=== PATIENT | female | born 1975 | race Caucasian/White ===

== ENCOUNTER → 2017-07-02 10:14 | Outpatient (CLI) | payer MEDICAID, SELFPAY ==
[2017-07-02 12:25] LABS: AST(SGOT) 26 U/L (15-37); Alanine Aminotransfer ALT/SGPT 49 U/L (13-56); Albumin, Serum 3.8 g/dL (3.2-5.0); Alkaline Phosphatase 92 U/L (45-117); Anion Gap 11 (5-15); BUN 15 mg/dL (7-18); BUN/Creat Ratio 20.7 RATIO (10-20); Bilirubin, Direct 0.08 mg/dL (0.00-0.30); Calcium,Total 9.1 mg/dL (8.5-10.1); Chloride 103 mmol/L (98-107); Cholesterol 125 mg/dL (200); Creatinine, Serum 0.72 mg/dL (0.55-1.02); EST Glomerular Filtration Rate 95 mL/min (>60); Est Glom Filt Rate - Afr Amer 115 mL/min (>60); Globulin 4.6 g/dL (2.2-4.2); Glucose 97 mg/dL (74-106); High Density Lipoprotein 24 mg/dL; Potassium 4.1 mmol/L (3.5-5.1); Protein, Total 8.4 g/dL (6.4-8.2); Sodium Level 137 mmol/L (136-145); Triglycerides 73 mg/dL; Very Low Density Lipoprotein 15 mg/dL (5-40)
[2017-07-02 14:20] LABS: Microalbumin,Random Urine 5.8 mg/L (NO RANGE EST.)
== END ==
PROVIDERS: Family Provider Family Medicine; PCP Family Medicine; Visit Provider Family Medicine
DX: E11.9 Type 2 diabetes mellitus without complications (principal)
CPT/HCPCS: 36415; 80048; 80061; 80076; 82043; 82570

== ENCOUNTER → 2017-10-24 08:55 | Outpatient (CLI) | payer MEDICAID, SELFPAY ==
--- NOTE | 2017-10-24 09:03 | RAD_ITS ---
STUDY: X-RAY - ABDOMEN/PELVIS REASON FOR EXAM: Female, 41 years old. Left upper quadrant pain. TECHNIQUE: AP supine and upright views of the abdomen and pelvis. COMPARISON: 01/31/2014 FINDINGS: There are surgical clips in the right upper quadrant, consistent with prior cholecystectomy. There are surgical clips in the pelvis, consistent with tubal ligation. There is no bowel obstruction. There is air and stool to the level of the rectum. There is no free air. The visualized osseous structures are within normal limits. RAD/Abd Inc Decub and/or Erect IMPRESSION: No bowel obstruction. Electronically Signed: Andrea Cosby, at 23:51 EDT Tel , Service support ,
[2017-10-24 09:59] LABS: Absolute Lymphocyte Count 4.52 X10^3/ul (0.83-4.51); Absolute Neutrophil Count 5.8 X10^3/uL (2.0-7.7); Basophil# 0.08 X10^3/uL; Basophil% 0.7 % (0-1); Eosinophil# 0.09 X10^3/uL; Eosinophils% 0.8 % (0-5); Hematocrit 41.2 % (37-47); Hemoglobin 13.7 g/dl (12.0-15.0); Lymphocyte # 4.52 X10^3/ul (4.0); Lymphocyte % 40.1 % (19-41); Mean Corp Hgb Conc 33.3 g/gl (32-36); Mean Corpuscular Hgb 26.7 pg (27.0-32.0); Mean Corpuscular Volume 80.2 fL (81-99); Mean Platelet Vol. 10.9 fl (6.2-12.0); Monocyte# 0.73 X10^3/uL; Monocyte% 6.5 % (0-10); Neutrophil # 5.78 X10^3/uL (2.7-7.7); Neutrophil % 51.2 % (47-70); Platelet Count 329 K/mm3 (150-450); RBC Distribution Width CV 14.3 % (11.6-14.6); RBC Distribution Width SD 40.9 fl (35.1-43.9); Red Blood Count 5.14 M/mm3 (4.2-5.4); White Blood Count 11.3 K/mm3 (4.4-11.0)
[2017-10-24 10:00] LABS: POSITIVE COUNT NO; POSITIVE DIFFERENTIAL NO; POSITIVE MORPHOLOGY NO
[2017-10-24 10:23] LABS: Anion Gap 11 (5-15); BUN 11 mg/dL (7-18); BUN/Creat Ratio 15.5 RATIO (10-20); Calcium,Total 8.8 mg/dL (8.5-10.1); Chloride 105 mmol/L (98-107); Creatinine, Serum 0.71 mg/dL (0.55-1.02); EST Glomerular Filtration Rate 97 mL/min (>60); Est Glom Filt Rate - Afr Amer 117 mL/min (>60); Glucose 98 mg/dL (74-106); Potassium 4.2 mmol/L (3.5-5.1); Sodium Level 139 mmol/L (136-145)
== END ==
PROVIDERS: Family Provider Family Medicine; PCP Family Medicine; Visit Provider Family Medicine
DX: R10.9 Unspecified abdominal pain (principal)
CPT/HCPCS: 36415; 74019; 80048; 85025

== ENCOUNTER → 2017-11-21 10:08 | Outpatient (CLI) | payer MEDICAID, SELFPAY ==
--- NOTE | 2017-11-21 10:11 | US_ITS ---
STUDY: THYROID ULTRASOUND REASON FOR EXAM: Female, 41 years old. Follow-up thyroid nodule, status post left thyroidectomy TECHNIQUE: Ultrasound evaluation of the thyroid was performed with real-time and static baxter-scale imaging. COMPARISON: Previous study of 10/01/2016 FINDINGS: RIGHT LOBE: The right lobe of the thyroid gland measures 4.9 x 2.3 x 2.1 cm. There is a homogeneous echotexture. There is a mixed echogenic overall hypoechoic nodule of the upper pole measuring 1.0 x 1.0 x 0.7 cm. There is moderate internal vascularity of this nodule. LEFT LOBE: The left thyroid lobe is not visualized in accordance with history of left thyroidectomy. ISTHMUS: The isthmus measures 4 mm . The regional lymph nodes are normal. US/Thyroid IMPRESSION: Status post left thyroidectomy. Mixed echogenic overall hypoechoic nodule of the upper pole of the right thyroid lobe measuring 1.0 x 1.0 x 0.7 cm, appearing similar to the previous study. Follow-up ultrasound in one year is recommended. Electronically Signed: Patel Iyer MD at 20:43 EDT , Service support ,
== END ==
PROVIDERS: Family Provider Family Medicine; PCP Family Medicine; Visit Provider Family Medicine
DX: E04.1 Nontoxic single thyroid nodule (principal)
CPT/HCPCS: 76536

== ENCOUNTER → 2017-12-31 10:28 | Outpatient (CLI) | payer MEDICAID, SELFPAY ==
[2017-12-31 12:05] LABS: Anion Gap 10 (5-15); BUN 10 mg/dL (7-18); BUN/Creat Ratio 14.4 RATIO (10-20); Chloride 104 mmol/L (98-107); Cholesterol 117 mg/dL (200); Creatinine, Serum 0.69 mg/dL (0.55-1.02); EST Glomerular Filtration Rate 100 mL/min (>60); Est Glom Filt Rate - Afr Amer 121 mL/min (>60); Glucose 139 mg/dL (74-106); High Density Lipoprotein 23 mg/dL; Sodium Level 136 mmol/L (136-145); Thyroid Stim Hormone (TSH) 1.83 uIU/mL (0.358-3.74); Triglycerides 95 mg/dL; Very Low Density Lipoprotein 19 mg/dL (5-40)
== END ==
PROVIDERS: Family Provider Family Medicine; PCP Family Medicine; Visit Provider Family Medicine
DX: E11.9 Type 2 diabetes mellitus without complications (principal); E04.1 Nontoxic single thyroid nodule
CPT/HCPCS: 36415; 80048; 80061; 84443

== ENCOUNTER → 2018-02-16 10:55 | Outpatient (CLI) | payer MEDICAID, SELFPAY | PROVIDERS: Family Provider Family Medicine; PCP Family Medicine; Visit Provider Nurse Practitioner Family | DX: R30.0 Dysuria (principal) | CPT/HCPCS: 87086; 87088; 87186 ==

== ENCOUNTER → 2018-07-13 13:06 | Outpatient (CLI) | payer MEDICAID, SELFPAY ==
--- NOTE | 2018-07-10 16:00 | LES_PTH ---
PATIENT: ANGLEA BUI LOC: [facility] U#:[id number] AGE/SX: 49/F ROOM: RE07/13/[address]: Dr. Luciano Nails MD : 1975 BED: DIS: SPEC #: [id number] RECD: 07/10/18 17:28 STATUS: RAY ALY #: [id number] JABIER: 07/10/18 16:[address]: Luciano Nails DEPT: SURGICAL PATHOLOGY RECD BY: Jose Daniel Martinez Tissues: Skin of head, NOS Procedures: Surgery Specimen Level IV HEADER OPERATION: Excision PRE-OP DIAGNOSIS: Suspicious skin lesion TISSUE SUBMITTED: Head lesion MICROSCOPIC DIAGNOSIS Skin lesion of head, biopsy: Consistent with benign fibroepithelial polyp. AM:gerber 07/14/18 MICROSCOPIC DESCRIPTION Slides are reviewed. GROSS DESCRIPTION Received in fixative is one container labeled with the patient's name and designated head lesion. The specimen consists of a piece of quesada-white skin measuring 0.3 x 0.2 x 0.1 cm. The entire specimen is submitted in one cassette. / SJ:rg 07/13/18 TC:5 CPT: 93933
== END ==
PROVIDERS: Family Provider Family Medicine; PCP Family Medicine; Referring Provider Family Medicine; Visit Provider Family Medicine
DX: L98.8 Other specified disorders of the skin and subcutaneous tissue (principal)
CPT/HCPCS: 88305

== ENCOUNTER → 2019-03-08 11:50 | Outpatient (CLI) | payer MEDICAID, SELFPAY ==
[2019-03-08 13:19] LABS: Potassium 3.2 mmol/L (3.5-5.1)
== END ==
PROVIDERS: Family Provider Family Medicine; PCP Family Medicine; Referring Provider Registered Nurse Nephrology; Visit Provider Registered Nurse Nephrology
DX: K90.9 Intestinal malabsorption, unspecified (principal)
CPT/HCPCS: 36415; 84132

== ENCOUNTER → 2019-04-19 09:37 | Outpatient (CLI) | payer MEDICAID, SELFPAY ==
[2019-04-19 12:12] LABS: Hemoglobin 13.5 g/dL (12.0-15.0); Mean Corp Hgb Conc 31.4 g/dL (32-36); Mean Corpuscular Hgb 27.2 pg (27.0-32.0); Mean Corpuscular Volume 86.5 fL (81-99); Mean Platelet Vol. 11.2 fl (6.2-12.0); Platelet Count 274 K/mm3 (150-450); RBC Distribution Width CV 14.9 % (11.6-14.6); Red Blood Count 4.97 M/mm3 (4.2-5.4)
[2019-04-19 12:26] LABS: Vitamin B12 1810 pg/mL (211-911)
[2019-04-19 13:10] LABS: ALB/GLOB Ratio 0.9 RATIO (0.9-2.4); AST(SGOT) 28 U/L (15-37); Alanine Aminotransfer ALT/SGPT 49 U/L (13-56); Albumin, Serum 3.6 g/dL (3.2-5.0); Alkaline Phosphatase 90 U/L (45-117); Anion Gap 6 (5-15); BUN 9 mg/dL (7-18); BUN/Creat Ratio 15.1 RATIO (10-20); Calcium,Total 8.8 mg/dL (8.5-10.1); Chloride 108 mmol/L (98-107); EST Glomerular Filtration Rate 118 mL/min (>60); Est Glom Filt Rate - Afr Amer 143 mL/min (>60); Ferritin 28 ng/mL (8-252); Globulin 3.8 g/dL (2.2-4.2); Glucose 89 mg/dL (74-106); Iron 45 ug/dL (50-170); Magnesium 2.1 mg/dL (1.6-2.6); Potassium 3.8 mmol/L (3.5-5.1); Protein, Total 7.4 g/dL (6.4-8.2); Sodium Level 140 mmol/L (136-145)
== END ==
PROVIDERS: Family Provider Family Medicine; PCP Family Medicine; Visit Provider Registered Nurse Nephrology
DX: G47.33 Obstructive sleep apnea (adult) (pediatric) (principal); Z99.89 Dependence on other enabling machines and devices; E61.2 Magnesium deficiency; E66.01 Morbid (severe) obesity due to excess calories; Z68.42 Body mass index [BMI] 45.0-49.9, adult; K90.9 Intestinal malabsorption, unspecified; E61.7 Deficiency of multiple nutrient elements
CPT/HCPCS: 36415; 80053; 82607; 82728; 82746; 83540; 83735; 84630; 85027

== ENCOUNTER → 2019-07-05 14:42 | Outpatient (CLI) | payer MEDICAID, SELFPAY ==
[2019-07-05 16:08] LABS: Hemoglobin 13.8 g/dL (12.0-15.0); Mean Corp Hgb Conc 33.7 g/dL (32-36); Mean Corpuscular Hgb 29.8 pg (27.0-32.0); Mean Corpuscular Volume 88.6 fL (81-99); Mean Platelet Vol. 11.2 fl (6.2-12.0); Platelet Count 289 K/mm3 (150-450); RBC Distribution Width CV 13.6 % (11.6-14.6); RBC Distribution Width SD 43.8 fl (35.1-43.9); Red Blood Count 4.63 M/mm3 (4.2-5.4); White Blood Count 10.2 K/mm3 (4.4-11.0)
[2019-07-05 16:27] LABS: Vitamin B12 1082 pg/mL (211-911); Vitamin D,25 Hydroxy 62.9 ng/mL
[2019-07-05 17:09] LABS: BUN 12 mg/dL (7-18); Creatinine, Serum 0.64 mg/dL (0.55-1.02); Glucose 80 mg/dL (74-106)
[2019-07-05 17:10] LABS: AST(SGOT) 20 U/L (15-37); Alanine Aminotransfer ALT/SGPT 27 U/L (13-56); Albumin, Serum 3.8 g/dL (3.2-5.0); Alkaline Phosphatase 87 U/L (45-117); Anion Gap 9 (5-15); BUN/Creat Ratio 18.7 RATIO (10-20); Calcium,Total 9.1 mg/dL (8.5-10.1); Chloride 109 mmol/L (98-107); Cholesterol 120 mg/dL (200); EST Glomerular Filtration Rate 108 mL/min (>60); Est Glom Filt Rate - Afr Amer 131 mL/min (>60); Ferritin 36 ng/mL (8-252); Globulin 3.9 g/dL (2.2-4.2); High Density Lipoprotein 38 mg/dL; Iron 47 ug/dL (50-170); Potassium 3.5 mmol/L (3.5-5.1); Protein, Total 7.7 g/dL (6.4-8.2); Sodium Level 142 mmol/L (136-145); Triglycerides 73 mg/dL; Very Low Density Lipoprotein 15 mg/dL (5-40)
[2019-07-08 11:30] LABS: Zinc, Plasma or Serum 81 ug/dL (56-134)
== END ==
PROVIDERS: PCP Family Medicine; Referring Provider Registered Nurse Nephrology; Visit Provider Registered Nurse Nephrology
DX: K90.9 Intestinal malabsorption, unspecified (principal); G47.33 Obstructive sleep apnea (adult) (pediatric); R53.83 Other fatigue; E61.7 Deficiency of multiple nutrient elements; K21.9 Gastro-esophageal reflux disease without esophagitis; E66.01 Morbid (severe) obesity due to excess calories; Z68.41 Body mass index [BMI] 40.0-44.9, adult
CPT/HCPCS: 36415; 80053; 80061; 82306; 82607; 82728; 82746; 83540; 83735; 84630; 85027

== ENCOUNTER → 2019-09-27 14:42 | Outpatient (CLI) | payer OTHER, SELFPAY ==
[2019-09-27 15:11] LABS: Hematocrit 41.8 % (37-47); Hemoglobin 13.7 g/dL (12.0-15.0); Mean Corp Hgb Conc 32.8 g/dL (32-36); Mean Corpuscular Hgb 30.2 pg (27.0-32.0); Mean Corpuscular Volume 92.1 fL (81-99); Mean Platelet Vol. 10.4 fl (6.2-12.0); Platelet Count 317 K/mm3 (150-450); RBC Distribution Width CV 12.6 % (11.6-14.6); RBC Distribution Width SD 42.5 fl (35.1-43.9); Red Blood Count 4.54 M/mm3 (4.2-5.4); White Blood Count 10.9 K/mm3 (4.4-11.0)
[2019-09-27 15:39] LABS: Ferritin 37 ng/mL (8-252); Iron 45 ug/dL (50-170)
== END ==
PROVIDERS: PCP Family Medicine; Referring Provider Registered Nurse Nephrology; Visit Provider Registered Nurse Nephrology
DX: E61.1 Iron deficiency (principal); K90.9 Intestinal malabsorption, unspecified
CPT/HCPCS: 36415; 82728; 83540; 85027

== ENCOUNTER → 2019-12-07 14:05 | Outpatient (CLI) | payer OTHER, MEDICAID, SELFPAY ==
--- NOTE | 2019-12-07 14:08 | BI_ITS ---
MAMMOGRAPHY - BILATERAL SCREENING 3-D TOMOSYNTHESIS REASON FOR EXAM: Female, 44 years old. Routine screening PERTINENT HISTORY: FM HX PAT GMA 40-50''S, LOST 115#(GASTRIC BYPASS SX , PT SAYS SHE HAS FELT A LUMP RT LATERAL BREAST THAT DR THOUGHT WAS FCB. TECHNIQUE: 2-D mammograms and 3-D Tomosynthesis of the breast (s) were performed. CAD was performed. COMPARISON: 2015 FINDINGS: The breast composition is composed of scattered fibroglandular density. Scattered benign calcifications are seen. No dense spiculated masses or suspicious microcalcifications are identified. No architectural distortion is identified. There is no skin thickening or retraction. There has been no significant change since the prior study. BI/SCREEN MAMM (CAD) W/EMRE BILAT IMPRESSION: No mammographic signs of malignancy. Routine yearly mammograms recommended. ASSESSMENT CATEGORY: BIRADS Category 2: Benign. A letter regarding these results will be sent to the patient by the facility within 30 days. FOLLOW UP RECOMMENDATION: Yearly follow up mammogram recommended. (A) Approximately 10% of breast cancers are not detected by mammography. A normal mammogram should not delay biopsy of a clinically suspicious abnormality. Electronically Signed: Yony Brooks MD at 17:16 EDT , Service support ,
== END ==
PROVIDERS: PCP Family Medicine; Referring Provider Family Medicine; Visit Provider Family Medicine
DX: Z12.31 Encounter for screening mammogram for malignant neoplasm of breast (principal)
CPT/HCPCS: 77063; 77067

== ENCOUNTER → 2019-12-30 06:37 | Outpatient (CLI) | payer OTHER, SELFPAY ==
[2019-12-30 08:13] LABS: Iron 89 ug/dL (50-170)
== END ==
PROVIDERS: PCP Family Medicine; Referring Provider Registered Nurse Nephrology; Visit Provider Registered Nurse Nephrology
DX: E61.1 Iron deficiency (principal); K90.9 Intestinal malabsorption, unspecified
CPT/HCPCS: 36415; 83540

== ENCOUNTER → 2020-03-03 07:58 | Outpatient (CLI) | payer OTHER, MEDICAID, SELFPAY ==
[2020-03-03 09:08] LABS: Hematocrit 45.7 % (37-47); Hemoglobin 15.2 g/dL (12.0-15.0); Mean Corp Hgb Conc 33.3 g/dL (32-36); Mean Corpuscular Hgb 30.8 pg (27.0-32.0); Mean Corpuscular Volume 92.7 fL (81-99); Mean Platelet Vol. 10.8 fl (6.2-12.0); Platelet Count 275 K/mm3 (150-450); RBC Distribution Width CV 12.3 % (11.6-14.6); RBC Distribution Width SD 41.9 fl (35.1-43.9); Red Blood Count 4.93 M/mm3 (4.2-5.4); White Blood Count 7.1 K/mm3 (4.4-11.0)
[2020-03-03 10:11] LABS: Vitamin B12 824 pg/mL (211-911); Vitamin D,25 Hydroxy 63.6 ng/mL
[2020-03-03 10:36] LABS: AST(SGOT) 11 U/L (15-37); Alanine Aminotransfer ALT/SGPT 21 U/L (13-56); Albumin, Serum 3.5 g/dL (3.2-5.0); Alkaline Phosphatase 73 U/L (45-117); Anion Gap 3 (5-15); BUN 11 mg/dL (7-18); Calcium,Total 8.6 mg/dL (8.5-10.1); Chloride 108 mmol/L (98-107); Cholesterol 132 mg/dL (200); Creatinine, Serum 0.52 mg/dL (0.55-1.02); EST Glomerular Filtration Rate 136 mL/min (>60); Est Glom Filt Rate - Afr Amer 165 mL/min (>60); Ferritin 86 ng/mL (8-252); Globulin 3.6 g/dL (2.2-4.2); Glucose 91 mg/dL (74-106); High Density Lipoprotein 48 mg/dL; Iron 101 ug/dL (50-170); Magnesium 2.2 mg/dL (1.6-2.6); Potassium 3.9 mmol/L (3.5-5.1); Protein, Total 7.1 g/dL (6.4-8.2); Sodium Level 139 mmol/L (136-145); Triglycerides 67 mg/dL; Very Low Density Lipoprotein 13 mg/dL (5-40)
[2020-03-09 05:49] LABS: Zinc, Plasma or Serum 69 ug/dL (56-134)
== END ==
PROVIDERS: PCP Family Medicine; Referring Provider Registered Nurse Nephrology; Visit Provider Registered Nurse Nephrology
DX: E61.1 Iron deficiency (principal); K90.9 Intestinal malabsorption, unspecified; E87.6 Hypokalemia; E61.2 Magnesium deficiency; E61.7 Deficiency of multiple nutrient elements; E66.01 Morbid (severe) obesity due to excess calories; Z68.42 Body mass index [BMI] 45.0-49.9, adult
CPT/HCPCS: 36415; 80053; 80061; 82306; 82607; 82728; 82746; 83540; 83735; 84630; 85027

== ENCOUNTER → 2020-04-10 22:17 | Outpatient (CLI) | payer OTHER, MEDICAID, SELFPAY | PROVIDERS: PCP Family Medicine; Referring Provider Internal Medicine Pulmonary Disease; Visit Provider Internal Medicine Pulmonary Disease | DX: G47.33 Obstructive sleep apnea (adult) (pediatric) (principal) | CPT/HCPCS: 95810 ==

== ENCOUNTER → 2020-12-08 07:04 | Outpatient (CLI) | payer OTHER, MEDICAID, SELFPAY ==
[2020-12-08 07:36] LABS: Hematocrit 45.4 % (37-47); Hemoglobin 14.9 g/dL (12.0-15.0); Mean Corp Hgb Conc 32.8 g/dL (32-36); Mean Corpuscular Hgb 30.2 pg (27.0-32.0); Mean Corpuscular Volume 92.1 fL (81-99); Mean Platelet Vol. 10.1 fl (6.2-12.0); Platelet Count 306 K/mm3 (150-450); RBC Distribution Width CV 12.1 % (11.6-14.6); RBC Distribution Width SD 41.2 fl (35.1-43.9); Red Blood Count 4.93 M/mm3 (4.2-5.4); White Blood Count 6.7 K/mm3 (4.4-11.0)
[2020-12-08 08:36] LABS: ALB/GLOB Ratio 1.1 RATIO (0.9-2.4); AST(SGOT) 19 U/L (15-37); Alanine Aminotransfer ALT/SGPT 30 U/L (13-56); Albumin, Serum 3.9 g/dL (3.2-5.0); Alkaline Phosphatase 72 U/L (45-117); Anion Gap 6 (5-15); BUN 9 mg/dL (7-18); BUN/Creat Ratio 19.2 RATIO (10-20); Calcium,Total 8.9 mg/dL (8.5-10.1); Chloride 106 mmol/L (98-107); Cholesterol 155 mg/dL (200); Creatinine, Serum 0.47 mg/dL (0.55-1.02); EST Glomerular Filtration Rate 154 mL/min (>60); Est Glom Filt Rate - Afr Amer 187 mL/min (>60); Ferritin 156 ng/mL (8-252); Globulin 3.7 g/dL (2.2-4.2); Glucose 94 mg/dL (74-106); High Density Lipoprotein 57 mg/dL; Iron 84 ug/dL (50-170); Potassium 3.9 mmol/L (3.5-5.1); Protein, Total 7.6 g/dL (6.4-8.2); Sodium Level 139 mmol/L (136-145); Triglycerides 82 mg/dL; Very Low Density Lipoprotein 16 mg/dL (5-40)
[2020-12-08 10:00] LABS: Vitamin B12 1516 pg/mL (211-911); Vitamin D,25 Hydroxy 77.1 ng/mL
[2020-12-13 20:26] LABS: Vitamin B1, Thiamine 165.6 nmol/L (66.5-200.0); Zinc, Plasma or Serum 104 ug/dL (44-115)
== END ==
PROVIDERS: PCP Family Medicine
DX: K90.89 Other intestinal malabsorption (principal); E61.7 Deficiency of multiple nutrient elements
CPT/HCPCS: 80053; 80061; 82306; 82607; 82728; 82746; 83540; 83735; 84425; 84630; 85027

== ENCOUNTER → 2020-12-18 15:33 | Outpatient (CLI) | payer OTHER, MEDICAID, SELFPAY ==
--- NOTE | 2020-12-18 15:36 | RAD_ITS ---
INDICATION: left hip pain EXAMINATION/TECHNIQUE: X-RAY - LEFT XR Hip Unilateral with Pelvis when performed; 2-3 Views 3 VIEWS COMPARISON: None. FINDINGS: SOFT TISSUES: No soft tissue swelling or gas. No radiopaque foreign body. BONES/JOINTS: No acute fracture or subluxation.. Normal alignment. Preservation of the joint space.. No sclerotic or destructive changes observed. RAD/Hip Min 2 Views (Portable) IMPRESSION: Negative. Electronically Signed: Mark Teixeira MD at 8:46 EDT Tel , Service support ,
== END ==
PROVIDERS: PCP Internal Medicine; Referring Provider Nurse Practitioner Family; Visit Provider Nurse Practitioner Family
DX: Z00.00 Encounter for general adult medical examination without abnormal findings (principal); M25.552 Pain in left hip; G89.29 Other chronic pain
CPT/HCPCS: 73502

== ENCOUNTER → 2020-12-19 14:14 | Outpatient (CLI) | payer OTHER, MEDICAID, SELFPAY ==
--- NOTE | 2020-12-19 14:16 | US_ITS ---
INDICATION: THYROID NODULE EXAMINATION: Ultrasound US Thyroid (eg thyroid, parathyroid, parotid) TECHNIQUE: Botello scale and color doppler imaging was performed of the thyroid gland. COMPARISON: 11/21/2017. FINDINGS: RIGHT THYROID LOBE: The right lobe demonstrates homogenous echogenicity with the unremarkable vascularity, unremarkable size, shape and configuration. Two nodules are visualized within the right lobe.. A mixed cystic/solid lesion with thick internal septations and soft tissue along the periphery is visualized in the mid pole measuring 1.9 x 1.6 x 1.1 cm. This nodule is more wider than taller and demonstrates no evidence of calcifications. A complex solid/cystic lesion is visualized in the mid to lower pole demonstrating very thick internal septations and selective tissue components and measures 0.8 x 0.7 x 0.4 cm. Internodular vascularity visualized on Doppler imaging. The right lobe of the thyroid gland is enlarged in size measuring 5.3 x 2.7 x 2.6 cm. LEFT THYROID LOBE: The left lobe of the thyroid gland is surgically absent. ISTHMUS: 0.3 cm.. No thyroid nodules are present. US/Thyroid IMPRESSION: The right lobe of the thyroid gland demonstrates increase in size in comparison to the prior study. 2 cystic/solid lesions visualized in the right lobe of the thyroid gland that were not seen on the prior study. Electronically Signed: Mark Teixeira MD at 16:26 EDT Tel , Service support ,
== END ==
PROVIDERS: PCP Internal Medicine; Referring Provider Nurse Practitioner Family; Visit Provider Nurse Practitioner Family
DX: E04.1 Nontoxic single thyroid nodule (principal)
CPT/HCPCS: 76536

== ENCOUNTER → 2021-01-08 09:12 | Outpatient (CLI) | payer OTHER, MEDICAID, SELFPAY ==
--- NOTE | 2021-01-08 | FLU_PTH ---
PATIENT: ANGELA BUI LOC: [facility] #:[id number] AGE/SX: 49/F ROOM: RE01/08/[address]: Dr. Jose Suresh MD : 1975 BED: DIS: SPEC #: [id number] RECD: 01/08/21 12:58 STATUS: RAY EVERETTErik #: [id number] JABIER: 01/08/21 00:[address]: Jose Suresh DEPT: CYTOLOGY RECD BY: Harish Salvador ENTERED: 01/08/21 12:58 SP TYPE: Fluid OTHR DR: Dr. Hermelinda Castillo MD Tissues: A - Thyroid gland, NOS B - Thyroid gland, NOS Procedures: Special Stain Group II Surgery Specimen Level IV Cytospin Fluid HEADER OPERATION: Fine needle aspiration, right thyroid nodule PRE-OP DIAGNOSIS: Right thyroid nodule TISSUE SUBMITTED: A ? Right thyroid nodule fluid, B ? Right thyroid nodule slides x6 DIAGNOSIS CYTOLOGY A. Fine needle aspiration, right thyroid nodule fluid (cytospin and cell block): Adequate for evaluation. Negative, consistent with benign follicular nodule with cystic change. B. Fine needle aspiration, right thyroid nodule (smears): Adequate for evaluation. Negative, consistent with benign follicular nodule with cystic change. AM:gerber 01/09/2021 CYTOLOGY STUDY Slides are reviewed. CYTOLOGY GROSS A - Received is 30 ml of red cloudy fluid labeled with the patient's name and and designated per the requisition as right thyroid. Submitted for cytology preparation including cell block. B - Received are six smears labeled with the patient's name and designated per the requisition as right thyroid. Submitted for staining. / gerber 01/08/2021 TC:5 CPT: 46288, 74987, 52122 ADDENDUM ADDENDUM ADDENDUM ADDENDUM ADDENDUM ADDENDUM ADDENDUM ADDENDUM ADDENDUM ADDENDUM ADDENDUM 04/18/2022 09:15 ADDENDUM 04/18/2022 09:15 ADDENDUM 04/18/2022 09:15 ADDENDUM 04/18/2022 09:15 ADDENDUM 04/18/2022 09:15 This addendum is added to incorporate an outside pathology consultation report. The case was examined at [facility] (#[id number]) and the following diagnosis was rendered. Right thyroid nodule fluid, fine needle aspiration: Benign. Consistent with colloid nodule with cystic changes. Please see complete above mentioned consultation report in EMR
[2021-01-08 12:34] LABS: Thyroid Stim Hormone (TSH) 0.88 uIU/mL (0.358-3.74)
== END ==
PROVIDERS: PCP Internal Medicine; Referring Provider Surgery; Visit Provider Surgery
DX: E04.1 Nontoxic single thyroid nodule (principal); Z90.09 Acquired absence of other part of head and neck
CPT/HCPCS: 36415; 84443; 88108; 88305; 88313

== ENCOUNTER → 2021-02-12 15:55 | Outpatient (CLI) | payer OTHER, MEDICAID, SELFPAY ==
--- NOTE | 2021-02-12 15:58 | BI_ITS ---
MAMMOGRAPHY - BILATERAL SCREENING REASON FOR EXAM: Female, 45 years old. Routine annual screening examination. PERTINENT HISTORY: Grandmother with breast cancer. TECHNIQUE: Digital bilateral breast emre (3D mammographic acquisition) in the CC and MLO projections. 2-D mediolateral oblique (MLO) and craniocaudad (CC) views of both breasts were obtained. CAD: Full Field Digital Mammography with Computer Added Detection was performed. COMPARISON: Comparison is made with prior study dated 12/07/2019 and 03/24/2015. FINDINGS: Breast Composition: The breasts are heterogeneously dense, which may obscure small masses. There are no dominant masses or suspicious calcifications. Stable small benign-appearing bilateral axillary lymph nodes. No other significant abnormalities are identified. There has been no significant change since the prior study. BI/SCRN MAMM (CAD)W/EMRE BILAT IMPRESSION: Stable bilateral screening mammogram. Yearly follow-up mammogram recommended. (A) ASSESSMENT CATEGORY: BIRADS Category 2: Benign. A letter regarding these results will be sent to the patient by the facility within 30 days. Approximately 10% of breast cancers are not detected by mammography. A normal mammogram should not delay biopsy of a clinically suspicious abnormality. [id number] Electronically Signed: Jerome Alicea MD at 8:08 EDT , Service support ,
== END ==
PROVIDERS: PCP Internal Medicine; Referring Provider Internal Medicine; Visit Provider Internal Medicine
DX: Z12.31 Encounter for screening mammogram for malignant neoplasm of breast (principal); Z80.3 Family history of malignant neoplasm of breast
CPT/HCPCS: 77063; 77067

== ENCOUNTER 2021-04-03 10:18 | Emergency (ER) | payer OTHER, MEDICAID, SELFPAY ==
[2021-04-03 10:18] VITALS: BP 150/92; PULSE 76; RESP 16; TEMP 36.7; O2SAT 99; BMI 34.3
--- NOTE | 2021-04-03 10:53 | EKG12_ITS ---
Test Reason : NUMBNESS/TINGLING Blood Pressure : / mmHG Vent. Rate : 059 BPM Atrial Rate : 059 BPM P-R Int : 176 ms QRS Dur : 090 ms QT Int : 414 ms P-R-T Axes : 044 015 014 degrees QTc Int : 409 ms Sinus bradycardia Otherwise normal ECG No previous ECGs available Confirmed by ALEK ROSENBERG, KVNG ([id number]), makeup editor JASON GUIDRY ([id number]) on 04/17/2021 1:41:03 PM Referred By: MORIS Confirmed By:KVNG GASTON MD
[2021-04-03 10:59] LABS: Absolute Lymphocyte Count 3.47 X10^3/uL (0.83-4.51); Absolute Neutrophil Count 4.8 X10^3/uL (2.0-7.7); Basophil# 0.12 X10^3/uL; Basophil% 1.3 % (0-1); Eosinophil# 0.12 X10^3/uL; Eosinophils% 1.3 % (0-5); Hematocrit 44.5 % (37-47); Hemoglobin 14.9 g/dL (12.0-15.0); Lymphocyte # 3.47 X10^3/ul (0.83-4.51); Mean Corp Hgb Conc 33.5 g/dL (32-36); Mean Corpuscular Hgb 30.5 pg (27.0-32.0); Mean Platelet Vol. 10.4 fl (6.2-12.0); Monocyte# 0.59 X10^3/uL; Monocyte% 6.5 % (0-10); NRBC Flagged by Analyzer 0 % (0-5); Neutrophil % 52.6 % (47-70); Platelet Count 333 K/mm3 (150-450); RBC Distribution Width CV 12.1 % (11.6-14.6); RBC Distribution Width SD 40.2 fl (35.1-43.9); Red Blood Count 4.89 M/mm3 (4.2-5.4); White Blood Count 9.1 K/mm3 (4.4-11.0)
--- NOTE | 2021-04-03 11:00 | RAD_ITS ---
STUDY: X-RAY CHEST REASON FOR EXAM: Female, 45 years old. Cough TECHNIQUE: Single AP portable view of the chest. COMPARISON: None. FINDINGS: EKG electrodes are seen. The lungs are clear and expanded. There is no demonstrated pleural abnormality. Normal size heart. Normal mediastinum and jay. Normal visualized pulmonary arteries. Normal visualized aortic arch and descending thoracic aorta. There are degenerative changes of the visualized thoracic spine. Normal visualized ribs, clavicles, and shoulders. There is no demonstrated abnormality of the visualized soft tissue structures of the upper abdomen. RAD/Chest 1 View (Portable) IMPRESSION: Normal x-ray examination of the chest. Electronically Signed: Jerome Alicea MD at 11:21 EST , Service support ,
[2021-04-03 11:15] LABS: AST(SGOT) 24 U/L (15-37); Alanine Aminotransfer ALT/SGPT 38 U/L (13-56); Albumin, Serum 3.8 g/dL (3.2-5.0); Alkaline Phosphatase 91 U/L (45-117); Anion Gap 5 (5-15); BUN 9 mg/dL (7-18); BUN/Creat Ratio 15.6 RATIO (10-20); Calcium,Total 9.2 mg/dL (8.5-10.1); Chloride 108 mmol/L (98-107); Creatinine, Serum 0.58 mg/dL (0.55-1.02); EST Glomerular Filtration Rate 121 mL/min (>60); Est Glom Filt Rate - Afr Amer 147 mL/min (>60); Globulin 3.7 g/dL (2.2-4.2); Glucose 105 mg/dL (74-106); Potassium 3.7 mmol/L (3.5-5.1); Protein, Total 7.5 g/dL (6.4-8.2); Sodium Level 139 mmol/L (136-145); Troponin-I HS < 3 pg/mL (3.0-54.0)
[2021-04-03 11:49] LABS: Mucous, Urine 0 SEEN /hpf (<or=2+); White Blood Cells 0 SEEN /hpf (0-5)
[2021-04-03 11:55] LABS: Color, Urine Yellow (Yellow); Glucose, Dipstick Normal (Normal); Ketone-Dipstick Negative (Negative); Leukocyte Esterase-Dipstick Negative /ul (Negative); Nitrite-Dipstick Negative (Negative); Occult Blood-Urine 25 /ul (Negative); Protein-Dipstick Negative (Negative); Specific Gravity, Urine 1.005 (1.002-1.030); Urine Bilirubin Dipstick Negative (Negative); Urine Clarity Sl. Cloudy (Clear); Urine Urobilinogen Normal (Normal)
--- NOTE | 2021-04-03 11:59 | EX.ED.DYSGE1 ---
HPI History of Present Illness Chief Complaint: Numb/Ting Informant: patient Onset/Context/Timing Onset: Days (3) Context: Gradual Onset Timing: Intermittent and Lasts (Minutes) Quality: Tingling Location: Lips, left arm, right arm, back Worsened by: Nothing Relieved by: Nothing Narrative Narrative: Patient presents with paresthesias that have been intermittent over the last 3 days. Patient states they come on and last for several minutes. Patient states they resolve spontaneously. Patient states she feels some tingling over her lips into her left arm. Patient states that occasionally goes into her right arm. Patient states it also goes into her back. Patient states nothing makes it better nothing makes it worse. Patient denies any chest pain. Patient denies any shortness of breath. Patient denies any nausea or vomiting. [facility] Medical History Breast cancer screening Chronic constipation Chronic left hip pain DM 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 Elevated blood pressure reading in office without diagnosis of hypertension Essential hypertension GERD (gastroesophageal reflux disease) Headache Hemangioma IBS (irritable bowel syndrome) Localized swelling on left hand Preventative health care Right thyroid nodule Home Medications calcium carbonate 600 mg calcium (1,500 mg) tablet 600 mg PO DAILY 09/25/20 [History Last Taken Unknown] cholecalciferol (vitamin D3) 10 mcg (400 unit) capsule 10 mcg PO DAILY 09/25/20 [History Last Taken Unknown] cyanocobalamin (vitamin B-12) 50 mcg tablet 50 mcg PO DAILY 09/25/20 [History Last Taken Unknown] loratadine 10 mg capsule 10 mg PO DAILY 09/25/20 [History Last Taken Unknown] magnesium 200 mg tablet 200 mg PO DAILY 09/25/20 [History Last Taken Unknown] multivitamin 1 tab PO DAILY 09/25/20 [History Last Taken Unknown] ascorbic acid (vitamin C) 1,000 mg tablet 1 g PO DAILY tab 12/15/20 [History Last Taken Unknown] ferrous sulfate 325 mg (65 mg iron) tablet 325 mg PO TID 12/15/20 [History Last Taken Unknown] potassium 99 mg PO DAILY 12/15/20 [History Last Taken Unknown] cyclobenzaprine 10 mg tablet 10 mg PO TID PRN #60 tab 02/05/21 [Rx Last Taken Unknown] linaclotide 290 mcg capsule 290 mcg PO DAILY #90 cap 02/05/21 [Rx Last Taken Unknown] Allergy/AdvReac Type Severity Reaction Status Date / Time NSAIDS (Non-Steroidal Allergy unknown Verified 04/03/21 10:20 Anti-Inflamma Penicillins Allergy Rash Verified 04/03/21 10:20 sulfamethoxazole Allergy rash Verified 04/03/21 10:20 [From Bactrim] trimethoprim [From Bactrim] Allergy rash Verified 04/03/21 10:20 Family History Aunt Cancer uterine cancer Brother Asthma Sister Autoimmune disorder Other Breast cancer Diabetes Heart disease Hypertension Myocardial infarction Parkinson disease Surgical History Gastric bypass status for obesity H/O section History of hysterectomy Hx of cholecystectomy S/P thyroid surgery Social History Smoking Status: Never smoker ROS ROS ED Constitutional Constitutional ED: Denies chills or fever(s) Eyes Eyes: Denies blurry vision or change in vision ENT ENT ED: Denies rhinorrhea or sore throat Cardiovascular Cardiovascular: Denies chest pain or palpitations Respiratory/Chest Respiratory/Chest: Denies cough or dyspnea Gastrointestinal Gastrointestinal: Denies nausea or vomiting Genitourinary Genitourinary ED: Denies dysuria or hematuria Musculoskeletal Musculoskeletal: Reports back pain; Denies neck pain Integumentary Denies abscess or rash Neurologic Neurologic: Reports paresthesias; Denies headache(s) or weakness Allergic/Immunologic Allergic/Immunologic ED: Denies mouth swelling or urticaria EXAM Physical Exam Const Vital Signs: 04/03/21 10:18 04/03/21 10:49 Temperature 98.1 F Temperature Source Temporal Pulse Rate 76 Respiratory Rate 16 Respiratory Pattern Normal Blood Pressure 150/92 H Blood Pressure Mean 111 Pulse Ox 99 Oxygen Delivery Method Room Air Positive well nourished and well developed General Appearance ED: well developed HEENT Reports moist mucous membranes Neck supple and no JVD Resp normal respiratory effort and clear to auscultation bilaterally Cardio regular rate, regular rhythm and no murmurs GI normal to inspection, nondistended, normoactive bowel sounds and non-tender Palpation: soft Extremity normal to inspection General Extremety ED: Negative for edema or tenderness General Extremity: Negative for edema Neuro oriented x3, CN's II-XII intact bilaterally and no sensory deficits noted Sensorium / Orientation: alert Motor Exam: strength 5/5 throughout Psych mental status grossly normal Skin no rashes or lesions noted MDM MDM MDM Narrative Medical decision making narrative: EKG was obtained. On my interpretation, it showed a normal sinus rhythm with a rate of 59. MS interval, QRS interval, and QTc intervals were all normal. [place] was normal. There are no acute ST or T wave changes. Portable 1 view chest x-ray was obtained. On my interpretation, lung larios are clear. There is normal cardiac silhouette. Bony thorax is normal. There is no acute process noted. Radiologist also interpreted the x-ray and agrees. CBC and comprehensive metabolic profile was obtained and was within normal limits. High-sensitivity troponin was normal. Urinalysis does not show any evidence of urinary tract infection. Patient was advised of her findings. Patient was instructed to continue to monitor her blood pressure at home. Patient was instructed to keep a log of her blood pressures and follow-up with her primary care physician in 5 to 7 days. Patient understood and was agreeable with the plan. All questions were answered. Lab Data Attestation: I reviewed the patient's lab results. Labs: Laboratory Results - last 24 hr 04/03/21 04/03/21 04/03/21 10:35 10:35 11:44 WBC 9.1 RBC 4.89 Hgb 14.9 Hct 44.5 MCV 91.0 MCH 30.5 MCHC 33.5 RDW Std Deviation 40.2 RDW Coeff of Cristin 12.1 Plt Count 333 MPV 10.4 Immature Gran % (Auto) 0.300 Neut % (Auto) 52.6 Lymph % (Auto) 38.0 [place] % (Auto) 6.5 Eos % (Auto) 1.3 Baso % (Auto) 1.3 H Absolute Neuts (auto) 4.8 Absolute Lymphs (auto) 3.47 Nucleated RBC % 0 Sodium 139 Potassium 3.7 Chloride 108 H Carbon Dioxide 26.0 Anion Gap 5 BUN 9 Creatinine 0.58 Estim Creat Clear Calc 108.00 Est GFR (MDRD) Af Amer 147 Est GFR (MDRD) Non-Af 121 BUN/Creatinine Ratio 15.6 Glucose 105 Calcium 9.2 Total Bilirubin 0.30 AST 24 ALT 38 Alkaline Phosphatase 91 Troponin I High Sens < 3 L Total Protein 7.5 Albumin 3.8 Globulin 3.7 Albumin/Globulin Ratio 1.0 Urine Color Yellow Urine Clarity Sl. Cloudy Urine pH 7.0 Ur Specific [place] 1.005 Urine Protein Negative Urine Glucose (UA) Normal Urine Ketones Negative Urine Occult Blood 25 H Urine Nitrite Negative Urine Bilirubin Negative Urine Urobilinogen Normal Ur Leukocyte Esterase Negative Urine RBC 0-5 SEEN Urine WBC 0 SEEN Ur Squamous Epith Cells 0-5 SEEN Urine Bacteria RARE Urine Mucus 0 SEEN Radiography Chest X-Ray - ED: 1 View, Read by ED Physician, Read by Radiologist and Normal Diagnostic Testing: Clinical Impression(s) from Imaging Studies Chest X-Ray 04/03/21 11:00 IMPRESSION: Normal x-ray examination of the chest. Electronically Signed: Jerome Alicea MD at 11:21 EST , Service support , EKG Initial EKG: Attestation: I personally reviewed and interpreted this EKG as follows: Interpretation: No Acute Injury Pattern and Sinus Bradycardia (59) Discharge Plan Triage Chief Complaint: Numb/Ting Other Complaint: Hypertension ED Provider: Tito Larson Dx/Rx/DC Orders Clinical Impression: Paresthesias Instructions: ED Paraesthesias Prescriptions: No Action Vitamin B-12 50 mcg tablet 50 mcg PO DAILY RF: 0 calcium carbonate [Calcium 600] 600 mg calcium (1,500 mg) tablet 600 mg PO DAILY RF: 0 cholecalciferol (vitamin D3) 10 mcg (400 unit) capsule 10 mcg PO DAILY RF: 0 multivitamin Tablet 1 tab PO DAILY RF: 0 magnesium 200 mg tablet 200 mg PO DAILY RF: 0 loratadine 10 mg capsule 10 mg PO DAILY RF: 0 ascorbic acid (vitamin C) 1,000 mg tablet 1 g PO DAILY RF: 0 ferrous sulfate 325 mg (65 mg iron) tablet 325 mg PO TID RF: 0 potassium 99 mg PO DAILY RF: 0 cyclobenzaprine 10 mg tablet 10 mg PO TID PRN (Reason: muscle spasm) Qty: 60 RF: 1 Linzess 290 mcg capsule 290 mcg PO DAILY Qty: 90 RF: 2 Primary Care Provider: Hermelinda Castillo Referrals: Hermelinda Castillo MD [Primary Care Provider] - 3-5 Days Disposition Disposition: Home, Self Care
[2021-04-03 12:01] LABS: Bacteria RARE /hpf (None Seen); Red Blood Cells-Urine 0-5 SEEN /hpf (0-5); Squamous Epithelial Cells - UA 0-5 SEEN /hpf (5-10)
[2021-04-03 12:33] VITALS: BP 140/92; PULSE 71; RESP 18; O2SAT 98
== END 2021-04-03 12:34 | disposition home or self-care (01) ==
PROVIDERS: Emergency Provider Emergency Medicine; PCP Internal Medicine
DX: R20.2 Paresthesia of skin (principal); E11.9 Type 2 diabetes mellitus without complications; I10 Essential (primary) hypertension; E04.1 Nontoxic single thyroid nodule; K58.1 Irritable bowel syndrome with constipation; M25.552 Pain in left hip; G89.29 Other chronic pain; K21.9 Gastro-esophageal reflux disease without esophagitis; Z79.899 Other long term (current) drug therapy
CPT/HCPCS: 71045; 80053; 81001; 84484; 85025; 93005; 99283; A4216

== ENCOUNTER 2021-05-04 14:02 | Outpatient (CLI) | payer OTHER, MEDICAID, SELFPAY | END 2021-05-04 23:59 | disposition short-term general hospital (02) | LOC: LABSPEC 14:04 | PROVIDERS: PCP Internal Medicine; Referring Provider Internal Medicine; Visit Provider Internal Medicine | DX: Z20.822 Contact with and (suspected) exposure to COVID-19 (principal); J06.9 Acute upper respiratory infection, unspecified | CPT/HCPCS: 87635; U0003; U0005 ==

== ENCOUNTER 2021-05-07 12:04 | Outpatient (RCR) | payer OTHER, MEDICAID, SELFPAY | END 2021-05-21 23:59 | LOC: EMPH 12:04 | PROVIDERS: PCP Internal Medicine; Visit Provider Family Medicine Geriatric Medicine | DX: Z03.818 Encounter for observation for suspected exposure to other biological agents ruled out (principal) | CPT/HCPCS: 87426 ==

== ENCOUNTER 2021-05-14 15:30 | Outpatient (CLI) | payer OTHER, MEDICAID, SELFPAY ==
--- NOTE | 2021-05-14 | FLU_PTH ---
PATIENT: NAGELA BUI LOC: [facility] U#:[id number] AGE/SX: 45/F ROOM: RE05/14/[address]: Dr. Jose Suresh MD : 1975 BED: DIS: 05/14/2021 SPEC #: [id number] RECD: 05/14/21 16:35 STATUS: RAY LU #: [id number] JABIER: 05/14/21 00:[address]: Jose Suresh DEPT: CYTOLOGY RECD BY: Chioma Gunderson ENTERED: 05/15/21 12:04 SP TYPE: Fluid OTHR DR: Dr. Hermelinda Castillo MD Tissues: Thyroid gland, NOS Procedures: Special Stain Group II Surgery Specimen Level IV Cytospin Fluid HEADER OPERATION: PRE-OP DIAGNOSIS: Right thyroid cyst/nodule x2 TISSUE SUBMITTED: Right thyroid nodule syringe x2 DIAGNOSIS CYTOLOGY Right thyroid nodule fluid, FNA (cytospin and cell block): Suggestive of benign follicular nodule with extensive cystic changes. See comment. SJ:gerber 05/16/2021 COMMENT The specimen predominantly consists of macrophages and a few clusters of benign follicular cells. The specimen is limited in evaluation due to lack of adequate number of follicular cells. Correlation with clinical, radiologic findings and appropriate follow up are necessary. Please make reference to previous specimens ([id number]) fine needle aspiration, right thyroid nodule with diagnosis of ?adequate for evaluation, negative, consistent with benign follicular nodule with cystic changes? 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 Case has been reviewed in consultation with Dr. Chávez who concurs with the above diagnosis. IDC:AM CYTOLOGY STUDY Slides are reviewed. CYTOLOGY GROSS Received is 3 ml of brown cloudy fluid labeled with the patient's name and and designated per the requisition as right thyroid. Submitted for cytology preparation including cell block. / gerber 05/15/2021 TC:5 CPT: 49853, 86351 ADDENDUM ADDENDUM ADDENDUM ADDENDUM ADDENDUM ADDENDUM ADDENDUM ADDENDUM ADDENDUM ADDENDUM ADDENDUM 04/18/2022 09:11 ADDENDUM 04/18/2022 09:11 ADDENDUM 04/18/2022 09:11 ADDENDUM 04/18/2022 09:11 ADDENDUM 04/18/2022 09:11 This addendum is added to incorporate an outside pathology consultation report. The case was examined at [facility] (#[id number]) and the following diagnosis was rendered. Right thyroid fluid, fine needle aspiration: Nondiagnostic aspirate sample. Cyst contents with rare groups of follicular cells Please see complete above mentioned consultation report in EMR
== END 2021-05-14 23:59 | disposition short-term general hospital (02) ==
LOC: LABSPEC 05-15 11:31
PROVIDERS: PCP Internal Medicine; Visit Provider Surgery
DX: E04.1 Nontoxic single thyroid nodule (principal)
CPT/HCPCS: 88108; 88305; 88313

== ENCOUNTER 2021-06-20 14:46 | Outpatient (CLI) | payer OTHER, MEDICAID, SELFPAY ==
--- NOTE | 2021-06-20 15:03 | CT_ITS ---
EXAM: CT CHEST WITH INTRAVENOUS CONTRAST CLINICAL INDICATION: VOCAL CORD PARALYSIS TECHNIQUE: Helically acquired images were obtained of the chest with intravenous contrast. This CT exam was performed using one or more of the following dose reduction techniques: automated exposure control, adjustment of the mA and/or kV according to patient size, and/or use of iterative reconstruction technique. This report was created using [employer] report generation technology. CONTRAST: IV 100mL Isovue-300 COMPARISON: None. FINDINGS: SUPRAHYOID NECK: There is asymmetric distention of the left piriform recess causing deviation of the left false cord medially. LUNGS AND PLEURAL SPACES: Unremarkable. No mass. No consolidation or edema. No pleural effusion or thickening. No pneumothorax. HEART: Unremarkable. Heart size is normal. No pericardial effusion. No significant coronary artery calcifications. MEDIASTINUM: Unremarkable. No mediastinal or hilar adenopathy. Esophagus is unremarkable. No hiatal hernia. THYROID: The thyroid is heterogenous. It contains nodules. This should be further evaluated with ultrasound. This can be performed as an outpatient. Absent left thyroid lobe.. BONES/JOINTS: Unremarkable. No suspicious lytic or blastic abnormality. VASCULATURE: Unremarkable. Thoracic aorta is non-dilated. No thoracic aortic dissection. No obvious central pulmonary embolism although this study was not performed with the pulmonary embolism protocol. GALLBLADDER AND BILE DUCTS: The gallbladder is surgically absent. STOMACH AND BOWEL: There are multiple surgical clips around the stomach. There are also anastomotic sutures around the stomach and altered gastrointestinal anatomy. This is consistent for prior gastric surgery (this may include sleeve, Albaro, or gastric bypass and other types of gastric surgery). CT/Chest WITH Contrast IMPRESSION: 1. The thyroid is heterogenous. It contains nodules. This should be further evaluated with ultrasound. This can be performed as an outpatient. 2. There is asymmetric distention of the left piriform recess causing deviation of the left false cord medially. Electronically Signed: Aníbal Barnes MD at 20:24 EST ,
--- NOTE | 2021-06-20 15:03 | CT_ITS ---
EXAM: CT NECK WITH INTRAVENOUS CONTRAST CLINICAL INDICATION: VOCAL CORD PARALYSIS Right thyroid lung nodule, vocal cord dysfunction, left thyroid lobectomy. TECHNIQUE: Helically acquired images were obtained of the neck with intravenous contrast. This CT exam was performed using one or more of the following dose reduction techniques: automated exposure control, adjustment of the mA and/or kV according to patient size, and/or use of iterative reconstruction technique. This report was created using [employer] report generation technology. CONTRAST: IV 100mL Isovue-300 COMPARISON: None. FINDINGS: NASOPHARYNX: Unremarkable. SUPRAHYOID NECK: There is asymmetric distention of the left piriform recess causing deviation of the left false cord medially. INFRAHYOID NECK: See above. SUBMANDIBULAR/PAROTID GLANDS: Unremarkable. Glands are normal in size. THYROID: The thyroid is heterogenous. It contains nodules. This should be further evaluated with ultrasound. This can be performed as an outpatient. BONES/JOINTS: No acute fracture. SOFT TISSUES: Unremarkable. VASCULATURE: No acute findings. LYMPH NODES: Unremarkable. No lymphadenopathy. LUNG APICES: Unremarkable as visualized. CT/Soft Tissue Neck WITH Contrast IMPRESSION: 1. The thyroid is heterogenous. It contains nodules. This should be further evaluated with ultrasound. This can be performed as an outpatient. 2. There is asymmetric distention of the left piriform recess causing deviation of the left false cord medially. Electronically Signed: Aníbal Barnes MD at 20:19 EST Reading Location ID and State: [facility] / [place] , Service support ,
== END 2021-06-20 23:59 | disposition home or self-care (01) ==
LOC: CT 14:47
PROVIDERS: PCP Internal Medicine; Visit Provider Otolaryngology
DX: J38.01 Paralysis of vocal cords and larynx, unilateral (principal); E04.1 Nontoxic single thyroid nodule
CPT/HCPCS: 70491; 71260

== ENCOUNTER → 2021-10-01 | Outpatient (CLI) | payer OTHER, MEDICAID, SELFPAY ==
--- NOTE | 2021-10-01 15:02 | US_ITS ---
STUDY: THYROID ULTRASOUND REASON FOR EXAM: Female, 45 years old. Thyroid nodules TECHNIQUE: Ultrasound evaluation of the thyroid was performed with real-time and static baxter-scale imaging. COMPARISON: Comparison is made with prior study 12/19/2020. FINDINGS: RIGHT LOBE: The right lobe of the thyroid gland measures 5.2 cm x 2.6 cm x 2.4 cm. There is a homogeneous echotexture. Once again, 4 nodules are seen. There is a 2.2 cm x 1.8 cm x 1.4 cm cystic nodule with septations in the upper pole. There is a 9 mm x 9 mm x 4 mm solid and cystic nodule in the midpole. Adjacent to this, a similar appearing nodule measuring 4 mm x 4 mm x 3 mm is present. There is also evidence of a 9 mm x 6 mm x 7 mm solid/cystic nodule in the lower pole. LEFT LOBE: The patient is status post resection of the left lobe of the thyroid. ISTHMUS: The isthmus measures 2 mm. The regional lymph nodes are normal. US/Thyroid IMPRESSION: Enlargement of the right lobe of the thyroid. Stable appearance of the nodules in the right lobe of the thyroid. The largest nodule is cystic with septations in the upper pole measuring 2.2 cm x 1.8 cm x 1.4 cm. Electronically Signed: Jerome Alicea MD at 8:23 EDT ,
== END | disposition home or self-care (01) ==
LOC: US 15:00
PROVIDERS: PCP Internal Medicine; Referring Provider Surgery; Visit Provider Surgery
DX: E04.1 Nontoxic single thyroid nodule (principal); Z98.890 Other specified postprocedural states
CPT/HCPCS: 76536

== ENCOUNTER → 2021-11-21 | Outpatient (CLI) | payer OTHER, MEDICAID, SELFPAY ==
[2021-11-21 08:03] LABS: Iron 75 ug/dL (50-170); Iron Binding Capacity,Total 312 ug/dL (250-450)
[2021-11-21 08:07] LABS: Vitamin B12 1316 pg/mL (211-911)
== END | disposition home or self-care (01) ==
PROVIDERS: PCP Internal Medicine; Referring Provider Nurse Practitioner Family; Visit Provider Nurse Practitioner Family
DX: Z98.84 Bariatric surgery status (principal)
CPT/HCPCS: 82306; 82607; 83540; 83550

== ENCOUNTER → 2021-12-26 | Outpatient (CLI) | payer OTHER, MEDICAID, SELFPAY ==
[2021-12-26 08:42] LABS: Anion Gap 6 (5-15); BUN 8 mg/dL (7-18); BUN/Creat Ratio 17.8 RATIO (10-20); Calcium,Total 9.3 mg/dL (8.5-10.1); Chloride 105 mmol/L (98-107); Creatinine, Serum 0.45 mg/dL (0.55-1.02); EST Glomerular Filtration Rate 161 mL/min (>60); Est Glom Filt Rate - Afr Amer 195 mL/min (>60); Glucose 100 mg/dL (74-106); Sodium Level 138 mmol/L (136-145)
--- NOTE | 2021-12-26 09:23 | EKG12_ITS ---
Test Reason : PREOP Blood Pressure : / mmHG Vent. Rate : 065 BPM Atrial Rate : 065 BPM P-R Int : 166 ms QRS Dur : 088 ms QT Int : 406 ms P-R-T Axes : 040 008 039 degrees QTc Int : 422 ms Normal sinus rhythm Normal ECG Confirmed by ALEK ROSENBERG, KVNG ([id number]), school photograph editor JASON GUIDRY ([id number]) on 12/27/2021 7:46:56 AM Referred By: Krista Robledo Confirmed By:KVNG GASTON MD
== END | disposition home or self-care (01) ==
PROVIDERS: PCP Internal Medicine; Referring Provider Orthopaedic Surgery Hand Surgery; Visit Provider Orthopaedic Surgery Hand Surgery
DX: M67.432 Ganglion, left wrist (principal); I10 Essential (primary) hypertension
CPT/HCPCS: 36415; 80048; 93005

== ENCOUNTER → 2022-02-13 | Outpatient (CLI) | payer OTHER, MEDICAID, SELFPAY ==
[2022-02-13 10:41] LABS: Thyroid Stim Hormone (TSH) 0.62 uIU/mL (0.358-3.74)
== END | disposition home or self-care (01) ==
PROVIDERS: PCP Internal Medicine
DX: E04.1 Nontoxic single thyroid nodule (principal)
CPT/HCPCS: 36415; 84443

== ENCOUNTER 2022-03-22 09:21 | Day surgery (SDC) | payer OTHER, MEDICAID, SELFPAY ==
[2022-03-22] VITALS (7 sets, daily range): BP systolic 116–136; BP diastolic 78–84; PULSE 67–78; RESP 16–17; TEMP 36.8–38.1; O2SAT 94–100; BMI 35.2
--- NOTE | 2022-03-22 | IMM_PTH ---
PATIENT: ANGELA BUI LOC: EN U#:[id number] AGE/SX: 46/F ROOM: RE03/22/[address]: Dr. Jose Suresh MD : 1975 BED: DIS: 03/22/2022 SPEC #: [id number] RECD: 03/25/22 13:25 STATUS: RAY ALY #: [id number] JABIER: 03/22/22 00:[address]: Jose Suresh DEPT: IMMUNOHISTOCHEMISTRY RECD BY: Susanna Lino ENTERED: 03/25/22 13:26 SP TYPE: IMMUNO OTHR DR: Dr. Hermelinda Castillo MD Tissues: A - Stomach, NOS Procedures: H Pylori (initial) PHYSICIAN & INSTITUTION [place] [address] SPECIMEN INFORMATION: Tissue Source: A ? Remnant ulcer Clinical Info: Dysphagia, gastric bypass history, thyroid nodule Specimen Number: [id number] CPT code: 47385 METHODOLOGY: Deparaffinized sections of prefer/formalin-fixed tissue or PAP/DQ stained slides are incubated with monoclonal/polyclonal antibodies/oligonucleotide probes. Localization is made via biotin free immunoperoxidase method. Appropriate controls are performed and reacted as expected. Results on target cell population are indicated in the following table: RESULTS: ANTIBODY / CLONE RESULT Block A H Pylori (polyclonal) negative These tests were developed and their performance characteristics determined by [facility]. They may not have been cleared or approved by the U.S. Food and Drug Administration. The FDA has determined that such clearance or approval is not necessary. The above immunohistochemical/dualISH markers are ordered and reviewed by the Pathologist. INTERPRETATION: A. Remnant ulcer, biopsy: Negative for Helicobacter pylori organisms. SJ:gerber 03/27/2022
[2022-03-22] MEDS: Lactated Ringers 1,000 ML 15 ML IV (09:40)
--- NOTE | 2022-03-22 10:30 | EGD_PTH ---
PATIENT: ANGELA BUI LOC: EN U#:[id number] AGE/SX: 46/F ROOM: RE03/22/[address]: Dr. Jose Suresh MD : 1975 BED: DIS: 03/22/2022 SPEC #: [id number] RECD: 03/22/22 11:03 STATUS: RAY ALY #: [id number] JABIER: 03/22/22 10:[address]: Jose Suresh DEPT: SURGICAL PATHOLOGY RECD BY: Chioma Gunderson ENTERED: 03/22/22 12:49 SP TYPE: EGD BIOPSY MIRA DR: Dr. Hermelinda Castillo MD Tissues: A - Gastric mucous membrane B - Esophagus, NOS Procedures: Surgery Specimen Level IV HEADER OPERATION: EGD ([facility] [place]) PRE-OP DIAGNOSIS: Dysphagia, gastric bypass history, thyroid nodule TISSUE SUBMITTED: A ? Biopsy remnant ulcer, B ? Z line biopsy MICROSCOPIC DIAGNOSIS A. Remnant ulcer, biopsy: Mild gastritis. See microscopic description and comment. B. Z-line biopsy: A fragment of gastroesophageal mucosa with chronic inflammation. Intestinal metaplasia (goblet cell metaplasia) not identified. See comment. SJ:gerber 03/25/2022 COMMENT A. The results of immunohistochemistry for Helicobacter pylori will be reported separately ([id number]). B. Alcian blue/PAS stain with matched control is used in the evaluation of the specimen. MICROSCOPIC DESCRIPTION Slides are reviewed. A. The specimen shows fragments of gastric mucosa with chronic inflammatory cell infiltrates in the lamina propria consisting of lymphocytes and plasma cells, consistent with mild chronic gastritis. GROSS DESCRIPTION A - Received in fixative is one container labeled with the patient's name and designated remnant ulcer. The specimen consists of two irregular fragments of light quesada soft tissue that in aggregate measure 1 x 0.3 x 0.1 cm. The specimen is totally submitted in one cassette. B - Received in fixative is one container labeled with the patient's name and designated Z line biopsy. The specimen consists of multiple irregular fragments of light quesada soft tissue that in aggregate measure 0.5 x 0.5 x <0.1 cm. The specimen is totally submitted in one cassette. / AM:gerber 03/22/2022 TC:3 CPT: 65637 x2, 65861
--- NOTE | 2022-03-22 10:31 | HP.PCM_ITS ---
History and Physical Date of Admission: 03/22/22 [facility] [address] [place] [address] OFFICE VISIT Date of Service:? 02/27/22 MR#: [id number] Acct: [id number] Name:ANGELA PICKENS Rep #: [id number] : 1975 ? ? Provider: Dr. Jose Suresh MD Age/Sex:? 46/F ? ? Location: [facility] Status: Signed Intake Vital Signs ? 02/28/2208:15 Height 5 ft 4 in Weight: 210 lb BMI 36.0 BP 118/80 Blood Pressure Location Rt brachial Position Sitting Respiration 16 Pulse 77 Pulse Source Monitor Temp 98 F Temp Source Temporal Pulse Oximetry (%) 100 Oxygen Delivery Method room air Intake Visit Reasons:?Esophagogastroduodenoscopy Chief Complaint: EGD, dysphasia Plaster Die Maker Required: No Is patient in pain?: No Allergies NSAIDS (Non-Steroidal Anti-Inflamma Allergy (Verified 02/27/22 08:15) unknownPenicillins Allergy (Verified 02/27/22 08:15) Rashsulfamethoxazole [From Bactrim] Allergy (Verified 02/27/22 08:15) rashtrimethoprim [From Bactrim] Allergy (Verified 02/27/22 08:15) rash Medications calcium carbonate 600 mg calcium (1,500 mg) tablet (Calcium) 600 mg PO DAILY 09/25/20 [History Confirmed 02/27/22] cholecalciferol (vitamin D3) 10 mcg (400 unit) capsule 10 mcg PO DAILY 09/25/20 [History Confirmed 02/27/22] cyanocobalamin (vitamin B-12) 50 mcg tablet (Vitamin B-12) 50 mcg PO DAILY 09/25/20 [History Confirmed 02/27/22] loratadine 10 mg capsule 10 mg PO DAILY 09/25/20 [History Confirmed 02/27/22] magnesium 200 mg tablet 200 mg PO DAILY 09/25/20 [History Confirmed 02/27/22] multivitamin 1 tab PO DAILY 09/25/20 [History Confirmed 02/27/22] ascorbic acid (vitamin C) 1,000 mg tablet 1 g PO DAILY 12/15/20 [History Confirmed 02/27/22] ferrous sulfate 325 mg (65 mg iron) tablet 325 mg PO TID 12/15/20 [History Confirmed 02/27/22] potassium 99 mg PO DAILY 12/15/20 [History Confirmed 02/27/22] zinc 50 mg tablet 50 mg PO DAILY 05/14/21 [History Confirmed 02/27/22] linaclotide 290 mcg capsule (Linzess) 290 mcg PO DAILY #90 caps 06/04/21 [Rx Confirmed 02/27/22] sumatriptan succinate 50 mg tablet (Imitrex) See Rx Instructions PO .COMPLEX #14 tabs 07/24/21 [Rx Confirmed 02/27/22] triamcinolone acetonide 0.1 % topical cream 1 applic topical BID PRN rash, itching #80 grams 08/23/21 [Rx Confirmed 02/27/22] amlodipine 5 mg tablet 5 mg PO DAILY #90 tabs 11/20/21 [Rx Confirmed 02/27/22] cyclobenzaprine 10 mg tablet See Rx Instructions .Route .COMPLEX #60 tabs 01/08/22 [Rx Confirmed 02/27/22] hydroxyzine HCl 25 mg tablet 25 mg PO TID PRN itching #30 tabs 02/07/22 [Rx Confirmed 02/27/22] prednisone 10 mg tablet See Rx Instructions PO QDAY #30 tabs 02/07/22 [Rx Confirmed 02/27/22] fluconazole 150 mg tablet (Diflucan) 150 mg PO Q3D 2 doses #2 tabs 02/14/22 [Rx Confirmed 02/27/22] PFSH Medical History? Breast cancer screening Chronic constipation Chronic left hip pain DM 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 Elevated blood pressure reading in office without diagnosis of hypertension Essential hypertension GERD (gastroesophageal reflux disease) Headache Hemangioma Hypertension IBS (irritable bowel syndrome) Localized swelling on left hand Preventative health care Right thyroid nodule Suspected COVID-19 virus infection URI (upper respiratory infection) Vocal cord dysfunction Surgical History? Gastric bypass status for obesity H/O section History of hysterectomy Hx of cholecystectomy S/P thyroid surgery Family History? Aunt Cancer ?? ? uterine cancerBrother AsthmaSister Autoimmune disorderOther Breast cancer Diabetes Heart disease Hypertension Myocardial infarction Parkinson disease Social History? Smoking Status:? Never smoker HPI HPI HPI: ANGELA BUI, is a 46 F who presents to the office today for follow-up of a right-sided thyroid nodule.? She reports that she has been preliminarily evaluated with a virtual visit through the [facility] for this issue and they have requested that she undergo a diagnostic EGD given her complaints of swallowing difficulties.? She states that they have told her she qualifies for ablation, but wished to have the EGD performed as they cannot account for her swallowing difficulties based on the location of her nodule.? Mrs. Bui states that her swallowing difficulties had been present even before her gastric bypass in 2019, but then resolved after her hiatal hernia was closed at the time of surgery.? In fact she notes that even to this day she will only experience heartburn or reflux symptoms but very infrequently?estimating maybe 1 time per month. Regarding her difficulty swallowing Mrs. Quevedo reports this to be sporadic and more problematic with solids.? She cites granola bars as an example food with which she recently had trouble.? She states she usually resolves this issue by coughing up what ever she tried to ingest and she has never tried drinking excess water as she is concerned this will make it worse.? She feels the food gets stuck in her neck and denies any pressure around her epigastrium.? She also states this is led to some food fear and she finds her self unable to eat solids when she is home by herself as she does not want to have a choking episode when no one else is around.? She reports that her last EGD was performed just prior to her bypass procedure in 2019 as part of routine work-up for that procedure.? She denies any significant findings outside of the hiatal hernia. Below is recapitulated from prior surgical consultations for ease of review: Pt presents to the office today for follow-up of a right thyroid nodule, that I aspirated on 05/14/2021 and afterwards demonstrated an increase in the volume of the cystic components.? She was last seen by me on 05/28/2021, but in the interim has visited with Dr. Shaggy Waterman of ENT for endoscopy.? His assistance in this case is much appreciated and findings are noted of a paralysis of the left vocal cord.? She presents today with her and they state they have been briefed on the risks of completion thyroidectomy in the presence of a vocal cord paralysis and are interested to discuss options further.? Mrs. Bui states that symptomatically she remains the same with fluctuating voice quality. Patient's initial surgical consultation was 01/08/2021 for right thyroid nodule.? FNA was obtained at that time due to concerns over interval growth since prior imaging.? This resulted in consistent with a benign colloid nodule and observation was elected.? Since that visit patient complains of more fatigue and changes to her voice.? Concerning the fatigue, she states that she is not sleeping good.? She states that she wakes up in the middle the night despite wearing her CPAP mask.? She denies waking up gasping for air but just states that she awakens without feeling refreshed.? She estimates she sleeps 7 hours nightly.? She attempts to make all the proper changes with respect to sleep hygiene including a cool room no caffeine within 5 hours of sleep, hot warm bath and use of humidifiers. Concerning her voice, patient states is been going on for approximately 1 month.? Initially she believed it is a Covid infection?as both of her kids have been diagnosed with Covid.? However, she is tested multiple times and has been serially negative.? She does not endorse any reports of voice fatigue with longer periods of talking.? She states she does not do any singing so she is uncertain whether her pitch has been affected.? She does complain of swallowing difficulties to certain consistencies.? She states that gummy stuff just simply does not go down and she reports occasional difficulty to beef or chicken. Outside of the above, she is concerned because she feels a lump more.? She has her feeling this, but states that there are limitations to her self exam given the absence of her left thyroid lobe. Patient's most recent ultrasound exam shows a right-sided mixed thyroid nodule with dimensions: 1.9 cm x 1.6 cm x 1.1 cm. ? ROS General General: Yes weight change and fatigue; No appetite, colon cancer, breast cancer or weakness HEENT HEENT: Yes difficulty swallowing; No eye injury, eye surgery, swollen glands or hoarseness Endo Endocrine: Yes thyroid disease; No diabetes mellitus, thyroid cancer, Hair loss, heat intolerance or cold intolerance Skin Skin: No rash or changing moles Musc Musculoskeletal: No back problems, arthritis, rheumatoid arthritis, gout or joint pain Cardio Cardiovascular: Yes murmur and high blood pressure; No pacemaker, heart disease, atrial fibrillation, heart attack, heart stent, palpitations, shortness of breat with exertion or chest pain Psych Psychiatric: No depression, anxiety or hearing voices Resp Respiratory: No shortness of breath, Yes sleep apnea, No cough, No COPD, No asthma, No emphysema and No wheezing Gastro Gastrointestinal: No abdominal pain, No nausea or vomiting, No diarrhea, Yes constipation, No blood in stool, No acid reflux, No hemorrhoids, No ulcers, No gallbladder problem and No black,tarry stools [place]eewee Hematologic: No blood thinners, No blood disorders, No bleeding, No anemia and No blood clots Neuro Neurologic: No system reviewed and no additional complaints, except as documented, No as per HPI, No abnormal gait, No abnormal hearing, No abnormal movements, No abnormal speech, No behavioral changes, No burning sensations, No confusion, No convulsions, No disequilibrium, No dizziness, No localized weakness, No frequent falls, No headache(s), No lack of coordination, No loss of vision, No memory loss, No numbness, No other visual disturbances, No radicular pain, No restless legs, No sensory deficit, No syncope, No tingling, No tremor(s), No weakness and No other Exam Const General: cooperative, comfortable and no acute distress Orientation: alert, awake and oriented x3 GI Other: Well-healed port site incisions.? Nondistended.? Soft and nontender to palpation. Assessment and Plan Assessment and Plan (1) Vocal cord paralysis, unilateral complete: ?Status:?Acute ?Comment: Patient with history of left thyroid lobectomy and now unilateral, 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 Waterman of ENT on 06/15/2021.? Because of this issue, I do not believe surgical intervention for patient's benign?appearing right thyroid cyst is the safest approach for dealing with this issue. (2) Cystic thyroid nodule: ?Status:?Acute ?Comment: Patient with cystic thyroid nodule of the remaining right thyroid lobe that recurred in the short 3 weeks since her aspiration under ultrasound guidance.? We initially planned for completion thyroidectomy based on the patient's symptoms of dysphagia and vocal changes attributed to this growth.? However, a finding of complete left vocal cord paralysis changed of this discussion.? She is currently under evaluation for possible danilo ablation with Dr. Hi of the [facility].? However she has been asked to complete a diagnostic EGD given her complaints of dysphagia since her nodule seems to be somewhat disparate from her recurrent laryngeal nerve and esophagus. (3) Gastric bypass status for obesity: ?Status:?Acute ?Comment: Patient with gastric bypass anatomy with prior issues of dysphagia preoperatively that have now recurred.? Patient has otherwise had an uneventful postoperative course following her 2019 bypass procedure (4) Dysphagia: ?Status:?Acute ?Comment: Patient is a 46-year-old female with a rather complex past medical/past surgical history presenting with recurrent dysphagia.? As above she has a known history of left thyroid lobectomy complicated by left vocal cord paralysis and now a refractory right thyroid cyst which is under evaluation for possible danilo ablation.? She describes her dysphagia as intermittent and to solids only.? It does seem to be progressive in frequency and intensity.? This has also led to some food fear in part of the patient.? Given her symptoms and the request from the thyroid referral, I find it reasonable to perform a diagnostic EGD to better assess her post bypass anatomy and see if there is a clear anatomical cause from a GI perspective for this dysphagia or if it is potentially related to her right thyroid lobe process. ?Plan: Diagnostic EGD under local MAC.? Patient is advised that she will require a designated operator and truck driver the day of the procedure given the sedation used for the procedure. I have examined the patient and the H&P has been reviewed. There are no clinical changes since date of exam. Plan to proceed for diagnostic EGD under local MAC as discussed above given patient's complaints of recent dysphagia. It is noted patient does have a history of Shayy-en-Y gastric bypass.
--- NOTE | 2022-03-22 11:09 | OP.EGD_ITS ---
Patient Name: Catherine Jaramillo Procedure Date: 03/22/2022 10:23 AM Date of : 1975 Age: 46 Procedure: Upper GI endoscopy Indications: Dysphagia, Status post Shayy-en-Y Providers: Jose Suresh MD Referring MD: Jose Suresh MD Medicines: Monitored Anesthesia Care Patient Profile: Refer to note in patient chart for documentation of history and physical. Complications: No immediate complications. Estimated blood loss: Minimal. Procedure: Pre-Anesthesia Assessment: - The heart rate, respiratory rate, oxygen saturations, blood pressure, adequacy of pulmonary ventilation, and response to care were monitored throughout the procedure. After obtaining informed consent, the endoscope was passed under direct vision. Throughout the procedure, the patient's blood pressure, pulse, and oxygen saturations were monitored continuously. The gastroscope was introduced through the mouth, and advanced to the jejunum. The upper GI endoscopy was accomplished without difficulty. The patient tolerated the procedure well. Scope In: 10:37:25 AM Scope Out: 10:52:48 AM Total Procedure Duration Time 0 hours 15 minutes 23 seconds Findings: The examined jejunum was normal. No biopsies or other specimens were collected for this exam. Evidence of a Shayy-en-Y gastrojejunostomy was found. The gastrojejunal anastomosis was characterized by healthy appearing mucosa. This was traversed. The hwyab-hh-kzlytaa limb was characterized by healthy appearing mucosa. No biopsies or other specimens were collected for this exam. One non-bleeding cratered gastric ulcer with no stigmata of bleeding was found in the cardia. The lesion was 15 mm in largest dimension. Biopsies were taken with a cold forceps for histology. Estimated blood loss was minimal. The Z-line was irregular and was found 33 cm from the incisors. Biopsies were taken with a cold forceps for histology. Estimated blood loss was minimal. The distal esophagus was moderately tortuous. No biopsies or other specimens were collected for this exam. The exam was otherwise without abnormality. Impression: - Normal examined jejunum. No specimens collected. - Shayy-en-Y gastrojejunostomy with gastrojejunal anastomosis characterized by healthy appearing mucosa. No specimens collected. - Non-bleeding gastric ulcer with no stigmata of bleeding. Biopsied. - Z-line irregular, 33 cm from the incisors. Biopsied. - Tortuous esophagus. - The examination was otherwise normal. Recommendation: - Discharge patient to home (via wheelchair). - Resume previous diet today. - Use sucralfate suspension 1 gram PO BID today. - Continue present medications. Procedure Code(s): --- Professional --- 14837, Esophagogastroduodenoscopy, flexible, transoral; with biopsy, single or multiple Diagnosis Code(s): --- Professional --- Z98.0, Intestinal bypass and anastomosis status K25.9, Gastric ulcer, unspecified as acute or chronic, without hemorrhage or perforation K22.8, Other specified diseases of esophagus Q39.9, Congenital malformation of esophagus, unspecified R13.10, Dysphagia, unspecified CPT copyright 2017 [employer]. All rights reserved. The codes documented in this report are preliminary and upon senior materials planner review may be revised to meet current compliance requirements. Jose Suresh MD 03/22/2022 11:09:21 AM This report has been signed electronically. Number of Addenda: 0 Note Initiated On: 03/22/2022 10:23 AM
--- NOTE | 2022-03-22 11:10 | OP.CCLET_ITS ---
03/22/2022 Hermelinda Castillo MD [address] [place] [address] [place] [address] Re : Upper GI endoscopy procedure for Catherine Jaramillo Dear Dr. Castillo This procedure was performed on Tuesday, March 22, 2022. My impressions and recommendations are as follows: Impressions : - Normal examined jejunum. No specimens collected. - Shayy-en-Y gastrojejunostomy with gastrojejunal anastomosis characterized by healthy appearing mucosa. No specimens collected. - Non-bleeding gastric ulcer with no stigmata of bleeding. Biopsied. - Z-line irregular, 33 cm from the incisors. Biopsied. - Tortuous esophagus. - The examination was otherwise normal. Recommendations : - Discharge patient to home (via wheelchair). - Resume previous diet today. - Use sucralfate suspension 1 gram PO BID today. - Continue present medications. My findings are described in the full procedure note, which is enclosed. If I can be of further assistance, please feel free to contact me at Doctor phone number(s): , Work: . Sincerely, Jose Suresh MD 03/22/2022 11:09:21 AM This report has been signed electronically.
== END 2022-03-22 12:21 | disposition home or self-care (01) ==
LOC: EN 09:22 → AC 09:23
PROVIDERS: PCP Internal Medicine; Referring Provider Surgery; Visit Provider Surgery
PROC: 0DJ08ZZ Inspection of Upper Intestinal Tract, Via Natural or Artificial Opening Endoscopic (ICD-10-PCS; CPT 43235; principal; 2022-03-22 10:25)
DX: J38.01 Paralysis of vocal cords and larynx, unilateral (principal); K21.00 Gastro-esophageal reflux disease with esophagitis, without bleeding; K25.9 Gastric ulcer, unspecified as acute or chronic, without hemorrhage or perforation; K29.70 Gastritis, unspecified, without bleeding; Q39.9 Congenital malformation of esophagus, unspecified; E04.1 Nontoxic single thyroid nodule; I10 Essential (primary) hypertension; E66.9 Obesity, unspecified; Z68.36 Body mass index [BMI] 36.0-36.9, adult; Z98.0 Intestinal bypass and anastomosis status
CPT/HCPCS: 43239; 88305; 88342; J7120; J2405

== ENCOUNTER → 2022-06-12 | Outpatient (CLI) | payer OTHER, MEDICAID, SELFPAY ==
--- NOTE | 2022-06-12 14:44 | BI_ITS ---
MAMMOGRAPHY - BILATERAL SCREENING REASON FOR EXAM: Female, 46 years old. Routine annual screening examination. PERTINENT HISTORY: Grandmother with breast cancer. TECHNIQUE: Digital bilateral breast emre (3D mammographic acquisition) in the CC and MLO projections. 2-D mediolateral oblique (MLO) and craniocaudad (CC) views of both breasts were obtained. CAD: Full Field Digital Mammography with Computer Added Detection was performed. COMPARISON: Comparison is made with prior study dated 02/12/2021 and 12/07/2019. FINDINGS: Breast Composition: The breasts are heterogeneously dense, which may obscure small masses. There are no dominant masses or suspicious calcifications. Stable small benign appearing bilateral axillary lymph nodes. No other significant abnormalities are identified. There has been no significant change since the prior study. BI/SCRN MAMM (CAD)W/EMRE BILAT IMPRESSION: Stable bilateral screening mammogram. Yearly follow-up mammogram recommended. (A) ASSESSMENT CATEGORY: BIRADS Category 2: Benign. A letter regarding these results will be sent to the patient by the facility within 30 days. Approximately 10% of breast cancers are not detected by mammography. A normal mammogram should not delay biopsy of a clinically suspicious abnormality. [id number] Electronically Signed: Jerome Alicea MD at 15:33 EST ,
--- NOTE | 2022-06-12 14:44 | US_ITS ---
STUDY: SUPERFICIAL ULTRASOUND - ACHILLES TENDON. REASON FOR EXAM: Female, 46 years old. Soft tissue mass left achilles TECHNIQUE: A superficial ultrasound was performed with real-time and static baxter-scale imaging. COMPARISON: None. FINDINGS: There is thickening of the Achilles tendon suggestive of possible tendinitis. US/Ext Non Vasc Limited/Soft Tiss IMPRESSION: Thickening of the Achilles tendon suggests tendinitis. Electronically Signed: Jerome Alicea MD at 8:59 EST ,
== END | disposition home or self-care (01) ==
LOC: US 14:42
PROVIDERS: PCP Internal Medicine; Visit Provider Nurse Practitioner Family
DX: Z12.31 Encounter for screening mammogram for malignant neoplasm of breast (principal); R22.42 Localized swelling, mass and lump, left lower limb
CPT/HCPCS: 76882; 77063; 77067

== ENCOUNTER → 2022-08-29 | Outpatient (CLI) | payer OTHER, MEDICAID, SELFPAY ==
--- NOTE | 2022-08-29 15:28 | MRI_ITS ---
EXAM: MR LEFT LOWER EXTREMITY WITHOUT INTRAVENOUS CONTRAST, ANKLE CLINICAL INDICATION: EVALUATE FOR PARTIAL TEAR TECHNIQUE: Multiplanar and multisequence MR images of the left ankle without intravenous contrast. COMPARISON: No relevant prior studies available. FINDINGS: LIGAMENTS: ANTERIOR TALOFIBULAR: Unremarkable. Intact. POSTERIOR TALOFIBULAR: Unremarkable. Intact. ANTERIOR TIBIOFIBULAR: Unremarkable. Intact. POSTERIOR TIBIOFIBULAR: Unremarkable. Intact. CALCANEOFIBULAR: Unremarkable. Intact. DELTOID: Unremarkable. Intact. SPRING: Unremarkable. Intact. LISFRANC: Unremarkable. Intact. TENDONS: ACHILLES: At approximately 5.4 cm above its insertion of Achilles tendon. No definite tendon tearing. Edema involving the pre-Achilles fat anterior to the thickened tendon may represent Achilles paratenonitis. FLEXOR: Unremarkable. Intact. EXTENSOR: Unremarkable. Intact. PERONEAL: Unremarkable. Intact. TIBIALIS ANTERIOR: Unremarkable. Intact. TIBIALIS POSTERIOR: Unremarkable. Intact. MUSCLES: Muscles are normal. Neurovascular structures are unremarkable. FLUID: Unremarkable. No joint effusion. SINUS TARSI: Unremarkable. Normal sinus Tarsi appearance. TARSAL TUNNEL: Unremarkable. PLANTAR FASCIA: Unremarkable. Intact. CARTILAGE: Unremarkable. No osteochondral lesion. Articular cartilage intact. BONES/JOINTS: Small amount of the anterior tibiotalar joint fluid. Talar dome intact. No concerning bone marrow signal. Normal ligaments. OTHER SOFT TISSUES: Unremarkable. MRI/Lower Ext Joint Only (Routine) IMPRESSION: Moderate Achilles tendinosis without tendon tearing. Edema involving the pre-Achilles fat anterior to the thickened tendon may represent Achilles paratenonitis. No other significant internal derangement. Electronically Signed: Bob Paul MD at 21:22 EDT ,
== END | disposition home or self-care (01) ==
LOC: MRI 15:21
PROVIDERS: PCP Internal Medicine; Referring Provider Student in an Organized Health Care Education/Training Program; Visit Provider Student in an Organized Health Care Education/Training Program
DX: M76.62 Achilles tendinitis, left leg (principal)
CPT/HCPCS: 73721

== ENCOUNTER 2022-10-18 14:30 | Outpatient (RCR) | payer OTHER, MEDICAID, SELFPAY ==
--- NOTE | 2022-08-23 16:52 | HP.PTEVAL ---
Patient's Visit Information ANGELA BUI is a 46 year old F referred to Physical Therapy by Dr. Jose Mccracken DPM with a diagnosis of . Date of Evaluation: 08/23/22 Physical Therapist: Jarret Ramirez, PT, Cert MDT, OCS - Visit Plan Frequency: 2x /Week Duration: 6 Weeks Plan: PT INTERVETIONS MANUAL THERAPY STM/HAWK TOOL ACHILLES/CALF ,STRETCHING CALF ,ECCENTRICS G-S AND INTOPHORESIS WITH DEXAMETHONE - Subjective This 46 y/o female presents to physical therapy with Achilles tendonitis/tendinosis. Patient has had Achilles tendon pain for ~ 1 year .Patient seen DR Mccracken recommended ,tried 5 day Steriod. Patient has orthotics. Patient has lump Achilles distal. Described as burning to calf throbs/ache. Patient aggravating factors walking/standing affects job and housework tasks. DR wants MRI which scheduled for MRI. Denies paresthesia/tingling. Patient sleeping okay but can affects sleeping. Patient pain affects QOL and function. 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 GAIT: reciprocal pattern mild antalgic gait right side. FLEXABLITY: G-S FLEXABILITY mod tight. NEURO: intact. PALAPTION: tender medial Achilles tendon. OBSERVATION: distal Achilles bump. AROM: ankle dorsiflexion 0 degrees ,plantar flexion 65 Degrees ,inversion 40 degrees ,eversion 10 degrees. MMT: ankle anterior tibialis ,posterior tibialis ,peroneus .G-S 4/5 - Balance/Special Test Scores Lower Extremity Functional Score: 48 - Goals Goal 1:: Patient to be I with HEP for ankle Goal Time Frame: 4-6 Weeks Goal 2:: Patient to demonstrate 50% improvement with decrease pain and improved function Goal Time Frame: 4-6 Weeks Goal 3:: Patient to normalized gait pattern Goal Time Frame: 4-6 Weeks Goal 4:: Patient to improve LFES score by 5 points to improve QOL and function Goal Time Frame: 4-6 Weeks Goal 5:: Patient to minimize tenderness Achilles tendon lump Goal Time Frame: 4-6 Weeks - Rehabilitation Potential Rehabilitation Potential: Good - Anticipated Interventions Patient/Client Instruction: Educate patient on: Condition, Plan of Care For the Purpose of:: To decrease pain, To increase ROM, To improve nutrient delivery to tissue, To increase oxygenation perfusion, To improve muscle performance and motor function, To increase tolerance to activity/condition/position, To improve ability of physical actions for home/community/work/leisure, To improve health of tissue, To decrease soft tissue restriction, To increase flexibility/ROM Therapeutic Exercise to Include: Strength training, Postural training, Passive ROM, Active ROM Comment: ECCENTRICS G-S RIGHT For the Purpose of:: To decrease pain, To increase ROM, To improve muscle performance and motor function, To improve ability to perform ADL's, To increase tolerance to activity/condition/position, To improve ability of physical actions for home/community/work/leisure, To improve health of tissue, To decrease soft tissue restriction, To increase flexibility/ROM, To prevent re-injury TENS: Yes IF ES: Yes Cryotherapy (ice pack, ice massage): Yes Thermo therapy (hot pack): Yes Ultrasound (thermal/non thermal): Yes For the Purpose of:: To decrease pain, To improve nutrient delivery to tissue, To increase oxygenation perfusion, To improve health of tissue, To decrease soft tissue restriction Thank you for the opportunity to evaluate your patient. For Medicare and Medicare HMO plans, please review the plan of care and approve it. It will need to be FAXED BACK to us at [phone] for Medicare purposes. For Medicare only, by signing this I certify the plan of care. Please let me know if there are questions or concerns regarding this plan of care. Physician Signature: Date:
--- NOTE | 2022-08-26 16:33 | HP.PTEVAL ---
Patient's Visit Information ANGELA BUI is a 46 year old F referred to Physical Therapy by Dr. Jose Mccracken DPM with a diagnosis of Left Achilles tendonitis/tendenosis. Date of Evaluation: 08/23/22 Physical Therapist: Jarret Ramirez, PT, Cert MDT, OCS - Visit Plan Frequency: 2x /Week Duration: 6 Weeks Plan: PT INTERVETIONS MANUAL THERAPY STM/HAWK TOOL ACHILLES/CALF ,STRETCHING CALF ,ECCENTRICS G-S AND INTOPHORESIS WITH DEXAMETHONE - Subjective This 46 y/o female presents to physical therapy with Achilles tendonitis/tendinosis. Patient has had Achilles tendon pain for ~ 1 year .Patient seen DR Mccracken recommended ,tried 5 day Steriod. Patient has orthotics. Patient has lump Achilles distal. Described as burning to calf throbs/ache. Patient aggravating factors walking/standing affects job and housework tasks. DR wants MRI which scheduled for MRI. Denies paresthesia/tingling. Patient sleeping okay but can affects sleeping. Patient pain affects QOL and function. 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 GAIT: reciprocal pattern mild antalgic gait right side. FLEXABLITY: G-S FLEXABILITY mod tight. NEURO: intact. PALAPTION: tender medial Achilles tendon. OBSERVATION: distal Achilles bump. AROM: ankle dorsiflexion 0 degrees ,plantar flexion 65 Degrees ,inversion 40 degrees ,eversion 10 degrees. MMT: ankle anterior tibialis ,posterior tibialis ,peroneus .G-S 4/5 - Balance/Special Test Scores Lower Extremity Functional Score: 48 - Goals Goal 1:: Patient to be I with HEP for ankle Goal Time Frame: 4-6 Weeks Goal 2:: Patient to demonstrate 50% improvement with decrease pain and improved function Goal Time Frame: 4-6 Weeks Goal 3:: Patient to normalized gait pattern Goal Time Frame: 4-6 Weeks Goal 4:: Patient to improve LFES score by 5 points to improve QOL and function Goal Time Frame: 4-6 Weeks Goal 5:: Patient to minimize tenderness Achilles tendon lump Goal Time Frame: 4-6 Weeks - Rehabilitation Potential Physical Therapy Diagnosis: This patient has left Achilles pain with tendinosis with lump with pain ,decrease ROM ankle ,antalgic and tenderness thus benefit from skilled PT. Rehabilitation Potential: Good - Anticipated Interventions Patient/Client Instruction: Educate patient on: Condition, Plan of Care For the Purpose of:: To decrease pain, To increase ROM, To improve nutrient delivery to tissue, To increase oxygenation perfusion, To improve muscle performance and motor function, To increase tolerance to activity/condition/position, To improve ability of physical actions for home/community/work/leisure, To improve health of tissue, To decrease soft tissue restriction, To increase flexibility/ROM Therapeutic Exercise to Include: Strength training, Postural training, Passive ROM, Active ROM Comment: ECCENTRICS G-S RIGHT For the Purpose of:: To decrease pain, To increase ROM, To improve muscle performance and motor function, To improve ability to perform ADL's, To increase tolerance to activity/condition/position, To improve ability of physical actions for home/community/work/leisure, To improve health of tissue, To decrease soft tissue restriction, To increase flexibility/ROM, To prevent re-injury TENS: Yes IF ES: Yes Cryotherapy (ice pack, ice massage): Yes Thermo therapy (hot pack): Yes Ultrasound (thermal/non thermal): Yes For the Purpose of:: To decrease pain, To improve nutrient delivery to tissue, To increase oxygenation perfusion, To improve health of tissue, To decrease soft tissue restriction Thank you for the opportunity to evaluate your patient. For Medicare and Medicare HMO plans, please review the plan of care and approve it. It will need to be FAXED BACK to us at [phone] for Medicare purposes. For Medicare only, by signing this I certify the plan of care. Please let me know if there are questions or concerns regarding this plan of care. Physician Signature: Date:
--- NOTE | 2022-12-24 10:38 | HP.PTDCNRP_ITS ---
Patient Information Patient Information: ANGELA BUI was seen in my office for initial evaluation on 08/23/22. The following Plan of Care was established for this patient: POC Established Initial Frequency: 2x /Week Initial Duration: 6 Weeks Anticipated Interventions Patient/Client Instruction: Educate patient on: Condition and Plan of Care For the Purpose of:: To decrease pain, To increase ROM, To improve nutrient delivery to tissue, To increase oxygenation perfusion, To improve muscle performance and motor function, To increase tolerance to activity/condition/position, To improve ability of physical actions for home/community/work/leisure, To improve health of tissue, To decrease soft tissue restriction and To increase flexibility/ROM Therapeutic Exercise to Include: Strength training, Postural training, Passive ROM and Active ROM For the Purpose of:: To decrease pain, To increase ROM, To improve muscle perfor melissa and motor function, To improve ability to perform ADL's, To increase tolerance to activity/condition/position, To improve ability of physical actions for home/community/work/leisure, To improve health of tissue, To decrease soft tissue restriction, To increase flexibility/ROM and To prevent re-injury TENS: Yes IF ES: Yes Cryotherapy (ice pack, ice massage): Yes Thermo therapy (hot pack): Yes Ultrasound (thermal/non thermal): Yes For the Purpose of:: To decrease pain, To improve nutrient delivery to tissue, To increase oxygenation perfusion, To improve health of tissue and To decrease soft tissue restriction Last Seen Last Seen: This patient was last seen in our office . Pertinent comments regarding their Physical therapy will appear below: Patient seen for Achilles tendonitis ,MRI showed mod scar tissue tendonopathy doing well with PT thus d/c At this point I will be discontinuing this patient from physical therapy. I would be happy to see this patient again in the future if found appropriate by the physician. Thank you! Jarret Ramirez, PT, Cert MDT, OCS Balance/Gait/Functional tests Balance/Special Test Scores Lower Extremity Functional Score: 66
== END 2022-10-18 19:00 | disposition home or self-care (01) ==
LOC: PT 14:30
PROVIDERS: PCP Internal Medicine; Visit Provider Student in an Organized Health Care Education/Training Program
DX: M76.62 Achilles tendinitis, left leg (principal)
CPT/HCPCS: 97033; 97035; 97116; 97140; 97162; 97530

== ENCOUNTER 2022-10-29 05:22 | Inpatient (IN) | payer OTHER, MEDICAID, SELFPAY ==
[2022-10-29] VITALS (10 sets, daily range): BP systolic 105–136; BP diastolic 76–94; PULSE 68–117; RESP 16–23; TEMP 36.1–36.9; O2SAT 91–100; BMI 35.5; BMI 35.0
--- NOTE | 2022-10-29 05:34 | EKG12_ITS ---
Test Reason : GI BLEED Blood Pressure : / mmHG Vent. Rate : 103 BPM Atrial Rate : 103 BPM P-R Int : 138 ms QRS Dur : 084 ms QT Int : 318 ms P-R-T Axes : 068 031 029 degrees QTc Int : 416 ms Sinus tachycardia Otherwise normal ECG Confirmed by ALEK ROSENBERG, KVNG ([id number]), subeditor JASON GUIDRY ([id number]) on 10/30/2022 10:21:17 AM Referred By: AIRAM Confirmed By:KVNG GASTON MD
[2022-10-29] MEDS: 0.9% Normal Saline 1,000 ML 1000 ML IV (05:42)
[2022-10-29 05:45] LABS: Absolute Lymphocyte Count 4.75 X10^3/uL (0.83-4.51); Absolute Neutrophil Count 8.4 X10^3/uL (2.0-7.7); Basophil# 0.16 X10^3/uL; Basophil% 1.1 % (0-1); Eosinophil# 0.24 X10^3/uL; Eosinophils% 1.7 % (0-5); Hematocrit 34.5 % (37-47); Hemoglobin 11.4 g/dL (12.0-15.0); Lymphocyte # 4.75 X10^3/ul (0.83-4.51); Lymphocyte % 33.1 % (19-41); Mean Corpuscular Hgb 30.4 pg (27.0-32.0); Mean Platelet Vol. 10.3 fl (6.2-12.0); Monocyte# 0.78 X10^3/uL; Monocyte% 5.4 % (0-10); NRBC Flagged by Analyzer 0 % (0-5); Neutrophil # 8.36 X10^3/uL (2.7-7.7); Neutrophil % 58.1 % (47-70); Platelet Count 371 K/mm3 (150-450); RBC Distribution Width CV 12.4 % (11.6-14.6); RBC Distribution Width SD 42.3 fl (35.1-43.9); Red Blood Count 3.75 M/mm3 (4.2-5.4); White Blood Count 14.4 K/mm3 (4.4-11.0)
--- NOTE | 2022-10-29 05:50 | CT_ITS ---
STUDY: CT ABDOMEN AND PELVIS WITH CONTRAST REASON FOR EXAM: Female, 46 years old. Vomiting bright red blood. Abdominal pain. Bloody stools. Prior gastric bypass surgery. RADIATION DOSAGE (If Supplied By Facility): CTDIvol = ( 15.33 ) mGy, DLP = ( 1269.6 ) mGycm TECHNIQUE: Transaxial images were obtained from the dome of the diaphragm to the symphysis pubis without oral contrast. Oral and amp; IV Gastrografin and amp; 100mL Isovue-300 was administered. Sagittal and coronal images were reconstructed. Individualized dose optimization techniques were used for this CT. COMPARISON: None. FINDINGS: The visualized lung bases are unremarkable. The visualized portions of the heart are within normal limits. There is decreased attenuation of the liver consistent with steatosis. There are surgical clips in the gallbladder fossa consistent with a prior cholecystectomy. Normal spleen. Normal pancreas. Normal bilateral adrenal glands. Normal right kidney. Normal left kidney. There is evidence of gastric bypass surgery. There is evidence of circumferential wall thickening of the distal stomach and first portion of the duodenum. Clinical correlation is recommended. Normal small intestine. Normal colon. The appendix is visualized and appears normal. Normal abdominal aorta. Normal inferior vena cava. Normal retroperitoneum. Normal urinary bladder. Small follicles are seen in both ovaries. Patient status post hysterectomy. Normal abdominal wall. Normal osseous structures. CT/Abdomen/Pelvis WITH Contrast IMPRESSION: Fatty infiltration of the liver. Diffuse circumferential wall thickening of the distal stomach and first portion of the duodenum. Inflammatory process should be ruled out. Patient status post gastric bypass surgery. Small bilateral ovarian follicles. Electronically Signed: Jerome Alicea MD at 8:51 EDT ,
--- NOTE | 2022-10-29 05:58 | ED.VIS.GI ---
HPI <Dr. Henok Bassett MD - Last Filed: 10/29/22 06:53> HPI - GI History of Present Illness Chief Complaint: GI Bleed Informant: patient and family Narrative Narrative: Patient presents with blood in vomitus and stool. Patient states that she was feeling nauseated and woke up about an hour or so before coming in. She ended up going to the bathroom. She vomited some blood and then called for her . She must of passed out. She states she was very scared when she saw the blood. She evidently fell and hit her lip and chipped her upper tooth and made a small cut on the inside of her lower lip. She is not having headache or neck pain. She then did have a bloody bowel movement. It was evidently more bright red and dark red. It was not black. She vomited red blood also. No black material. On review of systems I do find out that she has been having some epigastric aching for about 3 or 4 days but did not have the other symptoms. Patient also has a history of a bleeding ulcer. It sounds like she had this somewhere 2 or 3 months ago but she is not exactly sure. They did do an endoscopy. She was on medicine for a period of time. It sounds like she was on Carafate but is on nothing at this time. She is not on a proton pump inhibitor. She also had a Shayy-en-Y gastric bypass by Dr. Romero in [place] in 2019. [facility] <Dr. Henok Bassett MD - Last Filed: 10/29/22 06:53> [facility] Medical History Breast cancer screening Chronic constipation Chronic left hip pain DM 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 Elevated blood pressure reading in office without diagnosis of hypertension Essential hypertension GERD (gastroesophageal reflux disease) Headache Hemangioma History of hiatal hernia History of IBS Hypertension IBS (irritable bowel syndrome) Localized swelling on left hand Low iron Mass of skin of left lower leg Migraine headache Non-smoker Preventative health care Right thyroid nodule Suspected COVID-19 virus infection Thyroid disease URI (upper respiratory infection) Vocal cord dysfunction Wears glasses Home Medications calcium carbonate 600 mg calcium (1,500 mg) tablet (Calcium) 600 mg PO DAILY 09/25/20 [History Last Taken Unknown] cholecalciferol (vitamin D3) 10 mcg (400 unit) capsule 10 mcg PO DAILY 09/25/20 [History Last Taken Unknown] cyanocobalamin (vitamin B-12) 50 mcg tablet (Vitamin B-12) 50 mcg PO DAILY 09/25/20 [History Last Taken Unknown] loratadine 10 mg capsule 10 mg PO DAILY 09/25/20 [History Last Taken Unknown] magnesium 200 mg tablet 200 mg PO DAILY 09/25/20 [History Last Taken Unknown] multivitamin 1 tab PO DAILY 09/25/20 [History Last Taken Unknown] ascorbic acid (vitamin C) 1,000 mg tablet 1 g PO DAILY 12/15/20 [History Last Taken Unknown] ferrous sulfate 325 mg (65 mg iron) tablet 325 mg PO TID 12/15/20 [History Last Taken Unknown] potassium 99 mg PO DAILY 12/15/20 [History Last Taken Unknown] sumatriptan succinate 50 mg tablet (Imitrex) See Rx Instructions PO .COMPLEX #14 tabs 07/24/21 [Rx Last Taken Unknown] sucralfate 100 mg/mL oral suspension (Carafate) 10 ml PO BID #200 mL 06/05/22 [Rx Last Taken Unknown] cyclobenzaprine 10 mg tablet See Rx Instructions .Route .COMPLEX #60 tabs 08/26/22 [Rx Last Taken Unknown] linaclotide 290 mcg capsule (Linzess) 290 mcg PO DAILY PRN PRN Diarrhea #90 caps 09/05/22 [Rx Last Taken Unknown] amlodipine 5 mg tablet See Rx Instructions .Route .COMPLEX #90 tabs 10/25/22 [Rx Last Taken Unknown] Allergy/AdvReac Type Severity Reaction Status Date / Time NSAIDS (Non-Steroidal Allergy unknown Verified 10/29/22 05:28 Anti-Inflamma Penicillins Allergy Rash Verified 10/29/22 05:28 sulfamethoxazole Allergy rash Verified 10/29/22 05:28 [From Bactrim] trimethoprim [From Bactrim] Allergy rash Verified 10/29/22 05:28 Family History Aunt Cancer uterine cancer Brother Asthma Sister Autoimmune disorder Other Breast cancer Diabetes Heart disease Hypertension Myocardial infarction Parkinson disease Surgical History Gastric bypass status for obesity H/O section History of hysterectomy History of surgical removal of ganglion cyst Hx of cholecystectomy S/P thyroid surgery Social History Smoking Status: Never smoker ROS <Dr. Henok Bassett MD - Last Filed: 10/29/22 06:53> ROS ED ROS Narrative A complete review of systems was performed and is negative except as documented in the history of present illness. Some specific details below. Constitutional: No recent fevers or chills. ENT: No difficulty swallowing. No swelling. No pain. No real GERD symptoms recently. CV: No chest pain or palpitations. Respiratory: No dyspnea. No hemoptysis. No difficulty taking breaths. GI: Please see history of present illness. Note epigastric soreness for a few days but she was still eating and drinking. : No frequency dysuria or hematuria. Musculoskeletal: No recent trauma. No pains. Skin: No rash. Nondiaphoretic. Neuro: No weakness or numbness. Endocrine: No polyuria or polydipsia. EXAM <Dr. Henok Bassett MD - Last Filed: 10/29/22 06:53> Physical Exam Narrative Exam Narrative: CONSTITUTIONAL: Patient is nontoxic in appearance. The patient looks comfortable. She does not look pale or diaphoretic. HEENT: Patient does have a slight chip off the tip of the left medial incisor. It does seem to be stable. She has a small U-shaped tear of the skin superficial laceration to the lower lip likely from hitting in this tooth. No active bleeding. No mandibular tenderness. No other facial tenderness. EYES: No conjunctival injection. No proptosis. No pallor is noted. No icterus. NECK: No tenderness or pain with motion. CARDIOVASCULAR: Mildly tachycardic rate. Regular rhythm. No notable murmur. No JVD. RESPIRATORY: No respiratory distress. Breathing is unlabored. No wheezes. No rhonchi. No rales. No pain with a deep breath. GASTROINTESTINAL: Not distended. Bowel sounds are normal and not increased or decreased. Very mild epigastric tenderness. But no guarding. No rebound. No palpable mass. No bruit. GENITOURINARY: No tenderness over the bladder. No CVA tenderness. MUSCULOSKELETAL: Atraumatic. No peripheral edema. No cord. No tenderness along the deep venous system. No asymmetry. NEUROLOGICAL: Patient is alert and appropriate. No focal deficit noted. SKIN: No noted rashes. No diaphoresis. No notable pallor. PSYCHIATRIC: Patient is a bit tearful regarding the events which is understandable. Const Vital Signs: 10/29/22 05:23 07 07:12 Temperature 97.1 F L Temperature Source Temporal Pulse Rate 117 H 96 Respiratory Rate 23 H 16 Blood Pressure 116/92 H 111/76 Blood Pressure Mean 100 87 Pulse Ox 100 99 Oxygen Delivery Method Room Air Room Air <Dr. Shabbir Metzger DO - Last Filed: 10/29/22 12:03> Physical Exam Const Vital Signs: 10/29/22 05:23 10/29/22 07:12 Temperature 97.1 F L Temperature Source Temporal Pulse Rate 117 H 96 Respiratory Rate 23 H 16 Blood Pressure 116/92 H 111/76 Blood Pressure Mean 100 87 Pulse Ox 100 99 Oxygen Delivery Method Room Air Room Air MDM <Dr. Henok Bassett MD - Last Filed: 10/29/22 06:53> [facility] Narrative Medical decision making narrative: Patient CBC shows a mild elevation of white count that could even be a stress response. Her hemoglobin is low at 11.4. Although this is not markedly abnormal it does seem to be below her baseline by several grams. Her platelets are normal. The patient's electrolytes show normal creatinine but a high BUN. This might be from absorption of nitrogen this blood products in the gut. She has had discomfort in the epigastrium for a few days and did have blood in the stool. She also showed a high glucose at 235. She had been diabetic but this had improved after gastric bypass. She is given IV fluids here. Liver function test are not showing any marked abnormalities. Patient's lipase is normal. 06:20 patient's heart rate is now down to about 94. Patient's CT of the abdomen is pending at this time. Patient will be turned over to the morning physician. Certainly, if her CT shows an acute abnormality or perforation near her surgical site she will likely need transfer. If the CT shows no acute process we can see how she is doing and see if she is stable for discharge or needs to come in the hospital. Lab Data Attestation: I reviewed the patient's lab results. Labs: Laboratory Results - last 24 hr 07/11/23 07/11/23 05:35 09:35 WBC 14.4 H RBC 3.75 L Hgb 11.4 L Hct 34.5 L MCV 92.0 MCH 30.4 MCHC 33.0 RDW Std Deviation 42.3 RDW Coeff of Cristin 12.4 Plt Count 371 MPV 10.3 Immature Gran % (Auto) 0.600 Neut % (Auto) 58.1 Lymph % (Auto) 33.1 [place] % (Auto) 5.4 Eos % (Auto) 1.7 Baso % (Auto) 1.1 H Absolute Neuts (auto) 8.4 H Absolute Lymphs (auto) 4.75 H Nucleated RBC % 0 PT 14.0 INR 1.1 APTT 24.7 Sodium 137 Potassium 4.2 Chloride 107 Carbon Dioxide 24.0 Anion Gap 6 BUN 27 H Creatinine 0.64 Estim Creat Clear Calc 96.86 Est GFR (MDRD) Af Amer 129 Est GFR (MDRD) Non-Af 107 BUN/Creatinine Ratio 42.3 H Glucose 235 H Lactic Acid 2.1 H* 1.0 Calcium 8.1 L Total Bilirubin 0.40 AST 14 L ALT 18 Alkaline Phosphatase 56 Total Protein 6.0 L Albumin 3.1 L Globulin 2.9 Albumin/Globulin Ratio 1.1 Lipase 35 Radiography Diagnostic Testing: Clinical Impression(s) from Imaging Studies Abdomen/Pelvis CT 10/29/22 05:50 IMPRESSION: Fatty infiltration of the liver. Diffuse circumferential wall thickening of the distal stomach and first portion of the duodenum. Inflammatory process should be ruled out. Patient status post gastric bypass surgery. Small bilateral ovarian follicles. Electronically Signed: Jerome Alicea MD at 8:51 EDT , EKG Initial EKG: Comments: My independent interpretation the patient's EKG done for GI blood loss tachycardia and syncope shows sinus rhythm with tachycardic rate at 103. No ventricular ectopy. No acute ST elevation or depression. OR interval, QRS duration and QTc are normal. <Dr. Shabbir Metzger, - Last Filed: 10/29/22 12:03> [facility] Lab Data Labs: Laboratory Results - last 24 hr 10/29/22 10/29/22 05:35 09:35 WBC 14.4 H RBC 3.75 L Hgb 11.4 L Hct 34.5 L MCV 92.0 MCH 30.4 MCHC 33.0 RDW Std Deviation 42.3 RDW Coeff of Cristin 12.4 Plt Count 371 MPV 10.3 Immature Gran % (Auto) 0.600 Neut % (Auto) 58.1 Lymph % (Auto) 33.1 [place] % (Auto) 5.4 Eos % (Auto) 1.7 Baso % (Auto) 1.1 H Absolute Neuts (auto) 8.4 H Absolute Lymphs (auto) 4.75 H Nucleated RBC % 0 PT 14.0 INR 1.1 APTT 24.7 Sodium 137 Potassium 4.2 Chloride 107 Carbon Dioxide 24.0 Anion Gap 6 BUN 27 H Creatinine 0.64 Estim Creat Clear Calc 96.86 Est GFR (MDRD) Af Amer 129 Est GFR (MDRD) Non-Af 107 BUN/Creatinine Ratio 42.3 H Glucose 235 H Lactic Acid 2.1 H* 1.0 Calcium 8.1 L Total Bilirubin 0.40 AST 14 L ALT 18 Alkaline Phosphatase 56 Total Protein 6.0 L Albumin 3.1 L Globulin 2.9 Albumin/Globulin Ratio 1.1 Lipase 35 Radiography Diagnostic Testing: Clinical Impression(s) from Imaging Studies Abdomen/Pelvis CT 10/29/22 05:50 IMPRESSION: Fatty infiltration of the liver. Diffuse circumferential wall thickening of the distal stomach and first portion of the duodenum. Inflammatory process should be ruled out. Patient status post gastric bypass surgery. Small bilateral ovarian follicles. Electronically Signed: Jerome Alicea MD at 8:51 EDT , Treatment and Re-Evaluation :: Patient was signed out to me by Dr. Bassett at 7:30 AM. No acute events under my care. Patient's initial tachycardia and tachypnea resolved. Initial lactate elevated 2.1 resolved with [address] scan showed no evidence of acute perforation obstruction or other surgical pathology did show inflammation in the lower stomach and duodenum. Of note patient's hemoglobin decreased by approximately 3 g/dL was concerning for ongoing bleeding in the setting of active hematochezia. Patient noted to still be symptomatic and had 1 bloody bowel movement here in the emergency department despite stable vitals, no significant anemia I offered the patient admission for observation and urgent GI consultation. Spoke with hospitalist Dr. Boyle who agreed to admit the patient for observation. Discharge Plan Triage Chief Complaint: GI Bleed ED Provider: Henok Bassett Dx/Rx/DC Orders Clinical Impression: History of gastric bypass, Laceration of lower lip, Anemia, Elevated blood sugar, Syncope, Bright red blood per rectum, Hematemesis, Chipped tooth Primary Care Provider: Hermelinda Castillo
[2022-10-29 06:01] LABS: International Normalized Ratio 1.1
[2022-10-29 06:02] LABS: Partial Thromboplast Time 24.7 Seconds (24.1-36.2)
[2022-10-29 06:07] LABS: ALB/GLOB Ratio 1.1 RATIO (0.9-2.4); AST(SGOT) 14 U/L (15-37); Alanine Aminotransfer ALT/SGPT 18 U/L (13-56); Albumin, Serum 3.1 g/dL (3.2-5.0); Alkaline Phosphatase 56 U/L (45-117); Anion Gap 6 (5-15); BUN 27 mg/dL (7-18); BUN/Creat Ratio 42.3 RATIO (10-20); Calcium,Total 8.1 mg/dL (8.5-10.1); Chloride 107 mmol/L (98-107); Creatinine, Serum 0.64 mg/dL (0.55-1.02); EST Glomerular Filtration Rate 107 mL/min (>60); Est Glom Filt Rate - Afr Amer 129 mL/min (>60); Estimated Creatinine Clearance 96.86 ml/min; Globulin 2.9 g/dL (2.2-4.2); Glucose 235 mg/dL (74-106); Lipase 35 U/L (13-75); Potassium 4.2 mmol/L (3.5-5.1); Sodium Level 137 mmol/L (136-145)
[2022-10-29] MEDS: Ondansetron 4 MG/2 ML Vial IV (06:07)
[2022-10-29 06:25] LABS: Lactic Acid 2.1 mmol/L (0.4-1.9)
--- NOTE | 2022-10-29 07:32 | ED.RN ---
Repeat lactic drawn and sent.
--- NOTE | 2022-10-29 08:22 | ED.RN ---
Ambulatory to bathroom with 1 assist. Patient had small BM with blood tinge in bowl and on paper. Patient crying, emotional support offered. Returned to bed and warm blankets given. Awaiting results.
--- NOTE | 2022-10-29 08:30 | ED.RN ---
Patient up to bathroom with assistance. Became lightheaded and required a wheelchair back to bed.
[2022-10-29 09:43] LABS: Reflex Lactate? Y
--- NOTE | 2022-10-29 11:01 | NURSING ---
PCU OBS TERELETSKY GI BLEED
[2022-10-29 13:09] LABS: Hematocrit 30.9 % (37-47); Hemoglobin 10.9 g/dL (12.0-15.0)
[2022-10-29] MEDS: 0.9% Normal Saline 1,000 ML 100 ML IV ×2 (14:16→22:45)
--- NOTE | 2022-10-29 16:28 | HP.PCM.HOS_ITS ---
HPI - General General Date of Admission: 10/29/22 Date of Service: 10/29/22 Chief Complaint: Hematemesis, bright red rectal bleeding HPI Narrative ANGELA BUI, is a 46 F who presents to the emergency room at [facility] with a chief complaint of hematemesis early this morning and bright red rectal bleeding. Patient also complains of generalized mid abdominal bloating. Patient had a gastric ulcer diagnosed in March of last year. She has a past history of gastric bypass that was done in 2019. Patient states she felt lightheaded at home and passed out briefly striking her lip. Work-up in the emergency room showed her hemoglobin to be 11.4, patient states that she had 2 episodes of rectal bleeding in the emergency room with clots in the commode. Chemistry panel showed an elevated glucose of 235, creatinine was normal, lactic acid was elevated at 2.1. Patient will be placed in observation status on PCU, serial H&H's will be performed, patient will be seen in consultation by gastroenterology and probably undergo an EGD today. She will be placed on a Protonix drip and her medications will be held at this time. [facility] Medical History Breast cancer screening Chronic constipation Chronic left hip pain DM 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 Elevated blood pressure reading in office without diagnosis of hypertension Essential hypertension GERD (gastroesophageal reflux disease) Headache Hemangioma History of hiatal hernia History of IBS Hypertension IBS (irritable bowel syndrome) Localized swelling on left hand Low iron Mass of skin of left lower leg Migraine headache Non-smoker Preventative health care Right thyroid nodule Suspected COVID-19 virus infection Thyroid disease URI (upper respiratory infection) Vocal cord dysfunction Wears glasses Home Medications calcium carbonate 600 mg calcium (1,500 mg) tablet (Calcium) 600 mg PO DAILY 09/25/20 [History Last Taken Unknown] cholecalciferol (vitamin D3) 10 mcg (400 unit) capsule 10 mcg PO DAILY 09/25/20 [History Last Taken Unknown] cyanocobalamin (vitamin B-12) 50 mcg tablet (Vitamin B-12) 50 mcg PO DAILY 09/25/20 [History Last Taken Unknown] loratadine 10 mg capsule 10 mg PO DAILY 09/25/20 [History Last Taken Unknown] magnesium 200 mg tablet 200 mg PO DAILY 09/25/20 [History Last Taken Unknown] multivitamin 1 tab PO DAILY 09/25/20 [History Last Taken Unknown] ascorbic acid (vitamin C) 1,000 mg tablet 1 g PO DAILY 12/15/20 [History Last Taken Unknown] ferrous sulfate 325 mg (65 mg iron) tablet 325 mg PO TID 12/15/20 [History Last Taken Unknown] potassium 99 mg PO DAILY 12/15/20 [History Last Taken Unknown] sumatriptan succinate 50 mg tablet (Imitrex) See Rx Instructions PO .COMPLEX #14 tabs 07/24/21 [Rx Last Taken Unknown] sucralfate 100 mg/mL oral suspension (Carafate) 10 ml PO BID #200 mL 06/05/22 [Rx Last Taken Unknown] cyclobenzaprine 10 mg tablet See Rx Instructions .Route .COMPLEX #60 tabs 08/26/22 [Rx Last Taken Unknown] linaclotide 290 mcg capsule (Linzess) 290 mcg PO DAILY PRN PRN Diarrhea #90 caps 09/05/22 [Rx Last Taken Unknown] amlodipine 5 mg tablet See Rx Instructions .Route .COMPLEX #90 tabs 10/25/22 [Rx Last Taken Unknown] Allergy/AdvReac Type Severity Reaction Status Date / Time NSAIDS (Non-Steroidal Allergy unknown Verified 10/29/22 05:28 Anti-Inflamma Penicillins Allergy Rash Verified 10/29/22 05:28 sulfamethoxazole Allergy rash Verified 10/29/22 05:28 [From Bactrim] trimethoprim [From Bactrim] Allergy rash Verified 10/29/22 05:28 Family History Aunt Cancer uterine cancer Brother Asthma Sister Autoimmune disorder Other Breast cancer Diabetes Heart disease Hypertension Myocardial infarction Parkinson disease Surgical History Gastric bypass status for obesity H/O section History of hysterectomy History of surgical removal of ganglion cyst Hx of cholecystectomy S/P thyroid surgery Social History Smoking Status: Never smoker ROS Constitutional Constitutional: Denies anorexia, change in weight, fever(s), night sweats or weakness Eyes Eyes: Denies blurry vision, change in vision, discharge from eye(s) or eye pain Cardiovascular Cardiovascular: Reports lightheadedness; Denies chest pain, claudication, edema or palpitations Respiratory/Chest Respiratory/Chest: Denies cough, dyspnea, excessive phlegm production, hemoptysis, productive cough, shortness of breath at rest or shortness of breath with exertion Gastrointestinal Gastrointestinal: Reports abdominal pain, hematemesis, hematochezia, nausea and vomiting; Denies constipation, diarrhea or melena Genitourinary Genitourinary: Denies difficulty urinating, dysuria, hematuria, urinary frequency, urinary hesitancy, urinary incontinence or urinary urgency Musculoskeletal Musculoskeletal: Denies back pain, joint pain, joint stiffness, joint swelling, myalgias or neck pain Neurologic Neurologic: Denies abnormal gait, abnormal speech, confusion, disequilibrium, dizziness, focal weakness, headache(s), loss of vision, numbness, other visual disturbances, paresthesias, syncope or tingling Psychiatric Psychiatric: Denies anxiety, cognitive impairment, depression, irritability, mood swings or suicidal ideation Endocrine Endocrinology: Denies change in body appearance, cold intolerance, excessive sweating, heat intolerance, polydipsia or polyuria Hematologic/Lymphatic Hematologic/Lymphatic: Denies none, anemia, easy bleeding, easy bruising or lymphadenopathy Allergic/Immunologic Allergic/Immunologic: Denies rhinitis, urticaria, eczemia or asthma Vital Signs Vital Signs Vital Signs: 10/29/22 05:23 10/29/22 07:12 10/29/22 12:13 Temperature 97.1 F L 97 F L Temperature Source Temporal Oral Pulse Rate 117 H 96 68 Respiratory Rate 23 H 16 16 Respiratory Effort Respiratory Depth Respiratory Pattern Blood Pressure 116/92 H 111/76 136/78 H Blood Pressure Mean 100 87 97 Blood Pressure Source Blood Pressure Position Blood Pressure Location Pulse Ox 100 99 Oxygen Delivery Method Room Air Room Air 10/29/22 13:00 10/29/22 14:55 Temperature 98.2 F Temperature Source Oral Pulse Rate 111 H Respiratory Rate 16 Respiratory Effort Normal Non-Labored Respiratory Depth Normal Respiratory Pattern Normal Blood Pressure 105/84 H Blood Pressure Mean 91 Blood Pressure Source Monitor Blood Pressure Position Semi-Fowlers Blood Pressure Location Left Arm Pulse Ox 100 Oxygen Delivery Method Room Air Room Air Weight Weight: 92.6 kg Body Mass Index (BMI) 35.0 Physical Exam Const alert, oriented x3, no apparent distress, average body habitus and healthy appearing General Appearance: cooperative, well kempt and well developed Orientation / Consciousness: awake, oriented to person, oriented to place and oriented to time HEENT normocephalic and moist oral mucous membranes HEENT Narrative: Patient has an abrasion to her lower lip noted Eyes PERRL, EOMs intact bilaterally and conjunctivae normal Neck supple, no JVD, thyroid normal and no carotid bruits General: trachea midline Resp normal respiratory effort, no retractions, no use of accessory muscles and clear to auscultation bilaterally Auscultation: Negative for rales, rhonchi or wheezes Cardio regular rate, regular rhythm, S1 normal heart sound, S2 normal heart sound, no murmurs, no rub and no gallops GI normal to inspection, nondistended, normoactive bowel sounds, soft to palpation, non-tender and non-distended Extremity no clubbing, cyanosis or edema Skin no rashes or lesions noted General Skin Exam: no breakdown Neuro oriented x3, CN's II-XII intact bilaterally, moves all extremities, no focal motor deficits and no sensory deficits noted Sensorium / Orientation: awake and alert Speech: speech normal Psych affect normal Results Lab / Micro Data 10/29/22 12:57 10/29/22 05:35 Labs: Laboratory Results - last 24 hr 10/29/22 05:35: WBC 14.4 H, RBC 3.75 L, Hgb 11.4 L, Hct 34.5 L, MCV 92.0, MCH 30.4, MCHC 33.0, RDW Std Deviation 42.3, RDW Coeff of Cristin 12.4, Plt Count 371, MPV 10.3, Immature Gran % (Auto) 0.600, Neut % (Auto) 58.1, Lymph % (Auto) 33.1, [place] % (Auto) 5.4, Eos % (Auto) 1.7, Baso % (Auto) 1.1 H, Absolute Neuts (auto) 8.4 H, Absolute Lymphs (auto) 4.75 H, Nucleated RBC % 0, PT 14.0, INR 1.1, APTT 24.7, Sodium 137, Potassium 4.2, Chloride 107, Carbon Dioxide 24.0, Anion Gap 6, BUN 27 H, Creatinine 0.64, Estim Creat Clear Calc 96.86, Est GFR (MDRD) Af Amer 129, Est GFR (MDRD) Non-Af 107, BUN/Creatinine Ratio 42.3 H, Glucose 235 H, Lactic Acid 2.1 H*, Calcium 8.1 L, Total Bilirubin 0.40, AST 14 L, ALT 18, Alkaline Phosphatase 56, Total Protein 6.0 L, Albumin 3.1 L, Globulin 2.9, Albumin/Globulin Ratio 1.1, Lipase 35 10/29/22 09:35: Lactic Acid 1.0 10/29/22 12:57: Hgb 10.9 L, Hct 30.9 L Radiology Impression Abdomen/Pelvis CT 10/29/22 05:50 IMPRESSION: Fatty infiltration of the liver. Diffuse circumferential wall thickening of the distal stomach and first portion of the duodenum. Inflammatory process should be ruled out. Patient status post gastric bypass surgery. Small bilateral ovarian follicles. Electronically Signed: Jerome Alicea MD at 8:51 EDT , Assessment & Plan Assessment/Plan (1) Bright red blood per rectum: PLAN: Plan 1. Hematochezia and hematemesis-etiology unclear, patient will be seen by gastr oenterology, she was placed in observation status on PCU, serial H&H's will be obtained and she will be monitored. Patient was placed on a PPI drip #2 essential hypertension-patient's amlodipine will be held at this time due to her n.p.o. status, blood pressure will be monitored #3 hyperglycemia-patient's blood sugar will be monitored, I will repeat the patient's blood sugar on PCU Total clinical time spent by myself addressing patient's medical issues, reviewing all of her data, and collaborating with patient's care team: 55 minutes Charges/Coding Visit Charges Inpatient E&M: 05774 Init Hosp L2
--- NOTE | 2022-10-29 17:45 | EX.PCM.CON.G ---
HPI Consult Data Date of Consult: 10/29/22 HPI Narrative Reason for Consultation: GI bleed HPI Narrative: ANGELA BUI, is a 46 F who presents from home after having a syncopal event. She states that she was feeling nauseated and woke up about an hour or so before coming in. She ended up going to the bathroom. She vomited some blood and then called for her . She must of passed out. She states she was very scared when she saw the blood. She evidently fell and hit her lip and chipped her upper tooth and made a small cut on the inside of her lower lip. She is not having headache or neck pain. She then did have a bloody bowel movement. It was evidently more bright red and dark red. It was not black. She vomited red blood also. No black material. On review of systems I do find out that she has been having some epigastric aching for about 3 or 4 days but did not have the other symptoms. Patient also has a history of a bleeding ulcer. This was seen on upper endoscopy by Dr. Suresh. It was at the site of gastrojejunal anastomosis. She was on medicine for a period of time. It sounds like she was on Carafate but is on nothing at this time. She is not on a proton pump inhibitor. She also had a Shayy-en-Y gastric bypass by Dr. Romero in [place] in 2019 [facility] Medical History Breast cancer screening Chronic constipation Chronic left hip pain DM 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 Elevated blood pressure reading in office without diagnosis of hypertension Essential hypertension GERD (gastroesophageal reflux disease) Headache Hemangioma History of hiatal hernia History of IBS Hypertension IBS (irritable bowel syndrome) Localized swelling on left hand Low iron Mass of skin of left lower leg Migraine headache Non-smoker Preventative health care Right thyroid nodule Suspected COVID-19 virus infection Thyroid disease URI (upper respiratory infection) Vocal cord dysfunction Wears glasses Home Medications calcium carbonate 600 mg calcium (1,500 mg) tablet (Calcium) 600 mg PO DAILY 09/25/20 [History Last Taken Unknown] cholecalciferol (vitamin D3) 10 mcg (400 unit) capsule 10 mcg PO DAILY 09/25/20 [History Last Taken Unknown] cyanocobalamin (vitamin B-12) 50 mcg tablet (Vitamin B-12) 50 mcg PO DAILY 09/25/20 [History Last Taken Unknown] loratadine 10 mg capsule 10 mg PO DAILY 09/25/20 [History Last Taken Unknown] magnesium 200 mg tablet 200 mg PO DAILY 09/25/20 [History Last Taken Unknown] multivitamin 1 tab PO DAILY 09/25/20 [History Last Taken Unknown] ascorbic acid (vitamin C) 1,000 mg tablet 1 g PO DAILY 12/15/20 [History Last Taken Unknown] ferrous sulfate 325 mg (65 mg iron) tablet 325 mg PO TID 12/15/20 [History Last Taken Unknown] potassium 99 mg PO DAILY 12/15/20 [History Last Taken Unknown] sumatriptan succinate 50 mg tablet (Imitrex) See Rx Instructions PO .COMPLEX #14 tabs 07/24/21 [Rx Last Taken Unknown] sucralfate 100 mg/mL oral suspension (Carafate) 10 ml PO BID #200 mL 06/05/22 [Rx Last Taken Unknown] cyclobenzaprine 10 mg tablet See Rx Instructions .Route .COMPLEX #60 tabs 08/26/22 [Rx Last Taken Unknown] linaclotide 290 mcg capsule (Linzess) 290 mcg PO DAILY PRN PRN Diarrhea #90 caps 09/05/22 [Rx Last Taken Unknown] amlodipine 5 mg tablet See Rx Instructions .Route .COMPLEX #90 tabs 10/25/22 [Rx Last Taken Unknown] Allergy/AdvReac Type Severity Reaction Status Date / Time NSAIDS (Non-Steroidal Allergy unknown Verified 10/29/22 05:28 Anti-Inflamma Penicillins Allergy Rash Verified 10/29/22 05:28 sulfamethoxazole Allergy rash Verified 10/29/22 05:28 [From Bactrim] trimethoprim [From Bactrim] Allergy rash Verified 10/29/22 05:28 Family History Aunt Cancer uterine cancer Brother Asthma Sister Autoimmune disorder Other Breast cancer Diabetes Heart disease Hypertension Myocardial infarction Parkinson disease Surgical History Gastric bypass status for obesity H/O section History of hysterectomy History of surgical removal of ganglion cyst Hx of cholecystectomy S/P thyroid surgery Social History Smoking Status: Never smoker ROS Constitutional Constitutional: Denies anorexia, change in weight, fever(s), night sweats or weakness Eyes Eyes: Denies blurry vision, change in vision, discharge from eye(s) or eye pain Cardiovascular Cardiovascular: Reports lightheadedness; Denies chest pain, claudication, edema or palpitations Respiratory/Chest Respiratory/Chest: Denies cough, dyspnea, excessive phlegm production, hemoptysis, productive cough, shortness of breath at rest or shortness of breath with exertion Gastrointestinal Gastrointestinal: Reports abdominal pain, hematemesis, hematochezia, nausea and vomiting; Denies constipation, diarrhea or melena Genitourinary Genitourinary: Denies difficulty urinating, dysuria, hematuria, urinary frequency, urinary hesitancy, urinary incontinence or urinary urgency Musculoskeletal Musculoskeletal: Denies back pain, joint pain, joint stiffness, joint swelling, myalgias or neck pain Neurologic Neurologic: Denies abnormal gait, abnormal speech, confusion, disequilibrium, dizziness, focal weakness, headache(s), loss of vision, numbness, other visual disturbances, paresthesias, syncope or tingling Psychiatric Psychiatric: Denies anxiety, cognitive impairment, depression, irritability, mood swings or suicidal ideation Endocrine Endocrinology: Denies change in body appearance, cold intolerance, excessive sweating, heat intolerance, polydipsia or polyuria Hematologic/Lymphatic Hematologic/Lymphatic: Denies none, anemia, easy bleeding, easy bruising or lymphadenopathy Allergic/Immunologic Allergic/Immunologic: Denies rhinitis, urticaria, eczemia or asthma Physical Exam Const alert, oriented x3, no apparent distress, average body habitus and healthy appearing General Appearance: cooperative, well kempt and well developed Orientation / Consciousness: awake, oriented to person, oriented to place and oriented to time HEENT normocephalic and moist oral mucous membranes HEENT Narrative: Patient has an abrasion to her lower lip noted Eyes PERRL, EOMs intact bilaterally and conjunctivae normal Neck supple, no JVD, thyroid normal and no carotid bruits General: trachea midline Resp normal respiratory effort, no retractions, no use of accessory muscles and clear to auscultation bilaterally Auscultation: Negative for rales, rhonchi or wheezes Cardio regular rate, regular rhythm, S1 normal heart sound, S2 normal heart sound, no murmurs, no rub and no gallops GI normal to inspection, nondistended, normoactive bowel sounds, soft to palpation, non-tender and non-distended Extremity no clubbing, cyanosis or edema Skin no rashes or lesions noted General Skin Exam: no breakdown Neuro oriented x3, CN's II-XII intact bilaterally, moves all extremities, no focal motor deficits and no sensory deficits noted Sensorium / Orientation: awake and alert Speech: speech normal Psych affect normal Lab / Micro Data 10/29/22 12:57 10/29/22 05:35 Labs: Laboratory Results - last 24 hr 10/29/22 05:35: WBC 14.4 H, RBC 3.75 L, Hgb 11.4 L, Hct 34.5 L, MCV 92.0, MCH 30.4, MCHC 33.0, RDW Std Deviation 42.3, RDW Coeff of Cristin 12.4, Plt Count 371, MPV 10.3, Immature Gran % (Auto) 0.600, Neut % (Auto) 58.1, Lymph % (Auto) 33.1, [place] % (Auto) 5.4, Eos % (Auto) 1.7, Baso % (Auto) 1.1 H, Absolute Neuts (auto) 8.4 H, Absolute Lymphs (auto) 4.75 H, Nucleated RBC % 0, PT 14.0, INR 1.1, APTT 24.7, Sodium 137, Potassium 4.2, Chloride 107, Carbon Dioxide 24.0, Anion Gap 6, BUN 27 H, Creatinine 0.64, Estim Creat Clear Calc 96.86, Est GFR (MDRD) Af Amer 129, Est GFR (MDRD) Non-Af 107, BUN/Creatinine Ratio 42.3 H, Glucose 235 H, Lactic Acid 2.1 H*, Calcium 8.1 L, Total Bilirubin 0.40, AST 14 L, ALT 18, Alkaline Phosphatase 56, Total Protein 6.0 L, Albumin 3.1 L, Globulin 2.9, Albumin/Globulin Ratio 1.1, Lipase 35 10/29/22 09:35: Lactic Acid 1.0 10/29/22 12:57: Hgb 10.9 L, Hct 30.9 L Radiology Impression Abdomen/Pelvis CT 10/29/22 05:50 IMPRESSION: Fatty infiltration of the liver. Diffuse circumferential wall thickening of the distal stomach and first portion of the duodenum. Inflammatory process should be ruled out. Patient status post gastric bypass surgery. Small bilateral ovarian follicles. Electronically Signed: Jerome Alicea MD at 8:51 EDT , Assessment & Plan Assessment/Plan (1) Bright red blood per rectum: PLAN: Plan 46-year-old with history of gastric bypass and history of anastomotic ulcer bleed comes in with abdominal pain, syncope status post fall with mild hematemesis and melanotic stools with hematochezia. Differential diagnosis does include anastomotic ulcer. Differential diagnosis also includes ischemic colitis and gastric duodenal anastomosis. She should undergo an upper endoscopy if that is normal she should undergo colonoscopy. She was explained alternatives, risk, benefits including outstanding bleeding, infection, sepsis, perforation, need for emergent and . She have an ASA of 3. Charges/Coding Visit Charges Inpatient E&M: 76856 Init Hosp L3
--- NOTE | 2022-10-29 18:24 | OP.EGD_ITS ---
Patient Name: Catherine Jaramillo Procedure Date: 10/29/2022 5:38 PM Date of : 1975 Age: 46 Procedure: Upper GI endoscopy Indications: Hematochezia, Melena Providers: Ramez Villatoro DO Medicines: Monitored Anesthesia Care Patient Profile: This is a 46 year old female. Refer to note in patient chart for documentation of history and physical. Patient has symptoms of acute epigastric abdominal pain, acute nausea and acute vomiting. Complications: No immediate complications. Procedure: Pre-Anesthesia Assessment: - Prior to the procedure, a History and Physical was performed, and patient medications and allergies were reviewed. The patient is competent. The risks and benefits of the procedure and the sedation options and risks were discussed with the patient. All questions were answered and informed consent was obtained. Patient identification and proposed procedure were verified in the pre-procedure area. Mental Status Examination: alert and oriented. Prophylactic Antibiotics: The patient does not require prophylactic antibiotics. Prior Anticoagulants: The patient has taken no previous anticoagulant or antiplatelet agents. After reviewing the risks and benefits, the patient was deemed in satisfactory condition to undergo the procedure. The anesthesia plan was to use minimal sedation / analgesia (anxiolysis). Immediately prior to administration of medications, the patient was re-assessed for adequacy to receive sedatives. The heart rate, respiratory rate, oxygen saturations, blood pressure, adequacy of pulmonary ventilation, and response to care were monitored throughout the procedure. The physical status of the patient was re-assessed after the procedure. After obtaining informed consent, the endoscope was passed under direct vision. Throughout the procedure, the patient's blood pressure, pulse, and oxygen saturations were monitored continuously. The was introduced through the mouth, and advanced to the second part of duodenum. The upper GI endoscopy was accomplished without difficulty. The patient tolerated the procedure well. Scope In: Scope Out: 6:13:14 PM Findings: The examined esophagus was normal. Evidence of a Shayy-en-Y gastrojejunostomy was found. The gastrojejunal anastomosis was characterized by ulceration. This area was treated with heater probe. This was traversed. The biufi-zv-kogjspi limb was characterized by healthy appearing mucosa. The jejunojejunal anastomosis was characterized by ulceration. This area was injected with epinephrine and cauterized with heater probe. The vcuwkabl-tp-wipnghi limb was examined. Area was successfully injected with 10 mL of a 1:10,000 solution of epinephrine for hemostasis. Estimated blood loss was minimal. Two 3 mm angiodysplastic lesions with bleeding were found in the jejunum. Coagulation for hemostasis using heater probe was successful. Estimated blood loss was minimal. Red blood was found in the gastric body. Impression: - Normal esophagus. - Shayy-en-Y gastrojejunostomy with gastrojejunal anastomosis characterized by ulceration. Injected. 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 Treated with a heater probe. - Red blood in the gastric body. - No specimens collected. Recommendation: - Return patient to hospital [facility] for ongoing care. - NPO. - Continue present medications. Procedure Code(s): --- Professional --- 75579, Esophagogastroduodenoscopy, flexible, transoral; with control of bleeding, any method CPT copyright 2017 [employer]. All rights reserved. The codes documented in this report are preliminary and upon real estate transaction manager review may be revised to meet current compliance requirements. Ramez Villatoro DO 10/29/2022 6:24:02 PM This report has been signed electronically. Number of Addenda: 0 Note Initiated On: 10/29/2022 5:38 PM
--- NOTE | 2022-10-29 18:25 | OP.CCLET_ITS ---
10/29/2022 Hermelinda Castillo MD [address] [place] [address] [place] [address] Re : Upper GI endoscopy procedure for Catherine Jaramillo Dear Dr. Castillo This procedure was performed on Saturday, October 29, 2022. My impressions and recommendations are as follows: Impressions : - Normal esophagus. - Shayy-en-Y gastrojejunostomy with gastrojejunal anastomosis characterized by ulceration. Injected. 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 Treated with a heater probe. - Red blood in the gastric body. - No specimens collected. Recommendations : - Return patient to hospital [facility] for ongoing care. - NPO. - Continue present medications. My findings are described in the full procedure note, which is enclosed. If I can be of further assistance, please feel free to contact me at . Sincerely, Ramez Villatoro, 10/29/2022 6:24:02 PM This report has been signed electronically.
[2022-10-29 19:43] LABS: Absolute Lymphocyte Count 3.13 X10^3/uL (0.83-4.51); Absolute Neutrophil Count 10.4 X10^3/uL (2.0-7.7); Basophil% 0.7 % (0-1); Eosinophil# 0.06 X10^3/uL; Eosinophils% 0.4 % (0-5); Hematocrit 28.9 % (37-47); Hemoglobin 9.4 g/dL (12.0-15.0); Lymphocyte # 3.13 X10^3/ul (0.83-4.51); Lymphocyte % 21.5 % (19-41); Mean Corp Hgb Conc 32.5 g/dL (32-36); Mean Corpuscular Hgb 30.2 pg (27.0-32.0); Mean Corpuscular Volume 92.9 fL (81-99); Mean Platelet Vol. 10.2 fl (6.2-12.0); Monocyte# 0.79 X10^3/uL; Monocyte% 5.4 % (0-10); NRBC Flagged by Analyzer 0 % (0-5); Neutrophil # 10.37 X10^3/uL (2.7-7.7); Neutrophil % 71.4 % (47-70); Platelet Count 274 K/mm3 (150-450); RBC Distribution Width CV 12.9 % (11.6-14.6); RBC Distribution Width SD 43.6 fl (35.1-43.9); Red Blood Count 3.11 M/mm3 (4.2-5.4); White Blood Count 14.5 K/mm3 (4.4-11.0)
[2022-10-29] MEDS: 0.9% Saline Lock 10 ML Syringe IV (22:51)
[2022-10-29 23:45] LABS: Hematocrit 25.5 % (37-47); Hemoglobin 8.9 g/dL (12.0-15.0)
[2022-10-30] MEDS: Ondansetron 4 MG/2 ML Vial IV (00:39)
[2022-10-30] MEDS: 0.9% Saline Lock 10 ML Syringe IV (00:42)
[2022-10-30 03:31] VITALS: BP 129/85; PULSE 84; RESP 18; TEMP 36.6; O2SAT 99
[2022-10-30 03:40] VITALS: BP 129/85; PULSE 84; RESP 18; TEMP 36.6; O2SAT 99
[2022-10-30] MEDS: Acetaminophen 325 MG Tablet 650 MG PO ×2 (07:02→12:26)
[2022-10-30 07:32] LABS: Anion Gap 4 (5-15); BUN 15 mg/dL (7-18); Calcium,Total 7.6 mg/dL (8.5-10.1); Chloride 113 mmol/L (98-107); Creatinine, Serum 0.46 mg/dL (0.55-1.02); EST Glomerular Filtration Rate 158 mL/min (>60); Est Glom Filt Rate - Afr Amer 191 mL/min (>60); Estimated Creatinine Clearance 134.77 ml/min; Glucose 105 mg/dL (74-106); Potassium 3.9 mmol/L (3.5-5.1); Sodium Level 141 mmol/L (136-145)
[2022-10-30 07:55] VITALS: BP 114/69; PULSE 79; RESP 16; TEMP 36.6; O2SAT 100
[2022-10-30] MEDS: 0.9% Normal Saline 1,000 ML 100 ML IV ×2 (07:58→17:09)
--- NOTE | 2022-10-30 08:23 | PCM.PN.HOSP ---
Reason for Visit Reason for Visit: Diagnoses Hemorrhage of anus and rectum (10/29/22) Subjective Subjective Patient is a 46-year-old lady who presented with hematochezia and hematemesis Objective Data Objective Data Vital Signs: Vital Signs Temp Pulse Resp BP Pulse Ox O2 Del Method 97.9 F 79 16 114/69 100 Room Air 10/30/22 07:55 10/30/22 07:55 10/30/22 07:55 10/30/22 07:55 10/30/22 07:55 10/30/22 07:55 Oxygen Delivery Method Room Air Weight: 92.6 kg Body Mass Index (BMI) 35.0 Intake & Output: Intake and Output for Last 24 Hours 10/28/22 10/29/22 10/30/22 23:59 23:59 23:59 Intake Total / 1006.67 / 1006.67 Balance 1006.67 / 1006.67 Lab / Micro Data 10/29/22 23:13 10/30/22 06:20 Labs: Laboratory Results - last 24 hr 10/29/22 09:35: Lactic Acid 1.0 10/29/22 12:57: Hgb 10.9 L, Hct 30.9 L 10/29/22 19:20: WBC 14.5 H, RBC 3.11 L, Hgb 9.4 L, Hct 28.9 L, MCV 92.9, MCH 30.2, MCHC 32.5, RDW Std Deviation 43.6, RDW Coeff of Cristin 12.9, Plt Count 274, MPV 10.2, Immature Gran % (Auto) 0.600, Neut % (Auto) 71.4 H, Lymph % (Auto) 21.5, [place] % (Auto) 5.4, Eos % (Auto) 0.4, Baso % (Auto) 0.7, Absolute Neuts (auto) 10.4 H, Absolute Lymphs (auto) 3.13, Nucleated RBC % 0 10/29/22 23:13: Hgb 8.9 L, Hct 25.5 L 10/30/22 06:20: Sodium 141, Potassium 3.9, Chloride 113 H, Carbon Dioxide 24.0, Anion Gap 4 L, BUN 15, Creatinine 0.46 L, Estim Creat Clear Calc 134.77, Est GFR (MDRD) Af Amer 191, Est GFR (MDRD) Non-Af 158, BUN/Creatinine Ratio 33.0 H, Glucose 105, Calcium 7.6 L Radiography Diagnostic Testing: Radiology Impression Abdomen/Pelvis CT 10/29/22 05:50 IMPRESSION: Fatty infiltration of the liver. Diffuse circumferential wall thickening of the distal stomach and first portion of the duodenum. Inflammatory process should be ruled out. Patient status post gastric bypass surgery. Small bilateral ovarian follicles. Electronically Signed: Jerome Alicea MD at 8:51 EDT , Physical Exam Narrative GENERAL: cooperative HEENT: Atraumatic; normocephalic EYES; Anicteric, Normal Conjunctiva NECK; supple, normal thyroid, RESPIRATORY: Diminished to auscultation CARDIOVASCULAR: Regular S1 S2, GI: soft, normoactive bowel sounds, : No Renal angle tenderness; EXTREMITIES: No edema, no clubbing, MUSCULOSKELETAL: no muscle wasting NEURO: Awake; no lateralizing signs. SKIN: No Rash PSYCH; Flat affect Assessment & Plan Assessment/Plan (1) Bright red blood per rectum: PLAN: Plan Patient is a 46-year-old lady who presented with hematochezia and hematemesis 1. Acute GI bleed ? Patient underwent upper GI endoscopy by Dr. Villatoro on 10/29/2022 findings included - Normal esophagus. - Shayy-en-Y gastrojejunostomy with gastrojejunal anastomosis characterized by ulceration. Injected. 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 Treated with a heater probe. - Red blood in the gastric body. Patient on PPI 2. Class I obesity with BMI of 35 With previous Shayy-en-Y gastrojejunostomy 3. Essential hypertension ? On amlodipine held on admission plan is to resume prior to discharge 4. Hyperglycemia ? Resolved ordered hemoglobin A1c to rule out diabetes 5. Chronic migraine ? Currently stable 6. DVT prophylaxis ? Low risk moreover contraindicated given patient GI bleed Time spent in the patient's overall evaluation,decision-making process, review of diagnostic data, adjustment of management, discussion with other providers, nursing nursing and ancillary staff involved in patient's care documentation, 35 Minutes Charges/Coding Visit Charges Inpatient E&M: 28682 Subs Hosp L2
[2022-10-30] MEDS: miSOPROStol 200 MCG Tablet PO ×4 (08:40→21:12)
[2022-10-30 10:52] LABS: Absolute Lymphocyte Count 2.22 X10^3/uL (0.83-4.51); Absolute Neutrophil Count 7.6 X10^3/uL (2.0-7.7); Basophil% 0.9 % (0-1); Eosinophil# 0.07 X10^3/uL; Eosinophils% 0.7 % (0-5); Hematocrit 24.3 % (37-47); Lymphocyte # 2.22 X10^3/ul (0.83-4.51); Mean Corp Hgb Conc 32.9 g/dL (32-36); Mean Corpuscular Hgb 30.4 pg (27.0-32.0); Mean Corpuscular Volume 92.4 fL (81-99); Mean Platelet Vol. 10.7 fl (6.2-12.0); Monocyte# 0.56 X10^3/uL; Monocyte% 5.3 % (0-10); NRBC Flagged by Analyzer 0 % (0-5); Neutrophil # 7.58 X10^3/uL (2.7-7.7); Neutrophil % 71.7 % (47-70); Platelet Count 244 K/mm3 (150-450); RBC Distribution Width CV 12.8 % (11.6-14.6); RBC Distribution Width SD 42.2 fl (35.1-43.9); Red Blood Count 2.63 M/mm3 (4.2-5.4); White Blood Count 10.6 K/mm3 (4.4-11.0)
[2022-10-30 11:04] LABS: Magnesium 1.8 mg/dL (1.6-2.6); Phosphorus 3.5 mg/dL (2.5-4.9)
[2022-10-30 14:00] VITALS: BP 127/72; PULSE 73; RESP 16; TEMP 36.1; O2SAT 100
--- NOTE | 2022-10-30 17:11 | EX.PCM.PN.GI ---
Subjective Subjective Patient underwent an upper endoscopy yesterday for acute GI bleed after a syncopal episode at home. She had a couple more loose bowel movements overnight GI bleeding today. She is hungry and would like her diet advanced. Objective Data Objective Data Vital Signs: Vital Signs Temp Pulse Resp BP Pulse Ox O2 Del Method 97 F L 73 16 127/72 H 100 Room Air 10/30/22 14:00 10/30/22 14:00 10/30/22 14:00 10/30/22 14:00 10/30/22 14:00 10/30/22 14:00 Oxygen Delivery Method Room Air Weight: 204 lb 2.369 oz Body Mass Index (BMI) 35.0 Intake & Output: Intake and Output for Last 24 Hours 10/28/22 10/29/22 10/30/22 23:59 23:59 23:59 Intake Total 1966.50 / 1966.50 1902.17 / 1902.17 Balance 1966.50 / 1966.50 1902.17 / 1902.17 Lab / Micro Data 10/30/22 06:20 10/30/22 06:20 Labs: Laboratory Results - last 24 hr 10/29/22 19:20: WBC 14.5 H, RBC 3.11 L, Hgb 9.4 L, Hct 28.9 L, MCV 92.9, MCH 30.2, MCHC 32.5, RDW Std Deviation 43.6, RDW Coeff of Cristin 12.9, Plt Count 274, MPV 10.2, Immature Gran % (Auto) 0.600, Neut % (Auto) 71.4 H, Lymph % (Auto) 21.5, [place] % (Auto) 5.4, Eos % (Auto) 0.4, Baso % (Auto) 0.7, Absolute Neuts (auto) 10.4 H, Absolute Lymphs (auto) 3.13, Nucleated RBC % 0 10/29/22 23:13: Hgb 8.9 L, Hct 25.5 L 10/30/22 06:20: WBC 10.6, RBC 2.63 L, Hgb 8.0 L, Hct 24.3 L, MCV 92.4, MCH 30.4, MCHC 32.9, RDW Std Deviation 42.2, RDW Coeff of Cristin 12.8, Plt Count 244, MPV 10.7, Immature Gran % (Auto) 0.400, Neut % (Auto) 71.7 H, Lymph % (Auto) 21.0, [place] % (Auto) 5.3, Eos % (Auto) 0.7, Baso % (Auto) 0.9, Absolute Neuts (auto) 7.6, Absolute Lymphs (auto) 2.22, Nucleated RBC % 0, Sodium 141, Potassium 3.9, Chloride 113 H, Carbon Dioxide 24.0, Anion Gap 4 L, BUN 15, Creatinine 0.46 L, Estim Creat Clear Calc 134.77, Est GFR (MDRD) Af Amer 191, Est GFR (MDRD) Non-Af 158, BUN/Creatinine Ratio 33.0 H, Glucose 105, Calcium 7.6 L, Phosphorus 3.5, Magnesium 1.8 Physical Exam Narrative GENERAL: cooperative HEENT: Atraumatic; normocephalic EYES; Anicteric, Normal Conjunctiva NECK; supple, normal thyroid, RESPIRATORY: Diminished to auscultation CARDIOVASCULAR: Regular S1 S2, GI: soft, normoactive bowel sounds, : No Renal angle tenderness; EXTREMITIES: No edema, no clubbing, MUSCULOSKELETAL: no muscle wasting NEURO: Awake; no lateralizing signs. SKIN: No Rash PSYCH; Flat affect Assessment & Plan Assessment/Plan (1) Anemia: QUALIFIERS: Anemia type: unspecified type Qualified Code(s): D64.9 - Anemia, unspecified (2) Hematemesis: QUALIFIERS: Nausea presence: with nausea Qualified Code(s): K92.0 - Hematemesis (3) Bright red blood per rectum: PLAN: 46-year-old with history of gastric bypass and discovered to have an anastomotic ulcer approximately 6 months ago. She presented with acute episode hematemesis, hematochezia and syncope at home status post fall. She underwent emergent endoscopy yesterday was discovered to have large anastomotic ulcer that was treated with clipping, epinephrine and cauterization. She was also discovered to have an angiodysplastic lesion near the jejunal jejunal anastomosis that was also treated endoscopically. Her hemoglobin has been slowly trending down. She is on Carafate and would like her diet advanced. I will also start her on Misoprostol therapy. Hopefully her hemoglobin is stabilized and she does not need a repeat upper endoscopy. Charges/Coding Visit Charges Inpatient E&M: 27239 Subs Hosp L3
[2022-10-30 20:00] VITALS: BP 110/62; PULSE 73; RESP 16; TEMP 36.7; O2SAT 100
[2022-10-31] VITALS (11 sets, daily range): BP systolic 105–132; BP diastolic 68–90; PULSE 68–92; RESP 15–16; TEMP 36.3–36.8; O2SAT 96–100
[2022-10-31] MEDS: Acetaminophen 325 MG Tablet 650 MG PO ×2 (02:07→08:15)
[2022-10-31] MEDS: 0.9% Normal Saline 1,000 ML 100 ML IV ×2 (02:46→13:41)
[2022-10-31 06:55] LABS: Hematocrit 22.9 % (37-47); Hemoglobin 7.6 g/dL (12.0-15.0)
--- NOTE | 2022-10-31 08:10 | PCM.PN.HOSP ---
Reason for Visit Reason for Visit: Diagnoses Anemia, unspecified (10/29/22) Hemorrhage of anus and rectum (10/29/22) Hematemesis (10/29/22) Subjective Subjective Since seen hemoglobin did drop to 7.6. Plan is for patient to undergo repeat EGD. Patient also complains of significant headache and nausea given Phenergan for symptomatic relief Objective Data Objective Data Vital Signs: Vital Signs Temp Pulse Resp BP Pulse Ox O2 Del Method 98.0 F 92 16 132/75 H 100 Room Air 10/31/22 06:00 10/31/22 07:00 10/31/22 06:00 10/31/22 06:00 10/31/22 06:00 10/31/22 06:29 Oxygen Delivery Method Room Air Weight: 92.6 kg Body Mass Index (BMI) 35.0 Intake & Output: Intake and Output for Last 24 Hours 10/29/22 10/30/22 10/31/22 23:59 23:59 23:59 Intake Total 50 / 50 2097. / 2097. 1100 / 1100 Balance 50 / 50 / 2097. 1100 / 1100 Lab / Micro Data 10/31/22 06:42 10/30/22 06:20 Labs: Laboratory Results - last 24 hr 10/30/22 06:20: WBC 10.6, RBC 2.63 L, Hgb 8.0 L, Hct 24.3 L, MCV 92.4, MCH 30.4, MCHC 32.9, RDW Std Deviation 42.2, RDW Coeff of Cristin 12.8, Plt Count 244, MPV 10.7, Immature Gran % (Auto) 0.400, Neut % (Auto) 71.7 H, Lymph % (Auto) 21.0, [place] % (Auto) 5.3, Eos % (Auto) 0.7, Baso % (Auto) 0.9, Absolute Neuts (auto) 7.6, Absolute Lymphs (auto) 2.22, Nucleated RBC % 0, Phosphorus 3.5, Magnesium 1.8 10/31/22 06:42: Hgb 7.6 L, Hct 22.9 L Physical Exam Narrative GENERAL: cooperative HEENT: Atraumatic; normocephalic EYES; Anicteric, Normal Conjunctiva NECK; supple, normal thyroid, RESPIRATORY: Diminished to auscultation CARDIOVASCULAR: Regular S1 S2, GI: soft, normoactive bowel sounds, : No Renal angle tenderness; EXTREMITIES: No edema, no clubbing, MUSCULOSKELETAL: no muscle wasting NEURO: Awake; no lateralizing signs. SKIN: No Rash PSYCH; Flat affect HEENT normocephalic and moist oral mucous membranes Eyes PERRL, EOMs intact bilaterally and conjunctivae normal Neck supple, no JVD, thyroid normal and no carotid bruits General: trachea midline Resp normal respiratory effort, no retractions, no use of accessory muscles and clear to auscultation bilaterally Auscultation: Negative for rales, rhonchi or wheezes Cardio regular rate, regular rhythm, S1 normal heart sound, S2 normal heart sound, no murmurs, no rub and no gallops GI normal to inspection, nondistended, normoactive bowel sounds, soft to palpation, non-tender and non-distended Extremity no clubbing, cyanosis or edema Skin no rashes or lesions noted General Skin Exam: no breakdown Neuro oriented x3, CN's II-XII intact bilaterally, moves all extremities, no focal motor deficits and no sensory deficits noted Sensorium / Orientation: awake and alert Speech: speech normal Psych affect normal Assessment & Plan Assessment/Plan (1) Bright red blood per rectum: PLAN: Plan Patient is a 46-year-old lady who presented with hematochezia and hematemesis 1. Acute GI bleed ? Patient underwent upper GI endoscopy by Dr. Villatoro on 10/29/2022 findings included - Normal esophagus. - Shayy-en-Y gastrojejunostomy with gastrojejunal anastomosis characterized by ulceration. Injected. 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 Treated with a heater probe. - Red blood in the gastric body. Patient on PPI ? 10/31/2022; hemoglobin did drop to 7.6 plan is for patient to undergo repeat EGD 2. Anemia ? Secondary to acute blood loss anemia from patient angiodysplastic lesion in the jejunum as well as ulceration from her Shayy-en-Y gastrojejunostomy site. Patient has been typed and screened yet to be transfused. Plan is to transfuse if hemoglobin falls below 7 or patient is deemed to be symptomatic 3. Acute migrainous headache ? Patient treated with Phenergan for symptomatic relief 4. Class I obesity with BMI of 35 With previous Shayy-en-Y gastrojejunostomy 5. Essential hypertension ? On amlodipine held on admission plan is to resume prior to discharge 6 Resolved ordered hemoglobin A1c to rule out diabetes 7. DVT prophylaxis ? Low risk moreover contraindicated given patient GI bleed Time spent in the patient's overall evaluation,decision-making process, review of diagnostic data, adjustment of management, discussion with other providers, nursing nursing and ancillary staff involved in patient's care documentation, 50 Minutes Charges/Coding Visit Charges Inpatient E&M: 71123 [facility] Hosp L3
[2022-10-31] MEDS: proMETHazine 25 MG/ML Syringe IM (11:14)
--- NOTE | 2022-10-31 14:08 | CASEMGMT ---
Per admission questions patient does not have a Healthcare Power of Investment Executive or Healthcare Living Will. Patient declined information. Chantal Arteaga [employer]
[2022-10-31 14:59] LABS: Hemoglobin A1c 5.2 % (3.8-5.6)
--- NOTE | 2022-10-31 15:00 | CASEMGMT ---
RN CM Face to Face with patient for initial transition planning/care coordination assessment. RN CM introduced self and role at [facility]. Patient lying in bed, alert and oriented, family at bedside. Patient willing to participate in assessment and is able to answer all questions appropriately. Care providers, pharmacy, and demographics verified. Patient wishes to discharge home, denies need for home health at this time. Patient states she has no further needs or concerns at this time. CM to follow for discharge planning needs that may arise. PCP: Jonathan Specialists: surgeon Mata Suresh Pharmacy: [facility] retail Insurance: [id number] [facility] Prescription Benefit: yes Living Will/HPOA: none LNOK: Living Arrangements: Patient lives with and children in a 2 story home with bed and bath on first floor, 3 steps and railing to enter the home. Patient states she is independent at home. Transportation: self, DME/HHC: Patient has shower chair, BSC, cpap, pulse ox at home. No previous HHC or SNF. Disposition Plan: Patient to discharge home with family support and follow-up plans in place. Sophie YAN, RN, CM
--- NOTE | 2022-10-31 16:50 | OP.EGD_ITS ---
Patient Name: Catherine Jaramillo Procedure Date: 10/31/2022 4:27 PM Date of : 1975 Age: 46 Procedure: Upper GI endoscopy Indications: Melena Providers: Ramez Villatoro DO Medicines: Monitored Anesthesia Care Patient Profile: This is a 46 year old female. Refer to note in patient chart for documentation of history and physical. Patient has symptoms of acute epigastric abdominal pain. Complications: No immediate complications. Procedure: Pre-Anesthesia Assessment: - Prior to the procedure, a History and Physical was performed, and patient medications and allergies were reviewed. The patient is competent. The risks and benefits of the procedure and the sedation options and risks were discussed with the patient. All questions were answered and informed consent was obtained. Patient identification and proposed procedure were verified in the pre-procedure area. Mental Status Examination: alert and oriented. Airway Examination: normal oropharyngeal airway and neck mobility. Respiratory Examination: clear to auscultation. CV Examination: normal. Prophylactic Antibiotics: The patient does not require prophylactic antibiotics. Prior Anticoagulants: The patient has taken no previous anticoagulant or antiplatelet agents. ASA Grade Assessment: II - A patient with mild systemic disease. After reviewing the risks and benefits, the patient was deemed in satisfactory condition to undergo the procedure. The anesthesia plan was to use monitored anesthesia care (MAC). Immediately prior to administration of medications, the patient was re-assessed for adequacy to receive sedatives. The heart rate, respiratory rate, oxygen saturations, blood pressure, adequacy of pulmonary ventilation, and response to care were monitored throughout the procedure. The physical status of the patient was re-assessed after the procedure. After obtaining informed consent, the endoscope was passed under direct vision. Throughout the procedure, the patient's blood pressure, pulse, and oxygen saturations were monitored continuously. The gastroscope was introduced through the mouth, and advanced to the second part of duodenum. The upper GI endoscopy was accomplished without difficulty. The patient tolerated the procedure well. Scope In: 4:28:55 PM Scope Out: 4:46:49 PM Total Procedure Duration Time 0 hours 17 minutes 54 seconds Findings: The examined esophagus was normal. Evidence of a Shayy-en-Y gastrojejunostomy was found. The gastrojejunal anastomosis was characterized by a hemorrhagic appearance and ulceration. This was traversed. The ehfxe-lg-aoxcjvn limb was characterized by friable mucosa, a hemorrhagic appearance and ulceration. The jejunojejunal anastomosis was characterized by healthy appearing mucosa. The arohrygd-xr-rfaclyu limb was not examined as it could not be found. Coagulation for hemostasis using argon plasma at 0.3 liters/minute and 20 ochoa was successful. Hemo spray was used in order to temporarily stop bleeding The examined jejunum was normal. Impression: - Normal esophagus. - Shayy-en-Y gastrojejunostomy with gastrojejunal anastomosis characterized by a hemorrhagic appearance and ulceration. Treated with argon plasma coagulation (APC). - Normal examined jejunum. - No specimens collected. Recommendation: - Discharge patient to home. - Resume previous diet. - Continue present medications. Procedure Code(s): --- Professional --- 43717, Esophagogastroduodenoscopy, flexible, transoral; with control of bleeding, any method CPT copyright 2017 [employer]. All rights reserved. The codes documented in this report are preliminary and upon radar scientist review may be revised to meet current compliance requirements. Ramez Villatoro DO 10/31/2022 4:49:55 PM This report has been signed electronically. Number of Addenda: 0 Note Initiated On: 10/31/2022 4:27 PM
--- NOTE | 2022-10-31 16:51 | OP.CCLET_ITS ---
10/31/2022 Hermelinda Castillo MD [address] [place] [address] [place] [address] Re : Upper GI endoscopy procedure for Catherine Jaramillo Dear Dr. Castillo This procedure was performed on October. My impressions and recommendations are as follows: Impressions : - Normal esophagus. - Shayy-en-Y gastrojejunostomy with gastrojejunal anastomosis characterized by a hemorrhagic appearance and ulceration. Treated with argon plasma coagulation (APC). - Normal examined jejunum. - No specimens collected. Recommendations : - Discharge patient to home. - Resume previous diet. - Continue present medications. My findings are described in the full procedure note, which is enclosed. If I can be of further assistance, please feel free to contact me at . Sincerely, Ramez Villatoro, 10/31/2022 4:49:55 PM This report has been signed electronically.
[2022-10-31] MEDS: Sucralfate 1 GM Tablet PO (20:04)
[2022-10-31] MEDS: miSOPROStol 200 MCG Tablet PO (20:04)
[2022-11-01] MEDS: miSOPROStol 200 MCG Tablet PO ×3 (00:20→12:21)
[2022-11-01 01:00] VITALS: BP 120/78; PULSE 75; RESP 16; TEMP 36.6; O2SAT 99
[2022-11-01] MEDS: 0.9% Normal Saline 1,000 ML 100 ML IV ×2 (02:39→09:54)
[2022-11-01 02:43] VITALS: BP 105/84
[2022-11-01 06:00] VITALS: BP 128/82; PULSE 82; RESP 17; TEMP 36.7; O2SAT 98
[2022-11-01 06:28] LABS: Absolute Lymphocyte Count 2.12 X10^3/uL (0.83-4.51); Absolute Neutrophil Count 5.3 X10^3/uL (2.0-7.7); Basophil# 0.08 X10^3/uL; Eosinophil# 0.13 X10^3/uL; Eosinophils% 1.6 % (0-5); Hematocrit 23.5 % (37-47); Hemoglobin 7.8 g/dL (12.0-15.0); Lymphocyte # 2.12 X10^3/ul (0.83-4.51); Mean Corp Hgb Conc 33.2 g/dL (32-36); Mean Corpuscular Hgb 30.7 pg (27.0-32.0); Mean Corpuscular Volume 92.5 fL (81-99); Monocyte# 0.49 X10^3/uL; NRBC Flagged by Analyzer 0 % (0-5); Neutrophil # 5.26 X10^3/uL (2.7-7.7); Neutrophil % 64.7 % (47-70); Platelet Count 255 K/mm3 (150-450); RBC Distribution Width CV 12.7 % (11.6-14.6); RBC Distribution Width SD 42.1 fl (35.1-43.9); Red Blood Count 2.54 M/mm3 (4.2-5.4); White Blood Count 8.1 K/mm3 (4.4-11.0)
[2022-11-01 07:11] LABS: Anion Gap 8 (5-15); BUN 7 mg/dL (7-18); BUN/Creat Ratio 13.3 RATIO (10-20); Calcium,Total 7.9 mg/dL (8.5-10.1); Chloride 110 mmol/L (98-107); Creatinine, Serum 0.53 mg/dL (0.55-1.02); EST Glomerular Filtration Rate 134 mL/min (>60); Est Glom Filt Rate - Afr Amer 162 mL/min (>60); Estimated Creatinine Clearance 116.97 ml/min; Glucose 83 mg/dL (74-106); Magnesium 1.8 mg/dL (1.6-2.6); Phosphorus 3.5 mg/dL (2.5-4.9); Sodium Level 142 mmol/L (136-145)
[2022-11-01] MEDS: Sucralfate 1 GM Tablet PO ×2 (07:46→11:07)
--- NOTE | 2022-11-01 08:03 | PN.HOSP_ITS ---
Reason for Visit Reason for Visit: Diagnoses Anemia, unspecified (10/29/22) Hemorrhage of anus and rectum (10/29/22) Hematemesis (10/29/22) Subjective Subjective Patient underwent repeat EGD on 10/31/2022 given her continued drop in her hemoglobin levels. Findings included normal esophagus. Shayy-en-Y gastrojejunostomy with gastrojejunal anastomosis characterized by a hemorrhagic appearance and ulceration. Treated with argon plasma coagulation (APC). Normal examined jejunum. Objective Data Objective Data Vital Signs: Vital Signs Temp Pulse Resp BP Pulse Ox O2 Del Method 98.0 F 82 17 128/82 H 98 Room Air 11/01/22 06:00 11/01/22 06:00 11/01/22 06:00 11/01/22 06:00 11/01/22 06:00 11/01/22 07:57 Oxygen Delivery Method Room Air Weight: 92.6 kg Body Mass Index (BMI) 35.0 Intake & Output: Intake and Output for Last 24 Hours 10/30/22 10/31/22 11/01/22 23:59 23:59 23:59 Intake Total 2098.00 / 2098.00 2200 / 2200 1100 / 1100 Balance 2098.00 / 2098.00 2200 / 2200 1100 / 1100 Lab / Micro Data 11/01/22 05:21 11/01/22 05:21 Labs: Laboratory Results - last 24 hr 10/31/22 06:42: Hemoglobin A1c 5.2 11/01/22 05:21: WBC 8.1, RBC 2.54 L, Hgb 7.8 L, Hct 23.5 L, MCV 92.5, MCH 30.7, MCHC 33.2, RDW Std Deviation 42.1, RDW Coeff of Cristin 12.7, Plt Count 255, MPV 11.0, Immature Gran % (Auto) 0.700, Neut % (Auto) 64.7, Lymph % (Auto) 26.0, [place] % (Auto) 6.0, Eos % (Auto) 1.6, Baso % (Auto) 1.0, Absolute Neuts (auto) 5.3, Absolute Lymphs (auto) 2.12, Nucleated RBC % 0, Sodium 142, Potassium 3.0 L , Chloride 110 H, Carbon Dioxide 24.0, Anion Gap 8, BUN 7, Creatinine 0.53 L, Estim Creat Clear Calc 116.97, Est GFR (MDRD) Af Amer 162, Est GFR (MDRD) Non-Af 134, BUN/Creatinine Ratio 13.3, Glucose 83, Calcium 7.9 L, Phosphorus 3.5, Magnesium 1.8 Physical Exam Narrative GENERAL: cooperative HEENT: Atraumatic; normocephalic EYES; Anicteric, Normal Conjunctiva NECK; supple, normal thyroid, RESPIRATORY: Diminished to auscultation CARDIOVASCULAR: Regular S1 S2, GI: soft, normoactive bowel sounds, : No Renal angle tenderness; EXTREMITIES: No edema, no clubbing, MUSCULOSKELETAL: no muscle wasting NEURO: Awake; no lateralizing signs. SKIN: No Rash PSYCH; Flat affect Assessment & Plan Assessment/Plan (1) Bright red blood per rectum: PLAN: Plan Patient is a 46-year-old lady who presented with hematochezia and hematemesis 1. Acute GI bleed ? Patient underwent upper GI endoscopy by Dr. Villatoro on 10/29/2022 findings included - Normal esophagus. - Shayy-en-Y gastrojejunostomy with gastrojejunal anastomosis characterized by ulceration. Injected. 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 Treated with a heater probe. - Red blood in the gastric body. Patient on PPI ? 10/31/2022; hemoglobin did drop to 7.6 plan is for patient to undergo repeat EGD ?11/01/2021;Patient underwent repeat EGD on 10/31/2022 given her continued drop in her hemoglobin levels. Findings included normal esophagus. Shayy-en-Y gastrojejunostomy with gastrojejunal anastomosis characterized by a hemorrhagic appearance and ulceration. Treated with argon plasma coagulation (APC). Normal examined jejunum. 2. Anemia ? Secondary to acute blood loss anemia from patient angiodysplastic lesion in the jejunum as well as ulceration from her Shayy-en-Y gastrojejunostomy site. Patient has been typed and screened yet to be transfused. Plan is to transfuse if hemoglobin falls below 7 or patient is deemed to be symptomatic 3. Acute migrainous headache ? Patient treated with Phenergan for symptomatic relief 4. Class I obesity with BMI of 35 With previous Shayy-en-Y gastrojejunostomy 5. Essential hypertension ? On amlodipine held on admission plan is to resume prior to discharge 6. Hyperglycemia ? Ordered hemoglobin A1c to rule out diabetes. Hemoglobin A1c was 5.8 not consistent with diabetes mellitus type 2 7. DVT prophylaxis ? Low risk moreover contraindicated given patient GI bleed 8. Hypokalemia -Corrected per protocol Time spent in the patient's overall evaluation,decision-making process, review of diagnostic data, adjustment of management, discussion with other providers, nursing nursing and ancillary staff involved in patient's care documentation, 35 Minutes Charges/Coding Visit Charges Inpatient E&M: 61848 Subs Hosp L2
[2022-11-01] MEDS: Potassium Chloride 10mEq/100mL 10 MEQ/100 ML IV.SOLN. 100 MEQ IV BOLUS ×4 (08:46→12:20)
--- NOTE | 2022-11-01 09:59 | DS.PCM_ITS ---
Providers Date of Admission: 10/29/22 Date of Discharge: 11/01/22 Primary Care Physician: Dr. Hermelinda Castillo MD Consultations 10/29/22 12:42 Consult: Gastroenterology Routine Consulting Provider: [facility] Reason for Consult: GI bleed EMERGENT Consult: No MD Notified: Yes Date Notified: 10/29/22 Time Notified: 12:03 Method of Notification: Verbal Reason For Visit: GI BLEED Diagnosis Discharge Diagnosis (1) Bright red blood per rectum: Status: Acute Code(s): K62.5 - Hemorrhage of anus and rectum Plan Patient is a 46-year-old lady who presented with hematochezia and hematemesis 1. Acute GI bleed ? Patient underwent upper GI endoscopy by Dr. Villatoro on 10/29/2022 findings included - Normal esophagus. - Shayy-en-Y gastrojejunostomy with gastrojejunal anastomosis characterized by ulceration. Injected. - Two bleeding angiodysp lastic lesions in the jejunum. Treated with a heater probe. - Red blood in the gastric body. Patient on PPI ? 10/31/2022; hemoglobin did drop to 7.6 plan is for patient to undergo repeat EGD ?11/01/2021;Patient underwent repeat EGD on 10/31/2022 given her continued drop in her hemoglobin levels. Findings included normal esophagus. Shayy-en-Y gastrojejunostomy with gastrojejunal anastomosis characterized by a hemorrhagic appearance and ulceration. Treated with argon plasma coagulation (APC). Normal examined jejunum. 2. Anemia ? Secondary to acute blood loss anemia from patient angiodysplastic lesion in the jejunum as well as ulceration from her Shayy-en-Y gastrojejunostomy site. Patient has been typed and screened yet to be transfused. Plan is to transfuse if hemoglobin falls below 7 or patient is deemed to be symptomatic 3. Acute migrainous headache ? Patient treated with Phenergan for symptomatic relief 4. Class I obesity with BMI of 35 With previous Shayy-en-Y gastrojejunostomy 5. Essential hypertension ? On amlodipine held on admission plan is to resume prior to discharge 6. Hyperglycemia ? Ordered hemoglobin A1c to rule out diabetes. Hemoglobin A1c was 5.8 not consistent with diabetes mellitus type 2 7. DVT prophylaxis ? Low risk moreover contraindicated given patient GI bleed 8. Hypokalemia -Corrected per protocol Time spent in the patient's overall evaluation,decision-making process, review of diagnostic data, adjustment of management, discussion with other providers, nursing nursing and ancillary staff involved in patient's care documentation, 35 Minutes Medications at Discharge Home Medications calcium carbonate 600 mg calcium (1,500 mg) tablet (Calcium) 600 mg PO DAILY 09/25/20 cholecalciferol (vitamin D3) 10 mcg (400 unit) capsule 10 mcg PO DAILY 09/25/20 cyanocobalamin (vitamin B-12) 50 mcg tablet (Vitamin B-12) 50 mcg PO DAILY 09/25/20 loratadine 10 mg capsule 10 mg PO DAILY 09/25/20 magnesium 200 mg tablet 200 mg PO DAILY 09/25/20 multivitamin 1 tab PO DAILY 09/25/20 ascorbic acid (vitamin C) 1,000 mg tablet 1 g PO DAILY 12/15/20 ferrous sulfate 325 mg (65 mg iron) tablet 325 mg PO TID 12/15/20 potassium 99 mg PO DAILY 12/15/20 sumatriptan succinate 50 mg tablet (Imitrex) See Rx Instructions PO .COMPLEX #14 tabs 07/24/21 cyclobenzaprine 10 mg tablet See Rx Instructions .Route .COMPLEX #60 tabs 08/26/22 linaclotide 290 mcg capsule (Linzess) 290 mcg PO DAILY PRN PRN Diarrhea #90 caps 09/05/22 amlodipine 5 mg tablet See Rx Instructions .Route .COMPLEX #90 tabs 10/25/22 pantoprazole 40 mg tablet,delayed release (Protonix) 40 mg PO BID 60 days #120 tabs 11/01/22 sucralfate 1 gram tablet 1 g PO TIDAC 30 days #90 tabs 11/01/22 Physical Exam Narrative GENERAL: cooperative HEENT: Atraumatic; normocephalic EYES; Anicteric, Normal Conjunctiva NECK; supple, normal thyroid, RESPIRATORY: Diminished to auscultation CARDIOVASCULAR: Regular S1 S2, GI: soft, normoactive bowel sounds, : No Renal angle tenderness; EXTREMITIES: No edema, no clubbing, MUSCULOSKELETAL: no muscle wasting NEURO: Awake; no lateralizing signs. SKIN: No Rash PSYCH; Flat affect Weight / BMI Weight Weight: 92.6 kg Body Mass Index (BMI) 35.0 ABG / Lab / Microbiology Data 11/01/22 05:21 11/01/22 05:21 Laboratory: Laboratory Results - last 24 hr 10/31/22 06:42: Hemoglobin A1c 5.2 11/01/22 05:21: WBC 8.1, RBC 2.54 L, Hgb 7.8 L, Hct 23.5 L, MCV 92.5, MCH 30.7, MCHC 33.2, RDW Std Deviation 42.1, RDW Coeff of Cristin 12.7, Plt Count 255, MPV 11.0, Immature Gran % (Auto) 0.700, Neut % (Auto) 64.7, Lymph % (Auto) 26.0, [place] % (Auto) 6.0, Eos % (Auto) 1.6, Baso % (Auto) 1.0, Absolute Neuts (auto) 5.3, Absolute Lymphs (auto) 2.12, Nucleated RBC % 0, Sodium 142, Potassium 3.0 L , Chloride 110 H, Carbon Dioxide 24.0, Anion Gap 8, BUN 7, Creatinine 0.53 L, Estim Creat Clear Calc 116.97, Est GFR (MDRD) Af Amer 162, Est GFR (MDRD) Non-Af 134, BUN/Creatinine Ratio 13.3, Glucose 83, Calcium 7.9 L, Phosphorus 3.5, Magnesium 1.8 D/C Instructions Discharge Diet: No restrictions Discharge Activity: Return to Normal Activity Call your doctor if you observe: Fever of 101 or Higher, Shortness of breath, F ainting spells and Chest pain Meaningful Use Info Meaningful Use Diagnoses (Choose all that apply): None applicable Discharge Plan Admission Admit Date/Time: 10/29/22 11:56 Attending Provider: Ganesh Bell Primary Care Provider: Hermelinda Castillo Consulting Providers: Giancarlo Boyle Discharge Orders/Prescriptions Prescriptions: New sucralfate 1 gram Tablet 1 g PO TIDAC 30 Days Qty: 90 0RF pantoprazole [Protonix] 40 mg tablet,delayed release (DR/EC) 40 mg PO BID 60 Days Qty: 120 0RF Continued Vitamin B-12 50 mcg tablet 50 mcg PO DAILY calcium carbonate [Calcium 600] 600 mg calcium (1,500 mg) tablet 600 mg PO DAILY cholecalciferol (vitamin D3) 10 mcg (400 unit) capsule 10 mcg PO DAILY multivitamin Tablet 1 tab PO DAILY magnesium 200 mg tablet 200 mg PO DAILY loratadine 10 mg capsule 10 mg PO DAILY ascorbic acid (vitamin C) 1,000 mg tablet 1 g PO DAILY ferrous sulfate 325 mg (65 mg iron) tablet 325 mg PO TID potassium 99 mg PO DAILY sumatriptan succinate [Imitrex] 50 mg tablet See Rx Instructions PO .COMPLEX Qty: 14 2RF Rx Instructions: take 1 tab at onset of headache; if no relief may repeat 1 tab after at least 2 hrs; max = 4 tabs/24 hr PO cyclobenzaprine 10 mg tablet See Rx Instructions .ROUTE .COMPLEX Qty: 60 2RF Dose Instruction: TAKE 1 TABLET BY MOUTH 3 TIMES A DAY NEEDED FOR MUSCLE SPASMS Rx Instructions: TAKE 1 TABLET BY MOUTH 3 TIMES A DAY NEEDED FOR MUSCLE SPASMS Linzess 290 mcg capsule 290 mcg PO DAILY PRN PRN (Reason: Diarrhea) Qty: 90 1RF amlodipine 5 mg tablet See Rx Instructions .ROUTE .COMPLEX Qty: 90 0RF Dose Instruction: TAKE 1 TABLET BY MOUTH ONCE DAILY Rx Instructions: TAKE 1 TABLET BY MOUTH ONCE DAILY Discontinued sucralfate [Carafate] 100 mg/mL suspension 10 ml PO BID Qty: 200 1RF Referrals / Follow Up: Hermelinda Castillo MD [Primary Care Provider] - Within 2 Weeks Ramez Villatoro DO [Med Staff - Active Staff] - Within 2 Weeks Disposition Disposition (needs filled in before D/C Order can be placed): Home, Self Care Charges/Coding Visit Charges Inpatient E&M: 91223 Disch Hosp >30min
[2022-11-01] MEDS: 0.9% Saline Lock 10 ML Syringe IV (11:05)
--- NOTE | 2022-11-01 11:16 | PHA.DC_ITS ---
Pharmacy [facility] Service has performed discharge medication reconciliation and counseling for this patient. The patient was counseled on the following discharge medications and changes in medications for homegoing were reviewed. 1. PROTONIX 2. CARAFATE - BID TO TID DOSING The Reason for Use, instructions for use, and potential side effects were reviewed for all new medications. The patient's questions regarding all of their medications were answered. The patient was able to verbally demonstrate an understanding of their discharge medications. The patient's discharge medication list was reviewed for discrepancies and discrepancies were resolved. patient counselled by Neftali Clarke, YancyD Candidate Medications at Discharge Home Medications calcium carbonate 600 mg calcium (1,500 mg) tablet (Calcium) 600 mg PO DAILY 09/25/20 cholecalciferol (vitamin D3) 10 mcg (400 unit) capsule 10 mcg PO DAILY 09/25/20 cyanocobalamin (vitamin B-12) 50 mcg tablet (Vitamin B-12) 50 mcg PO DAILY 09/25/20 loratadine 10 mg capsule 10 mg PO DAILY 09/25/20 magnesium 200 mg tablet 200 mg PO DAILY 09/25/20 multivitamin 1 tab PO DAILY 09/25/20 ascorbic acid (vitamin C) 1,000 mg tablet 1 g PO DAILY 12/15/20 ferrous sulfate 325 mg (65 mg iron) tablet 325 mg PO TID 12/15/20 potassium 99 mg PO DAILY 12/15/20 sumatriptan succinate 50 mg tablet (Imitrex) See Rx Instructions PO .COMPLEX #14 tabs 07/24/21 cyclobenzaprine 10 mg tablet See Rx Instructions .Route .COMPLEX #60 tabs 08/26/22 linaclotide 290 mcg capsule (Linzess) 290 mcg PO DAILY PRN PRN Diarrhea #90 caps 09/05/22 amlodipine 5 mg tablet See Rx Instructions .Route .COMPLEX #90 tabs 10/25/22 pantoprazole 40 mg tablet,delayed release (Protonix) 40 mg PO BID 60 days #120 tabs 11/01/22 sucralfate 1 gram tablet 1 g PO TIDAC 30 days #90 tabs 11/01/22
[2022-11-01 11:42] VITALS: BP 127/83; PULSE 74; RESP 16; TEMP 36.3; O2SAT 97
--- NOTE | 2022-11-01 15:25 | PN.GI_ITS ---
Subjective Subjective Patient underwent repeat endoscopy yesterday for recurrent GI bleeding. She was discovered to have bleeding at the site of anastomosis where her 2 previous clips were placed to stop bleeding from gastric ulcer. Objective Data Objective Data Vital Signs: Vital Signs Temp Pulse Resp BP Pulse Ox O2 Del Method 97.4 F L 74 16 127/83 H 97 Room Air 11/01/22 11:42 11/01/22 11:42 11/01/22 11:42 11/01/22 11:42 11/01/22 11:42 11/01/22 11:42 Oxygen Delivery Method Room Air Weight: 204 lb 2.369 oz Body Mass Index (BMI) 35.0 Intake & Output: Intake and Output for Last 24 Hours 10/30/22 10/31/22 11/01/22 23:59 23:59 23:59 Intake Total 2098.00 / 2098.00 2200 / 2200 3282.67 / 3282.67 Balance 2098.00 / 2098.00 2200 / 2200 3282.67 / 3282.67 Lab / Micro Data 11/01/22 05:21 11/01/22 05:21 Labs: Laboratory Results - last 24 hr 11/01/22 05:21: WBC 8.1, RBC 2.54 L, Hgb 7.8 L, Hct 23.5 L, MCV 92.5, MCH 30.7, MCHC 33.2, RDW Std Deviation 42.1, RDW Coeff of Cristin 12.7, Plt Count 255, MPV 11. 0, Immature Gran % (Auto) 0.700, Neut % (Auto) 64.7, Lymph % (Auto) 26.0, [place] % (Auto) 6.0, Eos % (Auto) 1.6, Baso % (Auto) 1.0, Absolute Neuts (auto) 5.3, Absolute Lymphs (auto) 2.12, Nucleated RBC % 0, Sodium 142, Potassium 3.0 L, Chloride 110 H, Carbon Dioxide 24.0, Anion Gap 8, BUN 7, Creatinine 0.53 L, Estim Creat Clear Calc 116.97, Est GFR (MDRD) Af Amer 162, Est GFR (MDRD) Non-Af 134, BUN/Creatinine Ratio 13.3, Glucose 83, Calcium 7.9 L, Phosphorus 3.5, Magnesium 1.8 Physical Exam Narrative GENERAL: cooperative HEENT: Atraumatic; normocephalic EYES; Anicteric, Normal Conjunctiva NECK; supple, normal thyroid, RESPIRATORY: Diminished to auscultation CARDIOVASCULAR: Regular S1 S2, GI: soft, normoactive bowel sounds, : No Renal angle tenderness; EXTREMITIES: No edema, no clubbing, MUSCULOSKELETAL: no muscle wasting NEURO: Awake; no lateralizing signs. SKIN: No Rash PSYCH; Flat affect Assessment & Plan Assessment/Plan (1) Bright red blood per rectum: PLAN: Plan Patient is a 46-year-old lady who presented with hematochezia and hematemesis Acute GI bleed ? Patient underwent upper GI endoscopy by Dr. Villatoro on 10/29/2022 findings included - Normal esophagus. - Shayy-en-Y gastrojejunostomy with gastrojejunal anastomosis characterized by ulceration. Injected. 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 Treated with a heater probe. - Red blood in the gastric body. Patient on PPI ? 10/31/2022; hemoglobin did drop to 7.6 plan is for patient to undergo repeat EGD ?11/01/2021;Patient underwent repeat EGD on 10/31/2022 given her continued drop in her hemoglobin levels. Findings included normal esophagus. Shayy-en-Y gastrojejunostomy with gastrojejunal anastomosis characterized by a hemorrhagic appearance and ulceration. Treated with argon plasma coagulation (APC). Normal examined jejunum. Anemia ? Secondary to acute blood loss anemia from patient angiodysplastic lesion in the jejunum as well as ulceration from her Shayy-en-Y gastrojejunostomy site. Patient has been typed and screened yet to be transfused. Plan is to transfuse if hemoglobin falls below 7 or patient is deemed to be symptomatic Charges/Coding Visit Charges Inpatient E&M: 83193 [facility] Hosp L3
== END 2022-11-01 13:45 | disposition home or self-care (01) | DRG 378 ==
LOC: ED 05:38 → PCU 12:32
PROVIDERS: Internal Medicine Gastroenterology; Admitting Provider Internal Medicine; Emergency Provider Emergency Medicine; PCP Internal Medicine; Visit Provider Internal Medicine
PROC: 0DJ08ZZ Inspection of Upper Intestinal Tract, Via Natural or Artificial Opening Endoscopic (ICD-10-PCS; CPT 43235; principal; 2022-10-29 16:25)
DX: K28.4 Chronic or unspecified gastrojejunal ulcer with hemorrhage (principal); D62 Acute posthemorrhagic anemia; E66.9 Obesity, unspecified; E87.6 Hypokalemia; S01.511A Laceration without foreign body of lip, initial encounter; I10 Essential (primary) hypertension; W01.10XA Fall on same level from slipping, tripping and stumbling with subsequent striking against unspecified object, initial encounter; G43.909 Migraine, unspecified, not intractable, without status migrainosus; K31.811 Angiodysplasia of stomach and duodenum with bleeding; R55 Syncope and collapse; R73.9 Hyperglycemia, unspecified; Z68.35 Body mass index [BMI] 35.0-35.9, adult; Z79.899 Other long term (current) drug therapy; Z87.11 Personal history of peptic ulcer disease; Z98.84 Bariatric surgery status
CPT/HCPCS: 36415; 74177; 80048; 80053; 83036; 83605; 83690; 83735; 84100; 85014; 85018; 85025; 85610; 85730; 93005; 99284; J7030; J7050; Q9967; A4216; J2405; J2916; J3490

== ENCOUNTER → 2022-11-12 | Outpatient (CLI) | payer OTHER, MEDICAID, SELFPAY ==
[2022-11-12 13:57] LABS: Hemoglobin 10.6 g/dL (12.0-15.0)
== END | disposition home or self-care (01) ==
LOC: PAVLAB 13:32
PROVIDERS: PCP Internal Medicine; Visit Provider Internal Medicine Gastroenterology
DX: K92.0 Hematemesis (principal)
CPT/HCPCS: 36415; 85018

== ENCOUNTER → 2022-11-18 | Outpatient (CLI) | payer OTHER, MEDICAID, SELFPAY ==
[2022-11-18 12:27] LABS: Absolute Lymphocyte Count 1.63 X10^3/uL (0.83-4.51); Absolute Neutrophil Count 4.9 X10^3/uL (2.0-7.7); Basophil# 0.08 X10^3/uL; Basophil% 1.1 % (0-1); Eosinophil# 0.08 X10^3/uL; Eosinophils% 1.1 % (0-5); Hematocrit 36.4 % (37-47); Hemoglobin 11.3 g/dL (12.0-15.0); Lymphocyte # 1.63 X10^3/ul (0.83-4.51); Lymphocyte % 22.8 % (19-41); Mean Corpuscular Hgb 30.9 pg (27.0-32.0); Mean Corpuscular Volume 99.5 fL (81-99); Mean Platelet Vol. 10.2 fl (6.2-12.0); Monocyte# 0.48 X10^3/uL; Monocyte% 6.7 % (0-10); NRBC Flagged by Analyzer 0 % (0-5); Neutrophil # 4.85 X10^3/uL (2.7-7.7); Neutrophil % 67.9 % (47-70); Platelet Count 328 K/mm3 (150-450); RBC Distribution Width CV 14.3 % (11.6-14.6); RBC Distribution Width SD 51.3 fl (35.1-43.9); Red Blood Count 3.66 M/mm3 (4.2-5.4); White Blood Count 7.2 K/mm3 (4.4-11.0)
[2022-11-18 13:12] LABS: Anion Gap 4 (5-15); BUN 7 mg/dL (7-18); BUN/Creat Ratio 11.9 RATIO (10-20); Calcium,Total 8.5 mg/dL (8.5-10.1); Chloride 109 mmol/L (98-107); Creatinine, Serum 0.59 mg/dL (0.55-1.02); EST Glomerular Filtration Rate 118 mL/min (>60); Est Glom Filt Rate - Afr Amer 142 mL/min (>60); Ferritin 143 ng/mL (8-252); Glucose 85 mg/dL (74-106); Iron 40 ug/dL (50-170); Iron Binding Capacity,Total 282 ug/dL (250-450); Potassium 4.3 mmol/L (3.5-5.1); Sodium Level 140 mmol/L (136-145)
== END | disposition home or self-care (01) ==
LOC: BIMLAB 09:10
PROVIDERS: PCP Internal Medicine; Referring Provider Internal Medicine; Visit Provider Internal Medicine
DX: D64.9 Anemia, unspecified (principal); I10 Essential (primary) hypertension
CPT/HCPCS: 36415; 80048; 82728; 83540; 83550; 85025

== ENCOUNTER → 2022-12-25 | Outpatient (CLI) | payer OTHER, MEDICAID, SELFPAY ==
--- NOTE | 2022-12-25 16:57 | RAD_ITS ---
EXAM: XR THORACIC SPINE, 3 VIEWS CLINICAL INDICATION: PAIN TECHNIQUE: Frontal, lateral and swimmer''s views of the thoracic spine. COMPARISON: No relevant prior studies available. FINDINGS: VERTEBRAE: Exaggeration of the normal thoracic kyphosis. Preserved vertebral body height. No fracture. No spondylolisthesis. No significant facet arthropathy. DISC SPACES: Unremarkable. Disc spaces are maintained. RAD/Thoracic Spine 3 Views IMPRESSION: Exaggeration of the normal thoracic kyphosis. No acute thoracic spine abnormality. Electronically Signed: Jose Pascual MD at 0:23 EDT ,
== END | disposition home or self-care (01) ==
PROVIDERS: PCP Internal Medicine
DX: M54.6 Pain in thoracic spine (principal)
CPT/HCPCS: 72072

== ENCOUNTER → 2023-02-27 | Outpatient (CLI) | payer OTHER, MEDICAID, SELFPAY ==
[2023-02-27 12:03] LABS: Absolute Lymphocyte Count 2.86 X10^3/uL (0.83-4.51); Absolute Neutrophil Count 5.6 X10^3/uL (2.0-7.7); Basophil# 0.15 X10^3/uL; Basophil% 1.6 % (0-1); Eosinophil# 0.11 X10^3/uL; Eosinophils% 1.2 % (0-5); Hematocrit 42.6 % (37-47); Lymphocyte # 2.86 X10^3/ul (0.83-4.51); Lymphocyte % 30.8 % (19-41); Mean Corp Hgb Conc 32.9 g/dL (32-36); Mean Corpuscular Volume 88.2 fL (81-99); Mean Platelet Vol. 10.5 fl (6.2-12.0); Monocyte# 0.59 X10^3/uL; Monocyte% 6.3 % (0-10); NRBC Flagged by Analyzer 0 % (0-5); Neutrophil # 5.56 X10^3/uL (2.7-7.7); Neutrophil % 59.8 % (47-70); Platelet Count 351 K/mm3 (150-450); RBC Distribution Width CV 13.5 % (11.6-14.6); RBC Distribution Width SD 43.4 fl (35.1-43.9); RET-HE 32.7 pg (30-35); Red Blood Count 4.83 M/mm3 (4.2-5.4); Reticulocyte Count 1.87 % (0.5-1.5); White Blood Count 9.3 K/mm3 (4.4-11.0)
[2023-02-27 12:41] LABS: Ferritin 144 ng/mL (8-252); Iron 53 ug/dL (50-170); Iron Binding Capacity,Total 297 ug/dL (250-450); LDH 194 U/L (84-246)
[2023-02-28 15:08] LABS: Alpha-1-Globulins 0.2 g/dL (0.0-0.4); Alpha-2-Globulins 0.6 g/dL (0.4-1.0); Endomysial Antibody IgA Negative (Negative); Gamma Globulin 1.1 g/dL (0.4-1.8); Haptoglobin 69 mg/dL (42-296); Immunoglobulin A 213 mg/dL (87-352); Immunoglobulin G 1055 mg/dL (586-1602); Immunoglobulin M 109 mg/dL (26-217); PROEL- TOTAL PROTEIN 6.9 g/dL (6.0-8.5); t-Transglutaminase IgA <2 U/mL (0-3)
== END | disposition home or self-care (01) ==
LOC: LAB 11:12
PROVIDERS: PCP Internal Medicine; Referring Provider Internal Medicine Gastroenterology; Visit Provider Internal Medicine Gastroenterology
DX: D64.9 Anemia, unspecified (principal)
CPT/HCPCS: 36415; 82728; 82784; 83010; 83516; 83540; 83550; 83615; 84165; 85025; 85045; 86255; 86334

== ENCOUNTER → 2023-03-07 | Outpatient (CLI) | payer OTHER, MEDICAID, SELFPAY ==
[2023-03-07 12:16] LABS: Bacteria 0 SEEN /hpf (None Seen); Mucous, Urine 0 SEEN /hpf (<or=2+); Red Blood Cells-Urine 0 SEEN /hpf (0-5); White Blood Cells 0 SEEN /hpf (0-5)
--- NOTE | 2023-03-07 13:32 | US_ITS ---
STUDY: THYROID ULTRASOUND REASON FOR EXAM: Female, 47 years old. recheck nodules TECHNIQUE: Ultrasound evaluation of the thyroid was performed with real-time and static baxter-scale imaging. COMPARISON: 10/01/2021 FINDINGS: RIGHT LOBE: The right lobe of the thyroid gland measures 5.2 x 2.7 x 2.4 cm. There is a homogeneous echotexture. Nodule 1: No change in a 19 x 10 x 18 mm mixed cystic and solid isoechoic wider than tall ill-defined margin nodule with no echogenic foci (TR 2) in the anterior right lobe. Nodule 2: Enlarging (19 x 10 x 15 mm from 9 x 7 x 6 mm) mixed cystic and solid isoechoic wider than tall ill-defined margin nodule with no echogenic foci (TR 2) in the medial right lobe LEFT LOBE: Status post left lobectomy. ISTHMUS: The isthmus measures 4 mm thick. . The regional lymph nodes are normal. US/Thyroid IMPRESSION: Enlarging mostly cystic nodule in the right lobe. Electronically Signed: Mitesh Quintana MD at 19:52 EST ,
[2023-03-07 13:41] LABS: Color, Urine Straw (Yellow); Glucose, Dipstick Normal (Normal); Ketone-Dipstick Negative (Negative); Leukocyte Esterase-Dipstick Negative /ul (Negative); Nitrite-Dipstick Negative (Negative); Occult Blood-Urine 10 /ul (Negative); Protein-Dipstick Negative (Negative); Specific Gravity, Urine 1.005 (1.002-1.030); Urine Bilirubin Dipstick Negative (Negative); Urine Clarity Clear (Clear); Urine Urobilinogen Normal (Normal)
[2023-03-07 13:45] LABS: Absolute Lymphocyte Count 2.78 X10^3/uL (0.83-4.51); Absolute Neutrophil Count 4.4 X10^3/uL (2.0-7.7); Basophil# 0.12 X10^3/uL; Basophil% 1.5 % (0-1); Eosinophil# 0.17 X10^3/uL; Eosinophils% 2.1 % (0-5); Hematocrit 44.5 % (37-47); Hemoglobin 14.6 g/dL (12.0-15.0); Lymphocyte # 2.78 X10^3/ul (0.83-4.51); Lymphocyte % 34.6 % (19-41); Mean Corp Hgb Conc 32.8 g/dL (32-36); Mean Corpuscular Hgb 29.7 pg (27.0-32.0); Mean Corpuscular Volume 90.4 fL (81-99); Mean Platelet Vol. 10.6 fl (6.2-12.0); Monocyte# 0.53 X10^3/uL; Monocyte% 6.6 % (0-10); NRBC Flagged by Analyzer 0 % (0-5); Neutrophil # 4.42 X10^3/uL (2.7-7.7); Platelet Count 314 K/mm3 (150-450); RBC Distribution Width CV 13.6 % (11.6-14.6); RBC Distribution Width SD 44.9 fl (35.1-43.9); Red Blood Count 4.92 M/mm3 (4.2-5.4)
[2023-03-07 13:47] LABS: Squamous Epithelial Cells - UA 0-5 SEEN /hpf (5-10)
[2023-03-07 14:18] LABS: Anion Gap 6 (5-15); BUN 8 mg/dL (7-18); BUN/Creat Ratio 15.2 RATIO (10-20); Chloride 101 mmol/L (98-107); Creatinine, Serum 0.53 mg/dL (0.55-1.02); EST Glomerular Filtration Rate 133 mL/min (>60); Est Glom Filt Rate - Afr Amer 161 mL/min (>60); Glucose 102 mg/dL (74-106); Magnesium 2.1 mg/dL (1.6-2.6); Potassium 3.6 mmol/L (3.5-5.1); Sodium Level 136 mmol/L (136-145); Thyroid Stim Hormone (TSH) 0.86 uIU/mL (0.358-3.74)
== END | disposition home or self-care (01) ==
PROVIDERS: PCP Nurse Practitioner Family; Referring Provider Surgery; Visit Provider Surgery
DX: R10.9 Unspecified abdominal pain (principal); E04.1 Nontoxic single thyroid nodule
CPT/HCPCS: 36415; 76536; 80048; 81001; 83735; 84443; 85025; 87086; 87088

== ENCOUNTER → 2023-03-17 | Outpatient (CLI) | payer OTHER, MEDICAID, SELFPAY ==
--- NOTE | 2023-03-17 08:10 | RAD_ITS ---
EXAM: XR ABDOMEN, 2 VIEWS CLINICAL INDICATION: HEMATURIA TECHNIQUE: Frontal view of the abdomen/pelvis with upright view of the abdomen. COMPARISON: No relevant prior studies available. FINDINGS: INTRAPERITONEAL SPACE: No free air. GASTROINTESTINAL TRACT: Mild stool burden within the large bowel. ORGANS: Cholecystectomy clips are in place. Question small stones within the upper pole of the left kidney. No organomegaly. BONES/JOINTS: No acute abnormality. SOFT TISSUES: No acute pathology. RAD/Abd Inc Decub and/or Erect IMPRESSION: Question left renal stones. Electronically Signed: Alhaji Claudio MD at 8:49 EST ,
== END | disposition home or self-care (01) ==
LOC: RAD 08:07
PROVIDERS: PCP Nurse Practitioner Family; Referring Provider Nurse Practitioner Family; Visit Provider Nurse Practitioner Family
DX: R10.9 Unspecified abdominal pain (principal); R31.9 Hematuria, unspecified
CPT/HCPCS: 74019

== ENCOUNTER → 2023-03-20 | Outpatient (CLI) | payer OTHER, MEDICAID, SELFPAY ==
--- NOTE | 2023-03-20 15:00 | FLU_PTH ---
PATIENT: ANGELA BUI LOC: [facility] U#:[id number] AGE/SX: 47/F ROOM: RE03/20/[address]: Dr. Jose Suresh MD : 1975 BED: DIS: 03/20/2023 SPEC #: [id number] RECD: 03/20/23 16:04 STATUS: RAY ALY #: [id number] JABIER: 03/20/23 15:[address]: Jose Suresh DEPT: CYTOLOGY RECD BY: Chioma Gunderson ENTERED: 03/21/23 09:18 SP TYPE[facility] Tissues: A - Thyroid gland, NOS B - Thyroid gland, NOS C - Thyroid gland, NOS D - Thyroid gland, NOS Procedures: Special Stain Group II Surgery Specimen Level IV Cytospin Fluid Cytology Other HEADER OPERATION: Fine needle aspiration right thyroid nodule x2 PRE-OP DIAGNOSIS: Right thyroid nodule x2 TISSUE SUBMITTED: A - Right superior thyroid nodule fluid, B - Right superior thyroid nodule x2 slides, C - Right medial thyroid nodule fluid, D - Right medial thyroid nodule x2 slides DIAGNOSIS CYTOLOGY A. Right superior thyroid nodule fluid, fine needle aspiration (cytospin and cell block): Nondiagnostic, [place] Category I. Cyst fluid contents only. See comment. B. Right superior thyroid nodule, fine needle aspiration (smears): Nondiagnostic, [place] Category I. Cyst fluid contents only. See comment. C. Right medial thyroid nodule fluid, fine needle aspiration (cytospin and cell block): Consistent with benign follicular/colloid nodule with cystic changes, [place] Category II. Adequate for evaluation. See comment. D. Right medial thyroid nodule, fine needle aspiration (smears): Consistent with benign follicular/colloid nodule with cystic changes, [place] Category II. Adequate for evaluation. See comment. SJ:gerber 03/24/2023 COMMENT A & B. The specimen predominantly consists of macrophages and a few benign follicular cells. The specimen is nondiagnostic due to lack of adequate number of follicular cells. D. The specimen consists of numerous macrophages, follicular cells, Hurthle cells and colloid. The [place] System for thyroid diagnostic categorization was used in the evaluation of this case. Correlation with clinical, radiologic findings and appropriate follow up are necessary. Please make reference to previous specimens ([id number]) FNA, right thyroid nodule with diagnosis of consistent with benign follicular nodule with cystic changes and ([id number]) right thyroid nodule fluid, FNA with diagnosis of suggestive of benign follicular nodule with extensive cystic changes. CYTOLOGY STUDY Slides are reviewed. CYTOLOGY GROSS A - Received is 1.5 ml of reddish-brown cloudy fluid labeled with the patient's name and and designated per the requisition as right superior thyroid nodule. Submitted for cytology preparation including cell block. B - Received are two smears labeled with the patient's name and designated per the requisition as right superior thyroid nodule. Submitted for staining. C - Received is 1.5 ml of reddish brown cloudy fluid labeled with the patient's name and and designated per the requisition as right medial thyroid nodule. Submitted for cytology preparation including cell block. D - Received are two smears labeled with the patient's name and designated per the requisition as right medial thyroid nodule. Submitted for staining. / gerber 03/21/2023 TC:5 CPT: 75843 x4, 48216 x2
== END | disposition home or self-care (01) ==
LOC: LABSPEC 16:16
PROVIDERS: Referring Provider Surgery; Visit Provider Surgery
DX: E04.1 Nontoxic single thyroid nodule (principal)
CPT/HCPCS: 88108; 88161; 88305; 88313

== ENCOUNTER → 2023-04-03 | Outpatient (CLI) | payer OTHER, MEDICAID, SELFPAY ==
--- NOTE | 2023-04-03 10:50 | RAD_ITS ---
EXAM: XR BONE SURVEY, COMPLETE CLINICAL INDICATION: MGUS TECHNIQUE: Multiple views of the bones of the axial and appendicular skeleton. COMPARISON: No relevant prior studies available. FINDINGS: BONES/JOINTS: No acute abnormality. No suspicious bone lesion. SOFT TISSUES: Normal. RAD/Bone Survey Comp(Axial&Append) IMPRESSION: Normal skeletal survey. Electronically Signed: Alhaji Claudio MD at 16:24 EST ,
== END | disposition home or self-care (01) ==
LOC: RAD 10:44
PROVIDERS: PCP Nurse Practitioner Family; Referring Provider Internal Medicine Medical Oncology; Visit Provider Internal Medicine Medical Oncology
DX: D47.2 Monoclonal gammopathy (principal)
CPT/HCPCS: 77075

== ENCOUNTER 2023-04-22 09:18 | Emergency (ER) | payer OTHER, MEDICAID, SELFPAY ==
[2023-04-22] VITALS (10 sets, daily range): BP systolic 112–147; BP diastolic 72–92; PULSE 69–89; RESP 16–24; TEMP 36.7; O2SAT 96–99; BMI 34.3
--- NOTE | 2023-04-22 09:41 | RAD_ITS ---
STUDY: X-RAY CHEST REASON FOR EXAM: Female, 47 years old. Chest pain. TECHNIQUE: Single frontal view of the chest. COMPARISON: April 03, 2021 FINDINGS: The lungs are clear and expanded. There is no demonstrated pleural abnormality. Normal size heart. Normal mediastinum and jay. Normal visualized pulmonary arteries. Normal visualized aortic arch and descending thoracic aorta. Normal visualized thoracic spine. Normal visualized ribs, clavicles, and shoulders. There is no demonstrated abnormality of the visualized soft tissue structures of the upper abdomen. RAD/Chest 1 View (Portable) IMPRESSION: No interval change and no acute or active cardiopulmonary disease. Electronically Signed: Daniel Wheat MD at 10:27 EST ,
--- NOTE | 2023-04-22 09:43 | ED.VIS.CHEST ---
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 Not had this before. No known history of heart problems but she does have a history of acid reflux and was diagnosed with MGUS. She takes a PPI. This was diagnosed by EGD. She denies any pleuritic nature of this discomfort nor leg pain or swelling recently, no history of DVT or PE, no recent long travel, hospitalization, or surgery. [facility] Medical History Blood disorder Breast cancer screening Chronic constipation Chronic left hip pain Colon cancer screening DM 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 Elevated blood pressure reading in office without diagnosis of hypertension Essential hypertension GERD (gastroesophageal reflux disease) GI bleed Hemangioma History of hiatal hernia History of IBS Hypertension Localized swelling on left hand Low iron Mass of skin of left lower leg MGUS (monoclonal gammopathy of unknown significance) Migraine headache Non-smoker Preventative health care Right thyroid nodule Suspected COVID-19 virus infection Syncope Thyroid disease URI (upper respiratory infection) Vocal cord dysfunction Wears glasses Home Medications calcium carbonate 600 mg calcium (1,500 mg) tablet (Calcium) 600 mg PO DAILY 09/25/20 [History Last Taken Unknown] cholecalciferol (vitamin D3) 10 mcg (400 unit) capsule 10 mcg PO DAILY 09/25/20 [History Last Taken Unknown] cyanocobalamin (vitamin B-12) 50 mcg tablet (Vitamin B-12) 50 mcg PO DAILY 09/25/20 [History Last Taken Unknown] loratadine 10 mg capsule 10 mg PO DAILY 09/25/20 [History Last Taken Unknown] magnesium 200 mg tablet 200 mg PO DAILY 09/25/20 [History Last Taken Unknown] potassium 99 mg PO DAILY 12/15/20 [History Last Taken Unknown] sumatriptan succinate 50 mg tablet (Imitrex) See Rx Instructions PO .COMPLEX #14 tabs 07/24/21 [Rx Last Taken Unknown] linaclotide 290 mcg capsule (Linzess) 290 mcg PO DAILY PRN PRN Diarrhea #90 caps 09/05/22 [Rx Last Taken Unknown] pantoprazole 40 mg tablet,delayed release (Protonix) 40 mg PO BID 60 days #120 tabs 11/29/22 [Rx Last Taken Unknown] cyclobenzaprine 10 mg tablet See Rx Instructions .Route .COMPLEX #60 tabs 01/29/23 [Rx Last Taken Unknown] ferrous sulfate 325 mg (65 mg iron) tablet 325 mg PO DAILY 04/01/23 [History Last Taken Unknown] sucralfate 1 gram tablet 1 g PO TIDAC 30 days #90 tabs 04/03/23 [Rx Last Taken Unknown] amlodipine 5 mg tablet 5 mg PO QHS 04/18/23 [History Last Taken Unknown] buspirone 5 mg tablet 5 mg PO BID 04/18/23 [History Last Taken Unknown] fexofenadine 180 mg tablet (Aller-Fex) 180 mg PO DAILY 04/18/23 [History Last Taken Unknown] hydroxyzine HCl 25 mg tablet 25 mg PO PRN PRN itching 04/18/23 [History Last Taken Unknown] Allergy/AdvReac Type Severity Reaction Status Date / Time NSAIDS (Non-Steroidal Allergy unknown Verified 04/18/23 10:02 Anti-Inflamma Penicillins Allergy Rash Verified 04/18/23 10:02 sulfamethoxazole Allergy rash Verified 04/18/23 10:02 [From Bactrim] trimethoprim [From Bactrim] Allergy rash Verified 04/18/23 10:02 Family History Aunt Cancer uterine cancer Brother Asthma Sister Autoimmune disorder Other Breast cancer Diabetes Heart disease Hypertension Myocardial infarction Parkinson disease Surgical History Gastric bypass status for obesity H/O section History of esophagogastroduodenoscopy (EGD) History of hysterectomy History of surgical removal of ganglion cyst Hx of cholecystectomy S/P thyroid surgery Social History Smoking Status: Never smoker ROS ROS ED Constitutional Constitutional ED: Denies chills or fever(s) Eyes Eyes: Denies change in vision or diplopia ENT ENT ED: Denies rhinorrhea or sore throat Cardiovascular Cardiovascular: Reports chest pain, lightheadedness and radiating jaw, neck or arm pain; Denies leg edema or palpitations Respiratory/Chest Respiratory/Chest: Reports dyspnea; Denies cough or dyspnea on exertion Gastrointestinal Gastrointestinal: Denies abdominal pain, diarrhea, nausea or vomiting Genitourinary Genitourinary ED: Denies dysuria or hematuria Musculoskeletal Musculoskeletal: Denies back pain or neck pain Integumentary Denies abscess or rash Neurologic Neurologic: Denies headache(s), paresthesias or weakness Psychiatric Psychiatric: Reports anxiety; Denies suicidal thoughts EXAM Physical Exam Const Vital Signs: 04/22/23 09:19 04/22/23 09:58 04/22/23 11:37 Temperature 98.1 F Temperature Source Temporal Pulse Rate 89 74 Respiratory Rate 16 24 H Blood Pressure 147/92 H 122/79 H Blood Pressure Mean 110 93 Pulse Ox 97 99 96 Oxygen Delivery Method Room Air Room Air 04/22/23 11:49 Temperature Temperature Source Pulse Rate 76 Respiratory Rate Blood Pressure 119/85 H Blood Pressure Mean Pulse Ox Oxygen Delivery Method Positive well nourished and well developed General Appearance ED: well developed and NAD HEENT Reports moist mucous membranes normocephalic and atraumatic Eyes PERRL and EOMs intact bilaterally Neck full ROM and supple Resp normal respiratory effort and clear to auscultation bilaterally Cardio regular rate, regular rhythm and no murmurs GI non-tender and non-distended Auscultation: normoactive bowel sounds Palpation: soft Back/Spine no CVA tenderness General Back: other FROM Extremity normal to inspection General Extremety ED: Negative for edema, pulses abnormal or tenderness General Extremity: Negative for edema or pulses abnormal Neuro oriented x3, CN's II-XII intact bilaterally and no sensory deficits noted Sensorium / Orientation: awake and alert Motor Exam: strength 5/5 throughout Psych Mood & Affect: tearful Skin no rashes or lesions noted and no wounds Heart Score History: Moderately Suspicious ECG: Normal Age: </= 45 years Risk Factors: 1 or 2 Risk Factors Troponin: </= Normal Limit Score: 2 MDM MDM MDM Narrative Medical decision making narrative: Patient has normal EKG and initial set of enzymes are normal in single digits, we repeated these 2 hours later and has gone from 4-5, which is basically negative workup for ACS. In the meantime she was given a GI cocktail which helped a little with the discomfort but she still had left upper extremity discomfort, she then was amenable to trying nitroglycerin and considering esophageal spasm which is more likely to help this quicker than calcium channel blockers, she did have further improvement but noticed discomfort is still mildly persistent. Given 2 sets of negative enzymes a low heart score normal EKG, and a 1 view chest x-ray that on my interpretation is normal-appearing, I do not think she needs further emergent workup here. Her PERC score is 0, ruling out pulmonary embolus in context of this discomfort which is really inconsistent with PE generally anyway. My suspicion is that this is esophageal in nature, mimicking ACS. At this time she is stable for discharge home. She was at work when she came here to be offered a work note, but if she wants to go back to work that would be okay with me as well. Advised to follow-up with her doctor. Lab Data Attestation: I reviewed the patient's lab results. Labs: Laboratory Results - last 24 hr 04/22/23 04/22/23 10:00 12:30 WBC 9.9 RBC 4.81 Hgb 14.3 Hct 42.9 MCV 89.2 MCH 29.7 MCHC 33.3 RDW Std Deviation 43.2 RDW Coeff of Cristin 13.1 Plt Count 316 MPV 10.2 Immature Gran % (Auto) 0.500 Neut % (Auto) 76.8 H Lymph % (Auto) 16.7 L [place] % (Auto) 4.7 Eos % (Auto) 0.4 Baso % (Auto) 0.9 Absolute Neuts (auto) 7.6 Absolute Lymphs (auto) 1.65 Nucleated RBC % 0 Sodium 142 Potassium 3.9 Chloride 108 H Carbon Dioxide 27.0 Anion Gap 7 BUN 7 Creatinine 0.57 Estim Creat Clear Calc 107.63 Est GFR (MDRD) Af Amer 147 Est GFR (MDRD) Non-Af 121 BUN/Creatinine Ratio 12.2 Glucose 106 Calcium 9.0 Troponin I High Sens 4 5 Radiography Diagnostic Testing: Clinical Impression(s) from Imaging Studies Chest X-Ray 04/22/23 09:41 IMPRESSION: No interval change and no acute or active cardiopulmonary disease. Electronically Signed: Daniel Wheat MD at 10:27 EST , Rhythm Strip Rhythm Strip: Sinus Rhythm Rate: 75 Ectopy: None EKG Initial EKG: Attestation: I personally reviewed and interpreted this EKG as follows: Interpretation: Sinus Rhythm and No Acute Injury Pattern Comments: Normal EKG Prior EKG tracings: available for review Prior: Unchanged Discharge Plan Triage Chief Complaint: Chest Pain ED Provider: Cesar Lloyd Dx/Rx/DC Orders Clinical Impression: Non-cardiac chest pain Instructions: ED Chest Pain, Noncardiac Prescriptions: No Action Vitamin B-12 50 mcg tablet 50 mcg PO DAILY calcium carbonate [Calcium 600] 600 mg calcium (1,500 mg) tablet 600 mg PO DAILY cholecalciferol (vitamin D3) 10 mcg (400 unit) capsule 10 mcg PO DAILY magnesium 200 mg tablet 200 mg PO DAILY loratadine 10 mg capsule 10 mg PO DAILY potassium 99 mg PO DAILY ferrous sulfate 325 mg (65 mg iron) tablet 325 mg PO DAILY buspirone 5 mg tablet 5 mg PO BID Patient Comments: TAKE 1 TABLET BY MOUTHTTWICE DAILY fexofenadine [Aller-Fex] 180 mg tablet 180 mg PO DAILY hydroxyzine HCl 25 mg tablet 25 mg PO PRN PRN (Reason: itching) Patient Comments: TAKE 1 TABLET BY MOUTH 3CTIMES A DAY NEEDED FOR ITCHING amlodipine 5 mg tablet 5 mg PO QHS Rx Instructions: TAKE 1 TABLET BY MOUTH ONCE DAILY sumatriptan succinate [Imitrex] 50 mg tablet See Rx Instructions PO .COMPLEX Qty: 14 2RF Rx Instructions: take 1 tab at onset of headache; if no relief may repeat 1 tab after at least 2 hrs; max = 4 tabs/24 hr PO Linzess 290 mcg capsule 290 mcg PO DAILY PRN PRN (Reason: Diarrhea) Qty: 90 1RF pantoprazole [Protonix] 40 mg tablet,delayed release (DR/EC) 40 mg PO BID 60 Days Qty: 120 8RF cyclobenzaprine 10 mg tablet See Rx Instructions .ROUTE .COMPLEX Qty: 60 2RF Dose Instruction: TAKE 1 TABLET BY MOUTH 3 TIMES A DAY NEEDED FOR MUSCLE SPASMS Rx Instructions: TAKE 1 TABLET BY MOUTH 3 TIMES A DAY NEEDED FOR MUSCLE SPASMS sucralfate 1 gram tablet 1 g PO TIDAC 30 Days Qty: 90 0RF Primary Care Provider: Giancarlo Posadas NP Referrals: Giancarlo Posadas NP, [facility] [Primary Care Provider] - As soon as possible Disposition Disposition: Home, Self Care
[2023-04-22] MEDS: Dicyclomine 10 MG Capsule 20 MG PO (09:56)
[2023-04-22] MEDS: Mag Hydrox/Al Hydrox/Simeth 30 ML UDC PO (09:56)
[2023-04-22 10:02] LABS: Absolute Lymphocyte Count 1.65 X10^3/uL (0.83-4.51); Absolute Neutrophil Count 7.6 X10^3/uL (2.0-7.7); Basophil# 0.09 X10^3/uL; Basophil% 0.9 % (0-1); Eosinophil# 0.04 X10^3/uL; Eosinophils% 0.4 % (0-5); Hematocrit 42.9 % (37-47); Hemoglobin 14.3 g/dL (12.0-15.0); Lymphocyte # 1.65 X10^3/ul (0.83-4.51); Lymphocyte % 16.7 % (19-41); Mean Corp Hgb Conc 33.3 g/dL (32-36); Mean Corpuscular Hgb 29.7 pg (27.0-32.0); Mean Corpuscular Volume 89.2 fL (81-99); Mean Platelet Vol. 10.2 fl (6.2-12.0); Monocyte# 0.46 X10^3/uL; Monocyte% 4.7 % (0-10); NRBC Flagged by Analyzer 0 % (0-5); Neutrophil # 7.58 X10^3/uL (2.7-7.7); Neutrophil % 76.8 % (47-70); Platelet Count 316 K/mm3 (150-450); RBC Distribution Width CV 13.1 % (11.6-14.6); RBC Distribution Width SD 43.2 fl (35.1-43.9); Red Blood Count 4.81 M/mm3 (4.2-5.4); White Blood Count 9.9 K/mm3 (4.4-11.0)
[2023-04-22 10:21] LABS: Anion Gap 7 (5-15); BUN 7 mg/dL (7-18); BUN/Creat Ratio 12.2 RATIO (10-20); Chloride 108 mmol/L (98-107); Creatinine, Serum 0.57 mg/dL (0.55-1.02); EST Glomerular Filtration Rate 121 mL/min (>60); Est Glom Filt Rate - Afr Amer 147 mL/min (>60); Estimated Creatinine Clearance 107.63 ml/min; Glucose 106 mg/dL (74-106); Potassium 3.9 mmol/L (3.5-5.1); Sodium Level 142 mmol/L (136-145); Troponin-I HS (w/2H Reflex) 4 pg/mL (3.0-54.0)
[2023-04-22] MEDS: Nitroglycerin SL (ED/IMG/CATH) 0.4 MG TABLET 0.400000000000000022 MG SL (11:49)
[2023-04-22 12:00] LABS: Reflex Troponin-HS? (from REC) Y
[2023-04-22] MEDS: Acetaminophen 500 MG Tablet 1000 MG PO (12:46)
[2023-04-22 13:00] LABS: Troponin-I HS 5 pg/mL (3.0-54.0)
== END 2023-04-22 13:26 | disposition home or self-care (01) ==
PROVIDERS: Emergency Provider Emergency Medicine; PCP Nurse Practitioner Family; Visit Provider Emergency Medicine
DX: R07.89 Other chest pain (principal); E11.9 Type 2 diabetes mellitus without complications; I10 Essential (primary) hypertension; D47.2 Monoclonal gammopathy; K21.9 Gastro-esophageal reflux disease without esophagitis; Z79.899 Other long term (current) drug therapy
CPT/HCPCS: 71045; 80048; 84484; 85025; 93005; 99284; A4216

== ENCOUNTER 2023-04-24 06:18 | Day surgery (SDC) | payer OTHER, MEDICAID, SELFPAY ==
--- OUTSIDE RECORDS SUMMARY | 2023-04-24 06:23 | XMS RPT_ITS | CCD ---
Author Name Unknown Address [address] [place] [address] Organization [facility] Care Team Providers Care Rubber And Pounder Name Role Phone Chevy ROSENBERG, Jarret Vigil Unavailable Aziza Simons Unavailable Unavailable Tizzano, Timothy Bennett Attending Unavailable Oleary, Luciano Ortiz Primary Care Unavailable Tizzano, Timothy Bennett Attending Unavailable Oleary, Luciano Ortiz Primary Care Unavailable Tizzano, Timothy Bennett Admitting Unavailable Tizzano, Timothy Bennett Attending Unavailable Oleary, Luciano Ortiz Primary Care Unavailable Tizzano, Timothy Bennett Admitting Unavailable Tizzano, Timothy Bennett Attending Unavailable Oleary, Luciano Ortiz Primary Care Unavailable Tizzano, Timothy Bennett Attending Unavailable Oleary, Luciano Ortiz Primary Care Unavailable Yifan Fregoso Attending Unavailable Jesu, Luciano Ortiz Primary Care Unavailable Yifan Fregoso Admitting Unavailable Yifan Fregoso Attending Unavailable Jesu, Luciano Ortiz Primary Care Unavailable Jarret Reece MD Unavailable Luciano Oleary Primary Care Provider [phone] LUCIANO OLEARY Admitting Unavailable LUCIANO OLEARY Attending Unavailable LUCIANO OLEARY Primary Care Unavailable LUCIANO OLEARY MD Consulting Unavailable PROVIDER, UNKNOWN Consulting Unavailable JOHN ROMERO Admitting Unavailable JOHN ROMERO Attending Unavailable JOHN ROMERO Primary Care Unavailable LUCIANO OLEARY MD Consulting Unavailable PROVIDER, UNKNOWN Consulting Unavailable Luciano Oleary Primary Care Provider Luciano Oleary MD Primary Care Provider Luciano Oleary MD Primary Care Provider [phone] Jesu ROSENBERG, Luciano Carvajal Primary Care Provider [phone] Jesu ROSENBERG, Luciano Carvajal Primary Care Provider EVANGELINA SAEED Attending Unavailable LUCIANO OLEARY Primary Care Unavailable COREY SPAIN Referring Unavailable COREY SPAIN Attending Unavailable LUCIANO OLEARY Referring Unavailable LUCIANO OLEARY Primary Care Unavailable Allergies Allergy Classification Reported Allergen(s) Allergy Type Date of Onset Reaction(s) Facility (5 sources) penicillin drug allergy 08-30-19 15 rash [facility] Work Phone: (11 sources) Penicillins; Translations: [penicillins] Propensity to adverse reactions to drug (disorder) 02-19-20 18 Rash [facility] Repository (10 sources) Sulfamethoxazole / Trimethoprim Drug Allergy 09-29-19 19 Itching, Rash [place], [place] (9 sources) Penicillin G; Translations: [PENICILLIN G] Drug Allergy 03-11-[address] [facility] Work Phone: (3 sources) Non-steroidal anti-inflammatory agent; Translations: [NSAIDS (NON-STEROIDAL ANTI-INFLAMMATORY DRUG)] Drug Allergy 02-08-20 22 Unknown [facility] (3 sources) Sulfamethoxazole; Translations: [SULFAMETHOXAZOLE] Drug Allergy 01-09-20 21 Rash, Unknown [facility] Medications Current Medications Medication Drug Class(es) Dates Sig (Normalized) Sig (Original) acetaminophen / oxyCODONE (17 sources) Opioid Agonist Start: 12-29-2018 oxyCODONE-acetamin ophen (PERCOCET) 5-325 MG per tablet 1 tablet Completed/Discontinued Medications Medication Drug Class(es) Dates Sig (Normalized) Sig (Original) acetaminophen 500 mg oral tablet (1 source) Start: 12-28-2018 End: 12-28-2018 acetaminophen (TYLENOL) tablet 1,000 mg 24 hr buPROPion hydrochloride 150 mg extended release oral tablet (8 sources) Aminoketone take 1 tablet by mouth twice daily buPROPion XL (WELLBUTRIN XL) 150 mg 24 hr tablet Take 150 mg by mouth twice daily. 0 Active Problems Active Problems Problem Classification Problem Date Documented Da te Episodic/Chronic Coma; stupor; and brain damage (10 sources) Daytime somnolence; Translations: [Daytime sleepiness] 02-18-2018 Episodic Esophageal disorders (12 sources) Gastroesophageal reflux disease; Translations: [GERD (gastroesophageal reflux disease)] 05-05-2018 Chronic Malaise and fatigue (10 sources) Fatigue; Translations: [Fatigue] 02-18-2018 Episodic Menstrual disorders (10 sources) Irregular periods; Translations: [Irregular menstrual cycle] 02-18-2018 Chronic Nonmalignant breast conditions (5 sources) Fibrocystic disease of breast; Translations: [Diffuse cystic mastopathy of unspecified breast] Onset: 5 03-27-2015 Chronic Other gastrointestinal disorders (2 sources) Intestinal malabsorption; Translations: [Intestinal malabsorption] Onset: 0 04-27-2019 Chronic Other gastrointestinal disorders (1 source) Dysphagia; Translations: [Dysphagia, unspecified] Episodic Other liver diseases (11 sources) Steatosis of liver; Translations: [Hepatic steatosis] Onset: 9 12-03-2018 Chronic Other lower respiratory disease (10 sources) Dyspnea on exertion; Translations: [Shortness of breath on exertion] 02-18-2018 Episodic Other nervous system disorders (1 source) Postoperative pain ; Translations: [Post-op pain] Episodic Other nutritional; endocrine; and metabolic disorders (11 sources) Morbid obesity; Translations: [Morbid obesity] 02-18-2018 Chronic Other nutritional; endocrine; and metabolic disorders (8 sources) Body mass index 40+ - severely obese; Translations: [Morbid obesity with BMI of 50.0-59.9, adult] Onset: 9 12-03-2018 Chronic Residual codes; unclassified (13 sources) Obstructive sleep apnea syndrome; Translations: [PETER on CPAP] 02-18-2018 Chronic Thyroid disorders (12 sources) Non-toxic uninodular goiter; Translations: [Nontoxic single thyroid nodule] Onset: 5 04-11-2015 Chronic Unclassified (4 sources) Aftercare ; Translations: [Encounter for other specified surgical aftercare] Onset: 7 08-27-2016 Unclassified (1 source) Patient encounter status; Translations: [Screening for diabetes mellitus] Past or Other Problems Problem Classification Problem Date Documented Da te Episodic/Chronic Abdominal hernia (11 sources) Hiatal hernia; Translations: [Hiatal hernia] Onset: 05-05-2018 05-05-2018 Episodic Complications of surgical procedures or medical care (5 sources) Non-healing surgical wound; Translations: [Non-healing surgical wound] Onset: 12-12-2014 12-12-2014 Episodic Diabetes mellitus without complication (12 sources) Diabetes mellitus; Translations: [Type 2 diabetes mellitus] Resolved: 01-28-2019 02-18-2018 Chronic Diabetes mellitus without complication (1 source) Prediabetes; Translations: [Prediabetes] Episodic Essential hypertension (13 sources) Hypertensive disorder; Translations: [High blood pressure] Resolved: 01-28-2019 02-18-2018 Chronic Neoplasms of unspecified nature or uncertain behavior (5 sources) Neoplasm of unspecified behavior of bone, soft tissue, and skin; Translations: [Neoplasm of unspecified behavior of bone, soft tissue, and skin] Onset: 08-29-2014 08-30-2014 Episodic Nutritional deficiencies (2 sources) Deficiency of multiple nutrient elements; Translations: [Deficiency of multiple nutrient elements] Onset: 04-27-2019 04-27-2019 Episodic Other aftercare (9 sources) Other specified aftercare following surgery; Translations: [Encounter for other specified aftercare following surgery] Onset: 11-15-2014 Resolved: 08-27-2016 11-19-2014 Episodic Other and unspecified benign neoplasm (5 sources) Lipoma (clinical); Translations: [Lipoma of other skin and subcutaneous tissue] Onset: 11-15-2014 11-27-2014 Episodic Other connective tissue disease (19 sources) Ganglion of joint; Translations: [Ganglion of wrist] Onset: 08-29-2014 08-30-2014 Episodic Other connective tissue disease (1 source) Ganglion of wrist; Translations: [Ganglion, right wrist] Onset: 07-03-2016 07-03-2016 Episodic Other nervous system disorders (5 sources) Disturbance of skin sensation; Translations: [Disturbance of skin sensation] Onset: 08-29-2014 08-30-2014 Episodic Other non-traumatic joint disorders (5 sources) Pain in wrist; Translations: [Pain in unspecified wrist] Onset: 07-03-2016 07-03-2016 Episodic Other skin disorders (9 sources) Localized swelling, mass and lump, unspecified; Translations: [Inflamed seborrheic keratosis] Onset: 08-29-2014 08-30-2014 Episodic Other skin disorders (1 source) Inflamed seborrheic keratosis; Translations: [Inflamed seborrheic keratosis] Onset: 11-15-2014 11-27-2014 Episodic Results Test Name Value Interpretation Reference Range Facil ity Vital Signs Date Time Vital Sign Value Performing Clinician Mando haylie 03-13-2022 11:10-0500 Body height 162.6 cm Evangelina Saeed MD Work Phone: [facility] 03-13-2022 11:10-0500 Body weight 94.35 kg Evangelina Saeed MD Work Phone: [facility] 03-13-2022 11:10-0500 Diastolic blood pressure 85 mm[Hg] Evangelina Saeed MD Work Phone: [facility] 03-13-2022 11:10-0500 Heart rate 71 /min Evangelina Saeed MD Work Phone: [facility] 03-13-2022 11:10-0500 Systolic blood pressure 142 mm[Hg] Evangelina Saeed MD Work Phone: [facility] 12-30-2018 11:16-0400 Body Temperature 100 [degF] John [employer] [facility] [place] 12-30-2018 11:16-0400 BP Diastolic 104 mm[Hg] [employer] [facility] , [place] 12-30-2018 11:16-0400 BP Systolic 149 mm[Hg] [employer] [facility] [place] 12-30-2018 11:16-0400 Pulse (Heart Rate) 73 /min [facility] 12-30-2018 11:16-0400 Pulse Oximetry 96 % John [facility] [place] 12-30-2018 11:16-0400 Respiratory Rate 16 /min [facility] [employer] [facility], [place] 12-28-2018 05:35-0400 BMI (Body Mass Index) 49.26 kg/m2 John Romero [employer] [facility], [place] 12-28-2018 05:35-0400 Body weight 130.18 kg [facility] [place] 12-28-2018 05:35-0400 Height 162.6 cm John [employer] [facility] , [place] 12-22-2018 07:40-0400 BMI (Body Mass Index) 49.26 kg/m2 John Fox [facility] 12-22-2018 07:40-0400 Body Temperature 98.2 [degF] John Fox [facility], [place] 12-22-2018 07:40-0400 Body weight 130.18 kg John Fox [facility] , [place] 12-22-2018 07:40-0400 BP Diastolic 70 mm[Hg] John Fox [facility] , [place] 12-22-2018 07:40-0400 BP Systolic 115 mm[Hg] John Romero [facility] , [place] 12-22-2018 07:40-0400 Height 162.6 cm [facility] , [place] 12-22-2018 07:40-0400 Pulse (Heart Rate) 70 /min John Romero [facility], [place] 12-22-2018 07:40-0400 Pulse Oximetry 97 % John Romero [facility] , [place] 12-22-2018 07:40-0400 Respiratory Rate 16 /min John Romero [facility], [place] 08-30-2016 09:47-0400 BMI (Body Mass Index) 50.63 kg/m2 Jarret Reece MD [facility] Work Phone: 08-30-2016 09:47-0400 Body Temperature 98.6 [degF] Jarret Reece MD [facility] Work Phone: 08-30-2016 09:47-0400 BP Diastolic 82 mm[Hg] Jarret Reece MD [facility] Work Phone: 08-30-2016 09:47-0400 BP Systolic 126 mm[Hg] Jarret Reece MD [facility] Work Phone: 08-30-2016 09:47-0400 BSA (Body Surface Area) 2.34 m2 Jarret Reece MD [facility] Work Phone: 08-30-2016 09:47-0400 Height 163.83 cm Jarret Reece MD [facility] Work Phone: 08-30-2016 09:47-0400 Pulse (Heart Rate) 62 /min Jarret Reece MD [facility] Work Phone: 08-30-2016 09:47-0400 Pulse Oximetry 97 % Jarret Reece MD [facility] Work Phone: 08-30-2016 09:47-0400 Respiratory Rate 16 /min Jarret Reece MD [facility] Work Phone: 08-30-2016 09:47-0400 Weight 135.9 kg Jarret Reece MD [facility] Work Phone: 08-21-2016 13:12-0400 BMI (Body Mass Index) 50.12 kg/m2 Jarret Reece MD [facility] Work Phone: 08-21-2016 13:12-0400 Body Temperature 98.3 [degF] Jarret Reece MD [facility] Work Phone: 08-21-2016 13:12-0400 BP Diastolic 84 mm[Hg] Jarret Reece MD [facility] Work Phone: 08-21-2016 13:12-0400 BP Systolic 123 mm[Hg] Jarret Reece MD [facility] Work Phone: 08-21-2016 13:12-0400 BSA (Body Surface Area) 2.33 m2 Jarret Reece MD [facility] Work Phone: 08-21-2016 13:12-0400 Height 163.83 cm Jarret Reece MD [facility] Work Phone: 08-21-2016 13:12-0400 Pulse (Heart Rate) 60 /min Jarret Reece MD [facility] Work Phone: 08-21-2016 13:12-0400 Pulse Oximetry 97 % Jarret Reece MD [facility] Work Phone: 08-21-2016 13:12-0400 Respiratory Rate 16 /min Jarret Reece MD [facility] Work Phone: 08-21-2016 13:12-0400 Weight 134.54 kg Jarret Reece MD [facility] Work Phone: 07-03-2016 11:18-0400 BMI (Body Mass Index) 49.98 kg/m2 [facility] Work Phone: 07-03-2016 11:18-0400 Body Temperature 98.6 [degF] [facility] Work Phone: 07-03-2016 11:18-0400 BP Diastolic 85 mm[Hg] Azizamegan Simons [facility] Work Phone: 07-03-2016 11:18-0400 BP Systolic 121 mm[Hg] Azizamegan Simons [facility] Work Phone: 07-03-2016 11:18-0400 BSA (Body Surface Area) 2.33 m2 [facility] Work Phone: 07-03-2016 11:18-0400 Height 163.83 cm Aziza Simons [facility] Work Phone: 07-03-2016 11:18-0400 Pulse (Heart Rate) 64 /min Aziza [facility] Work Phone: 07-03-2016 11:18-0400 Pulse Oximetry 98 % [facility] Work Phone: 07-03-2016 11:18-0400 Respiratory Rate 16 /min Aziza Simons [facility] Work Phone: 07-03-2016 11:18-0400 Weight 134.17 kg Aziza Simons [facility] Work Phone: Encounters Encounter Date Encounter Type Care Provider Facility Start: 03-13-2022 End: 03-14-2022 Orders Only Evangelina Saeed MD Work Phone: [facility] Procedures Date Procedure Procedure Detail Performing Clinician Start: 03-13-2022 Us soft tissue head & neck real time imge docm Rama Rubin MD Work Phone: Start: 12-30-2018 Gluc bld gluc mntr d ev cleared fda spec home use John Romero Work Phone: Start: 12-30-2018 Gluc bld gluc mntr d ev cleared fda spec home use John Romero Work Phone: Start: 12-30-2018 Blood count complete auto&auto difrntl wbc John Romero Work Phone: Start: 12-30-2018 BASIC METABOLIC PANE L W/ REFLEX TO MG FOR LOW K Alen Rodriguez Work Phone: Start: 12-30-2018 Gluc bld gluc mntr d ev cleared fda spec home use John Romero Work Phone: Start: 12-29-2018 Gluc bld gluc mntr d ev cleared fda spec home use John Romero Work Phone: Start: 12-29-2018 Gluc bld gluc mntr d ev cleared fda spec home use John Romero Work Phone: Start: 12-29-2018 Gluc bld gluc mntr d ev cleared fda spec home use John Romero Work Phone: Start: 12-29-2018 Radex gi tract upper w/wo delayed images w/o kub Alen Rodriguez Work Phone: Start: 12-29-2018 Gluc bld gluc mntr d ev cleared fda spec home use John Romero Work Phone: Start: 12-29-2018 Assay of magnesium Girish Rodriguez Work Phone: Start: 12-29-2018 BASIC METABOLIC PANE L W/ REFLEX TO MG FOR LOW K Alen Rodriguez Work Phone: Start: 12-29-2018 Blood count complete auto&auto difrntl wbc Alen Rodriguez Work Phone: Start: 12-28-2018 Gluc bld gluc mntr d ev cleared fda spec home use John Romero Work Phone: Start: 12-28-2018 Gluc bld gluc mntr d ev cleared fda spec home use John Romero Work Phone: Start: 12-28-2018 OPERATIVE REPORT 3m Sca nning Start: 12-28-2018 BASIC METABOLIC PANE L W/ REFLEX TO MG FOR LOW K Alen Rodriguez Work Phone: Start: 12-28-2018 Blood count hemoglobin Alen Rodriguez Work Phone: Start: 12-28-2018 Gluc bld gluc mntr d ev cleared fda spec home use John [facility]ighborhood[facility] Work Phone: Start: 12-28-2018 Level iv surg pathol ogy gross&microscopic exam John Dubon [employer] Work Phone: Start: 12-28-2018 Gluc bld gluc mntr d ev cleared fda spec home use John Dubon [facility] Work Phone: Start: 12-22-2018 Basic metabolic pane l calcium total Leyda R Bridle Work Phone: Start: 12-03-2018 Albumin serum plasma /whole blood Leyda R Bridle Work Phone: Start: 12-03-2018 Basic metabolic pane l calcium total Leyda R Bridle Work Phone: Start: 12-03-2018 Blood count complete automated Leyda R Bridle Work Phone: Start: 12-03-2018 Hemoglobin glycosyla katia a1c Leyda R Bridle Work Phone: Start: 12-03-2018 Radiologic exam ches t 2 views Leyda R Bridle Work Phone: Start: 08-30-2016 End: 08-30-2016 Dietary management education, guidance, and counseling Jarret Reece MD Start: 08-21-2016 End: 08-28-2016 Follow up Appt 1 week Jarret Reece MD Start: 07-03-2016 End: 08-15-2016 Follow Up Appt Other Jarret Reece MD Start: 07-03-2016 End: 08-28-2016 Mri upper extremity w/dye Jarret Reece MD Start: 07-03-2016 End: 08-28-2016 X-ray exam of wrist Jarret Reece MD Start: 12-23-2014 End: 07-04-2016 Follow Up Appt Tala Reece MD Start: 12-12-2014 End: 07-04-2016 Bacterica wound culture Jarret Reece MD Start: 12-12-2014 End: 07-04-2016 Follow up Appt 1 week Jarret Reece MD Start: 12-12-2014 End: 07-04-2016 Mri upper extremity w/dye Jarret Reece MD Start: 2014 End: 07-04-2016 Follow Up Appt Tala Reece MD Start: 2014 End: 07-04-2016 Primary Care Physician Jarret Reece MD Start: 08-29-2014 End: 11-15-2014 Follow Up Appt Tala Reece MD Start: 08-29-2014 End: 08-30-2014 Wrist Splint Jarret Reece MD Plan of Treatment Date Care Activity Detail Author Start: 12-20-2021 Influenza vaccination INFLUENZA (#1) [facility] Start: 05-23-2021 COVID-19 VACCINE (3 - Booster for Pfizer series) COVID-19 VACCINE (3 - Booster for Pfizer series) [facility] Start: 04-21-2021 DEPRESSION ASSESSMENT DEPRESSION ASSESSMENT [facility] Start: 06-30-2020 End: 06-30-2020 Office Visit 06/30/2020 Office Visit Weight Management Xiao Danielle MD [address] [facility] [address] [place], [place] [id number] [facility] Start: 12-31-2019 Creatinine monitoring Creatinine monitoring [facility] , [place] Start: 12-31-2019 Potassium monitoring Potassium monitoring [facility], [place] Start: 12-30-2019 Creatinine monitoring Creatinine monitoring [place], [place] Start: 12-30-2019 Potassium monitoring Potassium monitoring [place], [place] Start: 12-23-2019 Creatinine monitoring Creatinine monitoring [place] Start: 12-23-2019 Potassium monitoring Potassium [place] Start: 12-21-2019 Influenza vaccination Flu vaccine (#1) [place] Start: 12-04-2019 A1C test (Diabetic or Prediabetic) A1C test (Diabetic or Prediabetic) [place] Start: 12-04-2019 Creatinine monitoring Creatinine monitoring [place], [place] Start: 12-04-2019 HbA1c (Bld) [Mass fraction] A1C test (Diabetic or Prediabetic) [place] Start: 12-04-2019 Potassium monitoring Potassium [place] Start: 06-29-2019 End: 06-29-2019 Patient encounter procedure 06/29/2019 Office Visit Bariatrics Leyda Almeida PHARMACY MESSENGER - VEHICLE FARE COLLECTOR [address] [place] [address] [facility] Start: 05-04-2019 Lipid panel Lipid screen [place], [place] Start: 05-04-2019 Lipid screen Lipid [place] Start: 01-07-2019 End: 01-07-2019 Office Visit 01/07/2019 Office Visit Bariatrics John Romero MD [address] [place] [address] [phone] [facility] Start: 01-04-2019 End: 01-04-2019 Office Visit 01/04/2019 Office Visit Bariatrics Leyda Almeida APRN - VEHICLE FARE COLLECTOR [address] [place] [address] [facility] Start: 12-28-2018 End: 12-28-2018 Appointment 12/28/2018 Appointment General Surgery John Romero MD [address] [place], [place] [id number] [facility] General Surgery Start: 12-22-2018 End: 12-22-2018 Appointment 12/22/2018 Appointment Pre-Admission Testing John Romero MD [address] [place] [address] [phone] [facility] Pre-Admit Testing Start: 12-20-2018 Influenza vaccination Flu vaccine (#1) [place] Start: 12-07-2018 End: 12-07-2018 Office Visit 12/07/2018 Office Visit Weight Management Xiao Danielle MD [address] [place] [address] [phone] [facility] Start: 12-04-2018 End: 12-04-2018 Office Visit 12/04/2018 Office Visit [facility] Start: 2017 Mammography MAMMOGRAM [facility] Start: 08-30-2016 End: 08-30-2016 Appointment Appointment [facility] Work Phone: Start: 08-30-2016 End: 08-31-2016 Follow Up Appt Other Follow Up Appt Other [facility] Work Phone: Start: 08-21-2016 End: 08-21-2016 Appointment Appointment [facility] Work Phone: Start: 08-21-2016 End: 08-28-2016 Follow up Appt 1 week Follow up Appt 1 week [facility] Work Phone: Start: 07-03-2016 End: 08-15-2016 Follow Up Appt Other Follow Up Appt Other [facility] Work Phone: Start: 07-03-2016 End: 07-04-2016 Mri upper extremity w/dye MRI Upper Extremity with Contrast [facility] Work Phone: Start: 07-03-2016 End: 07-04-2016 X-ray exam of wrist X-Ray, Wrist [facility] Work Phone: Start: 12-23-2014 End: 07-04-2016 Follow Up Appt Other Follow Up Appt Other [facility] Work Phone: Start: 12-12-2014 End: 07-04-2016 Bacterica wound culture *CUW - Culture, Wound (Aerobic) [facility] Work Phone: Start: 12-12-2014 End: 07-04-2016 Follow up Appt 1 week Follow up Appt 1 week [facility] Work Phone: Start: 12-12-2014 End: 07-04-2016 Mri upper extremity w/dye MRI Upper Extremity with Contrast [facility] Work Phone: Start: 2014 End: 07-04-2016 Follow Up Appt Other Follow Up Appt Other [facility] Work Phone: Start: 2014 End: 07-04-2016 Primary Care Physician Primary Care Physician [facility] Work Phone: Start: 08-29-2014 End: 11-15-2014 Follow Up Appt Other Follow Up Appt Other [facility] Work Phone: Start: 08-12-2013 HPV TESTING HPV TESTING [facility] Start: 08-12-2013 PAP TESTING PAP TESTING [facility] Start: 1996 DTaP/Tdap/Td vaccine (1 - Tdap) DTaP/Tdap/Td vaccine (1 - Tdap) [place], [place] Start: 1996 Hepatitis B Vaccine (1 of 3 - Risk 3-dose series) Hepatitis B Vaccine (1 of 3 - Risk 3-dose series) [place] Start: 1996 Urine microalbumin profile DTAP,TDAP,TD (1 - Tdap) [facility] Start: 11-24-1995 Diabetic microalbuminuria test Diabetic microalbuminuria test [place] Start: 11-24-1995 HEPATITIS C SCREENING HEPATITIS C SCREENING [facility] Start: 11-24-1995 HIV SCREENING HIV SCREENING [facility] Start: 1992 HIV screen HIV screen [place], [place] Start: 1992 HIV screening HIV screen [place] Start: 1989 Adult depression screening assessment DEPRESSION SCREENING [facility] Start: 1988 DTaP/Tdap/Td vaccine (1 - Tdap) DTaP/Tdap/Td vaccine (1 - Tdap) [facility] Work Phone: Start: 11-24-1987 [object Object] Diabetic foot exam [place] Start: 11-24-1987 Diabetic foot examination Diabetic foot exam [place] Start: 11-24-1987 Diabetic retinal exam Diabetic retinal exam [place], [place] Start: 11-24-1983 Pneumococcal 0-64 years Vaccine (1 of 1 - PPSV23) Pneumococcal 0-64 years Vaccine (1 of 1 - PPSV23) [place] Start: 05-26-1978 COVID-19 VACCINE (#1) COVID-19 VACCINE (#1) [facility] Start: 1977 HEPATITIS B (1 of 3 - 3-dose series) HEPATITIS B (1 of 3 - 3-dose series) [facility] Basic Metabolic Pane l w/ Reflex to MG Basic Metabolic Panel w/ Reflex to MG Lab Routine Daily until discontinued starting 12/29/2018, 2 completed [place] Immunizations Immunization Date Immunization Notes Care Provider Doreen wilson NEGATED: Highlighted row has not occurred!12-29-2018 influenza, injectable, quadrivalent, preservative free John Romero [place], [place] Payers Date Payer Category Payer Unknown [id number] 2018 Unknown [id number] [facility] xxxxxxxxxxx 2018-Present [phone] CLAIMS DEPARTMENT [address] [place] [address] xxxxxxxxxxx [id number] 2017 Unknown 2014 Medicaid [id number] 2014 Unknown [id number] 1975 Unknown [id number] 1975 Unknown [id number] 1975 Unknown [id number] 1975 Unknown [id number] 1975 Unknown [id number] 1975 Unknown [id number] Social History Date Type Detail Facility Start: 12-03-2018 End: 03-13-2022 Tobacco smoking status NHIS Never smoker [facility] Start: 12-03-2018 End: 12-22-2018 Alcohol intake No Spectral Image Start: 1975 [facility] Start: 01-28-2019 End: 03-13-2022 Tobacco use and exposure Never used [facility] [employer] Start: 01-28-2019 End: 03-13-2022 Alcohol intake Current non-drinker of alcohol (finding) [facility] Work Phone: Start: 1975 Sex Assigned At Female C [facility] Start: 03-03-2022 End: 03-13-2022 Exposure to SARS-CoV-2 (event) Not sure [facility] Progress note 03-13-2022 Note Date & Type Note Facility 03-13-2022 Note HNO ID: [id number] Author: Evangelina Saeed MD Service: ? Author Type: Physician Type: Progress Notes Filed: 03/13/2022 12:25 PM Note Text: Endocrinology Metabolism [place] [facility] Evangelina Saeed M.D. Section of Endocrine Surgery and Advanced Laparoscopic Surgery [address] [place] [address], [address] [address] ENDOCRINE SURGERY NEW CONSULTATION NAME: [facility]il [facility] NO: [id number] : 1975 Surgeon: Dr. Evangelina Saeed REFERRING PROVIDER: Corey Harding [address] [address] The patient was referred by the above provider and my findings and recommendations will be communicated by way of the shared medical record. HPI: The patient was evaluated today for a consultation regarding Multinodular goiter. Per endocrinology notes: s/p left lobectomy 1999 (benign), left vocal cord paralysis, right thyroid nodules, Obesity s/p Gastric bypass in 2019, Hx of GERD and Migraines, visit for evaluation of right thyroid nodules. Hx of left lobectomy in 1999 - benign Has been monitored for the right sided nodules since then Right sided nodule measuring 6 mm in 01/2014, 1.9 x 1.6 x 1 cm in 11/2020 and 2.2 x 1.8 x 1.4 cm in 11/2021 FNA of right upper and mid nodules in 12/2020 benign FNA of 2.2 cm right nodule in 04/2021 benign (drained then as well) Seems to grow in cystic component Was told she has left vocal cord paralysis recently History of head and neck radiation: No Family history of thyroid cancer: No History of previous thyroid biopsy or any cervical operation: Yes A - SLIDE(S) - RIGHT THYROID NODULE FLUID, FINE NEEDLE ASPIRATION, 10 OUTSIDE SLIDES, ([id number]), [place], [place], (01-08-21): Benign. Consistent with colloid nodule with cystic changes. B - SLIDE(S) - RIGHT THYROID NODULE FLUID, FINE NEEDLE ASPIRATION, 9 OUTSIDE SLIDES, ([id number]), [place], [place], (05-14-2021): Non-diagnostic aspirate sample. Cyst Contents with rare groups of follicular cells (see comment). PMH: PAST MEDICAL HISTORY Diagnosis Date Adjustment disorder with depressed mood Migraine Nontoxic uninodular goiter LEFT PSH: PAST SURGICAL HISTORY Procedure Laterality Date DELIVERY ONLY 06-04-2001 , low cervical LAPAROSCOPY SURG CHOLECYSTECTOMY 2006 Cholecystectomy, lap LIG/TRNSXJ FLP TUBE ABDL/VAG APPR UNI/BI SEPTEMBER 2001 TOTAL THYROID LOBECTOMY UNI W/WO ISTHMUSECTOMY 06/11/07 LEFT Medications: Current Outpatient Medications on File Prior to Visit Medication Sig sumatriptan succinate(IMITREX 50 MG TAB) Use as directed as needed. buPROPion XL (WELLBUTRIN XL) 150 mg 24 hr tablet Take 150 mg by mouth twice daily. topiramate (TOPAMAX) 100 mg tablet Take 100 mg by mouth once daily. omeprazole (PRILOSEC) 40 mg capsule Take 40 mg by mouth once daily. cyclobenzaprine (FLEXERIL) 10 mg tablet Take 10 mg by mouth three times daily as needed. POLYETHYLENE GLYCOL 3350 (MIRALAX ORAL) Take by mouth once daily. INDERAL LA 120 MG 24 HR CAP Take one(1) tablet daily. No current facility-administered medications on file prior to visit. All: ALLERGIES Allergen Reactions Nsaids (Non-Steroid* Unknown Sulfamethoxazole Rash, Unknown Penicillin G Rash SH: Social History Tobacco Use Smoking status: Never Smokeless tobacco: Never Substance Use Topics Alcohol use: No Drug use: No FH: Pertinent history above; otherwise, non-contributory REVIEW OF SYSTEMS: GENERAL: Well-appearing, no malaise or fevers Dyspnea:No. Dysphagia:Yes. Pressure symptoms:No. PHYSICAL EXAM: On physical exam, Angela Bui is well appearing, alert, and oriented and appears euthyroid. On inspection, the skin over the anterior neck is smooth, no mass is visualized. Palpation revealed no thyroid enlargement. No lymphadenopathy was palpated on either side of the neck. ULTRASOUND EXAMINATION: Ultrasound examination was performed in the office today. This demonstrated 2 cystic nodules involving the right thyroid lobe. The largest nodule measured 1.96 cm. There was surgical absence of the left thyroid lobe. No worrisome lymphadenopathy was appreciated in either bilateral central neck or lateral jugular chain compartments. A fine needle aspiration biopsy not performed. LABS: No results found for: TSH No results found for: CA ASSESSMENT: In summary, Angela Bui has Multinodular goiter with small cystic nodules. PLAN: My recommendation is to monitor the patient. She agrees. Her concern was for her dysphagia and has an appointment with her bariatrics team. I appreciate being involved in the care of your patient, and please feel free to contact me should you have additional questions. I spent a total of 30 minutes on the date of the service which included preparing to see the patient, [id number] patient care, completing cl (more content not included)... [facility] History of Present illness Narrative 03-13-2022 Evangelina Saeed MD - 03/13/2022 12:09 PM EST Note Date & Type Note Facility 03-13-2022 History of Presen t illness Narrative Endocrinology Metabolism [place] [facility] Evangelina Saeed M.D. Section of Endocrine Surgery and Advanced Laparoscopic Surgery [address] [place] [address], [facility] [address] [id number] ENDOCRINE SURGERY NEW CONSULTATION NAME: Angela Bui [facility] NO: [id number] : 1975 Surgeon: Dr. Evangelina Saeed REFERRING PROVIDER: Corey Harding [address] [address] The patient was referred by the above provider and my findings and recommendations will be communicated by way of the shared medical record. HPI: The patient was evaluated today for a consultation regarding Multinodular goiter. Per endocrinology notes: s/p left lobectomy 1999 (benign), left vocal cord paralysis, right thyroid nodules, Obesity s/p Gastric bypass in 2018, Hx of GERD and Migraines, visit for evaluation of right thyroid nodules. Hx of left lobectomy in 1999 - benign Has been monitored for the right sided nodules since then Right sided nodule measuring 6 mm in 01/2014, 1.9 x 1.6 x 1 cm in 11/2020 and 2.2 x 1.8 x 1.4 cm in 11/2021 FNA of right upper and mid nodules in 12/2020 benign FNA of 2.2 cm right nodule in 04/2021 benign (drained then as well) Seems to grow in cystic component Was told she has left vocal cord paralysis recently History of head and neck radiation: No Family history of thyroid cancer: No History of previous thyroid biopsy or any cervical operation: Yes A - SLIDE(S) - RIGHT THYROID NODULE FLUID, FINE NEEDLE ASPIRATION, 10 OUTSIDE SLIDES, ([id number]), [place], [place], (01-08-21): Benign. Consistent with colloid nodule with cystic changes. B - SLIDE(S) - RIGHT THYROID NODULE FLUID, FINE NEEDLE ASPIRATION, 9 OUTSIDE SLIDES, ([id number]), [place], [place], (05-14-2021): Non-diagnostic aspirate sample. Cyst Contents with rare groups of follicular cells (see comment). PMH: PAST MEDICAL HISTORY Diagnosis Date Adjustment disorder with depressed mood Migraine Nontoxic uninodular goiter LEFT PSH: PAST SURGICAL HISTORY Procedure Laterality Date DELIVERY ONLY 06-04-2001 , low cervical LAPAROSCOPY SURG CHOLECYSTECTOMY 2006 Cholecystectomy, lap LIG/TRNSXJ FLP TUBE ABDL/VAG APPR UNI/BI SEPTEMBER 2001 TOTAL THYROID LOBECTOMY UNI W/WO ISTHMUSECTOMY 06/11/07 LEFT Medications: Current Outpatient Medications on File Prior to Visit Medication Sig sumatriptan succinate(IMITREX 50 MG TAB) Use as directed as needed. buPROPion XL (WELLBUTRIN XL) 150 mg 24 hr tablet Take 150 mg by mouth twice daily. topiramate (TOPAMAX) 100 mg tablet Take 100 mg by mouth once daily. omeprazole (PRILOSEC) 40 mg capsule Take 40 mg by mouth once daily. cyclobenzaprine (FLEXERIL) 10 mg tablet Take 10 mg by mouth three times daily as needed. POLYETHYLENE GLYCOL 3350 (MIRALAX ORAL) Take by mouth once daily. INDERAL LA 120 MG 24 HR CAP Take one(1) tablet daily. No current facility-administered medications on file prior to visit. All: ALLERGIES Allergen Reactions Nsaids (Non-Steroid* Unknown Sulfamethoxazole Rash, Unknown Penicillin G Rash SH: Social History Tobacco Use Smoking status: Never Smokeless tobacco: Never Substance Use Topics Alcohol use: No Drug use: No FH: Pertinent history above; otherwise, non-contributory REVIEW OF SYSTEMS: GENERAL: Well-appearing, no malaise or fevers Dyspnea:No. Dysphagia:Yes. Pressure symptoms:No. PHYSICAL EXAM: On physical exam, Angela Bui is well appearing, alert, and oriented and appears euthyroid. On inspection, the skin over the anterior neck is smooth, no mass is visualized. Palpation revealed no thyroid enlargement. No lymphadenopathy was palpated on either side of the neck. ULTRASOUND EXAMINATION: Ultrasound examination was performed in the office today. This demonstrated 2 cystic nodules involving the right thyroid lobe. The largest nodule measured 1.96 cm. There was surgical absence of the left thyroid lobe. No worrisome lymphadenopathy was appreciated in either bilateral central neck or lateral jugular chain compartments. A fine needle aspiration biopsy not performed. LABS: No results found for: TSH No results found for: CA ASSESSMENT: In summary, Angela Bui has Multinodular goiter with small cystic nodules. PLAN: My recommendation is to monitor the patient. She agrees. Her concern was for her dysphagia and has an appointment with her bariatrics team. I appreciate being involved in the care of your patient, and please feel free to contact me should you have additional questions. I spent a total of 30 minutes on the date of the service which included preparing to see the patient, [id number] patient care, completing clinical documentation, obtaining and/or reviewing separately obtained history, performing a medically appropriate examination, counseling and educating the patient/family/caregiver, communicating with other HCPs (not separately reported), independently interpreting results (not separately reported), communicating results to the patient/family/caregiver, and care coordination (not separately reported). Sincerely, Evangelina Saeed MD 03/13/2022 CC: Corey Harding [id number] [facility] [id number] documented in this encounter [facility] Instructions 03-13-2022 Patient Instructions Note Date & Type Note Facility 03-13-2022 Instructions Erica Calderon Ma - 03/13/2022 11:10 AM EST Thank you for choosing the [facility] Department of Endocrinology, Diabetes and Metabolism. Did you know that you need to call 48 hours in advance of your scheduled visit, if you are unable to make your appointment? The Endocrinology and Metabolism [place] thanks you for your commitment, because patients not showing to their appointment results in a lost opportunity for patients to receive [facility] health care at the [facility]. To Cancel an appointment, please choose one of the following: - Call the Appointment Call Center at [phone] - From [employer], Go to Appointments - Cancel Appts If cancelling, consider your need to reschedule to prevent further delays in your care. To Schedule an appointment, please choose one of the following: - Call the Appointment Call Center at [phone] - From [employer], Go to Appointments - Request an Appt documented in this encounter [facility] Note 03-08-2022 Telephone Encounter - Corey Harding MD - 03/08/2022 5:23 PM ESTTelephone Encounter - Nany Garay - 03/06/2022 9:07 AM EST Note Date & Type Note Facility 03-08-2022 Miscellaneous Notes Formattin g of this note might be different from the original. 01/2022: TSH: 0.62 Corey Harding MD Uploaded labs from [facility] received on 02/21/2022 scanned into chart for review TSH results Nany Garay [employer] [facility] documented in this encounter [facility] Note 03-05-2022 Telephone Encounter - Kaylee Jiang - 03/05/2022 1:59 PM EST Note Date & Type Note Facility 03-05-2022 Miscellaneous Notes Formattin g of this note is different from the original. 03/05/2022-INTAKE COMPLETED- US COMPLETED LOCALLY-TSH COMPLETED LOCALLY-REQUESTED SLIDES FROM FNA'S AND SURGERY AND IMAGES FROM [facility]. ENDOCRINE SURGERY PATIENT WORKSHEET Initial Call Date: March 05, 2022 Reason for Consult/ Referral: Thyroid Nodule PATIENT DEMOGRAPHICS Name: Angela Bui [facility]#: [id number] : 1975 AGE: [age] year old Contact Numbers: Home: (home) Work: There is no work phone number on file. PATIENT PHYSICIAN INFORMATION Referring Doctor: Address: Phone: Department Mgr: Address: Phone: PCP: Luciano Oleary MD [address] [place] [id number] PAST TREATMENT Office notes: SEE EPIC Medications: NONE THAT APPLY Pre-Visit Testing STUDY/TEST DATE ORDERED/REQUESTED DATE RECEIVED/COMPLETED ENTIRE PANEL TSH COMPLETED LOCALLY-SCANNED INTO [facility] FREE T4 FREE T3 Imaging Reports: SEE [facility] CD of Images: SEE EPIC FNA: yes: 01/09,05/12 FNA Slides: Slides requested from outside facility (Date received: ) Has the patient ever had thyroid or parathyroid surgery before: Yes: Thyroid (Date: ? 2007) Operative Reports: SEE [facility] Pathology Reports: SEE EPIC documented in this encounter [facility] Progress note 02-08-2022 Note Date & Type Note Facility 02-08-2022 Note HNO ID: [id number] Author: Corey Harding MD Service: ? Author Type: Physician Type: Progress Notes Filed: 02/08/2022 2:11 PM Note Text: Endocrinology Initial Thyroid Assessment Angela Bui, virtual visit is here for a consultation upon the request of PCP regarding: thyroid nodule Patient consented to the Visit Name and confirmed My final recommendations will be communicated back by way of shared medical record or by US mail. PCP is Luciano Oleary MD, MD Luciano Oleary MD [address] [place] [address] History of Present Illness Angela Bui is a 46 year old female with PMH of Thyroid nodules s/p left lobectomy 1999 (benign), left vocal cord paralysis, right thyroid nodules, Obesity s/p Gastric bypass in 2018, Hx of GERD and Migraines, visit for evaluation of right thyroid nodules. Hx of left lobectomy in 1999 - benign Has been monitored for the right sided nodules since then Right sided nodule measuring 6 mm in 01/2014, 1.9 x 1.6 x 1 cm in 11/2020 and 2.2 x 1.8 x 1.4 cm in 11/2021 FNA of right upper and mid nodules in 12/2020 benign FNA of 2.2 cm right nodule in 04/2021 benign (drained then as well) Seems to grow in cystic component Was told she has left vocal cord paralysis recently She is not on LT4 Notes her voice is changing - comes and goes Has been like this for several years now Started after her 1st surgery Notes difficulty swallowing since 1 month ago to certain foods Feels it gets stuck Feels SOB and gasping for air No reflux since her bypass surgery in 2019 Lost around 115 lbs Had an EGD prior to her bypass surgery Patient is taking levothyroxine? No History of CT scan or vascular procedure with intravenous contrast within the last 4 months? no History of ionizing radiation to the head, neck or chest? no Intake of iodine/kelp/seaweed: no Herrin: no Steroids: no Warfarin: no Amiodarone: no Past History, Medications, Allergies PAST MEDICAL HISTORY Diagnosis Date Adjustment disorder with depressed mood Migraine Nontoxic uninodular goiter LEFT PAST SURGICAL HISTORY Procedure Laterality Date DELIVERY ONLY 06-04-2001 , low cervical LAPAROSCOPIC CHOLEYCYSTECTOMY 2005 Cholecystectomy, lap LIGATE FALLOPIAN TUBE SEPTEMBER 2001 THYROID LOBECTOMY,UNILAT 06/11/07 LEFT Current Outpatient Medications Medication Sig Dispense Refill buPROPion XL (WELLBUTRIN XL) 150 mg 24 hr tablet Take 150 mg by mouth twice daily. topiramate (TOPAMAX) 100 mg tablet Take 100 mg by mouth once daily. Omeprazole (PRILOSEC) 40 mg capsule Take 40 mg by mouth once daily. cyclobenzaprine (FLEXERIL) 10 mg tablet Take 10 mg by mouth three times daily as needed. POLYETHYLENE GLYCOL 3350 (MIRALAX ORAL) Take by mouth once daily. sumatriptan succinate(IMITREX 50 MG TAB) Use as directed as needed. 0 INDERAL LA 120 MG 24 HR CAP Take one(1) tablet daily. 0 No current facility-administered medications for this visit. ALLERGIES Allergen Reactions Penicillin G Rash FAMILY HISTORY Problem Relation Age of Onset Hypertension Mother Stroke Father Diabetes Father Breast Cancer Maternal Grandmother Hypertension Maternal Grandfather Diabetes Paternal Grandfather Diabetes Sister Social History Tobacco Use Smoking status: Never Smokeless tobacco: Never Substance Use Topics Alcohol use: No Drug use: No Review of Systems Answers submitted by the patient for this visit: Endocrine Review of Systems (Submitted on 02/07/2022) Fatigue: No Night Sweats: No Recent Unintentional Weight Change: No Skin Color Changes: No Post-Nasal Drip: No Thyroid Pain (lower neck): Yes Trouble Swallowing: Yes Vision Disturbance: No Chest Pain: No Leg Swelling: No Blood Clots?: No Leg Pain while walking?: No Difficulty Breathing?: No Heartburn: No Nausea: No Vomiting?: No Diarrhea: No Constipation: No Abdominal Pain: No Bone Pain?: No Muscle Aches: No Muscle Weakness: No Joint Pain or Stiffness: No Headaches: Yes Dizziness: No Numbness?: No Urgency to Urinate?: Yes Increased Urination?: Yes Slow or Small Urine Stream?: No Are your menstrual cycles regular?: No Are your menstrual cycles irregular?: No Have your menstrual cycles stopped?: Yes Flushing?: No Hot Flashes?: No Increased Thirst: No Change in Body Hair?: No Cold Intolerance: No Heat Intolerance?: No Physical examination GENERAL: Well nourished, well hydrated, in no distress and oriented x 3 COMMUNICATION: Hearing: normal; VOICE: normal EYES: no thyroid eye signs, Fundi normal, cornea normal and EOMI NECK: no visible nodules or goiter LUNGS: no audible wheezing or respiratory distress NEURO: normal strength and no tremor SKIN: No rash or visible wound. ENDOCRINE: No cushingoid or acromegalic features Previous Laboratory Results 05/2004: TSH: 0.58 Cytology 01/20 (more content not included)... [facility] History of Present illness Narrative 02-08-2022 Corey Harding MD - 02/08/2022 1:09 PM EDT Note Date & Type Note Facility 02-08-2022 History of Presen t illness Narrative Images from the original note were not included. Endocrinology Initial Thyroid Assessment Angela Bui, virtual visit is here for a consultation upon the request of PCP regarding: thyroid nodule Patient consented to the Visit Name and confirmed My final recommendations will be communicated back by way of shared medical record or by US mail. PCP is Luciano Oleary MD, MD Luciano Oleary MD [address] [place] [address] History of Present Illness Angela Bui is a 46 year old female with PMH of Thyroid nodules s/p left lobectomy 1999 (benign), left vocal cord paralysis, right thyroid nodules, Obesity s/p Gastric bypass in 2019, Hx of GERD and Migraines, visit for evaluation of right thyroid nodules. Hx of left lobectomy in 1999 - benign Has been monitored for the right sided nodules since then Right sided nodule measuring 6 mm in 01/2014, 1.9 x 1.6 x 1 cm in 11/2020 and 2.2 x 1.8 x 1.4 cm in 11/2021 FNA of right upper and mid nodules in 12/2020 benign FNA of 2.2 cm right nodule in 04/2021 benign (drained then as well) Seems to grow in cystic component Was told she has left vocal cord paralysis recently She is not on LT4 Notes her voice is changing - comes and goes Has been like this for several years now Started after her 1st surgery Notes difficulty swallowing since 1 month ago to certain foods Feels it gets stuck Feels SOB and gasping for air No reflux since her bypass surgery in 2019 Lost around 115 lbs Had an EGD prior to her bypass surgery Patient is taking levothyroxine? No History of CT scan or vascular procedure with intravenous contrast within the last 4 months? no History of ionizing radiation to the head, neck or chest? no Intake of iodine/kelp/seaweed: no Herrin: no Steroids: no Warfarin: no Amiodarone: no Past History, Medications, Allergies PAST MEDICAL HISTORY Diagnosis Date Adjustment disorder with depressed mood Migraine Nontoxic uninodular goiter LEFT PAST SURGICAL HISTORY Procedure Laterality Date DELIVERY ONLY 06-04-2001 , low cervical LAPAROSCOPIC CHOLEYCYSTECTOMY 2005 Cholecystectomy, lap LIGATE FALLOPIAN TUBE SEPTEMBER 2001 THYROID LOBECTOMY,UNILAT 06/11/07 LEFT Current Outpatient Medications Medication Sig Dispense Refill buPROPion XL (WELLBUTRIN XL) 150 mg 24 hr tablet Take 150 mg by mouth twice daily. topiramate (TOPAMAX) 100 mg tablet Take 100 mg by mouth once daily. Omeprazole (PRILOSEC) 40 mg capsule Take 40 mg by mouth once daily. cyclobenzaprine (FLEXERIL) 10 mg tablet Take 10 mg by mouth three times daily as needed. POLYETHYLENE GLYCOL 3350 (MIRALAX ORAL) Take by mouth once daily. sumatriptan succinate(IMITREX 50 MG TAB) Use as directed as needed. 0 INDERAL LA 120 MG 24 HR CAP Take one(1) tablet daily. 0 No current facility-administered medications for this visit. ALLERGIES Allergen Reactions Penicillin G Rash FAMILY HISTORY Problem Relation Age of Onset Hypertension Mother Stroke Father Diabetes Father Breast Cancer Maternal Grandmother Hypertension Maternal Grandfather Diabetes Paternal Grandfather Diabetes Sister Social History Tobacco Use Smoking status: Never Smokeless tobacco: Never Substance Use Topics Alcohol use: No Drug use: No Review of Systems Answers submitted by the patient for this visit: Endocrine Review of Systems (Submitted on 02/07/2022) Fatigue: No Night Sweats: No Recent Unintentional Weight Change: No Skin Color Changes: No Post-Nasal Drip: No Thyroid Pain (lower neck): Yes Trouble Swallowing: Yes Vision Disturbance: No Chest Pain: No Leg Swelling: No Blood Clots?: No Leg Pain while walking?: No Difficulty Breathing?: No Heartburn: No Nausea: No Vomiting?: No Diarrhea: No Constipation: No Abdominal Pain: No Bone Pain?: No Muscle Aches: No Muscle Weakness: No Joint Pain or Stiffness: No Headaches: Yes Dizziness: No Numbness?: No Urgency to Urinate?: Yes Increased Urination?: Yes Slow or Small Urine Stream?: No Are your menstrual cycles regular?: No Are your menstrual cycles irregular?: No Have your menstrual cycles stopped?: Yes Flushing?: No Hot Flashes?: No Increased Thirst: No Change in Body Hair?: No Cold Intolerance: No Heat Intolerance?: No Physical examination GENERAL: Well nourished, well hydrated, in no distress and oriented x 3 COMMUNICATION: Hearing: normal; VOICE: normal EYES: no thyroid eye signs, Fundi normal, cornea normal and EOMI NECK: no visible nodules or goiter LUNGS: no audible wheezing or respiratory distress NEURO: normal strength and no tremor SKIN: No rash or visible wound. ENDOCRINE: No cushingoid or acromegalic features Previous Laboratory Results 05/2004: TSH: 0.58 Cytology 01/2014: 04/2021: 12/2020: Imaging Thyroid US 11/2020: Thyroid US 11/2021: Impression/Recommendations Angela Bui is a 46 year old female with PMH of Thyroid nodules s/p left lobectomy 1999 (benign), left vocal cord paralysis, right thyroid nodules, Obesity s/p Gastric bypass in 2019, Hx of GERD and Migraines, visit for evaluation of right thyroid nodules. Right Thyroid Nodules with dominant 2.2 cm complex nodule and Hx of left lobectomy (1999 - benign) and left vocal cord paralysis: -- Hx of left lobectomy in 1999 - benign -- Has been monitored for the right sided nodules since then -- Right sided nodule measuring 6 mm in 01/2014, 1.9 x 1.6 x 1 cm in 11/2020 and 2.2 x 1.8 x 1.4 cm in 11/2021 -- FNA of right upper and mid nodules in 12/2020 benign -- FNA of 2.2 cm right nodule in 04/2021 benign (drained then as well) -- Seems to grow in cystic component -- Was told she has left vocal cord paralysis recently -- She is not on LT4 -- Notes her voice is changing - comes and goes -- Has been like this for several years now -- Started after her lobectomy in 1999 -- Notes difficulty swallowing since 1 month ago to certain foods -- No reflux since her bypass surgery in 2018 -- Had an EGD prior to her bypass surgery -- Discussed treatment options including completion thyroidectomy and RFA -- Discussed RFA and risk of hypothyroidism after the procedure -- She is interested to proceed with surgery -- Advised her dysphagia is likely unrelated to her thyroid nodules -- Referred to GI for further evaluation -- Also advised can refer to voice PT to help with the hoarseness Plan: -- Referral to GI -- Will check TSH -- She will bring a CD with images of her latest thyroid US -- Referral to Dr. Saeed for RFA of right 2.2 cm thyroid nodule -- Will check TSH 4 weeks after RFA as well The patient will follow up in 6 months. I spent a total of 60 minutes on the date of the service which included preparing to see the patient, completing clinical documentation, obtaining and/or reviewing separately obtained history, performing a medically appropriate examination, counseling and educating the patient/family/caregiver, ordering medications, tests, or procedures, and communicating with other HCPs (not separately reported). Corey Harding MD documented in this encounter [facility] Evaluation note Note Date & Type Note Facility documented in this encounter [facility] Evaluation note Note Date & Type Note Facility documented in this encounter [facility] Evaluation note Note Date & Type Note Facility documented in this encounter [facility] Summary Purpose Family History No Family History Records FoundNo Family History Records FoundNo Family History Records FoundNo Family History Records FoundNo Family History Records FoundNo Family History Records FoundNo Family History Records Found Advance Directives No Advanced Directives Records FoundDocuments on File Type Date Recorded Patient Hand Glove Cleaner Expl anation Advance Directives and Living Will Power of Mail Handler Equipment Operator Latest Code Status on File Code Status Date Activated Date Inactivated Comments Full Code 05/05/2018 7:59 AM 05/05/2018 11:26 AM Latest Code Status on File Code Status Date Activated Date Inactivated Comments Full Code 12/29/2018 8:12 AM Full Code 12/28/2018 12:12 PM 12/29/2018 8:12 AM Full Code 12/28/2018 5:28 AM 12/28/2018 12:01 PM Full Code 05/05/2018 7:59 AM 05/05/2018 11:26 AM Latest Code Status on File Code Status Date Activated Date Inactivated Comments Full Code 12/29/2018 8:12 AM 12/30/2018 4:37 PM Documents on File Type Date Recorded Patient Hand Glove Cleaner Expl anation ACP-Advance Directive ACP-Power of Mail Handler Equipment Operator Discharge Instructions * Instructions* Sofy Berman RD, LD - 12/28/2018 [facility] - Surgery [facility] Physicians Surgery Patient Name: Angela Bui Date: @TODAY@ DISCHARGE INSTRUCTIONS Thank you very much for allowing me to participate in your care, it is truly a privilege. Below please see discharge orders that will help you during your recovery. Please do not hesitate to call theoffice during the day at [phone] for any questions. After hours, the same number will allow you to reach the on-call surgeon. Please remove the Steri-Strips 5 days after surgery. You may be instructed by nursing staff to either leave them on until you see Dr. Romero or they will fall off on their own. Neither is true. Please remove the Steri-Strips as instructed 5 days after your date of surgery. This includes any clear bandages and gauze placed in the navel, if applicable. If you have been provided with an abdominal binder, this is for your comfort. Please take this off in order to shower and use it as needed for your comfort. There is no designated time frame with which you should wear the binder. Again, it is only for your comfort and symptom relief. Please shower the day after surgery. Soap and water is adequate. Keep the incisions clean and dry. No lotions or ointments until you are seen in the office. Surgery can hurt! Please make every effort to take the pain medicine as instructed to help reduce your discomfort. I usually recommend that you take pain medicine when you wake up in the morning and before you go to sleep. Schedule the rest of the day in order to not interfere with medication dosages as prescribed. If you feel that the medicine is not working, please call the office. Should you have nausea after surgery (the most common complaint after surgery) you will be providedwith a prescription for Phenergan. Please utilize this should you have any postoperative nausea or vomiting. If you feel that the medicine is not working, please call the office. For any emergencies, please dial 911. Thank you again for allowing me to participate in your care, and get well soon! [facility] INJECTION MOLDER DISCHARGE INSTRUCTIONS The following information was reviewed with the patient, the patient was given a hard copy of theseinstructions by the Bariatric risk compliance analyst, and the instructions were signed by the patient. Post-Operative Patient Instructions Laparoscopic Shayy-en-Y Gastric Bypass Procedure 1. You may shower at any point, just blot the incisions dry when you are done. Use only soap and water on the wounds, do not use ointments, lotions, powders or antibiotic ointment. Use elastic binderas you desire. 2. Leave the steri-strips in place (white paper tape over the incisions). They may come off on their own, do not replace if they come off. The stitches are buried under the skin and will dissolve on their own. Cover the left lower laparoscopic incision with dry gauze until it is no longer draining.Change the dressing daily. 3. If incisions begin to look infected (swelling, redness, drainage, pain) please notify manager facility. 4. Take your temperature twice a day for the first post-operative week. Call if temperature is >101 F. 5. If you are discharged home with a drain, it will be removed at your first office visit. Daily dressing changes and twice daily emptying of the grenade is required at home. Milking or stripping the tubing should be done 2-3 times daily. You will be given the supplies needed to perform these tasks. 6. If you have a drain, it is also important to observe the color of the drainage in the grenade. The color will globe changer time. Normal color changes include Red ? [place] ? [place]/Yellow ? [place] and will always be clear in appearance. Abnormal color changes include a caramel color ([place] and cloudy), a brown or black appearance or a color change matching the colorof what you just drank. (mix up your flavors) An abnormal color change requires an immediate phone call to the Bariatric Care Center. 7. Resume your home medications as directed by your surgeon and your nurse piano case maker. Make an appointment with your prescribing physician if you are taking medication for your blood pressure or diabetes. You will need close follow-up regarding your medical conditions, as you will soon be off many of these medications. 8. No aspirin or aspirin containing medications should be taken at all. 9. Do not take multiple medications at one time. Take 2-3 at a time, wait 20-30 minutes before taking additional medications. 10. Do not take any time release, control release, or extended release medications. This includes any enteric coated medications. Your anatomy has been altered and you no longer have the ability to absorb these medications efficiently. If you have been prescribed any of these types of medications you should contact the prescribing physician for direction. It will not harm you to take these medications in the interim, however, absorption is questionable. 11. Follow our food guidelines closely. Remember, clear liquids for the first two days after surgery. No sugar, caffeine or carbonation. Your fluid requirement is 64 oz. per day. You may advance to full liquids on post-op day three. This is in addition to the clear liquid diet. 12. Do not take your calcium, B12, or multivitamin with iron until after your one week appointment. 13. No alcoholic beverages at all during the first 18 months post-op. 14. No lifting, pushing, or pulling over 15 lbs. for one month. You may go up and down stairs. No driving for 1 week after surgery. Do not drive if you are taking prescription pain medication. 15. Walking as part of your daily activities is required immediately. Walking extensively for exercise is not permitted until you are cleared by your surgeon (usually 4-6 weeks after surgery). 16. You will be able to begin exercising in 4- 6 weeks, but must be cleared by your surgeon at yourone month appointment. 17. Use your incentive spirometer from the hospital for the first post-operative week as instructed, 10 times every other hour while awake. 18. Prior to returning to work, you will be seen, evaluated and cleared by your surgeon. 19.Remember, you will have pain!!! Take your pain medicine so that you are comfortable enough to cough, deep breath and walk. It is not unusual for lower left abdominal pain to return 10-14 days after surgery. Ice to the area can reduce the discomfort. 20. Fatigue is quite common in the first post- operative week. Rest appropriately in response to this fatigue. Remember that mobility after surgery is very important. You must not remain in a sittingor recumbent position for long periods of time. 21. If you have obstructive sleep apnea and have been prescribed a CPAP machine, you must continue to use this device after surgery. 22. Please call the [facility] at [phone] if you have any questions or concerns during business hours: Mon.-Fri. 8:00 a.m. - 4:30 p.m. The answering service may be called during non-business hours at [phone] 23. If you have a medical emergency, call 911 or go to the closest hospital emergency room. 24. Call your surgeon for problems, or if you have any of the following: * Temperature>101 F. (Take your temperature twice a day in the morning and evening until your first office visit) * Redness, pain, swelling or drainage from any of the incisions * Inability to pass urine or have bowel movements * ANY shortness of breath, chest pain, leg swelling or leg pain (in one or both of your legs) * Rapid heart rate * Nausea and/or vomiting with inability to keep liquids down * Bleeding from your rectum * Frequently feeling dizzy or light headed, inability to walk * Abnormal drain color appearance if you have a drain 25. Your one week and one month follow- up office visits with your surgeon at the [facility] are located in the discharge folder. [facility] DIETITIAN DISCHARGE INSTRUCTIONS The following information was reviewed with the patient, and the patient was given a hard copy of these instructions by the Bariatric Registered Dietitian. Overview of Post-Op Diet Protocol for Patients Following Gastric Bypass or Sleeve Gastrectomy Your dietitian will meet with you in the hospital before you are discharged to review the diet in more details and to answer any questions you may have, Day of Surgery (after you wake up from surgery) Nothing to eat or drink Post-op Day 1 If you are having an UGI xray, you will begin your clear liquids after you are notified that the results are back and you are cleared to begin If you are NOT having an UGI xray, you will begin your clear liquids as soon as your nurse notifiesyou that it is OK to start. Post-Op Day 2 Continue your bariatric clear liquid diet Post-op Day 3 Begin full liquid diet and continue until after your 1 week post-op visit You will continue to follow the full liquid diet until after you meet with your dietitian during your 1 week post-op office visit. The next diet phases will be reviewed and discussed with your duringthat visit, If you have questions about your diet(s), please contact the Bariatric Dietitians at [phone]. [address], LD [facility] DISCHARGE INSTRUCTIONS The following information was reviewed with the patient, and the patient was given a hard copy of these instructions by the Bariatric Registered Dietitian. Bariatric Dietitian Discharge instructions Please follow these instructions until your 1 week office visit General Guidelines: 1. Divide food into three (3) small meals and three (3) small snacks. 2. Eat the food Very slowly, using smaller size utensils. If you feel full, STOP eating. 3. Drink liquids 30 minutes before or 30 minutes after meals and snacks. 4.Do not use a straw. 5. Start tracking your protein intake - 65-75 grams daily should be your total. Foods Allowed In addition to all foods permitted on the clear liequid diet, you may have: 1.Diluted fruit juices that are pulp-free. 2. Low-fat, strained cream soups. 3. Sugar-free strained creamed soups 4. Sugar-free pudding with protein powder 5. Sugar substitutes 6. Thin cooked cereals 7. Low-sugar yogurt without fruit 8. Skim milk or 1% milk 9. Lactaid, soy or almond milk 10. Low-fat or nonfat cottage cheese )mashed with a fork and then chewed thoroughly before swallowing) 11. Protein powder 12. High protein, low-sugar beverages and shakes (see list in Patient Education Manual) Reviewed by Sofy DIAZ documented in this encounter* Instructions* Tiffanie Ballard RN - 12/22/2018 FOLLOW ' DIET AND MEDICATION INSTRUCTIONS GIVEN TO YOU IN BARIATRIC CLASS. SHOWER USING HIBICLENS OR DIRECTED BY YOUR SURGEON THE MORNING OF SURGERY. Please bring your CPAP/BiPAP device, mask, and equipment with you on the day of surgery. Do not bring water for your machine, it will be provided. IF YOU HAVE SPECIFIC QUESTIONS, PLEASE CALL THE BARIATRIC CENTER. * Attachments The following attachments cannot be sent through Care Everywhere. * Gastric Bypass: Laparoscopic Shayy-en-Y: Pre-op (Faroese) documented in this encounter History of Present Illness * Katarina Cheek RN - 12/29/2018 2:42 PM EDT Bariatric risk compliance analyst Note POD #1 - PM Patient s/p LRYGB Patient doing well - sitting up in bed, no complaints Tolerating liquids: Yes Nausea/vomiting: No Dysphagia: No Adequate Urine Output: Yes EDY drain: No If yes - drainage color: na Bowel movement: No If yes - description: na Patient on room air: Yes Ambulating:Yes Using incentive spirometer: Yes Pain Control: On-Q Pain Delivery System: Absent Current treatment: Percocet Pain is well controlled with current treatment. Interventions: Yes, small amount of bleeding from umbilical incision, cleaned and covered with gauze. Continue to monitor * Katarina Cheek RN - 12/29/2018 9:15 AM EDT Bariatric risk compliance analyst Note - POD #1 - AM Patient s/p LRYGB UGI done Extravasation: No Delayed gastric emptying: No Begin Bariatric Clear Liquid Diet: Yes Diet protocol reviewed with patient: Yes height is 5' 4 (1.626 m) and weight is 287 lb (130.2 kg). Her temperature is 96.9 F (36.1 C). Her blood pressure is 114/66 and her pulse is 70. Her respiration is 14 and oxygen saturation is 95%. Total output last 24 hours: In: 1978 Out: 1000 [Urine:1000] EDY drain: No If yes - drainage color: na Abdomen soft, nontender Bowel sounds:normal Laparoscopy incisions: clean, dry and intact Steri-strips intact: Yes LLQ Incision Sutures: na LLQ incision packed: Yes Instructed patient to ambulate and use incentive spirometer. Monitor tolerance to liquids Pain Control: On-Q Pain Delivery System: Absent Pain is well controlled with current treatment. Current treatment: IV MS and oral pain medication of Percocet initiated Interventions: Yes, packing changed to LLQ lap incision * Luciano De Souza RCP - 12/29/2018 8:54 AM EDT Patient Evaluation Form The patient is currently receiving PROVENTIL Q4 WA Points 0 1 2 3 4 Points Totals Pulmonary Status (-/+) History Smoking history < 20 pack years Smoking history > 20 pack years Pulmonary Disorder (acute or chronic) Severe or Chronic with Exacerbation 0 Surgical Status No Surgery Trach PEG General Surgery Lower Abdominal Thoracic or Upper Abdominal Thoracic with Pulmonary Disorder 2 Chest X-ray Clear None Ordered Chronic Changes CXR results Pending Infiltrates, atelectasis, pleural effusion, or edema Infiltrates in more than one lobe Infiltrate + Atelectasis, &/or pleural effusion 0 Respiratory Pattern Regular, RR = 12-20 Increased, RR = 21-25 DELEON, irregular, or RR = 26-30 Decreased FEV1 or RR = 31-35 Severe SOB, used of of accessory muscles, or RR = > 35 0 Mental Status Alert, oriented, cooperative Confused, but follows commands Lethargic or un-able to follow commands Obtunded Comatose 0 Breath Sounds Clear to auscultation Decreased unilaterally or in bases only Decreased bilaterally Crackles or intermittent wheezes Wheezes 1 Cough Strong, spontaneous, & nonproductive Strong, spontaneous, & productive Weak, nonproductive Weak, productive or with wheezes No spontaneous cough or may require suctioning 0 Level of Activity Ambulatory Ambulatory with Assist Non-ambulatroy Paraplegic Quadriplegic 1 Triage 1 > 20 pts Triage 2 16-20 pts Triage 3 11- 15 pts Triage 4 6 - 10 pts Triage 5 0 - 5 pts TOTAL POINTS = 4 Triage Score = 5 Changing Therapy to PROVENTIL PRN * Annie Gauthier - 12/29/2018 7:43 AM EDT Preliminary negative * Bhargav Castro MD - 12/29/2018 7:31 AM EDT [facility] - Surgery [facility] Patient Name: Angela Bui Date: 12/29/2018 [facility]-General Surgery/Bariatric Progress Note Subjective: The patient is doing well, postoperative day #1 from LRYGB. No vomiting, or adverse events overnight. Had some nausea controlled by medications Scheduled Meds: Current Facility-Administered Medications: metoprolol (LOPRESSOR) injection 2.5 mg, 2.5 mg, Intravenous, Q6H, Alen Rodriguez MD, 2.5 mg at 12/29/18 0607 metoprolol (LOPRESSOR) injection 2.5 mg, 2.5 mg, Intravenous, Q6H PRN, Alen Rodriguez MD hydrALAZINE (APRESOLINE) injection 10 mg, 10 mg, Intravenous, Q4H PRN, Alen Rodriguez MD sodium chloride flush 0.9 % injection 10 mL, 10 mL, Intravenous, 2 times per day, Alen Rodriguez MD, 10 mL at 12/28/181958 sodium chloride flush 0.9 % injection 10 mL, 10 mL, Intravenous, PRN, Alen Rodriguez MD morphine sulfate (PF) injection 2 mg, 2 mg, Intravenous, Q2H PRN OR morphine sulfate (PF) injection 4 mg, 4 mg, Intravenous, Q2H PRN, Alen Rodriguez MD, 4 mg at 12/29/18 0405 ondansetron (ZOFRAN) injection 4 mg, 4 mg, Intravenous, Q6H PRN, Alen Rodriguez MD, 4 mg at 12/29/18 0405 famotidine (PEPCID) injection 20 mg, 20 mg, Intravenous, BID, Alen Rodriguez MD, 20 mg at 12/28/181956 albuterol (PROVENTIL) nebulizer solution 2.5 mg, 2.5 mg, Nebulization, Q4H WA, Alen Rodriguez MD, 2.5 mg at 12/28/18 222 ketorolac (TORADOL) injection 30 mg, 30 mg, Intravenous, Q6H, Alen Rodriguez MD, 30 mg at 12/29/18 06 heparin (porcine) injection 5,000 Units, 5,000 Units, Subcutaneous, 3 times per day, Alen Rodriguez MD, 5,000 Units at 12/29/18 0603 potassium chloride 20 mEq in sodium chloride 0.45 % 1,000 mL infusion, , Intravenous, Continuous, John Romero MD, Last Rate: 100 mL/hr at 12/29/18 0138 insulin lispro (HUMALOG) injection vial 0-12 Units, 0-12 Units, Subcutaneous, TID WC, Alen Rodriguez MD, 2 Units at 12/28/18 1608 insulin lispro (HUMALOG) injection vial 0-6 Units, 0-6 Units, Subcutaneous, Nightly, Alen Rodriguez MD glucose (GLUTOSE) 40 % oral gel 15 g, 15 g, Oral, PRN, Alen Rodriguez MD dextrose 50 % IV solution, 12.5 g, Intravenous, PRN, Alen Rodriguez MD glucagon (rDNA) injection 1 mg, 1 mg, Intramuscular, PRN, Alen Rodriguez MD dextrose 5 % solution, 100 mL/hr, Intravenous, PRN, Alen Rodriguez MD promethazine (PHENERGAN) injection 12.5 mg, 12.5 mg, Intravenous, Q8H PRN, Alen Rodriguez MD, 12.5 mg at 12/29/18 0011 influenza quadrivalent split vaccine (FLUZONE;FLUARIX;FLULAVAL;AFLURIA) injection 0.5 mL, 0.5 mL, Intramuscular, Once, John Romero MD Continuous Infusions: IV infusion builder 100 mL/hr at 12/29/18 0138 dextrose PRN Meds:metoprolol, hydrALAZINE, sodium chloride flush, morphine OR morphine, ondansetron, glucose, dextrose, glucagon (rDNA), dextrose, promethazine Allergies Allergen Reactions Bactrim [Sulfamethoxazole-Trimethoprim] Itching and Rash Pcn [Penicillins] Rash Objective: Patient Vitals for the past 24 hrs: BP Temp Temp src Pulse Resp SpO2 12/29/18 0259 66 12/29/18 0246 119/73 95 F (35 C) Temporal 76 18 96 % 12/28/18 2300 86 12/28/18 2241 127/78 96.8 F (36 C) Temporal 79 18 95 % 12/28/18 1920 138/79 97.8 F (36.6 C) Temporal 82 18 93 % 12/28/18 1901 76 12/28/18 1550 127/81 97.3 F (36.3 C) Temporal 75 14 92 % 12/28/18 1532 16 96 % 12/28/18 1248 124/65 95.8 F (35.4 C) Temporal 67 16 96 % 12/28/18 1130 114/67 98 F (36.7 C) Temporal 75 16 96 % 12/28/18 1115 116/65 67 15 92 % 12/28/18 1106 92 % 12/28/18 1059 119/66 71 17 93 % 12/28/18 1045 128/71 66 17 96 % 12/28/18 1021 121/74 98.1 F (36.7 C) Temporal 77 17 96 % CBC with Differential: Lab Results Component Value Date WBC 15.8 12/29/2018 RBC 4.02 12/29/2018 HGB 11.1 12/29/2018 HCT 32.7 12/29/2018 PLT 254 12/29/2018 MCV 81.3 12/29/2018 MCH 27.6 12/29/2018 MCHC 34.0 12/29/2018 RDW 15.4 12/29/2018 LYMPHOPCT 9.9 12/29/2018 MONOPCT 6.3 12/29/2018 BASOPCT 0.4 12/29/2018 MONOSABS 1.0 12/29/2018 LYMPHSABS 1.6 12/29/2018 EOSABS 0.0 12/29/2018 BASOSABS 0.1 12/29/2018 CMP: Lab Results Component Value Date NA 137 12/29/2018 K 4.4 12/29/2018 CL 104 12/29/2018 CO2 24 12/29/2018 BUN 13 12/29/2018 CREATININE 0.70 12/29/2018 GLUCOSE 127 12/29/2018 PROT 7.4 05/04/2018 LABALBU 4.3 12/03/2018 CALCIUM 8.4 12/29/2018 BILITOT 0.3 05/04/2018 ALKPHOS 76 05/04/2018 AST 31 05/04/2018 ALT 56 05/04/2018 Abdomen: The abdomen was soft and appropriately tender postoperative. Nondistended. Incisions c/d/I. Packing in place LLQ EDY drain is serosanguinous. Assessment/Plan: 1. Postoperative day #1, LRYGB 2. GI/DVT prophylaxis, continue SQ 3. UGI this AM 4. Increase activity 5. Trial gastric bypass clear liquid diet if no signs of extravasation or leak on UGI 6. Pulmonary toilet 7. Initiate home medications, and oral pain control medications 8. Change packing AM and PM Associated attestation - John Romero MD - 12/29/2018 2:13 PM EDT [facility] - Surgery Bariatric Care Center Patient Name: Angela Bui Date: 12/29/18 [facility]-General Surgery/Bariatric Progress Note Subjective: The patient is doing well, postoperative day #1 from LRYGB. No nausea, vomiting, or adverse events overnight. Scheduled Meds: famotidine 20 mg Oral BID sodium chloride flush 10 mL Intravenous 2 times per day ketorolac 30 mg Intravenous Q6H heparin (porcine) 5,000 Units Subcutaneous 3 times per day insulin lispro 0-12 Units Subcutaneous TID WC insulin lispro 0-6 Units Subcutaneous Nightly influenza virus vaccine 0.5 mL Intramuscular Once Continuous Infusions: IV infusion builder 75 mL/hr at 12/29/18 0851 dextrose PRN Meds:oxyCODONE-acetaminophen OR oxyCODONE-acetaminophen, albuterol, hydrALAZINE, sodium chloride flush, morphine OR morphine, ondansetron, glucose, dextrose, glucagon (rDNA), dextrose, promethazine Allergies Allergen Reactions Bactrim [Sulfamethoxazole-Trimethoprim] Itching and Rash Pcn [Penicillins] Rash Objective: Patient Vitals for the past 24 hrs: BP Temp Temp src Pulse Resp SpO2 12/29/18 1057 125/82 98.6 F (37 C) Temporal 76 18 94 % 12/29/18 0852 95 % 12/29/18 0830 114/66 96.9 F (36.1 C) 70 14 93 % 12/29/18 0259 66 12/29/18 0246 119/73 95 F (35 C) Temporal 76 18 96 % 12/28/18 2300 86 12/28/18 2241 127/78 96.8 F (36 C) Temporal 79 18 95 % 12/28/18 1920 138/79 97.8 F (36.6 C) Temporal 82 18 93 % 12/28/18 1901 76 12/28/18 1550 127/81 97.3 F (36.3 C) Temporal 75 14 92 % 12/28/18 1532 16 96 % Average, Min, and Max for last 24 hours Vitals: TEMPERATURE: Temp Av.1 F (36.2 C) Min: 95 F (35 C) Max: 98.6 F (37 C) RESPIRATIONS RANGE: Resp Av.6 Min: 14 Max: 18 PULSE RANGE: Pulse Av.2 Min: 66 Max: 86 BLOOD PRESSURE RANGE: Systolic (24hrs), Av , Min:114 , Max:138 ; Diastolic (24hrs), Av, Min:66, Max:82 PULSE OXIMETRY RANGE: SpO2 Av.3 % Min: 92 % Max: 96 % I/O last 3 completed shifts: In: 3080 [I.V.:3080] Out: 1030 [Urine:1000; Blood:30] CBC: Recent Labs 12/28/18 1033 12/29/18 0414 WBC -- 15.8* HGB 12.4 11.1* HCT 37.0 32.7* PLT -- 254 BMP: Recent Labs 12/28/18 1034 12/29/18 0414 NA 135 137 K 4.6 4.4 CL 100 104 CO2 22 24 BUN 9 13 CREATININE 0.56 0.70 GLUCOSE 208* 127* Abdomen: Bowel sounds were normal. The abdomen was soft and appropriately tender postoperative. Nondistended. Wounds are clean dry and intact. Assessment/Plan: Postoperative day #1, LRYGB GI/DVT prophylaxis, continue SQ heparin UGI normal, no signs of extravasation or leak Increase activity Trial gastric bypass clear liquid diet Pulmonary toilet Initiate home medications, and oral pain control medications Care was discussed with the resident on service as well as the bariatric nurse piano case maker. * Kandi Koroma RN - 12/29/2018 6:57 AM EDT Patient left via wheelchair for Radiology for UGI with transport. Sat 97% on RA. No acute distress noted. * Yuliet Villa RN - 12/28/2018 11:28 AM EDT SBAR faxed and report called to VENKATESH Gleason H6. Questions answered. Patient sleeping, appears comfortable, needs woken for pain assessment, states 6/10, falls back to sleep when not stimulated by RN. Not further medicating at this time d/t needs woken for pain assessment. Called sds and gave room number to real estate legal secretary. To send family to room to meet patient. Patient in for transport. documented in this encounter Assessments Diagnosis Morbid obesity with BMI of 45.0-49.9, adult (HCC)- Primary Post-op pain Other acute postoperative pain Diabetes (HCC) GERD (gastroesophageal reflux disease) Esophageal reflux Hepatic steatosis Other chronic nonalcoholic liver disease Hiatal hernia Diaphragmatic hernia without mention of obstruction or gangrene PETER on CPAP Obstructive sleep apnea (adult) (pediatric) High blood pressure Unspecified essential hypertension Morbid obesity (HCC) Morbid obesity Diagnosis Hypertension, unspecified type PETER on CPAP Obstructive sleep apnea (adult) (pediatric) Type 2 diabetes mellitus with complication, unspecified whether senior care insulin use (HCC) Gastroesophageal reflux disease, esophagitis presence not specified Diagnosis PETER on CPAP Obstructive sleep apnea (adult) (pediatric) Hypertension, unspecified type Screening for diabetes mellitus Prediabetes Other abnormal glucose Hospital Course Note Physician Discharge Summary Patient ID: Angela Bui [id number] 43 y.o. 1975 Admit date: 12/28/2018 Discharge date: 12/30/18 Admitting Physician: John Romero MD Discharge Physician: John Romero MD Admission Diagnoses: Morbid obesity (HCC) [E66.01] Morbid obesity (HCC) [E66.01] Discharge Diagnoses: Morbid obesity (HCC) [E66.01] Morbid obesity (HCC) [E66.01] Admission Condition: fair Discharged Condition: good Indication for Admission: Morbid obesity (HCC) [E66.01] Morbid obesity (HCC) [E66.01] Hospital Course: Pt taken to OR for LRYGB and tolerated procedure without any complications. Immediately post-op, pt was extubated and transferred to PACU in stable condition. After PACU criteria met and within 24 hrs of procedure, patient was transferred to floor. Throughout ranjana-operative course, there was monitoring of vital signs, urine output and clinical status of patient. Diet was subsequently advanced and by the day of discharge patient was ambulating, voiding and tolerating (more content not included)... Note OPERATIVE NOTE DATE OF : 12/28/2018 SURGEON: John Romero CHEMICAL CELL CHANGER: Alen Sapp MD PREOPERATIVE DIAGNOSIS: ? PETER ? DM ? HTN ? GERD ? Hiatal Hernia ? Hepatic Steatosis ? Morbid Obesity POSTOPERATIVE DIAGNOSIS: ? PETER ? DM ? HTN ? GERD ? Hiatal Hernia ? Hepatic Steatosis ? Morbid Obesity OPERATION: ? Laparoscopic Shayy-en-Y gastric bypass ? Laparoscopic Hiatal Hernia repair ? Laparoscopic Liver Biopsy ? Upper Gastrointestinal Endoscopy ANESTHESIA: General anesthesia ESTIMATED BLOOD LOSS: Minimal. COMPLICATIONS: None SPECIMENS: Liver Biopsy PREOPERATIVE MEDICATIONS: Ancef, Heparin HISTORY: The patient is a 43 y.o. year old female with history of morbid obesity and a BMI of Body mass index is 49.26 kg/m?.. CONSENT: The patient was seen and evaluated in the office setting where the procedure was explained to the patient and any questions were answered. An informed consent discussion was held between Dr. Romero and the patient. Viable alternatives to the proposed procedur (more content not included)... Procedure Findings Note OPERATIVE NOTE DATE OF : 12/28/2018 SURGEON: John Romero CHEMICAL CELL CHANGER: Alen Sapp MD PREOPERATIVE DIAGNOSIS: ? PETER ? DM ? HTN ? GERD ? Hiatal Hernia ? Hepatic Steatosis ? Morbid Obesity POSTOPERATIVE DIAGNOSIS: ? PETER ? DM ? HTN ? GERD ? Hiatal Hernia ? Hepatic Steatosis ? Morbid Obesity OPERATION: ? Laparoscopic Shayy-en-Y gastric bypass ? Laparoscopic Hiatal Hernia repair ? Laparoscopic Liver Biopsy ? Upper Gastrointestinal Endoscopy ANESTHESIA: General anesthesia ESTIMATED BLOOD LOSS: Minimal. COMPLICATIONS: None SPECIMENS: Liver Biopsy PREOPERATIVE MEDICATIONS: Ancef, Heparin HISTORY: The patient is a 43 y.o. year old female with history of morbid obesity and a BMI of Body mass index is 49.26 kg/m?.. CONSENT: The patient was seen and evaluated in the office setting where the procedure was explained to the patient and any questions were answered. An informed consent discussion was held between Dr. Romero and the patient. Viable alternatives to the proposed procedur (more content not included)... Reason for Referral Specialty Diagnoses / Procedures Referred By Contac t Referred To Contact Diagnoses Uninodular goiter (nontoxic) Procedures CONSULT TO ENDOCRINE SURGERY OFFICE/OUTPATIENT [facility] 60-[place] [address] [place] [address] Referral ID Status Reason Start Date Expiration Date Visits Requested Visits Authorized [id number] Authorized PCP Requested Referral 2 02/08/2023 1 1 Specialty Diagnoses / Procedures Referred By Contac t Referred To Contact Gastroenterology Diagnoses Dysphagia, unspecified type Procedures CONSULT TO GASTROENTEROLOGY OFFICE/OUTPATIENT [facility] 60-[place] [address] [place] [address] Referral ID Status Reason Start Date Expiration Date Visits Requested Visits Authorized [id number] Authorized PCP Requested Referral 2 02/08/2023 1 1 Additional Source Comments INFORMATION SOURCE (unrecogn ized section and content) DATE CREATED AUTHOR AUTHOR'S ORGANIZ ATION 07/27/2018 [facility] DATE CREATED AUTHOR AUTHOR'S ORGANIZ ATION 01/08/2019 [facility] [employer] [facility] [employer] DATE CREATED AUTHOR AUTHOR'S ORGANIZ ATION 01/25/2019 [facility] DATE CREATED AUTHOR AUTHOR'S ORGANIZ ATION 01/25/2019 [facility] DATE CREATED AUTHOR AUTHOR'S ORGANIZ ATION 12/17/2019 [facility] DATE CREATED AUTHOR AUTHOR'S ORGANIZ ATION 03/17/[address] [facility] Source Comments (unrecognize d section and content) In the event this informatio n is protected by the Federal Confidentiality of Alcohol and Drug Abuse Patient Records regulations: The Federal rules restrict any use of the information to criminally investigate or prosecute any alcohol or drug abuse patient.[facility] the event this information is protected by the Federal Confidentiality of Alcohol and Drug Abuse Patient Records regulations: The Federal rules restrict any use of the information to criminally investigate or prosecute any alcohol or drug abuse patient.[facility] the event this information is protected by the Federal Confidentiality of Alcohol and Drug Abuse Patient Records regulations: The Federal rules restrict any use of the information to criminally investigate or prosecute any alcohol or drug abuse patient.[facility] the event this information is protected by the Federal Confidentiality of Alcohol and Drug Abuse Patient Records regulations: The Federal rules restrict any use of the information to criminally investigate or prosecute any alcohol or drug abuse patient.[facility] the event this information is protected by the Federal Confidentiality of Alcohol and Drug Abuse Patient Records regulations: The Federal rules restrict any use of the information to criminally investigate or prosecute any alcohol or drug abuse patient.[facility] the event this information is protected by the Federal Confidentiality of Alcohol and Drug Abuse Patient Records regulations: The Federal rules restrict any use of the information to criminally investigate or prosecute any alcohol or drug abuse patient.[facility] the event this information is protected by the Federal Confidentiality of Alcohol and Drug Abuse Patient Records regulations: The Federal rules restrict any use of the information to criminally investigate or prosecute any alcohol or drug abuse patient.[facility] the event this information is protected by the Federal Confidentiality of Alcohol and Drug Abuse Patient Records regulations: The Federal rules restrict any use of the information to criminally investigate or prosecute any alcohol or drug abuse patient.[facility] Reason for Visit (unrecogniz ed section and content) Reason Comments Thyroid Nodule Reason Comments Consult FACE SHEET Reason Comments Outside Labs Results Reason Comments Thyroid Problem Specialty Diagnoses / Procedures Referred By Contac t Referred To Contact Diagnoses Uninodular goiter (nontoxic) Procedures CONSULT TO ENDOCRINE SURGERY OFFICE/OUTPATIENT [facility] 60-[place] [address] [place] [address] Referral ID Status Reason Start Date Expiration Date V isits Requested Visits Authorized [id number] Closed PCP Requested Referral 02/08/2022 02/08/2023 1 1 Care Teams (unrecognized sec tion and content) [employer] Relationship Specialty Start Date End Date Luciano Oleary MD PCP - General Family Medicine 03/03/14 [employer] Relationship Specialty Start Date End Date Luciano Oleary MD PCP - General Family Medicine 03/03/14 [employer] Relationship Specialty Start Date End Date Luciano Oleary MD PCP - General Family Medicine 03/03/14 [employer] And [employer]ounder Relationship Specialty Start Date End Date Luciano Oleary MD PCP - General Family Medicine 03/03/14 [employer]ber And Pounder Relationship Specialty Start Date End Date Luciano Oleary MD PCP - General Family Medicine 03/03/14 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 This clinical summary was aggregated from multiple sources. Caution should be exercised in using it in the provision of clinical care. This summary normalizes information from multiple sources, and as a consequence, information in this document may materially change the coding, format and clinical context of patient data. In addition, data may be omitted in some cases. CLINICAL DECISIONS SHOULD BE BASED ON THE PRIMARY CLINICAL RECORDS. [employer] [facility]. provides no warranty or guarantee of the accuracy or completeness of information in this document.
[2023-04-24 06:35] VITALS: BP 118/80; PULSE 66; RESP 18; TEMP 36.1; O2SAT 100; BMI 33.6
[2023-04-24] MEDS: Lactated Ringers 1,000 ML 15 ML IV (06:40)
--- NOTE | 2023-04-24 07:30 | HP.PCM_ITS ---
History and Physical Date of Admission: 04/24/23 47 F who presents to the office today for follow up. WSA established for dysphagia.?EGD 03.22.22?Shayy-en-Y gastrojejunostomy; non-bleeding gastric ulcer, mild gastritis; irregular Zline 33cm; tortuous esophagus. Metaplasia, H.Pylori neg.?Start sucralfate.? *[facility] hospitalization 10.29.22-11.01.22 with syncope/fall and BRBPR with anemia, acute migraine, and chronic conditions of obesity s/p shayy-en0y gastrojejunostomy, HTN, hyperglycemia (A1c 5.8), hypokalemia.?CT abd/pel 10.29.22 with contrast?hepatic steatosis; s/p cholecystectomy and gastric bypass; distal gastric/duodenal wall thickening?EGD 10.29.22?Shayy-en-Y gastrojejunostomy with ulceration, heater probe; two 3mm bleeding AVM, heater probe. No specimens.? OV 04.11.23- Pt stable since hosp visit in October. The last few weeks has had an increase in mid abdominal pain. Will sometimes feel nauseous when eating. Sometimes eating makes the abdominal pain worse. BM are normal. ? ROS Const Constitutional: Positive for fatigue and weight change ENT ENT: No difficulty swallowing Gastro GI: Positive for abdominal pain, bloating, constipation, excessive flatus and nausea/dyspepsia; No belching, change in bowel habits, change in stool character, coffee ground emesis, cramping, diarrhea, heartburn, difficulty swallowing, feeling full early, incontinent of stools, Vomiting blood/hematemesis, Blood in stool, loose stools, Black,tarry stools, pain with swallowing, vomiting or other Musc Musculoskeletal: Positive for back pain, numbness and tingling; No joint pain Skin Skin: No yellowing of the eye or itchy eyes Neuro Neurology: Positive for numbness and tingling Psych Psychiatric: Positive for anxiety and No depression Endo Endocrine: Positive for fatigue and weight change Aller/Imm Allergy/Immunologic: No itchy eyes Peewee/Lymp Hematologic/Lymphatic: No easy bleeding or easy bruising Exam Const General: cooperative, comfortable and no acute distress Orientation: alert, awake and oriented x3 HENMT Head: normal to inspection, normocephalic and atraumatic Ears: hearing grossly normal bilaterally Neck Neck: normal visual inspection, full ROM, no lymphadenopathy and supple Neck mass: No Thyroid: thyroid normal Resp Effort & Inspection: normal respiratory effort and able to speak in complete sentences Auscultation: Bilateral: Clear to Auscultation Cardio Rate: regular rate Rhythm: regular rhythm Heart Sounds: S1 normal and S2 normal GI Palpation: soft (Nontender, no palpable organomegaly) Neuro General: patient alert, patient awake, patient oriented x3, moves all extremities and CN's II-XI intact bilaterally Extrem General: no clubbing, cyanosis or edema Psych Appearance: grossly normal Mental Status: mental status grossly normal Mood: congruent mood Affect: normal affect Quality Reporting Tobacco Screening ([facility] 138) Smoking Status: Never smoker Assessment and Plan Assessment and Plan (1) Colon cancer screening: Status: Acute Plan: She will undergo screening colonoscopy. She was explained alternatives, risk, benefits including not withstanding bleeding, infection, sepsis, perforation, need for emergent surgery and . She will have an ASA of 3. 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 Patient underwent upper GI endoscopy by myself on 10/29/2022 findings included - Normal esophagus. - Shayy-en-Y gastrojejunostomy with gastrojejunal anastomosis characterized by ulceration. Injected. 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 Treated with a heater probe. - Red blood in the gastric body. Patient on PPI ?11/01/2021;Patient underwent repeat EGD on 10/31/2022 given her continued drop in her hemoglobin levels. Findings included normal esophagus. Shayy-en-Y gastrojejunostomy with gastrojejunal anastomosis characterized by a hemorrhagic appearance and ulceration. Treated with argon plasma coagulation (APC). Normal examined jejunum. -Her recent hgb is 14.3. We will repeat her egd to make sure the ulcer is all the way healed I have examined the patient and the H&P has been reviewed. There are no clinical changes since date of exam.
--- NOTE | 2023-04-24 07:30 | COLBX_PTH ---
PATHOLOGY RESULTS PATIENT: ANGELA BUI LOC: EN U#:[id number] AGE/SX: 47/F ROOM: RE04/24/[address]: Dr. Ramez Villatoro DO : 1975 BED: DIS: 04/24/2023 SPEC #: [id number] RECD: 04/24/23 11:21 STATUS: RAY ALY #: [id number] JABIER: 04/24/23 07:[address]: Ramez Villatoro DEPT: SURGICAL PATHOLOGY RECD BY: Cassie Ortega ENTERED: 04/24/23 11:22 SP TYPE: COLON BX OTHR DR: Giancarlo Posadas, DIRECTOR SALES TRAINING-C Tissues: Jejunum, NOS Gastric mucous membrane Esophageal mucous membrane Procedures: Special Stain Group II Surgery Specimen Level IV Alcian Blue/PAS (control) HEADER OPERATION: Colonoscopy, EGD with biopsy PRE-OP DIAGNOSIS: Screening, GI bleed TISSUE SUBMITTED: A - Jejunum biopsy, B - Gastric jejunal anastomosis biopsy, C - Distal esophagus biopsy MICROSCOPIC DIAGNOSIS A. Jejunum, biopsy: Fragments of small intestinal mucosa, no pathologic diagnosis. B. Gastric jejunal anastomosis, biopsy: Fragments of small intestinal and gastric mucosa with mild chronic inflammation. See comment. C. Distal esophagus, biopsy: Fragments of gastroesophageal mucosa with chronic inflammation. Intestinal metaplasia (goblet cell metaplasia) is not identified. See comment. SJ:rg 04/25/2023 COMMENT B. Immunohistochemistry for H. pylori can be performed, if clinically indicated, please notify the laboratory if it is needed. C. Alcian blue/PAS stain with matched control is used in the evaluation of the specimen. MICROSCOPIC DESCRIPTION Slides are reviewed. GROSS DESCRIPTION A - Received in fixative is one container labeled with the patient's name and designated jejunum biopsy. The specimen consists of multiple irregular fragments of light quesada soft tissue that in aggregate measure 1.5 x 0.3 x 0.1 cm. The specimen is totally submitted in one cassette. B - Received in fixative is one container labeled with the patient's name and designated gastric jejunal anastomosis biopsy. The specimen consists of multiple irregular fragments of light quesada soft tissue that in aggregate measure 0.5 x 0.5 x 0.1 cm. The specimen is totally submitted in one cassette. C - Received in fixative is one container labeled with the patient's name and designated distal esophagus biopsy. The specimen consists of two irregular fragments of light quesada soft tissue that in aggregate measure 0.6 x 0.3 x 0.1 cm. The specimen is totally submitted in one cassette. / SJ:gerber 04/24/2023 TC:3 CPT: 34556 x3, [id number]
[2023-04-24 08:21] VITALS: BP 110/72; BP 118/80; PULSE 64; RESP 16; TEMP 36.1; O2SAT 100
[2023-04-24 08:25] VITALS: BP 112/74; BP 118/80; PULSE 66; RESP 16; O2SAT 100
--- NOTE | 2023-04-24 08:26 | OP.CCLET_ITS ---
04/24/2023 Giancarlo Posadas NP [address] [place] [address] [place] [address] Re : Upper GI endoscopy procedure for Catherine Jaramillo Dear Mr. Posadas This procedure was performed on April. My impressions and recommendations are as follows: Impressions : - Z-line variable, 39 cm from the incisors. Biopsied. - Shayy-en-Y gastrojejunostomy with gastrojejunal anastomosis characterized by erythema. Biopsied. - Normal examined jejunum. Biopsied. Recommendations : - Discharge patient to home. - Resume previous diet. - Continue present medications. - Await pathology results. My findings are described in the full procedure note, which is enclosed. If I can be of further assistance, please feel free to contact me at . Sincerely, Ramez Villatoro, 04/24/2023 8:25:53 AM This report has been signed electronically.
--- NOTE | 2023-04-24 08:26 | OP.EGD_ITS ---
Patient Name: Catherine Jaramillo Procedure Date: 04/24/2023 7:31 AM Date of : 1975 Age: 47 Procedure: Upper GI endoscopy Indications: Epigastric abdominal pain Providers: Ramez Villatoro DO Medicines: Monitored Anesthesia Care Patient Profile: This is a 47 year old female. Refer to note in patient chart for documentation of history and physical. Patient has symptoms of chronic global abdominal pain and chronic chest pain. Complications: No immediate complications. Procedure: Pre-Anesthesia Assessment: - Prior to the procedure, a History and Physical was performed, and patient medications and allergies were reviewed. The patient is competent. The risks and benefits of the procedure and the sedation options and risks were discussed with the patient. All questions were answered and informed consent was obtained. Patient identification and proposed procedure were verified by the physician in the pre-procedure area. Mental Status Examination: alert and oriented. Airway Examination: normal oropharyngeal airway and neck mobility. Respiratory Examination: clear to auscultation. CV Examination: normal. Prophylactic Antibiotics: The patient does not require prophylactic antibiotics. Prior Anticoagulants: The patient has taken no anticoagulant or antiplatelet agents. ASA Grade Assessment: II - A patient with mild systemic disease. After reviewing the risks and benefits, the patient was deemed in satisfactory condition to undergo the procedure. The anesthesia plan was to use monitored anesthesia care (MAC). Immediately prior to administration of medications, the patient was re-assessed for adequacy to receive sedatives. The heart rate, respiratory rate, oxygen saturations, blood pressure, adequacy of pulmonary ventilation, and response to care were monitored throughout the procedure. The physical status of the patient was re-assessed after the procedure. After obtaining informed consent, the endoscope was passed under direct vision. Throughout the procedure, the patient's blood pressure, pulse, and oxygen saturations were monitored continuously. The Colonoscope was introduced through the mouth, and advanced to the second part of duodenum. The upper GI endoscopy was accomplished without difficulty. The patient tolerated the procedure well. Scope In: 7:42:36 AM Scope Out: 7:52:47 AM Total Procedure Duration Time 0 hours 10 minutes 11 seconds Findings: The Z-line was variable and was found 39 cm from the incisors. Biopsies were taken with a cold forceps for histology. Verification of patient identification for the specimen was done. Estimated blood loss was minimal. Evidence of a Shayy-en-Y gastrojejunostomy was found. The gastrojejunal anastomosis was characterized by erythema. This was traversed. The ocouj-au-wmpjwzz limb was characterized by healthy appearing mucosa. The attrtpgh-io-wmfctsi limb was not examined as it could not be found. The excluded stomach was not examined as it could not be found. Biopsies were taken with a cold forceps for histology. Verification of patient identification for the specimen was done. Estimated blood loss was minimal. The examined jejunum was normal. This was biopsied with a cold forceps for histology. Verification of patient identification for the specimen was done. Estimated blood loss was minimal. Impression: - Z-line variable, 39 cm from the incisors. Biopsied. - Shayy-en-Y gastrojejunostomy with gastrojejunal anastomosis characterized by erythema. Biopsied. - Normal examined jejunum. Biopsied. Recommendation: - Discharge patient to home. - Resume previous diet. - Continue present medications. - Await pathology results. Procedure Code(s): --- Professional --- 63608, Esophagogastroduodenoscopy, flexible, transoral; with biopsy, single or multiple CPT copyright 2021 [employer]. All rights reserved. The codes documented in this report are preliminary and upon pastry finisher review may be revised to meet current compliance requirements. Ramez Villatoro DO 04/24/2023 8:25:53 AM This report has been signed electronically. Number of Addenda: 0 Note Initiated On: 04/24/2023 7:31 AM
--- NOTE | 2023-04-24 08:28 | OP.COLON_ITS ---
Patient Name: Catherine Jaramillo Procedure Date: 04/24/2023 7:53 AM Date of : 1975 Age: 47 Procedure: Colonoscopy Indications: Screening for colorectal malignant neoplasm Providers: Ramez Villatoro DO Medicines: Monitored Anesthesia Care Patient Profile: This is a 47 year old female. Refer to note in patient chart for documentation of history and physical. Patient has symptoms of chronic global abdominal pain and chronic chest pain. Last Colonoscopy: none. The patient's first colonoscopy is today. Complications: No immediate complications. Procedure: Pre-Anesthesia Assessment: - Prior to the procedure, a History and Physical was performed, and patient medications and allergies were reviewed. The patient is competent. The risks and benefits of the procedure and the sedation options and risks were discussed with the patient. All questions were answered and informed consent was obtained. Patient identification and proposed procedure were verified by the physician in the pre-procedure area. Mental Status Examination: alert and oriented. Airway Examination: normal oropharyngeal airway and neck mobility. Respiratory Examination: clear to auscultation. CV Examination: normal. Prophylactic Antibiotics: The patient does not require prophylactic antibiotics. Prior Anticoagulants: The patient has taken no anticoagulant or antiplatelet agents. ASA Grade Assessment: II - A patient with mild systemic disease. After reviewing the risks and benefits, the patient was deemed in satisfactory condition to undergo the procedure. The anesthesia plan was to use monitored anesthesia care (MAC). Immediately prior to administration of medications, the patient was re-assessed for adequacy to receive sedatives. The heart rate, respiratory rate, oxygen saturations, blood pressure, adequacy of pulmonary ventilation, and response to care were monitored throughout the procedure. The physical status of the patient was re-assessed after the procedure. After I obtained informed consent, the scope was passed under direct vision. Throughout the procedure, the patient's blood pressure, pulse, and oxygen saturations were monitored continuously. The Colonoscope was introduced through the anus and advanced to the cecum, identified by appendiceal orifice and ileocecal valve. The colonoscopy was performed without difficulty. The patient tolerated the procedure well. The quality of the bowel preparation was fair. Scope In: 7:54:08 AM Scope Withdrawal Time 0 hours 16 minutes 46 seconds Scope Out: 8:17:23 AM Total Procedure Duration Time 0 hours 23 minutes 15 seconds Findings: The perianal and digital rectal examinations were normal. A few small-mouthed diverticula were found in the recto-sigmoid colon and sigmoid colon. Stool was found in the recto-sigmoid colon, in the sigmoid colon and in the ascending colon. The entire examined colon appeared normal on direct and retroflexion views. The exam was otherwise without abnormality on direct and retroflexion views. Impression: - Preparation of the colon was fair. - Diverticulosis in the recto-sigmoid colon and in the sigmoid colon. - Stool in the recto-sigmoid colon, in the sigmoid colon and in the ascending colon. - The entire examined colon is normal on direct and retroflexion views. - The examination was otherwise normal on direct and retroflexion views. - No specimens collected. Recommendation: - Discharge patient to home. - Resume previous diet. - Continue present medications. - Repeat colonoscopy in 10 years for screening purposes. Procedure Code(s): --- Professional --- G0121, Colorectal cancer screening; colonoscopy on individual not meeting criteria for high risk CPT copyright 2021 [employer]. All rights reserved. The codes documented in this report are preliminary and upon precision grinder external review may be revised to meet current compliance requirements. Ramez Villatoro DO 04/24/2023 8:28:34 AM This report has been signed electronically. Number of Addenda: 0 Note Initiated On: 04/24/2023 7:53 AM
--- NOTE | 2023-04-24 08:29 | OP.CCLET_ITS ---
04/24/2023 Giancarlo Posadas NP [address] [place] [address] [place] [address] Re : Colonoscopy procedure for Catherine Jaramillo Dear Mr. Posadas This procedure was performed on April. My impressions and recommendations are as follows: Impressions : - Preparation of the colon was fair. - Diverticulosis in the recto-sigmoid colon and in the sigmoid colon. - Stool in the recto-sigmoid colon, in the sigmoid colon and in the ascending colon. - The entire examined colon is normal on direct and retroflexion views. - The examination was otherwise normal on direct and retroflexion views. - No specimens collected. Recommendations : - Discharge patient to home. - Resume previous diet. - Continue present medications. - Repeat colonoscopy in 10 years for screening purposes. My findings are described in the full procedure note, which is enclosed. If I can be of further assistance, please feel free to contact me at . Sincerely, Ramez Villatoro, 04/24/2023 8:28:34 AM This report has been signed electronically.
[2023-04-24 08:30] VITALS: BP 111/70; BP 118/80; PULSE 55; RESP 16; O2SAT 100
[2023-04-24 08:32] VITALS: BP 113/73; BP 118/80; PULSE 60; RESP 16; O2SAT 100
[2023-04-24 08:48] VITALS: BP 118/80
== END 2023-04-24 08:58 | disposition home or self-care (01) ==
LOC: EN 06:18 → AC 06:20
PROVIDERS: PCP Nurse Practitioner Family; Referring Provider Nurse Practitioner Family; Visit Provider Internal Medicine Gastroenterology
PROC: 0DJD8ZZ Inspection of Lower Intestinal Tract, Via Natural or Artificial Opening Endoscopic (ICD-10-PCS; CPT 45378; principal; 2023-04-24 07:25)
DX: Z12.11 Encounter for screening for malignant neoplasm of colon (principal); E11.9 Type 2 diabetes mellitus without complications; K57.30 Diverticulosis of large intestine without perforation or abscess without bleeding; K92.2 Gastrointestinal hemorrhage, unspecified; Z98.0 Intestinal bypass and anastomosis status; Z79.899 Other long term (current) drug therapy; Z90.49 Acquired absence of other specified parts of digestive tract; I10 Essential (primary) hypertension; K21.00 Gastro-esophageal reflux disease with esophagitis, without bleeding; Z87.19 Personal history of other diseases of the digestive system
CPT/HCPCS: 43239; 45378; 88305; 88313; J7120; J2405

== ENCOUNTER → 2023-06-09 | Outpatient (CLI) | payer OTHER, MEDICAID, SELFPAY ==
--- NOTE | 2023-06-09 16:44 | CT_ITS ---
STUDY: CT ABDOMEN AND PELVIS WITH CONTRAST REASON FOR EXAM: Female, 47 years old. Abd pain, nausea, constipation RADIATION DOSAGE (If Supplied By Facility): CTDIvol = ( 14.88 ) mGy, DLP = ( 1178.47 ) mGycm TECHNIQUE: 100ML ISOVUE 370 was administered. Transaxial images were obtained from the dome of the diaphragm to the symphysis pubis. Multiplanar coronal and sagittal images were reformatted. Individualized Dose Optimization Techniques Were Used For This CT. COMPARISON: Prior study dated: 10/29/2022. FINDINGS: The visualized lung bases are unremarkable. The visualized portions of the heart are within normal limits. Mild hepatic steatosis. There are surgical clips in the gallbladder fossa consistent with a prior cholecystectomy. Normal spleen. Normal pancreas. Normal bilateral adrenal glands. Tiny calcifications adjacent to the right renal pelvis appears to be outside the renal pelvis. No evidence of ureteral stones. Normal left kidney. Previous gastric bypass surgery. Normal in caliber small bowel loops. Fecal retention. No evidence of acute diverticulitis The appendix is visualized and appears normal. Mild tortuosity of the abdominal aorta without evidence of aneurysm. No retroperitoneal adenopathy. Normal urinary bladder. There is absence of the uterus consistent with a prior hysterectomy. Normal abdominal wall. No demonstrated acute osseous changes. CT/Abdomen/Pelvis WITH Contrast IMPRESSION: 1. No focal acute inflammatory process. 2. Fecal retention. 3. Tiny calcifications adjacent to the right renal pelvis probably parenchymal. No evidence of hydronephrosis. 4. Status post gastric bypass surgery. Electronically Signed: Mohinder Yoon MD at 8:51 EST ,
[2023-06-09 17:12] LABS: CREATININE FINGERSTICK < 1.0 mg/dL (0.55-1.02); EGFR FINGERSTICK > 60.0000 mL/min (>60)
--- OUTSIDE RECORDS SUMMARY | 2023-06-09 19:03 | XMS RPT_ITS | CCD ---
Author Name Unknown Address [address] [place] [address] Organization [facility] Care Team Providers Care Talend Developer Name Role Phone Chevy ROSENBERG, Jarret Vigil [...] MD Unavailable Luciano Oleary Primary Care Provider LUCIANO OLEARY Admitting Unavailable LUCIANO OLEARY Attending Unavailable LUCIANO OLEARY Primary Care Unavailable LUCIANO OLEARY MD Consulting Unavailable PROVIDER, UNKNOWN Consulting Unavailable JOHN ROMERO Admitting Unavailable JOHN ROMERO Attending Unavailable JOHN ROMERO Primary Care Unavailable LUCIANO OLEARY MD Consulting Unavailable PROVIDER, UNKNOWN Consulting Unavailable Luciano Oleary Primary Care Provider [phone] Luciano Oleary MD Primary Care Provider Luciano Oleary MD Primary Care Provider [phone] Jesu ROSENBERG, Luciano Carvajal Primary Care Provider [phone] Jesu ROSENBERG, Luciano Carvajal Primary Care Provider EVANGELINA SAEED Attending Unavailable LUCIANO OLEARY Primary Care Unavailable COREY SPAIN Referring Unavailable COREY SPAIN Attending Unavailable LUCIANO OLEARY Referring Unavailable LUCIANO OLEARY Primary Care Unavailable Allergies Allergy Classification Reported Allergen(s) Allergy Type Date of Onset Reaction(s) Facility (5 sources) penicillin drug allergy 08-30-19 15 rash [facility] Work Phone: (11 sources) Penicillins; Translations: [penicillins] Propensity to adverse reactions to drug (disorder) 02-19-20 18 Rash [facility] Repository (10 sources) Sulfamethoxazole / Trimethoprim Drug Allergy 09-29-19 19 Itching, Rash [place], [place] (9 sources) Penicillin G; Translations: [PENICILLIN G] Drug Allergy 03-11-20 05 [facility] Work Phone: (3 sources) Non-steroidal anti-inflammatory agent; Translations: [NSAIDS (NON-STEROIDAL ANTI-INFLAMMATORY DRUG)] Drug Allergy 02-08-20 22 Unknown [facility] (3 sources) Sulfamethoxazole; Translations: [SULFAMETHOXAZOLE] Drug Allergy 01-09-20 21 Rash, Unknown [facility] Medications Current Medications Medication Drug Class(es) Dates [...] 162.6 cm Evangelina Saeed MD Work Phone: [facility] 03-13-2022 11:10-0500 Body weight 94.35 kg Evangelina Saeed MD Work Phone: [facility] 03-13-2022 11:10-0500 Diastolic blood pressure 85 mm[Hg] Evangelina Saeed MD Work Phone: [facility] 03-13-2022 11:10-0500 Heart rate 71 /min Evangelina Saeed MD Work Phone: [facility] 03-13-2022 11:10-0500 Systolic blood pressure 142 mm[Hg] Evangelina Saeed MD Work Phone: [facility] 12-30-2018 11:16-0400 Body Temperature 100 [degF] John LandinDo[employer]ji[employer] [facility] 12-30-2018 11:16-0400 BP Diastolic 104 mm[Hg] [employer] [facility] , [place] 12-30-2018 11:16-0400 BP Systolic 149 mm[Hg] [employer] [facility] [place] 12-30-2018 11:16-0400 Pulse (Heart Rate) 73 /min John [employer] [facility] 12-30-2018 11:16-0400 Pulse Oximetry 96 % John LandinMingxieku [facility] [place] 12-30-2018 11:16-0400 Respiratory Rate 16 /min John LandinKwestr [facility] 12-28-2018 05:35-0400 BMI (Body Mass Index) 49.26 kg/m2 John Romero [employer] [facility] 12-28-2018 05:35-0400 Body weight 130.18 kg John [employer] [facility] [place] 12-28-2018 05:35-0400 Height 162.6 cm John Landin[employer] [facility] [place] 12-22-2018 07:40-0400 BMI (Body Mass Index) 49.26 kg/m2 John Fox [facility] 12-22-2018 07:40-0400 Body Temperature 98.2 [degF] John Fox [facility] 12-22-2018 07:40-0400 Body weight 130.18 kg John Fox [facility] , [place] 12-22-2018 07:40-0400 BP Diastolic 70 mm[Hg] John Fox [facility] [place] 12-22-2018 07:40-0400 BP Systolic 115 mm[Hg] John Romero [facility] [place] 12-22-2018 07:40-0400 Height 162.6 cm [facility] [place] 12-22-2018 07:40-0400 Pulse (Heart Rate) 70 /min John Romero [facility] 12-22-2018 07:40-0400 Pulse Oximetry 97 % John Romero [facility] [place] 12-22-2018 07:40-0400 Respiratory Rate 16 /min John Romero [facility], [place] 08-30-2016 09:47-0400 BMI (Body Mass Index) 50.63 kg/m2 Jarret Reece MD [facility] Work Phone: 08-30-2016 09:47-0400 Body Temperature 98.6 [degF] Jarret Reece MD [facility] Work Phone: 08-30-2016 09:47-0400 BP Diastolic 82 mm[Hg] Jarret Reece MD [facility] Work Phone: 08-30-2016 09:47-0400 BP Systolic 126 mm[Hg] Jarret Reece MD [facility] Work Phone: 08-30-2016 09:47-0400 BSA (Body Surface Area) 2.34 m2 Jarret Reece MD [facility] Work Phone: 08-30-2016 09:47-0400 Height 163.83 cm Jarret Reece MD [facility] Work Phone: 08-30-2016 09:47-0400 Pulse (Heart Rate) 62 /min Jarret Reece MD [facility] Work Phone: 08-30-2016 09:47-0400 Pulse Oximetry 97 % Jarret Reece MD [facility] Work Phone: 08-30-2016 09:47-0400 Respiratory Rate 16 /min Jarret Reece MD [facility] Work Phone: 08-30-2016 09:47-0400 Weight 135.9 kg Jarret Reece MD [facility] Work Phone: 08-21-2016 13:12-0400 BMI (Body Mass Index) 50.12 kg/m2 Jarret Reece MD [facility] Work Phone: 08-21-2016 13:12-0400 Body Temperature 98.3 [degF] Jarret Reece MD [facility] Work Phone: 08-21-2016 13:12-0400 BP Diastolic 84 mm[Hg] Jarret Reece MD [facility] Work Phone: 08-21-2016 13:12-0400 BP Systolic 123 mm[Hg] Jarret Reece MD [facility] Work Phone: 08-21-2016 13:12-0400 BSA (Body Surface Area) 2.33 m2 Jarret Reece MD [facility] Work Phone: 08-21-2016 13:12-0400 Height 163.83 cm Jarret Reece MD [facility] Work Phone: 08-21-2016 13:12-0400 Pulse (Heart Rate) 60 /min Jarret Reece MD [facility] Work Phone: 08-21-2016 13:12-0400 Pulse Oximetry 97 % Jarret Reece MD [facility] Work Phone: 08-21-2016 13:12-0400 Respiratory Rate 16 /min Jarret Reece MD [facility] Work Phone: 08-21-2016 13:12-0400 Weight 134.54 kg Jarret Reece MD [facility] Work Phone: 07-03-2016 11:18-0400 BMI (Body Mass Index) 49.98 kg/m2 [facility] Work Phone: 07-03-2016 11:18-0400 Body Temperature 98.6 [degF] [facility] Work Phone: 07-03-2016 11:18-0400 BP Diastolic 85 mm[Hg] Azizamegan Simons [facility] Work Phone: 07-03-2016 11:18-0400 BP Systolic 121 mm[Hg] Azizamegan Simons [facility] Work Phone: 07-03-2016 11:18-0400 BSA [...] 11:18-0400 Respiratory Rate 16 /min Aziza Simons [facility] Work Phone: 07-03-2016 11:18-0400 Weight 134.17 kg Aziza Simons [facility] Work Phone: Encounters Encounter Date [...] ev cleared fda spec home use John [employer] Work Phone: Start: 12-28-2018 Level iv surg pathol ogy gross&microscopic exam John Dubon [employer] Work Phone: Start: 12-28-2018 Gluc bld gluc mntr d ev cleared fda spec home use John Dubon [employer] Work Phone: Start: 12-22-2018 Basic metabolic pane [...] Author Start: 12-20-2021 Influenza vaccination INFLUENZA (#1) [facility] Start: 05-23-2021 COVID-19 VACCINE (3 - Booster for Pfizer series) COVID-19 VACCINE (3 - Booster for Pfizer series) [facility] Start: 04-21-2021 DEPRESSION ASSESSMENT DEPRESSION ASSESSMENT [facility] Start: 06-30-2020 End: 06-30-2020 Office Visit 06/30/2020 Office Visit Weight Management Xiao Danielle MD [address] [facility] [address] [place], [place] [phone] [facility] Start: 12-31-2019 Creatinine monitoring Creatinine monitoring [facility] , [place] Start: 12-31-2019 Potassium monitoring Potassium monitoring [facility], [place] Start: 12-30-2019 Creatinine monitoring Creatinine monitoring [place], [place] Start: 12-30-2019 Potassium monitoring Potassium monitoring [place], [place] Start: 12-23-2019 Creatinine monitoring Creatinine monitoring [place] Start: 12-23-2019 Potassium monitoring Potassium monitoring [place] Start: 12-21-2019 Influenza vaccination Flu vaccine (#1) [place], [place] Start: 12-04-2019 A1C test (Diabetic or Prediabetic) A1C test (Diabetic or Prediabetic) [place] Start: 12-04-2019 Creatinine monitoring Creatinine monitoring [place] Start: 12-04-2019 HbA1c (Bld) [Mass fraction] A1C test (Diabetic or Prediabetic) [place] Start: 12-04-2019 Potassium monitoring Potassium monitoring [place] Start: 06-29-2019 End: 06-29-2019 Patient encounter procedure 06/29/2019 Office Visit Bariatrics Leyda Almeida STATION AGENT - VENDING ENTERPRISES SUPERVISOR [address] [place] [address] [facility] Start: 05-04-2019 Lipid panel Lipid screen [place], [place] Start: 05-04-2019 Lipid screen Lipid [place] Start: 01-07-2019 End: 01-07-2019 Office Visit 01/07/2019 Office Visit Bariatrics John Romero MD [address] [place] [address] [phone] [facility] Start: 01-04-2019 End: 01-04-2019 Office Visit 01/04/2019 Office Visit Bariatrics Leyda Almeida APRN - VENDING ENTERPRISES SUPERVISOR [address] [place] [address] [facility] Start: 12-28-2018 End: 12-28-2018 Appointment 12/28/2018 Appointment General Surgery John Romero MD [address] [place], [place] [phone] [facility] General Surgery Start: 12-22-2018 End: 12-22-2018 Appointment 12/22/2018 Appointment Pre-Admission Testing John Romero MD [address] [place] [address] [phone] [facility] Pre-Admit Testing Start: 12-20-2018 Influenza vaccination Flu vaccine (#1) [place], [place] Start: 12-07-2018 End: 12-07-2018 Office Visit 12/07/2018 Office Visit Weight Management Xiao Danielle MD [address] [place] [address] [phone] [facility] Start: 12-04-2018 End: 12-04-2018 Office Visit 12/04/2018 Office Visit [facility] Start: 2017 Mammography MAMMOGRAM [facility] Start: 08-30-2016 End: 08-30-2016 Appointment Appointment [facility] Work Phone: Start: 08-30-2016 End: 08-31-2016 Follow Up Appt Other Follow Up Appt Other [facility] Work Phone: Start: 08-21-2016 End: [...] extremity w/dye MRI Upper Extremity with Contrast [facility] Work Phone: Start: 07-03-2016 End: 07-04-2016 X-ray exam of wrist X-Ray, Wrist [facility] Work Phone: Start: 12-23-2014 End: 07-04-2016 Follow Up Appt Other Follow Up Appt Other [facility] Work Phone: Start: 12-12-2014 End: 07-04-2016 Bacterica wound culture *CUW - Culture, Wound (Aerobic) [facility] Work Phone: Start: 12-12-2014 End: 07-04-2016 Follow up Appt 1 week Follow up Appt 1 week [facility] Work Phone: Start: 12-12-2014 End: 07-04-2016 Mri upper extremity w/dye MRI Upper Extremity with Contrast [facility] Work Phone: Start: 2014 End: 07-04-2016 Follow Up Appt Other Follow Up Appt Other [facility] Work Phone: Start: 2014 End: 07-04-2016 Primary Care Physician Primary Care Physician [facility] Work Phone: Start: 08-29-2014 End: 11-15-2014 Follow Up Appt Other Follow Up Appt Other [facility] Work Phone: Start: 08-12-2013 HPV TESTING HPV TESTING [facility] Start: 08-12-2013 PAP TESTING PAP TESTING [facility] Start: 1996 DTaP/Tdap/Td vaccine (1 - Tdap) DTaP/Tdap/Td vaccine (1 - Tdap) [place], [place] Start: 1996 Hepatitis B Vaccine (1 of 3 - Risk 3-dose series) Hepatitis B Vaccine (1 of 3 - Risk 3-dose series) [place] Start: 1996 Urine microalbumin profile DTAP,TDAP,TD (1 - Tdap) [facility] Start: 11-24-1995 Diabetic microalbuminuria test Diabetic microalbuminuria test [place] Start: 11-24-1995 HEPATITIS C SCREENING HEPATITIS C SCREENING [facility] Start: 11-24-1995 HIV SCREENING HIV SCREENING [facility] Start: 1992 HIV screen HIV screen [place], [place] Start: 1992 HIV screening HIV screen [place] Start: 1989 Adult depression screening assessment DEPRESSION SCREENING [facility] Start: 1988 DTaP/Tdap/Td vaccine (1 - Tdap) DTaP/Tdap/Td vaccine (1 - Tdap) [facility] Work Phone: Start: 11-24-1987 [object Object] Diabetic foot exam [place], [place] Start: 11-24-1987 Diabetic foot examination Diabetic foot exam [place] Start: 11-24-1987 Diabetic retinal exam Diabetic retinal exam [place] Start: 11-24-1983 Pneumococcal 0-64 years Vaccine (1 of 1 - PPSV23) Pneumococcal 0-64 years Vaccine (1 of 1 - PPSV23) [place] Start: 05-26-1978 COVID-19 VACCINE (#1) COVID-19 VACCINE (#1) [facility] Start: 1977 HEPATITIS B (1 of 3 - 3-dose series) HEPATITIS B (1 of 3 - 3-dose series) [facility] Basic Metabolic Pane l w/ Reflex to MG Basic Metabolic Panel w/ Reflex to MG Lab Routine Daily until discontinued starting 12/29/2018, 2 completed [place], [place] Immunizations Immunization Date Immunization Notes Care Provider Doreen wilson NEGATED: Highlighted row has not occurred!12-29-2018 influenza, injectable, quadrivalent, preservative free John Romero [place], [place] Payers Date Payer Category Payer Unknown [id number] 2018 Unknown [facility] x[facility]xx 2018-Present [phone] CLAIMS DEPARTMENT [address] [place] [address] xxxxxxxxxxx [id number] 2017 Unknown 2014 Medicaid [id number] 2014 Unknown [id number] 1977 Unknown [id number] 1977 Unknown [id number] 1977 Unknown [id number] 1977 Unknown [id number] 1977 Unknown [id number] 1977 Unknown [id number] Social History Date Type Detail Facility Start: 12-03-2018 End: 03-13-2022 Tobacco smoking status NHIS Never smoker [facility] Start: 12-03-2018 End: 12-22-2018 Alcohol intake No [employer] Start: 1975 Sex Assigned At [facility] Start: 01-28-2019 End: 03-13-2022 Tobacco use and exposure [facility] Start: 01-28-2019 End: 03-13-2022 Alcohol intake Current non-drinker of alcohol (finding) [facility] Work Phone: Start: 1975 Sex Assigned At Female C [facility] Start: 03-03-2022 End: 03-13-2022 Exposure to SARS-CoV-2 (event) Not sure [facility] Progress note 03-13-2022 Note Date & Type Note Facility 03-13-2022 Note HNO ID: [id number] Author: Evangelina Saeed MD Service: ? Author Type: Physician Type: Progress Notes Filed: 03/13/2022 12:25 PM Note Text: Endocrinology Metabolism [facility] Evangelina Saeed M.D. Section of Endocrine Surgery and Advanced Laparoscopic Surgery [address] [place] [address], [address] [address] ENDOCRINE SURGERY NEW CONSULTATION NAME: [facility]il [facility] NO: [id number] : 1975 Surgeon: Dr. Evangelina Saeed REFERRING PROVIDER: Corey Harding [address] [address] The patient was referred by the above [...] FLUID, FINE NEEDLE ASPIRATION, 10 OUTSIDE SLIDES, ([id number]), [place], [place], (01-08-21): Benign. Consistent with colloid nodule with cystic changes. B - SLIDE(S) - RIGHT THYROID NODULE FLUID, FINE NEEDLE ASPIRATION, 9 OUTSIDE SLIDES, ([id number]), [place], [place], (05-14-2021): Non-diagnostic aspirate sample. Cyst Contents [...] which included preparing to see the patient, [id number] patient care, completing cl (more content not included)... [facility] History of Present illness Narrative 03-13-2022 Evangelina Saeed MD - 03/13/2022 12:09 PM EST Note Date & Type Note Facility 03-13-2022 History of Presen t illness Narrative Endocrinology Metabolism [facility] Evangelina Saeed M.D. Section of Endocrine Surgery and Advanced Laparoscopic Surgery [address] [place] [address], [facility] [address] [phone] ENDOCRINE SURGERY NEW CONSULTATION NAME: Angela Bui [facility] NO: [id number] : 1975 Surgeon: Dr. Evangelina Saeed REFERRING PROVIDER: Corey Harding [address] [address] [address] The patient was referred by the above [...] FLUID, FINE NEEDLE ASPIRATION, 10 OUTSIDE SLIDES, ([id number]), [place], [place], (01-08-21): Benign. Consistent with colloid nodule with cystic changes. B - SLIDE(S) - RIGHT THYROID NODULE FLUID, FINE NEEDLE ASPIRATION, 9 OUTSIDE SLIDES, ([id number]), [place], [place], (05-14-2021): Non-diagnostic aspirate sample. Cyst Contents [...] which included preparing to see the patient, [id number] patient care, completing clinical documentation, obtaining and/or reviewing separately obtained history, performing a medically appropriate examination, counseling and educating the patient/family/caregiver, communicating with other HCPs (not separately reported), independently interpreting results (not separately reported), communicating results to the patient/family/caregiver, and care coordination (not separately reported). Sincerely, Evangelina Saeed MD 03/13/2022 CC: Corey Harding [id number] [facility] [address] documented in this encounter [facility] Instructions 03-13-2022 Patient Instructions Note Date & Type Note Facility 03-13-2022 Instructions Erica Calderon Ma - 03/13/2022 11:10 AM EST Thank you for choosing the [facility] Department of Endocrinology, Diabetes and Metabolism. Did you know that you need to call 48 hours in advance of your scheduled visit, if you are unable to make your appointment? The Endocrinology and Metabolism Romeo thanks you for your commitment, because patients not showing to their appointment results in a lost opportunity for patients to receive [facility] health care at the [facility]. To Cancel an appointment, please choose one of the following: - Call the Appointment Call Center at [phone] - From [facility] [place], Go to Appointments - Cancel Appts If cancelling, consider your need to reschedule to prevent further delays in your care. To Schedule an appointment, please choose one of the following: - Call the Appointment Call Center at [phone] - From [facility], Go to Appointments - Request an Appt documented in this encounter [facility] Note 03-08-2022 Telephone Encounter - Corey Harding MD - 03/08/2022 5:23 PM ESTTelephone Encounter - Nany Garay - 03/06/2022 9:07 AM EST Note Date & Type Note Facility 03-08-2022 Miscellaneous Notes Formattin g of this note might be different from the original. 01/2022: TSH: 0.62 Corey Harding MD Uploaded labs from [facility] received on 02/21/2022 scanned into chart for review TSH results Nany Garay Tooling Manager II [facility] documented in this encounter [facility] Note 03-05-2022 Telephone Encounter - Kaylee Jiang - 03/05/2022 1:59 PM EST Note Date & Type Note Facility 03-05-2022 Miscellaneous Notes Formattin g of this note is different from the original. 03/05/2022-INTAKE COMPLETED- US COMPLETED LOCALLY-TSH COMPLETED LOCALLY-REQUESTED SLIDES FROM [facility] AND SURGERY AND IMAGES FROM [place]. ENDOCRINE SURGERY PATIENT WORKSHEET Initial Call Date: March 05, 2022 Reason for Consult/ Referral: Thyroid Nodule PATIENT DEMOGRAPHICS Name: Angela Bui [facility]CF#: [id number] : 1975 AGE: [age] year old Contact Numbers: Home: (home) Work: There is no work phone number on file. PATIENT PHYSICIAN INFORMATION Referring Doctor: Address: Phone: Adjunct English Instructor: Address: Phone: PCP: Luciano Oleary MD [address] [place] [id number] PAST TREATMENT Office notes: SEE EPIC Medications: NONE THAT APPLY Pre-Visit Testing STUDY/TEST DATE ORDERED/REQUESTED DATE RECEIVED/COMPLETED ENTIRE PANEL TSH COMPLETED LOCALLY-SCANNED INTO [facility] FREE T4 FREE T3 Imaging Reports: SEE [facility] CD of Images: SEE EPIC FNA: yes: 01/09,05/12 FNA Slides: Slides requested from outside facility (Date received: ) Has the patient ever had thyroid or parathyroid surgery before: Yes: Thyroid (Date: ? 2007) Operative Reports: SEE [facility] Pathology Reports: SEE EPIC documented in this encounter [facility] Progress note 02-08-2022 Note Date & Type Note Facility 02-08-2022 Note HNO ID: [id number] Author: Corey Harding MD Service: ? Author [...] Luciano Oleary MD, MD Luciano Oleary MD [address] [place] [address] History of Present Illness Angela Bui is [...] or chest? no Intake of iodine/kelp/seaweed: no [place]: no Steroids: no Warfarin: no Amiodarone: no [...] 0.58 Cytology 01/20 (more content not included)... [facility] History of Present illness Narrative 02-08-2022 [...] Luciano Oleary MD, MD Luciano Oleary MD [address] [place] [address] History of Present Illness Angela Bui is [...] or chest? no Intake of iodine/kelp/seaweed: no [place]: no Steroids: no Warfarin: no Amiodarone: no [...] Corey Harding MD documented in this encounter [facility] Evaluation note Note Date & Type Note Facility documented in this encounter [facility] Evaluation note Note Date & Type Note Facility documented in this encounter [facility] Evaluation note Note Date & Type Note Facility documented in this encounter [facility] Summary Purpose Family History No Family History Records FoundNo Family History Records FoundNo Family History Records FoundNo Family History Records FoundNo Family History Records FoundNo Family History Records FoundNo Family History Records Found Advance Directives No Advanced Directives Records FoundDocuments on File Type Date Recorded 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 Below please see discharge orders that will help you during your recovery. Please do not hesitate to call theoffice during the day at [phone] for any questions. After hours, the same [...] and get well soon! [facility] DINING ROOM TABLES SET UP ATTENDANT DISCHARGE INSTRUCTIONS The following information was reviewed with the patient, the patient was given a hard copy of theseinstructions by the Bariatric accounting instructor, and the instructions were signed by the [...] (swelling, redness, drainage, pain) please notify manager content. 4. Take your temperature twice a day [...] drainage in the grenade. The color will drying rack changer time. Normal color changes include Red ? [place] ? [place]/Yellow ? Bernard and will always be clear [...] directed by your surgeon and your nurse nurse outreach case manager. Make an appointment with your prescribing physician [...] device after surgery. 22. Please call the [facility] at [phone] if you have any questions or concerns during business hours: Mon.-Fri. 8:00 a.m. - 4:30 p.m. The answering service may be called during non-business hours at [phone]. If you have a medical emergency, [...] office visits with your surgeon at the [facility] are located in the discharge folder. [facility] DIETITIAN DISCHARGE INSTRUCTIONS The following information was [...] diet(s), please contact the Bariatric Dietitians at [phone]. [address], LD BARIATRIC CARE CENTER [...] Everywhere. * Gastric Bypass: Laparoscopic Shayy-en-Y: Pre-op (Vietnamese) documented in this encounter History of Present Illness * Katarina Cheek RN - 12/29/2018 2:42 PM EDT Bariatric accounting instructor Note POD #1 - PM Patient s/p [...] RN - 12/29/2018 9:15 AM EDT Bariatric accounting instructor Note - POD #1 - AM Patient [...] Castro MD - 12/29/2018 7:31 AM EDT [facility] - [facility] Patient Name: Angela Bui Date: 12/29/2018 [facility]-General Surgery/Bariatric Progress Note Subjective: The patient is [...] Romero MD - 12/29/2018 2:13 PM EDT [facility] - [facility] Patient Name: [...] service as well as the bariatric nurse nurse outreach case manager. * Kandi Koroma RN - 12/29/2018 6:57 [...] Called sds and gave room number to assistant corporate secretary. To send family to room to [...] diabetes mellitus with complication, unspecified whether senior living insulin use (HCC) Gastroesophageal reflux disease, esophagitis presence not specified Diagnosis PETER on CPAP Obstructive sleep apnea (adult) (pediatric) Hypertension, unspecified type Screening for diabetes mellitus Prediabetes Other abnormal glucose Hospital Course Note Physician Discharge Summary Patient ID: Angela Bui [id number] y.o. 1975 Admit date: 12/28/2018 Discharge [...] DATE OF : 12/28/2018 SURGEON: John Romero WEBFED OFFSET PRESS OPERATOR: Alen Sapp MD PREOPERATIVE DIAGNOSIS: ? PETER [...] DATE OF : 12/28/2018 SURGEON: John Romero WEBFED OFFSET PRESS OPERATOR: Alen Sapp MD PREOPERATIVE DIAGNOSIS: ? PETER [...] (nontoxic) Procedures CONSULT TO ENDOCRINE SURGERY OFFICE/OUTPATIENT [facility] 60-[place] [address] [place] [address] Referral ID Status Reason Start Date Expiration Date Visits Requested Visits Authorized [id number] Authorized PCP Requested Referral 2 02/08/2023 1 1 Specialty Diagnoses / Procedures Referred By Contac t Referred To Contact Gastroenterology Diagnoses Dysphagia, unspecified type Procedures CONSULT TO GASTROENTEROLOGY OFFICE/OUTPATIENT [facility] 60-[place] [address] [place] [address] Referral ID Status Reason Start Date Expiration Date Visits Requested Visits Authorized [id number] Authorized PCP Requested Referral 2 02/08/2023 1 1 Additional Source Comments INFORMATION SOURCE (unrecogn ized section and content) DATE CREATED AUTHOR AUTHOR'S ORGANIZ ATION 07/27/2018 [facility] DATE CREATED AUTHOR AUTHOR'S ORGANIZ ATION 01/08/2019 [facility] DATE CREATED AUTHOR AUTHOR'S ORGANIZ ATION 01/25/2019 [facility] DATE CREATED AUTHOR AUTHOR'S ORGANIZ ATION 01/25/2019 [facility] DATE CREATED AUTHOR AUTHOR'S ORGANIZ ATION 12/17/2019 [facility] DATE CREATED AUTHOR AUTHOR'S ORGANIZ ATION 03/17/2022 [facility] Source Comments (unrecognize d section and content) In the event this informatio n is protected by the Federal Confidentiality of Alcohol and Drug Abuse Patient Records regulations: The Federal rules restrict any use of the information to criminally investigate or prosecute any alcohol or drug abuse patient.[facility] the event this information is protected by the Federal Confidentiality of Alcohol and Drug Abuse Patient Records regulations: The Federal rules restrict any use of the information to criminally investigate or prosecute any alcohol or drug abuse patient.[facility] the event this information is protected by the Federal Confidentiality of Alcohol and Drug Abuse Patient Records regulations: The Federal rules restrict any use of the information to criminally investigate or prosecute any alcohol or drug abuse patient.[facility] the event this information is protected by the Federal Confidentiality of Alcohol and Drug Abuse Patient Records regulations: The Federal rules restrict any use of the information to criminally investigate or prosecute any alcohol or drug abuse patient.[facility] the event this information is protected by the Federal Confidentiality of Alcohol and Drug Abuse Patient Records regulations: The Federal rules restrict any use of the information to criminally investigate or prosecute any alcohol or drug abuse patient.[facility] the event this information is protected by the Federal Confidentiality of Alcohol and Drug Abuse Patient Records regulations: The Federal rules restrict any use of the information to criminally investigate or prosecute any alcohol or drug abuse patient.[facility] the event this information is protected by the Federal Confidentiality of Alcohol and Drug Abuse Patient Records regulations: The Federal rules restrict any use of the information to criminally investigate or prosecute any alcohol or drug abuse patient.[facility] the event this information is protected by the Federal Confidentiality of Alcohol and Drug Abuse Patient Records regulations: The Federal rules restrict any use of the information to criminally investigate or prosecute any alcohol or drug abuse patient.[facility] Reason for Visit (unrecogniz ed section and content) Reason Comments Thyroid Nodule Reason Comments Consult FACE SHEET Reason Comments Outside Labs Results Reason Comments Thyroid Problem Specialty Diagnoses / Procedures Referred By Contac t Referred To Contact Diagnoses Uninodular goiter (nontoxic) Procedures CONSULT TO ENDOCRINE SURGERY OFFICE/OUTPATIENT [facility] 60-[place] [address] [place] [address] Referral ID Status Reason Start Date Expiration Date V isits Requested Visits Authorized [id number] Closed PCP Requested Referral 02/08/2022 02/08/2023 1 1 Care Teams (unrecognized sec tion and content) Talend Developer Relationship Specialty Start Date End Date Luciano Oleary MD PCP - General Family Medicine 03/03/14 Talend Developer Relationship Specialty Start Date End Date Luciano Oleary MD PCP - General Family Medicine 03/03/14 Talend Developer Relationship Specialty Start Date End Date Luciano Oleary MD PCP - General Family Medicine 03/03/14 Talend Developer Relationship Specialty Start Date End Date Luciano Oleary MD PCP - General Family Medicine 03/03/14 Talend Developer Relationship Specialty Start Date End Date Luciano Oleary MD PCP - General Family Medicine 03/03/14 Talend Developer Relationship Specialty Start Date End Date Luciano [...] BE BASED ON THE PRIMARY CLINICAL RECORDS. [employer] [facility] provides no warranty or guarantee of the accuracy or completeness of information in this document.
== END | disposition home or self-care (01) ==
LOC: CT 16:42
PROVIDERS: PCP Nurse Practitioner Family; Referring Provider Internal Medicine Gastroenterology; Visit Provider Internal Medicine Gastroenterology
DX: R10.9 Unspecified abdominal pain (principal); R11.0 Nausea; K59.09 Other constipation
CPT/HCPCS: 74177; Q9967

== ENCOUNTER → 2023-07-07 | Outpatient (CLI) | payer OTHER, SELFPAY ==
[2023-07-07 15:17] LABS: Prothrombin Time (Protime)PT. 13.3 SECONDS (11.7-14.9)
[2023-07-07 15:21] LABS: Erythrocyte Sedimentation Rate 7 mm/hr (0-30)
[2023-07-07 15:29] LABS: Hemoglobin A1c 5.2 % (3.8-5.6)
[2023-07-07 15:30] LABS: ALB/GLOB Ratio 1.1 RATIO (0.9-2.4); AST(SGOT) 20 U/L (15-37); Alanine Aminotransfer ALT/SGPT 25 U/L (13-56); Albumin, Serum 3.8 g/dL (3.2-5.0); Alkaline Phosphatase 70 U/L (45-117); Anion Gap 6 (5-15); BUN 10 mg/dL (7-18); BUN/Creat Ratio 14.2 RATIO (10-20); CRP < 2.90 mg/L (0.0-3.0); Calcium,Total 8.5 mg/dL (8.5-10.1); Chloride 109 mmol/L (98-107); Cholesterol 149 mg/dL (200); EST Glomerular Filtration Rate 95 mL/min (>60); Est Glom Filt Rate - Afr Amer 116 mL/min (>60); Ferritin 145 ng/mL (8-252); Globulin 3.5 g/dL (2.2-4.2); Glucose 106 mg/dL (74-106); High Density Lipoprotein 57 mg/dL; Iron Binding Capacity,Total 297 ug/dL (250-450); LDH 227 U/L (84-246); Potassium 3.8 mmol/L (3.5-5.1); Protein, Total 7.3 g/dL (6.4-8.2); Sodium Level 139 mmol/L (136-145); Triglycerides 88 mg/dL; Very Low Density Lipoprotein 18 mg/dL (5-40)
[2023-07-07 17:12] LABS: HIV - WCH Non-Reactive (Nonreactive)
[2023-07-09 15:08] LABS: Anti-Centromere B Ab <0.2 AI (0.0-0.9); Anti-Chromatin <0.2 AI (0.0-0.9); Anti-Jo <0.2 AI (0.0-0.9); Anti-Mitochondrial AB <20.0 Units (0.0-20.0); Anti-Scleroderma-70 AB <0.2 AI (0.0-0.9); Anti-dsDNA Ab <1 IU/mL (0-9); RNP Ab <0.2 AI (0.0-0.9); SJOGREN'S Anti-SS-A test < 0.2 AI (0.0-0.9); SJOGREN'S Anti-SS-B test < 0.2 AI (0.0-0.9); Smith Ab <0.2 AI (0.0-0.9)
[2023-07-09 16:10] LABS: Alpha-1-Globulins 0.2 g/dL (0.0-0.4); Alpha-2-Globulins 0.6 g/dL (0.4-1.0); Free Kappa Light Chains 17.5 mg/L (3.3-19.4); Free Lambda Light Chains 18.9 mg/L (5.7-26.3); Gamma Globulin 1.1 g/dL (0.4-1.8); Immunoglobulin A 202 mg/dL (87-352); Immunoglobulin G 1080 mg/dL (586-1602); Immunoglobulin M 106 mg/dL (26-217)
[2023-07-11 15:08] LABS: AFP, Tumor Marker 7.7 ng/mL (0.0-6.4); Angiotensin Convert Enzyme 49 U/L (14-82); Anti-Smooth Muscle ABS 15 Units (0-19); Ceruloplasmin 24.9 mg/dL (19.0-39.0); Copper, Serum or Plasma 114 ug/dL (80-158); Cytoplasmic Ab (C-ANCA) <1:20 titer (Neg:<1:20); HEPATITIS B SURFACE AG Negative (Negative); Haptoglobin 27 mg/dL (42-296); Hep C Antibodies Non Reactive (Non Reactive); Hepatitis A IgM Antibody Negative (Negative); Hepatitis B Core AB IgM Negative (Negative); Perinuclear Ab (P-ANCA) <1:20 titer (Neg:<1:20); Transferrin 226 mg/dL (192-364)
== END | disposition home or self-care (01) ==
LOC: LAB 14:07
PROVIDERS: Internal Medicine Medical Oncology; Referring Provider Internal Medicine Gastroenterology; Visit Provider Internal Medicine Gastroenterology
DX: K59.09 Other constipation (principal); K76.0 Fatty (change of) liver, not elsewhere classified; D47.2 Monoclonal gammopathy
CPT/HCPCS: 80053; 80061; 80074; 82105; 82140; 82164; 82390; 82525; 82728; 82784; 83010; 83036; 83516; 83550; 83615; 83883; 84165; 84466; 85610; 85652; 86140; 86225; 86235; 86256; 86334; 86703

== ENCOUNTER → 2023-07-18 | Outpatient (CLI) | payer OTHER, SELFPAY ==
--- NOTE | 2023-07-18 09:07 | US_ITS ---
STUDY: ABDOMINAL ULTRASOUND - RIGHT UPPER QUADRANT; ELASTOGRAPHY REASON FOR VISIT: Female, 47 years old. Fatty infiltration of the liver. TECHNIQUE: Ultrasound evaluation of the right upper quadrant was performed with real-time and static baxter-scale imaging. Point quantification shear wave elastography was performed (appEatIT). TECHNICAL QUALITY: Adequate. COMPARISON: Comparison is made with prior CT scan of abdomen dated June 09, 2023. FINDINGS: Liver: The liver measures 17.4 cm. There is increased echogenicity consistent with fatty infiltration. The bile ducts are within normal limits. There is hepatic color flow. The direction of portal flow is hepatopetal. There is no demonstrated mass lesion. Median liver stiffness measured 10.7 kPa. Gallbladder: The patient is status post cholecystectomy. Common Bile Duct (C.B.D.): The common bile duct measures 5.6 mm. Pancreas: There is normal echogenicity of the visualized pancreas. There is no demonstrated pancreatic mass or cyst. Right Kidney: Normal size of the right kidney. The right kidney measures 11 cm x 5.5 cm x 5.8 cm. Normal renal cortex. The right cortex measures 1.8 cm. There is no demonstrated renal mass or cyst. There is no right hydronephrosis. US/ABD Limited w/ Elastography IMPRESSION: 1. Liver stiffness measures 10.7 kPa compatible with F2-F3 (Mild to moderate liver fibrosis) Metavir score. Electronically Signed: Jerome Alicea MD at 10:32 EDT ,
== END | disposition home or self-care (01) ==
LOC: US 09:06
PROVIDERS: PCP Nurse Practitioner Family; Referring Provider Internal Medicine Gastroenterology; Visit Provider Internal Medicine Gastroenterology
DX: K59.09 Other constipation (principal); K76.0 Fatty (change of) liver, not elsewhere classified
CPT/HCPCS: 76705; 76981

== ENCOUNTER → 2023-08-05 | Outpatient (CLI) | payer OTHER, SELFPAY ==
--- NOTE | 2023-08-05 18:08 | STRESSREP ---
Stress Test Report Exercise stress test. 47-year-old lady with a history of chest pain Stress protocol: Resting EKG demonstrates normal sinus rhythm with a rate of 61 bpm resting blood pressure is 124/82 mmHg. The patient exercised according to the regular Alex protocol for a total duration of 10 minutes attaining a maximum heart rate of 160 bpm which was 91% of maximum predicted heart rate; the maximum workload was 13.3 metabolic equivalents. At rest there were no ST or T wave changes noted to suggest ischemia and at peak exercise upsloping ST changes only were noted which did not meet the criteria for ischemia. No clinical angina was noted the test was terminated due to the target heart rate being achieved/fatigue. The peak blood pressure was 174/94 mmHg. Rate-pressure product was 24,000. Conclusion: Exercise stress test with no EKG criteria for ischemia at a high workload. Excellent functional capacity. No clinical angina noted.
== END | disposition home or self-care (01) ==
LOC: CVS 10:37
PROVIDERS: PCP Nurse Practitioner Family; Referring Provider Nurse Practitioner Family; Visit Provider Nurse Practitioner Family
DX: R07.9 Chest pain, unspecified (principal)
CPT/HCPCS: 93017

== ENCOUNTER → 2023-10-30 | Outpatient (CLI) | payer OTHER, SELFPAY ==
[2023-10-30 12:26] LABS: Erythrocyte Sedimentation Rate 6 mm/hr (0-30)
[2023-10-30 12:28] LABS: Absolute Lymphocyte Count 2.37 X10^3/uL (0.83-4.51); Absolute Neutrophil Count 5.3 X10^3/uL (2.0-7.7); Basophil# 0.11 X10^3/uL; Basophil% 1.3 % (0-1); Eosinophil# 0.09 X10^3/uL; Eosinophils% 1.1 % (0-5); Hematocrit 42.8 % (37-47); Hemoglobin 14.4 g/dL (12.0-15.0); Lymphocyte # 2.37 X10^3/ul (0.83-4.51); Lymphocyte % 28.1 % (19-41); Mean Corp Hgb Conc 33.6 g/dL (32-36); Mean Corpuscular Hgb 30.3 pg (27.0-32.0); Mean Corpuscular Volume 89.9 fL (81-99); Mean Platelet Vol. 10.2 fl (6.2-12.0); Monocyte# 0.56 X10^3/uL; Monocyte% 6.6 % (0-10); NRBC Flagged by Analyzer 0 % (0-5); Neutrophil # 5.27 X10^3/uL (2.7-7.7); Neutrophil % 62.5 % (47-70); Platelet Count 303 K/mm3 (150-450); RBC Distribution Width CV 12.9 % (11.6-14.6); Red Blood Count 4.76 M/mm3 (4.2-5.4); White Blood Count 8.4 K/mm3 (4.4-11.0)
[2023-10-30 12:58] LABS: Vitamin B12 > 2000 pg/mL (211-911); Vitamin D,25 Hydroxy 62.6 ng/mL
[2023-10-30 13:35] LABS: ALB/GLOB Ratio 0.9 RATIO (0.9-2.4); AST(SGOT) 21 U/L (15-37); Alanine Aminotransfer ALT/SGPT 22 U/L (13-56); Albumin, Serum 3.6 g/dL (3.2-5.0); Alkaline Phosphatase 70 U/L (45-117); Anion Gap 8 (5-15); BUN 7 mg/dL (7-18); BUN/Creat Ratio 12.1 RATIO (10-20); CRP < 2.90 mg/L (0.0-3.0); Calcium,Total 8.9 mg/dL (8.5-10.1); Chloride 105 mmol/L (98-107); Cholesterol 164 mg/dL (200); Creatinine, Serum 0.58 mg/dL (0.55-1.02); EST Glomerular Filtration Rate 120 mL/min (>60); Est Glom Filt Rate - Afr Amer 145 mL/min (>60); Globulin 3.8 g/dL (2.2-4.2); Glucose 87 mg/dL (74-106); High Density Lipoprotein 58 mg/dL; Potassium 3.9 mmol/L (3.5-5.1); Protein, Total 7.4 g/dL (6.4-8.2); Rheumatoid Factor < 10.0 IU/mL (<15); Sodium Level 138 mmol/L (136-145); Thyroid Stim Hormone (TSH) 1.64 uIU/mL (0.358-3.74); Triglycerides 83 mg/dL; Very Low Density Lipoprotein 17 mg/dL (5-40)
[2023-10-31 15:09] LABS: CCP IgG Antibodies 4 units (0-19); Lyme Scn Total Ab w/Rflx Negative (Negative)
[2023-10-31 21:07] LABS: Anti-Centromere B Ab <0.2 AI (0.0-0.9); Anti-Chromatin <0.2 AI (0.0-0.9); Anti-Jo <0.2 AI (0.0-0.9); Anti-Scleroderma-70 AB <0.2 AI (0.0-0.9); Anti-dsDNA Ab <1 IU/mL (0-9); Anti-ribosomal P Antibodies <0.2 AI (0.0-0.9); RNP Ab <0.2 AI (0.0-0.9); SJOGREN'S Anti-SS-A test < 0.2 AI (0.0-0.9); SJOGREN'S Anti-SS-B test < 0.2 AI (0.0-0.9); Smith Ab <0.2 AI (0.0-0.9); Smith/RNP Ab <0.2 AI (0.0-0.9)
== END | disposition home or self-care (01) ==
LOC: VSLAB 09:10
PROVIDERS: PCP Nurse Practitioner Family; Visit Provider Nurse Practitioner Family
DX: M25.50 Pain in unspecified joint (principal); I10 Essential (primary) hypertension; E56.9 Vitamin deficiency, unspecified
CPT/HCPCS: 36415; 80053; 80061; 82306; 82607; 84443; 85025; 85652; 86038; 86140; 86200; 86225; 86235; 86431; 86618

== ENCOUNTER → 2024-02-23 | Outpatient (CLI) | payer OTHER, SELFPAY ==
--- NOTE | 2024-02-23 15:19 | RAD_ITS ---
STUDY: X-RAY - LUMBAR SPINE REASON FOR EXAM: Female, 48 years old. low back pain -- flex/ext only TECHNIQUE: 2 view(s) of the lumbar spine were obtained. COMPARISON: 03/17/2023 FINDINGS: Normal lumbar lordosis. There is a normal alignment of the vertebrae. No subluxation on the flexion-extension views to suggest instability. Normal vertebral bodies and endplates. Normal disc space heights. The soft tissue structures are unremarkable. RAD/L/S Spine Bending Flex/Ext IMPRESSION: No instability on the lateral flexion and extension views. Electronically Signed: Mitesh Quintana MD at 9:08 EST ,
== END | disposition home or self-care (01) ==
PROVIDERS: PCP Nurse Practitioner Family; Referring Provider Student in an Organized Health Care Education/Training Program; Visit Provider Student in an Organized Health Care Education/Training Program
DX: M54.50 Low back pain, unspecified (principal)
CPT/HCPCS: 72120

== ENCOUNTER 2024-03-15 15:30 | Outpatient (RCR) | payer OTHER, SELFPAY ==
--- NOTE | 2024-03-01 12:56 | HP.PTEVAL_ITS ---
Patient's Visit Information Visit Information Visit Information: ANGELA BUI is a 48 year old F referred to Physical Therapy by CRISTY Sun with a diagnosis of Lumbar radiculopathy. Date of Evaluation: 02/25/24 Physical Therapist: Carter Benton DPT Visit Plan Frequency: 2x /Week Duration: 4 Weeks Plan: 1) slight progressive extension as long as she has reduced symptoms 2) Quad cat/cow, lumbar ROM 3) neutral spine core stability 4) may use US as needed for pain control. Subjective Subjective: Pt. is here today for her initial evaluation with diagnosis of lumbar radiculopathy. Pt. reports having pain in her lumbar spine that extends into her R thigh at times. Pt. has had pain for a a few years with intermittent pain. Pt. reports pain is currently in her lumbar spine and radiates laterally R worse than L. Pt. does have some pain that extends into her R thigh at times, but not constantly. Pt. denies n/T currently. Pt. reports no myotomal weakness noted. Pt. has not tried much exercises or ROM of her back as of now. 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 Pt. reports no R leg pain currently. She has increased stiffness in AMs, but her pain tends to increase throughout the day. Pt. is hopeful to reduce symptoms in order to complete all recreational and work activities without limitations. Pain Lumbar spine: Pain Intensity (Out of 10): 7 Pain Intensity Range: 3 and 9 Objective Objective: POSTURE: Pt. has slight flexed posture, increased thoracic kyphosis. Normal iliac crest heights noted. PALPATION: Pt. has tenderness with spring testing throughout lower lumbar spine. No marked radicular symptoms noted. NEURO: pt. has normal sensation and normal DTR of BLEs. Pt. is able to rise on heels and toes without issues. ROM: LUMBAR SPINE: flexion min loss increase NW, ext min/mod loss increase NW, SB min loss bilat increase NW, rotation min loss bilat increase NW, HS length mild tightness loss, hip flexor mild tightness. MMT: Pt. has 5/5 strength throughout BLEs. Poor+ core strength/stability. GAIT: Pt. has slight flexed posture. Normal NURIS, but methodical with minimal arm swing suggestive of guarding. Special Tests L/S Slump test left side: Negative L/S Slump test right side: Negative L/S Left Straight Leg Raise: Negative L/S Right Straight Leg Raise: Negative Lumbar Standing: Flexion - Mechanical Response: No effect Lumbar Standing: Flexion - Symptoms During Testing: Increases Lumbar Standing: Flexion - Symptoms After Testing: No worse Lumbar Standing: Extension - Mechanical Response: No effect Lumbar Standing: Extension - Symptoms During Testing: Increases Lumbar Standing: Extension - Symptoms After Testing: No worse Lumbar Standing: Right Side Glides - Mechanical Response: No effect Lumbar Standing: Right Side Acworth - Symptoms During Testing: No effect Lumbar Standing: Right Side [place] - Symptoms After Testing: No effect Lumbar Standing: Left Side [place] - Mechanical Response: No effect Lumbar Standing: Left Side [place] - Symptoms During Testing: No effect Lumbar Standing: Left Side [place] - Symptoms After Testing: No effect Lumbar Lying: Flexion - Mechanical Response: No effect Lumbar Lying: Flexion - Symptoms During Testing: Decreases Lumbar Lying: Flexion - Symptoms After Testing: No better Lumbar Lying: Extension - Mechanical Response: No effect Lumbar Lying: Extension - Symptoms During Testing: Increases Lumbar Lying: Extension - Symptoms After Testing: No worse Balance/Special Test Scores Oswestry Low Back Score: 20 Goals Goal 1:: LTG: Pt. to be I with HEP. Goal Time Frame: 4-6 Weeks Goal 2:: LTG: Pt. to have increased lumbar ROM to full without increase in symptoms. Goal Time Frame: 4-6 Weeks Goal 3:: STG: Pt. to have symptoms reduced to 0-2/10 pain in lumbar spine and R LE. Goal Time Frame: 2-4 Weeks Goal 4:: LTG: Pt. to have increased core strength to fair+ throughout. Goal Time Frame: 4-6 Weeks Rehabilitation Potential Physical Therapy Diagnosis: Pt. has signs and symptoms consistent with lumbar radiculopathy. Pt. did not have any radicular symptoms currently, but does report increased symptoms by the end of her work days. Pt. has occasional R LE symptoms to anterior thigh. She has marked hypomobility, weakness, increased pain and difficulty with ADLs. Rehabilitation Potential: Good Anticipated Interventions Patient/Client Instruction: Educate patient on: Condition, Plan of Care, Risk Factors and Benefits of Fitness Program For the Purpose of:: To foster healthy habits, To improve decision making, To facilitate caregiver knowledge and To prevent re-injury Therapeutic Exercise to Include: Strength training, Power training, Coordination, Body mechanics, Postural training, Passive ROM and Active ROM For the Purpose of:: To decrease pain, To increase ROM, To improve nutrient del alonso to tissue, To increase oxygenation perfusion, To improve muscle performance and motor function, To improve ability to perform ADL's, To increase tolerance to activity/condition/position, To improve health of tissue, To decrease soft tissue restriction and To increase flexibility/ROM Manual Therapy Techniques to Include: Mobilization and Soft tissue mobilization For the Purpose of:: To decrease pain, To decrease swelling/inflammation, To increase ROM, To improve nutrient delivery to tissue, To increase oxygenation perfusion and To improve muscle performance and motor function Cryotherapy (ice pack, ice massage): Yes Ultrasound (thermal/non thermal): Yes For the Purpose of:: To decrease pain, To increase ROM and To improve nutrient delivery to tissue Text: Thank you for the opportunity to evaluate your patient. For Medicare and Medicare HMO plans, please review the plan of care and approve it. It will need to be FAXED BACK to us at [phone] for Medicare purposes. For Medicare only, by signing this I certify the plan of care. Please let me know if there are questions or concerns regarding this plan of care. Physician Signature: Date:____
--- NOTE | 2024-03-16 08:13 | HP.PTREVAL ---
Re-Evaluation Intro: CRISTY Sun, It has been my pleasure to treat ANGELA BUI over the last 5 visits for Lumbar radiculopathy. Please see the progress note below for an update on the physical therapy plan of care! Subjective Subjective: Pt. reports overall still having a lot of pain. Pt. is to have an MRI on 03/22. Pt. reports being 25% better. Objective Objective/Function: ROM: PT. has full ROM of her Lumbar spine, but does have some increased pain with rotation and SB bilaterally. Not much pain with flexion or extension this date. MMT: pt. has some marked weakness in her RLE compared to LLE. Pt. 5-/5 on R side 5/5 on L side. Pt. continues to have high levels of pain with lifting, prolonged walking. She has recently changed positions which has helped with her back due to reduced lifting. I would recommend that she hold off on PT until having MRI to determine cause of symptoms. Pt. consents. Plan Plan Plan: Pt. on hold until after MRI. Balance/Gait/Functional tests Balance/Special Test Scores Oswestry Low Back Score: 14 Goals Goals Goal 1:: LTG: Pt. to be I with HEP. Goal Time Frame: 4-6 Weeks Goal Progress: Progressing Goal 2:: LTG: Pt. to have increased lumbar ROM to full without increase in symptoms. Goal Time Frame: 4-6 Weeks Goal Progress: Progressing Goal 3:: STG: Pt. to have symptoms reduced to 0-2/10 pain in lumbar spine and R LE. Goal Time Frame: 2-4 Weeks Goal Progress: Not Progressing Goal 4:: LTG: Pt. to have increased core strength to fair+ throughout. Goal Time Frame: 4-6 Weeks Goal Progress: Progressing Anticipated Interventions Anticipated Interventions Patient/Client Instruction: Educate patient on: Condition, Plan of Care, Risk Factors and Benefits of Fitness Program For the Purpose of:: To foster healthy habits, To improve decision making, To facilitate caregiver knowledge and To prevent re-injury Therapeutic Exercise to Include: Strength training, Power training, Coordination, Body mechanics, Postural training, Passive ROM and Active ROM For the Purpose of:: To decrease pain, To increase ROM, To improve nutrient delivery to tissue, To increase oxygenation perfusion, To improve muscle performance and motor function, To improve ability to perform ADL's, To increase tolerance to activity/condition/position, To improve health of tissue, To decrease soft tissue restriction and To increase flexibility/ROM Manual Therapy Techniques to Include: Mobilization and Soft tissue mobilization For the Purpose of:: To decrease pain, To decrease swelling/inflammation, To increase ROM, To improve nutrient delivery to tissue, To increase oxygenation perfusion and To improve muscle performance and motor function Cryotherapy (ice pack, ice massage): Yes Ultrasound (thermal/non thermal): Yes For the Purpose of:: To decrease pain, To increase ROM and To improve nutrient delivery to tissue Re-Evaluation Ending Re-evaluation ending: Please do not hesitate to contact me at [phone] by phone or if you have questions or concerns regarding this new plan of care! Sincerely, KARI CoburnT
== END 2024-03-15 19:00 | disposition home or self-care (01) ==
LOC: PT 15:30
PROVIDERS: PCP Nurse Practitioner Family; Referring Provider Student in an Organized Health Care Education/Training Program; Visit Provider Student in an Organized Health Care Education/Training Program
DX: M54.16 Radiculopathy, lumbar region (principal)
CPT/HCPCS: 97035; 97110; 97161; 97530

== ENCOUNTER → 2024-03-22 | Outpatient (CLI) | payer OTHER, SELFPAY | END | disposition home or self-care (01) | LOC: MRI 14:24 | PROVIDERS: PCP Nurse Practitioner Family; Referring Provider Student in an Organized Health Care Education/Training Program; Visit Provider Student in an Organized Health Care Education/Training Program | DX: M54.16 Radiculopathy, lumbar region (principal) | CPT/HCPCS: 72148 ==

== ENCOUNTER → 2024-03-25 | Outpatient (CLI) | payer OTHER, SELFPAY ==
--- NOTE | 2024-03-25 10:45 | BI_ITS ---
MAMMOGRAPHY - BILATERAL SCREENING REASON FOR EXAM: Female, 48 years old. Routine annual screening examination. PERTINENT HISTORY: Grandmother with breast cancer. TECHNIQUE: Digital bilateral breast emre (3D mammographic acquisition) in the CC and MLO projections. 2-D mediolateral oblique (MLO) and craniocaudad (CC) views of both breasts were obtained. CAD: Full Field Digital Mammography with Computer Added Detection was performed. COMPARISON: Comparison is made with prior study dated June 12, 2022 and February 12, 2021. FINDINGS: Breast Composition: The breasts are heterogeneously dense, which may obscure small masses. There are no dominant masses or suspicious calcifications. Stable small benign-appearing bilateral axillary lymph nodes. No other significant abnormalities are identified. There has been no significant change since the prior study. BI/SCRN MAMM (CAD)W/EMRE BILAT IMPRESSION: Stable bilateral screening mammogram. Yearly follow-up mammogram recommended. (A) ASSESSMENT CATEGORY: BIRADS Category 2: Benign. A letter regarding these results will be sent to the patient by the facility within 30 days. Approximately 10% of breast cancers are not detected by mammography. A normal mammogram should not delay biopsy of a clinically suspicious abnormality. [id number] Electronically Signed: Jerome Alicea MD at 12:21 EST ,
== END | disposition home or self-care (01) ==
LOC: OPBI 10:43
PROVIDERS: PCP Nurse Practitioner Family; Referring Provider Nurse Practitioner Family; Visit Provider Nurse Practitioner Family
DX: Z12.31 Encounter for screening mammogram for malignant neoplasm of breast (principal)
CPT/HCPCS: 77063; 77067

== ENCOUNTER 2024-05-19 06:15 | Day surgery (SDC) | payer OTHER, SELFPAY ==
--- NOTE | 2024-05-18 15:55 | PAT.ANESEVAL ---
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 When Was Last Pacemaker Check QUESTION #4 FULL TEXT: You/Your Family Experience fever (hyperthermia) with Anesthesia Last Oral Intake Last Oral intake: Last Oral Intake NPO since Meds taken in AM with sips of water? Meds patient instructed to take am of surgery PONV PONV - international trade specialist: PONV - international trade specialist Female Yes 05/18/24 11:20 HX of Motion Sickness No 05/18/24 11:20 HX of N/V After Surgery No 05/18/24 11:20 Non-Smoker Yes 05/18/24 11:20 Duration of Surgery greater No 05/18/24 11:20 than 60 minutes Number of Risk Factors 2 05/18/24 11:20 PONV Score Moderate Risk 05/18/24 11:20 Height & Weight Height & Weight: Anesthesia: Height & Weight Height 5 ft 4 in 12/30/23 15:51 Respiratory Assessment Respiratory Assessment - international trade specialist: Respiratory Tract Infection Hx - international trade specialist Hx Respiratory Tract Infection No 05/18/24 11:20 STOP Sleep Apnea STOP Sleep Apnea - international trade specialist: STOP Sleep Apnea - international trade specialist Hx Hypertension Yes: CONTROLLED WITH MED 05/18/24 11:20 Hx Sleep Apnea Yes 05/18/24 11:20 CPAP Yes 05/18/24 11:20 BIPAP No 05/18/24 11:20 Do you snore loudly (louder than talking or can be heard Do you often feel tired/ fatigued/ sleepy during daytime? Has anyone observed you stop breathing during sleep? STOP Results Positive 05/18/24 11:20 QUESTION #5 FULL TEXT : Do you snore loudly (louder than talking or can be heard through closed doors)? 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 - international trade specialist: Tobacco Use History - international trade specialist Tobacco Use Smoking Status Never smoker 05/18/24 11:20 Hx Tobacco Use No 05/18/24 11:20 Years Smoking Packs Smoked per Day Smoking Cessation Date was within the last 15 years Hx Smoking Cessation Date Hx Smoking Cessation Counseling Hematologic Medial History Hematologic Hx - international trade specialist: Hematologic Medical Hx - director supply Hx of Blood Transfusion No 05/18/24 11:20 Hx of Transfusion in last 3 No 05/18/24 11:20 Months Date of Last Transfusion (if within last 3 months) Ever experience any problems No 05/18/24 11:20 with transfusion(s)? Specify any problems Hx of Preganancy in last 3 No 05/18/24 11:20 Months Nurse Filling Out Transfusion DSCHRIBER 05/18/24 11:20 & Questions: Date: 05/18/24 05/18/24 11:20 Time: 11:22 05/18/24 11:20 Patient unable to answer at this time (ie. confused, unrespo /Reproduction History /Reproductive History - international trade specialist: /Reproductive Hx- international trade specialist Hx Now Gestational Age (in weeks): EDC: Hx Hx Para Hx Section SAB No 05/18/24 11:20 PFS Medical History (Updated 04/09/24 @ 15:[address] Joaquin Boyce MD) Blood disorder Syncope MGUS (monoclonal gammopathy of unknown significance) Colon cancer screening GI bleed Mass of skin of left lower leg Wears glasses Thyroid disease Low iron Migraine headache History of hiatal hernia History of IBS Non-smoker Vocal cord dysfunction Hypertension URI (upper respiratory infection) Suspected COVID-19 virus infection Breast cancer screening Localized swelling on left hand Chronic constipation Elevated blood pressure reading in office without diagnosis of hypertension Hemangioma Preventative health care Chronic left hip pain Right thyroid nodule GERD (gastroesophageal reflux disease) Essential hypertension DM 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 Home Medications ?Medication ?Instructions ?Recorded ?Last Taken ?Type calcium carbonate (Calcium 600) 600 mg PO DAILY 09/25/20 Unknown History cholecalciferol (vitamin D3) 10 10 mcg PO DAILY 09/25/20 Unknown History mcg (400 unit) capsule cyanocobalamin (vitamin B-12) 50 50 mcg PO DAILY 09/25/20 Unknown History mcg tablet (Vitamin B-12) magnesium 200 mg tablet 200 mg PO DAILY 09/25/20 Unknown History potassium 99 mg PO DAILY 12/15/20 Unknown History sumatriptan succinate 50 mg tablet See Rx Instructions PO .COMPLEX 07/24/21 Unknown Rx (Imitrex) #14 tabs linaclotide 290 mcg capsule 290 mcg PO DAILY PRN PRN Diarrhea 09/05/22 Unknown Rx (Linzess) #90 caps cyclobenzaprine 10 mg tablet See Rx Instructions .Route 01/29/23 Unknown Rx .COMPLEX #60 tabs ferrous sulfate 325 mg (65 mg 325 mg PO DAILY 04/01/23 05/15/24 History iron) tablet amlodipine 5 mg tablet 5 mg PO QHS 04/18/23 Unknown History fexofenadine 180 mg tablet 180 mg PO DAILY 04/18/23 Unknown History (Aller-Fex) hydroxyzine HCl 25 mg tablet 25 mg PO PRN PRN itching 04/18/23 Unknown History buspirone 5 mg tablet 7.5 mg PO TID 09/12/23 Unknown History ursodiol 250 mg tablet 250 mg PO BID #60 tabs 09/12/23 Unknown Rx semaglutide 1 mg/dose (4 mg/3 mL) 1 mg subcut QWEEK 12/30/23 05/06/24 History subcutaneous pen injector pantoprazole 40 mg tablet,delayed 40 mg PO BID #120 TABLETS 03/17/24 Unknown Rx release sucralfate 1 gram tablet 1 g PO TIDAC 30 days #90 tabs 03/17/24 Unknown Rx Allergy/AdvReac Type Severity Reaction Status Date / Time NSAIDS (Non-Steroidal Allergy unknown Verified 05/18/24 11:18 Anti-Inflamma Penicillins Allergy Rash Verified 05/18/24 11:18 sulfamethoxazole (From Allergy rash Verified 05/18/24 11:18 Bactrim) trimethoprim (From Bactrim) Allergy rash Verified 05/18/24 11:18 Family History Aunt Cancer uterine cancer Brother Asthma Sister Autoimmune disorder Other Breast cancer Diabetes Heart disease Hypertension Myocardial infarction Parkinson disease Surgical History (Updated 05/18/24 @ 11:25 by Gina Murry) Hx of colonoscopy History of esophagogastroduodenoscopy (EGD) History of surgical removal of ganglion cyst History of hysterectomy Gastric bypass status for obesity H/O section S/P thyroid surgery Hx of cholecystectomy Social History Smoking Status: Never smoker Audit: Pertinent Findings Pertinent Findings EKG Perinent findings: April 22, 2023. Normal sinus rhythm. Stress test pertinent findings: August 05, 2023. No EKG criteria for ischemia at a high workload. METS are 13.3. Recommendation Anesthesia Recommendation Anesthesia recommendation: OPTIMIZED for anesthesia
[2024-05-19] VITALS (8 sets, daily range): BP systolic 113–128; BP diastolic 69–77; PULSE 70–81; RESP 14–16; TEMP 36.4–36.7; O2SAT 96–100; BMI 34.4
--- NOTE | 2024-05-19 06:45 | PRE.ANES_ITS ---
ASA Classification* ASA Classification ASA Classification: 2 Assessment & Plan Anesthesia* Anesthesia Assessment Anesthesia Assessment: Discussed sedation and/or anesthesia options, risks, benefits, and alternatives with patient/parents/legal guardian/POA. Questions invited. The patient/parents/legal guardian/POA seems to understand and agrees to proceed with anesthesia plan. Reviewed the physical assessment, medical history, allergy history and patient home medications list prior to surgery/procedure/anesthetic and documented any changes. Performed airway and anesthesia risk assessments. Anesthesia Type Anesthesia Type: MAC History Source History Obtained from:: Patient and Chart Anesthesia Focused Assessment* Temperature: 97.5 F Pulse Rate: 71 Blood Pressure: 128/77 Respiratory Rate: 16 Pulse Ox: 100 Airway Assessment Mouth opens: >3 cm Mallampati Score: II Teeth Condition: Intact Neck Range of motion (ROM): Full ROM Focused Labs Anesthesia Preop lab: CBC WBC 8.1 K/mm3 (4.4-11.0) 12/23/23 07:40 RBC 4.75 M/mm3 (4.2-5.4) 12/23/23 07:40 Hgb 14.5 g/dL (12.0-15.0) 12/23/23 07:40 Hct 42.9 % (37-47) 12/23/23 07:40 Plt Count 303 K/mm3 (150-450) 12/23/23 07:40 CHEMISTRY Potassium 3.7 mmol/L (3.5-5.1) 12/23/23 07:40 Sodium 139 mmol/L (136-145) 12/23/23 07:40 Magnesium 2.1 mg/dL (1.6-2.6) 03/07/23 12:15 Phosphorus 3.6 mg/dL (2.5-4.9) 12/13/22 06:06 BUN 8 mg/dL (7-18) 12/23/23 07:40 Creatinine 0.58 mg/dL (0.55-1.02) 12/23/23 07:40 Glucose 101 mg/dL (74-106) 12/23/23 07:40 TSH 1.64 uIU/mL (0.358-3.74) 10/30/23 09:11 COAG PT 13.3 SECONDS (11.7-14.9) 07/07/23 14:19 Pre-Assessment Diagnosis/Proposed Procedure Planned Operative Procedure(s): EGD Anesthesia History Anesthesia History - financial foundations representative: Anesthesia History - financial foundations representative Hx Hospitalization No 05/18/24 11:20 Any Problems With Anesthesia Yes: NAUSEA/NO PROBLEM WITH 05/18/24 11:20 PRIOR EGD/CSCOPE Cholinesterase deficiency No 05/18/24 11:20 You/Your Family Experience No 05/18/24 11:20 fever (hyperthermia) with Relationship Recent Exposure to Contagious No 05/19/24 06:38 Disease Does patient have nerve No 05/18/24 11:20 stimulator Patient instructed to have device shut off --Does patient have Pacemaker No 05/19/24 06:38 or ICD? When Was Last Pacemaker Check QUESTION #4 FULL TEXT: You/Your Family Experience fever (hyperthermia) with Anesthesia Last Oral Intake Last Oral intake: Last Oral Intake NPO since 23:30 05/19/24 06:38 Meds taken in AM with sips of water? Meds patient instructed to PROTONIX 05/19/24 06:38 take am of surgery PONV PONV - financial foundations representative: PONV - financial foundations representative Female Yes 05/18/24 11:20 HX of Motion Sickness No 05/18/24 11:20 HX of N/V After Surgery No 05/18/24 11:20 Non-Smoker Yes 05/18/24 11:20 Duration of Surgery greater No 05/18/24 11:20 than 60 minutes Number of Risk Factors 2 05/18/24 11:20 PONV Score Moderate Risk 05/18/24 11:20 Height & Weight Height & Weight: Anesthesia: Height & Weight Height 5 ft 4 in 05/19/24 06:38 Weight: 91 kg 05/19/24 06:38 Body Mass Index (BMI) 34.4 05/19/24 06:38 Respiratory Assessment Respiratory Assessment - financial foundations representative: Respiratory Tract Infection Hx - financial foundations representative Hx Respiratory Tract Infection No 05/18/24 11:20 STOP Sleep Apnea STOP Sleep Apnea - financial foundations representative: STOP Sleep Apnea - financial foundations representative Hx Hypertension Yes: CONTROLLED WITH MED 05/18/24 11:20 Hx Sleep Apnea Yes 05/18/24 11:20 CPAP Yes 05/18/24 11:20 BIPAP No 05/18/24 11:20 Do you snore loudly (louder than talking or can be heard Do you often feel tired/ fatigued/ sleepy during daytime? Has anyone observed you stop breathing during sleep? STOP Results Positive 05/18/24 11:20 QUESTION #5 FULL TEXT : Do you snore loudly (louder than talking or can be heard through closed doors)? 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 Specify any problems Hx of Preganancy in last 3 No 05/18/24 11:20 Months Nurse Filling Out Transfusion DSCHRIBER 05/18/24 11:20 & Questions: Date: 05/18/24 05/18/24 11:20 Time: 11:22 05/18/24 11:20 Patient unable to answer at this time (ie. confused, unrespo /Reproduction History /Reproductive History - financial foundations representative: /Reproductive Hx- financial foundations representative Hx Now Gestational Age (in weeks): EDC: Hx Hx Para Hx Section SAB No 05/18/24 11:20 PFSH Medical History Blood disorder Syncope MGUS (monoclonal gammopathy of unknown significance) Colon cancer screening GI bleed Mass of skin of left lower leg Wears glasses Thyroid disease Low iron Migraine headache History of hiatal hernia History of IBS Non-smoker Vocal cord dysfunction Hypertension URI (upper respiratory infection) Suspected COVID-19 virus infection Breast cancer screening Localized swelling on left hand Chronic constipation Elevated blood pressure reading in office without diagnosis of hypertension Hemangioma Preventative health care Chronic left hip pain Right thyroid nodule GERD (gastroesophageal reflux disease) Essential hypertension DM 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 Home Medications ?Medication ?Instructions ?Recorded ?Last Taken ?Type calcium carbonate (Calcium 600) 600 mg PO DAILY 09/25/20 05/18/24 History cholecalciferol (vitamin D3) 10 10 mcg PO DAILY 09/25/20 05/18/24 History mcg (400 unit) capsule cyanocobalamin (vitamin B-12) 50 50 mcg PO DAILY 09/25/20 05/18/24 History mcg tablet (Vitamin B-12) magnesium 200 mg tablet 200 mg PO DAILY 09/25/20 05/18/24 History potassium 99 mg PO DAILY 12/15/20 05/18/24 History sumatriptan succinate 50 mg tablet See Rx Instructions PO .COMPLEX 07/24/21 05/18/24 Rx (Imitrex) #14 tabs linaclotide 290 mcg capsule 290 mcg PO DAILY PRN PRN Diarrhea 09/05/22 05/18/24 Rx (Linzess) #90 caps cyclobenzaprine 10 mg tablet See Rx Instructions .Route 01/29/23 Unknown Rx .COMPLEX #60 tabs ferrous sulfate 325 mg (65 mg 325 mg PO DAILY 04/01/23 05/15/24 History iron) tablet amlodipine 5 mg tablet 5 mg PO QHS 04/18/23 05/18/24 History fexofenadine 180 mg tablet 180 mg PO DAILY 04/18/23 05/18/24 History (Aller-Fex) hydroxyzine HCl 25 mg tablet 25 mg PO PRN PRN itching 04/18/23 Unknown History buspirone 5 mg tablet 7.5 mg PO TID 09/12/23 05/18/24 History ursodiol 250 mg tablet 250 mg PO BID #60 tabs 09/12/23 05/18/24 Rx semaglutide 1 mg/dose (4 mg/3 mL) 1 mg subcut QWEEK 12/30/23 05/06/24 History subcutaneous pen injector pantoprazole 40 mg tablet,delayed 40 mg PO BID #120 TABLETS 03/17/24 05/19/24 Rx release sucralfate 1 gram tablet 1 g PO TIDAC 30 days #90 tabs 03/17/24 05/18/24 Rx Allergy/AdvReac Type Severity Reaction Status Date / Time NSAIDS (Non-Steroidal Allergy unknown Verified 05/19/24 06:32 Anti-Inflamma Penicillins Allergy Rash Verified 05/19/24 06:32 sulfamethoxazole (From Allergy rash Verified 05/19/24 06:32 Bactrim) trimethoprim (From Bactrim) Allergy rash Verified 05/19/24 06:32 Family History Aunt Cancer uterine cancer Brother Asthma Sister Autoimmune disorder Other Breast cancer Diabetes Heart disease Hypertension Myocardial infarction Parkinson disease Surgical History (Updated 05/18/24 @ 11:25 by Gina Murry) Hx of colonoscopy History of esophagogastroduodenoscopy (EGD) History of surgical removal of ganglion cyst History of hysterectomy Gastric bypass status for obesity H/O section S/P thyroid surgery Hx of cholecystectomy Social History Smoking Status: Never smoker Review of Systems (Anesthesia) ROS Narrative System reviewed and no additional complaints, except as documented.
--- NOTE | 2024-05-19 07:30 | EGD_PTH ---
PATIENT: ANGELA BUI LOC: EN U#:[id number] AGE/SX: 48/F ROOM: RE05/19/[address]: Dr. Ramez Villatoro DO : 1975 BED: DIS: 05/19/2024 SPEC #: [id number] RECD: 05/19/24 11:25 STATUS: RAY ALY #: [id number] JABIER: 05/19/24 07:[address]: Ramez Villatoro DEPT: SURGICAL PATHOLOGY RECD BY: Chioma Gunderson ENTERED: 05/19/24 12:20 SP TYPE: EGD BIOPSY MIRA DR: Giancarlo Posadas, REVENUE MANAGER-C Tissues: COLON BIOPSY Procedures: Surgery Specimen Level IV HEADER OPERATION: EGD biopsy PRE-OP DIAGNOSIS: GI bleed TISSUE SUBMITTED: Anastomosis biopsy MICROSCOPIC DIAGNOSIS Anastomosis, biopsy: Fragments of gastric and small intestinal mucosa with mild chronic inflammation, congestion and hemorrhage. See comment. 05/20/2024 COMMENT Immunohistochemistry for H.pylori can be performed if clinically indicated. Please notify the laboratory if it is needed. MICROSCOPIC DESCRIPTION Slides are reviewed. GROSS DESCRIPTION Received in fixative is one container labeled with the patient's name and designated Anastomosis biopsy. The specimen consists of multiple irregular fragments of light quesada soft tissue that in aggregate measure 1.6 x 0.4 x 0.3 cm. The specimen is totally submitted in one cassette. 05/19/2024 TC:3 CPT:52581
--- NOTE | 2024-05-19 07:44 | PCM.HP.STD ---
HPI - General General Date of Admission: 05/19/24 Date of Service: 05/19/24 HPI Narrative ANGELA BUI, is a 48 F who presents for endoscopic evaluation trouble swallowing, constipation, diarrhea, abdominal pain, and nausea. BM 2-3 days a week. Continues semaglutide, ursodiol, pantoprazole, sucralfate, and Linzess daily. WSA established for dysphagia.?EGD 03.22.22?Shayy-en-Y gastrojejunostomy; non-bleeding gastric ulcer, mild gastritis; irregular Zline 33cm; tortuous esophagus. Metaplasia, H.Pylori neg.?Start sucralfate.? *[facility] hospitalization 10.29.22-11.01.22 with syncope/fall and BRBPR with anemia, acute migraine, and chronic conditions of obesity s/p shayy-en0y gastrojejunostomy, HTN, hyperglycemia (A1c 5.8), hypokalemia.?CT abd/pel 10.29.22 with contrast?hepatic steatosis; s/p cholecystectomy and gastric bypass; distal gastric/duodenal wall thickening?EGD 10.29.22?Shayy-en-Y gastrojejunostomy with ulceration, heater probe; two 3mm bleeding AVM, heater probe. No specimens.? OV 04.11.23- Pt stable since hosp visit in October. The last few weeks has had an increase in mid abdominal pain. Will sometimes feel nauseous when eating. Sometimes eating makes the abdominal pain worse. BM are normal. EGD and Colonoscopy 04.24.23 EGD - Z-line variable, 39 cm from the incisors. Biopsied. Shayy-en-Y gastrojejunostomy with gastrojejunal anastomosis characterized by erythema. Biopsied. Normal examined jejunum. Biopsied. Colon - Preparation of the colon was fair. Diverticulosis in the recto-sigmoid colon and in the sigmoid colon. Stool in the recto-sigmoid colon, in the sigmoid colon and in the ascending colon. The entire examined colon is normal on direct and retroflexion views. The examination was otherwise normal on direct and retroflexion views. No specimens collected. OV 24 Pt reports that she is having a bm once a day, but does not feel like she is having a complete bm. Pt reports that she bloats after she every time eats, no matter what she eats. Pt continues with buspirone, linzess, pantoprazole, and sucralfate. OV 11. Pt reports alternating bm with constipation and diarrhea. SHe continues with Linzess and miralax. SHe feels stable and like it has improved overall. She has been having stabbing epigastric pain that feel similar to when she had an ulcer. SHe takes PPI BID and sucralfate. sucralfate 1 g PO TIDAC 30 days 90 tabs 11RF pantoprazole 40 mg PO BID 120 TABLETS 3RF PFSH Medical History Blood disorder Syncope MGUS (monoclonal gammopathy of unknown significance) Colon cancer screening GI bleed Mass of skin of left lower leg Wears glasses Thyroid disease Low iron Migraine headache History of hiatal hernia History of IBS Non-smoker Vocal cord dysfunction Hypertension URI (upper respiratory infection) Suspected COVID-19 virus infection Breast cancer screening Localized swelling on left hand Chronic constipation Elevated blood pressure reading in office without diagnosis of hypertension Hemangioma Preventative health care Chronic left hip pain Right thyroid nodule GERD (gastroesophageal reflux disease) Essential hypertension DM 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 Home Medications ?Medication ?Instructions ?Recorded ?Last Taken ?Type calcium carbonate (Calcium 600) 600 mg PO DAILY 09/25/20 05/18/24 History cholecalciferol (vitamin D3) 10 10 mcg PO DAILY 09/25/20 05/18/24 History mcg (400 unit) capsule cyanocobalamin (vitamin B-12) 50 50 mcg PO DAILY 09/25/20 05/18/24 History mcg tablet (Vitamin B-12) magnesium 200 mg tablet 200 mg PO DAILY 09/25/20 05/18/24 History potassium 99 mg PO DAILY 12/15/20 05/18/24 History sumatriptan succinate 50 mg tablet See Rx Instructions PO .COMPLEX 07/24/21 05/18/24 Rx (Imitrex) #14 tabs linaclotide 290 mcg capsule 290 mcg PO DAILY PRN PRN Diarrhea 09/05/22 05/18/24 Rx (Linzess) #90 caps cyclobenzaprine 10 mg tablet See Rx Instructions .Route 01/29/23 Unknown Rx .COMPLEX #60 tabs ferrous sulfate 325 mg (65 mg 325 mg PO DAILY 04/01/23 05/15/24 History iron) tablet amlodipine 5 mg tablet 5 mg PO QHS 04/18/23 05/18/24 History fexofenadine 180 mg tablet 180 mg PO DAILY 04/18/23 05/18/24 History (Aller-Fex) hydroxyzine HCl 25 mg tablet 25 mg PO PRN PRN itching 04/18/23 Unknown History buspirone 5 mg tablet 7.5 mg PO TID 09/12/23 05/18/24 History ursodiol 250 mg tablet 250 mg PO BID #60 tabs 09/12/23 05/18/24 Rx semaglutide 1 mg/dose (4 mg/3 mL) 1 mg subcut QWEEK 12/30/23 05/06/24 History subcutaneous pen injector pantoprazole 40 mg tablet,delayed 40 mg PO BID #120 TABLETS 03/17/24 05/19/24 Rx release sucralfate 1 gram tablet 1 g PO TIDAC 30 days #90 tabs 03/17/24 05/18/24 Rx Allergy/AdvReac Type Severity Reaction Status Date / Time NSAIDS (Non-Steroidal Allergy unknown Verified 05/19/24 06:32 Anti-Inflamma Penicillins Allergy Rash Verified 05/19/24 06:32 sulfamethoxazole (From Allergy rash Verified 05/19/24 06:32 Bactrim) trimethoprim (From Bactrim) Allergy rash Verified 05/19/24 06:32 Family History Aunt Cancer uterine cancer Brother Asthma Sister Autoimmune disorder Other Breast cancer Diabetes Heart disease Hypertension Myocardial infarction Parkinson disease Surgical History Hx of colonoscopy History of esophagogastroduodenoscopy (EGD) History of surgical removal of ganglion cyst History of hysterectomy Gastric bypass status for obesity H/O section S/P thyroid surgery Hx of cholecystectomy Social History Smoking Status: Never smoker ROS Constitutional Constitutional: Denies fatigue, fever(s), poor appetite, weight gain or weight loss Gastrointestinal Gastrointestinal: Denies belching, bloating, change in bowel habits, change in stool character, chewing difficulty, coffee ground emesis, constipation, cramping, diarrhea, dyspepsia, dysphagia, early satiety, excessive flatus, fecal incontinence, heartburn, hematemesis, hematochezia, hemorrhoids, loose stools, melena, nausea, odynophagia, rectal bleeding, tenesmus, vomiting or weight changes Vital Signs Vital Signs Vital Signs: 05/19/24 06:38 05/19/24 06:38 05/19/24 06:48 Temperature 97.5 F L 97.5 F L Temperature Source Temporal Pulse Rate 71 71 Respiratory Rate 16 16 Respiratory Pattern Normal Blood Pressure 128/77 H 128/77 H Blood Pressure Mean 94 Blood Pressure Source Monitor Blood Pressure Position Semi-Fowlers Blood Pressure Location Right Arm Pulse Ox 100 100 Oxygen Delivery Method Room Air Weight Weight: 200 lb 9.93 oz Body Mass Index (BMI) 34.4 Physical Exam Const alert, oriented x3, no apparent distress and healthy appearing General Appearance: cooperative GI normal to inspection, nondistended, normoactive bowel sounds, soft to palpation, non-tender and non-distended Percussion: normal to percussion Rectal Exam: deferred Assessment & Plan Assessment/Plan (1) Anemia: QUALIFIERS: Anemia type: unspecified type Qualified Code(s): D64.9 - Anemia, unspecified (2) History of gastric bypass: (3) Dysphagia: (4) GI bleed: QUALIFIERS: GI bleed type/associated pathology: gastrojejunal ulcer Qualified Code(s): K28.4 - Chronic or unspecified gastrojejunal ulcer with hemorrhage PLAN: Assessment and Plan Assessment and Plan (1) Chronic constipation: Status: Chronic Plan: This is a 48 yo female pt here today for follow up. SHe continues to have issues with his bowels but it is improved overall. SHe will continue with Linzess 290 mcg and miralax. Her main concern today is epigastric pain that feels similar to when she had a bleeding ulcer. SHe has no signs of bleeding. SHe will undergo repeat EGD to check back in. She will continue PPI and sucralfate in the mean time. -EGD -Continue Linzess and Miralax -Continue PPI and sucralfate -f/u in 6 months (2) GI bleed: Status: Acute Qualifiers: GI bleed type/associated pathology: gastrojejunal ulcer Qualified Code(s): K28.4 - Chronic or unspecified gastrojejunal ulcer with hemorrhage Comment: 10/2022 Medications: Refilled sucralfate 1 g PO TIDAC 30 days 90 tabs 11RF pantoprazole 40 mg PO BID 120 TABLETS 3RF
--- NOTE | 2024-05-19 08:13 | PCM.POST.ANE ---
Anesthesia: Postop Eval I Current Vital Signs Temperature: 98.1 F Pulse Rate: 81 Blood Pressure: 113/77 Respiratory Rate: 14 Pulse Ox: 98 Oxygen Delivery Method: Room Air Assessment Airway patent: Yes Spontaneous unlabored respirations: Yes Mental status: Awake and Calm nausea: No Vomiting: No Anesthesia Complication: No Fluid Hydration Crystalloid volume administer (ml): 30 Total IV fluid infused: 30 Progress Note Anesthesia document: Postop Eval 1 completed: Yes
--- NOTE | 2024-05-19 08:15 | OP.CCLET_ITS ---
05/19/2024 Giancarlo Posadas [facility], Resident Advisor-c Re : Upper GI endoscopy procedure for Catherine Jaramillo Dear Katharina This procedure was performed on Sunday, May 19, 2024. My impressions and recommendations are as follows: Impressions : - No gross lesions in the entire esophagus. - Medium-sized hiatal hernia. - Shayy-en-Y gastrojejunostomy with gastrojejunal anastomosis characterized by erythema, friable mucosa and inflammation. - No specimens collected. Recommendations : - Discharge patient to home. - Resume previous diet. - Continue present medications. - Await pathology results. My findings are described in the full procedure note, which is enclosed. If I can be of further assistance, please feel free to contact me at . Sincerely, Ramez Villatoro, 05/19/2024 8:14:19 AM This report has been signed electronically.
--- NOTE | 2024-05-19 08:15 | OP.EGD_ITS ---
Patient Name: Catherine Jaramillo Procedure Date: 05/19/2024 7:52 AM Date of : 1975 Age: 48 Procedure: Upper GI endoscopy Indications: Epigastric abdominal pain, Functional Dyspepsia, Dyspepsia, Indigestion Providers: Ramez Villatoro DO Referring MD: Giancarlo Posadas [facility], Manager Clinical Informatics-c Medicines: Monitored Anesthesia Care Patient Profile: This is a 48 year old female. Refer to note in patient chart for documentation of history and physical. Patient has symptoms of acute epigastric abdominal pain. Complications: No immediate complications. Procedure: Pre-Anesthesia Assessment: - Prior to the procedure, a History and Physical was performed, and patient medications and allergies were reviewed. The patient is competent. The risks and benefits of the procedure and the sedation options and risks were discussed with the patient. All questions were answered and informed consent was obtained. Patient identification and proposed procedure were verified by the physician in the pre-procedure area. Mental Status Examination: alert and oriented. Airway Examination: normal oropharyngeal airway and neck mobility. Respiratory Examination: clear to auscultation. CV Examination: normal. ASA Grade Assessment: II - A patient with mild systemic disease. After reviewing the risks and benefits, the patient was deemed in satisfactory condition to undergo the procedure. The anesthesia plan was to use monitored anesthesia care (MAC). Immediately prior to administration of medications, the patient was re-assessed for adequacy to receive sedatives. The heart rate, respiratory rate, oxygen saturations, blood pressure, adequacy of pulmonary ventilation, and response to care were monitored throughout the procedure. The physical status of the patient was re-assessed after the procedure. After obtaining informed consent, the endoscope was passed under direct vision. Throughout the procedure, the patient's blood pressure, pulse, and oxygen saturations were monitored continuously. The Endoscope was introduced through the mouth, and advanced to the jejunum. The upper GI endoscopy was accomplished without difficulty. The patient tolerated the procedure well. Scope In: 8:01:24 AM Scope Out: 8:05:15 AM Total Procedure Duration Time 0 hours 3 minutes 51 seconds Findings: No gross lesions were noted in the entire esophagus. A medium-sized hiatal hernia was present. Evidence of a Shayy-en-Y gastrojejunostomy was found. The gastrojejunal anastomosis was characterized by erythema, friable mucosa and inflammation. This was traversed. The [id number] limb was characterized by healthy appearing mucosa. The jejunojejunal anastomosis was characterized by healthy appearing mucosa. The vuahuqeu-ye-dwlzgij limb was not examined as it could not be found. The excluded stomach was not examined as it could not be found. Biopsies were taken with a cold forceps for histology. Verification of patient identification for the specimen was done. Estimated blood loss was minimal. Impression: - No gross lesions in the entire esophagus. - Medium-sized hiatal hernia. - Shayy-en-Y gastrojejunostomy with gastrojejunal anastomosis characterized by erythema, friable mucosa and inflammation. - No specimens collected. Recommendation: - Discharge patient to home. - Resume previous diet. - Continue present medications. - Await pathology results. Procedure Code(s): --- Professional --- 38039, Esophagogastroduodenoscopy, flexible, transoral; with biopsy, single or multiple CPT copyright 2021 [employer]. All rights reserved. The codes documented in this report are preliminary and upon clothes presser review may be revised to meet current compliance requirements. Ramez Villatoro DO 05/19/2024 8:14:19 AM This report has been signed electronically. Number of Addenda: 0 Note Initiated On: 05/19/2024 7:52 AM
--- NOTE | 2024-05-19 08:37 | PCM.POSTANE2 ---
Anesthesia Postop Eval I Sum Postop Eval Completion status Anesthesia document: Postop Eval 1 completed: Yes Anesthesia Postop Eval I Summary Anesthesia Postop Eval I Summary: Anesthesia Postop Eval I: Assessment Summary Airway patent Yes 05/19/24 08:13 [email or web address] Spontaneous unlabored Yes 05/19/24 08:13 [email or web address] respirations Mental status Awake,Calm 05/19/24 08:13 [email or web address] nausea No 05/19/24 08:13 [email or web address] Vomiting No 05/19/24 08:13 [email or web address] Anesthesia Postop Eval I: Fluid Summary Crystalloid volume administer 30 05/19/24 08:13 [email or web address] (ml) Colloids volume administered ( ml) Blood Product volume administered (ml) Total IV fluid infused 30 05/19/24 08:13 [email or web address] Anesthesia Postop Eval I: Summary Notes Anesthesia Complication No 05/19/24 08:13 [email or web address] Anesthesia Complication Comment: Post-operative progress note Anesthesia: Postop Eval II Evaluation Mental status: Awake Pain Level: 0 nausea: No Vomiting: No Complications Anesthesia Complication: No
== END 2024-05-19 08:58 | disposition home or self-care (01) ==
LOC: EN 06:17 → AC 06:17
PROVIDERS: PCP Nurse Practitioner Family; Referring Provider Nurse Practitioner Family; Visit Provider Internal Medicine Gastroenterology
PROC: 0DJ08ZZ Inspection of Upper Intestinal Tract, Via Natural or Artificial Opening Endoscopic (ICD-10-PCS; CPT 43235; principal; 2024-05-19 07:25)
DX: K91.89 Other postprocedural complications and disorders of digestive system (principal); E11.9 Type 2 diabetes mellitus without complications; D64.9 Anemia, unspecified; K44.9 Diaphragmatic hernia without obstruction or gangrene; K21.9 Gastro-esophageal reflux disease without esophagitis; I10 Essential (primary) hypertension; Z79.899 Other long term (current) drug therapy; Z98.84 Bariatric surgery status; K28.4 Chronic or unspecified gastrojejunal ulcer with hemorrhage; Z98.0 Intestinal bypass and anastomosis status
CPT/HCPCS: 43239; 88305; A4216; J2405

== ENCOUNTER → 2024-06-09 | Outpatient (CLI) | payer OTHER, SELFPAY | END | disposition home or self-care (01) | LOC: VSLAB 14:32 | PROVIDERS: PCP Nurse Practitioner Family; Visit Provider Nurse Practitioner Family | DX: M25.50 Pain in unspecified joint (principal) | CPT/HCPCS: 36415; 82533 ==

== ENCOUNTER 2024-07-26 08:41 | Day surgery (SDC) | payer OTHER, SELFPAY ==
--- NOTE | 2024-07-22 10:09 | PAT.ANESEVAL ---
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 When Was Last Pacemaker Check QUESTION #4 FULL TEXT: You/Your Family Experience fever (hyperthermia) with Anesthesia Last Oral Intake Last Oral intake: Last Oral Intake NPO since Meds taken in AM with sips of water? 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 general manager Female Yes 07/22/24 09:40 HX of Motion Sickness No 07/22/24 09:40 HX of N/V After Surgery Yes 07/22/24 09:40 Non-Smoker Yes 07/22/24 09:40 Duration of Surgery greater No 07/22/24 09:40 than 60 minutes Number of Risk Factors 3 07/22/24 09:40 PONV Score Moderate Risk 07/22/24 09:40 Height & Weight Height & Weight: Anesthesia: Height & Weight Height 5 ft 4 in 07/06/24 14:24 Respiratory Assessment Respiratory Assessment - dealership general manager: Respiratory Tract Infection Hx - dealership general manager Hx Respiratory Tract Infection No 07/22/24 09:40 STOP Sleep Apnea STOP Sleep Apnea - dealership general manager: STOP Sleep Apnea - dealership general manager Hx Hypertension Yes: CONTROLLED WITH MED 07/22/24 09:40 Hx Sleep Apnea Yes 07/22/24 09:40 CPAP Yes 07/22/24 09:40 BIPAP No 07/22/24 09:40 Do you snore loudly (louder than talking or can be heard Do you often feel tired/ fatigued/ sleepy during daytime? Has anyone observed you stop breathing during sleep? STOP Results Positive 07/22/24 09:40 QUESTION #5 FULL TEXT : Do you snore loudly (louder than talking or can be heard through closed doors)? 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 Specify any problems Hx of Preganancy in last 3 No 07/22/24 09:40 Months Nurse Filling Out Transfusion DSCHRIBER 07/22/24 09:40 & Questions: Date: 07/22/24 07/22/24 09:40 Time: 09:43 07/22/24 09:40 Patient unable to answer at this time (ie. confused, unrespo /Reproduction History /Reproductive History - dealership general manager: /Reproductive Hx- dealership general manager Hx Now No 07/22/24 09:40 Gestational Age (in weeks): EDC: Hx Hx Para Hx Section SAB No 07/22/24 09:40 PFSH Medical History (Updated 07/22/24 @ 09:46 by Gina Murry) Back pain Blood disorder Syncope MGUS (monoclonal gammopathy of unknown significance) Colon cancer screening GI bleed Mass of skin of left lower leg Wears glasses Thyroid disease Low iron Migraine headache History of hiatal hernia History of IBS Non-smoker Vocal cord dysfunction Hypertension URI (upper respiratory infection) Suspected COVID-19 virus infection Breast cancer screening Localized swelling on left hand Chronic constipation Elevated blood pressure reading in office without diagnosis of hypertension Hemangioma Preventative health care Chronic left hip pain Right thyroid nodule GERD (gastroesophageal reflux disease) Essential hypertension DM 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 Home Medications ?Medication ?Instructions ?Recorded ?Last Taken ?Type calcium carbonate (Calcium 600) 600 mg PO DAILY 09/25/20 05/18/24 History cholecalciferol (vitamin D3) 10 10 mcg PO DAILY 09/25/20 05/18/24 History mcg (400 unit) capsule cyanocobalamin (vitamin B-12) 50 50 mcg PO DAILY 09/25/20 05/18/24 History mcg tablet (Vitamin B-12) magnesium 200 mg tablet 200 mg PO DAILY 09/25/20 05/18/24 History potassium 99 mg PO DAILY 12/15/20 05/18/24 History sumatriptan succinate 50 mg tablet See Rx Instructions PO .COMPLEX 07/24/21 05/18/24 Rx (Imitrex) #14 tabs linaclotide 290 mcg capsule 290 mcg PO DAILY PRN PRN Diarrhea 09/05/22 05/18/24 Rx (Linzess) #90 caps cyclobenzaprine 10 mg tablet See Rx Instructions .Route 01/29/23 Unknown Rx .COMPLEX #60 tabs ferrous sulfate 325 mg (65 mg 325 mg PO DAILY 04/01/23 05/15/24 History iron) tablet fexofenadine 180 mg tablet 180 mg PO DAILY 04/18/23 05/18/24 History (Aller-Fex) hydroxyzine HCl 25 mg tablet 25 mg PO PRN PRN itching 04/18/23 Unknown History buspirone 5 mg tablet 7.5 mg PO TID 09/12/23 05/18/24 History ursodiol 250 mg tablet 250 mg PO BID #60 tabs 09/12/23 05/18/24 Rx semaglutide 1 mg/dose (4 mg/3 mL) 1 mg subcut MOFR 12/30/23 07/19/24 History subcutaneous pen injector pantoprazole 40 mg tablet,delayed 40 mg PO BID #120 TABLETS 03/17/24 05/19/24 Rx release sucralfate 1 gram tablet 1 g PO TIDAC 30 days #90 tabs 03/17/24 05/18/24 Rx amlodipine 5 mg tablet 10 mg PO QHS 07/06/24 Unknown History duloxetine 20 mg capsule,delayed 40 mg PO BID Fibromyalgia 07/06/24 Unknown History release (Cymbalta) Allergy/AdvReac Type Severity Reaction Status Date / Time NSAIDS (Non-Steroidal Allergy unknown Verified 07/22/24 09:37 Anti-Inflamma Penicillins Allergy Rash Verified 07/22/24 09:37 sulfamethoxazole (From Allergy rash Verified 07/22/24 09:37 Bactrim) trimethoprim (From Bactrim) Allergy rash Verified 07/22/24 09:37 Family History Aunt Cancer uterine cancer Brother Asthma Sister Autoimmune disorder Other Breast cancer Diabetes Heart disease Hypertension Myocardial infarction Parkinson disease Surgical History Hx of colonoscopy History of esophagogastroduodenoscopy (EGD) History of surgical removal of ganglion cyst History of hysterectomy Gastric bypass status for obesity H/O section S/P thyroid surgery Hx of cholecystectomy Social History Smoking Status: Never smoker Audit: Pertinent Findings Pertinent Findings EKG Perinent findings: April 22, 2023. Normal sinus rhythm. Stress test pertinent findings: August 05, 2023. Patient exercised to 13.3 METS. No EKG criteria for ischemia noted. Recommendation Anesthesia Recommendation Anesthesia recommendation: OPTIMIZED for anesthesia
--- NOTE | 2024-07-26 08:51 | PCM.PRE.AN2 ---
ASA Classification* ASA Classification ASA Classification: 2 Assessment & Plan Anesthesia* Anesthesia Assessment Anesthesia Assessment: Discussed sedation and/or anesthesia options, risks, benefits, and alternatives with patient/parents/legal guardian/POA. Questions invited. The patient/parents/legal guardian/POA seems to understand and agrees to proceed with anesthesia plan. Reviewed the physical assessment, medical history, allergy history and patient home medications list prior to surgery/procedure/anesthetic and documented any changes. Performed airway and anesthesia risk assessments. Anesthesia Type Anesthesia Type: MAC Anesthesia Focused Assessment* Airway Assessment Mouth opens: >3 cm Mallampati Score: II Focused Labs Anesthesia Preop lab: CBC WBC 9.0 K/mm3 (4.4-11.0) 06/22/24 13:20 06/22/24 RBC 4.82 M/mm3 (4.2-5.4) 06/22/24 13:20 06/22/24 Hgb 14.5 g/dL (12.0-15.0) 06/22/24 13:20 06/22/24 Hct 43.0 % (37-47) 06/22/24 13:20 06/22/24 Plt Count 337 K/mm3 (150-450) 06/22/24 13:20 06/22/24 CHEMISTRY Potassium 4.0 mmol/L (3.3-5.1) 06/22/24 13:20 06/22/24 Sodium 139 mmol/L (133-145) 06/22/24 13:20 06/22/24 Magnesium 2.1 mg/dL (1.6-2.6) 03/07/23 12:15 03/07/23 Phosphorus 3.6 mg/dL (2.5-4.9) 12/13/22 06:06 12/13/22 BUN 5 mg/dL (4-19) 06/22/24 13:20 06/22/24 Creatinine 0.59 mg/dL (0.70-1.20) L 06/22/24 13:20 06/22/24 Glucose 85 mg/dL (70-99) 06/22/24 13:20 06/22/24 TSH 1.64 uIU/mL (0.358-3.74) 10/30/23 09:11 10/30/23 COAG PT 13.3 SECONDS (11.7-14.9) 07/07/23 14:19 07/07/23 Pre-Assessment Diagnosis/Proposed Procedure Planned Operative Procedure(s): CAUDAL EPIDURAL STEROID INJECTION UNDER FLUOROSCOPY Anesthesia History 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 When Was Last Pacemaker Check QUESTION #4 FULL TEXT: You/Your Family Experience fever (hyperthermia) with Anesthesia Last Oral Intake Last Oral intake: Last Oral Intake NPO since Meds taken in AM with sips of water? Meds patient instructed to take am of surgery PONV PONV - wind farm electrical systems designer: PONV - wind farm electrical systems designer Female Yes 07/22/24 09:40 HX of Motion Sickness No 07/22/24 09:40 HX of N/V After Surgery Yes 07/22/24 09:40 Non-Smoker Yes 07/22/24 09:40 Duration of Surgery greater No 07/22/24 09:40 than 60 minutes Number of Risk Factors 3 07/22/24 09:40 PONV Score Moderate Risk 07/22/24 09:40 Height & Weight Height & Weight: Anesthesia: Height & Weight Height 5 ft 4 in 07/06/24 14:24 Respiratory Assessment Respiratory Assessment - wind farm electrical systems designer: Respiratory Tract Infection Hx - wind farm electrical systems designer Hx Respiratory Tract Infection No 07/22/24 09:40 STOP Sleep Apnea STOP Sleep Apnea - wind farm electrical systems designer: STOP Sleep Apnea - wind farm electrical systems designer Hx Hypertension Yes: CONTROLLED WITH MED 07/22/24 09:40 Hx Sleep Apnea Yes 07/22/24 09:40 CPAP Yes 07/22/24 09:40 BIPAP No 07/22/24 09:40 Do you snore loudly (louder than talking or can be heard Do you often feel tired/ fatigued/ sleepy during daytime? Has anyone observed you stop breathing during sleep? STOP Results Positive 07/22/24 09:40 QUESTION #5 FULL TEXT : Do you snore loudly (louder than talking or can be heard through closed doors)? 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 Specify any problems Hx of Preganancy in last 3 No 07/22/24 09:40 Months Nurse Filling Out Transfusion DSCHRIBER 07/22/24 09:40 & Questions: Date: 07/22/24 07/22/24 09:40 Time: 09:43 07/22/24 09:40 Patient unable to answer at this time (ie. confused, unrespo /Reproduction History /Reproductive History - wind farm electrical systems designer: /Reproductive Hx- wind farm electrical systems designer Hx Now No 07/22/24 09:40 Gestational Age (in weeks): EDC: Hx Hx Para Hx Section SAB No 07/22/24 09:40 PFSH Medical History Back pain Blood disorder Syncope MGUS (monoclonal gammopathy of unknown significance) Colon cancer screening GI bleed Mass of skin of left lower leg Wears glasses Thyroid disease Low iron Migraine headache History of hiatal hernia History of IBS Non-smoker Vocal cord dysfunction Hypertension URI (upper respiratory infection) Suspected COVID-19 virus infection Breast cancer screening Localized swelling on left hand Chronic constipation Elevated blood pressure reading in office without diagnosis of hypertension Hemangioma Preventative health care Chronic left hip pain Right thyroid nodule GERD (gastroesophageal reflux disease) Essential hypertension DM 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 Home Medications ?Medication ?Instructions ?Recorded ?Last Taken ?Type calcium carbonate (Calcium 600) 600 mg PO DAILY 09/25/20 05/18/24 History cholecalciferol (vitamin D3) 10 10 mcg PO DAILY 09/25/20 05/18/24 History mcg (400 unit) capsule cyanocobalamin (vitamin B-12) 50 50 mcg PO DAILY 09/25/20 05/18/24 History mcg tablet (Vitamin B-12) magnesium 200 mg tablet 200 mg PO DAILY 09/25/20 05/18/24 History potassium 99 mg PO DAILY 12/15/20 05/18/24 History sumatriptan succinate 50 mg tablet See Rx Instructions PO .COMPLEX 07/24/21 05/18/24 Rx (Imitrex) #14 tabs linaclotide 290 mcg capsule 290 mcg PO DAILY PRN PRN Diarrhea 09/05/22 05/18/24 Rx (Linzess) #90 caps cyclobenzaprine 10 mg tablet See Rx Instructions .Route 01/29/23 Unknown Rx .COMPLEX #60 tabs ferrous sulfate 325 mg (65 mg 325 mg PO DAILY 04/01/23 05/15/24 History iron) tablet fexofenadine 180 mg tablet 180 mg PO DAILY 04/18/23 05/18/24 History (Aller-Fex) hydroxyzine HCl 25 mg tablet 25 mg PO PRN PRN itching 04/18/23 Unknown History buspirone 5 mg tablet 7.5 mg PO TID 09/12/23 05/18/24 History ursodiol 250 mg tablet 250 mg PO BID #60 tabs 09/12/23 05/18/24 Rx semaglutide 1 mg/dose (4 mg/3 mL) 1 mg subcut MOFR 12/30/23 07/19/24 History subcutaneous pen injector pantoprazole 40 mg tablet,delayed 40 mg PO BID #120 TABLETS 03/17/24 05/19/24 Rx release sucralfate 1 gram tablet 1 g PO TIDAC 30 days #90 tabs 03/17/24 05/18/24 Rx amlodipine 5 mg tablet 10 mg PO QHS 07/06/24 Unknown History duloxetine 20 mg capsule,delayed 40 mg PO BID Fibromyalgia 07/06/24 Unknown History release (Cymbalta) Allergy/AdvReac Type Severity Reaction Status Date / Time NSAIDS (Non-Steroidal Allergy unknown Verified 07/22/24 09:37 Anti-Inflamma Penicillins Allergy Rash Verified 07/22/24 09:37 sulfamethoxazole (From Allergy rash Verified 07/22/24 09:37 Bactrim) trimethoprim (From Bactrim) Allergy rash Verified 07/22/24 09:37 Family History Aunt Cancer uterine cancer Brother Asthma Sister Autoimmune disorder Other Breast cancer Diabetes Heart disease Hypertension Myocardial infarction Parkinson disease Surgical History Hx of colonoscopy History of esophagogastroduodenoscopy (EGD) History of surgical removal of ganglion cyst History of hysterectomy Gastric bypass status for obesity H/O section S/P thyroid surgery Hx of cholecystectomy Social History Smoking Status: Never smoker Review of Systems (Anesthesia) ROS Narrative System reviewed and no additional complaints, except as documented.
[2024-07-26 09:11] VITALS: BP 107/80; PULSE 70; RESP 16; TEMP 36.6; O2SAT 99; BMI 33.7
--- NOTE | 2024-07-26 09:20 | RAD_ITS ---
PROCEDURE: FLUOR GUIDANCE FOR SPINE INJ 07/26/2024 REASON FOR EXAM: BLOCK,CAUDAL TECHNIQUE: 2 fluoroscopic images were submitted. Fluoroscopy time was 6.7 seconds. Peak skin radiation dose was 2.6 mGy. COMPARISON: None FINDINGS: See impression RAD/Fluor Guidance for Spine Inj IMPRESSION: Fluoroscopic guidance provided during sacral injection. See operative report for further details. Reading Location: [facility]
[2024-07-26 09:55] LABS: Bedside Glucose 84 mg/dL (74-106)
[2024-07-26] MEDS: 0.9% Normal Saline (Pres. free 10 ML Vial (10:00)
[2024-07-26] MEDS: Lidocaine 1% (5 ml sdv) 5 ML Vial (10:00)
[2024-07-26] MEDS: Bupivacaine 0.25% 30 ML Vial (10:00)
[2024-07-26] MEDS: MethylPREDNISolone Acetate 80 MG/ML Vial (10:00)
--- NOTE | 2024-07-26 10:02 | OP.PCM_ITS ---
Operative Report (Standard) Operative Information Date of Procedure: 07/26/24 Pre-Operative Diagnosis: Lumbosacral radiculopathy, lumbosacral spinal stenosis, lumbosacral degenerative disc disease Post-Operative Diagnosis: Lumbosacral radiculopathy, lumbosacral spinal stenosis, lumbosacral degenerative disc disease Surgery/Procedure Performed: Diagnostic/therapeutic caudal epidural steroid injection under fluoroscopic guidance supervisor porcelain department: No Type of Anesthesia: Local MAC RN Documented Start/Stop Times: Operation Date: 07/26/24 10:20 Case Time Into Pre-Op 07/26/24 08:58 Anesthesia Start 07/26/24 09:55 Into Room 07/26/24 09:55 Procedure Start 07/26/24 10:00 Procedure Start Time: 10:03 Procedure Stop Time: 10:04 Select all DRAINS/GRAFTS/IMPLANTS that apply: None Estimated Blood Loss: 0 Specimen collected: No Description of surgery: ANESTHESIA: MAC. BLOOD LOSS: Minimal. COMPLICATIONS: None. DESCRIPTION OF PROCEDURE: History and physical of today was reviewed. Risks and benefits of the procedure were explained. The patient understood and agreed to proceed. Informed consent was obtained. IV inserted per routine protocol. The patient was taken to the operating room and placed in the prone position with a pillow positioned underneath the abdomen. The lower back and tailbone area was prepped and draped in a sterile fashion using iodine x3. Under fl uoroscopy guidance on a lateral view, the caudal space was identified. The skin and subcutaneous tissue was anesthetized with approximately 3 mL of 1% lidocaine using a 25-gauge regular needle. Under direct visualization with fluoroscopy, using a 22-gauge 3-1/2-inch spinal needle, the needle was advanced via the skin through the sacral hiatus. The tip of the needle was passed through the sacroc occygeal ligament and advanced to approximately S4 area. After negative aspiration of blood or CSF, a total of 3 mL of contrast was injected to confirm correct placement of the needle as well as cephalad spread. The spread was followed to approximately L5 area. After confirmation on AP as well as lateral view and repeated negative aspiration, a total of 15 mL of preservative-free 0.125% Marcaine with 80 mg of Depo-Medrol was injected easily. The needle was then removed intact. The patient experienced no sign or symptoms of intrathecal or intravascular injection. The patient experienced no paresthesia. The procedure was completed without any apparent difficulty or any complications. The patient appeared to tolerate it well. ASSESSMENT AND PLAN: This is a 48 year-old female with lumbosacral radiculopathy, lumbosacral degenerative disc disease, lumbosacral spinal stenosis status post diagnostic/therapeutic caudal epidural steroid injection under fluoroscopic guidance, patient will continue her current medications, patient will follow-up in approximately 2 weeks for reevaluation. Surgical Findings: 0 Complications Complications: No Admit VTE Documentation VTE Present on Admission: No
[2024-07-26 10:05] VITALS: BP 107/80; BP 110/74; PULSE 64; RESP 16; TEMP 36.9; O2SAT 98
[2024-07-26 10:10] VITALS: BP 106/70; BP 107/80; BP 110/74; PULSE 65; PULSE 66; RESP 16; RESP 18; TEMP 36.9; O2SAT 97
--- NOTE | 2024-07-26 10:10 | PCM.POST.ANE ---
Anesthesia: Postop Eval I Current Vital Signs Temperature: 98.4 F Pulse Rate: 66 Blood Pressure: 110/74 Respiratory Rate: 18 Pulse Ox: 97 Assessment Airway patent: Yes Spontaneous unlabored respirations: Yes nausea: No Vomiting: No Anesthesia Complication: No Fluid Hydration Crystalloid volume administer (ml): 10 Total IV fluid infused: 10 Progress Note Anesthesia document: Postop Eval 1 completed: Yes
[2024-07-26 10:15] VITALS: BP 107/80; BP 110/72; PULSE 61; RESP 16; TEMP 36.8; O2SAT 95
[2024-07-26 10:33] VITALS: BP 107/80
--- NOTE | 2024-07-26 10:34 | POSTOPAN2_ITS ---
Anesthesia Postop Eval I Sum Postop Eval Completion status Anesthesia document: Postop Eval 1 completed: Yes Anesthesia Postop Eval I Summary Anesthesia Postop Eval I Summary: Anesthesia Postop Eval I: Assessment Summary Airway patent Yes 07/26/24 10:10 FLYING INSTRUCTOR.[email or web address] Spontaneous unlabored Yes 07/26/24 10:10 FLYING INSTRUCTOR.CSIR respirations Mental status nausea No 07/26/24 10:10 FLYING INSTRUCTOR.CSIR Vomiting No 07/26/24 10:10 FLYING INSTRUCTOR.CSIR Anesthesia Postop Eval I: Fluid Summary Crystalloid volume administer 10 07/26/24 10:10 FLYING INSTRUCTOR.CSIR (ml) Colloids volume administered ( ml) Blood Product volume administered (ml) Total IV fluid infused 10 07/26/24 10:10 FLYING INSTRUCTOR.CSIR Anesthesia Postop Eval I: Summary Notes Anesthesia Complication No 07/26/24 10:10 FLYING INSTRUCTOR.CSIR Anesthesia Complication Comment: Post-operative progress note Anesthesia: Postop Eval II Evaluation Mental status: Awake Pain Level: 0 nausea: No Vomiting: No
--- NOTE | 2024-07-26 10:34 | PCM.POSTANE2 ---
Anesthesia Postop Eval I Sum Postop Eval Completion status Anesthesia document: Postop Eval 1 completed: Yes Anesthesia Postop Eval I Summary Anesthesia Postop Eval I Summary: Anesthesia Postop Eval I: Assessment Summary Airway patent Yes 07/26/24 10:10 COMPUTER PROGRAMMER [email or web address] Spontaneous unlabored Yes 07/26/24 10:10 COMPUTER PROGRAMMER [email or web address].CSIR respirations Mental status nausea No 07/26/24 10:10 COMPUTER PROGRAMMER CHIEF.CSIR Vomiting No 07/26/24 10:10 COMPUTER PROGRAMMER CHIEF.CSIR Anesthesia Postop Eval I: Fluid Summary Crystalloid volume administer 10 07/26/24 10:10 COMPUTER PROGRAMMER CHIEF.CSIR (ml) Colloids volume administered ( ml) Blood Product volume administered (ml) Total IV fluid infused 10 07/26/24 10:10 COMPUTER PROGRAMMER CHIEF.CSIR Anesthesia Postop Eval I: Summary Notes Anesthesia Complication No 07/26/24 10:10 COMPUTER PROGRAMMER CHIEF.CSIR Anesthesia Complication Comment: Post-operative progress note Anesthesia: Postop Eval II Evaluation Mental status: Awake Pain Level: 0 nausea: No Vomiting: No
== END 2024-07-26 10:46 | disposition home or self-care (01) ==
LOC: SDC 08:43 → AC 08:45
PROVIDERS: PCP Nurse Practitioner Family; Referring Provider Anesthesiology Pain Medicine; Visit Provider Anesthesiology Pain Medicine
PROC: 3E0S3BZ Introduction of Anesthetic Agent into Epidural Space, Percutaneous Approach (ICD-10-PCS; CPT 62282; principal; 2024-07-26 10:15)
DX: M51.17 Intervertebral disc disorders with radiculopathy, lumbosacral region (principal); E11.9 Type 2 diabetes mellitus without complications; M51.372 Other intervertebral disc degeneration, lumbosacral region with discogenic back pain and lower extremity pain; M48.07 Spinal stenosis, lumbosacral region; I10 Essential (primary) hypertension; Z79.85 Long-term (current) use of injectable non-insulin antidiabetic drugs; Z79.891 Long term (current) use of opiate analgesic; Z79.899 Other long term (current) drug therapy; Z98.84 Bariatric surgery status
CPT/HCPCS: 62323; 64483; 77003; 82962; A4216; J2405

== ENCOUNTER → 2024-08-12 | Outpatient (CLI) | payer OTHER, SELFPAY ==
--- NOTE | 2024-08-12 13:32 | RAD_ITS ---
PROCEDURE: Pelvis and bilateral hip radiographs, five views 08/12/2024 REASON FOR EXAM: HIP PAIN VERSUS RADICULAR SYMPTOMS TECHNIQUE: Five views of the pelvis and bilateral hips were obtained. COMPARISON: None available FINDINGS: Five views of the pelvis and bilateral hips were obtained. Bones are mildly osteopenic. Mild degenerative changes lower lumbar spine. SI joints intact. No displaced pelvic fracture. No acute fracture or dislocation of either hip. Mild degenerative changes in the hip joints. RAD/Hips B/L min 2 views w/ Pelvis IMPRESSION: No acute bony abnormality of the pelvis/bilateral hips. Mild degenerative changes in the hip joints. Reading Location: [facility]
--- NOTE | 2024-08-12 13:32 | RAD_ITS ---
PROCEDURE: Thoracic spine radiographs, three views 08/12/2024 REASON FOR EXAM: THORACIC SPINE PAIN TECHNIQUE: Three views of the thoracic spine were obtained. COMPARISON: None available FINDINGS: Three views of the thoracic spine were obtained. Bones are osteopenic. Surgical clips project over the right upper abdomen. Lungs are grossly clear. No acute fracture or focal subluxation of the thoracic spine. Moderate multilevel degenerative disc disease in the thoracic spine. There is mild exaggeration of the normal thoracic kyphosis. RAD/Thoracic Spine 3 Views IMPRESSION: Osteopenia. No acute bony abnormality of the thoracic spine. Moderate multilevel degenerative disc and facet disease in the thoracic spine. If there is persistent pain or clinical concern, MRI evaluation may be considered. Reading Location: [facility]
== END | disposition home or self-care (01) ==
LOC: MTRAD 13:30
PROVIDERS: PCP Nurse Practitioner Family; Referring Provider Clinical Nurse Specialist Adult Health; Visit Provider Clinical Nurse Specialist Adult Health
DX: M54.6 Pain in thoracic spine (principal)
CPT/HCPCS: 72072; 73521

== ENCOUNTER → 2024-08-26 | Outpatient (CLI) | payer OTHER, SELFPAY ==
--- NOTE | 2024-08-26 10:09 | US_ITS ---
PROCEDURE: THYROID 08/26/2024 REASON FOR EXAM: FOLLOW UP Thyroid nodules. Prior resection of the left thyroid. TECHNIQUE: High-frequency thyroid ultrasound, including grayscale and color-flow images. REFERENCE LINKS: TI-RADS Chart: [email or web address] TI-RADS Calculator Tool with Reference Images: [email or web address] COMPARISON: Prior study dated March 07, 2023. FINDINGS: Right thyroid lobe size: 4.9 cm x 2.2 cm x 1.8 cm Left thyroid lobe has been resected. Isthmus: 0.39 cm Background parenchymal echotexture is homogeneous. Nodules: . Lobe: Right, Location: Upper pole, Size: 1 cm x 0.9 cm x 0.6 cm, Stability: Stable Composition: Mixed cystic and solid (+1) Echogenicity: Hypoechoic (+2) Margin: Smooth (+0) Shape: Wider than tall (+0) Echogenic Foci: None (+0) TI-RADS: 3 . Lobe: Right, Location: Medial adjacent to the isthmus, Size: 1.1 cm x 1.1 cm x 1.4 cm, Stability: Stable Composition: Mixed cystic and solid (+1) Echogenicity: Hypoechoic (+2) Margin: Smooth (+0) Shape: Wider than tall (+0) Echogenic Foci: None (+0) TI-RADS: 2 US/Thyroid IMPRESSION: Stable examination. RECOMMENDATION: Based on most suspicious nodule. Nodule size = largest diameter Only evaluate nodule if =>5 mm. Growth > 20% in 2 dimensions = worsening. Follow up to 4 nodules. Recommend biopsy for no more than 2 nodules. Reading Location: [facility]
== END | disposition home or self-care (01) ==
LOC: US 10:08
PROVIDERS: PCP Nurse Practitioner Family; Referring Provider Surgery; Visit Provider Surgery
DX: E04.1 Nontoxic single thyroid nodule (principal)
CPT/HCPCS: 76536

== ENCOUNTER → 2024-09-15 | Outpatient (CLI) | payer OTHER, SELFPAY ==
[2024-09-15 07:49] LABS: ALB/GLOB Ratio 1.5 RATIO (0.9-2.4); AST(SGOT) 18 U/L (<=31); Alanine Aminotransfer ALT/SGPT 13 U/L (<=34); Albumin, Serum 4.2 g/dL (3.5-5.0); Alkaline Phosphatase 79 U/L (35-104); Anion Gap 12 (5-15); BUN 7 mg/dL (4-19); BUN/Creat Ratio 12.7 RATIO (10-20); Carbon Dioxide 23.4 mmol/L (21.0-32.0); Chloride 105 mmol/L (98-108); Creatinine, Serum 0.51 mg/dL (0.70-1.20); EST Glomerular Filtration Rate 116 (>60); Follicle Stimulating Hormone 6.4 mIU/mL; Globulin 2.8 g/dL (2.2-4.2); Glucose 85 mg/dL (70-99); Luteinizing Hormone 11.3 mIU/mL; Potassium 3.9 mmol/L (3.3-5.1); Protein, Total 6.9 g/dL (5.9-8.4); Sodium Level 140 mmol/L (133-145); Total Bilirubin 0.28 mg/dL (0.00-1.30)
[2024-09-16 04:07] LABS: PROGESTERONE 0.2 ng/mL (.)
[2024-09-18 15:08] LABS: PROLACTIN 11.4 ng/mL (4.8-33.4); Testosterone, % Free 1.86 % (0.50-2.80); Testosterone, Free 0.13 ng/dL (0.10-0.85); Testosterone, Total 7 ng/dL (4-50); Thyroid Peroxidase AB 9 IU/mL (0-34)
[2024-09-21 02:07] LABS: Estrogen, Total, Serum 181 pg/mL (.)
== END | disposition home or self-care (01) ==
LOC: LAB 06:09
PROVIDERS: PCP Nurse Practitioner Family; Referring Provider Nurse Practitioner Family; Visit Provider Nurse Practitioner Family
DX: F41.8 Other specified anxiety disorders (principal); Z90.711 Acquired absence of uterus with remaining cervical stump
CPT/HCPCS: 36415; 80053; 82670; 82672; 83001; 83002; 84144; 84146; 84402; 84403; 84439; 84443; 86376

== ENCOUNTER → 2024-09-27 | Outpatient (CLI) | payer OTHER, SELFPAY ==
--- NOTE | 2024-09-27 07:21 | US_ITS ---
PROCEDURE: ABD LIMITED W/ ELASTOGRAPHY REASON FOR EXAM: FATTY LIVER COMPARISON: Prior study dated July 18, 2023. TECHNIQUE: Right upper quadrant abdominal ultrasound. [facility] ElastQ Imaging shear wave elastography for non-invasive assessment of liver tissue stiffness. [facility] EPIQ Elite. FINDINGS: LIVER: Size: Unremarkable Length: 16.8 cm Echotexture: Diffusely echogenic suggesting fatty infiltration Contour: Normal Lesions: None identified Elastography: EQI Med: 8.3 kPa EQI Med Nimesh: 1.64 m/s IQR/Med: 26.5 %* GALLBLADDER: Surgically absent. COMMON BILE DUCT: Dilated measuring up to 9 mm. . PANCREAS: Visualized portions are unremarkable. The distal body and tail are obscured by bowel gas. Visualized portions of the right kidney are unremarkable. 1.3 cm x 1.6 cm 1.2 cm cyst. No right upper quadrant ascites. US/ABD Limited w/ Elastography IMPRESSION: [id number] degree of hepatic fibrosis. Fatty infiltration of the liver. Status post cholecystectomy. Reference Values: SRU <1.37 m/s (5.7kPa): No to mild fibrosis 1.37 m/s - 2.2 m/s: Moderate to severe fibrosis >2.2 m/s (15kPa): Significant fibrosis / cirrhosis METAVIR Score F2 or higher: 1.34 m/s (5.7kPa) F3 or higher: 1.55 m/s (7.3kPa) F4: 1.80 m/s (10kPa) * If the IQR/Med is >30%, the variance in the measurements is a large and the a ccuracy of the measurement may be in question. Reading Location: [place] [id number]
--- OUTSIDE RECORDS SUMMARY | 2024-09-27 07:23 | XMS RPT_ITS | CCD ---
Author Organization [facility] Care Team Providers Care Coater Helper Name Role Phone Jarret Reece MD Unavailable Aziza Simons Unavailable Unavailable Tizzano, Timothy Bennett Attending Unavailable Nails, Luciano Ortiz Primary Care Unavailable Tizzano, Timothy Bennett Attending Unavailable Nails, Luciano Ortiz Primary Care Unavailable Tizzano, Timothy Bennett Admitting Unavailable Tizzano, Timothy Bennett Attending Unavailable Nails, Luciano Ortiz Primary Care Unavailable Tizzano, Timothy Bennett Admitting Unavailable Tizzano, Timothy Bennett Attending Unavailable Nails, Luciano Ortiz Primary Care Unavailable Tizzano, Timothy Bennett Attending Unavailable NailsLuciano johnston Primary Care Unavailable Yifan Fregoso Attending Unavailable Jesu, Luciano Ortiz Primary Care Unavailable Yifan Fregoso Admitting Unavailable Yifan Fregoso Attending Unavailable Jesu, Luciano Ortiz Primary Care Unavailable Jarret Reece MD Unavailable Luciano Nails Primary Care Provider LUCIANO NAILS Admitting Unavailable LUCIANO NAILS Attending Unavailable LUCIANO NAILS Primary Care Unavailable LUCIANO NAILS MD Consulting Unavailable PROVIDER, UNKNOWN Consulting Unavailable JOHN ROMERO Admitting Unavailable JOHN ROMERO Attending Unavailable JOHN ROMERO Primary Care Unavailable LUCIANO NAILS MD Consulting Unavailable PROVIDER, UNKNOWN Consulting Unavailable Luciano Nails Primary Care Provider [phone] Luciano Nails MD Primary Care Provider Dr. Hermelinda Castillo Primary Care Provider Dr. Hermelinda Castillo Referring Provider Katharina FLAT SURFACER, APRILC Giancarlo Attending Provider [phone] Dr. Stephane Saez [facility]ending [facility] Unavailab enrrique Nails MD, Luciano Carvajal Primary Care Provider [phone] Dr. Hermelinda Castillo Primary Care Provider [phone] Dr. Hermelinda Castillo Referring Provider [phone] Posadas FLAT SURFACER, FLAT SURFACER-C Giancarlo Attending Provider Dr. Jose Suresh Attending Provider Jesu ROSENBERG, Luciano Carvajal Primary Care Provider [phone] Dr. Maximiliano Murphy Attending Provider Dr. Krista Robledo Referring Provider Jesu ROSENBERG, Luciano Carvajal Primary Care Provider [phone] EVANGELINA SAEED Attending Unavailable LUCIANO NAILS Primary Care Unavailable COREY SPAIN Referring Unavailable COREY SPAIN Attending Unavailable LUCIANO NAILS Referring Unavailable LUCIANO NAILS Primary Care Unavailable Dr. Hermelinda Castillo Primary Care Provider Dr. Hermelinda Castillo Referring Provider [phone] Dr. Jose Suresh Attending Provider Dr. Maximiliano Murphy Attending Provider Dr. Krista Robledo Referring Provider Katharina FLAT SURFACER, FLAT SURFACER-C Giancarlo Attending Provider [phone] Dr. Jose Suresh Referring Provider Dr. Jose Suresh Other Provider Dr. Hermelinda Castillo Primary Care Provider [phone] Dr. Jose Suresh Attending Provider Dr. Hermelinda Castillo Referring Provider Posadas FLAT SURFACER, FLAT SURFACER-C Giancarlo Attending Provider [phone] Dr. Hermelinda Castillo Primary Care Provider [phone] Dr. Hermelinda Castillo Referring Provider [phone] Posadas FLAT SURFACER, FLAT SURFACER-C Giancarlo Attending Provider [phone] Dr. Hermelinda Castillo Primary Care Provider [phone] Dr. Henok Bassett Emergency Provider Tamar, Dr. Mondragon Admit Provider Dr. Giancarlo Boyle Attending Provider Tamar, Dr. Mondragon Other Provider Dr. Ramez Villatoro Attending Provider [phone] Dr. Ganesh Bell Attending Provider Unavailable Arabella, Dr. Andersen Other Provider Unavailable Jonathan, Dr. Shen Attending Provider [phone] Jonathan, Dr. Shen Referring Provider [phone] Dr. Ganesh Bell Referring Provider Unavailable Jonathan, Dr. Shen Primary Care Provider [phone] Jonathan, Dr. Shen Attending Provider [phone] Jonathan, Dr. Shen Referring Provider [phone] Jonathan, Dr. Shen Primary Care Provider [phone] Dr. Hermelinda Castillo Attending Provider [phone] Dr. Hermelinda Castillo Referring Provider [phone] Dr. Jose Suresh Attending Provider [facility] Primary Care Pro vider Dr. Hermelinda Castillo Referring Provider [phone] Dr. Stephane Melgar Attending Provider Posadas FLAT SURFACER, FLAT SURFACER-C Giancarlo Primary Care Provider Katharina FLAT SURFACER, FLAT SURFACER-C Giancarlo Referring Provider [phone] [facility] Referring Provid er Dr. Ramez Villatoro Attending Provider [phone] Dr. Ramez Villatoro Other Provider [phone] Dr. Hermelinda Castillo Referring Provider Dr. Jose Suresh Attending Provider [facility] Primary Care Pro vider Dr. Stephane Melgar Attending Provider Posadas FLAT SURFACER, FLAT SURFACER-C Giancarlo Primary Care Provider Posadas FLAT SURFACER, FLAT SURFACER-C Giancarlo Referring Provider [facility] Referring Provid er Dr. Ramez Villatoro Attending Provider Dr. Ramez Villatoro Other Provider [facility] Primary Care Pro vider Posadas FLAT SURFACER, FLAT SURFACER-C Giancarlo Primary Care Provider Unavai pina Posadas FLAT SURFACER, FLAT SURFACER-C Giancarlo Referring Provider [facility] le Dr. Ramez Villatoro Attending Provider Dr. Stephane Melgar Attending Provider Posadas VSC, FLAT SURFACER-C Giancarlo Primary Care Provider Posadas VSC, FLAT SURFACER-C Giancarlo Referring Provider Posadas VSC, FLAT SURFACER-C Giancarlo Other Provider Dr. Maximiliano Murphy Attending Provider Posadas FLAT SURFACER-C, Giancarlo Primary Care Provider Posadas FLAT SURFACER-C, Giancarlo Referring Provider Austen ROSENBERG, Dr. Nuñez Attending Provider Dr. Ramez Villatoro DO Attending Provider Dr. Ramez Villatoro DO Other Provider Posadas FLAT SURFACER-C, Giancarlo Attending Provider Dr. Stephane Melgar MD Attending Provider Richy ROSENBERG, Dr. Langford Attending Provider Richy ROSENBERG, Dr. Langford Referring Provider Posadas FLAT SURFACER-C, Giancarlo Primary Care Provider Posadas FLAT SURFACER-C, Giancarlo Referring Provider MARLENA Messer. Catherine Attending Provider MARLENA Messer. Catherine Referring Provider Dr. Jose Suresh MD Attending Provider Dr. Jose Suresh MD Referring Provider Posadas FLAT SURFACER-C, Giancarlo Primary Care Provider Posadas FLAT SURFACER-C, Giancarlo Referring Provider Conchita Richardson Attending Provider Tannhof FLAT SURFACER-C, Adriana Attending Provider Tannhof FLAT SURFACER-C, Adriana Referring Provider Posadas VSC, Giancarlo Attending Unavailable Posadas VSC, Giancarlo Primary Care Unavailable Posadas VSC, Giancarlo Referring Unavailable Ramez Villatoro Attending Unavailable Posadas VSC, Giancarlo Primary Care Unavailable Posadas VSC, Giancarlo Primary Care Unavailable Primitivo Lockhart Referring Unavailable Primitivo Lockhart Attending Unavailable Lion, Karina Attending Unavailable Lion, Karina Referring Unavailable Posadas VSC, Giancarlo Primary Care Unavailable Posadas VSC, Giancarlo Referring Unavailable Posadas VSC, Giancarlo Primary Care Unavailable Posadas VSC, Giancarlo Attending Unavailable Posadas VSC, Giancarlo Primary Care Unavailable Posadas VSC, Giancarlo Attending Unavailable Posadas VSC, Giancarlo Primary Care Unavailable Lion, Karina Referring Unavailable Lion, Karina Attending Unavailable Lion, Karina Attending Unavailable Posadas VSC, Giancarlo Primary Care Unavailable Lion, Karina Referring Unavailable BortzJose Referring Unavailable BortzJose Attending Unavailable Posadas VSC, Giancarlo Primary Care Unavailable Posadas VSC, Giancarlo Primary Care Unavailable Posadas VSC, Giancarlo Referring Unavailable PrahStephane Attending Unavailable Posadas VSC, Giancarlo Primary Care Unavailable Conchita Burleson Attending Unavailable Posadas VSC, Giancarlo Referring Unavailable Posadas VSC, Giancarlo Primary Care Unavailable Conchita Burleson Referring Unavailable Conchita Burleson Attending Unavailable Posadas FLAT SURFACER, Giancarlo Primary Care Unavailable PraStephane ricks Referring Unavailable Stephane Melgar Attending Unavailable Posadas VSC, Giancarlo Primary Care Unavailable BentonfAdriana Referring Unavailable BentonfAdriana Attending Unavailable Posadas VSC, Giancarlo Referring Unavailable Posadas VSC, Giancarlo Primary Care Unavailable Stephane Melgar Attending Unavailable Posadas VSC, Giancarlo Referring Unavailable Posadas VSC, Giancarlo Primary Care Unavailable Karina Seymour Attending Unavailable Posadas VSC, Giancarlo Referring Unavailable Conchita Burleson Attending Unavailable Posadas VSC, Giancarlo Primary Care Unavailable Posadas VSC, Giancarlo Referring Unavailable Joaquin Boyce Attending Unavailable Posadas VSC, Giancarlo Primary Care Unavailable Friend, Ramez Attending Unavailable Friend, Ramez Consulting Unavailable Posadas VSC, Giancarlo Primary Care Unavailable Posadas VSC, Giancarlo Referring Unavailable Ayde, Catherine Referring Unavailable Ayde, Catherine Attending Unavailable Posadas VSC, Giancarlo Primary Care Unavailable Allergies Allergy Classification Reported Allergen(s) Allergy Type Date of Onset Reaction(s) Facility (5 sources) penicillin drug allergy 08-30-[address] [facility] Work Phone: (20 sources) Penicillins; Translations: [penicillins] Propensity to adverse reactions to drug (disorder) 02-19-20 18 [facility] Repository (10 sources) Sulfamethoxazole / Trimethoprim Drug Allergy 09-29-19 19 Itching, Rash [place], [place] (20 sources) Sulfamethoxazole; Translations: [SULFAMETHOXAZOLE] Drug Allergy 01-09-20 21 Rash, [facility] (20 sources) Trimethoprim Drug Allergy 08-11-19 22 [facility] (20 sources) NSAIDS (Non-Steroidal Anti-Inflamma; Translations: [NSAIDS (Non-Steroidal Anti-Inflamma] Allergy to substance 08-11-19 22 unknown [facility] (9 sources) Penicillin G; Translations: [PENICILLIN G] Drug Allergy 03-11-20 05 [facility] Work Phone: (3 sources) Non-steroidal anti-inflammatory agent; Translations: [NSAIDS (NON-STEROIDAL ANTI-INFLAMMATORY DRUG)] Drug Allergy 02-08-20 22 Unknown [facility] (1 source) Sulfamethoxazole Drug Allergy 07-27-19 25 [facility] Repository (1 source) Trimethoprim Drug Allergy 07-27-19 25 [facility] Repository Medications Current Medications Medication Drug Class(es) Dates Sig (Normalized) Sig (Original) acetaminophen / oxyCODONE (20 sources) Opioid Agonist Start: 12-29-2018 oxyCODONE-acetamin ophen (PERCOCET) 5-325 MG per tablet 1 tablet Start: 12-28-2018 End: 01-08-2019 take 1 tablet by mouth every four to six hours as needed for pain oxyCODONE-acetaminophen (PERCOCET) 5-325 MG per tablet Indications: Post-op pain Take 1 tablet by mouth every 4-6 hours as needed for Pain for up to 11 days. 42 tablet 0 12/28/2018 01/08/2019 Active Start: 08-21-2016 take 1-2 tablets by mouth four times daily as needed for pain PERCOCET 5-325 MG TABS one to two tablet s by mouth four times daily as needed for pain OXYCODONE-ACETAMINOPHEN [id number] Jarret Reece MD Start: 08-15-2016 End: 09-25-2020 Oxycodone-Acetaminophen 1 TA BLET tablet Discontinued 1 - 2 {tbl} PO 4 TIMES DAILY NEEDED as needed for Pain August 15, 2016 8:27am September 25, 2020 3:44pm Start: 08-15-2016 End: 09-25-2020 take 1 tablet by mouth four times daily as needed Oxycodone-Acetaminophen Discontinued 1 - 2 TABLET PO 4 TIMES DAILY NEEDED August 15, 2016 8:27am September 25, 2020 3:44pm Start: 11-15-2014 End: 12-12-2014 take 1-2 tablets by mouth four times daily as needed for pain PERCOCET 5-325 MG TABS one to two tablet s by mouth four times daily as needed for pain OXYCODONE-ACETAMINOPHEN [id number] Helen Sales LPN Start: 11-15-2014 take 1-2 tablets by mouth four times daily as needed for pain PERCOCET 5-325 MG TABS one to two tablet s by mouth four times daily as needed for pain OXYCODONE-ACETAMINOPHEN [id number] Jarret Reece MD Start: 11-15-2014 End: 12-12-2014 take 1-2 tablets by mouth four times daily as needed for pain PERCOCET 5-325 MG TABS one to two tablet s by mouth four times daily as needed for pain OXYCODONE-ACETAMINOPHEN [id number] Helen Sales [employer]SEM[employer] WORK[employer] albuterol 0.83 mg/ml inhalant solution (2 sources) beta2-Adrenergic Agonist Start: 12-29-2018 albut vance (PROVENTIL) nebulizer solution 2.5 mg Start: 12-28-2018 End: 12-29-2018 2.5 mg, Nebulization, EVERY 4 HOURS WHILE AWAKE, First dose on Fri12/28/18 at 1600, Post-op alogliptin 12.5 mg / metFORMIN hydrochloride 1000 mg oral tablet (8 sources) Biguanide take 1 tablet by mouth twice daily alogliptin-metformin 12.5-1000 MG TABS Indications: DM Take 1 tablet by mouth 2 times daily 0 Active amLODIPine 5 mg oral tablet (20 sources) Dihydropyridine Calcium Channel Alec Start: 2024 take 2 tablets by mouth at bedtime Amlodipine 5 mg tablet Active 10 mg PO AT BEDTIME July 06, 2024 2:22pm Start: 06-28-2021 End: 07-06-2024 take 1 tablet by mouth once daily Amlodipine 5 mg tablet Discontinued 0 .ROUTE .COMPLEX 90 April 07, 2023 3:29pm April 18, 2023 11:07am TAKE 1 TABLET BY MOUTH ONCE DAILY busPIRone hydrochloride 5 mg oral tablet (15 sources) Start: 09-12-2023 take 7.5 mg by mouth three times daily Buspirone 5 mg tablet Active 7.5 mg PO THREE TIMES A DAY September 12, 2023 2:33pm Start: 04-18-2023 End: 09-12-2023 take 1 tablet by mouth twice daily Buspirone 5 mg tablet Discontinued 5 mg PO TWICE A DAY April 18, 2023 1:00am September 12, 2023 2:34pm calcium carbonate 1500 mg oral tablet (20 sources) Start: 09-25-2020 take 1 tablet by mouth once daily Calcium Carbonate (Calcium 600) 600 mg calcium (1,500 mg) tablet Active 600 mg PO DAILY September 25, 2020 12:00am Start: 01-06-2019 take 1 tablet by angel th three times daily calcium carbonate (TUMS) 500 MG chewable tablet Indications: supplement Take 1 tablet by mouth 3 times daily Indications: supplement 0 01/06/2019 Active Calcium Citrate / Vitamin D (1 source) Start: 03-07-2020 take 500 mg by mouth three times daily Calcium Citrate-Vitamin D (CALCIUM CITRATE +D PO) Take 500 mg by mouth 3 times daily 0 03/07/2020 Active cholecalciferol 0.01 mg oral capsule (20 sources) Vitamin D Start: 09-25-2020 take 1 capsule by mouth once daily Cholecalciferol (Vitamin D3) 10 mcg (400 unit) capsule Active 10 ug PO DAILY September 25, 2020 12:00am CPAP Machine MISC (10 sources) CPAP Machine MIS C Indications: Settings: 8-10cm H2O PETER by Does not apply route 0 Active DULoxetine 20 mg delayed release oral capsule (6 sources) Serotonin and Norepinephrine Reuptake Inhibitor Start: 09-09-2024 Duloxetine (Cymbalta) 20 mg capsule,delayed release(DR/EC) Active 30 mg PO TWICE A DAY September 09, 2024 2:08pm Start: 07-06-2024 End: 09-09-2024 take 2 capsules by mouth twice daily Duloxetine (Cymbalta) 20 mg capsule,delayed release(DR/EC) Discontinued 40 mg PO TWICE A DAY July 06, 2024 12:00am September 09, 2024 2:10pm 0.6 ml enoxaparin sodium 100 mg/ml prefilled syringe (8 sources) Low Molecular Weight Heparin Start: 12-31-2018 End: 01-30-2019 enoxaparin (LOVENOX) 60 MG/0.6ML injection Inject 0.6 mLs into the skin 2 times daily 60 Syringe 0 12/31/2018 01/30/2019 Active famotidine 20 mg oral tablet (3 sources) Histamine-2 Receptor Antagonist Start: 12-29-2018 famotidine (PEPCID) tablet 20 mg Start: 12-28-2018 End: 12-29-2018 20 mg, Intravenous, 2 TIMES DAILY, First dose on 12/28/18 at 1230 Dilute with 5-10 mL 0.9% sodium chloride. Administer over 2 minutes. Post-op Start: 12-28-2018 End: 12-28-2018 famotidine (PEPCID) tablet 2 0 mg ferrous sulfate 325 mg oral tablet (20 sources) Start: 04-01-2023 take 1 tablet by mouth once daily Ferrous Sulfate 325 mg (65 mg iron) tablet Active 325 mg PO DAILY April 01, 2023 4:46pm Start: 12-15-2020 End: 04-01-2023 take 1 tablet by mouth three times daily Ferrous Sulfate 325 mg (65 mg iron) tablet Discontinued 325 mg PO THREE TIMES A DAY December 15, 2020 12:00am April 01, 2023 4:48pm Start: 09-25-2020 End: 12-15-2020 take 110 mg by mouth once daily Ferrous Sulfate 220 mg (44 mg iron)/5 mL elixir Discontinued 110 mg PO DAILY September 25, 2020 12:00am December 15, 2020 1:35pm Start: 01-28-2019 take 1 tablet by angel th once daily ferrous sulfate 325 (65 Fe) MG tablet Indications: supplement Take 1 tablet by mouth daily Indications: supplement 30 tablet 5 01/28/2019 Active fexofenadine hydrochloride 180 mg oral tablet (10 sources) Histamine-1 Receptor Antagonist Start: 04-18-2023 take 1 tablet by mouth once daily Fexofenadine (Aller-Fex) 180 mg tablet Active 180 mg PO DAILY April 18, 2023 1:00am fluconazole 150 mg oral tablet (11 sources) Azole Antifungal Start: 02-14-2022 Fluconazole (Diflucan) 150 mg tablet Active 150 MG PO Q3D 2 February 14, 2022 12:00am may repeat second dose 72 hrs after first dose if symptoms persist, hold hydroxyzine while on this Start: 2014 End: 12-12-2014 take 1 tablet by mouth twice daily DIFLUCAN 100 MG TABS One tablet by mouth twice daily FLUCONAZOLE [id number] Helen Sales LPN glucagon (rdna) 1 mg injection (1 source) Antihypoglycemic Agent Start: 12-28-2018 glucago n (rDNA) injection 1 mg 150 ml glucose 50 mg/ml injection (3 sources) Start: 12-28-2018 glucose (GLUTO SE) 40 % oral gel 15 g Start: 12-28-2018 dextrose 50 % IV solution Start: 12-28-2018 dextrose 5 % s olution 1 ml heparin sodium, porcine 5000 unt/ml prefilled syringe (2 sources) Unfractionated Heparin, Anti-coagulant Start: 12-28-2018 inject 1 dose by subcutaneous injection three times daily 5,000 Units, Subcutaneous, EVERY 8 HOURS SCHEDULED (3 times per day), First dose on Fri12/28/18 at 2000 Start: 12-28-2018 End: 12-28-2018 heparin (porcine) injection 5,000 Units 1 ml hydrALAZINE hydrochloride 20 mg/ml injection (1 source) Arteriolar Vasodilator Start: 12-28-2018 10 mg, Intravenous, EVERY 4 HOURS PRN, High Blood Pressure, SBP >160, hold if SBP < 90 or HR > 100, Starting Fri12/28/18 at 1211 Hold for HR <60 hydrOXYzine hydrochloride 25 mg oral tablet (11 sources) Antihistamine Start: 04-18-2023 Hydroxyzine Hc l 25 mg tablet Active 25 mg PO NEEDED as needed for itching April 18, 2023 1:00am Start: 02-07-2022 take 25 mg by mouth three times daily Hydroxyzine Hcl Active 25 MG PO THREE TIMES A DAY February 07, 2022 12:00am insulin lispro 100 unt/ml injectable solution (3 sources) Insulin Analog Start: 12-28-2018 insulin lispro (HUMALOG) injection vial 0-6 Units Start: 12-28-2018 End: 12-28-2018 insulin lispro (HUMALOG) inj ection vial 2 Units 1 ml ketorolac tromethamine 30 mg/ml cartridge (1 source) Nonsteroidal Anti-inflammatory Drug, Cyclooxygenase Inhibitor Start: 12-28-2018 End: 01-02-2019 30 mg, Intravenous, EVERY 6 HOURS, First dose on Fri12/28/18 at 1230, For 5 days Do not administer for more than 5 days. lisinopril 10 mg oral tablet (7 sources) Angiotensin Converting Enzyme Inhibitor take 1 tablet by mouth once daily lisinopril (PRINIVIL;ZESTRIL ) 10 MG tablet Indications: Blood Pressure Take 10 mg by mouth daily 0 Active Magnesium (20 sources) Start: 09-25-2020 take 1 tablet by mouth once daily Magnesium 200 mg tablet Active 200 mg PO DAILY September 25, 2020 12:00am Start: 09-25-2020 take 200 mg by mouth once asia y Magnesium Active 200 MG PO DAILY September 24, 2020 11:00pm Start: 09-25-2020 take 200 mg by mouth once asia y Magnesium Active 200 MG PO DAILY September 25, 2020 12:00am take 2 tablets by [facility] once daily magnesium (MAGNESIUM-OXIDE) 250 MG TABS tablet Indications: supplement Take 500 mg by mouth nightly Indications: supplement 0 Active morphine sulfate (PF) injection 2 mg (1 source) Start: 12-28-2018 morphine sulfate (PF) injection 2 mg ondansetron 4 mg disintegrating oral tablet (3 sources) Serotonin-3 Receptor Antagonist Start: 12-28-2018 take 1 tablet by mouth every eight hours as needed for nausea ondansetron (ZOFRAN ODT) 4 MG disintegrating tablet Take 1 tablet by mouth every 8 hours as needed for Nausea or Vomiting 30 tablet 1 12/28/2018 Active Start: 12-28-2018 4 mg, Intraven ous, EVERY 6 HOURS PRN, Nausea, Starting 12/28/18 at 1211, Post-op Pediatric Multivitamins-Iron (CHILDRENS MULTIVITAMIN/IRON PO) (4 sources) Start: 01-06-2019 take 2 tablets by mouth once daily Pediatric Multivitamins-Iron (CHILDRENS MULTIVITAMIN/IRON PO) Indications: supplement Take 2 tablets by mouth daily Indications: supplement 0 01/06/2019 Active potassium 99 mg extended release oral tablet (20 sources) Start: 12-15-2020 take 99 mg by mouth once daily potassium Active 99 mg PO DAILY December 15, 2020 12:00am take 1 tablet by mouth once asia y Potassium 99 MG TABS Indications: supplement Take 1 tablet by mouth daily Indications: supplement 0 Active potassium chloride 20 mEq in sodium chloride 0.45 % 1,000 mL infusion (1 source) Start: 12-28-2018 potassium chlo ride 20 mEq in sodium chloride 0.45 % 1,000 mL infusion potassium,chelated 99 mg oral tablet (1 source) take 1 tablet by mouth once daily Potassium 99 MG TABS Indications: supplement Take 1 tablet by mouth daily Indications: supplement 0 Active predniSONE 10 mg oral tablet (20 sources) Start: 02-07-2022 Prednisone Act vince 0 PO daily February 07, 2022 12:00am 4 tabs for 3 days, then 3 tabs for 3 days, then 2 tabs for 3 days, then 1 tab for 3 days PO QDAY; administer with food or milk Start: 08-27-2021 End: 11-20-2021 take 4 tablets by mouth once daily at mealtime Prednisone 10 mg tablet Discontinued 10 mg PO DAILY August 27, 2021 12:00am November 20, 2021 9:15am Take 4 tablets for 3 days; Take 3 tablets for 3 days; Take 2 tablets for 3 days; Take 1 tablet for 3 days Take with food or milk Start: 09-25-2020 End: 10-07-2020 Prednisone 10 mg tablet Discontinued 10 mg PO daily 30 September 25, 2020 12:00am October 06, 2020 12:00am October 07, 2020 12:01am Take 4 tabs once daily days 1-3 3 tabs once daily days 4-6 2 tabs once daily days 7-9 and 1 tab once daily days 10-12. 1 ml promethazine hydrochloride 25 mg/ml injection (1 source) Phenothiazine Start: 12-28-2018 promethazine ( PHENERGAN) injection 12.5 mg Semaglutide (5 sources) Start: 12-30-2023 Semaglutide 1 mg/dose (4 mg/3 mL) pen injector Active 1 mg SC MOFR December 30, 2023 12:00am 3 ml sodium chloride 9 mg/ml injection (2 sources) Start: 12-28-2018 10 mL, Intrave nous, EVERY 12 HOURS SCHEDULED (2 times per day), First dose on Fri12/28/18 at 2100, Post-op Start: 12-28-2018 take 10 mL intravenous route o nce 10 mL, Intravenous, PRN, Line Care, Starting Fri12/28/18 at 1211 After every IV line use Post-op triamcinolone acetonide 1 mg/ml topical cream (3 sources) Corticosteroid Start: 08-23-2021 Triamcinolone Acetonide Active 1 APPLIC TOPICAL TWICE A DAY 80 August 23, 2021 12:00am ursodiol 250 mg oral tablet (5 sources) Bile Acid Start: 09-12-2023 take 1 tablet by mouth twice daily Ursodiol 250 mg tablet Active 250 mg PO TWICE A DAY 60 September 12, 2023 12:00am vitamin b12 0.05 mg oral tablet (20 sources) Vitamin B12 Start: 09-25-2020 take 1 tablet by mouth once daily Cyanocobalamin (Vitamin B-12) (Vitamin B-12) 50 mcg tablet Active 50 ug PO DAILY September 25, 2020 12:00am Start: 01-28-2019 Cyanocobalamin (VITAMIN B-12) 500 MCG SUBL Indications: supplement Place 500 mcg under the tongue daily Indications: supplement 30 tablet 11 01/28/2019 Active Start: 01-06-2019 Cyanocobalamin (VITAMIN B-12) 500 MCG SUBL Indications: supplement Place 500 mcg under the tongue daily Indications: supplement 0 01/06/2019 Active take 1 tablet by angel th once daily vitamin B-12 (CYANOCOBALAMIN) 1000 MCG tablet Indications: Supplement Take 1,000 mcg by mouth daily Indications: Supplement 0 Active VITAMIN D, CHOLECALCIFEROL, PO (4 sources) Start: 01-06-2019 VITAMIN D, CHOLECALCIFEROL, PO Indications: supplement Take 4,000 Int'l Units by mouth daily Indications: supplement 0 01/06/2019 Active vitamin e 450 mg oral capsule (1 source) Start: 09-09-2024 take 1 capsule by mouth once daily Vitamin E (Dl, Acetate) 450 mg (1,000 unit) capsule Active 450 mg PO daily September 09, 2024 12:00am Zinc (3 sources) Start: 05-14-2021 take 50 mg by mouth once daily Zinc Active 50 MG PO DAILY May 14, 2021 1:00am Completed/Discontinued Medications Medication Drug Class(es) Dates Sig (Normalized) Sig (Original) acetaminophen 500 mg oral tablet (1 source) Start: 12-28-2018 End: 12-28-2018 acetaminophen (TYLENOL) tablet 1,000 mg ascorbic acid 1000 mg oral tablet (20 sources) Vitamin C Start: 12-15-2020 End: 11-18-2022 take 1 g by mouth once daily Ascorbic Acid (Vitamin C) 1,000 mg tablet Discontinued 1 g PO DAILY December 15, 2020 12:00am November 18, 2022 8:30am Start: 12-15-2020 End: 11-18-2022 take 1 g by mouth once daily Ascorbic Acid (Vitamin C) Discontinued 1 GM PO DAILY December 15, 2020 12:00am November 18, 2022 8:30am 24 hr buPROPion hydrochloride 150 mg extended release oral tablet (8 sources) Aminoketone take 1 tablet by mouth twice daily buPROPion XL (WELLBUTRIN XL) 150 mg 24 hr tablet Take 150 mg by mouth twice daily. 0 Active Comment on above: Take 150 mg by mouth twice daily. calcium chloride 0.0014 meq/ml / potassium chloride 0.004 meq/ml / sodium chloride 0.103 meq/ml / sodium lactate 0.028 meq/ml injectable solution (1 source) Start: 12-29-19 End: 12-29-19 lactated ringers infusion celecoxib 200 mg oral capsule (20 sources) Nonsteroidal Anti-inflammatory Drug Start: 08-21-19 End: 11-21-19 take 1 capsule by mouth once daily Celecoxib (Celebrex) 200 mg capsule Discontinued 200 mg PO DAILY August 20, 2021 12:00am November 20, 2021 9:15am clindamycin 300 mg oral capsule (20 sources) Lincosamide Antibacterial Start: 08-16-19 End: 09-26-19 take 1 capsule by mouth three times daily Clindamycin Hcl (Cleocin) 300 MG capsule Discontinued 300 mg PO THREE TIMES A DAY August 15, 2016 12:00am September 25, 2020 3:44pm Start: 11-15-2014 End: 12-12-2014 take 1 tablet by mouth three times daily CLEOCIN 300 MG CAPS One tablet by mouth three times daily CLINDAMYCIN HCL [id number] Helen Sales LPN cyclobenzaprine hydrochloride 10 mg oral tablet (20 sources) Muscle Relaxant Start: 12-15-2020 End: 01-29-2023 take 1 tablet by mouth three times daily as needed for muscle spasms Cyclobenzaprine 10 mg tablet Discontinued 0 .ROUTE .COMPLEX 60 August 26, 2022 12:57pm January 29, 2023 12:51pm TAKE 1 TABLET BY MOUTH 3 TIMES A DAY NEEDED FOR MUSCLE SPASMS Start: 09-14-2014 End: 09-25-2020 Cyclobenzaprine 10 MG tablet Discontinued 10 mg PO NEEDED as needed for HEADACHES September 14, 2014 12:00am September 25, 2020 3:44pm Comment on above: Take 10 mg by mouth three times daily as needed. doxycycline monohydrate 100 mg oral tablet (20 sources) Tetracycline-clas s Drug Start: 05-16-2022 End: 06-05-2022 take 1 tablet by mouth twice daily Doxycycline Monohydrate 100 mg tablet Discontinued 100 mg PO TWICE A DAY May 16, 2022 1:00am June 05, 2022 3:56pm Start: 06-28-2021 End: 08-10-2021 take 1 capsule by mouth twice daily Doxycycline Hyclate 100 mg capsule Discontinued 100 mg PO TWICE A DAY June 28, 2021 1:00am August 10, 2021 9:01am Take 1 capsule twice a day for 1 week. Hold Iron, Calcium, Magnesium and zinc supplementation while taking medication. gabapentin 300 mg oral capsule (1 source) Anti-epileptic Agent Start: 12-28-2018 End: 12-28-2018 gabapentin (NEURONTIN) capsule 300 mg hydrocortisone 10 mg/ml / neomycin 3.5 mg/ml / polymyxin b [id number] unt/ml otic suspension (20 sources) Aminoglycoside Antibacterial, Polymyxin-class Antibacterial, Corticosteroid Start: 08-10-2021 End: 08-20-2021 Egclwvrp-Gioxtawqh-A c 3.5-10,000-1 mg/mL-unit/mL-% drops,suspension Discontinued 4 NMA OTIC Q8H 10 August 10, 2021 12:00am August 19, 2021 12:00am August 20, 2021 12:03am Start: 08-10-2021 End: 08-20-2021 Mypwfrlx-Phhtncysu-Eb Discon tinued 4 DRP OTIC Q8H 10 August 10, 2021 12:00am August 20, 2021 12:03am 1 ml HYDROmorphone hydrochloride 1 mg/ml cartridge (2 sources) Opioid Agonist Start: 12-28-2018 End: 12-28-2018 HYDROmorphone (DILAUDID) injection 0.5 mg linaclotide 0.29 mg oral capsule (20 sources) Guanylate Cyclase-C Agonist Start: 01-26-2021 End: 09-05-2022 take 1 capsule by mouth once daily Linaclotide (Linzess) 290 mcg capsule Discontinued 290 ug PO DAILY June 04, 2021 2:09pm March 20, 2022 11:43am take 1 capsule by mouth once wilmer ly linaclotide (LINZESS) 290 MCG CAPS capsule Indications: IBS Take 290 mcg by mouth nightly 0 Active loratadine 10 mg oral capsule (20 sources) Start: 09-25-2020 End: 09-12-2023 take 1 capsule by mouth once daily Loratadine 10 mg capsule Discontinued 10 mg PO DAILY September 25, 2020 12:00am September 12, 2023 2:35pm Start: 09-14-2014 End: 09-25-2020 take 1 tablet by mouth once daily Loratadine (Allergy Relief (Loratadine)) 10 MG tablet Discontinued 10 mg PO DAILY September 14, 2014 12:00am September 25, 2020 3:44pm megestrol acetate 40 mg oral tablet (4 sources) Progestin End: 12-22-2018 take 1 tablet by mouth twice daily megestrol (MEGACE) 40 MG tablet Indications: 4 pills total- Complex Hyperplasia Take 40 mg by mouth 2 times daily 0 12/22/2018 Discontinued (LIST CLEANUP) 5 ml metoprolol tartrate 1 mg/ml injection (1 source) beta-Adrenergic Alec Start: 12-28-2018 End: 12-29-2018 2.5 mg, Intravenous, EVERY 6 HOURS, First dose on Fri12/28/18 at 1230 hold if SBP < 90 or HR < 60 metroNIDAZOLE 500 mg oral tablet (20 sources) Nitroimidazole Antimicrobial Start: 06-28-2021 End: 08-10-2021 take 1 tablet by mouth three times daily Metronidazole 500 mg tablet Discontinued 500 mg PO THREE TIMES A DAY June 28, 2021 4:40pm August 10, 2021 9:01am Multivitamin preparation (19 sources) Start: 09-25-2020 End: 04-01-2023 take 1 tablet by mouth once daily Multivitamin Discontinued 1 TABLET PO DAILY September 25, 2020 12:00am April 01, 2023 4:48pm Start: 09-25-2020 End: 04-01-2023 take 1 tablet by mouth once daily Multivitamin Discontinued 1 TABLET PO DAILY September 24, 2020 11:00pm April 01, 2023 3:48pm Start: 09-25-2020 take 1 tablet by angel th once daily Multivitamin Active 1 TABLET PO DAILY September 24, 2020 11:00pm Start: 09-25-2020 take 1 tablet by angel th once daily Multivitamin Active 1 TABLET PO DAILY September 25, 2020 12:00am Multivitamin tablet (5 sources) Start: 09-25-2020 End: 04-01-2023 Multivitamin tablet Discontinued 1 {tbl} PO DAILY September 25, 2020 12:00am April 01, 2023 4:48pm omeprazole 40 mg delayed release oral capsule (20 sources) Proton Pump Inhibitor Start: 09-14-2014 End: 09-25-2020 take 1 capsule by mouth at bedtime Omeprazole 40 MG capsule,delayed release(DR/EC) Discontinued 40 mg PO AT BEDTIME September 14, 2014 12:00am September 25, 2020 3:44pm take 1 tablet by mouth once asia y PRILOSEC 40 MG ORAL CPDR One tablet by mouth daily OMEPRAZOLE [id number] Aziza Simons Comment on above: Take 40 mg by mouth once daily. pantoprazole 40 mg delayed release oral tablet (20 sources) Proton Pump Inhibitor Start: 3 End: 4 take 1 tablet by mouth twice daily Pantoprazole 40 mg tablet,delayed release (DR/EC) Discontinued 40 mg PO TWICE A DAY 120 January 01, 2024 7:07am March 17, 2024 3:21pm polyethylene glycol 3350 56505 mg powder for oral solution (20 sources) Osmotic Laxative Start: 5 End: 1 take 17 g by mouth once daily Polyethylene Glycol 3350 17 GM packet Discontinued 17 g PO DAILY September 14, 2014 12:00am September 25, 2020 3:44pm Polyethylene Glycols (18 sources) POLYETHYLENE GLY COL 3350 (MIRALAX ORAL) Take by mouth once daily. 0 Active take 17 g by mouth once daily Po lyethylene Glycol 3350 (MIRALAX PO) Indications: Bowel Movements Take 17 g by mouth daily 0 Active Comment on above: Take by mouth once d aily. potassium chloride 20 meq powder for oral solution (20 sources) Start: 1 End: 1 take 20 mEq by mouth once daily Potassium Chloride 20 mEq packet Discontinued 20 meq PO DAILY September 25, 2020 12:00am December 15, 2020 1:34pm 24 hr propranolol hydrochloride 60 mg extended release oral capsule (20 sources) beta-Adrenergic Alec Start: 5 End: 1 take 1 capsule by mouth every twenty-four hours at bedtime Propranolol (Inderal La) 60 MG capsule,extended release 24 hr Discontinued 60 mg PO AT BEDTIME September 14, 2014 12:00am September 25, 2020 3:44pm Start: 07-22-2006 INDERAL LA 120 MG 24 HR CAP Take one(1) tablet daily. 0 07/22/2006 Active take 1 capsule by mo uth once daily propranolol (INDERAL LA) 60 MG extended release capsule Indications: Headaches Take 60 mg by mouth daily 0 Active take 1 tablet by angel th once daily INDERAL LA 60 MG [id number] One tablet by mouth daily PROPRANOLOL HCL [id number] Blair Villareal take 1 tablet by angel th once daily INDERAL LA 60 MG [id number] One tablet by mouth daily PROPRANOLOL HCL [id number] Aziza Simons Comment on above: Take one(1) tablet d ailaj. sucralfate 1000 mg oral tablet (20 sources) Aluminum Complex Start: End: take 1 tablet by mouth three times daily before mealtime Sucralfate 1 gram tablet Discontinued 1 g PO THREE TIMES DAILY BEFORE MEALS 90 May 01, 2023 2:42pm March 17, 2024 3:21pm Start: 11-01-2022 End: 04-02-2023 take 1 tablet by mouth three times daily before mealtime Sucralfate 1 gram tablet Discontinued 1 g PO THREE TIMES DAILY BEFORE MEALS 90 March 03, 2023 3:43pm April 01, 2023 1:00am April 02, 2023 1:04am Start: 03-22-2022 End: 11-01-2022 take 1 mL by mouth twice daily Sucralfate (Carafate) 1 00 mg/mL suspension Discontinued 10 mL PO TWICE A DAY June 05, 2022 4:24pm November 01, 2022 10:01am SUMAtriptan 50 mg oral tablet (20 sources) Serotonin-1b and Serotonin-1d Receptor Agonist Start: 09-21-2009 End: 07-24-2021 Sumatriptan Succinate 50 MG tablet Discontinued 50 mg PO .X1 PRN September 14, 2014 12:00am September 25, 2020 3:44pm take 1 tablet by mouth once as n eeded SUMAtriptan (IMITREX) 50 MG tablet Take 50 mg by mouth once as needed for Migraine 0 Active Comment on above: Use as directed as n eeded. topiramate 100 mg oral tablet (20 sources) Anti-epileptic Agent Start: 08-09-2016 End: 09-25-2020 take 1 tablet by mouth at bedtime Topiramate 100 MG tablet Discontinued 100 mg PO AT BEDTIME August 09, 2016 12:00am September 25, 2020 3:45pm Comment on above: Take 100 mg by mouth once daily. Problems Active Problems Problem Classification Problem Date Documented Da te Episodic/Chronic Allergic reactions (3 sources) Dermatitis, unspecified; Translations: [Contact dermatitis and other eczema, unspecified cause] Episodic Anxiety disorders (1 source) Other specified anxiety disorders; Translations: [Other specified anxiety disorders] Onset: 5 Chronic Coma; stupor; and brain damage (10 sources) Daytime somnolence; Translations: [Daytime sleepiness] 02-18-2018 Episodic Deficiency and other anemia (20 sources) Anemia; Translations: [Anemia, unspecified] 10-29-2022 Episodic Diabetes mellitus without complication (20 sources) Prediabetes; Translations: [Hyperglycemia] 10-29-2022 Episodic Disorders of teeth and jaw (3 sources) Disorder of teeth and supporting structures, unspecified; Translations: [Unspecified disorder of the teeth and supporting structures] Episodic Esophageal disorders (18 sources) Gastroesophageal reflux disease; Translations: [Gastro-esophageal reflux disease without esophagitis] 05-05-2018 Chronic Comment on above: CONTROLLED WITH MED Essential hypertension (20 sources) Hypertensive disorder; Translations: [Essential (primary) hypertension] Resolved: 9 02-18-2018 Chronic Gastrointestinal hemorrhage (1 source) Chronic or unspecified gastrojejunal ulcer with hemorrhage; Translations: [Chronic or unspecified gastrojejunal ulcer with hemorrhage] Onset: 5 Chronic Gastrointestinal hemorrhage (20 sources) Gastrointestinal hemorrhage; Translations: [Hemorrhage of anus and rectum] 10-29-2022 Episodic Comment on above: 10/2022 Immunizations and screening for infectious disease (20 sources) Suspected disease caused by 2019-nCoV; Translations: [Suspected COVID-19 virus infection] 05-04-2021 Episodic Malaise and fatigue (10 sources) Fatigue; Translations: [Fatigue] 02-18-2018 Episodic Menstrual disorders (10 sources) Irregular periods; Translations: [Irregular menstrual cycle] 02-18-2018 Chronic Neoplasms of unspecified nature or uncertain behavior (20 sources) Monoclonal gammopathy of uncertain significance; Translations: [Monoclonal gammopathy] Onset: 5 04-01-2023 Chronic Comment on above: M-spike 0.4 IgG Miller da light chain on 12/23/2023.Skeletal survey is normal on 04/03/2023.Comes for follow up.M-spike 0.3 on 06/22/2024. Nonmalignant breast conditions (5 sources) Fibrocystic disease of breast; Translations: [Diffuse cystic mastopathy of unspecified breast] Onset: 5 03-27-2015 Chronic Nonspecific chest pain (10 sources) Non-cardiac chest pain; Translations: [Other chest pain] 04-22-2023 Episodic Open wounds of head; neck; and trunk (20 sources) Laceration of lower lip ; Translations: [Laceration without foreign body of lip, initial encounter] 10-29-2022 Episodic Other and unspecified benign neoplasm (20 sources) Lipoma of back; Translations: [Benign lipomatous neoplasm of skin and subcutaneous tissue of trunk] 05-28-2021 Episodic Comment on above: Patient brings up th at she has lumps in her bilateral lower back and right anterior thigh question about any possible cervical lymphadenopathy. This is briefly examined on the patient's left flank and exam is consistent with a small (approximately 1.5 cm) lipoma. She is informed that these could be addressed with simple excision at a later date should they become bothersome to her. Other and unspecified benign neoplasm (20 sources) Hemangioma; Translations: [Hemangioma unspecified site] 01-26-2021 Episodic Other circulatory disease (20 sources) Elevated blood-pressure reading without diagnosis of hypertension; Translations: [Elevated blood-pressure reading, without diagnosis of hypertension] 01-26-2021 Episodic Other connective tissue disease (20 sources) Ganglion of wrist; Translations: [Ganglion, unspecified wrist] Onset: 7 07-03-2016 Episodic Other connective tissue disease (20 sources) Tenosynovitis of left radial styloid; Translations: [Radial styloid tenosynovitis [de Quervain]] 08-20-2021 Episodic Other connective tissue disease (1 source) Ganglion, unspecified site; Translations: [Ganglion, unspecified] Episodic Other connective tissue disease (1 source) Radial styloid tenosynovitis [de Quervain]; Translations: [Radial styloid tenosynovitis] Episodic Other connective tissue disease (9 sources) Ganglion, unspecified wrist; Translations: [Ganglion of joint] Episodic Other ear and sense organ disorders (1 source) Unspecified otitis externa, right ear; Translations: [Infective otitis externa, unspecified] Chronic Other gastrointestinal disorders (2 sources) Intestinal malabsorption; Translations: [Intestinal malabsorption] Onset: 0 04-27-2019 Chronic Other gastrointestinal disorders (20 sources) Chronic constipation; Translations: [Other constipation] 01-26-2021 Episodic Other gastrointestinal disorders (20 sources) History of bypass of stomach; Translations: [Bariatric surgery status] 02-27-2022 Episodic Comment on above: Patient with gastric bypass anatomy with prior issues of dysphagia preoperatively that have now recurred. Patient has otherwise had an uneventful postoperative course following her 2019 bypass procedure Other gastrointestinal disorders (20 sources) Dysphagia; Translations: [Dysphagia, unspecified] Episodic Comment on above: Patient is a 47-year -old with recurrent complaints of dysphagia and thyroid ultrasound shows new growth of nodules. See above for complete details Other gastrointestinal disorders (2 sources) Constipation; Translations: [Constipation, unspecified] 09-09-2024 Episodic Other inflammatory condition of skin (2 sources) Pruritus, unspecified; Translations: [Unspecified pruritic disorder] Episodic Other liver diseases (20 sources) Steatosis of liver; Translations: [Fatty (change of) liver, not elsewhere classified] Onset: 9 12-03-2018 Chronic Other liver diseases (2 sources) Fatty (change of) liver, not elsewhere classified; Translations: [Fatty (change of) liver, not elsewhere classified] Onset: 5 Chronic Other lower respiratory disease (10 sources) Dyspnea on exertion; Translations: [Shortness of breath on exertion] 02-18-2018 Episodic Other nervous system disorders (1 source) Postoperative pain ; Translations: [Post-op pain] Episodic Other nervous system disorders (20 sources) Paresthesia; Translations: [Paresthesia of skin] 04-11-2021 Episodic Other non-traumatic joint disorders (20 sources) Hip pain; Translations: [Pain in left hip] 12-15-2020 Episodic Other nutritional; endocrine; and metabolic disorders (11 sources) Morbid obesity; Translations: [Morbid obesity] 02-18-2018 Chronic Other nutritional; endocrine; and metabolic disorders (8 sources) Body mass index 40+ - severely obese; Translations: [Morbid obesity with BMI of 50.0-59.9, adult] Onset: 9 12-03-2018 Chronic Other skin disorders (20 sources) Localized swelling of left hand; Translations: [Localized swelling, mass and lump, left upper limb] 01-26-2021 Episodic Other skin disorders (20 sources) Mass of skin of left lower leg; Translations: [Localized swelling, mass and lump, left lower limb] 06-05-2022 Episodic Other skin disorders (2 sources) Localized swelling, mass and lump, left lower limb; Translations: [Localized superficial swelling, mass, or lump] 06-05-2022 Episodic Other upper respiratory disease (20 sources) Vocal cord paralysis; Translations: [Paralysis of vocal cords and larynx, unilateral] 02-27-2022 Chronic Comment on above: Patient with history of left thyroid lobectomy and now unilateral, 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 Waterman of ENT on 06/15/2021. Because of this issue, I do not believe surgical intervention for patient's benign appearing right thyroid cyst is the safest approach for dealing with this issue. Other upper respiratory disease (9 sources) Paralysis of vocal cords and larynx, unilateral; Translations: [Unilateral paralysis of vocal cords or larynx, complete] Chronic Other upper respiratory disease (20 sources) Vocal cord dysfunction; Translations: [Other diseases of vocal cords] 05-28-2021 Episodic Other upper respiratory infections (20 sources) Upper respiratory infection; Translations: [Acute upper respiratory infection, unspecified] 05-04-2021 Episodic Residual codes; unclassified (13 sources) Obstructive sleep apnea syndrome; Translations: [PETER on CPAP] 02-18-2018 Chronic Residual codes; unclassified (20 sources) Sleep apnea; Translations: [Sleep apnea, unspecified] 12-15-2020 Chronic Residual codes; unclassified (20 sources) History of thyroid lobectomy; Translations: [Acquired absence of other part of head and neck] 01-08-2021 Episodic Comment on above: Patient has a histor y of a left thyroid lobectomy. Unfortunately we were unable to find the final pathology from this procedure searching both [facility] and [facility] records. She appears to have had an uneventful postoperative recovery. However, her reports of fatigue, constipation, dry skin, and hair loss are suggestive of possible thyroid dysfunction. Last TSH I am able to find this from December 31, 2017 which was in the range of normal. I have informed Ms. bui that an abnormally elevated TSH can contribute to nodule growth and therefore we need to obtain an updated lab to see if she is indeed hypothyroid. Residual codes; unclassified (3 sources) Other specified postprocedural states; Translations: [Other postprocedural status] Episodic Skull and face fractures (20 sources) Fracture of tooth ; Translations: [Fracture of tooth (traumatic), initial encounter for closed fracture] 10-29-2022 Episodic Spondylosis; intervertebral disc disorders; other back problems (6 sources) Degeneration of lumbosacral intervertebral disc; Translations: [Degeneration of intervertebral disc at L5-S1 level] 02-19-2024 Chronic Spondylosis; intervertebral disc disorders; other back problems (20 sources) Low back pain; Translations: [Low back pain] Onset: 4 04-01-2023 Episodic Syncope (20 sources) Syncope; Translations: [Syncope and collapse] 10-29-2022 Episodic Thyroid disorders (20 sources) Thyroid nodule; Translations: [Nontoxic single thyroid nodule] Onset: 5 04-11-2015 Chronic Comment on above: Patient with a right thyroid nodule that has again experienced recent growth. Since December it grew 0.2 to 0.3 cm in the transverse and anterior posterior dimensions. Also according to today's ultrasound, this nodule was predominantly cystic with a number of septations. It is my suspicion, the patient is experiencing some more mass-effect from this cystic growth. I offered her interim aspiration to see if this would alleviate some of her symptoms. I have been careful to caution her that this may only be a temporary relief of symptoms. She is willing to see what the result may be and therefore we undertook thyroid aspiration under ultrasound guidance during today's visit. See appended note for complete documentation. The procedure did seem to proceed successfully as the patient experienced an overall reduction in size both transversely and longitudinally by 0.3 cm, respectively. If this does result in improvement but this improvement is self limited, I have cautioned patient on need for a completion thyroidectomy. Patient with persist ent cystic nodule of the remaining thyroid lobe and now a newly enlarged cystic nodule in the medial aspect of the lobe. Although these nodules are admittedly not large in size, it is interesting that patient has described an increase in her symptoms with demonstrable growth in her thyroid nodules by ultrasound. Once again, I have tried to dissuade her from surgical management of her condition despite her history of recurrence and shared with her the risk of injury to the remaining right lower recurrent laryngeal nerve behooves us to look for an alternative such as RFA or injection of a sclerosant. Unfortunately I have interventional technologist with either, but have offered to try a new referral. In the meantime I offered aspiration of the cysts and she expressed agreement with this recommendation for symptom relief. Procedure was undertaken in uncomplicated fashion and the colloid material was submitted to pathology for cytologic evaluation. Wound care instructions were provided. Unclassified (4 sources) Aftercare ; Translations: [Encounter for other specified surgical aftercare] Onset: 08-27-2016 Unclassified (1 source) Patient encounter status; Translations: [Screening for diabetes mellitus] Unclassified (1 source) M51.379 - Other intervertebral disc degeneration, lumbosacral region without mention of lumbar back pain or lower extremity pain Unclassified (1 source) Low back pain, unspecified; Translations: [Low back pain, unspecified] Onset: 4 Past or Other Problems Problem Classification Problem Date Documented Da te Episodic/Chronic Abdominal hernia (11 sources) Hiatal hernia; Translations: [Hiatal hernia] Onset: 05-05-2018 05-05-2018 Episodic Abdominal pain (1 source) Epigastric pain; Translations: [Epigastric pain] Onset: 06-01-2024 Episodic Complications of surgical procedures or medical care (5 sources) Non-healing surgical wound; Translations: [Non-healing surgical wound] Onset: 12-12-2014 12-12-2014 Episodic Deficiency and other anemia (11 sources) Anemia, unspecified; Translations: [Anemia, unspecified] Onset: 06-01-2024 10-29-2022 Episodic Diabetes mellitus without complication (12 sources) Diabetes mellitus; Translations: [Type 2 diabetes mellitus] Resolved: 01-28-2019 02-18-2018 Chronic Neoplasms of unspecified [...] of wrist] Onset: 08-29-2014 08-30-2014 Episodic Other gastrointestinal disorders (16 sources) Bariatric surgery status; Translations: [Bariatric surgery status] Onset: 06-01-2024 Episodic Other gastrointestinal disorders (7 sources) Dysphagia, unspecified; Translations: [Dysphagia, unspecified] Onset: 06-01-2024 Episodic Other nervous system disorders (5 sources) Disturbance of skin sensation; Translations: [Disturbance of skin sensation] Onset: 08-29-2014 08-30-2014 Episodic Other non-traumatic joint disorders (5 sources) Pain in wrist; Translations: [Pain in unspecified wrist] Onset: 07-03-2016 07-03-2016 Episodic Other non-traumatic joint disorders (1 source) Pain in unspecified joint; Translations: [Pain in unspecified joint] Onset: 06-21-2024 Episodic Other screening for suspected conditions (not mental disorders or infectious disease) (20 sources) Patient encounter status; Translations: [Encounter for other screening for malignant neoplasm of breast] Onset: 04-23-2024 01-26-2021 Episodic Other skin disorders (9 sources) Localized swelling, mass and lump, unspecified; Translations: [Inflamed seborrheic keratosis] Onset: 08-29-2014 08-30-2014 Episodic Other skin disorders (1 source) Inflamed seborrheic keratosis; Translations: [Inflamed seborrheic keratosis] Onset: 11-15-2014 11-27-2014 Episodic Results Test Name Value Interpretation Reference Range Facility Estrogen, Total, Serumon ESTROGENS,TOTAL 181 pg/mL Normal . [facility] Comment on above: Order Comment: N Result Comment: Prep ubertal < 40 Female Cycle: 1-10 Days 16 - 328 11-20 Days 34 - 501 21-30 Days 48 - 350 Post-Menopausal 40 - 244 Performed By: #### L 3400.0200 #### [facility] [address] [place], [address] PROLACTIN 4465on 09-18-2024 PROLACTIN 11.4 ng/mL Normal 4.8-33.4 [facility] Comment on above: Performed By: #### L 3300.1750, L500.4050, L801.2600, L501.9520, L506.0400, L3100.5400, L3100.5310, L3100.5055, L3300.6900 ####[facility] [address] [place], [address] Testosterone, Total / Freeon 09-18-2024 TESTOSTER,FREE 0.13 ng/dL Normal 0.10-0.85 [facility] Comment on above: Order Comment: N Performed By: #### L 3300.1750, L500.4050, L801.2600, L501.9520, L506.0400, L3100.5400, L3100.5310, L3100.5055, L3300.6900 ####[facility] [address] [place], [address] TESTOSTER,TOTAL 7 ng/dL Normal 4-50 [facility] Comment on above: Order Comment: N Performed By: #### L 3300.1750, L500.4050, L801.2600, L501.9520, L506.0400, L3100.5400, L3100.5310, L3100.5055, L3300.6900 ####[facility] [address] [place], [address] TESTOSTERONE,%F 1.86 Normal 0.50-2.80 [facility] Comment on above: Order Comment: N Performed By: #### L 3300.1750, L500.4050, L801.2600, L501.9520, L506.0400, L3100.5400, L3100.5310, L3100.5055, L3300.6900 ####[facility] [address] [place], [place], [phone] Thyroid Peroxidase ABon 05-3 THYR PEROX AB 9 IU/mL Normal 0-34 [facility] Comment on above: Result Comment: Perf ormed at: [address] [id number] Header Operator: Dipesh Nagy PhD, Phone: [phone] Performed at: [address] [id number] Header Operator: Dhaval Vazquez MD, Phone: [phone] Performed By: #### L 3300.1750, L500.4050, L801.2600, L501.9520, L506.0400, L3100.5400, L3100.5310, L3100.5055, L3300.6900 ####[facility] [address] [place], [address] PROGESTERONE 4317on 09-17-19 25 PROGESTERONE 0.2 ng/mL Normal . [facility] Comment on above: Order Comment: N Result Comment: Foll icular phase 0.1 - 0.9 Luteal phase 1.8 - 23.9 Ovulation phase 0.1 - 12.0 First trimester 11.0 - 44.3 Second trimester 25.4 - 83.3 Third trimester 58.7 - 214.0 Postmenopausal 0.0 - 0.1 Performed at: [facility] [address] [place] [id number] Header Operator: Dipesh Nagy PhD, Phone: [phone] Performed By: #### L 3300.1750, L500.4050, L801.2600, L501.9520, L506.0400, L3100.5400, L3100.5310, L3100.5055, L3300.6900 ####[facility] [address] [place], [place], [phone] Anion gap in Serum or Plasma Ordered By: Adriana Irene on 09-15-2024 Anion gap [Moles/Vol] 12 mmol/L 5-15 [facility] BUN/creatinine ratioOrdered By: Adriana Irene on 09-15-2024 Urea nitrogen/Creatinine [Mass ratio] 12.7 mg/mg 10-20 [facility] Bilirubin, totalOrdered By: Adriana Irene on 09-15-2024 Bilirubin [Mass/Vol] 0.28 mg/dL 0.00-1.30 [facility] Carbon dioxide, total [Moles /volume] in Central venous bloodOrdered By: Adriana Irene on 09-15-2024 CO2 [Moles/Vol] 23.4 mmol/L 21.0-32.0 [facility] Chloride assayOrdered By: Nori Irene on 09-15-2024 Chloride [Moles/Vol] 105 mmol/L 98-108 [facility] Comprehensive Metabolic Prof ilon 09-15-2024 Albumin [Mass/Vol] 4.2 g/dL Normal 3.5-5.0 [facility] Comment on above: Performed By: #### L 3300.1750, L500.4050, L801.2600, L501.9520, L506.0400, L3100.5400, L3100.5310, L3100.5055, L3300.6900 #### [facility] [address] [place], [address] Albumin/Globulin [Mass ratio] 1.5 {ratio} Normal 0.9-2.4 [facility] Comment on above: Performed By: #### L 3300.1750, L500.4050, L801.2600, L501.9520, L506.0400, L3100.5400, L3100.5310, L3100.5055, L3300.6900 #### [facility] [address] [place], [address] ALK PHOS 79 U/L Normal 35-104 [facility] Comment on above: Performed By: #### L 3300.1750, L500.4050, L801.2600, L501.9520, L506.0400, L3100.5400, L3100.5310, L3100.5055, L3300.6900 #### [facility] [address] [place], [place], [phone] ([phone] ALT [Catalytic activity/Vol] 13 U/L Normal <=34 [facility] Comment on above: Performed By: #### L 3300.1750, L500.4050, L801.2600, L501.9520, L506.0400, L3100.5400, L3100.5310, L3100.5055, L3300.6900 #### [facility] [address] [place], [place], [phone] ([phone]) AST [Catalytic activity/Vol] 18 U/L Normal <=31 [facility] Comment on above: Performed By: #### L 3300.1750, L500.4050, L801.2600, L501.9520, L506.0400, L3100.5400, L3100.5310, L3100.5055, L3300.6900 #### [facility] [address] [place], [place], [phone] (438) Bilirubin [Mass/Vol] 0.28 mg/dL Normal 0.00-1.30 [facility] Comment on above: Performed By: #### L 3300.1750, L500.4050, L801.2600, L501.9520, L506.0400, L3100.5400, L3100.5310, L3100.5055, L3300.6900 #### [facility] [address] [place], [place], [phone] (349) BUN/CRE 12.7 RATIO Normal 10-20 [facility] Comment on above: Performed By: #### L 3300.1750, L500.4050, L801.2600, L501.9520, L506.0400, L3100.5400, L3100.5310, L3100.5055, L3300.6900 #### [facility] [address] [place], [address] Calcium [Mass/Vol] 9.0 mg/dL Normal 7.6-11.0 [facility] Comment on above: Performed By: #### L 3300.1750, L500.4050, L801.2600, L501.9520, L506.0400, L3100.5400, L3100.5310, L3100.5055, L3300.6900 #### [facility] [address] [place], [place], [phone] Chloride [Moles/Vol] 105 mmol/L Normal 98-108 [facility] Comment on above: Performed By: #### L 3300.1750, L500.4050, L801.2600, L501.9520, L506.0400, L3100.5400, L3100.5310, L3100.5055, L3300.6900 #### [facility] [address] [place], [address] CO2 [Moles/Vol] 23.4 mmol/L Normal 21.0-32.0 [facility] Comment on above: Performed By: #### L 3300.1750, L500.4050, L801.2600, L501.9520, L506.0400, L3100.5400, L3100.5310, L3100.5055, L3300.6900 #### [facility] [address] [place], [address] Creatinine [Mass/Vol] 0.51 mg/dL Low 0.70-1.20 [facility] Comment on above: Performed By: #### L 3300.1750, L500.4050, L801.2600, L501.9520, L506.0400, L3100.5400, L3100.5310, L3100.5055, L3300.6900 #### [facility] [address] [place], [address] GAP 12 Normal 5-15 [facility] Comment on above: Performed By: #### L 3300.1750, L500.4050, L801.2600, L501.9520, L506.0400, L3100.5400, L3100.5310, L3100.5055, L3300.6900 #### [facility] [address] [place], [address] GFR/1.73 sq M.predicted among non-blacks MDRD (S/P/Bld) [Vol rate/Area] 116 mL/min/{1.73_m2} Normal >60 [facility] Comment on above: Result Comment: mL/m in/1.73m2 CKD-EPI Creatinine Equation (2020) Performed By: #### L 3300.1750, L500.4050, L801.2600, L501.9520, L506.0400, L3100.5400, L3100.5310, L3100.5055, L3300.6900 #### [facility] [address] [place], [address] Globulin (S) [Mass/Vol] 2.8 g/dL Normal 2.2-4.2 [facility] Comment on above: Performed By: #### L 3300.1750, L500.4050, L801.2600, L501.9520, L506.0400, L3100.5400, L3100.5310, L3100.5055, L3300.6900 #### [facility] [address] [place], [address] Glucose [Mass/Vol] 85 mg/dL Normal 70-99 [facility] Comment on above: Performed By: #### L 3300.1750, L500.4050, L801.2600, L501.9520, L506.0400, L3100.5400, L3100.5310, L3100.5055, L3300.6900 #### [facility] [address] [place], [place], [phone] Potassium [Moles/Vol] 3.9 mmol/L Normal 3.3-5.1 [facility] Comment on above: Performed By: #### L 3300.1750, L500.4050, L801.2600, L501.9520, L506.0400, L3100.5400, L3100.5310, L3100.5055, L3300.6900 #### [facility] [address] [place], [place], [phone] (411) Sodium [Moles/Vol] 140 mmol/L Normal 133-145 [facility] Comment on above: Performed By: #### L 3300.1750, L500.4050, L801.2600, L501.9520, L506.0400, L3100.5400, L3100.5310, L3100.5055, L3300.6900 #### [facility] [address] [place], [place], [phone] (918) T PROT 6.9 g/dL Normal 5.9-8.4 [facility] Comment on above: Performed By: #### L 3300.1750, L500.4050, L801.2600, L501.9520, L506.0400, L3100.5400, L3100.5310, L3100.5055, L3300.6900 #### [facility] [address] [place], [place], [phone] (310) Urea nitrogen [Mass/Vol] 7 mg/dL Normal 4-19 [facility] Comment on above: Performed By: #### L 3300.1750, L500.4050, L801.2600, L501.9520, L506.0400, L3100.5400, L3100.5310, L3100.5055, L3300.6900 #### [facility] [address] [place], [place], [phone] Estradiolon 09-15-2024 ESTRADIOL 107.0 pg/mL Normal [facility] Comment on above: Result Comment: FEMA LES ADULT FEMALE: Premenopausal: 15-350 pg/mL(E2 levels vary widely through the menstrual cycle) Postmenopausal: <10 pg/mL GUME STAGES MEAN AGE REFERENCE RANGES Stage I(>14 days and prepubertal) 7.1 years Undetectable-20 pg/mLL Stage II 10.5 years Undetectable-24 pg/mL Stage III 11.6 years Undetectable-60 pg/mL Stage IV 12.3 years 15-85 pg/mL Stage V 14.5 years 15-350 pg/mL Puberty onset (transition from Gume stage I to Gume stage II) occurs for girls at a median age of 10.5 (/- 2) years. There is evidence that it may occur up to 1 year earlier in obese girls and in girls. Progression through Gume stages is variable. Gume stage V (adult) should be reached by age 18. Performed By: #### L 3300.1750, L500.4050, L801.2600, L501.9520, L506.0400, L3100.5400, L3100.5310, L3100.5055, L3300.6900 #### [facility] [address] [place], [place], [address] FSH and LHon 09-15-2024 FSH 6.4 mIU/mL Normal [facility] Comment on above: Result Comment: FEMA LE: Follicular: 1.4 - 18.1 mIU/mL Midcycle: 3.4 - 33.4 mIU/mL Luteal: 1.5 - 9.1 mIU/mL Post Menopause: 23.0 - 116.3 mIU/mL MALE: 1.4 - 18.1 mIU/mL Performed By: #### L 3300.1750, L500.4050, L801.2600, L501.9520, L506.0400, L3100.5400, L3100.5310, L3100.5055, L3300.6900 #### [facility] [address] [place], [place], [phone] LH 11.3 mIU/mL Normal [facility] Comment on above: Result Comment: FEMA LE: Follicular: 1.9-12.5 mIU/mL Midcycle: 8.7-76.3 mIU/mL Luteal: 0.5-16.9 mIU/mL Post Menopause: 15.9-54.0 mIU/mL MALE: 20-70 Years: 1.5-9.3 mIU/mL >70 Years: 3.1-34.6 mIU/mL Performed By: #### L 3300.1750, L500.4050, L801.2600, L501.9520, L506.0400, L3100.5400, L3100.5310, L3100.5055, L3300.6900 #### [facility] [address] [place], [place], [phone] Free testosterone percentage Ordered By: Adriana Irene on 09-15-2024 Testosterone Free/Testosterone.total [Mass fraction] 1.86 % 0.50-2.80 [facility] Glomerular filtration rate ( GFR) estimation/1.73 sq m using serum, plasma, or whole bOrdered By: Adriana Irene on 09-15-2024 GFR/1.73 sq M.predicted among non-blacks MDRD (S/P/Bld) [Vol rate/Area] 116 mL/min/{1.73_m2} >60 [facility] Comment on above: mL/min/1.73m2 CKD-EP I Creatinine Equation (2020) Laboratory - Chemistry and C hemistry - challengeOrdered By: Adriana Irene on 09-15-2024 AST [Catalytic activity/Vol] 18 U/L <32 [facility] Potassium measurement (mass/ volume)Ordered By: Adriana Irene on 09-15-2024 Potassium (Unsp spec) [Mass/Vol] 3.9 mmol/L 3.3-5.1 [facility] Serum creatinine measurement (mass/volume)Ordered By: Adriana Irene on 09-15-2024 Creatinine [Mass/Vol] 0.51 mg/dL Low 0.70-1.20 [facility] Serum globulin measurementOr dered By: Adriana Irene on 09-15-2024 Globulin (S) [Mass/Vol] 2.8 g/dL 2.2-4.2 [facility] Serum glucose measurement (m ass/volume)Ordered By: Adriana Irene on 09-15-2024 Glucose [Mass/Vol] 85 mg/dL 70-99 [facility] Serum or plasma alanine grajeda otransferase (ALT) measurementOrdered By: Adriana Irene on 09-15-2024 ALT [Catalytic activity/Vol] 13 U/L <35 [facility] Serum or plasma albumin erick urement (mass/volume)Ordered By: Adriana Irene on 09-15-2024 Albumin [Mass/Vol] 4.2 g/dL 3.5-5.0 [facility] Serum or plasma albumin/glob ulin mass ratioOrdered By: Adriana Irene on 09-15-2024 Albumin/Globulin [Mass ratio] 1.5 {ratio} 0.9-2.4 [facility] Serum or plasma alkaline lissette sphatase measurementOrdered By: Adriana Irene on 09-15-2024 ALP [Catalytic activity/Vol] 79 U/L 35-104 [facility] Serum or plasma calcium erick urement (mass/volume)Ordered By: Adriana Irene on 09-15-2024 Calcium [Mass/Vol] 9.0 mg/dL 7.6-11.0 [facility] Serum or plasma estradiol me asurement after follitropin dose (mass/volume)Ordered By: Adriana Irene on 09-15-2024 E2 post dose follitropin [Mass/Vol] 107.0 pg/mL [facility] Comment on above: FEMALES ADULT FEMALE : Premenopausal: 15-350 pg/mL(E2 levels vary widely through the menstrual cycle) Postmenopausal: <10 pg/mL GUME STAGES MEAN AGE REFERENCE RANGES Stage I(>14 days and prepubertal) 7.1 years Undetectable-20 pg/mLL Stage II 10.5 years Undetectable-24 pg/mL Stage III 11.6 years Undetectable-60 pg/mL Stage IV 12.3 years 15-85 pg/mL Stage V 14.5 years 15-350 pg/mL Puberty onset (transition from Gume stage I to Gume stage II) occurs for girls at a median age of 10.5 (/- 2) years. There is evidence that it may occur up to 1 year earlier in obese girls and in girls.Progression through Gume stages is variable. Gume stage V (adult) should be reached by age 18. Serum or plasma free testost erone measurement (mass/volume)Ordered By: Adriana Irene on 09-15-2024 Testosterone Free [Mass/Vol] 0.13 ng/dL 0.10-0.85 [facility] Serum or plasma prolactin me asurement (mass/volume)Ordered By: Adriana Irene on 09-15-2024 Prolactin [Mass/Vol] 11.4 ng/mL 4.8-33.4 [facility] Serum or plasma thyroperoxid ase antibody assay (units/volume)Ordered By: Adriana Irene on 09-15-2024 TPO Ab Qn 9 [IU]/mL 0-34 [facility] Comment on above: Performed at: [address] [id number] Director: Dipesh Nagy PhD, Phone: [phone] at: [facility] [id number] Director: Dhaval Vazquez MD, Phone: [phone] Serum or plasma urea nitroge n measurement (mass/volume)Ordered By: Adriana Irene on 09-15-2024 Urea nitrogen [Mass/Vol] 7 mg/dL 4-19 [facility] Sodium levelOrdered By: Conor Irene on 09-15-2024 Sodium [Moles/Vol] 140 mmol/L 133-145 [facility] T4 Free Directon 09-15-2024 T4 FREE DIRECT 1.10 ng/dL Normal 0.76-1.46 [facility] Comment on above: Order Comment: N Performed By: #### L 3300.1750, L500.4050, L801.2600, L501.9520, L506.0400, L3100.5400, L3100.5310, L3100.5055, L3300.6900 #### [facility] [address] [place], [place], [id number] T4 freeOrdered By: Ardiana Michael morin on 09-15-2024 Free T4 [Mass/Vol] 1.10 ng/dL 0.76-1.46 [facility] TSH DL <= 0.005 mIU/L QnOrde red By: Adriana Maria Victoria on 09-15-2024 TSH Qn 2.070 uIU/mL 0.300-4.200 [facility] Testosterone, totalOrdered B y: Adrianaute Montgomerydaniella on 09-15-2024 Testosterone [Mass/Vol] 7 ng/dL 4-[address] [facility] Thyroid Stim Hormone (TSH)on 09-15-2024 TSH 2.070 uIU/mL Normal 0.300-4.200 [facility] Comment on above: Performed By: #### L 3300.1750, L500.4050, L801.2600, L501.9520, L506.0400, L3100.5400, L3100.5310, L3100.5055, L3300.6900 #### [facility] [address] [place], [place], [address] Total proteinOrdered By: Nahun ute Valentinadaniella on 09-15-2024 Protein [Mass/Vol] 6.9 g/dL 5.9-8.4 [facility] Gastroenterology Visit Repor ton 09-09-2024 Gastroenterology Visit Report [facility] [address] [place] [address] OFFICE VISIT Date of Service: 09/09/24 MR#: [id number] Acct: [id number] Name: CATHERINE BUI Rep #: [id number] : 1975 Provider: CRISTY Julio Age/Sex: 48/F Location: [facility] Status: Signed Intake Vital Signs 12/30/23 15:51 07/26/24 09:11 Height 5 ft 4 in 5 ft 4 in Intake Visit Reasons: 6 M FU Chief Complaint: fatty liver Allergies NSAIDS (Non-Steroidal Anti-Inflamma Allergy (Verified 07/26/24 09:05) unknown Penicillins Allergy (Verified 07/26/24 09:05) Rash sulfamethoxazole (From Bactrim) Allergy (Verified 07/26/24 09:05) rash trimethoprim (From Bactrim) Allergy (Verified 07/26/24 09:05) rash Medications ???Medication ???Instructions ???Recorded ???Confirmed ???Type calcium carbonate (Calcium 600) 600 mg PO DAILY 09/25/20 07/22/24 History cholecalciferol (vitamin D3) 10 10 mcg PO DAILY 09/25/20 07/22/24 History mcg (400 unit) capsule cyanocobalamin (vitamin B-12) 50 50 mcg PO DAILY 09/25/20 07/22/24 History mcg tablet (Vitamin B-12) magnesium 200 mg tablet 200 mg PO DAILY 09/25/20 07/22/24 History potassium 99 mg PO DAILY 12/15/20 07/22/24 H istory sumatriptan succinate 50 mg tablet See Rx Instructions PO .COMPLEX 07/24/21 07/22/24 Rx (Imitrex) #14 tabs linaclotide 290 mcg capsule 290 mcg PO DAILY PRN PRN Diarrhea 09/05/22 09/09/24 Rx (Linzess) #90 caps cyclobenzaprine 10 mg tablet See Rx Instructions .Route 3 07/22/24 Rx .COMPLEX #60 tabs ferrous sulfate 325 mg (65 mg 325 mg PO DAILY 04/01/23 09/09/24 History iron) tablet fexofenadine 180 mg tablet 180 mg PO DAILY 04/18/23 07/22/24 History (Aller-Fex) hydroxyzine HCl 25 mg tablet 25 mg PO PRN PRN itching 04/18/23 07/22/24 History buspirone 5 mg tablet 7.5 mg PO TID 09/12/23 07/26/24 Hi story ursodiol 250 mg tablet 250 mg PO BID #60 tabs 09/12/23 Rx semaglutide 1 mg/dose (4 mg/3 mL) 1 mg subcut MOFR 12/30/23 5 History subcutaneous pen injector pantoprazole 40 mg tablet,delayed 40 mg PO BID #120 TABLETS 4 09/09/24 Rx release sucralfate 1 gram tablet 1 g PO TIDAC 30 days #90 tabs 02/2009/09/24 Rx amlodipine 5 mg tablet 10 mg PO QHS 07/06/24 07/22/24 His tory duloxetine 20 mg capsule,delayed 30 mg PO BID Fibromyalgia 09/09/24 09/09/24 History release (Cymbalta) vitamin E (dl, acetate) 450 mg 450 mg PO QDAY 09/09/24 09/09/24 H istory (1,000 unit) capsule Nurse's Note: OV 09/09/24 Pt here for f/u and reports diarrhea, constipation, abdominal pain, gas, bloating, and heartburn. Pt continues Linzess, sucralfate, ursodiol and vitamin E daily. PFSH Medical History Back pain Blood disorder Syncope MGUS (monoclonal gammopathy of unknown significance) Colon cancer screening GI bleed Mass of skin of left lower leg Wears glasses Thyroid disease Low iron Migraine headache History of hiatal hernia History of IBS Non-smoker Vocal cord dysfunction Hypertension URI (upper respiratory infection) Suspected COVID-19 virus infection Breast cancer screening Localized swelling on left hand Chronic constipation Elevated blood pressure reading in office without diagnosis of hypertension Hemangioma Preventative health care Chronic left hip pain Right thyroid nodule GERD (gastroesophageal reflux disease) Essential hypertension DM 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 Surgical History Hx of colonoscopy History of esophagogastroduodenosco py (EGD) History of surgical removal of ganglion cyst History of hysterectomy Gastric bypass status for obesity H/O section S/P thyroid surgery Hx of cholecystectomy Family History Aunt Cancer uterine cancer Brother Asthma Sister Autoimmune disorder Other Breast cancer Diabetes Heart disease Hypertension Myocardial infarction Parkinson disease Social History Smoking Status: Never smoker HPI HPI Chief Complaint: fatty liver Details: CATHERINE BUI, is a 48 F who presents to the office today for f/u. BGI established in 2022 with abd pain and nausea. Pt is s/p milvia-en-Y gastrojejunostomy. EGD 03.22.22 Milvia-en-Y gastrojejunostomy; non-bleeding gastric ulcer, mild gastritis; irregular Zline 33cm; tortuous esophagus. Metaplasia, H.Pylori neg. CT abd/pel 10.29.22 with contrast hepatic steatosis; s/p cholecystectomy and gastric bypass; distal gastric/duodenal wall thickening EGD 10.29.22 Milvia-en-Y gastrojejunostomy with ulceration, heater probe; two 3mm bleeding AVM, heater probe. No specimens. (more content not included)... Normal [facility] Thyroidon 08-26-2024 Thyroid [facility] Imaging Services [address] [place], [place] [address] Thyroid MR#: [id number] Acct: [id number] Name: CATHERINE BUI ANN Rep #: [id number] : 1975 F 48 From: Jerome martínez MD PCP: APRIL ArmandoC Status: REG CLI Study: Thyroid Date of Exam: 08/26/24 Exam# [id number] Ordering Dr: Jose Suresh MD PROCEDURE: THYROID 08/26/2024 REASON FOR EXAM: FOLLOW UP Thyroid nodules. Prior resection of the left thyroid. TECHNIQUE: High-frequency thyroid ultrasound, including grayscale and color-flow images. REFERENCE LINKS: TI-RADS Chart: [email or web address] Tool with Reference Images: [email or web address] or/ COMPARISON: Prior study dated March 07, 2023. FINDINGS: Right thyroid lobe size: 4.9 cm x 2.2 cm x 1.8 cm Left thyroid lobe has been resected. Isthmus: 0.39 cm Background parenchymal echotexture is homogeneous. Nodules: . Lobe: Right, Location: Upper pole, Size: 1 cm x 0.9 cm x 0.6 cm, Stability: Stable Composition: Mixed cystic and solid (+1) Echogenicity: Hypoechoic (+2) Margin: Smooth (+0) Shape: Wider than tall (+0) Echogenic Foci: None (+0) TI-RADS: 3 . Lobe: Right, Location: Medial adjacent to the isthmus, Size: 1.1 cm x 1.1 cm x 1.4 cm, Stability: Stable Composition: Mixed cystic and solid (+1) Echogenicity: Hypoechoic (+2) Margin: Smooth (+0) Shape: Wider than tall (+0) Echogenic Foci: None (+0) TI-RADS: 2 US/Thyroid IMPRESSION: Stable examination. RECOMMENDATION: Based on most suspicious nodule. Nodule size = largest diameter Only evaluate nodule if =>5 mm. Growth > 20% in 2 dimensions = worsening. Follow up to 4 nodules. Recommend biopsy for no more than 2 nodules. Reading Location: [facility] CC: FLAT SURFACER-C Giancarlo Posadas; Dr. Jose Suresh MD Pad Cutter: Signed Normal [facility] Hips B/L min 2 views w/ Pelv trupti 08-12-2024 Hips B/L min 2 views w/ Pelvis [facility] Imaging Services [address] [place], [place] [address] Hips B/L min 2 views w/ Pelvis MR#: [id number] Acct: [id number] Name: CATHERINE BUI ANN Rep #: [id number] : 1975 F 48 From: Deejay Flores i DO PCP: ALEXANDREA Armando Status: REG CLI Study: Hips B/L min 2 views w/ Pelvis Date of Exam: 0 08/12/24 Exam# [id number] Ordering Dr: Catherine Messer PROCEDURE: Pelvis and bilateral hip radiographs, five views 08/12/2024 REASON FOR EXAM: HIP PAIN VERSUS RADICULAR SYMPTOMS TECHNIQUE: Five views of the pelvis and bilateral hips were obtained. COMPARISON: None available FINDINGS: Five views of the pelvis and bilateral hips were obtained. Bones are mildly osteopenic. Mild degenerative changes lower lumbar spine. SI joints intact. No displaced pelvic fracture. No acute fracture or dislocation of either hip. Mild degenerative changes in the hip joints. RAD/Hips B/L min 2 views w/ Pelvis IMPRESSION: No acute bony abnormality of the pelvis/bilateral hips. Mild degenerative changes in the hip joints. Reading Location: [facility] CC: ALEXANDREA Messer Pad Cutter: Signed Normal [facility] Thoracic Spine 3 Viewson Thoracic Spine 3 Views [facility] Imaging Services [address] [place] [address] Thoracic Spine 3 Views MR#: [id number] Acct: [id number] Name: RAMYACATHERINEAMRIK Rep #: [id number] : 1975 F 48 From: Deejay Flores i, DO PCP: ALEXANDREA Armando Status: REG CLI Study: Thoracic Spine 3 Views Date of Exam: 08/12/24 Exam# [id number] Ordering Dr: Catherine Messer PROCEDURE: Thoracic spine radiographs, three views 08/12/2024 REASON FOR EXAM: THORACIC SPINE PAIN TECHNIQUE: Three views of the thoracic spine were obtained. COMPARISON: None available FINDINGS: Three views of the thoracic spine were obtained. Bones are osteopenic. Surgical clips project over the right upper abdomen. Lungs are grossly clear. No acute fracture or focal subluxation of the thoracic spine. Moderate multilevel degenerative disc disease in the thoracic spine. There is mild exaggeration of the normal thoracic kyphosis. RAD/Thoracic Spine 3 Views IMPRESSION: Osteopenia. No acute bony abnormality of the thoracic spine. Moderate multilevel degenerative disc and facet disease in the thoracic spine. If there is persistent pain or clinical concern, MRI evaluation may be considered. Reading Location: [facility] CC: ALEXANDREA Messer Pad Cutter: Signed Normal [facility] Bedside Glucoseon 07-26-2024 FINGERSTICK GLU 84 mg/dL Normal 74-106 [facility] Comment on above: Result Comment: GYPSY DE LA GARZA OF PATIENT CARE PER NURSING PROTOCOL Performed By: #### L 501.080 ####[facility] [id number] [place], [address] Fluor Guidance for Spine Inj on 07-26-2024 Fluor Guidance for Spine Inj [facility] Imaging Services [address] [place] [address] Fluor Guidance for Spine Inj MR#: [id number] Acct: [id number] Name: CATHERINE BUI ANN Rep #: [id number] : 1975 F 48 From: Wei Renee PCP: ALEXANDREA Armando Status: REG [facility] Study: Fluor Guidance for Spine Inj Date of Exam: 11/12 Exam# [id number] Ordering Dr: Primitivo Lockhart MD PROCEDURE: FLUOR GUIDANCE FOR SPINE INJ 07/26/2024 REASON FOR EXAM: BLOCK,CAUDAL TECHNIQUE: 2 fluoroscopic images were submitted. Fluoroscopy time was 6.7 seconds. Peak skin radiation dose was 2.6 mGy. COMPARISON: None FINDINGS: See impression RAD/Fluor Guidance for Spine Inj IMPRESSION: Fluoroscopic guidance provided during sacral injection. See operative report for further details. Reading Location: [facility] CC: FLAT SURFACER-C Giancarlo Posadas; Dr. Primitivo Lockhart MD Pad Cutter: Signed Normal [facility] deOrdered By: Primitivo Lockhart on 07-26-2024 Bedside Glucose (Misc Panel) 84 mg/dL 74-106 [facility] Comment on above: MANAGEMENT OF PATIEN T CARE PER NURSING PROTOCOL Glucose [Mass/Vol] 84 mg/dL 74-106 [facility] Comment on above: MANAGEMENT OF PATIEN T CARE PER NURSING PROTOCOL MR/POSTOP.ANEon 07-26-2024 MR/POSTOP.[facility] Medical Records Department [address] [place] [address] Anesthesia Postop Eval I 07/26/24 1010 MR#: [id number] Acct: [id number] Name: CATHERINE BUI ANN Rep #: [id number] : 1975 48 From: Ruth Varghese PCP: APRIL ArmandoC Status:REG SDC Y Race: C Location: [place] [address] Anesthesia: Postop Eval I Current Vital Signs Temperature: 98.4 F Pulse Rate: 66 Blood Pressure: 110/74 Respiratory Rate: 18 Pulse Ox: 97 Assessment Airway patent: Yes Spontaneous unlabored respirations: Yes nausea: No Vomiting: No Anesthesia Complication: No Fluid Hydration Crystalloid volume administer (ml): 10 Total IV fluid infused: 10 Progress Note Anesthesia document: Postop Eval 1 completed: Yes 07/26/24 1011 Date Ruth Saeedignalejandrina Signature: Date CC: Signed Normal [facility] MR/[id number] 07-26-2024 [facility] Medical Records Department [address] [place] [address] Anesthesia Postop Eval II 07/26/24 1034 MR#: [id number] Acct: [id number] Name: CATHERINE BUI ANN Rep #: [id number] : 1975 48 From: Rony Dixon MD PCP: PARIL ArmandoC Status:REG SDC Y Race: C Location: [place] [address] Anesthesia Postop Eval I Sum Postop Eval Completion status Anesthesia document: Postop Eval 1 completed: Yes Anesthesia Postop Eval I Summary Anesthesia Postop Eval I Summary: Anesthesia Postop Eval I: Assessment Summary Airway patent Yes 07/26/24 10:10 JUNIOR [email or web address].CSIR Spontaneous unlabored Yes 07/26/24 10:10 JUNIOR PROGRAMMER.CSIR respirations Mental status nausea No 07/26/24 10:10 JUNIOR PROGRAMMER.CSIR Vomiting No 07/26/24 10:10 JUNIOR PROGRAMMER.CSIR Anesthesia Postop Eval I: Fluid Summary Crystalloid volume administer 10 07/26/24 10:10 JUNIOR PROGRAMMER.CSIR (ml) Colloids volume administered ( ml) Blood Product volume administered (ml) Total IV fluid infused 10 07/26/24 10:10 JUNIOR PROGRAMMER.CSIR Anesthesia Postop Eval I: Summary Notes Anesthesia Complication No 07/26/24 10:10 JUNIOR PROGRAMMER.CSIR Anesthesia Complication Comment: Post-operative progress note Anesthesia: Postop Eval II Evaluation Mental status: Awake Pain Level: 0 nausea: No Vomiting: No 07/26/24 1034 Date Rony Jimenez Signature: Date CC: Signed Normal [facility] Operative Reporton 5 Operative Report [facility] Medical Records Department [address] [place] [address] Operative Report 07/26/24 1002 MR#: [id number] Acct: [id number] Name: CATHERINE BUI ANN Rep #: [id number] : 1975 48 From: Primitivo Lockhart MD PCP: ALEXANDREA Armando Status:[facility] Location: [place] [address] Operative Report (Standard) Operative Information Date of Procedure: 07/26/24 Pre-Operative Diagnosis: Lumbosacral radiculopathy, lumbosacral spinal stenosis, lumbosacral degenerative disc disease Post-Operative Diagnosis: Lumbosacral radiculopathy, lumbosacral spinal stenosis, lumbosacral degenerative disc disease Surgery/Procedure Performed: Diagnostic/therapeutic caudal epidural steroid injection under fluoroscopic guidance road patcher: No Type of Anesthesia: Local MAC RN Documented Start/Stop Times: Operation Date: 07/26/24 10:20 Case Time Into Pre-Op 07/26/24 08:58 Anesthesia Start 07/26/24 09:55 Into Room 07/26/24 09:55 Procedure Start 07/26/24 10:00 Procedure Start Time: 10:03 Procedure Stop Time: 10:04 Select all DRAINS/GRAFTS/IMPLANTS that apply: None Estimated Blood Loss: 0 Specimen collected: No Description of surgery: ANESTHESIA: MAC. BLOOD LOSS: Minimal. COMPLICATIONS: None. DESCRIPTION OF PROCEDURE: History and physical of today was reviewed. Risks and benefits of the procedure were explained. The patient understood and agreed to proceed. Informed consent was obtained. IV inserted per routine protocol. The patient was taken to the operating room and placed in the prone position with a pillow positioned underneath the abdomen. The lower back and tailbone area was prepped and draped in a sterile fashion using iodine x3. Under fluoroscopy guidance on a lateral view, the caudal space was identified. The skin and subcutaneous tissue was anesthetized with approximately 3 mL of 1% lidocaine using a 25-gauge regular needle. Under direct visualization with fluoroscopy, using a 22-gauge 3-1/2-inch spinal needle, the needle was advanced via the skin through the sacral hiatus. The tip of the needle was passed through the sacrococcygeal ligament and advanced to approximately S4 area. After negative aspiration of blood or CSF, a total of 3 mL of contrast was injected to confirm correct placement of the needle as well as cephalad spread. The spread was followed to approximately L5 area. After confirmation on AP as well as lateral view and repeated negative aspiration, a total of 15 mL of preservative-free 0.125% Marcaine with 80 mg of Depo-Medrol was injected easily. The needle was then removed intact. The patient experienced no sign or symptoms of intrathecal or intravascular injection. The patient experienced no paresthesia. The procedure was completed without any apparent difficulty or any complications. The patient appeared to tolerate it well. ASSESSMENT AND PLAN: This is a 48 year-old female with lumbosacral radiculopathy, lumbosacral degenerative disc disease, lumbosacral spinal stenosis status post diagnostic/therapeutic caudal epidural steroid injection under fluoroscopic guidance, patient will continue her current medications, patient will follow-up in approximately 2 weeks for reevaluation. Surgical Findings: 0 Complications Complications: No Admit VTE Documentation VTE Present on Admission: No 07/26/24 1004 Cosigner Signature (if applicable): CC: ALEXANDREA Posadas; Dr. 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 When Was Last Pacemaker Check QUESTION #4 FULL TEXT: You/Your Family Experience fever (hyperthermia) with Anesthesia Last Oral Intake Last Oral intake: Last Oral Intake NPO since Meds taken in AM with sips of water? 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 Female Yes 07/22/24 09:40 HX of Motion Sickness No 07/22/24 09:40 HX of N/V After Surgery Yes 07/22/24 09:40 Non-Smoker Yes 07/22/24 09:40 Duration of Surgery greater No 07/22/24 09:40 than 60 minutes Number of Risk Factors 3 07/22/24 09:40 PONV Score Moderate Risk 07/22/24 09:40 Height Weight Height Weight: Anesthesia: Height Weight Height 5 ft 4 in 07/06/24 14:24 Respiratory Assessment Respiratory Assessment - diesel locomotive engineer: Respiratory Tract Infection Hx - diesel locomotive engineer Hx Respiratory Tract Infection No 07/22/24 09:40 STOP Sleep Apnea STOP Sleep Apnea - diesel locomotive engineer: STOP Sleep Apnea - diesel locomotive engineer Hx Hypertension Yes: CONTROLLED WITH MED 07/22/24 09:40 Hx Sleep Apnea Yes 07/22/24 09:40 CPAP Yes 07/22/24 09:40 BIPAP No 07/22/24 09:40 Do you snore loudly (louder than talking or can be heard Do you often feel tired/ fatigued/ sleepy during daytime? Has anyone observed you stop breathing during sleep? STOP Results Positive 07/22/24 09:40 QUESTION #5 FULL TEXT : Do you snore loudly (louder than talking or can be heard through closed doors)? 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 Specify any problems Hx of Preganancy in last 3 No 07/22/24 09:40 Months Nurse Filling Out Transfusion DSCHRIBER 07/22/24 09:40 Questions: Date: 07/22/24 07/22/24 09:40 Time: 09:43 07/22/24 09:40 Patient unable to answer at this time (ie. confused, unrespo /Reproduction History /Reproductive History - diesel locomotive engineer: /Reproductive Hx- diesel locomotive engineer Hx Now No 07/22/24 09:40 Gestational Age (in weeks): EDC: Hx Hx Para Hx Section SAB No 07/22/24 09:40 PFS Medical History (Updated 07/22/24 @ 09:46 by Gina Murry) Back pain Blood disorder Syncope MGUS (monoclonal gammopathy of unknown significance) Colon cancer screening GI bleed Mass of skin of left lower leg Wears glasses Thyroid disease Low iron Migraine headache History of hiatal hernia History of IBS Non-smoker Vocal cord dysfunction Hypertension URI (upper respiratory infection) Suspected COVID-19 virus infection Breast cancer screening Localized swelling on left hand Chronic constipation Elevated blood pressure reading in office without diagnosis of hypertension Hemangioma Preventative health care Chronic left hip pain Right thyroid nodule GERD (gastroesophageal reflux disease) Essential hypertension DM 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 Home Medications ???Medication ???Instructions ???Recorded ???Last Taken ???Type calcium carbonate (Calcium 6 (more content not included)... Normal [facility] Oncology Visit Reporton 06-19 Oncology Visit Report [facility] [place] [address] OFFICE VISIT Date of Service: 07/06/24 1421 MR#: [id number] Acct: [id number] Name: CATHERINE BUI Rep #: [id number] : 1975 From: Stephane Melgar MD Age/Sex: 48/F Location: [facility] Status: Signed HPI Subjective Date of Service 07/06/24 Chief Complaint F/u for MGUS. History of Present Illness 48y.o.woman was found to have abnormal serum protein and referred for further evaluation. Skeletal survey on 04/03/2023 was negative. Was found to have IgG Lambda M-protein 0.4g/dl. She is on observation. Had blood work and comes for follow up. She feels well. [facility] Medical History Blood disorder Syncope MGUS (monoclonal gammopathy of unknown significance) Colon cancer screening GI bleed Mass of skin of left lower leg Wears glasses Thyroid disease Low iron Migraine headache History of hiatal hernia History of IBS Non-smoker Vocal cord dysfunction Hypertension URI (upper respiratory infection) Suspected COVID-19 virus infection Breast cancer screening Localized swelling on left hand Chronic constipation Elevated blood pressure reading in office without diagnosis of hypertension Hemangioma Preventative health care Chronic left hip pain Right thyroid nodule GERD (gastroesophageal reflux disease) Essential hypertension DM 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 Surgical History Hx of colonoscopy History of esophagogastroduodenosco py (EGD) History of surgical removal of ganglion cyst History of hysterectomy Gastric bypass status for obesity H/O section S/P thyroid surgery Hx of cholecystectomy Family History Aunt Cancer uterine cancer Brother Asthma Sister Autoimmune disorder Other Breast cancer Diabetes Heart disease Hypertension Myocardial infarction Parkinson disease Social History Smoking Status: Never smoker Intake Vital Signs 05/19/24 06:38 07/06/24 14:23 07/06/24 14:24 Height 5 ft 4 in 5 ft 4 in 5 ft 4 in Weight: 90.718 kg BMI 34.3 BP 122/80 H Blood Pressure Location Lt brachial Position Sitting Respiration 18 Pulse 81 Pulse Source Monitor Temp 98.3 F Temperature Source Temporal Artery Pulse Oximetry (%) 96 Oxygen Delivery Method room air Intake Is patient in pain?: No Allergies NSAIDS (Non-Steroidal Anti-Inflamma Allergy (Verified 07/06/24 14:21) unknown Penicillins Allergy (Verified 07/06/24 14:21) Rash sulfamethoxazole (From Bactrim) Allergy (Verified 07/06/24 14:21) rash trimethoprim (From Bactrim) Allergy (Verified 07/06/24 14:21) rash Medications ???Medication ???Instructions ???Recorded ???Confirmed ???Type calcium carbonate (Calcium 600) 600 mg PO DAILY 09/25/20 07/06/24 History cholecalciferol (vitamin D3) 10 10 mcg PO DAILY 09/25/20 07/06/24 History mcg (400 unit) capsule cyanocobalamin (vitamin B-12) 50 50 mcg PO DAILY 09/25/20 07/06/24 History mcg tablet (Vitamin B-12) magnesium 200 mg tablet 200 mg PO DAILY 09/25/20 07/06/24 History potassium 99 mg PO DAILY 12/15/20 07/06/24 H istory sumatriptan succinate 50 mg tablet See Rx Instructions PO .COMPLEX 07/24/21 07/06/24 Rx (Imitrex) #14 tabs linaclotide 290 mcg capsule 290 mcg PO DAILY PRN PRN Diarrhea 09/05/22 07/06/24 Rx (Linzess) #90 caps cyclobenzaprine 10 mg tablet See Rx Instructions .Route 3 07/06/24 Rx .COMPLEX #60 tabs ferrous sulfate 325 mg (65 mg 325 mg PO DAILY 04/01/23 07/06/24 History iron) tablet fexofenadine 180 mg tablet 180 mg PO DAILY 04/18/23 07/06/24 History (Aller-Fex) hydroxyzine HCl 25 mg tablet 25 mg PO PRN PRN itching 04/18/23 07/06/24 History buspirone 5 mg tablet 7.5 mg PO TID 09/12/23 07/06/24 Hi story ursodiol 250 mg tablet 250 mg PO BID #60 tabs 09/12/23 Rx semaglutide 1 mg/dose (4 mg/3 mL) 1 mg subcut QWEEK 12/30/23 History subcutaneous pen injector pantoprazole 40 mg tablet,delayed 40 mg PO BID #120 TABLETS 4 07/06/24 Rx release sucralfate 1 gram tablet 1 g PO TIDAC 30 days #90 tabs 02/2007/06/24 Rx amlodipine 5 mg tablet 10 mg PO QHS 07/06/24 07/06/24 His tory duloxetine 20 mg capsule,delayed 40 mg PO BID Fibromyalgia 07/06/24 07/06/24 History release (Cymbalta) Central Venous Access Central Venous Access: No Laboratory Tests 02/27/23 03/07/23 06/24/23 11:15 12:15 07:32 WBC 8.0 7.7 Hgb 14.6 14.0 Hct 44.5 42.1 Plt Count 314 324 Absolute Neuts (auto) 4.4 4.4 Absolute Lymphs (auto) 2.56 Sodium (more content not included)... Normal [facility] ZIGGY + Protein Elect, Serumon 06-25-2024 Albumin [Mass/Vol] 3.5 g/dL Normal 2.9-4.4 [facility] Comment on above: Order Comment: N Performed By: #### L 2680.6132, L100.0100, L504.2610, L101.9900, L3130.0010, L500.4050 ####[facility] [id number] [place], [place], [id number] Albumin/Globulin [Mass ratio] 1.1 {ratio} Normal 0.7-1.7 [facility] Comment on above: Order Comment: N Performed By: #### L 3100.3425, L100.0100, L504.2610, L101.9900, L3130.0010, L500.4050 ####[facility] [address] [place], [address] CRQZJ-8-TWDA 0.3 g/dL Normal 0.0-0.4 [facility] Comment on above: Order Comment: N Performed By: #### L 3100.3425, L100.0100, L504.2610, L101.9900, L3130.0010, L500.4050 ####[facility] [address] [place], [address] NAVKF-6-SKEP 0.8 g/dL Normal 0.4-1.0 [facility] Comment on above: Order Comment: N Performed By: #### L 3100.3425, L100.0100, L504.2610, L101.9900, L3130.0010, L500.4050 ####[facility] [address] [place], [address] BETA GLOBULIN 1.0 g/dL Normal 0.7-1.3 [facility] Comment on above: Order Comment: N Performed By: #### L 3100.3425, L100.0100, L504.2610, L101.9900, L3130.0010, L500.4050 ####[facility] [address] [place], [address] GAMMA GLOBULIN 1.1 g/dL Normal 0.4-1.8 [facility] Comment on above: Order Comment: N Performed By: #### L 3100.3425, L100.0100, L504.2610, L101.9900, L3130.0010, L500.4050 ####[facility] [address] [place], [address] Globulin (S) [Mass/Vol] 3.3 g/dL Normal 2.2-3.9 [facility] Comment on above: Order Comment: N Performed By: #### L 3100.3425, L100.0100, L504.2610, L101.9900, L3130.0010, L500.4050 ####[facility] [address] [place], [address] ZIGGY RESULT,S Comment Abnormal . [facility] Comment on above: Order Comment: N Result Comment: Immu nofixation shows IgG monoclonal protein with lambda light chain specificity. Performed By: #### L 3100.3425, L100.0100, L504.2610, L101.9900, L3130.0010, L500.4050 ####[facility] [address] [place], [address] IMMUNOGLOB A QN 215 mg/dL Normal 87-352 [facility] Comment on above: Order Comment: N Performed By: #### L 3100.3425, L100.0100, L504.2610, L101.9900, L3130.0010, L500.4050 ####[facility] [address] [place], [address] IMMUNOGLOB G QN 1090 mg/dL Normal 586-1602 [facility] Comment on above: Order Comment: N Performed By: #### L 3100.3425, L100.0100, L504.2610, L101.9900, L3130.0010, L500.4050 ####[facility] [address] [place], [address] IMMUNOGLOB M QN 118 mg/dL Normal 26-217 [facility] Comment on above: Order Comment: N Performed By: #### L 3100.3425, L100.0100, L504.2610, L101.9900, L3130.0010, L500.4050 ####[facility] [address] [place], [address] M-Gurwinder 0.3 g/dL Abnormal Not Observed [facility] [facility] Comment on above: Order Comment: N Performed By: #### L 3100.3425, L100.0100, L504.2610, L101.9900, L3130.0010, L500.4050 ####[facility] [address] [place], [address] NOTE: Comment Normal . [facility] Comment on above: Order Comment: N Result Comment: Prot ein electrophoresis scan will follow via computer, mail, or fender mechanic delivery. Performed By: #### L 3100.3425, L100.0100, L504.2610, L101.9900, L3130.0010, L500.4050 ####[facility] [address] [place], [address] Protein [Mass/Vol] 6.8 g/dL Normal 6.0-8.5 [facility] Comment on above: Order Comment: N Performed By: #### L 3100.3425, L100.0100, L504.2610, L101.9900, L3130.0010, L500.4050 ####[facility] [address] [place], [address] [place] Lambda Light Chainson 06-25-2024 FR KAPPA LT CHN 15.5 mg/L Normal 3.3-19.4 [facility] Comment on above: Performed By: #### L 3100.3425, L100.0100, L504.2610, L101.9900, L3130.0010, L500.4050 ####[facility] [address] [place], [address] FR LAMBDA LT CH 18.3 mg/L Normal 5.7-26.3 [facility] Comment on above: Performed By: #### L 3100.3425, L100.0100, L504.2610, L101.9900, L3130.0010, L500.4050 ####[facility] [address] [place], [address] KAPPA/LAMBDA % 0.85 Normal 0.26-1.65 [facility] Comment on above: Result Comment: Perf ormed at: - [facility] [address] [id number] Header Operator: Dipesh Nagy PhD, Phone: [phone] Performed By: #### L 3100.3425, L100.0100, L504.2610, L101.9900, L3130.0010, L500.4050 ####[facility] [address] [place], [address] CBC W/Diff, Automatedon 03-0 -2024 Absolute Lymph 3.63 X10 3/uL Normal 0.83-4.51 [facility] Comment on above: Performed By: #### L 3100.3425, L100.0100, L504.2610, L101.9900, L3130.0010, L500.4050 ####[facility] [address] [place], [address] Absolute Neut 4.5 X10 3/uL Normal 2.0-7.7 [facility] Comment on above: Performed By: #### L 3100.3425, L100.0100, L504.2610, L101.9900, L3130.0010, L500.4050 ####[facility] [address] [place], [address] Basophils/100 WBC (Bld) 1.3 % High 0-[address] [facility] Comment on above: Performed By: #### L 3100.3425, L100.0100, L504.2610, L101.9900, L3130.0010, L500.4050 ####[facility] [address] [place], [address] Eosinophils/100 WBC (Bld) 1.3 % Normal 0-5 [facility] Comment on above: Performed By: #### L 3100.3425, L100.0100, L504.2610, L101.9900, L3130.0010, L500.4050 ####[facility] [address] [place], [address] Erythrocyte distribution width (RBC) [Ratio] 12.2 % Normal 11.6-14.6 [facility] Comment on above: Performed By: #### L 3100.3425, L100.0100, L504.2610, L101.9900, L3130.0010, L500.4050 ####[facility] [address] [place], [address] Hematocrit (Bld) [Volume fraction] 43.0 % Normal 37-47 [facility] Comment on above: Performed By: #### L 3100.3425, L100.0100, L504.2610, L101.9900, L3130.0010, L500.4050 ####[facility] [address] [place], [address] Hemoglobin (Bld) [Mass/Vol] 14.5 g/dL Normal 12.0-15.0 [facility] Comment on above: Performed By: #### L 3100.3425, L100.0100, L504.2610, L101.9900, L3130.0010, L500.4050 ####[facility] [address] [place], [address] IG% 1.400 High 0.0-0.9 [facility] Comment on above: Result Comment: IG% - Immature Granulocytes (promyelocytes, myelocytes and metamyelocytes) > 1% indicates that a LEFT SHIFT is Present. Performed By: #### L 3100.3425, L100.0100, L504.2610, L101.9900, L3130.0010, L500.4050 ####[facility] [address] [place], [address] Lymphocytes/100 WBC (Bld) 40.3 % Normal 19-41 [facility] Comment on above: Performed By: #### L 3100.3425, L100.0100, L504.2610, L101.9900, L3130.0010, L500.4050 ####[facility] [address] [place], [address] MCH (RBC) [Entitic mass] 30.1 pg Normal 27.0-32.0 [facility] Comment on above: Performed By: #### L 3100.3425, L100.0100, L504.2610, L101.9900, L3130.0010, L500.4050 ####[facility] [address] [place], [address] MCHC (RBC) [Mass/Vol] 33.7 g/dL Normal 32-36 [facility] Comment on above: Performed By: #### L 3100.3425, L100.0100, L504.2610, L101.9900, L3130.0010, L500.4050 ####[facility] [address] [place], [address] MCV (RBC) [Entitic vol] 89.2 fL Normal 81-[address] [facility] Comment on above: Performed By: #### L 3100.3425, L100.0100, L504.2610, L101.9900, L3130.0010, L500.4050 ####[facility] [address] [place], [address] Monocytes/100 WBC (Bld) 6.0 % Normal 0-[address] [facility] Comment on above: Performed By: #### L 3100.3425, L100.0100, L504.2610, L101.9900, L3130.0010, L500.4050 ####[facility] [address] [place], [address] Neutrophils/100 WBC (Bld) 49.7 % Normal 47-70 [facility] Comment on above: Performed By: #### L 3100.3425, L100.0100, L504.2610, L101.9900, L3130.0010, L500.4050 ####[facility] [address] [place], [address] Nucleated RBC (Bld) [#/Vol] 0 10*3/uL Normal 0-5 [facility] Comment on above: Performed By: #### L 3100.3425, L100.0100, L504.2610, L101.9900, L3130.0010, L500.4050 ####[facility] [address] [place], [address] Platelet mean volume (Bld) [Entitic vol] 10.3 fL Normal 6.2-12.0 [facility] Comment on above: Performed By: #### L 3100.3425, L100.0100, L504.2610, L101.9900, L3130.0010, L500.4050 ####[facility] [address] [place], [address] Platelets (Bld) [#/Vol] 337 10*3/uL Normal 150-450 [facility] Comment on above: Performed By: #### L 3100.3425, L100.0100, L504.2610, L101.9900, L3130.0010, L500.4050 ####[facility] [address] [place], [address] RBC (Bld) [#/Vol] 4.82 10*6/uL Normal 4.2-5.4 [facility] Comment on above: Performed By: #### L 3100.3425, L100.0100, L504.2610, L101.9900, L3130.0010, L500.4050 ####[facility] [address] [place], [address] RDW SD 40.2 fl Normal 35.1-43.9 [facility] Comment on above: Performed By: #### L 3100.3425, L100.0100, L504.2610, L101.9900, L3130.0010, L500.4050 ####[facility] [address] [place], [address] WBC (Bld) [#/Vol] 9.0 10*3/uL Normal 4.4-11.0 [facility] Comment on above: Performed By: #### L 3100.3425, L100.0100, L504.2610, L101.9900, L3130.0010, L500.4050 ####[facility] [address] [place], [address] Comprehensive Metabolic Prof [facility] 06-22-2024 Albumin [Mass/Vol] 4.3 g/dL Normal 3.5-5.0 [facility] Comment on above: Performed By: #### L 3100.3425, L100.0100, L504.2610, L101.9900, L3130.0010, L500.4050 ####[facility] [address] [place], [address] Albumin/Globulin [Mass ratio] 1.4 {ratio} Normal 0.9-2.4 [facility] Comment on above: Performed By: #### L 3100.3425, L100.0100, L504.2610, L101.9900, L3130.0010, L500.4050 ####[facility] [address] [place], [address] ALK PHOS 76 U/L Normal 35-104 [facility] Comment on above: Performed By: #### L 3100.3425, L100.0100, L504.2610, L101.9900, L3130.0010, L500.4050 ####[facility] [address] [place], [address] ALT [Catalytic activity/Vol] 14 U/L Normal <=34 [facility] Comment on above: Performed By: #### L 3100.3425, L100.0100, L504.2610, L101.9900, L3130.0010, L500.4050 ####[facility] [address] [place], [address] AST [Catalytic activity/Vol] 19 U/L Normal <=31 [facility] Comment on above: Performed By: #### L 3100.3425, L100.0100, L504.2610, L101.9900, L3130.0010, L500.4050 ####[facility] [address] [place], [address] Bilirubin [Mass/Vol] 0.37 mg/dL Normal 0.00-1.30 [facility] Comment on above: Performed By: #### L 3100.3425, L100.0100, L504.2610, L101.9900, L3130.0010, L500.4050 ####[facility] [address] [place], [address] BUN/CRE 9.1 RATIO Low 10-20 [facility] Comment on above: Performed By: #### L 3100.3425, L100.0100, L504.2610, L101.9900, L3130.0010, L500.4050 ####[facility] [address] [place], [address] Calcium [Mass/Vol] 9.4 mg/dL Normal 7.6-11.0 [facility] Comment on above: Performed By: #### L 3100.3425, L100.0100, L504.2610, L101.9900, L3130.0010, L500.4050 ####[facility] [address] [place], [address] Chloride [Moles/Vol] 103 mmol/L Normal 98-108 [facility] Comment on above: Performed By: #### L 3100.3425, L100.0100, L504.2610, L101.9900, L3130.0010, L500.4050 ####[facility] [address] [place], [address] CO2 [Moles/Vol] 24.0 mmol/L Normal 21.0-32.0 [facility] Comment on above: Performed By: #### L 3100.3425, L100.0100, L504.2610, L101.9900, L3130.0010, L500.4050 ####[facility] [address] [place], [address] Creatinine [Mass/Vol] 0.59 mg/dL Low 0.70-1.20 [facility] Comment on above: Performed By: #### L 3100.3425, L100.0100, L504.2610, L101.9900, L3130.0010, L500.4050 ####[facility] [address] [place], [address] ECRCL 133.74 ml/min Normal 50-250 [facility] Comment on above: Performed By: #### L 3100.3425, L100.0100, L504.2610, L101.9900, L3130.0010, L500.4050 ####[facility] [address] [place], [address] GAP 12 Normal 5-15 [facility] Comment on above: Performed By: #### L 3100.3425, L100.0100, L504.2610, L101.9900, L3130.0010, L500.4050 ####[facility] [address] [place], [address] GFR/1.73 sq M.predicted among non-blacks MDRD (S/P/Bld) [Vol rate/Area] 112 mL/min/{1.73_m2} Normal >60 [facility] Comment on above: Result Comment: mL/m in/1.73m2 CKD-EPI Creatinine Equation (2020) Performed By: #### L 3100.3425, L100.0100, L504.2610, L101.9900, L3130.0010, L500.4050 ####[facility] [address] [place], [address] Globulin (S) [Mass/Vol] 3.0 g/dL Normal 2.2-4.2 [facility] Comment on above: Performed By: #### L 3100.3425, L100.0100, L504.2610, L101.9900, L3130.0010, L500.4050 ####[facility] [address] [place], [address] Glucose [Mass/Vol] 85 mg/dL Normal 70-99 [facility] Comment on above: Performed By: #### L 3100.3425, L100.0100, L504.2610, L101.9900, L3130.0010, L500.4050 ####[facility] [address] [place], [address] Potassium [Moles/Vol] 4.0 mmol/L Normal 3.3-5.1 [facility] Comment on above: Performed By: #### L 3100.3425, L100.0100, L504.2610, L101.9900, L3130.0010, L500.4050 ####[facility] [address] [place], [address] Sodium [Moles/Vol] 139 mmol/L Normal 133-145 [facility] Comment on above: Performed By: #### L 3100.3425, L100.0100, L504.2610, L101.9900, L3130.0010, L500.4050 ####[facility] [address] [place], [address] T PROT 7.2 g/dL Normal 5.9-8.4 [facility] Comment on above: Performed By: #### L 3100.3425, L100.0100, L504.2610, L101.9900, L3130.0010, L500.4050 ####[facility] [address] [place], [address] Urea nitrogen [Mass/Vol] 5 mg/dL Normal 4-19 [facility] Comment on above: Performed By: #### L 3100.3425, L100.0100, L504.2610, L101.9900, L3130.0010, L500.4050 ####[facility] [address] [place], [address] Erythrocyte Sed Rateon 06-22 SED RATE 11 mm/hr Normal 0-30 [facility] Comment on above: Performed By: #### L 3100.3425, L100.0100, L504.2610, L101.9900, L3130.0010, L500.4050 ####[facility] [address] [place], [address] LDHon 06-22-2024 LDH 158 U/L Normal 84-246 [facility] Comment on above: Order Comment: 1 Performed By: #### L 3100.3425, L100.0100, L504.2610, L101.9900, L3130.0010, L500.4050 ####[facility] [address] [place], [address] CORTISOL SERUMon 06-09-2024 CORTISOL 5.80 ug/dL Normal 3.44-22.45 [facility] Comment on above: Result Comment: Adul t (AM) 5.27 - 22.45 ug/dL Adult (PM) 3.44 - 16.76 ug/dL Performed By: #### L 509.6000 ####[facility] [address] [place], [address] Cortisol [Mass/Vol]Ordered B y: Giancarlo Posadas on 06-09-2024 Cortisol 5.80 ug/dL 3.44-22.45 [facility] Comment on above: Adult (AM) 5.27 - 22 .45 ug/dL Adult (PM) 3.44 - 16.76 ug/dL Serum or plasma cortisol chris surement (mass/volume)Ordered By: Giancarlo Posadas on 06-09-2024 Cortisol [Mass/Vol] 5.80 ug/dL 3.44-22.45 [facility] Comment on above: Adult (AM) 5.27 - 22 .45 ug/dL Adult (PM) 3.44 - 16.76 ug/dL EGD Reporton 05-19-2024 EGD Report [facility] Medical Records Department [address] [place] [address] EGD Report MR#: [id number] Acct: [id number] Name: CATHERINE BUI Rep #: [id number] : 1975 48 From: Ramez Villatoro DO PCP: ALEXANDREA Armando Status:REG [facility] Patient Name: Catherine Bui Procedure Date: 05/19/2024 7:52 AM Date of : 1975 Age: 48 Procedure: Upper GI endoscopy Indications: Epigastric abdominal pain, Functional Dyspepsia, Dyspepsia, Indigestion Providers: Ramez Villatoro DO Referring MD: Giancarlo Posadas [facility] Calcine Furnace Tender-c Medicines: Monitored Anesthesia Care Patient Profile: This is a 48 year old female. Refer to note in patient chart for documentation of history and physical. Patient has symptoms of acute epigastric abdominal pain. Complications: No immediate complications. Procedure: Pre-Anesthesia Assessment: - Prior to the procedure, a History and Physical was performed, and patient medications and allergies were reviewed. The patient is competent. The risks and benefits of the procedure and the sedation options and risks were discussed with the patient. All questions were answered and informed consent was obtained. Patient identification and proposed procedure were verified by the physician in the pre-procedure area. Mental Status Examination: alert and oriented. Airway Examination: normal oropharyngeal airway and neck mobility. Respiratory Examination: clear to auscultation. CV Examination: normal. ASA Grade Assessment: II - A patient with mild systemic disease. After reviewing the risks and benefits, the patient was deemed in satisfactory condition to undergo the procedure. The anesthesia plan was to use monitored anesthesia care (MAC). Immediately prior to administration of medications, the patient was re-assessed for adequacy to receive sedatives. The heart rate, respiratory rate, oxygen saturations, blood pressure, adequacy of pulmonary ventilation, and response to care were monitored throughout the procedure. The physical status of the patient was re-assessed after the procedure. After obtaining informed consent, the endoscope was passed under direct vision. Throughout the procedure, the patient's blood pressure, pulse, and oxygen saturations were monitored continuously. The Endoscope was introduced through the mouth, and advanced to the jejunum. The upper GI endoscopy was accomplished without difficulty. The patient tolerated the procedure well. Scope In: 8:01:24 AM Scope Out: 8:05:15 AM Total Procedure Duration Time 0 hours 3 minutes 51 seconds Findings: No gross lesions were noted in the entire esophagus. A medium-sized hiatal hernia was present. 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 The gastrojejunal anastomosis was characterized by erythema, friable mucosa and inflammation. This was traversed. The jmjie-zd-rxcirdg limb was characterized by healthy appearing mucosa. The jejunojejunal anastomosis was characterized by healthy appearing mucosa. The kqfscwcg-ob-ssddudy limb was not examined as it could not be found. The excluded stomach was not examined as it could not be found. Biopsies were taken with a cold forceps for histology. Verification of patient identification for the specimen was done. Estimated blood loss was minimal. Impression: - No gross lesions in the entire esophagus. - Medium-sized hiatal hernia. - Milvia-en-Y gastrojejunostomy with gastrojejunal anastomosis characterized by erythema, friable mucosa and inflammation. - No specimens collected. Recommendation: - Discharge patient to home. - Resume previous diet. - Continue present medications. - Await pathology results. Procedure Code(s): --- Professional --- 17027, Esophagogastroduodenosco py, flexible, transoral; with biopsy, single or multiple CPT copyright 2021 [employer]. All rights reserved. The codes documented in this report are preliminary and upon guest relations associate review may be revised to meet current compliance requirements. Ramez Villatoro DO 05/19/2024 8:14:19 AM This report has been signed electronically. Number of Addenda: 0 Note Initiated On: 05/19/2024 7:52 AM 05/19/24813 Date Ramez Villatoro DO Cosigner Signature: Date (if indicated) CC: FLAT SURFACER-Suly Posadas; Ramez Villatoro DO Date Dictated: 05/19/24 075 Date Transcribed: Pad Cutter: SONY Signed [facility] MR/POSTOP.Antwan 05-19-2024 MR/POSTOP.[facility] Medical Records Department [address] [place] [address] Anesthesia Postop Eval I 05/19/24812 MR#: [id number] Acct: [id number] Name: CATHERINE BUI Rep #: [id number] : 1975 48 From: Daniel Flores PCP: ALEXANDREA Armando Status:REG SDC Y Race: C Location: [place] [address] Anesthesia: Postop Eval I Current Vital Signs Temperature: 98.1 F Pulse Rate: 81 Blood Pressure: 113/77 Respiratory Rate: 14 Pulse Ox: 98 Oxygen Delivery Method: Room Air Assessment Airway patent: Yes Spontaneous unlabored respirations: Yes Mental status: Awake and Calm nausea: No Vomiting: No Anesthesia Complication: No Fluid Hydration Crystalloid volume administer (ml): 30 Total IV fluid infused: 30 Progress Note Anesthesia document: Postop Eval 1 completed: Yes 05/19/24812 Date Daniel Jimenez Signature: Date CC: Signed Normal [facility] MR/LRKREIKK2qd 05-19-2024 MR/POSTOPAN2 [facility] Medical Records Department [address] [place] [address] Anesthesia Postop Eval II 05/19/24836 MR#: [id number] Acct: [id number] Name: CATHERINE BUI ANN Rep #: [id number] : 1975 48 From: Sergei Prakash MD PCP: ALEXANDREA Armando Status:REG [facility] Y Race: C Location: [place] [address]- Anesthesia Postop Eval I Sum Postop Eval Completion status Anesthesia document: Postop Eval 1 completed: Yes Anesthesia Postop Eval I Summary Anesthesia Postop Eval I Summary: Anesthesia Postop Eval I: Assessment Summary Airway patent Yes 05/19/24 08:13 [email or web address] Spontaneous unlabored Yes 05/19/24 08:13 [email or web address] respirations Mental status Awake,Calm 05/19/24 08:13 [email or web address] nausea No 05/19/24 08:13 [email or web address] Vomiting No 05/19/24 08:13 [email or web address] Anesthesia Postop Eval I: Fluid Summary Crystalloid volume administer 30 05/19/24 08:13 [email or web address] (ml) Colloids volume administered ( ml) Blood Product volume administered (ml) Total IV fluid infused 30 05/19/24 08:13 [email or web address] Anesthesia Postop Eval I: Summary Notes Anesthesia Complication No 05/19/24 08:13 [email or web address] Anesthesia Complication Comment: Post-operative progress note Anesthesia: Postop Eval II Evaluation Mental status: Awake Pain Level: 0 nausea: No Vomiting: No Complications Anesthesia Complication: No 05/19/24836 Date Sergei Jimenez Signature: Date CC: Signed Normal [facility] Surgery Specimen Level Kathy 05-19-2024 Surgery Specimen Level IV Patient Age/Sex Location Account Attending Physician CATHERINE BUI 48/F EN [id number] Ramez Villatoro DO Specimen: [id number] Received: 05/19/24 Status: RAY Gordon Num: [id number] Spec Type: EGD BIOPSY Leena Dr: Ramez Villatoro, DO HEADER OPERATION: EGD biopsy PRE-OP DIAGNOSIS: GI bleed TISSUE SUBMITTED: Anastomosis biopsy MICROSCOPIC DIAGNOSIS Anastomosis, biopsy: Fragments of gastric and small intestinal mucosa with mild chronic inflammation, congestion and hemorrhage. See comment. mr 05/20/2024 COMMENT Immunohistochemistry for H.pylori can be performed if clinically indicated. Please notify the laboratory if it is needed. MICROSCOPIC DESCRIPTION Slides are reviewed. GROSS DESCRIPTION Received in fixative is one container labeled with the patient's name and designated Anastomosis biopsy. The specimen consists of multiple irregular fragments of light qeusada soft tissue that in aggregate measure 1.6 x 0.4 x 0.3 cm. The specimen is totally submitted in one cassette. mr 05/19/2024 TC:3 CPT:87786 Patient Age/Sex Location Account Attending Physician CATHERINE BUI/F EN [id number] Ramez Villatoro DO Signed (signature on file) Dr. Maurice You MD 05/20/24 1155 Normal [facility] Comment on above: Performed By: #### P SUIV ####[facility] [address] [place], [place], [address] /ORLINon 05-18-2024 /ORLIN [facility] Medical Records Department [address] [place] [address] PAT - Anesthesia 05/18/24 1555 MR#: [id number] Acct: [id number] Name: CATHERINE BUI ANN Rep #: [id number] : 1975 48 From: Sunil Chau MD PCP: ALEXANDREA Armando Status:PRE [facility] [place] Race: C Location: EN Pre-Assessment Diagnosis/Proposed Procedure Planned Operative Procedure(s): EGD Anesthesia History 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 When Was Last Pacemaker Check QUESTION #4 FULL TEXT: You/Your Family Experience fever (hyperthermia) with Anesthesia Last Oral Intake Last Oral intake: Last Oral Intake NPO since Meds taken in AM with sips of water? 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 Female Yes 05/18/24 11:20 HX of Motion Sickness No 05/18/24 11:20 HX of N/V After Surgery No 05/18/24 11:20 Non-Smoker Yes 05/18/24 11:20 Duration of Surgery greater No 05/18/24 11:20 than 60 minutes Number of Risk Factors 2 05/18/24 11:20 PONV Score Moderate Risk 05/18/24 11:20 Height Weight Height Weight: Anesthesia: Height Weight Height 5 ft 4 in 12/30/23 15:51 Respiratory Assessment Respiratory Assessment - diesel locomotive engineer: Respiratory Tract Infection Hx - diesel locomotive engineer Hx Respiratory Tract Infection No 05/18/24 11:20 STOP Sleep Apnea STOP Sleep Apnea - diesel locomotive engineer: STOP Sleep Apnea - diesel locomotive engineer Hx Hypertension Yes: CONTROLLED WITH MED 05/18/24 11:20 Hx Sleep Apnea Yes 05/18/24 11:20 CPAP Yes 05/18/24 11:20 BIPAP No 05/18/24 11:20 Do you snore loudly (louder than talking or can be heard Do you often feel tired/ fatigued/ sleepy during daytime? Has anyone observed you stop breathing during sleep? STOP Results Positive 05/18/24 11:20 QUESTION #5 FULL TEXT : Do you snore loudly (louder than talking or can be heard through closed doors)? 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: Tobacco Use History - diesel locomotive engineer Tobacco Use Smoking Status Never smoker 05/18/24 11:20 Hx Tobacco Use No 05/18/24 11:20 Years Smoking Packs Smoked per Day Smoking Cessation Date was within the last 15 years Hx Smoking Cessation Date Hx Smoking Cessation Counseling Hematologic Medial History Hematologic Hx - diesel locomotive engineer: Hematologic Medical Hx - signing agent Hx of Blood Transfusion No 05/18/24 11:20 Hx of Transfusion in last 3 No 05/18/24 11:20 Months Date of Last Transfusion (if within last 3 months) Ever experience any problems No 05/18/24 11:20 with transfusion(s)? Specify any problems Hx of Preganancy in last 3 No 05/18/24 11:20 Months Nurse Filling Out Transfusion DSCHRIBER 05/18/24 11:20 Questions: Date: 05/18/24 05/18/24 11:20 Time: 11:22 05/18/24 11:20 Patient unable to answer at this time (ie. confused, unrespo /Reproduction History /Reproductive History - diesel locomotive engineer: /Reproductive Hx- diesel locomotive engineer Hx Now Gestational Age (in weeks): EDC: Hx Hx Para Hx Section SAB No 05/18/24 11:20 [facility] Medical History (Updated 04/09/24 @ 15:[address] Joaquin Boyce MD) Blood disorder Syncope MGUS (monoclonal gammopathy of unknown significance) Colon cancer screening GI bleed Mass of skin of left lower leg Wears glasses Thyroid disease Low iron Migraine headache History of hiatal hernia History of IBS Non-smoker Vocal cord dysfunction Hypertension URI (upper respiratory infection) Suspected COVID-19 virus infection Breast cancer screening Localized swelling on left hand Chronic constipation Elevated blood pressure reading in office without diagnosis of hypertension Hemangioma Preventative health care Chronic left hip pain Right thyroid nodule GERD (gastroesophageal reflux disease) Essential hypertension DM 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 Home Medications ???Medication ???Instructions ???Recorded ???Last Taken ???Type calcium carbonate (Calcium 600) 600 mg PO DAILY 09/25/20 Unknown History cholecalciferol (vitamin (more content not included)... Normal [facility] Orthopedic Visit Reporton Orthopedic Visit Report [facility] [address] [place] [address] OFFICE VISIT Date of Service: 04/09/24 MR#: [id number] Acct: [id number] Name: CATHERINE BUI ANN Rep #: [id number] : 1975 Provider: Dr. Joaquin Boyce MD Age/Sex: 48/F Location: BMS.NURIS Status: Signed Intake Vital Signs 12/30/23 15:51 Height 5 ft 4 in Intake Visit Reasons: LUMBAR SPINE Chief Complaint: MRI Review Accompanied by: Self Is patient in pain?: Yes Pain scale (1-10): 6 Allergies NSAIDS (Non-Steroidal Anti-Inflamma Allergy (Verified 04/09/24 14:01) unknown Penicillins Allergy (Verified 04/09/24 14:01) Rash sulfamethoxazole (From Bactrim) Allergy (Verified 04/09/24 14:01) rash trimethoprim (From Bactrim) Allergy (Verified 04/09/24 14:01) rash Medications ???Medication ???Instructions ???Recorded ???Confirmed ???Type calcium carbonate (Calcium 600) 600 mg PO DAILY 09/25/20 04/09/24 History cholecalciferol (vitamin D3) 10 10 mcg PO DAILY 09/25/20 04/09/24 History mcg (400 unit) capsule cyanocobalamin (vitamin B-12) 50 50 mcg PO DAILY 09/25/20 04/09/24 History mcg tablet (Vitamin B-12) magnesium 200 mg tablet 200 mg PO DAILY 09/25/20 04/09/24 History potassium 99 mg PO DAILY 12/15/20 04/09/24 History sumatriptan succinate 50 mg tablet See Rx Instructions PO .COMPLEX 07/24/21 04/09/24 Rx (Imitrex) #14 tabs linaclotide 290 mcg capsule 290 mcg PO DAILY PRN PRN Diarrhea 09/05/22 04/09/24 Rx (Linzess) #90 caps cyclobenzaprine 10 mg tablet See Rx Instructions .Route 01/29/23 04/09/24 Rx .COMPLEX #60 tabs ferrous sulfate 325 mg (65 mg 325 mg PO DAILY 04/01/23 04/09/24 History iron) tablet amlodipine 5 mg tablet 5 mg PO QHS 04/18/23 04/09/24 History fexofenadine 180 mg tablet 180 mg PO DAILY 04/18/23 04/09/24 History (Aller-Fex) hydroxyzine HCl 25 mg tablet 25 mg PO PRN PRN itching 04/18/23 04/09/24 History buspirone 5 mg tablet 7.5 mg PO TID 09/12/23 04/09/24 History ursodiol 250 mg tablet 250 mg PO BID #60 tabs 09/12/23 04/09/24 Rx semaglutide 1 mg/dose (4 mg/3 mL) 1 mg subcut QWEEK 12/30/23 04/09/24 History subcutaneous pen injector pantoprazole 40 mg tablet,delayed 40 mg PO BID #120 TABLETS 03/17/24 04/09/24 Rx release sucralfate 1 gram tablet 1 g PO TIDAC 30 days #90 tabs 03/17/24 04/09/24 Rx PFSH Medical History Blood disorder Syncope MGUS (monoclonal gammopathy of unknown significance) Colon cancer screening GI bleed Mass of skin of left lower leg Wears glasses Thyroid disease Low iron Migraine headache History of hiatal hernia History of IBS Non-smoker Vocal cord dysfunction Hypertension URI (upper respiratory infection) Suspected COVID-19 virus infection Breast cancer screening Localized swelling on left hand Chronic constipation Elevated blood pressure reading in office without diagnosis of hypertension Hemangioma Preventative health care Chronic left hip pain Right thyroid nodule GERD (gastroesophageal reflux disease) Essential hypertension DM 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 Joaquin Boyce MD 04/09/24 1308. Part of today???s visit was documented by Yareli Ortiz ATC, acting as scribe. CATHERINE BUI is a 48 year old F here today for MRI review of the lumbar spine. She rates her pain a 5- 6/10 today. Patient has finished physical therapy. They decided she will wait until the MRI results to decide if she should continue. She states she wasn't progressing much at therapy. Patient states she takes Tylenol for the pain. She states she has tried rounds of steroids and she has tried tramodol for the pain. 02/19/24: CATHERINE BUI is a 48 year old F here today for Thoracic and Lumbar Pain. Patient states it has been a while for her back. Patient states that her mid(right side) to lower back(both sides) bothers her and she has pain that shoots down her right anterior thigh with it sometimes down to her moctezuma and foot. Patient can't sleep on her right side. Patient has never had injection (more content not included)... Normal [facility] SCRN MAMM (CAD)W/EMRE BILATo n 03-25-2024 SCRN MAMM (CAD)W/EMRE BILAT [facility] Imaging Services [address] [place], [place] [address] SCRN MAMM (CAD)W/EMRE BILAT MR#: [id number] Acct: [id number] Name: CATHERINE BUI ANN Rep #: [id number] : 1975 F 48 From: Jerome martínez MD PCP: ALEXANDREA Armando Status: [facility] Study: SCRN MAMM (CAD)W/EMRE BILAT Date of Exam: 09/11 Exam# [id number] Ordering Dr: Giancarlo Posadas [facility] [id number] MAMMOGRAPHY - BILATERAL SCREENING REASON FOR EXAM: Female, 48 years old. Routine annual screening examination. PERTINENT HISTORY: Grandmother with breast cancer. TECHNIQUE: Digital bilateral breast emre (3D mammographic acquisition) in the CC and MLO projections. 2-D mediolateral oblique (MLO) and craniocaudad (CC) views of both breasts were obtained. CAD: Full Field Digital Mammography with Computer Added Detection was performed. COMPARISON: Comparison is made with prior study dated June 12, 2022 and February 12, 2021. FINDINGS: Breast Composition: The breasts are heterogeneously dense, which may obscure small masses. There are no dominant masses or suspicious calcifications. Stable small benign-appearing bilateral axillary lymph nodes. No other significant abnormalities are identified. There has been no significant change since the prior study. BI/SCRN MAMM (CAD)W/EMRE BILAT IMPRESSION: Stable bilateral screening mammogram. Yearly follow-up mammogram recommended. (A) ASSESSMENT CATEGORY: BIRADS Category 2: Benign. A letter regarding these results will be sent to the patient by the facility within 30 days. Approximately 10% of breast cancers are not detected by mammography. A normal mammogram should not delay biopsy of a clinically suspicious abnormality. [id number] Electronically Signed: Jerome Alicea MD at 12:21 EST , CC: ALEXANDREA Posadas Pad Cutter: Signed Normal [facility] Spine Lumbar (Routine)on Spine Lumbar (Routine) [facility] Imaging Services [address] [place] [id number] Spine Lumbar (Routine) MR#: [id number] Acct: [id number] Name: CATHERINE BUI ANN Rep #: [id number] : 1975 F 48 From: Mitesh Quintana MD PCP: ALEXANDREA Armando Status: [facility] Study: Spine Lumbar (Routine) Date of Exam: 03/22/24 Exam# [id number] Ordering Dr: Karina Seymour [id number] STUDY: MRI LUMBAR SPINE WITHOUT CONTRAST REASON FOR EXAM: Female, 48 years old. Pain, RT LEG PAIN TECHNIQUE: Standardized fat and water weighted pulse sequences were obtained in the sagittal and axial planes. COMPARISON: X-ray 02/23/2024 FINDINGS: T12-L1: Normal endplates. Normal disc height, hydration and morphology. Normal bilateral facet joints. Normal central canal and bilateral lateral recesses. Normal bilateral intervertebral neural foramina. Normal lumbar lordosis. There is no substantial scoliosis. Normal conus medullaris that terminates at the L1. L1-2: Normal endplates. Normal disc height, hydration and morphology. Normal bilateral facet joints. Normal central canal and bilateral lateral recesses. Normal bilateral intervertebral neural foramina. L2-3: Normal endplates. Normal disc height, hydration and morphology. Normal bilateral facet joints. Normal central canal and bilateral lateral recesses. Normal bilateral intervertebral neural foramina. L3-4: Disc desiccation but no disc protrusion, spinal stenosis, or neural foraminal stenosis. L4-5: Normal endplates. Normal disc height, hydration and morphology. Normal bilateral facet joints. Normal central canal and bilateral lateral recesses. Normal bilateral intervertebral neural foramina. L5-S1: Disc desiccation but no disc protrusion, spinal stenosis, or neural foraminal stenosis. Normal visualized sacral ala. Normal visualized paraspinous soft tissue structures. MRI/Spine Lumbar (Routine) IMPRESSION: Some disc desiccation but no spinal stenosis or neural foraminal stenosis. Electronically Signed: Mitesh Quintana MD at 13:36 EST , CC: ALEXANDREA Posadas; CRISTY Sun Pad Cutter: Signed Normal [facility] Gastroenterology Visit Repor ton 03-17-2024 Gastroenterology Visit Report [facility] [address] [place] [address] OFFICE VISIT Date of Service: 03/17/24 MR#: [id number] Acct: [id number] Name: CATHERINE BUI Rep #: [id number] : 1975 Provider: CRISTY Julio Age/Sex: 48/F Location: [facility] Status: Signed Intake Vital Signs 07/01/23 15:38 12/30/23 15:51 Height 5 ft 4 in 5 ft 4 in Intake Visit Reasons: 6 M FU Chief Complaint: f/u Allergies NSAIDS (Non-Steroidal Anti-Inflamma Allergy (Verified 02/19/24 15:19) unknown Penicillins Allergy (Verified 02/19/24 15:19) Rash sulfamethoxazole (From Bactrim) Allergy (Verified 02/19/24 15:19) rash trimethoprim (From Bactrim) Allergy (Verified 02/19/24 15:19) rash Nurse's Note: OV 03.17.24 Pt here for f/u and reports trouble trouble swallowing, constipation, diarrhea, abdominal pain, and nausea. BM 2-3 days a week. Continues semaglutide, ursodiol, pantoprazole, sucralfate, and Linzess daily. [facility] Medical History (Updated 03/17/24 @ 14:30 by CRISTY Julio) Blood disorder Syncope MGUS (monoclonal gammopathy of unknown significance) Colon cancer screening GI bleed Mass of skin of left lower leg Wears glasses Thyroid disease Low iron Migraine headache History of hiatal hernia History of IBS Non-smoker Vocal cord dysfunction Hypertension URI (upper respiratory infection) Suspected COVID-19 virus infection Breast cancer screening Localized swelling on left hand Chronic constipation Elevated blood pressure reading in office without diagnosis of hypertension Hemangioma Preventative health care Chronic left hip pain Right thyroid nodule GERD (gastroesophageal reflux disease) Essential hypertension DM 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 Surgical History History of esophagogastroduodenosco py (EGD) History of surgical removal of ganglion cyst History of hysterectomy Gastric bypass status for obesity H/O section S/P thyroid surgery Hx of cholecystectomy Family History Aunt Cancer uterine cancer Brother Asthma Sister Autoimmune disorder Other Breast cancer Diabetes Heart disease Hypertension Myocardial infarction Parkinson disease Social History Smoking Status: Never smoker HPI HPI Chief Complaint: f/u Details: CATHERINE BUI, is a 48 F who presents to the office today for f/u WSA established for dysphagia.?EGD 03.22.22???Milvia-en-Y gastrojejunostomy; non-bleeding gastric ulcer, mild gastritis; irregular Zline 33cm; tortuous esophagus. 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 *[facility] hospitalization 10.29.22-11.01.22 with syncope/fall and BRBPR with anemia, acute migraine, and chronic conditions of obesity s/p milvia-en0y gastrojejunostomy, HTN, hyperglycemia (A1c 5.8), hypokalemia.?CT abd/pel 10.29.22 with contrast???hepatic steatosis; s/p cholecystectomy and gastric bypass; distal gastric/duodenal wall thickening?EGD 10.29.22???Milvia-en-Y gastrojejunostomy with ulceration, heater probe; two 3mm bleeding AVM, heater probe. No specimens.??? OV 04.11.23- Pt stable since hosp visit in October. The last few weeks has had an increase in mid abdominal pain. Will sometimes feel nauseous when eating. Sometimes eating makes the abdominal pain worse. BM are normal. EGD and Colonoscopy 04.24.23 EGD - Z-line variable, 39 cm from the incisors. Biopsied. Milvia-en-Y gastrojejunostomy with gastrojejunal anastomosis characterized by erythema. Biopsied. Normal examined jejunum. Biopsied. Colon - Preparation of the colon was fair. Diverticulosis in the recto-sigmoid colon and in the sigmoid colon. Stool in the recto-sigmoid colon, in the sigmoid colon and in the ascending colon. The entire examined colon is normal on direct and retroflexion views. The examination was otherwise normal on direct and retroflexion views. No specimens collected. OV 09.12.23 Pt reports that she is having a bm once a day, but does not feel like she is having a complete bm. Pt reports that she bloats after she every time eats, no matter what she eats. Pt continues with buspirone, linzess, pantoprazole, and sucralfate. OV 11.27.24 Pt reports alternating bm with constipation and diarrhea. SHe continues with Linzess and miralax. SHe feels stable and like it has improved overall. She has been having stabbing epigastric pain that feel similar to when she had an ulcer. SHe takes PPI BID and sucralfate. ROS Const Constitutional: Positive for fatigue and headache(s); No fever(s) or weight change ENT ENT: Positive for headache(s) and difficulty swallow (more content not included)... Normal [facility] Re-Evaluation - PT (1)on Re-Evaluation - PT (1) [facility] Physical Therapy [facility] [address] [place] [address] / REEVALUATION / MEDICARE RECERTIFICATION PHYSICAL THERAPY MR#: [id number] Acct: [id number] Name: CATHERINE BUI Rep #: [id number] : 1975 48 From: Carter Benton DPT Referring Dr.: CRISTY Sun Status:REG RCR Insurance: [employer]/[facility] SELF PAY INSURANCE Re-Evaluation Intro: CRISTY Sun, It has been my pleasure to treat CATHERINE BUI over the last 5 visits for Lumbar radiculopathy. Please see the progress note below for an update on the physical therapy plan of care! Subjective Subjective: Pt. reports overall still having a lot of pain. Pt. is to have an MRI on 03/22. Pt. reports being 25% better. Objective Objective/Function: ROM: PT. has full ROM of her Lumbar spine, but does have some increased pain with rotation and SB bilaterally. Not much pain with flexion or extension this date. MMT: pt. has some marked weakness in her RLE compared to LLE. Pt. 5-/5 on R side 5/5 on L side. Pt. continues to have high levels of pain with lifting, prolonged walking. She has recently changed positions which has helped with her back due to reduced lifting. I would recommend that she hold off on PT until having MRI to determine cause of symptoms. Pt. consents. Plan Plan Plan: Pt. on hold until after MRI. Balance/Gait/Functional tests Balance/Special Test Scores Oswestry Low Back Score: 14 Goals Goals Goal 1:: LTG: Pt. to be I with HEP. Goal Time Frame: 4-6 Weeks Goal Progress: Progressing Goal 2:: LTG: Pt. to have increased lumbar ROM to full without increase in symptoms. Goal Time Frame: 4-6 Weeks Goal Progress: Progressing Goal 3:: STG: Pt. to have symptoms reduced to 0-2/10 pain in lumbar spine and R LE. Goal Time Frame: 2-4 Weeks Goal Progress: Not Progressing Goal 4:: LTG: Pt. to have increased core strength to fair+ throughout. Goal Time Frame: 4-6 Weeks Goal Progress: Progressing Anticipated Interventions Anticipated Interventions Patient/Client Instruction: Educate patient on: Condition, Plan of Care, Risk Factors and Benefits of Fitness Program For the Purpose of:: To foster healthy habits, To improve decision making, To facilitate caregiver knowledge and To prevent re-injury Therapeutic Exercise to Include: Strength training, Power training, Coordination, Body mechanics, Postural training, Passive ROM and Active ROM For the Purpose of:: To decrease pain, To increase ROM, To improve nutrient delivery to tissue, To increase oxygenation perfusion, To improve muscle performance and motor function, To improve ability to perform ADL's, To increase tolerance to activity/condition/posit ion, To improve health of tissue, To decrease soft tissue restriction and To increase flexibility/ROM Manual Therapy Techniques to Include: Mobilization and Soft tissue mobilization For the Purpose of:: To decrease pain, To decrease swelling/inflammation, To increase ROM, To improve nutrient delivery to tissue, To increase oxygenation perfusion and To improve muscle performance and motor function Cryotherapy (ice pack, ice massage): Yes Ultrasound (thermal/non thermal): Yes For the Purpose of:: To decrease pain, To increase ROM and To improve nutrient delivery to tissue Re-Evaluation Ending Re-evaluation ending: Please do not hesitate to contact me at [phone] by phone or if you have questions or concerns regarding this new plan of care! Sincerely, Carter Benton DPT 03/16/24 0894 CC: ALEXANDREA Posadas; CRISTY Sun CLS Signed For Medicare only, by signing this I certify the plan of care. ____ Physicians Signature Date Normal [facility] Inital Evaluation (1) - PTon 03-01-2024 Inital Evaluation (1) - PT [facility] Physical Therapy [facility] [address] [place] [address] / REHABILITATION SERVICES INITIAL EVALUATION MR#: [id number] Acct: [id number] Name: CATHERINE BUI Rep #: [id number] : 1975 48 From: Carter PIERCET Referring Dr.: CRISTY Sun Status: REG RCR Insurance: [employer] SELF PAY INSURANCE Patient's Visit Information Visit Information Visit Information: CATHERINE BUI is a 48 year old F referred to Physical Therapy by CRISTY Sun with a diagnosis of Lumbar radiculopathy. Date of Evaluation: 02/25/24 Physical Therapist: Carter Benton DPT Visit Plan Frequency: 2x /Week Duration: 4 Weeks Plan: 1) slight progressive extension as long as she has reduced symptoms 2) Quad cat/cow, lumbar ROM 3) neutral spine core stability 4) may use US as needed for pain control. Subjective Subjective: Pt. is here today for her initial evaluation with diagnosis of lumbar radiculopathy. Pt. reports having pain in her lumbar spine that extends into her R thigh at times. Pt. has had pain for a a few years with intermittent pain. Pt. reports pain is currently in her lumbar spine and radiates laterally R worse than L. Pt. does have some pain that extends into her R thigh at times, but not constantly. Pt. denies n/T currently. Pt. reports no myotomal weakness noted. Pt. has not tried much exercises or ROM of her back as of now. Pt. has to stand a lot at work, [facility] surgery. Pt. reports no R leg pain currently. She has increased stiffness in AMs, but her pain tends to increase throughout the day. Pt. is hopeful to reduce symptoms in order to complete all recreational and work activities without limitations. Pain Lumbar spine: Pain Intensity (Out of 10): 7 Pain Intensity Range: 3 and 9 Objective Objective: POSTURE: Pt. has slight flexed posture, increased thoracic kyphosis. Normal iliac crest heights noted. PALPATION: Pt. has tenderness with spring testing throughout lower lumbar spine. No marked radicular symptoms noted. NEURO: pt. has normal sensation and normal DTR of BLEs. Pt. is able to rise on heels and toes without issues. ROM: LUMBAR SPINE: flexion min loss increase NW, ext min/mod loss increase NW, SB min loss bilat increase NW, rotation min loss bilat increase NW, HS length mild tightness loss, hip flexor mild tightness. MMT: Pt. has 5/5 strength throughout BLEs. Poor+ core strength/stability. GAIT: Pt. has slight flexed posture. Normal NURIS, but methodical with minimal arm swing suggestive of guarding. Special Tests L/S Slump test left side: Negative L/S Slump test right side: Negative L/S Left Straight Leg Raise: Negative L/S Right Straight Leg Raise: Negative Lumbar Standing: Flexion - Mechanical Response: No effect Lumbar Standing: Flexion - Symptoms During Testing: Increases Lumbar Standing: Flexion - Symptoms After Testing: No worse Lumbar Standing: Extension - Mechanical Response: No effect Lumbar Standing: Extension - Symptoms During Testing: Increases Lumbar Standing: Extension - Symptoms After Testing: No worse Lumbar Standing: Right Side Glides - Mechanical Response: No effect Lumbar Standing: Right Side Ehrhardt - Symptoms During Testing: No effect Lumbar Standing: Right Side Ehrhardt - Symptoms After Testing: No effect Lumbar Standing: Left Side Ehrhardt - Mechanical Response: No effect Lumbar Standing: Left Side Ehrhardt - Symptoms During Testing: No effect Lumbar Standing: Left Side Ehrhardt - Symptoms After Testing: No effect Lumbar Lying: Flexion - Mechanical Response: No effect Lumbar Lying: Flexion - Symptoms During Testing: Decreases Lumbar Lying: Flexion - Symptoms After Testing: No better Lumbar Lying: Extension - Mechanical Response: No effect Lumbar Lying: Extension - Symptoms During Testing: Increases Lumbar Lying: Extension - Symptoms After Testing: No worse Balance/Special Test Scores Oswestry Low Back Score: 20 Goals Goal 1:: LTG: Pt. to be I with HEP. Goal Time Frame: 4-6 Weeks Goal 2:: LTG: Pt. to have increased lumbar ROM to full without increase in symptoms. Goal Time Frame: 4-6 Weeks Goal 3:: STG: Pt. to have symptoms reduced to 0-2/10 pain in lumbar spine and R LE. Goal Time Frame: 2-4 Weeks Goal 4:: LTG: Pt. to have increased core strength to fair+ throughout. Goal Time Frame: 4-6 Weeks Rehabilitation Potential Physical Therapy Diagnosis: Pt. has signs and symptoms consistent with lumbar radiculopathy. Pt. did not have any radicular symptoms currently, but does report increased symptoms by the end of her work days. Pt. has occasional R LE symptoms to anterior thigh. She has marked hypomobility, weakness, increased pain and difficulty with ADLs. Rehabilitation Potential: Good Anticipated Interventions Patient/Client Instruction: Educate patient on: Condition, Plan of Care, Risk Factors and Benef (more content not included)... Normal [facility] L/S Spine Bending Flex/[place] 02-23-2024 L/S Spine Bending Flex/Ext [facility] Imaging Services [address] [place], [place] [address] L/S Spine Bending Flex/Ext MR#: [id number] Acct: [id number] Name: CATHERINE BUI Rep #: [id number] : 1975 F 48 From: Mitesh Quintana MD PCP: ALEXANDREA Armando Status: REG CLI Study: L/S Spine Bending Flex/Ext Date of Exam: 02/22 Exam# [id number] Ordering Dr: Karina Seymour [id number] STUDY: X-RAY - LUMBAR SPINE REASON FOR EXAM: Female, 48 years old. low back pain -- flex/ext only TECHNIQUE: 2 view(s) of the lumbar spine were obtained. COMPARISON: 03/17/2023 FINDINGS: Normal lumbar lordosis. There is a normal alignment of the vertebrae. No subluxation on the flexion-extension views to suggest instability. Normal vertebral bodies and endplates. Normal disc space heights. The soft tissue structures are unremarkable. RAD/L/S Spine Bending Flex/Ext IMPRESSION: No instability on the lateral flexion and extension views. Electronically Signed: Mitesh Quintana MD at 9:08 EST , CC: ALEXANDREA Posadas; CRISTY Sun Pad Cutter: Signed Normal [facility] Orthopedic Visit Reporton Orthopedic Visit Report [facility] [address] [place] [address] OFFICE VISIT Date of Service: 02/19/24 MR#: [id number] Acct: [id number] Name: CATHERINE BUI ANN Rep #: [id number] : 1975 Provider: CRISTY Sun Age/Sex: 48/F Location: [facility].NURIS Status: Signed Intake Vital Signs 12/30/23 15:51 Height 5 ft 4 in Intake Visit Reasons: LUMBAR SPINE Accompanied by: Self Is patient in pain?: Yes Pain scale (1-10): 7 Allergies NSAIDS (Non-Steroidal Anti-Inflamma Allergy (Verified 02/19/24 15:19) unknown Penicillins Allergy (Verified 02/19/24 15:19) Rash sulfamethoxazole (From Bactrim) Allergy (Verified 02/19/24 15:19) rash trimethoprim (From Bactrim) Allergy (Verified 02/19/24 15:19) rash PFSH Medical History Blood disorder Syncope MGUS (monoclonal gammopathy of unknown significance) Colon cancer screening GI bleed Mass of skin of left lower leg Wears glasses Thyroid disease Low iron Migraine headache History of hiatal hernia History of IBS Non-smoker Vocal cord dysfunction Hypertension URI (upper respiratory infection) Suspected COVID-19 virus infection Breast cancer screening Localized swelling on left hand Chronic constipation Elevated blood pressure reading in office without diagnosis of hypertension Hemangioma Preventative health care Chronic left hip pain Right thyroid nodule GERD (gastroesophageal reflux disease) Essential hypertension DM 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 Surgical History History of esophagogastroduodenosco py (EGD) History of surgical removal of ganglion cyst History of hysterectomy Gastric bypass status for obesity H/O section S/P thyroid surgery Hx of cholecystectomy Family History Aunt Cancer uterine cancer Brother Asthma Sister Autoimmune disorder Other Breast cancer Diabetes Heart disease Hypertension Myocardial infarction Parkinson disease Social History Smoking Status: Never smoker HPI LUMBAR SPINE Details: This documentation accurately reflects the service provided and the decisions made by , CRISTY 02/19/24 8797. Part of today???s visit was documented by Jessica BENITEZ , acting as scribe. CATHERINE BUI is a 48 year old F here today for Thoracic and Lumbar Pain. Patient states it has been a while for her back. Patient states that her mid(right side) to lower back(both sides) bothers her and she has pain that shoots down her right anterior thigh with it sometimes down to her moctezuma and foot. Patient can't sleep on her right side. Patient has never had injection in her back. Patient hasn't done PT for her back. Patient can not take NSAIDS and she is using a foam roller daily with icy hot or Biofreeze. Patient does see a Chiropractor in [place]. Patient states she can feels bumps down by her spine. Patient states no injury to her back. She sees the chiropractor about once a month for the last 5-6 years. She has seen a massage therapist every 2 weeks for the last year. Ortho Exam General General: Yes no acute distress Neurologic: Yes alert and Yes oriented x3 Spine SPINE TESTING CERVICAL THORACIC LUMBAR Musculoskeletal Strength 0=absent - 5=normal Details: Neurological exam of the lower extremities shows 5x5 power. Normal sensations across all dermatomes. No hyperreflexia. No midline or paraspinal tenderness. Passive straight leg raise is negative. Figure 4 positive on right side. Gaenslen's negative. Coding Level of Care Code Off vis,new,level 4 Diagnoses Lumbar radiculopathy M54.16 Degenerative disc disease at L5-S1 level M51.379 Assessment and Plan Assessment and Plan (1) Lumbar radiculopathy: Status: Acute (2) Degenerative disc disease at L5-S1 level: Status: Acute Orders: Orders L/S Spine Bending Flex/Ext Today M54.50 - Low back pain, unspecified Spine Lumbar (Routine) Today M54.16 - Radiculopathy, lumbar region Referrals Physical Therapy Referral M54.16 - Radiculopathy, lumbar region Plan Reviewed prior lumbar xrays in the AP and LAT view. Xrays shows a loss of disc height at L5-S1. Ordered flexion/extension xrays for the patient to get. Will review the xrays once available. Explained imaging findings in detail. This has been an ongoing issue for the last several years with her flares of pain becoming more frequent and more intense. She has seen the chiropractor at least once a month for the last 5-6 years and feels that it is only mildly beneficial. She sees a massage therapist twice a month for the last year and feels that she gets only temporary relief. Di (more content not included)... Normal [facility] Oncology Visit Reporton 12-20 Oncology Visit Report [facility] [address] [place] [address]. [place] [address] OFFICE VISIT Date of Service: 12/30/23 1545 MR#: [id number] Acct: [id number] Name: CATHERINE BUI ANN Rep #: [id number] : 1975 From: Stephane Melgar MD Age/Sex: 48/F Location: [facility] [place] Status: Signed HPI Subjective Date of Service 12/30/23 Chief Complaint F/u for abnormal serum protein. History of Present Illness 48y.o.woman was found to have abnormal serum protein and referred for further evaluation. Skeletal survey on 04/03/2023 was negative. Was found to have IgG Lambda M-protein 0.4g/dl. She is on observation. Had blood work and comes for follow up. She feels well. [facility] Medical History Blood disorder Syncope MGUS (monoclonal gammopathy of unknown significance) Colon cancer screening GI bleed Mass of skin of left lower leg Wears glasses Thyroid disease Low iron Migraine headache History of hiatal hernia History of IBS Non-smoker Vocal cord dysfunction Hypertension URI (upper respiratory infection) Suspected COVID-19 virus infection Breast cancer screening Localized swelling on left hand Chronic constipation Elevated blood pressure reading in office without diagnosis of hypertension Hemangioma Preventative health care Chronic left hip pain Right thyroid nodule GERD (gastroesophageal reflux disease) Essential hypertension DM 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 Surgical History History of esophagogastroduodenosco py (EGD) History of surgical removal of ganglion cyst History of hysterectomy Gastric bypass status for obesity H/O section S/P thyroid surgery Hx of cholecystectomy Family History Aunt Cancer uterine cancer Brother Asthma Sister Autoimmune disorder Other Breast cancer Diabetes Heart disease Hypertension Myocardial infarction Parkinson disease Social History Smoking Status: Never smoker Intake Vital Signs 07/01/23 15:38 12/30/23 15:49 12/30/23 15:51 Height 5 ft 4 in 5 ft 4 in 5 ft 4 in Weight: 95.708 kg BMI 36.2 BP 113/74 Blood Pressure Location Lt brachial Position Sitting Respiration 18 Pulse 63 Pulse Source Monitor Temp 98.1 F Temperature Source Temporal Artery Pulse Oximetry (%) 98 Oxygen Delivery Method room air Intake Is patient in pain?: Yes (back) Pain scale (1-10): 8 Allergies NSAIDS (Non-Steroidal Anti-Inflamma Allergy (Verified 12/30/23 15:47) unknown Penicillins Allergy (Verified 12/30/23 15:47) Rash sulfamethoxazole (From Bactrim) Allergy (Verified 12/30/23 15:47) rash trimethoprim (From Bactrim) Allergy (Verified 12/30/23 15:47) rash Medications ???Medication ???Instructions ???Recorded ???Confirmed ???Type calcium carbonate (Calcium 600) 600 mg PO DAILY 09/25/20 12/30/23 History cholecalciferol (vitamin D3) 10 10 mcg PO DAILY 09/25/20 12/30/23 History mcg (400 unit) capsule cyanocobalamin (vitamin B-12) 50 50 mcg PO DAILY 09/25/20 12/30/23 History mcg tablet (Vitamin B-12) magnesium 200 mg tablet 200 mg PO DAILY 09/25/20 12/30/23 History potassium 99 mg PO DAILY 12/15/20 12/30/23 History sumatriptan succinate 50 mg tablet See Rx Instructions PO .COMPLEX 07/24/21 12/30/23 Rx (Imitrex) #14 tabs linaclotide 290 mcg capsule 290 mcg PO DAILY PRN PRN Diarrhea 09/05/22 12/30/23 Rx (Linzess) #90 caps pantoprazole 40 mg tablet,delayed 40 mg PO BID 60 days #120 tabs 11/29/22 12/30/23 Rx release (Protonix) cyclobenzaprine 10 mg tablet See Rx Instructions .Route 01/29/23 12/30/23 Rx .COMPLEX #60 tabs ferrous sulfate 325 mg (65 mg 325 mg PO DAILY 04/01/23 12/30/23 History iron) tablet amlodipine 5 mg tablet 5 mg PO QHS 04/18/23 12/30/23 History fexofenadine 180 mg tablet 180 mg PO DAILY 04/18/23 12/30/23 History (Aller-Fex) hydroxyzine HCl 25 mg tablet 25 mg PO PRN PRN itching 04/18/23 12/30/23 History sucralfate 1 gram tablet 1 g PO TIDAC 30 days #90 tabs 05/01/23 12/30/23 Rx buspirone 5 mg tablet 7.5 mg PO TID 09/12/23 12/30/23 History ursodiol 250 mg tablet 250 mg PO BID #60 tabs 09/12/23 12/30/23 Rx semaglutide 1 mg/dose (4 mg/3 mL) 1 mg subcut QWEEK 12/30/23 12/30/23 History subcutaneous pen injector Central Venous Access Central Venous Access: No Laboratory Results 12/23/23 06/24/23 03/07/23 07:40 07:32 12:15 WBC 8.1 7.7 8.0 Hgb 14.5 14.0 14.6 Hct 42.9 42.1 44.5 Plt Count 303 324 314 Absolute Neuts (auto) 4.4 4.4 Absolute Lymphs (auto) 2.56 Sodium 139 136 Potassium 4.0 3.6 Chloride 108 H 101 Carbon Dioxide 28.0 29.0 BUN 11 8 (more content not included)... Normal [facility] ZIGGY + Protein Elect, Serumon 12-25-2023 Albumin [Mass/Vol] 4.0 g/dL Normal 2.9-4.4 [facility] Comment on above: Order Comment: N Performed By: #### L 100.0100, L3100.3425, L500.4050, L504.2610, L3130.0010 ####[facility] [address] [place], [address] Albumin/Globulin [Mass ratio] 1.3 {ratio} Normal 0.7-1.7 [facility] Comment on above: Order Comment: N Performed By: #### L 100.0100, L3100.3425, L500.4050, L504.2610, L3130.0010 ####[facility] [address] [place], [address] IOXYW-1-HMWO 0.2 g/dL Normal 0.0-0.4 [facility] Comment on above: Order Comment: N Performed By: #### L 100.0100, L3100.3425, L500.4050, L504.2610, L3130.0010 ####[facility] [address] [place], [address] VFJRQ-3-ZIDC 0.7 g/dL Normal 0.4-1.0 [facility] Comment on above: Order Comment: N Performed By: #### L 100.0100, L3100.3425, L500.4050, L504.2610, L3130.0010 ####[facility] [address] [place], [address] BETA GLOBULIN 1.1 g/dL Normal 0.7-1.3 [facility] Comment on above: Order Comment: N Performed By: #### L 100.0100, L3100.3425, L500.4050, L504.2610, L3130.0010 ####[facility] [address] [place], [address] GAMMA GLOBULIN 1.1 g/dL Normal 0.4-1.8 [facility] Comment on above: Order Comment: N Performed By: #### L 100.0100, L3100.3425, L500.4050, L504.2610, L3130.0010 ####[facility] [address] [place], [address] Globulin (S) [Mass/Vol] 3.2 g/dL Normal 2.2-3.9 [facility] Comment on above: Order Comment: N Performed By: #### L 100.0100, L3100.3425, L500.4050, L504.2610, L3130.0010 ####[facility] [address] [place], [address] ZIGGY RESULT,S Comment Abnormal . [facility] Comment on above: Order Comment: N Result Comment: Immu nofixation shows IgG monoclonal protein with lambda light chain specificity. Performed By: #### L 100.0100, L3100.3425, L500.4050, L504.2610, L3130.0010 ####[facility] [address] [place], [address] IMMUNOGLOB A QN 211 mg/dL Normal 87-352 [facility] Comment on above: Order Comment: N Performed By: #### L 100.0100, L3100.3425, L500.4050, L504.2610, L3130.0010 ####[facility] [address] [place], [address] IMMUNOGLOB G QN 1110 mg/dL Normal 586-1602 [facility] Comment on above: Order Comment: N Performed By: #### L 100.0100, L3100.3425, L500.4050, L504.2610, L3130.0010 ####[facility] [address] [place], [address] IMMUNOGLOB M QN 111 mg/dL Normal 26-217 [facility] Comment on above: Order Comment: N Performed By: #### L 100.0100, L3100.3425, L500.4050, L504.2610, L3130.0010 ####[facility] [address] [place], [address] M-Gurwinder 0.4 g/dL Abnormal Not Observed [facility] Comment on above: Order Comment: N Performed By: #### L 100.0100, L3100.3425, L500.4050, L504.2610, L3130.0010 ####[facility] [address] [place], [address] NOTE: Comment Normal . [facility] Comment on above: Order Comment: N Result Comment: Prot ein electrophoresis scan will follow via computer, mail, or fender mechanic delivery. Performed By: #### L 100.0100, L3100.3425, L500.4050, L504.2610, L3130.0010 ####[facility] [address] [place], [address] Protein [Mass/Vol] 7.2 g/dL Normal 6.0-8.5 [facility] Comment on above: Order Comment: N Performed By: #### L 100.0100, L3100.3425, L500.4050, L504.2610, L3130.0010 ####[facility] [address] [place], [address] [place] Lambda Light Chainson 12-25-2023 FR KAPPA LT CHN 17.0 mg/L Normal 3.3-19.4 [facility] Comment on above: Order Comment: N Performed By: #### L 100.0100, L3100.3425, L500.4050, L504.2610, L3130.0010 ####[facility] [address] [place], [place], [id number] FR LAMBDA LT CH 19.5 mg/L Normal 5.7-26.3 [facility] Comment on above: Order Comment: N Performed By: #### L 100.0100, L3100.3425, L500.4050, L504.2610, L3130.0010 ####[facility] [address] [place], [place], [id number] KAPPA/LAMBDA % 0.87 Normal 0.26-1.65 [facility] Comment on above: Order Comment: N Result Comment: Perf ormed at: - [facility] [address] [id number] Header Operator: Dipesh Nagy PhD, Phone: [phone] Performed By: #### L 100.0100, L3100.3425, L500.4050, L504.2610, L3130.0010 ####[facility] [address] [place], [place], [id number] CBC W/Diff, Automatedon 09-0 -2023 Absolute Lymph 2.33 X10 3/uL Normal 0.83-4.51 [facility] Comment on above: Performed By: #### L 100.0100, L3100.3425, L500.4050, L504.2610, L3130.0010 ####[facility] [address] [place], [place], [phone] Absolute Neut 5.1 X10 3/uL Normal 2.0-7.7 [facility] Comment on above: Performed By: #### L 100.0100, L3100.3425, L500.4050, L504.2610, L3130.0010 ####[facility] [address] [place], [address] Basophils/100 WBC (Bld) 1.6 % High 0-[address] [facility] Comment on above: Performed By: #### L 100.0100, L3100.3425, L500.4050, L504.2610, L3130.0010 ####[facility] [address] [place], [address] Eosinophils/100 WBC (Bld) 0.7 % Normal 0-5 [facility] Comment on above: Performed By: #### L 100.0100, L3100.3425, L500.4050, L504.2610, L3130.0010 ####[facility] [address] [place], [address] Erythrocyte distribution width (RBC) [Ratio] 12.7 % Normal 11.6-14.6 [facility] Comment on above: Performed By: #### L 100.0100, L3100.3425, L500.4050, L504.2610, L3130.0010 ####[facility] [address] [place], [address] Hematocrit (Bld) [Volume fraction] 42.9 % Normal 37-47 [facility] Comment on above: Performed By: #### L 100.0100, L3100.3425, L500.4050, L504.2610, L3130.0010 ####[facility] [address] [place], [address] Hemoglobin (Bld) [Mass/Vol] 14.5 g/dL Normal 12.0-15.0 [facility] Comment on above: Performed By: #### L 100.0100, L3100.3425, L500.4050, L504.2610, L3130.0010 ####[facility] [address] [place], [address] IG% 0.200 Normal 0.0-0.9 [facility] Comment on above: Result Comment: IG% - Immature Granulocytes (promyelocytes, myelocytes and metamyelocytes) > 1% indicates that a LEFT SHIFT is Present. Performed By: #### L 100.0100, L3100.3425, L500.4050, L504.2610, L3130.0010 ####[facility] [address] [place], [address] Lymphocytes/100 WBC (Bld) 28.7 % Normal 19-41 [facility] Comment on above: Performed By: #### L 100.0100, L3100.3425, L500.4050, L504.2610, L3130.0010 ####[facility] [address] [place], [address] MCH (RBC) [Entitic mass] 30.5 pg Normal 27.0-32.0 [facility] Comment on above: Performed By: #### L 100.0100, L3100.3425, L500.4050, L504.2610, L3130.0010 ####[facility] [address] [place], [address] MCHC (RBC) [Mass/Vol] 33.8 g/dL Normal 32-36 [facility] Comment on above: Performed By: #### L 100.0100, L3100.3425, L500.4050, L504.2610, L3130.0010 ####[facility] [address] [place], [address] MCV (RBC) [Entitic vol] 90.3 fL Normal 81-[address] [facility] Comment on above: Performed By: #### L 100.0100, L3100.3425, L500.4050, L504.2610, L3130.0010 ####[facility] [address] [place], [address] Monocytes/100 WBC (Bld) 6.4 % Normal 0-[address] [facility] Comment on above: Performed By: #### L 100.0100, L3100.3425, L500.4050, L504.2610, L3130.0010 ####[facility] [address] [place], [address] Neutrophils/100 WBC (Bld) 62.4 % Normal 47-70 [facility] Comment on above: Performed By: #### L 100.0100, L3100.3425, L500.4050, L504.2610, L3130.0010 ####[facility] [address] [place], [address] Nucleated RBC (Bld) [#/Vol] 0 10*3/uL Normal 0-5 [facility] Comment on above: Performed By: #### L 100.0100, L3100.3425, L500.4050, L504.2610, L3130.0010 ####[facility] [address] [place], [address] Platelet mean volume (Bld) [Entitic vol] 10.1 fL Normal 6.2-12.0 [facility] Comment on above: Performed By: #### L 100.0100, L3100.3425, L500.4050, L504.2610, L3130.0010 ####[facility] [address] [place], [address] Platelets (Bld) [#/Vol] 303 10*3/uL Normal 150-450 [facility] Comment on above: Performed By: #### L 100.0100, L3100.3425, L500.4050, L504.2610, L3130.0010 ####[facility] [address] [place], [address] RBC (Bld) [#/Vol] 4.75 10*6/uL Normal 4.2-5.4 [facility] Comment on above: Performed By: #### L 100.0100, L3100.3425, L500.4050, L504.2610, L3130.0010 ####[facility] [address] [place], [address] RDW SD 41.8 fl Normal 35.1-43.9 [facility] Comment on above: Performed By: #### L 100.0100, L3100.3425, L500.4050, L504.2610, L3130.0010 ####[facility] [address] [place], [address] WBC (Bld) [#/Vol] 8.1 10*3/uL Normal 4.4-11.0 [facility] Comment on above: Performed By: #### L 100.0100, L3100.3425, L500.4050, L504.2610, L3130.0010 ####[facility] [address] [place], [address] Comprehensive Metabolic Prof ilon 12-23-2023 Albumin [Mass/Vol] 3.7 g/dL Normal 3.2-5.0 [facility] Comment on above: Order Comment: 1 Performed By: #### L 100.0100, L3100.3425, L500.4050, L504.2610, L3130.0010 ####[facility] [address] [place], [address] Albumin/Globulin [Mass ratio] 0.9 {ratio} Normal 0.9-2.4 [facility] Comment on above: Order Comment: 1 Performed By: #### L 100.0100, L3100.3425, L500.4050, L504.2610, L3130.0010 ####[facility] [address] [place], [address] ALK P 76 U/L Normal 45-117 [facility] Comment on above: Order Comment: 1 Performed By: #### L 100.0100, L3100.3425, L500.4050, L504.2610, L3130.0010 ####[facility] [address] [place], [address] ALT [Catalytic activity/Vol] 17 U/L Normal 13-56 [facility] Comment on above: Order Comment: 1 Performed By: #### L 100.0100, L3100.3425, L500.4050, L504.2610, L3130.0010 ####[facility] [address] [place], [address] AST [Catalytic activity/Vol] 15 U/L Normal 15-37 [facility] Comment on above: Order Comment: 1 Performed By: #### L 100.0100, L3100.3425, L500.4050, L504.2610, L3130.0010 ####[facility] [address] [place], [address] Bilirubin [Mass/Vol] 0.30 mg/dL Normal 0.20-1.00 [facility] Comment on above: Order Comment: 1 Result Comment: For patients on eltrombopag therapy, use of Dimension [place] TBIL is not recommended. Performed By: #### L 100.0100, L3100.3425, L500.4050, L504.2610, L3130.0010 ####[facility] [address] [place], [address] BUN/CRE 13.7 RATIO Normal 10-20 [facility] Comment on above: Order Comment: 1 Performed By: #### L 100.0100, L3100.3425, L500.4050, L504.2610, L3130.0010 ####[facility] [address] [place], [address] CA,Total 9.4 mg/dL Normal 8.5-10.1 [facility] Comment on above: Order Comment: 1 Performed By: #### L 100.0100, L3100.3425, L500.4050, L504.2610, L3130.0010 ####[facility] [address] [place], [address] Chloride [Moles/Vol] 105 mmol/L Normal 98-107 [facility] Comment on above: Order Comment: 1 Performed By: #### L 100.0100, L3100.3425, L500.4050, L504.2610, L3130.0010 ####[facility] [address] [place], [address] CO2 [Moles/Vol] 27.0 mmol/L Normal 21.0-32.0 [facility] Comment on above: Order Comment: 1 Performed By: #### L 100.0100, L3100.3425, L500.4050, L504.2610, L3130.0010 ####[facility] [address] [place], [address] Creatinine [Mass/Vol] 0.58 mg/dL Normal 0.55-1.02 [facility] Comment on above: Order Comment: 1 Result Comment: The validity of the calculated GFR GFRAA in patients over 70 years has not been determined. Clinical correlation is essential. Performed By: #### L 100.0100, L3100.3425, L500.4050, L504.2610, L3130.0010 ####[facility] [address] [place], [address] ECRCL 133.27 ml/min Normal [facility] Comment on above: Order Comment: 1 Performed By: #### L 100.0100, L3100.3425, L500.4050, L504.2610, L3130.0010 ####[facility] [address] [place], [address] EST GFR - AA 143 mL/min Normal >60 [facility] Comment on above: Order Comment: 1 Result Comment: Afri can Montenegrin GFR Calc Performed By: #### L 100.0100, L3100.3425, L500.4050, L504.2610, L3130.0010 ####[facility] [address] [place], [address] GAP 7 Normal 5-15 [facility] Comment on above: Order Comment: 1 Performed By: #### L 100.0100, L3100.3425, L500.4050, L504.2610, L3130.0010 ####[facility] [address] [place], [address] GFR/1.73 sq M.predicted among non-blacks MDRD (S/P/Bld) [Vol rate/Area] 118 mL/min/{1.73_m2} Normal >60 [facility] Comment on above: Order Comment: 1 Result Comment: Non- GFR Calc Performed By: #### L 100.0100, L3100.3425, L500.4050, L504.2610, L3130.0010 ####[facility] [address] [place], [address] Globulin (S) [Mass/Vol] 3.9 g/dL Normal 2.2-4.2 [facility] Comment on above: Order Comment: 1 Performed By: #### L 100.0100, L3100.3425, L500.4050, L504.2610, L3130.0010 ####[facility] [address] [place], [address] Glucose [Mass/Vol] 101 mg/dL Normal 74-106 [facility] Comment on above: Order Comment: 1 Result Comment: Fast ing Glucose result from 100 to 125 mg/dL suggests IMPAIRED HOMEOSTASIS per A.D.A. criteria. Performed By: #### L 100.0100, L3100.3425, L500.4050, L504.2610, L3130.0010 ####[facility] [address] [place], [address] Potassium [Moles/Vol] 3.7 mmol/L Normal 3.5-5.1 [facility] Comment on above: Order Comment: 1 Performed By: #### L 100.0100, L3100.3425, L500.4050, L504.2610, L3130.0010 ####[facility] [address] [place], [address] Sodium [Moles/Vol] 139 mmol/L Normal 136-145 [facility] Comment on above: Order Comment: 1 Performed By: #### L 100.0100, L3100.3425, L500.4050, L504.2610, L3130.0010 ####[facility] [address] [place], [address] T PROT 7.6 g/dL Normal 6.4-8.2 [facility] Comment on above: Order Comment: 1 Performed By: #### L 100.0100, L3100.3425, L500.4050, L504.2610, L3130.0010 ####[facility] [address] [place], [address] Urea nitrogen [Mass/Vol] 8 mg/dL Normal 7-18 [facility] Comment on above: Order Comment: 1 Performed By: #### L 100.0100, L3100.3425, L500.4050, L504.2610, L3130.0010 ####[facility] [address] [place], [address] LDHon 12-23-2023 LDH 167 U/L Normal 84-246 [facility] Comment on above: Order Comment: 1 Performed By: #### L 100.0100, L3100.3425, L500.4050, L504.2610, L3130.0010 ####[facility] [address] [place], [address] SANDRO w/Comprehensiveon 07-12- 2024 SANDRO TABLE Comment Normal . [facility] Comment on above: Result Comment: Auto antibody Disease Association Condition Frequency Antinuclear Antibody, SLE, mixed connective Direct (SANDRO-D) tissue diseases dsDNA SLE 40 - 60% Chromatin Drug induced SLE 90% SLE 48 - 97% SSA (Ro) SLE 25 - 35% Sjogren's Syndrome 40 - 70% Lupus 100% SSB (La) SLE 10% Sjogren's Syndrome 30% Sm (anti-Jimenez) SLE 15 - 30% PROPERTY CLAIMS ADJUSTER Mixed Connective Tissue Disease 95% (U1 nRNP, SLE 30 - 50% anti-ribonucleoprotein) Polymyositis and/or Dermatomyositis 20% Scl-70 (antiDNA Scleroderma (diffuse) 20 - 35% topoisomerase) Crest 13% Salima-1 Polymyositis and/or Dermatomyositis 20 - 40% Centromere B Scleroderma - Crest variant 80% Ribosomal P SLE 10 - 20% Performed at: [address] [id number] Header Operator: Dipesh Nagy PhD, Phone: [phone] Performed By: #### L 3400.0200 #### [facility] [address] [place], [address] ANTI-CENT B AB <0.2 Normal 0.0-0.9 [facility] Comment on above: Performed By: #### L 3400.0200 #### [facility] [address] [place], [address] ANTI-DNA (DS)AB <1 Normal 0-9 [facility] Comment on above: Result Comment: Nega tive <5 Equivocal 5 - 9 Positive >9 Performed By: #### L 3400.0200 #### [facility] [address] [place], [address] ANTI-SALIMA-1 <0.2 Normal 0.0-0.9 [facility] Comment on above: Performed By: #### L 3400.0200 #### [facility] [address] [place], [address] ANTI-SS-A < 0.2 Normal 0.0-0.9 [facility] Comment on above: Performed By: #### L 3400.0200 #### [facility] [address] [place], [address] Anti-SS-B < 0.2 Normal 0.0-0.9 [facility] Comment on above: Performed By: #### L 3400.0200 #### [facility] [address] [place], [address] ANTICHROMATIN <0.2 Normal 0.0-0.9 [facility] Comment on above: Performed By: #### L 3400.0200 #### [facility] [address] [place], [address] Antiribosomal P <0.2 Normal 0.0-0.9 [facility] Comment on above: Performed By: #### L 3400.0200 #### [facility] [address] [place], [address] ANTISCLERODERM <0.2 Normal 0.0-0.9 [facility] Comment on above: Performed By: #### L 3400.0200 #### [facility] [address] [place], [address] PROPERTY CLAIMS ADJUSTER Ab <0.2 Normal 0.0-0.9 [facility] Comment on above: Performed By: #### L 3400.0200 #### [facility] [address] [place], [place], [address] JIMENEZ Ab <0.2 Normal 0.0-0.9 [facility] Comment on above: Performed By: #### L 3400.0200 #### [facility] [address] [facility] [phone] JIMENEZ/PROPERTY CLAIMS ADJUSTER Ab <0.2 Normal 0.0-0.9 [facility] Comment on above: Performed By: #### L 3400.0200 #### [facility] [address] [facility] [place], [place], [id number] CCP IgG Antibodieson 024 CCP IgG Ab. 4 units Normal 0-19 [facility] Comment on above: Result Comment: Nega tive <20 Weak positive 20 - 39 Moderate positive 40 - 59 Strong positive >59 Performed at: [facility] [address] [id number] Header Operator: Dipesh Nagy PhD, Phone: [phone] Performed By: #### L 500.4100, L500.4050, L3100.5430, L503.0105, L506.1000, L4600.0100, L100.0100, L7000.5300, L505.7010, L501.9520, L501.6710, L101.9900 ####[facility] [address] [facility] [address] [place] [phone] Lyme Screen W/Reflex WBon LYME SCREEN Ab Negative Normal Negative [facility] Comment on above: Result Comment: Lyme antibodies not detected. Reflex testing is not indicated. No laboratory evidence of infection with B. burgdorferi (Lyme disease). Negative results may occur in patients recently infected (less than or equal to 14 days) with B. burgdorferi. If recent infection is suspected, repeat testing on a new sample collected in 7 to 14 days is recommended. Performed By: #### L 3400.0200 #### [facility] [address] [place], [address] CBC W/Diff, Automatedon 07- Absolute Lymph 2.37 X10 3/uL Normal 0.83-4.51 [facility] Comment on above: Performed By: #### L 500.4100, L500.4050, L3100.5430, L503.0105, L506.1000, L4600.0100, L100.0100, L7000.5300, L505.7010, L501.9520, L501.6710, L101.9900 ####[facility] [address] [place], [address] Absolute Neut 5.3 X10 3/uL Normal 2.0-7.7 [facility] Comment on above: Performed By: #### L 500.4100, L500.4050, L3100.5430, L503.0105, L506.1000, L4600.0100, L100.0100, L7000.5300, L505.7010, L501.9520, L501.6710, L101.9900 ####[facility] [address] [place], [address] Basophils/100 WBC (Bld) 1.3 % High 0-[address] [facility] Comment on above: Performed By: #### L 500.4100, L500.4050, L3100.5430, L503.0105, L506.1000, L4600.0100, L100.0100, L7000.5300, L505.7010, L501.9520, L501.6710, L101.9900 ####[facility] [address] [place], [address] Eosinophils/100 WBC (Bld) 1.1 % Normal 0-5 [facility] Comment on above: Performed By: #### L 500.4100, L500.4050, L3100.5430, L503.0105, L506.1000, L4600.0100, L100.0100, L7000.5300, L505.7010, L501.9520, L501.6710, L101.9900 ####[facility] [address] [place], [place], [phone] Erythrocyte distribution width (RBC) [Ratio] 12.9 % Normal 11.6-14.6 [facility] Comment on above: Performed By: #### L 500.4100, L500.4050, L3100.5430, L503.0105, L506.1000, L4600.0100, L100.0100, L7000.5300, L505.7010, L501.9520, L501.6710, L101.9900 ####[facility] [address] [place], [address] Hematocrit (Bld) [Volume fraction] 42.8 % Normal 37-47 [facility] Comment on above: Performed By: #### L 500.4100, L500.4050, L3100.5430, L503.0105, L506.1000, L4600.0100, L100.0100, L7000.5300, L505.7010, L501.9520, L501.6710, L101.9900 ####[facility] [address] [place], [place], [id number] Hemoglobin (Bld) [Mass/Vol] 14.4 g/dL Normal 12.0-15.0 [facility] Comment on above: Performed By: #### L 500.4100, L500.4050, L3100.5430, L503.0105, L506.1000, L4600.0100, L100.0100, L7000.5300, L505.7010, L501.9520, L501.6710, L101.9900 ####[facility] [address] [place], [phone]) IG% 0.400 Normal 0.0-0.9 [facility] Comment on above: Result Comment: IG% - Immature Granulocytes (promyelocytes, myelocytes and metamyelocytes) > 1% indicates that a LEFT SHIFT is Present. Performed By: #### L 500.4100, L500.4050, L3100.5430, L503.0105, L506.1000, L4600.0100, L100.0100, L7000.5300, L505.7010, L501.9520, L501.6710, L101.9900 ####[facility] [address] [place], [address] Lymphocytes/100 WBC (Bld) 28.1 % Normal 19-41 [facility] Comment on above: Performed By: #### L 500.4100, L500.4050, L3100.5430, L503.0105, L506.1000, L4600.0100, L100.0100, L7000.5300, L505.7010, L501.9520, L501.6710, L101.9900 ####[facility] [address] [place], [address] MCH (RBC) [Entitic mass] 30.3 pg Normal 27.0-32.0 [facility] Comment on above: Performed By: #### L 500.4100, L500.4050, L3100.5430, L503.0105, L506.1000, L4600.0100, L100.0100, L7000.5300, L505.7010, L501.9520, L501.6710, L101.9900 ####[facility] [address] [place], [address] MCHC (RBC) [Mass/Vol] 33.6 g/dL Normal 32-36 [facility] Comment on above: Performed By: #### L 500.4100, L500.4050, L3100.5430, L503.0105, L506.1000, L4600.0100, L100.0100, L7000.5300, L505.7010, L501.9520, L501.6710, L101.9900 ####[facility] [address] [place], [address] MCV (RBC) [Entitic vol] 89.9 fL Normal 81-[address] [facility] Comment on above: Performed By: #### L 500.4100, L500.4050, L3100.5430, L503.0105, L506.1000, L4600.0100, L100.0100, L7000.5300, L505.7010, L501.9520, L501.6710, L101.9900 ####[facility] [address] [place], [address] Monocytes/100 WBC (Bld) 6.6 % Normal 0-[address] [facility] Comment on above: Performed By: #### L 500.4100, L500.4050, L3100.5430, L503.0105, L506.1000, L4600.0100, L100.0100, L7000.5300, L505.7010, L501.9520, L501.6710, L101.9900 ####[facility] [address] [place], [address] Neutrophils/100 WBC (Bld) 62.5 % Normal 47-70 [facility] Comment on above: Performed By: #### L 500.4100, L500.4050, L3100.5430, L503.0105, L506.1000, L4600.0100, L100.0100, L7000.5300, L505.7010, L501.9520, L501.6710, L101.9900 ####[facility] [address] [place], [address] Nucleated RBC (Bld) [#/Vol] 0 10*3/uL Normal 0-5 [facility] Comment on above: Performed By: #### L 500.4100, L500.4050, L3100.5430, L503.0105, L506.1000, L4600.0100, L100.0100, L7000.5300, L505.7010, L501.9520, L501.6710, L101.9900 ####[facility] [address] [place], [address] Platelet mean volume (Bld) [Entitic vol] 10.2 fL Normal 6.2-12.0 [facility] Comment on above: Performed By: #### L 500.4100, L500.4050, L3100.5430, L503.0105, L506.1000, L4600.0100, L100.0100, L7000.5300, L505.7010, L501.9520, L501.6710, L101.9900 ####[facility] [address] [place], [address] Platelets (Bld) [#/Vol] 303 10*3/uL Normal 150-450 [facility] Comment on above: Performed By: #### L 500.4100, L500.4050, L3100.5430, L503.0105, L506.1000, L4600.0100, L100.0100, L7000.5300, L505.7010, L501.9520, L501.6710, L101.9900 ####[facility] [address] [place], [address] RBC (Bld) [#/Vol] 4.76 10*6/uL Normal 4.2-5.4 [facility] Comment on above: Performed By: #### L 500.4100, L500.4050, L3100.5430, L503.0105, L506.1000, L4600.0100, L100.0100, L7000.5300, L505.7010, L501.9520, L501.6710, L101.9900 ####[facility] [address] [place], [place], [id number] RDW SD 42.0 fl Normal 35.1-43.9 [facility] Comment on above: Performed By: #### L 500.4100, L500.4050, L3100.5430, L503.0105, L506.1000, L4600.0100, L100.0100, L7000.5300, L505.7010, L501.9520, L501.6710, L101.9900 ####[facility] [address] [place], [address] WBC (Bld) [#/Vol] 8.4 10*3/uL Normal 4.4-11.0 [facility] Comment on above: Performed By: #### L 500.4100, L500.4050, L3100.5430, L503.0105, L506.1000, L4600.0100, L100.0100, L7000.5300, L505.7010, L501.9520, L501.6710, L101.9900 ####[facility] [address] [place], [place], [id number] CRPon 10-30-2023 C-REACTIVE PROT < 2.90 Normal 0.0-3.0 [facility] Comment on above: Result Comment: C-Re active Protein (CRP) provides useful information for the diagnosis, therapy and monitoring of inflammatory processes and associated diseases. For the evaluation of Relative Risk for Cardiovascular Disease, a High Sensitivity CRP (HSCRP) should be ordered. Performed By: #### L 500.4100, L500.4050, L3100.5430, L503.0105, L506.1000, L4600.0100, L100.0100, L7000.5300, L505.7010, L501.9520, L501.6710, L101.9900 ####[facility] [address] [place], [address] Comprehensive Metabolic Prof ilon 10-30-2023 Albumin [Mass/Vol] 3.6 g/dL Normal 3.2-5.0 [facility] Comment on above: Performed By: #### L 500.4100, L500.4050, L3100.5430, L503.0105, L506.1000, L4600.0100, L100.0100, L7000.5300, L505.7010, L501.9520, L501.6710, L101.9900 ####[facility] [address] [place], [address] Albumin/Globulin [Mass ratio] 0.9 {ratio} Normal 0.9-2.4 [facility] Comment on above: Performed By: #### L 500.4100, L500.4050, L3100.5430, L503.0105, L506.1000, L4600.0100, L100.0100, L7000.5300, L505.7010, L501.9520, L501.6710, L101.9900 ####[facility] [address] [place], [place], [id number] ALK P 70 U/L Normal 45-117 [facility] Comment on above: Performed By: #### L 500.4100, L500.4050, L3100.5430, L503.0105, L506.1000, L4600.0100, L100.0100, L7000.5300, L505.7010, L501.9520, L501.6710, L101.9900 ####[facility] [address] [place], [place], [id number] ALT [Catalytic activity/Vol] 22 U/L Normal 13-56 [facility] Comment on above: Performed By: #### L 500.4100, L500.4050, L3100.5430, L503.0105, L506.1000, L4600.0100, L100.0100, L7000.5300, L505.7010, L501.9520, L501.6710, L101.9900 ####[facility] [address] [place], [address] AST [Catalytic activity/Vol] 21 U/L Normal 15-37 [facility] Comment on above: Performed By: #### L 500.4100, L500.4050, L3100.5430, L503.0105, L506.1000, L4600.0100, L100.0100, L7000.5300, L505.7010, L501.9520, L501.6710, L101.9900 ####[facility] [address] [place], [address] Bilirubin [Mass/Vol] 0.30 mg/dL Normal 0.20-1.00 [facility] Comment on above: Result Comment: For patients on eltrombopag therapy, use of Dimension [place] TBIL is not recommended. Performed By: #### L 500.4100, L500.4050, L3100.5430, L503.0105, L506.1000, L4600.0100, L100.0100, L7000.5300, L505.7010, L501.9520, L501.6710, L101.9900 ####[facility] [address] [place], [address] BUN/CRE 12.1 RATIO Normal 10-20 [facility] Comment on above: Performed By: #### L 500.4100, L500.4050, L3100.5430, L503.0105, L506.1000, L4600.0100, L100.0100, L7000.5300, L505.7010, L501.9520, L501.6710, L101.9900 ####[facility] [address] [place], [address] CA,Total 8.9 mg/dL Normal 8.5-10.1 [facility] Comment on above: Performed By: #### L 500.4100, L500.4050, L3100.5430, L503.0105, L506.1000, L4600.0100, L100.0100, L7000.5300, L505.7010, L501.9520, L501.6710, L101.9900 ####[facility] [address] [place], [address] Chloride [Moles/Vol] 105 mmol/L Normal 98-107 [facility] Comment on above: Performed By: #### L 500.4100, L500.4050, L3100.5430, L503.0105, L506.1000, L4600.0100, L100.0100, L7000.5300, L505.7010, L501.9520, L501.6710, L101.9900 ####[facility] [place] [address] [facility] [place], [address] CO2 [Moles/Vol] 25.0 mmol/L Normal 21.0-32.0 [facility] [place] Comment on above: Performed By: #### L 500.4100, L500.4050, L3100.5430, L503.0105, L506.1000, L4600.0100, L100.0100, L7000.5300, L505.7010, L501.9520, L501.6710, L101.9900 ####[facility] [place] [address] [place], [place], [phone] Creatinine [Mass/Vol] 0.58 mg/dL Normal 0.55-1.02 [facility] Comment on above: Result Comment: The validity of the calculated GFR GFRAA in patients over 70 years has not been determined. Clinical correlation is essential. Performed By: #### L 500.4100, L500.4050, L3100.5430, L503.0105, L506.1000, L4600.0100, L100.0100, L7000.5300, L505.7010, L501.9520, L501.6710, L101.9900 ####[facility] [place] [address] [place], [address] EST GFR - AA 145 mL/min Normal >60 [facility] [place] Comment on above: Result Comment: Afri can Montenegrin GFR Calc Performed By: #### L 500.4100, L500.4050, L3100.5430, L503.0105, L506.1000, L4600.0100, L100.0100, L7000.5300, L505.7010, L501.9520, L501.6710, L101.9900 ####[facility] [place] [address] [place], [address] GAP 8 Normal 5-15 [facility] [place] Comment on above: Performed By: #### L 500.4100, L500.4050, L3100.5430, L503.0105, L506.1000, L4600.0100, L100.0100, L7000.5300, L505.7010, L501.9520, L501.6710, L101.9900 ####[facility] [place] [address] [place], [place], [phone] GFR/1.73 sq M.predicted among non-blacks MDRD (S/P/Bld) [Vol rate/Area] 120 mL/min/{1.73_m2} Normal >60 [facility] [place] Comment on above: Result Comment: Non- GFR Calc Performed By: #### L 500.4100, L500.4050, L3100.5430, L503.0105, L506.1000, L4600.0100, L100.0100, L7000.5300, L505.7010, L501.9520, L501.6710, L101.9900 ####[facility] [place] [address] [place], [address] Globulin (S) [Mass/Vol] 3.8 g/dL Normal 2.2-4.[address] [facility] Comment on above: Performed By: #### L 500.4100, L500.4050, L3100.5430, L503.0105, L506.1000, L4600.0100, L100.0100, L7000.5300, L505.7010, L501.9520, L501.6710, L101.9900 ####[facility] [place] [address] [place], [address] Glucose [Mass/Vol] 87 mg/dL Normal 74-106 [facility] Comment on above: Performed By: #### L 500.4100, L500.4050, L3100.5430, L503.0105, L506.1000, L4600.0100, L100.0100, L7000.5300, L505.7010, L501.9520, L501.6710, L101.9900 ####[facility] [place] [address] [place], [place], [phone] Potassium [Moles/Vol] 3.9 mmol/L Normal 3.5-5.1 [facility] Comment on above: Performed By: #### L 500.4100, L500.4050, L3100.5430, L503.0105, L506.1000, L4600.0100, L100.0100, L7000.5300, L505.7010, L501.9520, L501.6710, L101.9900 ####[facility] [place] [address] [place], [address] Sodium [Moles/Vol] 138 mmol/L Normal 136-145 [facility] Comment on above: Performed By: #### L 500.4100, L500.4050, L3100.5430, L503.0105, L506.1000, L4600.0100, L100.0100, L7000.5300, L505.7010, L501.9520, L501.6710, L101.9900 ####[facility] [place] [address] [place], [address] T PROT 7.4 g/dL Normal 6.4-8.2 [facility] [place] Comment on above: Performed By: #### L 500.4100, L500.4050, L3100.5430, L503.0105, L506.1000, L4600.0100, L100.0100, L7000.5300, L505.7010, L501.9520, L501.6710, L101.9900 ####[facility] [place] [address] [place], [address] Urea nitrogen [Mass/Vol] 7 mg/dL Normal 7-18 [facility] [place] Comment on above: Performed By: #### L 500.4100, L500.4050, L3100.5430, L503.0105, L506.1000, L4600.0100, L100.0100, L7000.5300, L505.7010, L501.9520, L501.6710, L101.9900 ####[facility] [place] [address] [place], [address] Erythrocyte Sed Rateon 10-29 SED RATE 6 mm/hr Normal 0-30 [facility] [place] Comment on above: Performed By: #### L 500.4100, L500.4050, L3100.5430, L503.0105, L506.1000, L4600.0100, L100.0100, L7000.5300, L505.7010, L501.9520, L501.6710, L101.9900 ####[facility] [place] [address] [place], [address] Lipid Profileon 10-30-2023 Cholesterol [Mass/Vol] 164 mg/dL Normal 200 [facility] [place] [facility] Comment on above: Result Comment: <200 mg/dL Desirable 200-240 mg/dL Borderline >240 mg/dL High Risk Performed By: #### L 500.4100, L500.4050, L3100.5430, L503.0105, L506.1000, L4600.0100, L100.0100, L7000.5300, L505.7010, L501.9520, L501.6710, L101.9900 ####[facility] [place] [address] [place], [address] Cholesterol in HDL [Mass/Vol] 58 mg/dL Normal [facility] [place] Comment on above: Result Comment: The drugs N-Acetylcysteine and Metamizole may falsely depress this assay. Reference Range HDL <40 mg/dL Low HDL Cholesterol HDL >or= 60 mg/dL High HDL Cholesterol Performed By: #### L 500.4100, L500.4050, L3100.5430, L503.0105, L506.1000, L4600.0100, L100.0100, L7000.5300, L505.7010, L501.9520, L501.6710, L101.9900 ####[facility] [place] [address] [facility] [address] [place], [place], [phone]) Cholesterol in LDL [Mass/Vol] 89 mg/dL Normal 0-130 [facility] [place] Comment on above: Performed By: #### L 500.4100, L500.4050, L3100.5430, L503.0105, L506.1000, L4600.0100, L100.0100, L7000.5300, L505.7010, L501.9520, L501.6710, L101.9900 ####[facility] [place] [address] [place], [address] Cholesterol in VLDL [Mass/Vol] 17 mg/dL Normal 5-40 [facility] [place] Comment on above: Performed By: #### L 500.4100, L500.4050, L3100.5430, L503.0105, L506.1000, L4600.0100, L100.0100, L7000.5300, L505.7010, L501.9520, L501.6710, L101.9900 ####[facility] [place] [address] [place], [address] Triglyceride [Mass/Vol] 83 mg/dL Normal [facility] Comment on above: Result Comment: The drugs N-Acetylcysteine and Metamizole may falsely depress this assay. Serum Triglycerides Reference Interval Normal <150 mg/dL Borderline high 150 - 199 mg/dL High 200 - 499 mg/dL Very High > or = 500 mg/dL Performed By: #### L 500.4100, L500.4050, L3100.5430, L503.0105, L506.1000, L4600.0100, L100.0100, L7000.5300, L505.7010, L501.9520, L501.6710, L101.9900 ####[facility] [place] [address] [place], [address] Rheumatoid Factoron 10-30-19 24 RHEUMATOID FAC < 10.0 Normal <15 [facility] [place] Comment on above: Performed By: #### L 500.4100, L500.4050, L3100.5430, L503.0105, L506.1000, L4600.0100, L100.0100, L7000.5300, L505.7010, L501.9520, L501.6710, L101.9900 ####[facility] [place] [address] [place], [place], [phone] Thyroid Stim Hormone (TSH)on 10-30-2023 TSH 1.64 uIU/mL Normal 0.358-3.74 [facility] [place] Comment on above: Performed By: #### L 500.4100, L500.4050, L3100.5430, L503.0105, L506.1000, L4600.0100, L100.0100, L7000.5300, L505.7010, L501.9520, L501.6710, L101.9900 ####[facility] [place] [address] [place], [address] Vitamin B12on 10-30-2023 Cobalamin (Vitamin B12) [Mass/Vol] pg/mL High 211-911 [facility] [place] Comment on above: Performed By: #### L 500.4100, L500.4050, L3100.5430, L503.0105, L506.1000, L4600.0100, L100.0100, L7000.5300, L505.7010, L501.9520, L501.6710, L101.9900 ####[facility] [place] [address] [place], [place], [phone] Vitamin D,25 Hydroxyon 10-29 Vitamin D 25-OH 62.6 ng/mL Normal [facility] [place] Comment on above: Result Comment: Lynda min D 25(OH) Status Range Deficiency <20 ng/mL (50nmol/L) Insufficiency 20 - 30 ng/mL (50 - 75 nmol/L) Sufficiency 30 - 100 ng/mL (75 - 250 nmol/L) Toxicity >100 ng/mL (>250 nmol/L) Performed By: #### L 500.4100, L500.4050, L3100.5430, L503.0105, L506.1000, L4600.0100, L100.0100, L7000.5300, L505.7010, L501.9520, L501.6710, L101.9900 ####[facility] [place] [address] [place], [place], [phone] Albumin Elph [Mass/Vol]Order ed By: Stephane Melgar on 07-07-2023 Albumin [Mass/Vol] 4.0 g/dL 2.9-4.4 [facility] Atypical P-ANCA titerOrdered By: Ramez Villatoro on 07-07-2023 Neutrophil cytoplasmic Ab.perinuclear.atypical IF (S) [Titer] <1:20 titer Neg:<1:20 [facility] [place] Comment on above: The atypical pANCA p attern has been observed in asignificant percentage of patients with ulcerative colitis,primary sclerosing cholangitis and autoimmune hepatitis. Basophil percentageOrdered B y: Ramez Villatoro on 07-07-2023 Ammonia (P) [Moles/Vol] 25.0 umol/L [facility] [place] Bilirubin [Mass/Vol] 0.30 mg/dL 0.20-1.00 [facility] Comment on above: For patients on eltr ombopag therapy, use of Dimension [place] TBIL is not recommended. Chloride [Moles/Vol] 109 mmol/L 98-107 [facility] Cholesterol [Mass/Vol] 149 mg/dL <200 [facility] Comment on above: <200 mg/dL Desirable 200-240 mg/dL Borderline >240 mg/dL High Risk Glucose [Mass/Vol] 106 mg/dL 74-106 [facility] Comment on above: Fasting Glucose resu lt from 100 to 125 mg/dL suggests IMPAIRED HOMEOSTASIS per A.D.A. criteria. LDH [Catalytic activity/Vol] 227 U/L 84-246 [facility] [place] Potassium [Moles/Vol] 3.8 mmol/L 3.5-5.1 [facility] Protein [Mass/Vol] 7.3 g/dL 6.4-8.2 [facility] Sodium [Moles/Vol] 139 mmol/L 136-145 [facility] Triglyceride [Mass/Vol] 88 mg/dL <[address] [facility] Comment on above: The drugs N-Acetylcy steine and Metamizole may falsely depress this assay.Serum Triglycerides Reference Interval Normal <150 mg/dL Borderline high 150 - 199 mg/dL High 200 - 499 mg/dL Very High > or = 500 mg/dL Erythrocyte sedimentation ra teOrdered By: Ramez Villatoro on 07-07-2023 ESR (Bld) [Velocity] 7 mm/h 0-30 [facility] HIV 1 and HIV-2 antibody ass ay with HIV-1 p24 antigen detectionOrdered By: Ramez Villatoro on 07-07-2023 HIV 1+2 Ab+HIV1 p24 Ag IA Ql Non-Reactive Nonreactive [facility] [place] Interpretation of serum or p lasma protein pattern by immunofixation (narrative resultOrdered By: Stephane Melgar on 07-07-2023 Protein Fractions Immunofixation Vinny [Interp] Comment: g/dL Not Observed [facility] [place] Comment on above: Due to the small hina ntity of monoclonal protein, unable toquantitate the M-spike. Laboratory - Chemistry and C hemistry - challengeOrdered By: Ramez Villatoro on 07-07-2023 Albumin/Globulin [Mass ratio] 1.1 {ratio} 0.9-2.4 [facility] [place] ALP [Catalytic activity/Vol] 70 U/L 45-117 [facility] [place] ALT [Catalytic activity/Vol] 25 U/L 13-56 [facility] [place] Cholesterol in HDL [Mass/Vol] 57 mg/dL >40 [facility] [place] Comment on above: The drugs N-Acetylcy steine and Metamizole may falsely depress this assay. Reference Range HDL <40 mg/dL Low HDL Cholesterol HDL >or= 60 mg/dL High HDL Cholesterol Cholesterol in LDL [Mass/Vol] 74 mg/dL 0-130 [facility] [place] CO2 [Moles/Vol] 24.0 mmol/L 21.0-32.0 [facility] [place] Ferritin [Mass/Vol] 145 ng/mL 8-252 [facility] Globulin (S) [Mass/Vol] 3.5 g/dL 2.2-4.2 [facility] Transferrin [Mass/Vol] 226 mg/dL 192-364 [facility] Comment on above: Performed at: [facility] [employer] [address] [id number] Director: Dipesh Nagy PhD, Phone: [phone] at: - [facility] [id number] Director: Dhaval Vazquez MD, Phone: [phone] Urea nitrogen/Creatinine [Mass ratio] 14.2 mg/mg 10-20 [facility] [place] Laboratory - CoagulationOrde red By: Ramez Villatoro on 07-07-2023 INR Coag (Bld) [Relative time] 1.0 {INR} [facility] [place] PT Coag (PPP) [Time] 13.3 s 11.7-14.9 [facility] No Panel InformationOrdered By: Ramez Villatoro on 07-07-2023 C-Reactive Protein Extended Range < 2.90 mg/L 0.0-3.0 [facility] [place] Comment on above: C-Reactive Protein ( CRP) provides useful information for thediagnosis, therapy and monitoring of inflammatory processesand associated diseases. For the evaluation of Relative Riskfor Cardiovascular Disease, a High Sensitivity CRP (HSCRP)should be ordered. Centromere B Antibody <0.2 AI 0.0-0.9 [facility] Ceruloplasmin 24.9 mg/dL 19.0-39.0 [facility] [place] Estimated GFR (MDRD) Amer 116 mL/min >60 [facility] [place] Comment on above: GFR Calc Estimated GFR (MDRD) Non-Af Amer 95 mL/min >60 [facility] [place] Comment on above: Non- GFR Calc Haptoglobin 27 mg/dL 42-296 [facility] [place] Hepatitis A IgM Antibody Negative Negative [facility] [place] Hepatitis B Core IgM Antibody Negative Negative [facility] [place] Hepatitis C Antibody (EIA) Non-Reactive Non Reactive [facility] [place] Hepatitis C Antibody Comment Comment . [facility] [place] Comment on above: Not infected with HC V unless early or acute infection issuspected (which may be delayed in an immunocompromisedindividual), or other evidence exists to indicate HCVinfection. SALIMA-1 Antibody <0.2 AI 0.0-0.9 [facility] PROPERTY CLAIMS ADJUSTER Antibody <0.2 AI 0.0-0.9 [facility] SM Antibody <0.2 AI 0.0-0.9 [facility] [place] SS-A/Ro IgG Antibody < 0.2 AI 0.0-0.9 [facility] SS-B/La IgG Antibody < 0.2 AI 0.0-0.9 [facility] Total Iron Binding Capacity 297 ug/dL 250-450 [facility] [place] Tumor Marker Alpha Fetoprotein 7.7 ng/mL 0.0-6.4 [facility] [place] Comment on above: [facility] El ectrochemiluminescence Immunoassay(ECLIA)Values obtained with different assay methods or kits cannotbe used interchangeably. Results cannot be interpreted asabsolute evidence of the presence or absence of malignantdisease.This test is not interpretable in females. VLDL Cholesterol 18 mg/dL 5-40 [facility] [place] No Panel InformationOrdered By: Stephane Melgar on 07-07-2023 Addendum Document Comment . [facility] [place] Comment on above: Protein electrophore sis scan will follow via computer,mail, or fender mechanic delivery. Free Lambda Light Chains, Quant 18.9 mg/L 5.7-26.3 [facility] [place] Immunoglobulin M 106 mg/dL 26-217 [facility] [place] Serum DNA double strand anti body assay (units/volume)Ordered By: Ramez Villatoro on 07-07-2023 DNA double strand Ab Qn (S) [IU]/mL 0-9 [facility] [place] Comment on above: Negative <5 Equivoca l 5 - 9 Positive >9 Serum Scl-70 antibody assay (units/volume)Ordered By: Ramez Villatoro on 07-07-2023 SCL-70 extractable nuclear Ab Qn (S) <0.2 AI 0.0-0.9 [facility] [place] Serum wgfpm-5-stbtlskg measu rement by electrophoresisOrdered By: Stephane Melgar on 07-07-2023 Alpha 1 globulin Elph [Mass/Vol] 0.2 g/dL 0.0-0.4 [facility] [place] Alpha 1 globulin Elph [Mass/Vol] 0.6 g/dL 0.4-1.0 [facility] [place] Serum classic neutrophil cyt oplasmic antibody assay (units/volume)Ordered By: Ramez Villatoro on 07-07-2023 Neutrophil cytoplasmic Ab.classic Qn (S) <1:20 titer Neg:<1:20 [facility] [place] Serum immunoglobulin kappa l ight chains/immunoglobulin lambda light chains mass ratioOrdered By: Stephane Melgar on 07-07-2023 Immunoglobulin light chains.kappa/Immunoglobu beka light chains.lambda (S) [Mass ratio] 0.93 0.26-1.65 [facility] [place] Comment on above: Performed at: [email or web address] [place] [id number] Director: Dipesh Nagy PhD, Phone: [phone] Serum mitochondria antibody detectionOrdered By: Ramez Villatoro on 07-07-2023 Mitochondria Ab Ql (S) <20.0 Units 0.0-20.[address] [facility] Comment on above: Negative 0.0 - 20.0 Equivocal 20.1 - 24.9 Positive >24.9Mitochondrial (M2) Antibodies are found in 90-96% ofpatients with primary biliary cirrhosis.Performed at: [facility] [address] [id number] Director: Dipesh Nagy PhD, Phone: [phone] Serum or plasma IgA measurem ent (mass/volume)Ordered By: Stephane Melgar on 07-07-2023 IgA [Mass/Vol] 202 mg/dL 87-352 [facility] Serum or plasma IgG measurem ent (mass/volume)Ordered By: Stephane Melgar on 07-07-2023 IgG [Mass/Vol] 1080 mg/dL 586-1602 [facility] [place] Serum or plasma actin IgG an tibody assay (units/volume)Ordered By: Ramez Villatoro on 07-07-2023 Actin IgG Qn 15 Units 0-19 [facility] [place] Comment on above: Negative 0 - 19 Weak positive 20 - 30 Moderate to strong positive >30 Actin Antibodies are found in 52-85% of patients with autoimmune hepatitis or chronic active hepatitis and in 22% of patients with primary biliary cirrhosis. Serum or plasma angiotensin converting enzyme measurement (enzymatic activity/volume)Ordered By: Ramez Villatoro on 07-07-2023 Angiotensin converting enzyme [Catalytic activity/Vol] 49 U/L 14-82 [facility] [place] Serum or plasma beta globuli n measurement by electrophoresis (mass/volume)Ordered By: Stephane Melgar on 07-07-2023 Beta globulin Elph [Mass/Vol] 1.1 g/dL 0.7-1.3 [facility] [place] Serum or plasma calcium erick urement (mass/volume)Ordered By: Ramez Villatoro on 07-07-2023 Calcium [Mass/Vol] 8.5 mg/dL 8.5-10.1 [facility] Serum or plasma creatinine m easurement (mass/volume)Ordered By: Ramez Villatoro on 07-07-2023 Creatinine [Mass/Vol] 0.70 mg/dL 0.55-1.02 [facility] Comment on above: The validity of the calculated GFR & GFRAA in patients over 70 years has not been determined. Clinical correlation is essential. Serum or plasma gamma globul in measurement by electrophoresis (mass/volume)Ordered By: Stephane Melgar on 07-07-2023 Gamma globulin Elph [Mass/Vol] 1.1 g/dL 0.4-1.8 [facility] [place] Serum or plasma hepatitis B virus surface antigen detection by immunoassayOrdered By: Ramez Villatoro on 07-07-2023 HBV surface Ag IA Ql Negative Negative [facility] Serum or plasma immunoelectr ophoresis interpretation (nominal result)Ordered By: Stephane Melgar on 07-07-2023 Interpretation IEP [Interp] Comment . [facility] [place] Comment on above: Immunofixation shows IgG monoclonal protein with lambdalight chain specificity. Serum or plasma immunoglobul in kappa light chains measurement (mass/volume)Ordered By: Stephane Melgar on 07-07-2023 Immunoglobulin light chains.kappa [Mass/Vol] 17.5 mg/L 3.3-19.4 [facility] [place] Serum or plasma urea nitroge n measurement (mass/volume)Ordered By: Ramez Villatoro on 07-07-2023 Urea nitrogen [Mass/Vol] 10 mg/dL - [facility] Serum perinuclear neutrophil cytoplasmic antibody titer by immunofluorescenceOrdered By: Ramez Villatoro on 07-07-2023 Neutrophil cytoplasmic Ab.perinuclear IF (S) [Titer] <1:20 titer Neg:<1:20 [facility] [place] Comment on above: The presence of posi tive fluorescence exhibiting P-ANCA orC-ANCA patterns alone is not specific for the diagnosis ofWegener's Granulomatosis (WG) or microscopic polyangiitis.Decisions about treatment should not be based solely onANCA IFA results. The [employer] Consensusrecommends follow up testing of positive sera with both ND-3 and MPO-ANCA enzyme immunoassays. As many as 5% serumsamples are positive only by EIA. Ref. AM J Clin Cdwgum8835;111:507-513. Thin prep Papanicolaou smear with manual screeningOrdered By: Ramez Villatoro on 07-07-2023 Thin prep Papanicolaou smear with manual screening 3.8 g/dL 3.2-5.0 [facility] Thin prep Papanicolaou smear with manual screening 20 U/L 15-37 [facility] [place] Thin prep Papanicolaou smear with manual screening 6 5-15 [facility] Thin prep Papanicolaou smear with manual screening 114 ug/dL 80-158 [facility] [place] Comment on above: Detection Limit = 5 Thin prep Papanicolaou smear with manual screeningOrdered By: Stephane Melgar on 07-07-2023 Thin prep Papanicolaou smear with manual screening 1.4 0.7-1.7 [facility] [place] Total protein bloodOrdered B y: Stephane Melgar on 07-07-2023 Protein [Mass/Vol] 7.0 g/dL 6.0-8.5 [facility] Whole blood hemoglobin A1c/t otal hemoglobin ratio (mass fraction)Ordered By: Ramez Villatoro on 07-07-2023 HbA1c (Bld) [Mass fraction] 5.2 % 3.8-5.6 [facility] [place] Comment on above: Normal < 5.7 % Predi abetic 5.7 - 6.4 % Diabetic >or= 6.5 % Please note range changes. Absolute lymphocyte countOrd ered By: Stephane Melgar on 06-24-2023 Lymphocytes Auto (Unsp spec) [#/Vol] 2.56 10*3/uL 0.83-4.51 [facility] [place] Albumin Elph [Mass/Vol]Order ed By: Stephane Paulsonrambo on 06-24-2023 Albumin [Mass/Vol] 4.1 g/dL 2.9-4.4 [facility] Automated lymphocyte count a s percentage of total leukocytesOrdered By: Stephane Paulsonrambo on 06-24-2023 Lymphocytes/100 WBC Auto (Unsp spec) 33.3 % 19-41 [facility] [place] Basophil percentageOrdered B y: Stephane Melgar on 06-24-2023 Basophils/100 WBC (Bld) 1.6 % 0-[address] [facility] Bilirubin [Mass/Vol] 0.40 mg/dL 0.20-1.00 [facility] Comment on above: For patients on eltr ombopag therapy, use of Dimension [place] TBIL is not recommended. Chloride [Moles/Vol] 108 mmol/L 98-107 [facility] Eosinophils/100 WBC (Bld) 1.2 % 0-5 [facility] [place] Glucose [Mass/Vol] 102 mg/dL 74-106 [facility] Comment on above: Fasting Glucose resu lt from 100 to 125 mg/dL suggests IMPAIRED HOMEOSTASIS per A.D.A. criteria. Hemoglobin (Bld) [Mass/Vol] 14.0 g/dL 12.0-15.0 [facility] [place] LDH [Catalytic activity/Vol] 176 U/L 84-246 [facility] Monocytes/100 WBC (Bld) 6.1 % 0-10 [facility] Neutrophils (Bld) [#/Vol] 4.4 10*3/uL 2.0-7.7 [facility] Neutrophils/100 WBC (Bld) 57.4 % 47-70 [facility] Potassium [Moles/Vol] 4.0 mmol/L 3.5-5.1 [facility] Protein [Mass/Vol] 7.5 g/dL 6.4-8.2 [facility] Sodium [Moles/Vol] 139 mmol/L 136-145 [facility] WBC (Bld) [#/Vol] 7.7 10*3/uL 4.4-11.0 [facility] Determination of erythrocyte mean corpuscular volume (MCV)Ordered By: Stephane Melgar on 06-24-2023 MCV (RBC) [Entitic vol] 90.0 fL 81-[address] [facility] Erythrocyte distribution wid th ratioOrdered By: Stephane Melgar on 06-24-2023 Erythrocyte distribution width (RBC) [Ratio] 13.2 % 11.6-14.6 [facility] Erythrocyte distribution wid th standard deviationOrdered By: Stephane Melgar on 06-24-2023 Erythrocyte distribution width (RBC) [Entitic vol] 42.9 fL 35.1-43.9 [facility] Hematocrit Auto (Bld) [Volum e fraction]Ordered By: Stephane Melgar on 06-24-2023 Hematocrit (Bld) [Volume fraction] 42.1 % 37-47 [facility] Immature granulocytes/100 WB C Auto (Bld)Ordered By: Stephane Melgar on 06-24-2023 Immature granulocytes/100 WBC (Bld) 0.400 % 0.0-0.9 [facility] Comment on above: IG% - Immature Granu locytes (promyelocytes, myelocytes and metamyelocytes) > 1% indicates that a LEFT SHIFT is Present. Interpretation of serum or p lasma protein pattern by immunofixation (narrative resultOrdered By: Stephane Melgar on 06-24-2023 Protein Fractions Immunofixation Vinny [Interp] 0.4 g/dL Not Observed [facility] Laboratory - Chemistry and C hemistry - challengeOrdered By: Stephane Melgar on 06-24-2023 Albumin/Globulin [Mass ratio] 1.1 {ratio} 0.9-2.4 [facility] ALP [Catalytic activity/Vol] 66 U/L 45-117 [facility] ALT [Catalytic activity/Vol] 31 U/L 13-56 [facility] CO2 [Moles/Vol] 28.0 mmol/L 21.0-32.0 [facility] Urea nitrogen/Creatinine [Mass ratio] 18.3 mg/mg 10-20 [facility] Laboratory - Hematology and Cell countsOrdered By: Stephane Melgar on 06-24-2023 MCH (RBC) [Entitic mass] 29.9 pg 27.0-32.0 [facility] MCHC (RBC) [Mass/Vol] 33.3 g/dL 32-36 [facility] Nucleated RBC/100 WBC (Bld) [Ratio] 0 % 0-5 [facility] Platelet mean volume (Bld) [Entitic vol] 9.9 fL 6.2-12.0 [facility] Platelets (Bld) [#/Vol] 324 10*3/uL 150-450 [facility] No Panel InformationOrdered By: Stephane Melgar on 06-24-2023 Addendum Document Comment . [facility] Comment on above: Protein electrophore sis scan will follow via computer,mail, or fender mechanic delivery. Estimated GFR (MDRD) Amer 138 mL/min >60 [facility] Comment on above: GFR Calc Estimated GFR (MDRD) Non-Af Amer 114 mL/min >60 [facility] Comment on above: Non- GFR Calc Free Lambda Light Chains, Quant 20.4 mg/L 5.7-26.3 [facility] Immunoglobulin M 117 mg/dL 26-217 [facility] RBC Auto (Bld) [#/Vol]Ordere d By: Stephane Melgar on 06-24-2023 RBC (Bld) [#/Vol] 4.68 10*6/uL 4.2-5.4 [facility] Serum [id number] measu rement by electrophoresisOrdered By: Stephane Melagr on 06-24-2023 Alpha 1 globulin Elph [Mass/Vol] 0.2 g/dL 0.0-0.4 [facility] Alpha 1 globulin Elph [Mass/Vol] 0.6 g/dL 0.4-1.0 [facility] Serum globulin measurement ( mass/volume)Ordered By: Stephane Melgar on 06-24-2023 Globulin (S) [Mass/Vol] 2.9 g/dL 2.2-3.[address] [facility] Serum immunoglobulin kappa l ight chains/immunoglobulin lambda light chains mass ratioOrdered By: Stephane Melgar on 06-24-2023 Immunoglobulin light chains.kappa/Immunoglobu beka light chains.lambda (S) [Mass ratio] 0.92 0.26-1.65 [facility] Comment on above: Performed at: [address] [id number] Director: Dipesh Nagy PhD, Phone: [phone] Serum or plasma IgA measurem ent (mass/volume)Ordered By: Stephane Melgar on 06-24-2023 IgA [Mass/Vol] 199 mg/dL 87-352 [facility] Serum or plasma IgG measurem ent (mass/volume)Ordered By: Stephane Melgar on 06-24-2023 IgG [Mass/Vol] 1065 mg/dL 586-1602 [facility] Serum or plasma beta globuli n measurement by electrophoresis (mass/volume)Ordered By: Stephane Melgar on 06-24-2023 Beta globulin Elph [Mass/Vol] 1.0 g/dL 0.7-1.3 [facility] Serum or plasma calcium erick urement (mass/volume)Ordered By: Stephane Melgar on 06-24-2023 Calcium [Mass/Vol] 9.1 mg/dL 8.5-10.1 [facility] Serum or plasma creatinine m easurement (mass/volume)Ordered By: Stephane Melgar on 06-24-2023 Creatinine [Mass/Vol] 0.60 mg/dL 0.55-1.02 [facility] Comment on above: The validity of the calculated GFR & GFRAA in patients over 70 years has not been determined. Clinical correlation is essential. Serum or plasma gamma globul in measurement by electrophoresis (mass/volume)Ordered By: Stephane Melgar on 06-24-2023 Gamma globulin Elph [Mass/Vol] 1.1 g/dL 0.4-1.8 [facility] Serum or plasma immunoelectr ophoresis interpretation (nominal result)Ordered By: Stephane Melgar on 06-24-2023 Interpretation IEP [Interp] Comment . [facility] Comment on above: Immunofixation shows IgG monoclonal protein with lambdalight chain specificity. Serum or plasma immunoglobul in kappa light chains measurement (mass/volume)Ordered By: Stephane Melgar on 06-24-2023 Immunoglobulin light chains.kappa [Mass/Vol] 18.8 mg/L 3.3-19.4 [facility] Serum or plasma urea nitroge n measurement (mass/volume)Ordered By: Stephane Melgar on 06-24-2023 Urea nitrogen [Mass/Vol] 11 mg/dL 7-18 [facility] Thin prep Papanicolaou smear with manual screeningOrdered By: Stephane Melgar on 06-24-2023 Thin prep Papanicolaou smear with manual screening 3.9 g/dL 3.2-5.0 [facility] Thin prep Papanicolaou smear with manual screening 18 U/L 15-37 [facility] Thin prep Papanicolaou smear with manual screening 3 5-15 [facility] Thin prep Papanicolaou smear with manual screening 1.5 0.7-1.7 [facility] Total protein bloodOrdered B y: Stephane Melgar on 06-24-2023 Protein [Mass/Vol] 7.0 g/dL 6.0-8.5 [facility] Basophil percentageOrdered B y: Ramez Friend on 06-09-2023 Basophil percentage < 1.0 mg/dL 0.55-1.02 [facility] No Panel InformationOrdered By: Ramez Friend on 06-09-2023 Bedside Estimated GFR (eGFR) > 60.0000 mL/min >60 [facility] Absolute lymphocyte countOrd ered By: Cesar Lloyd on 04-22-2023 Lymphocytes Auto (Unsp spec) [#/Vol] 1.65 10*3/uL 0.83-4.51 [facility] Basophil percentageOrdered B y: Cesar Lloyd on 04-22-2023 Basophils/100 WBC (Bld) 0.9 % 0-[address] [facility] Chloride [Moles/Vol] 108 mmol/L 98-107 [facility] Eosinophils/100 WBC (Bld) 0.4 % 0-5 [facility] Glucose [Mass/Vol] 106 mg/dL 74-106 [facility] Comment on above: Fasting Glucose resu lt from 100 to 125 mg/dL suggests IMPAIRED HOMEOSTASIS per A.D.A. criteria. Neutrophils (Bld) [#/Vol] 7.6 10*3/uL 2.0-7.7 [facility] Neutrophils/100 WBC (Bld) 76.8 % 47-70 [facility] Potassium [Moles/Vol] 3.9 mmol/L 3.5-5.1 [facility] Sodium [Moles/Vol] 142 mmol/L 136-145 [facility] WBC (Bld) [#/Vol] 9.9 10*3/uL 4.4-11.0 [facility] Blood erythrocytes count (nu mber/volume)Ordered By: Cesar Lloyd on 04-22-2023 RBC (Bld) [#/Vol] 4.81 10*6/uL 4.2-5.4 [facility] Blood hemoglobin measurement (mass/volume)Ordered By: Cesar Lloyd on 04-22-2023 Hemoglobin (Bld) [Mass/Vol] 14.3 g/dL 12.0-15.0 [facility] Blood lymphocytes/100 leukoc ytesOrdered By: Cesar Lloyd on 04-22-2023 Lymphocytes/100 WBC (Bld) 16.7 % 19-41 [facility] Blood monocytes/100 leukocyt esOrdered By: Cesar Lloyd on 04-22-2023 Monocytes/100 WBC (Bld) 4.7 % 0-[address] [facility] Blood platelet mean volumeOr dered By: Cesar Lloyd on 04-22-2023 Platelet mean volume (Bld) [Entitic vol] 10.2 fL 6.2-12.0 [facility] Determination of erythrocyte mean corpuscular volume (MCV)Ordered By: Cesar Lloyd on 04-22-2023 MCV (RBC) [Entitic vol] 89.2 fL 81-[address] [facility] Hematocrit Auto (Bld) [Volum e fraction]Ordered By: Cesar Lloyd on 04-22-2023 Hematocrit (Bld) [Volume fraction] 42.9 % 37-47 [facility] Laboratory - Chemistry and C hemistry - challengeOrdered By: Cesar Lloyd on 04-22-2023 CO2 [Moles/Vol] 27.0 mmol/L 21.0-32.0 [facility] Urea nitrogen/Creatinine [Mass ratio] 12.2 mg/mg 10-20 [facility] Laboratory - Hematology and Cell countsOrdered By: Cesar Lloyd on 04-22-2023 Erythrocyte distribution width (RBC) [Entitic vol] 43.2 fL 35.1-43.9 [facility] Erythrocyte distribution width (RBC) [Ratio] 13.1 % 11.6-14.6 [facility] Immature granulocytes/100 WBC (Bld) 0.500 % 0.0-0.9 [facility] Comment on above: IG% - Immature Granu locytes (promyelocytes, myelocytes and metamyelocytes) > 1% indicates that a LEFT SHIFT is Present. MCH (RBC) [Entitic mass] 29.7 pg 27.0-32.0 [facility] Nucleated RBC/100 WBC (Bld) [Ratio] 0 % 0-5 [facility] MCHC Auto (RBC) [Mass/Vol]Or dered By: Cesar Lloyd on 04-22-2023 MCHC (RBC) [Mass/Vol] 33.3 g/dL 32-36 [facility] No Panel InformationOrdered By: Cesar Lloyd on 04-22-2023 Troponin I High Sensitivity 5 pg/mL 3.0-54.0 [facility] Comment on above: Please Note: New Geri t Units and Gender Specific Reference Ranges. For more information see Policy Stat Procedure [place] High Sensitivity Troponin (TNIH) and attachments. Estimated Creatinine Clearance Calc 107.63 ml/min [facility] Estimated GFR (MDRD) Amer 147 mL/min >60 [facility] Comment on above: GFR Calc Estimated GFR (MDRD) Non-Af Amer 121 mL/min >60 [facility] Comment on above: Non- GFR Calc Platelets bldOrdered By: Lalito Lloyd on 04-22-2023 Platelets (Bld) [#/Vol] 316 10*3/uL 150-450 [facility] Serum or plasma calcium erick urement (mass/volume)Ordered By: Cesar Lloyd on 04-22-2023 Calcium [Mass/Vol] 9.0 mg/dL 8.5-10.1 [facility] Serum or plasma creatinine m easurement (mass/volume)Ordered By: Cesar Lloyd on 04-22-2023 Creatinine [Mass/Vol] 0.57 mg/dL 0.55-1.02 [facility] Comment on above: The validity of the calculated GFR & GFRAA in patients over 70 years has not been determined. Clinical correlation is essential. Serum or plasma urea nitroge n measurement (mass/volume)Ordered By: Cesar Lloyd on 04-22-2023 Urea nitrogen [Mass/Vol] 7 mg/dL 7-18 [facility] Thin prep Papanicolaou smear with manual screeningOrdered By: eCsar Lloyd on 04-22-2023 Thin prep Papanicolaou smear with manual screening 7 5-15 [facility] Absolute lymphocyte countOrd ered By: Giancarlo Katharina on 03-07-2023 Lymphocytes Auto (Unsp spec) [#/Vol] 2.78 10*3/uL 0.83-4.51 [facility] Basophil percentageOrdered B y: Giancarlo Katharina on 03-07-2023 Basophil percentage 0 SEEN /hpf 0-5 [facility] Basophils/100 WBC (Bld) 1.5 % 0-1 [facility] Chloride [Moles/Vol] 101 mmol/L 98-107 [facility] Eosinophils/100 WBC (Bld) 2.1 % 0-5 [facility] Glucose [Mass/Vol] 102 mg/dL 74-106 [facility] Comment on above: Fasting Glucose resu lt from 100 to 125 mg/dL suggests IMPAIRED HOMEOSTASIS per A.D.A. criteria. Neutrophils (Bld) [#/Vol] 4.4 10*3/uL 2.0-7.7 [facility] Neutrophils/100 WBC (Bld) 55.0 % 47-70 [facility] Potassium [Moles/Vol] 3.6 mmol/L 3.5-5.1 [facility] Sodium [Moles/Vol] 136 mmol/L 136-145 [facility] WBC (Bld) [#/Vol] 8.0 10*3/uL 4.4-11.0 [facility] Bilirubin Test strip Ql (U)O rdered By: Giancarlo Posadas on 03-07-2023 Bilirubin Ql (U) Negative Negative [facility] Blood erythrocytes count (nu mber/volume)Ordered By: Giancarlo Posadas on 03-07-2023 RBC (Bld) [#/Vol] 4.92 10*6/uL 4.2-5.4 [facility] Blood hemoglobin measurement (mass/volume)Ordered By: Giancarlo Posadas on 03-07-2023 Hemoglobin (Bld) [Mass/Vol] 14.6 g/dL 12.0-15.0 [facility] Blood lymphocytes/100 leukoc ytesOrdered By: iGancarlo Posadas on 03-07-2023 Lymphocytes/100 WBC (Bld) 34.6 % 19-41 [facility] Blood monocytes/100 leukocyt esOrdered By: Giancarlo Posadas on 03-07-2023 Monocytes/100 WBC (Bld) 6.6 % 0-[address] [facility] Blood platelet mean volumeOr dered By: Giancarlo Posadas on 03-07-2023 Platelet mean volume (Bld) [Entitic vol] 10.6 fL 6.2-12.0 [facility] Culture, urineOrdered By: Miah Posadas on 03-07-2023 Bacteria identified Cx Nom (U) Mixed Gram Pos & Gram Neg Org [facility] Determination of erythrocyte mean corpuscular volume (MCV)Ordered By: Giancarlo Posadas on 03-07-2023 MCV (RBC) [Entitic vol] 90.4 fL 81-[address] [facility] Hematocrit Auto (Bld) [Volum e fraction]Ordered By: Giancarlo Posadas on 03-07-2023 Hematocrit (Bld) [Volume fraction] 44.5 % 37-47 [facility] Ketones Test strip Ql (U)Ord ered By: Giancarlo Posadas on 03-07-2023 Ketones Ql (U) Negative Negative [facility] Laboratory - Chemistry and C hemistry - challengeOrdered By: Giancarlo Posadas on 03-07-2023 CO2 [Moles/Vol] 29.0 mmol/L 21.0-32.0 [facility] Magnesium [Mass/Vol] 2.1 mg/dL 1.6-2.6 [facility] Urea nitrogen/Creatinine [Mass ratio] 15.2 mg/mg 10-20 [facility] Laboratory - Hematology and Cell countsOrdered By: Giancarlo Posadas on 03-07-2023 Erythrocyte distribution width (RBC) [Entitic vol] 44.9 fL 35.1-43.9 [facility] Erythrocyte distribution width (RBC) [Ratio] 13.6 % 11.6-14.6 [facility] Immature granulocytes/100 WBC (Bld) 0.200 % 0.0-0.9 [facility] Comment on above: IG% - Immature Granu locytes (promyelocytes, myelocytes and metamyelocytes) > 1% indicates that a LEFT SHIFT is Present. MCH (RBC) [Entitic mass] 29.7 pg 27.0-32.0 [facility] Nucleated RBC/100 WBC (Bld) [Ratio] 0 % 0-5 [facility] MCHC Auto (RBC) [Mass/Vol]Or dered By: Giancarlo Posadas on 03-07-2023 MCHC (RBC) [Mass/Vol] 32.8 g/dL 32-36 [facility] Mucus LM Ql (Urine sed)Order ed By: Giancarlo Posadas on 03-07-2023 Mucus Ql (Urine sed) 0 SEEN /hpf [facility] Nitrite Test strip Ql (U)Ord ered By: Giancarlo Posadsa on 03-07-2023 Nitrite Ql (U) Negative Negative [facility] No Panel InformationOrdered By: Giancarlo Posadas on 03-07-2023 Estimated GFR (MDRD) Amer 161 mL/min >60 [facility] Comment on above: GFR Calc Estimated GFR (MDRD) Non-Af Amer 133 mL/min >60 [facility] Comment on above: Non- GFR Calc Thyroid Stimulating Hormone (TSH) 0.86 uIU/mL 0.358-3.74 [facility] Platelets bldOrdered By: Alycia Posadas on 03-07-2023 Platelets (Bld) [#/Vol] 314 10*3/uL 150-450 [facility] Protein Test strip Ql (U)Ord ered By: Giancarlo Posadas on 03-07-2023 Protein Ql (U) Negative Negative [facility] Serum or plasma calcium erick urement (mass/volume)Ordered By: Giancarlo Posadas on 03-07-2023 Calcium [Mass/Vol] 9.0 mg/dL 8.5-10.1 [facility] Serum or plasma creatinine m easurement (mass/volume)Ordered By: Giancarlo Posadas on 03-07-2023 Creatinine [Mass/Vol] 0.53 mg/dL 0.55-1.02 [facility] Comment on above: The validity of the calculated GFR & GFRAA in patients over 70 years has not been determined. Clinical correlation is essential. Serum or plasma urea nitroge n measurement (mass/volume)Ordered By: Giancarlo Posadas on 03-07-2023 Urea nitrogen [Mass/Vol] 8 mg/dL 7-18 [facility] Squamous epithelial cells de tection in urine sediment by light microscopyOrdered By: Giancarlo Posadas on 03-07-2023 Epithelial cells.squamous LM Ql (Urine sed) 0-5 SEEN /hpf 5-10 [facility] Thin prep Papanicolaou smear with manual screeningOrdered By: Giancarlo Posadas on 03-07-2023 Thin prep Papanicolaou smear with manual screening 6 5-15 [facility] Urine blood detectionOrdered By: Giancarlo Posadas on 03-07-2023 RBC Ql (U) 10 /ul Negative [facility] RBC Ql (U) 0 SEEN /hpf 0-5 [facility] Urine clarityOrdered By: Alycia Posadas on 03-07-2023 Clarity (U) Clear Clear [facility] Urine color determinationOrd ered By: Giancarlo Posadas on 03-07-2023 Color (U) Straw Yellow [facility] Urine glucose detectionOrder ed By: Giancarlo Posadas on 03-07-2023 Glucose Ql (U) Normal mg/dl Normal [facility] Urine leukocyte esterase det ection by dipstickOrdered By: Giancarlo Posadas on 03-07-2023 Leukocyte esterase Test strip Ql (U) Negative Negative [facility] Urine pHOrdered By: Giancarlo tinoco on 03-07-2023 pH (U) 7.0 [pH] 5.0 - 8.0 [facility] Urine sediment bacteria coun t by microscopy (number/high power field)Ordered By: Giancarlo Posadas on 03-07-2023 Bacteria LM.HPF (Urine sed) [#/Area] 0 /[HPF] None Seen [facility] Urine specific gravity measu rementOrdered By: Giancarlo Posadas on 03-07-2023 Specific gravity (U) [Rel density] 1.005 1.002-1.030 [facility] Urobilinogen Auto test strip Ql (U)Ordered By: Giancarlo Posadas on 03-07-2023 Urobilinogen Ql (U) Normal mg/dl Normal [facility] Absolute lymphocyte countOrd ered By: Ramez Villatoro on 02-27-2023 Lymphocytes Auto (Unsp spec) [#/Vol] 2.86 10*3/uL 0.83-4.51 [facility] Albumin Elph [Mass/Vol]Order ed By: Ramez Villatoor on 02-27-2023 Albumin [Mass/Vol] 4.0 g/dL 2.9-4.4 [facility] Basophil percentageOrdered B y: Ramez Villatoro on 02-27-2023 Basophils/100 WBC (Bld) 1.6 % 0-[address] [facility] Eosinophils/100 WBC (Bld) 1.2 % 0-5 [facility] LDH [Catalytic activity/Vol] 194 U/L 84-246 [facility] Neutrophils (Bld) [#/Vol] 5.6 10*3/uL 2.0-7.7 [facility] Neutrophils/100 WBC (Bld) 59.8 % 47-70 [facility] WBC (Bld) [#/Vol] 9.3 10*3/uL 4.4-11.0 [facility] Blood erythrocytes count (nu mber/volume)Ordered By: Ramez Villatoro on 02-27-2023 RBC (Bld) [#/Vol] 4.83 10*6/uL 4.2-5.4 [facility] Blood hemoglobin measurement (mass/volume)Ordered By: Ramez Villatoro on 02-27-2023 Hemoglobin (Bld) [Mass/Vol] 14.0 g/dL 12.0-15.0 [facility] Blood lymphocytes/100 leukoc ytesOrdered By: Ramez Villatoro on 02-27-2023 Lymphocytes/100 WBC (Bld) 30.8 % 19-41 [facility] Blood monocytes/100 leukocyt esOrdered By: Ramez Villatoro on 02-27-2023 Monocytes/100 WBC (Bld) 6.3 % 0-[address] [facility] Blood platelet mean volumeOr dered By: Ramez Villatoro on 02-27-2023 Platelet mean volume (Bld) [Entitic vol] 10.5 fL 6.2-12.0 [facility] Determination of erythrocyte mean corpuscular volume (MCV)Ordered By: Ramez Villatoro on 02-27-2023 MCV (RBC) [Entitic vol] 88.2 fL 81-[address] [facility] Hematocrit Auto (Bld) [Volum e fraction]Ordered By: Ramez Villatoro on 02-27-2023 Hematocrit (Bld) [Volume fraction] 42.6 % 37-47 [facility] Hemoglobin in reticulocytes (mass per reticulocyte)Ordered By: Ramezapoorva Villatoro on 02-27-2023 Hemoglobin (Reticulocytes) [Entitic mass] 32.7 pg 30-35 [facility] Interpretation of serum or p lasma protein pattern by immunofixation (narrative resultOrdered By: Ramez Villatoro on 02-27-2023 Protein Fractions Immunofixation Vinny [Interp] 0.3 g/dL Not Observed [facility] Iron measurement (mass/mass) Ordered By: Ramez Villatoro on 02-27-2023 Iron (Unsp spec) [Mass/Mass] 53 ug/dL 50-170 [facility] Laboratory - Hematology and Cell countsOrdered By: Ramez Villatoro on 02-27-2023 Erythrocyte distribution width (RBC) [Entitic vol] 43.4 fL 35.1-43.9 [facility] Erythrocyte distribution width (RBC) [Ratio] 13.5 % 11.6-14.6 [facility] Immature granulocytes/100 WBC (Bld) 0.300 % 0.0-0.9 [facility] Comment on above: IG% - Immature Granu locytes (promyelocytes, myelocytes and metamyelocytes) > 1% indicates that a LEFT SHIFT is Present. MCH (RBC) [Entitic mass] 29.0 pg 27.0-32.0 [facility] Nucleated RBC/100 WBC (Bld) [Ratio] 0 % 0-5 [facility] MCHC Auto (RBC) [Mass/Vol]Or dered By: Ramez Villatoro on 02-27-2023 MCHC (RBC) [Mass/Vol] 32.9 g/dL 32-36 [facility] No Panel InformationOrdered By: Ramez Villatoro on 02-27-2023 Addendum Document Comment . [facility] Comment on above: Protein electrophore sis scan will follow via computer,mail, or fender mechanic delivery. Endomysial IgA Antibody Negative Negative [facility] Haptoglobin 69 mg/dL 42-296 [facility] Comment on above: Performed at: [email or web address] [address] [id number] Director: Dipesh Nagy PhD, Phone: [phone] Immature Reticulocyte Fraction 7.00 % 3.00-15.90 [facility] Reticulocyte Count 1.87 % 0.5-1.5 [facility] Total Iron Binding Capacity 297 ug/dL 250-450 [facility] Platelets bldOrdered By: Jeff Villatoro on 02-27-2023 Platelets (Bld) [#/Vol] 351 10*3/uL 150-450 [facility] Serum [id number] measu rement by electrophoresisOrdered By: Ramez Villatoro on 02-27-2023 Alpha 1 globulin Elph [Mass/Vol] 0.2 g/dL 0.0-0.4 [facility] Alpha 1 globulin Elph [Mass/Vol] 0.6 g/dL 0.4-1.0 [facility] Serum globulin measurement ( mass/volume)Ordered By: Ramez Villatoro on 02-27-2023 Globulin (S) [Mass/Vol] 2.9 g/dL 2.2-3.9 [facility] Serum or plasma IgA measurem ent (mass/volume)Ordered By: Ramez Villatoro on 02-27-2023 IgA [Mass/Vol] 213 mg/dL 87-352 [facility] Serum or plasma IgG measurem ent (mass/volume)Ordered By: Ramez Villatoro on 02-27-2023 IgG [Mass/Vol] 1055 mg/dL [phone] [facility] Serum or plasma IgM measurem ent (mass/volume)Ordered By: Ramez Villatoro on 02-27-2023 IgM [Mass/Vol] 109 mg/dL 26-217 [facility] Serum or plasma beta globuli n measurement by electrophoresis (mass/volume)Ordered By: Ramez Villatoro on 02-27-2023 Beta globulin Elph [Mass/Vol] 0.9 g/dL 0.7-1.3 [facility] Serum or plasma ferritin chris surement (mass/volume)Ordered By: Ramez Villatoro on 02-27-2023 Ferritin [Mass/Vol] 144 ng/mL 8-252 [facility] Serum or plasma gamma globul in measurement by electrophoresis (mass/volume)Ordered By: Ramez Villatoro on 02-27-2023 Gamma globulin Elph [Mass/Vol] 1.1 g/dL 0.4-1.8 [facility] Serum or plasma immunoelectr ophoresis interpretation (nominal result)Ordered By: Ramez Villatoro on 02-27-2023 Interpretation IEP [Interp] Comment . [facility] Comment on above: Immunofixation shows IgG monoclonal protein with lambdalight chain specificity. Serum tissue transglutaminas e IgA antibody assay (units/volume)Ordered By: Ramez Villatoro on 02-27-2023 tTG IgA Qn (S) <2 U/mL 0-3 [facility] Comment on above: Negative 0 - 3 Weak Positive 4 - 10 Positive >10 Tissue Transglutaminase (tTG) has been identified as the endomysial antigen. Studies have demonstr- ated that endomysial IgA antibodies have over 99% specificity for gluten sensitive enteropathy. Thin prep Papanicolaou smear with manual screeningOrdered By: Ramez Villatoro on 02-27-2023 Thin prep Papanicolaou smear with manual screening 1.4 0.7-1.7 [facility] Total protein bloodOrdered B y: Ramez Villatoro on 02-27-2023 Protein [Mass/Vol] 6.9 g/dL 6.0-8.5 [facility] Absolute lymphocyte countOrd ered By: HEALTH ASSESSMENT on 12-13-2022 Lymphocytes Auto (Unsp spec) [#/Vol] 2.48 10*3/uL 0.83-4.51 [facility] Absolute reticulocyte countO rdered By: HEALTH ASSESSMENT on 12-13-2022 Reticulocytes (Bld) [#/Vol] 0.00 10*3/uL 0-5 [facility] Basophil percentageOrdered B y: HEALTH ASSESSMENT on 12-13-2022 Basophil percentage 3.6 mg/dL 2.5-4.9 [facility] Bilirubin [Mass/Vol] 0.30 mg/dL 0.20-1.00 [facility] Comment on above: For patients on eltr ombopag therapy, use of Dimension [place] TBIL is not recommended. Chloride [Moles/Vol] 107 mmol/L 98-107 [facility] Cholesterol [Mass/Vol] 143 mg/dL <200 [facility] Comment on above: <200 mg/dL Desirable 200-240 mg/dL Borderline >240 mg/dL High Risk Glucose [Mass/Vol] 95 mg/dL 74-106 [facility] LDH [Catalytic activity/Vol] 158 U/L 84-246 [facility] Neutrophils (Bld) [#/Vol] 3.2 10*3/uL 2.0-7.7 [facility] Potassium [Moles/Vol] 3.8 mmol/L 3.5-5.1 [facility] Protein [Mass/Vol] 7.0 g/dL 6.4-8.2 [facility] Sodium [Moles/Vol] 141 mmol/L 136-145 [facility] Triglyceride [Mass/Vol] 69 mg/dL <[address] [facility] Comment on above: The drugs N-Acetylcy steine and Metamizole may falsely depress this assay.Serum Triglycerides Reference Interval Normal <150 mg/dL Borderline high 150 - 199 mg/dL High 200 - 499 mg/dL Very High > or = 500 mg/dL WBC (Bld) [#/Vol] 6.4 10*3/uL 4.4-11.0 [facility] Bilirubin Test strip Ql (U)O rdered By: HEALTH ASSESSMENT on 12-13-2022 Bilirubin Ql (U) Negative Negative [facility] Blood erythrocytes count (nu mber/volume)Ordered By: HEALTH ASSESSMENT on 12-13-2022 RBC (Bld) [#/Vol] 4.39 10*6/uL 4.2-5.4 [facility] Blood hemoglobin measurement (mass/volume)Ordered By: HEALTH ASSESSMENT on 12-13-2022 Hemoglobin (Bld) [Mass/Vol] 13.3 g/dL 12.0-15.0 [facility] Blood platelet mean volumeOr dered By: HEALTH ASSESSMENT on 12-13-2022 Platelet mean volume (Bld) [Entitic vol] 10.0 fL 6.2-12.0 [facility] Determination of erythrocyte mean corpuscular volume (MCV)Ordered By: HEALTH ASSESSMENT on 12-13-2022 MCV (RBC) [Entitic vol] 93.4 fL 81-[address] [facility] Direct bilirubinOrdered By: HEALTH ASSESSMENT on 12-13-2022 Bilirubin.direct [Mass/Vol] 0.09 mg/dL 0.00-0.30 [facility] Hematocrit Auto (Bld) [Volum e fraction]Ordered By: HEALTH ASSESSMENT on 12-13-2022 Hematocrit (Bld) [Volume fraction] 41.0 % 37-47 [facility] Ketones Test strip Ql (U)Ord ered By: HEALTH ASSESSMENT on 12-13-2022 Ketones Ql (U) Negative Negative [facility] Laboratory - Chemistry and C hemistry - challengeOrdered By: HEALTH ASSESSMENT on 12-13-2022 ALP [Catalytic activity/Vol] 60 U/L 45-117 [facility] ALT [Catalytic activity/Vol] 20 U/L 13-56 [facility] Cholesterol.total/Choles terol in HDL [Mass ratio] 2.50 {ratio} [facility] CO2 [Moles/Vol] 28.0 mmol/L 21.0-32.0 [facility] Globulin (S) [Mass/Vol] 3.2 g/dL 2.2-4.[address] [facility] Urea nitrogen/Creatinine [Mass ratio] 11.1 mg/mg 10-20 [facility] Laboratory - Hematology and Cell countsOrdered By: HEALTH ASSESSMENT on 12-13-2022 Erythrocyte distribution width (RBC) [Entitic vol] 41.9 fL 35.1-43.9 [facility] Erythrocyte distribution width (RBC) [Ratio] 12.1 % 11.6-14.6 [facility] MCH (RBC) [Entitic mass] 30.3 pg 27.0-32.0 [facility] Nucleated RBC/100 WBC (Bld) [Ratio] 0 % 0-5 [facility] MCHC Auto (RBC) [Mass/Vol]Or dered By: HEALTH ASSESSMENT on 12-13-2022 MCHC (RBC) [Mass/Vol] 32.4 g/dL 32-36 [facility] Nitrite Test strip Ql (U)Ord ered By: HEALTH ASSESSMENT on 12-13-2022 Nitrite Ql (U) Negative Negative [facility] No Panel InformationOrdered By: HEALTH ASSESSMENT on 12-13-2022 Estimated GFR (MDRD) Amer 157 mL/min >60 [facility] Comment on above: GFR Calc Estimated GFR (MDRD) Non-Af Amer 130 mL/min >60 [facility] Comment on above: Non- GFR Calc Platelets bldOrdered By: Yaritza [facility] ASSESSMENT on 12-13-2022 Platelets (Bld) [#/Vol] 300 10*3/uL 150-450 [facility] Protein Test strip Ql (U)Ord ered By: HEALTH ASSESSMENT on 12-13-2022 Protein Ql (U) Negative Negative [facility] Segmented neutrophils/100 WB C Auto (Bld)Ordered By: HEALTH ASSESSMENT on 12-13-2022 Segmented neutrophils/100 WBC (Bld) 51.0 % 47-70 [facility] Serum or plasma albumin erick urement (mass/volume)Ordered By: HEALTH ASSESSMENT on 12-13-2022 Albumin [Mass/Vol] 3.8 g/dL 3.2-5.0 [facility] Serum or plasma albumin/glob ulin mass ratioOrdered By: HEALTH ASSESSMENT on 12-13-2022 Albumin/Globulin [Mass ratio] 1.2 {ratio} 0.9-2.4 [facility] Serum or plasma calcium erick urement (mass/volume)Ordered By: HEALTH ASSESSMENT on 12-13-2022 Calcium [Mass/Vol] 8.8 mg/dL 8.5-10.1 [facility] Serum or plasma cholesterol in HDL measurement (mass/volume)Ordered By: HEALTH ASSESSMENT on 12-13-2022 Cholesterol in HDL [Mass/Vol] 57 mg/dL >40 [facility] Comment on above: The drugs N-Acetylcy steine and Metamizole may falsely depress this assay. Reference Range HDL <40 mg/dL Low HDL Cholesterol HDL >or= 60 mg/dL High HDL Cholesterol Serum or plasma cholesterol in VLDL measurement (mass/volume)Ordered By: HEALTH ASSESSMENT on 12-13-2022 Cholesterol in VLDL [Mass/Vol] 14 mg/dL 5-40 [facility] Serum or plasma creatinine m easurement (mass/volume)Ordered By: HEALTH ASSESSMENT on 12-13-2022 Creatinine [Mass/Vol] 0.54 mg/dL 0.55-1.02 [facility] Comment on above: The validity of the calculated GFR & GFRAA in patients over 70 years has not been determined. Clinical correlation is essential. Serum or plasma low density lipoprotein (LDL) cholesterol measurement (mass/volume)Ordered By: HEALTH ASSESSMENT on 12-13-2022 Cholesterol in LDL [Mass/Vol] 72 mg/dL 0-130 [facility] Serum or plasma urea nitroge n measurement (mass/volume)Ordered By: HEALTH ASSESSMENT on 12-13-2022 Urea nitrogen [Mass/Vol] 6 mg/dL 7-18 [facility] Serum or plasma uric acid me asurement (mass/volume)Ordered By: HEALTH ASSESSMENT on 12-13-2022 Urate [Mass/Vol] 3.7 mg/dL 2.6-6.0 [facility] Comment on above: The drugs N-Acetylcy steine and Metamizole may falsely depress this assay. Thin prep Papanicolaou smear with manual screeningOrdered By: HEALTH ASSESSMENT on 12-13-2022 Thin prep Papanicolaou smear with manual screening 13 U/L 15-37 [facility] Thin prep Papanicolaou smear with manual screening 6 5-15 [facility] Urine blood detectionOrdered By: HEALTH ASSESSMENT on 12-13-2022 RBC Ql (U) 25 /ul Negative [facility] Urine clarityOrdered By: A [facility] ASSESSMENT on 12-13-2022 Clarity (U) Clear Clear [facility] Urine color determinationOrd ered By: HEALTH ASSESSMENT on 12-13-2022 Color (U) Yellow Yellow [facility] Urine glucose detectionOrder ed By: HEALTH ASSESSMENT on 12-13-2022 Glucose Ql (U) Normal mg/dl Normal [facility] Urine leukocyte esterase det ection by dipstickOrdered By: HEALTH ASSESSMENT on 12-13-2022 Leukocyte esterase Test strip Ql (U) Negative Negative [facility] Urine pHOrdered By: HEALTH A SSESSMENT on 12-13-2022 pH (U) 6.5 [pH] 5.0 - 8.0 [facility] Urine specific gravity measu rementOrdered By: HEALTH ASSESSMENT on 12-13-2022 Specific gravity (U) [Rel density] 1.010 1.002-1.030 [facility] Urobilinogen Auto test strip Ql (U)Ordered By: HEALTH ASSESSMENT on 12-13-2022 Urobilinogen Ql (U) Normal mg/dl Normal [facility] Absolute lymphocyte countOrd ered By: Hermelinda Castillo on 11-18-2022 Lymphocytes Auto (Unsp spec) [#/Vol] 1.63 10*3/uL 0.83-4.51 [facility] Basophil percentageOrdered B y: Hermelinda Castillo on 11-18-2022 Basophils/100 WBC (Bld) 1.1 % 0-1 [facility] Chloride [Moles/Vol] 109 mmol/L 98-107 [facility] Eosinophils/100 WBC (Bld) 1.1 % 0-5 [facility] Glucose [Mass/Vol] 85 mg/dL 74-106 [facility] Neutrophils (Bld) [#/Vol] 4.9 10*3/uL 2.0-7.7 [facility] Neutrophils/100 WBC (Bld) 67.9 % 47-70 [facility] Potassium [Moles/Vol] 4.3 mmol/L 3.5-5.1 [facility] Sodium [Moles/Vol] 140 mmol/L 136-145 [facility] WBC (Bld) [#/Vol] 7.2 10*3/uL 4.4-11.0 [facility] Blood erythrocytes count (nu mber/volume)Ordered By: Hermelinda Castillo on 11-18-2022 RBC (Bld) [#/Vol] 3.66 10*6/uL 4.2-5.4 [facility] Blood hemoglobin measurement (mass/volume)Ordered By: Hermelinda Castillo on 11-18-2022 Hemoglobin (Bld) [Mass/Vol] 11.3 g/dL 12.0-15.0 [facility] Blood lymphocytes/100 leukoc ytesOrdered By: Hermelinda Castillo on 11-18-2022 Lymphocytes/100 WBC (Bld) 22.8 % 19-41 [facility] Blood monocytes/100 leukocyt esOrdered By: Hermelinda Castillo on 11-18-2022 Monocytes/100 WBC (Bld) 6.7 % 0-[address] [facility] Blood platelet mean volumeOr dered By: Hermelinda Castillo on 11-18-2022 Platelet mean volume (Bld) [Entitic vol] 10.2 fL 6.2-12.0 [facility] Determination of erythrocyte mean corpuscular volume (MCV)Ordered By: Hermelinda Castillo on 11-18-2022 MCV (RBC) [Entitic vol] 99.5 fL 81-[address] [facility] Hematocrit Auto (Bld) [Volum e fraction]Ordered By: Hermelinda Castillo on 11-18-2022 Hematocrit (Bld) [Volume fraction] 36.4 % 37-47 [facility] Iron measurement (mass/mass) Ordered By: Hermelinda Castillo on 11-18-2022 Iron (Unsp spec) [Mass/Mass] 40 ug/dL 50-170 [facility] Laboratory - Chemistry and C hemistry - challengeOrdered By: Hermelinda Castillo on 11-18-2022 CO2 [Moles/Vol] 27.0 mmol/L 21.0-32.0 [facility] Urea nitrogen/Creatinine [Mass ratio] 11.9 mg/mg 10-20 [facility] Laboratory - Hematology and Cell countsOrdered By: Hermelinda Castillo on 11-18-2022 Erythrocyte distribution width (RBC) [Entitic vol] 51.3 fL 35.1-43.9 [facility] Erythrocyte distribution width (RBC) [Ratio] 14.3 % 11.6-14.6 [facility] Immature granulocytes/100 WBC (Bld) 0.400 % 0.0-0.9 [facility] Comment on above: IG% - Immature Granu locytes (promyelocytes, myelocytes and metamyelocytes) > 1% indicates that a LEFT SHIFT is Present. MCH (RBC) [Entitic mass] 30.9 pg 27.0-32.0 [facility] Nucleated RBC/100 WBC (Bld) [Ratio] 0 % 0-5 [facility] MCHC Auto (RBC) [Mass/Vol]Or dered By: Hermelinda Castillo on 11-18-2022 MCHC (RBC) [Mass/Vol] 31.0 g/dL 32-36 [facility] No Panel InformationOrdered By: Hermelinda Castillo on 11-18-2022 Estimated GFR (MDRD) Amer 142 mL/min >60 [facility] Comment on above: GFR Calc Estimated GFR (MDRD) Non-Af Amer 118 mL/min >60 [facility] Comment on above: Non- GFR Calc Total Iron Binding Capacity 282 ug/dL 250-450 [facility] Platelets bldOrdered By: Jacobo Castillo on 11-18-2022 Platelets (Bld) [#/Vol] 328 10*3/uL 150-450 [facility] Serum or plasma calcium erick urement (mass/volume)Ordered By: Hermelinda Castillo on 11-18-2022 Calcium [Mass/Vol] 8.5 mg/dL 8.5-10.1 [facility] Serum or plasma creatinine m easurement (mass/volume)Ordered By: Hermelinda Castillo on 11-18-2022 Creatinine [Mass/Vol] 0.59 mg/dL 0.55-1.02 [facility] Comment on above: The validity of the calculated GFR & GFRAA in patients over 70 years has not been determined. Clinical correlation is essential. Serum or plasma ferritin chris surement (mass/volume)Ordered By: Hermelinda Castillo on 11-18-2022 Ferritin [Mass/Vol] 143 ng/mL 8-252 [facility] Serum or plasma urea nitroge n measurement (mass/volume)Ordered By: Hermelinda Castillo on 11-18-2022 Urea nitrogen [Mass/Vol] 7 mg/dL 7-18 [facility] Thin prep Papanicolaou smear with manual screeningOrdered By: Hermelinda Castillo on 11-18-2022 Thin prep Papanicolaou smear with manual screening 4 5-15 [facility] Blood hemoglobin measurement (mass/volume)Ordered By: Ramez Villatoro on 11-12-2022 Hemoglobin (Bld) [Mass/Vol] 10.6 g/dL 12.0-15.0 [facility] Absolute lymphocyte countOrd ered By: Ganesh Bell on 11-01-2022 Lymphocytes Auto (Unsp spec) [#/Vol] 2.12 10*3/uL 0.83-4.51 [facility] Basophil percentageOrdered B y: Ganesh Bell on 11-01-2022 Basophil percentage 3.5 mg/dL 2.5-4.9 [facility] Basophils/100 WBC (Bld) 1.0 % 0-[address] [facility] Chloride [Moles/Vol] 110 mmol/L 98-107 [facility] Eosinophils/100 WBC (Bld) 1.6 % 0-5 [facility] Glucose [Mass/Vol] 83 mg/dL 74-106 [facility] Neutrophils (Bld) [#/Vol] 5.3 10*3/uL 2.0-7.7 [facility] Neutrophils/100 WBC (Bld) 64.7 % 47-70 [facility] Potassium [Moles/Vol] 3.0 mmol/L 3.5-5.1 [facility] Sodium [Moles/Vol] 142 mmol/L 136-145 [facility] WBC (Bld) [#/Vol] 8.1 10*3/uL 4.4-11.0 [facility] Blood erythrocytes count (nu mber/volume)Ordered By: Ganesh Bell on 11-01-2022 RBC (Bld) [#/Vol] 2.54 10*6/uL 4.2-5.4 [facility] Blood hemoglobin measurement (mass/volume)Ordered By: Ganesh Bell on 11-01-2022 Hemoglobin (Bld) [Mass/Vol] 7.8 g/dL 12.0-15.0 [facility] Blood lymphocytes/100 leukoc ytesOrdered By: Ganesh Bell on 11-01-2022 Lymphocytes/100 WBC (Bld) 26.0 % 19-41 [facility] Blood monocytes/100 leukocyt esOrdered By: Ganesh Bell on 11-01-2022 Monocytes/100 WBC (Bld) 6.0 % 0-[address] [facility] Blood platelet mean volumeOr dered By: Ganesh Bell on 11-01-2022 Platelet mean volume (Bld) [Entitic vol] 11.0 fL 6.2-12.0 [facility] Determination of erythrocyte mean corpuscular volume (MCV)Ordered By: Ganesh Bell on 11-01-2022 MCV (RBC) [Entitic vol] 92.5 fL 81-[address] [facility] Hematocrit Auto (Bld) [Volum e fraction]Ordered By: Ganesh Bell on 11-01-2022 Hematocrit (Bld) [Volume fraction] 23.5 % 37-47 [facility] Laboratory - Chemistry and C hemistry - challengeOrdered By: Ganesh Bell on 11-01-2022 CO2 [Moles/Vol] 24.0 mmol/L 21.0-32.0 [facility] Magnesium [Mass/Vol] 1.8 mg/dL 1.6-2.6 [facility] Urea nitrogen/Creatinine [Mass ratio] 13.3 mg/mg 10-20 [facility] Laboratory - Hematology and Cell countsOrdered By: Ganesh Bell on 11-01-2022 Erythrocyte distribution width (RBC) [Entitic vol] 42.1 fL 35.1-43.9 [facility] Erythrocyte distribution width (RBC) [Ratio] 12.7 % 11.6-14.6 [facility] Immature granulocytes/100 WBC (Bld) 0.700 % 0.0-0.9 [facility] Comment on above: IG% - Immature Granu locytes (promyelocytes, myelocytes and metamyelocytes) > 1% indicates that a LEFT SHIFT is Present. MCH (RBC) [Entitic mass] 30.7 pg 27.0-32.0 [facility] Nucleated RBC/100 WBC (Bld) [Ratio] 0 % 0-5 [facility] MCHC Auto (RBC) [Mass/Vol]Or dered By: Ganesh Bell on 11-01-2022 MCHC (RBC) [Mass/Vol] 33.2 g/dL 32-36 [facility] No Panel InformationOrdered By: Ganesh Bell on 11-01-2022 Estimated Creatinine Clearance Calc 116.97 ml/min [facility] Estimated GFR (MDRD) Amer 162 mL/min >60 [facility] Comment on above: GFR Calc Estimated GFR (MDRD) Non-Af Amer 134 mL/min >60 [facility] Comment on above: Non- GFR Calc Platelets bldOrdered By: Jasen Bell on 11-01-2022 Platelets (Bld) [#/Vol] 255 10*3/uL 150-450 [facility] Serum or plasma calcium erick urement (mass/volume)Ordered By: Ganesh Bell on 11-01-2022 Calcium [Mass/Vol] 7.9 mg/dL 8.5-10.1 [facility] Serum or plasma creatinine m easurement (mass/volume)Ordered By: Ganesh Bell on 11-01-2022 Creatinine [Mass/Vol] 0.53 mg/dL 0.55-1.02 [facility] Comment on above: The validity of the calculated GFR & GFRAA in patients over 70 years has not been determined. Clinical correlation is essential. Serum or plasma urea nitroge n measurement (mass/volume)Ordered By: Ganesh Bell on 11-01-2022 Urea nitrogen [Mass/Vol] 7 mg/dL 7-18 [facility] Thin prep Papanicolaou smear with manual screeningOrdered By: Ganesh Bell on 11-01-2022 Thin prep Papanicolaou smear with manual screening 8 5-15 [facility] Whole blood hemoglobin A1c/t otal hemoglobin ratio (mass fraction)Ordered By: Ganesh Bell on 10-31-2022 HbA1c (Bld) [Mass fraction] 5.2 % 3.8-5.6 [facility] Comment on above: Normal < 5.7 % Predi abetic 5.7 - 6.4 % Diabetic >or= 6.5 % Please note range changes. Absolute lymphocyte countOrd ered By: Henok Bassett on 10-29-2022 Lymphocytes Auto (Unsp spec) [#/Vol] 4.75 10*3/uL 0.83-4.51 [facility] Basophil percentageOrdered B y: Henok Bassett on 10-29-2022 Lactate [Moles/Vol] 1.0 mmol/L 0.4-2.0 [facility] Basophils/100 WBC (Bld) 1.1 % 0-1 [facility] Bilirubin [Mass/Vol] 0.40 mg/dL 0.20-1.00 [facility] Comment on above: For patients on eltr ombopag therapy, use of Dimension [place] TBIL is not recommended. Chloride [Moles/Vol] 107 mmol/L 98-107 [facility] Eosinophils/100 WBC (Bld) 1.7 % 0-5 [facility] [facility] Glucose [Mass/Vol] 235 mg/dL 74-106 [facility] Comment on above: Glucose result great er than or equal to 200 mg/dLsuggests DIABETES MELLITUS per A.D.A. criteria. Neutrophils (Bld) [#/Vol] 8.4 10*3/uL 2.0-7.7 [facility] Neutrophils/100 WBC (Bld) 58.1 % 47-70 [facility] Potassium [Moles/Vol] 4.2 mmol/L 3.5-5.1 [facility] Protein [Mass/Vol] 6.0 g/dL 6.4-8.2 [facility] Sodium [Moles/Vol] 137 mmol/L 136-145 [facility] WBC (Bld) [#/Vol] 14.4 10*3/uL 4.4-11.0 [facility] Blood erythrocytes count (nu mber/volume)Ordered By: Henok Bassett on 10-29-2022 RBC (Bld) [#/Vol] 3.75 10*6/uL 4.2-5.4 [facility] Blood hemoglobin measurement (mass/volume)Ordered By: Henok Bassett on 10-29-2022 Hemoglobin (Bld) [Mass/Vol] 11.4 g/dL 12.0-15.0 [facility] Blood lymphocytes/100 leukoc ytesOrdered By: Henok Bassett on 10-29-2022 Lymphocytes/100 WBC (Bld) 33.1 % 19-41 [facility] Blood monocytes/100 leukocyt esOrdered By: Henok Bassett on 07-11-2023 Monocytes/100 WBC (Bld) 5.4 % 0-[address] [facility] Blood platelet mean volumeOr dered By: Henok Bassett on 10-29-2022 Platelet mean volume (Bld) [Entitic vol] 10.3 fL 6.2-12.0 [facility] Determination of erythrocyte mean corpuscular volume (MCV)Ordered By: Henok Bassett on 10-29-2022 MCV (RBC) [Entitic vol] 92.0 fL 81-[address] [facility] Hematocrit Auto (Bld) [Volum e fraction]Ordered By: Henok Bassett on 10-29-2022 Hematocrit (Bld) [Volume fraction] 34.5 % 37-47 [facility] INR in Blood by Coagulation assayOrdered By: Henok Bassett on 10-29-2022 INR Coag (Bld) [Relative time] 1.1 {INR} [facility] Laboratory - Chemistry and C hemistry - challengeOrdered By: Henok Bassett on 10-29-2022 ALP [Catalytic activity/Vol] 56 U/L 45-117 [facility] ALT [Catalytic activity/Vol] 18 U/L 13-56 [facility] CO2 [Moles/Vol] 24.0 mmol/L 21.0-32.0 [facility] Globulin (S) [Mass/Vol] 2.9 g/dL 2.2-4.[address] [facility] Lipase [Catalytic activity/Vol] 35 U/L 13-75 [facility] Comment on above: Please note:LIPASE r evised reference range effective 22. New Lipase methodology. Expected to produce lower values than the previous assay method. NEW Reference Range: 13 - 75 U/L Urea nitrogen/Creatinine [Mass ratio] 42.3 mg/mg 10-20 [facility] Laboratory - CoagulationOrde red By: Henok Bassett on 10-29-2022 aPTT Coag (Bld) [Time] 24.7 s 24.1-36.2 [facility] PT Coag (PPP) [Time] 14.0 s 11.7-14.9 [facility] Laboratory - Hematology and Cell countsOrdered By: Henok Bassett on 10-29-2022 Erythrocyte distribution width (RBC) [Entitic vol] 42.3 fL 35.1-43.9 [facility] Erythrocyte distribution width (RBC) [Ratio] 12.4 % 11.6-14.6 [facility] Immature granulocytes/100 WBC (Bld) 0.600 % 0.0-0.9 [facility] Comment on above: IG% - Immature Granu locytes (promyelocytes, myelocytes and metamyelocytes) > 1% indicates that a LEFT SHIFT is Present. MCH (RBC) [Entitic mass] 30.4 pg 27.0-32.0 [facility] Nucleated RBC/100 WBC (Bld) [Ratio] 0 % 0-5 [facility] MCHC Auto (RBC) [Mass/Vol]Or dered By: Henok Bassett on 10-29-2022 MCHC (RBC) [Mass/Vol] 33.0 g/dL 32-36 [facility] No Panel InformationOrdered By: Henok Bassett on 10-29-2022 Estimated Creatinine Clearance Calc 96.86 ml/min [facility] Estimated GFR (MDRD) Amer 129 mL/min >60 [facility] Comment on above: GFR Calc Estimated GFR (MDRD) Non-Af Amer 107 mL/min >60 [facility] Comment on above: Non- GFR Calc Platelets bldOrdered By: Jagjit Bassett on 10-29-2022 Platelets (Bld) [#/Vol] 371 10*3/uL 150-450 [facility] Serum or plasma albumin erick urement (mass/volume)Ordered By: Henok Bassett on 10-29-2022 Albumin [Mass/Vol] 3.1 g/dL 3.2-5.0 [facility] Serum or plasma albumin/glob ulin mass ratioOrdered By: Henok Bassett on 10-29-2022 Albumin/Globulin [Mass ratio] 1.1 {ratio} 0.9-2.4 [facility] Serum or plasma calcium erick urement (mass/volume)Ordered By: Henok Bassett on 10-29-2022 Calcium [Mass/Vol] 8.1 mg/dL 8.5-10.1 [facility] Serum or plasma creatinine m easurement (mass/volume)Ordered By: Henok Bassett on 10-29-2022 Creatinine [Mass/Vol] 0.64 mg/dL 0.55-1.02 [facility] Comment on above: The validity of the calculated GFR & GFRAA in patients over 70 years has not been determined. Clinical correlation is essential. Serum or plasma urea nitroge n measurement (mass/volume)Ordered By: Henok Bassett on 10-29-2022 Urea nitrogen [Mass/Vol] 27 mg/dL 7-18 [facility] Thin prep Papanicolaou smear with manual screeningOrdered By: Henok Bassett on 10-29-2022 Thin prep Papanicolaou smear with manual screening 14 U/L 15-37 [facility] Thin prep Papanicolaou smear with manual screening 6 5-15 [facility] No Panel Informationon 05-16 Influenza Types A,B Rapid (Clinic) Negative [facility] POC SARS CoV-2 Antigen Negative [facility] CNOVon 03-13-2022 CNOV Office Visit (ENSUMN ) -------- CATHERINE BUI ([id number]) 1975 F Date Time Provider Department 03/13/22 11:30 AM EVANGELINA SAEED During your visit today, we recorded the following information about you: Pulse Blood pressure Weight Height 71/minute 142/85 94.3 kg 1.626 m Erica Calderon Ma 03/13/2022 11:10 AM Signed Thank you for choosing the [facility] Department of Endocrinology, Diabetes and Metabolism. Did you know that you need to call 48 hours in advance of your scheduled visit, if you are unable to make your appointment? [facility] [place] thanks you for your commitment, because patients not showing to their appointment results in a lost opportunity for patients to receive [facility] health care at the [facility]. To Cancel an appointment, please choose one of the following: - Call the Appointment Call Center at [phone] - From [employer], Go to Appointments - Cancel Appts If cancelling, consider your need to reschedule to prevent further delays in your care. To Schedule an appointment, please choose one of the following: - Call the Appointment Call Center at [phone] - From [facility], Go to Appointments - Request an Appt Evangelina Saeed MD 03/13/2022 12:25 PM Signed [facility] [place] [facility] Evangelina Saeed M.D. Section of Endocrine Surgery and Advanced Laparoscopic Surgery [address] [place] [address], Desk [place] [id number] ENDOCRINE SURGERY NEW CONSULTATION NAME: Catherine Bui [facility] NO: [id number] : 1975 Surgeon: Dr. Evangelina Saeed REFERRING PROVIDER: Corey Rainey [id number] [place] [address] The patient was referred by the above [...] FLUID, FINE NEEDLE ASPIRATION, 10 OUTSIDE SLIDES, ([id number]), [place], [place], (01-08-21): Benign. Consistent with colloid nodule with cystic changes. B - SLIDE(S) - RIGHT THYROID NODULE FLUID, FINE NEEDLE ASPIRATION, 9 OUTSIDE SLIDES, ([id number]), [place], [place], (05-14-2021): Non-diagnostic aspirate sample. Cyst Contents [...] Pressure symptoms:No. PHYSICAL EXAM: On physical exam, Catherine Vigil Stair is well appearing, alert, and oriented and appears euthyroid. (more content not included)... Normal [facility] US THYROID/PARATHYROID (POC) ENDO USE ONLYon 03-13-2022 [facility] OUTSIDE CYTOLOGY SLIDE REVIE Won 03-07-2022 CASE REPORT Normal [facility] Comment on above: Order Comment: Speci men Type: SLIDE Ordering Facility: [facility] Address: ATTN: [facility], [place] [address] Result Comment: [facility] Cytology Report Case: [id number] Authorizing Provider: Evangelina Saeed MD Collected: 03/07/2022 04:06 PM Ordering Location: [facility] Received: 03/07/2022 04:00 PM Pathologist: Lenny Lopez MD Specimens: A) - SLIDE(S), RIGHT THYROID NODULE FLUID, FINE NEEDLE ASPIRATION, 10 OUTSIDE SLIDES, ([id number]), [place], [place], (01-08-21) B) - SLIDE(S), RIGHT THYROID NODULE FLUID, FINE NEEDLE ASPIRATION, 9 OUTSIDE SLIDES, ([id number]), [place], [place], (05-14-2021) Performed By: #### L [id number] #### [facility] CLIA [id number] [address] [place] [address] STATES [place] CLINICAL HISTORY Thyroid nodule. Normal [facility] Comment on above: Order Comment: Lucio louis Type: SLIDE Ordering Facility: [facility] Address: ATTN: [place] [address] Performed By: #### L [id number] #### [facility] CLIA [id number] [address] [place] [address] [place] DIAGNOSIS COMMENT B. The specimen show predominantly cyst contents with rare groups of bland appearing follicular cells. The number of follicular cell groups is insufficient for further evaluation. Clinical correlation with imaging studies is suggested. Normal [facility] Comment on above: Order Comment: Lucio louis Type: SLIDE Ordering Facility: [facility] Address: ATTN: [place] [address] Performed By: #### L [id number] #### [facility] CLIA [id number] [address] [place] [address] [place] FINAL DIAGNOSIS Normal [facility] Comment on above: Order Comment: Lucio louis Type: SLIDE Ordering Facility: [facility] Address: ATTN: [place] [address] Result Comment: A - SLIDE(S) - RIGHT THYROID NODULE FLUID, FINE NEEDLE ASPIRATION, 10 OUTSIDE SLIDES, ([id number]), [place], [place], (09-20-21): Benign. Consistent with colloid nodule with cystic changes. B - SLIDE(S) - RIGHT THYROID NODULE FLUID, FINE NEEDLE ASPIRATION, 9 OUTSIDE SLIDES, ([id number]), [facility] [place], [place], (05-14-2021): Non-diagnostic aspirate sample. Cyst Contents with rare groups of follicular cells (see comment). Performed By: #### L [id number] #### [facility] CLIA [id number] [address] [place] [address] OF [place] FINAL PERFORMING LAB Normal [facility] Comment on above: Order Comment: Speci men Type: SLIDE Ordering Facility: [facility] Address: ATTN: LABORATORY, [place] [address] Result Comment: Tech nical component, machine installer screening performed at [facility], [address] [place] [address] CLIA# [id number] Diagnostic interpretation performed at [facility], [address] [place], [place] [id number] CLIA# [id number] Sales Manager: Nakul Felipe M.D. Performed By: #### L [id number] #### [facility] CLIA [id number] [address] [place] [address] [place] 03-06-2022 CNPN Telephone (ENDOMN) -------- CATHERINE BUI ([id number]) 1975 F Date Time Provider Department 03/06/22 COREY SPAIN During your visit today, we recorded the following information about you: Nany Garay 03/06/2022 9:08 AM Signed Uploaded labs from [facility] received on 02/21/2022 scanned into chart for review TSH results Nany Garay Shovel Loader Operator II [facility] Corey Rainey MD 03/08/2022 5:24 PM Signed 01/2022: TSH: 0.62 Corey Rainey MD Allergies As of Date: 03/06/2022 Noted Allergy Reaction PENICILLIN G 03/11/2005 2 - Rash Date Reviewed: 02/08/2022 Reviewed by: Corey Rainey MD - Fully Assessed Reason for Visit: Outside Labs Results [437] Prescriptions as of 03/08/2022 - buPROPion XL (WELLBUTRIN XL) 150 mg 24 hr tablet Take 150 mg by mouth twice daily. - topiramate (TOPAMAX) 100 mg tablet Take 100 mg by mouth once daily. - Omeprazole (PRILOSEC) 40 mg capsule Take 40 mg by mouth once daily. - cyclobenzaprine (FLEXERIL) 10 mg tablet Take 10 mg by mouth three times daily as needed. - POLYETHYLENE GLYCOL 3350 (MIRALAX ORAL) Take by mouth once daily. - sumatriptan succinate(IMITREX 50 MG TAB) Use as directed as needed. - INDERAL LA 120 MG 24 HR CAP Take one(1) tablet daily. Problem List As Of Date 03/06/2022 Noted Resolved Uninodular goiter (nontoxic) [E04.1] 04/11/2015 Encounter Status:Closed by COREY SPAIN on 03/08/22 [facility] 03-05-2022 MELISSAN Telephone (IAIN) -------- CATHERINE BUI ([id number]) 1975 F Date Time Provider Department 03/05/22 EVANGELINA SAEED During your visit today, we recorded the following information about you: Yelena Jiang 03/05/2022 4:10 PM Addendum 03/05/2022-INTAKE COMPLETED- US COMPLETED LOCALLY-TSH COMPLETED LOCALLY-REQUESTED SLIDES FROM [facility] AND SURGERY AND IMAGES FROM [facility]. ENDOCRINE SURGERY PATIENT WORKSHEET Initial Call Date: March 05, 2022 Reason for Consult/ Referral: Thyroid Nodule PATIENT DEMOGRAPHICS Name: Catherine Bui CCF#: [id number] : 1975 AGE: [age] year old Contact Numbers: Home: (home) Work: There is no work phone number on file. PATIENT PHYSICIAN INFORMATION Referring Doctor: Address: Phone: Saw Grinder: Address: Phone: PCP: Luciano Nails MD [address] [facility] [address] [place] [address] PAST TREATMENT Office notes: SEE [facility] Medications: NONE THAT APPLY Pre-Visit Testing STUDY/TEST DATE ORDERED/REQUESTED DATE RECEIVED/COMPLETED ENTIRE PANEL TSH COMPLETED LOCALLY-SCANNED INTO [facility] FREE T4 FREE T3 Imaging Reports: SEE [facility] CD of Images: SEE [facility] FNA: yes: 01/09,05/12 FNA Slides: Slides requested from outside facility (Date received: ) Has the patient ever had thyroid or parathyroid surgery before: Yes: Thyroid (Date: ? 2007) Operative Reports: SEE [facility] Pathology Reports: SEE [facility] Allergies As of Date: 03/05/2022 Noted Allergy Reaction PENICILLIN G 03/11/2005 2 - Rash Date Reviewed: 02/08/2022 Reviewed by: Corey Rainey MD - Fully Assessed Reason for Visit: Consult [173] Cmt: FACE SHEET Prescriptions as of 03/05/2022 - buPROPion XL (WELLBUTRIN XL) 150 mg 24 hr tablet Take 150 mg by mouth twice daily. - topiramate (TOPAMAX) 100 mg tablet Take 100 mg by mouth once daily. - Omeprazole (PRILOSEC) 40 mg capsule Take 40 mg by mouth once daily. - cyclobenzaprine (FLEXERIL) 10 mg tablet Take 10 mg by mouth three times daily as needed. - POLYETHYLENE GLYCOL 3350 (MIRALAX ORAL) Take by mouth once daily. - sumatriptan succinate(IMITREX 50 MG TAB) Use as directed as needed. - INDERAL LA 120 MG 24 HR CAP Take one(1) tablet daily. Problem List As Of Date 03/05/2022 Noted Resolved Uninodular goiter (nontoxic) [E04.1] 04/11/2015 Encounter Status:Closed by YELENA JIANG on 03/05/22 Normal [facility] No Panel Informationon 02-13 Thyroid Stimulating Hormone (TSH) 0.62 uIU/mL 0.358-3.74 [facility] Work Phone: [facility]Stacia 12-27-2021 CNPN Telephone (ENDOMN) -------- CATHERINE BUI ([id number]) 1975 F Date Time Provider Department 12/27/21 COREY SPAIN ENDOMAGDA During your visit today, we recorded the following information about you: Allergies As of Date: 12/27/2021 Noted Allergy Reaction PENICILLIN G 03/11/2005 2 - Rash Date Reviewed: 10/31/2016 Reviewed by: Stephane Egan LPN - Fully Assessed Reason for Visit: Appointment [186] Cmt: Called patient and [place] [facility] [place] call [phone] to schedule consultation with Dr. Kristofer rainey per Dr. Saeed also let patient know can schedule appointment herself on mychart Prescriptions as of 12/27/2021 - buPROPion XL (WELLBUTRIN XL) 150 mg 24 hr tablet Take 150 mg by mouth twice daily. - topiramate (TOPAMAX) 100 mg tablet Take 100 mg by mouth once daily. - Omeprazole (PRILOSEC) 40 mg capsule Take 40 mg by mouth once daily. - cyclobenzaprine (FLEXERIL) 10 mg tablet Take 10 mg by mouth three times daily as needed. - POLYETHYLENE GLYCOL 3350 (MIRALAX ORAL) Take by mouth once daily. - sumatriptan succinate(IMITREX 50 MG TAB) Use as directed as needed. - INDERAL LA 120 MG 24 HR CAP Take one(1) tablet daily. Problem List As Of Date 12/27/2021 Noted Resolved Uninodular goiter (nontoxic) [E04.1] 04/11/2015 Encounter Status:Closed by KURT VILLAGOMEZ on 12/27/21 Normal [facility] Basophil percentageon 2021 Chloride [Moles/Vol] 105 mmol/L 98-107 [facility] Work Phone: Glucose [Mass/Vol] 100 mg/dL 74-106 [facility] Work Phone: Comment on above: Fasting Glucose resu lt from 100 to 125 mg/dL suggests IMPAIRED HOMEOSTASIS per A.D.A. criteria. Potassium [Moles/Vol] 4.0 mmol/L 3.5-5.1 [facility] Work Phone: Sodium [Moles/Vol] 138 mmol/L 136-145 [facility] Work Phone: Laboratory - Chemistry and C hemistry - challengeon 12-26-2021 CO2 [Moles/Vol] 27.0 mmol/L 21.0-32.0 [facility] Work Phone: Urea nitrogen/Creatinine [Mass ratio] 17.8 mg/mg 10-20 [facility] Work Phone: No Panel Informationon 12-26 Estimated GFR (MDRD) Amer 195 mL/min >60 [facility] Work Phone: Comment on above: GFR Calc Estimated GFR (MDRD) Non-Af Amer 161 mL/min >60 [facility] Work Phone: Comment on above: Non- GFR Calc Serum or plasma calcium erick urement (mass/volume)on 12-26-2021 Calcium [Mass/Vol] 9.3 mg/dL 8.5-10.1 [facility] Work Phone: Serum or plasma creatinine m easurement (mass/volume)on 12-26-2021 Creatinine [Mass/Vol] 0.45 mg/dL 0.55-1.02 [facility] Work Phone: Comment on above: The validity of the calculated GFR & GFRAA in patients over 70 years has not been determined. Clinical correlation is essential. Serum or plasma urea nitroge n measurement (mass/volume)on 12-26-2021 Urea nitrogen [Mass/Vol] 8 mg/dL 7-18 [facility] Work Phone: Thin prep Papanicolaou smear with manual screeningon 12-26-2021 Thin prep Papanicolaou smear with manual screening 6 5-15 [facility] Work Phone: [phone] Absolute lymphocyte counton 11-21-2021 Lymphocytes Auto (Unsp spec) [#/Vol] 2.18 10*3/uL 0.83-4.51 [facility] Work Phone: Absolute reticulocyte counto n 11-21-2021 Reticulocytes (Bld) [#/Vol] 0.00 10*3/uL 0-5 [facility] Work Phone: Basophil percentageon 2021 Basophil percentage 3.5 mg/dL 2.5-4.9 [facility] Work Phone: Bilirubin [Mass/Vol] 0.40 mg/dL 0.20-1.00 [facility] Work Phone: Comment on above: For patients on eltr ombopag therapy, use of Dimension [place] TBIL is not recommended. Chloride [Moles/Vol] 106 mmol/L 98-107 [facility] Work Phone: Cholesterol [Mass/Vol] 155 mg/dL <200 [facility] Work Phone: Comment on above: <200 mg/dL Desirable 200-240 mg/dL Borderline >240 mg/dL High Risk Glucose [Mass/Vol] 89 mg/dL 74-106 [facility] Work Phone: Neutrophils (Bld) [#/Vol] 4.7 10*3/uL 2.0-7.7 [facility] Work Phone: Potassium [Moles/Vol] 3.8 mmol/L 3.5-5.1 [facility] Work Phone: Protein [Mass/Vol] 7.7 g/dL 6.4-8.2 [facility] Work Phone: Sodium [Moles/Vol] 140 mmol/L 136-145 [facility] Work Phone: Triglyceride [Mass/Vol] 77 mg/dL <[address] [facility] Work Phone: Comment on above: The drugs N-Acetylcy steine and Metamizole may falsely depress this assay.Serum Triglycerides Reference Interval Normal <150 mg/dL Borderline high 150 - 199 mg/dL High 200 - 499 mg/dL Very High > or = 500 mg/dL WBC (Bld) [#/Vol] 7.5 10*3/uL 4.4-11.0 [facility] Work Phone: Bilirubin Test strip Ql (U)o n 11-21-2021 Bilirubin Ql (U) Negative Negative [facility] Work Phone: Blood erythrocytes count (nu mber/volume)on 11-21-2021 RBC (Bld) [#/Vol] 4.82 10*6/uL 4.2-5.4 [facility] Work Phone: Blood hemoglobin measurement (mass/volume)on 11-21-2021 Hemoglobin (Bld) [Mass/Vol] 14.8 g/dL 12.0-15.0 [facility] Work Phone: Blood platelet mean volumeon 11-21-2021 Platelet mean volume (Bld) [Entitic vol] 10.4 fL 6.2-12.0 [facility] Work Phone: Determination of erythrocyte mean corpuscular volume (MCV)on 11-21-2021 MCV (RBC) [Entitic vol] 92.3 fL 81-[address] [facility] Work Phone: Direct bilirubinon Bilirubin.direct [Mass/Vol] 0.13 mg/dL 0.00-0.30 [facility] Work Phone: Hematocrit Auto (Bld) [Volum e fraction]on 11-21-2021 Hematocrit (Bld) [Volume fraction] 44.5 % 37-47 [facility] Work Phone: [phone] Iron measurement (mass/mass) on 11-21-2021 Iron (Unsp spec) [Mass/Mass] 75 ug/dL 50-170 [facility] Work Phone: [phone] Ketones Test strip Ql (U)on 11-21-2021 Ketones Ql (U) Negative Negative [facility] Work Phone: [phone] Laboratory - Chemistry and C hemistry - challengeon 11-21-2021 ALP [Catalytic activity/Vol] 75 U/L 45-117 [facility] Work Phone: ALT [Catalytic activity/Vol] 32 U/L 13-56 [facility] Work Phone: Cholesterol.total/Choles terol in HDL [Mass ratio] 2.70 {ratio} [facility] Work Phone: [phone] CO2 [Moles/Vol] 30.0 mmol/L 21.0-32.0 [facility] Work Phone: [phone] Cobalamin (Vitamin B12) [Mass/Vol] 1316 pg/mL 211-911 [facility] Work Phone: Globulin (S) [Mass/Vol] 3.8 g/dL 2.2-4.[address] [facility] Work Phone: Urea nitrogen/Creatinine [Mass ratio] 17.4 mg/mg 10-20 [facility] Work Phone: [phone] Laboratory - Hematology and Cell countson 11-21-2021 Erythrocyte distribution width (RBC) [Entitic vol] 41.7 fL 35.1-43.9 [facility] Work Phone: Erythrocyte distribution width (RBC) [Ratio] 12.3 % 11.6-14.6 [facility] Work Phone: MCH (RBC) [Entitic mass] 30.7 pg 27.0-32.0 [facility] Work Phone: [phone] Nucleated RBC/100 WBC (Bld) [Ratio] 0 % 0-5 [facility] Work Phone: MCHC Auto (RBC) [Mass/Vol]on 11-21-2021 MCHC (RBC) [Mass/Vol] 33.3 g/dL 32-36 [facility] Work Phone: Nitrite Test strip Ql (U)on 11-21-2021 Nitrite Ql (U) Negative Negative [facility] Work Phone: No Panel Informationon 11-21 Estimated GFR (MDRD) Amer 166 mL/min >60 [facility] Work Phone: Comment on above: GFR Calc Estimated GFR (MDRD) Non-Af Amer 137 mL/min >60 [facility] Work Phone: Comment on above: Non- GFR Calc Total Iron Binding Capacity 312 ug/dL 250-450 [facility] Work Phone: Vitamin D 25-Hydroxy 67.0 ng/mL [facility] Work Phone: Comment on above: Vitamin D 25(OH) Sta tus Range Deficiency <20 ng/mL (50nmol/L) Insufficiency 20 - 30 ng/mL (50 - 75 nmol/L) Sufficiency 30 - 100 ng/mL (75 - 250 nmol/L) Toxicity >100 ng/mL (>250 nmol/L) Platelets bldon 11-21-2021 Platelets (Bld) [#/Vol] 328 10*3/uL 150-450 [facility] Work Phone: Protein Test strip Ql (U)on 11-21-2021 Protein Ql (U) Negative Negative [facility] Work Phone: Segmented neutrophils/100 WB C Auto (Bld)on 11-21-2021 Segmented neutrophils/100 WBC (Bld) 61.8 % 47-70 [facility] Work Phone: Serum or plasma albumin erick urement (mass/volume)on 11-21-2021 Albumin [Mass/Vol] 3.9 g/dL 3.2-5.0 [facility] Work Phone: Serum or plasma albumin/glob ulin mass ratioon 11-21-2021 Albumin/Globulin [Mass ratio] 1.0 {ratio} 0.9-2.4 [facility] Work Phone: Serum or plasma calcium erick urement (mass/volume)on 11-21-2021 Calcium [Mass/Vol] 8.7 mg/dL 8.5-10.1 [facility] Work Phone: Serum or plasma cholesterol in HDL measurement (mass/volume)on 11-21-2021 Cholesterol in HDL [Mass/Vol] 57 mg/dL >40 [facility] Work Phone: Comment on above: The drugs N-Acetylcy steine and Metamizole may falsely depress this assay. Reference Range HDL <40 mg/dL Low HDL Cholesterol HDL >or= 60 mg/dL High HDL Cholesterol Serum or plasma cholesterol in VLDL measurement (mass/volume)on 11-21-2021 Cholesterol in VLDL [Mass/Vol] 15 mg/dL 5-40 [facility] Work Phone: Serum or plasma creatinine m easurement (mass/volume)on 11-21-2021 Creatinine [Mass/Vol] 0.52 mg/dL 0.55-1.02 [facility] Work Phone: Comment on above: The validity of the calculated GFR & GFRAA in patients over 70 years has not been determined. Clinical correlation is essential. Serum or plasma iron saturat ion measurement (mass fraction)on 11-21-2021 Iron saturation [Mass fraction] 24.0 % 15.0-55.0 [facility] Work Phone: Serum or plasma low density lipoprotein (LDL) cholesterol measurement (mass/volume)on 11-21-2021 Cholesterol in LDL [Mass/Vol] 83 mg/dL 0-130 [facility] Work Phone: Serum or plasma urea nitroge n measurement (mass/volume)on 11-21-2021 Urea nitrogen [Mass/Vol] 9 mg/dL 7-18 [facility] Work Phone: Serum or plasma uric acid me asurement (mass/volume)on 11-21-2021 Urate [Mass/Vol] 3.8 mg/dL 2.6-6.0 [facility] Work Phone: Comment on above: The drugs N-Acetylcy steine and Metamizole may falsely depress this assay. Thin prep Papanicolaou smear with manual screeningon 11-21-2021 Thin prep Papanicolaou smear with manual screening 21 U/L 15-37 [facility] Work Phone: Thin prep Papanicolaou smear with manual screening 4 5-15 [facility] Work Phone: Thin prep Papanicolaou smear with manual screening 168 U/L 84-246 [facility] Work Phone: Urine blood detectionon 08- RBC Ql (U) 25 /ul Negative [facility] Work Phone: Urine clarityon 11-21-2021 Clarity (U) Sl. Cloudy Clear [facility] Work Phone: Urine color determinationon 11-21-2021 Color (U) Yellow Yellow [facility] Work Phone: Urine glucose detectionon Glucose Ql (U) Normal mg/dl Normal [facility] Work Phone: Urine leukocyte esterase det ection by dipstickon 11-21-2021 Leukocyte esterase Test strip Ql (U) Negative Negative [facility] Work Phone: Urine pHon 11-21-2021 pH (U) 7.0 [pH] 5.0 - 8.0 [facility] Work Phone: Urine specific gravity measu rementon 11-21-2021 Specific gravity (U) [Rel density] 1.005 1.002-1.030 [facility] Work Phone: Urobilinogen Auto test strip Ql (U)on 11-21-2021 Urobilinogen Ql (U) Normal mg/dl Normal [facility] Work Phone: ZINC [CCL]on 01-25-2019 Zinc 66 ug/dL Normal 55-150 [facility] Comment on above: Result Comment: This test was developed and its performance characteristics determined by [facility]'s [facility] ( [facility]). It has not been cleared or approved by the FDA. [facility] is regulated under CLIA as qualified to perform high complexity testing. This test is used for clinical purposes. It should not be regarded as investigational or for research. [place] [id number] [place] [id number] Marcia Mora M.D. [id number] Performed By: #### 2 74958 #### [address] [address] [place] 01-25-2019 Zinc 66 ug/dL Normal 55-150 [facility] Comment on above: Performed By: #### Z INC #### [facility] [address] [place] [address] Folate, Serumon 01-23-2019 Folate [Mass/Vol] 19.9 ng/mL Normal >4.7 [facility] Comment on above: Performed By: #### S ERFOL #### [facility] Routine Lab [address] [place] [address] Result Comment: [facility] [address] [place], [place] [id number] Marcia Mora M.D. [id number] Performed By: #### 2 70184 #### [address] [address] CBC + DIFFon 01-22-2019 Basophils (Bld) [#/Vol] 0.10 x10EE3/UL Normal 0.00 - 0 .10 [facility] Comment on above: Performed By: #### 2 14590 #### [address] [address] Basophils/100 WBC (Bld) 0.7 % Normal 0.0 - 2.0 [facility] Comment on above: Performed By: #### 2 13664 #### [facility],[address] [place] [address] CBC + DIFF Normal [facility] Comment on above: Result Comment: CBC- COMPLETE BLOOD COUNT Performed By: #### 2 10045 #### [place] [address] Eosinophils (Bld) [#/Vol] 0.30 x10EE3/UL Normal 0.00 - 0.50 [facility] Comment on above: Performed By: #### 2 69480 #### [place] [address] Eosinophils/100 WBC (Bld) 3.6 % Normal 0.0 - 7.0 [facility] Comment on above: Performed By: #### 2 87016 #### [place] [address] Erythrocyte distribution width (RBC) [Ratio] 15.2 % Normal 12.0 - 15.6 [facility] Comment on above: Performed By: #### 2 31662 #### [place] [address] Hematocrit (Bld) [Volume fraction] 34.3 % Normal 34.0 - 46.0 [facility] Comment on above: Performed By: #### 2 44818 #### [place] [address] Hemoglobin (Bld) [Mass/Vol] 11.5 g/dL Low 12.0 - 16.0 [facility] Comment on above: Performed By: #### 2 32039 #### [place] [address] Lymphocytes (Bld) [#/Vol] 2.60 x10EE3/UL Normal 0.80 - 2.80 [facility] Comment on above: Performed By: #### 2 07969 #### [address],[place] [address] Lymphocytes/100 WBC (Bld) 30.5 % Normal 20.0 - 45.0 [facility] Comment on above: Performed By: #### 2 43071 #### [facility],[address] [place] [address] MANUAL DIFF N/A Normal [facility] Comment on above: Performed By: #### 2 31736 #### [facility],[address] [place] [address] 27[address] MCH (RBC) [Entitic mass] 27 pg Normal 27 - 33 [facility] Comment on above: Performed By: #### 2 69123 #### [facility],[address] [place], [place] [id number] MCHC (RBC) [Mass/Vol] 34 X10 3 Normal 32 - 36 [facility] Comment on above: Performed By: #### 2 43022 #### [facility],[address] [place] [address] MCV (RBC) [Entitic vol] 80 fL Normal 80 - 99 [facility] Comment on above: Performed By: #### 2 94572 #### [facility],[address] [place] [address]116 Monocytes (Bld) [#/Vol] 0.60 x10EE3/UL Normal 0.20 - 1 .00 [facility] Comment on above: Performed By: #### 2 26122 #### [facility],[address] [place] [address] 82568 MONOS % 7.2 % Normal 0.0 - 10.0 [facility] Comment on above: Performed By: #### 2 54870 #### [facility],[address] [place] [address]1323 Morphology Vinny (Bld) [Interp] N/A Normal [facility] Comment on above: Performed By: #### 2 17086 #### [facility],[address] [place] [address] Neutrophils (Bld) [#/Vol] 4.90 x10EE3/UL Normal 1.50 - 7.10 [facility] Comment on above: Performed By: #### 2 82975 #### [facility],[address] [place] [address] Neutrophils/100 WBC (Bld) 58.0 % Normal 46.0 - 76.0 [facility] Comment on above: Performed By: #### 2 05579 #### [facility],[address] [place] [address]4769 Platelet mean volume (Bld) [Entitic vol] 9.1 fL Normal 6.6 - 10.5 [facility] Comment on above: Result Comment: AUTO MATED DIFFERENTIAL Performed By: #### 2 08458 #### [address] [address] Platelets (Bld) [#/Vol] 311 x10EE3/UL Normal 150 - 450 [facility] Comment on above: Performed By: #### 2 83924 #### [facility],[address] [place] [address]40[address] RBC (Bld) [#/Vol] 4.32 x 10EE6/UL Normal 4.10 - 5.30 [facility] Comment on above: Performed By: #### 2 19884 #### [address] [address] WBC (Bld) [#/Vol] 8.4 x 10EE3/UL Normal 4.5 - 10.8 [facility] Comment on above: Performed By: #### 2 79197 #### [address] [address] CMP with eGFRon 01-22-2019 Age - Reported 43 years Normal [facility] Comment on above: Performed By: #### 2 17227 #### [address] [address] Albumin [Mass/Vol] 4.1 g/dL Normal 3.4 - 4.8 [facility] Comment on above: Performed By: #### 2 32002 #### [facility],[address] [place] [address] Albumin/Globulin [Mass ratio] 1.3 {ratio} Normal 0.9 - 1.6 [facility] Comment on above: Performed By: #### 2 13721 #### [facility],[address] [place] [address]706 ALK PHOS 56 U/L Normal 38 - 126 [facility] Comment on above: Performed By: #### 2 44640 #### [facility],[address] [place] [address] ALT/SGPT 35 U/L Normal 8 - 35 [facility] Comment on above: Performed By: #### 2 70131 #### [facility],[address] [place] [address] Anion gap [Moles/Vol] 13 mmol/L Normal 10 - 20 [facility] Comment on above: Performed By: #### 2 64692 #### [facility],[address] [place] [address] 34549 AST/SGOT 36 U/L Normal 13 - 39 [facility] Comment on above: Performed By: #### 2 07570 #### [facility],[address] [place] [address] B/C RATIO 20 ratio Normal 0 - 30 [facility] Comment on above: Performed By: #### 2 96638 #### [facility],[address] [place] [address] Bilirubin [Mass/Vol] 0.3 mg/dL Normal 0.0 - 1.5 [facility] Comment on above: Performed By: #### 2 73990 #### [facility],[address] [place] [address] Calcium [Mass/Vol] 9.5 mg/dL Normal 8.6 - 10.2 [facility] Comment on above: Performed By: #### 2 92155 #### [facility],[address] [place] [address] Chloride [Moles/Vol] 103 mmol/L Normal 98 - 107 [facility] Comment on above: Performed By: #### 2 48152 #### [facility],[address] [place] [address]29 CO2 [Moles/Vol] 25.9 mmol/L Normal 21.0 - 31.0 [facility] Comment on above: Performed By: #### 2 91259 #### [facility],[address] [place] [address] Creatinine [Mass/Vol] 0.5 mg/dL Low 0.6 - 1.2 [facility] Comment on above: Performed By: #### 2 37774 #### [facility],[address] [place] [address] GFR/1.73 sq M predicted among non-blacks MDRD (S/P/Bld) [Vol rate/Area] mL/min/{1.73_m2} Normal 60 - 999 [facility] Comment on above: Result Comment: ACCO RDING TO THE NATIONAL KIDNEY DISEASE EDUCATION PROGRAM(NKDE), A NORMAL eGFR IS A VALUE GREATER THAN OR EQUAL TO 60 ML/MIN/1.73 SQ METERS. CHRONIC KIDNEY DISEASE: <60mL/MIN/1.73 SQ METERS KIDNEY FAILURE: <15mL/MIN/1.73 SQ METERS THIS TEST SHOULD ONLY BE USED FOR PATIENTS 18 YEARS OF AGE AND OLDER. Performed By: #### 2 05555 #### [facility],[address] [place] [address] GFR/1.73 sq M predicted among non-blacks MDRD (S/P/Bld) [Vol rate/Area] Normal [facility] Comment on above: Result Comment: COMP REHENSIVE METABOLIC PANEL Performed By: #### 2 24091 #### [facility],[address] [place] [address] Globulin (S) [Mass/Vol] 3.2 g/dL Normal 1.5 - 3.8 [facility] Comment on above: Performed By: #### 2 05303 #### [facility],[address] [place] [address] Glucose [Mass/Vol] 101 mg/dL Normal 74 - 106 [facility] Comment on above: Performed By: #### 2 22973 #### [facility],[address] [place] [address] Potassium [Moles/Vol] 3.0 mmol/L Low 3.5 - 5.1 [facility] Comment on above: Performed By: #### 2 27077 #### [facility],[address] [place] [address] 14899 Protein [Mass/Vol] 7.3 g/dL Normal 6.4 - 8.3 [facility] Comment on above: Performed By: #### 2 07135 #### [facility],[address] [place] [address]226 Sodium [Moles/Vol] 139 mmol/L Normal 136 - 145 [facility] Comment on above: Performed By: #### 2 56921 #### [facility],[address] [place] [address] Urea nitrogen [Mass/Vol] 10 mg/dL Normal 6 - 20 [facility] Comment on above: Performed By: #### 2 62968 #### [facility],[address] [place] [address] 113[address] FERRITINon 01-22-2019 Ferritin [Mass/Vol] 26 ng/mL Normal 10 - 291 [facility] Comment on above: Performed By: #### 2 44248 #### [facility],[address] [place] [address] 266[address] IRONon 01-22-2019 Iron [Mass/Vol] 40 ug/dL Low 50 - 170 [facility] Comment on above: Performed By: #### 2 51238 #### [facility],[address] [place] [address] 266[address] MAGNESIUMon 01-22-2019 Magnesium [Mass/Vol] 2.0 mg/dL Normal 1.6 - 2.6 [facility] Comment on above: Performed By: #### 2 50667 #### [facility],[address] [place] [address] 55931 VITAMIN B-12on 01-22-2019 Cobalamin (Vitamin B12) [Mass/Vol] 1018 pg/mL High 180 - 914 [facility] Comment on above: Performed By: #### 2 65080 #### [facility],[address] [place] [address] 588[address] Basic Metabolic Panelon 12-20 Anion gap [Moles/Vol] 9 Normal [facility] Comment on above: Performed By: #### B GLU #### [facility] [address] [place], [place] Calcium [Mass/Vol] 8.2 mg/dL Low 8.4-10.4 [facility] Comment on above: Performed By: #### B GLU #### [facility] [address] [place], [place] CO2 [Moles/Vol] 25 mmol/L Normal 22-30 [facility] Comment on above: Performed By: #### B GLU #### [facility] [address] [place], [place] Glucose [Mass/Vol] 89 mg/dL Normal 70-100 [facility] Comment on above: Performed By: #### B GLU #### [facility] [address] [place], [place] Urea nitrogen [Mass/Vol] 14 mg/dL Normal 7-20 [facility] Comment on above: Performed By: #### B GLU #### [place] [address] [address] [place], [place] Creatinine [Mass/Vol] 0.74 mg/dL Normal 0.52-1.25 [facility] Comment on above: Performed By: #### B GLU #### [place] [address] [address] [place], [place] GFR/1.73 sq M predicted among blacks MDRD (S/P/Bld) [Vol rate/Area] mL/min/{1.73_m2} Normal >60 [facility] Comment on above: Performed By: #### B GLU #### [place] [address] [address] [place], [place] GFR/1.73 sq M predicted among non-blacks MDRD (S/P/Bld) [Vol rate/Area] mL/min/{1.73_m2} Normal >60 [facility] Comment on above: Result Comment: Sour ce- MDRD equation with creatinine calibration to IDMS(NKDEP) eGFR not recommended for drug dose adjustment Performed By: #### B GLU #### [place] [address] [address] [place], [place] Chloride [Moles/Vol] 102 mmol/L Normal 98-107 [facility] Comment on above: Performed By: #### B GLU #### [place] [address] [address] [place], [place] Potassium [Moles/Vol] 3.7 mmol/L Normal 3.5-5.1 [facility] Comment on above: Performed By: #### B GLU #### [place] [address] [address] [place], [place] Sodium [Moles/Vol] 137 mmol/L Normal 135-145 [facility] Comment on above: Performed By: #### B GLU #### [place] [address] [address] [place], [place] Basic Metabolic Panel w/ Ref felicitas to MGon 12-30-2018 Anion gap [Moles/Vol] 9 mmol/L [facility], [place] Calcium [Mass/Vol] 8.2 mg/dL Low 8.4 - 10. 4 mg/dL [facility], [place] Chloride [Moles/Vol] 102 mmol/L 98 - 10 7 mmol/L [facility], [place] CO2 [Moles/Vol] 25 mmol/L 22 - 30 mmol/L [place], [place] Creatinine [Mass/Vol] 0.74 mg/dL 0.52 - 1.25 mg/dL [place] EGFR IF NonAfrican [place]in >60.0 >60 mL/min [place] Comment on above: Source- MDRD equatio n with creatinine calibration to IDMS(NKDEP) eGFR not recommended for drug dose adjustment GFR/1.73 sq M predicted among blacks MDRD (S/P/Bld) [Vol rate/Area] mL/min/{1.73_m2} >60 mL/min [place] Glucose [Mass/Vol] 89 mg/dL 70 - 100 mg/dL [place] Interpretation and review of laboratory results Abnormal [place] Potassium [Moles/Vol] 3.7 mmol/L 3.5 - 5.1 mmol/L [place] Sodium [Moles/Vol] 137 mmol/L 135 - 145 mmol/L [place] Urea nitrogen [Mass/Vol] 14 mg/dL 7 - 20 mg/d L [place] Test Performed by [facility], [address] [place] [id number] [place] [address] CBC Auto Differentialon 12-20 Absolute Baso # 0.1 10*3/uL 0 - 0.2 10*3/uL [place] Absolute Neut # 6.8 10*3/uL 1.8 - 7 10*3/uL [place] Basophils/100 WBC (Bld) 0.9 % 0 - 2 % [place] Eosinophils (Bld) [#/Vol] 0.2 10*3/uL 0 - 0.5 10*3/uL [place] Eosinophils/100 WBC (Bld) 2.2 % 1 - 6 % [place] Erythrocyte distribution width (RBC) [Ratio] 15.5 % High 11.5 - 14.5 % [place] Granulocytes/100 WBC (Bld) 67.8 % 40 - 80 % [place] Hematocrit (Bld) [Volume fraction] 31.3 % Low 35 - 47 % [place] Hemoglobin (Bld) [Mass/Vol] 10.6 g/dL Low 11.7 - 16 g/dL [place] Interpretation and review of laboratory results Abnormal [place] Lymphocytes (Bld) [#/Vol] 2.2 10*3/uL 1 - 4.3 10*3/uL [place] Lymphocytes/100 WBC (Bld) 21.6 % 20 - 40 % [place] MCH (RBC) [Entitic mass] 27.6 pg 26 - 34 pg [place] MCHC (RBC) [Mass/Vol] 33.8 % 32 - 36 % [place], [place] MCV (RBC) [Entitic vol] 81.8 fL 79 - 98 fL [place], [place] Monocytes (Bld) [#/Vol] 0.8 10*3/uL 0 - 0.8 10*3/uL [place] Monocytes/100 WBC (Bld) 7.5 % 2 - 10 % [place] Platelet mean volume (Bld) [Entitic vol] 8.7 fL 7.4 - 10.4 fL [place] Platelets (Bld) [#/Vol] 230 10*3/uL 140 - 440 10*3/uL [place] RBC (Bld) [#/Vol] 3.83 10*6/uL 3.8 - 5.2 10*6/uL [place] WBC (Bld) [#/Vol] 10.0 10*3/uL 3.6 - 10.7 10*3/uL [place] Test Performed by [facility], [address] [place] [address] [place], [place] Glucose,Bedsideon 12-30-2018 Glucose [Mass/Vol] 104 mg/dL High 70-100 [facility] Comment on above: Result Comment: Test performed by glucose meter. Results may be 10%-15% lower than serum/plasma values. (CLIA ID [id number]) Performed By: #### B GLU ####[facility] [place], [place] Glucose [Mass/Vol] 91 mg/dL Normal 70-100 [facility] Comment on above: Result Comment: Test performed by glucose meter. Results may be 10%-15% lower than serum/plasma values. (CLIA ID [id number]) Performed By: #### B GLU ####[place] [id number] [place], [place] Glucose [Mass/Vol] 95 mg/dL Normal 70-100 [facility] Comment on above: Result Comment: Test performed by glucose meter. Results may be 10%-15% lower than serum/plasma values. (CLIA ID [id number]) Performed By: #### B GLU #### [place] [address] [address] [place], [place] Hemogram w/ Autodiffon 12-30 Abs Baso Cnt 0.1 10*3/uL Normal 0.0-0.2 [facility] Comment on above: Performed By: #### B GLU #### [place] [address] [address] [place], [place] Abs Neutrophile Cnt 6.8 10*3/uL Normal 1.8-7.0 [facility] Comment on above: Performed By: #### B GLU #### [place] [address] [address] [place], [place] Basophils/100 WBC (Bld) 0.9 % Normal 0.0-2.0 [facility] Comment on above: Performed By: #### B GLU #### [place] [address] [address] [place], [place] Eosinophils (Bld) [#/Vol] 0.2 10*3/uL Normal 0.0-0.5 [facility] Comment on above: Performed By: #### B GLU #### [place] [address] [address] [place], [place] Eosinophils/100 WBC (Bld) 2.2 % Normal 1.0-6.0 [facility] Comment on above: Performed By: #### B GLU #### [place] [address] [address] [place], [place] Erythrocyte distribution width (RBC) [Ratio] 15.5 % High 11.5-14.5 [facility] Comment on above: Performed By: #### B GLU #### [place] [address] [address] [place], [place] Granulocytes/100 WBC (Bld) 67.8 % Normal 40.0-80.0 [facility] Comment on above: Performed By: #### B GLU #### [place] [address] [address] [place], [place] Hematocrit (Bld) [Volume fraction] 31.3 % Low 35.0-47.0 [facility] Comment on above: Performed By: #### B GLU #### [place] [address] [address] [place], [place] Hemoglobin (Bld) [Mass/Vol] 10.6 g/dL Low 11.7-16.0 [facility] Comment on above: Performed By: #### B GLU #### [place] [address] [address] [place], [place] Lymphocytes (Bld) [#/Vol] 2.2 10*3/uL Normal 1.0-4.3 [facility] Comment on above: Performed By: #### B GLU #### [place] [address] [address] [place], [place] Lymphocytes/100 WBC (Bld) 21.6 % Normal 20.0-40.0 [facility] Comment on above: Performed By: #### B GLU #### [place] [address] [address] [place], [place] MCH (RBC) [Entitic mass] 27.6 pg Normal 26.0-34.0 [facility] Comment on above: Performed By: #### B GLU #### [place] [address] [address] [place], [place] MCHC (RBC) [Mass/Vol] 33.8 % Normal 32.0-36.0 [facility] Comment on above: Performed By: #### B GLU #### [place] [address] [address] [place], [place] MCV (RBC) [Entitic vol] 81.8 fL Normal 79.0-98.0 [facility] Comment on above: Performed By: #### B GLU #### [place] [address] [address] [place], [place] Monocytes (Bld) [#/Vol] 0.8 10*3/uL Normal 0.0-0.8 [facility] Comment on above: Performed By: #### B GLU #### [place] [address] [address] [place], [place] Monocytes/100 WBC (Bld) 7.5 % Normal 2.0-10.0 [facility] Comment on above: Performed By: #### B GLU #### [place] [address] [address] [place], [place] Platelet mean volume (Bld) [Entitic vol] 8.7 fL Normal 7.4-10.4 [facility] Comment on above: Performed By: #### B GLU #### [place] [address] [address] [place], [place] Platelets (Bld) [#/Vol] 230 10*3/uL Normal 140-440 [facility] Comment on above: Performed By: #### B GLU #### [place] [address] [address] [place], [place] RBC (Bld) [#/Vol] 3.83 10*6/uL Normal 3.80-5.20 [facility] Comment on above: Performed By: #### B GLU #### [place] [address] [address] [place], [place] WBC (Bld) [#/Vol] 10.0 10*3/uL Normal 3.6-10.7 [facility] Comment on above: Performed By: #### B GLU #### [place] [address] [address] [place], [place] POCT Glucoseon 12-30-2018 Glucose [Mass/Vol] 104 mg/dL High 70 - 100 mg/dL [facility] [place], [place] Comment on above: Test performed by gl ucose meter. Results may be 10%-15% lower than serum/plasma values. (CLIA ID [id number]) Interpretation and review of laboratory results Abnormal [place], [place] Test Performed by [facility], [address] [place] [address] [place], [place] Glucose [Mass/Vol] 91 mg/dL 70 - 100 mg/dL [place] Comment on above: Test performed by gl ucose meter. Results may be 10%-15% lower than serum/plasma values. (CLIA ID [id number]) Test Performed by [facility], [address] [place], [place] [id number] [place] [address] Glucose [Mass/Vol] 95 mg/dL 70 - 100 mg/dL [place], [place] Comment on above: Test performed by gl ucose meter. Results may be 10%-15% lower than serum/plasma values. (CLIA ID [id number]) Test Performed by [facility], [facility] [place], [place] [address] [place] [address] Basic Metabolic Panelon 12-20 Anion gap [Moles/Vol] 8 Normal [facility] Comment on above: Performed By: #### B GLU #### [place] [address] [place] [address] Calcium [Mass/Vol] 8.4 mg/dL Normal 8.4-10.4 [facility] Comment on above: Performed By: #### B GLU #### [place] [address] [place] [address] CO2 [Moles/Vol] 24 mmol/L Normal 22-30 [facility] Comment on above: Performed By: #### B GLU #### [place] [address] [place] [address] Glucose [Mass/Vol] 127 mg/dL High 70-100 [facility] Comment on above: Performed By: #### B GLU #### [place] [address] [place] [address] Urea nitrogen [Mass/Vol] 13 mg/dL Normal 7-20 [facility] Comment on above: Performed By: #### B GLU #### [place] [address] [place] [address] Creatinine [Mass/Vol] 0.70 mg/dL Normal 0.52-1.25 [facility] Comment on above: Performed By: #### B GLU #### [place] [address] [address] [place], [place] GFR/1.73 sq M predicted among blacks MDRD (S/P/Bld) [Vol rate/Area] mL/min/{1.73_m2} Normal >60 [facility] Comment on above: Performed By: #### B GLU #### [place] [address] [address] [place], [place] GFR/1.73 sq M predicted among non-blacks MDRD (S/P/Bld) [Vol rate/Area] mL/min/{1.73_m2} Normal >60 [facility] Comment on above: Result Comment: Sour ce- MDRD equation with creatinine calibration to IDMS(NKDEP) eGFR not recommended for drug dose adjustment Performed By: #### B GLU #### [place] [address] [address] [place], [place] Potassium [Moles/Vol] 4.4 mmol/L Normal 3.5-5.1 [facility] Comment on above: Performed By: #### B GLU #### [address] Sodium [Moles/Vol] 137 mmol/L Normal 135-145 [facility] Comment on above: Performed By: #### B GLU #### [place] [address] [address] [place], [place] Chloride [Moles/Vol] 104 mmol/L Normal 98-107 [facility] Comment on above: Performed By: #### B GLU #### [address] Basic Metabolic Panel w/ Ref felicitas to MGon 12-29-2018 Anion gap [Moles/Vol] 8 mmol/L [facility], [place] Calcium [Mass/Vol] 8.4 mg/dL 8.4 - 10. 4 mg/dL [facility], [place] Chloride [Moles/Vol] 104 mmol/L 98 - 10 7 mmol/L [place], [place] CO2 [Moles/Vol] 24 mmol/L 22 - 30 mmol/L [place] Creatinine [Mass/Vol] 0.7 mg/dL 0.52 - 1.25 mg/dL [place] EGFR IF NonAfrican [place]enegrin >60.0 >60 mL/min [place], [place] Comment on above: Source- MDRD equatio n with creatinine calibration to IDMS(NKDEP) eGFR not recommended for drug dose adjustment GFR/1.73 sq M predicted among blacks MDRD (S/P/Bld) [Vol rate/Area] mL/min/{1.73_m2} >60 mL/min [place], [place] Glucose [Mass/Vol] 127 mg/dL High 70 - 100 mg/dL [place] Interpretation and review of laboratory results Abnormal [place] Potassium [Moles/Vol] 4.4 mmol/L 3.5 - 5.1 mmol/L [place] Sodium [Moles/Vol] 137 mmol/L 135 - 145 mmol/L [place] Urea nitrogen [Mass/Vol] 13 mg/dL 7 - 20 mg/d L [place], [place] CBC auto differentialon 12-20 Absolute Baso # 0.1 10*3/uL 0 - 0.2 10*3/uL [place] Absolute Neut # 13.1 10*3/uL High 1.8 - 7 10*3/uL [place] Basophils/100 WBC (Bld) 0.4 % 0 - 2 % [place] Eosinophils (Bld) [#/Vol] 0.0 10*3/uL 0 - 0.5 10*3/uL [place] Eosinophils/100 WBC (Bld) 0.1 % Low 1 - 6 % [place] Erythrocyte distribution width (RBC) [Ratio] 15.4 % High 11.5 - 14.5 % [place] Granulocytes/100 WBC (Bld) 83.3 % High 40 - 80 % [place] Hematocrit (Bld) [Volume fraction] 32.7 % Low 35 - 47 % [place] Hemoglobin (Bld) [Mass/Vol] 11.1 g/dL Low 11.7 - 16 g/dL [place] Interpretation and review of laboratory results Abnormal [place] Lymphocytes (Bld) [#/Vol] 1.6 10*3/uL 1 - 4.3 10*3/uL [place] Lymphocytes/100 WBC (Bld) 9.9 % Low 20 - 40 % [place] MCH (RBC) [Entitic mass] 27.6 pg 26 - 34 pg [place] MCHC (RBC) [Mass/Vol] 34.0 % 32 - 36 % [place] MCV (RBC) [Entitic vol] 81.3 fL 79 - 98 fL [place], [place] Monocytes (Bld) [#/Vol] 1.0 10*3/uL High 0 - 0.8 10*3/uL [place], [place] Monocytes/100 WBC (Bld) 6.3 % 2 - 10 % [place] Platelet mean volume (Bld) [Entitic vol] 8.7 fL 7.4 - 10.4 fL [place] Platelets (Bld) [#/Vol] 254 10*3/uL 140 - 440 10*3/uL [place] RBC (Bld) [#/Vol] 4.02 10*6/uL 3.8 - 5.2 10*6/uL [place] WBC (Bld) [#/Vol] 15.8 10*3/uL High 3.6 - 10.7 10*3/uL [place] Test Performed by [facility], [address] [place] [address] [place], [place] UGIon 12-29-2018 Solis, Hamleta Incoming Radiology Results From [facility] - 12/29/2018 10:16 AM EDT Patient Name: CATHERINE BUI ---Fluoroscopy--- Exam Date/Time 12/29/2018 07:52:14 EDT Exam RF UGI w/o KUB & w/ or w/o Delay Flm Ordering Physician Jennifer RODRIGUEZ, ALEN KITCHEN Accession Number [id number] [facility]4 Codes 53777 () Reason For Exam s/p LRYGB Report Clinical indication: S/P gastric bypass, postop, day one. Gastrografin was administered orally to the patient in upright position. 21 2 minutes of fluoroscopic time was used for the examination. 27 fluoroscopic spot images were obtained. The esophagus is normal in course and caliber without evidence of perforation or extravasation. The gastrojejunostomy is patent without evidence of extravasation or obstruction. The contrast empties readily from the gastric remnant into the jejunum. The jejunal jejunostomy is identified and shows free flow of contrast beyond the metallic clips that identified the anastomosis. There is no evidence of obstruction. Impression: Postop changes consistent with gastric bypass surgery. No evidence of extravasation or obstruction. Report Dictated on --- Final --- Dictated: 12/29/2018 10:14 am Dictating Physician: MD HUTCHINS RISA Signed Date and Time: 12/29/2018 10:15 am Signed by: MD HUTCHINS RISA Transcribed Date and Time: 12/29/2018 10:14 [place] Patient Name: CATHERINE BUI ---Fluoroscopy--- Exam Date/Time 12/29/2018 07:52:14 EDT Exam RF UGI w/o KUB & w/ or w/o Delay [facility] Ordering Physician Jennifer RODRIGUEZ, ALEN KITCHEN Accession Number [id number] [facility]4 Codes 65557 () Reason For Exam s/p LRYGB Report Clinical indication: S/P gastric bypass, postop, day one. Gastrografin was administered orally to the patient in upright position. 21 2 minutes of fluoroscopic time was used for the examination. 27 fluoroscopic spot images were obtained. The esophagus is normal in course and caliber without evidence of perforation or extravasation. The gastrojejunostomy is patent without evidence of extravasation or obstruction. The contrast empties readily from the gastric remnant into the jejunum. The jejunal jejunostomy is identified and shows free flow of contrast beyond the metallic clips that identified the anastomosis. There is no evidence of obstruction. Impression: Postop changes consistent with gastric bypass surgery. No evidence of extravasation or obstruction. Report Dictated on --- Final --- Dictated: 12/29/2018 10:14 am Dictating Physician: MD HUTCHINS RISA Signed Date and Time: 12/29/2018 10:15 am Signed by: MD HUTCHINS RISA Transcribed Date and Time: 12/29/2018 10:14 [facility] [place], [place] Glucose,Bedsideon 12-29-2018 Glucose [Mass/Vol] 99 mg/dL Normal 70-100 [facility] Comment on above: Result Comment: Test performed by glucose meter. Results may be 10%-15% lower than serum/plasma values. (CLIA ID [id number]) Performed By: #### B GLU #### [facility] [address] [place] [address] Glucose [Mass/Vol] 100 mg/dL Normal 70-100 [facility] Comment on above: Result Comment: Test performed by glucose meter. Results may be 10%-15% lower than serum/plasma values. (CLIA ID [id number]) Performed By: #### B GLU #### [facility] [address] [place] [address] Glucose [Mass/Vol] 118 mg/dL High 70-100 [facility] Comment on above: Result Comment: Test performed by glucose meter. Results may be 10%-15% lower than serum/plasma values. (CLIA ID [id number]) Performed By: #### B GLU #### [facility] [address] [place] [address] Glucose [Mass/Vol] 115 mg/dL High 70-100 [facility] Comment on above: Result Comment: Test performed by glucose meter. Results may be 10%-15% lower than serum/plasma values. (CLIA ID [id number]) Performed By: #### B GLU #### [facility] [address] [place] [address] Hemogram w/ Autodiffon 12-29 Abs Baso Cnt 0.1 10*3/uL Normal 0.0-0.2 [facility] Comment on above: Performed By: #### H EMDF, MG3, BMP3M #### [place] [address] [address] [place], [place] Abs Neutrophile Cnt 13.1 10*3/uL High 1.8-7.0 [facility] Comment on above: Performed By: #### H EMDF, MG3, BMP3M #### [place] [address] [place], [place] Basophils/100 WBC (Bld) 0.4 % Normal 0.0-2.0 [facility] Comment on above: Performed By: #### H EMDF, MG3, BMP3M #### [place] [address] [address] [place], [place] Eosinophils (Bld) [#/Vol] 0.0 10*3/uL Normal 0.0-0.5 [facility] Comment on above: Performed By: #### H EMDF, MG3, BMP3M #### [address] Eosinophils/100 WBC (Bld) 0.1 % Low 1.0-6.0 [facility] Comment on above: Performed By: #### H EMDF, MG3, BMP3M #### [address] Erythrocyte distribution width (RBC) [Ratio] 15.4 % High 11.5-14.5 [facility] Comment on above: Performed By: #### H EMDF, MG3, BMP3M #### [place] [address] [address] [place] Granulocytes/100 WBC (Bld) 83.3 % High 40.0-80.0 [facility] Comment on above: Performed By: #### H EMDF, MG3, BMP3M #### [address] Hematocrit (Bld) [Volume fraction] 32.7 % Low 35.0-47.0 [facility] Comment on above: Performed By: #### H EMDF, MG3, BMP3M #### [place] [address] [address] [place] Hemoglobin (Bld) [Mass/Vol] 11.1 g/dL Low 11.7-16.0 [facility] Comment on above: Performed By: #### H EMDF, MG3, BMP3M #### [place] [address] [place], [place] Lymphocytes (Bld) [#/Vol] 1.6 10*3/uL Normal 1.0-4.3 [facility] Comment on above: Performed By: #### H EMDF, MG3, BMP3M #### [address] Lymphocytes/100 WBC (Bld) 9.9 % Low 20.0-40.0 [facility] Comment on above: Performed By: #### H EMDF, MG3, BMP3M #### [address] MCH (RBC) [Entitic mass] 27.6 pg Normal 26.0-34.0 [facility] Comment on above: Performed By: #### H EMDF, MG3, BMP3M #### [address] MCHC (RBC) [Mass/Vol] 34.0 % Normal 32.0-36.0 [facility] Comment on above: Performed By: #### H EMDF, MG3, BMP3M #### [address] MCV (RBC) [Entitic vol] 81.3 fL Normal 79.0-98.0 [facility] Comment on above: Performed By: #### H EMDF, MG3, BMP3M #### [address] Monocytes (Bld) [#/Vol] 1.0 10*3/uL High 0.0-0.8 [facility] Comment on above: Performed By: #### H EMDF, MG3, BMP3M #### [place] [address] [place], [place] Monocytes/100 WBC (Bld) 6.3 % Normal 2.0-10.0 [facility] Comment on above: Performed By: #### H EMDF, MG3, BMP3M #### [address] Platelet mean volume (Bld) [Entitic vol] 8.7 fL Normal 7.4-10.4 [facility] Comment on above: Performed By: #### H EMDF, MG3, BMP3M #### [address] Platelets (Bld) [#/Vol] 254 10*3/uL Normal 140-440 [facility] Comment on above: Performed By: #### H EMDF, MG3, BMP3M #### [address] RBC (Bld) [#/Vol] 4.02 10*6/uL Normal 3.80-5.20 [facility] Comment on above: Performed By: #### H EMDF, MG3, BMP3M #### [address] WBC (Bld) [#/Vol] 15.8 10*3/uL High 3.6-10.7 [facility] Comment on above: Performed By: #### H EMDF, MG3, BMP3M #### [address] Magnesiumon 12-29-2018 Magnesium [Mass/Vol] 2.2 mg/dL Normal 1.6-2.3 [facility] Comment on above: Performed By: #### H EMDF, MG3, BMP3M #### [address] Magnesium [Mass/Vol] 2.2 mg/dL 1.6 - 2 .3 mg/dL [facility], [place] Otheron 12-29-2018 Test Performed by [facility], [facility] [place] [address] [facility], [place] POCT Glucoseon 12-29-2018 Glucose [Mass/Vol] 99 mg/dL 70 - 100 mg/dL [place] Comment on above: Test performed by gl ucose meter. Results may be 10%-15% lower than serum/plasma values. (CLIA ID [id number]) Test Performed by [facility], [facility] [place] [address] [place], [place] Glucose [Mass/Vol] 100 mg/dL 70 - 100 mg/dL [place] Comment on above: Test performed by gl ucose meter. Results may be 10%-15% lower than serum/plasma values. (CLIA ID [id number]) Test Performed by [facility], [facility] [address] [place], [place] [address] [place] [address] Glucose [Mass/Vol] 118 mg/dL High 70 - 100 mg/dL [place] Comment on above: Test performed by gl ucose meter. Results may be 10%-15% lower than serum/plasma values. (CLIA ID [id number]) Interpretation and review of laboratory results Abnormal [facility], [place] Test Performed by [facility], [facility] [place] [address] [place] Glucose [Mass/Vol] 115 mg/dL High 70 - 100 mg/dL [place] Comment on above: Test performed by gl ucose meter. Results may be 10%-15% lower than serum/plasma values. (CLIA ID [id number]) Interpretation and review of laboratory results Abnormal [place] Test Performed by [facility], [address] [place] [address] [place] RF UGI w/o KUB w/ or w/o Del ay Flmon 12-29-2018 RF UGI w/o KUB w/ or w/o Delay Flm Patient Name: CATHERINE BUI Fluoroscopy Exam Date/Time 12/29/2018 07:52:14 EDT Exam RF UGI w/o KUB and w/ or w/o Delay Flm Ordering Physician Jennifer RODRIGUEZ JUSTUS VARGHESE Accession Number [id number] [facility] Codes 84257 () Reason For Exam s/p LRYGB Report Clinical indication: S/P gastric bypass, postop, day one. Gastrografin was administered orally to the patient in upright position. 21 2 minutes of fluoroscopic time was used for the examination. 27 fluoroscopic spot images were obtained. The esophagus is normal in course and caliber without evidence of perforation or extravasation. The gastrojejunostomy is patent without evidence of extravasation or obstruction. The contrast empties readily from the gastric remnant into the jejunum. The jejunal jejunostomy is identified and shows free flow of contrast beyond the metallic clips that identified the anastomosis. There is no evidence of obstruction. Impression: Postop changes consistent with gastric bypass surgery. No evidence of extravasation or obstruction. Report Dictated on Final Dictated: 12/29/2018 10:14 am Dictating Physician: MD HUTCHINS RISA Signed Date and Time: 12/29/2018 10:15 am Signed by: MD HUTCHINS RISA Transcribed Date and Time: 12/29/2018 10:14 Normal [facility] Surgical Pathologyon 019 Sodium [Moles/Vol] SEE BELOW [place] [id number] [facility] DEPART[facility] PATHOLOGY AND LABORATORY MEDICINE [address] [place] [address] FINAL SURGICAL PATHOLOGY REPORT NAME: AIRAMALBERTOCATHERINE Yaritza : 1975 43 Y F BILLING NO.: [id number] LOCATION: [id number] PROCEDURE 12/28/2018 DATE: SURGEON: JOHN ROMERO M.D. RECEIVED 12/28/2018 DATE: ATTENDING: JOHN ROMERO M.D. 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 COMMENT: Iron stain is negative for increased storage iron. Trichrome stain shows focal mild perigranular fibrosis suggestive of resolving steatohepatitis. AHD/AHD Signature> MARY OLVERA M.D. CLINICAL INFORMATION: Morbid obesity SPECIMEN: LIVER NEEDLE OR WEDGE BIOPSY, MEDICAL GROSS DESCRIPTION: Liver biopsy Received in formalin are three red-brown, shaggy tissue segments measuring 0.7 to 1 cm. Submitted in toto. (3 ns, 1) JCK/KMS1 Disclaimer: The following statement applies to all immunohistochemistry, in situ hybridization, molecular studies, and immunofluorescence testing. The use of one or more reagents in the above tests is regulated as an analyte specific reagent (ASR). These tests were developed and their performance characteristics determined by the clinical laboratories of [facility]. They have not been cleared by the [place] Food and Drug Administration (FDA). The FDA has determined that such clearance or approval is not necessary. All the above immunostains were performed on paraffin embedded tissue. Appropriate positive and negative controls (where applicable) were run in parallel with the patient's specimen; these controls showed expected staining pattern, with acceptable intensity of staining. Immunohistochemical assays have not been validated on decalcified tissues. Results should be interpreted with caution given the raised possibility of false negativity on decalcified specimens. Professional Performing Location: [facility] [address] [place] [address]. DEPARTMENT OF PATHOLOGY AND LABORATORY MEDICINE THICKET, [place] [facility], [place] Basic Metabolic Panelon 09-0 Anion gap [Moles/Vol] 14 Normal [facility] Comment on above: Performed By: #### H GHCT, BMP3M #### [place] [address] [address] [place], [place] Calcium [Mass/Vol] 8.8 mg/dL Normal 8.4-10.4 [facility] Comment on above: Performed By: #### H GHCT, BMP3M #### [place] [address] [place], [place] CO2 [Moles/Vol] 22 mmol/L Normal 22-30 [facility] Comment on above: Performed By: #### H GHCT, BMP3M #### [place] [address] [place], [place] Glucose [Mass/Vol] 208 mg/dL High 70-100 [facility] Comment on above: Performed By: #### H GHCT, BMP3M #### [place] [address] [place], [place] Urea nitrogen [Mass/Vol] 9 mg/dL Normal 7-20 [facility] Comment on above: Performed By: #### H GHCT, BMP3M #### [place] [address] [place], [place] Creatinine [Mass/Vol] 0.56 mg/dL Normal 0.52-1.25 [facility] Comment on above: Performed By: #### H GHCT, BMP3M #### [place] [address] [place], [place] GFR/1.73 sq M predicted among blacks MDRD (S/P/Bld) [Vol rate/Area] mL/min/{1.73_m2} Normal >60 [facility] Comment on above: Performed By: #### H GHCT, BMP3M #### [place] [address] [place], [place] GFR/1.73 sq M predicted among non-blacks MDRD (S/P/Bld) [Vol rate/Area] mL/min/{1.73_m2} Normal >60 [facility] Comment on above: Result Comment: Sour ce- MDRD equation with creatinine calibration to IDMS(NKDEP) eGFR not recommended for drug dose adjustment Performed By: #### H GHCT, BMP3M #### [facility] [address] [place], [place] Chloride [Moles/Vol] 100 mmol/L Normal 98-107 [facility] Comment on above: Performed By: #### H GHCT, BMP3M #### [address] Potassium [Moles/Vol] 4.6 mmol/L Normal 3.5-5.1 [facility] Comment on above: Performed By: #### H GHCT, BMP3M #### [address] Sodium [Moles/Vol] 135 mmol/L Normal 135-145 [facility] Comment on above: Performed By: #### H GHCT, BMP3M #### [address] Basic Metabolic Panel w/ Ref felicitas to MGon 12-28-2018 Anion gap [Moles/Vol] 14 mmol/L [place], [place] Calcium [Mass/Vol] 8.8 mg/dL 8.4 - 10. 4 mg/dL [place] Chloride [Moles/Vol] 100 mmol/L 98 - 10 7 mmol/L [place] CO2 [Moles/Vol] 22 mmol/L 22 - 30 mmol/L [place] Creatinine [Mass/Vol] 0.56 mg/dL 0.52 - 1.25 mg/dL [place] EGFR IF NonAfrican [place] >60.0 >60 mL/min [place] Comment on above: Source- MDRD equatio n with creatinine calibration to IDMS(NKDEP) eGFR not recommended for drug dose adjustment GFR/1.73 sq M predicted among blacks MDRD (S/P/Bld) [Vol rate/Area] mL/min/{1.73_m2} >60 mL/min [place] Glucose [Mass/Vol] 208 mg/dL High 70 - 100 mg/dL [place] Interpretation and review of laboratory results Abnormal [place] Potassium [Moles/Vol] 4.6 mmol/L 3.5 - 5.1 mmol/L [place] Sodium [Moles/Vol] 135 mmol/L 135 - 145 mmol/L [place] Urea nitrogen [Mass/Vol] 9 mg/dL 7 - 20 mg/d L [place] Test Performed by [facility], [facility] [place] [address] [place], [place] Glucose,Bedsideon 12-28-2018 Glucose [Mass/Vol] 153 mg/dL High 70-100 [facility] Comment on above: Result Comment: Test performed by glucose meter. Results may be 10%-15% lower than serum/plasma values. (CLIA ID [id number]) Performed By: #### B GLU #### [place] [address] [place] [address] Glucose [Mass/Vol] 166 mg/dL High 70-100 [facility] Comment on above: Result Comment: Test performed by glucose meter. Results may be 10%-15% lower than serum/plasma values. (CLIA ID [id number]) Performed By: #### B GLU #### [facility] [address] [place] [address] Glucose [Mass/Vol] 204 mg/dL High 70-100 [facility] Comment on above: Result Comment: Test performed by glucose meter. Results may be 10%-15% lower than serum/plasma values. (CLIA ID [id number]) Performed By: #### B GLU #### [facility] [address] [place] [address] Glucose [Mass/Vol] 106 mg/dL High 70-100 [facility] Comment on above: Result Comment: Test performed by glucose meter. Results may be 10%-15% lower than serum/plasma values. (CLIA ID [id number]) Performed By: #### B GLU #### [place] [address] [place], [place] Hemoglobin AND Hematocriton 12-28-2018 Hematocrit (Bld) [Volume fraction] 37.0 % Normal 35.0-47.0 [facility] Comment on above: Performed By: #### H GHCT, BMP3M #### [facility] [facility] [address] [place], [place] Hemoglobin (Bld) [Mass/Vol] 12.4 g/dL Normal 11.7-16.0 [facility] Comment on above: Performed By: #### H GHCT, BMP3M #### [place] [address] [place], [place] Hemoglobin and Hematocrit, B loodon 12-28-2018 Hematocrit (Bld) [Volume fraction] 37.0 % 35 - 47 % [place], [place] Hemoglobin (Bld) [Mass/Vol] 12.4 g/dL 11.7 - 16 g/dL [facility], [place] Test Performed by [facility], [address] [place] [address] [place], [place] POCT Glucoseon 12-28-2018 Glucose [Mass/Vol] 153 mg/dL High 70 - 100 mg/dL [place], [place] Comment on above: Test performed by gl ucose meter. Results may be 10%-15% lower than serum/plasma values. (CLIA ID [id number]) Interpretation and review of laboratory results Abnormal [place], [place] Test Performed by [facility], [facility] [place] [address] [place], [place] Glucose [Mass/Vol] 166 mg/dL High 70 - 100 mg/dL [place] Comment on above: Test performed by gl ucose meter. Results may be 10%-15% lower than serum/plasma values. (CLIA ID [id number]) Interpretation and review of laboratory results Abnormal [facility] [place], [place] Test Performed by [facility], [facility] [place] [place], [place] [address] [place] [address], [place] Glucose [Mass/Vol] 204 mg/dL High 70 - 100 mg/dL [place], [place] Comment on above: Test performed by gl ucose meter. Results may be 10%-15% lower than serum/plasma values. (CLIA ID [id number]) Interpretation and review of laboratory results Abnormal [facility], [place] Test Performed by [facility], [address] [place] [address] [place], [place] Glucose [Mass/Vol] 106 mg/dL High 70 - 100 mg/dL [place] Comment on above: Test performed by ucose meter. Results may be 10%-15% lower than serum/plasma values. (CLIA ID [id number]) Interpretation and review of laboratory results Abnormal [facility], [place] Test Performed by [facility], [address] [place] [address] [place], [place] Surgical Pathologyon 019 Surgical Pathology [id number] [facility] PATHOLOGY AND LABORATORY MEDICINE [address] [place] [address] FINAL SURGICAL PATHOLOGY REPORT NAME: CATHERINE BUI : 1975 43 [address] NO[facility] [id number] LOCATION: [id number] PROCEDURE 12/28/2018 DATE: SURGEON: JOHN ROMERO M.D. RECEIVED 12/28/2018 DATE: ATTENDING: JOHN ROMERO M.D. 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 COMMENT: Iron stain is negative for increased storage iron. Trichrome stain shows focal mild perigranular fibrosis suggestive of resolving steatohepatitis. AHD/AHD Signature> MARY OLVERA M.D. CLINICAL INFORMATION: Morbid obesity SPECIMEN: LIVER NEEDLE OR WEDGE BIOPSY, MEDICAL GROSS DESCRIPTION: Liver biopsy Received in formalin are three red-brown, shaggy tissue segments measuring 0.7 to 1 cm. Submitted in toto. (3 ns, 1) JCK/KMS1 Disclaimer: The following statement applies to all immunohistochemistry, in situ hybridization, molecular studies, and immunofluorescence testing. The use of one or more reagents in the above tests is regulated as an analyte specific reagent (ASR). These tests were developed and their performance characteristics determined by the clinical laboratories of [facility]. They have not been cleared by the US Food and Drug Administration (FDA). The FDA has determined that such clearance or approval is not necessary. All the above immunostains were performed on paraffin embedded tissue. Appropriate positive and negative controls (where applicable) were run in parallel with the patient's specimen; these controls showed expected staining pattern, with acceptable intensity of staining. Immunohistochemical assays have not been validated on decalcified tissues. Results should be interpreted with caution given the raised possibility of false negativity on decalcified specimens. Professional Performing Location: [address] [address]. DEPARTMENT OF PATHOLOGY AND LABORATORY MEDICINE [place], [place] [address] Normal [facility] Basic Metabolic Panelon 09-0 Anion gap [Moles/Vol] 14 Normal [facility] Comment on above: Performed By: #### B MP3 #### [facility] [address] [place] [address] Calcium [Mass/Vol] 9.6 mg/dL Normal 8.4-10.4 [facility] Comment on above: Performed By: #### B MP3 #### [facility] [address] [place] [address] CO2 [Moles/Vol] 26 mmol/L Normal 22-30 [facility] Comment on above: Performed By: #### B MP3 #### [facility] [address] [place] [address] Glucose [Mass/Vol] 102 mg/dL High 70-100 [facility] Comment on above: Performed By: #### B MP3 #### [facility] [address] [place] [address] Urea nitrogen [Mass/Vol] 13 mg/dL Normal 7-20 [facility] Comment on above: Performed By: #### B MP3 #### [facility] [address] [place] [address] Creatinine [Mass/Vol] 0.52 mg/dL Normal 0.52-1.25 [facility] Comment on above: Performed By: #### B MP3 #### [facility] [address] [place] [address] GFR/1.73 sq M predicted among blacks MDRD (S/P/Bld) [Vol rate/Area] mL/min/{1.73_m2} Normal >60 [facility] Comment on above: Performed By: #### B MP3 #### [facility] [address] [place] [place] [address] GFR/1.73 sq M predicted among non-blacks MDRD (S/P/Bld) [Vol rate/Area] mL/min/{1.73_m2} Normal >60 [facility] Comment on above: Result Comment: Sour ce- MDRD equation with creatinine calibration to IDMS(NKDEP) eGFR not recommended for drug dose adjustment Performed By: #### B MP3 #### [facility] [address] [place] [address] Chloride [Moles/Vol] 98 mmol/L Normal 98-107 [facility] Comment on above: Performed By: #### B MP3 #### [facility] [address] [place] [address] Potassium [Moles/Vol] 5.2 mmol/L High 3.5-5.1 [facility] Comment on above: Performed By: #### B MP3 #### [facility] [address] [place] [address] Sodium [Moles/Vol] 137 mmol/L Normal 135-145 [facility] Comment on above: Performed By: #### B MP3 #### [facility] [address] [place], [place] Anion gap [Moles/Vol] 14 mmol/L [place], [place] Calcium [Mass/Vol] 9.6 mg/dL 8.4 - 10. 4 mg/dL [place] Chloride [Moles/Vol] 98 mmol/L 98 - 10 7 mmol/L [place] CO2 [Moles/Vol] 26 mmol/L 22 - 30 mmol/L [place] Creatinine [Mass/Vol] 0.52 mg/dL 0.52 - 1.25 mg/dL [place] EGFR IF NonAfrican [place]enegrin >60.0 >60 mL/min [place] Comment on above: Source- MDRD equatio n with creatinine calibration to IDMS(NKDEP) eGFR not recommended for drug dose adjustment GFR/1.73 sq M predicted among blacks MDRD (S/P/Bld) [Vol rate/Area] mL/min/{1.73_m2} >60 mL/min [place] Glucose [Mass/Vol] 102 mg/dL High 70 - 100 mg/dL [place] Interpretation and review of laboratory results Abnormal [place] Potassium [Moles/Vol] 5.2 mmol/L High 3.5 - 5.1 mmol/L [place] Sodium [Moles/Vol] 137 mmol/L 135 - 145 mmol/L [place] Urea nitrogen [Mass/Vol] 13 mg/dL 7 - 20 mg/d L [place] Test Performed by [facility], [address] [place] [address] [place] Albuminon 12-03-2018 Albumin [Mass/Vol] 4.3 g/dL 3.5 - 5 g/dL [place], [place] Basic Metabolic Panelon 11-19 Anion gap [Moles/Vol] 14 mmol/L [place], [place] Calcium [Mass/Vol] 9.6 mg/dL 8.4 - 10. 4 mg/dL [place] Chloride [Moles/Vol] 98 mmol/L 98 - 10 7 mmol/L [place] CO2 [Moles/Vol] 27 mmol/L 22 - 30 mmol/L [place] Creatinine [Mass/Vol] 0.48 mg/dL Low 0.52 - 1.25 mg/dL [place] EGFR IF NonAfrican [place] >60.0 >60 mL/min [place] Comment on above: Source- MDRD equatio n with creatinine calibration to IDMS(NKDEP) eGFR not recommended for drug dose adjustment GFR/1.73 sq M predicted among blacks MDRD (S/P/Bld) [Vol rate/Area] mL/min/{1.73_m2} >60 mL/min [place] Glucose [Mass/Vol] 74 mg/dL 70 - 100 mg/dL [place] Interpretation and review of laboratory results Abnormal [place] Potassium [Moles/Vol] 4.5 mmol/L 3.5 - 5.1 mmol/L [place] Sodium [Moles/Vol] 139 mmol/L 135 - 145 mmol/L [place] Urea nitrogen [Mass/Vol] 12 mg/dL 7 - 20 mg/d L [place] CBCon 12-03-2018 Erythrocyte distribution width (RBC) [Ratio] 14.5 % 11.5 - 14.5 % [place] Hematocrit (Bld) [Volume fraction] 38.7 % 35 - 47 % [place] Hemoglobin (Bld) [Mass/Vol] 12.7 g/dL 11.7 - 16 g/dL [place] MCH (RBC) [Entitic mass] 27.0 pg 26 - 34 pg [place] MCHC (RBC) [Mass/Vol] 32.8 % 32 - 36 % [place] MCV (RBC) [Entitic vol] 82.3 fL 79 - 98 fL [place] Platelet mean volume (Bld) [Entitic vol] 9.9 fL 7.4 - 10.4 fL [place] Platelets (Bld) [#/Vol] 325 10*3/uL 140 - 440 10*3/uL [place] RBC (Bld) [#/Vol] 4.70 10*6/uL 3.8 - 5.2 10*6/uL [place] WBC (Bld) [#/Vol] 13.4 10*3/uL High 3.6 - 10.7 10*3/uL [place] Hemoglobin A1Con 12-03-2018 eAG 131 mg/dL [place] HbA1c (Bld) [Mass fraction] 6.2 % High 4 - 5.7 % [place] Comment on above: --HgbA1C levels may not be accurate in patients who have renal disease, received recent blood transfusions, are anemic, or who have dyshemoglobinemia. Otheron 12-03-2018 Test Performed by [facility], [address] [place] [id number] [place] [address] Interpretation and review of laboratory results Abnormal [place] Test Performed by [facility], [address] [place] [address] [place] XR CHEST STANDARD (2 VW)on 0 12-03-2018 [facility] Incoming Radiology Results From [facility] - 12/03/2018 1:37 PM EDT Patient Name: CATHERINE BUI ---Diagnostic Radiology--- Exam Date/Time 12/03/2018 12:40:36 EDT Exam CR Chest PA/LAT Ordering Physician MARLENA ALMEIDA LEISA R. Accession Number [id number] CPT4 Codes 01785 () Reason For Exam PRE OP Report CHEST, PA & LATERAL: INDICATION: Preop COMPARISON: No previous studies are available for comparison. PA and lateral views of the chest were obtained. The heart is normal in size. The mediastinal silhouette is normal. The lungs are clear. There are no effusions or infiltrates. There is biapical pleural thickening. Arthritic changes of the spine and shoulders are present. IMPRESSION: Negative chest. Report Dictated on Workstation: [id number] --- Final --- Dictated: 12/03/2018 1:34 pm Dictating Physician: DO MELENDEZ ALFRED Signed Date and Time: 12/03/2018 1:36 pm Signed by: DO MELENDEZ ALFRED Transcribed Date and Time: 12/03/2018 1:34 [place] Patient Name: CATHERINE BUI ---Diagnostic Radiology--- Exam Date/Time 12/03/2018 12:40:36 EDT Exam CR Chest PA/LAT Ordering Physician MARLENA ALMEIDA LEISA R. Accession Number [id number] CPT4 Codes 34451 () Reason For Exam PRE OP Report CHEST, PA & LATERAL: INDICATION: Preop COMPARISON: No previous studies are available for comparison. PA and lateral views of the chest were obtained. The heart is normal in size. The mediastinal silhouette is normal. The lungs are clear. There are no effusions or infiltrates. There is biapical pleural thickening. Arthritic changes of the spine and shoulders are present. IMPRESSION: Negative chest. Report Dictated on Workstation: [id number] --- Final --- Dictated: 12/03/2018 1:34 pm Dictating Physician: DO MELENDEZ ALFRED Signed Date and Time: 12/03/2018 1:36 pm Signed by: DO MELENDEZ ALFRED Transcribed Date and Time: 12/03/2018 1:34 [place], [place] BMP with eGFRon 07-31-2018 Age - Reported 42 years Normal [facility] Comment on above: Performed By: #### 2 [id number] #### [facility],[address] [place] [address] Anion gap [Moles/Vol] 14 mmol/L Normal 10 - 20 [facility] Comment on above: Performed By: #### 2 09829 #### [facility],[address] [place] [address] Calcium [Mass/Vol] 9.9 mg/dL Normal 8.6 - 10.2 [facility] Comment on above: Performed By: #### 2 73613 #### [facility],[address] [place] [address] Chloride [Moles/Vol] 102 mmol/L Normal 98 - 107 [facility] Comment on above: Performed By: #### 2 76042 #### [facility],[address] [place] [address] CO2 [Moles/Vol] 23.2 mmol/L Normal 21.0 - 31.0 [facility] Comment on above: Performed By: #### 2 93529 #### [facility],[address] [place] [address] Creatinine [Mass/Vol] 0.6 mg/dL Normal 0.6 - 1.2 [facility] Comment on above: Performed By: #### 2 10480 #### [facility],[address] [place] [address] GFR/1.73 sq M predicted among non-blacks MDRD (S/P/Bld) [Vol rate/Area] mL/min/{1.73_m2} Normal 60 - 999 [facility] Comment on above: Performed By: #### 2 57563 #### [facility],[address] [place] [address]36[address] Result Comment: ACCO RDING TO THE NATIONAL KIDNEY DISEASE EDUCATION PROGRAM(NKDE), A NORMAL eGFR IS A VALUE GREATER THAN OR EQUAL TO 60 ML/MIN/1.73 SQ METERS. CHRONIC KIDNEY DISEASE: <60mL/MIN/1.73 SQ METERS KIDNEY FAILURE: <15mL/MIN/1.73 SQ METERS THIS TEST SHOULD ONLY BE USED FOR PATIENTS 18 YEARS OF AGE AND OLDER. GFR/1.73 sq M predicted among non-blacks MDRD (S/P/Bld) [Vol rate/Area] Normal [facility] Comment on above: Result Comment: JAVI C METABOLIC PANEL Performed By: #### 2 38058 #### [facility],[address] [place] [address] Glucose [Mass/Vol] 118 mg/dL High 74 - 106 [facility] Comment on above: Performed By: #### 2 49724 #### [facility],[address] [place] [address] Potassium [Moles/Vol] 4.1 mmol/L Normal 3.5 - 5.1 [facility] Comment on above: Performed By: #### 2 00732 #### [address] [address] Sodium [Moles/Vol] 135 mmol/L Low 136 - 145 [facility] Comment on above: Performed By: #### 2 88106 #### [facility],[address] [place] [address] Urea nitrogen [Mass/Vol] 13 mg/dL Normal 6 - 20 [facility] Comment on above: Performed By: #### 2 71484 #### [facility],[address] [place] [address] LIPID PROFILEon 07-31-2018 Cholesterol [Mass/Vol] 124 mg/dL Normal 0 - 200 [facility] Comment on above: Performed By: #### 2 34017 #### [address] [address] Cholesterol in HDL [Mass/Vol] 21 mg/dL Low 40 - 60 [facility] Comment on above: Performed By: #### 2 67548 #### [facility],[address] [place] [address] Cholesterol in LDL [Mass/Vol] 81 mg/dL Normal 0 - 129 [facility] Comment on above: Performed By: #### 2 76000 #### [facility],[address] [place] [address] Cholesterol.total/Choles terol in HDL [Mass ratio] 5.9 {ratio} High 0.0 - 5.0 [facility] Comment on above: Performed By: #### 2 17044 #### [facility],[address] [place] [address] 28001 Lipid 1996 panel Normal [facility] Comment on above: Result Comment: LIPI D PROFILE Performed By: #### 2 02639 #### [facility],[address] [place] [address] Triglyceride [Mass/Vol] 108 mg/dL Normal 0 - 150 [facility] Comment on above: Performed By: #### 2 86606 #### [facility],[address] [place] [address] TSHon 07-31-2018 TSH Qn 2.42 uIU/ml Normal 0.34 - 5.60 [facility] Comment on above: Performed By: #### 2 87020 #### [facility],[address] [place] [address] US Pelvis Non-OB Completeon 07-24-2018 US Pelvis Non-OB Complete Exam Date/Time: 07/23/2018 15:35 EDT Reason for Exam: PELVIC PAIN;Pelvic pain Report STUDY: US Pelvis Non-OB Complete; US Transvaginal Non-OB; 07/23/2018 3:35 pm INDICATION: Pelvic pain. COMPARISON: None. ACCESSION NUMBER(S): [id number]; [id number] ORDERING CLINICIAN: Yifan Fregoso TECHNIQUE: Multiple multiplanar static baxter scale, color and spectral waveform sonographic images of the pelvis were obtained. Transabdominal and endovaginal ultrasound was performed. FINDINGS: UTERUS: The uterus is grossly unremarkable in appearance. The uterus measures at 8.4 cm in length and 4.1 x 5.5 cm in AP and transverse diameters. ENDOMETRIUM: The endometrium measures a thickness of 4 mm, which is normal. RIGHT ADNEXA: The right ovary measures at 2.0 x 2.4 x 2.9 cm. Normal-appearing color Doppler flow is seen in the right ovary. No right adnexal mass is identified. LEFT ADNEXA: The left ovary was not well visualized CUL DE SAC: No free fluid is identified. IMPRESSION: 1. Nonvisualization of the left ovary. Exam Date/Time: 07/23/2018 15:35 EDT Report 2. Otherwise unremarkable ultrasound appearance of the pelvis, without evidence of focal masses. FINAL REPORT Dictated: 07/24/2018 10:53 am Kumar Thorpe MD Signed (Electronic Signature): 07/24/2018 10:53 am Signed by: Kumar Thorpe MD Technologist: GABE [facility] US Transvaginal Non-OBon US Transvaginal Non-OB Exam Date/Time: 07/23/2018 15:35 EDT Reason for Exam: PELVIC PAIN;Pelvic pain Report STUDY: US Pelvis Non-OB Complete; US Transvaginal Non-OB; 07/23/2018 3:35 pm INDICATION: Pelvic pain. COMPARISON: None. ACCESSION NUMBER(S): [id number]; [id number] ORDERING CLINICIAN: Yifan Fregoso TECHNIQUE: Multiple multiplanar static baxter scale, color and spectral waveform sonographic images of the pelvis were obtained. Transabdominal and endovaginal ultrasound was performed. FINDINGS: UTERUS: The uterus is grossly unremarkable in appearance. The uterus measures at 8.4 cm in length and 4.1 x 5.5 cm in AP and transverse diameters. ENDOMETRIUM: The endometrium measures a thickness of 4 mm, which is normal. RIGHT ADNEXA: The right ovary measures at 2.0 x 2.4 x 2.9 cm. Normal-appearing color Doppler flow is seen in the right ovary. No right adnexal mass is identified. LEFT ADNEXA: The left ovary was not well visualized CUL DE SAC: No free fluid is identified. IMPRESSION: 1. Nonvisualization of the left ovary. Exam Date/Time: 07/23/2018 15:35 EDT Report 2. Otherwise unremarkable ultrasound appearance of the pelvis, without evidence of focal masses. FINAL REPORT Dictated: 07/24/2018 10:53 am Kumar Thorpe MD Signed (Electronic Signature): 07/24/2018 10:53 am Signed by: Kumar Thorpe MD Technologist: GABE [facility]ldon [facility] Magnesiumon 06-15-2018 Magnesium [Mass/Vol] 1.6 mg/dL Normal 1.6-2.3 [facility] Comment on above: Performed By: #### H EMOG, IRON3, LIPD2, CMP3, MG3, TSH5, FERR3, B12, FOLT3 #### [facility] [address] [place] [address] #### VD25H #### [facility] [address] [place] [address] Vitamin B1,Whole Bloodon Vitamin B1,Whole Blood 133 nmol/L Normal 70-180 [facility] Comment on above: Result Comment: INTE RPRETIVE INFORMATION: Vitamin B1, Whole Blood This assay measures the concentration of thiamine diphosphate (TDP), the primary active form of vitamin B1. Approximately 90 percent of vitamin B1 present in whole blood is TDP. Thiamine and thiamine monophosphate, which comprise the remaining 10 percent, are not measured. Test developed and characteristics determined by [facility]. See Compliance Statement B: [employer]/ Performed by [facility], [address] [place] [id number] [email or web address], Blane Connelly MD - Lab. Director Performed By: #### H EMOG, IRON3, LIPD2, CMP3, MG3, TSH5, FERR3, B12, FOLT3 #### [facility] [address] [place] [address] #### VD25H #### [facility] [address] [place] [address] Zinc, Serumon 05-07-2018 Zinc, Serum 77 ug/dL Normal 60-120 [facility] Comment on above: Result Comment: INTE RPRETIVE INFORMATION: Zinc, Serum or Plasma Circulating zinc concentrations are dependent on albumin status and are depressed with malnutrition. Zinc may also be lowered with infection, inflammation, stress, oral contraceptives, and . Zinc may be elevated with zinc supplementation or fasting. Elevated zinc concentrations may interfere with copper absorption. Test developed and characteristics determined by [facility]. See Compliance Statement B: [employer]/ Performed by [facility], [facility] [place] [address] [email or web address], Blane Connelly MD - Lab. Director Performed By: #### H EMOG, IRON3, LIPD2, CMP3, MG3, TSH5, FERR3, B12, FOLT3 #### [facility] [address] [place] [address] #### VD25H #### [facility] [address] [place] [address] Comp Metabolic Panelon 05-04 ALT [Catalytic activity/Vol] 56 U/L Normal 13-69 [facility] Comment on above: Performed By: #### H EMOG, IRON3, LIPD2, CMP3, MG3, TSH5, FERR3, B12, FOLT3 #### [facility] [address] [place] [address] #### VD25H #### [facility] [address] [place] [address] Calcium [Mass/Vol] 10.6 mg/dL High 8.4-10.4 [facility] Comment on above: Performed By: #### H EMOG, IRON3, LIPD2, CMP3, MG3, TSH5, FERR3, B12, FOLT3 #### [facility] [address] [place] [address] #### VD25H #### [facility] [address] [place] [address] Glucose [Mass/Vol] 121 mg/dL High 70-100 [facility] Comment on above: Performed By: #### H EMOG, IRON3, LIPD2, CMP3, MG3, TSH5, FERR3, B12, FOLT3 #### [facility] [address] [place] [address] #### VD25H #### [facility] [address] [place] [address] ALP [Catalytic activity/Vol] 76 U/L Normal 38-126 [facility] Comment on above: Performed By: #### H EMOG, IRON3, LIPD2, CMP3, MG3, TSH5, FERR3, B12, FOLT3 #### [facility] [address] [place] [address] #### VD25H #### [facility] [address] [place] [address] Anion gap [Moles/Vol] 12 Normal [facility] Comment on above: Performed By: #### H EMOG, IRON3, LIPD2, CMP3, MG3, TSH5, FERR3, B12, FOLT3 #### [facility] [address] [place] [address] #### VD25H #### [place] [address] [place] [address] AST [Catalytic activity/Vol] 31 U/L Normal 15-46 [facility] Comment on above: Performed By: #### H EMOG, IRON3, LIPD2, CMP3, MG3, TSH5, FERR3, B12, FOLT3 #### [facility] [address] [place] [address] #### VD25H #### [facility] [address] [place] [address] Bilirubin [Mass/Vol] 0.3 mg/dL Normal 0.2-1.3 [facility] Comment on above: Performed By: #### H EMOG, IRON3, LIPD2, CMP3, MG3, TSH5, FERR3, B12, FOLT3 #### [facility] [address] [place] [address] #### VD25H #### [facility] [address] [place] [address] CO2 [Moles/Vol] 26 mmol/L Normal 22-30 [facility] Comment on above: Performed By: #### H EMOG, IRON3, LIPD2, CMP3, MG3, TSH5, FERR3, B12, FOLT3 #### [facility] [address] [place] [address] #### VD25H #### [place] [address] [place] [address] Creatinine [Mass/Vol] 0.65 mg/dL Normal 0.52-1.25 [facility] Comment on above: Performed By: #### H EMOG, IRON3, LIPD2, CMP3, MG3, TSH5, FERR3, B12, FOLT3 #### [facility] [address] [place] [address] #### [id number] #### [place] [address] [place] [address] GFR/1.73 sq M predicted among blacks MDRD (S/P/Bld) [Vol rate/Area] mL/min/{1.73_m2} Normal >60 [facility] Comment on above: Performed By: #### H EMOG, IRON3, LIPD2, CMP3, MG3, TSH5, FERR3, B12, FOLT3 #### [address] [place] [address] #### [id number] #### [address] [place] [facility] [place] [place] [address] GFR/1.73 sq M predicted among non-blacks MDRD (S/P/Bld) [Vol rate/Area] mL/min/{1.73_m2} Normal >60 [facility] Comment on above: Result Comment: Sour ce- MDRD equation with creatinine calibration to IDMS(NKDEP) eGFR not recommended for drug dose adjustment Performed By: #### H EMOG, IRON3, LIPD2, CMP3, MG3, TSH5, FERR3, B12, FOLT3 #### [address] [place] [address] #### [id number] #### [address] [place] [address] Protein [Mass/Vol] 7.4 g/dL Normal 6.3-8.2 [facility] Comment on above: Performed By: #### H EMOG, IRON3, LIPD2, CMP3, MG3, TSH5, FERR3, B12, FOLT3 #### [address] [address] #### [id number] #### [facility] [address] [place] [address] Urea nitrogen [Mass/Vol] 15 mg/dL Normal 7-20 [facility] Comment on above: Performed By: #### H EMOG, IRON3, LIPD2, CMP3, MG3, TSH5, FERR3, B12, FOLT3 #### [facility] [address] [place] [address] #### [id number] #### [facility] [address] [place] [address] Potassium [Moles/Vol] 4.4 mmol/L Normal 3.5-5.1 [facility] Comment on above: Performed By: #### H EMOG, IRON3, LIPD2, CMP3, MG3, TSH5, FERR3, B12, FOLT3 #### [facility] [address] [place] [address] #### [id number] #### [facility] [address] [place] [address] Sodium [Moles/Vol] 137 mmol/L Normal 135-145 [facility] Comment on above: Performed By: #### H EMOG, IRON3, LIPD2, CMP3, MG3, TSH5, FERR3, B12, FOLT3 #### [facility] [address] [place] [address] #### [id number] #### [facility] [address] [place] [address] Albumin [Mass/Vol] 4.2 g/dL Normal 3.5-5.0 [facility] Comment on above: Performed By: #### H EMOG, IRON3, LIPD2, CMP3, MG3, TSH5, FERR3, B12, FOLT3 #### [facility] [address] [place] [address] #### [id number] #### [facility] [address] [place] [address] Chloride [Moles/Vol] 99 mmol/L Normal 98-107 [facility] Comment on above: Performed By: #### H EMOG, IRON3, LIPD2, CMP3, MG3, TSH5, FERR3, B12, FOLT3 #### [facility] [address] [place] [address] #### [id number] #### [facility] [address] [place] [address] Ferritinon 05-04-2018 Ferritin [Mass/Vol] 10 ng/mL Normal 8-252 [facility] Comment on above: Performed By: #### H EMOG, IRON3, LIPD2, CMP3, MG3, TSH5, FERR3, B12, FOLT3 #### [facility] [address] [place] [address] #### [id number] #### [facility] [address] [place] [address] Folateon 05-04-2018 Folate 13.6 ng/mL Normal 2.8-20.0 [facility] Comment on above: Performed By: #### H EMOG, IRON3, LIPD2, CMP3, MG3, TSH5, FERR3, B12, FOLT3 #### [facility] [address] [facility] [place] [address] #### VD25H #### [facility] [address] [place] [address] Hemogramon 05-04-2018 Erythrocyte distribution width (RBC) [Ratio] 14.9 % High 11.5-14.5 [facility] Comment on above: Performed By: #### H EMOG, IRON3, LIPD2, CMP3, MG3, TSH5, FERR3, B12, FOLT3 #### [facility] [address] [place] [address] #### [id number] #### [facility] [address] [place] [address] Hematocrit (Bld) [Volume fraction] 42.5 % Normal 35.0-47.0 [facility] Comment on above: Performed By: #### H EMOG, IRON3, LIPD2, CMP3, MG3, TSH5, FERR3, B12, FOLT3 #### [facility] [address] [place] [address] #### VD25H #### [facility] [address] [place] [address] Hemoglobin (Bld) [Mass/Vol] 13.7 g/dL Normal 11.7-16.0 [facility] Comment on above: Performed By: #### H EMOG, IRON3, LIPD2, CMP3, MG3, TSH5, FERR3, B12, FOLT3 #### [facility] [address] [place] [address] #### VD25H #### [place] [address] [place] [address] MCH (RBC) [Entitic mass] 25.7 pg Low 26.0-34.0 [facility] Comment on above: Performed By: #### H EMOG, IRON3, LIPD2, CMP3, MG3, TSH5, FERR3, B12, FOLT3 #### [facility] [place] [address] #### VD25H #### [place] [address] [place] [address] MCHC (RBC) [Mass/Vol] 32.2 % Normal 32.0-36.0 [facility] Comment on above: Performed By: #### H EMOG, IRON3, LIPD2, CMP3, MG3, TSH5, FERR3, B12, FOLT3 #### [facility] [address] [place] [address] #### VD25H #### [place] [address] [place] [address] MCV (RBC) [Entitic vol] 79.8 fL Normal 79.0-98.0 [facility] Comment on above: Performed By: #### H EMOG, IRON3, LIPD2, CMP3, MG3, TSH5, FERR3, B12, FOLT3 #### [facility] [address] [place] [address] #### VD25H #### [place] [address] [place] [address] Platelet mean volume (Bld) [Entitic vol] 9.0 fL Normal 7.4-10.4 [facility] Comment on above: Performed By: #### H EMOG, IRON3, LIPD2, CMP3, MG3, TSH5, FERR3, B12, FOLT3 #### [facility] [address] [place] [address] #### VD25H #### [facility] [address] [place] [address] Platelets (Bld) [#/Vol] 322 10*3/uL Normal 140-440 [facility] Comment on above: Performed By: #### H EMOG, IRON3, LIPD2, CMP3, MG3, TSH5, FERR3, B12, FOLT3 #### [facility] [address] [place] [address] #### VD25H #### [facility] [address] [place] [address] RBC (Bld) [#/Vol] 5.32 10*6/uL High 3.80-5.20 [facility] Comment on above: Performed By: #### H EMOG, IRON3, LIPD2, CMP3, MG3, TSH5, FERR3, B12, FOLT3 #### [facility] [address] [place] [address] #### VD25H #### [facility] [address] [place] [address] WBC (Bld) [#/Vol] 11.5 10*3/uL High 3.6-10.7 [facility] Comment on above: Performed By: #### H EMOG, IRON3, LIPD2, CMP3, MG3, TSH5, FERR3, B12, FOLT3 #### [facility] [address] [place] [address] #### VD25H #### [facility] [address] [place] [address] Iron, Totalon 05-04-2018 Iron, Total 80 ug/dL Normal 37-170 [facility] Comment on above: Performed By: #### H EMOG, IRON3, LIPD2, CMP3, MG3, TSH5, FERR3, B12, FOLT3 #### [facility] [address] [place] [address] #### VD25H #### [facility] [address] [place] [address] Lipid Panelon 05-04-2018 Cholesterol in HDL [Mass/Vol] 23 mg/dL Low 40-60 [facility] Comment on above: Performed By: #### H EMOG, IRON3, LIPD2, CMP3, MG3, TSH5, FERR3, B12, FOLT3 #### [facility] [address] [place] [address] #### VD25H #### [facility] [address] [place] [address] Cholesterol.total/Choles terol in HDL [Mass ratio] 5 Normal [facility] Comment on above: Result Comment: Ref Range: < 3 Low Risk for CHD 3-6 Mod Risk for CHD > 6 High Risk for CHD Performed By: #### H EMOG, IRON3, LIPD2, CMP3, MG3, TSH5, FERR3, B12, FOLT3 #### [facility] [address] [place] [address] #### VD25H #### [facility] [address] [place] [address] Protein [Mass/Vol] 82 mg/dL Normal <100 [facility] Comment on above: Performed By: #### H EMOG, IRON3, LIPD2, CMP3, MG3, TSH5, FERR3, B12, FOLT3 #### [facility] [address] [place] [address] #### VD25H #### [facility] [address] [place] [address] Triglyceride [Mass/Vol] 91 mg/dL Normal <150 [facility] Comment on above: Performed By: #### H EMOG, IRON3, LIPD2, CMP3, MG3, TSH5, FERR3, B12, FOLT3 #### [facility] [address] [place] [address] #### VD25H #### [facility] [address] [place] [address] Cholesterol [Mass/Vol] 123 mg/dL Normal < 200 [facility] Comment on above: Performed By: #### H EMOG, IRON3, LIPD2, CMP3, MG3, TSH5, FERR3, B12, FOLT3 #### [facility] [address] [place] [address] #### VD25H #### [facility] [address] [place] [address] Magnesiumon 05-04-2018 Magnesium [Mass/Vol] 1.4 mg/dL Low 1.6-2.3 [facility] Comment on above: Performed By: #### H EMOG, IRON3, LIPD2, CMP3, MG3, TSH5, FERR3, B12, FOLT3 #### [facility] [address] [place] [address] #### VD25H #### [facility] [address] [place] [address] Thyroid Stim. Hormoneon 04-21 Thyroid Stim. Hormone 2.585 u[IU]/mL Normal 0.465-4.68 0 [facility] Comment on above: Performed By: #### H EMOG, IRON3, LIPD2, CMP3, MG3, TSH5, FERR3, B12, FOLT3 #### [facility] [address] [place] [address] #### VD25H #### [facility] [address] [place] [address] Vit D 25-OH, Totalon 019 Vit D 25-OH, Total 37 ng/mL Normal 30-100 [facility] Comment on above: Result Comment: Ther apy is based on measurement of Total 25-OHD with the following classification levels: Less than 20 ng/mL: Indicative of Vit D deficiency 20-30 ng/mL: Suggests Vit D insufficiency Optimal: Greater than or equal to 30 ng/mL Test performed by [employer] Immunoassay, measuring Total Vitamin D, not individual fractions. Performed By: #### H EMOG, IRON3, LIPD2, CMP3, MG3, TSH5, FERR3, B12, FOLT3 #### [facility] [address] [place] [address] #### VD25H #### [facility] [address] [place] [address] Vitamin B12on 05-04-2018 Cobalamin (Vitamin B12) [Mass/Vol] 303 pg/mL Normal 239-931 [facility] Comment on above: Performed By: #### H EMOG, IRON3, LIPD2, CMP3, MG3, TSH5, FERR3, B12, FOLT3 #### [facility] [address] [place] [address] #### VD25H #### [facility] [address] [place] [address] FSHon 01-30-2018 FSH 7.2 mIU/mL Normal [facility] Comment on above: Result Comment: Male : 1.5 - 12.4 Female: Follicular phase 3.5 - 12.5 Ovulation phase 4.7 - 21.5 Luteal phase 1.7 - 7.7 Postmenopausal 25.8 - 134.8 Performed At: [facility] [id number] Yakov Landon PhD Ph:[phone] Performed By: #### [id number] #### [place] [address] Office Visit: postop surgery 08/15/1608-30-2016 Dietary management education, guidance, and counseling (procedure) yes Invalid Interpretation Code [facility] Work Phone: Documentation of current medications (procedure) Done Invalid Interpretation Code [facility] Work Phone: Fall risk assessment No Invalid Interpretation Code [facility] Work Phone: [phone] Protein mass conc Done [facility] Work Phone: Tobacco smoking status NHIS Never Invalid Interpretation Code [facility] Work Phone: [phone] Tobacco smoking status NHIS Never smoker [facility] Work Phone: [phone] Tobacco use [facility] Never smoker Invalid Interpretation Code [facility] Work Phone: Office Visit: postop surgery 08/15/1608-21-2016 Dietary management education, guidance, and counseling (procedure) yes Invalid Interpretation Code [facility] Work Phone: [phone] Documentation of current medications (procedure) Done Invalid Interpretation Code [facility] Work Phone: [phone] Fall risk assessment No Invalid Interpretation Code [facility] Work Phone: [phone] Tobacco smoking status NHIS Never Invalid Interpretation Code [facility] Work Phone: [phone] Tobacco use [facility] Never smoker Invalid Interpretation Code [facility] Work Phone: [phone] Office Visit: evaluation apollo glion cysts bilateral wristson 07-03-2016 Dietary management education, guidance, and counseling (procedure) yes Invalid Interpretation Code [facility] Work Phone: [phone] Documentation of current medications (procedure) Done Invalid Interpretation Code [facility] Work Phone: [phone] Fall risk assessment No Invalid Interpretation Code [facility] Work Phone: [phone] Tobacco smoking status NHIS Never Invalid Interpretation Code [facility] Work Phone: [phone] Tobacco use [facility] Never smoker Invalid Interpretation Code [facility] Work Phone: [phone] Microbiology: Culture, Wound on 12-17-2014 CUW . [facility] Work Phone: [phone] wound culture . Invalid Interpretation Code [facility] Work Phone: [phone] Vital Signs Date Time Vital Sign Value Performing Clinician Facility 07-26-2024 10:15-0400 Body temperature 98.2 [degF] Giancarlo Posadas [employer] Work Phone: [facility] 07-26-2024 10:15-0400 Diastolic blood pressure 72 mm[Hg] Giancarlo Posadas [employer] Work Phone: [facility] 07-26-2024 10:15-0400 Heart rate 61 /min Giancarlo Posadas [employer] Work Phone: [facility] 07-26-2024 10:15-0400 Respiratory rate 16 /min Giancarlo Posadas [employer] Work Phone: [facility] 07-26-2024 10:15-0400 SaO2% (BldA) [Mass fraction] 95 % Giancarlo Posadas [employer] Work Phone: [phone])213-047093 [place] [address] 07-26-2024 10:15-0400 Systolic blood pressure 110 mm[Hg] Giancarlo Posadas [employer] Work Phone: 4(753)589-670293 [place] [address] 07-26-2024 09:11-0400 Body height 162.56 cm Giancarlo Posadas [employer] Work Phone: [phone])326-132593 [place] [address] 07-26-2024 09:11-0400 Body mass index (BMI) [Ratio] 33.7 kg/m2 Giancarlo Posadas [employer] Work Phone: 0(591)946-052893 [place] [address] 07-26-2024 09:11-0400 Body weight 89 kg Giancarlo Posadas [employer] Work Phone: 4(725)712-231593 [place] [address] 07-06-2024 14:23-0400 Body mass index (BMI) [Ratio] 34.3 kg/m2 Giancarlo Posadas [employer] Work Phone: 1(507)859-285393 [place] [address] 07-06-2024 14:23-0400 Body temperature 98.3 [degF] Giancarlo Posadas [employer] Work Phone: 5(605)275-765593 [place] [address] 07-06-2024 14:23-0400 Body weight 90.71 kg Giancarlo Posadas [employer] Work Phone: 5(632)543-494593 [place] [address] 07-06-2024 14:23-0400 Diastolic blood pressure 80 mm[Hg] Giancarlo Posadas [employer] Work Phone: 8(068)245-454493 [place] [address] 07-06-2024 14:23-0400 Heart rate 81 /min Giancarlo Posadas [employer] Work Phone: 1(965)348-753593 [place] [address] 07-06-2024 14:23-0400 Respiratory rate 18 /min Giancarlo Posadas [employer] Work Phone: 1(123)244-121093 [place] [address] 07-06-2024 14:23-0400 SaO2% (BldA) [Mass fraction] 96 % Giancarlo Posadas [employer] Work Phone: 7(018)838-994693 [place] [address] 07-06-2024 14:23-0400 Systolic blood pressure 122 mm[Hg] Giancarlo Posadas [employer] Work Phone: 8(294)741-957460 [place] [address] 05-19-2024 08:20-0500 Body temperature 98 [degF] Giancarlo Posadas [employer] Work Phone: 3(718)490-762993 [place] [address] 05-19-2024 08:20-0500 Diastolic blood pressure 76 mm[Hg] Ginacarlo Posadas [employer] Work Phone: 9(645)543-777793 [place] [address] 05-19-2024 08:20-0500 Heart rate 70 /min Giancarlo Posadas [employer] Work Phone: 5(093)483-264193 [place] [address] 05-19-2024 08:20-0500 Respiratory rate 16 /min Giancarlo Posadas [employer] Work Phone: 8(803)379-784093 [place] [address] 05-19-2024 08:20-0500 SaO2% (BldA) [Mass fraction] 97 % Giancarlo Posadas [employer] Work Phone: 2(995)880-725593 [place] [address] 05-19-2024 08:20-0500 Systolic blood pressure 122 mm[Hg] Giancarlo Posadas [employer] Work Phone: 4(754)509-714193 [place] [address] 05-19-2024 06:38-0500 Body mass index (BMI) [Ratio] 34.4 kg/m2 Giancarlo Posadas [employer] Work Phone: 5(715)247-945893 [place] [address] 05-19-2024 06:38-0500 Body weight 91 kg Giancarlo Posadas [employer] Work Phone: 7(786)696-222552 [address] 07-01-2023 15:38-0400 Body height 162.[address] Hermelinda Castillo Work Phone: [facility] 07-01-2023 15:37-0400 Body mass index (BMI) [Ratio] 34.8 kg/m2 Dr. Hermelinda Castillo Work Phone: [facility] 07-01-2023 15:37-0400 Body temperature 96.6 [degF] Dr. Hermelinda Castillo Work Phone: [facility] 07-01-2023 15:37-0400 Body weight 92.[address] Hermelinda Castillo Work Phone: [facility] 07-01-2023 15:37-0400 Diastolic blood pressure 88 mm[Hg] Dr. Hermelinda Castillo Work Phone: [facility] 07-01-2023 15:37-0400 Heart rate 72 /min Dr. Hermelinda Castillo Work Phone: [facility] 07-01-2023 15:37-0400 Respiratory rate 14 /min Dr. Hermelinda Castillo Work Phone: [facility] 07-01-2023 15:37-0400 SaO2% (BldA) [Mass fraction] 98 % Dr. Hermelinda Castillo Work Phone: [facility] 07-01-2023 15:37-0400 Systolic blood pressure 138 mm[Hg] Dr. Hermelinda Castillo Work Phone: [facility] 04-24-2023 08:32-0500 Diastolic blood pressure 73 mm[Hg] Dr. Hermelinda Castillo Work Phone: [facility] 04-24-2023 08:32-0500 Heart rate 60 /min Dr. Hermelinda Castillo Work Phone: [facility] 04-24-2023 08:32-0500 Respiratory rate 16 /min Dr. Hermelinda Castillo Work Phone: [facility] 04-24-2023 08:32-0500 SaO2% (BldA) [Mass fraction] 100 % Dr. Hermelinda Castillo Work Phone: [facility] 04-24-2023 08:32-0500 Systolic blood pressure 113 mm[Hg] Dr. Hermelinda Castillo Work Phone: [facility] 04-24-2023 08:21-0500 Body temperature 97 [degF] Dr. Hermelinda Castillo Work Phone: [facility] 04-24-2023 06:35-0500 Body height 162.[address] Hermelinda Castillo Work Phone: [facility] 04-24-2023 06:35-0500 Body mass index (BMI) [Ratio] 33.6 kg/m2 Dr. Hermelinda Castillo Work Phone: [facility] 04-24-2023 06:35-0500 Body weight 88.[address] Hermelinda Castillo Work Phone: [facility] 04-22-2023 13:15-0500 Diastolic blood pressure 80 mm[Hg] Dr. Hermelinda Castillo Work Phone: [facility] 04-22-2023 13:15-0500 Heart rate 69 /min Dr. Hermelinda Castillo Work Phone: [facility] 04-22-2023 13:15-0500 Respiratory rate 23 /min Dr. Hermelinda Castillo Work Phone: [facility] 04-22-2023 13:15-0500 Systolic blood pressure 119 mm[Hg] Dr. Hermelinda Castillo Work Phone: [facility] 04-22-2023 11:37-0500 SaO2% (BldA) [Mass fraction] 96 % Dr. Hermelinda Castillo Work Phone: [facility] 04-22-2023 09:19-0500 Body height 162.[address] Hermelinda Castillo Work Phone: [facility] 04-22-2023 09:19-0500 Body mass index (BMI) [Ratio] 34.3 kg/m2 Dr. Hermelinda Castillo Work Phone: [facility] 04-22-2023 09:19-0500 Body temperature 98.1 [degF] Dr. Hermelinda Castillo Work Phone: [facility] 04-22-2023 09:19-0500 Body weight 90.[address] Hermelinda Castillo Work Phone: [facility] 04-01-2023 15:42-0500 Body mass index (BMI) [Ratio] 34.8 kg/m2 Dr. Hermelinda Castillo Work Phone: [facility] 04-01-2023 15:42-0500 Body temperature 97.2 [degF] Dr. Hermelinda Castillo Work Phone: [facility] 04-01-2023 15:42-0500 Body weight 92.[address] Hermelinda Castillo Work Phone: [facility] 04-01-2023 15:42-0500 Diastolic blood pressure 84 mm[Hg] Dr. Hermelinda Castillo Work Phone: [facility] 04-01-2023 15:42-0500 Heart rate 70 /min Dr. Hermelinda Castillo Work Phone: [facility] 04-01-2023 15:42-0500 Respiratory rate 18 /min Dr. Hermelinda Castillo Work Phone: [facility] 04-01-2023 15:42-0500 SaO2% (BldA) [Mass fraction] 98 % Dr. Hermelinda Castillo Work Phone: [facility] 04-01-2023 15:42-0500 Systolic blood pressure 135 mm[Hg] Dr. Hermelinda Castillo Work Phone: [facility] 03-20-2023 15:27-0500 Body height 162.[address] Hermelinda Castillo Work Phone: [facility] 03-20-2023 15:27-0500 Body mass index (BMI) [Ratio] 34.9 kg/m2 Dr. Hermelinda Castillo Work Phone: [facility] 03-20-2023 15:27-0500 Body temperature 97.4 [degF] Dr. Hermelinda Castillo Work Phone: [facility] 03-20-2023 15:27-0500 Body weight 92.[address] Hermelinda Castillo Work Phone: [facility] 03-20-2023 15:27-0500 Diastolic blood pressure 80 mm[Hg] Dr. Hermelinda Castillo Work Phone: [facility] 03-20-2023 15:27-0500 Heart rate 68 /min Dr. Hermelinda Castillo Work Phone: [facility] 03-20-2023 15:27-0500 Respiratory rate 18 /min Dr. Hermelinda Castillo Work Phone: [facility] 03-20-2023 15:27-0500 SaO2% (BldA) [Mass fraction] 99 % Dr. Hermelinda Castillo Work Phone: [facility] 03-20-2023 15:27-0500 Systolic blood pressure 135 mm[Hg] Dr. Hermelinda Castillo Work Phone: [facility] 12-13-2022 13:04-0400 Body height 162.[address] Hermelinda Castillo Work Phone: [facility] 12-13-2022 13:04-0400 Body mass index (BMI) [Ratio] 35.2 kg/m2 Dr. Hermelinda Castillo Work Phone: [facility] 12-13-2022 13:04-0400 Body temperature 96 [degF] Dr. Hermelinda Castillo Work Phone: [facility] [facility] 12-13-2022 13:04-0400 Body weight 92.[address] Hermelinda Castillo Work Phone: [facility] 12-13-2022 13:04-0400 Diastolic blood pressure 84 mm[Hg] Dr. Hermelinda Castillo Work Phone: [facility] 12-13-2022 13:04-0400 Heart rate 72 /min Dr. Hermelinda Castillo Work Phone: [facility] 12-13-2022 13:04-0400 Respiratory rate 18 /min Dr. Hermelinda Castillo Work Phone: [facility] 12-13-2022 13:04-0400 SaO2% (BldA) [Mass fraction] 99 % Dr. Hermelinda Castillo Work Phone: [facility] 12-13-2022 13:04-0400 Systolic blood pressure 124 mm[Hg] Dr. Hermelinda Castillo Work Phone: [facility] 11-18-2022 08:32-0400 Body height 162.[address] Hermelinda Castillo Work Phone: [facility] 11-18-2022 08:32-0400 Body mass index (BMI) [Ratio] 35.2 kg/m2 Dr. Hermelinda Castillo Work Phone: [facility] 11-18-2022 08:32-0400 Body temperature 96.3 [degF] Dr. Hermelinda Castillo Work Phone: [facility] 11-18-2022 08:32-0400 Body weight 93.[address] Hermelinda Castillo Work Phone: [facility] 11-18-2022 08:32-0400 Diastolic blood pressure 86 mm[Hg] Dr. Hermelinda Castillo Work Phone: [facility] 11-18-2022 08:32-0400 Heart rate 73 /min Dr. Hermelinda Castillo Work Phone: [facility] 11-18-2022 08:32-0400 Respiratory rate 18 /min Dr. Hermelinda Castillo Work Phone: [facility] 11-18-2022 08:32-0400 SaO2% (BldA) [Mass fraction] 99 % Dr. Hermelinda Castillo Work Phone: [facility] 11-18-2022 08:32-0400 Systolic blood pressure 144 mm[Hg] Dr. Hermelinda Castillo Work Phone: [facility] 11-01-2022 11:42-0400 Body temperature 97.4 [degF] Dr. Hermelinda Castillo Work Phone: [facility] 11-01-2022 11:42-0400 Diastolic blood pressure 83 mm[Hg] Dr. Hermelinda Castillo Work Phone: [facility] 11-01-2022 11:42-0400 Heart rate 74 /min Dr. Hermelinda Castillo Work Phone: [facility] 11-01-2022 11:42-0400 Respiratory rate 16 /min Dr. Hermelinda Castillo Work Phone: [facility] 11-01-2022 11:42-0400 SaO2% (BldA) [Mass fraction] 97 % Dr. Hermelinda Castillo Work Phone: [facility] 11-01-2022 11:42-0400 Systolic blood pressure 127 mm[Hg] Dr. Hermelinda Castillo Work Phone: [facility] 10-31-2022 14:06-0400 Body height 162.[address] Hermelinda Castillo Work Phone: [facility] 10-31-2022 14:06-0400 Body weight 92.[address] Hermelinda Castillo Work Phone: [facility] 10-29-2022 14:55-0400 Body mass index (BMI) [Ratio] 35 kg/m2 Dr. Hermelinda Castillo Work Phone: [facility] 10-29-2022 12:13-0400 Body temperature 97 [degF] [facility] 10-29-2022 12:13-0400 Diastolic blood pressure 78 mm[Hg] [facility] 10-29-2022 12:13-0400 Heart rate 68 /min [facility] 10-29-2022 12:13-0400 Respiratory rate 16 /min [facility] 10-29-2022 12:13-0400 Systolic blood pressure 136 mm[Hg] [facility] 10-29-2022 07:12-0400 SaO2% (BldA) [Mass fraction] 99 % [facility] 10-29-2022 05:23-0400 Body height 162.56 cm [facility] 10-29-2022 05:23-0400 Body mass index (BMI) [Ratio] 35.5 kg/m2 [facility] 10-29-2022 05:23-0400 Body weight 93.9 kg [facility] 06-05-2022 15:03-0500 Body height 162.[address] Hermelinda Castillo Work Phone: [facility] 06-05-2022 15:03-0500 Body mass index (BMI) [Ratio] 36.7 kg/m2 Dr. Hermelinda Castillo Work Phone: [facility] 06-05-2022 15:03-0500 Body temperature 97.2 [degF] Dr. Hermelinda Castillo Work Phone: [facility] 06-05-2022 15:03-0500 Body weight 97.[address] Hermelinda Castillo Work Phone: [facility] 06-05-2022 15:03-0500 Diastolic blood pressure 82 mm[Hg] Dr. Hermelinda Castillo Work Phone: [facility] 06-05-2022 15:03-0500 Heart rate 81 /min Dr. Hermelinda Castillo Work Phone: [facility] 06-05-2022 15:03-0500 Respiratory rate 14 /min Dr. Hermelinda Castillo Work Phone: [facility] 06-05-2022 15:03-0500 SaO2% (BldA) [Mass fraction] 97 % Dr. Hermelinda Castillo Work Phone: [facility] 06-05-2022 15:03-0500 Systolic blood pressure 132 mm[Hg] Dr. Hermelinda Castillo Work Phone: [facility] 05-16-2022 10:38-0500 Body mass index (BMI) [Ratio] 36.7 kg/m2 Dr. Hermelinda Castillo Work Phone: [facility] 05-16-2022 10:38-0500 Body temperature 98.5 [degF] Dr. Hermelinda Castillo Work Phone: [facility] 05-16-2022 10:38-0500 Body weight 97.[address] Hermelinda Castillo Work Phone: [facility] 05-16-2022 10:38-0500 Diastolic blood pressure 70 mm[Hg] Dr. Hermelinda Castillo Work Phone: [facility] 05-16-2022 10:38-0500 Heart rate 69 /min Dr. Hermelinda Castillo Work Phone: [facility] 05-16-2022 10:38-0500 Respiratory rate 16 /min Dr. Hermelinda Castillo Work Phone: [facility] 05-16-2022 10:38-0500 SaO2% (BldA) [Mass fraction] 98 % Dr. Hermelinda Castillo Work Phone: [facility] 05-16-2022 10:38-0500 Systolic blood pressure 120 mm[Hg] Dr. Hermelinda Castillo Work Phone: [facility] 03-22-2022 11:15-0500 Body temperature 100.6 [degF] Dr. Hermelinda Castillo Work Phone: [facility] 03-22-2022 11:15-0500 Diastolic blood pressure 84 mm[Hg] Dr. Hermelinda Castillo Work Phone: [facility] 03-22-2022 11:15-0500 Heart rate 67 /min Dr. Hermelinda Castillo Work Phone: [facility] 03-22-2022 11:15-0500 Respiratory rate 16 /min Dr. Hermelinda Castillo Work Phone: [facility] 03-22-2022 11:15-0500 SaO2% (BldA) [Mass fraction] 94 % Dr. Hermelinda Castillo Work Phone: [facility] 03-22-2022 11:15-0500 Systolic blood pressure 132 mm[Hg] Dr. Hermelinda Castillo Work Phone: [facility] 03-22-2022 09:50-0500 Body height 162.[address] Hermelinda Castillo Work Phone: [facility] Work Phone: 03-22-2022 09:50-0500 Body mass index (BMI) [Ratio] 35.2 kg/m2 Dr. Hermelinda Castillo Work Phone: [facility] 03-22-2022 09:50-0500 Body weight [address] Hermelinda Castillo Work Phone: [facility] 03-13-2022 11:10-0500 Body height 162.6 cm Evangelina Saeed MD Work Phone: [facility] 03-13-2022 11:10-0500 Body weight 94.35 kg Evangelina Saeed MD Work Phone: [facility] 03-13-2022 11:10-0500 Diastolic blood pressure 85 mm[Hg] Evangelina Saeed MD Work Phone: [facility] 03-13-2022 11:10-0500 Heart rate 71 /min Evangelina Saeed MD Work Phone: [facility] 03-13-2022 11:10-0500 Systolic blood pressure 142 mm[Hg] vEangelina Saeed MD Work Phone: [facility] 02-27-2022 08:15-0500 Body mass index (BMI) [Ratio] 36 kg/m2 Dr. Hermelinda Castillo Work Phone: [facility] 02-27-2022 08:15-0500 Body temperature 98 [degF] Dr. Hermelinda Castillo Work Phone: [facility] 02-27-2022 08:15-0500 Body weight 95.[address] Hermelinda Castillo Work Phone: [facility] 02-27-2022 08:15-0500 Diastolic blood pressure 80 mm[Hg] Dr. Hermelinda Castillo Work Phone: [facility] 02-27-2022 08:15-0500 Heart rate 77 /min Dr. Hermelinda Castillo Work Phone: [facility] 02-27-2022 08:15-0500 Respiratory rate 16 /min Dr. Hermelinda Castillo Work Phone: [facility] 02-27-2022 08:15-0500 SaO2% (BldA) [Mass fraction] 100 % Dr. Hermelinda Castillo Work Phone: [facility] 02-27-2022 08:15-0500 Systolic blood pressure 118 mm[Hg] Dr. Hermelinda Castillo Work Phone: [facility] 02-07-2022 16:22-0400 Body height 162.[address] Hermelinda Castillo Work Phone: [facility] Work Phone: 02-07-2022 16:22-0400 Body mass index (BMI) [Ratio] 35.5 kg/m2 Dr. Hermelinda Castillo Work Phone: [facility] Work Phone: 02-07-2022 16:22-0400 Body temperature 96.9 [degF] Dr. Hermelinda Castillo Work Phone: [facility] Work Phone: 02-07-2022 16:22-0400 Body weight 93.[address] Hermelinda Castillo Work Phone: [facility] Work Phone: 02-07-2022 16:22-0400 Diastolic blood pressure 88 mm[Hg] Dr. Hermelinda Castillo Work Phone: [facility] Work Phone: 02-07-2022 16:22-0400 Heart rate 72 /min Dr. Hermelinda Castillo Work Phone: [facility] Work Phone: 02-07-2022 16:22-0400 Respiratory rate 16 /min Dr. Hermelinda Castillo Work Phone: [facility] Work Phone: 02-07-2022 16:22-0400 SaO2% (BldA) [Mass fraction] 99 % Dr. Hermelinda Castillo Work Phone: [facility] Work Phone: 02-07-2022 16:22-0400 Systolic blood pressure 132 mm[Hg] Dr. Hermelinda Castillo Work Phone: [facility] Work Phone: 11-20-2021 09:20-0400 Body height 162.[address] Hermelinda Castillo Work Phone: [facility] Work Phone: 11-20-2021 09:20-0400 Body mass index (BMI) [Ratio] 35.2 kg/m2 Dr. Hermelinda Castillo Work Phone: [facility] Work Phone: 11-20-2021 09:20-0400 Body temperature 98 [degF] Dr. Hermelinda Castillo Work Phone: [facility] Work Phone: 11-20-2021 09:20-0400 Body weight 92.[address] Hermelinda Castillo Work Phone: [facility] Work Phone: 11-20-2021 09:20-0400 Diastolic blood pressure 74 mm[Hg] Dr. Hermelinda Castillo Work Phone: [facility] Work Phone: 11-20-2021 09:20-0400 Heart rate 69 /min Dr. Hermelinda Castillo Work Phone: [facility] Work Phone: 11-20-2021 09:20-0400 Respiratory rate 14 /min Dr. Hermelinda Castillo Work Phone: [facility] Work Phone: 11-20-2021 09:20-0400 SaO2% (BldA) [Mass fraction] 98 % Dr. Hermelinda Castillo Work Phone: [facility] Work Phone: 11-20-2021 09:20-0400 Systolic blood pressure 126 mm[Hg] Dr. Hermelinda Castillo Work Phone: [facility] Work Phone: 08-23-2021 10:02-0400 Body mass index (BMI) [Ratio] 35.5 kg/m2 Dr. Hermelinda Castillo Work Phone: [facility] Work Phone: 08-23-2021 10:02-0400 Body weight 93.[address] Hermelinda Castillo Work Phone: [facility] Work Phone: 08-23-2021 10:02-0400 Diastolic blood pressure 86 mm[Hg] Dr. Hermelinda Castillo Work Phone: [facility] Work Phone: 08-23-2021 10:02-0400 Systolic blood pressure 124 mm[Hg] Dr. Hermelinda Castillo Work Phone: [facility] Work Phone: 08-10-2021 09:07-0400 Body mass index (BMI) [Ratio] 35.5 kg/m2 Dr. Hermelinda Castillo Work Phone: [facility] Work Phone: 08-10-2021 09:07-0400 Body temperature 98.1 [degF] Dr. Hermelinda Castillo Work Phone: [facility] Work Phone: 08-10-2021 09:07-0400 Body weight 93.[address] Hermelinda Castillo Work Phone: [facility] Work Phone: 08-10-2021 09:07-0400 Diastolic blood pressure 80 mm[Hg] Dr. Hermelinda Castillo Work Phone: [facility] Work Phone: 08-10-2021 09:07-0400 Heart rate 75 /min Dr. Hermelinda Castillo Work Phone: [facility] Work Phone: 08-10-2021 09:07-0400 Respiratory rate 14 /min Dr. Hermelinda Castillo Work Phone: [facility] Work Phone: 08-10-2021 09:07-0400 SaO2% (BldA) [Mass fraction] 98 % Dr. Hermelinda Castillo Work Phone: [facility] Work Phone: 08-10-2021 09:07-0400 Systolic blood pressure 114 mm[Hg] Dr. Hermelinda Castillo Work Phone: [facility] Work Phone: 12-30-2018 11:16-0400 Body Temperature 100 [degF] [facility] [place] 12-30-2018 11:16-0400 BP Diastolic 104 mm[Hg] John LandinSimiojiFanDistro [facility] , [place] 12-30-2018 11:16-0400 BP Systolic 149 mm[Hg] [facility] [place] 12-30-2018 11:16-0400 Pulse (Heart Rate) 73 /min John Romero [facility], [place] 12-30-2018 11:16-0400 Pulse Oximetry 96 % John LandinSimiojiyuilop [facility] [place] 12-30-2018 11:16-0400 Respiratory Rate 16 /min [facility] [place] 12-28-2018 05:35-0400 BMI (Body Mass Index) 49.26 kg/m2 John Romero [facility], [place] 12-28-2018 05:35-0400 Body weight 130.18 kg John Alanizyuilop [facility] [place] 12-28-2018 05:35-0400 Height 162.6 cm John [facility] [place] 12-22-2018 07:40-0400 BMI (Body Mass Index) 49.26 kg/m2 John Romero [facility] 12-22-2018 07:40-0400 Body Temperature 98.2 [degF] [facility] [place] 12-22-2018 07:40-0400 Body weight 130.18 kg John Romero [facility] [place] 12-22-2018 07:40-0400 BP Diastolic 70 mm[Hg] John Alan[facility]ilop [facility] [place] 12-22-2018 07:40-0400 BP Systolic 115 mm[Hg] [facility]It[facility] [place] 12-22-2018 07:40-0400 Height 162.6 cm John Fox [facility] [place] , [place] 12-22-2018 07:40-0400 Pulse (Heart Rate) 70 /min John Fox [facility], [place] 12-22-2018 07:40-0400 Pulse Oximetry 97 % John Fox [facility] , [place] 12-22-2018 07:40-0400 Respiratory Rate 16 /min John Fox [facility], [place] 08-30-2016 09:47-0400 BMI (Body Mass Index) 50.63 kg/m2 Jarret Reece MD [facility] Work Phone: 08-30-2016 09:47-0400 Body Temperature 98.6 [degF] Jarret Reece MD [facility] Work Phone: 08-30-2016 09:47-0400 BP Diastolic 82 mm[Hg] Jarret Reece MD [facility] Work Phone: 08-30-2016 09:47-0400 BP Systolic 126 mm[Hg] Jarret Reece MD [facility] Work Phone: 08-30-2016 09:47-0400 BSA (Body Surface Area) 2.34 m2 Jarret Reece MD [facility] Work Phone: 08-30-2016 09:47-0400 Height 163.83 cm Jarret Reece MD [facility] Work Phone: 08-30-2016 09:47-0400 Pulse (Heart Rate) 62 /min Jarret Rodriguez [facility] Work Phone: 08-30-2016 09:47-0400 Pulse Oximetry 97 % Jarret Rodriguez [facility] Work Phone: 08-30-2016 09:47-0400 Respiratory Rate 16 /min Jarret Reece MD [facility] Work Phone: 08-30-2016 09:47-0400 Weight 135.9 kg Jarret Reece MD [facility] Work Phone: 08-21-2016 13:12-0400 BMI (Body Mass Index) 50.12 kg/m2 Jarret Reece MD [facility] Work Phone: 08-21-2016 13:12-0400 Body Temperature 98.3 [degF] Jarret Reece MD [facility] Work Phone: 08-21-2016 13:12-0400 BP Diastolic 84 mm[Hg] Jarret Reece MD [facility] Work Phone: 08-21-2016 13:12-0400 BP Systolic 123 mm[Hg] Jarret Reece MD [facility] Work Phone: 08-21-2016 13:12-0400 BSA (Body Surface Area) 2.33 m2 Jarret Reece MD [facility] Work Phone: 08-21-2016 13:12-0400 Height 163.83 cm Jarret Reece MD [facility] Work Phone: 08-21-2016 13:12-0400 Pulse (Heart Rate) 60 /min Jarret Reece MD [facility] Work Phone: 08-21-2016 13:12-0400 Pulse Oximetry 97 % Jarret Reece MD [facility] Work Phone: 08-21-2016 13:12-0400 Respiratory Rate 16 /min Jarret Reece MD [facility] Work Phone: 08-21-2016 13:12-0400 Weight 134.54 kg Jarret Reece MD [facility] Work Phone: 07-03-2016 11:18-0400 BMI (Body Mass Index) 49.98 kg/m2 [facility] Work Phone: 07-03-2016 11:18-0400 Body Temperature 98.6 [degF] Aziza Simons [facility] Work Phone: 07-03-2016 11:18-0400 BP Diastolic 85 mm[Hg] Aziza Simons [facility] Work Phone: 07-03-2016 11:18-0400 BP Systolic 121 mm[Hg] Aziza Simons [facility] Work Phone: 07-03-2016 11:180400 BSA (Body Surface Area) 2.33 m2 Aziza Simons [facility] Work Phone: 07-03-2016 11:180400 Height 163.83 cm Aziza Simons [facility] Work Phone: 07-03-2016 11:18-0400 Pulse (Heart Rate) 64 /min Aziza Rodriguez [facility] Work Phone: 07-03-2016 11:180400 Pulse Oximetry 98 % Aziza Rodriguez [facility] Work Phone: 07-03-2016 11:180400 Respiratory Rate 16 /min Aziza Simons [facility] Work Phone: 07-03-2016 11:180400 Weight 134.17 kg Aziza Simons [facility] Work Phone: Encounters Encounter Date Encounter Type Care Provider Facility Start: 09-27-2024 ambulatory Giancarlo Posadas VS Facility :[facility] Start: 09-15-2024 End: 09-15-2024 ambulatory Giancarlo Posadas [employer]-C Work Phone: [facility] Work Phone: Start: 09-15-2024 End: 09-15-2024 Patient encounter procedure Adriana Irene FLAT SURFACER-C -Laboratory Work Phone: Start: 09-15-2024 End: 09-15-2024 ambulatory Giancarlo Bobder VSC Facility:[facility] Start: 09-09-2024 End: 09-09-2024 Patient encounter procedure Conchita MUNIZ -[facility] Work Phone: Start: 09-09-2024 End: 09-09-2024 ambulatory Giancarlo Bobder VSC Facility:[facility] Start: 08-26-2024 End: 08-26-2024 ambulatory Giancarlo Bobder [employer]ER-C Work Phone: [facility] Work Phone: Start: 08-26-2024 End: 08-26-[address] Jose Suresh MD -Ultrasound, [facility] Work Phone: Start: 08-26-2024 End: 08-26-2024 ambulatory Jose Suresh Facility:[facility] Start: 08-12-2024 End: 08-12-2024 ambulatory Giancarlo Posadas [employer] SURF[employer]ER-C Work Phone: [facility] Work Phone: Start: 08-12-2024 End: 08-12-2024 Patient encounter procedure Catherine Messer -Radiology, [place] Work Phone: Start: 08-12-2024 End: 08-12-2024 ambulatory Catherine Guerrerofield Facility:[facility] Start: 07-26-2024 End: 07-26-2024 Admission to same day surgery center Dr. Primitivo Lockhart MD -[facility] Start: 07-26-2024 End: 07-26-2024 ambulatory Giancarlo Posadas [employer] SURF[employer]ER-C Work Phone: [facility] Work Phone: Start: 07-06-2024 End: 07-06-[address] Stephane Melgar MD -[facility] Work Phone: Start: 07-06-2024 End: 07-06-2024 ambulatory Giancarlo Posadas VSC Facility:[facility] Start: 06-09-2024 End: 06-09-2024 Patient encounter procedure Giancarlo Posadas FLAT SURFACER-C -Laboratory, [facility] Start: 06-09-2024 End: 06-09-2024 ambulatory Giancarlo Posadas VSC Facility:[facility] Start: 05-19-2024 ambulatory Ramez Villatoro Facility :[facility] Start: 05-19-2024 Non-patient / Non-visit Ramez Villatoro DO -[facility] Start: 05-19-2024 End: 05-19-2024 Admission to same day surgery center Ramez Villatoro DO -Endoscopy Work Phone: Start: 05-19-2024 End: 05-19-2024 ambulatory Giancarlo Posadas VSC Facility:[facility] Start: 04-09-2024 End: 04-09-[address] Joaquin Boyce MD -[facility] Work Phone: Start: 04-09-2024 End: 04-09-2024 ambulatory Giancarlo Posadas VSC Facility:[facility] Start: 03-25-2024 End: 03-25-2024 ambulatory Giancarlo Posadas VSC Facility:[facility] Start: 03-22-2024 End: 03-22-2024 ambulatory Karina Lion Facility:[facility] Start: 03-17-2024 End: 03-17-2024 ambulatory Giancarlo Posadas VSC Facility:[facility] Start: 03-15-2024 End: 03-15-2024 ambulatory Giancarlo Posadas VSC Facility:[facility] Start: 02-23-2024 End: 02-23-2024 ambulatory Karina Lion Facility:[facility] Start: 02-19-2024 End: 02-19-2024 ambulatory Giancarlo Posadas VSC Facility:[facility] Start: 12-30-2023 End: 12-30-2023 ambulatory Giancarlo Posadas VSC Facility:[facility] Start: 12-23-2023 ambulatory Giancarlo Posadas FLAT SURFACER Facility: [facility] Start: 10-30-2023 End: 10-30-2023 ambulatory Giancarlo Posadas VSC Facility:[facility] Start: 08-05-2023 Non-patient / Non-visit [employer] [facility]C Giancarlo Posadas FLAT SURFACER [facility] Start: 08-05-2023 End: 08-05-2023 ambulatory FLAT SUR[employer]ER-C Giancarlo Bobder FLAT SURFACER [facility] Work Phone: Start: 08-05-2023 End: 08-05-2023 Patient encounter procedure FLAT SURFACER-C Giancarlo Posadas FLAT SURFACER [facility] Work Phone: Start: 07-18-2023 End: 07-18-2023 ambulatory FLAT SUR[employer]ER-C Giancarlo Posadas FLAT SURFACER Work Phone: [facility] Work Phone: Start: 07-18-2023 End: 07-18-2023 Patient encounter procedure FLAT SURFACER-C Giancarlo Bobder FLAT SURFACER Work Phone: [facility] Work Phone: Start: 07-07-2023 End: 07-07-[address] Hermelinda Castillo Work Phone: [facility] Work Phone: Start: 07-07-2023 End: 07-07-[address] Hermelinda Castillo Work Phone: [facility]-Laboratory Work Phone: Start: 07-01-2023 End: 07-01-[address] Hermelinda Castillo Work Phone: [facility] [facility] Work Phone: Start: 06-24-[address] Narda Castillo Work Phone: [facility] Start: 06-09-2023 End: 06-09-[address] Hermelinda Castillo Work Phone: [facility] Work Phone: Start: 06-09-2023 End: 06-09-[address] Hermelinda Castillo Work Phone: [facility]-Cat Scan, [facility] Work Phone: Start: 04-24-2023 Non-patient / Non-visit Dr. Hermelinda Castillo Work Phone: [facility] Start: 04-24-2023 End: 04-24-2023 Admission to same day surgery center Dr. Hermelinda Castillo Work Phone: [facility]-Endoscopy Work Phone: Start: 04-22-2023 End: 04-22-2023 Emergency department patient visit Dr. Hermelinda Castillo Work Phone: [facility]-Emergency Department Work Phone: Start: 04-11-2023 End: 04-11-[address] Hermelinda Castillo Work Phone: [facility] Work Phone: Start: 04-03-2023 End: 04-03-[address] Hermelinda Castillo Work Phone: [facility] Work Phone: Start: 04-01-2023 End: 04-01-[address] Hermelinda Castillo Work Phone: [facility] Work Phone: Start: 03-20-2023 End: 03-20-[address] [facility] Work Phone: Start: 03-20-2023 End: 03-20-[address] Hermelinda Castillo Work Phone: [facility] Work Phone: Start: 03-17-2023 End: 03-17-[address] Hermelinda Castillo Work Phone: [facility] Work Phone: Start: 03-17-2023 End: 03-17-[address] Hermelinda Castillo Work Phone: [facility]-Radiology, [facility] Work Phone: Start: 03-07-2023 End: 03-07-[address] Hermelinda Castillo Work Phone: [facility]-Ultrasound, [facility] Work Phone: Start: 02-27-2023 End: 02-27-[address] Hermelinda Castillo Work Phone: [facility] Work Phone: Start: 02-27-2023 End: 02-27-[address] Hermelinda Castillo Work Phone: [facility]-Laboratory Work Phone: Start: 12-25-2022 End: 12-25-[address] Hermelinda Castillo Work Phone: [facility] Work Phone: Start: 12-25-2022 End: 12-25-[address] Hermelinda Castillo Work Phone: [facility] Work Phone: Start: 12-13-2022 End: 12-13-2022 Encounter for general adult medical examination without abnormal findings Dr. Hermelinda Castillo Work Phone: [facility] Start: 12-13-2022 End: 12-13-[address] Hermelinda Castillo Work Phone: [facility] Work Phone: Start: 12-13-[address] Clara Castillo Work Phone: [facility]-Employee Health Start: 11-18-2022 End: 11-18-[address] Hermelinda Castillo Work Phone: [facility] Work Phone: Start: 11-18-2022 End: 11-18-[address] Hermelinda Castillo Work Phone: [facility] Work Phone: Start: 11-12-2022 End: 11-12-[address] Hermelinda Castillo Work Phone: [facility] Work Phone: Start: 11-12-2022 End: 11-12-[address] Hermelinda Castillo Work Phone: [facility]-Laboratory, OP Pavilion Start: 11-01-2022 Non-patient / Non-visit Dr. Hermelinda Castillo Work Phone: [facility] Start: 11-01-2022 Non-patient / Non-visit Dr. Hermelinda Castillo Work Phone: [facility] Work Phone: Start: 10-31-2022 Non-patient / Non-visit Dr. Hermelinda Castillo Work Phone: [facility] Start: 10-31-2022 Non-patient / Non-visit Dr. Hermelinda Castillo Work Phone: [facility] Work Phone: Start: 10-30-2022 Non-patient / Non-visit Dr. Hermelinda Castillo Work Phone: [facility] Start: 10-30-2022 Non-patient / Non-visit Dr. Hermelinda Castillo Work Phone: [facility] Work Phone: Start: 10-29-2022 Non-patient / Non-visit Dr. Hermelinda Castillo Work Phone: [facility] Start: 10-29-2022 Non-patient / Non-visit Dr. Hermelinda Castillo Work Phone: [facility] Work Phone: Start: 10-29-2022 End: 11-01-2022 Evaluation and management of inpatient [facility]-Progressive Care Unit Work Phone: Start: 10-29-2022 observation encounter W [facility] Work Phone: Start: 10-18-2022 End: 10-18-[address] Hermelinda Castillo Work Phone: [facility] Work Phone: Start: 10-18-2022 End: 10-18-[address] Hermelinda Castillo Work Phone: [facility]-Physical Therapy Work Phone: Start: 10-18-2022 Registered Recurring [facility] Work Phone: Start: 09-02-[address] Narda Castillo Work Phone: [facility]-Physical Therapy Start: 08-29-2022 End: 08-29-[address] Hermelinda Castillo Work Phone: [facility] Work Phone: Start: 08-29-2022 End: 08-29-[address] Hermelinda Castillo Work Phone: [facility] Start: 06-12-2022 End: 06-12-[address] Hermelinda Castillo Work Phone: [facility] Work Phone: Start: 06-12-2022 End: 06-12-[address] Hermelinda Castillo Work Phone: [facility] Start: 06-05-2022 End: 06-05-[address] Hermelinda Castillo Work Phone: [facility] Start: 05-16-2022 End: 05-16-[address] Hermelinda Castillo Work Phone: [facility] Start: 03-22-2022 Non-patient / Non-visit Dr. Hermelinda Castillo Work Phone: [facility] Start: 03-22-2022 End: 03-22-2022 Admission to same day surgery center Dr. Hermelinda Castillo Work Phone: [facility]-Endoscopy Start: 03-22-2022 End: 03-22-[address] Hermelinda Castillo Work Phone: [facility] Work Phone: Start: 03-13-2022 End: 03-14-2022 Orders Only Evangelina Saeed MD Work Phone: Endocrine Surgery Comment on above: Uninodular goiter (n ontoxic) (Primary Dx) Uninodular goiter (n ontoxic) Start: 03-06-2022 Telephone encounter Corey Grant Work Phone: Endocrinology Comment on above: Outside Labs Results Start: 03-05-2022 Telephone encounter Evangelina ortiz MD Work Phone: Endocrine Surgery Comment on above: Consult (FACE SHEET) Start: 02-27-2022 End: 02-27-[address] Hermelinda Castillo Work Phone: [facility] Start: 02-20-2022 ambulatory Corey Rainey MD Work Phone: Endocrinology Comment on above: Catherine Stair Start: 02-13-2022 End: 02-13-[address] Hermelinda Castillo Work Phone: [facility] Work Phone: Start: 02-13-2022 End: 02-13-[address] Hermelinda Castillo Work Phone: [facility]-Laboratory, OP Pavilion Start: 02-12-2022 ambulatory Corey Rainey MD Work Phone: Endocrinology Comment on above: Family Dr. [place] Start: 02-08-2022 End: 02-08-2022 ambulatory COREY RAINEY Facility:[facility] Start: 02-08-2022 End: 02-08-2022 ambulatory Corey Rainey MD Work Phone: Endocrinology Comment on above: Dysphagia, unspecifi ed type (Primary Dx); Uninodular goiter (nontoxic) Start: 02-08-2022 End: 02-08-2022 Telemedicine consultation with patient Corey Rainey MD Work Phone: [facility] Start: 02-07-2022 End: 02-07-[address] Hermelinda Castillo Work Phone: [facility] Start: 12-27-2021 Telephone encounter Corey Grant Work Phone: Endocrinology Comment on above: Appointment (Called patient and left msg to call [phone] to schedule consultation with Dr. Kristofer rainey per [place] also let patient know can schedule appointment herself on mychart) Start: 12-26-2021 End: 12-26-[address] Hermelinda Castillo Work Phone: [facility] Work Phone: Start: 12-26-2021 End: 12-26-[address] Hermelinda Castillo Work Phone: [facility]-Laboratory, OP Pavilion Start: 12-26-2021 Non-patient / Non-visit Dr. Hermelinda Castillo Work Phone: [facility] Start: 11-30-2021 End: 11-30-[address] Hermelinda Castillo Work Phone: [facility] Start: 11-21-[address] Clara Castillo Work Phone: [facility] Start: 11-21-2021 End: 11-21-[address] Hermelinda Castillo Work Phone: [facility]-Laboratory, [facility] Pav[facility] Start: 11-20-2021 End: 11-20-[address] Hermelinda Castillo Work Phone: [facility] Start: 10-01-2021 End: 10-01-[address] Hermelinda Castillo Work Phone: [facility]-Ultrasound, WC Start: 08-23-2021 End: 08-23-[address] Hermelinda Castillo Work Phone: [facility] Start: 08-20-2021 End: 08-20-[address] Hermelinda Castillo Work Phone: [facility] Start: 08-10-2021 End: 08-10-[address] Hermelinda Castillo Work Phone: [facility] Start: 12-15-[address] Hermelinda Castillo Work Phone: [facility] Start: 03-07-2020 End: 03-07-2020 Subsequent hospital visit by physician John Romero Work Phone: [facility] Start: 04-27-2019 End: 04-27-2019 Subsequent hospital visit by physician Leyda Rosas CNP Work Phone: [facility] Start: 01-28-2019 End: 01-28-2019 Subsequent hospital visit by physician [facility] Start: 01-22-2019 End: 01-22-2019 Patient encounter procedure JOHN ROMERO [facility] Start: 01-07-2019 End: 01-07-2019 Subsequent hospital visit by physician John Romero Work Phone: [facility] Dept Start: 12-28-2018 End: 12-30-2018 Evaluation and management of inpatient John Romero Work Phone: [facility] H6 TELEMETRY Comment on above: Post-op pain (Primar y Dx) Start: 12-22-2018 End: 12-22-2018 Subsequent hospital visit by physician Leyda Almeida Work Phone: [facility] [address] Comment on above: Hypertension, unspec ified type; PETER on CPAP; Type 2 diabetes mellitus with complication, unspecified whether correction insulin use (HCC); Gastroesophageal reflux disease, esophagitis presence not specified Start: 12-22-2018 End: 12-22-2018 Subsequent hospital visit by physician John Romero Work Phone: [facility] Pre-Admit Testing Comment on above: Arrived Start: 12-07-2018 End: 12-07-2018 Subsequent hospital visit by physician Xiao Danielle Work Phone: [facility] Start: 12-03-2018 End: 12-03-2018 Subsequent hospital visit by physician John Romero Work Phone: [facility] Comment on above: PETER on CPAP; Hypertension, unspecified type; Screening for diabetes mellitus; Prediabetes Start: 07-31-2018 End: 07-31-2018 Patient encounter procedure LUCIANO NAILS [facility] Start: 07-23-2018 End: 07-24-2018 Patient encounter procedure [facility] A [place] Facility:[facility] Start: 07-23-2018 Patient encounter procedure Facility:[id number] Start: 07-22-2018 End: 07-23-2018 Patient encounter procedure Yifan A Lihue Facility:[facility] Start: 07-15-2018 End: 07-16-2018 Patient encounter procedure Timothy Guy Facility:[facility] Start: 01-28-2018 End: 01-29-2018 Patient encounter procedure Timothy Guy Facility:[facility] Start: 01-28-2018 Patient encounter procedure Facility:[id number] Start: 01-13-2018 End: 01-14-2018 Patient encounter procedure Timothy Bennett Malena Facility:[facility] Start: 01-13-2018 End: 01-14-2018 Patient encounter procedure Timothy Guy Facility:[facility] Start: 01-13-2018 Patient encounter procedure Facility:[id number] Start: 01-08-2018 End: 01-08-2018 Patient encounter procedure Timothy Guy Facility:[facility] Procedures Date Procedure Procedure Detail Performing Clinician Start: 09-15-2024 Follicle stimulating hormone measurement Giancarlo Posadas [employer] Work Phone: Comment on above: FEMALE:Follicular: 1.4 - 18.1 mIU/mLMidc ycle: 3.4 - 33.4 mIU/mLLuteal: 1.5 - 9.1 mIU/mLPost Menopause: 23.0 - 116.3 mIU/mLMALE: 1.4 - 18.1 mIU/mL Start: 09-15-2024 Luteinizing hormone measurement Giancarlo tinoco [employer] Work Phone: Comment on above: FEMALE:Follicular: 1.9-12.5 mIU/mLMidcyc le: 8.7-76.3 mIU/mLLuteal: 0.5-16.9 mIU/mLPost Menopause: 15.9-54.0 mIU/mLMALE:20-70 Years: 1.5-9.3 mIU/mL>70 Years: 3.1-34.6 mIU/mL Start: 09-15-2024 Serum progesterone measurement Giancarlo ortiz [employer] Work Phone: Comment on above: Follicular phase 0.1 - 0.9 Luteal phase 1.8 - 23.9 Ovulation phase 0.1 - 12.0 First trimester 11.0 - 44.3 Second trimester 25.4 - 83.3 Third trimester 58.7 - 214.0 Postmenopausal 0.0 - 0.1Performed at: [address] [id number] Director: Dipesh Nagy PhD, Phone: [phone] Start: 08-26-2024 US scan of thyroid Giancarlo Posadas [employer] Work Phone: Start: 08-12-2024 Plain x-ray of pelvis and lower extremity Giancarlo Posadas [employer] Work Phone: Start: 08-12-2024 X-ray of thoracic spine, three views Giancarlo Posadas [employer] Work Phone: Start: 07-26-2024 Local anesthetic sacral epidural block Giancarlo Posadas [employer] Work Phone: Start: 07-26-2024 Injection of spinal epidural space Giancarlo Posadas [employer] Work Phone: Start: 07-26-2024 Injection using fluoroscopic guidance Giancarlo Posadas [employer] Work Phone: Start: 07-18-2023 Ultrasound elastography of liver [employer] Ma merlyn Posadas [employer] Work Phone: Start: 06-09-2023 Computed tomography of abdomen and pelvis with contrast Dr. Hermelinda Castillo Work Phone: Start: 04-22-2023 Plain chest X-ray Dr. Hermelinda Castillo Work Phone: Start: 04-03-2023 Radiologic examination, osseous survey, complete Dr. Hermelinda Castillo Work Phone: Start: 03-17-2023 Diagnostic radiography of abdomen, decubitus and erect Dr. Hermelinda Castillo Work Phone: Start: 03-07-[address] Hermelinda Castillo Work Phone: Start: 03-07-2023 US scan of thyroid Dr. Hermelinda Castillo Work Phone: Start: 12-25-2022 Radiography of thoracic spine Dr. Clara Castillo Work Phone: Start: 10-31-[address] Hermelinda Castillo Work Phone: Start: 10-29-[address] Hermelinda Castillo Work Phone: Start: 10-29-2022 Computed tomography of abdomen and pelvis with contrast Start: 08-29-2022 MRI of joint of lower extremity Dr. Musa Castillo Work Phone: Start: 06-12-[address] Hermelinda Castillo Work Phone: Start: 06-12-[address] Hermelinda aCstillo Work Phone: Start: 03-22-[address] Hermelinda Castillo Work Phone: Start: 03-13-2022 Us soft tissue head & neck real time imge petra Rubin MD Work Phone: Start: 10-01-2021 US scan of thyroid Dr. Hermelinda Castillo Work Phone: Start: 12-30-2018 Gluc bld gluc mntr dev cleared fda spec home use John Dubon Nick Work Phone: Start: 12-30-2018 Gluc bld gluc mntr dev cleared fda spec home use John Dubon Nick Work Phone: Start: 12-30-2018 Blood count complete auto&auto difrntl wbc John Dubon Nick Work Phone: Start: 12-30-2018 BASIC METABOLIC PANEL W/ REFLEX TO MG FOR LOW K Alen Michael Work Phone: Start: 12-30-2018 Gluc bld gluc mntr dev cleared fda spec home use John Dubon Nick Work Phone: Start: 12-29-2018 Gluc bld gluc mntr dev cleared fda spec home use John Dubon Nick Work Phone: Start: 12-29-2018 Gluc bld gluc mntr dev cleared fda spec home use John Dubon Kattyskyla Work Phone: Start: 12-29-2018 Gluc bld gluc mntr dev cleared fda spec home use John Dubon Nick Work Phone: Start: 12-29-2018 Radex gi tract upper w/wo delayed images w/o kub Alen Rodriguez Work Phone: Start: 12-29-2018 Gluc bld gluc mntr dev cleared fda spec home use John Romero Work Phone: Start: 12-29-2018 Assay of magnesium Alen Rodriguez Work Phone: Start: 12-29-2018 BASIC METABOLIC PANEL W/ REFLEX TO MG FOR LOW K Alen Rodriguez Work Phone: Start: 12-29-2018 Blood count complete auto&auto difrntl wbc Alen Rodriguez Work Phone: Start: 12-28-2018 Gluc bld gluc mntr dev cleared fda spec home use John Romero Work Phone: Start: 12-28-2018 Gluc bld gluc mntr dev cleared fda spec home use John Romero Work Phone: Start: 12-28-2018 OPERATIVE REPORT 3m Scanning Start: 12-28-2018 BASIC METABOLIC PANEL W/ REFLEX TO MG FOR LOW K Alen Rodriguez Work Phone: Start: 12-28-2018 Blood count hemoglobin Alen Rodriguez Work Phone: Start: 12-28-2018 Gluc bld gluc mntr dev cleared fda spec home use John Romero Work Phone: Start: 12-28-2018 Level iv surg pathology gross&microscopic exam John Romero Work Phone: Start: 12-28-2018 Gluc bld gluc mntr dev cleared fda spec home use John Romero Work Phone: Start: 12-22-2018 Basic metabolic panel calcium total Leyda R Bridle Work Phone: Start: 12-03-2018 Albumin serum plasma/whole blood Leyda R Bridle Work Phone: Start: 12-03-2018 Basic metabolic panel calcium total Leyda R Bridle Work Phone: Start: 12-03-2018 Blood count complete automated Leyda R B ridle Work Phone: Start: 12-03-2018 Hemoglobin glycosylated a1c Leyda R Brid le Work Phone: Start: 12-03-2018 Radiologic exam chest 2 views Leyda R Br idle Work Phone: Start: 08-30-2016 End: 08-30-2016 Dietary [...] 12-23-2014 End: 07-04-2016 Follow Up Appt Other Jarret Reece MD Start: 12-12-2014 End: 07-04-2016 Bacterica wound culture Jarret Reece MD Start: 12-12-2014 End: 07-04-2016 Follow up Appt 1 week Jarret Reece MD Start: 12-12-2014 End: 07-04-2016 Mri upper extremity w/dye Jarret Reece MD Start: 2014 End: 07-04-2016 Follow Up Appt Other Jarret Reece MD Start: 2014 End: 07-04-2016 Primary Care Physician Jarret Reece MD Start: 08-29-2014 End: 11-15-2014 Follow Up Appt Other Jarret Reece MD Start: 08-29-2014 End: 08-30-2014 Wrist Splint Jarret Reece MD H/O: section H/O sectio n Dr. Hermelinda Castillo Work Phone: H/O: hysterectomy History of hysterectomy Dr. Hermelinda Castilol Work Phone: H/O: surgery S/P thyroid surgery Dr. Musa Castillo Work Phone: Comment on above: Patient is status post left thyroid lobe ctomy for benign process with Dr. Feliciano, remotely. Given that we are considering possible completion thyroidectomy, I requested the patient undergo laryngoscopy to establish vocal cord function. 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 ENT is performing a CT of the neck to assess the course of the recurrent laryngeal nerve. History of cholecystectomy Hx of cholecys tectomy Dr. Hermelinda Castillo Work Phone: Laboratory test result abnormal Abnormal laboratory test result Dr. Hermelinda Castillo Work Phone: Comment on above: See 119.23 ZIGGY with M-Gurwinder, kappa ligh t chain+ Plan of Treatment Date Care Activity Detail Author Start: 07-26-2024 Anes dx/ther nerve block/injection prone pos ANESTH N BLOCK/INJ PRONE [facility] Start: 07-26-2024 Njx dx/ther sbst int rlmnr lmbr/sac w/img gdn NJX INTERLAMINAR LMBR/SAC [facility] Start: 07-26-2024 Patient discharge [facility] Start: 05-19-2024 Egd transoral biopsy single/multiple EGD BIOPSY SINGLE/MULTIPLE [facility] Start: 05-19-2024 Patient discharge [facility] Start: 04-09-2024 Patient referral [facility] Work Phone: Start: 04-24-2023 Colonoscopy flx dx w/collj spec when pfrmd DIAGNOSTIC COLONOSCOPY [facility] Start: 04-24-2023 Egd transoral biopsy single/multiple EGD BIOPSY SINGLE/MULTIPLE [facility] Start: 04-24-2023 Patient discharge [facility] Start: 04-22-2023 [facility] Start: 04-22-2023 End: 04-22-2023 [facility] Start: 12-13-2022 Patient referral [facility] Work Phone: Start: 11-03-2022 Blood chemistry [facility] Start: 11-02-2022 Blood chemistry [facility] Start: 11-01-2022 Patient discharge [facility] Start: 10-31-2022 Catheterization of vein [facility] Start: 10-29-2022 End: 10-30-2022 [facility] Start: 10-29-2022 Following clinical pathway protocol [facility] Start: 10-29-2022 Ambulation without limitation [facility] Start: 10-29-2022 Assessment of risk o f venous thromboembolism [facility] Start: 10-29-2022 Insertion of cathete r into peripheral vein [facility] Start: 10-29-2022 Measuring intake and output [facility] Start: 10-29-2022 Providing care accor ding to standard [facility] Start: 10-29-2022 Referral to gastroenterology service [facility] Start: 10-29-2022 Verification routine [facility] Start: 10-29-2022 Admission procedure [facility] Start: 10-29-2022 [facility] Start: 03-22-2022 Egd transoral biopsy single/multiple EGD BIOPSY SINGLE/MULTIPLE [facility] Start: 03-22-2022 Patient discharge [facility] Start: 12-20-2021 Influenza vaccination INFLUENZA (#1) [facility] Start: 08-10-2021 Patient referral [facility] Work Phone: Start: 05-23-2021 COVID-19 VACCINE (3 - Booster for Pfizer series) COVID-19 VACCINE (3 - Booster for Pfizer series) [facility] Start: 04-21-2021 DEPRESSION ASSESSMENT DEPRESSION ASS ESSMENT [facility] Start: 06-30-2020 End: 06-30-2020 Office Visit 06/30/2020 Office Visit Weight Management Xiao Danielle MD [address] [address] [phone] [facility] Start: 12-31-2019 Creatinine monitoring Creatinine [place] Start: 12-31-2019 Potassium monitoring Potassium [place] Start: 12-30-2019 Creatinine monitoring Creatinine [place] Start: 12-30-2019 Potassium monitoring Pot[place] Start: 12-23-2019 Creatinine monitoring Creatinine [place] Start: 12-23-2019 Potassium monitoring Pot[place] Start: 12-21-2019 Influenza vaccination Flu vaccine (# 1) [place], [place] Start: 12-04-2019 A1C test (Diabetic o r Prediabetic) A1C test (Diabetic or Prediabetic) [place] Start: 12-04-2019 Creatinine monitoring Creatinine [place] Start: 12-04-2019 HbA1c (Bld) [Mass fraction] A1C test (Diabetic or Prediabetic) [place] Start: 12-04-2019 Potassium monitoring Pot[place] Start: 06-29-2019 End: 06-29-2019 Patient encounter procedure 06/29/2019 Office Visit Bariatrics Leyda Almeida, 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 [place] [id number] [facility] Start: 12-28-2018 End: 12-28-2018 Appointment 12/28/2018 Appointment General Surgery John Romero MD [address] [place], [place] [id number] [facility] Start: 12-22-2018 End: 12-22-2018 Appointment 12/22/2018 Appointment Pre-Admission Testing John Romero MD [address] [place], [place] [id number] [facility] Pre-Admit Testing Start: 12-20-2018 Influenza vaccination Flu vaccine (# 1) [facility] [place] Start: 12-07-2018 End: 12-07-2018 Office Visit 12/07/2018 Office Visit Weight Management Xiao Danielle MD [address] [place], [place] [id number] [facility] [place] Bariatric Care [facility] Start: 12-04-2018 End: 12-04-2018 Office Visit 12/04/[facility] Start: 2017 Mammography MAMMOGRAM [facility] Start: 08-30-2016 End: 08-30-2016 Appointment Appointment [facility] Work Phone: Start: 08-30-2016 End: 08-31-2016 Follow Up Appt Other Follow Up Appt Other [facility] Work Phone: Start: 08-21-2016 End: 08-21-2016 Appointment Appointment [facility] Work Phone: Start: 08-21-2016 End: 08-28-2016 Follow up Appt 1 week Follow up Appt 1 week [facility] Work Phone: Start: 07-03-2016 End: 08-15-2016 Follow Up Appt Other Follow Up Appt Other [facility] Work Phone: Start: 07-03-2016 End: 07-04-2016 Mri upper extremity w/dye MRI Upper Extremity with Contrast [facility] Work Phone: Start: 07-03-2016 End: 07-04-2016 X-ray exam of wrist X-Ray, Wrist [facility] Work Phone: Start: 12-23-2014 End: 07-04-2016 Follow Up Appt Other Follow Up Appt Other [facility] Work Phone: Start: 12-12-2014 End: 07-04-2016 Bacterica wound culture *CUW - Culture, Wound (Aerobic) [facility] Work Phone: Start: 12-12-2014 End: 07-04-2016 Follow up Appt 1 week Follow up Appt 1 week [facility] Work Phone: Start: 12-12-2014 End: 07-04-2016 Mri upper extremity w/dye MRI Upper Extremity with Contrast [facility] Work Phone: Start: 2014 End: 07-04-2016 Follow Up Appt Other Follow Up Appt Other [facility] Work Phone: Start: 2014 End: 07-04-2016 Primary Care Physician Primary Care Physician [facility] Work Phone: Start: 08-29-2014 End: 11-15-2014 Follow Up Appt Other Follow Up Appt Other [facility] Work Phone: Start: 08-12-2013 HPV TESTING HPV TESTING [facility] Start: 08-12-2013 PAP TESTING PAP TESTING [facility] Start: 1996 DTaP/Tdap/Td vaccine (1 - Tdap) DTaP/Tdap/Td vaccine (1 - Tdap) [place], [place] Start: 1996 Hepatitis B Vaccine (1 of 3 - Risk 3-dose series) Hepatitis B Vaccine (1 of 3 - Risk 3-dose series) [place] Start: 1996 Urine microalbumin profile DTAP,TDAP,TD (1 - Tdap) [facility] Start: 11-24-1995 Diabetic microalbumi gavin test Diabetic microalbuminuria test [place] Start: 11-24-1995 HEPATITIS C SCREENING HEPATITIS C SC PERRY [facility] Start: 11-24-1995 HIV SCREENING HIV SCREENING [facility] Start: 1992 HIV screen HIV screen Dominique Gray [place], [place] Start: 1992 HIV screening HIV screen Dominique Solis [place], [place] Start: 1989 Adult depression screening assessment DEPRESSION SCREENING [facility] Start: 1988 DTaP/Tdap/Td vaccine (1 - Tdap) DTaP/Tdap/Td vaccine (1 - Tdap) [facility] Work Phone: Start: 11-24-1987 [object Object] Diabetic foot exam [place] Start: 11-24-1987 Diabetic foot examination Diabetic f [place]ot exam [place] Start: 11-24-1987 Diabetic retinal exam Diabetic retin [place] exam [place] Start: 11-24-1983 Pneumococcal 0-64 ye ars Vaccine (1 of 1 - PPSV23) Pneumococcal 0-64 years Vaccine (1 of 1 - PPSV23) [place] Start: 05-26-1978 COVID-19 VACCINE (#1) COVID-19 VACCI NE (#1) [facility] Start: 1977 HEPATITIS B (1 of 3 - 3-dose series) HEPATITIS B (1 of 3 - 3-dose series) [facility] [id number]. tumor marker [Units/volume] in Serum or Plasma [facility] Angiotensin converti ng enzyme [Enzymatic activity/volume] in Serum or Plasma [facility] Basic Metabolic Pane l w/ Reflex to MG Basic Metabolic Panel w/ Reflex to MG Lab Routine Daily until discontinued starting 12/29/2018, 2 completed [place] Comment on above: Daily until disconti nued starting 12/29/2018, 2 completed CBC auto differential CBC auto d ifferential Lab Routine Daily until discontinued starting 12/29/2018, 1 completed [place] Comment on above: Daily until disconti nued starting 12/29/2018, 1 completed CBC W Auto Different ial panel - Blood [facility] CBC W Auto Different ial panel - Blood [facility] CBC W Auto Different ial panel - Blood [facility] Ceruloplasmin [Mass/volume] in Serum or Plasma [facility] Colonoscopy [facility] Comprehensive metabo lic 2000 panel - Serum or Plasma [facility] Copper [Moles/volume ] in Serum or Plasma [facility] CPAP CPAP Respiratory Care Routine Every 4hr until discontinued starting 12/28/2018 [facility] [place] Comment on above: Every 4hr until disc ontinued starting 12/28/2018 Estrogen [Mass/volum e] in Serum or Plasma [facility] Ferritin [Mass/volum e] in Serum or Plasma [facility] Haptoglobin [Mass/vo lume] in Serum or Plasma [facility] Hepatitis A virus Ig M Ab [Presence] in Serum [facility] Hepatitis B core ant ibody measurement, IgM type [facility] Hepatitis B surface antigen measurement [facility] Hepatitis C antibody measurement [facility] HHN Treatment HHN Treatment Re spiratory Care Routine Every 4hr while awake until discontinued starting 12/28/2018 [facility] [place] Comment on above: Every 4hr while awak e until discontinued starting 12/28/2018 Immunoglobulin measurement [facility] Immunoglobulin measurement [facility] Incentive spirometry Incentive s pirometry Respiratory Care Routine Every 1hr while awake until discontinued starting 12/29/2018 [facility] [place] Comment on above: Every 1hr while awak e until discontinued starting 12/29/2018 Initiate Oxygen Ther apy Protocol Initiate Oxygen Therapy Protocol Respiratory Care Routine Daily until discontinued starting 12/29/2018 [facility] [place] Comment on above: Daily until disconti nued starting 12/29/2018 Iron [Mass/mass] in Unspecified specimen [facility] Iron and Iron bindin g capacity panel - Serum or Plasma [facility] Lactate dehydrogenas e measurement [facility] Lactate dehydrogenas e measurement [facility] Liver stiffness by US.transient elastography [facility] Neutrophil cytoplasm ic Ab.classic [Units/volume] in Serum [facility] P-ANCA measurement [facility] Patient Education [facility] Work Phone: Patient referral [facility] Work Phone: [facility] Comment on above: Every 6hr until disc ontinued starting 12/28/2018 As Needed until disc ontinued starting 12/28/2018 Serum immunofixation [facility] Serum immunofixation [facility] Smooth muscle Ab [Presence] in Serum [facility] Transferrin [Mass/vo lume] in Serum or Plasma [facility] Immunizations Immunization Date Immunization Notes Care Provider Doreen wilson 02-05-2024 influenza, seasonal, injectable, preservative free Giancarlo BobChaves-C Work Phone: [facility] 01-16-2023 influenza, injectable, quadrivalent, preservative free Dr. Hermelinda Castillo Work Phone: [facility] 02-11-2022 influenza, injectable, quadrivalent, preservative free Dr. Hermelinda Castillo Work Phone: [facility] 02-11-2022 influenza, seasonal, injectable Dr. Hermelinda Castillo Work Phone: [facility] 01-24-2021 influenza, injectable, quadrivalent, preservative free Dr. Hermelinda Castillo Work Phone: [facility] 01-24-2021 influenza, seasonal, injectable Dr. Hermelinda Castillo Work Phone: [facility] 01-26-2020 influenza, injectable, quadrivalent, preservative free Dr. Hermelinda Castillo Work Phone: [facility] 01-26-2020 influenza, seasonal, injectable Dr. Hermelinda Castillo Work Phone: [facility] 11-29-2019 hepatitis B vaccine, adult dosage Dr. Hermelinda Castillo Work Phone: [facility] 06-30-2019 hepatitis B vaccine, adult dosage Dr. Hermelinda Castillo Work Phone: [facility] 06-30-2019 measles, mumps and rubella virus vaccine Dr. Hermelinda Castillo Work Phone: [facility] 05-31-2019 hepatitis B vaccine, adult dosage Dr. Hermelinda Castillo Work Phone: [facility] 05-31-2019 measles, mumps and rubella virus vaccine Dr. Hermelinda Castillo Work Phone: [facility] 05-24-2019 influenza, injectable, quadrivalent, preservative free Dr. Hermelinda Castillo Work Phone: [facility] 05-24-2019 influenza, seasonal, injectable Dr. Hermelinda Castillo Work Phone: [facility] 05-24-2019 tetanus toxoid, reduced diphtheria toxoid, and acellular pertussis vaccine, adsorbed Dr. Hermelinda Castillo Work Phone: [facility] NEGATED: Highlighted row has not occurred!12-29-2018 influenza, injectable, quadrivalent, preservative free [facility] [place] Payers Date Payer Category Payer Self-pay [id number] 2023 Unknown [id number] 2021 Unknown [id number] 2018 Unknown [facility] xxxxxxxxxxx 2018-Present [phone] CLAIMS DEPARTMENT [address] [place] [address] xxxxxxxxxxx [id number] 2017 Unknown 2014 Medicaid [id number]. [id number] 2013 Unknown [id number] 2013 Unknown [employer] [id number] 1977 Unknown [id number] 2.16.840.1.134115.3.579.2.717 1977 Unknown [id number] 2.840.1.202185.3.579.2.356 1977 Unknown [id number] 2..840.1.718408.3.579.2.356 1977 Unknown [id number] 2.840.1.425357.3.579.2.356 1977 Unknown [id number] 2.840.1.203387.3.579.2.651 1977 Unknown [id number] 2.840.1.789007.3.579.2.651 Unknown [id number] 2.840.1.108320.3.579.2.462 Unknown [id number] 2.840.1.700009.3.579.2.462 Unknown [id number] .840.1.399772.3.579.2.462 Unknown [id number] .840.1.000321.3.579.2.462 Unknown [id number] .840.1.395065.3.579.2.462 Unknown [id number] .840.1.795886.3.579.2.462 Unknown [id number] 840.1.909231.3.579.2.462 Unknown [id number] .840.1.137249.3.579.2.462 Unknown [id number] .840.1.235199.3.579.2.462 Unknown [id number] .840.1.158242.3.579.2.462 Unknown [id number] 2.840.1.890895.3.579.2.462 Unknown [id number] 2.840.1.148111.3.579.2.462 Unknown [id number] 2.16.840.1.152102.3.579.2.462 Unknown [id number] 2.16.840.1.415353.3.579.2.462 Unknown [id number] 2.16.840.1.351173.3.579.2.462 Unknown [id number] 2.16.840.1.029286.3.579.2.462 Unknown [id number] 2.16.840.1.963715.3.579.2.462 Unknown [id number] 2.16.840.1.566114.3.579.2.462 Unknown [id number] 2.16.840.1.891665.3.579.2.462 Unknown [id number] 2.16.840.1.011440.3.579.2.462 Social History Date Type Detail Facility Start: 12-03-2018 End: 07-22-2024 Tobacco smoking status WVIS Never smoker [facility] Start: 12-03-2018 End: 12-22-2018 Alcohol intake No [facility] Start: 1975 Sex Assigned At Not on file [facility] Start: 01-28-2019 End: 03-13-2022 Tobacco use and exposure Never used [facility] Start: 01-28-2019 End: 03-13-2022 Alcohol intake Current non-drinker of alcohol (finding) [employer] 2000 Work Phone: Start: 11-20-2021 End: 04-22-2023 Tobacco smoking status [facility] Unknown if ever smoked [facility] Start: 1975 Sex Assigned At Female [facility] Start: 03-03-2022 End: 03-13-2022 Exposure to SARS-CoV-2 (event) Not sure [facility] Start: 07-26-2024 End: 08-17-2024 Sex Female (finding) [facility] NEGATED: Highlighted row [facility] NEGATED: Highlighted row Not [facility] Medical Equipment Procedure Code Equipment Code Equipment Origin al Text Equipment Identifier Dates EGD, with monitored anesthesia care CLIP,RESO 360 ULTRA 235_17 FDA Start: 10-29-2022 EGD, with monitored anesthesia care CLIP,RESO 360 ULTRA 235_17 FDA Start: 10-29-2022 EGD, with monitored anesthesia care CLIP,RESO 360 ULTRA 235_17 FDA Start: 10-29-2022 EGD, with monitored anesthesia care CLIP,RESO 360 ULTRA 235_17 FDA Start: 10-29-2022 EGD, with monitored anesthesia care Non-organic haemostatic agent [id number] FDA Start: 10-31-2022 EGD, with monitored anesthesia care CLIP,RESO 360 ULTRA 235_17 FDA Start: 10-29-2022 EGD, with monitored anesthesia care CLIP,RESO 360 ULTRA 235_17 FDA Start: 10-29-2022 EGD, with monitored anesthesia care CLIP,RESO 360 ULTRA 235_17 FDA Start: 10-29-2022 EGD, with monitored anesthesia care CLIP,RESO 360 ULTRA 235_17 FDA Start: 10-29-2022 EGD, with monitored anesthesia care CLIP,RESO 360 ULTRA 235_17 FDA Start: 10-29-2022 EGD, with monitored anesthesia care CLIP,RESO 360 ULTRA 235_17 FDA Start: 10-29-2022 EGD, with monitored anesthesia care CLIP,RESO 360 ULTRA 235_17 FDA Start: 10-29-2022 EGD, with monitored anesthesia care CLIP,RESO 360 ULTRA 235_17 FDA Start: 10-29-2022 EGD, with monitored anesthesia care CLIP,RESO 360 ULTRA 235_17 FDA Start: 10-29-2022 EGD, with monitored anesthesia care CLIP,RESO 360 ULTRA 235_17 FDA Start: 10-29-2022 EGD, with monitored anesthesia care CLIP,RESO 360 ULTRA 235_17 FDA Start: 10-29-2022 EGD, with monitored anesthesia care CLIP,RESO 360 ULTRA 235_17 FDA Start: 10-29-2022 EGD, with monitored anesthesia care CLIP,RESO 360 ULTRA 235_17 FDA Start: 10-29-2022 EGD, with monitored anesthesia care CLIP,RESO 360 ULTRA 235_17 FDA Start: 10-29-2022 EGD, with monitored anesthesia care CLIP,RESO 360 ULTRA 235_17 FDA Start: 10-29-2022 EGD, with monitored anesthesia care CLIP,RESO 360 ULTRA 235_17 FDA Start: 10-29-2022 EGD, with monitored anesthesia care CLIP,RESO 360 ULTRA 235_17 FDA Start: 10-29-2022 EGD, with monitored anesthesia care CLIP,RESO 360 ULTRA 235_17 FDA Start: 10-29-2022 EGD, with monitored anesthesia care CLIP,RESO 360 ULTRA 235_17 FDA Start: 10-29-2022 EGD, with monitored anesthesia care CLIP,RESO 360 ULTRA 235_17 FDA Start: 10-29-2022 EGD, with monitored anesthesia care CLIP,RESO 360 ULTRA 235_17 FDA Start: 10-29-2022 EGD, with monitored anesthesia care CLIP,RESO 360 ULTRA 235_17 FDA Start: 10-29-2022 EGD, with monitored anesthesia care CLIP,RESO 360 ULTRA 235_17 FDA Start: 10-29-2022 EGD, with monitored anesthesia care CLIP,RESO 360 ULTRA 235_17 FDA Start: 10-29-2022 EGD, with monitored anesthesia care CLIP,RESO 360 ULTRA 235_17 FDA Start: 10-29-2022 EGD, with monitored anesthesia care CLIP,RESO 360 ULTRA 235_17 FDA Start: 10-29-2022 EGD, with monitored anesthesia care CLIP,RESO 360 ULTRA 235_17 FDA Start: 10-29-2022 EGD, with monitored anesthesia care CLIP,RESO 360 ULTRA 235_17 FDA Start: 10-29-2022 EGD, with monitored anesthesia care CLIP,RESO 360 ULTRA 235_17 FDA Start: 10-29-2022 EGD, with monitored anesthesia care CLIP,RESO 360 ULTRA 235_17 FDA Start: 10-29-2022 EGD, with monitored anesthesia care CLIP,RESO 360 ULTRA 235_17 FDA Start: 10-29-2022 EGD, with monitored anesthesia care CLIP,RESO 360 ULTRA 235_17 FDA Start: 10-29-2022 EGD, with monitored anesthesia care CLIP,RESO 360 ULTRA 235_17 FDA Start: 10-29-2022 EGD, with monitored anesthesia care CLIP,RESO 360 ULTRA 235_17 FDA Start: 10-29-2022 EGD, with monitored anesthesia care CLIP,RESO 360 ULTRA 235_17 FDA Start: 10-29-2022 EGD, with monitored anesthesia care CLIP,RESO 360 ULTRA 235_17 FDA Start: 10-29-2022 EGD, with monitored anesthesia care CLIP,RESO 360 ULTRA 235_17 FDA Start: 10-29-2022 EGD, with monitored anesthesia care CLIP,RESO 360 ULTRA 235_17 FDA Start: 10-29-2022 EGD, with monitored anesthesia care CLIP,RESO 360 ULTRA 235_17 FDA Start: 10-29-2022 EGD, with monitored anesthesia care CLIP,RESO 360 ULTRA 235_17 FDA Start: 10-29-2022 EGD, with monitored anesthesia care CLIP,RESO 360 ULTRA 235_17 FDA Start: 10-29-2022 EGD, with monitored anesthesia care CLIP,RESO 360 ULTRA 235_17 FDA Start: 10-29-2022 EGD, with monitored anesthesia care CLIP,RESO 360 ULTRA 235_17 FDA Start: 10-29-2022 EGD, with monitored anesthesia care CLIP,RESO 360 ULTRA 235_17 FDA Start: 10-29-2022 EGD, with monitored anesthesia care CLIP,RESO 360 ULTRA 235_17 FDA Start: 10-29-2022 EGD, with monitored anesthesia care CLIP,RESO 360 ULTRA 235_17 FDA Start: 10-29-2022 EGD, with monitored anesthesia care CLIP,RESO 360 ULTRA 235_17 FDA Start: 10-29-2022 EGD, with monitored anesthesia care CLIP,RESO 360 ULTRA 235_17 FDA Start: 10-29-2022 EGD, with monitored anesthesia care CLIP,RESO 360 ULTRA 235_17 FDA Start: 10-29-2022 EGD, with monitored anesthesia care CLIP,RESO 360 ULTRA 235_17 FDA Start: 10-29-2022 EGD, with monitored anesthesia care CLIP,RESO 360 ULTRA 235_17 FDA Start: 10-29-2022 EGD, with monitored anesthesia care CLIP,RESO 360 ULTRA 235_17 FDA Start: 10-29-2022 EGD, with monitored anesthesia care CLIP,RESO 360 ULTRA 235_17 FDA Start: 10-29-2022 EGD, with monitored anesthesia care CLIP,RESO 360 ULTRA 235_17 FDA Start: 10-29-2022 EGD, with monitored anesthesia care CLIP,RESO 360 ULTRA 235_17 FDA Start: 10-29-2022 EGD, with monitored anesthesia care CLIP,RESO 360 ULTRA 235_17 FDA Start: 10-29-2022 EGD, with monitored anesthesia care CLIP,RESO 360 ULTRA 235_17 FDA Start: 10-29-2022 EGD, with monitored anesthesia care CLIP,RESO 360 ULTRA 235_17 FDA Start: 10-29-2022 EGD, with monitored anesthesia care CLIP,RESO 360 ULTRA 235_17 FDA Start: 10-29-2022 EGD, with monitored anesthesia care CLIP,RESO 360 ULTRA 235_17 FDA Start: 10-29-2022 EGD, with monitored anesthesia care CLIP,RESO 360 ULTRA 235_17 FDA Start: 10-29-2022 EGD, with monitored anesthesia care CLIP,RESO 360 ULTRA 235_17 FDA Start: 10-29-2022 EGD, with monitored anesthesia care CLIP,RESO 360 ULTRA 235_17 FDA Start: 10-29-2022 EGD, with monitored anesthesia care CLIP,RESO 360 ULTRA 235_17 FDA Start: 10-29-2022 Goals Date Patient Goal Desired Activity /State Functional Status Date Assessment Result Facility 11-01-2022 Functional status Bathroom Privilege [facility] Work Phone: 11-01-2022 Functional status Bathroom [employer]ilege [facility] Work Phone: Mental Status Date Assessment Result Facility 07-26-2024 Cognitive function Voice/Name [facility] Work Phone: 05-19-2024 Cognitive function Level Of Consciousness Drowsy [facility] Work Phone: 05-19-2024 Cognitive function Voice/Name [facility] Work Phone: 04-24-2023 Cognitive function Level Of Consciousness Sedated [facility] Work Phone: 04-24-2023 Cognitive function Voice/Name [facility] Work Phone: 04-22-2023 Cognitive function Level Of Cons ciousness Awake;Alert [facility] Work Phone: 11-01-2022 Cognitive function Voice/Name [facility] Work Phone: 03-22-2022 Cognitive function Voice/Name [facility] Work Phone: Clinical Notes 02-08-2022 to 08-30-2024 Note Date & Type Note Facility 08-30-2024 Radiology Diagnostic study note [facility] Imaging Services [address] [place] [address] Thyroid MR#: [id number] Acct: [id number] Name: CATHERINE BUI Rep #: [id number] : 1975 F 48 From: Deonte Alicea MD PCP: ALEXANDREA Armando Status: REG CLI Study:Thyroid Date of Exam: 08/26/24 Exam# [id number] Ordering Dr: Brittney Suresh MD PROCEDURE: THYROID 08/26/2024 REASON FOR EXAM: FOLLOW UP Thyroid nodules. Prior resection of the left thyroid. TECHNIQUE: High-frequency thyroid ultrasound, including grayscale and color-flow images. REFERENCE LINKS: TI-RADS Chart: [email or web address] TI-RADS Calculator Tool with Reference Images: [email or web address]/ COMPARISON: Prior study dated March 07, 2023. FINDINGS: Right thyroid lobe size: 4.9 cm x 2.2 cm x 1.8 cm Left thyroid lobe has been resected. Isthmus: 0.39 cm Background parenchymal echotexture is homogeneous. Nodules: . Lobe: Right, Location: Upper pole, Size: 1 cm x 0.9 cm x 0.6 cm, Stability: Stable Composition: Mixed cystic and solid (+1) Echogenicity: Hypoechoic (+2) Margin: Smooth (+0) Shape: Wider than tall (+0) Echogenic Foci: None (+0) TI-RADS: 3 . Lobe: Right, Location: Medial adjacent to the isthmus, Size: 1.1 cm x 1.1 cm x1.4 cm, Stability: Stable Composition: Mixed cystic and solid (+1) Echogenicity: Hypoechoic (+2) Margin: Smooth (+0) Shape: Wider than tall (+0) Echogenic Foci: None (+0) TI-RADS: 2 US/Thyroid IMPRESSION: Stable examination. RECOMMENDATION: Based on most suspicious nodule. Nodule size = largest diameter Only evaluate nodule if =>5 mm. Growth > 20% in 2 dimensions = worsening. Follow up to 4 nodules. Recommend biopsy for no more than 2 nodules. Reading Location: [facility] CC: FLAT SUR[employer]ACER-C Giancarlo Posadas; Dr. Jose Suresh MD ~ Pad Cutter: Signed [facility] 08-12-2024 Radiology Diagnostic study note [facility] Imaging Services [address] [place], [place] [id number] Thoracic Spine 3 Views MR#: [id number] Acct: [id number] Name: RAMYACATHERINEAMRIK Rep #: [id number] : 1975 F 48 From: Edwige Kay DO PCP: ALEXANDREA Armando Status: REG CLI Study:Thoracic Spine 3 Views Date of Exam: 08/12/24 Exam# [id number] Ordering Dr: Catherine Messer PROCEDURE: Thoracic spine radiographs, three views 08/12/2024 REASON FOR EXAM: THORACIC SPINE PAIN TECHNIQUE: Three views of the thoracic spine were obtained. COMPARISON: None available FINDINGS: Three views of the thoracic spine were obtained. Bones are osteopenic. Surgical clips project over the right upper abdomen. Lungs are grossly clear. No acute fracture or focal subluxation of the thoracicspine. Moderate multilevel degenerative disc disease in the thoracic spine. There is mild exaggeration of the normal thoracic kyphosis. RAD/Thoracic Spine 3 Views IMPRESSION: Osteopenia. No acute bony abnormality of the thoracic spine. Moderate multilevel degenerative disc and facet disease in the thoracic spine. If there is persistent pain or clinical concern, MRI evaluation may be considered. Reading Location: [facility] CC: ALEXANDREA Posadas; Catherine Messer ~ Pad Cutter: Signed [facility] 08-12-2024 Radiology Diagnostic study note [facility] Imaging Services [address] [place], [place] [address] Hips B/L min 2 views w/ Pelvis MR#: [id number] Acct: [id number] Name: CATHERINE BUI ANN Rep #: [id number] : 1975 F 48 From: Edwige Kay DO PCP: APRIL ArmandoC Status: REG CLI Study:Hips B/L min 2 views w/ Pelvis Date of Exam: 08/12/24 Exam# [id number] Ordering Dr: Catherine Messer PROCEDURE: Pelvis and bilateral hip radiographs, five views 08/12/2024 REASON FOR EXAM: HIP PAIN VERSUS RADICULAR SYMPTOMS TECHNIQUE: Five views of the pelvis and bilateral hips were obtained. COMPARISON: None available FINDINGS: Five views of the pelvis and bilateral hips were obtained. Bones are mildly osteopenic. Mild degenerative changes lower lumbar spine. SI joints intact. No displaced pelvic fracture. No acute fracture or dislocation of either hip. Mild degenerative changes in the hip joints. RAD/Hips B/L min 2 views w/ Pelvis IMPRESSION: No acute bony abnormality of the pelvis/bilateral hips. Mild degenerative changes in the hip joints. Reading Location: [facility] CC: FLAT SURFACER-C Giancarlo Posadas; Catherine Messer ~ Pad Cutter: Signed [facility] 07-26-2024 Consult note [facility] 07-26-2024 Radiology Diagnostic study note [facility] Imaging Services [address] [facility] [facility] [place] [address] Fluor Guidance for Spine Inj MR#: [id number] Acct: [id number] Name: CATHERINE BUI ANN Rep #: [id number] : 1975 F 48 From: Jesse Saucedo DO PCP: ALEXANDREA Armando Status: REG SD Study:Fluor Guidance for Spine Inj Date of Ex am: 07/26/24 Exam# [id number] Ordering Dr: Primitivo Lockhart MD PROCEDURE: FLUOR GUIDANCE FOR SPINE INJ 07/26/2024 REASON FOR EXAM: BLOCK,CAUDAL TECHNIQUE: 2 fluoroscopic images were submitted. Fluoroscopy time was 6.7 seconds. Peak skin radiation dose was 2.6 mGy. COMPARISON: None FINDINGS: See impression RAD/Fluor Guidance for Spine Inj IMPRESSION: Fluoroscopic guidance provided during sacral injection. See operative report for further details. Reading Location: [facility] CC: FLAT SURF[employer]ER-C Giancarlo Posadas; Dr. Primitivo Lockhart MD ~ Pad Cutter: Signed [facility] 07-26-2024 Consult note [facility] 07-26-2024 Procedure note [facility] 07-26-2024 Consult note [facility] 07-06-2024 Evaluation note Diagnosis Onset Date Resolution MGUS (monoclonal gammopathy of unknown significance) chronic July 06, 2024 1:59pm Constipation acute September 09 1:47pm GERD (gastroesophageal reflux disease) acute September 09, 2024 1 :47pm GI bleed acute September 09, 2024 1:47pm Fatty liver chronic September 09 1:47pm [facility] Work Phone: 1(366) 309-363301-29-2025 Evaluation note* Diagnosis Onset Date Resolution Status Admit Date Anemia acute May 19, 2024 6:15am Dysphagia acute May 19, 2024 6:15am GI bleed acute May 19, 2024 6:15am History of gastric bypass acute May 19, 2024 6:15am MGUS (monoclonal gammopathy of unknown significance) chronic June 192024 1:59pm [facility] Work Phone: 1(645) 557-540501-29-2025 [facility] Medical Records Department [address] [place] [address] History Physical Exam 05/19/24 0744 MR#: [id number] Acct: [id number] Name: CATHERINE BUI ANN Rep #: [id number] : 1975 48 From: Ramez Villatoro DO PCP: ALEXANDREA Armando Status:[facility] Location: [place] [address] HPI - General General Date of Admission: 05/19/24 Date of Service: 05/19/24 HPI Narrative CATHERINE BUI, is a 48 F who presents for endoscopic evaluation trouble swallowing, constipation, diarrhea, abdominal pain, and nausea. BM 2-3 days a week. Continues semaglutide, ursodiol, pantoprazole, sucralfate, and Linzess daily. WSA established for dysphagia.?EGD 03.22.22???Milvia-en-Y gastrojejunostomy; non-bleeding gastric ulcer, mild gastritis; irregular Zline 33cm; tortuous esophagus. 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 *[facility] hospitalization 10.29.22-11.01.22 with syncope/fall and BRBPR with anemia, acute migraine, and chronic conditions of obesity s/p milvia-en0y gastrojejunostomy, HTN, hyperglycemia (A1c 5.8), hypokalemia.?CT abd/pel 10.29.22 with contrast???hepatic steatosis; s/p cholecystectomy and gastric bypass; distal gastric/duodenal wall thickening?EGD 10.29.22???Milvia-en-Y gastrojejunostomy with ulceration, heater probe; two 3mm bleeding AVM, heater probe. No specimens.??? OV 04.11.23- Pt stable since hosp visit in October. The last few weeks has had an increase in mid abdominal pain. Will sometimes feel nauseous when eating. Sometimes eating makes the abdominal pain worse. BM are normal. EGD and Colonoscopy 04.24.23 EGD - Z-line variable, 39 cm from the incisors. Biopsied. Milvia-en-Y gastrojejunostomy with gastrojejunal anastomosis characterized by erythema. Biopsied. Normal examined jejunum. Biopsied. Colon - Preparation of the colon was fair. Diverticulosis in the recto-sigmoid colon and in the sigmoid colon. Stool in the recto-sigmoid colon, in the sigmoid colon and in the ascending colon. The entire examined colon is normal on direct and retroflexion views. The examination was otherwise normal on direct and retroflexion views. No specimens collected. OV 5.24.24 Pt reports that she is having a bm once a day, but does not feel like she is having a complete bm. Pt reports that she bloats after she every time eats, no matter what she eats. Pt cont inues with buspirone, linzess, pantoprazole, and sucralfate. OV 11..24 Pt reports alternating bm with constipation and diarrhea. SHe continues with Linzess and miralax. SHe feels stable and like it has improved overall. She has been having stabbing epigastric pain that feel similar to when she had an ulcer. SHe takes PPI BID and sucralfate. sucralfate 1 g PO TIDAC 30 days 90 tabs 11RF pantoprazole 40 mg PO BID 120 TABLETS 3RF PFSH Medical History Blood disorder Syncope MGUS (monoclonal gammopathy of unknown significance) Colon cancer screening GI bleed Mass of skin of left lower leg Wears glasses Thyroid disease Low iron Migraine headache History of hiatal hernia History of IBS Non-smoker Vocal cord dysfunction Hypertension URI (upper respiratory infection) Suspected COVID-19 virus infection Breast cancer screening Localized swelling on left hand Chronic constipation Elevated blood pressure reading in office without diagnosis of hypertension Hemangioma Preventative health care Chronic left hip pain Right thyroid nodule GERD (gastroesophageal reflux disease) Essential hypertension DM 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 Home Medications ???Medication ???Instructions ???Recorded ???Last Taken ???Type calcium carbonate (Calcium 600) 600 mg PO DAILY 09/25/20 05/18/24 History cholecalciferol (vitamin D3) 10 10 mcg PO DAILY 09/25/20 05/18/24 History mcg (400 unit) capsule cyanocobalamin (vitamin B-12) 50 50 mcg PO DAILY 09/25/20 05/18/24 History mcg tablet (Vitamin B-12) magnesium 200 mg tablet 200 mg PO DAILY 09/25/20 05/18/24 History potassium 99 mg PO DAILY 12/15/20 05/18/24 History sumatriptan succinate 50 mg tablet See Rx Instructions PO .COMPLEX 07/24/21 05/18/24 Rx (Imitrex) #14 tabs linaclotide 290 mcg capsule 290 mcg PO DAILY PRN PRN Diarrhea 09/05/22 05/18/24 Rx (Linzess) #90 caps cyclobenzaprine 10 mg tablet See Rx Instructions .Route 01/29/23 Unknown Rx .COMPLEX #60 tabs ferrous sulfate 325 mg (65 mg 325 mg PO DAILY 04/01/23 05/15/24 History iron) tablet amlodipine 5 mg tablet 5 mg PO QHS 04/18/23 05/18/24 History fexofenadine 180 mg tablet 180 mg PO DAILY 04/18/23 05/18/24 History (Aller-Fex) hydroxyzine HCl 25 mg tablet 25 mg PO PRN PRN itching 04/18/23 Unknown History buspirone 5 mg (more content not included)...[facility] 04-09-2024 Evaluation note* Diagnosis Onset Date Resolution Status Admit Date Degenerative disc disease at L5-S1 level acute April 09 1:39pm Thoracic radiculopathy acute 2023 1:39pm Anemia acute May 19, 2024 6:15am Dysphagia acute May 19, 2024 6:15am GI bleed acute May 19, 2024 6:15am History of gastric bypass acute May 19, 2024 6:15am MGUS (monoclonal gammopathy of unknown significance) chronic June 1:59pm [facility] Work Phone: 1(134) 979-765501-02-2024 Discharge summary Author Cesar Lloyd [facility] April 22, 2023 1:16pm Note Date/Time April 22, 2023 9: 46am [facility] Medical Records Department [address] [place] [address] Emergency Department Summary 04/22/23 MR#: [id number] Acct: [id number] Name: CATHERINE BUI Rep #:[id number] : 1975 47 From: Cesar Lloyd MD PCP: ALEXANDREA Armando Status:REG ER Location: ED HPI History of Present Illness Chief Complaint: Chest Pain Informant: patient Onset/Context/Timing Onset: Yesterday Activity at onset: activity on onset and sleep Timing: Intermittent Quality: Positive for Heaviness Location: Substernal (and left parasternal, radiating into LUE) Current Severity: Moderate Maximum Severity: Moderate Worsened By: Nothing; Not Worsened By Breathing Relieved By: Nothing Associated Symptoms: Positive for Dyspnea and Lightheadedness; Negative for Nausea, Vomiting, Diaphoresis, Cough, Fever, Acid Reflux or Palpitations Narrative Narrative: 47-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 Not had thisbefore. No known history of heart problems but she does have a history of acid reflux and was diagnosed with MGUS. She takes a PPI. This was diagnosed by EGD. She denies any pleuritic nature of this discomfort nor leg pain or swelling recently, no history of DVT or PE, no recent long travel, hospitalization, or surgery. [facility] Medical History Blood disorder Breast cancer screening Chronic constipation Chronic left hip pain Colon cancer screening DM 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 Elevated blood pressure reading in office without diagnosis of hypertension Essential hypertension GERD (gastroesophageal reflux disease) GI bleed Hemangioma History of hiatal hernia History of IBS Hypertension Localized swelling on left hand Low iron Mass of skin of left lower leg MGUS (monoclonal gammopathy of unknown significance) Migraine headache Non-smoker Preventative health care Right thyroid nodule Suspected COVID-19 virus infection Syncope Thyroid disease URI (upper respiratory infection) Vocal cord dysfunction Wears glasses Home Medications calcium carbonate 600 mg calcium (1,500 mg) tablet (Calcium) 600 mg PO DAILY 09/25/20 [History Last Taken Unknown] cholecalciferol (vitamin D3) 10 mcg (400 unit) capsule 10 mcg PO DAILY 09/25/20 [History Last Taken Unknown] cyanocobalamin (vitamin B-12) 50 mcg tablet (Vitamin B-12) 50 mcg PO DAILY 09/25/20 [History Last Taken Unknown] loratadine 10 mg capsule 10 mg PO DAILY 09/25/20 [History Last Taken Unknown] magnesium 200 mg tablet 200 mg PO DAILY 09/25/20 [History Last Taken Unknown] potassium 99 mg PO DAILY 12/15/20 [History Last Taken Unknown] sumatriptan succinate 50 mg tablet (Imitrex) See Rx Instructions PO .COMPLEX #14tabs 07/24/21 [Rx Last Taken Unknown] linaclotide 290 mcg capsule (Linzess) 290 mcg PO DAILY PRN PRN Diarrhea #90 caps09/05/22 [Rx Last Taken Unknown] pantoprazole 40 mg tablet,delayed release (Protonix) 40 mg PO BID 60 days #120 tabs 11/29/22 [Rx Last Taken Unknown] cyclobenzaprine 10 mg tablet See Rx Instructions .Route .COMPLEX #60 tabs 01/29/23 [Rx Last Taken Unknown] ferrous sulfate 325 mg (65 mg iron) tablet 325 mg PO DAILY 04/01/23 [History Last Taken Unknown] sucralfate 1 gram tablet 1 g PO TIDAC 30 days #90 tabs 04/03/23 [Rx Last Taken Unknown] amlodipine 5 mg tablet 5 mg PO QHS 04/18/23 [History Last Taken Unknown] buspirone 5 mg tablet 5 mg PO BID 04/18/23 [History Last Taken Unknown] fexofenadine 180 mg tablet (Aller-Fex) 180 mg PO DAILY 04/18/23 [History Last Taken Unknown] hydroxyzine HCl 25 mg tablet 25 mg PO PRN PRN itching 04/18/23 [History Last Taken Unknown] Allergy/AdvReac Type Severity Reaction Status Date / Time NSAIDS (Non-Steroidal Allergy unknown Verified 04/18/23 10:02 Anti-Inflamma Penicillins Allergy Rash Verified 04/18/23 10:02 sulfamethoxazole Allergy rash Verified 04/18/23 10:02 [From Bactrim] trimethoprim [From Bactrim] Allergy rash Verified 04/18/23 10:02 Family History Aunt Cancer uterine cancer Brother Asthma Sister Autoimmune disorder Other Breast cancer Diabetes Heart disease Hypertension Myocardial infarction Parkinson disease Surgical History Gastric bypass status for obesity H/O section History of esophagogastroduodenoscopy (EGD) History of hysterectomy History of surgical removal of ganglion cyst Hx of cholecystectomy S/P thyroid surgery Social History Smoking Status: Never smoker ROS ROS ED Constitutional Constitutional ED: Denies chills or fever(s) Eyes Eyes: Denies change in vision or diplopia ENT ENT ED: Denies rhinorrhea or sore throat Cardiovascular Cardiovascular: Reports chest pain, lightheadedness and radiating jaw, neck or arm pain; Denies leg edema or palpitations Respiratory/Chest Respiratory/Chest: Reports dyspnea; Denies cough or dyspnea on exertion Gastrointestinal Gastrointestinal: Denies abdominal pain, diarrhea, nausea or vomiting Genitourinary Genitourinary ED: Denies dysuria or hematuria Musculoskeletal Musculoskeletal: Denies back pain or neck pain Integumentary Denies abscess or rash Neurologic Neurologic: Denies headache(s), paresthesias or weakness Psychiatric Psychiatric: Reports anxiety; Denies suicidal thoughts EXAM Physical Exam Const Vital Signs: 04/22/23 09:19 04/22/23 09:58 04/22/23 11:37 Temperature 98.1 F Temperature Source Temporal Pulse Rate 89 74 Respiratory Rate 16 24 H Blood Pressure 147/92 H 122/79 H Blood Pressure Mean 110 93 Pulse Ox 97 99 96 Oxygen Delivery Method Room Air Room Air 04/22/23 11:49 Temperature Temperature Source Pulse Rate 76 Respiratory Rate Blood Pressure 119/85 H Blood Pressure Mean Pulse Ox Oxygen Delivery Method Positive well nourished and well developed General Appearance ED: well developed and NAD HEENT Reports moist mucous membranes normocephalic and atraumatic Eyes PERRL and EOMs intact bilaterally Neck full ROM and supple Resp normal respiratory effort and clear to auscultation bilaterally Cardio regular rate, regular rhythm and no murmurs GI non-tender and non-distended Auscultation: normoactive bowel sounds Palpation: soft Back/Spine no CVA tenderness General Back: other FROM Extremity normal to inspection General Extremety ED: Negative for edema, pulses abnormal or tenderness General Extremity: Negative for edema or pulses abnormal Neuro oriented x3, CN's II-XII intact bilaterally and no sensory deficits noted Sensorium / Orientation: awake and alert Motor Exam: strength 5/5 throughout Psych Mood & Affect: tearful Skin no rashes or lesions noted and no wounds Heart Score History: Moderately Suspicious ECG: Normal Age: </= 45 years Risk Factors: 1 or 2 Risk Factors Troponin: </= Normal Limit Score: 2 MDM MDM MDM Narrative Medical decision making narrative: Patient has normal EKG and initial set of enzymes are normal in single digits, we repeated these 2 hours later and has gone from 4-5, which is basically negative workup for ACS. In the meantime she was given a GI cocktail which helped a little with the discomfort but she still had left upper extremity discomfort, she then was amenable to trying nitroglycerin and considering esophageal spasm which is more likely to help this quicker than calcium channel blockers, she did have further improvement but noticed discomfort is still mildly persistent. Given 2 sets of negative enzymes a low heart score normal EKG, and a 1 view chest x-ray that on my interpretation is normal-appearing, I do not think she needs further emergent workup here. Her PERC score is 0, ruling out pulmonary embolus in context of this discomfort which is really inconsistent with PE generally anyway. My suspicion is that this is esophageal in nature, mimicking ACS. At this time she is stable for discharge home. She was at work when she came here to be offered a work note, but if she wants to goback to work that would be okay with me as well. Advised to follow-up with her doctor. Lab Data Attestation: I reviewed the patient's lab results. Labs: Laboratory Results - last 24 hr 04/22/23 04/22/23 10:00 12:30 WBC 9.9 RBC 4.81 Hgb 14.3 Hct 42.9 MCV 89.2 MCH 29.7 MCHC 33.3 RDW Std Deviation 43.2 RDW Coeff of Cristin 13.1 Plt Count 316 MPV 10.2 Immature Gran % (Auto) 0.500 Neut % (Auto) 76.8 H Lymph % (Auto) 16.7 L Terrell % (Auto) 4.7 Eos % (Auto) 0.4 Baso % (Auto) 0.9 Absolute Neuts (auto) 7.6 Absolute Lymphs (auto) 1.65 Nucleated RBC % 0 Sodium 142 Potassium 3.9 Chloride 108 H Carbon Dioxide 27.0 Anion Gap 7 BUN 7 Creatinine 0.57 Estim Creat Clear Calc 107.63 Est GFR (MDRD) Af Amer 147 Est GFR (MDRD) Non-Af 121 BUN/Creatinine Ratio 12.2 Glucose 106 Calcium 9.0 Troponin I High Sens 4 5 Radiography Diagnostic Testing: Clinical Impression(s) from Imaging Studies Chest X-Ray 04/22/23 09:41 IMPRESSION: No interval change and no acute or active cardiopulmonary disease. Electronically Signed: Daniel Wheat MD at 10:27 EST Reading Location ID and State: [facility] [place] , Service support , Rhythm Strip Rhythm Strip: Sinus Rhythm Rate: 75 Ectopy: None EKG Initial EKG: Attestation: I personally reviewed and interpreted this EKG as follows: Interpretation: Sinus Rhythm and No Acute Injury Pattern Comments: Normal EKG Prior EKG tracings: available for review Prior: Unchanged Discharge Plan Triage Chief Complaint: Chest Pain ED Provider: Cesar Lloyd Dx/Rx/DC Orders Clinical Impression: Non-cardiac chest pain Instructions: ED Chest Pain, Noncardiac Prescriptions: No Action Vitamin B-12 50 mcg tablet 50 mcg PO DAILY calcium carbonate [Calcium 600] 600 mg calcium (1,500 mg) tablet 600 mg PO DAILY cholecalciferol (vitamin D3) 10 mcg (400 unit) capsule 10 mcg PO DAILY magnesium 200 mg tablet 200 mg PO DAILY loratadine 10 mg capsule 10 mg PO DAILY potassium 99 mg PO DAILY ferrous sulfate 325 mg (65 mg iron) tablet 325 mg PO DAILY buspirone 5 mg tablet 5 mg PO BID Patient Comments: TAKE 1 TABLET BY MOUTHTTWICE DAILY fexofenadine [Aller-Fex] 180 mg tablet 180 mg PO DAILY hydroxyzine HCl 25 mg tablet 25 mg PO PRN PRN (Reason: itching) Patient Comments: TAKE 1 TABLET BY MOUTH 3CTIMES A DAY NEEDED FOR ITCHING amlodipine 5 mg tablet 5 mg PO QHS Rx Instructions: TAKE 1 TABLET BY MOUTH ONCE DAILY sumatriptan succinate [Imitrex] 50 mg tablet See Rx Instructions PO .COMPLEX Qty: 14 2RF Rx Instructions: take 1 tab at onset of headache; if no relief may repeat 1 tab after at least 2 hrs; max = 4 tabs/24 hr PO Linzess 290 mcg capsule 290 mcg PO DAILY PRN PRN (Reason: Diarrhea) Qty: 90 1RF pantoprazole [Protonix] 40 mg tablet,delayed release (DR/EC) 40 mg PO BID 60 Days Qty: 120 8RF cyclobenzaprine 10 mg tablet See Rx Instructions .ROUTE .COMPLEX Qty: 60 2RF Dose Instruction: TAKE 1 TABLET BY MOUTH 3 TIMES A DAY NEEDED FOR MUSCLE SPASMS Rx Instructions: TAKE 1 TABLET BY MOUTH 3 TIMES A DAY NEEDED FOR MUSCLE SPASMS sucralfate 1 gram tablet 1 g PO TIDAC 30 Days Qty: 90 0RF Primary Care Provider: Giancarlo Posadas NP Referrals: Giancarlo Posadas NP, FLAT SURFACER-C [Primary Care Provider] - As soon as possible Disposition Disposition: Home, Self Care What to do if you have Problems For any increased pain, shortness of breath, bleeding, nausea or vomiting, chestpain, or any unexpected problems, contact your Primary Care Provider. Call [facility] ([phone]) or report to the closest Emergency Room. Call 911 if necessary. 04/22/23 1316 <Electronically signed by Cesar Lloyd MD> Cosigner Signature (if applicable): CC: FLAT SURFACER-C Giancarlo Posadas ~ Signed [facility] Work Phone: 1(527) 685-383009-05-2023 Discharge summary Author Jarret Ramirez [facility] December 24, 2022 10:40am Note Date/Time December 24, 2022 10:38am [facility] Physical Therapy [facility] [address] [place] [address]. [address] [place] [address] / REHABILITATION SERVICES DISCHARGE SUMMARY MR#: [id number] Acct: [id number] Name: CATHERINE BUI Rep #: [id number] : 1975 47 From: Cert. SHRUTI Wise, OCS Referring DrAlicia: TL Mccracken Status: REG RCR Insurance: [employer]/[facility] Patient Information Patient Information: CATHERINE BUI was seen in my office for initial evaluation on 08/23/22. The following Plan of Care was established for this patient: POC Established Initial Frequency: 2x /Week Initial Duration: 6 Weeks Anticipated Interventions Patient/Client Instruction: Educate patient on: Condition and Plan of Care For the Purpose of:: To decrease pain, To increase ROM, To improve nutrient delivery to tissue, To increase oxygenation perfusion, To improve muscle performance and motor function, To increase tolerance to activity/condition/position, To improve ability of physical actions for home/community/work/leisure, To improve health of tissue, To decrease soft tissue restriction and To increase flexibility/ROM Therapeutic Exercise to Include: Strength training, Postural training, Passive ROM and Active ROM For the Purpose of:: To decrease pain, To increase ROM, To improve muscle performance and motor function, To improve ability to perform ADL's, To increasetolerance to activity/condition/position, To improve ability of physical actionsfor home/community/work/leisure, To improve health of tissue, To decrease soft tissue restriction, To increase flexibility/ROM and To prevent re-injury TENS: Yes IF ES: Yes Cryotherapy (ice pack, ice massage): Yes Thermo therapy (hot pack): Yes Ultrasound (thermal/non thermal): Yes For the Purpose of:: To decrease pain, To improve nutrient delivery to tissue, To increase oxygenation perfusion, To improve health of tissue and To decrease soft tissue restriction Last Seen Last Seen: This patient was last seen in our office . Pertinent comments regarding their Physical therapy will appear below: Patient seen for Achilles tendonitis ,MRI showed mod scar tissue tendonopathy doing well with PT thus d/c At this point I will be discontinuing this patient from physical therapy. I would be happy to see this patient again in the future if found appropriate by the physician. Thank you! Jarret Ramirez PT, Cert T, OCS Balance/Gait/Functional tests Balance/Special Test Scores Lower Extremity Functional Score: 66 <Electronically signed by Jarret Ramirez PT, Cert. SHRUTI, OCS> 12/24/22 1040 CC: TL Mccracken; Dr. Hermelinda Castillo MD ~ PATRICIA Signed [facility] Work Phone: [phone]) [phone] Consult note Author Rosibel Castellon [facility] November 01, 2022 11:17am Note Date/Time November 01, 2022 11:1 7am [facility] Medical Records Department [address] [place] [address] Counseling Note - Pharmacy 11/01/22 1116 MR#: [id number] Acct: [id number] Name: CATHERINE BUI Rep #:[id number] : 1975 46 From: Rosibel Castellon PCP: Dr. Hermelinda Castillo MD Status:A DM IN Y [facility] has performed discharge medication reconciliation and counseling for this patient. The patient was counseled on the following discharge medications and changes in medications for homegoing were reviewed. 1. PROTONIX 2. CARAFATE - BID TO TID DOSING The Reason for Use, instructions for use, and potential side effects were reviewed for all new medications. The patient's questions regarding all of their medications were answered. The patient was able to verbally demonstrate an understanding of their dischargemedications. The patient's discharge medication list was reviewed for discrepancies and discrepancies were resolved. patient counselled by Neftali Clarke PharmD Candidate Medications at Discharge Home Medications calcium carbonate 600 mg calcium (1,500 mg) tablet (Calcium) 600 mg PO DAILY 09/25/20 cholecalciferol (vitamin D3) 10 mcg (400 unit) capsule 10 mcg PO DAILY 09/25/20 cyanocobalamin (vitamin B-12) 50 mcg tablet (Vitamin B-12) 50 mcg PO DAILY 09/25/20 loratadine 10 mg capsule 10 mg PO DAILY 09/25/20 magnesium 200 mg tablet 200 mg PO DAILY 09/25/20 multivitamin 1 tab PO DAILY 09/25/20 ascorbic acid (vitamin C) 1,000 mg tablet 1 g PO DAILY 12/15/20 ferrous sulfate 325 mg (65 mg iron) tablet 325 mg PO TID 12/15/20 potassium 99 mg PO DAILY 12/15/20 sumatriptan succinate 50 mg tablet (Imitrex) See Rx Instructions PO .COMPLEX #14tabs 07/24/21 cyclobenzaprine 10 mg tablet See Rx Instructions .Route .COMPLEX #60 tabs 08/26/22 linaclotide 290 mcg capsule (Linzess) 290 mcg PO DAILY PRN PRN Diarrhea #90 caps09/05/22 amlodipine 5 mg tablet See Rx Instructions .Route .COMPLEX #90 tabs 10/25/22 pantoprazole 40 mg tablet,delayed release (Protonix) 40 mg PO BID 60 days #120 tabs 11/01/22 sucralfate 1 gram tablet 1 g PO TIDAC 30 days #90 tabs 11/01/22 11/01/22 1117 <Electronically signed by Rosibel Castellon > Date _ Rosibel Castellon Cosigner Signature (if applicable): Date CC: ~ Signed [facility] Work Phone: [phone] Discharge summary Author Ganesh Bell [facility] November 01, 2022 10:04am Note Date/Time November 01, 2022 10:0 0am [facility] Medical Records Department [address] [place] [id number] Discharge Summary 11/01/22 0959 MR#: [id number] Acct: [id number] Name: CATHERINE BUI ANN Rep #:[id number] : 1975 46 From: Ganesh Bell MD PCP: Dr. Hermelinda Castillo MD Status:A DM IN Location: [place] [address] Providers Date of Admission: 10/29/22 Date of Discharge: 11/01/22 Primary Care Physician: Dr. Hermelinda Castillo MD Consultations 10/29/22 12:42 Consult: Gastroenterology Routine Consulting Provider: [facility] Reason for Consult: GI bleed EMERGENT Consult: No MD Notified: Yes Date Notified: 10/29/22 Time Notified: 12:03 Method of Notification: Verbal Reason For Visit: GI BLEED Diagnosis Discharge Diagnosis (1) Bright red blood per rectum: Status: Acute Code(s): K62.5 - Hemorrhage of anus and rectum Plan Patient is a 46-year-old lady who presented with hematochezia and hematemesis 1. Acute GI bleed ? Patient underwent upper GI endoscopy by Dr. Villatoro on 10/29/2022 findings included - Normal esophagus. - Milvia-en-Y gastrojejunostomy with gastrojejunal anastomosis characterized by ulceration. Injected. 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 Treated with a heater probe. - Red blood in the gastric body. Patient on PPI ? 10/31/2022; hemoglobin did drop to 7.6 plan is for patient to undergo repeat EGD ?11/01/2021;Patient underwent repeat EGD on 10/31/2022 given her continued drop inher hemoglobin levels. Findings included normal esophagus. Milvia-en-Y gastrojejunostomy with gastrojejunal anastomosis characterized by a hemorrhagicappearance and ulceration. Treated with argon plasma coagulation (APC). Normalexamined jejunum. 2. Anemia ? Secondary to acute blood loss anemia from patient angiodysplastic lesion in the jejunum as well as ulceration from her Milvia-en-Y gastrojejunostomy site. Patient has been typed and screened yet to be transfused. Plan is to transfuse if hemoglobin falls below 7 or patient is deemed to be symptomatic 3. Acute migrainous headache ? Patient treated with Phenergan for symptomatic relief 4. Class I obesity with BMI of 35 With previous Milvia-en-Y gastrojejunostomy 5. Essential hypertension ? On amlodipine held on admission plan is to resume prior to discharge 6. Hyperglycemia ? Ordered hemoglobin A1c to rule out diabetes. Hemoglobin A1c was 5.8 not consistent with diabetes mellitus type 2 7. DVT prophylaxis ? Low risk moreover contraindicated given patient GI bleed 8. Hypokalemia -Corrected per protocol Time spent in the patient's overall evaluation,decision-making process, review of diagnostic data, adjustment of management, discussion with other providers, nursing nursing and ancillary staff involved in patient's care documentation, 35 Minutes Medications at Discharge Home Medications calcium carbonate 600 mg calcium (1,500 mg) tablet (Calcium) 600 mg PO DAILY 09/25/20 cholecalciferol (vitamin D3) 10 mcg (400 unit) capsule 10 mcg PO DAILY 09/25/20 cyanocobalamin (vitamin B-12) 50 mcg tablet (Vitamin B-12) 50 mcg PO DAILY 09/25/20 loratadine 10 mg capsule 10 mg PO DAILY 09/25/20 magnesium 200 mg tablet 200 mg PO DAILY 09/25/20 multivitamin 1 tab PO DAILY 09/25/20 ascorbic acid (vitamin C) 1,000 mg tablet 1 g PO DAILY 12/15/20 ferrous sulfate 325 mg (65 mg iron) tablet 325 mg PO TID 12/15/20 potassium 99 mg PO DAILY 12/15/20 sumatriptan succinate 50 mg tablet (Imitrex) See Rx Instructions PO .COMPLEX #14tabs 07/24/21 cyclobenzaprine 10 mg tablet See Rx Instructions .Route .COMPLEX #60 tabs 08/26/22 linaclotide 290 mcg capsule (Linzess) 290 mcg PO DAILY PRN PRN Diarrhea #90 caps09/05/22 amlodipine 5 mg tablet See Rx Instructions .Route .COMPLEX #90 tabs 10/25/22 pantoprazole 40 mg tablet,delayed release (Protonix) 40 mg PO BID 60 days #120 tabs 11/01/22 sucralfate 1 gram tablet 1 g PO TIDAC 30 days #90 tabs 11/01/22 Physical Exam Narrative GENERAL: cooperative HEENT: Atraumatic; normocephalic EYES; Anicteric, Normal Conjunctiva NECK; supple, normal thyroid, RESPIRATORY: Diminished to auscultation CARDIOVASCULAR: Regular S1 S2, GI: soft, normoactive bowel sounds, : No Renal angle tenderness; EXTREMITIES: No edema, no clubbing, MUSCULOSKELETAL: no muscle wasting NEURO: Awake; no lateralizing signs. SKIN: No Rash PSYCH; Flat affect Weight / BMI Weight Weight: 92.6 kg Body Mass Index (BMI) 35.0 ABG / Lab / Microbiology Data 11/01/22 05:21 11/01/22 05:21 Laboratory: Laboratory Results - last 24 hr 10/31/22 06:42: Hemoglobin A1c 5.2 11/01/22 05:21: WBC 8.1, RBC 2.54 L, Hgb 7.8 L, Hct 23.5 L, MCV 92.5, MCH 30.7, MCHC 33.2, RDW Std Deviation 42.1, RDW Coeff of Cristin 12.7, Plt Count 255, MPV 11.0, Immature Gran % (Auto) 0.700, Neut % (Auto) 64.7, Lymph % (Auto) 26.0, Terrell % (Auto) 6.0, Eos % (Auto) 1.6, Baso % (Auto) 1.0, Absolute Neuts (auto) 5.3, Absolute Lymphs (auto) 2.12, Nucleated RBC % 0, Sodium 142, Potassium 3.0 L, Chloride 110 H, Carbon Dioxide 24.0, Anion Gap 8, BUN 7, Creatinine 0.53 L, Estim Creat Clear Calc 116.97, Est GFR (MDRD) Af Amer 162, Est GFR (MDRD) Non-Af134, BUN/Creatinine Ratio 13.3, Glucose 83, Calcium 7.9 L, Phosphorus 3.5, Magnesium 1.8 D/C Instructions Discharge Diet: No restrictions Discharge Activity: Return to Normal Activity Call your doctor if you observe: Fever of 101 or Higher, Shortness of breath, Fainting spells and Chest pain Meaningful Use Info Meaningful Use Diagnoses (Choose all that apply): None applicable Discharge Plan Admission Admit Date/Time: 10/29/22 11:56 Attending Provider: Ganesh Bell Primary Care Provider: Hermelinda Castillo Consulting Providers: Giancarlo Boyle Discharge Orders/Prescriptions Prescriptions: New sucralfate 1 gram Tablet 1 g PO TIDAC 30 Days Qty: 90 0RF pantoprazole [Protonix] 40 mg tablet,delayed release (DR/EC) 40 mg PO BID 60 Days Qty: 120 0RF Continued Vitamin B-12 50 mcg tablet 50 mcg PO DAILY calcium carbonate [Calcium 600] 600 mg calcium (1,500 mg) tablet 600 mg PO DAILY cholecalciferol (vitamin D3) 10 mcg (400 unit) capsule 10 mcg PO DAILY multivitamin Tablet 1 tab PO DAILY magnesium 200 mg tablet 200 mg PO DAILY loratadine 10 mg capsule 10 mg PO DAILY ascorbic acid (vitamin C) 1,000 mg tablet 1 g PO DAILY ferrous sulfate 325 mg (65 mg iron) tablet 325 mg PO TID potassium 99 mg PO DAILY sumatriptan succinate [Imitrex] 50 mg tablet See Rx Instructions PO .COMPLEX Qty: 14 2RF Rx Instructions: take 1 tab at onset of headache; if no relief may repeat 1 tab after at least 2 hrs; max = 4 tabs/24 hr PO cyclobenzaprine 10 mg tablet See Rx Instructions .ROUTE .COMPLEX Qty: 60 2RF Dose Instruction: TAKE 1 TABLET BY MOUTH 3 TIMES A DAY NEEDED FOR MUSCLE SPASMS Rx Instructions: TAKE 1 TABLET BY MOUTH 3 TIMES A DAY NEEDED FOR MUSCLE SPASMS Linzess 290 mcg capsule 290 mcg PO DAILY PRN PRN (Reason: Diarrhea) Qty: 90 1RF amlodipine 5 mg tablet See Rx Instructions .ROUTE .COMPLEX Qty: 90 0RF Dose Instruction: TAKE 1 TABLET BY MOUTH ONCE DAILY Rx Instructions: TAKE 1 TABLET BY MOUTH ONCE DAILY Discontinued sucralfate [Carafate] 100 mg/mL suspension 10 ml PO BID Qty: 200 1RF Referrals / Follow Up: Hermelinda Castillo MD [Primary Care Provider] - Within 2 Weeks FriendRamez DO [Med Staff - Active Staff] - Within 2 Weeks Disposition Disposition (needs filled in before D/C Order can be placed): Home, Self Care Charges/Coding Visit Charges Inpatient E&M: 59706 Disch Hosp >30min 11/01/22 1004 <Electronically signed by Ganesh Bell MD> Cosigner Signature (if applicable): CC: Dr. Ganesh Bell MD; Dr. Hermelinda Castillo MD~ Signed [facility] Work Phone: [phone] Progress note Author Ganesh Bell [facility] November 01, 2022 9:42am Note Date/Time November 01, 2022 8:07 am [facility] Medical Records Department [address] [place] [address] Progress Note - Hospitalist 11/01/22 0803 MR#: [id number] Acct: [id number] Name: CATHERINE BUI Rep #:[id number] : 1975 46 From: Ganesh Bell MD PCP: Dr. Hermelinda Castillo MD Status:A DM IN Location: [place] [address]- Reason for Visit Reason for Visit: Diagnoses Anemia, unspecified (10/29/22) Hemorrhage of anus and rectum (10/29/22) Hematemesis (10/29/22) Subjective Subjective Patient underwent repeat EGD on 10/31/2022 given her continued drop in her hemoglobin levels. Findings included normal esophagus. Milvia-en-Y gastrojejunostomy with gastrojejunal anastomosis characterized by a hemorrhagicappearance and ulceration. Treated with argon plasma coagulation (APC). Normalexamined jejunum. Objective Data Objective Data Vital Signs: Vital Signs Temp Pulse Resp BP Pulse Ox O2 Del Method 98.0 F 82 17 128/82 H 98 Room Air 11/01/22 06:00 11/01/22 06:00 11/01/22 06:00 11/01/22 06:00 11/01/22 06:00 11/01/22 07:57 Oxygen Delivery Method Room Air Weight: 92.6 kg Body Mass Index (BMI) 35.0 Intake & Output: Intake and Output for Last 24 Hours 10/30/22 10/31/22 11/01/22 23:59 23:59 23:59 Intake Total 2097.00 / 2097.00 2200 / 2200 1100 / 1100 Balance 2097.00 / 2097.00 2200 / 2200 1100 / 1100 Lab / Micro Data 11/01/22 05:21 11/01/22 05:21 Labs: Laboratory Results - last 24 hr 10/31/22 06:42: Hemoglobin A1c 5.2 11/01/22 05:21: WBC 8.1, RBC 2.54 L, Hgb 7.8 L, Hct 23.5 L, MCV 92.5, MCH 30.7, MCHC 33.2, RDW Std Deviation 42.1, RDW Coeff of Cristin 12.7, Plt Count 255, MPV 11.0, Immature Gran % (Auto) 0.700, Neut % (Auto) 64.7, Lymph % (Auto) 26.0, Terrell % (Auto) 6.0, Eos % (Auto) 1.6, Baso % (Auto) 1.0, Absolute Neuts (auto) 5.3, Absolute Lymphs (auto) 2.12, Nucleated RBC % 0, Sodium 142, Potassium 3.0 L, Chloride 110 H, Carbon Dioxide 24.0, Anion Gap 8, BUN 7, Creatinine 0.53 L, Estim Creat Clear Calc 116.97, Est GFR (MDRD) Af Amer 162, Est GFR (MDRD) Non-Af134, BUN/Creatinine Ratio 13.3, Glucose 83, Calcium 7.9 L, Phosphorus 3.5, Magnesium 1.8 Physical Exam Narrative GENERAL: cooperative HEENT: Atraumatic; normocephalic EYES; Anicteric, Normal Conjunctiva NECK; supple, normal thyroid, RESPIRATORY: Diminished to auscultation CARDIOVASCULAR: Regular S1 S2, GI: soft, normoactive bowel sounds, : No Renal angle tenderness; EXTREMITIES: No edema, no clubbing, MUSCULOSKELETAL: no muscle wasting NEURO: Awake; no lateralizing signs. SKIN: No Rash PSYCH; Flat affect Assessment & Plan Assessment/Plan (1) Bright red blood per rectum: PLAN: Plan Patient is a 46-year-old lady who presented with hematochezia and hematemesis 1. Acute GI bleed ? Patient underwent upper GI endoscopy by Dr. Villatoro on 10/29/2022 findings included - Normal esophagus. - Milvia-en-Y gastrojejunostomy with gastrojejunal anastomosis characterized by ulceration. Injected. 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 Treated with a heater probe. - Red blood in the gastric body. Patient on PPI ? 10/31/2022; hemoglobin did drop to 7.6 plan is for patient to undergo repeat EGD ?11/01/2021;Patient underwent repeat EGD on 10/31/2022 given her continued drop inher hemoglobin levels. Findings included normal esophagus. Milvia-en-Y gastrojejunostomy with gastrojejunal anastomosis characterized by a hemorrhagicappearance and ulceration. Treated with argon plasma coagulation (APC). Normalexamined jejunum. 2. Anemia ? Secondary to acute blood loss anemia from patient angiodysplastic lesion in the jejunum as well as ulceration from her Milvia-en-Y gastrojejunostomy site. Patient has been typed and screened yet to be transfused. Plan is to transfuse if hemoglobin falls below 7 or patient is deemed to be symptomatic 3. Acute migrainous headache ? Patient treated with Phenergan for symptomatic relief 4. Class I obesity with BMI of 35 With previous Milvia-en-Y gastrojejunostomy 5. Essential hypertension ? On amlodipine held on admission plan is to resume prior to discharge 6. Hyperglycemia ? Ordered hemoglobin A1c to rule out diabetes. Hemoglobin A1c was 5.8 not consistent with diabetes mellitus type 2 7. DVT prophylaxis ? Low risk moreover contraindicated given patient GI bleed 8. Hypokalemia -Corrected per protocol Time spent in the patient's overall evaluation,decision-making process, review of diagnostic data, adjustment of management, discussion with other providers, nursing nursing and ancillary staff involved in patient's care documentation, 35 Minutes Charges/Coding Visit Charges Inpatient E&M: 89739 Subs Hosp L2 11/01/22 0942 <Electronically signed by Ganesh Bell MD> Cosigner Signature (if applicable): CC: ~ Signed [facility] Work Phone: [phone]) 381-670807-13-2023 Discharge summary Author Henok Bassett [facility] October 31, 2022 3:17pm Note Date/Time October 29, 2022 6:04 am [facility] Medical Records Department [address] [place] [address] Emergency Department Summary 10/29/22 MR#: [id number] Acct: [id number] Name: CATHERINE BUI Rep #:[id number] : 1975 46 From: Henok Bassett MD PCP: Dr. Hermelinda Castillo MD Status:A DM IN [facility] <Dr. Henok Bassett MD - Last Filed: 10/29/22 06:53> HPI - GI History of Present Illness Chief Complaint: GI Bleed Informant: patient and family Narrative Narrative: Patient presents with blood in vomitus and stool. Patient states that she was feeling nauseated and woke up about an hour or so before coming in. She ended up going to the bathroom. She vomited some blood and then called for her . She must of passed out. She states she was very scared when she saw the blood. She evidently fell and hit her lip and chipped her upper tooth and made a small cut on the inside of her lower lip. She is not having headache or neck pain. She then did have a bloody bowel movement. It was evidently more bright red and dark red. It was not black. She vomited red blood also. No black material. On review of systems I do find out that she has been having some epigastric aching for about 3 or 4 days but did not have the other symptoms. Patient also has a history of a bleeding ulcer. It sounds like she had this somewhere 2 or 3 months ago but she is not exactly sure. They did do an endoscopy. She was on medicine for a period of time. It sounds like she was onCarafate but is on nothing at this time. She is not on a proton pump inhibitor. She also had a Milvia-en-Y gastric bypass by Dr. Romero in [place] in 2019. [facility] <Dr. Henok Bassett MD - Last Filed: 10/29/22 06:53> [facility] Medical History Breast cancer screening Chronic constipation Chronic left hip pain DM 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 Elevated blood pressure reading in office without diagnosis of hypertension Essential hypertension GERD (gastroesophageal reflux disease) Headache Hemangioma History of hiatal hernia History of IBS Hypertension IBS (irritable bowel syndrome) Localized swelling on left hand Low iron Mass of skin of left lower leg Migraine headache Non-smoker Preventative health care Right thyroid nodule Suspected COVID-19 virus infection Thyroid disease URI (upper respiratory infection) Vocal cord dysfunction Wears glasses Home Medications calcium carbonate 600 mg calcium (1,500 mg) tablet (Calcium) 600 mg PO DAILY 09/25/20 [History Last Taken Unknown] cholecalciferol (vitamin D3) 10 mcg (400 unit) capsule 10 mcg PO DAILY 09/25/20 [History Last Taken Unknown] cyanocobalamin (vitamin B-12) 50 mcg tablet (Vitamin B-12) 50 mcg PO DAILY 09/25/20 [History Last Taken Unknown] loratadine 10 mg capsule 10 mg PO DAILY 09/25/20 [History Last Taken Unknown] magnesium 200 mg tablet 200 mg PO DAILY 09/25/20 [History Last Taken Unknown] multivitamin 1 tab PO DAILY 09/25/20 [History Last Taken Unknown] ascorbic acid (vitamin C) 1,000 mg tablet 1 g PO DAILY 12/15/20 [History Last Taken Unknown] ferrous sulfate 325 mg (65 mg iron) tablet 325 mg PO TID 12/15/20 [History Last Taken Unknown] potassium 99 mg PO DAILY 12/15/20 [History Last Taken Unknown] sumatriptan succinate 50 mg tablet (Imitrex) See Rx Instructions PO .COMPLEX #14tabs 07/24/21 [Rx Last Taken Unknown] sucralfate 100 mg/mL oral suspension (Carafate) 10 ml PO BID #200 mL 06/05/22 [Rx Last Taken Unknown] cyclobenzaprine 10 mg tablet See Rx Instructions .Route .COMPLEX #60 tabs 08/26/22 [Rx Last Taken Unknown] linaclotide 290 mcg capsule (Linzess) 290 mcg PO DAILY PRN PRN Diarrhea #90 caps09/05/22 [Rx Last Taken Unknown] amlodipine 5 mg tablet See Rx Instructions .Route .COMPLEX #90 tabs 10/25/22 [Rx Last Taken Unknown] Allergy/AdvReac Type Severity Reaction Status Date / Time NSAIDS (Non-Steroidal Allergy unknown Verified 10/29/22 05:28 Anti-Inflamma Penicillins Allergy Rash Verified 10/29/22 05:28 sulfamethoxazole Allergy rash Verified 10/29/22 05:28 [From Bactrim] trimethoprim [From Bactrim] Allergy rash Verified 10/29/22 05:28 Family History Aunt Cancer uterine cancer Brother Asthma Sister Autoimmune disorder Other Breast cancer Diabetes Heart disease Hypertension Myocardial infarction Parkinson disease Surgical History Gastric bypass status for obesity H/O section History of hysterectomy History of surgical removal of ganglion cyst Hx of cholecystectomy S/P thyroid surgery Social History Smoking Status: Never smoker ROS <Dr. Henok Bassett MD - Last Filed: 10/29/22 06:53> ROS ED ROS Narrative A complete review of systems was performed and is negative except as documented in the history of present illness. Some specific details below. Constitutional: No recent fevers or chills. ENT: No difficulty swallowing. No swelling. No pain. No real GERD symptoms recently. CV: No chest pain or palpitations. Respiratory: No dyspnea. No hemoptysis. No difficulty taking breaths. GI: Please see history of present illness. Note epigastric soreness for a few days but she was still eating and drinking. : No frequency dysuria or hematuria. Musculoskeletal: No recent trauma. No pains. Skin: No rash. Nondiaphoretic. Neuro: No weakness or numbness. Endocrine: No polyuria or polydipsia. EXAM <Dr. Henok Bassett MD - Last Filed: 10/29/22 06:53> Physical Exam Narrative Exam Narrative: CONSTITUTIONAL: Patient is nontoxic in appearance. The patient looks comfortable. She does not look pale or diaphoretic. HEENT: Patient does have a slight chip off the tip of the left medial incisor. It does seem to be stable. She has a small U-shaped tear of the skin superficial laceration to the lower lip likely from hitting in this tooth. No active bleeding. No mandibular tenderness. No other facial tenderness. EYES: No conjunctival injection. No proptosis. No pallor is noted. No icterus. NECK: No tenderness or pain with motion. CARDIOVASCULAR: Mildly tachycardic rate. Regular rhythm. No notable murmur. No JVD. RESPIRATORY: No respiratory distress. Breathing is unlabored. No wheezes. No rhonchi. No rales. No pain with a deep breath. GASTROINTESTINAL: Not distended. Bowel sounds are normal and not increased or decreased. Very mild epigastric tenderness. But no guarding. No rebound. No palpable mass. No bruit. GENITOURINARY: No tenderness over the bladder. No CVA tenderness. MUSCULOSKELETAL: Atraumatic. No peripheral edema. No cord. No tenderness along the deep venous system. No asymmetry. NEUROLOGICAL: Patient is alert and appropriate. No focal deficit noted. SKIN: No noted rashes. No diaphoresis. No notable pallor. PSYCHIATRIC: Patient is a bit tearful regarding the events which is understandable. Const Vital Signs: 10/29/22 05:23 10/29/22 07:12 Temperature 97.1 F L Temperature Source Temporal Pulse Rate 117 H 96 Respiratory Rate 23 H 16 Blood Pressure 116/92 H 111/76 Blood Pressure Mean 100 87 Pulse Ox 100 99 Oxygen Delivery Method Room Air Room Air <Dr. Shabbir Metzger DO - Last Filed: 10/29/22 12:03> Physical Exam Const Vital Signs: 10/29/22 05:23 10/29/22 07:12 Temperature 97.1 F L Temperature Source Temporal Pulse Rate 117 H 96 Respiratory Rate 23 H 16 Blood Pressure 116/92 H 111/76 Blood Pressure Mean 100 87 Pulse Ox 100 99 Oxygen Delivery Method Room Air Room Air MDM <Dr. Henok Bassett MD - Last Filed: 10/29/22 06:53> [facility] Narrative Medical decision making narrative: Patient CBC shows a mild elevation of white count that could even be a stress response. Her hemoglobin is low at 11.4. Although this is not markedly abnormal it does seem to be below her baseline by several grams. Her platelets are normal. The patient's electrolytes show normal creatinine but a high BUN. This might befrom absorption of nitrogen this blood products in the gut. She has had discomfort in the epigastrium for a few days and did have blood in the stool. She also showed a high glucose at 235. She had been diabetic but this had improved after gastric bypass. She is given IV fluids here. Liver function test are not showing any marked abnormalities. Patient's lipase is normal. 06:20 patient's heart rate is now down to about 94. Patient's CT of the abdomen is pending at this time. Patient will be turned over to the morning physician. Certainly, if her CT shows an acute abnormality or perforation near her surgical site she will likely need transfer. If the CT shows no acute process we can see how she is doing and see if she is stable for discharge or needs to come in the hospital. Lab Data Attestation: I reviewed the patient's lab results. Labs: Laboratory Results - last 24 hr 10/29/22 10/29/22 05:35 09:35 WBC 14.4 H RBC 3.75 L Hgb 11.4 L Hct 34.5 L MCV 92.0 MCH 30.4 MCHC 33.0 RDW Std Deviation 42.3 RDW Coeff of Cristin 12.4 Plt Count 371 MPV 10.3 Immature Gran % (Auto) 0.600 Neut % (Auto) 58.1 Lymph % (Auto) 33.1 Terrell % (Auto) 5.4 Eos % (Auto) 1.7 Baso % (Auto) 1.1 H Absolute Neuts (auto) 8.4 H Absolute Lymphs (auto) 4.75 H Nucleated RBC % 0 PT 14.0 INR 1.1 APTT 24.7 Sodium 137 Potassium 4.2 Chloride 107 Carbon Dioxide 24.0 Anion Gap 6 BUN 27 H Creatinine 0.64 Estim Creat Clear Calc 96.86 Est GFR (MDRD) Af Amer 129 Est GFR (MDRD) Non-Af 107 BUN/Creatinine Ratio 42.3 H Glucose 235 H Lactic Acid 2.1 H* 1.0 Calcium 8.1 L Total Bilirubin 0.40 AST 14 L ALT 18 Alkaline Phosphatase 56 Total Protein 6.0 L Albumin 3.1 L Globulin 2.9 Albumin/Globulin Ratio 1.1 Lipase 35 Radiography Diagnostic Testing: Clinical Impression(s) from Imaging Studies Abdomen/Pelvis CT 10/29/22 05:50 IMPRESSION: Fatty infiltration of the liver. Diffuse circumferential wall thickening of the distal stomach and first portion of the duodenum. Inflammatory process should be ruled out. Patient status post gastric bypass surgery. Small bilateral ovarian follicles. Electronically Signed: Jerome Alicea MD at 8:51 EDT , EKG Initial EKG: Comments: My independent interpretation the patient's EKG done for GI blood loss tachycardia and syncope shows sinus rhythm with tachycardic rate at 103. No ventricular ectopy. No acute ST elevation or depression. ND interval,QRS duration and QTc are normal. <Dr. Shabbir Metzger, DO - Last Filed: 10/29/22 12:03> [facility] Lab Data Labs: Laboratory Results - last 24 hr 10/29/22 10/29/22 05:35 09:35 WBC 14.4 H RBC 3.75 L Hgb 11.4 L Hct 34.5 L MCV 92.0 MCH 30.4 MCHC 33.0 RDW Std Deviation 42.3 RDW Coeff of Cristin 12.4 Plt Count 371 MPV 10.3 Immature Gran % (Auto) 0.600 Neut % (Auto) 58.1 Lymph % (Auto) 33.1 Terrell % (Auto) 5.4 Eos % (Auto) 1.7 Baso % (Auto) 1.1 H Absolute Neuts (auto) 8.4 H Absolute Lymphs (auto) 4.75 H Nucleated RBC % 0 PT 14.0 INR 1.1 APTT 24.7 Sodium 137 Potassium 4.2 Chloride 107 Carbon Dioxide 24.0 Anion Gap 6 BUN 27 H Creatinine 0.64 Estim Creat Clear Calc 96.86 Est GFR (MDRD) Af Amer 129 Est GFR (MDRD) Non-Af 107 BUN/Creatinine Ratio 42.3 H Glucose 235 H Lactic Acid 2.1 H* 1.0 Calcium 8.1 L Total Bilirubin 0.40 AST 14 L ALT 18 Alkaline Phosphatase 56 Total Protein 6.0 L Albumin 3.1 L Globulin 2.9 Albumin/Globulin Ratio 1.1 Lipase 35 Radiography Diagnostic Testing: Clinical Impression(s) from Imaging Studies Abdomen/Pelvis CT 10/29/22 05:50 IMPRESSION: Fatty infiltration of the liver. Diffuse circumferential wall thickening of the distal stomach and first portion of the duodenum. Inflammatory process should be ruled out. Patient status post gastric bypass surgery. Small bilateral ovarian follicles. Electronically Signed: Jerome Alicea MD at 8:51 EDT , Treatment and Re-Evaluation :: Patient was signed out to me by Dr. Bassett at 7:30 AM. No acute events under my care. Patient's initial tachycardia and tachypnea resolved. Initial lactate elevated 2.1 resolved with [address] scan showed no evidence of acute perforation obstruction or other surgical pathology did show inflammation in the lower stomach and duodenum. Of note patient's hemoglobin decreased by approximately 3 g/dL was concerning for ongoing bleeding in the setting of active hematochezia. Patient noted to still be symptomatic and had 1 bloody bowel movement here in the emergency department despite stable vitals, no significant anemia I offered the patient admission forobservation and urgent GI consultation. Spoke with hospitalist Dr. Boyle who agreed to admit the patient for observation. Discharge Plan Triage Chief Complaint: GI Bleed ED Provider: Henok Bassett Dx/Rx/DC Orders Clinical Impression: History of gastric bypass, Laceration of lower lip, Anemia, Elevated blood sugar, Syncope, Bright red blood per rectum, Hematemesis, Chipped tooth Primary Care Provider: Hermelinda Castillo What to do if you have Problems For any increased pain, shortness of breath, bleeding, nausea or vomiting, chestpain, or any unexpected problems, contact your Primary Care Provider. Call [facility] ([phone]) or report to the closest Emergency Room. Call 911 if necessary. 10/31/22 1517 <Electronically signed by Henok Bassett MD> Cosigner Signature (if applicable): 10/29/22 1203 <Electronically signed by Shabbir Metzger DO> CC: Dr. Hermelinda Castillo MD ~ Signed [facility] Work Phone: 1(467) 512-377507-13-2023 Procedure [facility] 10-31-2022 Procedure [facility]07-13-2023 Progress note Author Ganesh Bell [facility] October 31, 2022 11:51am Note Date/Time October 31, 2022 8:11 am [facility] Medical Records Department [address] [place] [address] Progress Note - Hospitalist 10/31/22809 MR#: [id number] Acct: [id number] Name: CATHERINE BUI Rep #:[id number] : 1975 46 From: Ganesh Bell MD PCP: Dr. Hermelinda Castillo MD Status:A DM IN Location: [place] [address] Reason for Visit Reason for Visit: Diagnoses Anemia, unspecified (10/29/22) Hemorrhage of anus and rectum (10/29/22) Hematemesis (10/29/22) Subjective Subjective Since seen hemoglobin did drop to 7.6. Plan is for patient to undergo repeat EGD. Patient also complains of significant headache and nausea given Phenergan for symptomatic relief Objective Data Objective Data Vital Signs: Vital Signs Temp Pulse Resp BP Pulse Ox O2 Del Method 98.0 F 92 16 132/75 H 100 Room Air 10/31/22 06:00 10/31/22 07:00 10/31/22 06:00 10/31/22 06:00 10/31/22 06:00 10/31/22 06:29 Oxygen Delivery Method Room Air Weight: 92.6 kg Body Mass Index (BMI) 35.0 Intake & Output: Intake and Output for Last 24 Hours 10/29/22 10/30/22 10/31/22 23:59 23:59 23:59 Intake Total 50 50 1100 / 1100 Balance 50 1100 / 1100 Lab / Micro Data 10/31/22 06:42 10/30/22 06:20 Labs: Laboratory Results - last 24 hr 10/30/22 06:20: WBC 10.6, RBC 2.63 L, Hgb 8.0 L, Hct 24.3 L, MCV 92.4, MCH 30.4,MCHC 32.9, RDW Std Deviation 42.2, RDW Coeff of Cristin 12.8, Plt Count 244, MPV 10.7, Immature Gran % (Auto) 0.400, Neut % (Auto) 71.7 H, Lymph % (Auto) 21.0, Terrell % (Auto) 5.3, Eos % (Auto) 0.7, Baso % (Auto) 0.9, Absolute Neuts (auto) 7.6, Absolute Lymphs (auto) 2.22, Nucleated RBC % 0, Phosphorus 3.5, Magnesium 1.8 10/31/22 06:42: Hgb 7.6 L, Hct 22.9 L Physical Exam Narrative GENERAL: cooperative HEENT: Atraumatic; normocephalic EYES; Anicteric, Normal Conjunctiva NECK; supple, normal thyroid, RESPIRATORY: Diminished to auscultation CARDIOVASCULAR: Regular S1 S2, GI: soft, normoactive bowel sounds, : No Renal angle tenderness; EXTREMITIES: No edema, no clubbing, MUSCULOSKELETAL: no muscle wasting NEURO: Awake; no lateralizing signs. SKIN: No Rash PSYCH; Flat affect HEENT normocephalic and moist oral mucous membranes Eyes PERRL, EOMs intact bilaterally and conjunctivae normal Neck supple, no JVD, thyroid normal and no carotid bruits General: trachea midline Resp normal respiratory effort, no retractions, no use of accessory muscles and clearto auscultation bilaterally Auscultation: Negative for rales, rhonchi or wheezes Cardio regular rate, regular rhythm, S1 normal heart sound, S2 normal heart sound, no murmurs, no rub and no gallops GI normal to inspection, nondistended, normoactive bowel sounds, soft to palpation,non-tender and non-distended Extremity no clubbing, cyanosis or edema Skin no rashes or lesions noted General Skin Exam: no breakdown Neuro oriented x3, CN's II-XII intact bilaterally, moves all extremities, no focal motor deficits and no sensory deficits noted Sensorium / Orientation: awake and alert Speech: speech normal Psych affect normal Assessment & Plan Assessment/Plan (1) Bright red blood per rectum: PLAN: Plan Patient is a 46-year-old lady who presented with hematochezia and hematemesis 1. Acute GI bleed ? Patient underwent upper GI endoscopy by Dr. Villatoro on 10/29/2022 findings included - Normal esophagus. - Milvia-en-Y gastrojejunostomy with gastrojejunal anastomosis characterized by ulceration. Injected. 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 Treated with a heater probe. - Red blood in the gastric body. Patient on PPI ? 10/31/2022; hemoglobin did drop to 7.6 plan is for patient to undergo repeat EGD 2. Anemia ? Secondary to acute blood loss anemia from patient angiodysplastic lesion in the jejunum as well as ulceration from her Milvia-en-Y gastrojejunostomy site. Patient has been typed and screened yet to be transfused. Plan is to transfuse if hemoglobin falls below 7 or patient is deemed to be symptomatic 3. Acute migrainous headache ? Patient treated with Phenergan for symptomatic relief 4. Class I obesity with BMI of 35 With previous Milvia-en-Y gastrojejunostomy 5. Essential hypertension ? On amlodipine held on admission plan is to resume prior to discharge 6 Resolved ordered hemoglobin A1c to rule out diabetes 7. DVT prophylaxis ? Low risk moreover contraindicated given patient GI bleed Time spent in the patient's overall evaluation,decision-making process, review of diagnostic data, adjustment of management, discussion with other providers, nursing nursing and ancillary staff involved in patient's care documentation, 50 Minutes Charges/Coding Visit Charges Inpatient E&M: 52277 Subs Hosp L3 10/31/22 1151 <Electronically signed by Ganesh Bell MD> Cosigner Signature (if applicable): CC: ~ Signed [facility] Work Phone: 1(778) 769-281007-12-2023 Progress note Author Ramez Villatoro [facility] October 30, 2022 5:17pm Note Date/Time October 30, 2022 5:11 pm [facility] Medical Records Department [address] [place] [address] Progress Note - GI 10/30/22 1711 MR#: [id number] Acct: [id number] Name: CATHERINE BUI ANN Rep #:[id number] : 1975 46 From: Ramez Villatoro DO PCP: Dr. Hermelinda Castillo MD Status:A DM EMILY Location: [place] [address] Subjective Subjective Patient underwent an upper endoscopy yesterday for acute GI bleed after a syncopal episode at home. She had a couple more loose bowel movements overnightGI bleeding today. She is hungry and would like her diet advanced. Objective Data Objective Data Vital Signs: Vital Signs Temp Pulse Resp BP Pulse Ox O2 Del Method 97 F L 73 16 127/72 H 100 Room Air 10/30/22 14:00 10/30/22 14:00 10/30/22 14:00 10/30/22 14:00 10/30/22 14:00 10/30/22 14:00 Oxygen Delivery Method Room Air Weight: 204 lb 2.369 oz Body Mass Index (BMI) 35.0 Intake & Output: Intake and Output for Last 24 Hours 10/28/22 10/29/22 10/30/22 23:59 23:59 23:59 Intake Total 1966.50 / 1966.50 1902. / 1902.17 Balance 50 / 1966.50 / Lab / Micro Data 10/30/22 06:20 10/30/22 06:20 Labs: Laboratory Results - last 24 hr 10/29/22 19:20: WBC 14.5 H, RBC 3.11 L, Hgb 9.4 L, Hct 28.9 L, MCV 92.9, MCH 30.2, MCHC 32.5, RDW Std Deviation 43.6, RDW Coeff of Cristin 12.9, Plt Count 274, MPV 10.2, Immature Gran % (Auto) 0.600, Neut % (Auto) 71.4 H, Lymph % (Auto) 21.5, Terrell % (Auto) 5.4, Eos % (Auto) 0.4, Baso % (Auto) 0.7, Absolute Neuts (auto) 10.4 H, Absolute Lymphs (auto) 3.13, Nucleated RBC % 0 10/29/22 23:13: Hgb 8.9 L, Hct 25.5 L 10/30/22 06:20: WBC 10.6, RBC 2.63 L, Hgb 8.0 L, Hct 24.3 L, MCV 92.4, MCH 30.4,MCHC 32.9, RDW Std Deviation 42.2, RDW Coeff of Cristin 12.8, Plt Count 244, MPV 10.7, Immature Gran % (Auto) 0.400, Neut % (Auto) 71.7 H, Lymph % (Auto) 21.0, Terrell % (Auto) 5.3, Eos % (Auto) 0.7, Baso % (Auto) 0.9, Absolute Neuts (auto) 7.6, Absolute Lymphs (auto) 2.22, Nucleated RBC % 0, Sodium 141, Potassium 3.9, Chloride 113 H, Carbon Dioxide 24.0, Anion Gap 4 L, BUN 15, Creatinine 0.46 L, Estim Creat Clear Calc 134.77, Est GFR (MDRD) Af Amer 191, Est GFR (MDRD) Non-Af158, BUN/Creatinine Ratio 33.0 H, Glucose 105, Calcium 7.6 L, Phosphorus 3.5, Magnesium 1.8 Physical Exam Narrative GENERAL: cooperative HEENT: Atraumatic; normocephalic EYES; Anicteric, Normal Conjunctiva NECK; supple, normal thyroid, RESPIRATORY: Diminished to auscultation CARDIOVASCULAR: Regular S1 S2, GI: soft, normoactive bowel sounds, : No Renal angle tenderness; EXTREMITIES: No edema, no clubbing, MUSCULOSKELETAL: no muscle wasting NEURO: Awake; no lateralizing signs. SKIN: No Rash PSYCH; Flat affect Assessment & Plan Assessment/Plan (1) Anemia: QUALIFIERS: Anemia type: unspecified type Qualified Code(s): D64.9 - Anemia, unspecified (2) Hematemesis: QUALIFIERS: Nausea presence: with nausea Qualified Code(s): K92.0- Hematemesis (3) Bright red blood per rectum: PLAN: 46-year-old with history of gastric bypass and discovered to have an anastomotic ulcer approximately 6 months ago. She presented with acute episode hematemesis, hematochezia and syncope at home status post fall. She underwent emergent endoscopy yesterday was discovered to have large anastomotic ulcer thatwas treated with clipping, epinephrine and cauterization. She was also discovered to have an angiodysplastic lesion near the jejunal jejunal anastomosis that was also treated endoscopically. Her hemoglobin has been slowly trending down. She is on Carafate and would like her diet advanced. I will also start her on Misoprostol therapy. Hopefully her hemoglobin is stabilized and she does not need a repeat upper endoscopy. Charges/Coding Visit Charges Inpatient E&M: 37315 Subs Hosp L3 10/30/22 8814 <Electronically signed by Ramez Friend DO> Cosigner Signature (if applicable): CC: ~ Signed [facility] Work Phone: 1(840) 131-565607-12-2023 Progress note Author Ganesh Bell [facility] October 30, 2022 10:23am Note Date/Time October 30, 2022 8:27 am [facility] Medical Records Department [address] [place] [address] Progress Note - Hospitalist 10/30/22822 MR#: [id number] Acct: [id number] Name: CATHERINE BUI Rep #:[id number] : 1975 46 From: Ganesh Bell MD PCP: Dr. Hermelinda Castillo MD Status:A DM EMILY Location: [place] [address] Reason for Visit Reason for Visit: Diagnoses Hemorrhage of anus and rectum (10/29/22) Subjective Subjective Patient is a 46-year-old lady who presented with hematochezia and hematemesis Objective Data Objective Data Vital Signs: Vital Signs Temp Pulse Resp BP Pulse Ox O2 Del Method 97.9 F 79 16 114/69 100 Room Air 10/30/22 07:55 10/30/22 07:55 10/30/22 07:55 10/30/22 07:55 10/30/22 07:55 10/30/22 07:55 Oxygen Delivery Method Room Air Weight: 92.6 kg Body Mass Index (BMI) 35.0 Intake & Output: Intake and Output for Last 24 Hours 10/28/22 10/29/22 10/30/22 23:59 23:59 23:59 Intake Total 50 / 1966. 1006.67 / 1006.67 Balance / 1006.67 / 1006.67 Lab / Micro Data 10/29/22 23:13 10/30/22 06:20 Labs: Laboratory Results - last 24 hr 10/29/22 09:35: Lactic Acid 1.0 10/29/22 12:57: Hgb 10.9 L, Hct 30.9 L 10/29/22 19:20: WBC 14.5 H, RBC 3.11 L, Hgb 9.4 L, Hct 28.9 L, MCV 92.9, MCH 30.2, MCHC 32.5, RDW Std Deviation 43.6, RDW Coeff of Cristin 12.9, Plt Count 274, MPV 10.2, Immature Gran % (Auto) 0.600, Neut % (Auto) 71.4 H, Lymph % (Auto) 21.5, Terrell % (Auto) 5.4, Eos % (Auto) 0.4, Baso % (Auto) 0.7, Absolute Neuts (auto) 10.4 H, Absolute Lymphs (auto) 3.13, Nucleated RBC % 0 10/29/22 23:13: Hgb 8.9 L, Hct 25.5 L 10/30/22 06:20: Sodium 141, Potassium 3.9, Chloride 113 H, Carbon Dioxide 24.0, Anion Gap 4 L, BUN 15, Creatinine 0.46 L, Estim Creat Clear Calc 134.77, Est GFR(MDRD) Af Amer 191, Est GFR (MDRD) Non-Af 158, BUN/Creatinine Ratio 33.0 H, Glucose 105, Calcium 7.6 L Radiography Diagnostic Testing: Radiology Impression Abdomen/Pelvis CT 10/29/22 05:50 IMPRESSION: Fatty infiltration of the liver. Diffuse circumferential wall thickening of the distal stomach and first portion of the duodenum. Inflammatory process should be ruled out. Patient status post gastric bypass surgery. Small bilateral ovarian follicles. Electronically Signed: Jerome Alicea MD at 8:51 EDT , Physical Exam Narrative GENERAL: cooperative HEENT: Atraumatic; normocephalic EYES; Anicteric, Normal Conjunctiva NECK; supple, normal thyroid, RESPIRATORY: Diminished to auscultation CARDIOVASCULAR: Regular S1 S2, GI: soft, normoactive bowel sounds, : No Renal angle tenderness; EXTREMITIES: No edema, no clubbing, MUSCULOSKELETAL: no muscle wasting NEURO: Awake; no lateralizing signs. SKIN: No Rash PSYCH; Flat affect Assessment & Plan Assessment/Plan (1) Bright red blood per rectum: PLAN: Plan Patient is a 46-year-old lady who presented with hematochezia and hematemesis 1. Acute GI bleed ? Patient underwent upper GI endoscopy by Dr. Villatoro on 10/29/2022 findings included - Normal esophagus. - Milvia-en-Y gastrojejunostomy with gastrojejunal anastomosis characterized by ulceration. Injected. 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 Treated with a heater probe. - Red blood in the gastric body. Patient on PPI 2. Class I obesity with BMI of 35 With previous Milvia-en-Y gastrojejunostomy 3. Essential hypertension ? On amlodipine held on admission plan is to resume prior to discharge 4. Hyperglycemia ? Resolved ordered hemoglobin A1c to rule out diabetes 5. Chronic migraine ? Currently stable 6. DVT prophylaxis ? Low risk moreover contraindicated given patient GI bleed Time spent in the patient's overall evaluation,decision-making process, review of diagnostic data, adjustment of management, discussion with other providers, nursing nursing and ancillary staff involved in patient's care documentation, 35 Minutes Charges/Coding Visit Charges Inpatient E&M: 63058 [facility] Hosp L2 10/30/22 1023 <Electronically signed by Ganesh Bell MD> Cosigner Signature (if applicable): CC: ~ Signed [facility] Work Phone: [phone] Consult note Author Ramez Villatoro [facility] October 29, 2022 5:48pm Note Date/Time October 29, 2022 5:49 pm [facility] Medical Records Department [address] [place] [address] Consultation - GI 10/29/22 1745 MR#: [id number] Acct: [id number] Name: CATHERINE BUI ANN Rep #:[id number] : 1975 46 From: Ramez Villatoro DO PCP: Dr. Hermelinda Castillo MD Status:A DM EMILY Location: [facility]- 1 HPI Consult Data Date of Consult: 10/29/22 HPI Narrative Reason for Consultation: GI bleed HPI Narrative: CATHERINE BUI, is a 46 F who presents from home after having a syncopal event. She states that she was feeling nauseated and woke up about an hour or so before coming in. She ended up going to the bathroom. She vomited some blood and thencalled for her . She must of passed out. She states she was very scaredwhen she saw the blood. She evidently fell and hit her lip and chipped her upper tooth and made a small cut on the inside of her lower lip. She is not having headache or neck pain. She then did have a bloody bowel movement. It was evidently more bright red anddark red. It was not black. She vomited red blood also. No black material. On review of systems I do find out that she has been having some epigastric aching for about 3 or 4 days but did not have the other symptoms. Patient also has a history of a bleeding ulcer. This was seen on upper endoscopy by Dr. Suresh. It was at the site of gastrojejunal anastomosis. She was on medicine for a period of time. It sounds like she was on Carafate but trupti nothing at this time. She is not on a proton pump inhibitor. She also had aRoux-en-Y gastric bypass by Dr. Romero in [place] in 2019 [facility] Medical History Breast cancer screening Chronic constipation Chronic left hip pain DM 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 Elevated blood pressure reading in office without diagnosis of hypertension Essential hypertension GERD (gastroesophageal reflux disease) Headache Hemangioma History of hiatal hernia History of IBS Hypertension IBS (irritable bowel syndrome) Localized swelling on left hand Low iron Mass of skin of left lower leg Migraine headache Non-smoker Preventative health care Right thyroid nodule Suspected COVID-19 virus infection Thyroid disease URI (upper respiratory infection) Vocal cord dysfunction Wears glasses Home Medications calcium carbonate 600 mg calcium (1,500 mg) tablet (Calcium) 600 mg PO DAILY 09/25/20 [History Last Taken Unknown] cholecalciferol (vitamin D3) 10 mcg (400 unit) capsule 10 mcg PO DAILY 09/25/20 [History Last Taken Unknown] cyanocobalamin (vitamin B-12) 50 mcg tablet (Vitamin B-12) 50 mcg PO DAILY 09/25/20 [History Last Taken Unknown] loratadine 10 mg capsule 10 mg PO DAILY 09/25/20 [History Last Taken Unknown] magnesium 200 mg tablet 200 mg PO DAILY 09/25/20 [History Last Taken Unknown] multivitamin 1 tab PO DAILY 09/25/20 [History Last Taken Unknown] ascorbic acid (vitamin C) 1,000 mg tablet 1 g PO DAILY 12/15/20 [History Last Taken Unknown] ferrous sulfate 325 mg (65 mg iron) tablet 325 mg PO TID 12/15/20 [History Last Taken Unknown] potassium 99 mg PO DAILY 12/15/20 [History Last Taken Unknown] sumatriptan succinate 50 mg tablet (Imitrex) See Rx Instructions PO .COMPLEX #14tabs 07/24/21 [Rx Last Taken Unknown] sucralfate 100 mg/mL oral suspension (Carafate) 10 ml PO BID #200 mL 06/05/22 [Rx Last Taken Unknown] cyclobenzaprine 10 mg tablet See Rx Instructions .Route .COMPLEX #60 tabs 08/26/22 [Rx Last Taken Unknown] linaclotide 290 mcg capsule (Linzess) 290 mcg PO DAILY PRN PRN Diarrhea #90 caps09/05/22 [Rx Last Taken Unknown] amlodipine 5 mg tablet See Rx Instructions .Route .COMPLEX #90 tabs 10/25/22 [Rx Last Taken Unknown] Allergy/AdvReac Type Severity Reaction Status Date / Time NSAIDS (Non-Steroidal Allergy unknown Verified 10/29/22 05:28 Anti-Inflamma Penicillins Allergy Rash Verified 10/29/22 05:28 sulfamethoxazole Allergy rash Verified 10/29/22 05:28 [From Bactrim] trimethoprim [From Bactrim] Allergy rash Verified 10/29/22 05:28 Family History Aunt Cancer uterine cancer Brother Asthma Sister Autoimmune disorder Other Breast cancer Diabetes Heart disease Hypertension Myocardial infarction Parkinson disease Surgical History Gastric bypass status for obesity H/O section History of hysterectomy History of surgical removal of ganglion cyst Hx of cholecystectomy S/P thyroid surgery Social History Smoking Status: Never smoker ROS Constitutional Constitutional: Denies anorexia, change in weight, fever(s), night sweats or weakness Eyes Eyes: Denies blurry vision, change in vision, discharge from eye(s) or eye pain Cardiovascular Cardiovascular: Reports lightheadedness; Denies chest pain, claudication, edema or palpitations Respiratory/Chest Respiratory/Chest: Denies cough, dyspnea, excessive phlegm production, hemoptysis, productive cough, shortness of breath at rest or shortness of breathwith exertion Gastrointestinal Gastrointestinal: Reports abdominal pain, hematemesis, hematochezia, nausea and vomiting; Denies constipation, diarrhea or melena Genitourinary Genitourinary: Denies difficulty urinating, dysuria, hematuria, urinary frequency, urinary hesitancy, urinary incontinence or urinary urgency Musculoskeletal Musculoskeletal: Denies back pain, joint pain, joint stiffness, joint swelling, myalgias or neck pain Neurologic Neurologic: Denies abnormal gait, abnormal speech, confusion, disequilibrium, dizziness, focal weakness, headache(s), loss of vision, numbness, other visual disturbances, paresthesias, syncope or tingling Psychiatric Psychiatric: Denies anxiety, cognitive impairment, depression, irritability, mood swings or suicidal ideation Endocrine Endocrinology: Denies change in body appearance, cold intolerance, excessive sweating, heat intolerance, polydipsia or polyuria Hematologic/Lymphatic Hematologic/Lymphatic: Denies none, anemia, easy bleeding, easy bruising or lymphadenopathy Allergic/Immunologic Allergic/Immunologic: Denies rhinitis, urticaria, eczemia or asthma Physical Exam Const alert, oriented x3, no apparent distress, average body habitus and healthy appearing General Appearance: cooperative, well kempt and well developed Orientation / Consciousness: awake, oriented to person, oriented to place and oriented to time HEENT normocephalic and moist oral mucous membranes HEENT Narrative: Patient has an abrasion to her lower lip noted Eyes PERRL, EOMs intact bilaterally and conjunctivae normal Neck supple, no JVD, thyroid normal and no carotid bruits General: trachea midline Resp normal respiratory effort, no retractions, no use of accessory muscles and clearto auscultation bilaterally Auscultation: Negative for rales, rhonchi or wheezes Cardio regular rate, regular rhythm, S1 normal heart sound, S2 normal heart sound, no murmurs, no rub and no gallops GI normal to inspection, nondistended, normoactive bowel sounds, soft to palpation,non-tender and non-distended Extremity no clubbing, cyanosis or edema Skin no rashes or lesions noted General Skin Exam: no breakdown Neuro oriented x3, CN's II-XII intact bilaterally, moves all extremities, no focal motor deficits and no sensory deficits noted Sensorium / Orientation: awake and alert Speech: speech normal Psych affect normal Lab / Micro Data 10/29/22 12:57 10/29/22 05:35 Labs: Laboratory Results - last 24 hr 10/29/22 05:35: WBC 14.4 H, RBC 3.75 L, Hgb 11.4 L, Hct 34.5 L, MCV 92.0, MCH 30.4, MCHC 33.0, RDW Std Deviation 42.3, RDW Coeff of Cristin 12.4, Plt Count 371, MPV 10.3, Immature Gran % (Auto) 0.600, Neut % (Auto) 58.1, Lymph % (Auto) 33.1,Terrell % (Auto) 5.4, Eos % (Auto) 1.7, Baso % (Auto) 1.1 H, Absolute Neuts (auto) 8.4 H, Absolute Lymphs (auto) 4.75 H, Nucleated RBC % 0, PT 14.0, INR 1.1, APTT 24.7, Sodium 137, Potassium 4.2, Chloride 107, Carbon Dioxide 24.0, Anion Gap 6,BUN 27 H, Creatinine 0.64, Estim Creat Clear Calc 96.86, Est GFR (MDRD) Af Amer 129, Est GFR (MDRD) Non-Af 107, BUN/Creatinine Ratio 42.3 H, Glucose 235 H, Lactic Acid 2.1 H*, Calcium 8.1 L, Total Bilirubin 0.40, AST 14 L, ALT 18, Alkaline Phosphatase 56, Total Protein 6.0 L, Albumin 3.1 L, Globulin 2.9, Albumin/Globulin Ratio 1.1, Lipase 35 10/29/22 09:35: Lactic Acid 1.0 10/29/22 12:57: Hgb 10.9 L, Hct 30.9 L Radiology Impression Abdomen/Pelvis CT 10/29/22 05:50 IMPRESSION: Fatty infiltration of the liver. Diffuse circumferential wall thickening of the distal stomach and first portion of the duodenum. Inflammatory process should be ruled out. Patient status post gastric bypass surgery. Small bilateral ovarian follicles. Electronically Signed: Jerome Alicea MD at 8:51 EDT , Assessment & Plan Assessment/Plan (1) Bright red blood per rectum: PLAN: Plan 46-year-old with history of gastric bypass and history of anastomotic ulcer bleed comes in with abdominal pain, syncope status post fall with mild hematemesis and melanotic stools with hematochezia. Differential diagnosis doesinclude anastomotic ulcer. Differential diagnosis also includes ischemic colitis and gastric duodenal anastomosis. She should undergo an upper endoscopyif that is normal she should undergo colonoscopy. She was explained alternatives, risk, benefits including outstanding bleeding, infection, sepsis, perforation, need for emergent and . She have an ASA of 3. Charges/Coding Visit Charges Inpatient E&M: 56320 Init Hosp L3 10/29/22 6898 <Electronically signed by Ramez Friend > Cosigner Signature (if applicable): CC: Dr. Hermelinda Castillo MD~ Signed [facility] Work Phone: 1(444) 651-796507-11-2023 History and physical note Author Giancarlo Boyle [facility] October 29, 2022 4:35pm Note Date/Time October 29, 2022 4:35 pm [facility] Medical Records Department [address] [place] [id number] H&P Exam - Hospitalist 10/29/22 1628 MR#: [id number] Acct: [id number] Name: CATHERINE BUI ANN Rep #:[id number] : 1975 46 From: Giancarlo Boyle DO PCP: Dr. Hermelinda Castillo MD Status:A DM EMILY Location: [place] [address] HPI - General General Date of Admission: 10/29/22 Date of Service: 10/29/22 Chief Complaint: Hematemesis, bright red rectal bleeding HPI Narrative CATHERINE BUI, is a 46 F who presents to the emergency room at [facility] with a chief complaint of hematemesis early this morning and bright redrectal bleeding. Patient also complains of generalized mid abdominal bloating. Patient had a gastric ulcer diagnosed in March of last year. She has a past history of gastric bypass that was done in 2019. Patient states she felt lightheaded at home and passed out briefly striking her lip. Work-up in the emergency room showed her hemoglobin to be 11.4, patient states that she had 2 episodes of rectal bleeding in the emergency room with clots in the commode. Chemistry panel showed an elevated glucose of 235, creatinine was normal, lacticacid was elevated at 2.1. Patient will be placed in observation status on PCU, serial H&H's will be performed, patient will be seen in consultation by gastroenterology and probablyundergo an EGD today. She will be placed on a Protonix drip and her medicationswill be held at this time. [facility] Medical History Breast cancer screening Chronic constipation Chronic left hip pain DM 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 Elevated blood pressure reading in office without diagnosis of hypertension Essential hypertension GERD (gastroesophageal reflux disease) Headache Hemangioma History of hiatal hernia History of IBS Hypertension IBS (irritable bowel syndrome) Localized swelling on left hand Low iron Mass of skin of left lower leg Migraine headache Non-smoker Preventative health care Right thyroid nodule Suspected COVID-19 virus infection Thyroid disease URI (upper respiratory infection) Vocal cord dysfunction Wears glasses Home Medications calcium carbonate 600 mg calcium (1,500 mg) tablet (Calcium) 600 mg PO DAILY 09/25/20 [History Last Taken Unknown] cholecalciferol (vitamin D3) 10 mcg (400 unit) capsule 10 mcg PO DAILY 09/25/20 [History Last Taken Unknown] cyanocobalamin (vitamin B-12) 50 mcg tablet (Vitamin B-12) 50 mcg PO DAILY 09/25/20 [History Last Taken Unknown] loratadine 10 mg capsule 10 mg PO DAILY 09/25/20 [History Last Taken Unknown] magnesium 200 mg tablet 200 mg PO DAILY 09/25/20 [History Last Taken Unknown] multivitamin 1 tab PO DAILY 09/25/20 [History Last Taken Unknown] ascorbic acid (vitamin C) 1,000 mg tablet 1 g PO DAILY 12/15/20 [History Last Taken Unknown] ferrous sulfate 325 mg (65 mg iron) tablet 325 mg PO TID 12/15/20 [History Last Taken Unknown] potassium 99 mg PO DAILY 12/15/20 [History Last Taken Unknown] sumatriptan succinate 50 mg tablet (Imitrex) See Rx Instructions PO .COMPLEX #14tabs 07/24/21 [Rx Last Taken Unknown] sucralfate 100 mg/mL oral suspension (Carafate) 10 ml PO BID #200 mL 06/05/22 [Rx Last Taken Unknown] cyclobenzaprine 10 mg tablet See Rx Instructions .Route .COMPLEX #60 tabs 08/26/22 [Rx Last Taken Unknown] linaclotide 290 mcg capsule (Linzess) 290 mcg PO DAILY PRN PRN Diarrhea #90 caps09/05/22 [Rx Last Taken Unknown] amlodipine 5 mg tablet See Rx Instructions .Route .COMPLEX #90 tabs 10/25/22 [Rx Last Taken Unknown] Allergy/AdvReac Type Severity Reaction Status Date / Time NSAIDS (Non-Steroidal Allergy unknown Verified 10/29/22 05:28 Anti-Inflamma Penicillins Allergy Rash Verified 10/29/22 05:28 sulfamethoxazole Allergy rash Verified 10/29/22 05:28 [From Bactrim] trimethoprim [From Bactrim] Allergy rash Verified 10/29/22 05:28 Family History Aunt Cancer uterine cancer Brother Asthma Sister Autoimmune disorder Other Breast cancer Diabetes Heart disease Hypertension Myocardial infarction Parkinson disease Surgical History Gastric bypass status for obesity H/O section History of hysterectomy History of surgical removal of ganglion cyst Hx of cholecystectomy S/P thyroid surgery Social History Smoking Status: Never smoker ROS Constitutional Constitutional: Denies anorexia, change in weight, fever(s), night sweats or weakness Eyes Eyes: Denies blurry vision, change in vision, discharge from eye(s) or eye pain Cardiovascular Cardiovascular: Reports lightheadedness; Denies chest pain, claudication, edema or palpitations Respiratory/Chest Respiratory/Chest: Denies cough, dyspnea, excessive phlegm production, hemoptysis, productive cough, shortness of breath at rest or shortness of breathwith exertion Gastrointestinal Gastrointestinal: Reports abdominal pain, hematemesis, hematochezia, nausea and vomiting; Denies constipation, diarrhea or melena Genitourinary Genitourinary: Denies difficulty urinating, dysuria, hematuria, urinary frequency, urinary hesitancy, urinary incontinence or urinary urgency Musculoskeletal Musculoskeletal: Denies back pain, joint pain, joint stiffness, joint swelling, myalgias or neck pain Neurologic Neurologic: Denies abnormal gait, abnormal speech, confusion, disequilibrium, dizziness, focal weakness, headache(s), loss of vision, numbness, other visual disturbances, paresthesias, syncope or tingling Psychiatric Psychiatric: Denies anxiety, cognitive impairment, depression, irritability, mood swings or suicidal ideation Endocrine Endocrinology: Denies change in body appearance, cold intolerance, excessive sweating, heat intolerance, polydipsia or polyuria Hematologic/Lymphatic Hematologic/Lymphatic: Denies none, anemia, easy bleeding, easy bruising or lymphadenopathy Allergic/Immunologic Allergic/Immunologic: Denies rhinitis, urticaria, eczemia or asthma Vital Signs Vital Signs Vital Signs: 10/29/22 05:23 10/29/22 07:12 10/29/22 12:13 Temperature 97.1 F L 97 F L Temperature Source Temporal Oral Pulse Rate 117 H 96 68 Respiratory Rate 23 H 16 16 Respiratory Effort Respiratory Depth Respiratory Pattern Blood Pressure 116/92 H 111/76 136/78 H Blood Pressure Mean 100 87 97 Blood Pressure Source Blood Pressure Position Blood Pressure Location Pulse Ox 100 99 Oxygen Delivery Method Room Air Room Air 10/29/22 13:00 10/29/22 14:55 Temperature 98.2 F Temperature Source Oral Pulse Rate 111 H Respiratory Rate 16 Respiratory Effort Normal Non-Labored Respiratory Depth Normal Respiratory Pattern Normal Blood Pressure 105/84 H Blood Pressure Mean 91 Blood Pressure Source Monitor Blood Pressure Position Semi-Fowlers Blood Pressure Location Left Arm Pulse Ox 100 Oxygen Delivery Method Room Air Room Air Weight Weight: 92.6 kg Body Mass Index (BMI) 35.0 Physical Exam Const alert, oriented x3, no apparent distress, average body habitus and healthy appearing General Appearance: cooperative, well kempt and well developed Orientation / Consciousness: awake, oriented to person, oriented to place and oriented to time HEENT normocephalic and moist oral mucous membranes HEENT Narrative: Patient has an abrasion to her lower lip noted Eyes PERRL, EOMs intact bilaterally and conjunctivae normal Neck supple, no JVD, thyroid normal and no carotid bruits General: trachea midline Resp normal respiratory effort, no retractions, no use of accessory muscles and clearto auscultation bilaterally Auscultation: Negative for rales, rhonchi or wheezes Cardio regular rate, regular rhythm, S1 normal heart sound, S2 normal heart sound, no murmurs, no rub and no gallops GI normal to inspection, nondistended, normoactive bowel sounds, soft to palpation,non-tender and non-distended Extremity no clubbing, cyanosis or edema Skin no rashes or lesions noted General Skin Exam: no breakdown Neuro oriented x3, CN's II-XII intact bilaterally, moves all extremities, no focal motor deficits and no sensory deficits noted Sensorium / Orientation: awake and alert Speech: speech normal Psych affect normal Results Lab / Micro Data 10/29/22 12:57 10/29/22 05:35 Labs: Laboratory Results - last 24 hr 10/29/22 05:35: WBC 14.4 H, RBC 3.75 L, Hgb 11.4 L, Hct 34.5 L, MCV 92.0, MCH 30.4, MCHC 33.0, RDW Std Deviation 42.3, RDW Coeff of Cristin 12.4, Plt Count 371, MPV 10.3, Immature Gran % (Auto) 0.600, Neut % (Auto) 58.1, Lymph % (Auto) 33.1,Terrell % (Auto) 5.4, Eos % (Auto) 1.7, Baso % (Auto) 1.1 H, Absolute Neuts (auto) 8.4 H, Absolute Lymphs (auto) 4.75 H, Nucleated RBC % 0, PT 14.0, INR 1.1, APTT 24.7, Sodium 137, Potassium 4.2, Chloride 107, Carbon Dioxide 24.0, Anion Gap 6,BUN 27 H, Creatinine 0.64, Estim Creat Clear Calc 96.86, Est GFR (MDRD) Af Amer 129, Est GFR (MDRD) Non-Af 107, BUN/Creatinine Ratio 42.3 H, Glucose 235 H, Lactic Acid 2.1 H*, Calcium 8.1 L, Total Bilirubin 0.40, AST 14 L, ALT 18, Alkaline Phosphatase 56, Total Protein 6.0 L, Albumin 3.1 L, Globulin 2.9, Albumin/Globulin Ratio 1.1, Lipase 35 10/29/22 09:35: Lactic Acid 1.0 10/29/22 12:57: Hgb 10.9 L, Hct 30.9 L Radiology Impression Abdomen/Pelvis CT 10/29/22 05:50 IMPRESSION: Fatty infiltration of the liver. Diffuse circumferential wall thickening of the distal stomach and first portion of the duodenum. Inflammatory process should be ruled out. Patient status post gastric bypass surgery. Small bilateral ovarian follicles. Electronically Signed: Jerome Alicea MD at 8:51 EDT , Assessment & Plan Assessment/Plan (1) Bright red blood per rectum: PLAN: Plan 1. Hematochezia and hematemesis-etiology unclear, patient will be seen by gastroenterology, she was placed in observation status on PCU, serial H&H's will beobtained and she will be monitored. Patient was placed on a PPI drip #2 essential hypertension-patient's amlodipine will be held at this time due to her n.p.o. status, blood pressure will be monitored #3 hyperglycemia-patient's blood sugar will be monitored, I will repeat the patient's blood sugar on PCU Total clinical time spent by myself addressing patient's medical issues, reviewing all of her data, and collaborating with patient's care team: 55 minutes Charges/Coding Visit Charges Inpatient E&M: 05623 Init Hosp L2 10/29/22 1635 <Electronically signed by Giancarlo Boyle DO> Cosigner Signature (if applicable): CC: Dr. Hermelinda Castillo MD; Dr. Giancarlo Boyle DO~ Signed [facility] Work Phone: 1(966) 988-338807-11-2023 Procedure [facility] 10-29-2022 Procedure [facility]2022 NoteHNO ID: [id number] Author: Evangelina Saeed MD Service: ? Author Type: Physician Type: Progress Notes Filed: 03/13/2022 12:25 PM Note Text: [facility]ocrinology [facility] [place] [facility] Evangelina Saeed M.D. Section of Endocrine Surgery and Advanced Laparoscopic Surgery [address] [place] [address], [place] [id number] ENDOCRINE SURGERY NEW CONSULTATION NAME: Catherine Bui [facility] NO: [id number] : 1975 Surgeon: Dr. Evangelina Saeed REFERRING PROVIDER: Corey Rainey [id number] [place] [address] The patient was referred by the above [...] FLUID, FINE NEEDLE ASPIRATION, 10 OUTSIDE SLIDES, ([id number]), [place], [place], (01-08-21): Benign. Consistent with colloid nodule with cystic changes. B - SLIDE(S) - RIGHT THYROID NODULE FLUID, FINE NEEDLE ASPIRATION, 9 OUTSIDE SLIDES, ([id number]), [place], [place], (05-14-2021): Non-diagnostic aspirate sample. Cyst Contents [...] Pressure symptoms:No. PHYSICAL EXAM: On physical exam, Catherine Bui is well appearing, alert, and oriented [...] results found for: CA ASSESSMENT: In summary, Catherine Bui has Multinodular goiter with small cystic [...] which included preparing to see the patient, [id number] patient care, completing cl (more content not included)...[facility]2022 History of Present illness Narrative* Evangelina Saeed MD - 03/13/2022 12:09 PM EST Endocrinology [facility] [place] [facility] Evangelina Saeed M.D. Section of Endocrine Surgery and Advanced Laparoscopic Surgery [address] [place], [place] [id number] ENDOCRINE SURGERY NEW CONSULTATION NAME: Catherine Bui [facility] NO: [id number] : 1975 Surgeon: Dr. Evangelina Saeed REFERRING PROVIDER: Corey Rainey [address] [place] [address] The patient was referred by the above [...] and 2.2 x 1.8 x 1.4 cm in11/2021 FNA of right upper and mid nodules [...] FLUID, FINE NEEDLE ASPIRATION, 10 OUTSIDE SLIDES, ([id number]), [place], [place], (01-08-21): Benign. Consistent with colloid nodule with cystic changes. B - SLIDE(S) - RIGHT THYROID NODULE FLUID, FINE NEEDLE ASPIRATION, 9 OUTSIDE SLIDES, ([id number]), [place], [place], (05-14-2021): Non-diagnostic aspirate sample. Cyst Contents [...] Pressure symptoms:No. PHYSICAL EXAM: On physical exam, Catherine Bui is well appearing, alert, and oriented [...] results found for: CA ASSESSMENT: In summary, Catherine Bui has Multinodular goiter with small cystic [...] which included preparing to see the patient, blsi-cc-opic patient care, completing clinical documentation, obtaining and/or reviewing separately obtained history, performing a medically appropriate examination, counseling and educating the pat ient/family/caregiver, communicating with other HCPs (not separately reported), independently interpreting results (not separately reported), communicating results to the patient/family/caregiver, and care coordination (not separately reported). Sincerely, Evangelina Saeed MD 03/13/2022 CC: Corey Rainey [id number] [facility] [id number] [facility] Instructions* Patient Instructions* Erica Calderon Ma - 03/13/2022 11:10 AM EST Thank you for choosing the [facility] Department of Endocrinology, Diabetes and Metabolism. Did you know that you need to call 48 hours in advance of your scheduled visit, if you are unable to make your appointment? The [facility] [place] thanks you for your commitment, because patients not showing to their appointment results in a lost opportunity for patients to receive [facility] at the [facility]. To Cancel an appointment, please choose one of the following: - Call the Appointment Call Center at [phone] - From [email or web address], Go to Appointments - Cancel Appts If cancelling, consider your need to reschedule to prevent further delays in your care. To Schedule an appointment, please choose one of the following: - Call the Appointment Call Center at [phone] - From [email or web address], Go to Appointments - Request an Appt documented in this encounterK[facility]11-18-2022 Miscellaneous Notes* Telephone Encounter - Corey Rainey MD - 03/08/2022 5:23 PM EST 01/2022: TSH: 0.62 Corey Rainey MD * Telephone Encounter - Nany Garay - 03/06/2022 9:07 AM EST Uploaded labs from [facility] received on 02/21/2022 scanned into chart for review TSH results Nany Garay [employer]vel [employer] II [facility] documented in this [facility]11-15-2022 Miscellaneous Notes* Telephone Encounter - Yelena Jiang - 03/05/2022 1:59 PM EST 03/05/2022-INTAKE COMPLETED- US COMPLETED LOCALLY-TSH COMPLETED LOCALLY- REQUESTED SLIDES FROM [facility] FROM [facility]. ENDOCRINE SURGERY PATIENT WORKSHEET Initial Call Date: March 05, 2022 Reason for Consult/ Referral: Thyroid Nodule PATIENT DEMOGRAPHICS Name: Catherine Bui CCF#: [id number] : 1975 AGE: [age] year old Contact Numbers: Home: (home) Work: There is no work phone number on file. PATIENT PHYSICIAN INFORMATION Referring Doctor: Address: Phone: Saw Grinder: Address: Phone: PCP: Luciano Nails MD [address] [place] [address] PAST TREATMENT Office notes: SEE [facility] Medications: NONE THAT APPLY Pre-Visit Testing STUDY/TEST DATE ORDERED/REQUESTED DATE RECEIVED/COMPLETED ENTIRE PANEL TSH COMPLETED LOCALLY-SCANNED INTO [facility] FREE T4 FREE T3 Imaging Reports: SEE [facility] CD of Images: SEE [facility] FNA: yes: 01/09,05/12 FNA Slides: Slides requested from outside facility (Date received: ) Has the patient ever had thyroid or parathyroid surgery before: Yes: Thyroid (Date: ? 2007) Operative Reports: SEE [facility] Pathology Reports: SEE EPIC documented in this encounterK[facility]10-21-2022 NoteHNO ID: [id number] Author: Corey Rainey MD Service: ? Author Type: Physician Type: Progress Notes Filed: 02/08/2022 2:11 PM Note Text: Endocrinology Initial Thyroid Assessment Catherine Bui, virtual visit is here for a consultation upon the request of PCP regarding: thyroid nodule Patient consented to the Visit Name and confirmed My final recommendations will be communicated back by way of shared medical record or by US mail. PCP is Luciano Nails MD, MD Luciano Nails MD [address] [place] [address] History of Present Illness Catherine Bui is a 46 year old female [...] reflux since her bypass surgery in 2018 Lost around 115 lbs Had an EGD prior to her bypass surgery Patient is taking levothyroxine? No History of CT scan or vascular procedure with intravenous contrast within the last 4 months? no History of ionizing radiation to the head, neck or chest? no Intake of iodine/kelp/seaweed: no Ruffin: no Steroids: no Warfarin: no Amiodarone: no [...] TSH: 0.58 Cytology 01/20 (more content not included)...[facility]10-21-2022 History of Present illness Narrative* Corey Rainey MD - 02/08/2022 1:09 PM EDT Images from the original note were not included. Endocrinology Initial Thyroid Assessment Catherine Bui, virtual visit is here for a consultation upon the request of PCP regarding: thyroid nodule Patient consented to the Visit Name and confirmed My final recommendations will be communicated back by way of shared medical record or by US mail. PCP is Luciano Nails MD, MD Luciano Nails MD [address] [place], [place] [id number] History of Present Illness Catherine Bui is a 46 year old female with PMH of Thyroid nodules s/p left lobectomy 1999 (benign), left vocal cord paralysis, right thyroid nodules, Obesity s/p Gastric bypass in 2019, Hx of GERD andMigraines, visit for evaluation of right thyroid nodules. Hx of left lobectomy in 1999 - benign Has been monitored for the right sided nodules since then Right sided nodule measuring 6 mm in 01/2014, 1.9 x 1.6 x 1 cm in 11/2020 and 2.2 x 1.8 x 1.4 cm in11/2021 FNA of right upper and mid nodules [...] or chest? no Intake of iodine/kelp/seaweed: no Ruffin: no Steroids: no Warfarin: no Amiodarone: no [...] Thyroid US 11/2020: Thyroid US 11/2021: Impression/Recommendations Catherine Bui is a 46 year old female with PMH of Thyroid nodules s/p left lobectomy 1999 (benign), left vocal cord paralysis, right thyroid nodules, Obesity s/p Gastric bypass in 2019, Hx of GERD andMigraines, visit for evaluation of right thyroid nodules. [...] 11/2020 and 2.2 x 1.8 x 1.4 cmin 11/2021 -- FNA of right upper and [...] reflux since her bypass surgery in 2019 -- Had an EGD prior to her [...] with other HCPs (not separately reported). Corey Rainey MD [facility] note Author Rony Dixon [facility] Note Date/Time July 26, 2024 8:52 am [facility] Medical Records Department [address] [place] [address] Pre-Anesthesia Evaluation 07/26/24 0851 MR#: [id number] Acct: [id number] Name: CATHERINE BUI Rep #:[id number] : 1975 48 From: Rony Dixon MD PCP: ALEXANDREA Armando Status:REG SDC Y Race: C Location: [place] [id number] ASA Classification* ASA Classification ASA Classification: 2 Assessment & Plan Anesthesia* Anesthesia Assessment Anesthesia Assessment: Discussed sedation and/or anesthesia options, risks, benefits, and alternatives with patient/parents/legal guardian/POA. Questions invited. The patient/parents/legal guardian/POA seems to understand and agrees to proceedwith anesthesia plan. Reviewed the physical assessment, medical history, allergy history and patient home medications list prior to surgery/procedure/anesthetic and documented any changes. Performed airway and anesthesia risk assessments. Anesthesia Type Anesthesia Type: MAC Anesthesia Focused Assessment* Airway Assessment Mouth opens: >3 cm Mallampati Score: II Focused Labs Anesthesia Preop lab: CBC WBC 9.0 K/mm3 (4.4-11.0) 06/22/24 13:20 06/22/24 RBC 4.82 M/mm3 (4.2-5.4) 06/22/24 13:20 06/22/24 Hgb 14.5 g/dL (12.0-15.0) 06/22/24 13:20 06/22/24 Hct 43.0 % (37-47) 06/22/24 13:20 06/22/24 Plt Count 337 K/mm3 (150-450) 06/22/24 13:20 06/22/24 CHEMISTRY Potassium 4.0 mmol/L (3.3-5.1) 06/22/24 13:20 06/22/24 Sodium 139 mmol/L (133-145) 06/22/24 13:20 06/22/24 Magnesium 2.1 mg/dL (1.6-2.6) 03/07/23 12:15 03/07/23 Phosphorus 3.6 mg/dL (2.5-4.9) 12/13/22 06:06 12/13/22 BUN 5 mg/dL (4-19) 06/22/24 13:20 06/22/24 Creatinine 0.59 mg/dL (0.70-1.20) L 06/22/24 13:20 Glucose 85 mg/dL (70-99) 06/22/24 13:20 06/22/24 TSH 1.64 uIU/mL (0.358-3.74) 10/30/23 09:11 COAG PT 13.3 SECONDS (11.7-14.9) 07/07/23 14:19 Pre-Assessment Diagnosis/Proposed Procedure Planned Operative Procedure(s): CAUDAL EPIDURAL STEROID INJECTION UNDER FLUOROSCOPY Anesthesia History 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 When Was Last Pacemaker Check QUESTION #4 FULL TEXT: You/Your Family Experience fever (hyperthermia) with Anesthesia Last Oral Intake Last Oral intake: Last Oral Intake NPO since Meds taken in AM with sips of water? 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 Female Yes 07/22/24 09:40 HX of Motion Sickness No 07/22/24 09:40 HX of N/V After Surgery Yes 07/22/24 09:40 Non-Smoker Yes 07/22/24 09:40 Duration of Surgery greater No 07/22/24 09:40 than 60 minutes Number of Risk Factors 3 07/22/24 09:40 PONV Score Moderate Risk 07/22/24 09:40 Height & Weight Height & Weight: Anesthesia: Height & Weight Height 5 ft 4 in 07/06/24 14:24 Respiratory Assessment Respiratory Assessment - diesel locomotive engineer: Respiratory Tract Infection Hx - diesel locomotive engineer Hx Respiratory Tract Infection No 07/22/24 09:40 STOP Sleep Apnea STOP Sleep Apnea - diesel locomotive engineer: STOP Sleep Apnea - diesel locomotive engineer Hx Hypertension Yes: CONTROLLED WITH MED 07/22/24 09:40 Hx Sleep Apnea Yes 07/22/24 09:40 CPAP Yes 07/22/24 09:40 BIPAP No 07/22/24 09:40 Do you snore loudly (louder than talking or can be heard Do you often feel tired/ fatigued/ sleepy during daytime? Has anyone observed you stop breathing during sleep? STOP Results Positive 07/22/24 09:40 QUESTION #5 FULL TEXT : Do you snore loudly (louder than talking or can be heard through closed doors)? 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 Specify any problems Hx of Preganancy in last 3 No 07/22/24 09:40 Months Nurse Filling Out Transfusion DSCHRIBER 07/22/24 09:40 & Questions: Date: 07/22/24 07/22/24 09:40 Time: 09:43 07/22/24 09:40 Patient unable to answer at this time (ie. confused, unrespo /Reproduction History /Reproductive History - diesel locomotive engineer: /Reproductive Hx- diesel locomotive engineer Hx Now No 07/22/24 09:40 Gestational Age (in weeks): EDC: Hx Hx Para Hx Section SAB No 07/22/24 09:40 [facility] Medical History Back pain Blood disorder Syncope MGUS (monoclonal gammopathy of unknown significance) Colon cancer screening GI bleed Mass of skin of left lower leg Wears glasses Thyroid disease Low iron Migraine headache History of hiatal hernia History of IBS Non-smoker Vocal cord dysfunction Hypertension URI (upper respiratory infection) Suspected COVID-19 virus infection Breast cancer screening Localized swelling on left hand Chronic constipation Elevated blood pressure reading in office without diagnosis of hypertension Hemangioma Preventative health care Chronic left hip pain Right thyroid nodule GERD (gastroesophageal reflux disease) Essential hypertension DM 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 Home Medications ?Medication ?Instructions ?Recorded ?Last Taken ?Type calcium carbonate (Calcium 600) 600 mg PO DAILY 05/18/24 History cholecalciferol (vitamin D3) 10 10 mcg PO DAILY 05/18/24 History mcg (400 unit) capsule cyanocobalamin (vitamin B-12) 50 50 mcg PO DAILY 09/2505/18/24 History mcg tablet (Vitamin B-12) magnesium 200 mg tablet 200 mg PO DAILY 09/25/20 History potassium 99 mg PO DAILY 12/15/2004/22 History sumatriptan succinate 50 mg tablet See Rx Instructions PO .COMPLEX 07/24/21 05/18/24 Rx (Imitrex) #14 tabs linaclotide 290 mcg capsule 290 mcg PO DAILY PRN PRN D iarrhea 09/05/22 05/18/24 Rx (Linzess) #90 caps cyclobenzaprine 10 mg tablet See Rx Instructions .Rout e 01/29/23 Unknown Rx .COMPLEX #60 tabs ferrous sulfate 325 mg (65 mg 325 mg PO DAILY 04/01/23 05/15/24 History iron) tablet fexofenadine 180 mg tablet 180 mg PO DAILY 04/18/23 History (Aller-Fex) hydroxyzine HCl 25 mg tablet 25 mg PO PRN PRN itching 04/18/23 Unknown History buspirone 5 mg tablet 7.5 mg PO TID 09/12/2305/18 History ursodiol 250 mg tablet 250 mg PO BID #60 tabs 09/1105/18/24 Rx semaglutide 1 mg/dose (4 mg/3 mL) 1 mg subcut MOFR 02/1107/19/24 History subcutaneous pen injector pantoprazole 40 mg tablet,delayed 40 mg PO BID #120 TA BLETS 03/17/24 05/19/24 Rx release sucralfate 1 gram tablet 1 g PO TIDAC 30 days #90 tab s 03/17/24 05/18/24 Rx amlodipine 5 mg tablet 10 mg PO QHS 07/06/24 Unknow n History duloxetine 20 mg capsule,delayed 40 mg PO BID Fibromya lgia 07/06/24 Unknown History release (Cymbalta) Allergy/AdvReac Type Severity Reaction Status Date / Time NSAIDS (Non-Steroidal Allergy unknown Verified 07/22/24 09:37 Anti-Inflamma Penicillins Allergy Rash Verified 07/22/24 09:37 sulfamethoxazole (From Allergy rash Verified 07/22/24 09:37 Bactrim) trimethoprim (From Bactrim) Allergy rash Verified 07/22/24 09:37 Family History Aunt Cancer uterine cancer Brother Asthma Sister Autoimmune disorder Other Breast cancer Diabetes Heart disease Hypertension Myocardial infarction Parkinson disease Surgical History Hx of colonoscopy History of esophagogastroduodenoscopy (EGD) History of surgical removal of ganglion cyst History of hysterectomy Gastric bypass status for obesity H/O section S/P thyroid surgery Hx of cholecystectomy Social History Smoking Status: Never smoker Review of Systems (Anesthesia) ROS Narrative System reviewed and no additional complaints, except as documented. 07/26/24851 <Electronically signed by Rony Dixon MD > Date _ Rony Dixon MD Cosigner Signature: Date CC: ~ Signed [facility] Work Phone: Consult note Author [facility] Note Date/Time July 26, 2024 10:[address] [place] [address] Medical Records Department [address] [place] [id number] Anesthesia Postop Eval I 07/26/24 1010 MR#: [id number] Acct: [id number] Name: CATHERINE BUI ANN Rep #:[id number] : 1975 48 From: Ruth Varghese PCP: ALEXANDREA Armando Status:REG SDC Y Race: C Location: [place] [address] Anesthesia: Postop Eval I Current Vital Signs Temperature: 98.4 F Pulse Rate: 66 Blood Pressure: 110/74 Respiratory Rate: 18 Pulse Ox: 97 Assessment Airway patent: Yes Spontaneous unlabored respirations: Yes nausea: No Vomiting: No Anesthesia Complication: No Fluid Hydration Crystalloid volume administer (ml): 10 Total IV fluid infused: 10 Progress Note Anesthesia document: Postop Eval 1 completed: Yes 07/26/24 1011 <Electronically signed by Ruth vigil> Date _ Ruth Varghese Cosigner Signature: Date CC: ~ Signed [facility] Work Phone: Consult note Author Rony Dixon [facility] Note Date/Time July 26, 2024 10:4 6am [facility] Medical Records Department [address] [place] [address] Anesthesia Postop Eval II 07/26/24 1034 MR#: [id number] Acct: [id number] Name: CATHERINE BUI Rep #:[id number] : 1975 48 From: Rony Dixon MD PCP: ALEXANDREA Armando Status:REG [facility] Y Race: C Location: [place] [address] Anesthesia Postop Eval I Sum Postop Eval Completion status Anesthesia document: Postop Eval 1 completed: Yes Anesthesia Postop Eval I Summary Anesthesia Postop Eval I Summary: Anesthesia Postop Eval I: Assessment Summary Airway patent Yes 07/26/24 10:10 [email or web address] [email or web address] Spontaneous unlabored Yes 07/26/24 10:10 JUNIOR [email or web address] respirations Mental status nausea No 07/26/24 10:10 JUNIOR [email or web address] Vomiting No 07/26/24 10:10 JUNIOR [email or web address] Anesthesia Postop Eval I: Fluid Summary Crystalloid volume administer 10 07/26/24 10:10 JUNIOR [email or web address] (ml) Colloids volume administered ( ml) Blood Product volume administered (ml) Total IV fluid infused 10 07/26/24 10:10 JUNIOR [email or web address] Anesthesia Postop Eval I: Summary Notes Anesthesia Complication No 07/26/24 10:10 JUNIOR [email or web address] Anesthesia Complication Comment: Post-operative progress note Anesthesia: Postop Eval II Evaluation Mental status: Awake Pain Level: 0 nausea: No Vomiting: No 07/26/24 1034 <Electronically signed by Rony Dixon MD > Date _ Rony Dixon MD Cosigner Signature: Date CC: ~ Signed [facility] Work Phone: Evaluation note* Diagnosis Onset Date Resolution Status Hypertension chronic Ganglion cyst noneactive Right otitis externa noneact vince De Quervain's tenosynovitis, left acute Ganglion cyst of volar aspect of wrist acute Dermatitis noneactive Ganglion cyst of volar aspect of wrist acute Gastric bypass status for obesity acute Chronic dental pain noneacti ve [facility] Work Phone: Evaluation note* Diagnosis Onset Date Resolution Status Ganglion cyst of volar aspect of wrist acute Gastric bypass status for obesity acute Chronic dental pain noneacti ve Cystic thyroid nodule acute S/P thyroid surgery acute Vocal cord paralysis, unilateral complete acute [facility] Work Phone: Evaluation note* Diagnosis Dysphagia, unspecified type- Primary Uninodular goiter (nontoxic) Nontoxic uninodular goiter [facility] Diagnosis Onset Date Resolution Status Ganglion cyst of volar aspect of wrist acute Gastric bypass status for obesity acute Chronic dental pain noneacti ve Cystic thyroid nodule acute S/P thyroid surgery acute Vocal cord paralysis, unilateral complete acute Pruritus noneactive Contact dermatitis noneactiv e [facility] Work Phone: Evaluation note* Diagnosis Uninodular goiter (nontoxic)- Primary Nontoxic uninodular goiter [facility] Diagnosis Uninodular goiter (nontoxic) Nontoxic uninodular goiter [facility] Diagnosis Onset Date Resolution Status Cystic thyroid nodule acute S/P thyroid surgery acute Vocal cord paralysis, unilateral complete acute Pruritus noneactive Contact dermatitis noneactiv e Cystic thyroid nodule acute Dysphagia acute Gastric bypass status for obesity acute Vocal cord paralysis, unilateral complete acute [facility] Work Phone: Evaluation note* Diagnosis Onset Date Resolution Status Cystic thyroid nodule acute Dysphagia acute Gastric bypass status for obesity acute Vocal cord paralysis, unilateral complete acute Acute maxillary sinusitis no neactive Mass of skin of left lower leg acute Hypertension chronic [facility] Work Phone: Evaluation note* Diagnosis Onset Date Resolution Status Acute maxillary sinusitis no neactive Mass of skin of left lower leg acute Hypertension chronic [facility] Work Phone: Evaluation note* Diagnosis Onset Date Resolution Status Anemia acute Bright red blood per rectum acute Chipped tooth acute Elevated blood sugar acute Hematemesis acute History of gastric bypass [place] Laceration of lower lip acut e Syncope acute [facility] Work Phone: Evaluation note* Diagnosis Onset Date Resolution Status Anemia acute Chipped tooth acute History of gastric bypass ac [place] Bright red blood per rectum resolved Elevated blood sugar resolve d Hematemesis resolved Laceration of lower lip reso lved Syncope resolved [facility] Work Phone: Evaluation note* Diagnosis Onset Date Resolution Status Anemia acute Chipped tooth acute History of gastric bypass ac [place] Bright red blood per rectum resolved Elevated blood sugar resolve d Hematemesis resolved Laceration of lower lip reso lved Syncope resolved Anemia acute GI bleed acute History of gastric bypass ac [place] Hematemesis resolved Syncope resolved [facility] Work Phone: Evaluation note* Diagnosis Onset Date Resolution Status Anemia acute Chipped tooth acute History of gastric bypass [place] Bright red blood per rectum resolved Elevated blood sugar resolve d Hematemesis resolved Laceration of lower lip reso lved Syncope resolved Anemia acute GI bleed acute History of gastric bypass [place] Hematemesis resolved Syncope resolved Colon cancer screening acute Preventative health care acu te [facility] Work Phone: Evaluation note* Diagnosis Onset Date Resolution Status Anemia acute GI bleed acute History of gastric bypass [place] Hematemesis resolved Syncope resolved Colon cancer screening acute Preventative health care acu te [facility] Work Phone: Evaluation note* Diagnosis Onset Date Resolution Status Colon cancer screening acute Preventative health care acu te Dysphagia acute Vocal cord paralysis, unilateral complete acute Cystic thyroid nodule chroni c [facility] Work Phone: Evaluation note* Diagnosis Onset Date Resolution Status Dysphagia acute Vocal cord paralysis, unilateral complete acute Cystic thyroid nodule chroni c Low back pain acute MGUS (monoclonal gammopathy of unknown significance) chronic Colon cancer screening acute GI bleed acute [facility] Work Phone: Evaluation note* Diagnosis Onset Date Resolution Status Dysphagia acute Vocal cord paralysis, unilateral complete acute Cystic thyroid nodule chroni c Low back pain acute MGUS (monoclonal gammopathy of unknown significance) chronic Colon cancer screening acute GI bleed acute MGUS (monoclonal gammopathy of unknown significance) [facility] Work Phone: Evaluation note* Diagnosis Onset Date Resolution Status Low back pain acute MGUS (monoclonal gammopathy of unknown significance) chronic Colon cancer screening acute GI bleed acute MGUS (monoclonal gammopathy of unknown significance) [facility] Work Phone: Evaluation note* Diagnosis Onset Date Resolution Status MGUS (monoclonal gammopathy of unknown significance) [facility] Work Phone[facility] Work Phone: Reason for referral (narrative)No reason for referral information [facility] [place] Work [facility]: Summary Purpose Family History No Family History Records Found Relationship Condition Age at Onset Recorded Date/T amairani Not Specified Diabetes mellitus Unknown Cardiac disease Unknown Myocardial infarction Unknown Malignant neoplasm of breast Unknown Hypertension Unknown Parkinson's disease Unknown aunt Malignant neoplasm Unknown brother Asthma Unknown sister Autoimmune disorder Unknown Advance Directives No Advanced Directives Records FoundDocuments on File Type Date Recorded Patient Historian Research Assistant Expl anation Advance Directives and Living Will Power of Loss Prevention Analyst Latest Code Status on File Code Status [...] Documents on File Type Date Recorded Patient Historian Research Assistant Expl anation ACP-Advance Directive ACP-Power of Loss Prevention Analyst Advance Directive Response Recorded Date/ Time Advance Directives No September 25 3:20pm Living Will No April 03 11:48am Power of Loss Prevention Analyst No April 03, 2021 11:48am Advance Directive Response Recorded Date/ Time Advance Directives No September 25 2:20pm Living Will No March 20 10:44am Power of Loss Prevention Analyst No March 20, 2022 10:44am Advance Directive Response Recorded Date/ Time Advance Directives No September 25 3:20pm Living Will No March 20 11:44am Power of Loss Prevention Analyst No March 20, 2022 11:44am Advance Directive Response Recorded Date/ Time Advance Directives No September 25 3:20pm Living Will No October 29, 2022 5:26am Power of Loss Prevention Analyst No October 29 5:26am Advance Directive Response Recorded Date/ Time Advance Directives No September 25 3:20pm Living Will No October 29, 2022 12:47pm Power of Loss Prevention Analyst No October 29 12:47pm Advance Directive Response Recorded Date/ Time Advance Directives No September 25 2:20pm Living Will No October 29, 2022 11:47am Power of Loss Prevention Analyst No October 29 11:47am Advance Directive Response Recorded Date/ Time Advance Directives No September 25 2:20pm Living Will No April 22 4 9:59am Power of Loss Prevention Analyst No April 22 9:59am Advance Directive Response Recorded Date/ Time Advance Directives No September 25 3:20pm Living Will No April 22 4 10:59am Power of Loss Prevention Analyst No April 22 10:59am Advance Directive Response Recorded Date/ Time Living Will No May 18 12:20pm Do you have a Healthcare Power of Loss Prevention Analyst? No May 18, 2024 12:20pm Living Will No July 22, 2024 9:40am Do you have a Healthcare Power of Loss Prevention Analyst? No July 22, 2024 9:40am Advance Directives No September 25 3:20pm Advance Directive Response Recorded Date/ Time Living Will No July 22, 2024 9:40am Do you have a Healthcare Power of Loss Prevention Analyst? No July 22, 2024 9:40am Advance Directives No September 25 3:20pm Discharge Instructions * Instructions* Sofy Berman, MYRA, LD - 12/28/2018 [facility] - Surgery [facility] Physicians Surgery Patient Name: Catherine Bui Date: @TODAY@ DISCHARGE INSTRUCTIONS Thank you very much for allowing me to participate in your care, it is truly a privilege. Below please see discharge orders that will help you during your recovery. Please do not hesitate to call theoffice during the day at [phone] for any questions. After hours, the same number will allow you to reach the on-call surgeon. Please remove the Steri-Strips 5 days after surgery. You may be instructed by nursing staff to either leave them on until you see Dr. Romreo or they will fall off on their [...] and get well soon! [facility] CLAIMS CONFIGURATION ANALYST DISCHARGE INSTRUCTIONS The following information was reviewed with the patient, the patient was given a hard copy of theseinstructions by the Bariatric personal shopper, and the instructions were signed by the patient. Post-Operative Patient Instructions Laparoscopic Milvia-en-Y Gastric Bypass Procedure 1. You may shower [...] infected (swelling, redness, drainage, pain) please notify senior account manager. 4. Take your temperature twice a day [...] drainage in the grenade. The color will change management administrator time. Normal color changes include Red ? [place] ? [place]/Yellow ? [place] and will always be clear [...] directed by your surgeon and your nurse rn field case manager. Make an appointment with your [...] device after surgery. 22. Please call the Bariatric Care Center at [phone] if you have any questions or concerns during business hours: Mon.-Fri. 8:00 a.m. - 4:30 p.m. The answering service may be called during non-business hours at [phone] 23. If you have a medical emergency, [...] office visits with your surgeon at the [facility] are located in the discharge folder. [facility] DIETITIAN DISCHARGE INSTRUCTIONS The following information [...] diet(s), please contact the Bariatric Dietitians at [phone]. MYRA [address], LD [facility] [...] through Care Everywhere. * Gastric Bypass: Laparoscopic Milvia-en-Y: Pre-op ([place]) documented in this encounter History of Present Illness * Katarina Cheek RN - 12/29/2018 2:42 PM EDT Bariatric personal shopper Note POD #1 - PM Patient s/p [...] RN - 12/29/2018 9:15 AM EDT Bariatric personal shopper Note - POD #1 - AM Patient [...] Castro MD - 12/29/2018 7:31 AM EDT [facility] - Surgery [facility] Patient Name: Catherine Bui Date: 12/29/2018 [facility]-General Surgery/Bariatric Progress Note Subjective: The patient [...] Alen Rodriguez MD, 2.5 mg at 12/28/18 2223 ketorolac (TORADOL) injection 30 mg, 30 mg, Intravenous, Q6H, Alen Rodriguez MD, 30 mg at 12/29/18 0609 heparin (porcine) injection 5,000 Units, 5,000 Units, [...] injection 0.5 mL, 0.5 mL, Intramuscular, Once, Jagdish Romero MD Continuous Infusions: IV infusion builder [...] Romero MD - 12/29/2018 2:13 PM EDT [facility] - Surgery [facility]ariat[facility] Care Center Patient Name: Catherine Bui Date: 12/29/18 MIS-General Surgery/Bariatric Progress Note [...] PLT -- 254 BMP: Recent Labs 12/28/18 10312/29/18 0414 NA 135 137 K 4.6 4.4 [...] service as well as the bariatric nurse rn field case manager. * Kandi Koroma RN - [...] Called sds and gave room number to financial recruiter. To send family to room to meet [...] 2 diabetes mellitus with complication, unspecified whether moth exterminator insulin use (HCC) Gastroesophageal reflux disease, esophagitis presence not specified Diagnosis PETER on CPAP Obstructive sleep apnea (adult) (pediatric) Hypertension, unspecified type Screening for diabetes mellitus Prediabetes Other abnormal glucose Hospital Course Note Physician Discharge Summary Patient ID: Catherine Bui [id number] y.o. 1975 Admit date: 12/28/2018 Discharge [...] not included)... Note OPERATIVE NOTE DATE OF PROCE DUR: 12/28/2018 SURGEON: John Romero MARKETING FINANCIAL ANALYST: Alen Sapp MD PREOPERATIVE DIAGNOSIS: ? PETER ? DM ? HTN ? GERD ? Hiatal Hernia ? Hepatic Steatosis ? Morbid Obesity POSTOPERATIVE DIAGNOSIS: ? PETER ? DM ? HTN ? GERD ? Hiatal Hernia ? Hepatic Steatosis ? Morbid Obesity OPERATION: ? Laparoscopic Milvia-en-Y gastric bypass ? Laparoscopic Hiatal Hernia repair [...] Procedure Findings Note OPERATIVE NOTE DATE OF PROCE : 12/28/2018 SURGEON: John Romero MARKETING FINANCIAL ANALYST: Alen Sapp MD PREOPERATIVE DIAGNOSIS: ? PETER ? DM ? HTN ? GERD ? Hiatal Hernia ? Hepatic Steatosis ? Morbid Obesity POSTOPERATIVE DIAGNOSIS: ? PETER ? DM ? HTN ? GERD ? Hiatal Hernia ? Hepatic Steatosis ? Morbid Obesity OPERATION: ? Laparoscopic Milvia-en-Y gastric bypass ? Laparoscopic Hiatal Hernia repair [...] the proposed procedur (more content not included)... Chief Complaint and Reason for Visit Chief Complaint 1 M FU LEFT WRIST SPOT ON BACK NODULE 3 m fu Reason for Visit Hypertension Ganglion cyst Right otitis externa De Quervain's tenosynovitis, left Ganglion cyst of volar aspect of wrist Dermatitis Ganglion cyst of volar aspect of wrist Gastric bypass status for obesity Chronic dental pain Chief Complaint NODULE 3 m fu 6 M FU THYROID PRE OP Reason for Visit Ganglion cyst of vol ar aspect of wrist Gastric bypass status for obesity Chronic dental pain Cystic thyroid nodule S/P thyroid surgery Vocal cord paralysis, unilateral complete Chief Complaint 3 m fu 6 M FU THYROID PRE OP PRE OP ITCHY, RASH Reason for Visit Ganglion cyst of vol ar aspect of wrist Gastric bypass status for obesity Chronic dental pain Cystic thyroid nodule S/P thyroid surgery Vocal cord paralysis, unilateral complete Pruritus Contact dermatitis Chief Complaint 6 M FU THYROID PRE OP PRE OP ITCHY, RASH Esophagogastroduodenoscopy Reason for Visit Cystic thyroid nodul e S/P thyroid surgery Vocal cord paralysis, unilateral complete Pruritus Contact dermatitis Cystic thyroid nodule Dysphagia Gastric bypass status for obesity Vocal cord paralysis, unilateral complete Chief Complaint Esophagogastroduoden oscopy POSSIBLE SINUS INFECTION 6 m fu MASS OF LEFT LOWER LEG, SCREENING Reason for Visit Cystic thyroid nodul e Dysphagia Gastric bypass status for obesity Vocal cord paralysis, unilateral complete Acute maxillary sinusitis Mass of skin of left lower leg Hypertension Chief Complaint POSSIBLE SINUS INFEC TION 6 m fu MASS OF LEFT LOWER LEG, SCREENING LEFT ANKLE [id number] LFT ACHILLES TENDONITIS / RX HERE Reason for Visit Acute maxillary sinu sitis Mass of skin of left lower leg Hypertension Chief Complaint LEFT ANKLE M7662 LFT ACHILLES TENDONITIS / RX HERE GI BLEED Reason for Visit Anemia Bright red blood per rectum Chipped tooth Elevated blood sugar Hematemesis History of gastric bypass Laceration of lower lip Syncope Chief Complaint LEFT ANKLE M7662 LFT ACHILLES TENDONITIS / RX HERE GI BLEED GI BLEED GI BLEED GI BLEED GI BLEED GI BLEED GI BLEED Reason for Visit Anemia Bright red blood per rectum Chipped tooth Elevated blood sugar Hematemesis History of gastric bypass Laceration of lower lip Syncope Chief Complaint LEFT ANKLE M7662 LFT ACHILLES TENDONITIS / RX HERE GI BLEED GI BLEED GI BLEED GI BLEED GI BLEED GI BLEED GI BLEED GI BLEED E ORDER Reason for Visit Anemia Chipped tooth History of gastric bypass Bright red blood per rectum Elevated blood sugar Hematemesis Laceration of lower lip Syncope Chief Complaint LEFT ANKLE M7662 LFT ACHILLES TENDONITIS / RX HERE GI BLEED GI BLEED GI BLEED GI BLEED GI BLEED GI BLEED GI BLEED GI BLEED E ORDER [facility] ER FOLLOW UP Reason for Visit Anemia Chipped tooth History of gastric bypass Bright red blood per rectum Elevated blood sugar Hematemesis Laceration of lower lip Syncope Anemia GI bleed History of gastric bypass Hematemesis Syncope Chief Complaint LEFT ANKLE M7662 LFT ACHILLES TENDONITIS / RX HERE GI BLEED GI BLEED GI BLEED GI BLEED GI BLEED GI BLEED GI BLEED GI BLEED E ORDER [facility] ER FOLLOW UP [facility] Reason for Visit Anemia Chipped tooth History of gastric bypass Bright red blood per rectum Elevated blood sugar Hematemesis Laceration of lower lip Syncope Anemia GI bleed History of gastric bypass Hematemesis Syncope Colon cancer screening Preventative health care Chief Complaint LFT ACHILLES TENDONI TIS / RX HERE GI BLEED GI BLEED GI BLEED GI BLEED GI BLEED GI BLEED GI BLEED GI BLEED E ORDER [facility] ER FOLLOW UP [facility] Reason for Visit Anemia Chipped tooth History of gastric bypass Bright red blood per rectum Elevated blood sugar Hematemesis Laceration of lower lip Syncope Anemia GI bleed History of gastric bypass Hematemesis Syncope Colon cancer screening Preventative health care Chief Complaint E ORDER [facility] ER FOLLOW UP [facility] E ORDERS Reason for Visit Anemia GI bleed History of gastric bypass Hematemesis Syncope Colon cancer screening Preventative health care Chief Complaint [facility] E ORDERS THYROID NODULE HEMATURIA REVIEW THYROID U/S FINE NEEDLE ASPIRATION OF R THYROID Reason for Visit Colon cancer screeni Preventative health care Dysphagia Vocal cord paralysis, unilateral complete Cystic thyroid nodule Chief Complaint E ORDERS THYROID NODULE HEMATURIA REVIEW THYROID U/S FINE NEEDLE ASPIRATION OF R THYROID NEW-MONOCLONOL GAMMOPATHY MONOCLONAL GAMMOPATHY H FU CP Reason for Visit Dysphagia Vocal cord paralysis, unilateral complete Cystic thyroid nodule Low back pain MGUS (monoclonal gammopathy of unknown significance) Colon cancer screening GI bleed Chief Complaint E ORDERS THYROID NODULE HEMATURIA REVIEW THYROID U/S FINE NEEDLE ASPIRATION OF R THYROID NEW-MONOCLONOL GAMMOPATHY MONOCLONAL GAMMOPATHY H FU CP Unspecified abdominal pain Reason for Visit Dysphagia Vocal cord paralysis, unilateral complete Cystic thyroid nodule Low back pain MGUS (monoclonal gammopathy of unknown significance) Colon cancer screening GI bleed Chief Complaint HEMATURIA REVIEW THYROID U/S FINE NEEDLE ASPIRATION OF R THYROID NEW-MONOCLONOL GAMMOPATHY MONOCLONAL GAMMOPATHY H FU CP Unspecified abdominal pain 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 Reason for Visit Dysphagia Vocal cord paralysis, unilateral complete Cystic thyroid nodule Low back pain MGUS (monoclonal gammopathy of unknown significance) Colon cancer screening GI bleed MGUS (monoclonal gammopathy of unknown significance) Chief Complaint NEW-MONOCLONOL GAMMO MARISOL MONOCLONAL GAMMOPATHY H FU CP Unspecified abdominal pain 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 CONSTIPATION Reason for Visit Low back pain MGUS (monoclonal gammopathy of unknown significance) Colon cancer screening GI bleed MGUS (monoclonal gammopathy of unknown significance) Chief Complaint CP Unspecified abdominal pain 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 CONSTIPATION CHEST PAIN CHEST PAIN Reason for Visit MGUS (monoclonal tiffanie mopathy of unknown significance) Chief Complaint Admit Date LUMBAR SPINE April 09, 2024 1:39pm 6 MO, LABS PRIOR July 06, 2024 1:5 9pm Reason for Visit Admit Date Degenerative disc disease at L5-S1 level April 09, 2024 1:39pm Thoracic radiculopathy April 09 1:39pm Anemia May 19, 2024 6 :15am Dysphagia May 19, 2024 6 :15am GI bleed May 19, 2024 6 :15am History of gastric bypass May 19, 2024 6:15am MGUS (monoclonal gammopathy of unknown s ignificance) July 06, 2024 1:59pm Chief Complaint Admit Date 6 MO, LABS PRIOR July 06, 2024 1:5 9pm Pain August 12, 2024 1:2 9pm Reason for Visit Admit Date Anemia May 19, 2024 6 :15am Dysphagia May 19, 2024 6 :15am GI bleed May 19, 2024 6 :15am History of gastric bypass May 19, 2024 6:15am MGUS (monoclonal gammopathy of unknown s ignificance) July 06, 2024 1:59pm Chief Complaint Admit Date 6 MO, LABS PRIOR July 06, 2024 1:5 9pm Pain August 12, 2024 1:2 9pm NODULE August 26, 2024 10:07a m Chief Complaint Admit Date 6 MO, LABS PRIOR July 06, 2024 1:5 9pm Pain August 12, 2024 1:2 9pm NODULE August 26, 2024 10:07a m 6 M FU September 09, 2024 1:47p m LABS September 15, 2024 6:08a m Reason for Visit Admit Date MGUS (monoclonal gammopathy of unknown s ignificance) July 06, 2024 1:59pm Constipation May 22nd, 2025 1:47p m GERD (gastroesophageal reflux disease) M 2024 1:47pm GI bleed September 09, 2024 1:47p m Fatty liver September 09, 2024 1:47p m Reason for Referral Specialty Diagnoses / Procedures Referred By Minoo whitehead Referred To Contact Diagnoses Uninodular goiter (nontoxic) Procedures CONSULT TO ENDOCRINE SURGERY OFFICE/OUTPATIENT [facility] 60-[place] [address] [place] [address] Referral ID Status Reason Start Date Expiration Date Visits Requested Visits Authorized [id number] Authorized PCP Requested Referral 2 02/08/2023 1 1 Specialty Diagnoses / Procedures Referred By Minoo whitehead Referred To Contact Gastroenterology Diagnoses Dysphagia, unspecified type Procedures CONSULT TO GASTROENTEROLOGY OFFICE/OUTPATIENT [facility] 60-[place] [address] [place] [address] Referral ID Status Reason Start Date Expiration Date Visits Requested Visits Authorized [id number] Authorized PCP Requested Referral 2 02/08/2023 1 1 Additional Source Comments INFORMATION SOURCE (unrecogn ized section and content) DATE CREATED AUTHOR 07/26/2018 [facility] DATE CREATED AUTHOR AUTHOR'S ORGANIZ ATION 07/27/2018 [facility] DATE CREATED AUTHOR AUTHOR'S ORGANIZ ATION 01/08/2019 [facility] DATE CREATED AUTHOR AUTHOR'S ORGANIZ ATION 01/25/2019 [facility] DATE CREATED AUTHOR AUTHOR'S ORGANIZ ATION 01/25/[address] [facility] DATE CREATED AUTHOR AUTHOR'S ORGANIZ ATION 12/17/2019 [facility] DATE CREATED AUTHOR AUTHOR'S ORGANIZ ATION 03/17/2022 [facility] DATE CREATED AUTHOR AUTHOR'S ORGANIZ ATION 09/23/2024 [facility] Goals (unrecognized section and content) Goals may be documented in a n alternate sectionGoals may be documented in an alternate sectionGoals may be documented in an alternate sectionGoals may be documented in an alternate sectionGoals may be documented in an alternate sectionGoals may be documented in an alternate sectionGoals may be documented in an alternate sectionGoals may be documented in an alternate section Source Comments (unrecognize d section and content) In the event this informatio n is protected by the Federal Confidentiality of Alcohol and Drug Abuse Patient Records regulations: The Federal rules restrict any use of the information to criminally investigate or prosecute any alcohol or drug abuse patient.[facility] the event this information is protected by the Federal Confidentiality of Alcohol and Drug Abuse Patient Records regulations: The Federal rules restrict any use of the information to criminally investigate or prosecute any alcohol or drug abuse patient.[facility] the event this information is protected by the Federal Confidentiality of Alcohol and Drug Abuse Patient Records regulations: The Federal rules restrict any use of the information to criminally investigate or prosecute any alcohol or drug abuse patient.[facility] the event this information is protected by the Federal Confidentiality of Alcohol and Drug Abuse Patient Records regulations: The Federal rules restrict any use of the information to criminally investigate or prosecute any alcohol or drug abuse patient.[facility] the event this information is protected by the Federal Confidentiality of Alcohol and Drug Abuse Patient Records regulations: The Federal rules restrict any use of the information to criminally investigate or prosecute any alcohol or drug abuse patient.[facility] the event this information is protected by the Federal Confidentiality of Alcohol and Drug Abuse Patient Records regulations: The Federal rules restrict any use of the information to criminally investigate or prosecute any alcohol or drug abuse patient.[facility] the event this information is protected by the Federal Confidentiality of Alcohol and Drug Abuse Patient Records regulations: The Federal rules restrict any use of the information to criminally investigate or prosecute any alcohol or drug abuse patient.[facility] the event this information is protected by the Federal Confidentiality of Alcohol and Drug Abuse Patient Records regulations: The Federal rules restrict any use of the information to criminally investigate or prosecute any alcohol or drug abuse patient.[facility] Reason for Visit (unrecogniz ed section and content) Reason Comments Appointment Called patient and l eft msg to call [phone] to schedule consultation with Dr. Kristofer rainey per Dr. Saeed also let patient know can schedule appointment herself on mychart Reason Comments Thyroid Nodule Reason Comments Consult FACE SHEET Reason Comments Outside Labs Results Reason Comments Thyroid Problem Specialty Diagnoses / Procedures Referred By Minoo whitehead Referred To Contact Diagnoses Uninodular goiter (nontoxic) Procedures CONSULT TO ENDOCRINE SURGERY OFFICE/OUTPATIENT [facility] 60-[place] [address] [place] [address] Referral ID Status Reason Start Date Expiration Date V isits Requested Visits Authorized [id number] Closed PCP Requested Referral 02/08/2022 02/08/2023 1 1 Care Teams (unrecognized sec tion and content) Coater Helper Relationship Specialty Start Date End Date Luciano Nails MD PCP - General Family Practice 03/03/14 Coater Helper Relationship Specialty Start Date End Date Luciano Nails MD PCP - General Family Medicine 03/03/14 Coater Helper Relationship Specialty Start Date End Date Luciano Nails MD PCP - General Family Medicine 03/03/14 Coater Helper Relationship Specialty Start Date End Date Luciano Nails MD PCP - General Family Medicine 03/03/14 Coater Helper Relationship Specialty Start Date End Date Luciano Nails MD PCP - General Family Medicine 03/03/14 Coater Helper Relationship Specialty Start Date End Date Luciano Nails MD PCP - General Family Medicine 03/03/14 Coater Helper Relationship Specialty Start Date End Date Luciano Nails MD PCP - General Family Medicine 03/03/14 Team Status: Active Member Role Status Dates Dr. Luciano Nails MD Family Provider Active Dr. Hermelinda Castillo MD Primary Care Provider Active Team Status: Inactive Member Role Status Dates Dr. Hermelinda Castillo MD Primary Care Provider, Refer ring Provider Active Giancarlo Posadas FLAT SURFACER, FLAT SURFACER-C Attending Provider Active Team Status: Inactive Member Role Status Dates Dr. Hermelinda Castillo MD Primary Care Provider Active Dr. Jose Suresh MD Attending Provider, Referring P rovider Active Team Status: Active Member Role Status Dates Dr. Hermelinda Castillo MD Primary Care Provider Active Dr. Jose Suresh MD Attending Provide r, Referring Provider, Other Provider Active Team Status: Inactive Member Role Status Dates Dr. Hermelinda Castillo MD Primary Care Provider Active Giancarlo Posadas FLAT SURFACER, FLAT SURFACER-C Attending Provider Active Team Status: Inactive Member Role Status Dates Dr. Hermelinda Castillo MD Primary Care Provider Active Dr. Jose Mccracken DPM Attending Provider, Referri ng Provider Active Team Status: Active Member Role Status Dates Dr. Hermelinda Castillo MD Primary Care Provider Active Dr. Jose Mccracken DPM Attending Provider Active Team Status: Active Member Role Status Dates Dr. Hermelinda Castillo MD Primary Care Provider Active Dr. Henok Bassett MD Emergency Provider Active Dr. Giancarlo Boyle DO Admit Provider, Attending Pro vider Active Team Status: Active Member Role Status Dates Dr. Hermelinda Castillo MD Primary Care Provider Active Dr. Henok Bassett MD Emergency Provider Active Dr. Giancarlo Boyle DO Admit Provider, Attending Provider, Other Provider Active Team Status: Active Member Role Status Dates Dr. Hermelinda Castillo MD Primary Care Provider Active Dr. Henok Bassett MD Emergency Provider Active Dr. Giancarlo Boyle DO Admit Provider, Other Provide r Active Dr. Ramez Villatoro DO Attending Provider Active Team Status: Active Member Role Status Dates Dr. Hermelinda Castillo MD Primary Care Provider Active Dr. Henok Bassett MD Emergency Provider Active Dr. Giancarlo Boyle DO Admit Provider, Other Provide r Active Dr. Ganesh Bell MD Attending Provider, Other Provid er Active Team Status: Active Member Role Status Dates Dr. Hermelinda Castillo MD Primary Care Provider Active Dr. Henok Bassett MD Emergency Provider Active Dr. Giancarlo Boyle DO Admit Provider, Other Provide r Active Dr. Ganesh Bell MD Other Provider Active Dr. Ramez Villatoro DO Attending Provider Active Team Status: Active Member Role Status Dates Dr. Hermelinda Castillo MD Primary Care Provider Active Dr. Ramez Villatoro DO Attending Provider Active Team Status: Inactive Member Role Status Dates Dr. Hermelinda Castillo MD Primary Care Provider Active Dr. Henok Bassett MD Emergency Provider Active Dr. Giancarlo Boyle DO Admit Provider, Other Provide r Active Dr. Ganesh Bell MD Attending Provider Active Team Status: Inactive Member Role Status Dates Dr. Hermelinda Castillo MD Primary Care Provider Active Dr. Ramez Villatoro DO Attending Provider Active Team Status: Inactive Member Role Status Dates Dr. Hermelinda Castillo MD Primary Care P rovider, Attending Provider, Referring Provider Active Team Status: Active Member Role Status Dates Dr. Hermelinda Castillo MD Primary Care Provider Active Dr. Henok Bassett MD Emergency Provider Active Dr. Giancarlo Boyle DO Admit Provider, Other Provide r Active Dr. Ramez Villatoro DO Attending Provider Active Dr. Ganesh Bell MD Referring Provider Active Team Status: Active Member Role Status Dates Dr. Hermelinda Castillo MD Primary Care Provider Active Dr. Henok Bassett MD Emergency Provider Active Dr. Giancarlo Boyle DO Admit Provider, Other Provide r Active Dr. Ganesh Bell MD Referring Provider, Other Provid er Active Dr. Ramez Villatoro DO Attending Provider Active Team Status: Inactive Member Role Status Dates Dr. Hermelinda Castillo MD Primary Care Provider Active Dr. Jose Mccracken DPM Attending Provider Active Team Status: Active Member Role Status Dates Dr. Hermelinda Castillo MD Primary Care Provider Active Health Risk Assessment Attending Provider, Referring P rovider Active Team Status: Inactive Member Role Status Dates Dr. Hermelinda Castillo MD Primary Care Provider Active TYLER PEÑA Attending Provider, Referring Provid er Active Team Status: Inactive Member Role Status Dates Dr. Hermelinda Castillo MD Primary Care Provider Active Dr. Ramez Villatoro DO Attending Provider, Referring Provider Active Team Status: Active Member Role Status Dates Dr. Luciano Nails MD Family Provider Active [facility] Primary Care Provider A ctive Team Status: Inactive Member Role Status Dates Dr. Hermelinda Castillo MD Referring Provider Active Dr. Jose Suresh MD Attending Provider Active [facility] Primary Care Provider A ctive Team Status: Inactive Member Role Status Dates Dr. Jose Suresh MD Attending Provider, Referring P rovider Active Giancarlo Posadas VSC, FLAT SURFACER-C Primary Care Provider Active Team Status: Inactive Member Role Status Dates Giancarlo Posadas VSC, FLAT SURFACER-C Primary Care Provid er, Attending Provider, Referring Provider Active Team Status: Active Member Role Status Dates [facility] Primary Care Provider A ctive Dr. Jose Suresh MD Attending Provider, Referring P rovider Active Team Status: Active Member Role Status Dates Dr. Luciano Nails MD Family Provider Active Giancarlo Posadas FLAT SURFACER, FLAT SURFACER-C Primary Care Provider Active Team Status: Inactive Member Role Status Dates Dr. Stephane Melgar MD Attending Provider Active Giancarlo Posadas FLAT SURFACER, FLAT SURFACER-C Primary Care Provider, Referring P rovider Active Team Status: Inactive Member Role Status Dates [facility] Primary Care Provider, Referring Provider Active Dr. Ramez Villatoro DO Attending Provider Active Team Status: Inactive Member Role Status Dates [facility] Primary Care Provider A ctive Dr. Jose Suresh MD Attending Provider, Referring P rovider Active Team Status: Inactive Member Role Status Dates Giancarlo Posadas FLAT SURFACER, FLAT SURFACER-C Primary Care Provider Active Dr. Stephane Melgar MD Attending Provider, Referring Pro vider Active Team Status: Inactive Member Role Status Dates Giancarlo Posadas FLAT SURFACER, FLAT SURFACER-C Primary Care Provider Active Dr. Cesar Lloyd MD Emergency Provider Active Team Status: Active Member Role Status Dates Giancarlo Posadas FLAT SURFACER, FLAT SURFACER-C Primary Care Provider, Referring P rovider Active Dr. Ramez Villatoro DO Attending Provider, Other Prov ider Active Team Status: Inactive Member Role Status Dates Giancarlo Katharina FLAT SURFACER, FLAT SURFACER-C Primary Care Provider, Referring P rovider Active Dr. Ramez Villatoro DO Attending Provider Active Team Status: Inactive Member Role Status Dates Giancarlo Katharina FLAT SURFACER, FLAT SURFACER-C Primary Care Provider Active Dr. Cesar Lloyd MD Attending Provider, Emergency Provider Active Team Status: Inactive Member Role Status Dates Giancarlo Katharina FLAT SURFACER, FLAT SURFACER-C Primary Care Provider Active Dr. Ramez Villatoro DO Attending Provider, Referring Provider Active Team Status: Active Member Role Status Dates Dr. Luciano Nails MD Family Provider Active Team Status: Inactive Member Role Status Dates Dr. Stephane Melgar MD Attending Provider Active Team Status: Inactive Member Role Status Dates Dr. Ramez Villatoro DO Attending Provider, Referring Provider Active Team Status: Active Member Role Status Dates Giancarlo Posadas FLAT SURFACER, FLAT SURFACER-C Primary Care Provider Active Dr. Stephane Melgar MD Attending Provider, Referring Pro vider Active Team Status: Active Member Role Status Dates Dr. Luciano Nails MD Family Provider Active Giancarlo Katharina VSC, FLAT SURFACER-C Primary Care Provider Active Team Status: Inactive Member Role Status Dates Dr. Ramez Villatoro DO Attending Provider, Referring Provider Active Giancarlo Posadas VSC, FLAT SURFACER-C Primary Care Provider Active Team Status: Active Member Role Status Dates Giancarlo Posadas VSC, FLAT SURFACER-C Primary Care Provid er, Referring Provider, Other Provider Active Dr. Maximiliano Murphy MD Attending Provider Active Team Status: Active Member Role Status Dates Giancarlo Katharina VSC, FLAT SURFACER-C Primary Care Provider Active Team Status: Inactive Member Role Status Dates Giancarlo Katharina VSC, FLAT SURFACER-C Primary Care Provider Active Start: April 09, 2024 End: April 09, 2024 Giancarlo Katharina VSC, FLAT SURFACER-C Referring Provider Active S tart: April 09, 2024 End: April 09, 2024 Dr. Joaquin Boyce MD Attending Provider Active Start: April 09, 2024 End: April 09, 2024 Team Status: Inactive Member Role Status Dates Giancarlo Katharina VSC, FLAT SURFACER-C Primary Care Provider Active Start: May 19, 2024 End: May 19, 2024 Giancarlo Katharina VSC, FLAT SURFACER-C Referring Provider Active S tart: May 19, 2024 End: May 19, 2024 Dr. Ramez Villatoro DO Attending Provider Active Start: May 19, 2024 End: May 19, 2024 Team Status: Active Member Role Status Dates Giancarlo Posadas VSC, FLAT SURFACER-C Primary Care Provider Active Start: May 19, 2024 Giancarlo LIUC, FLAT SURFACER-C Referring Provider Active S tart: May 19, 2024 Dr. Ramez Villatoro DO Attending Provider Active Start: May 19, 2024 Dr. Ramez Villatoro DO Other Provider Active St art: May 19, 2024 Team Status: Inactive Member Role Status Dates Giancarlo Posadas VSC, FLAT SURFACER-C Primary Care Provider Active Start: June 09, 2024 End: June 09, 2024 Giancarlo Posadas VSC, FLAT SURFACER-C Attending Provider Active S tart: June 09, 2024 End: June 09, 2024 Team Status: Inactive Member Role Status Dates Giancarlo Posadas VSC, FLAT SURFACER-C Primary Care Provider Active Start: July 06, 2024 End: July 06, 2024 Giancarlo Posadas VSC, FLAT SURFACER-C Referring Provider Active S tart: July 06, 2024 End: July 06, 2024 Dr. Stephane Melgar MD Attending Provider Active S tart: July 06, 2024 End: July 06, 2024 Team Status: Inactive Member Role Status Dates Giancarlo Posadas VSC, FLAT SURFACER-C Primary Care Provider Active Start: July 26, 2024 End: July 26, 2024 Dr. Primitivo Lockhart MD Attending Provider Active Start: July 26, 2024 End: July 26, 2024 Dr. Primitivo Lockhart MD Referring Provider Active Start: July 26, 2024 End: July 26, 2024 Team Status: Inactive Member Role Status Dates Giancarlo Posadas VSC, FLAT SURFACER-C Primary Care Provider Active Start: August 12, 2024 End: August 12, 2024 NP. Catherine Messer Attending Provider Active Star t: August 12, 2024 End: August 12, 2024 NP. Catherine Messer Referring Provider Active Star t: August 12, 2024 End: August 12, 2024 Team Status: Inactive Member Role Status Dates Giancarlo Posadas VSC, FLAT SURFACER-C Primary Care Provider Active Start: August 26, 2024 End: August 26, 2024 Dr. Jose Suresh MD Attending Provider Active Start: August 26, 2024 End: August 26, 2024 Dr. Jose Suresh MD Referring Provider Active Start: August 26, 2024 End: August 26, 2024 Team Status: Inactive Member Role Status Dates Giancarlo ROSA, FLAT SURFACER-C Primary Care Provider Active Start: September 09, 2024 End: September 09, 2024 Giancarlo ROSA, FLAT SURFACER-C Referring Provider Active S tart: September 09, 2024 End: September 09, 2024 CRISTY Julio Attending Provider Active Start: September 09, 2024 End: September 09, 2024 Team Status: Inactive Member Role Status Dates Giancarlo ROSA FLAT SURF[employer]ER-C Primary Care Provider Active Start: September 15, 2024 End: September 15, 2024 ALEXANDREA Griffin Attending Provider Active Start: September 15, 2024 End: September 15, 2024 ALEXANDREA Griffin Referring Provider Active Start: September 15, 2024 End: September 15, 2024 FOR RECORDS PERTAINING TO PATIENTS WHO ARE [...] BE BASED ON THE PRIMARY CLINICAL RECORDS. [facility] [employer] provides no warranty or guarantee of the accuracy or completeness of information in this document.
[2024-09-27 09:09] LABS: Absolute Lymphocyte Count 2.73 X10^3/uL (0.83-4.51); Absolute Neutrophil Count 5.7 X10^3/uL (2.0-7.7); Basophil# 0.14 X10^3/uL; Basophil% 1.5 % (0-1); Eosinophil# 0.11 X10^3/uL; Eosinophils% 1.2 % (0-5); Hematocrit 41.4 % (37-47); Hemoglobin 14.4 g/dL (12.0-15.0); Lymphocyte # 2.73 X10^3/ul (0.83-4.51); Lymphocyte % 29.1 % (19-41); Mean Corp Hgb Conc 34.8 g/dL (32-36); Mean Corpuscular Hgb 30.8 pg (27.0-32.0); Mean Corpuscular Volume 88.7 fL (81-99); Mean Platelet Vol. 10.3 fl (6.2-12.0); Monocyte# 0.63 X10^3/uL; Monocyte% 6.7 % (0-10); NRBC Flagged by Analyzer 0 % (0-5); Neutrophil # 5.74 X10^3/uL (2.7-7.7); Neutrophil % 61.1 % (47-70); Platelet Count 290 K/mm3 (150-450); RBC Distribution Width CV 12.7 % (11.6-14.6); RBC Distribution Width SD 40.7 fl (35.1-43.9); Red Blood Count 4.67 M/mm3 (4.2-5.4); White Blood Count 9.4 K/mm3 (4.4-11.0)
[2024-09-27 09:54] LABS: Ferritin 388 ng/mL (22-378); Iron 65 ug/dL (50-170); Iron Binding Capacity,Total 260 ug/dL (250-450); Iron Binding Capacity,Unsat 195 ug/dL (228-428)
== END | disposition home or self-care (01) ==
PROVIDERS: PCP Nurse Practitioner Family; Referring Provider Student in an Organized Health Care Education/Training Program; Visit Provider Student in an Organized Health Care Education/Training Program
DX: Z86.2 Personal history of diseases of the blood and blood-forming organs and certain disorders involving the immune mechanism (principal)
CPT/HCPCS: 36415; 76705; 76981; 82728; 83540; 83550; 85025

== ENCOUNTER → 2024-10-20 | Outpatient (CLI) | payer OTHER, SELFPAY ==
--- NOTE | 2024-10-20 08:55 | BI_ITS ---
PROCEDURE: DIAG MAMM W/CAD, UNILAT; RT BRST UNILAT EMRE ADD-ON; BREAST LIMITED UNILATERAL REASON FOR EXAM: 48-year-old female presents with palpable concern in the right breast and right axilla. Family history of breast cancer in a paternal grandmother. TECHNIQUE: DIAG MAMM W/CAD, UNILAT; RT BRST UNILAT EMRE ADD-ON; BREAST LIMITED UNILATERAL COMPARISON: 03/25/2024, 05/23/2022, 02/12/2021 FINDINGS: MAMMOGRAM: The breasts are heterogeneously dense which may obscure small masses. The mammogram demonstrates that the patient has dense breasts. Supplemental screening with whole breast ultrasound or MRI may be considered for further evaluation. Right breast: There are triangle skin markers indicating the area of palpable concern in the upper-outer right breast, underlying the skin marker is a small mass. This mass has been stable on multiple priors dating back to 2020 and likely represents an intramammary lymph node. Also, there is a triangle skin marker indicating the area of palpable concern in the right axilla, underlying the skin marker are no suspicious mammographic findings. There are some normal- appearing right axillary lymph nodes. Otherwise, there are no suspicious findings in the right breast. ULTRASOUND: Ultrasound was targeted to the right breast upper-outer quadrant. Ultrasound performed of the area of patient's palpable concern in the right breast at 10 o'clock 10 cm from the nipple demonstrates a normal-appearing intramammary lymph node with normal cortical thickness measuring 2.0 x 1.2 x 0.6 cm. Also, there are 3 normal-appearing right axillary lymph nodes. Otherwise, there are no suspicious sonographic findings in the upper-outer quadrant of the right breast and in the right axilla. BI/Rt Brst Unilat Emre Add-On IMPRESSION: 1. The patient's area of palpable concern in the right breast corresponds to a stable intramammary lymph node, which has been stable on multiple priors dating back to 2020. 2. The patient's area of palpable concern in the right axilla corresponds to n ormal right axillary lymph nodes. 3. There is no evidence of malignancy in the right breast. OVERALL FINAL ASSESSMENT BI-RADS 2: BENIGN RECOMMEND ANNUAL MAMMOGRAPHIC SCREENING. RECOMMENDATION: Routine annual follow-up in 1 Year The patient will be next due for a mammogram in March 2025. A letter with findings and recommendations will be mailed to the patient. Reading Location: [id number]
== END | disposition home or self-care (01) ==
LOC: OPBI 08:52
PROVIDERS: PCP Nurse Practitioner Family; Referring Provider Nurse Practitioner Family; Visit Provider Nurse Practitioner Family
DX: N63.11 Unspecified lump in the right breast, upper outer quadrant (principal); Z80.3 Family history of malignant neoplasm of breast
CPT/HCPCS: 76642; 77061; 77065; G0279

== ENCOUNTER 2024-11-08 09:08 | Day surgery (SDC) | payer OTHER, SELFPAY ==
--- NOTE | 2024-10-29 15:28 | PAT.ANE_ITS ---
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 When Was Last Pacemaker Check QUESTION #4 FULL TEXT: You/Your Family Experience fever (hyperthermia) with Anesthesia Last Oral Intake Last Oral intake: Last Oral Intake NPO since Meds taken in AM with sips of water? Meds patient instructed to take am of surgery PONV PONV - home mortgage disclosure act specialist: PONV - home mortgage disclosure act specialist Female Yes 10/29/24 13:14 HX of Motion Sickness No 10/29/24 13:14 HX of N/V After Surgery Yes 10/29/24 13:14 Non-Smoker Yes 10/29/24 13:14 Duration of Surgery greater No 10/29/24 13:14 than 60 minutes Number of Risk Factors 3 10/29/24 13:14 PONV Score Moderate Risk 10/29/24 13:14 Height & Weight Height & Weight: Anesthesia: Height & Weight Height 5 ft 4 in 07/26/24 09:11 Respiratory Assessment Respiratory Assessment - home mortgage disclosure act specialist: Respiratory Tract Infection Hx - home mortgage disclosure act specialist Hx Respiratory Tract Infection No 10/29/24 13:14 STOP Sleep Apnea STOP Sleep Apnea - home mortgage disclosure act specialist: STOP Sleep Apnea - home mortgage disclosure act specialist Hx Hypertension Yes: CONTROLLED WITH MED 10/29/24 13:14 Hx Sleep Apnea Yes 10/29/24 13:14 CPAP Yes 10/29/24 13:14 BIPAP No 10/29/24 13:14 Do you snore loudly (louder than talking or can be heard Do you often feel tired/ fatigued/ sleepy during daytime? Has anyone observed you stop breathing during sleep? STOP Results Positive 10/29/24 13:14 QUESTION #5 FULL TEXT : Do you snore loudly (louder than talking or can be heard through closed doors)? 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 Specify any problems Hx of Preganancy in last 3 No 10/29/24 13:14 Months Nurse Filling Out Transfusion DSCHRIBER 10/29/24 13:14 & Questions: Date: 10/29/24 10/29/24 13:14 Time: 13:16 10/29/24 13:14 Patient unable to answer at this time (ie. confused, unrespo /Reproduction History /Reproductive History - home mortgage disclosure act specialist: /Reproductive Hx- home mortgage disclosure act specialist Hx Now No 10/29/24 13:14 Gestational Age (in weeks): EDC: Hx Hx Para Hx Section SAB No 10/29/24 13:14 PFSH Medical History (Updated 10/29/24 @ 13:19 by Gina Murry) Anxiety Back pain Blood disorder Syncope MGUS (monoclonal gammopathy of unknown significance) GI bleed Wears glasses Thyroid disease Low iron Migraine headache History of hiatal hernia History of IBS Non-smoker Vocal cord dysfunction Breast cancer screening Hemangioma Chronic left hip pain Right thyroid nodule GERD (gastroesophageal reflux disease) Essential hypertension DM 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 Home Medications ?Medication ?Instructions ?Recorded ?Last Taken ?Type calcium carbonate (Calcium 600) 600 mg PO DAILY 05/18/24 History cholecalciferol (vitamin D3) 10 10 mcg PO DAILY 05/18/24 History mcg (400 unit) capsule cyanocobalamin (vitamin B-12) 50 50 mcg PO DAILY 09/2505/18/24 History mcg tablet (Vitamin B-12) magnesium 200 mg tablet 200 mg PO DAILY 09/25/20 History potassium 99 mg PO DAILY 12/15/20/12/13 History sumatriptan succinate 50 mg tablet See Rx Instructions PO .COMPLEX 07/24/21 05/18/24 Rx (Imitrex) #14 tabs linaclotide 290 mcg capsule 290 mcg PO DAILY PRN PRN D iarrhea 09/05/22 05/18/24 Rx (Linzess) #90 caps cyclobenzaprine 10 mg tablet See Rx Instructions .Rout e 01/29/23 Unknown Rx .COMPLEX #60 tabs ferrous sulfate 325 mg (65 mg 325 mg PO DAILY 04/01/23 05/15/24 History iron) tablet fexofenadine 180 mg tablet 180 mg PO DAILY 04/18/23 History (Aller-Fex) hydroxyzine HCl 25 mg tablet 25 mg PO PRN PRN itching 04/18/23 Unknown History buspirone 5 mg tablet 10 mg PO TID 09/12/23 History ursodiol 250 mg tablet 250 mg PO BID #60 tabs 09/1105/18/24 Rx semaglutide 1 mg/dose (4 mg/3 mL) 1 mg subcut MOFR 02/1110/28/24 History subcutaneous pen injector pantoprazole 40 mg tablet,delayed 40 mg PO BID #120 TA BLETS 03/17/24 07/26/24 Rx release sucralfate 1 gram tablet 1 g PO TIDAC 30 days #90 tab s 03/17/24 05/18/24 Rx amlodipine 5 mg tablet 10 mg PO QHS 07/06/24 Unknow n History duloxetine 20 mg capsule,delayed 20 mg PO BID Fibromya lgia 09/09/24 Unknown His tory release (Cymbalta) vitamin E (dl, acetate) 450 mg 450 mg PO QDAY 09/09/24 Unknown History (1,000 unit) capsule cariprazine 1.5 mg capsule 1.5 mg PO DAILY 10/29/24 Un known History (Vraylar) lorazepam 0.5 mg tablet (Ativan) 0.5 mg PO Q12H PRN sl eep 10/29/24 Unknown History Allergy/AdvReac Type Severity Reaction Status Date / Time NSAIDS (Non-Steroidal Allergy unknown Verified 10/29/24 13:10 Anti-Inflamma Penicillins Allergy Rash Verified 10/29/24 13:10 sulfamethoxazole (From Allergy rash Verified 10/29/24 13:10 Bactrim) trimethoprim (From Bactrim) Allergy rash Verified 10/29/24 13:10 Family History Aunt Cancer uterine cancer Brother Asthma Sister Autoimmune disorder Other Breast cancer Diabetes Heart disease Hypertension Myocardial infarction Parkinson disease Surgical History (Updated 10/29/24 @ 13:19 by Gina Murry) Hx of surgical procedure Hx of colonoscopy History of esophagogastroduodenoscopy (EGD) History of surgical removal of ganglion cyst History of hysterectomy Gastric bypass status for obesity H/O section S/P thyroid surgery Hx of cholecystectomy Social History Smoking Status: Never smoker Audit: Pertinent Findings Pertinent Findings EKG Perinent findings: 04/22/2023. Normal sinus rhythm 75 bpm normal EKG. Stress test pertinent findings: 08/05/2023. Negative. High workload. Recommendation Anesthesia Recommendation Anesthesia recommendation: OPTIMIZED for anesthesia
[2024-11-08] VITALS (8 sets, daily range): BP systolic 107–116; BP diastolic 68–83; PULSE 65–69; RESP 14–16; TEMP 2.2–37.1; O2SAT 96–99; BMI 34.1
[2024-11-08] MEDS: Lactated Ringers 1,000 ML 15 ML IV (09:39)
--- NOTE | 2024-11-08 09:46 | PCM.PRE.AN2 ---
ASA Classification* ASA Classification ASA Classification: 2 Assessment & Plan Anesthesia* Anesthesia Assessment Anesthesia Assessment: Discussed sedation and/or anesthesia options, risks, benefits, and alternatives with patient/parents/legal guardian/POA. Questions invited. The patient/parents/legal guardian/POA seems to understand and agrees to proceed with anesthesia plan. Reviewed the physical assessment, medical history, allergy history and patient home medications list prior to surgery/procedure/anesthetic and documented any changes. Performed airway and anesthesia risk assessments. Anesthesia Type Anesthesia Type: MAC History Source History Obtained from:: Patient and Chart Anesthesia Focused Assessment* Temperature: 97.8 F Pulse Rate: 67 Blood Pressure: 116/83 Respiratory Rate: 16 Pulse Ox: 99 Oxygen Delivery Method: Room Air Airway Assessment Mouth opens: >3 cm Mallampati Score: I Teeth Condition: Intact Neck Range of motion (ROM): Full ROM Labs Anesthesia Preop lab: CBC WBC 9.4 K/mm3 (4.4-11.0) 09/27/24 08:09/27/24 RBC 4.67 M/mm3 (4.2-5.4) 09/27/24 08:25 09/27/24 Hgb 14.4 g/dL (12.0-15.0) 09/27/24 08:25 09/27/24 Hct 41.4 % (37-47) 09/27/24 08:25 09/27/24 Plt Count 290 K/mm3 (150-450) 09/27/24 08:25 09/27/24 CHEMISTRY Potassium 3.9 mmol/L (3.3-5.1) 09/15/24 06:14 09/15/24 Sodium 140 mmol/L (133-145) 09/15/24 06:14 09/15/24 Magnesium 2.1 mg/dL (1.6-2.6) 03/07/23 12:15 03/07/23 Phosphorus 3.6 mg/dL (2.5-4.9) 12/13/22 06:06 12/13/22 BUN 7 mg/dL (4-19) 09/15/24 06:14 09/15/24 Creatinine 0.51 mg/dL (0.70-1.20) L 09/15/24 06:14 09/15/24 Glucose 85 mg/dL (70-99) 09/15/24 06:14 09/15/24 POC Glucose 84 mg/dL (74-106) 07/26/24 09:19 07/26/24 TSH 2.070 uIU/mL (0.300-4.200) 09/15/24 06:14 09/15/24 COAG PT 13.3 SECONDS (11.7-14.9) 07/07/23 14:19 07/07/23 Pre-Assessment Diagnosis/Proposed Procedure Planned Operative Procedure(s): RIGHT LUMBAR TRANSFORMINAL EPIDURAL L4 L5 S1 Anesthesia History 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 When Was Last Pacemaker Check QUESTION #4 FULL TEXT: You/Your Family Experience fever (hyperthermia) with Anesthesia Last Oral Intake Last Oral intake: Last Oral Intake NPO since 21:00 11/08/24 09:35 Meds taken in AM with sips of Yes 11/08/24 09:35 water? Meds patient instructed to constance navarrete buspar, 11/08/24 09:35 take am of surgery protonix PONV PONV - government documents librarian: PONV - government documents librarian Female Yes 10/29/24 13:14 HX of Motion Sickness No 10/29/24 13:14 HX of N/V After Surgery Yes 10/29/24 13:14 Non-Smoker Yes 10/29/24 13:14 Duration of Surgery greater No 10/29/24 13:14 than 60 minutes Number of Risk Factors 3 10/29/24 13:14 PONV Score Moderate Risk 10/29/24 13:14 Height & Weight Height & Weight: Anesthesia: Height & Weight Height 5 ft 4 in 11/08/24 09:35 Weight: 90.2 kg 11/08/24 09:35 Body Mass Index (BMI) 34.1 11/08/24 09:35 Respiratory Assessment Respiratory Assessment - government documents librarian: Respiratory Tract Infection Hx - government documents librarian Hx Respiratory Tract Infection No 10/29/24 13:14 STOP Sleep Apnea STOP Sleep Apnea - government documents librarian: STOP Sleep Apnea - government documents librarian Hx Hypertension Yes: CONTROLLED WITH MED 10/29/24 13:14 Hx Sleep Apnea Yes 10/29/24 13:14 CPAP Yes 10/29/24 13:14 BIPAP No 10/29/24 13:14 Do you snore loudly (louder than talking or can be heard Do you often feel tired/ fatigued/ sleepy during daytime? Has anyone observed you stop breathing during sleep? STOP Results Positive 10/29/24 13:14 QUESTION #5 FULL TEXT : Do you snore loudly (louder than talking or can be heard through closed doors)? 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 Specify any problems Hx of Preganancy in last 3 No 10/29/24 13:14 Months Nurse Filling Out Transfusion DSCHRIBER 10/29/24 13:14 & Questions: Date: 10/29/24 10/29/24 13:14 Time: 13:16 10/29/24 13:14 Patient unable to answer at this time (ie. confused, unrespo /Reproduction History /Reproductive History - government documents librarian: /Reproductive Hx- government documents librarian Hx Now No 10/29/24 13:14 Gestational Age (in weeks): EDC: Hx Hx Para Hx Section SAB No 10/29/24 13:14 Active Medications Active Medications: Current Medications Generic Name Dose Route Start Last Admin Trade Name Freq PRN Reason Stop Dose Admin Lactated Ringer's 1,000 mls @ 15 mls/hr 11/08/24 09:30 11/08/24 09:39 IV 15 mls/hr .Q48H GRISELDA Administration PFSH Medical History (Updated 10/29/24 @ 13:19 by Gina Murry) Anxiety Back pain Blood disorder Syncope MGUS (monoclonal gammopathy of unknown significance) GI bleed Wears glasses Thyroid disease Low iron Migraine headache History of hiatal hernia History of IBS Non-smoker Vocal cord dysfunction Breast cancer screening Hemangioma Chronic left hip pain Right thyroid nodule GERD (gastroesophageal reflux disease) Essential hypertension DM 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 Home Medications ?Medication ?Instructions ?Recorded ?Last Taken ?Type calcium carbonate (Calcium 600) 600 mg PO DAILY 09/25/20 05/18/24 History cholecalciferol (vitamin D3) 10 10 mcg PO DAILY 09/25/20 05/18/24 History mcg (400 unit) capsule cyanocobalamin (vitamin B-12) 50 50 mcg PO DAILY 09/25/20 05/18/24 History mcg tablet (Vitamin B-12) magnesium 200 mg tablet 200 mg PO DAILY 09/25/20 05/18/24 History potassium 99 mg PO DAILY 12/15/20 05/18/24 History sumatriptan succinate 50 mg tablet See Rx Instructions PO .COMPLEX 07/24/21 05/18/24 Rx (Imitrex) #14 tabs linaclotide 290 mcg capsule 290 mcg PO DAILY PRN PRN Diarrhea 09/05/22 05/18/24 Rx (Linzess) #90 caps cyclobenzaprine 10 mg tablet See Rx Instructions .Route 01/29/23 Unknown Rx .COMPLEX #60 tabs ferrous sulfate 325 mg (65 mg 325 mg PO DAILY 04/01/23 05/15/24 History iron) tablet fexofenadine 180 mg tablet 180 mg PO DAILY 04/18/23 05/18/24 History (Aller-Fex) hydroxyzine HCl 25 mg tablet 25 mg PO PRN PRN itching 04/18/23 Unknown History buspirone 5 mg tablet 10 mg PO TID 09/12/23 11/08/24 History ursodiol 250 mg tablet 250 mg PO BID #60 tabs 09/12/23 05/18/24 Rx semaglutide 1 mg/dose (4 mg/3 mL) 1 mg subcut MOFR 12/30/23 10/28/24 History subcutaneous pen injector pantoprazole 40 mg tablet,delayed 40 mg PO BID #120 TABLETS 03/17/24 11/08/24 Rx release sucralfate 1 gram tablet 1 g PO TIDAC 30 days #90 tabs 03/17/24 05/18/24 Rx amlodipine 5 mg tablet 10 mg PO QHS 07/06/24 Unknown History duloxetine 20 mg capsule,delayed 20 mg PO BID Fibromyalgia 09/09/24 11/08/24 History release (Cymbalta) vitamin E (dl, acetate) 450 mg 450 mg PO QDAY 09/09/24 Unknown History (1,000 unit) capsule cariprazine 1.5 mg capsule 1.5 mg PO DAILY 10/29/24 11/08/24 History (Vraylar) lorazepam 0.5 mg tablet (Ativan) 0.5 mg PO Q12H PRN sleep 10/29/24 Unknown History Allergy/AdvReac Type Severity Reaction Status Date / Time NSAIDS (Non-Steroidal Allergy unknown Verified 11/08/24 09:32 Anti-Inflamma Penicillins Allergy Rash Verified 11/08/24 09:32 sulfamethoxazole (From Allergy rash Verified 11/08/24 09:32 Bactrim) trimethoprim (From Bactrim) Allergy rash Verified 11/08/24 09:32 Family History Aunt Cancer uterine cancer Brother Asthma Sister Autoimmune disorder Other Breast cancer Diabetes Heart disease Hypertension Myocardial infarction Parkinson disease Surgical History (Updated 10/29/24 @ 13:19 by Gina Murry) Hx of surgical procedure Hx of colonoscopy History of esophagogastroduodenoscopy (EGD) History of surgical removal of ganglion cyst History of hysterectomy Gastric bypass status for obesity H/O section S/P thyroid surgery Hx of cholecystectomy Social History Smoking Status: Never smoker Review of Systems (Anesthesia) ROS Narrative System reviewed and no additional complaints, except as documented.
--- NOTE | 2024-11-08 10:06 | RAD_ITS ---
EXAM: XR Lumbosacral Spine, 2 or 3 Views CLINICAL INDICATION: RT TRANSFORAMINAL EPIDURAL L4 L5 S1 TECHNIQUE: Frontal and lateral views of the lumbar spine and sacrum. COMPARISON: No relevant prior studies available. FINDINGS: A total of 3 fluoroscopic images were obtained. Total fluoroscopy time was 9.1 seconds. Total radiation dose was 3.83 mGy. RAD/Lumbar Spine 2 or 3 Views IMPRESSION: Fluoroscopic guidance was used intraoperatively. Please refer to the operative note for further details. Reading Location: [id number]
[2024-11-08] MEDS: Lidocaine 1% (20 ml mdv) 20 ML Vial (10:09)
--- NOTE | 2024-11-08 10:17 | PCM.POST.ANE ---
Anesthesia: Postop Eval I Current Vital Signs Temperature: 36 F Pulse Rate: 67 Blood Pressure: 115/78 Respiratory Rate: 14 Pulse Ox: 97 Assessment Airway patent: Yes Spontaneous unlabored respirations: Yes nausea: No Vomiting: No Anesthesia Complication: No Fluid Hydration Crystalloid volume administer (ml): 300 Total IV fluid infused: 300 Progress Note Anesthesia document: Postop Eval 1 completed: Yes
--- NOTE | 2024-11-08 11:40 | PCM.OPRPT ---
Operative Report (Standard) Operative Information Date of Procedure: 11/08/24 Pre-Operative Diagnosis: Lumbosacral radiculopathy, lumbosacral degenerative disc disease, lumbosacral spinal stenosis Post-Operative Diagnosis: Lumbosacral radiculopathy, lumbosacral degenerative disc disease, lumbosacral spinal stenosis Surgery/Procedure Performed: Right sided lumbar transforaminal epidural steroid injection L4-5, L5-S1 under fluoroscopic guidance senior premium auditor: No Type of Anesthesia: Local MAC RN Documented Start/Stop Times: Operation Date: 11/08/24 10:50 Case Time Into Pre-Op 11/08/24 09:15 Anesthesia Start 11/08/24 10:00 Into Room 11/08/24 10:00 Procedure Start 11/08/24 10:08 Procedure End 11/08/24 10:11 Anesthesia End 11/08/24 10:13 Out of Room 11/08/24 10:13 Into Recovery 11/08/24 10:15 Into Phase II Recovery 11/08/24 10:33 Out of Recovery 11/08/24 10:33 Out of Phase II 11/08/24 10:51 Procedure Start Time: 11:40 Procedure Stop Time: 11:40 Select all DRAINS/GRAFTS/IMPLANTS that apply: None Estimated Blood Loss: 1 Specimen collected: No Description of surgery: PROCEDURE PERFORMED: Right-sided lumbar transforaminal epidural steroid injection, L4-5 and L5-S1. ANESTHESIA: MAC BLOOD LOSS: Minimal COMPLICATIONS: None DESCRIPTION OF PROCEDURE: History and physical of today was reviewed. Risks and benefits of the procedure were explained. The patient understood and agreed to proceed. Informed consent was obtained. IV inserted per routine protocol. The patient was taken to the operating room and placed in the prone position with a pillow positioned underneath the abdomen. The right side of the lower back was prepped and draped in a sterile fashion using iodine x3. Under fluoroscopy guidance on oblique view, the L4 through S1 vertebral bodies were visualized. The skin and subcutaneous tissue was anesthetized with approximately 5 mL of 1% lidocaine using a 25-gauge regular needle. Under direct visualization with fluoroscopy at approximately 35-degree angle, starting on the right L4, ending on the right L5, using a 22-gauge 5-inch spinal needle, the needle was advanced via the skin. The tip of the needle was maneuvered and directed towards the inferior and medial gutter of the transverse process at the superiormost aspect of the neural foramen. Once the tip of the needle was at the vicinity of the foramen, after negative aspiration for blood or CSF, a total of 1 mL of contrast was injected in divided doses between both levels to confirm correct placement of the needle as well as medial spread. The confirmation was obtained on AP as well as lateral view. After repeated negative aspiration and confirmation on AP as well as lateral view, a total of 6 mL of preservative-free 0.25% Marcaine with 80 mg of Depo-Medrol was injected in divided doses between both levels. The needles were then removed intact. The patient experienced no sign or symptoms of intrathecal or intravascular injection. The patient experienced no paresthesia. The procedure was completed without any apparent difficulty or any complications. The patient appeared to tolerate it well. Assessment and plan: This is a 48-year-old female with lumbosacral radiculopathy, lumbosacral Patito of this disease, lumbosacral spinal stenosis, status post right sided lumbar transforaminal epidural steroid injection L4-5, L5-S1, patient will continue her current medications, patient will follow-up in approximately 2 weeks for reevaluation. Surgical Findings: 1 Complications Complications: No Admit VTE Documentation VTE Present on Admission: No VTE Mechan Device Prophylaxis: None VTE Pharm Prophylaxis ordered?: No
--- NOTE | 2024-11-08 14:08 | POSTOPAN2_ITS ---
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 Spontaneous unlabored Yes 11/08/24 10:17 BALANCE WHEEL HAND [email or web address] respirations Mental status nausea No 11/08/24 10:17 BALANCE WHEEL HAND [email or web address] Vomiting No 11/08/24 10:17 BALANCE WHEEL HAND [email or web address] Anesthesia Postop Eval I: Fluid Summary Crystalloid volume administer 300 11/08/24 10:17 BALANCE WHEEL HAND [email or web address] (ml) Colloids volume administered ( ml) Blood Product volume administered (ml) Total IV fluid infused 300 11/08/24 10:17 BALANCE WHEEL HAND [email or web address] Anesthesia Postop Eval I: Summary Notes Anesthesia Complication No 11/08/24 10:17 BALANCE WHEEL [email or web address] Anesthesia Complication Comment: Post-operative progress note Anesthesia: Postop Eval II Evaluation Mental status: Awake and Calm Pain Level: 0 nausea: No Vomiting: No Complications Anesthesia Complication: No
--- NOTE | 2024-11-08 14:08 | PCM.POSTANE2 ---
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 [email or web address] Spontaneous unlabored Yes 11/08/24 10:17 TOURIST CABIN [email or web address] respirations Mental status nausea No 11/08/24 10:17 TOURIST CABIN [email or web address] Vomiting No 11/08/24 10:17 TOURIST CABIN [email or web address] Anesthesia Postop Eval I: Fluid Summary Crystalloid volume administer 300 11/08/24 10:17 TOURIST CABIN [email or web address] (ml) Colloids volume administered ( ml) Blood Product volume administered (ml) Total IV fluid infused 300 11/08/24 10:17 TOURIST CABIN [email or web address] Anesthesia Postop Eval I: Summary Notes Anesthesia Complication No 11/08/24 10:17 TOURIST CABIN [email or web address] Anesthesia Complication Comment: Post-operative progress note Anesthesia: Postop Eval II Evaluation Mental status: Awake and Calm Pain Level: 0 nausea: No Vomiting: No Complications Anesthesia Complication: No
== END 2024-11-08 10:51 | disposition home or self-care (01) ==
PROVIDERS: PCP Nurse Practitioner Family; Referring Provider Anesthesiology Pain Medicine; Visit Provider Anesthesiology Pain Medicine
PROC: 3E0S3BZ Introduction of Anesthetic Agent into Epidural Space, Percutaneous Approach (ICD-10-PCS; CPT 64484; principal; 2024-11-08 10:45)
DX: M51.17 Intervertebral disc disorders with radiculopathy, lumbosacral region (principal); E11.9 Type 2 diabetes mellitus without complications; M48.07 Spinal stenosis, lumbosacral region; I10 Essential (primary) hypertension; K21.9 Gastro-esophageal reflux disease without esophagitis; Z79.85 Long-term (current) use of injectable non-insulin antidiabetic drugs; Z79.899 Other long term (current) drug therapy
CPT/HCPCS: 64484; 64483; 72100

== ENCOUNTER → 2024-11-29 | Outpatient (CLI) | payer OTHER, SELFPAY ==
[2024-11-29 12:00] LABS: Color, Urine Yellow (Yellow); Glucose, Dipstick Normal (Normal); Ketone-Dipstick Negative (Negative); Leukocyte Esterase-Dipstick Negative /ul (Negative); Nitrite-Dipstick Negative (Negative); Occult Blood-Urine 10 /ul (Negative); Protein-Dipstick Negative (Negative); Specific Gravity, Urine 1.005 (1.002-1.030); Urine Bilirubin Dipstick Negative (Negative)
== END | disposition home or self-care (01) ==
PROVIDERS: PCP Nurse Practitioner Family
DX: R31.29 Other microscopic hematuria (principal)
CPT/HCPCS: 81002

== ENCOUNTER → 2024-12-07 | Outpatient (CLI) | payer OTHER, SELFPAY ==
--- NOTE | 2024-12-07 12:03 | US_ITS ---
PROCEDURE: KIDNEY AND BLADDER 12/07/2024 REASON FOR EXAM: HEMATURIA, UNSPECIFIED Two-week history of materia. TECHNIQUE: KIDNEY AND BLADDER FINDINGS: Kidneys: Normal renal sizes, parenchymal thicknesses, and echotextures. [place]: No evidence of hydronephrosis. Cysts or Masses: No cysts or large solid renal masses. Other: 6 mm x 8 mm x 5 mm nonobstructive calculus in the inferior pole of the right kidney. 5 mm x 8 mm x 6 mm non obstructive calculus in the inferior pole of the left kidney. RIGHT Kidney Size: 12.2 cm x 5.2 cm x 5.9 cm Volume: 194 mL Cortical Thickness (if discernible): 13 mm (>6mm is normal) LEFT Kidney Size: 13.5 cm x 5.6 cm x 6.8 cm Volume: 270 mL Cortical Thickness (if discernible): 17 mm (>6mm is normal) US/Kidney and Bladder IMPRESSION: Tiny nonobstructive bilateral intrarenal calculi. Reading Location: [id number]
== END | disposition home or self-care (01) ==
LOC: US 12:01
PROVIDERS: PCP Nurse Practitioner Family; Referring Provider Nurse Practitioner Family; Visit Provider Nurse Practitioner Family
DX: R31.9 Hematuria, unspecified (principal)
CPT/HCPCS: 76770

== ENCOUNTER → 2024-12-08 | Outpatient (CLI) | payer OTHER, SELFPAY | END | disposition home or self-care (01) | PROVIDERS: PCP Nurse Practitioner Family; Referring Provider Nurse Practitioner Family; Visit Provider Nurse Practitioner Family | DX: R31.9 Hematuria, unspecified (principal) | CPT/HCPCS: 87086; 87088 ==

== ENCOUNTER → 2024-12-10 | Outpatient (CLI) | payer OTHER, SELFPAY | END | disposition home or self-care (01) | LOC: LABSPEC 10:43 | PROVIDERS: PCP Nurse Practitioner Family; Visit Provider Registered Nurse | DX: N94.89 Other specified conditions associated with female genital organs and menstrual cycle (principal) | CPT/HCPCS: 87077; 87086; 87088; 87186 ==

== ENCOUNTER → 2025-01-06 | Outpatient (CLI) | payer SELFPAY ==
--- NOTE | 2025-01-06 13:50 | CT_ITS ---
PROCEDURE: LIMITED CHEST CT CARDIAC ONLY 01/06/2025 REASON FOR EXAM: FAM HX ISCHEMIC HEART DISEASE TECHNIQUE: Procedure Code: [id number] Modality: CT Procedure: LIMITED CHEST CT CARDIAC ONLY CONTRAST: None One or more dose reduction techniques were used (e.g., Automated exposure control, adjustment of the mA and/or kV according to patient size, use of iterative reconstruction technique). RADIATION DOSE SUMMARY: CTDlvol: 12.19 mGy DLP: 170.66 mGycm COMPARISON: None FINDINGS: No coronary artery calcification. The heart is nonenlarged. Pericardium is unremarkable. The lungs are clear. 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 CT/Limited Chest CT Cardiac Only IMPRESSION: No coronary artery calcification is seen. Reading Location: [place] [id number]
--- NOTE | 2025-01-06 15:34 | CA.SCORE ---
Calcium Scoring Date of Study:: 01/06/25 Indications Indications: Family history Coronary Calcium Scoring: High-resolution Computed Tomographic imaging of the chest was performed on [01/06/2025], with particular attention paid to the coronary arteries. Images from the examination were analyzed for the presence and extent of coronary artery calcification , using coronary calcium quantification software. The patient tolerated the procedure well and there were no complications. The results of the coronary calcification analysis are provided below. Findings Coronary Artery Left Main (LM): 0 Left Anterior Descending (LAD): 0 Left Circumflex (LCX): 0 Right Coronary Artery (RCA): 0 Total Agatston Score: 0 Percentile Rankin Calcium Scoring Interpretation: Different methods to categorize the overall amount of coronary plaque. Overall amount CAC SIS Visual of coronary plaque P1 Mild -100 <2 1-2 vessels with mild amount of plaque P2 Moderate 101-300 3-4 1-2 vessels with moderate amount, 3 vessels with mild amount of plaque P3 Severe 301-999 5-7 3 vessels with moderate amount, 1 vessel with severe amount of plaque P4 Extensive >1000 >8 2-3 vessels with severe amount of plaque Conclusion: No atherosclerotic plaque noted.
== END | disposition home or self-care (01) ==
LOC: CT 13:48
PROVIDERS: PCP Nurse Practitioner Family; Referring Provider Nurse Practitioner Family; Visit Provider Nurse Practitioner Family
DX: Z13.9 Encounter for screening, unspecified (principal); Z82.49 Family history of ischemic heart disease and other diseases of the circulatory system
CPT/HCPCS: 75571; 76380

== ENCOUNTER 2025-04-18 05:20 | Day surgery (SDC) | payer OTHER, SELFPAY ==
--- NOTE | 2025-04-12 10:52 | PAT.ANE_ITS ---
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 When Was Last Pacemaker Check QUESTION #4 FULL TEXT: You/Your Family Experience fever (hyperthermia) with Anesthesia Last Oral Intake Last Oral intake: Last Oral Intake NPO since Meds taken in AM with sips of water? Meds patient instructed to take am of surgery PONV PONV - sales office coordinator: PONV - sales office coordinator Female Yes 04/12/25 10:31 HX of Motion Sickness Yes 04/12/25 10:31 HX of N/V After Surgery No 04/12/25 10:31 Non-Smoker Yes 04/12/25 10:31 Duration of Surgery greater No 04/12/25 10:31 than 60 minutes Number of Risk Factors 3 04/12/25 10:31 PONV Score Moderate Risk 04/12/25 10:31 Height & Weight Height & Weight: Anesthesia: Height & Weight Height 5 ft 4 in 01/10/25 13:37 Respiratory Assessment Respiratory Assessment - sales office coordinator: Respiratory Tract Infection Hx - sales office coordinator Hx Respiratory Tract Infection No 04/12/25 10:31 STOP Sleep Apnea STOP Sleep Apnea - sales office coordinator: STOP Sleep Apnea - sales office coordinator Hx Hypertension Yes: CONTROLLED WITH MED 04/12/25 10:31 Hx Sleep Apnea Yes 04/12/25 10:31 CPAP Yes 04/12/25 10:31 BIPAP No 04/12/25 10:31 Do you snore loudly (louder than talking or can be heard Do you often feel tired/ fatigued/ sleepy during daytime? Has anyone observed you stop breathing during sleep? STOP Results Positive 04/12/25 10:31 QUESTION #5 FULL TEXT : Do you snore loudly (louder than talking or can be heard through closed doors)? 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 Specify any problems Hx of Preganancy in last 3 No 04/12/25 10:31 Months Nurse Filling Out Transfusion VCHRISTIN 04/12/25 10:31 & Questions: Date: 04/12/25 04/12/25 10:31 Time: 10:32 04/12/25 10:31 Patient unable to answer at this time (ie. confused, unrespo /Reproduction History /Reproductive History - sales office coordinator: /Reproductive Hx- sales office coordinator Hx Now No 04/12/25 10:31 Gestational Age (in weeks): EDC: Hx Hx Para Hx Section SAB No 04/12/25 10:31 Does the father of the baby or his family experience fever w Father of the baby Malignant Hypertension history comment PFSH Medical History Anxiety Back pain Blood disorder Syncope MGUS (monoclonal gammopathy of unknown significance) GI bleed Wears glasses Thyroid disease Low iron Migraine headache History of hiatal hernia History of IBS Non-smoker Vocal cord dysfunction Breast cancer screening Hemangioma Chronic left hip pain Right thyroid nodule GERD (gastroesophageal reflux disease) Essential hypertension DM 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 Home Medications ?Medication ?Instructions ?Recorded ?Last Taken ?Type calcium carbonate (Calcium 600) 600 mg PO DAILY 05/18/24 History cholecalciferol (vitamin D3) 10 10 mcg PO DAILY 05/18/24 History mcg (400 unit) capsule cyanocobalamin (vitamin B-12) 50 50 mcg PO DAILY 09/2505/18/24 History mcg tablet (Vitamin B-12) magnesium 200 mg tablet 200 mg PO DAILY 09/25/20 History potassium 99 mg PO DAILY 12/15/2004/22 History sumatriptan succinate 50 mg tablet See Rx Instructions PO .COMPLEX 07/24/21 05/18/24 Rx (Imitrex) #14 tabs linaclotide 290 mcg capsule 290 mcg PO DAILY PRN PRN D iarrhea 09/05/22 05/18/24 Rx (Linzess) #90 caps cyclobenzaprine 10 mg tablet See Rx Instructions .Rout e 01/29/23 Unknown Rx .COMPLEX #60 tabs ferrous sulfate 325 mg (65 mg 325 mg PO DAILY 04/01/23 05/15/24 History iron) tablet fexofenadine 180 mg tablet 180 mg PO DAILY 04/18/23 History (Aller-Fex) hydroxyzine HCl 25 mg tablet 25 mg PO PRN PRN itching 04/18/23 Unknown History buspirone 5 mg tablet 10 mg PO TID 09/12/23 History ursodiol 250 mg tablet 250 mg PO BID #60 tabs 09/1105/18/24 Rx semaglutide 1 mg/dose (4 mg/3 mL) 1 mg subcut MOFR 02/1104/10/25 History subcutaneous pen injector amlodipine 5 mg tablet 10 mg PO QHS 07/06/24 Unknow n History duloxetine 20 mg capsule,delayed 20 mg PO BID Fibromya lgia 09/09/24 11/08/24 History release (Cymbalta) vitamin E (dl, acetate) 450 mg 450 mg PO QDAY 09/09/24 Unknown History (1,000 unit) capsule cariprazine 1.5 mg capsule 1.5 mg PO DAILY 10/29/24 History (Vraylar) lorazepam 0.5 mg tablet (Ativan) 0.5 mg PO Q12H PRN sl eep 10/29/24 Unknown History trazodone 50 mg tablet 75 mg PO QHS 01/10/25 Unknow n History pantoprazole 40 mg tablet,delayed 40 mg PO BID #120 TA BLETS 01/24/25 Unknown Rx release sucralfate 1 gram tablet 1 g PO TIDAC 30 days #90 tab s 03/22/25 Unknown Rx tenapanor 50 mg tablet (Ibsrela) 50 mg PO BID #60 tabs 04/05/25 Unknown Rx Allergy/AdvReac Type Severity Reaction Status Date / Time NSAIDS (Non-Steroidal Allergy unknown Verified 04/12/25 10:35 Anti-Inflamma Penicillins Allergy Rash Verified 04/12/25 10:35 sulfamethoxazole (From Allergy rash Verified 04/12/25 10:35 Bactrim) trimethoprim (From Bactrim) Allergy rash Verified 04/12/25 10:35 Family History Aunt Cancer uterine cancer Brother Asthma Sister Autoimmune disorder Other Breast cancer Diabetes Heart disease Hypertension Myocardial infarction Parkinson disease Surgical History History of esophagogastroduodenoscopy (EGD) Hx of surgical procedure Hx of colonoscopy History of esophagogastroduodenoscopy (EGD) History of surgical removal of ganglion cyst History of hysterectomy Gastric bypass status for obesity H/O section S/P thyroid surgery Hx of cholecystectomy Social History adopted: No household members: spouse and children number of children: 2 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 Normal sinus rhythm. Stress test pertinent findings: 08/05/2023. Patient achieved 13.3 METS. No EKG criteria for ischemia at a high workload. Recommendation Anesthesia Recommendation Anesthesia recommendation: OPTIMIZED for anesthesia
[2025-04-18] VITALS (7 sets, daily range): BP systolic 102–108; BP diastolic 63–78; PULSE 64–68; RESP 16–18; TEMP 36.4–37.4; O2SAT 97–100; BMI 37.4
--- OUTSIDE RECORDS SUMMARY | 2025-04-18 05:24 | XMS RPT_ITS | CCD ---
Author Organization [facility] Care Team Providers [facility] Tutor Name Role Phone Jarret Reece MD Unavailable [...] Unavailable Nails, Luciano Ortiz Primary Care Unavailable Ildefonso, Yifan A Attending Unavailable Nails, Luciano Ortiz Primary Care Unavailable UlyssesYifan Admitting Unavailable Ulysses, Yifan Vigil Attending Unavailable Jesu, Luciano Ortiz Primary Care [...] Consulting Unavailable Luciano Nails Primary Care Provider [phone] Luciano Nails MD Primary Care Provider Dr. Hermelinda Castillo Primary Care Provider [phone] Dr. Hermelinda Castillo Referring Provider [phone] Katharina MENDIOLA, APRILC Giancarlo Attending Provider [phone] Dr. Stephane Saez Attending Provider CRISTY Torres Attending Provider Unavailab enrrique Nails MD, Luciano Brown Primary Care Provider Dr. Hermelinda Castillo Primary Care Provider [phone] Dr. Hermelinda Castillo Referring Provider [phone] Katharina ASSISTANT ASSOCIATE PROFESSOR, ASSISTANT ASSOCIATE PROFESSOR-C Giancarlo Attending Provider [phone] Dr. Jose Suresh Attending Provider Jesu ROSENBERG, Luciano Brown Primary Care Provider [phone] Dr. Maximiliano Murphy Attending Provider Dr. Krista Robledo Referring Provider Jesu ROSENBERG, Luciano Brown Primary Care Provider EVANGELINA SAEED Attending Unavailable JESU, LUCIANO BROWN Primary Care Unavailable COREY SPAIN Referring Unavailable COREY SPAIN Attending Unavailable JESU, LUCIANO BROWN Referring Unavailable JESU, LUCIANO BROWN Primary Care Unavailable Dr. Hermelinda Castillo Primary Care Provider [phone] Dr. Hermelinda Castillo Referring Provider [phone] Dr. Jose Suresh Attending Provider Dr. Maximiliano Murphy Attending Provider Dr. Krista Robledo Referring Provider Katharina ASSISTANT ASSOCIATE PROFESSOR, ASSISTANT ASSOCIATE PROFESSOR-C Giancarlo Attending Provider Dr. Jose Suresh Referring Provider Dr. Jose Suresh Other Provider Dr. Hermelinda Castillo Primary Care Provider [phone] Dr. Jose Suresh Attending Provider Dr. Hermelinda Castillo Referring Provider [phone] Posadas ASSISTANT ASSOCIATE PROFESSOR, ASSISTANT ASSOCIATE PROFESSOR-C Giancarlo Attending Provider [phone] Dr. Hermelinda Castillo Primary Care Provider [phone] Dr. Hermelinda Castillo Referring Provider [phone] Posadas ASSISTANT ASSOCIATE PROFESSOR, ASSISTANT ASSOCIATE PROFESSOR-C Giancarlo Attending Provider [phone] Dr. Alejandro Castilloewongbe Primary Care Provider [phone] Dr. Henok Bassett Emergency Provider Tamar, Dr. Mondragon Admit Provider [place], Dr. Mondragon Attending Provider Tamar, Dr. Mondragon Other Provider Dr. Ramez Villatoro Attending Provider [phone] Dr. Ganesh Bell Attending Provider Unavailable Arabella, [...] Jonathan, Dr. Shen Referring Provider [phone] Dr. Jose Suresh Attending Provider [facility] Primary Care Pro vider Dr. Hermelinda Castillo Referring Provider [phone] Dr. Stephane Melgar Attending Provider Posadas ASSISTANT ASSOCIATE PROFESSOR, ASSISTANT ASSOCIATE PROFESSOR-C Giancarlo Primary Care Provider Psoadas ASSISTANT ASSOCIATE PROFESSOR, ASSISTANT ASSOCIATE PROFESSOR-C Giancarlo Referring Provider [phone] [facility] Referring Provid er Dr. Ramez Villatoro Attending Provider [phone] Dr. Ramez Villatoro Other Provider [phone] Hermelinda Castillo Referring Provider [phone] Dr. Jose Suresh Attending Provider [facility] Primary Care Pro vider Dr. Stephane Melgar Attending Provider Posadas ASSISTANT ASSOCIATE PROFESSOR, ASSISTANT ASSOCIATE PROFESSOR-C Giancarlo Primary Care Provider Posadas ASSISTANT ASSOCIATE PROFESSOR, ASSISTANT ASSOCIATE PROFESSOR-C Giancarlo Referring Provider [facility] Referring Provid er Dr. Ramez Villatoro Attending Provider Dr. Ramez Villatoro Other Provider [facility] Primary Care Pro vider Posadas ASSISTANT ASSOCIATE PROFESSOR, ASSISTANT ASSOCIATE PROFESSOR-C Giancarlo Primary Care Provider Unavai lable Posadas ASSISTANT ASSOCIATE PROFESSOR, ASSISTANT ASSOCIATE PROFESSOR-C Giancarlo Referring Provider Unavail le Dr. Ramez Villatoro Attending Provider Dr. Stephane Melgar Attending Provider Posadas VSC, ASSISTANT ASSOCIATE PROFESSOR-C Giancarlo Primary Care Provider Posadas VSC, ASSISTANT ASSOCIATE PROFESSOR-C Giancarlo Referring Provider Posadas VSC, ASSISTANT ASSOCIATE PROFESSOR-C Giancarlo Other Provider Dr. Maximiliano Murphy Attending Provider Posadas ASSISTANT ASSOCIATE PROFESSOR-C, Giancarlo Primary Care Provider Posadas ASSISTANT ASSOCIATE PROFESSOR-C, Giancarlo Referring Provider Dr. Joaquin Boyce MD Attending Provider Dr. Ramez Villatoro DO Attending Provider Dr. Ramez Villatoro DO Other Provider Posadas ASSISTANT ASSOCIATE PROFESSOR-C, Giancarlo Attending Provider Dr. Stephane Melgar MD Attending Provider Richy ROSENBERG, Dr. Langford Attending Provider Dr. Primitivo Lockhart MD Referring Provider Posadas ASSISTANT ASSOCIATE PROFESSOR-C, Giancarlo Primary Care Provider Posadas ASSISTANT ASSOCIATE PROFESSOR-C, Giancarlo Referring Provider NP. Catherine Messer Attending Provider MARLENA Messer. Catherine Referring Provider Demetrice ROSENBERG, Dr. Garcia Attending Provider Demetrice ROSENBERG, Dr. Garcia Referring Provider Posadas ASSISTANT ASSOCIATE PROFESSOR-C, Giancarlo Primary Care Provider Posadas ASSISTANT ASSOCIATE PROFESSOR-C, Giancarlo Referring Provider Conchita Richardson Attending Provider T[place] ASSISTANT ASSOCIATE PROFESSOR-C, Adriana Attending Provider [place] ASSISTANT ASSOCIATE PROFESSOR-C, Adriana Referring Provider Conchita Richardson Referring Provider T[place]hof ASSISTANT ASSOCIATE PROFESSOR-C, Adriana Other Provider Posadas ASSISTANT ASSOCIATE PROFESSOR-C, Giancarlo Primary Care Provider Posadas ASSISTANT ASSOCIATE PROFESSOR-C, Giancarlo Primary Care Provider Posadas ASSISTANT ASSOCIATE PROFESSOR-C, Giancarlo Referring Provider Posadas ASSISTANT ASSOCIATE PROFESSOR-C, Giancarlo Primary Care Provider Dr. Primitivo Lockhart MD Attending Provider [phone] Dr. Primitivo Lockhart MD Referring Provider Assessment, Health Risk Attending Provider Unava ilable Assessment, Health Risk Referring Provider Unava ilable Beam ASSISTANT ASSOCIATE PROFESSOR-C, Zebulun Attending Provider Beam ASSISTANT ASSOCIATE PROFESSOR-C, Zebulun Referring Provider Chana Bansal CNM Attending Provider Posadas ASSISTANT ASSOCIATE PROFESSOR-C, Giancarlo Primary Care Provider Posadas ASSISTANT ASSOCIATE PROFESSOR-C, Giancarlo Primary Care Physician Conchita Richardson Attending Physician Tannhof ASSISTANT ASSOCIATE PROFESSOR-C, Adriana Nurse Practitioner Tannhof ASSISTANT ASSOCIATE PROFESSOR-C, Adriana Attending Physician Tannhof ASSISTANT ASSOCIATE PROFESSOR-C, Adriana Referring Provider Dr. Primitivo Lockhart MD Attending Physician Assessment, Health Risk Attending Physician Unav ailable Beam ASSISTANT ASSOCIATE PROFESSOR-C, Zebulun Attending Physician Posadas ASSISTANT ASSOCIATE PROFESSOR-C, Giancarlo Referring Provider Chana Bansal CNM Attending Physician Posadas ASSISTANT ASSOCIATE PROFESSOR-C, Giancarlo Primary Care Physician Unavaila tiffany Melgar MD, Dr. Calderón Attending Physician Dr. Stephane Melgar MD Referring Provider Katherine ROSENBERG, Dr. Viera Attending Physician Posadas VSC, Giancarlo Primary Care Unavailable Chana Bansal Attending Unavailable ValentinahofAdriana Referring Unavailable Posadas VSC, Giancarlo Primary Care Unavailable TannhofAdriana Attending Unavailable Tannhof, Adriana Referring Unavailable Posadas VSC, Giancarlo Primary Care Unavailable TannhofAdriana Attending Unavailable Posadas VSC, Giancarlo Referring Unavailable Posadas VSC, Giancarlo Primary Care Unavailable Ramez Villatoro Attending Unavailable Jose Suresh Attending Unavailable Jose Suresh Referring Unavailable Posadas VSC, Giancarlo Primary Care Unavailable Cross AnchorCatherine Attending Unavailable Catherine Messer Referring Unavailable Posadas VSC, Giancarlo Primary Care Unavailable ValentinahoAdriana cueva Referring Unavailable Posadas VSC, Giancarlo Primary Care Unavailable Adriana Irene Attending Unavailable Posadas VSC, Giancarlo Attending Unavailable Posadas VSC, Giancarlo Primary Care Unavailable Posadas VSC, Giancarlo Referring Unavailable Stephane Melgar Attending Unavailable Posadas VSC, Giancarlo Primary Care Unavailable Posadas VSC, Giancarlo Referring Unavailable Posadas VSC, Giancarlo Primary Care Unavailable Chana Bansal Attending Unavailable Posadas VSC, Giancarlo Referring Unavailable Posadas VSC, Giancarlo Primary Care Unavailable Karina Seymour Attending Unavailable Posadas VSC, Giancarlo Primary Care Unavailable Posadas VSC, Giancarlo Referring Unavailable Conchita Burleson Attending Unavailable Posadas VSC, Giancarlo Referring Unavailable Posadas VSC, Giancarlo Primary Care Unavailable Conchita Burleson Attending Unavailable Tannhof Adriana Referring Unavailable Tannhof Adriana Consulting Unavailable Maximiliano Murphy Attending Unavailable Posadas VSC, Giancarlo Primary Care Unavailable Posadas VSC, Giancarlo Referring Unavailable Posadas VSC, Giancarlo Primary Care Unavailable Ramez Villatoro Consulting Unavailable Friend, Ramez Attending Unavailable Posadas VSC, Giancarlo Primary Care Unavailable Beam VSC, Zebulun Attending Unavailable Beam VSC, Zebulun Referring Unavailable Posadas VSC, Giancarlo Primary Care Unavailable Primitivo Lockhart Attending Unavailable RichyPrimitivo Referring Unavailable Posadas VSC, Giancarlo Referring Unavailable Posadas VSC, Giancarlo Attending Unavailable Posadas VSC, Giancarlo Primary Care Unavailable Prah, Stephane Referring Unavailable Prah, Stephane Attending Unavailable Posadas ASSISTANT ASSOCIATE PROFESSOR, Giancarlo Primary Care Unavailable Posadas VSC, Giancarlo Primary Care Unavailable Assessment, Health Risk Attending Unavaila ble Assessment, Health Risk Referring Unavaila ble Posadas VSC, Giancarlo Primary Care Unavailable Primitivo Lockhart Attending Unavailable Richy, Primitivo Referring Unavailable Posadas VSC, Giancarlo Referring Unavailable Posadas VSC, Giancarlo Primary Care Unavailable Prah, Stephane Attending Unavailable Posadas VSC, Giancarlo Referring Unavailable Posadas VSC, Giancarlo Primary Care Unavailable Joaquin Boyce Attending Unavailable Posadas VSC, Giancarlo Primary Care Unavailable Lion, Karina Attending Unavailable Lion, Karina Referring Unavailable Posadas VSC, Giancarlo Primary Care Unavailable Lion, Karina Attending Unavailable Lion, Karina Referring Unavailable Posadas VSC, Giancarlo Primary Care Unavailable Lion, Karina Attending Unavailable Lion, Karina Referring Unavailable Adriana Irene Referring Unavailable Posadas VSC, Giancarlo Primary Care Unavailable Adriana Irene Attending Unavailable Posadas VSC, Giancarlo Primary Care Unavailable Adriana Irene Consulting Unavailable Conchita Burleson Attending Unavailable Conchita Burleson Referring Unavailable Adriana Irene Attending Unavailable Posadas VSC, Giancarlo Primary Care Unavailable Adriana Irene Referring Unavailable Allergies Allergy Classification Reported Allergen(s) Allergy Type Date of Onset Reaction(s) Facility (5 sources) penicillin drug allergy 08-30-19 15 [facility] Work Phone: (20 sources) Penicillins; Translations: [penicillins] Propensity to adverse reactions to drug (disorder) 02-19-20 18 Rash [facility] (10 sources) Sulfamethoxazole / Trimethoprim Drug Allergy 09-29-19 19 Itching, Rash [place], [place] (20 sources) Sulfamethoxazole; Translations: [SULFAMETHOXAZOLE] Drug Allergy 01-09-20 21 Rash, Unknown [facility] (20 sources) Trimethoprim Drug Allergy 08-11-19 [facility] (20 sources) NSAIDS (Non-Steroidal Anti-Inflamma; Translations: [NSAIDS (Non-Steroidal Anti-Inflamma] Allergy to substance 08-11-19 unknown [facility] (9 sources) Penicillin G; Translations: [PENICILLIN G] Drug Allergy 03-11-20 [facility] Work Phone: (3 sources) Non-steroidal anti-inflammatory agent; Translations: [NSAIDS (NON-STEROIDAL ANTI-INFLAMMATORY DRUG)] Drug Allergy 02-08-20 Unknown [facility] (1 source) Sulfamethoxazole Drug Allergy 01-11-20 [facility] Rep[facility] (1 source) Trimethoprim Drug Allergy 01-11-20 [facility] Rep[facility] Medications Current Medications Medication Drug Class(es) [...] times daily as needed for pain OXYCODONE-ACETAMINOPHEN [id number] Jarret Reece MD Start: 08-15-2016 End: 09-25-2020 [...] times daily as needed for pain OXYCODONE-ACETAMINOPHEN [id number] Helen Sales LPN Start: 11-15-2014 take 1-2 tablets by mouth four times daily as needed for pain PERCOCET 5-325 MG TABS one to two tablet s by mouth four times daily as needed for pain OXYCODONE-ACETAMINOPHEN [id number] Jarret Reece MD Start: 11-15-2014 End: 12-12-2014 take 1-2 tablets by mouth four times daily as needed for pain PERCOCET 5-325 MG TABS one to two tablet s by mouth four times daily as needed for pain OXYCODONE-ACETAMINOPHEN [id number] Helen Sales LPN albuterol 0.83 mg/ml inhalant solution (2 sources) [...] PO AT BEDTIME July 06, 2024 2:22pm Complies with drug therapy Start: 06-28-2021 End: 07-06-2024 take 1 tablet by mouth once daily Amlodipine 5 mg tablet Discontinued 0 .ROUTE .COMPLEX 90 0 April 07, 2023 3:29pm April 18, 2023 11:07am TAKE 1 TABLET BY MOUTH ONCE DAILY busPIRone hydrochloride 5 mg oral tablet (20 sources) Start: 09-12-2023 take 2 tablets by mouth three times daily Buspirone 5 mg tablet Active 10 mg PO THREE TIMES A DAY September 12, 2023 2:33pm Complies with drug therapy Start: 09-12-2023 take 7.5 mg by mouth [...] mg PO DAILY September 25, 2020 12:00am Complies with drug therapy Start: 01-06-2019 take 1 tablet by angel [...] mouth 3 times daily 0 03/07/2020 Active cariprazine 1.5 mg oral capsule (8 sources) Atypical Antipsychotic Start: 10-29-2024 take 1 capsule by mouth once daily Cariprazine (Vraylar) 1.5 mg capsule Active 1.5 mg PO DAILY October 29, 2024 12:00am Complies with drug therapy cholecalciferol 0.01 mg oral capsule (20 sources) Vitamin D Start: 09-25-2020 take 1 capsule by mouth once daily Cholecalciferol (Vitamin D3) 10 mcg (400 unit) capsule Active 10 ug PO DAILY September 25, 2020 12:00am Complies with drug therapy CPAP Machine MISC (10 sources) CPAP Machine MIS C Indications: Settings: 8-10cm H2O PETER by Does not apply route 0 Active DULoxetine 20 mg delayed release oral capsule (20 sources) Serotonin and Norepinephrine Reuptake Inhibitor Start: 09-09-2024 take 1 capsule by mouth twice daily Duloxetine (Cymbalta) 20 mg capsule,delayed release(DR/EC) Active 20 mg PO TWICE A DAY September 09, 2024 2:08pm Fibromyalgia Complies with drug therapy Start: 09-09-2024 Duloxetine (Cy mbalta) 20 mg capsule,delayed release(DR/EC) Active 30 mg PO TWICE A DAY September 09, 2024 2:08pm Fibromyalgia Start: 07-06-2024 End: 09-09-2024 take 2 capsules by mouth twice daily Duloxetine (Cymbalta) 20 mg capsule,delayed release(DR/EC) Discontinued 40 mg PO TWICE A DAY July 06, 2024 12:00am September 09, 2024 2:10pm Fibromyalgia 0.6 ml enoxaparin sodium 100 mg/ml prefilled [...] Intravenous, 2 TIMES DAILY, First dose on Fri12/28/18 at 1230 Dilute with 5-10 mL 0.9% sodium chloride. Administer over 2 minutes. Post-op Start: 12-28-2018 End: 12-28-2018 famotidine (PEPCID) tablet 2 0 mg ferrous sulfate 325 mg oral tablet (20 sources) Start: 04-01-2023 take 1 tablet by mouth once daily Ferrous Sulfate 325 mg (65 mg iron) tablet Active 325 mg PO DAILY April 01, 2023 4:46pm Complies with drug therapy Start: 12-15-2020 End: 04-01-2023 take 1 tablet [...] Active fexofenadine hydrochloride 180 mg oral tablet (20 sources) Histamine-1 Receptor Antagonist Start: 04-18-2023 take 1 tablet by mouth once daily Fexofenadine (Aller-Fex) 180 mg tablet Active 180 mg PO DAILY April 18, 2023 1:00am Complies with drug therapy fluconazole 150 mg oral tablet (11 sources) [...] One tablet by mouth twice daily FLUCONAZOLE [id number] Helen Sales LPN glucagon (rdna) 1 mg [...] <60 hydrOXYzine hydrochloride 25 mg oral tablet (20 sources) Antihistamine Start: 04-18-2023 Hydroxyzine Hc l 25 mg tablet Active 25 mg PO NEEDED as needed for itching April 18, 2023 1:00am Complies with drug therapy Start: 02-07-2022 take 25 mg by mouth [...] 10 mg by mouth daily 0 Active LORazepam 0.5 mg oral tablet (8 sources) Benzodiazepine Start: 10-29-2024 take 1 tablet by mouth every twelve hours as needed for sleep Lorazepam (Ativan) 0.5 mg tablet Active 0.5 mg PO Q12H as needed for sleep October 29, 2024 12:00am Complies with drug therapy Magnesium (20 sources) Start: 09-25-2020 take 1 tablet by mouth once daily Magnesium 200 mg tablet Active 200 mg PO DAILY September 25, 2020 12:00am Complies with drug therapy Start: 09-25-2020 take 1 tablet by angel once daily Magnesium 200 mg tablet Active 200 mg PO DAILY September 25, 2020 12:00am Start: 09-25-2020 take 200 mg by mouth once asia y Magnesium Active 200 MG PO DAILY September 24, 2020 11:00pm Start: 09-25-2020 take 200 mg by mouth once asia y Magnesium Active 200 MG PO DAILY September 25, 2020 12:00am take 2 tablets by mo [facility] once daily magnesium (MAGNESIUM-OXIDE) 250 MG TABS [...] mg PO DAILY December 15, 2020 12:00am Complies with drug therapy take 1 tablet by mouth once asia [...] mg tablet Discontinued 10 mg PO DAILY 30 0 August 27, 2021 12:00am November 20, 2021 9:15am Take 4 tablets for 3 days; Take 3 tablets for 3 days; Take 2 tablets for 3 days; Take 1 tablet for 3 days Take with food or milk Start: 09-25-2020 End: 10-07-2020 Prednisone 10 mg tablet Discontinued 10 mg PO daily 30 12 0 September 25, 2020 12:00am October 06, 2020 12:00am October 07, 2020 12:01am Unspecified contact dermatitis, unspecified cause Take 4 tabs once daily days 1-3 3 tabs once daily days 4-6 2 tabs once daily days 7-9 and 1 tab once daily days 10-12. 1 ml promethazine hydrochloride 25 mg/ml injection (1 source) Phenothiazine Start: 12-28-2018 promethazine ( PHENERGAN) injection 12.5 mg Semaglutide (15 sources) Start: 12-30-2023 Semaglutide 1 mg/dose (4 mg/3 mL) pen injector Active 1 mg SC [facility] December 30, 2023 12:00am Complies with drug therapy Start: 12-30-2023 Semaglutide 1 mg/dose (4 mg/3 mL) pen injector Active 1 mg SC [facility] December 30, 2023 12:00am 3 ml sodium chloride 9 mg/ml injection (2 sources) Start: 12-28-2018 10 mL, Intrave nous, EVERY 12 HOURS SCHEDULED (2 times per day), First dose on Fri12/28/18 at 2100, Post-op Start: 12-28-2018 take 10 mL intravenous route o nce 10 mL, Intravenous, PRN, Line Care, Starting Fri12/28/18 at 1211 After every IV line use Post-op traZODone hydrochloride 50 mg oral tablet (2 sources) Serotonin Reuptake Inhibitor Start: 01-10-2025 Trazodone 50 mg tablet Active 75 mg PO AT BEDTIME January 10, 2025 12:00am Complies with drug therapy triamcinolone acetonide 1 mg/ml topical cream (3 sources) Corticosteroid Start: 08-23-2021 Triamcinolone Acetonide Active 1 APPLIC TOPICAL TWICE A DAY August 23, 2021 12:00am ursodiol 250 mg oral tablet (15 sources) Bile Acid Start: 09-12-2023 take 1 tablet by mouth twice daily Ursodiol 250 mg tablet Active 250 mg PO TWICE A DAY 60 3 September 12, 2023 12:00am Complies with drug therapy vitamin b12 0.05 mg oral tablet (20 sources) Vitamin B12 Start: 09-25-2020 take 1 tablet by mouth once daily Cyanocobalamin (Vitamin B-12) (Vitamin B-12) 50 mcg tablet Active 50 ug PO DAILY September 25, 2020 12:00am Complies with drug therapy Start: 01-28-2019 Cyanocobalamin (VITAMIN B-12) 500 MCG [...] Active vitamin e 450 mg oral capsule (11 sources) Start: 09-09-2024 take 1 capsule by mouth once daily Vitamin E (Dl, Acetate) 450 mg (1,000 unit) capsule Active 450 mg PO daily September 09, 2024 12:00am Complies with drug therapy Zinc (3 sources) Start: 05-14-2021 take 50 [...] mg capsule Discontinued 200 mg PO DAILY 30 0 August 20, 2021 12:00am November 20, 2021 9:15am clindamycin 300 mg oral capsule (20 sources) Lincosamide Antibacterial Start: 08-16-19 17 End: 09-26-19 21 take 1 capsule by mouth three times daily Clindamycin Hcl (Cleocin) 300 MG capsule Discontinued 300 mg PO THREE TIMES A DAY 12 August 15, 2016 12:00am September 25, 2020 3:44pm Start: 11-15-2014 End: 12-12-2014 take 1 tablet by mouth three times daily CLEOCIN 300 MG CAPS One tablet by mouth three times daily CLINDAMYCIN HCL [id number] Helen Sales LPN cyclobenzaprine hydrochloride 10 mg oral tablet (20 sources) Muscle Relaxant Start: 12-15-2020 End: 01-29-2023 take 1 tablet by mouth three times daily as needed for muscle spasms Cyclobenzaprine 10 mg tablet Discontinued 0 .ROUTE .COMPLEX 60 2 August 26, 2022 12:57pm January 29, 2023 [...] Discontinued 100 mg PO TWICE A DAY 14 May 16, 2022 1:00am June 05, 2022 3:56pm Start: 06-28-2021 End: 08-10-2021 take 1 capsule by mouth twice daily Doxycycline Hyclate 100 mg capsule Discontinued 100 mg PO TWICE A DAY 14 June 28, 2021 1:00am August 10, 2021 9:01am Take 1 capsule twice a day for 1 week. Hold Iron, Calcium, Magnesium and zinc supplementation while taking medication. gabapentin 300 mg oral capsule (1 source) Anti-epileptic Agent Start: 12-28-2018 End: 12-28-2018 gabapentin (NEURONTIN) capsule 300 mg hydrocortisone 10 mg/ml / neomycin 3.5 mg/ml / polymyxin b [id number] unt/ml otic suspension (20 sources) Aminoglycoside Antibacterial, Polymyxin-class Antibacterial, Corticosteroid Start: 08-10-2021 End: 08-20-2021 [place]kew-M[place]-K c 3.5-10,000-1 mg/mL-unit/mL-% drops,suspension Discontinued 4 NMA OTIC Q8H 10 10 0 August 10, 2021 12:00am August 19, 2021 12:00am August 20, 2021 12:03am Start: 08-10-2021 End: 08-20-2021 Ectwowxh-Vyyflcjvp-Wu Discon tinued 4 DRP OTIC Q8H 10 [...] mcg capsule Discontinued 290 ug PO DAILY 90 2 June 04, 2021 2:09pm March 20, 2022 [...] Intravenous, EVERY 6 HOURS, First dose on 12/28/18 at 1230 hold if SBP < 90 [...] DAILY September 25, 2020 12:00am Multivitamin tablet (15 sources) Start: 09-25-2020 End: 04-01-2023 Multivitamin tablet [...] CPDR One tablet by mouth daily OMEPRAZOLE [id number] Aziza Simons Comment on above: Take 40 mg by mouth once daily. pantoprazole 40 mg delayed release oral tablet (20 sources) Proton Pump Inhibitor Start: 3 End: 4 take 1 tablet by mouth twice daily Pantoprazole 40 mg tablet,delayed release (DR/EC) Discontinued 40 mg PO TWICE A DAY 120 3 January 01, 2024 7:07am March 17, 2024 3:21pm polyethylene glycol [id number] mg powder for oral solution (20 sources) [...] th once daily INDERAL LA 60 MG [id number] One tablet by mouth daily PROPRANOLOL HCL [id number] Blair Rhodes Mono take 1 tablet by angel th once daily INDERAL LA 60 MG [id number] One tablet by mouth daily PROPRANOLOL HCL [id number] Aziza Simons Comment on above: Take one(1) tablet d aily. sucralfate 1000 mg oral tablet (20 sources) Aluminum Complex Start: 3 End: 4 take 1 tablet by mouth three times daily before mealtime Sucralfate 1 gram tablet Discontinued 1 g PO THREE TIMES DAILY BEFORE MEALS 90 30 11 May 01, 2023 2:42pm March 17, 2024 3:21pm Start: 11-01-2022 End: 04-02-2023 take 1 tablet by mouth three times daily before mealtime Sucralfate 1 gram tablet Discontinued 1 g PO THREE TIMES DAILY BEFORE MEALS 90 30 0 March 03, 2023 3:43pm April 01, 2023 1:00am April 02, 2023 1:04am Start: 03-22-2022 End: 11-01-2022 take 1 mL by mouth twice daily Sucralfate (Carafate) 1 00 mg/mL suspension Discontinued 10 mL PO TWICE A DAY 200 1 June 05, 2022 4:24pm November 01, 2022 [...] teeth and supporting structures] Episodic Esophageal disorders (20 sources) Gastroesophageal reflux disease; Translations: [Gastro-esophageal reflux [...] rectum] 10-29-2022 Episodic Comment on above: 10/2022 Genitourinary symptoms and ill-defined conditions (6 sources) Dysuria; Translations: [Painful micturition, unspecified] Onset: 5 12-23-2024 Episodic Immunizations and screening for infectious disease (20 [...] 04/03/2023.Comes for follow up.M-spike 0.3 on 06/22/2024. M-spike 0.4 IgG Miller da light chain on 12/23/2023.Skeletal survey is normal on 04/03/2023.Comes for follow up.M-spike 0.4 on 01/03/2025.Clinically stable. Nonmalignant breast conditions (5 sources) Fibrocystic disease of breast; Translations: [Diffuse cystic mastopathy of unspecified breast] Onset: 5 03-27-2015 Chronic Nonmalignant breast conditions (1 source) Unspecified lump in unspecified breast; Translations: [Unspecified lump in unspecified breast] Onset: 5 Episodic Nonspecific chest pain (20 sources) Non-cardiac chest pain; Translations: [Other chest [...] styloid tenosynovitis] Episodic Other connective tissue disease (19 sources) Ganglion, unspecified wrist; Translations: [Ganglion of joint] Episodic Other ear and sense organ disorders (1 source) Unspecified otitis externa, right ear; Translations: [Infective otitis externa, unspecified] Chronic Other female genital disorders (1 source) Other specified conditions associated with female genital organs and menstrual cycle; Translations: [Other specified conditions associated with female genital organs and menstrual cycle] Onset: 5 Episodic Other gastrointestinal disorders (2 sources) Intestinal malabsorption; [...] above for complete details Other gastrointestinal disorders (20 sources) Constipation; Translations: [Constipation, unspecified] 09-09-2024 Episodic Other inflammatory condition of skin (2 sources) Pruritus, unspecified; Translations: [Unspecified pruritic disorder] Episodic Other liver diseases (20 sources) Steatosis of liver; Translations: [Fatty (change of) liver, not elsewhere classified] Onset: 9 12-03-2018 Chronic Other liver diseases (1 source) Fatty (change of) liver, not elsewhere classified; Translations: [Fatty (change of) liver, not elsewhere classified] Onset: Chronic Other lower respiratory disease (10 sources) [...] 50.0-59.9, adult] Onset: 9 12-03-2018 Chronic Other screening for suspected conditions (not mental disorders or infectious disease) (20 sources) Patient encounter status; Translations: [Encounter for other screening for malignant neoplasm of breast] Onset: 5 01-26-2021 Episodic Other skin disorders (20 sources) Localized swelling [...] final pathology from this procedure searching both [facility] and [facility] records. She appears to have had [...] postprocedural states; Translations: [Other postprocedural status] Episodic Residual codes; unclassified (1 source) Family history of ischemic heart disease and other diseases of the circulatory system; Translations: [Family history of ischemic heart disease and other diseases of the circulatory system] Onset: 5 Episodic Skull and face fractures (20 sources) Fracture of tooth ; Translations: [Fracture of tooth (traumatic), initial encounter for closed fracture] 10-29-2022 Episodic Spondylosis; intervertebral disc disorders; other back problems (16 sources) Degeneration of lumbosacral intervertebral disc; Translations: [...] injection of a sclerosant. 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, but have offered to try [...] Translations: [Dysphagia, unspecified] Onset: 06-01-2024 Episodic Other hematologic conditions (1 source) Personal history of diseases of the blood and blood-forming organs and certain disorders involving the immune mechanism; Translations: [Personal history of diseases of the blood and blood-forming organs and certain disorders involving the immune mechanism] Onset: 10-01-2024 Episodic Other nervous system disorders (5 sources) Disturbance of skin sensation; Translations: [Disturbance of skin sensation] Onset: 08-29-2014 08-30-2014 Episodic Other non-traumatic joint disorders (5 sources) Pain in wrist; Translations: [Pain in unspecified wrist] Onset: 07-03-2016 07-03-2016 Episodic Other non-traumatic joint disorders (1 source) Pain in unspecified joint; Translations: [Pain in unspecified joint] Onset: 06-21-2024 Episodic Other skin disorders (9 sources) Localized swelling, mass and lump, unspecified; Translations: [Inflamed seborrheic keratosis] Onset: 08-29-2014 08-30-2014 Episodic Other skin disorders (1 source) Inflamed seborrheic keratosis; Translations: [Inflamed seborrheic keratosis] Onset: 11-15-2014 11-27-2014 Episodic Results Test Name Value Interpretation Reference Range Facility Oncology Visit Reporton 12-21 Oncology Visit Report [facility] [address] [place] [address] OFFICE VISIT Date of Service: 01/10/25 1335 MR#: [id number] Acct: [id number] Name: CATHERINE BUI Rep #: [id number] : 1975 From: Stephane Melgar MD Age/Sex: 49/F Location: [facility] Status: Signed HPI Subjective Date of Service 01/10/25 Chief Complaint F/u for MGUS. History of Present Illness 49y.o.woman was found to have abnormal serum protein and referred for further evaluation. Skeletal survey on 04/03/2023 was negative. Was found to have IgG Lambda M-protein 0.4g/dl. She is on observation. Had blood work and comes for follow up. She feels well. [facility] Medical History Anxiety Back pain Blood disorder Syncope MGUS (monoclonal gammopathy of unknown significance) GI bleed Wears glasses Thyroid disease Low iron Migraine headache History of hiatal hernia History of IBS Non-smoker Vocal cord dysfunction Breast cancer screening Hemangioma Chronic left hip pain Right thyroid nodule GERD (gastroesophageal reflux disease) Essential hypertension DM 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 Surgical History Hx of surgical procedure Hx of colonoscopy History of esophagogastroduodenosco py (EGD) History of surgical removal of ganglion cyst History of hysterectomy Gastric bypass status for obesity H/O section S/P thyroid surgery Hx of cholecystectomy Family History Aunt Cancer uterine cancer Brother Asthma Sister Autoimmune disorder Other Breast cancer Diabetes Heart disease Hypertension Myocardial infarction Parkinson disease Social History (Updated 12/10/24 @ 08:18 by Danielle Stone) adopted: No household members: spouse and children number of children: 2 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 current occupational exposures/hazards: No pets and animals: Yes history of recent travel: No sexually active: Yes Smoking Status: Never smoker second hand exposure: No alcohol intake: never well-balanced diet: about half the time caffeine: Yes eating out: 1-3 times/week during the past year weight has: decreased > 10 lbs seatbelt use: always do you feel safe at home: Yes ROS Constitutional Constitutional: Reports systems reviewed and no addt'l complaints, except as documented Eyes Eyes: Reports systems reviewed and no addt'l complaints, except as documented ENT HEENT: Reports systems reviewed and no addt'l complaints, except as documented Cardiovascular Cardiovascular: Reports systems reviewed and no addt'l complaints, except as documented Respiratory/Chest Respiratory/Chest: Reports systems reviewed and no addt'l complaints, except as documented Gastrointestinal Gastrointestinal: Reports systems reviewed and no addt'l complaints, except as documented Genitourinary Genitourinary: Reports systems reviewed and no addt'l complaints, except as documented Musculoskeletal Musculoskeletal: Reports systems reviewed and no addt'l complaints, except as documented and back pain Integumentary Integumentary: Reports systems reviewed and no addt'l complaints, except as documented Neurologic Neurologic: Reports systems reviewed and no addt'l complaints, except as documented Psychiatric Psychiatric: Reports systems reviewed and no addt'l complaints, except as documented Endocrine Endocrinology: Reports systems reviewed and no addt'l complaints, except as documented Hematologic/Lymphatic Hematologic/Lymphatic: Reports systems reviewed and no addt'l complaints, except as documented Allergic/Immunologic Allergic/Immunologic: Reports systems reviewed and no addt'l complaints, except as documented Intake Vital Signs 07/06/24 14:24 11/08/24 09:35 12/10/24 08:01 01/10/25 13:37 Height 5 ft 4 in 5 ft 4 in 5 ft 4 in 5 ft 4 in Weight: 92.675 kg BMI 35.0 BP 127/84 H Blood Pressure Location Lt brachial Position Sitting Respiration 16 Pulse 64 Pulse Source Monitor Temp 98.5 F Temperature Source Temporal Artery Pulse Oximetry (%) 98 Oxygen Delivery Method room air Intake Is patient in pain?: No Allergies NSAIDS (Non-Steroidal Anti-Inflamma Allergy (Verified 01/10/25 13:51) unknown Penicillins Allergy (Verified 01/10/25 13:51) Rash sulfamethoxazole (From Bactrim) Allergy (Verified 01/10/25 13:51) rash trimethoprim (From Bactrim) Allergy (Verified 01/10/25 13:51) rash Medications ???Medication ???Instructions ???Recorded ???Confirmed ???Type calcium carbonate (Calcium 600) 600 mg PO DAILY 09/25/20 01/10/25 History cholecalciferol (vitamin D3) 10 10 mcg PO DAILY 09/25/20 01/10/25 History mcg (400 unit) capsule cyanocobalamin (vitamin B (more content not included)... Normal [facility] Coronary Angiography CTon Coronary Angiography CT [facility] Imaging Services [address] [place] [address] 01/06/25 1534 MR#: [id number] Acct: [id number] Name: CATHERINE BUI Rep #: [id number] : 1975 49 From: Maximiliano Murphy MD PCP: ALEXANDREA Armando Status:REG CLI Y Location: CT Calcium Scoring Date of Study:: 01/06/25 Indications Indications: Family history Coronary Calcium Scoring: High-resolution Computed Tomographic imaging of the chest was performed on [01/06/2025], with particular attention paid to the coronary arteries. Images from the examination were analyzed for the presence and extent of coronary artery calcification , using coronary calcium quantification software. The patient tolerated the procedure well and there were no complications. The results of the coronary calcification analysis are provided below. Findings Coronary Artery Left Main (LM): 0 Left Anterior Descending (LAD): 0 Left Circumflex (LCX): 0 Right Coronary Artery (RCA): 0 Total Agatston Score: 0 Percentile Rankin Calcium Scoring Interpretation: Different methods to categorize the overall amount of coronary plaque. Overall amount CAC SIS Visual of coronary plaque P1 Mild -100 <2 1-2 vessels with mild amount of plaque P2 Moderate 101-300 3-4 1-2 vessels with moderate amount, 3 vessels with mild amount of plaque P3 Severe 301-999 5-7 3 vessels with moderate amount, 1 vessel with severe amount of plaque P4 Extensive >1000 >8 2-3 vessels with severe amount of plaque Conclusion: No atherosclerotic plaque noted. 01/06/25 1535 Date Maximiliano Jimenez Signature (if applicable): Date CC: ALEXANDREA Irene; ALEXANDREA Posadas; Dr. Maximiliano Murphy MD Signed Normal [facility] Limited Chest CT Cardiac Onl yon 01-06-[address] Cardiac Only [facility] Imaging Services [address] [place] [address] Cardiac Only MR#: [id number] Acct: [id number] Name: CATHERINE BUI Rep #: [id number] : 1975 F 49 From: Jerome martínez MD PCP: ALEXANDREA Armando Status: REG CLI Study: Limited Chest CT Cardiac Only Date of Exam: Exam# [id number] Ordering Dr: Adriana Irene PROCEDURE: LIMITED CHEST CT CARDIAC ONLY 01/06/2025 REASON FOR EXAM: FAM HX ISCHEMIC HEART DISEASE TECHNIQUE: Procedure Code: CTCCTACHLIM Modality: CT Procedure: LIMITED CHEST CT CARDIAC ONLY CONTRAST: None One or more dose reduction techniques were used (e.g., Automated exposure control, adjustment of the mA and/or kV according to patient size, use of iterative reconstruction technique). RADIATION DOSE SUMMARY: CTDlvol: 12.19 mGy DLP: 170.66 mGycm COMPARISON: None FINDINGS: No coronary artery calcification. The heart is nonenlarged. Pericardium is unremarkable. The lungs are clear. 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 CT/Limited Chest CT Cardiac Only IMPRESSION: No coronary artery calcification is seen. Reading Location: [facility] CC: ALEXANDREA Irene; ALEXANDREA Posadas [employer] Developer: Signed Normal [facility] SALLY + Protein Elect, Serumon 01-05-2025 Albumin [Mass/Vol] 3.5 g/dL Normal 2.9-4.4 [facility] Comment on above: Order Comment: N Performed By: #### L 100.0100, L500.4050, L3100.3425, L3130.0010, L504.2610 ####[facility] [address] [place], [address] Albumin/Globulin [Mass ratio] 1.1 {ratio} Normal 0.7-1.7 [facility] Comment on above: Order Comment: N Performed By: #### L 100.0100, L500.4050, L3100.3425, L3130.0010, L504.2610 ####[facility] [address] [place], [address] FVAWK-3-INGS 0.3 g/dL Normal 0.0-0.4 [facility] Comment on above: Order Comment: N Performed By: #### L 100.0100, L500.4050, L3100.3425, L3130.0010, L504.2610 ####[facility] [address] [place], [address] QHHGG-7-PUDB 0.9 g/dL Normal 0.4-1.0 [facility] Comment on above: Order Comment: N Performed By: #### L 100.0100, L500.4050, L3100.3425, L3130.0010, L504.2610 ####[facility] [address] [place], [address] BETA GLOBULIN 1.1 g/dL Normal 0.7-1.3 [facility] Comment on above: Order Comment: N Performed By: #### L 100.0100, L500.4050, L3100.3425, L3130.0010, L504.2610 ####[facility] [address] [place], [address] GAMMA GLOBULIN 1.1 g/dL Normal 0.4-1.8 [facility] Comment on above: Order Comment: N Performed By: #### L 100.0100, L500.4050, L3100.3425, L3130.0010, L504.2610 ####[facility] [address] [place], [address] Globulin (S) [Mass/Vol] 3.4 g/dL Normal 2.2-3.9 [facility] Comment on above: Order Comment: N Performed By: #### L 100.0100, L500.4050, L3100.3425, L3130.0010, L504.2610 ####[facility] [address] [place], [address] SALLY RESULT,S Comment Abnormal . [facility] Comment on above: Order Comment: N Result Comment: Immu nofixation shows IgG monoclonal protein with lambda light chain specificity. Performed By: #### L 100.0100, L500.4050, L3100.3425, L3130.0010, L504.2610 ####[facility] [address] [place], [address] IMMUNOGLOB A QN 194 mg/dL Normal 87-352 [facility] Comment on above: Order Comment: N Performed By: #### L 100.0100, L500.4050, L3100.3425, L3130.0010, L504.2610 ####[facility] [address] [place], [address] IMMUNOGLOB G QN 1033 mg/dL Normal 586-1602 [facility] Comment on above: Order Comment: N Performed By: #### L 100.0100, L500.4050, L3100.3425, L3130.0010, L504.2610 ####[facility] [address] [place], [address] IMMUNOGLOB M QN 108 mg/dL Normal 26-217 [facility] Comment on above: Order Comment: N Performed By: #### L 100.0100, L500.4050, L3100.3425, L3130.0010, L504.2610 ####[facility] [address] [place], [address] M-Gurwinder 0.4 g/dL Abnormal Not Observed [facility] Comment on above: Order Comment: N Performed By: #### L 100.0100, L500.4050, L3100.3425, L3130.0010, L504.2610 ####[facility] [address] [place], [address] NOTE: Comment Normal . [facility] Comment on above: Order Comment: N Result Comment: Prot ein electrophoresis scan will follow via computer, mail, or cement and concrete [employer] worker delivery. Performed By: #### L 100.0100, L500.4050, L3100.3425, L3130.0010, L504.2610 ####[facility] [address] [place], [address] Protein [Mass/Vol] 6.9 g/dL Normal 6.0-8.5 [facility] Comment on above: Order Comment: N Performed By: #### L 100.0100, L500.4050, L3100.3425, L3130.0010, L504.2610 ####[facility] [address] [place], [address] [place] Lambda Light Chainson 01-05-2025 FR KAPPA LT CHN 18.2 mg/L Normal 3.3-19.4 [facility] Comment on above: Performed By: #### L 100.0100, L500.4050, L3100.3425, L3130.0010, L504.2610 ####[facility] [address] [place], [address] FR LAMBDA LT CH 21.5 mg/L Normal 5.7-26.3 [facility] Comment on above: Performed By: #### L 100.0100, L500.4050, L3100.3425, L3130.0010, L504.2610 ####[facility] [address] [place], [address] KAPPA/LAMBDA % 0.85 Normal 0.26-1.65 [facility] Comment on above: Result Comment: Perf ormed at: [facility] [address], [place], [place] [id number] Lead Cargoman: Dipesh Nagy PhD, Phone: [phone] Performed By: #### L 100.0100, L500.4050, L3100.3425, L3130.0010, L504.2610 ####[facility] [address] [place], [place], [id number] Absolute lymphocyte countOrd ered By: Stephane Melgar on 01-03-2025 Lymphocytes Auto (Unsp spec) [#/Vol] 2.30 10*3/uL 0.83-4.51 [facility] Absolute neutrophil countOrd ered By: Stephane Melgar on 01-03-2025 Neutrophils (Bld) [#/Vol] 5.7 10*3/uL 2.0-7.7 [facility] Albumin Elph [Mass/Vol]Order ed By: Stephane Melgar on 01-03-2025 Albumin [Mass/Vol] 3.5 g/dL 2.9-4.4 [facility] Anion gap in Serum or Plasma Ordered By: Stephane Melgar on 01-03-2025 Anion gap [Moles/Vol] 12 mmol/L 09-02 [facility] Automated lymphocyte count a s percentage of total leukocytesOrdered By: Stephane Melgar on 01-03-2025 Lymphocytes/100 WBC Auto (Unsp spec) 25.6 % 19-41 [facility] BUN/creatinine ratioOrdered By: [facility] 01-[facility]-2025 Urea nitrogen/Creatinine [Mass ratio] 12.4 mg/mg 10-20 [facility] Basophil percentageOrdered B y: Stephane Melgar on 01-03-2025 Basophils/100 WBC (Bld) 1.6 % High 0-1 [facility] Bilirubin, totalOrdered By: Stephane Melgar on 01-03-2025 Bilirubin [Mass/Vol] 0.27 mg/dL 0.00-1.30 [place] CBC W/Diff, Automatedon 12-20 Absolute Lymph 2.30 X10 3/uL Normal 0.83-4.51 [facility] Comment on above: Performed By: #### L 100.0100, L500.4050, L3100.3425, L3130.0010, L504.2610 #### [facility] [address] [place], [address] Absolute Neut 5.7 X10 3/uL Normal 2.0-7.7 [facility] Comment on above: Performed By: #### L 100.0100, L500.4050, L3100.3425, L3130.0010, L504.2610 #### [facility] [address] [place], [address] Basophils/100 WBC (Bld) 1.6 % High 0-1 [facility] Comment on above: Performed By: #### L 100.0100, L500.4050, L3100.3425, L3130.0010, L504.2610 #### [facility] [address] [place], [address] Eosinophils/100 WBC (Bld) 2.6 % Normal 0-5 [facility] Comment on above: Performed By: #### L 100.0100, L500.4050, L3100.3425, L3130.0010, L504.2610 #### [facility] [address] [place], [address] Erythrocyte distribution width (RBC) [Ratio] 12.9 % Normal 11.6-14.6 [facility] Comment on above: Performed By: #### L 100.0100, L500.4050, L3100.3425, L3130.0010, L504.2610 #### [facility] [address] [place], [address] Hematocrit (Bld) [Volume fraction] 42.7 % Normal 37-47 [facility] Comment on above: Performed By: #### L 100.0100, L500.4050, L3100.3425, L3130.0010, L504.2610 #### [facility] [address] [place], [address] Hemoglobin (Bld) [Mass/Vol] 14.5 g/dL Normal 12.0-15.0 [facility] Comment on above: Performed By: #### L 100.0100, L500.4050, L3100.3425, L3130.0010, L504.2610 #### [facility] [address] [place], [address] IG% 0.400 Normal 0.0-0.9 [facility] Comment on above: Result Comment: IG% - Immature Granulocytes (promyelocytes, myelocytes and metamyelocytes) > 1% indicates that a LEFT SHIFT is Present. Performed By: #### L 100.0100, L500.4050, L3100.3425, L3130.0010, L504.2610 #### [facility] [address] [place], [address] Lymphocytes/100 WBC (Bld) 25.6 % Normal 19-41 [facility] Comment on above: Performed By: #### L 100.0100, L500.4050, L3100.3425, L3130.0010, L504.2610 #### [facility] [address] [place], [address] MCH (RBC) [Entitic mass] 30.8 pg Normal 27.0-32.0 [facility] Comment on above: Performed By: #### L 100.0100, L500.4050, L3100.3425, L3130.0010, L504.2610 #### [facility] [address] [place], [address] MCHC (RBC) [Mass/Vol] 34.0 g/dL Normal 32-36 [facility] Comment on above: Performed By: #### L 100.0100, L500.4050, L3100.3425, L3130.0010, L504.2610 #### [facility] [address] [place], [address] MCV (RBC) [Entitic vol] 90.7 fL Normal 81-99 [facility] Comment on above: Performed By: #### L 100.0100, L500.4050, L3100.3425, L3130.0010, L504.2610 #### [facility] [address] [place], [address] Monocytes/100 WBC (Bld) 6.0 % Normal 0-10 [facility] Comment on above: Performed By: #### L 100.0100, L500.4050, L3100.3425, L3130.0010, L504.2610 #### [facility] [address] [place], [address] Neutrophils/100 WBC (Bld) 63.8 % Normal 47-70 [facility] Comment on above: Performed By: #### L 100.0100, L500.4050, L3100.3425, L3130.0010, L504.2610 #### [facility] [address] [place], [address] Nucleated RBC (Bld) [#/Vol] 0 10*3/uL Normal 0-5 [facility] Comment on above: Performed By: #### L 100.0100, L500.4050, L3100.3425, L3130.0010, L504.2610 #### [facility] [address] [place], [address] Platelet mean volume (Bld) [Entitic vol] 9.9 fL Normal 6.2-12.0 [facility] Comment on above: Performed By: #### L 100.0100, L500.4050, L3100.3425, L3130.0010, L504.2610 #### [facility] [address] [place], [address] Platelets (Bld) [#/Vol] 338 10*3/uL Normal 150-450 [facility] Comment on above: Performed By: #### L 100.0100, L500.4050, L3100.3425, L3130.0010, L504.2610 #### [facility] [address] [place], [address] RBC (Bld) [#/Vol] 4.71 10*6/uL Normal 4.2-5.4 [facility] Comment on above: Performed By: #### L 100.0100, L500.4050, L3100.3425, L3130.0010, L504.2610 #### [facility] [address] [place], [address] RDW SD 42.6 fl Normal 35.1-43.9 [facility] Comment on above: Performed By: #### L 100.0100, L500.4050, L3100.3425, L3130.0010, L504.2610 #### [facility] [address] [place], [address] WBC (Bld) [#/Vol] 9.0 10*3/uL Normal 4.4-11.0 [facility] Comment on above: Performed By: #### L 100.0100, L500.4050, L3100.3425, L3130.0010, L504.2610 #### [facility] [address] [place], [address] Carbon dioxide, total [Moles /volume] in Central venous bloodOrdered By: Stephane Melgar on 01-03-2025 CO2 [Moles/Vol] 24.2 mmol/L 21.0-32.0 [facility] Chloride assayOrdered By: Salima Melgar on 01-03-2025 Chloride [Moles/Vol] 103 mmol/L 98-108 [place] [facility] Prof ilon 01-03-2025 Albumin [Mass/Vol] 4.2 g/dL Normal 3.5-5.0 [facility] Comment on above: Performed By: #### L 100.0100, L500.4050, L3100.3425, L3130.0010, L504.2610 ####[facility] [address] [place], [address] Albumin/Globulin [Mass ratio] 1.4 {ratio} Normal 0.9-2.4 [facility] Comment on above: Performed By: #### L 100.0100, L500.4050, L3100.3425, L3130.0010, L504.2610 ####[facility] [address] [place], [address] ALK PHOS 86 U/L Normal 35-104 [facility] Comment on above: Performed By: #### L 100.0100, L500.4050, L3100.3425, L3130.0010, L504.2610 ####[facility] [address] [place], [address] ALT [Catalytic activity/Vol] 14 U/L Normal <=34 [facility] Comment on above: Performed By: #### L 100.0100, L500.4050, L3100.3425, L3130.0010, L504.2610 ####[facility] [address] [place], [address] AST [Catalytic activity/Vol] 19 U/L Normal <=31 [facility] Comment on above: Performed By: #### L 100.0100, L500.4050, L3100.3425, L3130.0010, L504.2610 ####[facility] [address] [place], [address] Bilirubin [Mass/Vol] 0.27 mg/dL Normal 0.00-1.30 [place] Comment on above: Performed By: #### L 100.0100, L500.4050, L3100.3425, L3130.0010, L504.2610 ####[facility] [address] [place], [address] BUN/CRE 12.4 RATIO Normal 10-20 [facility] Comment on above: Performed By: #### L 100.0100, L500.4050, L3100.3425, L3130.0010, L504.2610 ####[facility] [address] [place], [address] Calcium [Mass/Vol] 9.1 mg/dL Normal 7.6-11.0 [facility] Comment on above: Performed By: #### L 100.0100, L500.4050, L3100.3425, L3130.0010, L504.2610 ####[facility] [address] [place], [address] Chloride [Moles/Vol] 103 mmol/L Normal 98-108 [place] Comment on above: Performed By: #### L 100.0100, L500.4050, L3100.3425, L3130.0010, L504.2610 ####[facility] [address] [place], [address] CO2 [Moles/Vol] 24.2 mmol/L Normal 21.0-32.0 [facility] Comment on above: Performed By: #### L 100.0100, L500.4050, L3100.3425, L3130.0010, L504.2610 ####[facility] [address] [place], [address] Creatinine [Mass/Vol] 0.64 mg/dL Low 0.70-1.20 [facility] Comment on above: Performed By: #### L 100.0100, L500.4050, L3100.3425, L3130.0010, L504.2610 ####[facility] [address] [place], [address] ECRCL 118.55 ml/min Normal 50-250 [facility] Comment on above: Performed By: #### L 100.0100, L500.4050, L3100.3425, L3130.0010, L504.2610 ####[facility] [address] [place], [address] GAP 12 Normal 5-15 [facility] Comment on above: Performed By: #### L 100.0100, L500.4050, L3100.3425, L3130.0010, L504.2610 ####[facility] [address] [place], [address] GFR/1.73 sq M.predicted among non-blacks MDRD (S/P/Bld) [Vol rate/Area] 110 mL/min/{1.73_m2} Normal >60 [facility] Comment on above: Result Comment: mL/m in/1.73m2 CKD-EPI Creatinine Equation (2020) Performed By: #### L 100.0100, L500.4050, L3100.3425, L3130.0010, L504.2610 ####[facility] [address] [place], [address] Globulin (S) [Mass/Vol] 3.1 g/dL Normal 2.2-4.2 [facility] Comment on above: Performed By: #### L 100.0100, L500.4050, L3100.3425, L3130.0010, L504.2610 ####[facility] [address] [place], [address] Glucose [Mass/Vol] 93 mg/dL Normal 70-99 [facility] Comment on above: Performed By: #### L 100.0100, L500.4050, L3100.3425, L3130.0010, L504.2610 ####[facility] [address] [place], [address] Potassium [Moles/Vol] 4.1 mmol/L Normal 3.3-5.1 [facility] Comment on above: Performed By: #### L 100.0100, L500.4050, L3100.3425, L3130.0010, L504.2610 ####[facility] [address] [place], [address] Sodium [Moles/Vol] 139 mmol/L Normal 133-145 [facility] Comment on above: Performed By: #### L 100.0100, L500.4050, L3100.3425, L3130.0010, L504.2610 ####[facility] [address] [place], [address] T PROT 7.3 g/dL Normal 5.9-8.4 [facility] Comment on above: Performed By: #### L 100.0100, L500.4050, L3100.3425, L3130.0010, L504.2610 ####[facility] [address] [place], [address] Urea nitrogen [Mass/Vol] 8 mg/dL Normal 4-19 [facility] Comment on above: Performed By: #### L 100.0100, L500.4050, L3100.3425, L3130.0010, L504.2610 ####[facility] [address] [place], [address] Eosinophil percentageOrdered By: Stephane Melgar on 01-03-2025 Eosinophils/100 WBC (Bld) 2.6 % 0-5 [facility] Erythrocyte distribution wid th ratioOrdered By: Stephane Melgar on 01-03-2025 Erythrocyte distribution width (RBC) [Ratio] 12.9 % 11.6-14.6 [facility] Erythrocyte distribution wid th standard deviationOrdered By: Stephane Melgar on 01-03-2025 Erythrocyte distribution width (RBC) [Ratio] 42.6 fl 35.1-43.9 [facility] Glomerular filtration rate ( GFR) estimation/1.73 sq m using serum, plasma, or whole bOrdered By: Stephane Melgar on 01-03-2025 GFR/1.73 sq M.predicted among non-blacks MDRD (S/P/Bld) [Vol rate/Area] 110 mL/min/{1.73_m2} >60 [facility] Comment on above: mL/min/1.73m2 CKD-EP I Creatinine Equation (2020) Hematocrit Auto (Bld) [Volum e fraction]Ordered By: Stephane Melgar on 01-03-2025 Hematocrit (Bld) [Volume fraction] 42.7 % 37-47 [facility] Hemoglobin measurementOrdere d By: Stephane Melgar on 01-03-2025 Hemoglobin (Bld) [Mass/Vol] 14.5 g/dL 12.0-15.0 [facility] Immature granulocytes/100 WB C Auto (Bld)Ordered By: Stephane Melgar on 01-03-2025 Immature granulocytes/100 WBC (Bld) 0.400 % 0.0-0.9 [facility] Comment on above: IG% - Immature Granu locytes (promyelocytes, myelocytes and metamyelocytes) > 1% indicates that a LEFT SHIFT is Present. Interpretation of serum or p lasma protein pattern by immunofixation (narrative resultOrdered By: Stephane Melgar on 01-03-2025 Protein Fractions Immunofixation Vinny [Interp] 0.4 g/dL High Not Observed [facility] LDHon 01-03-2025 LDH 165 U/L Normal 84-246 [facility] Comment on above: Order Comment: 1 Performed By: #### L 100.0100, L500.4050, L3100.3425, L3130.0010, L504.2610 ####[facility] [address] [place], [address] Laboratory - Chemistry and C hemistry - challengeOrdered By: Stephane Melgar on 01-03-2025 AST [Catalytic activity/Vol] 19 U/L <32 [facility] Lactate dehydrogenase (LDH) measurementOrdered By: Stephane Melgar on 01-03-2025 LDH [Catalytic activity/Vol] 165 U/L 84-246 [facility] MCV (mean corpuscular volume ) determinationOrdered By: Stephane Melgar on 01-03-2025 MCV (RBC) [Entitic vol] 90.7 fL 81-99 [facility] Mean corpuscular hemoglobin (MCH) determinationOrdered By: Stephane Melgar on 01-03-2025 MCH (RBC) [Entitic mass] 30.8 pg 27.0-32.0 [facility] Mean corpuscular hemoglobin concentration (MCHC) determinationOrdered By: Stephane Melgar on 01-03-2025 MCHC (RBC) [Mass/Vol] 34.0 g/dL 32-36 [facility] Mean platelet volume determi nationOrdered By: Stephane Melgar on 01-03-2025 Platelet mean volume (Bld) [Entitic vol] 9.9 fL 6.2-12.0 [facility] Monocyte percentageOrdered B y: Stephane Melgar on 01-03-2025 Monocytes/100 WBC (Bld) 6.0 % 0-10 [facility] Neutrophil percentageOrdered By: Stephane Melgar on 01-03-2025 Neutrophils/100 WBC (Bld) 63.8 % 47-70 [facility] No Panel InformationOrdered By: Stephane Melgar on 01-03-2025 Addendum Document Comment . 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 Nucleated red blood cell per centageOrdered By: Stephane Melgar on 01-03-2025 Nucleated RBC/100 WBC (Bld) [Ratio] 0 % 0-5 [facility] Platelet countOrdered By: Salima Melgar on 01-03-2025 Platelets (Bld) [#/Vol] 338 10*3/uL 150-450 [facility] Potassium measurement (mass/ volume)Ordered By: Stephane Melgar on 01-03-2025 Potassium (Unsp spec) [Mass/Vol] 4.1 mmol/L 3.3-5.1 [facility] RBC Auto (Bld) [#/Vol]Ordere d By: Stephane Melgar on 01-03-2025 RBC (Bld) [#/Vol] 4.71 10*6/uL 4.2-5.4 [facility] Serum creatinine measurement (mass/volume)Ordered By: Stephane Melgar on 01-03-2025 Creatinine [Mass/Vol] 0.64 mg/dL Low 0.70-1.20 [facility] Serum globulin measurement ( mass/volume)Ordered By: Stephane Melgar on 01-03-2025 Globulin (S) [Mass/Vol] 3.4 g/dL 2.2-3.9 [facility] Serum glucose measurement (m ass/volume)Ordered By: Stephane Melgar on 01-03-2025 Glucose [Mass/Vol] 93 mg/dL 70-99 [facility] Serum immunoglobulin kappa l ight chains/immunoglobulin lambda light chains mass ratioOrdered By: Stephane Melgar on 01-03-2025 Immunoglobulin light chains.kappa/Immunoglobu beka light chains.lambda (S) [Mass ratio] 0.85 0.26-1.65 [facility] Comment on above: Performed at: [address] [id number] Director: Dipesh Nagy PhD, Phone: [phone] Serum or plasma IgA measurem ent (mass/volume)Ordered By: Stephane Melgar on 01-03-2025 IgA [Mass/Vol] 194 mg/dL 87-352 [facility] Serum or plasma IgG measurem ent (mass/volume)Ordered By: Stephane Melgar on 01-03-2025 IgG [Mass/Vol] 1033 mg/dL 586-1602 [facility] Serum or plasma alanine grajeda otransferase (ALT) measurementOrdered By: Stephane Melgar on 01-03-2025 ALT [Catalytic activity/Vol] 14 U/L <35 [facility] Serum or plasma albumin erick urement (mass/volume)Ordered By: Stephane Melgar on 01-03-2025 Albumin [Mass/Vol] 4.2 g/dL 3.5-5.0 [facility] Serum or plasma albumin/glob ulin mass ratioOrdered By: Stephane Melgar on 01-03-2025 Albumin/Globulin [Mass ratio] 1.4 {ratio} 0.9-2.4 [facility] Serum or plasma alkaline lissette sphatase measurementOrdered By: Stephane Melgar on 01-03-2025 ALP [Catalytic activity/Vol] 86 U/L 35-104 [facility] Serum or plasma alpha 1 glob ulin measurement by electrophoresis (mass/volume)Ordered By: Stephane Melgar on 01-03-2025 Alpha 1 globulin Elph [Mass/Vol] 0.3 g/dL 0.0-0.4 [facility] Alpha 1 globulin Elph [Mass/Vol] 0.9 g/dL 0.4-1.0 [facility] Serum or plasma beta globuli n measurement by electrophoresis (mass/volume)Ordered By: Stephane Melgar on 01-03-2025 Beta globulin Elph [Mass/Vol] 1.1 g/dL 0.7-1.3 [facility] Serum or plasma calcium erick urement (mass/volume)Ordered By: Stephane Melgar on 01-03-2025 Calcium [Mass/Vol] 9.1 mg/dL 7.6-11.0 [facility] Serum or plasma gamma globul in measurement by electrophoresis (mass/volume)Ordered By: Stephane Melgar on 01-03-2025 Gamma globulin Elph [Mass/Vol] 1.1 g/dL 0.4-1.8 [facility] Serum or plasma immunoelectr ophoresis interpretation (nominal result)Ordered By: Stephane Melgar on 01-03-2025 Interpretation IEP [Interp] Comment High . [facility] Comment on above: Immunofixation shows IgG monoclonal protein with lambdalight chain specificity. Serum or plasma immunoglobul in kappa light chains measurement (mass/volume)Ordered By: Stephane Melgar on 01-03-2025 Immunoglobulin light chains.kappa [Mass/Vol] 18.2 mg/L 3.3-19.4 [facility] Serum or plasma protein erick urement (mass/volume)Ordered By: Stephane Melgar on 01-03-2025 Protein [Mass/Vol] 6.9 g/dL 6.0-8.5 [facility] Serum or plasma urea nitroge n measurement (mass/volume)Ordered By: Stephane Melgar on 01-03-2025 Urea nitrogen [Mass/Vol] 8 mg/dL 4-19 [facility] Sodium levelOrdered By: Shaheen Melgar on 01-03-2025 Sodium [Moles/Vol] 139 mmol/L 133-145 [facility] Total proteinOrdered By: Brenton Melgar on 01-03-2025 Protein [Mass/Vol] 7.3 g/dL 5.9-8.4 [facility] White blood cell (WBC) count Ordered By: Stephane Melgar on 01-03-2025 WBC (Bld) [#/Vol] 9.0 10*3/uL 4.4-11.0 [facility] Urine Cultureon 12-16-2024 URC #2 Below infection level. Urine Culture Strep anginosus [place] Count 25,000-50,000 Mixed Gram Pos Gram Neg Org Mixed Gram Pos Gram Neg Org MIXC Mixed contaminants. Submit a new specimen if indicated. Strep anginosus: REACTION Ampicillin Islt KAYLA <=0.25 Penicillin G Islt KAYLA <=0.06 S Cefotaxime Islt KAYLA <=0.12 cefTRIAXone Islt KAYLA <=0.12 S Clindamycin Islt KAYLA >=1 R Linezolid Islt KAYLA <=2 S Vancomycin Islt KAYLA 0.5 S Normal [facility] Comment on above: Performed By: #### L 100.0100, L504.2610, L101.9900, L3130.0010, L3100.3425, L500.4050 #### [facility] [address] [place], [address] Laboratory - Chemistry and C hemistry - challengeOrdered By: Chana Bansal on 12-10-2024 Bilirubin Ql (U) Negative [facility] Glucose Ql (U) Negative [facility] Ketones Ql (U) Negative [facility] pH (U) 7.5 [pH] [facility] Specific gravity (U) [Rel density] 1.020 [facility] Urobilinogen (U) [Mass/Vol] Negative [facility] Laboratory - Hematology and Cell countsOrdered By: Chana Bansal on 12-10-2024 Hemoglobin Ql (U) Trace [facility] Laboratory - Specimen inform ationOrdered By: Chana Bansal on 12-10-2024 Clarity (U) Clear [facility] Color (U) Yellow [facility] Laboratory - UrinalysisOrder ed By: Chana Bansal on 12-10-2024 Nitrite Ql (U) Negative [facility] Protein Ql (U) Negative [facility] No Panel InformationOrdered By: Chana Bansal on 12-10-2024 Urine Leukocytes Positive [facility] Urine Non-Hemolyzed Blood Negative [facility] Consumer Educator Office Visit Reporton 12-10-2024 Consumer Educator Office Visit Report [facility] [address], [address] [place] [address] OFFICE VISIT Date of Service: 12/10/24 MR#: [id number] Acct: [id number] Name: CATHERINE BUI Rep #: [id number] : 1975 Provider: DIMITRIOS henning Age/Sex: 49/F Location: [facility] Status: Signed with Addenda ADDENDUM by DIMITRIOS Bansal on 12/23/24 at 1747 Assessment and Plan Assessment and Plan (1) Painful urination: Status: Acute (2) Annual physical exam: Status: Acute Plan: Cervical cancer screening: utd Breast cancer screening: utd STD prevention and contraceptive options including their risks, benefits, and alternatives were reviewed with the patient and she chooses: partner with vasectomy Encouraged maintenance of a healthy weight and active lifestyle and handout given. Calcium/vitamin D recommendations provided. Annual exam handout including recommendations for good health guidelines and basic screening information given. Problem list up to date, see problem list details for any additional plan information. follow up in one year for annual health maintenance exam or sooner if needed. 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 Drug Abuse Worker Required: No Is patient in pain?: No Allergies NSAIDS (Non-Steroidal Anti-Inflamma Allergy (Verified 12/10/24 07:59) unknown Penicillins Allergy (Verified 12/10/24 07:59) Rash sulfamethoxazole (From Bactrim) Allergy (Verified 12/10/24 07:59) rash trimethoprim (From Bactrim) Allergy (Verified 12/10/24 07:59) rash Medications ???Medication ???Instructions ???Recorded ???Confirmed ???Type calcium carbonate (Calcium 600) 600 mg PO DAILY 09/25/20 12/10/24 History cholecalciferol (vitamin D3) 10 10 mcg PO DAILY 09/25/20 12/10/24 History mcg (400 unit) capsule cyanocobalamin (vitamin B-12) 50 50 mcg PO DAILY 09/25/20 12/10/24 History mcg tablet (Vitamin B-12) magnesium 200 mg tablet 200 mg PO DAILY 09/25/20 12/10/24 History potassium 99 mg PO DAILY 12/15/20 12/10/24 H istory sumatriptan succinate 50 mg tablet See Rx Instructions PO .COMPLEX 07/24/21 12/10/24 Rx (Imitrex) #14 tabs linaclotide 290 mcg capsule 290 mcg PO DAILY PRN PRN Diarrhea 09/05/22 12/10/24 Rx (Linzess) #90 caps cyclobenzaprine 10 mg tablet See Rx Instructions .Route 3 12/10/24 Rx .COMPLEX #60 tabs ferrous sulfate 325 mg (65 mg 325 mg PO DAILY 04/01/23 12/10/24 History iron) tablet fexofenadine 180 mg tablet 180 mg PO DAILY 04/18/23 12/10/24 History (Aller-Fex) hydroxyzine HCl 25 mg tablet 25 mg PO PRN PRN itching 04/18/23 12/10/24 History buspirone 5 mg tablet 10 mg PO TID 09/12/23 12/10/24 His tory ursodiol 250 mg tablet 250 mg PO BID #60 tabs 09/12/23 Rx semaglutide 1 mg/dose (4 mg/3 mL) 1 mg subcut MOFR 12/30/23 5 History subcutaneous pen injector pantoprazole 40 mg tablet,delayed 40 mg PO BID #120 TABLETS 4 12/10/24 Rx release sucralfate 1 gram tablet 1 g PO TIDAC 30 days #90 tabs 02/2012/10/24 Rx amlodipine 5 mg tablet 10 mg PO QHS 07/06/24 12/10/24 His tory duloxetine 20 mg capsule,delayed 20 mg PO BID Fibromyalgia 09/09/24 12/10/24 History release (Cymbalta) vitamin E (dl, acetate) 450 mg 450 mg PO QDAY 09/09/24 12/10/24 H istory (1,000 unit) capsule cariprazine 1.5 mg capsule 1.5 mg PO DAILY 10/29/24 12/10/24 History (Vraylar) lorazepam 0.5 mg tablet (Ativan) 0.5 mg PO Q12H PRN sleep 10/29/24 12/10/24 History Post menopausal: No Patient : No : No PFSH Medical History Anxiety Back pain Blood disorder Syncope MGUS (monoclonal gammopathy of unknown significance) GI bleed Wears glasses Thyroid disease Low iron Migraine headache History of hiatal hernia History of IBS Non-smoker Vocal cord dysfunction Breast cancer screening Hemangioma Chronic left hip pain Right thyroid nodule GERD (gastroesophageal reflux disease) Essential hypertension DM 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 Surgical History Hx of surgical procedure Hx of colonoscopy History of esophagogastroduodenosco py (EGD) History of surg (more content not included)... Normal [facility] Urine Cultureon 12-10-2024 URC Mixed Gram Positive Organisms [place] Count 50,000-80,000 MIXC Mixed contaminants. Submit a new specimen if indicated. Normal [facility] Comment on above: Performed By: #### L 100.0100, L504.2610, L101.9900, L3130.0010, L3100.3425, L500.4050 #### [facility] [address] [place], [address] Urine cultureOrdered By: Beka Bansal on 12-10-2024 Bacteria identified Cx Nom (U) Strep anginosus Abnormal [facility] Bacteria identified Cx Nom (U) Mixed Gram Pos & Gram Neg Org Abnormal [facility] Urine cultureOrdered By: Nahun Irene on 12-08-2024 Bacteria identified Cx Nom (U) Positive Abnormal [facility] Kidney and Bladderon 025 Kidney and Bladder [facility] Imaging Services [address] [place] [address] Kidney and Bladder MR#: [id number] Acct: [id number] Name: CATHERINE BUI ANN Rep #: [id number] : 1975 F 49 From: Jerome martínez MD PCP: ALEXANDREA Armando Status: REG CLI Study: Kidney and Bladder Date of Exam: 12/07/24 Exam# [id number] Ordering Dr: Adriana Irene PROCEDURE: KIDNEY AND BLADDER 12/07/2024 REASON FOR EXAM: HEMATURIA, UNSPECIFIED Two-week history of materia. TECHNIQUE: KIDNEY AND BLADDER FINDINGS: Kidneys: Normal renal sizes, parenchymal thicknesses, and echotextures. [place]: No evidence of hydronephrosis. Cysts or Masses: No cysts or large solid renal masses. Other: 6 mm x 8 mm x 5 mm nonobstructive calculus in the inferior pole of the right kidney. 5 mm x 8 mm x 6 mm non obstructive calculus in the inferior pole of the left kidney. RIGHT Kidney Size: 12.2 cm x 5.2 cm x 5.9 cm Volume: 194 mL Cortical Thickness (if discernible): 13 mm (>6mm is normal) LEFT Kidney Size: 13.5 cm x 5.6 cm x 6.8 cm Volume: 270 mL Cortical Thickness (if discernible): 17 mm (>6mm is normal) US/Kidney and Bladder IMPRESSION: Tiny nonobstructive bilateral intrarenal calculi. Reading Location: [id number] CC: ALEXANDREA Irene; ALEXANDREA [employer] Developer: Signed Normal [facility] Bilirubin Test strip Ql (U)O rdered By: Marcelo Taylor on 11-29-2024 Bilirubin Ql (U) Negative Negative [facility] Ketones Test strip Ql (U)Ord ered By: Zebulun Beam on 11-29-2024 Ketones Ql (U) Negative Negative [facility] Protein Test strip Ql (U)Ord ered By: Zebulun Beam on 11-29-2024 Protein Ql (U) Negative Negative [facility] Urinalysis, Routine (Dipstic k)on 11-29-2024 BILIRUBIN URINE Negative Normal Negative [facility] Comment on above: Order Comment: CLEAN CATCH Performed By: #### L 100.0100, L504.2610, L101.9900, L3130.0010, L3100.3425, L500.4050 #### [facility] [address] [place], [address] GLUCOSE, UR Normal Normal Normal [facility] [facility] Comment on above: Order Comment: CLEAN CATCH Performed By: #### L 100.0100, L504.2610, L101.9900, L3130.0010, L3100.3425, L500.4050 #### [facility] [address] [place], [address] KETONE UR Negative Normal Negative [facility] Comment on above: Order Comment: CLEAN CATCH Performed By: #### L 100.0100, L504.2610, L101.9900, L3130.0010, L3100.3425, L500.4050 #### [facility] [address] [place], [address] LEUK ESTERASE Negative Normal Negative [facility] Comment on above: Order Comment: CLEAN CATCH Performed By: #### L 100.0100, L504.2610, L101.9900, L3130.0010, L3100.3425, L500.4050 #### [facility] [address] [place], [address] OCCULT BLOOD-UR 10 /ul Abnormal Negative [facility] Comment on above: Order Comment: CLEAN CATCH Performed By: #### L 100.0100, L504.2610, L101.9900, L3130.0010, L3100.3425, L500.4050 #### [facility] [address] [place], [address] pH UR 7.0 Normal 5.0 - 8.0 [facility] Comment on above: Order Comment: CLEAN CATCH Performed By: #### L 100.0100, L504.2610, L101.9900, L3130.0010, L3100.3425, L500.4050 #### [facility] [address] [place], [address] PROT DIPSTX Negative Normal Negative [facility] Comment on above: Order Comment: CLEAN CATCH Performed By: #### L 100.0100, L504.2610, L101.9900, L3130.0010, L3100.3425, L500.4050 #### [facility] [address] [place], [address] SP.GR. DIPSTX 1.005 Normal 1.002-1.030 [facility] Comment on above: Order Comment: CLEAN CATCH Performed By: #### L 100.0100, L504.2610, L101.9900, L3130.0010, L3100.3425, L500.4050 #### [facility] [address] [place], [address] UROBILI Normal Normal Normal [facility] Comment on above: Order Comment: CLEAN CATCH Performed By: #### L 100.0100, L504.2610, L101.9900, L3130.0010, L3100.3425, L500.4050 #### [facility] [address] [place], [address] Urine clarityOrdered By: Chon Taylor on 11-29-2024 Clarity (U) Clear Normal Clear [facility] Comment on above: Order Comment: CLEAN CATCH Performed By: #### L 100.0100, L504.2610, L101.9900, L3130.0010, L3100.3425, L500.4050 #### [facility] [address] [place], [address] Urine color determinationOrd ered By: Marcelo Taylor on 11-29-2024 Color (U) Yellow Normal Yellow [facility] Comment on above: Order Comment: CLEAN CATCH Performed By: #### L 100.0100, L504.2610, L101.9900, L3130.0010, L3100.3425, L500.4050 #### [facility] [address] [place], [address] Urine glucose detectionOrder ed By: Marcelo Taylor on 11-29-2024 Glucose Ql (U) Normal mg/dl Normal [facility] Urine leukocyte esterase det ection by dipstickOrdered By: Marcelo Taylor on 11-29-2024 Leukocyte esterase Test strip Ql (U) Negative Negative [facility] Urine nitrite test by dipsti ckOrdered By: Marcelo Taylor on 11-29-2024 Nitrite Ql (U) Negative Normal Negative [facility] Comment on above: Order Comment: CLEAN CATCH Performed By: #### L 100.0100, L504.2610, L101.9900, L3130.0010, L3100.3425, L500.4050 #### [facility] [address] [place], [address] Urine pHOrdered By: Marcelo Taylor on 11-29-2024 pH (U) 7.0 [pH] 5.0 - 8.0 [facility] Urine specific gravity measu rementOrdered By: Marcelo Taylor on 11-29-2024 Specific gravity (U) [Rel density] 1.005 1.002-1.030 [facility] Urine urobilinogen measureme ntOrdered By: Marcelo Taylor on 11-29-2024 Urobilinogen Ql (U) Normal mg/dl Normal [facility] Absolute lymphocyte countOrd ered By: HEALTH ASSESSMENT on 11-22-2024 Lymphocytes Auto (Unsp spec) [#/Vol] 2.85 10*3/uL 0.83-4.51 [facility] Absolute neutrophil countOrd ered By: HEALTH ASSESSMENT on 11-22-2024 Neutrophils (Bld) [#/Vol] 7.4 10*3/uL 2.0-7.7 [facility] Absolute nucleated red blood cell countOrdered By: HEALTH ASSESSMENT on 11-22-2024 Nucleated RBC (Bld) [#/Vol] 0.00 10*3/uL 0-5 [facility] Anion gap in Serum or Plasma Ordered By: HEALTH ASSESSMENT on 11-22-2024 Anion gap [Moles/Vol] 13 mmol/L 5-15 [facility] BUN/creatinine ratioOrdered By: HEALTH ASSESSMENT on 11-22-2024 Urea nitrogen/Creatinine [Mass ratio] 9.3 mg/mg Low 10-20 [facility] Bilirubin Test strip Ql (U)O rdered By: HEALTH ASSESSMENT on 11-22-2024 Bilirubin Ql (U) Negative Negative [facility] Bilirubin directOrdered By: HEALTH ASSESSMENT on 11-22-2024 Bilirubin.direct [Mass/Vol] 0.12 mg/dL 0.00-0.30 [facility] Bilirubin, totalOrdered By: HEALTH ASSESSMENT on 11-22-2024 Bilirubin [Mass/Vol] 0.26 mg/dL 0.00-1.30 [place] Blood band neutrophil count as percentage of total leukocytesOrdered By: HEALTH ASSESSMENT on 11-22-2024 Band form neutrophils/100 WBC (Bld) 64.8 % 47-70 [facility] CBC, Employeeon 11-22-2024 Absolute Lymph 2.85 X10 3/uL Normal 0.83-4.51 [facility] Comment on above: Performed By: #### L 100.0100, L504.2610, L101.9900, L3130.0010, L3100.3425, L500.4050 #### [facility] [address] [place], [address] Absolute Neut 7.4 X10 3/uL Normal 2.0-7.7 [facility] Comment on above: Performed By: #### L 100.0100, L504.2610, L101.9900, L3130.0010, L3100.3425, L500.4050 #### [facility] [address] [place], [address] Basophils/100 WBC (Bld) 1.6 % High 0-1 [facility] Comment on above: Performed By: #### L 100.0100, L504.2610, L101.9900, L3130.0010, L3100.3425, L500.4050 #### [facility] [address] [place], [address] Eosinophils/100 WBC (Bld) 1.1 % Normal 0-5 [facility] Comment on above: Performed By: #### L 100.0100, L504.2610, L101.9900, L3130.0010, L3100.3425, L500.4050 #### [facility] [address] [place], [address] Erythrocyte distribution width (RBC) [Ratio] 13.2 % Normal 11.6-14.6 [facility] Comment on above: Performed By: #### L 100.0100, L504.2610, L101.9900, L3130.0010, L3100.3425, L500.4050 #### [facility] [address] [place], [address] Hematocrit (Bld) [Volume fraction] 41.7 % Normal 37-47 [facility] Comment on above: Performed By: #### L 100.0100, L504.2610, L101.9900, L3130.0010, L3100.3425, L500.4050 #### [facility] [address] [place], [address] Hemoglobin (Bld) [Mass/Vol] 14.3 g/dL Normal 12.0-15.0 [facility] Comment on above: Performed By: #### L 100.0100, L504.2610, L101.9900, L3130.0010, L3100.3425, L500.4050 #### [facility] [address] [place], [address] Lymphocytes/100 WBC (Bld) 25.1 % Normal 19-41 [facility] Comment on above: Performed By: #### L 100.0100, L504.2610, L101.9900, L3130.0010, L3100.3425, L500.4050 #### [facility] [address] [place], [address] MCH (RBC) [Entitic mass] 30.8 pg Normal 27.0-32.0 [facility] Comment on above: Performed By: #### L 100.0100, L504.2610, L101.9900, L3130.0010, L3100.3425, L500.4050 #### [facility] [address] [place], [address] MCHC (RBC) [Mass/Vol] 34.3 g/dL Normal 32-36 [facility] Comment on above: Performed By: #### L 100.0100, L504.2610, L101.9900, L3130.0010, L3100.3425, L500.4050 #### [facility] [address] [place], [address] MCV (RBC) [Entitic vol] 89.7 fL Normal 81-99 [facility] Comment on above: Performed By: #### L 100.0100, L504.2610, L101.9900, L3130.0010, L3100.3425, L500.4050 #### [facility] [address] [place], [address] Monocytes/100 WBC (Bld) 7.0 % Normal 0-10 [facility] Comment on above: Performed By: #### L 100.0100, L504.2610, L101.9900, L3130.0010, L3100.3425, L500.4050 #### [facility] [address] [place], [address] Neutrophils/100 WBC (Bld) 64.8 % Normal 47-70 [facility] Comment on above: Performed By: #### L 100.0100, L504.2610, L101.9900, L3130.0010, L3100.3425, L500.4050 #### [facility] [address] [place], [address] NRBC # 0.00 10 3/uL Normal 0-5 [facility] Comment on above: Performed By: #### L 100.0100, L504.2610, L101.9900, L3130.0010, L3100.3425, L500.4050 #### [facility] [address] [place], [address] Nucleated RBC (Bld) [#/Vol] 0 10*3/uL Normal 0-5 [facility] Comment on above: Performed By: #### L 100.0100, L504.2610, L101.9900, L3130.0010, L3100.3425, L500.4050 #### [facility] [address] [place], [address] Platelet mean volume (Bld) [Entitic vol] 9.5 fL Normal 6.2-12.0 [facility] Comment on above: Performed By: #### L 100.0100, L504.2610, L101.9900, L3130.0010, L3100.3425, L500.4050 #### [facility] [address] [place], [address] Platelets (Bld) [#/Vol] 342 10*3/uL Normal 150-450 [facility] Comment on above: Performed By: #### L 100.0100, L504.2610, L101.9900, L3130.0010, L3100.3425, L500.4050 #### [facility] [address] [place], [address] RBC (Bld) [#/Vol] 4.65 10*6/uL Normal 4.2-5.4 [facility] Comment on above: Performed By: #### L 100.0100, L504.2610, L101.9900, L3130.0010, L3100.3425, L500.4050 #### [facility] [address] [place], [address] RDW SD 42.5 fl Normal 35.1-43.9 [facility] Comment on above: Performed By: #### L 100.0100, L504.2610, L101.9900, L3130.0010, L3100.3425, L500.4050 #### [facility] [address] [place], [address] WBC (Bld) [#/Vol] 11.4 10*3/uL High 4.4-11.0 [facility] Comment on above: Performed By: #### L 100.0100, L504.2610, L101.9900, L3130.0010, L3100.3425, L500.4050 #### [facility] [address] [place], [address] Calculated very low density lipoprotein (VLDL) cholesterol measurementOrdered By: HEALTH ASSESSMENT on 11-22-2024 Calculated very low density lipoprotein (VLDL) cholesterol measurement 21 mg/dL 5-40 [facility] Carbon dioxide, total [Moles /volume] in Central venous bloodOrdered By: HEALTH ASSESSMENT on 11-22-2024 CO2 [Moles/Vol] 19.3 mmol/L Low 21.0-32.0 [facility] Chloride assayOrdered By: HE ALTH ASSESSMENT on 11-22-2024 Chloride [Moles/Vol] 108 mmol/L 98-108 [place] [employer] Albumin [Mass/Vol] 3.9 g/dL Normal 3.5-5.0 [facility] Comment on above: Performed By: #### L 100.0100, L504.2610, L101.9900, L3130.0010, L3100.3425, L500.4050 #### [facility] [address] [place], [address] Albumin/Globulin [Mass ratio] 1.3 {ratio} Normal 0.9-2.4 [facility] Comment on above: Performed By: #### L 100.0100, L504.2610, L101.9900, L3130.0010, L3100.3425, L500.4050 #### [facility] [address] [place], [address] ALK PHOS 79 U/L Normal 35-104 [facility] Comment on above: Performed By: #### L 100.0100, L504.2610, L101.9900, L3130.0010, L3100.3425, L500.4050 #### [facility] [address] [place], [address] ALT [Catalytic activity/Vol] 17 U/L Normal <=34 [facility] Comment on above: Performed By: #### L 100.0100, L504.2610, L101.9900, L3130.0010, L3100.3425, L500.4050 #### [facility] [address] [place], [address] AST [Catalytic activity/Vol] 20 U/L Normal <=31 [facility] Comment on above: Performed By: #### L 100.0100, L504.2610, L101.9900, L3130.0010, L3100.3425, L500.4050 #### [facility] [address] [place], [address] Bilirubin [Mass/Vol] 0.26 mg/dL Normal 0.00-1.30 [place] Comment on above: Performed By: #### L 100.0100, L504.2610, L101.9900, L3130.0010, L3100.3425, L500.4050 #### [facility] [address] [place], [address] Bilirubin.direct [Mass/Vol] 0.12 mg/dL Normal 0.00-0.30 [facility] Comment on above: Performed By: #### L 100.0100, L504.2610, L101.9900, L3130.0010, L3100.3425, L500.4050 #### [facility] [address] [place], [address] BUN/CRE 9.3 RATIO Low 10-20 [facility] Comment on above: Performed By: #### L 100.0100, L504.2610, L101.9900, L3130.0010, L3100.3425, L500.4050 #### [facility] [address] [place], [address] Calcium [Mass/Vol] 8.8 mg/dL Normal 7.6-11.0 [facility] Comment on above: Performed By: #### L 100.0100, L504.2610, L101.9900, L3130.0010, L3100.3425, L500.4050 #### [facility] [address] [place], [address] Chloride [Moles/Vol] 108 mmol/L Normal 98-108 [place] Comment on above: Performed By: #### L 100.0100, L504.2610, L101.9900, L3130.0010, L3100.3425, L500.4050 #### [facility] [address] [place], [address] CO2 [Moles/Vol] 19.3 mmol/L Low 21.0-32.0 [facility] Comment on above: Performed By: #### L 100.0100, L504.2610, L101.9900, L3130.0010, L3100.3425, L500.4050 #### [facility] [address] [place], [address] Creatinine [Mass/Vol] 0.54 mg/dL Low 0.70-1.20 [facility] Comment on above: Performed By: #### L 100.0100, L504.2610, L101.9900, L3130.0010, L3100.3425, L500.4050 #### [facility] [address] [place], [address] GAP 13 Normal 5-15 [facility] Comment on above: Performed By: #### L 100.0100, L504.2610, L101.9900, L3130.0010, L3100.3425, L500.4050 #### [facility] [address], [address] GFR/1.73 sq M.predicted among non-blacks MDRD (S/P/Bld) [Vol rate/Area] 115 mL/min/{1.73_m2} Normal >60 [facility] Comment on above: Result Comment: mL/m in/1.73m2 CKD-EPI Creatinine Equation (2020) Performed By: #### L 100.0100, L504.2610, L101.9900, L3130.0010, L3100.3425, L500.4050 #### [facility] [address], [address] Globulin (S) [Mass/Vol] 2.9 g/dL Normal 2.2-4.2 [facility] Comment on above: Performed By: #### L 100.0100, L504.2610, L101.9900, L3130.0010, L3100.3425, L500.4050 #### [facility] [address] [place], [address] Glucose [Mass/Vol] 94 mg/dL Normal 70-99 [facility] Comment on above: Performed By: #### L 100.0100, L504.2610, L101.9900, L3130.0010, L3100.3425, L500.4050 #### [facility] [address] [place], [address] LDH 197 U/L Normal 84-246 [facility] Comment on above: Result Comment: Hemo lysis present, Results??could be affected. ?? Performed By: #### L 100.0100, L504.2610, L101.9900, L3130.0010, L3100.3425, L500.4050 #### [facility] [address] [place], [address] Phosphate [Mass/Vol] 2.5 mg/dL Low 2.7-4.5 [place] Comment on above: Performed By: #### L 100.0100, L504.2610, L101.9900, L3130.0010, L3100.3425, L500.4050 #### [facility] [address] [place], [address] Potassium [Moles/Vol] 4.0 mmol/L Normal 3.3-5.1 [facility] Comment on above: Result Comment: Hemo lysis present, Results??could be affected. ?? Performed By: #### L 100.0100, L504.2610, L101.9900, L3130.0010, L3100.3425, L500.4050 #### [facility] [address] [place], [address] Sodium [Moles/Vol] 140 mmol/L Normal 133-145 [facility] Comment on above: Performed By: #### L 100.0100, L504.2610, L101.9900, L3130.0010, L3100.3425, L500.4050 #### [facility] [address] [place], [address] T PROT 6.8 g/dL Normal 5.9-8.4 [facility] Comment on above: Performed By: #### L 100.0100, L504.2610, L101.9900, L3130.0010, L3100.3425, L500.4050 #### [facility] [address] [place], [address] Urea nitrogen [Mass/Vol] 5 mg/dL Normal 4-19 [facility] Comment on above: Performed By: #### L 100.0100, L504.2610, L101.9900, L3130.0010, L3100.3425, L500.4050 #### [facility] [address] [place], [address] URIC 3.7 mg/dL Normal 2.6-6.0 [facility] Comment on above: Result Comment: The drugs N-Acetylcysteine and Metamizole may falsely depress this assay. Performed By: #### L 100.0100, L504.2610, L101.9900, L3130.0010, L3100.3425, L500.4050 #### [facility] [address] [place], [address] Erythrocyte distribution wid th ratioOrdered By: HEALTH ASSESSMENT on 11-22-2024 Erythrocyte distribution width (RBC) [Ratio] 13.2 % 11.6-14.6 [facility] Erythrocyte distribution wid th standard deviationOrdered By: HEALTH ASSESSMENT on 11-22-2024 Erythrocyte distribution width (RBC) [Ratio] 42.5 fl 35.1-43.9 [facility] Glomerular filtration rate ( GFR) estimation/1.73 sq m using serum, plasma, or whole bOrdered By: HEALTH ASSESSMENT on 11-22-2024 GFR/1.73 sq M.predicted among non-blacks MDRD (S/P/Bld) [Vol rate/Area] 115 mL/min/{1.73_m2} >60 [facility] Comment on above: mL/min/1.73m2 CKD-EP I Creatinine Equation (2020) Hematocrit Auto (Bld) [Volum e fraction]Ordered By: HEALTH ASSESSMENT on 11-22-2024 Hematocrit (Bld) [Volume fraction] 41.7 % 37-47 [facility] Hemoglobin measurementOrdere d By: HEALTH ASSESSMENT on 11-22-2024 Hemoglobin (Bld) [Mass/Vol] 14.3 g/dL 12.0-15.0 [facility] Ketones Test strip Ql (U)Ord ered By: HEALTH ASSESSMENT on 11-22-2024 Ketones Ql (U) Negative Negative [facility] LDL calc ser/plasOrdered By: HEALTH ASSESSMENT on 11-22-2024 Cholesterol in LDL [Mass/Vol] 58 mg/dL [facility] Comment on above: Wcenosdmne=[id number] m g/dL & Higher Pyum=002 mg/dL or greaterFriedwald Equation for LDL-C Laboratory - Chemistry and C hemistry - challengeOrdered By: HEALTH ASSESSMENT on 11-22-2024 AST [Catalytic activity/Vol] 20 U/L <32 [facility] Lactate dehydrogenase (LDH) measurementOrdered By: HEALTH ASSESSMENT on 11-22-2024 LDH [Catalytic activity/Vol] 197 U/L 84-246 [facility] Comment on above: Hemolysis present, R esults could be affected. MCV (mean corpuscular volume ) determinationOrdered By: HEALTH ASSESSMENT on 11-22-2024 MCV (RBC) [Entitic vol] 89.7 fL 81-99 [facility] Mean corpuscular hemoglobin (MCH) determinationOrdered By: HEALTH ASSESSMENT on 11-22-2024 MCH (RBC) [Entitic mass] 30.8 pg 27.0-32.0 [facility] Mean corpuscular hemoglobin concentration (MCHC) determinationOrdered By: HEALTH ASSESSMENT on 11-22-2024 MCHC (RBC) [Mass/Vol] 34.3 g/dL 32-36 [facility] Mean platelet volume determi nationOrdered By: HEALTH ASSESSMENT on 11-22-2024 Platelet mean volume (Bld) [Entitic vol] 9.5 fL 6.2-12.0 [facility] Nitrite Test strip Ql (U)Ord ered By: HEALTH ASSESSMENT on 11-22-2024 Nitrite Ql (U) Negative Negative [facility] Nucleated red blood cell per centageOrdered By: HEALTH ASSESSMENT on 11-22-2024 Nucleated RBC/100 WBC (Bld) [Ratio] 0 % 0-5 [facility] Platelet countOrdered By: HE ALTH ASSESSMENT on 11-22-2024 Platelets (Bld) [#/Vol] 342 10*3/uL 150-450 [facility] Potassium measurement (mass/ volume)Ordered By: HEALTH ASSESSMENT on 11-22-2024 Potassium (Unsp spec) [Mass/Vol] 4.0 mmol/L 3.3-5.1 [facility] Comment on above: Hemolysis present, R esults could be affected. Protein Test strip Ql (U)Ord ered By: HEALTH ASSESSMENT on 11-22-2024 Protein Ql (U) Negative Negative [facility] RBC Auto (Bld) [#/Vol]Ordere d By: HEALTH ASSESSMENT on 11-22-2024 RBC (Bld) [#/Vol] 4.65 10*6/uL 4.2-5.4 [facility] Screening total cholesterol/ high density lipoprotein (HDL) cholesterol ratioOrdered By: HEALTH ASSESSMENT on 11-22-2024 Cholesterol.total/Choles terol in HDL [Mass ratio] 2.28 {ratio} [facility] Serum creatinine measurement (mass/volume)Ordered By: HEALTH ASSESSMENT on 11-22-2024 Creatinine [Mass/Vol] 0.54 mg/dL Low 0.70-1.20 [facility] Serum globulin measurementOr dered By: HEALTH ASSESSMENT on 11-22-2024 Globulin (S) [Mass/Vol] 2.9 g/dL 2.2-4.2 [facility] Serum glucose measurement (m ass/volume)Ordered By: HEALTH ASSESSMENT on 11-22-2024 Glucose [Mass/Vol] 94 mg/dL 70-99 [facility] Serum or plasma alanine grajeda otransferase (ALT) measurementOrdered By: HEALTH ASSESSMENT on 11-22-2024 ALT [Catalytic activity/Vol] 17 U/L <35 [facility] Serum or plasma albumin erick urement (mass/volume)Ordered By: HEALTH ASSESSMENT on 11-22-2024 Albumin [Mass/Vol] 3.9 g/dL 3.5-5.0 [facility] Serum or plasma albumin/glob ulin mass ratioOrdered By: HEALTH ASSESSMENT on 11-22-2024 Albumin/Globulin [Mass ratio] 1.3 {ratio} 0.9-2.4 [facility] Serum or plasma alkaline lissette sphatase measurementOrdered By: HEALTH ASSESSMENT on 11-22-2024 ALP [Catalytic activity/Vol] 79 U/L 35-104 [facility] Serum or plasma calcium erick urement (mass/volume)Ordered By: HEALTH ASSESSMENT on 11-22-2024 Calcium [Mass/Vol] 8.8 mg/dL 7.6-11.0 [facility] Serum or plasma cholesterol in HDL measurement (mass/volume)Ordered By: HEALTH ASSESSMENT on 11-22-2024 Cholesterol in HDL [Mass/Vol] 62 mg/dL >40 [facility] Comment on above: National Cholesterol Education Program (NCEP) guidelines:<40 mg/dL: Low HDL-cholesterol (major risk factor for CHD)>= 60 mg/dL: High HDL-cholesterol (negative risk factor for CHD)HDL-cholesterol is affected by a number of factors, e.g. smoking, exercise, hormones, sex and age. Serum or plasma cholesterol measurement (mass/volume)Ordered By: HEALTH ASSESSMENT on 11-22-2024 Cholesterol [Mass/Vol] 140 mg/dL <201 [facility] Comment on above: Cholesterol level, D esirable <200 mg/dLBorderline high cholesterol 200-239 mg/dLHigh cholesterol >=240 mg/dLRecommendations of the NCEP Adult Treatment Panel for the following risk-cutoff thresholds for the [place] population. Serum or plasma urea nitroge n measurement (mass/volume)Ordered By: HEALTH ASSESSMENT on 11-22-2024 Urea nitrogen [Mass/Vol] 5 mg/dL 4-19 [facility] Serum or plasma uric acid me asurement (mass/volume)Ordered By: HEALTH ASSESSMENT on 11-22-2024 Urate [Mass/Vol] 3.7 mg/dL 2.6-6.0 [facility] Comment on above: The drugs N-Acetylcy steine and Metamizole may falsely depress this assay. Sodium levelOrdered By: HEAL TH ASSESSMENT on 11-22-2024 Sodium [Moles/Vol] 140 mmol/L 133-145 [facility] Total proteinOrdered By: HEA [facility] ASSESSMENT on 11-22-2024 Protein [Mass/Vol] 6.8 g/dL 5.9-8.4 [facility] Triglycerides measurementOrd ered By: HEALTH ASSESSMENT on 11-22-2024 Triglyceride [Mass/Vol] 105 mg/dL <199 [facility] Comment on above: The drugs N-Acetylcy steine and Metamizole may falsely depress this assay. Normal range: <150 mg/dLBorderline High: 150-199 mg/dLHigh: 200-499 mg/dLVery High: >500 mg/dL Urinalysis, Employeeon 11-22 BILIRUBIN URINE Negative Normal Negative [facility] Comment on above: Order Comment: CLEAN CATCH Performed By: #### L 100.0100, L504.2610, L101.9900, L3130.0010, L3100.3425, L500.4050 #### [facility] Laboratory [address] [place], [address] Clarity (U) Clear Normal Clear [facility] Comment on above: Order Comment: CLEAN CATCH Performed By: #### L 100.0100, L504.2610, L101.9900, L3130.0010, L3100.3425, L500.4050 #### [facility] [address] [place], [address] Color (U) Yellow Normal Yellow [facility] Comment on above: Order Comment: CLEAN CATCH Performed By: #### L 100.0100, L504.2610, L101.9900, L3130.0010, L3100.3425, L500.4050 #### [facility] [address] [place], [address] GLUCOSE, UR Normal Normal Normal [facility] Comment on above: Order Comment: CLEAN CATCH Performed By: #### L 100.0100, L504.2610, L101.9900, L3130.0010, L3100.3425, L500.4050 #### [facility] [address] [place], [address] KETONE UR Negative Normal Negative [facility] Comment on above: Order Comment: CLEAN CATCH Performed By: #### L 100.0100, L504.2610, L101.9900, L3130.0010, L3100.3425, L500.4050 #### [facility] [address] [place], [address] LEUK ESTERASE Negative Normal Negative [facility] Comment on above: Order Comment: CLEAN CATCH Performed By: #### L 100.0100, L504.2610, L101.9900, L3130.0010, L3100.3425, L500.4050 #### [facility] [address] [place], [address] Nitrite Ql (U) Negative Normal Negative [facility] Comment on above: Order Comment: CLEAN CATCH Performed By: #### L 100.0100, L504.2610, L101.9900, L3130.0010, L3100.3425, L500.4050 #### [facility] [address] [place], [address] OCCULT BLOOD-UR 10 /ul Abnormal Negative [facility] Comment on above: Order Comment: CLEAN CATCH Performed By: #### L 100.0100, L504.2610, L101.9900, L3130.0010, L3100.3425, L500.4050 #### [facility] [address] [place], [address] pH UR 7.0 Normal 5.0 - 8.0 [facility] Comment on above: Order Comment: CLEAN CATCH Performed By: #### L 100.0100, L504.2610, L101.9900, L3130.0010, L3100.3425, L500.4050 #### [facility] [address] [place], [address] PROT DIPSTX Negative Normal Negative [facility] Comment on above: Order Comment: CLEAN CATCH Performed By: #### L 100.0100, L504.2610, L101.9900, L3130.0010, L3100.3425, L500.4050 #### [facility] [address] [place], [address] SP.GR. DIPSTX 1.005 Normal 1.002-1.030 [facility] Comment on above: Order Comment: CLEAN CATCH Performed By: #### L 100.0100, L504.2610, L101.9900, L3130.0010, L3100.3425, L500.4050 #### [facility] [address] [place], [address] UROBILI Normal Normal Normal [facility] Comment on above: Order Comment: CLEAN CATCH Performed By: #### L 100.0100, L504.2610, L101.9900, L3130.0010, L3100.3425, L500.4050 #### [facility] [address] [place], [address] Urine clarityOrdered By: OMA [facility] ASSESSMENT on 11-22-2024 Clarity (U) Clear Clear [facility] Urine color determinationOrd ered By: HEALTH ASSESSMENT on 11-22-2024 Color (U) Yellow Yellow [facility] Urine glucose detectionOrder ed By: HEALTH ASSESSMENT on 11-22-2024 Glucose Ql (U) Normal mg/dl Normal [facility] Urine leukocyte esterase det ection by dipstickOrdered By: HEALTH ASSESSMENT on 11-22-2024 Leukocyte esterase Test strip Ql (U) Negative Negative [facility] Urine pHOrdered By: HEALTH A SSESSMENT on 11-22-2024 pH (U) 7.0 [pH] 5.0 - 8.0 [facility] Urine specific gravity measu rementOrdered By: HEALTH ASSESSMENT on 11-22-2024 Specific gravity (U) [Rel density] 1.005 1.002-1.030 [facility] Urine urobilinogen measureme ntOrdered By: HEALTH ASSESSMENT on 11-22-2024 Urobilinogen Ql (U) Normal mg/dl Normal [facility] White blood cell (WBC) count Ordered By: HEALTH ASSESSMENT on 11-22-2024 WBC (Bld) [#/Vol] 11.4 10*3/uL High 4.4-11.0 [facility] Lumbar Spine 2 or 3 Viewson 11-08-2024 Lumbar Spine 2 or 3 Views [facility] Imaging Services [address] [facility] [place] [place] [id number] Lumbar Spine 2 or 3 Views MR#: [id number] Acct: [id number] Name: CATHERINE BUI Rep #: [id number] : 1975 F 48 From: Giancarlo Maki MD PCP: ALEXANDREA Armando Status: [facility] Study: Lumbar Spine 2 or 3 Views Date of Exam: Exam# [id number] Ordering Dr: Primitivo Lockhart MD EXAM: XR Lumbosacral Spine, 2 or 3 Views CLINICAL INDICATION: RT TRANSFORAMINAL EPIDURAL L4 L5 S1 TECHNIQUE: Frontal and lateral views of the lumbar spine and sacrum. COMPARISON: No relevant prior studies available. FINDINGS: A total of 3 fluoroscopic images were obtained. Total fluoroscopy time was 9.1 seconds. Total radiation dose was 3.83 mGy. RAD/Lumbar Spine 2 or 3 Views IMPRESSION: Fluoroscopic guidance was used intraoperatively. Please refer to the operative note for further details. Reading Location: [id number] CC: ALEXANDREA Posadas; Dr. Primitivo Lockhart MD Business Intelligence Etl Developer: Signed Normal [facility] MR/POSTOP.ANEon 11-08-2024 MR/POSTOP.[facility] Medical Records Department [address] [facility] [place] [address] Anesthesia Postop Eval I 11/08/24 1017 MR#: [id number] Acct: [id number] Name: CATHERINE BUI ANN Rep #: [id number] : 1975 48 From: Last Barroso CRNA PCP: ALEXANDREA Armando Status:REG [facility] Y Race: C Location: [facility] Anesthesia: Postop Eval I Current Vital Signs Temperature: 36 F Pulse Rate: 67 Blood Pressure: 115/78 Respiratory Rate: 14 Pulse Ox: 97 Assessment Airway patent: Yes Spontaneous unlabored respirations: Yes nausea: No Vomiting: No Anesthesia Complication: No Fluid Hydration Crystalloid volume administer (ml): 300 Total IV fluid infused: 300 Progress Note Anesthesia document: Postop Eval 1 completed: Yes 11/08/24 101 Date Last Barroso STEWARDESS SUPERVISOR Cosigner Signature: Date CC: Signed Normal [facility] [id number] 11-08-2024 [facility] Medical Records Department [address] [place] [address] Anesthesia Postop Eval II 11/08/24 1408 MR#: [id number] Acct: [id number] Name: CATHERINE BUI ANN Rep #: [id number] : 1975 48 From: Veronica Wilhelm STEWARDESS SUPERVISOR PCP: ALEXANDREA Armando Status:[facility] Y Race: C Location: [facility] Anesthesia Postop Eval I Sum Postop Eval Completion status Anesthesia document: Postop Eval 1 completed: Yes Anesthesia Postop Eval I Summary Anesthesia Postop Eval I Summary: Anesthesia Postop Eval I: Assessment Summary Airway patent Yes 11/08/24 10:17 STEWARDESS [email or web address] Spontaneous unlabored Yes 11/08/24 10:17 STEWARDESS [email or web address] respirations Mental status nausea No 11/08/24 10:17 STEWARDESS [email or web address] Vomiting No 11/08/24 10:17 STEWARDESS [email or web address] Anesthesia Postop Eval I: Fluid Summary Crystalloid volume administer 300 11/08/24 10:17 STEWARDESS [email or web address] (ml) Colloids volume administered ( ml) Blood Product volume administered (ml) Total IV fluid infused 300 11/08/24 10:17 STEWARDESS [email or web address] Anesthesia Postop Eval I: Summary Notes Anesthesia Complication No 11/08/24 10:17 STEWARDESS [email or web address] Anesthesia Complication Comment: Post-operative progress note Anesthesia: Postop Eval II Evaluation Mental status: Awake and Calm Pain Level: 0 nausea: No Vomiting: No Complications Anesthesia Complication: No 11/08/24 1409 Date Veronica Wilhelm STEWARDESS SUPERVISOR Cosigner Signature: Date CC: Signed Normal [facility] Operative Reporton 5 Operative Report [facility] Medical Records Department [address] [place] [address] Operative Report 11/08/24 1140 MR#: [id number] Acct: [id number] Name: CATHERINE BUI Rep #: [id number] : 1975 48 From: Primitivo Lockhart MD PCP: ALEXANDREA Armando Status:[facility] Location: [facility] Operative Report (Standard) Operative Information Date of Procedure: 11/08/24 Pre-Operative Diagnosis: Lumbosacral radiculopathy, lumbosacral degenerative disc disease, lumbosacral spinal stenosis Post-Operative Diagnosis: Lumbosacral radiculopathy, lumbosacral degenerative disc disease, lumbosacral spinal stenosis Surgery/Procedure Performed: Right sided lumbar transforaminal epidural steroid injection L4-5, L5- S1 under fluoroscopic guidance life scientist: No Type of Anesthesia: Local MAC RN Documented Start/Stop Times: Operation Date: 11/08/24 10:50 Case Time Into Pre-Op 11/08/24 09:15 Anesthesia Start 11/08/24 10:00 Into Room 11/08/24 10:00 Procedure Start 11/08/24 10:08 Procedure End 11/08/24 10:11 Anesthesia End 11/08/24 10:13 Out of Room 11/08/24 10:13 Into Recovery 11/08/24 10:15 Into Phase II Recovery 11/08/24 10:33 Out of Recovery 11/08/24 10:33 Out of Phase II 11/08/24 10:51 Procedure Start Time: 11:40 Procedure Stop Time: 11:40 Select all DRAINS/GRAFTS/IMPLANTS that apply: None Estimated Blood Loss: 1 Specimen collected: No Description of surgery: PROCEDURE PERFORMED: Right-sided lumbar transforaminal epidural steroid injection, L4-5 and L5-S1. ANESTHESIA: MAC BLOOD LOSS: Minimal COMPLICATIONS: None DESCRIPTION OF PROCEDURE: History and physical of today was reviewed. Risks and benefits of the procedure were explained. The patient understood and agreed to proceed. Informed consent was obtained. IV inserted per routine protocol. The patient was taken to the operating room and placed in the prone position with a pillow positioned underneath the abdomen. The right side of the lower back was prepped and draped in a sterile fashion using iodine x3. Under fluoroscopy guidance on oblique view, the L4 through S1 vertebral bodies were visualized. The skin and subcutaneous tissue was anesthetized with approximately 5 mL of 1% lidocaine using a 25-gauge regular needle. Under direct visualization with fluoroscopy at approximately 35-degree angle, starting on the right L4, ending on the right L5, using a 22-gauge 5-inch spinal needle, the needle was advanced via the skin. The tip of the needle was maneuvered and directed towards the inferior and medial gutter of the transverse process at the superiormost aspect of the neural foramen. Once the tip of the needle was at the vicinity of the foramen, after negative aspiration for blood or CSF, a total of 1 mL of contrast was injected in divided doses between both levels to confirm correct placement of the needle as well as medial spread. The confirmation was obtained on AP as well as lateral view. After repeated negative aspiration and confirmation on AP as well as lateral view, a total of 6 mL of preservative-free 0.25% Marcaine with 80 mg of Depo-Medrol was injected in divided doses between both levels. The needles were then removed intact. The patient experienced no sign or symptoms of intrathecal or intravascular injection. The patient experienced no paresthesia. The procedure was completed without any apparent difficulty or any complications. The patient appeared to tolerate it well. Assessment and plan: This is a 48-year-old female with lumbosacral radiculopathy, lumbosacral Patito of this disease, lumbosacral spinal stenosis, status post right sided lumbar transforaminal epidural steroid injection L4-5, L5-S1, patient will continue her current medications, patient will follow-up in approximately 2 weeks for reevaluation. Surgical Findings: 1 Complications Complications: No Admit VTE Documentation VTE Present on Admission: No VTE Mechan Device Prophylaxis: None VTE Pharm Prophylaxis ordered?: No 11/08/24 1142 Cosigner Signature (if applicable): CC: ALEXANDREA Posadas; Dr. Primitivo Lockhart MD Signed [facility] MR/PAT.ANEon 10-29-2024 MR/PAT.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 When Was Last Pacemaker Check QUESTION #4 FULL TEXT: You/Your Family Experience fever (hyperthermia) with Anesthesia Last Oral Intake Last Oral intake: Last Oral Intake NPO since Meds taken in AM with sips of water? 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 Has anyone observed you stop breathing during sleep? STOP Results Positive 10/29/24 13:14 QUESTION #5 FULL TEXT : Do you snore loudly (louder than talking or can be heard through closed doors)? 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 Specify any problems Hx of Preganancy in last 3 No 10/29/24 13:14 Months Nurse Filling Out Transfusion DSCHRIBER 10/29/24 13:14 Questions: Date: 10/29/24 10/29/24 13:14 Time: 13:16 10/29/24 13:14 Patient unable to answer at this time (ie. confused, unrespo /Reproduction History /Reproductive History - gauge 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: /Reproductive Hx- gauge 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 Hx Now No 10/29/24 13:14 Gestational Age (in weeks): EDC: Hx Hx Para Hx Section SAB No 10/29/24 13:14 [facility] Medical History (Updated 10/29/24 @ 13:19 by Gina Murry) Anxiety Back pain Blood disorder Syncope MGUS (monoclonal gammopathy of unknown significance) GI bleed Wears glasses Thyroid disease Low iron Migraine headache History of hiatal hernia History of IBS Non-smoker Vocal cord dysfunction Breast cancer screening Hemangioma Chronic left hip pain Right thyroid nodule [...] mg tablet 200 mg PO DAILY 09/25/20 0 (more content not included)... Normal [facility] Breast Limited Unilateralon 10-20-2024 Breast Limited Unilateral [facility] Imaging Services [address] [place], [place] [address] Breast Limited Unilateral MR#: [id number] Acct: [id number] Name: CATHERINE BUI ANN Rep #: [id number] : 1975 F 48 From: Angelkia Ramirez MD PCP: ALEXANDREA Armando Status: REG CLI Study: Breast Limited Unilateral Date of Exam: Exam# [id number] Ordering Dr: Adriana IreneC PROCEDURE: DIAG MAMM W/CAD, UNILAT; RT BRST UNILAT ILYA ADD-ON; BREAST LIMITED UNILATERAL REASON FOR EXAM: 48-year-old female presents with palpable concern in the right breast and right axilla. Family history of breast cancer in a paternal grandmother. TECHNIQUE: DIAG MAMM W/CAD, UNILAT; RT BRST UNILAT ILYA ADD-ON; BREAST LIMITED UNILATERAL COMPARISON: 03/25/2024, 05/23/2022, 02/12/2021 FINDINGS: MAMMOGRAM: The breasts are heterogeneously dense which may obscure small masses. The mammogram demonstrates that the patient has dense breasts. Supplemental screening with whole breast ultrasound or MRI may be considered for further evaluation. Right breast: There are triangle skin markers indicating the area of palpable concern in the upper-outer right breast, underlying the skin marker is a small mass. This mass has been stable on multiple priors dating back to 2020 and likely represents an intramammary lymph node. Also, there is a triangle skin marker indicating the area of palpable concern in the right axilla, underlying the skin marker are no suspicious mammographic findings. There are some normal-appearing right axillary lymph nodes. Otherwise, there are no suspicious findings in the right breast. ULTRASOUND: Ultrasound was targeted to the right breast upper-outer quadrant. Ultrasound performed of the area of patient's palpable concern in the right breast at 10 o'clock 10 cm from the nipple demonstrates a normal-appearing intramammary lymph node with normal cortical thickness measuring 2.0 x 1.2 x 0.6 cm. Also, there are 3 normal-appearing right axillary lymph nodes. Otherwise, there are no suspicious sonographic findings in the upper-outer quadrant of the right breast and in the right axilla. US/Breast Limited Unilateral IMPRESSION: 1. The patient's area of palpable concern in the right breast corresponds to a stable intramammary lymph node, which has been stable on multiple priors dating back to 2020. 2. The patient's area of palpable concern in the right axilla corresponds to normal right axillary lymph nodes. 3. There is no evidence of malignancy in the right breast. OVERALL FINAL ASSESSMENT BI-RADS 2: BENIGN RECOMMEND ANNUAL MAMMOGRAPHIC SCREENING. RECOMMENDATION: Routine annual follow-up in 1 Year The patient will be next due for a mammogram in March 2025. A letter with findings and recommendations will be mailed to the patient. Reading Location: [id number] CC: ALEXANDREA Irene; ALEXANDREA Posadas Business Intelligence Etl Developer: Signed Normal [facility] Breast imaging reportOrdered By: Angelika Ramirez on 10-20-2024 Study report [facility] Imaging Services [address] [place] [address] DIAG MAMM W/CAD, UNILAT MR#: [id number] Acct: [id number] Name: CATHERINE BUI Rep #: [id number] : 1975 F 48 From: Sally Ramirez MD PCP: ALEXANDRAE Armando Status: REG CLI Study:DIAG MAMM W/CAD, UNILAT Date of Exam: 10/20/24 Exam# [id number] Ordering Dr: Adriana Irene PROCEDURE: DIAG MAMM W/CAD, UNILAT; RT BRST UNILAT ILYA ADD-ON; BREAST LIMITED UNILATERAL REASON FOR EXAM: 48-year-old female presents with palpable concern in the right breast and right axilla. Family history of breast cancer in a paternal grandmother. TECHNIQUE: DIAG MAMM W/CAD, UNILAT; RT BRST UNILAT ILYA ADD-ON; BREAST LIMITED UNILATERAL COMPARISON: 03/25/2024, 05/23/2022, 02/12/2021 FINDINGS: MAMMOGRAM: The breasts are heterogeneously dense which may obscure small masses. The mammogram demonstrates that the patient has dense breasts. Supplemental screening with whole breast ultrasound or MRI may be considered for further evaluation. Right breast: There are triangle skin markers indicating the area of palpable concern in the upper-outer right breast, underlying the skin marker is a small mass. This mass has been stable on multiple priors dating back to 2020 and likely represents an intramammary lymph node. Also, there is a triangle skin marker indicating the area of palpable concern in the right axilla, underlying the skin marker are no suspicious mammographic findings. There are some normal-appearing right axillary lymph nodes. Otherwise, there are no suspicious findings in the right breast. ULTRASOUND: Ultrasound was targeted to the right breast upper-outer quadrant. Ultrasound performed of the area of patient's palpable concern in the right breast at 10 o'clock 10 cm from the nipple demonstrates a normal-appearing intramammary lymph node with normal cortical thickness measuring 2.0 x 1.2 x 0.6 cm. Also, there are 3 normal-appearing right axillary lymph nodes. Otherwise, there are no suspicious sonographic findings in the upper-outer quadrant of the right breast and in the right axilla. BI/DIAG MAMM W/CAD, UNILAT IMPRESSION: 1. The patient's area of palpable concern in the right breast corresponds to a stable intramammary lymph node, which has been stable on multiple priors dating back to 2020. 2. The patient's area of palpable concern in the right axilla corresponds to normal right axillary lymph nodes. 3. There is no evidence of malignancy in the right breast. OVERALL FINAL ASSESSMENT BI-RADS 2: BENIGN RECOMMEND ANNUAL MAMMOGRAPHIC SCREENING. RECOMMENDATION: Routine annual follow-up in 1 Year The patient will be next due for a mammogram in March 2025. A letter with findings and recommendations will be mailed to the patient. Reading Location: [facility] CC: ALEXANDREA Irene; ALEXANDREA Posadas ~ Business Intelligence Etl Developer: Signed [facility] Study report [facility] Imaging Services [address] [place], [place] [address] Rt Brst Unilat Ilya Add-On MR#: [id number] Acct: [id number] Name: CATHERINE BUI ANN Rep #: [id number] : 1975 F 48 From: Sally Ramirez MD PCP: ALEXANDREA Armando Status: [facility] CLI Study:Rt Brst Unilat Ilya Add-On Date of Exam : 10/20/24 Exam# [id number] Ordering Dr: Adriana Irene PROCEDURE: DIAG MAMM W/CAD, UNILAT; RT BRST UNILAT ILYA ADD-ON; BREAST LIMITED UNILATERAL REASON FOR EXAM: 48-year-old female presents with palpable concern in the right breast and right axilla. Family history of breast cancer in a paternal grandmother. TECHNIQUE: DIAG MAMM W/CAD, UNILAT; RT BRST UNILAT ILAY ADD-ON; BREAST LIMITED UNILATERAL COMPARISON: 03/25/2024, 05/23/2022, 02/12/2021 FINDINGS: MAMMOGRAM: The breasts are heterogeneously dense which may obscure small masses. The mammogram demonstrates that the patient has dense breasts. Supplemental screening with whole breast ultrasound or MRI may be considered for further evaluation. Right breast: There are triangle skin markers indicating the area of palpable concern in the upper-outer right breast, underlying the skin marker is a small mass. This mass has been stable on multiple priors dating back to 2020 and likely represents an intramammary lymph node. Also, there is a triangle skin marker indicating the area of palpable concern in the right axilla, underlying the skin marker are no suspicious mammographic findings. There are some normal-appearing right axillary lymph nodes. Otherwise, there are no suspicious findings in the right breast. ULTRASOUND: Ultrasound was targeted to the right breast upper-outer quadrant. Ultrasound performed of the area of patient's palpable concern in the right breast at 10 o'clock 10 cm from the nipple demonstrates a normal-appearing intramammary lymph node with normal cortical thickness measuring 2.0 x 1.2 x 0.6 cm. Also, there are 3 normal-appearing right axillary lymph nodes. Otherwise, there are no suspicious sonographic findings in the upper-outer quadrant of the right breast and in the right axilla. BI/Rt Brst Unilat Ilya Add-On IMPRESSION: 1. The patient's area of palpable concern in the right breast corresponds to a stable intramammary lymph node, which has been stable on multiple priors dating back to 2020. 2. The patient's area of palpable concern in the right axilla corresponds to normal right axillary lymph nodes. 3. There is no evidence of malignancy in the right breast. OVERALL FINAL ASSESSMENT BI-RADS 2: BENIGN RECOMMEND ANNUAL MAMMOGRAPHIC SCREENING. RECOMMENDATION: Routine annual follow-up in 1 Year The patient will be next due for a mammogram in March 2025. A letter with findings and recommendations will be mailed to the patient. Reading Location: [id number] CC: ALEXANDREA Irene; ALEXANDREA Posadas ~ Business Intelligence Etl Developer: Signed [facility] DIAG MAMM W/CAD, UNILATon DIAG MAMM W/CAD, UNILAT [facility] Imaging Services [address] [place] [address] DIAG MAMM W/CAD, UNILAT MR#: [id number] Acct: [id number] Name: CATHERINE BUI Rep #: [id number] : 1975 F 48 From: Angelika Ramirez MD PCP: ALEXANDREA Armando Status: REG CLI Study: DIAG MAMM W/CAD, UNILAT Date of Exam: 10/20/24 Exam# [id number] Ordering Dr: Adriana Irene PROCEDURE: DIAG MAMM W/CAD, UNILAT; RT BRST UNILAT ILYA ADD-ON; BREAST LIMITED UNILATERAL REASON FOR EXAM: 48-year-old female presents with palpable concern in the right breast and right axilla. Family history of breast cancer in a paternal grandmother. TECHNIQUE: DIAG MAMM W/CAD, UNILAT; RT BRST UNILAT ILYA ADD-ON; BREAST LIMITED UNILATERAL COMPARISON: 03/25/2024, 05/23/2022, 02/12/2021 FINDINGS: MAMMOGRAM: The breasts are heterogeneously dense which may obscure small masses. The mammogram demonstrates that the patient has dense breasts. Supplemental screening with whole breast ultrasound or MRI may be considered for further evaluation. Right breast: There are triangle skin markers indicating the area of palpable concern in the upper-outer right breast, underlying the skin marker is a small mass. This mass has been stable on multiple priors dating back to 2020 and likely represents an intramammary lymph node. Also, there is a triangle skin marker indicating the area of palpable concern in the right axilla, underlying the skin marker are no suspicious mammographic findings. There are some normal-appearing right axillary lymph nodes. Otherwise, there are no suspicious findings in the right breast. ULTRASOUND: Ultrasound was targeted to the right breast upper-outer quadrant. Ultrasound performed of the area of patient's palpable concern in the right breast at 10 o'clock 10 cm from the nipple demonstrates a normal-appearing intramammary lymph node with normal cortical thickness measuring 2.0 x 1.2 x 0.6 cm. Also, there are 3 normal-appearing right axillary lymph nodes. Otherwise, there are no suspicious sonographic findings in the upper-outer quadrant of the right breast and in the right axilla. BI/DIAG MAMM W/CAD, UNILAT IMPRESSION: 1. The patient's area of palpable concern in the right breast corresponds to a stable intramammary lymph node, which has been stable on multiple priors dating back to 2020. 2. The patient's area of palpable concern in the right axilla corresponds to normal right axillary lymph nodes. 3. There is no evidence of malignancy in the right breast. OVERALL FINAL ASSESSMENT BI-RADS 2: BENIGN RECOMMEND ANNUAL MAMMOGRAPHIC SCREENING. RECOMMENDATION: Routine annual follow-up in 1 Year The patient will be next due for a mammogram in March 2025. A letter with findings and recommendations will be mailed to the patient. Reading Location: [id number] CC: ALEXANDREA Irene; ALEXANDREA Posadas Business Intelligence Etl Developer: Signed Normal [facility] Rt Brst Unilat Ilya Add-Onon 10-20-2024 Rt Brst Unilat Ilya Add-On [facility] Imaging Services [address] [place] [id number] Rt Brst Unilat Ilya Add-On MR#: [id number] Acct: [id number] Name: CATHERINE BUI ANN Rep #: [id number] : 1975 F 48 From: Angelika Ramirez MD PCP: ALEXANDREA Armando Status: [facility] CLI Study: Rt Brst Unilat Ilya Add-On Date of Exam: 10/20 Exam# [id number] Ordering Dr: Adriana Irene PROCEDURE: DIAG MAMM W/CAD, UNILAT; RT BRST UNILAT ILYA ADD-ON; BREAST LIMITED UNILATERAL REASON FOR EXAM: 48-year-old female presents with palpable concern in the right breast and right axilla. Family history of breast cancer in a paternal grandmother. TECHNIQUE: DIAG MAMM W/CAD, UNILAT; RT BRST UNILAT ILYA ADD-ON; BREAST LIMITED UNILATERAL COMPARISON: 03/25/2024, 05/23/2022, 02/12/2021 FINDINGS: MAMMOGRAM: The breasts are heterogeneously dense which may obscure small masses. The mammogram demonstrates that the patient has dense breasts. Supplemental screening with whole breast ultrasound or MRI may be considered for further evaluation. Right breast: There are triangle skin markers indicating the area of palpable concern in the upper-outer right breast, underlying the skin marker is a small mass. This mass has been stable on multiple priors dating back to 2020 and likely represents an intramammary lymph node. Also, there is a triangle skin marker indicating the area of palpable concern in the right axilla, underlying the skin marker are no suspicious mammographic findings. There are some normal-appearing right axillary lymph nodes. Otherwise, there are no suspicious findings in the right breast. ULTRASOUND: Ultrasound was targeted to the right breast upper-outer quadrant. Ultrasound performed of the area of patient's palpable concern in the right breast at 10 o'clock 10 cm from the nipple demonstrates a normal-appearing intramammary lymph node with normal cortical thickness measuring 2.0 x 1.2 x 0.6 cm. Also, there are 3 normal-appearing right axillary lymph nodes. Otherwise, there are no suspicious sonographic findings in the upper-outer quadrant of the right breast and in the right axilla. BI/Rt Brst Unilat Ilya Add-On IMPRESSION: 1. The patient's area of palpable concern in the right breast corresponds to a stable intramammary lymph node, which has been stable on multiple priors dating back to 2020. 2. The patient's area of palpable concern in the right axilla corresponds to normal right axillary lymph nodes. 3. There is no evidence of malignancy in the right breast. OVERALL FINAL ASSESSMENT BI-RADS 2: BENIGN RECOMMEND ANNUAL MAMMOGRAPHIC SCREENING. RECOMMENDATION: Routine annual follow-up in 1 Year The patient will be next due for a mammogram in March 2025. A letter with findings and recommendations will be mailed to the patient. Reading Location: [id number] CC: ALEXANDREA Irene; ASSISTANT ASSOCIATE PROFESSOR-C Giancarlo Posadas Business Intelligence Etl Developer: Signed Normal [facility] ABD Limited w/ Elastographyo n 09-27-2024 ABD Limited w/ Elastography [facility] Imaging Services [address] [place] [address] ABD Limited w/ Elastography MR#: [id number] Acct: [id number] Name: CATHERINE BUI Rep #: [id number] : 1975 F 48 From: Jerome martínez MD PCP: Giancarlo Posadas, MARLENA-C Status: REG CLI Study: ABD Limited w/ Elastography Date of Exam: 01/13 Exam# [id number] Ordering Dr: Conchita Burleson PROCEDURE: ABD LIMITED W/ ELASTOGRAPHY REASON FOR EXAM: FATTY LIVER COMPARISON: Prior study dated July 18, 2023. TECHNIQUE: Right upper quadrant abdominal ultrasound. Jayda ElastQ Imaging shear wave elastography for non- invasive assessment of liver tissue stiffness. Jayda EPIQ Elite. FINDINGS: LIVER: Size: Unremarkable Length: 16.8 cm Echotexture: Diffusely echogenic suggesting fatty infiltration Contour: Normal Lesions: None identified Elastography: EQI Med: 8.3 kPa EQI Med Nimesh: 1.64 m/s IQR/Med: 26.5 %* GALLBLADDER: Surgically absent. COMMON BILE DUCT: Dilated measuring up to 9 mm. . PANCREAS: Visualized portions are unremarkable. The distal body and tail are obscured by bowel gas. Visualized portions of the right kidney are unremarkable. 1.3 cm x 1.6 cm 1.2 cm cyst. No right upper quadrant ascites. US/ABD Limited w/ Elastography IMPRESSION: Cyyw-ac-ojfvggrx degree of hepatic fibrosis. Fatty infiltration of the liver. Status post cholecystectomy. Reference Values: SRU <1.37 m/s (5.7kPa): No to mild fibrosis 1.37 m/s - 2.2 m/s: Moderate to severe fibrosis >2.2 m/s (15kPa): Significant fibrosis / cirrhosis METAVIR Score F2 or higher: 1.34 m/s (5.7kPa) F3 or higher: 1.55 m/s (7.3kPa) F4: 1.80 m/s (10kPa) * If the IQR/Med is >30%, the variance in the measurements is a large and the accuracy of the measurement may be in question. Reading Location: [place] [address] CC: ALEXANDREA Posadas; CRISTY Julio Business Intelligence Etl Developer: Signed Normal [facility] Absolute lymphocyte countOrd ered By: Conchita Burleson on 09-27-2024 Lymphocytes Auto (Unsp spec) [#/Vol] 2.73 10*3/uL 0.83-4.51 [facility] Absolute neutrophil countOrd ered By: Conchita Burleson on 09-27-2024 Neutrophils (Bld) [#/Vol] 5.7 10*3/uL 2.0-7.7 [facility] Automated lymphocyte count a s percentage of total leukocytesOrdered By: Conchita Burleson on 09-27-2024 Lymphocytes/100 WBC Auto (Unsp spec) 29.1 % 19-41 [facility] Basophil percentageOrdered B y: Conchita Burleson on 09-27-2024 Basophils/100 WBC (Bld) 1.5 % High 0-1 [facility] CBC W/Diff, Automatedon Absolute Lymph 2.73 X10 3/uL Normal 0.83-4.51 [facility] Comment on above: Performed By: #### L 100.0100, L503.6550, L503.6030 ####[facility] [address] [place], [address] Absolute Neut 5.7 X10 3/uL Normal 2.0-7.7 [facility] Comment on above: Performed By: #### L 100.0100, L503.6550, L503.6030 ####[facility] [address] [place], [address] Basophils/100 WBC (Bld) 1.5 % High 0-1 [facility] Comment on above: Performed By: #### L 100.0100, L503.6550, L503.6030 ####[facility] [address] [place], [address] Eosinophils/100 WBC (Bld) 1.2 % Normal 0-5 [facility] Comment on above: Performed By: #### L 100.0100, L503.6550, L503.6030 ####[facility] [address] [place], [address] Erythrocyte distribution width (RBC) [Ratio] 12.7 % Normal 11.6-14.6 [facility] Comment on above: Performed By: #### L 100.0100, L503.6550, L503.6030 ####[facility] [address] [place], [address] Hematocrit (Bld) [Volume fraction] 41.4 % Normal 37-47 [facility] Comment on above: Performed By: #### L 100.0100, L503.6550, L503.6030 ####[facility] [address] [place], [address] Hemoglobin (Bld) [Mass/Vol] 14.4 g/dL Normal 12.0-15.0 [facility] Comment on above: Performed By: #### L 100.0100, L503.6550, L503.6030 ####[facility] [address] [place], [address] IG% 0.400 Normal 0.0-0.9 [facility] Comment on above: Result Comment: IG% - Immature Granulocytes (promyelocytes, myelocytes and metamyelocytes) > 1% indicates that a LEFT SHIFT is Present. Performed By: #### L 100.0100, L503.6550, L503.6030 ####[facility] [address] [place], [address] Lymphocytes/100 WBC (Bld) 29.1 % Normal 19-41 [facility] Comment on above: Performed By: #### L 100.0100, L503.6550, L503.6030 ####[facility] [address] [place], [address] MCH (RBC) [Entitic mass] 30.8 pg Normal 27.0-32.0 [facility] Comment on above: Performed By: #### L 100.0100, L503.6550, L503.6030 ####[facility] [address] [place], [address] MCHC (RBC) [Mass/Vol] 34.8 g/dL Normal 32-36 [facility] Comment on above: Performed By: #### L 100.0100, L503.6550, L503.6030 ####[facility] [address] [place], [address] MCV (RBC) [Entitic vol] 88.7 fL Normal 81-99 [facility] Comment on above: Performed By: #### L 100.0100, L503.6550, L503.6030 ####[facility] [address] [place], [address] Monocytes/100 WBC (Bld) 6.7 % Normal 0-10 [facility] Comment on above: Performed By: #### L 100.0100, L503.6550, L503.6030 ####[facility] [address] [place], [address] Neutrophils/100 WBC (Bld) 61.1 % Normal 47-70 [facility] Comment on above: Performed By: #### L 100.0100, L503.6550, L503.6030 ####[facility] [address] [place], [address] Nucleated RBC (Bld) [#/Vol] 0 10*3/uL Normal 0-5 [facility] Comment on above: Performed By: #### L 100.0100, L503.6550, L503.6030 ####[facility] [address] [place], [address] Platelet mean volume (Bld) [Entitic vol] 10.3 fL Normal 6.2-12.0 [facility] Comment on above: Performed By: #### L 100.0100, L503.6550, L503.6030 ####[facility] [address] [place], [address] Platelets (Bld) [#/Vol] 290 10*3/uL Normal 150-450 [facility] Comment on above: Performed By: #### L 100.0100, L503.6550, L503.6030 ####[facility] [address] [place], [address] RBC (Bld) [#/Vol] 4.67 10*6/uL Normal 4.2-5.4 [facility] Comment on above: Performed By: #### L 100.0100, L503.6550, L503.6030 ####[facility] [address] [place], [address] RDW SD 40.7 fl Normal 35.1-43.9 [facility] Comment on above: Performed By: #### L 100.0100, L503.6550, L503.6030 ####[facility] [address] [place], [address] WBC (Bld) [#/Vol] 9.4 10*3/uL Normal 4.4-11.0 [facility] Comment on above: Performed By: #### L 100.0100, L503.6550, L503.6030 ####[facility] [address] [place], [address] Eosinophil percentageOrdered By: Conchita Burleson on 09-27-2024 Eosinophils/100 WBC (Bld) 1.2 % 0-5 [facility] Erythrocyte distribution wid th ratioOrdered By: Conchitacruzito Burleson on 09-27-2024 Erythrocyte distribution width (RBC) [Ratio] 12.7 % 11.6-14.6 [facility] Erythrocyte distribution wid th standard deviationOrdered By: Conchitacruzito Burleson on 09-27-2024 Erythrocyte distribution width (RBC) [Ratio] 40.7 fl 35.1-43.9 [facility] Ferritinon 09-27-2024 Ferritin [Mass/Vol] 388 ng/mL High 22-378 [facility] Comment on above: Performed By: #### L 100.0100, L503.6550, L503.6030 ####[facility] [address] [place], [place], [id number] Hematocrit Auto (Bld) [Volum e fraction]Ordered By: Conchitacruzito Burleson on 09-27-2024 Hematocrit (Bld) [Volume fraction] 41.4 % 37-47 [facility] Hemoglobin measurementOrdere d By: Conchita Burleson on 09-27-2024 Hemoglobin (Bld) [Mass/Vol] 14.4 g/dL 12.0-15.0 [facility] Immature granulocytes/100 WB C Auto (Bld)Ordered By: Conchitacruzito Burleson on 09-27-2024 Immature granulocytes/100 WBC (Bld) 0.400 % 0.0-0.9 [facility] Comment on above: IG% - Immature Granu locytes (promyelocytes, myelocytes and metamyelocytes) > 1% indicates that a LEFT SHIFT is Present. Iron measurement (mass/mass) Ordered By: Conchita Burleson on 09-27-2024 Iron (Unsp spec) [Mass/Mass] 65 ug/dL 50-170 [facility] Iron+Iron Binding Capacityon 09-27-2024 Iron [Mass/Vol] 65 ug/dL Normal 50-170 [facility] Comment on above: Performed By: #### L 100.0100, L503.6550, L503.6030 ####[facility] [address] [place], [place], [id number] IRON SATURATION 25.0 Normal 13-59 [facility] Comment on above: Performed By: #### L 100.0100, L503.6550, L503.6030 ####[facility] [address] [place], [address] TIBC 260 ug/dL Normal 250-450 [facility] Comment on above: Performed By: #### L 100.0100, L503.6550, L503.6030 ####[facility] [address] [place], [address] UIBC 195 ug/dL Low 228-428 [facility] Comment on above: Performed By: #### L 100.0100, L503.6550, L503.6030 ####[facility] [address] [place], [address] MCV (mean corpuscular volume ) determinationOrdered By: Conchita Burleson on 09-27-2024 MCV (RBC) [Entitic vol] 88.7 fL 81-99 [facility] Mean corpuscular hemoglobin (MCH) determinationOrdered By: Conchita Burleson on 09-27-2024 MCH (RBC) [Entitic mass] 30.8 pg 27.0-32.0 [facility] Mean corpuscular hemoglobin concentration (MCHC) determinationOrdered By: Conchita Burleson on 09-27-2024 MCHC (RBC) [Mass/Vol] 34.8 g/dL 32-36 [facility] Mean platelet volume determi nationOrdered By: Conchita Burleson on 09-27-2024 Platelet mean volume (Bld) [Entitic vol] 10.3 fL 6.2-12.0 [facility] Monocyte percentageOrdered B y: Conchita Burleson on 09-27-2024 Monocytes/100 WBC (Bld) 6.7 % 0-10 [facility] Neutrophil percentageOrdered By: Conchita Burleson on 09-27-2024 Neutrophils/100 WBC (Bld) 61.1 % 47-70 [facility] No Panel InformationOrdered By: Conchita Burleson on 09-27-2024 Unsaturated Iron Binding Capacity 195 ug/dL Low 228-428 [facility] Nucleated red blood cell per centageOrdered By: Conchita Burleson on 09-27-2024 Nucleated RBC/100 WBC (Bld) [Ratio] 0 % 0-5 [facility] Platelet countOrdered By: Pat Burleson on 09-27-2024 Platelets (Bld) [#/Vol] 290 10*3/uL 150-450 [facility] RBC Auto (Bld) [#/Vol]Ordere d By: Conchita Burleson on 09-27-2024 RBC (Bld) [#/Vol] 4.67 10*6/uL 4.2-5.4 [facility] Serum or plasma ferritin chris surement (mass/volume)Ordered By: Conchita Burleson on 09-27-2024 Ferritin [Mass/Vol] 388 ng/mL High 22-378 [facility] Serum or plasma iron saturat ion measurement (mass fraction)Ordered By: Conchita Burleson on 09-27-2024 Iron saturation [Mass fraction] 25.0 % 13-59 [facility] White blood cell (WBC) count Ordered By: Conchita Burleson on 09-27-2024 WBC (Bld) [#/Vol] 9.4 10*3/uL 4.4-11.0 [facility] Estrogen, Total, Serumon ESTROGENS,TOTAL 181 pg/mL Normal . [facility] Comment on above: Order Comment: 1 Result Comment: Prep ubertal < 40 Female Cycle: 1-10 Days 16 - 328 11-20 Days 34 - 501 21-30 Days 48 - 350 Post-Menopausal 40 - 244 Performed By: #### L 100.0100, L504.2610, L101.9900, L3130.0010, L3100.3425, L500.4050 #### [facility] Laboratory [address] [place], [address] PROLACTIN 4465on 09-18-2024 PROLACTIN 11.4 ng/mL Normal 4.8-33.4 [facility] Comment on above: Performed By: #### L 3300.1750, L500.4050, L801.2600, L501.9520, L3100.5400, L3100.5310, L3100.5055, L3300.6900, L506.0400 ####[facility] [address] [place], [place], [id number] Testosterone, Total / Freeon 09-18-2024 TESTOSTER,FREE 0.13 ng/dL Normal 0.10-0.85 [facility] Comment on above: Order Comment: N Performed By: #### L 3300.1750, L500.4050, L801.2600, L501.9520, L3100.5400, L3100.5310, L3100.5055, L3300.6900, L506.0400 ####[facility] [address] [place], [place], [id number] TESTOSTER,TOTAL 7 ng/dL Normal 4-50 [facility] Comment on above: Order Comment: N Performed By: #### L 3300.1750, L500.4050, L801.2600, L501.9520, L3100.5400, L3100.5310, L3100.5055, L3300.6900, L506.0400 ####[facility] [address] [place], [place], [phone] TESTOSTERONE,%F 1.86 Normal 0.50-2.80 [facility] Comment on above: Order Comment: N Performed By: #### L 3300.1750, L500.4050, L801.2600, L501.9520, L3100.5400, L3100.5310, L3100.5055, L3300.6900, L506.0400 ####[facility] [address] [place], [place], [phone] Thyroid Peroxidase ABon 05- THYR PEROX AB 9 IU/mL Normal 0-34 [facility] Comment on above: Result Comment: Perf ormed at: - [facility] [id number] Lead Cargoman: Dipesh Nagy PhD, Phone: [phone] Performed at: [facility] [id number] Lead Cargoman: Dhaval Vazquez MD, Phone: [phone] Performed By: #### L 3300.1750, L500.4050, L801.2600, L501.9520, L3100.5400, L3100.5310, L3100.5055, L3300.6900, L506.0400 ####[facility] [address] [place], [address] PROGESTERONE 4317on 09-17-19 25 PROGESTERONE 0.2 ng/mL Normal . [facility] Comment on above: Order Comment: N Result Comment: Foll icular phase 0.1 - 0.9 Luteal phase 1.8 - 23.9 Ovulation phase 0.1 - 12.0 First trimester 11.0 - 44.3 Second trimester 25.4 - 83.3 Third trimester 58.7 - 214.0 Postmenopausal 0.0 - 0.1 Performed at: [facility] [address] [id number] Lead Cargoman: Dipesh Nagy PhD, Phone: [phone] Performed By: #### L 3300.1750, L500.4050, L801.2600, L501.9520, L3100.5400, L3100.5310, L3100.5055, L3300.6900, L506.0400 ####[facility] [address] [facility] [address]. [place], [place], [phone] Anion gap in Serum or Plasma Ordered By: Adriana Irene on 09-15-2024 Anion gap [Moles/Vol] 12 mmol/L - [facility] BUN/creatinine ratioOrdered By: Adriana Irene on 09-15-2024 Urea nitrogen/Creatinine [Mass ratio] 12.7 mg/mg - [facility] Bilirubin, totalOrdered By: Adriana Irene on 09-15-2024 Bilirubin [Mass/Vol] 0.28 mg/dL 0.00-1.30 [place] Carbon dioxide, total [Moles /volume] in Central venous bloodOrdered By: Adriana Irene on 09-15-2024 CO2 [Moles/Vol] 23.4 mmol/L 21.0-32.0 [facility] Chloride assayOrdered By: Nori Irene on 09-15-2024 Chloride [Moles/Vol] 105 mmol/L 98-108 [place] Comprehensive Metabolic Prof ilon 09-15-2024 Albumin [Mass/Vol] 4.2 g/dL Normal 3.5-5.0 [facility] Comment on above: Performed By: #### L 3300.1750, L500.4050, L801.2600, L501.9520, L3100.5400, L3100.5310, L3100.5055, L3300.6900, L506.0400 ####[facility] [address] [place], [place], [phone] Albumin/Globulin [Mass ratio] 1.5 {ratio} Normal 0.9-2.4 [facility] Comment on above: Performed By: #### L 3300.1750, L500.4050, L801.2600, L501.9520, L3100.5400, L3100.5310, L3100.5055, L3300.6900, L506.0400 ####[facility] [address] [place], [place], [phone] ALK PHOS 79 U/L Normal 35-104 [facility] Comment on above: Performed By: #### L 3300.1750, L500.4050, L801.2600, L501.9520, L3100.5400, L3100.5310, L3100.5055, L3300.6900, L506.0400 ####[facility] [address] [place], [place], [phone](816) ALT [Catalytic activity/Vol] 13 U/L Normal <=34 [facility] Comment on above: Performed By: #### L 3300.1750, L500.4050, L801.2600, L501.9520, L3100.5400, L3100.5310, L3100.5055, L3300.6900, L506.0400 ####[facility] [address] [place], [address] AST [Catalytic activity/Vol] 18 U/L Normal <=31 [facility] Comment on above: Performed By: #### L 3300.1750, L500.4050, L801.2600, L501.9520, L3100.5400, L3100.5310, L3100.5055, L3300.6900, L506.0400 ####[facility] [address] [place], [place], [phone](981) Bilirubin [Mass/Vol] 0.28 mg/dL Normal 0.00-1.30 [place] Comment on above: Performed By: #### L 3300.1750, L500.4050, L801.2600, L501.9520, L3100.5400, L3100.5310, L3100.5055, L3300.6900, L506.0400 ####[facility] [address] [place], [place], [phone](397) BUN/CRE 12.7 RATIO Normal 10-20 [facility] Comment on above: Performed By: #### L 3300.1750, L500.4050, L801.2600, L501.9520, L3100.5400, L3100.5310, L3100.5055, L3300.6900, L506.0400 ####[facility] [address] [place], [place], [phone]) Calcium [Mass/Vol] 9.0 mg/dL Normal 7.6-11.0 [facility] Comment on above: Performed By: #### L 3300.1750, L500.4050, L801.2600, L501.9520, L3100.5400, L3100.5310, L3100.5055, L3300.6900, L506.0400 ####[facility] [address] [place], [place], [phone] Chloride [Moles/Vol] 105 mmol/L Normal 98-108 [place] Comment on above: Performed By: #### L 3300.1750, L500.4050, L801.2600, L501.9520, L3100.5400, L3100.5310, L3100.5055, L3300.6900, L506.0400 ####[facility] [address] [place], [place], [phone](315) CO2 [Moles/Vol] 23.4 mmol/L Normal 21.0-32.0 [facility] Comment on above: Performed By: #### L 3300.1750, L500.4050, L801.2600, L501.9520, L3100.5400, L3100.5310, L3100.5055, L3300.6900, L506.0400 ####[facility] [address] [place], [place], [phone] Creatinine [Mass/Vol] 0.51 mg/dL Low 0.70-1.20 [facility] Comment on above: Performed By: #### L 3300.1750, L500.4050, L801.2600, L501.9520, L3100.5400, L3100.5310, L3100.5055, L3300.6900, L506.0400 ####[facility] [address] [place], [address] GAP 12 Normal 5-15 [facility] Comment on above: Performed By: #### L 3300.1750, L500.4050, L801.2600, L501.9520, L3100.5400, L3100.5310, L3100.5055, L3300.6900, L506.0400 ####[facility] [address] [place], [address] GFR/1.73 sq M.predicted among non-blacks MDRD (S/P/Bld) [Vol rate/Area] 116 mL/min/{1.73_m2} Normal >60 [facility] Comment on above: Result Comment: mL/m in/1.73m2 CKD-EPI Creatinine Equation (2020) Performed By: #### L 3300.1750, L500.4050, L801.2600, L501.9520, L3100.5400, L3100.5310, L3100.5055, L3300.6900, L506.0400 ####[facility] [address] [place], [address] Globulin (S) [Mass/Vol] 2.8 g/dL Normal 2.2-4.2 [facility] Comment on above: Performed By: #### L 3300.1750, L500.4050, L801.2600, L501.9520, L3100.5400, L3100.5310, L3100.5055, L3300.6900, L506.0400 ####[facility] [address] [place], [address] Glucose [Mass/Vol] 85 mg/dL Normal 70-99 [facility] Comment on above: Performed By: #### L 3300.1750, L500.4050, L801.2600, L501.9520, L3100.5400, L3100.5310, L3100.5055, L3300.6900, L506.0400 ####[facility] [address] [place], [address] Potassium [Moles/Vol] 3.9 mmol/L Normal 3.3-5.1 [facility] Comment on above: Performed By: #### L 3300.1750, L500.4050, L801.2600, L501.9520, L3100.5400, L3100.5310, L3100.5055, L3300.6900, L506.0400 ####[facility] [address] [place], [place], [phone] Sodium [Moles/Vol] 140 mmol/L Normal 133-145 [facility] Comment on above: Performed By: #### L 3300.1750, L500.4050, L801.2600, L501.9520, L3100.5400, L3100.5310, L3100.5055, L3300.6900, L506.0400 ####[facility] [address] [place], [place], [phone] T PROT 6.9 g/dL Normal 5.9-8.4 [facility] Comment on above: Performed By: #### L 3300.1750, L500.4050, L801.2600, L501.9520, L3100.5400, L3100.5310, L3100.5055, L3300.6900, L506.0400 ####[facility] [address] [place], [place], [phone] Urea nitrogen [Mass/Vol] 7 mg/dL Normal 4-19 [facility] Comment on above: Performed By: #### L 3300.1750, L500.4050, L801.2600, L501.9520, L3100.5400, L3100.5310, L3100.5055, L3300.6900, L506.0400 ####[facility] [address] [place], [place], [phone] Estradiolon 09-15-2024 ESTRADIOL 107.0 pg/mL Normal [facility] Comment on above: Result Comment: FEMA LES [...] By: #### L 3300.1750, L500.4050, L801.2600, L501.9520, L3100.5400, L3100.5310, L3100.5055, L3300.6900, L506.0400 ####[facility] [address] [place], [place], [phone] FSH and LHon 09-15-2024 FSH 6.4 mIU/mL Normal [facility] Comment on above: Result Comment: FEMA LE: Follicular: 1.4 - 18.1 mIU/mL Midcycle: 3.4 - 33.4 mIU/mL Luteal: 1.5 - 9.1 mIU/mL Post Menopause: 23.0 - 116.3 mIU/mL MALE: 1.4 - 18.1 mIU/mL Performed By: #### L 3300.1750, L500.4050, L801.2600, L501.9520, L3100.5400, L3100.5310, L3100.5055, L3300.6900, L506.0400 ####[facility] [address] [place], [place], [phone] LH 11.3 mIU/mL Normal [facility] Comment on above: Result Comment: FEMA LE: Follicular: 1.9-12.5 mIU/mL Midcycle: 8.7-76.3 mIU/mL Luteal: 0.5-16.9 mIU/mL Post Menopause: 15.9-54.0 mIU/mL MALE: 20-70 Years: 1.5-9.3 mIU/mL >70 Years: 3.1-34.6 mIU/mL Performed By: #### L 3300.1750, L500.4050, L801.2600, L501.9520, L3100.5400, L3100.5310, L3100.5055, L3300.6900, L506.0400 ####[facility] [address] [place], [address] Free testosterone percentage Ordered By: Adriana Irene on 09-15-2024 Testosterone Free/Testosterone.total [Mass fraction] 1.86 % 0.50-2.80 [facility] Glomerular filtration rate ( GFR) estimation/1.73 sq m using serum, plasma, or whole bOrdered By: Adriana Irene on 09-15-2024 GFR/1.73 sq M.predicted among non-blacks MDRD (S/P/Bld) [Vol rate/Area] 116 mL/min/{1.73_m2} >60 [facility] Comment on above: mL/min/1.73m2 CKD-EP I Creatinine Equation (2020) LH ser/plasOrdered By: Jamal Irene on 09-15-2024 Lutropin Qn 11.3 m[IU]/mL [facility] Comment on above: FEMALE:Follicular: 1 .9-12.5 mIU/mLMidcycle: 8.7-76.3 mIU/mLLuteal: 0.5-16.9 mIU/mLPost Menopause: 15.9-54.0 mIU/mLMALE:20-70 Years: 1.5-9.3 mIU/mL>70 Years: 3.1-34.6 mIU/mL Laboratory - Chemistry and C hemistry - challengeOrdered By: Adriana Irene on 09-15-2024 AST [Catalytic activity/Vol] 18 U/L <32 [facility] Potassium measurement (mass/ volume)Ordered By: Adriana Irene on 09-15-2024 Potassium (Unsp spec) [Mass/Vol] 3.9 mmol/L 3.3-5.1 [facility] Serum creatinine measurement (mass/volume)Ordered By: Adriana Irene on 09-15-2024 Creatinine [Mass/Vol] 0.51 mg/dL Low 0.70-1.20 [facility] Serum globulin measurementOr dered By: Adriana Irene on 09-15-2024 Globulin (S) [Mass/Vol] 2.8 g/dL 2.2-4.2 [facility] Serum glucose measurement (m ass/volume)Ordered By: Adriana Irene on 09-15-2024 Glucose [Mass/Vol] 85 mg/dL 70-99 [facility] Serum or plasma alanine grajeda otransferase (ALT) measurementOrdered By: Adriana Irene on 09-15-2024 ALT [Catalytic activity/Vol] 13 U/L <35 [facility] Serum or plasma albumin erick urement (mass/volume)Ordered By: Adriana Irene on 09-15-2024 Albumin [Mass/Vol] 4.2 g/dL 3.5-5.0 [facility] Serum or plasma albumin/glob ulin mass ratioOrdered By: Adriana Irene on 09-15-2024 Albumin/Globulin [Mass ratio] 1.5 {ratio} 0.9-2.4 [facility] Serum or plasma alkaline lissette sphatase measurementOrdered By: Adriana Irene on 09-15-2024 ALP [Catalytic activity/Vol] 79 U/L 35-104 [facility] Serum or plasma calcium erick urement (mass/volume)Ordered By: Adriana Irene on 09-15-2024 Calcium [Mass/Vol] 9.0 mg/dL 7.6-11.0 [facility] Serum or plasma estradiol me asurement after follitropin dose (mass/volume)Ordered By: Adriana Irene on 09-15-2024 E2 post dose follitropin [Mass/Vol] 107.0 pg/mL [facility] Comment on above: FEMALES ADULT FEMALE : [...] reached by age 20. Serum or plasma estrogen chris surement (mass/volume)Ordered By: Adriana Irene on 09-15-2024 Estrogen [Mass/Vol] 181 pg/mL . [facility] Comment on above: Prepubertal < 40 Fem mariaelena Cycle: 1-10 Days 16 - 328 11-20 Days 34 - 501 21-30 Days 48 - 350 Post-Menopausal 40 - 244 Serum or plasma free testost erone measurement (mass/volume)Ordered By: Adriana Irene on 09-15-2024 Testosterone Free [Mass/Vol] 0.13 ng/dL 0.10-0.85 [facility] Serum or plasma prolactin me asurement (mass/volume)Ordered By: Adriana Irene on 09-15-2024 Prolactin [Mass/Vol] 11.4 ng/mL 4.8-33.4 [place] Serum or plasma thyroperoxid ase antibody assay (units/volume)Ordered By: Adriana Irene on 09-15-2024 TPO Ab Qn 9 [IU]/mL 0-34 [facility] Comment on above: Performed at: - [address] [id number] Director: Dipesh Nagy PhD, Phone: [phone] at: - [facility] [address] [id number] Director: Dhaval Vazquez MD, Phone: [phone] Serum or plasma urea nitroge n measurement (mass/volume)Ordered By: Adriana Irene on 09-15-2024 Urea nitrogen [Mass/Vol] 7 mg/dL 4-19 [facility] Sodium levelOrdered By: Conor Irene on 09-15-2024 Sodium [Moles/Vol] 140 mmol/L 133-145 [facility] T4 Free Directon 09-15-2024 T4 FREE DIRECT 1.10 ng/dL Normal 0.76-1.46 [facility] Comment on above: Order Comment: N Performed By: #### L 3300.1750, L500.4050, L801.2600, L501.9520, L3100.5400, L3100.5310, L3100.5055, L3300.6900, L506.0400 ####[facility] [address] [place], [place], [address] T4 freeOrdered By: Adriana morin on 09-15-2024 Free T4 [Mass/Vol] 1.10 ng/dL 0.76-1.46 [facility] TSH DL <= 0.005 mIU/L QnOrde red By: Adriana Irene on 09-15-2024 TSH Qn 2.070 uIU/mL 0.300-4.200 [facility] Testosterone, totalOrdered B y: Adriana Irene on 09-15-2024 Testosterone [Mass/Vol] 7 ng/dL 4-50 [facility] Thyroid Stim Hormone (TSH)on 09-15-2024 TSH 2.070 uIU/mL Normal 0.300-4.200 [facility] Comment on above: Performed By: #### L 3300.1750, L500.4050, L801.2600, L501.9520, L3100.5400, L3100.5310, L3100.5055, L3300.6900, L506.0400 ####[facility] [address] [place], [place], [phone] Total proteinOrdered By: Nahun Irene on 09-15-2024 Protein [Mass/Vol] 6.9 g/dL 5.9-8.4 [facility] Gastroenterology Visit Repor ton 09-09-2024 Gastroenterology Visit Report [facility] [address] [place] [address] OFFICE VISIT Date of Service: 09/09/24 MR#: [id number] Acct: [id number] Name: CATHERINE BUI Rep #: [id number] : 1975 Provider: CRISTY Julio Age/Sex: 48/F Location: [facility] Status: Signed Intake Vital Signs [...] Linzess, sucralfate, ursodiol and vitamin E daily. [facility] Medical History Back pain Blood disorder Syncope [...] No specimens. (more content not included)... Normal [facility] Thyroidon 08-26-2024 Thyroid [facility] Imaging Services [address] [place], [place] [address] Thyroid MR#: [id number] Acct: [id number] Name: CATHERINE BUI Rep #: [id number] : 1975 F 48 From: Jerome martínez MD PCP: ALEXANDREA Armando Status: REG CLI Study: Thyroid Date of Exam: 08/26/24 Exam# [id number] Ordering Dr: Jose Suresh MD PROCEDURE: THYROID 08/26/2024 REASON FOR EXAM: FOLLOW UP Thyroid nodules. Prior resection of the left thyroid. TECHNIQUE: High-frequency thyroid ultrasound, including grayscale and color-flow images. REFERENCE LINKS: TI-RADS Chart: [email or web address] nt.nl/head-neck/ti-rads/ ti-rads TI-RADS Calculator Tool with Reference Images: https://Sensinode/ra diology-calculators/body -imaging/tirads-calculat or/ COMPARISON: Prior study dated [...] no more than 2 nodules. Reading Location: [facility] CC: ASSISTANT ASSOCIATE PROFESSOR-C Giancarlo Posadas; Dr. Jose Suresh MD Business Intelligence Etl Developer: Signed Normal [facility] Hips B/L min 2 views w/ Pelv trupti 08-12-2024 Hips B/L min 2 views w/ Pelvis [facility] Imaging Services [address] [place] [address] Hips B/L min 2 views w/ Pelvis MR#: [id number] Acct: [id number] Name: CATHERINE BUI ANN Rep #: [id number] : 1975 F 48 From: Deejay Flores i DO PCP: ALEXANDREA Armando Status: REG CLI Study: Hips B/L min 2 views w/ Pelvis Date of Exam: 0 08/12/24 Exam# [id number] Ordering Dr: Catherine Messer PROCEDURE: Pelvis and [...] hip joints. Reading Location: [facility] CC: ALEXANDREA Posadas; Catherine Messer Business Intelligence Etl Developer: Signed Normal [facility] Thoracic Spine 3 Viewson Thoracic Spine 3 Views [facility] Imaging Services [address] [place] [address] Thoracic Spine 3 Views MR#: [id number] Acct: [id number] Name: CATHERINE BUI ANN Rep #: [id number] : 1975 F 48 From: Deejay Flores i, DO PCP: ALEXANDREA Armando Status: REG CLI Study: Thoracic Spine 3 Views Date of Exam: 08/12/24 Exam# [id number] Ordering Dr: Catherine Messer PROCEDURE: Thoracic spine [...] Reading Location: [facility] CC: ALEXANDREA Posadas; Catherine Guerrerofield Business Intelligence Etl Developer: Signed Normal [facility] Bedside Glucoseon 07-26-2024 FINGERSTICK GLU 84 mg/dL Normal 74-106 [facility] Comment on above: Result Comment: GYPSY GEMENT OF PATIENT CARE PER NURSING PROTOCOL Performed By: #### L 501.080 ####[facility] [address] [place], [address] Fluor Guidance for Spine Inj on 07-26-2024 Fluor Guidance for Spine Inj [facility] Imaging Services [address] [place], [place] [address] Fluor Guidance for Spine Inj MR#: [id number] Acct: [id number] Name: CATHERINE BUI Rep #: [id number] : 1975 F 48 From: Wei Renee PCP: ALEXANDREA Armando Status: [facility] Study: Fluor Guidance for Spine Inj Date of Exam: 11/12 Exam# [id number] Ordering Dr: Primitivo Lockhart MD PROCEDURE: FLUOR GUIDANCE FOR SPINE INJ 07/26/2024 REASON FOR EXAM: BLOCK,CAUDAL TECHNIQUE: 2 fluoroscopic images were submitted. Fluoroscopy time was 6.7 seconds. Peak skin radiation dose was 2.6 mGy. COMPARISON: None FINDINGS: See impression RAD/Fluor Guidance for Spine Inj IMPRESSION: Fluoroscopic guidance provided during sacral injection. See operative report for further details. Reading Location: [facility] CC: ALEXANDREA Posadas; Dr. Primitivo Lockhart MD Business Intelligence Etl Developer: Signed Normal [facility] deOrdered By: Primitivo Lockhart on 07-26-2024 Bedside Glucose (Misc Panel) 84 mg/dL 74-106 [facility] Comment on above: MANAGEMENT OF PATIEN T CARE PER NURSING PROTOCOL Glucose [Mass/Vol] 84 mg/dL 74-106 [facility] Comment on above: MANAGEMENT OF PATIEN T CARE PER NURSING PROTOCOL MR/POSTOP.ANEon 07-26-2024 MR/POSTOP.[facility] Medical Records Department [address] [facility] [place] [address] Anesthesia Postop Eval I 07/26/24 1010 MR#: [id number] Acct: [id number] Name: CATHERINE BUI ANN Rep #: [id number] : 1975 48 From: Ruth Varghese PCP: ALEXANDREA Armando Status:REG SDC Y Race: C Location: [place] [address] Anesthesia: Postop Eval I Current Vital Signs Temperature: 98.4 F Pulse Rate: 66 Blood Pressure: 110/74 Respiratory Rate: 18 Pulse Ox: 97 Assessment Airway patent: Yes Spontaneous unlabored respirations: Yes nausea: No Vomiting: No Anesthesia Complication: No Fluid Hydration Crystalloid volume administer (ml): 10 Total IV fluid infused: 10 Progress Note Anesthesia document: Postop Eval 1 completed: Yes 07/26/24 1011 Date Ruth Jimenez Signature: Date CC: Signed Normal [facility] MR/[id number] 07-26-2024 /[facility] Medical Records Department [address] [facility] [place] [address] Anesthesia Postop Eval II 07/26/24 1034 MR#: [id number] Acct: [id number] Name: CATHERINE BUI ANN Rep #: [id number] : 1975 48 From: Rony Dixon MD PCP: ALEXANDREA Armando Status:REG SDC Y Race: C Location: [place] [address] Anesthesia Postop Eval I Sum Postop Eval Completion status Anesthesia document: Postop Eval 1 completed: Yes Anesthesia Postop Eval I Summary Anesthesia Postop Eval I Summary: Anesthesia Postop Eval I: Assessment Summary Airway patent Yes 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 Spontaneous unlabored Yes 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 respirations Mental status nausea No 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 Vomiting No 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 Anesthesia Postop Eval I: Fluid Summary Crystalloid volume administer 10 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 (ml) Colloids volume administered ( ml) Blood Product volume administered (ml) Total IV fluid infused 10 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 Anesthesia Postop Eval I: Summary Notes Anesthesia Complication No 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 Anesthesia Complication Comment: Post-operative progress note Anesthesia: Postop Eval II Evaluation Mental status: Awake Pain Level: 0 nausea: No Vomiting: No 07/26/24 1034 Date Rony Jimenez Signature: Date CC: Signed Normal [facility] Operative Reporton 5 Operative Report [facility] Medical Records Department [address] [place] [address] Operative Report 07/26/24 1002 MR#: [id number] Acct: [id number] Name: CATHERINE BUI Rep #: [id number] : 1975 48 From: Primitivo Lockhart MD PCP: ALEXANDREA Armando Status:[facility] Location: [place] [address] Operative Report (Standard) Operative Information Date of Procedure: 07/26/24 Pre-Operative Diagnosis: Lumbosacral radiculopathy, lumbosacral spinal stenosis, lumbosacral degenerative disc disease Post-Operative Diagnosis: Lumbosacral radiculopathy, lumbosacral spinal stenosis, lumbosacral degenerative disc disease Surgery/Procedure Performed: Diagnostic/therapeutic caudal epidural steroid injection under fluoroscopic guidance life scientist: No Type of Anesthesia: Local MAC RN [...] ALEXANDREA Posadas; Dr. Primitivo Lockhart MD Signed [facility] MR/PATTERRELLon 07-22-2024 MR/PAT.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 Hx Hospitalization No 07/22/24 09:40 Any Problems [...] take am of surgery PONV PONV - gauge 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: 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 - gauge 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 Female Yes 07/22/24 09:40 HX of Motion [...] 07/06/24 14:24 Respiratory Assessment Respiratory Assessment - gauge 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: Respiratory Tract Infection Hx - gauge 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 Hx Respiratory Tract Infection No 07/22/24 09:40 STOP Sleep Apnea STOP Sleep Apnea - gauge 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: STOP Sleep Apnea - gauge 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 Hx Hypertension Yes: CONTROLLED WITH MED 07/22/24 [...] 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: Tobacco Use History - gauge 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 Tobacco Use Smoking Status Never smoker 07/22/24 09:40 Hx Tobacco Use No 07/22/24 09:40 Years Smoking Packs Smoked per Day Smoking Cessation Date was within the last 15 years Hx Smoking Cessation Date Hx Smoking Cessation Counseling Hematologic Medial History Hematologic Hx - 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 Normal [facility] Oncology Visit Reporton 06-19 Oncology Visit Report [facility] [address] [place] [address] OFFICE VISIT Date of Service: 07/06/24 1421 MR#: [id number] Acct: [id number] Name: CATHERINE BUI ANN Rep #: [id number] : 1975 From: Stephane Melgar MD Age/Sex: 48/F [place] [facility] [place]: Signed HPI Subjective Date of Service 07/06/24 Chief Complaint F/u for MGUS. History of Present Illness 48y.o.woman was found to have abnormal serum protein and referred for further evaluation. Skeletal survey on 04/03/2023 was negative. Was found to have IgG Lambda M-protein 0.4g/dl. She is on observation. Had blood work and comes for follow up. She feels well. [facility] Medical History Blood disorder Syncope MGUS (monoclonal [...] 2.56 Sodium (more content not included)... Normal [facility] SALLY + Protein Elect, Serumon 06-25-2024 Albumin [Mass/Vol] 3.5 g/dL Normal 2.9-4.4 [facility] Comment on above: Order Comment: N Performed By: #### L 100.0100, L504.2610, L101.9900, L3130.0010, L3100.3425, L500.4050 #### [facility] [address] [place], [address] Albumin/Globulin [Mass ratio] 1.1 {ratio} Normal 0.7-1.7 [facility] Comment on above: Order Comment: N Performed By: #### L 100.0100, L504.2610, L101.9900, L3130.0010, L3100.3425, L500.4050 #### [facility] [address] [place], [address] DRFID-9-MTAT 0.3 g/dL Normal 0.0-0.4 [facility] Comment on above: Order Comment: N Performed By: #### L 100.0100, L504.2610, L101.9900, L3130.0010, L3100.3425, L500.4050 #### [facility] [address] [place], [address] NXGZM-7-MOJG 0.8 g/dL Normal 0.4-1.0 [facility] Comment on above: Order Comment: N Performed By: #### L 100.0100, L504.2610, L101.9900, L3130.0010, L3100.3425, L500.4050 #### [facility] [address] [place], [address] BETA GLOBULIN 1.0 g/dL Normal 0.7-1.3 [facility] Comment on above: Order Comment: N Performed By: #### L 100.0100, L504.2610, L101.9900, L3130.0010, L3100.3425, L500.4050 #### [facility] [address] [place], [address] GAMMA GLOBULIN 1.1 g/dL Normal 0.4-1.8 [facility] Comment on above: Order Comment: N Performed By: #### L 100.0100, L504.2610, L101.9900, L3130.0010, L3100.3425, L500.4050 #### [facility] [address] [place], [address] Globulin (S) [Mass/Vol] 3.3 g/dL Normal 2.2-3.9 [facility] Comment on above: Order Comment: N Performed By: #### L 100.0100, L504.2610, L101.9900, L3130.0010, L3100.3425, L500.4050 #### [facility] [address] [place], [address] SALLY RESULT,S Comment Abnormal . [facility] Comment on above: Order Comment: N Result Comment: Immu nofixation shows IgG monoclonal protein with lambda light chain specificity. Performed By: #### L 100.0100, L504.2610, L101.9900, L3130.0010, L3100.3425, L500.4050 #### [facility] [address] [place], [address] IMMUNOGLOB A QN 215 mg/dL Normal 87-352 [facility] Comment on above: Order Comment: N Performed By: #### L 100.0100, L504.2610, L101.9900, L3130.0010, L3100.3425, L500.4050 #### [facility] [address] [place], [address] IMMUNOGLOB G QN 1090 mg/dL Normal 586-1602 [facility] Comment on above: Order Comment: N Performed By: #### L 100.0100, L504.2610, L101.9900, L3130.0010, L3100.3425, L500.4050 #### [facility] [address] [place], [address] IMMUNOGLOB M QN 118 mg/dL Normal 26-217 [facility] Comment on above: Order Comment: N Performed By: #### L 100.0100, L504.2610, L101.9900, L3130.0010, L3100.3425, L500.4050 #### [facility] [address] [place], [address] M-Gurwinder 0.3 g/dL Abnormal Not Observed [facility] Comment on above: Order Comment: N Performed By: #### L 100.0100, L504.2610, L101.9900, L3130.0010, L3100.3425, L500.4050 #### [facility] [address] [place], [address] NOTE: Comment Normal . [facility] Comment on above: Order Comment: N Result Comment: Prot ein electrophoresis scan will follow via computer, mail, or cement and concrete plant worker delivery. Performed By: #### L 100.0100, L504.2610, L101.9900, L3130.0010, L3100.3425, L500.4050 #### [facility] [address] [place], [address] Protein [Mass/Vol] 6.8 g/dL Normal 6.0-8.5 [facility] Comment on above: Order Comment: N Performed By: #### L 100.0100, L504.2610, L101.9900, L3130.0010, L3100.3425, L500.4050 #### [facility] [address] [place], [address] [place] Lambda Light Chainson 06-25-2024 FR KAPPA LT CHN 15.5 mg/L Normal 3.3-19.4 [facility] Comment on above: Performed By: #### L 100.0100, L504.2610, L101.9900, L3130.0010, L3100.3425, L500.4050 #### [facility] [address] [place], [address] FR LAMBDA LT CH 18.3 mg/L Normal 5.7-26.3 [facility] Comment on above: Performed By: #### L 100.0100, L504.2610, L101.9900, L3130.0010, L3100.3425, L500.4050 #### [facility] [address] [place], [address] KAPPA/LAMBDA % 0.85 Normal 0.26-1.65 [facility] Comment on above: Result Comment: Perf ormed at: [facility] [address] [id number] Lead Cargoman: Dipesh Nagy PhD, Phone: [phone] Performed By: #### L 100.0100, L504.2610, L101.9900, L3130.0010, L3100.3425, L500.4050 #### [facility] [address] [place], [address] CBC W/Diff, Automatedon 03-0 4-2024 Absolute Lymph 3.63 X10 3/uL Normal 0.83-4.51 [facility] Comment on above: Performed By: #### L 100.0100, L504.2610, L101.9900, L3130.0010, L3100.3425, L500.4050 #### [facility] [address] [place], [address] Absolute Neut 4.5 X10 3/uL Normal 2.0-7.7 [facility] Comment on above: Performed By: #### L 100.0100, L504.2610, L101.9900, L3130.0010, L3100.3425, L500.4050 #### [facility] [address] [place], [address] Basophils/100 WBC (Bld) 1.3 % High 0-1 [facility] Comment on above: Performed By: #### L 100.0100, L504.2610, L101.9900, L3130.0010, L3100.3425, L500.4050 #### [facility] [address] [place], [address] Eosinophils/100 WBC (Bld) 1.3 % Normal 0-5 [facility] Comment on above: Performed By: #### L 100.0100, L504.2610, L101.9900, L3130.0010, L3100.3425, L500.4050 #### [facility] [address] [place], [address] Erythrocyte distribution width (RBC) [Ratio] 12.2 % Normal 11.6-14.6 [facility] Comment on above: Performed By: #### L 100.0100, L504.2610, L101.9900, L3130.0010, L3100.3425, L500.4050 #### [facility] [address] [place], [address] Hematocrit (Bld) [Volume fraction] 43.0 % Normal 37-47 [facility] Comment on above: Performed By: #### L 100.0100, L504.2610, L101.9900, L3130.0010, L3100.3425, L500.4050 #### [facility] [address] [place], [address] Hemoglobin (Bld) [Mass/Vol] 14.5 g/dL Normal 12.0-15.0 [facility] Comment on above: Performed By: #### L 100.0100, L504.2610, L101.9900, L3130.0010, L3100.3425, L500.4050 #### [facility] [address] [place], [address] IG% 1.400 High 0.0-0.9 [facility] Comment on above: Result Comment: IG% - Immature Granulocytes (promyelocytes, myelocytes and metamyelocytes) > 1% indicates that a LEFT SHIFT is Present. Performed By: #### L 100.0100, L504.2610, L101.9900, L3130.0010, L3100.3425, L500.4050 #### [facility] [address] [place], [address] Lymphocytes/100 WBC (Bld) 40.3 % Normal 19-41 [facility] Comment on above: Performed By: #### L 100.0100, L504.2610, L101.9900, L3130.0010, L3100.3425, L500.4050 #### [facility] [address] [place], [address] MCH (RBC) [Entitic mass] 30.1 pg Normal 27.0-32.0 [facility] Comment on above: Performed By: #### L 100.0100, L504.2610, L101.9900, L3130.0010, L3100.3425, L500.4050 #### [facility] [address] [place], [address] MCHC (RBC) [Mass/Vol] 33.7 g/dL Normal 32-36 [facility] Comment on above: Performed By: #### L 100.0100, L504.2610, L101.9900, L3130.0010, L3100.3425, L500.4050 #### [facility] [address] [place], [address] MCV (RBC) [Entitic vol] 89.2 fL Normal 81-99 [facility] Comment on above: Performed By: #### L 100.0100, L504.2610, L101.9900, L3130.0010, L3100.3425, L500.4050 #### [facility] [address] [place], [address] Monocytes/100 WBC (Bld) 6.0 % Normal 0-10 [facility] Comment on above: Performed By: #### L 100.0100, L504.2610, L101.9900, L3130.0010, L3100.3425, L500.4050 #### [facility] [address] [place], [address] Neutrophils/100 WBC (Bld) 49.7 % Normal 47-70 [facility] Comment on above: Performed By: #### L 100.0100, L504.2610, L101.9900, L3130.0010, L3100.3425, L500.4050 #### [facility] [address] [place], [address] Nucleated RBC (Bld) [#/Vol] 0 10*3/uL Normal 0-5 [facility] Comment on above: Performed By: #### L 100.0100, L504.2610, L101.9900, L3130.0010, L3100.3425, L500.4050 #### [facility] [address] [place], [address] Platelet mean volume (Bld) [Entitic vol] 10.3 fL Normal 6.2-12.0 [facility] Comment on above: Performed By: #### L 100.0100, L504.2610, L101.9900, L3130.0010, L3100.3425, L500.4050 #### [facility] [address] [place], [address] Platelets (Bld) [#/Vol] 337 10*3/uL Normal 150-450 [facility] Comment on above: Performed By: #### L 100.0100, L504.2610, L101.9900, L3130.0010, L3100.3425, L500.4050 #### [facility] [address] [place], [address] RBC (Bld) [#/Vol] 4.82 10*6/uL Normal 4.2-5.4 [facility] Comment on above: Performed By: #### L 100.0100, L504.2610, L101.9900, L3130.0010, L3100.3425, L500.4050 #### [facility] [address] [place], [address] RDW SD 40.2 fl Normal 35.1-43.9 [facility] Comment on above: Performed By: #### L 100.0100, L504.2610, L101.9900, L3130.0010, L3100.3425, L500.4050 #### [facility] [address] [place], [address] WBC (Bld) [#/Vol] 9.0 10*3/uL Normal 4.4-11.0 [facility] Comment on above: Performed By: #### L 100.0100, L504.2610, L101.9900, L3130.0010, L3100.3425, L500.4050 #### [facility] [address] [place], [address] Comprehensive Metabolic Prof [facility] 06-22-2024 Albumin [Mass/Vol] 4.3 g/dL Normal 3.5-5.0 [facility] Comment on above: Performed By: #### L 100.0100, L504.2610, L101.9900, L3130.0010, L3100.3425, L500.4050 #### [facility] [address] [place], [address] Albumin/Globulin [Mass ratio] 1.4 {ratio} Normal 0.9-2.4 [facility] Comment on above: Performed By: #### L 100.0100, L504.2610, L101.9900, L3130.0010, L3100.3425, L500.4050 #### [facility] [address] [place], [address] ALK PHOS 76 U/L Normal 35-104 [facility] Comment on above: Performed By: #### L 100.0100, L504.2610, L101.9900, L3130.0010, L3100.3425, L500.4050 #### [facility] [address] [place], [address] ALT [Catalytic activity/Vol] 14 U/L Normal <=34 [facility] Comment on above: Performed By: #### L 100.0100, L504.2610, L101.9900, L3130.0010, L3100.3425, L500.4050 #### [facility] [address] [place], [address] AST [Catalytic activity/Vol] 19 U/L Normal <=31 [facility] Comment on above: Performed By: #### L 100.0100, L504.2610, L101.9900, L3130.0010, L3100.3425, L500.4050 #### [facility] [address] [place], [address] Bilirubin [Mass/Vol] 0.37 mg/dL Normal 0.00-1.30 [place] Comment on above: Performed By: #### L 100.0100, L504.2610, L101.9900, L3130.0010, L3100.3425, L500.4050 #### [facility] [address] [place], [address] BUN/CRE 9.1 RATIO Low 10-20 [facility] Comment on above: Performed By: #### L 100.0100, L504.2610, L101.9900, L3130.0010, L3100.3425, L500.4050 #### [facility] [address] [place], [address] Calcium [Mass/Vol] 9.4 mg/dL Normal 7.6-11.0 [facility] Comment on above: Performed By: #### L 100.0100, L504.2610, L101.9900, L3130.0010, L3100.3425, L500.4050 #### [facility] [address] [place], [address] Chloride [Moles/Vol] 103 mmol/L Normal 98-108 [place] Comment on above: Performed By: #### L 100.0100, L504.2610, L101.9900, L3130.0010, L3100.3425, L500.4050 #### [facility] [address] [place], [address] CO2 [Moles/Vol] 24.0 mmol/L Normal 21.0-32.0 [facility] Comment on above: Performed By: #### L 100.0100, L504.2610, L101.9900, L3130.0010, L3100.3425, L500.4050 #### [facility] [address] [place], [address] Creatinine [Mass/Vol] 0.59 mg/dL Low 0.70-1.20 [facility] Comment on above: Performed By: #### L 100.0100, L504.2610, L101.9900, L3130.0010, L3100.3425, L500.4050 #### [facility] [address] [place], [address] ECRCL 133.74 ml/min Normal 50-250 [facility] Comment on above: Performed By: #### L 100.0100, L504.2610, L101.9900, L3130.0010, L3100.3425, L500.4050 #### [facility] [address] [place], [address] GAP 12 Normal 5-15 [facility] Comment on above: Performed By: #### L 100.0100, L504.2610, L101.9900, L3130.0010, L3100.3425, L500.4050 #### [facility] [address] [place], [address] GFR/1.73 sq M.predicted among non-blacks MDRD (S/P/Bld) [Vol rate/Area] 112 mL/min/{1.73_m2} Normal >60 [facility] Comment on above: Result Comment: mL/m in/1.73m2 CKD-EPI Creatinine Equation (2020) Performed By: #### L 100.0100, L504.2610, L101.9900, L3130.0010, L3100.3425, L500.4050 #### [facility] [address] [place], [address] Globulin (S) [Mass/Vol] 3.0 g/dL Normal 2.2-4.2 [facility] Comment on above: Performed By: #### L 100.0100, L504.2610, L101.9900, L3130.0010, L3100.3425, L500.4050 #### [facility] [address] [place], [address] Glucose [Mass/Vol] 85 mg/dL Normal 70-99 [facility] Comment on above: Performed By: #### L 100.0100, L504.2610, L101.9900, L3130.0010, L3100.3425, L500.4050 #### [facility] [address] [place], [address] Potassium [Moles/Vol] 4.0 mmol/L Normal 3.3-5.1 [facility] Comment on above: Performed By: #### L 100.0100, L504.2610, L101.9900, L3130.0010, L3100.3425, L500.4050 #### [facility] [address] [place], [address] Sodium [Moles/Vol] 139 mmol/L Normal 133-145 [facility] Comment on above: Performed By: #### L 100.0100, L504.2610, L101.9900, L3130.0010, L3100.3425, L500.4050 #### [facility] [address] [place], [address] T PROT 7.2 g/dL Normal 5.9-8.4 [facility] Comment on above: Performed By: #### L 100.0100, L504.2610, L101.9900, L3130.0010, L3100.3425, L500.4050 #### [facility] [address] [place], [address] Urea nitrogen [Mass/Vol] 5 mg/dL Normal 4-19 [facility] Comment on above: Performed By: #### L 100.0100, L504.2610, L101.9900, L3130.0010, L3100.3425, L500.4050 #### [facility] [address] [place], [address] Erythrocyte Sed Rateon 06-22 SED RATE 11 mm/hr Normal 0-30 [facility] Comment on above: Performed By: #### L 100.0100, L504.2610, L101.9900, L3130.0010, L3100.3425, L500.4050 #### [facility] [address] [place], [address] Erythrocyte sedimentation ra teOrdered By: Stephane Melgar on 06-22-2024 ESR (Bld) [Velocity] 11 mm/h 0-30 [place] LDHon 06-22-2024 LDH 158 U/L Normal 84-246 [facility] Comment on above: Order Comment: 1 Performed By: #### L 100.0100, L504.2610, L101.9900, L3130.0010, L3100.3425, L500.4050 #### [facility] [address] [place], [address] CORTISOL SERUMon 06-09-2024 CORTISOL 5.80 ug/dL Normal 3.44-22.45 [facility] Comment on above: Result Comment: Adul t (AM) 5.27 - 22.45 ug/dL Adult (PM) 3.44 - 16.76 ug/dL Performed By: #### L 509.6000 ####[facility] [address] [place], [address] Cortisol [Mass/Vol]Ordered B y: Giancarlo Posadas on 06-09-2024 Cortisol 5.80 ug/dL 3.44-22.45 [facility] Comment on above: Adult (AM) 5.27 - 22 .45 ug/dL Adult (PM) 3.44 - 16.76 ug/dL Serum or plasma cortisol chris surement (mass/volume)Ordered By: Giancarlo Posadas on 06-09-2024 Cortisol [Mass/Vol] 5.80 ug/dL 3.44-22.45 [facility] Comment on above: Adult (AM) 5.27 - 22 .45 ug/dL Adult (PM) 3.44 - 16.76 ug/dL EGD Reporton 05-19-2024 EGD Report [facility] Medical Records Department [address] [place] [address] EGD Report MR#: [id number] Acct: [id number] Name: CATHERINE BUI ANN Rep #: [id number] : 1975 48 From: Ramez Villatoro DO PCP: ALEXANDREA Armando Status:REG [facility] Patient Name: Catherine Bui Procedure Date: 05/19/2024 7:52 AM Date of : 1975 Age: 48 Procedure: Upper GI endoscopy Indications: Epigastric abdominal pain, Functional Dyspepsia, Dyspepsia, Indigestion Providers: Ramez Villatoro DO Referring MD: Giancarlo Posadas c, Security Shift Supervisor-c Medicines: Monitored Anesthesia Care Patient Profile: This [...] mucosa and inflammation. This was traversed. The jdgwd-ru-wkmogoo limb was characterized by healthy appearing mucosa. The jejunojejunal anastomosis was characterized by healthy appearing mucosa. The zdknjamt-uq-rcwmthh limb was not examined as it could [...] pathology results. Procedure Code(s): --- Professional --- 09118, Esophagogastroduodenosco py, flexible, transoral; with biopsy, single or multiple CPT copyright 2021 [employer]. All rights reserved. The codes documented in this report are preliminary and upon donor relations associate review may be revised to meet current compliance requirements. Ramez Villatoro DO 05/19/2024 8:14:19 AM This report has been signed electronically. Number of Addenda: 0 Note Initiated On: 05/19/2024 7:52 AM 05/19/2414 Date Ramez Villatoro DO Cosigner Signature: Date (if indicated) CC: ASSISTANT ASSOCIATE PROFESSOR-C Giancarlo Posadas; Ramez Villatoro DO Date Dictated: 05/19/24 0752 Date Transcribed: Business Intelligence Etl Developer: SONY Signed [facility] MR/POSTOP.Antwan 05-19-2024 MR/POSTOP.[facility] Medical Records Department [address] [place] [address] Anesthesia Postop Eval I 05/19/24812 MR#: [id number] Acct: [id number] Name: CATHERINE BUI Rep #: [id number] : 1975 48 From: Daniel Flores PCP: ALEXANDREA Armando Status:REG [facility]C Y Race: C Location: [place] [address] Anesthesia: Postop Eval I Current Vital Signs [...] Anesthesia document: Postop Eval 1 completed: Yes 05/19/24 0813 Date Daniel Saeedignalejandrina Signature: Date CC: Signed Normal [facility] MR/[id number] 05-19-2024 [facility] Medical Records Department [address] [place] [address] Anesthesia Postop Eval II 05/19/24 0837 MR#: [id number] Acct: [id number] Name: CATHERINE BUI ANN Rep #: [id number] : 1975 48 From: Sergei Prakash MD PCP: ALEXANDREA Armando Status:REG [facility] Y Race: C Location: [place] [address] Anesthesia Postop Eval I Sum Postop Eval [...] No Vomiting: No Complications Anesthesia Complication: No 05/19/24 0837 Date Sergei Jimenez Signature: Date CC: Signed Normal [facility] Surgery Specimen Level Kathy 05-19-2024 Surgery Specimen Level IV Patient Age/Sex Location Account Attending Physician CATHERINE BUI 48/F EN [id number] Ramez Villatoro DO Specimen: [id number] Received: 05/19/24 Status: RAY Gordon Num: [id number] Spec Type: EGD BIOPSY Subm Dr: Ramez Villatoro DO HEADER OPERATION: EGD biopsy PRE-OP DIAGNOSIS: GI bleed TISSUE SUBMITTED: Anastomosis biopsy MICROSCOPIC DIAGNOSIS Anastomosis, biopsy: Fragments of gastric and small intestinal mucosa with mild chronic inflammation, congestion and hemorrhage. See comment. DINO. 05/20/2024 COMMENT Immunohistochemistry for H.pylori can be performed if clinically indicated. Please notify the laboratory if it is needed. MICROSCOPIC DESCRIPTION Slides are reviewed. GROSS DESCRIPTION Received in fixative is one container labeled with the patient's name and designated Anastomosis biopsy. The specimen consists of multiple irregular fragments of light quesada soft tissue that in aggregate measure 1.6 x 0.4 x 0.3 cm. The specimen is totally submitted in one cassette. 05/19/2024 TC:3 [facility]:[id number] Patient Age/Sex Location Account Attending Physician CATHERINE BUI 48/F EN [id number] Ramez Friend, DO Signed (signature on file) Dr. Maurice You MD 05/20/24 1155 Normal [facility] Comment on above: Performed By: #### L 100.0100, L504.2610, L101.9900, L3130.0010, L3100.3425, L500.4050 #### [facility] Laboratory [address] [place] [place], [address] MR/PATParish 05-18-2024 /PAT.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 - gauge 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 Female Yes 05/18/24 11:20 HX of Motion [...] 12/30/23 15:51 Respiratory Assessment Respiratory Assessment - gauge 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: Respiratory Tract Infection Hx - gauge 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 Hx Respiratory Tract Infection No 05/18/24 11:20 STOP Sleep Apnea STOP Sleep Apnea - gauge 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: STOP Sleep Apnea - gauge 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 Hx Hypertension Yes: CONTROLLED WITH MED 05/18/24 [...] 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: Tobacco Use History - gauge 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 Tobacco Use Smoking Status Never smoker 05/18/24 11:20 Hx Tobacco Use No 05/18/24 11:20 Years Smoking Packs Smoked per Day Smoking Cessation Date was within the last 15 years Hx Smoking Cessation Date Hx Smoking Cessation Counseling Hematologic Medial History Hematologic Hx - gauge 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 Normal [facility] Orthopedic Visit Reporton Orthopedic Visit Report [facility] [address] [place] [address] OFFICE VISIT Date of Service: 04/09/24 MR#: [id number] Acct: [id number] Name: CATHERINE BUI Rep #: [id number] : 1975 Provider: Dr. Joaquin Boyce MD [...] by me, Dr. Joaquin Boyce MD 04/09/24 5903. Part of today???s visit was documented by [...] had injection (more content not included)... Normal [facility] SCRN MAMM (CAD)W/ILYA BILATo n 03-25-2024 SCRN MAMM (CAD)W/ILYA BILAT [facility] Imaging Services [address] [place] [address] SCRN MAMM (CAD)W/ILYA BILAT MR#: [id number] Acct: [id number] Name: CATHERINE BUI ANN Rep #: [id number] : 1975 F 48 From: Jerome martínez MD PCP: ALEXANDREA Armando Status: [facility] Study: SCRN MAMM (CAD)W/ILYA BILAT Date of Exam: 09/11 Exam# [id number] Ordering Dr: Giancarlo Posadas 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 Routine annual screening examination. PERTINENT HISTORY: Grandmother with breast cancer. TECHNIQUE: Digital bilateral breast ilya (3D mammographic acquisition) in the CC and [...] change since the prior study. BI/SCRN MAMM (CAD)W/ILYA BILAT IMPRESSION: Stable bilateral screening mammogram. Yearly follow-up mammogram recommended. (A) ASSESSMENT CATEGORY: BIRADS Category 2: Benign. A letter regarding these results will be sent to the patient by the facility within 30 days. Approximately 10% of breast cancers are not detected by mammography. A normal mammogram should not delay biopsy of a clinically suspicious abnormality. [id number] Electronically Signed: Jeorme Alicea MD at 12:21 EST Reading Location ID and State: [address] [place] [address] , Service support , CC: ALEXANDREA Posadas Business Intelligence Etl Developer: Signed Normal [facility] Spine Lumbar (Routine)on Spine Lumbar (Routine) [facility] Imaging Services [address] [place] [address] [id number] Spine Lumbar (Routine) MR#: [id number] Acct: [id number] Name: CATHERINE BUI ANN Rep #: [id number] : 1975 F 48 From: Mitesh Quintana MD PCP: ALEXANDREA Armando Status: [facility] Study: Spine Lumbar (Routine) Date of Exam: 03/22/24 Exam# [id number] Ordering Dr: Karina Seymour [id number] STUDY: MRI LUMBAR SPINE WITHOUT CONTRAST REASON [...] EST , CC: ALEXANDREA Posadas; CRISTY Sun Business Intelligence Etl Developer: Signed Normal [facility] Gastroenterology Visit Repor ton 03-17-2024 Gastroenterology Visit Report [facility] [address] [place] [address] OFFICE VISIT Date of Service: 03/17/24 MR#: [id number] Acct: [id number] Name: CATHERINE BUI Rep #: [id number] : 1975 Provider: CRISTY Julio Age/Sex: 48/F Location: [facility] Status: Signed Intake Vital Signs 07/01/23 15:38 [...] semaglutide, ursodiol, pantoprazole, sucralfate, and Linzess daily. 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 *[facility] hospitalization 10.29.22-11.01.22 with syncope/fall and BRBPR [...] with buspirone, linzess, pantoprazole, and sucralfate. OV 11.24 Pt reports alternating bm with constipation and [...] difficulty swallow (more content not included)... Normal [facility] Re-Evaluation - PT (1)on Re-Evaluation - PT (1) [facility] Physical Therapy [facility] [place] [address] / REEVALUATION / MEDICARE RECERTIFICATION PHYSICAL THERAPY MR#: [id number] Acct: [id number] Name: CATHERINE BUI Rep #: [id number] : 1975 48 From: Carter Benton DPT Referring Dr.: CRISTY Sun Status:REG RCR Insurance: [employer]/[facility] SELF PAY INSURANCE Re-Evaluation Intro: CRISTY [...] do not hesitate to contact me at [phone] by phone or if you have questions or concerns regarding this new plan of care! Sincerely, Carter Benton DPT 03/16/24 0813 CC: ALEXANDREA Posadas; CRISTY Sun CLS Signed For Medicare only, by signing this I certify the plan of care. ____ Physicians Signature Date Normal [facility] Inital Evaluation (1) - PTon 03-01-2024 Inital Evaluation (1) - PT [facility] Physical [place] [facility] [id number] [place] [address] / REHABILITATION SERVICES INITIAL EVALUATION MR#: [id number] Acct: [id number] Name: CATHERINE BUI Rep #: [id number] : 1975 48 From: Carter Benton DPT Referring Dr.: CRISTY Sun Status: REG RCR Insurance: [employer]/[facility] SELF PAY INSURANCE Patient's Visit Information [...] has to stand a lot at work, [facility] surgery. Pt. reports no R leg [...] Response: No effect Lumbar Standing: Right Side Deep Gap - Symptoms During Testing: No effect Lumbar Standing: Right Side Deep Gap - Symptoms After Testing: No effect Lumbar Standing: Left Side Deep Gap - Mechanical Response: No effect Lumbar Standing: Left Side Deep Gap - Symptoms During Testing: No effect Lumbar Standing: Left Side Deep Gap - Symptoms After Testing: No effect Lumbar [...] and Benef (more content not included)... Normal [facility] L/S Spine Bending Flex/Swink 02-23-2024 L/S Spine Bending Flex/Ext [facility] Imaging Services [address] [place], [place] [address] L/S Spine Bending Flex/Ext MR#: [id number] Acct: [id number] Name: CATHERINE BUI ANN Rep #: [id number] : 1975 F 48 From: Mitesh Quintana MD PCP: ALEXANDREA Armando Status: REG CLI Study: L/S Spine Bending Flex/Ext Date of Exam: 02/22 Exam# [id number] Ordering Dr: Karina Seymour [id number] STUDY: X-RAY - LUMBAR SPINE REASON FOR [...] EST , CC: ALEXANDREA Posadas; CRISTY Sun Business Intelligence Etl Developer: Signed Normal [facility] Orthopedic Visit Reporton Orthopedic Visit Report [facility] [address] [place] [address] OFFICE VISIT Date of Service: 02/19/24 MR#: [id number] Acct: [id number] Name: AIRAMALBERTOCATHERINE Rep #: [id number] : 1975 Provider: CRISTY Sun Age/Sex: 48/F Location: [facility].NURIS Status: Signed Intake Vital Signs [...] the decisions made by , CRISTY 02/19/24 4265. Part of today???s visit was documented by [...] Biofreeze. Patient does see a Chiropractor in [place]. Patient states she can feels bumps down [...] relief. Di (more content not included)... Normal [facility] Albumin Elph [Mass/Vol]Order ed By: Stephane Melgar on 07-07-2023 Albumin [Mass/Vol] 4.0 g/dL 2.9-4.4 [facility] Atypical P-ANCA titerOrdered By: Ramez Villatoro on 07-07-2023 Neutrophil cytoplasmic Ab.perinuclear.atypical IF (S) [Titer] <1:20 titer Neg:<1:20 [facility] Comment on above: The atypical pANCA p attern has been observed in asignificant percentage of patients with ulcerative colitis,primary sclerosing cholangitis and autoimmune hepatitis. Basophil percentageOrdered B y: Ramez Friend on 07-07-2023 Ammonia (P) [Moles/Vol] 25.0 umol/L 11-32 [facility] Bilirubin [Mass/Vol] 0.30 mg/dL 0.20-1.00 [place] Comment on above: For patients on eltr ombopag therapy, use of Dimension [place] TBIL is not recommended. Chloride [Moles/Vol] 109 mmol/L 98-107 [place] Cholesterol [Mass/Vol] 149 mg/dL <200 [facility] Comment on above: <200 mg/dL Desirable 200-240 mg/dL Borderline >240 mg/dL High Risk Glucose [Mass/Vol] 106 mg/dL 74-106 [facility] Comment on above: Fasting Glucose resu lt from 100 to 125 mg/dL suggests IMPAIRED HOMEOSTASIS per A.D.A. criteria. LDH [Catalytic activity/Vol] 227 U/L 84-246 [facility] Potassium [Moles/Vol] 3.8 mmol/L 3.5-5.1 [facility] Protein [Mass/Vol] 7.3 g/dL 6.4-8.2 [facility] Sodium [Moles/Vol] 139 mmol/L 136-145 [facility] Triglyceride [Mass/Vol] 88 mg/dL <199 [facility] Comment on above: The drugs N-Acetylcy steine and Metamizole may falsely depress this assay.Serum Triglycerides Reference Interval Normal <150 mg/dL Borderline high 150 - 199 mg/dL High 200 - 499 mg/dL Very High > or = 500 mg/dL Erythrocyte sedimentation ra teOrdered By: Ramez Friend on 07-07-2023 ESR (Bld) [Velocity] 7 mm/h 0-30 [place] HIV 1 and HIV-2 antibody ass ay with HIV-1 p24 antigen detectionOrdered By: Ramez Friend on 07-07-2023 HIV 1+2 Ab+HIV1 p24 Ag IA Ql Non-Reactive Nonreactive [facility] Interpretation of serum or p lasma protein pattern by immunofixation (narrative resultOrdered By: Stephane Ramón on 07-07-2023 Protein Fractions Immunofixation Vinny [Interp] Comment: g/dL Not Observed [facility] Comment on above: Due to the small hina ntity of monoclonal protein, unable toquantitate the M-spike. Laboratory - Chemistry and C hemistry - challengeOrdered By: Ramez Villatoro on 07-07-2023 Albumin/Globulin [Mass ratio] 1.1 {ratio} 0.9-2.4 [facility] ALP [Catalytic activity/Vol] 70 U/L 45-117 [facility] ALT [Catalytic activity/Vol] 25 U/L 13-56 [facility] Cholesterol in HDL [Mass/Vol] 57 mg/dL >40 [facility] Comment on above: The drugs N-Acetylcy steine and Metamizole may falsely depress this assay. Reference Range HDL <40 mg/dL Low HDL Cholesterol HDL >or= 60 mg/dL High HDL Cholesterol Cholesterol in LDL [Mass/Vol] 74 mg/dL 0-130 [facility] CO2 [Moles/Vol] 24.0 mmol/L 21.0-32.0 [facility] Ferritin [Mass/Vol] 145 ng/mL 8-252 [facility] Globulin (S) [Mass/Vol] 3.5 g/dL 2.2-4.2 [facility] Transferrin [Mass/Vol] 226 mg/dL 192-364 [facility] Comment on above: Performed at: CB - [facility] [employer] [address] [id number] Director: Dipesh Nagy PhD, Phone: [phone] at: BN - [facility] [address] [id number] Director: Dhaval Vazquez MD, Phone: [phone] Urea nitrogen/Creatinine [Mass ratio] 14.2 mg/mg 10-20 [facility] Laboratory - CoagulationOrde red By: Ramez Villatoro on 07-07-2023 INR Coag (Bld) [Relative time] 1.0 {INR} [facility] PT Coag (PPP) [Time] 13.3 s 11.7-14.9 [place] No Panel InformationOrdered By: Ramez Villatoro on 07-07-2023 C-Reactive Protein Extended Range < 2.90 mg/L 0.0-3.0 [facility] Comment on above: C-Reactive Protein ( CRP) provides useful information for thediagnosis, therapy and monitoring of inflammatory processesand associated diseases. For the evaluation of Relative Riskfor Cardiovascular Disease, a High Sensitivity CRP (HSCRP)should be ordered. [facility] B Antibody <0.2 AI 0.0-0.9 [facility] Ceruloplasmin 24.9 mg/dL 19.0-39.0 [facility] Estimated GFR (MDRD) Amer 116 mL/min >60 [facility] Comment on above: GFR Calc Estimated GFR (MDRD) Non-Af Amer 95 mL/min >60 [facility] Comment on above: Non- GFR Calc Haptoglobin 27 mg/dL 42-296 [facility] Hepatitis A IgM Antibody Negative Negative [facility] Hepatitis B Core IgM Antibody Negative Negative [facility] Hepatitis C Antibody (EIA) Non-Reactive Non Reactive [facility] Hepatitis C Antibody Comment Comment . [facility] Comment on above: Not infected with HC V unless early or acute infection issuspected (which may be delayed in an immunocompromisedindividual), or other evidence exists to indicate HCVinfection. SALIMA-1 Antibody <0.2 AI 0.0-0.9 [facility] STONE CRUSHER OPERATOR Antibody <0.2 AI 0.0-0.9 [facility] SM Antibody <0.2 AI 0.0-0.9 [facility] SS-A/Ro IgG Antibody < 0.2 AI 0.0-0.9 [place] SS-B/La IgG Antibody < 0.2 AI 0.0-0.9 [place] Total Iron Binding Capacity 297 ug/dL 250-450 [facility] Tumor Marker Alpha Fetoprotein 7.7 ng/mL 0.0-6.4 [facility] Comment on above: [facility] [employer] El ectrochemiluminescence Immunoassay(ECLIA)Values obtained with different assay methods or kits cannotbe used interchangeably. Results cannot be interpreted asabsolute evidence of the presence or absence of malignantdisease.This test is not interpretable in females. VLDL Cholesterol 18 mg/dL 5-40 [facility] No Panel InformationOrdered By: Stephane Melgar on 07-07-2023 Addendum Document Comment . 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 Free Lambda Light Chains, Quant 18.9 mg/L 5.7-26.3 [facility] Immunoglobulin M 106 mg/dL 26-217 [facility] Serum DNA double strand anti body assay (units/volume)Ordered By: Ramez Villatoro on 07-07-2023 DNA double strand Ab Qn (S) [IU]/mL 0-9 [facility] Comment on above: Negative <5 Equivoca l 5 - 9 Positive >9 Serum Scl-70 antibody assay (units/volume)Ordered By: Ramez Villatoro on 07-07-2023 SCL-70 extractable nuclear Ab Qn (S) <0.2 AI 0.0-0.9 [facility] Serum uatvu-6-qicivzhm measu rement by electrophoresisOrdered By: Stephane Melgar on 07-07-2023 Alpha 1 globulin Elph [Mass/Vol] 0.2 g/dL 0.0-0.4 [facility] Alpha 1 globulin Elph [Mass/Vol] 0.6 g/dL 0.4-1.0 [facility] Serum classic neutrophil cyt oplasmic antibody assay (units/volume)Ordered By: Raemz Villatoro on 07-07-2023 Neutrophil cytoplasmic Ab.classic Qn (S) <1:20 titer Neg:<1:20 [facility] Serum immunoglobulin kappa l ight chains/immunoglobulin lambda light chains mass ratioOrdered By: Stephane Melgar on 07-07-2023 Immunoglobulin light chains.kappa/Immunoglobu beka light chains.lambda (S) [Mass ratio] 0.93 0.26-1.65 [facility] Comment on above: Performed at: [address] [id number] Director: Dipesh Nagy PhD, Phone: [phone] Serum mitochondria antibody detectionOrdered By: Ramez Villatoro on 07-07-2023 Mitochondria Ab Ql (S) <20.0 Units 0.0-20.0 [facility] Comment on above: Negative 0.0 - 20.0 Equivocal 20.1 - 24.9 Positive >24.9Mitochondrial (M2) Antibodies are found in 90-96% ofpatients with primary biliary cirrhosis.Performed at: [facility] [address] [id number] Director: Dipesh Nagy PhD, Phone: [phone] Serum or plasma IgA measurem ent (mass/volume)Ordered By: Stephane Melgar on 07-07-2023 IgA [Mass/Vol] 202 mg/dL 87-352 [facility] Serum or plasma IgG measurem ent (mass/volume)Ordered By: Stephane Melgar on 07-07-2023 IgG [Mass/Vol] 1080 mg/dL 586-1602 [facility] Serum or plasma actin IgG an tibody assay (units/volume)Ordered By: Ramez Villatoro on 07-07-2023 Actin IgG Qn 15 Units 0-19 [facility] Comment on above: Negative 0 - 19 Weak positive 20 - 30 Moderate to strong positive >30 Actin Antibodies are found in 52-85% of patients with autoimmune hepatitis or chronic active hepatitis and in 22% of patients with primary biliary cirrhosis. Serum or plasma angiotensin converting enzyme measurement (enzymatic activity/volume)Ordered By: Ramez Villatoro on 07-07-2023 Angiotensin converting enzyme [Catalytic activity/Vol] 49 U/L 14-82 [facility] Serum or plasma beta globuli n measurement by electrophoresis (mass/volume)Ordered By: Stephane Melgar on 07-07-2023 Beta globulin Elph [Mass/Vol] 1.1 g/dL 0.7-1.3 [facility] Serum or plasma calcium erick urement (mass/volume)Ordered By: Ramez Villatoro on 07-07-2023 Calcium [Mass/Vol] 8.5 mg/dL 8.5-10.1 [facility] Serum or plasma creatinine m easurement (mass/volume)Ordered By: Ramez Villatoro on 07-07-2023 Creatinine [Mass/Vol] 0.70 mg/dL 0.55-1.02 [facility] Comment on above: The validity of the calculated GFR & GFRAA in patients over 70 years has not been determined. Clinical correlation is essential. Serum or plasma gamma globul in measurement by electrophoresis (mass/volume)Ordered By: Stephane Melgar on 07-07-2023 Gamma globulin Elph [Mass/Vol] 1.1 g/dL 0.4-1.8 [facility] Serum or plasma hepatitis B virus surface antigen detection by immunoassayOrdered By: Ramez Villatoro on 07-07-2023 HBV surface Ag IA Ql Negative Negative [place] Serum or plasma immunoelectr ophoresis interpretation (nominal result)Ordered By: Stephane Melgar on 07-07-2023 Interpretation IEP [Interp] Comment . [facility] Comment on above: Immunofixation shows IgG monoclonal protein with lambdalight chain specificity. Serum or plasma immunoglobul in kappa light chains measurement (mass/volume)Ordered By: Stephane Melgar on 07-07-2023 Immunoglobulin light chains.kappa [Mass/Vol] 17.5 mg/L 3.3-19.4 [facility] Serum or plasma urea nitroge n measurement (mass/volume)Ordered By: Ramez Villatoro on 07-07-2023 Urea nitrogen [Mass/Vol] 10 mg/dL -18 [facility] Serum perinuclear neutrophil cytoplasmic antibody titer by immunofluorescenceOrdered By: Ramez Villatoro on 07-07-2023 Neutrophil cytoplasmic Ab.perinuclear IF (S) [Titer] <1:20 titer Neg:<1:20 [facility] Comment on above: The presence of posi tive fluorescence exhibiting P-ANCA orC-ANCA patterns alone is not specific for the diagnosis ofWegener's Granulomatosis (WG) or microscopic polyangiitis.Decisions about treatment should not be based solely onANCA IFA results. The [employer] ANCA Group Consensusrecommends follow up testing of positive sera with both KS-3 and MPO-ANCA enzyme immunoassays. As many as 5% serumsamples are positive only by EIA. Ref. AM J Clin [id number];111:507-513. Thin prep Papanicolaou smear with manual screeningOrdered By: Ramez Villatoro on 07-07-2023 Thin prep Papanicolaou smear with manual screening 3.8 g/dL 3.2-5.0 [facility] Thin prep Papanicolaou smear with manual screening 20 U/L 15-37 [facility] Thin prep Papanicolaou smear with manual screening 6 5-15 [facility] Thin prep Papanicolaou smear with manual screening 114 ug/dL 80-158 [facility] Comment on above: Detection Limit = 5 Thin prep Papanicolaou smear with manual screeningOrdered By: Stephane Paulsonrao on 07-07-2023 Thin prep Papanicolaou smear with manual screening 1.4 0.7-1.7 [facility] Total protein bloodOrdered B y: Stephane Paulsonrao on 07-07-2023 Protein [Mass/Vol] 7.0 g/dL 6.0-8.5 [facility] Whole blood hemoglobin A1c/t otal hemoglobin ratio (mass fraction)Ordered By: Ramez Villatoro on 07-07-2023 HbA1c (Bld) [Mass fraction] 5.2 % 3.8-5.6 [facility] Comment on above: Normal < 5.7 % Predi abetic 5.7 - 6.4 % Diabetic >or= 6.5 % Please note range changes. Absolute lymphocyte countOrd ered By: Stephane Paulsonrao on 06-24-2023 Lymphocytes Auto (Unsp spec) [#/Vol] 2.56 10*3/uL 0.83-4.51 [facility] Albumin Elph [Mass/Vol]Order ed By: [facility] on 06-24-2023 Albumin [Mass/Vol] 4.1 g/dL 2.9-4.4 [facility] Automated lymphocyte count a s percentage of total leukocytesOrdered By: Stephane Paulsonrao on 06-24-2023 Lymphocytes/100 WBC Auto (Unsp spec) 33.3 % 19-41 [facility] Basophil percentageOrdered B y: Stephane Paulsonrao on 06-24-2023 Basophils/100 WBC (Bld) 1.6 % 0-1 [facility] Bilirubin [Mass/Vol] 0.40 mg/dL 0.20-1.00 [place] Comment on above: For patients on eltr ombopag therapy, use of Dimension [place] TBIL is not recommended. Chloride [Moles/Vol] 108 mmol/L 98-107 [place] Eosinophils/100 WBC (Bld) 1.2 % 0-5 [facility] Glucose [Mass/Vol] 102 mg/dL 74-106 [facility] Comment on above: Fasting Glucose resu lt from 100 to 125 mg/dL suggests IMPAIRED HOMEOSTASIS per A.D.A. criteria. Hemoglobin (Bld) [Mass/Vol] 14.0 g/dL 12.0-15.0 [facility] LDH [Catalytic activity/Vol] 176 U/L 84-246 [facility] Monocytes/100 WBC (Bld) 6.1 % 0-10 [facility] Neutrophils (Bld) [#/Vol] 4.4 10*3/uL 2.0-7.7 [facility] Neutrophils/100 WBC (Bld) 57.4 % 47-70 [facility] Potassium [Moles/Vol] 4.0 mmol/L 3.5-5.1 [facility] Protein [Mass/Vol] 7.5 g/dL 6.4-8.2 [facility] Sodium [Moles/Vol] 139 mmol/L 136-145 [facility] WBC (Bld) [#/Vol] 7.7 10*3/uL 4.4-11.0 [facility] Determination of erythrocyte mean corpuscular volume (MCV)Ordered By: Stephane Melgar on 06-24-2023 MCV (RBC) [Entitic vol] 90.0 fL 81-99 [facility] Erythrocyte distribution wid th ratioOrdered By: Stephane Melgar on 06-24-2023 Erythrocyte distribution width (RBC) [Ratio] 13.2 % 11.6-14.6 [facility] Erythrocyte distribution wid th standard deviationOrdered By: Stephane Melgar on 06-24-2023 Erythrocyte distribution width (RBC) [Entitic vol] 42.9 fL 35.1-43.9 [facility] Hematocrit Auto (Bld) [Volum e fraction]Ordered By: Stephane Melgar on 06-24-2023 Hematocrit (Bld) [Volume fraction] 42.1 % 37-47 [facility] Immature granulocytes/100 WB C Auto (Bld)Ordered By: Stephane Melgar on 06-24-2023 Immature granulocytes/100 WBC (Bld) 0.400 % 0.0-0.9 [facility] Comment on above: IG% - Immature Granu locytes (promyelocytes, myelocytes and metamyelocytes) > 1% indicates that a LEFT SHIFT is Present. Interpretation of serum or p lasma protein pattern by immunofixation (narrative resultOrdered By: Stephane Melgar on 06-24-2023 Protein Fractions Immunofixation Vinny [Interp] 0.4 g/dL Not Observed [facility] Laboratory - Chemistry and C hemistry - challengeOrdered By: Stephane Melgar on 06-24-2023 Albumin/Globulin [Mass ratio] 1.1 {ratio} 0.9-2.4 [facility] ALP [Catalytic activity/Vol] 66 U/L 45-117 [facility] ALT [Catalytic activity/Vol] 31 U/L 13-56 [facility] CO2 [Moles/Vol] 28.0 mmol/L 21.0-32.0 [facility] Urea nitrogen/Creatinine [Mass ratio] 18.3 mg/mg 10-20 [facility] Laboratory - Hematology and Cell countsOrdered By: Stephane Melgar on 06-24-2023 MCH (RBC) [Entitic mass] 29.9 pg 27.0-32.0 [facility] MCHC (RBC) [Mass/Vol] 33.3 g/dL 32-36 [facility] Nucleated RBC/100 WBC (Bld) [Ratio] 0 % 0-5 [facility] Platelet mean volume (Bld) [Entitic vol] 9.9 fL 6.2-12.0 [facility] Platelets (Bld) [#/Vol] 324 10*3/uL 150-450 [facility] No Panel InformationOrdered By: Stephane Melgar on 06-24-2023 Addendum Document Comment . 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 Estimated GFR (MDRD) Amer 138 mL/min >60 [facility] Comment on above: GFR Calc Estimated GFR (MDRD) Non-Af Amer 114 mL/min >60 [facility] Comment on above: Non- GFR Calc Free Lambda Light Chains, Quant 20.4 mg/L 5.7-26.3 [facility] Immunoglobulin M 117 mg/dL 26-217 [facility] RBC Auto (Bld) [#/Vol]Ordere d By: Stephane Melgar on 06-24-2023 RBC (Bld) [#/Vol] 4.68 10*6/uL 4.2-5.4 [facility] Serum [id number] measu rement by electrophoresisOrdered By: Stephane Melgar on 06-24-2023 Alpha 1 globulin Elph [Mass/Vol] 0.2 g/dL 0.0-0.4 [facility] Alpha 1 globulin Elph [Mass/Vol] 0.6 g/dL 0.4-1.0 [facility] Serum globulin measurement ( mass/volume)Ordered By: Stephane Melgar on 06-24-2023 Globulin (S) [Mass/Vol] 2.9 g/dL 2.2-3.9 [facility] Serum immunoglobulin kappa l ight chains/immunoglobulin lambda light chains mass ratioOrdered By: Stephane Melgar on 06-24-2023 Immunoglobulin light chains.kappa/Immunoglobu beka light chains.lambda (S) [Mass ratio] 0.92 0.26-1.65 [facility] Comment on above: Performed at: [place] [id number] Director: Dipesh Nagy PhD, Phone: [phone] Serum or plasma IgA measurem ent (mass/volume)Ordered By: Stephane Melgar on 06-24-2023 IgA [Mass/Vol] 199 mg/dL 87-352 [facility] Serum or plasma IgG measurem ent (mass/volume)Ordered By: Stephane Melgar on 06-24-2023 IgG [Mass/Vol] 1065 mg/dL [id number] [facility] Serum or plasma beta globuli n measurement by electrophoresis (mass/volume)Ordered By: Stephane Melgar on 06-24-2023 Beta globulin Elph [Mass/Vol] 1.0 g/dL 0.7-1.3 [facility] Serum or plasma calcium erick urement (mass/volume)Ordered By: Stephane Melgar on 06-24-2023 Calcium [Mass/Vol] 9.1 mg/dL 8.5-10.1 [facility] Serum or plasma creatinine m easurement (mass/volume)Ordered By: Setphane Melgar on 06-24-2023 Creatinine [Mass/Vol] 0.60 mg/dL 0.55-1.02 [facility] Comment on above: The validity of the calculated GFR & GFRAA in patients over 70 years has not been determined. Clinical correlation is essential. Serum or plasma gamma globul in measurement by electrophoresis (mass/volume)Ordered By: Stephane Melgar on 06-24-2023 Gamma globulin Elph [Mass/Vol] 1.1 g/dL 0.4-1.8 [facility] Serum or plasma immunoelectr ophoresis interpretation (nominal result)Ordered By: Stephane Melgar on 06-24-2023 Interpretation IEP [Interp] Comment . [facility] Comment on above: Immunofixation shows IgG monoclonal protein with lambdalight chain specificity. Serum or plasma immunoglobul in kappa light chains measurement (mass/volume)Ordered By: Stephane Melgar on 06-24-2023 Immunoglobulin light chains.kappa [Mass/Vol] 18.8 mg/L 3.3-19.4 [facility] Serum or plasma urea nitroge n measurement (mass/volume)Ordered By: Stephane Melgar on 06-24-2023 Urea nitrogen [Mass/Vol] 11 mg/dL 7-18 [facility] Thin prep Papanicolaou smear with manual screeningOrdered By: Stephane Melgar on 06-24-2023 Thin prep Papanicolaou smear with manual screening 3.9 g/dL 3.2-5.0 [facility] Thin prep Papanicolaou smear with manual screening 18 U/L 15-37 [facility] Thin prep Papanicolaou smear with manual screening 3 5-15 [facility] Thin prep Papanicolaou smear with manual screening 1.5 0.7-1.7 [facility] Total protein bloodOrdered B y: Stephane Melgar on 06-24-2023 Protein [Mass/Vol] 7.0 g/dL 6.0-8.5 [facility] Basophil percentageOrdered B y: Ramez Villatoro on 06-09-2023 Basophil percentage < 1.0 mg/dL 0.55-1.02 [place] No Panel InformationOrdered By: Ramez Villatoro on 06-09-2023 Bedside Estimated GFR (eGFR) > 60.0000 mL/min >60 [facility] Absolute lymphocyte countOrd ered By: Cesar Lloyd on 04-22-2023 Lymphocytes Auto (Unsp spec) [#/Vol] 1.65 10*3/uL 0.83-4.51 [facility] Basophil percentageOrdered B y: Csear Lloyd on 04-22-2023 Basophils/100 WBC (Bld) 0.9 % 0-1 [facility] Chloride [Moles/Vol] 108 mmol/L 98-107 [place] Eosinophils/100 WBC (Bld) 0.4 % 0-5 [facility] Glucose [Mass/Vol] 106 mg/dL 74-106 [facility] Comment on above: Fasting Glucose resu lt from 100 to 125 mg/dL suggests IMPAIRED HOMEOSTASIS per A.D.A. criteria. Neutrophils (Bld) [#/Vol] 7.6 10*3/uL 2.0-7.7 [facility] Neutrophils/100 WBC (Bld) 76.8 % 47-70 [facility] Potassium [Moles/Vol] 3.9 mmol/L 3.5-5.1 [facility] Sodium [Moles/Vol] 142 mmol/L 136-145 [facility] WBC (Bld) [#/Vol] 9.9 10*3/uL 4.4-11.0 [facility] Blood erythrocytes count (nu mber/volume)Ordered By: Cesar Lloyd on 04-22-2023 RBC (Bld) [#/Vol] 4.81 10*6/uL 4.2-5.4 [facility] Blood hemoglobin measurement (mass/volume)Ordered By: Cesar Lloyd on 04-22-2023 Hemoglobin (Bld) [Mass/Vol] 14.3 g/dL 12.0-15.0 [facility] Blood lymphocytes/100 leukoc ytesOrdered By: Cesar Lloyd on 04-22-2023 Lymphocytes/100 WBC (Bld) 16.7 % 19-41 [facility] Blood monocytes/100 leukocyt esOrdered By: Cesar Lloyd on 04-22-2023 Monocytes/100 WBC (Bld) 4.7 % 0-10 [facility] Blood platelet mean volumeOr dered By: Cesar Lloyd on 04-22-2023 Platelet mean volume (Bld) [Entitic vol] 10.2 fL 6.2-12.0 [facility] Determination of erythrocyte mean corpuscular volume (MCV)Ordered By: Cesar Lloyd on 04-22-2023 MCV (RBC) [Entitic vol] 89.2 fL 81-99 [facility] Hematocrit Auto (Bld) [Volum e fraction]Ordered By: Cesar Lloyd on 04-22-2023 Hematocrit (Bld) [Volume fraction] 42.9 % 37-47 [facility] Laboratory - Chemistry and C hemistry - challengeOrdered By: Cesar Lloyd on 04-22-2023 CO2 [Moles/Vol] 27.0 mmol/L 21.0-32.0 [facility] Urea nitrogen/Creatinine [Mass ratio] 12.2 mg/mg 10-20 [facility] Laboratory - Hematology and Cell countsOrdered By: Cesar Lloyd on 04-22-2023 Erythrocyte distribution width (RBC) [Entitic vol] 43.2 fL 35.1-43.9 [facility] Erythrocyte distribution width (RBC) [Ratio] 13.1 % 11.6-14.6 [facility] Immature granulocytes/100 WBC (Bld) 0.500 % 0.0-0.9 [facility] Comment on above: IG% - Immature Granu locytes (promyelocytes, myelocytes and metamyelocytes) > 1% indicates that a LEFT SHIFT is Present. MCH (RBC) [Entitic mass] 29.7 pg 27.0-32.0 [facility] Nucleated RBC/100 WBC (Bld) [Ratio] 0 % 0-5 [facility] MCHC Auto (RBC) [Mass/Vol]Or dered By: Cesar Lloyd on 04-22-2023 MCHC (RBC) [Mass/Vol] 33.3 g/dL 32-36 [facility] No Panel InformationOrdered By: Cesar Lloyd on 04-22-2023 Troponin I High Sensitivity 5 pg/mL 3.0-54.0 [facility] Comment on above: Please Note: New Geri t Units and Gender Specific Reference Ranges. For more information see Policy Stat Procedure [place] High Sensitivity Troponin (TNIH) and attachments. Estimated Creatinine Clearance Calc 107.63 ml/min [facility] Estimated GFR (MDRD) Amer 147 mL/min >60 [facility] Comment on above: GFR Calc Estimated GFR (MDRD) Non-Af Amer 121 mL/min >60 [facility] Comment on above: Non- GFR Calc Platelets bldOrdered By: Lalito maxmaria guadalupe Prema on 04-22-2023 Platelets (Bld) [#/Vol] 316 10*3/uL 150-450 [facility] Serum or plasma calcium erick urement (mass/volume)Ordered By: Cesar Lloyd on 04-22-2023 Calcium [Mass/Vol] 9.0 mg/dL 8.5-10.1 [facility] Serum or plasma creatinine m easurement (mass/volume)Ordered By: Cesar Lloyd on 04-22-2023 Creatinine [Mass/Vol] 0.57 mg/dL 0.55-1.02 [facility] Comment on above: The validity of the calculated GFR & GFRAA in patients over 70 years has not been determined. Clinical correlation is essential. Serum or plasma urea nitroge n measurement (mass/volume)Ordered By: Cesar Lloyd on 04-22-2023 Urea nitrogen [Mass/Vol] 7 mg/dL 7-18 [facility] Thin prep Papanicolaou smear with manual screeningOrdered By: Cesar Lloyd on 04-22-2023 Thin prep Papanicolaou smear with manual screening 7 5-15 [facility] Absolute lymphocyte countOrd ered By: Giancarlo Katharina on 03-07-2023 Lymphocytes Auto (Unsp spec) [#/Vol] 2.78 10*3/uL 0.83-4.51 [facility] Basophil percentageOrdered B y: Giancarlo Posadas on 03-07-2023 Basophil percentage 0 SEEN /hpf 0-5 [place] Basophils/100 WBC (Bld) 1.5 % 0-1 [facility] Chloride [Moles/Vol] 101 mmol/L 98-107 [place] Eosinophils/100 WBC (Bld) 2.1 % 0-5 [facility] Glucose [Mass/Vol] 102 mg/dL 74-106 [facility] Comment on above: Fasting Glucose resu lt from 100 to 125 mg/dL suggests IMPAIRED HOMEOSTASIS per A.D.A. criteria. Neutrophils (Bld) [#/Vol] 4.4 10*3/uL 2.0-7.7 [facility] Neutrophils/100 WBC (Bld) 55.0 % 47-70 [facility] Potassium [Moles/Vol] 3.6 mmol/L 3.5-5.1 [facility] Sodium [Moles/Vol] 136 mmol/L 136-145 [facility] WBC (Bld) [#/Vol] 8.0 10*3/uL 4.4-11.0 [facility] Bilirubin Test strip Ql (U)O rdered By: Giancarlo Posadas on 03-07-2023 Bilirubin Ql (U) Negative Negative [facility] Blood erythrocytes count (nu mber/volume)Ordered By: Giancarlo Posadas on 03-07-2023 RBC (Bld) [#/Vol] 4.92 10*6/uL 4.2-5.4 [facility] Blood hemoglobin measurement (mass/volume)Ordered By: Giancarlo Posadas on 03-07-2023 Hemoglobin (Bld) [Mass/Vol] 14.6 g/dL 12.0-15.0 [facility] Blood lymphocytes/100 leukoc ytesOrdered By: Giancarlo Posadas on 03-07-2023 Lymphocytes/100 WBC (Bld) 34.6 % 19-41 [facility] Blood monocytes/100 leukocyt esOrdered By: Giancarlo Posadas on 03-07-2023 Monocytes/100 WBC (Bld) 6.6 % 0-10 [facility] Blood platelet mean volumeOr dered By: Giancarlo Posadas on 03-07-2023 Platelet mean volume (Bld) [Entitic vol] 10.6 fL 6.2-12.0 [facility] Culture, urineOrdered By: Miah Posadas on 03-07-2023 Bacteria identified Cx Nom (U) Mixed Gram Pos & Gram Neg Org [facility] Determination of erythrocyte mean corpuscular volume (MCV)Ordered By: Giancarlo Posadas on 03-07-2023 MCV (RBC) [Entitic vol] 90.4 fL 81-99 [facility] Hematocrit Auto (Bld) [Volum e fraction]Ordered By: Giancarlo Posadas on 03-07-2023 Hematocrit (Bld) [Volume fraction] 44.5 % 37-47 [facility] Ketones Test strip Ql (U)Ord ered By: Giancarlo Posadas on 03-07-2023 Ketones Ql (U) Negative Negative [facility] Laboratory - Chemistry and C hemistry - challengeOrdered By: Giancarlo Posadas on 03-07-2023 CO2 [Moles/Vol] 29.0 mmol/L 21.0-32.0 [facility] Magnesium [Mass/Vol] 2.1 mg/dL 1.6-2.6 [place] Urea nitrogen/Creatinine [Mass ratio] 15.2 mg/mg 10-20 [facility] Laboratory - Hematology and Cell countsOrdered By: Giancarlo Posadas on 03-07-2023 Erythrocyte distribution width (RBC) [Entitic vol] 44.9 fL 35.1-43.9 [facility] Erythrocyte distribution width (RBC) [Ratio] 13.6 % 11.6-14.6 [facility] Immature granulocytes/100 WBC (Bld) 0.200 % 0.0-0.9 [facility] Comment on above: IG% - Immature Granu locytes (promyelocytes, myelocytes and metamyelocytes) > 1% indicates that a LEFT SHIFT is Present. MCH (RBC) [Entitic mass] 29.7 pg 27.0-32.0 [facility] Nucleated RBC/100 WBC (Bld) [Ratio] 0 % 0-5 [facility] MCHC Auto (RBC) [Mass/Vol]Or dered By: Giancarlo Posadas on 03-07-2023 MCHC (RBC) [Mass/Vol] 32.8 g/dL 32-36 [facility] Mucus LM Ql (Urine sed)Order ed By: Giancarlo Posadas on 03-07-2023 Mucus Ql (Urine sed) 0 SEEN /hpf [facility] Nitrite Test strip Ql (U)Ord ered By: Giancarlo Posadas on 03-07-2023 Nitrite Ql (U) Negative Negative [facility] No Panel InformationOrdered By: Giancarlo Posadas on 03-07-2023 Estimated GFR (MDRD) Amer 161 mL/min >60 [facility] Comment on above: GFR Calc Estimated GFR (MDRD) Non-Af Amer 133 mL/min >60 [facility] Comment on above: Non- GFR Calc Thyroid Stimulating Hormone (TSH) 0.86 uIU/mL 0.358-3.74 [facility] Platelets bldOrdered By: Alycia Posadas on 03-07-2023 Platelets (Bld) [#/Vol] 314 10*3/uL 150-450 [facility] Protein Test strip Ql (U)Ord ered By: Giancarlo Posadas on 03-07-2023 Protein Ql (U) Negative Negative [facility] Serum or plasma calcium erick urement (mass/volume)Ordered By: Giancarlo Posadas on 03-07-2023 Calcium [Mass/Vol] 9.0 mg/dL 8.5-10.1 [facility] Serum or plasma creatinine m easurement (mass/volume)Ordered By: Giancarlo Posadas on 03-07-2023 Creatinine [Mass/Vol] 0.53 mg/dL 0.55-1.02 [facility] Comment on above: The validity of the calculated GFR & GFRAA in patients over 70 years has not been determined. Clinical correlation is essential. Serum or plasma urea nitroge n measurement (mass/volume)Ordered By: Giancarlo Posadas on 03-07-2023 Urea nitrogen [Mass/Vol] 8 mg/dL 7-18 [facility] Squamous epithelial cells de tection in urine sediment by light microscopyOrdered By: Giancarlo Posadas on 03-07-2023 Epithelial cells.squamous LM Ql (Urine sed) 0-5 SEEN /hpf 5-10 [facility] Thin prep Papanicolaou smear with manual screeningOrdered By: Giancarlo Posadas on 03-07-2023 Thin prep Papanicolaou smear with manual screening 6 5-15 [facility] Urine blood detectionOrdered By: Giancarlo Posadas on 03-07-2023 RBC Ql (U) 10 /ul Negative [facility] RBC Ql (U) 0 SEEN /hpf 0-5 [facility] Urine clarityOrdered By: Alycia Posadas on 03-07-2023 Clarity (U) Clear Clear [facility] Urine color determinationOrd ered By: Giancarlo Posadas on 03-07-2023 Color (U) Straw Yellow [facility] Urine glucose detectionOrder ed By: Giancarlo Posadas on 03-07-2023 Glucose Ql (U) Normal mg/dl Normal [facility] Urine leukocyte esterase det ection by dipstickOrdered By: Giancarlo Posadas on 03-07-2023 Leukocyte esterase Test strip Ql (U) Negative Negative [facility] Urine pHOrdered By: Giancarlo Mcginnis er on 03-07-2023 pH (U) 7.0 [pH] 5.0 - 8.0 [facility] Urine sediment bacteria coun t by microscopy (number/high power field)Ordered By: Giancarlo Posadas on 03-07-2023 Bacteria LM.HPF (Urine sed) [#/Area] 0 /[HPF] None Seen [facility] Urine specific gravity measu rementOrdered By: Giancarlo Bobder on 03-07-2023 Specific gravity (U) [Rel density] 1.005 1.002-1.030 [facility] Urobilinogen Auto test strip Ql (U)Ordered By: Giancarlo Posadas on 03-07-2023 Urobilinogen Ql (U) Normal mg/dl Normal [facility] Absolute lymphocyte countOrd ered By: Ramez Villatoro on 02-27-2023 Lymphocytes Auto (Unsp spec) [#/Vol] 2.86 10*3/uL 0.83-4.51 [facility] Albumin Elph [Mass/Vol]Order ed By: Ramez Villatoro on 02-27-2023 Albumin [Mass/Vol] 4.0 g/dL 2.9-4.4 [facility] Basophil percentageOrdered B y: Ramez Villatoro on 02-27-2023 Basophils/100 WBC (Bld) 1.6 % 0-1 [facility] Eosinophils/100 WBC (Bld) 1.2 % 0-5 [facility] LDH [Catalytic activity/Vol] 194 U/L 84-246 [facility] Neutrophils (Bld) [#/Vol] 5.6 10*3/uL 2.0-7.7 [facility] Neutrophils/100 WBC (Bld) 59.8 % 47-70 [facility] WBC (Bld) [#/Vol] 9.3 10*3/uL 4.4-11.0 [facility] Blood erythrocytes count (nu mber/volume)Ordered By: Ramez Villatoro on 02-27-2023 RBC (Bld) [#/Vol] 4.83 10*6/uL 4.2-5.4 [facility] Blood hemoglobin measurement (mass/volume)Ordered By: Ramez Villatoro on 02-27-2023 Hemoglobin (Bld) [Mass/Vol] 14.0 g/dL 12.0-15.0 [facility] Blood lymphocytes/100 leukoc ytesOrdered By: Ramez Villatoro on 02-27-2023 Lymphocytes/100 WBC (Bld) 30.8 % 19-41 [facility] Blood monocytes/100 leukocyt esOrdered By: Ramez Villatoro on 02-27-2023 Monocytes/100 WBC (Bld) 6.3 % 0-10 [facility] Blood platelet mean volumeOr dered By: Ramez Villatoro on 02-27-2023 Platelet mean volume (Bld) [Entitic vol] 10.5 fL 6.2-12.0 [facility] Determination of erythrocyte mean corpuscular volume (MCV)Ordered By: Ramez Villatoro on 02-27-2023 MCV (RBC) [Entitic vol] 88.2 fL 81-99 [facility] Hematocrit Auto (Bld) [Volum e fraction]Ordered By: Ramez Villatoro on 02-27-2023 Hematocrit (Bld) [Volume fraction] 42.6 % 37-47 [facility] Hemoglobin in reticulocytes (mass per reticulocyte)Ordered By: Ramez Villatoro on 02-27-2023 Hemoglobin (Reticulocytes) [Entitic mass] 32.7 pg 30-35 [facility] Interpretation of serum or p lasma protein pattern by immunofixation (narrative resultOrdered By: Ramez Villatoro on 02-27-2023 Protein Fractions Immunofixation Vinny [Interp] 0.3 g/dL Not Observed [facility] Iron measurement (mass/mass) Ordered By: Ramez Villatoro on 02-27-2023 Iron (Unsp spec) [Mass/Mass] 53 ug/dL 50-170 [facility] Laboratory - Hematology and Cell countsOrdered By: Ramez Villatoro on 02-27-2023 Erythrocyte distribution width (RBC) [Entitic vol] 43.4 fL 35.1-43.9 [facility] Erythrocyte distribution width (RBC) [Ratio] 13.5 % 11.6-14.6 [facility] Immature granulocytes/100 WBC (Bld) 0.300 % 0.0-0.9 [facility] Comment on above: IG% - Immature Granu locytes (promyelocytes, myelocytes and metamyelocytes) > 1% indicates that a LEFT SHIFT is Present. MCH (RBC) [Entitic mass] 29.0 pg 27.0-32.0 [facility] Nucleated RBC/100 WBC (Bld) [Ratio] 0 % 0-5 [facility] MCHC Auto (RBC) [Mass/Vol]Or dered By: Ramez Villatoro on 02-27-2023 MCHC (RBC) [Mass/Vol] 32.9 g/dL 32-36 [facility] No Panel InformationOrdered By: Ramez Villatoro on 02-27-2023 Addendum Document Comment . 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 Endomysial IgA Antibody Negative Negative [facility] Haptoglobin 69 mg/dL 42-296 [facility] Comment on above: Performed at: [place] [id number] Director: Dipesh Nagy PhD, Phone: [phone] Immature Reticulocyte Fraction 7.00 % 3.00-15.90 [facility] Reticulocyte Count 1.87 % 0.5-1.5 [facility] Total Iron Binding Capacity 297 ug/dL 250-450 [facility] Platelets bldOrdered By: Jeff Villatoro on 02-27-2023 Platelets (Bld) [#/Vol] 351 10*3/uL 150-450 [facility] Serum ltcek-6-nurovanz measu rement by electrophoresisOrdered By: Ramez Villatoro on 02-27-2023 Alpha 1 globulin Elph [Mass/Vol] 0.2 g/dL 0.0-0.4 [facility] Alpha 1 globulin Elph [Mass/Vol] 0.6 g/dL 0.4-1.0 [facility] Serum globulin measurement ( mass/volume)Ordered By: Ramez Villatoro on 02-27-2023 Globulin (S) [Mass/Vol] 2.9 g/dL 2.2-3.9 [facility] Serum or plasma IgA measurem ent (mass/volume)Ordered By: Ramez Villatoro on 02-27-2023 IgA [Mass/Vol] 213 mg/dL 87-352 [facility] Serum or plasma IgG measurem ent (mass/volume)Ordered By: Ramez Villatoro on 02-27-2023 IgG [Mass/Vol] 1055 mg/dL [id number] [facility] Serum or plasma IgM measurem ent (mass/volume)Ordered By: Ramez Villatoro on 02-27-2023 IgM [Mass/Vol] 109 mg/dL 26-217 [facility] Serum or plasma beta globuli n measurement by electrophoresis (mass/volume)Ordered By: Ramez Villatoro on 02-27-2023 Beta globulin Elph [Mass/Vol] 0.9 g/dL 0.7-1.3 [facility] Serum or plasma ferritin chris surement (mass/volume)Ordered By: Ramez Villatoro on 02-27-2023 Ferritin [Mass/Vol] 144 ng/mL 8-252 [facility] Serum or plasma gamma globul in measurement by electrophoresis (mass/volume)Ordered By: Ramez Villatoro on 02-27-2023 Gamma globulin Elph [Mass/Vol] 1.1 g/dL 0.4-1.8 [facility] Serum or plasma immunoelectr ophoresis interpretation (nominal result)Ordered By: Ramez Villatoro on 02-27-2023 Interpretation IEP [Interp] Comment . [facility] Comment on above: Immunofixation shows IgG monoclonal protein with lambdalight chain specificity. Serum tissue transglutaminas e IgA antibody assay (units/volume)Ordered By: Ramez Villatoro on 02-27-2023 tTG IgA Qn (S) <2 U/mL 0-3 [facility] Comment on above: Negative 0 - 3 Weak Positive 4 - 10 Positive >10 Tissue Transglutaminase (tTG) has been identified as the endomysial antigen. Studies have demonstr- ated that endomysial IgA antibodies have over 99% specificity for gluten sensitive enteropathy. Thin prep Papanicolaou smear with manual screeningOrdered By: Ramez Villatoro on 02-27-2023 Thin prep Papanicolaou smear with manual screening 1.4 0.7-1.7 [facility] Total protein bloodOrdered B y: Ramez Villatoro on 02-27-2023 Protein [Mass/Vol] 6.9 g/dL 6.0-8.5 [facility] Absolute lymphocyte countOrd ered By: HEALTH ASSESSMENT on 12-13-2022 Lymphocytes Auto (Unsp spec) [#/Vol] 2.48 10*3/uL 0.83-4.51 [facility] Absolute reticulocyte countO rdered By: HEALTH ASSESSMENT on 12-13-2022 Reticulocytes (Bld) [#/Vol] 0.00 10*3/uL 0-5 [facility] Basophil percentageOrdered B y: HEALTH ASSESSMENT on 12-13-2022 Basophil percentage 3.6 mg/dL 2.5-4.9 [facility] Bilirubin [Mass/Vol] 0.30 mg/dL 0.20-1.00 [place] Comment on above: For patients on eltr ombopag therapy, use of Dimension [place] TBIL is not recommended. Chloride [Moles/Vol] 107 mmol/L 98-107 [place] Cholesterol [Mass/Vol] 143 mg/dL <200 [facility] Comment on above: <200 mg/dL Desirable 200-240 mg/dL Borderline >240 mg/dL High Risk Glucose [Mass/Vol] 95 mg/dL 74-106 [facility] LDH [Catalytic activity/Vol] 158 U/L 84-246 [facility] Neutrophils (Bld) [#/Vol] 3.2 10*3/uL 2.0-7.7 [facility] Potassium [Moles/Vol] 3.8 mmol/L 3.5-5.1 [facility] Protein [Mass/Vol] 7.0 g/dL 6.4-8.2 [facility] Sodium [Moles/Vol] 141 mmol/L 136-145 [facility] Triglyceride [Mass/Vol] 69 mg/dL <199 [facility] Comment on above: The drugs N-Acetylcy steine and Metamizole may falsely depress this assay.Serum Triglycerides Reference Interval Normal <150 mg/dL Borderline high 150 - 199 mg/dL High 200 - 499 mg/dL Very High > or = 500 mg/dL WBC (Bld) [#/Vol] 6.4 10*3/uL 4.4-11.0 [facility] Bilirubin Test strip Ql (U)O rdered By: HEALTH ASSESSMENT on 12-13-2022 Bilirubin Ql (U) Negative Negative [facility] Blood erythrocytes count (nu mber/volume)Ordered By: HEALTH ASSESSMENT on 12-13-2022 RBC (Bld) [#/Vol] 4.39 10*6/uL 4.2-5.4 [facility] Blood hemoglobin measurement (mass/volume)Ordered By: HEALTH ASSESSMENT on 12-13-2022 Hemoglobin (Bld) [Mass/Vol] 13.3 g/dL 12.0-15.0 [facility] Blood platelet mean volumeOr dered By: HEALTH ASSESSMENT on 12-13-2022 Platelet mean volume (Bld) [Entitic vol] 10.0 fL 6.2-12.0 [facility] Determination of erythrocyte mean corpuscular volume (MCV)Ordered By: HEALTH ASSESSMENT on 12-13-2022 MCV (RBC) [Entitic vol] 93.4 fL 81-99 [facility] Direct bilirubinOrdered By: HEALTH ASSESSMENT on 12-13-2022 Bilirubin.direct [Mass/Vol] 0.09 mg/dL 0.00-0.30 [facility] Hematocrit Auto (Bld) [Volum e fraction]Ordered By: HEALTH ASSESSMENT on 12-13-2022 Hematocrit (Bld) [Volume fraction] 41.0 % 37-47 [facility] Ketones Test strip Ql (U)Ord ered By: HEALTH ASSESSMENT on 12-13-2022 Ketones Ql (U) Negative Negative [facility] Laboratory - Chemistry and C hemistry - challengeOrdered By: HEALTH ASSESSMENT on 12-13-2022 ALP [Catalytic activity/Vol] 60 U/L 45-117 [facility] ALT [Catalytic activity/Vol] 20 U/L 13-56 [facility] Cholesterol.total/Choles terol in HDL [Mass ratio] 2.50 {ratio} [facility] CO2 [Moles/Vol] 28.0 mmol/L 21.0-32.0 [facility] Globulin (S) [Mass/Vol] 3.2 g/dL 2.2-4.2 [facility] Urea nitrogen/Creatinine [Mass ratio] 11.1 mg/mg 10-20 [facility] Laboratory - Hematology and Cell countsOrdered By: HEALTH ASSESSMENT on 12-13-2022 Erythrocyte distribution width (RBC) [Entitic vol] 41.9 fL 35.1-43.9 [facility] Erythrocyte distribution width (RBC) [Ratio] 12.1 % 11.6-14.6 [facility] MCH (RBC) [Entitic mass] 30.3 pg 27.0-32.0 [facility] Nucleated RBC/100 WBC (Bld) [Ratio] 0 % 0-5 [facility] MCHC Auto (RBC) [Mass/Vol]Or dered By: HEALTH ASSESSMENT on 12-13-2022 MCHC (RBC) [Mass/Vol] 32.4 g/dL 32-36 [facility] Nitrite Test strip Ql (U)Ord ered By: HEALTH ASSESSMENT on 12-13-2022 Nitrite Ql (U) Negative Negative [facility] No Panel InformationOrdered By: HEALTH ASSESSMENT on 12-13-2022 Estimated GFR (MDRD) Amer 157 mL/min >60 [facility] Comment on above: GFR Calc Estimated GFR (MDRD) Non-Af Amer 130 mL/min >60 [facility] Comment on above: Non- GFR Calc Platelets bldOrdered By: HEA LT ASSESSMENT on 12-13-2022 Platelets (Bld) [#/Vol] 300 10*3/uL 150-450 [facility] Protein Test strip Ql (U)Ord ered By: HEALTH ASSESSMENT on 12-13-2022 Protein Ql (U) Negative Negative [facility] Segmented neutrophils/100 WB C Auto (Bld)Ordered By: HEALTH ASSESSMENT on 12-13-2022 Segmented neutrophils/100 WBC (Bld) 51.0 % 47-70 [facility] Serum or plasma albumin erick urement (mass/volume)Ordered By: HEALTH ASSESSMENT on 12-13-2022 Albumin [Mass/Vol] 3.8 g/dL 3.2-5.0 [facility] Serum or plasma albumin/glob ulin mass ratioOrdered By: HEALTH ASSESSMENT on 12-13-2022 Albumin/Globulin [Mass ratio] 1.2 {ratio} 0.9-2.4 [facility] Serum or plasma calcium erick urement (mass/volume)Ordered By: HEALTH ASSESSMENT on 12-13-2022 Calcium [Mass/Vol] 8.8 mg/dL 8.5-10.1 [facility] Serum or plasma cholesterol in HDL measurement (mass/volume)Ordered By: HEALTH ASSESSMENT on 12-13-2022 Cholesterol in HDL [Mass/Vol] 57 mg/dL >40 [facility] Comment on above: The drugs N-Acetylcy steine and Metamizole may falsely depress this assay. Reference Range HDL <40 mg/dL Low HDL Cholesterol HDL >or= 60 mg/dL High HDL Cholesterol Serum or plasma cholesterol in VLDL measurement (mass/volume)Ordered By: HEALTH ASSESSMENT on 12-13-2022 Cholesterol in VLDL [Mass/Vol] 14 mg/dL 5-40 [facility] Serum or plasma creatinine m easurement (mass/volume)Ordered By: HEALTH ASSESSMENT on 12-13-2022 Creatinine [Mass/Vol] 0.54 mg/dL 0.55-1.02 [facility] Comment on above: The validity of the calculated GFR & GFRAA in patients over 70 years has not been determined. Clinical correlation is essential. Serum or plasma low density lipoprotein (LDL) cholesterol measurement (mass/volume)Ordered By: HEALTH ASSESSMENT on 12-13-2022 Cholesterol in LDL [Mass/Vol] 72 mg/dL 0-130 [facility] Serum or plasma urea nitroge n measurement (mass/volume)Ordered By: HEALTH ASSESSMENT on 12-13-2022 Urea nitrogen [Mass/Vol] 6 mg/dL 7-18 [facility] Serum or plasma uric acid me asurement (mass/volume)Ordered By: HEALTH ASSESSMENT on 12-13-2022 Urate [Mass/Vol] 3.7 mg/dL 2.6-6.0 [facility] Comment on above: The drugs N-Acetylcy steine and Metamizole may falsely depress this assay. Thin prep Papanicolaou smear with manual screeningOrdered By: HEALTH ASSESSMENT on 12-13-2022 Thin prep Papanicolaou smear with manual screening 13 U/L 15-37 [facility] Thin prep Papanicolaou smear with manual screening 6 5-15 [facility] Urine blood detectionOrdered By: HEALTH ASSESSMENT on 12-13-2022 RBC Ql (U) 25 /ul Negative [facility] Urine clarityOrdered By: HEA LTH ASSESSMENT on 12-13-2022 Clarity (U) Clear Clear [facility] Urine color determinationOrd ered By: HEALTH ASSESSMENT on 12-13-2022 Color (U) Yellow Yellow [facility] Urine glucose detectionOrder ed By: HEALTH ASSESSMENT on 12-13-2022 Glucose Ql (U) Normal mg/dl Normal [facility] Urine leukocyte esterase det ection by dipstickOrdered By: HEALTH ASSESSMENT on 12-13-2022 Leukocyte esterase Test strip Ql (U) Negative Negative [facility] Urine pHOrdered By: HEALTH A SSESSMENT on 12-13-2022 pH (U) 6.5 [pH] 5.0 - 8.0 [facility] Urine specific gravity measu rementOrdered By: HEALTH ASSESSMENT on 12-13-2022 Specific gravity (U) [Rel density] 1.010 1.002-1.030 [facility] Urobilinogen Auto test strip Ql (U)Ordered By: HEALTH ASSESSMENT on 12-13-2022 Urobilinogen Ql (U) Normal mg/dl Normal [facility] Absolute lymphocyte countOrd ered By: Hermelinda Castillo on 11-18-2022 Lymphocytes Auto (Unsp spec) [#/Vol] 1.63 10*3/uL 0.83-4.51 [facility] Basophil percentageOrdered B y: Hermelinda Castillo on 11-18-2022 Basophils/100 WBC (Bld) 1.1 % 0-1 [facility] Chloride [Moles/Vol] 109 mmol/L 98-107 [place] Eosinophils/100 WBC (Bld) 1.1 % 0-5 [facility] Glucose [Mass/Vol] 85 mg/dL 74-106 [facility] Neutrophils (Bld) [#/Vol] 4.9 10*3/uL 2.0-7.7 [facility] Neutrophils/100 WBC (Bld) 67.9 % 47-70 [facility] Potassium [Moles/Vol] 4.3 mmol/L 3.5-5.1 [facility] Sodium [Moles/Vol] 140 mmol/L 136-145 [facility] WBC (Bld) [#/Vol] 7.2 10*3/uL 4.4-11.0 [facility] Blood erythrocytes count (nu mber/volume)Ordered By: Hermelinda Castillo on 11-18-2022 RBC (Bld) [#/Vol] 3.66 10*6/uL 4.2-5.4 [facility] Blood hemoglobin measurement (mass/volume)Ordered By: Hermelinda Castillo on 11-18-2022 Hemoglobin (Bld) [Mass/Vol] 11.3 g/dL 12.0-15.0 [facility] Blood lymphocytes/100 leukoc ytesOrdered By: Hermelinda Castillo on 11-18-2022 Lymphocytes/100 WBC (Bld) 22.8 % 19-41 [facility] Blood monocytes/100 leukocyt esOrdered By: Hermelinda Castillo on 11-18-2022 Monocytes/100 WBC (Bld) 6.7 % 0-10 [facility] Blood platelet mean volumeOr dered By: Hermelinda Castillo on 11-18-2022 Platelet mean volume (Bld) [Entitic vol] 10.2 fL 6.2-12.0 [facility] Determination of erythrocyte mean corpuscular volume (MCV)Ordered By: Hermelinda Castillo on 11-18-2022 MCV (RBC) [Entitic vol] 99.5 fL 81-99 [facility] Hematocrit Auto (Bld) [Volum e fraction]Ordered By: Hermelinda Castillo on 11-18-2022 Hematocrit (Bld) [Volume fraction] 36.4 % 37-47 [facility] Iron measurement (mass/mass) Ordered By: Hermelinda Castillo on 11-18-2022 Iron (Unsp spec) [Mass/Mass] 40 ug/dL 50-170 [facility] Laboratory - Chemistry and C hemistry - challengeOrdered By: Hermelinda Castillo on 11-18-2022 CO2 [Moles/Vol] 27.0 mmol/L 21.0-32.0 [facility] Urea nitrogen/Creatinine [Mass ratio] 11.9 mg/mg 10-20 [facility] Laboratory - Hematology and Cell countsOrdered By: Hermelinda Castillo on 11-18-2022 Erythrocyte distribution width (RBC) [Entitic vol] 51.3 fL 35.1-43.9 [facility] Erythrocyte distribution width (RBC) [Ratio] 14.3 % 11.6-14.6 [facility] Immature granulocytes/100 WBC (Bld) 0.400 % 0.0-0.9 [facility] Comment on above: IG% - Immature Granu locytes (promyelocytes, myelocytes and metamyelocytes) > 1% indicates that a LEFT SHIFT is Present. MCH (RBC) [Entitic mass] 30.9 pg 27.0-32.0 [facility] Nucleated RBC/100 WBC (Bld) [Ratio] 0 % 0-5 [facility] MCHC Auto (RBC) [Mass/Vol]Or dered By: Hermelinda Castillo on 11-18-2022 MCHC (RBC) [Mass/Vol] 31.0 g/dL 32-36 [facility] No Panel InformationOrdered By: Hermelinda Castillo on 11-18-2022 Estimated GFR (MDRD) Amer 142 mL/min >60 [facility] Comment on above: GFR Calc Estimated GFR (MDRD) Non-Af Amer 118 mL/min >60 [facility] Comment on above: Non- GFR Calc Total Iron Binding Capacity 282 ug/dL 250-450 [facility] Platelets bldOrdered By: Jacobo Castillo on 11-18-2022 Platelets (Bld) [#/Vol] 328 10*3/uL 150-450 [facility] Serum or plasma calcium erick urement (mass/volume)Ordered By: Hermelinda Castillo on 11-18-2022 Calcium [Mass/Vol] 8.5 mg/dL 8.5-10.1 [facility] Serum or plasma creatinine m easurement (mass/volume)Ordered By: Hermelinda Castillo on 11-18-2022 Creatinine [Mass/Vol] 0.59 mg/dL 0.55-1.02 [facility] Comment on above: The validity of the calculated GFR & GFRAA in patients over 70 years has not been determined. Clinical correlation is essential. Serum or plasma ferritin chris surement (mass/volume)Ordered By: Hermelinda Castillo on 11-18-2022 Ferritin [Mass/Vol] 143 ng/mL 8-252 [facility] Serum or plasma urea nitroge n measurement (mass/volume)Ordered By: Hermelinda Castillo on 11-18-2022 Urea nitrogen [Mass/Vol] 7 mg/dL 7-18 [facility] Thin prep Papanicolaou smear with manual screeningOrdered By: Hermelinda Castillo on 11-18-2022 Thin prep Papanicolaou smear with manual screening 4 5-15 [facility] Blood hemoglobin measurement (mass/volume)Ordered By: Ramez Villatoro on 11-12-2022 Hemoglobin (Bld) [Mass/Vol] 10.6 g/dL 12.0-15.0 [facility] Absolute lymphocyte countOrd ered By: Ganesh Bell on 11-01-2022 Lymphocytes Auto (Unsp spec) [#/Vol] 2.12 10*3/uL 0.83-4.51 [facility] Basophil percentageOrdered B y: Ganesh Bell on 11-01-2022 Basophil percentage 3.5 mg/dL 2.5-4.9 [facility] Basophils/100 WBC (Bld) 1.0 % 0-1 [facility] Chloride [Moles/Vol] 110 mmol/L 98-107 [place] Eosinophils/100 WBC (Bld) 1.6 % 0-5 [facility] Glucose [Mass/Vol] 83 mg/dL 74-106 [facility] Neutrophils (Bld) [#/Vol] 5.3 10*3/uL 2.0-7.7 [facility] Neutrophils/100 WBC (Bld) 64.7 % 47-70 [facility] Potassium [Moles/Vol] 3.0 mmol/L 3.5-5.1 [facility] Sodium [Moles/Vol] 142 mmol/L 136-145 [facility] WBC (Bld) [#/Vol] 8.1 10*3/uL 4.4-11.0 [facility] Blood erythrocytes count (nu mber/volume)Ordered By: Ganesh Bell on 11-01-2022 RBC (Bld) [#/Vol] 2.54 10*6/uL 4.2-5.4 [facility] Blood hemoglobin measurement (mass/volume)Ordered By: Ganesh Bell on 11-01-2022 Hemoglobin (Bld) [Mass/Vol] 7.8 g/dL 12.0-15.0 [facility] Blood lymphocytes/100 leukoc ytesOrdered By: Ganesh Bell on 11-01-2022 Lymphocytes/100 WBC (Bld) 26.0 % 19-41 [facility] Blood monocytes/100 leukocyt esOrdered By: Ganesh Bell on 11-01-2022 Monocytes/100 WBC (Bld) 6.0 % 0-10 [facility] Blood platelet mean volumeOr dered By: Ganesh Bell on 11-01-2022 Platelet mean volume (Bld) [Entitic vol] 11.0 fL 6.2-12.0 [facility] Determination of erythrocyte mean corpuscular volume (MCV)Ordered By: Ganesh Bell on 11-01-2022 MCV (RBC) [Entitic vol] 92.5 fL 81-99 [facility] Hematocrit Auto (Bld) [Volum e fraction]Ordered By: Ganesh Bell on 11-01-2022 Hematocrit (Bld) [Volume fraction] 23.5 % 37-47 [facility] Laboratory - Chemistry and C hemistry - challengeOrdered By: Ganesh Bell on 11-01-2022 CO2 [Moles/Vol] 24.0 mmol/L 21.0-32.0 [facility] Magnesium [Mass/Vol] 1.8 mg/dL 1.6-2.6 [place] Urea nitrogen/Creatinine [Mass ratio] 13.3 mg/mg 10-20 [facility] Laboratory - Hematology and Cell countsOrdered By: Ganesh Bell on 11-01-2022 Erythrocyte distribution width (RBC) [Entitic vol] 42.1 fL 35.1-43.9 [facility] Erythrocyte distribution width (RBC) [Ratio] 12.7 % 11.6-14.6 [facility] Immature granulocytes/100 WBC (Bld) 0.700 % 0.0-0.9 [facility] Comment on above: IG% - Immature Granu locytes (promyelocytes, myelocytes and metamyelocytes) > 1% indicates that a LEFT SHIFT is Present. MCH (RBC) [Entitic mass] 30.7 pg 27.0-32.0 [facility] Nucleated RBC/100 WBC (Bld) [Ratio] 0 % 0-5 [facility] MCHC Auto (RBC) [Mass/Vol]Or dered By: Ganesh Bell on 11-01-2022 MCHC (RBC) [Mass/Vol] 33.2 g/dL 32-36 [facility] No Panel InformationOrdered By: Ganesh Bell on 11-01-2022 Estimated Creatinine Clearance Calc 116.97 ml/min [facility] Estimated GFR (MDRD) Amer 162 mL/min >60 [facility] Comment on above: GFR Calc Estimated GFR (MDRD) Non-Af Amer 134 mL/min >60 [facility] Comment on above: Non- GFR Calc Platelets bldOrdered By: Jasen Bell on 11-01-2022 Platelets (Bld) [#/Vol] 255 10*3/uL 150-450 [facility] Serum or plasma calcium erick urement (mass/volume)Ordered By: Ganesh Bell on 11-01-2022 Calcium [Mass/Vol] 7.9 mg/dL 8.5-10.1 [facility] Serum or plasma creatinine m easurement (mass/volume)Ordered By: Ganesh Bell on 11-01-2022 Creatinine [Mass/Vol] 0.53 mg/dL 0.55-1.02 [facility] Comment on above: The validity of the calculated GFR & GFRAA in patients over 70 years has not been determined. Clinical correlation is essential. Serum or plasma urea nitroge n measurement (mass/volume)Ordered By: Ganesh Bell on 11-01-2022 Urea nitrogen [Mass/Vol] 7 mg/dL 7-18 [facility] Thin prep Papanicolaou smear with manual screeningOrdered By: Ganesh Bell on 11-01-2022 Thin prep Papanicolaou smear with manual screening 8 5-15 [facility] Whole blood hemoglobin A1c/t otal hemoglobin ratio (mass fraction)Ordered By: Ganesh Bell on 10-31-2022 HbA1c (Bld) [Mass fraction] 5.2 % 3.8-5.6 [facility] Comment on above: Normal < 5.7 % Predi abetic 5.7 - 6.4 % Diabetic >or= 6.5 % Please note range changes. Absolute lymphocyte countOrd ered By: Henok Bassett on 10-29-2022 Lymphocytes Auto (Unsp spec) [#/Vol] 4.75 10*3/uL 0.83-4.51 [facility] Basophil percentageOrdered B y: Henok Bassett on 10-29-2022 Lactate [Moles/Vol] 1.0 mmol/L 0.4-2.0 [facility] Basophils/100 WBC (Bld) 1.1 % 0-1 [facility] Bilirubin [Mass/Vol] 0.40 mg/dL 0.20-1.00 [place] Comment on above: For patients on eltr ombopag therapy, use of Dimension [place] TBIL is not recommended. Chloride [Moles/Vol] 107 mmol/L 98-107 [place] Eosinophils/100 WBC (Bld) 1.7 % 0-5 [facility] Glucose [Mass/Vol] 235 mg/dL 74-106 [facility] Comment on above: Glucose result great er than or equal to 200 mg/dLsuggests DIABETES MELLITUS per A.D.A. criteria. Neutrophils (Bld) [#/Vol] 8.4 10*3/uL 2.0-7.7 [facility] Neutrophils/100 WBC (Bld) 58.1 % 47-70 [facility] Potassium [Moles/Vol] 4.2 mmol/L 3.5-5.1 [facility] Protein [Mass/Vol] 6.0 g/dL 6.4-8.2 [facility] Sodium [Moles/Vol] 137 mmol/L 136-145 [facility] WBC (Bld) [#/Vol] 14.4 10*3/uL 4.4-11.0 [facility] Blood erythrocytes count (nu mber/volume)Ordered By: Henok Bassett on 10-29-2022 RBC (Bld) [#/Vol] 3.75 10*6/uL 4.2-5.4 [facility] Blood hemoglobin measurement (mass/volume)Ordered By: Henok Bassett on 10-29-2022 Hemoglobin (Bld) [Mass/Vol] 11.4 g/dL 12.0-15.0 [facility] Blood lymphocytes/100 leukoc ytesOrdered By: Henok Bassett on 10-29-2022 Lymphocytes/100 WBC (Bld) 33.1 % 19-41 [facility] Blood monocytes/100 leukocyt esOrdered By: Henok Bassett on 10-29-2022 Monocytes/100 WBC (Bld) 5.4 % 0-10 [facility] Blood platelet mean volumeOr dered By: Henok Bassett on 10-29-2022 Platelet mean volume (Bld) [Entitic vol] 10.3 fL 6.2-12.0 [facility] Determination of erythrocyte mean corpuscular volume (MCV)Ordered By: Henok Bassett on 10-29-2022 MCV (RBC) [Entitic vol] 92.0 fL 81-99 [facility] Hematocrit Auto (Bld) [Volum e fraction]Ordered By: Henok Bassett on 10-29-2022 Hematocrit (Bld) [Volume fraction] 34.5 % 37-47 [facility] INR in Blood by Coagulation assayOrdered By: Henok Bassett on 10-29-2022 INR Coag (Bld) [Relative time] 1.1 {INR} [facility] Laboratory - Chemistry and C hemistry - challengeOrdered By: Henok Bassett on 10-29-2022 ALP [Catalytic activity/Vol] 56 U/L 45-117 [facility] ALT [Catalytic activity/Vol] 18 U/L 13-56 [facility] CO2 [Moles/Vol] 24.0 mmol/L 21.0-32.0 [facility] Globulin (S) [Mass/Vol] 2.9 g/dL 2.2-4.2 [facility] Lipase [Catalytic activity/Vol] 35 U/L 13-75 [facility] Comment on above: Please note:LIPASE r evised reference range effective 22. New Lipase methodology. Expected to produce lower values than the previous assay method. NEW Reference Range: 13 - 75 U/L Urea nitrogen/Creatinine [Mass ratio] 42.3 mg/mg 10-20 [facility] Laboratory - CoagulationOrde red By: Henok Bassett on 10-29-2022 aPTT Coag (Bld) [Time] 24.7 s 24.1-36.2 [facility] PT Coag (PPP) [Time] 14.0 s 11.7-14.9 [place] [facility] - Hematology and Cell countsOrdered By: Henok Bassett on 10-29-2022 Erythrocyte distribution width (RBC) [Entitic vol] 42.3 fL 35.1-43.9 [facility] Erythrocyte distribution width (RBC) [Ratio] 12.4 % 11.6-14.6 [facility] Immature granulocytes/100 WBC (Bld) 0.600 % 0.0-0.9 [facility] Comment on above: IG% - Immature Granu locytes (promyelocytes, myelocytes and metamyelocytes) > 1% indicates that a LEFT SHIFT is Present. MCH (RBC) [Entitic mass] 30.4 pg 27.0-32.0 [facility] Nucleated RBC/100 WBC (Bld) [Ratio] 0 % 0-5 [facility] MCHC Auto (RBC) [Mass/Vol]Or dered By: Henok Bassett on 10-29-2022 MCHC (RBC) [Mass/Vol] 33.0 g/dL 32-36 [facility] No Panel InformationOrdered By: Henok Bassett on 10-29-2022 Estimated Creatinine Clearance Calc 96.86 ml/min [facility] Estimated GFR (MDRD) Amer 129 mL/min >60 [facility] Comment on above: GFR Calc Estimated GFR (MDRD) Non-Af Amer 107 mL/min >60 [facility] Comment on above: Non- GFR Calc Platelets bldOrdered By: Jagjit Bassett on 10-29-2022 Platelets (Bld) [#/Vol] 371 10*3/uL 150-450 [facility] Serum or plasma albumin erick urement (mass/volume)Ordered By: Henok Bassett on 10-29-2022 Albumin [Mass/Vol] 3.1 g/dL 3.2-5.0 [facility] Serum or plasma albumin/glob ulin mass ratioOrdered By: Henok Bassett on 10-29-2022 Albumin/Globulin [Mass ratio] 1.1 {ratio} 0.9-2.4 [facility] Serum or plasma calcium erick urement (mass/volume)Ordered By: Henok Bassett on 10-29-2022 Calcium [Mass/Vol] 8.1 mg/dL 8.5-10.1 [facility] Serum or plasma creatinine m easurement (mass/volume)Ordered By: Henok Bassett on 10-29-2022 Creatinine [Mass/Vol] 0.64 mg/dL 0.55-1.02 [facility] Comment on above: The validity of the calculated GFR & GFRAA in patients over 70 years has not been determined. Clinical correlation is essential. Serum or plasma urea nitroge n measurement (mass/volume)Ordered By: Henok Bassett on 10-29-2022 Urea nitrogen [Mass/Vol] 27 mg/dL 7-18 [facility] Thin prep Papanicolaou smear with manual screeningOrdered By: Henok Bassett on 10-29-2022 Thin prep Papanicolaou smear with manual screening 14 U/L 15-37 [facility] Thin prep Papanicolaou smear with manual screening 6 5-15 [facility] No Panel Informationon 05-16 Influenza Types A,B Rapid (Clinic) Negative [facility] POC SARS CoV-2 Antigen Negative [facility] CNOVon 03-13-2022 CNOV Office Visit (ENSUMN ) -------- CATHERINE BUI ([id number]) 1975 F Date Time Provider Department 03/13/22 11:30 AM EVANGELINA SAEED During your visit today, we recorded the following information about you: Pulse Blood pressure Weight Height 71/minute 142/85 94.3 kg 1.626 m Erica Calderon Ma 03/13/2022 11:10 AM Signed Thank you for choosing the [facility] Department of Endocrinology, Diabetes and Metabolism. Did you know that you need to call 48 hours in advance of your scheduled visit, if you are unable to make your appointment? The [facility]inology [facility] Met[facility] [place] thanks you for your commitment, because patients not showing to their appointment results in a lost opportunity for patients to receive [employer] health care at the [facility]. To Cancel an appointment, please choose one of the following: - Call the Appointment Call Center at [phone] - From [employer], Go to Appointments - Cancel Appts If cancelling, consider your need to reschedule to prevent further delays in your care. To Schedule an appointment, please choose one of the following: - Call the Appointment Call Center at [phone] - From [employer], Go to Appointments - Request an Appt Evangelina Saeed MD 03/13/2022 12:25 PM Signed Endocrinology Metabolism [place] Evangelina Saeed M.D. Section of Endocrine Surgery and Advanced Laparoscopic Surgery [address] [place] [address], [place] [address] ENDOCRINE SURGERY NEW CONSULTATION NAME: [facility] NO: [id number] : 1975 Surgeon: Dr. Evangelina Saeed REFERRING PROVIDER: Corey Rainey [id number] [place] [address] The patient was referred by the above [...] FLUID, FINE NEEDLE ASPIRATION, 10 OUTSIDE SLIDES, ([id number]), [place], [place], (01-08-21): Benign. Consistent with colloid nodule with cystic changes. B - SLIDE(S) - RIGHT THYROID NODULE FLUID, FINE NEEDLE ASPIRATION, 9 OUTSIDE SLIDES, ([id number]), [place], (05-14-2021): Non-diagnostic aspirate sample. Cyst Contents with rare groups of follicular cells (see comment). PMH: PAST MEDICAL HISTORY Diagnosis Date Adjustment disorder with depressed mood Migraine Nontoxic uninodular goiter LEFT PSH: PAST SURGICAL HISTORY Procedure Laterality Date DELIVERY ONLY 06-04-2001 , low cervical LAPAROSCOPY SURG CHOLECYSTECTOMY 2005 Cholecystectomy, lap LIG/TRNSXJ FLP TUBE ABDL/VAG APPR [...] symptoms:No. PHYSICAL EXAM: On physical exam, Catherine A Stair is well appearing, alert, and oriented and appears euthyroid. (more content not included)... Normal [facility] THYROID/PARATHYROID (POC) ENDO USE ONLYon 03-13-2022 [facility] OUTSIDE CYTOLOGY SLIDE REVIE Won 03-07-2022 CASE REPORT Normal [facility] Comment on above: Order Comment: Lucio louis Type: SLIDE Ordering Facility: [facility] Address: ATTN: LABORATORY, [place] [address] Result Comment: [facility] Cytology Report Case: [id number] Authorizing Provider: Evangelina Saede MD Collected: 03/07/2022 04:06 PM Ordering Location: [facility] Lab Main Received: 03/07/2022 04:00 PM Pathologist: Lenny Lopez MD Specimens: A) - SLIDE(S), RIGHT THYROID NODULE FLUID, FINE NEEDLE ASPIRATION, 10 OUTSIDE SLIDES, ([id number]), [place], [place], (01-08-21) B) - SLIDE(S), RIGHT THYROID NODULE FLUID, FINE NEEDLE ASPIRATION, 9 OUTSIDE SLIDES, ([id number]), [place], [place], (05-14-2021) Performed By: #### L [id number] #### [facility] CLIA [id number] [address] [place] [address] [place] CLINICAL HISTORY Thyroid nodule. Normal [facility] Comment on above: Order Comment: Lucio louis Type: SLIDE Ordering Facility: [facility] Address: ATTN: LABORATORY, [place] [address] Performed By: #### L [id number] #### [facility] CLIA [id number] [address] [place] [address] [place] DIAGNOSIS COMMENT B. The specimen show predominantly cyst contents with rare groups of bland appearing follicular cells. The number of follicular cell groups is insufficient for further evaluation. Clinical correlation with imaging studies is suggested. Normal [facility] Comment on above: Order Comment: Lucio louis Type: SLIDE Ordering Facility: [facility] Address: ATTN: [facility], [place] [address] Performed By: #### L [id number] #### [facility] CLIA [id number] [address] [place] [address] [place] FINAL DIAGNOSIS Normal [facility] Comment on above: Order Comment: Speci men Type: SLIDE Ordering Facility: [facility] Address: ATTN: LABORATORY, [place] [address] Result Comment: A - SLIDE(S) - RIGHT THYROID NODULE FLUID, FINE NEEDLE ASPIRATION, 10 OUTSIDE SLIDES, ([id number]), [facility] [place], [place], (01-08-21): Benign. Consistent with colloid nodule with cystic changes. B - SLIDE(S) - RIGHT THYROID NODULE FLUID, FINE NEEDLE ASPIRATION, 9 OUTSIDE SLIDES, ([id number]), [facility] [place], [place], (05-14-2021): Non-diagnostic aspirate sample. Cyst Contents with rare groups of follicular cells (see comment). Performed By: #### L [id number] #### [facility] CLIA [id number] [address] [place] [address] [place] FINAL PERFORMING LAB Normal [facility] Comment on above: Order Comment: Lucio louis Type: SLIDE Ordering Facility: [facility] Address: ATTN: LABORATORY, [place] [id number] Result Comment: Tech nical component, photolettering 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 screening performed at [facility], [facility] [place] [id number] CLIA# [id number] Diagnostic interpretation performed at [facility], [facility] [place] [id number] CLIA# [id number] Supervisor Fruit Grading: Nakul Felipe M.D. Performed By: #### L [id number] #### [facility] CLIA [id number] [address] [place] [address] [place] 03-06-2022 CNPN Telephone (ENDOMN) -------- CATHERINE BUI ([id number]) 1975 F Date Time Provider Department 03/06/22 COREY SPAIN ENDOMN During your visit today, we recorded the following information about you: Myronmago Jarrod 03/06/2022 9:08 AM Signed Uploaded labs from [facility] received on 02/21/2022 scanned into chart for review TSH results Nany Garay Size Stamper II [facility] Corey Rainey MD 03/08/2022 5:24 PM Signed [...] Encounter Status:Closed by COREY SPAIN on 03/08/22 [facility] [place] 03-05-2022 [place] Telephone (Spectrum5) -------- CATHERINE BUI ([id number]) 1975 F Date Time Provider Department 03/05/22 EVANGELINA SAEED During your visit today, we recorded the following information about you: Yelena Jiang 03/05/2022 4:10 PM Addendum 03/05/2022-INTAKE COMPLETED- US COMPLETED LOCALLY-TSH COMPLETED LOCALLY-REQUESTED SLIDES FROM [facility] AND SURGERY AND IMAGES FROM [place]. ENDOCRINE SURGERY PATIENT WORKSHEET Initial Call Date: March 05, 2022 Reason for Consult/ Referral: Thyroid Nodule PATIENT DEMOGRAPHICS Name: Catherine Bui CCF#: [id number] : 1975 AGE: [age] year old Contact Numbers: Home: (home) Work: There is no work phone number on file. PATIENT PHYSICIAN INFORMATION Referring Doctor: Address: Phone: Otolaryngology Nurse: Address: Phone: PCP: Luciano Nails MD [address] [place] [address] PAST TREATMENT Office notes: SEE [facility] Medications: NONE THAT APPLY Pre-Visit Testing STUDY/TEST DATE ORDERED/REQUESTED DATE RECEIVED/COMPLETED ENTIRE PANEL TSH COMPLETED LOCALLY-SCANNED INTO [facility] FREE T4 FREE T3 Imaging Reports: SEE [facility] CD of Images: SEE [facility] FNA: yes: 01/09,05/12 FNA Slides: Slides requested from outside facility (Date received: ) Has the patient ever had thyroid or parathyroid surgery before: Yes: Thyroid (Date: ? 2007) Operative Reports: [facility] Pathology Reports: [facility] Allergies As of Date: 03/05/2022 Noted [...] Status:Closed by YELENA JIANG on 03/05/22 [facility] No Panel Informationon 02-13 Thyroid Stimulating Hormone (TSH) 0.62 uIU/mL 0.358-3.74 [facility] Work Phone: [place] 12-27-2021 [facility] Telephone (ENDOMN) -------- CATHERINE BUI ([id number]) 1975 F Date Time Provider Department 12/27/21 COREY SPAIN During your visit today, we recorded the following information about you: Allergies As of Date: 12/27/2021 Noted Allergy Reaction PENICILLIN G 03/11/2005 2 - Rash Date Reviewed: 10/31/2016 Reviewed by: Stephane Egan LPN - Fully Assessed Reason for Visit: Appointment [186] Cmt: Called patient and left [facility] to call [phone] to schedule consultation with Dr. Kristofer rainey [...] Encounter Status:Closed by KURT VILLAGOMEZ on 12/27/21 [facility] Basophil percentageon 2021 Chloride [Moles/Vol] 105 mmol/L 98-107 [place] Work Phone: Glucose [Mass/Vol] 100 mg/dL 74-106 [facility] Work Phone: Comment on above: Fasting Glucose resu lt from 100 to 125 mg/dL suggests IMPAIRED HOMEOSTASIS per A.D.A. criteria. Potassium [Moles/Vol] 4.0 mmol/L 3.5-5.1 [facility] Work Phone: Sodium [Moles/Vol] 138 mmol/L 136-145 [facility] Work Phone: Laboratory - Chemistry and C hemistry - challengeon 12-26-2021 CO2 [Moles/Vol] 27.0 mmol/L 21.0-32.0 [facility] Work Phone: Urea nitrogen/Creatinine [Mass ratio] 17.8 mg/mg 10-20 [facility] Work Phone: No Panel Informationon 12-26 Estimated GFR (MDRD) Amer 195 mL/min >60 [facility] Work Phone: Comment on above: GFR Calc Estimated GFR (MDRD) Non-Af Amer 161 mL/min >60 [facility] Work Phone: Comment on above: Non- GFR Calc Serum or plasma calcium erick urement (mass/volume)on 12-26-2021 Calcium [Mass/Vol] 9.3 mg/dL 8.5-10.1 [facility] Work Phone: Serum or plasma creatinine m easurement (mass/volume)on 12-26-2021 Creatinine [Mass/Vol] 0.45 mg/dL 0.55-1.02 [facility] Work Phone: Comment on above: The validity of the calculated GFR & GFRAA in patients over 70 years has not been determined. Clinical correlation is essential. Serum or plasma urea nitroge n measurement (mass/volume)on 12-26-2021 Urea nitrogen [Mass/Vol] 8 mg/dL 7-18 [facility] Work Phone: Thin prep Papanicolaou smear with manual screeningon 12-26-2021 Thin prep Papanicolaou smear with manual screening 6 5-15 [facility] Work Phone: Absolute lymphocyte counton 11-21-2021 Lymphocytes Auto (Unsp spec) [#/Vol] 2.18 10*3/uL 0.83-4.51 [facility] Work Phone: Absolute reticulocyte counto n 11-21-2021 Reticulocytes (Bld) [#/Vol] 0.00 10*3/uL 0-5 [facility] Work Phone: Basophil percentageon 2021 Basophil percentage 3.5 mg/dL 2.5-4.9 [facility] Work Phone: Bilirubin [Mass/Vol] 0.40 mg/dL 0.20-1.00 [place] Work Phone: Comment on above: For patients on eltr ombopag therapy, use of Dimension [place] TBIL is not recommended. Chloride [Moles/Vol] 106 mmol/L 98-107 [facility] Work Phone: Cholesterol [Mass/Vol] 155 mg/dL <200 [facility] Work Phone: Comment on above: <200 mg/dL Desirable 200-240 mg/dL Borderline >240 mg/dL High Risk Glucose [Mass/Vol] 89 mg/dL 74-106 [facility] Work Phone: Neutrophils (Bld) [#/Vol] 4.7 10*3/uL 2.0-7.7 [facility] Work Phone: [phone] Potassium [Moles/Vol] 3.8 mmol/L 3.5-5.1 [facility] Work Phone: [phone] Protein [Mass/Vol] 7.7 g/dL 6.4-8.2 [facility] Work Phone: [phone] Sodium [Moles/Vol] 140 mmol/L 136-145 [facility] Work Phone: [phone] Triglyceride [Mass/Vol] 77 mg/dL <199 [facility] Work Phone: Comment on above: The drugs N-Acetylcy steine and Metamizole may falsely depress this assay.Serum Triglycerides Reference Interval Normal <150 mg/dL Borderline high 150 - 199 mg/dL High 200 - 499 mg/dL Very High > or = 500 mg/dL WBC (Bld) [#/Vol] 7.5 10*3/uL 4.4-11.0 [facility] Work Phone: Bilirubin Test strip Ql (U)o n 11-21-2021 Bilirubin Ql (U) Negative Negative [facility] Work Phone: Blood erythrocytes count (nu mber/volume)on 11-21-2021 RBC (Bld) [#/Vol] 4.82 10*6/uL 4.2-5.4 [facility] Work Phone: Blood hemoglobin measurement (mass/volume)on 11-21-2021 Hemoglobin (Bld) [Mass/Vol] 14.8 g/dL 12.0-15.0 [facility] Work Phone: [phone] Blood platelet mean volumeon 11-21-2021 Platelet mean volume (Bld) [Entitic vol] 10.4 fL 6.2-12.0 [facility] Work Phone: Determination of erythrocyte mean corpuscular volume (MCV)on 11-21-2021 MCV (RBC) [Entitic vol] 92.3 fL 81-99 [facility] Work Phone: Direct bilirubinon Bilirubin.direct [Mass/Vol] 0.13 mg/dL 0.00-0.30 [facility] Work Phone: [phone] Hematocrit Auto (Bld) [Volum e fraction]on 11-21-2021 Hematocrit (Bld) [Volume fraction] 44.5 % 37-47 [facility] Work Phone: [phone] Iron measurement (mass/mass) on 11-21-2021 Iron (Unsp spec) [Mass/Mass] 75 ug/dL 50-170 [facility] Work Phone: Ketones Test strip Ql (U)on 11-21-2021 Ketones Ql (U) Negative Negative [facility] Work Phone: [phone] Laboratory - Chemistry and C hemistry - challengeon 11-21-2021 ALP [Catalytic activity/Vol] 75 U/L 45-117 [facility] Work Phone: [phone] ALT [Catalytic activity/Vol] 32 U/L 13-56 [facility] Work Phone: [phone] Cholesterol.total/Choles terol in HDL [Mass ratio] 2.70 {ratio} [facility] Work Phone: [phone] CO2 [Moles/Vol] 30.0 mmol/L 21.0-32.0 [facility] Work Phone: [phone] Cobalamin (Vitamin B12) [Mass/Vol] 1316 pg/mL 211-911 [facility] Work Phone: [phone] Globulin (S) [Mass/Vol] 3.8 g/dL 2.2-4.2 [facility] Work Phone: [phone] Urea nitrogen/Creatinine [Mass ratio] 17.4 mg/mg 10-20 [facility] Work Phone: [phone] Laboratory - Hematology and Cell countson 11-21-2021 Erythrocyte distribution width (RBC) [Entitic vol] 41.7 fL 35.1-43.9 [facility] Work Phone: [phone] Erythrocyte distribution width (RBC) [Ratio] 12.3 % 11.6-14.6 [facility] Work Phone: MCH (RBC) [Entitic mass] 30.7 pg 27.0-32.0 [facility] Work Phone: Nucleated RBC/100 WBC (Bld) [Ratio] 0 % 0-5 [facility] Work Phone: MCHC Auto (RBC) [Mass/Vol]on 11-21-2021 MCHC (RBC) [Mass/Vol] 33.3 g/dL 32-36 [facility] Work Phone: Nitrite Test strip Ql (U)on 11-21-2021 Nitrite Ql (U) Negative Negative [facility] Work Phone: No Panel Informationon 11-21 Estimated GFR (MDRD) Amer 166 mL/min >60 [facility] Work Phone: Comment on above: GFR Calc Estimated GFR (MDRD) Non-Af Amer 137 mL/min >60 [facility] Work Phone: Comment on above: Non- GFR Calc Total Iron Binding Capacity 312 ug/dL 250-450 [facility] Work Phone: Vitamin D 25-Hydroxy 67.0 ng/mL [facility] Work Phone: Comment on above: Vitamin D 25(OH) Sta tus Range Deficiency <20 ng/mL (50nmol/L) Insufficiency 20 - 30 ng/mL (50 - 75 nmol/L) Sufficiency 30 - 100 ng/mL (75 - 250 nmol/L) Toxicity >100 ng/mL (>250 nmol/L) Platelets bldon 11-21-2021 Platelets (Bld) [#/Vol] 328 10*3/uL 150-450 [facility] Work Phone: Protein Test strip Ql (U)on 11-21-2021 Protein Ql (U) Negative Negative [facility] Work Phone: Segmented neutrophils/100 WB C Auto (Bld)on 11-21-2021 Segmented neutrophils/100 WBC (Bld) 61.8 % 47-70 [facility] Work Phone: Serum or plasma albumin eirck urement (mass/volume)on 11-21-2021 Albumin [Mass/Vol] 3.9 g/dL 3.2-5.0 [facility] Work Phone: Serum or plasma albumin/glob ulin mass ratioon 11-21-2021 Albumin/Globulin [Mass ratio] 1.0 {ratio} 0.9-2.4 [facility] Work Phone: Serum or plasma calcium erick urement (mass/volume)on 11-21-2021 Calcium [Mass/Vol] 8.7 mg/dL 8.5-10.1 [facility] Work Phone: Serum or plasma cholesterol in HDL measurement (mass/volume)on 11-21-2021 Cholesterol in HDL [Mass/Vol] 57 mg/dL >40 [facility] Work Phone: Comment on above: The drugs N-Acetylcy steine and Metamizole may falsely depress this assay. Reference Range HDL <40 mg/dL Low HDL Cholesterol HDL >or= 60 mg/dL High HDL Cholesterol Serum or plasma cholesterol in VLDL measurement (mass/volume)on 11-21-2021 Cholesterol in VLDL [Mass/Vol] 15 mg/dL 5-40 [facility] Work Phone: Serum or plasma creatinine m easurement (mass/volume)on 11-21-2021 Creatinine [Mass/Vol] 0.52 mg/dL 0.55-1.02 [facility] Work Phone: Comment on above: The validity of the calculated GFR & GFRAA in patients over 70 years has not been determined. Clinical correlation is essential. Serum or plasma iron saturat ion measurement (mass fraction)on 11-21-2021 Iron saturation [Mass fraction] 24.0 % 15.0-55.0 [facility] Work Phone: Serum or plasma low density lipoprotein (LDL) cholesterol measurement (mass/volume)on 11-21-2021 Cholesterol in LDL [Mass/Vol] 83 mg/dL 0-130 [facility] Work Phone: Serum or plasma urea nitroge n measurement (mass/volume)on 11-21-2021 Urea nitrogen [Mass/Vol] 9 mg/dL 7-18 [facility] Work Phone: Serum or plasma uric acid me asurement (mass/volume)on 11-21-2021 Urate [Mass/Vol] 3.8 mg/dL 2.6-6.0 [facility] Work Phone: Comment on above: The drugs N-Acetylcy steine and Metamizole may falsely depress this assay. Thin prep Papanicolaou smear with manual screeningon 11-21-2021 Thin prep Papanicolaou smear with manual screening 21 U/L 15-37 [facility] Work Phone: Thin prep Papanicolaou smear with manual screening 4 5-15 [facility] Work Phone: Thin prep Papanicolaou smear with manual screening 168 U/L 84-246 [facility] Work Phone: Urine blood detectionon 08-0 RBC Ql (U) 25 /ul Negative [facility] Work Phone: Urine clarityon 11-21-2021 Clarity (U) Sl. Cloudy Clear [facility] Work Phone: Urine color determinationon 11-21-2021 Color (U) Yellow Yellow [facility] Work Phone: Urine glucose detectionon Glucose Ql (U) Normal mg/dl Normal [facility] Work Phone: [phone] Urine leukocyte esterase det ection by dipstickon 11-21-2021 Leukocyte esterase Test strip Ql (U) Negative Negative [facility] Work Phone: [phone] Urine pHon 11-21-2021 pH (U) 7.0 [pH] 5.0 - 8.0 [facility] Work Phone: Urine specific gravity measu rementon 11-21-2021 Specific gravity (U) [Rel density] 1.005 1.002-1.030 [facility] Work Phone: Urobilinogen Auto test strip Ql (U)on 11-21-2021 Urobilinogen Ql (U) Normal mg/dl Normal [facility] Work Phone: ZINC [CCL]on 01-25-2019 Zinc 66 ug/dL Normal 55-150 [facility] Comment on above: Result Comment: This test was developed and its performance characteristics determined by [facility] [place] ([facility]). It has not been cleared or approved by the FDA. [facility] is regulated under CLIA as qualified to perform high complexity testing. This test is used for clinical purposes. It should not be regarded as investigational or [place] [address] Marcia Mora M.D. [id number] Performed By: #### 2 76182 #### [address] [address] [place] 01-25-2019 Zinc 66 ug/dL Normal 55-150 [facility] Comment on above: Performed By: #### Z INC #### [facility] Chemistry [address] [place] [address] Folate, Serumon 01-23-2019 Folate [Mass/Vol] 19.9 ng/mL Normal >4.7 [facility] Comment on above: Performed By: #### S ERFOL #### [facility] Routine Lab [address] [place] [address] Result Comment: [facility] [place] [address] Marcia Mora M.D. [id number] Performed By: #### 2 92902 #### [address] [address] CBC + DIFFon 01-22-2019 Basophils (Bld) [#/Vol] 0.10 x10EE3/UL Normal 0.00 - 0 .10 [facility] Comment on above: Performed By: #### 2 48685 #### [facility],[address] [place], [place] [id number] Basophils/100 WBC (Bld) 0.7 % Normal 0.0 - 2.0 [facility] Comment on above: Performed By: #### 2 93586 #### [facility],[address] [place] [address] CBC + DIFF Normal [facility] Comment on above: Result Comment: CBC- COMPLETE BLOOD COUNT Performed By: #### 2 22193 #### [facility],[address] [place] [address] Eosinophils (Bld) [#/Vol] 0.30 x10EE3/UL Normal 0.00 - 0.50 [facility] Comment on above: Performed By: #### 2 83720 #### [facility],[address] [place], [place] [address] Eosinophils/100 WBC (Bld) 3.6 % Normal 0.0 - 7.0 [facility] Comment on above: Performed By: #### 2 51330 #### [place] [address] Erythrocyte distribution width (RBC) [Ratio] 15.2 % Normal 12.0 - 15.6 [facility] Comment on above: Performed By: #### 2 12944 #### [facility],[address] [place] [address] Hematocrit (Bld) [Volume fraction] 34.3 % Normal 34.0 - 46.0 [facility] Comment on above: Performed By: #### 2 26318 #### [facility],[address] [place], [place] [address] Hemoglobin (Bld) [Mass/Vol] 11.5 g/dL Low 12.0 - 16.0 [facility] Comment on above: Performed By: #### 2 80318 #### [facility] [place] [address] Lymphocytes (Bld) [#/Vol] 2.60 x10EE3/UL Normal 0.80 - 2.80 [facility] Comment on above: Performed By: #### 2 47192 #### [facility],[address] [place] [address] Lymphocytes/100 WBC (Bld) 30.5 % Normal 20.0 - 45.0 [facility] Comment on above: Performed By: #### 2 91853 #### [facility],[address] [place] [address] MANUAL DIFF N/A Normal [facility] Comment on above: Performed By: #### 2 56065 #### [facility],[address] [place] [address] MCH (RBC) [Entitic mass] 27 pg Normal 27 - 33 [facility] Comment on above: Performed By: #### 2 58712 #### [facility],[address] [place] [address] MCHC (RBC) [Mass/Vol] 34 X10 3 Normal 32 - 36 [facility] Comment on above: Performed By: #### 2 73529 #### [facility],[address] [place] [address] MCV (RBC) [Entitic vol] 80 fL Normal 80 - 99 [facility] Comment on above: Performed By: #### 2 86425 #### [facility],[address] [place] [address] Monocytes (Bld) [#/Vol] 0.60 x10EE3/UL Normal 0.20 - 1 .00 [facility] Comment on above: Performed By: #### 2 69263 #### [facility],[address] [place] [address] MONOS % 7.2 % Normal 0.0 - 10.0 [facility] Comment on above: Performed By: #### 2 31215 #### [facility],[address] [place] [address] Morphology Vinny (Bld) [Interp] N/A Normal [facility] Comment on above: Performed By: #### 2 42320 #### [facility],[address] [place] [address] Neutrophils (Bld) [#/Vol] 4.90 x10EE3/UL Normal 1.50 - 7.10 [facility] Comment on above: Performed By: #### 2 34331 #### [facility],[address] [place] [address] Neutrophils/100 WBC (Bld) 58.0 % Normal 46.0 - 76.0 [facility] Comment on above: Performed By: #### 2 06305 #### [facility],[address] [place] [address] Platelet mean volume (Bld) [Entitic vol] 9.1 fL Normal 6.6 - 10.5 [facility] Comment on above: Result Comment: AUTO MATED DIFFERENTIAL Performed By: #### 2 17979 #### [facility],[address] [place] [address] Platelets (Bld) [#/Vol] 311 x10EE3/UL Normal 150 - 450 [facility] Comment on above: Performed By: #### 2 45968 #### [facility],[address] [place] [address] RBC (Bld) [#/Vol] 4.32 x 10EE6/UL Normal 4.10 - 5.30 [facility] Comment on above: Performed By: #### 2 66387 #### [facility],[address] [place] [address] WBC (Bld) [#/Vol] 8.4 x 10EE3/UL Normal 4.5 - 10.8 [facility] Comment on above: Performed By: #### 2 52595 #### [facility],[address] [place] [address] CMP with eGFRon 01-22-2019 Age - Reported 43 years Normal [facility] Comment on above: Performed By: #### 2 41198 #### [facility],[address] [place] [address] Albumin [Mass/Vol] 4.1 g/dL Normal 3.4 - 4.8 [facility] Comment on above: Performed By: #### 2 53525 #### [facility],[address] [place] [address] Albumin/Globulin [Mass ratio] 1.3 {ratio} Normal 0.9 - 1.6 [facility] Comment on above: Performed By: #### 2 33019 #### [facility],[address] [place] [address] ALK PHOS 56 U/L Normal 38 - 126 [facility] Comment on above: Performed By: #### 2 26555 #### [facility],[address] [place] [address]55 ALT/SGPT 35 U/L Normal 8 - 35 [facility] Comment on above: Performed By: #### 2 18743 #### [facility],[address] [place] [address] Anion gap [Moles/Vol] 13 mmol/L Normal 10 - 20 [facility] Comment on above: Performed By: #### 2 60347 #### [facility],[address] [place] [address] AST/SGOT 36 U/L Normal 13 - 39 [facility] Comment on above: Performed By: #### 2 98595 #### [facility],[address] [place] [address] B/C RATIO 20 ratio Normal 0 - 30 [facility] Comment on above: Performed By: #### 2 41597 #### [facility],[address] [place] [address] Bilirubin [Mass/Vol] 0.3 mg/dL Normal 0.0 - 1.5 [facility] Comment on above: Performed By: #### 2 18550 #### [facility],[address] [place] [address] Calcium [Mass/Vol] 9.5 mg/dL Normal 8.6 - 10.2 [facility] Comment on above: Performed By: #### 2 74449 #### [facility],[address] [place] [address] Chloride [Moles/Vol] 103 mmol/L Normal 98 - 107 [facility] Comment on above: Performed By: #### 2 92215 #### [facility],[address] [place] [address] CO2 [Moles/Vol] 25.9 mmol/L Normal 21.0 - 31.0 [facility] Comment on above: Performed By: #### 2 61866 #### [facility],[address] [place] [address] Creatinine [Mass/Vol] 0.5 mg/dL Low 0.6 - 1.2 [facility] Comment on above: Performed By: #### 2 29747 #### [facility],[address] [place] [address] GFR/1.73 sq M predicted among non-blacks MDRD (S/P/Bld) [Vol rate/Area] mL/min/{1.73_m2} Normal 60 - 999 [facility] Comment on above: Result Comment: ACCO RDING TO THE NATIONAL KIDNEY DISEASE EDUCATION PROGRAM(NKDE), A NORMAL eGFR IS A VALUE GREATER THAN OR EQUAL TO 60 ML/MIN/1.73 SQ METERS. CHRONIC KIDNEY DISEASE: <60mL/MIN/1.73 SQ METERS KIDNEY FAILURE: <15mL/MIN/1.73 SQ METERS THIS TEST SHOULD ONLY BE USED FOR PATIENTS 18 YEARS OF AGE AND OLDER. Performed By: #### 2 69548 #### [facility],[address] [place] [address] GFR/1.73 sq M predicted among non-blacks MDRD (S/P/Bld) [Vol rate/Area] Normal [facility] Comment on above: Result Comment: COMP REHENSIVE METABOLIC PANEL Performed By: #### 2 66151 #### [facility],[address] [place] [address] Globulin (S) [Mass/Vol] 3.2 g/dL Normal 1.5 - 3.8 [facility] Comment on above: Performed By: #### 2 50320 #### [facility],[address] [place] [address] Glucose [Mass/Vol] 101 mg/dL Normal 74 - 106 [facility] Comment on above: Performed By: #### 2 56348 #### [facility],[address] [place] [address] Potassium [Moles/Vol] 3.0 mmol/L Low 3.5 - 5.1 [facility] Comment on above: Performed By: #### 2 23216 #### [address] [address] Protein [Mass/Vol] 7.3 g/dL Normal 6.4 - 8.3 [facility] Comment on above: Performed By: #### 2 42110 #### [facility],[address] [place] [address] Sodium [Moles/Vol] 139 mmol/L Normal 136 - 145 [facility] Comment on above: Performed By: #### 2 62555 #### [address] [address] Urea nitrogen [Mass/Vol] 10 mg/dL Normal 6 - 20 [facility] Comment on above: Performed By: #### 2 18530 #### [address] [address] FERRITINon 01-22-2019 Ferritin [Mass/Vol] 26 ng/mL Normal 10 - 291 [facility] Comment on above: Performed By: #### 2 69269 #### [facility],[address] [place] [address] IRONon 01-22-2019 Iron [Mass/Vol] 40 ug/dL Low 50 - 170 [facility] Comment on above: Performed By: #### 2 00068 #### [facility],[address] [place] [address] MAGNESIUMon 01-22-2019 Magnesium [Mass/Vol] 2.0 mg/dL Normal 1.6 - 2.6 [facility] Comment on above: Performed By: #### 2 43896 #### [facility],[address] [place] [address]666 VITAMIN B-12on 01-22-2019 Cobalamin (Vitamin B12) [Mass/Vol] 1018 pg/mL High 180 - 914 [facility] Comment on above: Performed By: #### 2 69372 #### [facility],[address] [place] [address] Basic Metabolic Panelon 12-20 Anion gap [Moles/Vol] 9 Normal [facility] Comment on above: Performed By: #### B GLU #### [facility] [address] [place] [address] Calcium [Mass/Vol] 8.2 mg/dL Low 8.4-10.4 [facility] Comment on above: Performed By: #### B GLU #### [facility] [address] [place] [address] CO2 [Moles/Vol] 25 mmol/L Normal 22-30 [facility] Comment on above: Performed By: #### B GLU #### [facility] [address] [place] [address] Glucose [Mass/Vol] 89 mg/dL Normal 70-100 [facility] Comment on above: Performed By: #### B GLU #### [facility] [address] [place], [place] Urea nitrogen [Mass/Vol] 14 mg/dL Normal 7-20 [facility] Comment on above: Performed By: #### B GLU #### [place] [address] [address] [place], [place] Creatinine [Mass/Vol] 0.74 mg/dL Normal 0.52-1.25 [facility] Comment on above: Performed By: #### B GLU #### [place] [address] [address] [place], [place] GFR/1.73 sq M predicted among blacks MDRD (S/P/Bld) [Vol rate/Area] mL/min/{1.73_m2} Normal >60 [facility] Comment on above: Performed By: #### B GLU #### [place] [address] [address] [place], [place] GFR/1.73 sq M predicted among non-blacks MDRD (S/P/Bld) [Vol rate/Area] mL/min/{1.73_m2} Normal >60 [facility] Comment on above: Result Comment: Sour ce- MDRD equation with creatinine calibration to IDMS(NKDEP) eGFR not recommended for drug dose adjustment Performed By: #### B GLU #### [place] [address] [address] [place] Chloride [Moles/Vol] 102 mmol/L Normal 98-107 [facility] Comment on above: Performed By: #### B GLU #### [place] [address] [address] [place] Potassium [Moles/Vol] 3.7 mmol/L Normal 3.5-5.1 [facility] Comment on above: Performed By: #### B GLU #### [place] [address] [address] [place] Sodium [Moles/Vol] 137 mmol/L Normal 135-145 [facility] Comment on above: Performed By: #### B GLU #### [place] [address] [address] [place], [place] Basic Metabolic Panel w/ Ref felicitas to MGon 12-30-2018 Anion gap [Moles/Vol] 9 mmol/L [facility] [place] [place] Calcium [Mass/Vol] 8.2 mg/dL Low 8.4 - 10. 4 mg/dL [place] Chloride [Moles/Vol] 102 mmol/L 98 - 10 7 mmol/L [place] CO2 [Moles/Vol] 25 mmol/L 22 - 30 mmol/L [place] Creatinine [Mass/Vol] 0.74 mg/dL 0.52 - 1.25 mg/dL [place] EGFR IF NonAfrican [place] >60.0 >60 mL/min [place] Comment on above: Source- MDRD equatio n with creatinine calibration to IDMS(NKDEP) eGFR not recommended for drug dose adjustment GFR/1.73 sq M predicted among blacks MDRD (S/P/Bld) [Vol rate/Area] mL/min/{1.73_m2} >60 mL/min [place] Glucose [Mass/Vol] 89 mg/dL 70 - 100 mg/dL [place] Interpretation and review of laboratory results Abnormal [place] Potassium [Moles/Vol] 3.7 mmol/L 3.5 - 5.1 mmol/L [place] Sodium [Moles/Vol] 137 mmol/L 135 - 145 mmol/L [place] Urea nitrogen [Mass/Vol] 14 mg/dL 7 - 20 mg/d L [place] Test Performed by [facility], [address] [place] [id number] [place] [address] CBC Auto Differentialon 12-20 Absolute Baso # 0.1 10*3/uL 0 - 0.2 10*3/uL [place] Absolute Neut # 6.8 10*3/uL 1.8 - 7 10*3/uL [place] Basophils/100 WBC (Bld) 0.9 % 0 - 2 % [place] Eosinophils (Bld) [#/Vol] 0.2 10*3/uL 0 - 0.5 10*3/uL [place] Eosinophils/100 WBC (Bld) 2.2 % 1 - 6 % [place] Erythrocyte distribution width (RBC) [Ratio] 15.5 % High 11.5 - 14.5 % [place] Granulocytes/100 WBC (Bld) 67.8 % 40 - 80 % [place] Hematocrit (Bld) [Volume fraction] 31.3 % Low 35 - 47 % [place] Hemoglobin (Bld) [Mass/Vol] 10.6 g/dL Low 11.7 - 16 g/dL [place] Interpretation and review of laboratory results Abnormal [place] Lymphocytes (Bld) [#/Vol] 2.2 10*3/uL 1 - 4.3 10*3/uL [place] Lymphocytes/100 WBC (Bld) 21.6 % 20 - 40 % [place] MCH (RBC) [Entitic mass] 27.6 pg 26 - 34 pg [place] MCHC (RBC) [Mass/Vol] 33.8 % 32 - 36 % [place] MCV (RBC) [Entitic vol] 81.8 fL 79 - 98 fL [place], [place] Monocytes (Bld) [#/Vol] 0.8 10*3/uL 0 - 0.8 10*3/uL [place] Monocytes/100 WBC (Bld) 7.5 % 2 - 10 % [place] Platelet mean volume (Bld) [Entitic vol] 8.7 fL 7.4 - 10.4 fL [place] Platelets (Bld) [#/Vol] 230 10*3/uL 140 - 440 10*3/uL [place] RBC (Bld) [#/Vol] 3.83 10*6/uL 3.8 - 5.2 10*6/uL [place] WBC (Bld) [#/Vol] 10.0 10*3/uL 3.6 - 10.7 10*3/uL [place] Test Performed by [facility], [address] [place] [id number] [place] [address] Glucose,Bedsideon 12-30-2018 Glucose [Mass/Vol] 104 mg/dL High 70-100 [facility] Comment on above: Result Comment: Test performed by glucose meter. Results may be 10%-15% lower than serum/plasma values. (CLIA ID [id number]) Performed By: #### B GLU ####[place] [address] [place] [address] Glucose [Mass/Vol] 91 mg/dL Normal 70-100 [facility] Comment on above: Result Comment: Test performed by glucose meter. Results may be 10%-15% lower than serum/plasma values. (CLIA ID [id number]) Performed By: #### B GLU ####[place] [address] [place] [address] Glucose [Mass/Vol] 95 mg/dL Normal 70-100 [facility] Comment on above: Result Comment: Test performed by glucose meter. Results may be 10%-15% lower than serum/plasma values. (CLIA ID [id number]) Performed By: #### B GLU #### [facility] [address] [place] [address] Hemogram w/ Autodiffon 12-30 Abs Baso Cnt 0.1 10*3/uL Normal 0.0-0.2 [facility] Comment on above: Performed By: #### B GLU #### [facility] [address] [place] [address] Abs Neutrophile Cnt 6.8 10*3/uL Normal 1.8-7.0 [facility] Comment on above: Performed By: #### B GLU #### [facility] [address] [place] [address] Basophils/100 WBC (Bld) 0.9 % Normal 0.0-2.0 [facility] Comment on above: Performed By: #### B GLU #### [place] [address] [place] [address] Eosinophils (Bld) [#/Vol] 0.2 10*3/uL Normal 0.0-0.5 [facility] Comment on above: Performed By: #### B GLU #### [place] [address] [address] [place] Eosinophils/100 WBC (Bld) 2.2 % Normal 1.0-6.0 [facility] Comment on above: Performed By: #### B GLU #### [place] [address] [address] [place] Erythrocyte distribution width (RBC) [Ratio] 15.5 % High 11.5-14.5 [facility] Comment on above: Performed By: #### B GLU #### [place] [address] [address] [place] Granulocytes/100 WBC (Bld) 67.8 % Normal 40.0-80.0 [facility] Comment on above: Performed By: #### B GLU #### [address] Hematocrit (Bld) [Volume fraction] 31.3 % Low 35.0-47.0 [facility] Comment on above: Performed By: #### B GLU #### [place] [address] [address] [place] Hemoglobin (Bld) [Mass/Vol] 10.6 g/dL Low 11.7-16.0 [facility] Comment on above: Performed By: #### B GLU #### [address] Lymphocytes (Bld) [#/Vol] 2.2 10*3/uL Normal 1.0-4.3 [facility] Comment on above: Performed By: #### B GLU #### [place] [address] [address] [place] Lymphocytes/100 WBC (Bld) 21.6 % Normal 20.0-40.0 [facility] Comment on above: Performed By: #### B GLU #### [address] [place] MCH (RBC) [Entitic mass] 27.6 pg Normal 26.0-34.0 [facility] Comment on above: Performed By: #### B GLU #### [place] [address] [address] [place] MCHC (RBC) [Mass/Vol] 33.8 % Normal 32.0-36.0 [facility] Comment on above: Performed By: #### B GLU #### [facility] [address] [place], [place] MCV (RBC) [Entitic vol] 81.8 fL Normal 79.0-98.0 [facility] Comment on above: Performed By: #### B GLU #### [place] [address] [address] [place] Monocytes (Bld) [#/Vol] 0.8 10*3/uL Normal 0.0-0.8 [facility] Comment on above: Performed By: #### B GLU #### [place] [address] [address] [place] Monocytes/100 WBC (Bld) 7.5 % Normal 2.0-10.0 [facility] Comment on above: Performed By: #### B GLU #### [place] [address] [address] [place] Platelet mean volume (Bld) [Entitic vol] 8.7 fL Normal 7.4-10.4 [facility] Comment on above: Performed By: #### B GLU #### [place] [address] [address] [place] Platelets (Bld) [#/Vol] 230 10*3/uL Normal 140-440 [facility] Comment on above: Performed By: #### B GLU #### [place] [address] [address] [place] RBC (Bld) [#/Vol] 3.83 10*6/uL Normal 3.80-5.20 [facility] Comment on above: Performed By: #### B GLU #### [place] [address] [address] [place] WBC (Bld) [#/Vol] 10.0 10*3/uL Normal 3.6-10.7 [facility] Comment on above: Performed By: #### B GLU #### [place] [address] [place] [address] POCT Glucoseon 12-30-2018 Glucose [Mass/Vol] 104 mg/dL High 70 - 100 mg/dL [place] Comment on above: Test performed by gl ucose meter. Results may be 10%-15% lower than serum/plasma values. (CLIA ID [id number]) Interpretation and review of laboratory results Abnormal [place] Test Performed by [facility], [facility] [address] [place], [place] [address] [place] [address] Glucose [Mass/Vol] 91 mg/dL 70 - 100 mg/dL [place] Comment on above: Test performed by gl ucose meter. Results may be 10%-15% lower than serum/plasma values. (CLIA ID [id number]) Test Performed by [facility], [address] [place], [place] [id number] [place] [address] Glucose [Mass/Vol] 95 mg/dL 70 - 100 mg/dL [place] Comment on above: Test performed by gl ucose meter. Results may be 10%-15% lower than serum/plasma values. (CLIA ID [id number]) Test Performed by [facility], [facility] [address] [place], [place] [id number] [place] [address] Basic Metabolic Panelon 12-20 Anion gap [Moles/Vol] 8 Normal [facility] Comment on above: Performed By: #### B GLU #### [facility] [address] [place] Calcium [Mass/Vol] 8.4 mg/dL Normal 8.4-10.4 [facility] Comment on above: Performed By: #### B GLU #### [facility] [address] [place] CO2 [Moles/Vol] 24 mmol/L Normal 22-30 [facility] Comment on above: Performed By: #### B GLU #### [facility] [address] [place] Glucose [Mass/Vol] 127 mg/dL High 70-100 [facility] Comment on above: Performed By: #### B GLU #### [place] [address] [address] [place] Urea nitrogen [Mass/Vol] 13 mg/dL Normal 7-20 [facility] Comment on above: Performed By: #### B GLU #### [facility] [address] [place] Creatinine [Mass/Vol] 0.70 mg/dL Normal 0.52-1.25 [facility] Comment on above: Performed By: #### B GLU #### [place] [address] [address] [place] GFR/1.73 sq M predicted among blacks MDRD (S/P/Bld) [Vol rate/Area] mL/min/{1.73_m2} Normal >60 [facility] Comment on above: Performed By: #### B GLU #### [place] [address] [address] [place] GFR/1.73 sq M predicted among non-blacks MDRD (S/P/Bld) [Vol rate/Area] mL/min/{1.73_m2} Normal >60 [facility] Comment on above: Result Comment: Sour ce- MDRD equation with creatinine calibration to IDMS(NKDEP) eGFR not recommended for drug dose adjustment Performed By: #### B GLU #### [place] [address] [place] Potassium [Moles/Vol] 4.4 mmol/L Normal 3.5-5.1 [facility] Comment on above: Performed By: #### B GLU #### [place] [address] [address] [place] Sodium [Moles/Vol] 137 mmol/L Normal 135-145 [facility] Comment on above: Performed By: #### B GLU #### [place] [address] [address] [place] Chloride [Moles/Vol] 104 mmol/L Normal 98-107 [facility] Comment on above: Performed By: #### B GLU #### [place] [address] [address] [place] Basic Metabolic Panel w/ Ref felicitas to MGon 12-29-2018 Anion gap [Moles/Vol] 8 mmol/L [place] Calcium [Mass/Vol] 8.4 mg/dL 8.4 - 10. 4 mg/dL [place] Chloride [Moles/Vol] 104 mmol/L 98 - 10 7 mmol/L [place] CO2 [Moles/Vol] 24 mmol/L 22 - 30 mmol/L [place] Creatinine [Mass/Vol] 0.7 mg/dL 0.52 - 1.25 mg/dL [place] EGFR IF NonAfrican [place] >60.0 >60 mL/min [place] Comment on above: Source- MDRD equatio n with creatinine calibration to IDMS(NKDEP) eGFR not recommended for drug dose adjustment GFR/1.73 sq M predicted among blacks MDRD (S/P/Bld) [Vol rate/Area] mL/min/{1.73_m2} >60 mL/min [place] Glucose [Mass/Vol] 127 mg/dL High 70 - 100 mg/dL [place] Interpretation and review of laboratory results Abnormal [place] Potassium [Moles/Vol] 4.4 mmol/L 3.5 - 5.1 mmol/L [place] Sodium [Moles/Vol] 137 mmol/L 135 - 145 mmol/L [place] Urea nitrogen [Mass/Vol] 13 mg/dL 7 - 20 mg/d L [place] CBC auto differentialon 12-20 Absolute Baso # 0.1 10*3/uL 0 - 0.2 10*3/uL [place] Absolute Neut # 13.1 10*3/uL High 1.8 - 7 10*3/uL [place] Basophils/100 WBC (Bld) 0.4 % 0 - 2 % [place] Eosinophils (Bld) [#/Vol] 0.0 10*3/uL 0 - 0.5 10*3/uL [place] Eosinophils/100 WBC (Bld) 0.1 % Low 1 - 6 % [place] Erythrocyte distribution width (RBC) [Ratio] 15.4 % High 11.5 - 14.5 % [place] Granulocytes/100 WBC (Bld) 83.3 % High 40 - 80 % [place] Hematocrit (Bld) [Volume fraction] 32.7 % Low 35 - 47 % [place] Hemoglobin (Bld) [Mass/Vol] 11.1 g/dL Low 11.7 - 16 g/dL [place] Interpretation and review of laboratory results Abnormal [place] Lymphocytes (Bld) [#/Vol] 1.6 10*3/uL 1 - 4.3 10*3/uL [place] Lymphocytes/100 WBC (Bld) 9.9 % Low 20 - 40 % [place] MCH (RBC) [Entitic mass] 27.6 pg 26 - 34 pg [place] MCHC (RBC) [Mass/Vol] 34.0 % 32 - 36 % [place] MCV (RBC) [Entitic vol] 81.3 fL 79 - 98 fL [place], [place] Monocytes (Bld) [#/Vol] 1.0 10*3/uL High 0 - 0.8 10*3/uL [place] Monocytes/100 WBC (Bld) 6.3 % 2 - 10 % [place] Platelet mean volume (Bld) [Entitic vol] 8.7 fL 7.4 - 10.4 fL [place] Platelets (Bld) [#/Vol] 254 10*3/uL 140 - 440 10*3/uL [place] RBC (Bld) [#/Vol] 4.02 10*6/uL 3.8 - 5.2 10*6/uL [place] WBC (Bld) [#/Vol] 15.8 10*3/uL High 3.6 - 10.7 10*3/uL [place] Test Performed by [facility], [address] [place] [address], [place] [address] [facility] [place] 12-29-2018 [facility] Incoming Radiology Results From [facility] - 12/29/2018 10:16 AM EDT Patient Name: CATHERINE BUI ---Fluoroscopy--- Exam Date/Time 12/29/2018 07:52:14 EDT Exam RF UGI w/o KUB & w/ or w/o Delay Flm Ordering Physician Jennifer RODRIGUEZ, ALEN KITCHEN Accession Number [id number] CTP4 Codes 91742 () Reason For Exam s/p LRYGB Report [...] RISA Transcribed Date and Time: 12/29/2018 10:14 [place] Patient Name: CATHERINE BUI ---Fluoroscopy--- Exam Date/Time 12/29/2018 07:52:14 EDT Exam RF UGI w/o KUB & w/ or w/o Delay Fl Ordering Physician Jennifer RODRIGUEZ JUSTUS VARGHESE Accession Number [id number] CTP4 Codes 58862 () Reason For Exam s/p LRYGB Report [...] RISA Transcribed Date and Time: 12/29/2018 10:14 [place] Glucose,Bedsideon 12-29-2018 Glucose [Mass/Vol] 99 mg/dL Normal 70-100 [facility] Comment on above: Result Comment: Test performed by glucose meter. Results may be 10%-15% lower than serum/plasma values. (CLIA ID [id number]) Performed By: #### B GLU #### [facility] [address] [place] [address] Glucose [Mass/Vol] 100 mg/dL Normal 70-100 [facility] Comment on above: Result Comment: Test performed by glucose meter. Results may be 10%-15% lower than serum/plasma values. (CLIA ID [id number]) Performed By: #### B GLU #### [facility] [address] [place] [address] Glucose [Mass/Vol] 118 mg/dL High 70-100 [facility] Comment on above: Result Comment: Test performed by glucose meter. Results may be 10%-15% lower than serum/plasma values. (CLIA ID [id number]) Performed By: #### B GLU #### [facility] [address] [place] [address] Glucose [Mass/Vol] 115 mg/dL High 70-100 [facility] Comment on above: Result Comment: Test performed by glucose meter. Results may be 10%-15% lower than serum/plasma values. (CLIA ID [id number]) Performed By: #### B GLU #### [address] Hemogram w/ Autodiffon 12-29 Abs Baso Cnt 0.1 10*3/uL Normal 0.0-0.2 [facility] Comment on above: Performed By: #### H EMDF, MG3, BMP3M #### [address] Abs Neutrophile Cnt 13.1 10*3/uL High 1.8-7.0 [facility] Comment on above: Performed By: #### H EMDF, MG3, BMP3M #### [address] Basophils/100 WBC (Bld) 0.4 % Normal 0.0-2.0 [facility] Comment on above: Performed By: #### H EMDF, MG3, BMP3M #### [address] Eosinophils (Bld) [#/Vol] 0.0 10*3/uL Normal 0.0-0.5 [facility] Comment on above: Performed By: #### H EMDF, MG3, BMP3M #### [address] Eosinophils/100 WBC (Bld) 0.1 % Low 1.0-6.0 [facility] Comment on above: Performed By: #### H EMDF, MG3, BMP3M #### [address] Erythrocyte distribution width (RBC) [Ratio] 15.4 % High 11.5-14.5 [facility] Comment on above: Performed By: #### H EMDF, MG3, BMP3M #### [address] Granulocytes/100 WBC (Bld) 83.3 % High 40.0-80.0 [facility] Comment on above: Performed By: #### H EMDF, MG3, BMP3M #### [address] Hematocrit (Bld) [Volume fraction] 32.7 % Low 35.0-47.0 [facility] Comment on above: Performed By: #### H EMDF, MG3, BMP3M #### [address] Hemoglobin (Bld) [Mass/Vol] 11.1 g/dL Low 11.7-16.0 [facility] Comment on above: Performed By: #### H EMDF, MG3, BMP3M #### [address] Lymphocytes (Bld) [#/Vol] 1.6 10*3/uL Normal 1.0-4.3 [facility] Comment on above: Performed By: #### H EMDF, MG3, BMP3M #### [address] Lymphocytes/100 WBC (Bld) 9.9 % Low 20.0-40.0 [facility] Comment on above: Performed By: #### H EMDF, MG3, BMP3M #### [address] MCH (RBC) [Entitic mass] 27.6 pg Normal 26.0-34.0 [facility] Comment on above: Performed By: #### H EMDF, MG3, BMP3M #### [address] MCHC (RBC) [Mass/Vol] 34.0 % Normal 32.0-36.0 [facility] Comment on above: Performed By: #### H EMDF, MG3, BMP3M #### [address] MCV (RBC) [Entitic vol] 81.3 fL Normal 79.0-98.0 [facility] Comment on above: Performed By: #### H EMDF, MG3, BMP3M #### [address], [place] Monocytes (Bld) [#/Vol] 1.0 10*3/uL High 0.0-0.8 [facility] Comment on above: Performed By: #### H EMDF, MG3, BMP3M #### [place] [place], [place] Monocytes/100 WBC (Bld) 6.3 % Normal 2.0-10.0 [facility] Comment on above: Performed By: #### H EMDF, MG3, BMP3M #### [address] [address] [place] Platelet mean volume (Bld) [Entitic vol] 8.7 fL Normal 7.4-10.4 [facility] Comment on above: Performed By: #### H EMDF, MG3, BMP3M #### [address] [address] [place], [place] Platelets (Bld) [#/Vol] 254 10*3/uL Normal 140-440 [facility] Comment on above: Performed By: #### H EMDF, MG3, BMP3M #### [address] [address] [address] [place] RBC (Bld) [#/Vol] 4.02 10*6/uL Normal 3.80-5.20 [facility] Comment on above: Performed By: #### H EMDF, MG3, BMP3M #### [address] [place] WBC (Bld) [#/Vol] 15.8 10*3/uL High 3.6-10.7 [facility] Comment on above: Performed By: #### H EMDF, MG3, BMP3M #### [address] Magnesiumon 12-29-2018 Magnesium [Mass/Vol] 2.2 mg/dL Normal 1.6-2.3 [facility] Comment on above: Performed By: #### H EMDF, MG3, BMP3M #### [address] [address] [place] [address] Magnesium [Mass/Vol] 2.2 mg/dL 1.6 - 2 .3 mg/dL [place], [place] Otheron 12-29-2018 Test Performed by [facility], [facility] [place], [place] [address] [place] [address] POCT Glucoseon 12-29-2018 Glucose [Mass/Vol] 99 mg/dL 70 - 100 mg/dL [place], [place] Comment on above: Test performed by gl ucose meter. Results may be 10%-15% lower than serum/plasma values. (CLIA ID [id number]) Test Performed by [facility], [facility] [place], [place] [id number] [place] [address] Glucose [Mass/Vol] 100 mg/dL 70 - 100 mg/dL [place], [place] Comment on above: Test performed by gl ucose meter. Results may be 10%-15% lower than serum/plasma values. (CLIA ID [id number]) Test Performed by [facility], [facility] [place], [place] [address] [place] [address] Glucose [Mass/Vol] 118 mg/dL High 70 - 100 mg/dL [place] Comment on above: Test performed by gl ucose meter. Results may be 10%-15% lower than serum/plasma values. (CLIA ID [id number]) Interpretation and review of laboratory results Abnormal [place] Test Performed by [facility], [facility] [address] [place], [place] [id number] [place] [address] Glucose [Mass/Vol] 115 mg/dL High 70 - 100 mg/dL [place] Comment on above: Test performed by gl ucose meter. Results may be 10%-15% lower than serum/plasma values. (CLIA ID [id number]) Interpretation and review of laboratory results Abnormal [place] Test Performed by [facility], [facility] [place] [address] [place] RF UGI w/o KUB w/ or w/o Del ay [facility] 12-29-2018 RF UGI w/o KUB w/ or w/o Delay Flm Patient Name: CATHERINE BUI Fluoroscopy Exam Date/Time 12/29/2018 07:52:14 EDT Exam RF UGI w/o KUB and w/ or w/o Delay Flm Ordering Physician Jennifer RODRIGUEZ, ALEN KITCHEN Accession Number [id number] [facility] Codes 69956 () Reason For Exam s/p LRYGB Report [...] Transcribed Date and Time: 12/29/2018 10:14 Normal [facility] Surgical Pathologyon 019 Sodium [Moles/Vol] SEE BELOW [facility], [place] 1 [id number] [facility] DEPARTMENT OF [facility] PATHOLOGY AND LABORATORY MEDICINE [address] [place] [id number] FINAL SURGICAL PATHOLOGY REPORT NAME: CATHERINE BUI : 1975 43 Y F MCKENZIE NO.: [id number] LOCATION: [id number] [id number] PROCEDURE 12/28/2018 DATE: [...] characteristics determined by the clinical laboratories of [facility] [employer] [facility]. They have not been cleared by the [...] negativity on decalcified specimens. Professional Performing Location: [facility] [address] [place] [address]. DEPARTMENT OF PATHOLOGY AND LABORATORY MEDICINE [place] Basic Metabolic Panelon 09-0 Anion gap [Moles/Vol] 14 Normal [facility] Comment on above: Performed By: #### H GHCT BMP3M #### [address] Calcium [Mass/Vol] 8.8 mg/dL Normal 8.4-10.4 [facility] Comment on above: Performed By: #### Rao GHCT BMP3M #### [address] CO2 [Moles/Vol] 22 mmol/L Normal 22-30 [facility] Comment on above: Performed By: #### H GHCT BMP3M #### [address] Glucose [Mass/Vol] 208 mg/dL High 70-100 [facility] Comment on above: Performed By: #### H GHCT BMP3M #### [address] Urea nitrogen [Mass/Vol] 9 mg/dL Normal 7-20 [facility] Comment on above: Performed By: #### H GHCT BMP3M #### [address] Creatinine [Mass/Vol] 0.56 mg/dL Normal 0.52-1.25 [facility] Comment on above: Performed By: #### H GHCT BMP3M #### [address] [address] GFR/1.73 sq M predicted among blacks MDRD (S/P/Bld) [Vol rate/Area] mL/min/{1.73_m2} Normal >60 [facility] Comment on above: Performed By: #### NEEL TEE3M #### [address] [address] [place], [place] GFR/1.73 sq M predicted among non-blacks MDRD (S/P/Bld) [Vol rate/Area] mL/min/{1.73_m2} Normal >60 [facility] Comment on above: Result Comment: Sour ce- MDRD equation with creatinine calibration to IDMS(NKDEP) eGFR not recommended for drug dose adjustment Performed By: #### NEEL TEE3M #### [address] [address] [place], [place] Chloride [Moles/Vol] 100 mmol/L Normal 98-107 [facility] Comment on above: Performed By: #### Rao RAZO BMP3M #### [address] [address] [place] Potassium [Moles/Vol] 4.6 mmol/L Normal 3.5-5.1 [facility] Comment on above: Performed By: #### Rao RAZO BMP3M #### [address] [address] [place] Sodium [Moles/Vol] 135 mmol/L Normal 135-145 [facility] Comment on above: Performed By: #### Rao RAZO BMP3M #### [address] [address] [address] [place], [place] Basic Metabolic Panel w/ Ref felicitas to MGon 12-28-2018 Anion gap [Moles/Vol] 14 mmol/L [facility], [place] Calcium [Mass/Vol] 8.8 mg/dL 8.4 - 10. 4 mg/dL [facility] Chloride [Moles/Vol] 100 mmol/L 98 - 10 7 mmol/L [facility] CO2 [Moles/Vol] 22 mmol/L 22 - 30 mmol/L [facility] Creatinine [Mass/Vol] 0.56 mg/dL 0.52 - 1.25 mg/dL [place] EGFR IF NonAfrican [place] >60.0 >60 mL/min [place] Comment on above: Source- MDRD equatio n with creatinine calibration to IDMS(NKDEP) eGFR not recommended for drug dose adjustment GFR/1.73 sq M predicted among blacks MDRD (S/P/Bld) [Vol rate/Area] mL/min/{1.73_m2} >60 mL/min [place] Glucose [Mass/Vol] 208 mg/dL High 70 - 100 mg/dL [place] Interpretation and review of laboratory results Abnormal [place] Potassium [Moles/Vol] 4.6 mmol/L 3.5 - 5.1 mmol/L [place] Sodium [Moles/Vol] 135 mmol/L 135 - 145 mmol/L [place] Urea nitrogen [Mass/Vol] 9 mg/dL 7 - 20 mg/d L [place] Test Performed by [facility], [facility] [place] [address] [place], [place] Glucose,Bedsideon 12-28-2018 Glucose [Mass/Vol] 153 mg/dL High 70-100 [facility] Comment on above: Result Comment: Test performed by glucose meter. Results may be 10%-15% lower than serum/plasma values. (CLIA ID [id number]) Performed By: #### B GLU #### [address] [address] [place] [address] Glucose [Mass/Vol] 166 mg/dL High 70-100 [facility] Comment on above: Result Comment: Test performed by glucose meter. Results may be 10%-15% lower than serum/plasma values. (CLIA ID [id number]) Performed By: #### B GLU #### [address] [address] [place] [address] Glucose [Mass/Vol] 204 mg/dL High 70-100 [facility] Comment on above: Result Comment: Test performed by glucose meter. Results may be 10%-15% lower than serum/plasma values. (CLIA ID [id number]) Performed By: #### B GLU #### [address] [place] [address] Glucose [Mass/Vol] 106 mg/dL High 70-100 [facility] Comment on above: Result Comment: Test performed by glucose meter. Results may be 10%-15% lower than serum/plasma values. (CLIA ID [id number]) Performed By: #### B GLU #### [facility] [address] [place] [address] Hemoglobin AND Hematocriton 12-28-2018 Hematocrit (Bld) [Volume fraction] 37.0 % Normal 35.0-47.0 [facility] Comment on above: Performed By: #### H GHCT, BMP3M #### [address] [place] [address] Hemoglobin (Bld) [Mass/Vol] 12.4 g/dL Normal 11.7-16.0 [facility] Comment on above: Performed By: #### H GHCT, BMP3M #### [address] [place] [address] Hemoglobin and Hematocrit, B loodon 12-28-2018 Hematocrit (Bld) [Volume fraction] 37.0 % 35 - 47 % [place] Hemoglobin (Bld) [Mass/Vol] 12.4 g/dL 11.7 - 16 g/dL [place] Test Performed by [facility], [facility] [place], [place] [id number] [place] [address] POCT Glucoseon 12-28-2018 Glucose [Mass/Vol] 153 mg/dL High 70 - 100 mg/dL [place], [place] Comment on above: Test performed by gl ucose meter. Results may be 10%-15% lower than serum/plasma values. (CLIA ID [id number]) Interpretation and review of laboratory results Abnormal [place] Test Performed by [facility], [facility] [address] [place], [place] [address] [place] [address] Glucose [Mass/Vol] 166 mg/dL High 70 - 100 mg/dL [facility] Comment on above: Test performed by gl ucose meter. Results may be 10%-15% lower than serum/plasma values. (CLIA ID [id number]) Interpretation and review of laboratory results Abnormal [facility] Test Performed by [facility], [address] [place] [address] [facility] Glucose [Mass/Vol] 204 mg/dL High 70 - 100 mg/dL [facility] Comment on above: Test performed by gl ucose meter. Results may be 10%-15% lower than serum/plasma values. (CLIA ID [id number]) Interpretation and review of laboratory results Abnormal [facility] Test Performed by [facility], [facility] [place] [address] [email or web address] Glucose [Mass/Vol] 106 mg/dL High 70 - 100 mg/dL [facility] [place] Comment on above: Test performed by gl ucose meter. Results may be 10%-15% lower than serum/plasma values. (CLIA ID [id number]) Interpretation and review of laboratory results Abnormal [facility] Test Performed by [facility], [address] [place] [address] [facility] Surgical Pathologyon 019 Surgical Pathology [id number] [facility] DEPARTMENT OF [facility] PATHOLOGY AND LABORATORY MEDICINE [address] [place] [id number] FINAL SURGICAL PATHOLOGY REPORT NAME: CATHERINE BUI Yaritza : 1975 43 Y F BILLING NO.: [id number] LOCATION: [facility] 6115 [id number] PROCEDURE 12/28/2018 DATE: SURGEON: JOHN [...] characteristics determined by the clinical laboratories of [facility] [employer] [facility]. They have not been cleared by the [...] negativity on decalcified specimens. Professional Performing Location: [facility] [address] [place] [address]. DEPARTMENT OF PATHOLOGY AND LABORATORY MEDICINE [place], [place] Normal [facility] Basic Metabolic Panelon 09-0 Anion gap [Moles/Vol] 14 Normal [facility] Comment on above: Performed By: #### B MP3 #### [address] [address] [address] [place] Calcium [Mass/Vol] 9.6 mg/dL Normal 8.4-10.4 [facility] Comment on above: Performed By: #### B MP3 #### [place] [address] [address] [place] CO2 [Moles/Vol] 26 mmol/L Normal 22-30 [facility] Comment on above: Performed By: #### B MP3 #### [place] [address] [address] [place] Glucose [Mass/Vol] 102 mg/dL High 70-100 [facility] Comment on above: Performed By: #### B MP3 #### [address] [place] [address] [place] Urea nitrogen [Mass/Vol] 13 mg/dL Normal 7-20 [facility] Comment on above: Performed By: #### B MP3 #### [place] [address] [address] [place] Creatinine [Mass/Vol] 0.52 mg/dL Normal 0.52-1.25 [facility] Comment on above: Performed By: #### B MP3 #### [place] [address] [address] [place] GFR/1.73 sq M predicted among blacks MDRD (S/P/Bld) [Vol rate/Area] mL/min/{1.73_m2} Normal >60 [facility] Comment on above: Performed By: #### B MP3 #### [place] [address] [address] [place] GFR/1.73 sq M predicted among non-blacks MDRD (S/P/Bld) [Vol rate/Area] mL/min/{1.73_m2} Normal >60 [facility] Comment on above: Result Comment: Sour ce- MDRD equation with creatinine calibration to IDMS(NKDEP) eGFR not recommended for drug dose adjustment Performed By: #### B MP3 #### [facility] [address] [place] [address] Chloride [Moles/Vol] 98 mmol/L Normal 98-107 [facility] Comment on above: Performed By: #### B MP3 #### [facility] [address] [place] [address] Potassium [Moles/Vol] 5.2 mmol/L High 3.5-5.1 [facility] Comment on above: Performed By: #### B MP3 #### [facility] [employer] [facility] [address] [place] [address] Sodium [Moles/Vol] 137 mmol/L Normal 135-145 [facility] Comment on above: Performed By: #### B MP3 #### [facility] [address] [place] [address] Anion gap [Moles/Vol] 14 mmol/L [facility] Calcium [Mass/Vol] 9.6 mg/dL 8.4 - 10. 4 mg/dL [place] Chloride [Moles/Vol] 98 mmol/L 98 - 10 7 mmol/L [facility] CO2 [Moles/Vol] 26 mmol/L 22 - 30 mmol/L [facility] Creatinine [Mass/Vol] 0.52 mg/dL 0.52 - 1.25 mg/dL [place], [place] EGFR IF NonAfrican [place] >60.0 >60 mL/min [place] Comment on above: Source- MDRD equatio n with creatinine calibration to IDMS(NKDEP) eGFR not recommended for drug dose adjustment GFR/1.73 sq M predicted among blacks MDRD (S/P/Bld) [Vol rate/Area] mL/min/{1.73_m2} >60 mL/min [facility] Glucose [Mass/Vol] 102 mg/dL High 70 - 100 mg/dL [place] Interpretation and review of laboratory results Abnormal [place] Potassium [Moles/Vol] 5.2 mmol/L High 3.5 - 5.1 mmol/L [place] Sodium [Moles/Vol] 137 mmol/L 135 - 145 mmol/L [place] Urea nitrogen [Mass/Vol] 13 mg/dL 7 - 20 mg/d L [place] Test Performed by [address] [address] [place] Albuminon 12-03-2018 Albumin [Mass/Vol] 4.3 g/dL 3.5 - 5 g/dL [place], [place] Basic Metabolic Panelon 11-19 Anion gap [Moles/Vol] 14 mmol/L [place] Calcium [Mass/Vol] 9.6 mg/dL 8.4 - 10. 4 mg/dL [place] Chloride [Moles/Vol] 98 mmol/L 98 - 10 7 mmol/L [place] CO2 [Moles/Vol] 27 mmol/L 22 - 30 mmol/L [place] Creatinine [Mass/Vol] 0.48 mg/dL Low 0.52 - 1.25 mg/dL [place] EGFR IF NonAfrican [place] >60.0 >60 mL/min [place], [place] Comment on above: Source- MDRD equatio n with creatinine calibration to IDMS(NKDEP) eGFR not recommended for drug dose adjustment GFR/1.73 sq M predicted among blacks MDRD (S/P/Bld) [Vol rate/Area] mL/min/{1.73_m2} >60 mL/min [place] Glucose [Mass/Vol] 74 mg/dL 70 - 100 mg/dL [place] Interpretation and review of laboratory results Abnormal [place] Potassium [Moles/Vol] 4.5 mmol/L 3.5 - 5.1 mmol/L [place] Sodium [Moles/Vol] 139 mmol/L 135 - 145 mmol/L [place] Urea nitrogen [Mass/Vol] 12 mg/dL 7 - 20 mg/d L [place] CBCon 12-03-2018 Erythrocyte distribution width (RBC) [Ratio] 14.5 % 11.5 - 14.5 % [place] Hematocrit (Bld) [Volume fraction] 38.7 % 35 - 47 % [place] Hemoglobin (Bld) [Mass/Vol] 12.7 g/dL 11.7 - 16 g/dL [place] MCH (RBC) [Entitic mass] 27.0 pg 26 - 34 pg [place] MCHC (RBC) [Mass/Vol] 32.8 % 32 - 36 % [place] MCV (RBC) [Entitic vol] 82.3 fL 79 - 98 fL [place], [place] Platelet mean volume (Bld) [Entitic vol] 9.9 fL 7.4 - 10.4 fL [place] Platelets (Bld) [#/Vol] 325 10*3/uL 140 - 440 10*3/uL [place] RBC (Bld) [#/Vol] 4.70 10*6/uL 3.8 - 5.2 10*6/uL [place] WBC (Bld) [#/Vol] 13.4 10*3/uL High 3.6 - 10.7 10*3/uL [place] Hemoglobin A1Con 12-03-2018 eAG 131 mg/dL [place] HbA1c (Bld) [Mass fraction] 6.2 % High 4 - 5.7 % [place] Comment on above: --HgbA1C levels may not be accurate in patients who have renal disease, received recent blood transfusions, are anemic, or who have dyshemoglobinemia. Otheron 12-03-2018 Test Performed by [facility], [facility] [employer] [place], [place] [address] [place] [address] Interpretation and review of laboratory results Abnormal [place] Test Performed by [place] [address] [place] [address] [place] XR CHEST STANDARD (2 VW)on 0 12-03-2018 [facility] 1:37 PM EDT Patient Name: CATHERINE BUI ---Diagnostic Radiology--- Exam Date/Time 12/03/2018 12:40:36 EDT Exam CR Chest PA/LAT Ordering Physician MARLENA ALMEIDA LEISA R. Accession Number [id number] CPT4 Codes 56929 () Reason For Exam PRE OP Report [...] IMPRESSION: Negative chest. Report Dictated on Workstation: [id number] --- Final --- Dictated: 12/03/2018 1:34 pm Dictating Physician: DO MELENDEZ ALFRED Signed Date and Time: 12/03/2018 1:36 pm Signed by: DO MELENDEZ ALFRED Transcribed Date and Time: 12/03/2018 1:34 [place] Patient Name: CATHERINE BUI ---Diagnostic Radiology--- Exam Date/Time 12/03/2018 12:40:36 EDT Exam CR Chest PA/LAT Ordering Physician MARLENA ALMEIDA LEISA R. Accession Number [id number] CPT4 Codes 35337 () Reason For Exam PRE OP Report [...] IMPRESSION: Negative chest. Report Dictated on Workstation: [id number] --- Final --- Dictated: 12/03/2018 1:34 pm Dictating Physician: DO MELENDEZ ALFRED Signed Date and Time: 12/03/2018 1:36 pm Signed by: DO MELENDEZ ALFRED Transcribed Date and Time: 12/03/2018 1:[address] [facility] with eGFRon 07-31-2018 Age - Reported 42 years Normal [facility] Comment on above: Performed By: #### 2 [id number] #### [facility],[address] [place] [address]13 Anion gap [Moles/Vol] 14 mmol/L Normal 10 - 20 [facility] Comment on above: Performed By: #### 2 30133 #### [facility],[address] [place] [address] 11977 Calcium [Mass/Vol] 9.9 mg/dL Normal 8.6 - 10.2 [facility] Comment on above: Performed By: #### 2 55955 #### [facility],[address] [place] [address] 66656 Chloride [Moles/Vol] 102 mmol/L Normal 98 - 107 [facility] Comment on above: Performed By: #### 2 68827 #### [facility],[address] [place] [address] 20571 CO2 [Moles/Vol] 23.2 mmol/L Normal 21.0 - 31.0 [facility] Comment on above: Performed By: #### 2 76393 #### [facility],[address] [place] [address] 70510 Creatinine [Mass/Vol] 0.6 mg/dL Normal 0.6 - 1.2 [facility] Comment on above: Performed By: #### 2 08717 #### [facility],[address] [place] [address] 18252 GFR/1.73 sq M predicted among non-blacks MDRD (S/P/Bld) [Vol rate/Area] mL/min/{1.73_m2} Normal 60 - 999 [facility] Comment on above: Performed By: #### 2 22752 #### [facility],[address] [place], [place] [address] Result Comment: ACCO RDING TO THE NATIONAL KIDNEY DISEASE EDUCATION PROGRAM(NKDE), A NORMAL eGFR IS A VALUE GREATER THAN OR EQUAL TO 60 ML/MIN/1.73 SQ METERS. CHRONIC KIDNEY DISEASE: <60mL/MIN/1.73 SQ METERS KIDNEY FAILURE: <15mL/MIN/1.73 SQ METERS THIS TEST SHOULD ONLY BE USED FOR PATIENTS 18 YEARS OF AGE AND OLDER. GFR/1.73 sq M predicted among non-blacks MDRD (S/P/Bld) [Vol rate/Area] Normal [facility] Comment on above: Result Comment: BASI C METABOLIC PANEL Performed By: #### 2 76625 #### [place] [id number] Glucose [Mass/Vol] 118 mg/dL High 74 - 106 [facility] Comment on above: Performed By: #### 2 52769 #### [facility],[address] [place] [address] 19140 Potassium [Moles/Vol] 4.1 mmol/L Normal 3.5 - 5.1 [facility] Comment on above: Performed By: #### 2 60053 #### [address] [address] Sodium [Moles/Vol] 135 mmol/L Low 136 - 145 [facility] Comment on above: Performed By: #### 2 89295 #### [facility],[address] [place] [address] 64455 Urea nitrogen [Mass/Vol] 13 mg/dL Normal 6 - 20 [facility] Comment on above: Performed By: #### 2 79533 #### [address] [address] LIPID PROFILEon 07-31-2018 Cholesterol [Mass/Vol] 124 mg/dL Normal 0 - 200 [facility] Comment on above: Performed By: #### 2 97533 #### [address],[place] [address] Cholesterol in HDL [Mass/Vol] 21 mg/dL Low 40 - 60 [facility] Comment on above: Performed By: #### 2 53119 #### [facility],[address] [place] [address] 41826 Cholesterol in LDL [Mass/Vol] 81 mg/dL Normal 0 - 129 [facility] Comment on above: Performed By: #### 2 24961 #### [facility],[address] [place] [address] 38805 Cholesterol.total/Choles terol in HDL [Mass ratio] 5.9 {ratio} High 0.0 - 5.0 [facility] Comment on above: Performed By: #### 2 07255 #### [facility],[address] [place] [address] 92379 Lipid 1996 panel Normal [facility] Comment on above: Result Comment: LIPI D PROFILE Performed By: #### 2 62230 #### [facility],[address] [place] [address] 18110 Triglyceride [Mass/Vol] 108 mg/dL Normal 0 - 150 [facility] Comment on above: Performed By: #### 2 50859 #### [facility],[address] [place] [address] 91169 TSHon 07-31-2018 TSH Qn 2.42 uIU/ml Normal 0.34 - 5.60 [facility] Comment on above: Performed By: #### 2 56470 #### [facility],[address] [place] [address] 89944 US Pelvis Non-OB Completeon 07-24-2018 US Pelvis Non-OB Complete Exam Date/Time: 07/23/2018 15:35 EDT Reason for Exam: PELVIC PAIN;Pelvic pain Report STUDY: US Pelvis Non-OB Complete; US Transvaginal Non-OB; 07/23/2018 3:35 pm INDICATION: Pelvic pain. COMPARISON: None. ACCESSION NUMBER(S): [id number]; [id number] ORDERING CLINICIAN: Yifan Fregoso TECHNIQUE: Multiple multiplanar [...] Signed by: Kumar Thorpe MD Technologist: [facility] US Transvaginal Non-OBon US Transvaginal Non-OB Exam Date/Time: 07/23/2018 15:35 EDT Reason for Exam: PELVIC PAIN;Pelvic pain Report STUDY: US Pelvis Non-OB Complete; US Transvaginal Non-OB; 07/23/2018 3:35 pm INDICATION: Pelvic pain. COMPARISON: None. ACCESSION NUMBER(S): [id number]; [id number] ORDERING CLINICIAN: Yifan Fregoso TECHNIQUE: Multiple multiplanar [...] Signed by: Kumar Thorpe MD Technologist: [facility] Magnesiumon 06-15-2018 Magnesium [Mass/Vol] 1.6 mg/dL Normal 1.6-2.3 [facility] Comment on above: Performed By: #### H EMOG, IRON3, LIPD2, CMP3, MG3, TSH5, FERR3, B12, FOLT3 #### [facility] [address] [place] [address] #### VD25H #### [facility] [address] [place] [address] Vitamin B1,Whole Bloodon Vitamin B1,Whole Blood 133 nmol/L Normal 70-180 [facility] Comment on above: Result Comment: INTE RPRETIVE INFORMATION: Vitamin B1, Whole Blood This assay measures the concentration of thiamine diphosphate (TDP), the primary active form of vitamin B1. Approximately 90 percent of vitamin B1 present in whole blood is TDP. Thiamine and thiamine monophosphate, which comprise the remaining 10 percent, are not measured. Test developed and characteristics determined by [employer] See Compliance Statement B: [employer] Performed by [employer] [address] [place] [address] [email or web address], Blane Connelly MD - Lab. Director Performed By: #### H EMOG, IRON3, LIPD2, CMP3, MG3, TSH5, FERR3, B12, FOLT3 #### [facility] [address] [place] [address] #### VD25H #### [facility] [address] [place] [address] Zinc, Serumon 05-07-2018 Zinc, Serum 77 ug/dL Normal 60-120 [facility] Comment on above: Result Comment: INTE RPRETIVE INFORMATION: Zinc, Serum or Plasma Circulating zinc concentrations are dependent on albumin status and are depressed with malnutrition. Zinc may also be lowered with infection, inflammation, stress, oral contraceptives, and . Zinc may be elevated with zinc supplementation or fasting. Elevated zinc concentrations may interfere with copper absorption. Test developed and characteristics determined by [employer] See Compliance Statement B: [employer] Performed by [employer] [address] [place] [id number] [email or web address], Blane Connelly MD - Lab. Director Performed By: #### H EMOG, IRON3, LIPD2, CMP3, MG3, TSH5, FERR3, B12, FOLT3 #### [facility] [address] [facility] [place] [address] #### VD25H #### [facility] [address] [place] [address] Comp Metabolic Panelon 05-04 ALT [Catalytic activity/Vol] 56 U/L Normal 13-69 [facility] Comment on above: Performed By: #### H EMOG, IRON3, LIPD2, CMP3, MG3, TSH5, FERR3, B12, FOLT3 #### [facility] [address] [place] [address] #### VD25H #### [facility] [address] [place] [address] Calcium [Mass/Vol] 10.6 mg/dL High 8.4-10.4 [facility] Comment on above: Performed By: #### H EMOG, IRON3, LIPD2, CMP3, MG3, TSH5, FERR3, B12, FOLT3 #### [facility] [address] [place] [address] #### VD25H #### [facility] [address] [place] [address] Glucose [Mass/Vol] 121 mg/dL High 70-100 [facility] Comment on above: Performed By: #### H EMOG, IRON3, LIPD2, CMP3, MG3, TSH5, FERR3, B12, FOLT3 #### [facility] [address] [place] [address] #### VD25H #### [facility] [address] [place] [address] ALP [Catalytic activity/Vol] 76 U/L Normal 38-126 [facility] Comment on above: Performed By: #### H EMOG, IRON3, LIPD2, CMP3, MG3, TSH5, FERR3, B12, FOLT3 #### [facility] [address] [place] [address] #### VD25H #### [place] [address] [place] [address] Anion gap [Moles/Vol] 12 Normal [facility] Comment on above: Performed By: #### H EMOG, IRON3, LIPD2, CMP3, MG3, TSH5, FERR3, B12, FOLT3 #### [facility] [address] [place] [address] #### VD25H #### [place] [address] [place] [address] AST [Catalytic activity/Vol] 31 U/L Normal 15-46 [facility] Comment on above: Performed By: #### H EMOG, IRON3, LIPD2, CMP3, MG3, TSH5, FERR3, B12, FOLT3 #### [facility] [address] [place] [address] #### VD25H #### [place] [address] [place] [address] Bilirubin [Mass/Vol] 0.3 mg/dL Normal 0.2-1.3 [facility] Comment on above: Performed By: #### H EMOG, IRON3, LIPD2, CMP3, MG3, TSH5, FERR3, B12, FOLT3 #### [facility] [address] [place] [address] #### VD25H #### [place] [address] [place] [address] CO2 [Moles/Vol] 26 mmol/L Normal 22-30 [facility] Comment on above: Performed By: #### H EMOG, IRON3, LIPD2, CMP3, MG3, TSH5, FERR3, B12, FOLT3 #### [facility] [address] [place] [address] #### VD25H #### [facility] [address] [place] [address] Creatinine [Mass/Vol] 0.65 mg/dL Normal 0.52-1.25 [facility] Comment on above: Performed By: #### H EMOG, IRON3, LIPD2, CMP3, MG3, TSH5, FERR3, B12, FOLT3 #### [facility] [address] [place] [address] #### VD25H #### [place] [address] [place] [address] GFR/1.73 sq M predicted among blacks MDRD (S/P/Bld) [Vol rate/Area] mL/min/{1.73_m2} Normal >60 [facility] Comment on above: Performed By: #### H EMOG, IRON3, LIPD2, CMP3, MG3, TSH5, FERR3, B12, FOLT3 #### [facility] [address] [place] [address] #### VD25H #### [place] [address] [place] [address] GFR/1.73 sq M predicted among non-blacks MDRD (S/P/Bld) [Vol rate/Area] mL/min/{1.73_m2} Normal >60 [facility] Comment on above: Result Comment: Sour ce- MDRD equation with creatinine calibration to IDMS(NKDEP) eGFR not recommended for drug dose adjustment Performed By: #### H EMOG, IRON3, LIPD2, CMP3, MG3, TSH5, FERR3, B12, FOLT3 #### [facility] [address] [place] [address] #### VD25H #### [facility] [address] [place] [address] Protein [Mass/Vol] 7.4 g/dL Normal 6.3-8.2 [facility] Comment on above: Performed By: #### H EMOG, IRON3, LIPD2, CMP3, MG3, TSH5, FERR3, B12, FOLT3 #### [facility] [address] [place] [address] #### VD25H #### [facility] [address] [place] [address] Urea nitrogen [Mass/Vol] 15 mg/dL Normal 7-20 [facility] Comment on above: Performed By: #### H EMOG, IRON3, LIPD2, CMP3, MG3, TSH5, FERR3, B12, FOLT3 #### [facility] [address] [place] [address] #### VD25H #### [facility] [address] [place] [address] Potassium [Moles/Vol] 4.4 mmol/L Normal 3.5-5.1 [facility] Comment on above: Performed By: #### H EMOG, IRON3, LIPD2, CMP3, MG3, TSH5, FERR3, B12, FOLT3 #### [facility] [address] [place] [address] #### VD25H #### [facility] [address] [place] [address] Sodium [Moles/Vol] 137 mmol/L Normal 135-145 [facility] Comment on above: Performed By: #### H EMOG, IRON3, LIPD2, CMP3, MG3, TSH5, FERR3, B12, FOLT3 #### [facility] [address] [place] [address] #### VD25H #### [facility] [address] [place] [address] Albumin [Mass/Vol] 4.2 g/dL Normal 3.5-5.0 [facility] Comment on above: Performed By: #### H EMOG, IRON3, LIPD2, CMP3, MG3, TSH5, FERR3, B12, FOLT3 #### [facility] [address] [place] [address] #### VD25H #### [facility] [address] [place] [address] Chloride [Moles/Vol] 99 mmol/L Normal 98-107 [facility] Comment on above: Performed By: #### H EMOG, IRON3, LIPD2, CMP3, MG3, TSH5, FERR3, B12, FOLT3 #### [facility] [address] [place] [address] #### VD25H #### [place] [address] [place] [address] Ferritinon 05-04-2018 Ferritin [Mass/Vol] 10 ng/mL Normal 8-252 [facility] Comment on above: Performed By: #### H EMOG, IRON3, LIPD2, CMP3, MG3, TSH5, FERR3, B12, FOLT3 #### [facility] [address] [place] [address] #### VD25H #### [place] [address] [place] [address] Folateon 05-04-2018 Folate 13.6 ng/mL Normal 2.8-20.0 [facility] Comment on above: Performed By: #### H EMOG, IRON3, LIPD2, CMP3, MG3, TSH5, FERR3, B12, FOLT3 #### [facility] [address] [place] [address] #### VD25H #### [facility] [address] [place] [address] Hemogramon 05-04-2018 Erythrocyte distribution width (RBC) [Ratio] 14.9 % High 11.5-14.5 [facility] Comment on above: Performed By: #### H EMOG, IRON3, LIPD2, CMP3, MG3, TSH5, FERR3, B12, FOLT3 #### [facility] [address] [place] [address] #### VD25H #### [place] [address] [place] [address] Hematocrit (Bld) [Volume fraction] 42.5 % Normal 35.0-47.0 [facility] Comment on above: Performed By: #### H EMOG, IRON3, LIPD2, CMP3, MG3, TSH5, FERR3, B12, FOLT3 #### [facility] [address] [place] [address] #### VD25H #### [facility] [address] [place] [address] Hemoglobin (Bld) [Mass/Vol] 13.7 g/dL Normal 11.7-16.0 [facility] Comment on above: Performed By: #### H EMOG, IRON3, LIPD2, CMP3, MG3, TSH5, FERR3, B12, FOLT3 #### [facility] [address] [place] [address] #### VD25H #### [facility] [address] [place] [address] MCH (RBC) [Entitic mass] 25.7 pg Low 26.0-34.0 [facility] Comment on above: Performed By: #### H EMOG, IRON3, LIPD2, CMP3, MG3, TSH5, FERR3, B12, FOLT3 #### [facility] [address] [place] [address] #### VD25H #### [facility] [address] [place] [address] MCHC (RBC) [Mass/Vol] 32.2 % Normal 32.0-36.0 [facility] Comment on above: Performed By: #### H EMOG, IRON3, LIPD2, CMP3, MG3, TSH5, FERR3, B12, FOLT3 #### [facility] [address] [place] [address] #### VD25H #### [facility] [address] [place] [address] MCV (RBC) [Entitic vol] 79.8 fL Normal 79.0-98.0 [facility] Comment on above: Performed By: #### H EMOG, IRON3, LIPD2, CMP3, MG3, TSH5, FERR3, B12, FOLT3 #### [facility] [address] [place] [address] #### VD25H #### [facility] [address] [place] [address] Platelet mean volume (Bld) [Entitic vol] 9.0 fL Normal 7.4-10.4 [facility] Comment on above: Performed By: #### H EMOG, IRON3, LIPD2, CMP3, MG3, TSH5, FERR3, B12, FOLT3 #### [facility] [address] [place] [address] #### VD25H #### [facility] [address] [place] [address] Platelets (Bld) [#/Vol] 322 10*3/uL Normal 140-440 [facility] Comment on above: Performed By: #### H EMOG, IRON3, LIPD2, CMP3, MG3, TSH5, FERR3, B12, FOLT3 #### [facility] [address] [place] [address] #### VD25H #### [facility] [address] [place] [address] RBC (Bld) [#/Vol] 5.32 10*6/uL High 3.80-5.20 [facility] Comment on above: Performed By: #### H EMOG, IRON3, LIPD2, CMP3, MG3, TSH5, FERR3, B12, FOLT3 #### [facility] [address] [address] #### VD25H #### [facility] [address] [place] [address] WBC (Bld) [#/Vol] 11.5 10*3/uL High 3.6-10.7 [facility] Comment on above: Performed By: #### H EMOG, IRON3, LIPD2, CMP3, MG3, TSH5, FERR3, B12, FOLT3 #### [facility] [address] [place] [address] #### VD25H #### [facility] [address] [place] [address] Iron, Totalon 05-04-2018 Iron, Total 80 ug/dL Normal 37-170 [facility] Comment on above: Performed By: #### H EMOG, IRON3, LIPD2, CMP3, MG3, TSH5, FERR3, B12, FOLT3 #### [facility] [address] [place] [address] #### VD25H #### [facility] [address] [place] [address] Lipid Panelon 05-04-2018 Cholesterol in HDL [Mass/Vol] 23 mg/dL Low 40-60 [facility] Comment on above: Performed By: #### H EMOG, IRON3, LIPD2, CMP3, MG3, TSH5, FERR3, B12, FOLT3 #### [facility] [address] [place] [address] #### VD25H #### [facility] [address] [place] [address] Cholesterol.total/Choles terol in HDL [Mass ratio] 5 Normal [facility] Comment on above: Result Comment: Ref Range: < 3 Low Risk for CHD 3-6 Mod Risk for CHD > 6 High Risk for CHD Performed By: #### H EMOG, IRON3, LIPD2, CMP3, MG3, TSH5, FERR3, B12, FOLT3 #### [facility] [address] [place] [address] #### VD25H #### [facility] [address] [place] [address] Protein [Mass/Vol] 82 mg/dL Normal <100 [facility] Comment on above: Performed By: #### H EMOG, IRON3, LIPD2, CMP3, MG3, TSH5, FERR3, B12, FOLT3 #### [facility] [address] [place] [address] #### VD25H #### [facility] [address] [place] [address] Triglyceride [Mass/Vol] 91 mg/dL Normal <150 [facility] Comment on above: Performed By: #### H EMOG, IRON3, LIPD2, CMP3, MG3, TSH5, FERR3, B12, FOLT3 #### [facility] [address] [place] [address] #### VD25H #### [facility] [address] [place] [address] Cholesterol [Mass/Vol] 123 mg/dL Normal < 200 [facility] Comment on above: Performed By: #### H EMOG, IRON3, LIPD2, CMP3, MG3, TSH5, FERR3, B12, FOLT3 #### [facility] [address] [place] [address] #### VD25H #### [facility] [address] [place] [address] Magnesiumon 05-04-2018 Magnesium [Mass/Vol] 1.4 mg/dL Low 1.6-2.3 [facility] Comment on above: Performed By: #### H EMOG, IRON3, LIPD2, CMP3, MG3, TSH5, FERR3, B12, FOLT3 #### [facility] [address] [place] [address] #### VD25H #### [facility] [address] [place] [address] Thyroid Stim. Hormoneon 04-21 Thyroid Stim. Hormone 2.585 u[IU]/mL Normal 0.465-4.68 0 [facility] Comment on above: Performed By: #### H EMOG, IRON3, LIPD2, CMP3, MG3, TSH5, FERR3, B12, FOLT3 #### [facility] [address] [place] [address] #### VD25H #### [facility] [address] [place] [address] Vit D 25-OH, Totalon 019 Vit D 25-OH, Total 37 ng/mL Normal 30-100 [facility] Comment on above: Result Comment: Ther apy is based on measurement of Total 25-OHD with the following classification levels: Less than 20 ng/mL: Indicative of Vit D deficiency 20-30 ng/mL: Suggests Vit D insufficiency Optimal: Greater than or equal to 30 ng/mL Test performed by [email or web address] Competitive Immunoassay, measuring Total Vitamin D, not individual fractions. Performed By: #### H EMOG, IRON3, LIPD2, CMP3, MG3, TSH5, FERR3, B12, FOLT3 #### [facility] [address] [place] [address] #### VD25H #### [facility] [address] [place] [address] Vitamin B12on 05-04-2018 Cobalamin (Vitamin B12) [Mass/Vol] 303 pg/mL Normal 239-931 [facility] Comment on above: Performed By: #### H EMOG, IRON3, LIPD2, CMP3, MG3, TSH5, FERR3, B12, FOLT3 #### [facility] [address] [place] [address] #### VD25H #### [facility] [address] [place] [address] FSHon 01-30-2018 FSH 7.2 mIU/mL Normal [facility] Comment on above: Result Comment: Male : 1.5 - 12.4 Female: Follicular phase 3.5 - 12.5 Ovulation phase 4.7 - 21.5 Luteal phase 1.7 - 7.7 Postmenopausal 25.8 - 134.8 Performed At: [facility] [id number] Yakov Landon PhD Ph:[phone] Performed By: #### 2 [id number] #### [place] [address] Office Visit: postop surgery 08/15/16on 08-30-2016 Dietary management education, guidance, and counseling (procedure) yes Invalid Interpretation Code [facility] Work Phone: Documentation of current medications (procedure) Done Invalid Interpretation Code [facility] Work Phone: Fall risk assessment No Invalid Interpretation Code [facility] Work Phone: Protein mass conc Done [facility] Work Phone: Tobacco smoking status NHIS Never Invalid Interpretation Code [facility] Work Phone: [phone] Tobacco smoking status NHIS Never smoker [facility] Work Phone: [phone] Tobacco use CPHS Never smoker Invalid Interpretation Code [facility] Work Phone: [phone] Office Visit: postop surgery 08/15/16on 08-21-2016 Dietary management education, guidance, and counseling (procedure) yes Invalid Interpretation Code [facility] Work Phone: [phone] Documentation of current medications (procedure) Done Invalid Interpretation Code [facility] Work Phone: [phone] Fall risk assessment No Invalid Interpretation Code [facility] Work Phone: [phone] Tobacco smoking status NHIS Never Invalid Interpretation Code [facility] Work Phone: [phone] Tobacco use CPHS Never smoker Invalid Interpretation Code [facility] Work Phone: [phone] Office Visit: evaluation apollo glion cysts bilateral wristson 07-03-2016 Dietary management education, guidance, and counseling (procedure) yes Invalid Interpretation Code [facility] Work Phone: [phone] Documentation of current medications (procedure) Done Invalid Interpretation Code [facility] Work Phone: [phone] Fall risk assessment No Invalid Interpretation Code [facility] Work Phone: [phone] Tobacco smoking status NHIS Never Invalid Interpretation Code [facility] Work Phone: [phone] Tobacco use CPHS Never smoker Invalid Interpretation Code [facility] Work Phone: [phone] Microbiology: Culture, Wound on 12-17-2014 CUW . [facility] Work Phone: [phone] wound culture . Invalid Interpretation Code [facility] Work Phone: [phone] Vital Signs Date Time Vital Sign Value Performing Clinician Facility 01-10-2025 13:37-0400 Body height 162.56 cm Giancarlo Posadas NP-C Work Phone: [facility] 01-10-2025 13:37-0400 Body mass index (BMI) [Ratio] 35 kg/m2 Giancarlo Posadas NP-C Work Phone: [facility] 01-10-2025 13:37-0400 Body temperature 98.5 [degF] Giancarlo Posadas ASSISTANT ASSOCIATE PROFESSOR-C Work Phone: [phone] [place] [address] 01-10-2025 13:37-0400 Body weight 92.67 kg Giancarlo Posadas ASSISTANT ASSOCIATE PROFESSOR-C Work Phone: [phone] [place] [address] 01-10-2025 13:37-0400 Diastolic blood pressure 84 mm[Hg] Giancarlo Posadas ASSISTANT ASSOCIATE PROFESSOR-C Work Phone: [phone] [place] [address] 01-10-2025 13:37-0400 Heart rate 64 /min Giancarlo Posadas ASSISTANT ASSOCIATE PROFESSOR-C Work Phone: [phone] [place] [address] 01-10-2025 13:37-0400 Respiratory rate 16 /min Giancarlo Posadas ASSISTANT ASSOCIATE PROFESSOR-C Work Phone: [phone] [place] [address] 01-10-2025 13:37-0400 SaO2% (BldA) [Mass fraction] 98 % Giancarlo Posadas ASSISTANT ASSOCIATE PROFESSOR-C Work Phone: 4(112)263-649520 [place] [address] 01-10-2025 13:37-0400 Systolic blood pressure 127 mm[Hg] Giancarlo Posadas ASSISTANT ASSOCIATE PROFESSOR-C Work Phone: 2(057)619-032920 [place] [address] 12-10-2024 08:01-0400 Body height 162.56 cm Giancarlo Posadas ASSISTANT ASSOCIATE PROFESSOR-C Work Phone: 0(138)419-233020 [place] [address] 12-10-2024 08:01-0400 Body mass index (BMI) [Ratio] 34.3 kg/m2 Giancarlo Posadas ASSISTANT ASSOCIATE PROFESSOR-C Work Phone: 7(165)809-457020 [place] [address] 12-10-2024 08:01-0400 Body weight 90.77 kg Giancarlo Posadas ASSISTANT ASSOCIATE PROFESSOR-C Work Phone: 1(166)627-011320 [place] [address] 12-10-2024 08:01-0400 Diastolic blood pressure 83 mm[Hg] Giancarlo Posadas ASSISTANT ASSOCIATE PROFESSOR-C Work Phone: 3(352)018-549620 [place] [address] 12-10-2024 08:01-0400 Systolic blood pressure 125 mm[Hg] Giancarlo Posadas ASSISTANT ASSOCIATE PROFESSOR-C Work Phone: 0(725)907-613820 [place] [address] 11-08-2024 10:30-0400 Body temperature 97.9 [degF] Giancarlo Posadas ASSISTANT ASSOCIATE PROFESSOR-C Work Phone: 4(606)065-497820 [place] [address] 11-08-2024 10:30-0400 Diastolic blood pressure 79 mm[Hg] Giancarlo Posadas ASSISTANT ASSOCIATE PROFESSOR-C Work Phone: 6(062)756-282420 [place] [address] 11-08-2024 10:30-0400 Heart rate 65 /min Giancarlo Posadas ASSISTANT ASSOCIATE PROFESSOR-C Work Phone: 6(635)473-457620 [place] [address] 11-08-2024 10:30-0400 Respiratory rate 16 /min Giancarlo Posadas ASSISTANT ASSOCIATE PROFESSOR-C Work Phone: 2(913)807-566320 [place] [address] 11-08-2024 10:30-0400 SaO2% (BldA) [Mass fraction] 97 % Giancarlo Posadas ASSISTANT ASSOCIATE PROFESSOR-C Work Phone: 1(260)844-785220 [place] [address] 11-08-2024 10:30-0400 Systolic blood pressure 115 mm[Hg] Giancarlo Posadas ASSISTANT ASSOCIATE PROFESSOR-C Work Phone: 5(930)708-615620 [place] [address] 11-08-2024 09:35-0400 Body height 162.56 cm Giancarlo Posadas ASSISTANT ASSOCIATE PROFESSOR-C Work Phone: 7(916)717-217120 [place] [address] 11-08-2024 09:35-0400 Body mass index (BMI) [Ratio] 34.1 kg/m2 Giancarlo Posadas ASSISTANT ASSOCIATE PROFESSOR-C Work Phone: 4(556)509-127020 [place] [address] 11-08-2024 09:35-0400 Body weight 90.2 kg Giancarlo Posadas ASSISTANT ASSOCIATE PROFESSOR-C Work Phone: 9(969)558-874220 [place] [address] 07-26-2024 10:15-0400 Body temperature 98.2 [degF] Giancarlo Posadas ASSISTANT ASSOCIATE PROFESSOR-C Work Phone: 7(691)136-103020 [place] [address] 07-26-2024 10:15-0400 Diastolic blood pressure 72 mm[Hg] Giancarlo Posadas ASSISTANT ASSOCIATE PROFESSOR-C Work Phone: 6(344)900-632620 [place] [address] 07-26-2024 10:15-0400 Heart rate 61 /min Giancarlo Posadas ASSISTANT ASSOCIATE PROFESSOR-C Work Phone: 4(025)233-807820 [place] [address] 07-26-2024 10:15-0400 Respiratory rate 16 /min Giancarlo Posadas ASSISTANT ASSOCIATE PROFESSOR-C Work Phone: 2(608)607-262920 [place] [address] 07-26-2024 10:15-0400 SaO2% (BldA) [Mass fraction] 95 % Giancarlo Posadas ASSISTANT ASSOCIATE PROFESSOR-C Work Phone: 4(899)670-782820 [place] [address] 07-26-2024 10:15-0400 Systolic blood pressure 110 mm[Hg] Giancarlo Posadas ASSISTANT ASSOCIATE PROFESSOR-C Work Phone: 7(401)254-447720 [place] [address] 07-26-2024 09:11-0400 Body height 162.56 cm Giancarlo Posadas ASSISTANT ASSOCIATE PROFESSOR-C Work Phone: 5(210)504-372420 [place] [address] 07-26-2024 09:11-0400 Body mass index (BMI) [Ratio] 33.7 kg/m2 Giancarlo Posadas ASSISTANT ASSOCIATE PROFESSOR-C Work Phone: 1(287)123-463320 [place] [address] 07-26-2024 09:11-0400 Body weight 89 kg Giancarlo Posadas ASSISTANT ASSOCIATE PROFESSOR-C Work Phone: 2(288)056-977920 [place] [address] 07-06-2024 14:23-0400 Body mass index (BMI) [Ratio] 34.3 kg/m2 Giancarlo Posadas ASSISTANT ASSOCIATE PROFESSOR-C Work Phone: 3(844)586-186820 [place] [address] 07-06-2024 14:23-0400 Body temperature 98.3 [degF] Giancarlo Posadas ASSISTANT ASSOCIATE PROFESSOR-C Work Phone: 6(989)744-743920 [place] [address] 07-06-2024 14:23-0400 Body weight 90.71 kg Giancarlo Posadas ASSISTANT ASSOCIATE PROFESSOR-C Work Phone: 6(188)720-268320 [place] [address] 07-06-2024 14:23-0400 Diastolic blood pressure 80 mm[Hg] Giancarlo Posadas ASSISTANT ASSOCIATE PROFESSOR-C Work Phone: 2(841)042-637920 [place] [address] 07-06-2024 14:23-0400 Heart rate 81 /min Giancarlo Posadas ASSISTANT ASSOCIATE PROFESSOR-C Work Phone: 3(824)111-686320 [place] [address] 07-06-2024 14:23-0400 Respiratory rate 18 /min Giancarlo Posadas ASSISTANT ASSOCIATE PROFESSOR-C Work Phone: 9(492)393-562520 [place] [address] 07-06-2024 14:23-0400 SaO2% (BldA) [Mass fraction] 96 % Giancarlo Posadas ASSISTANT ASSOCIATE PROFESSOR-C Work Phone: 2(424)097-244220 [place] [address] 07-06-2024 14:23-0400 Systolic blood pressure 122 mm[Hg] Giancarlo Posadas ASSISTANT ASSOCIATE PROFESSOR-C Work Phone: 6(197)103-950196 [place] [address] 05-19-2024 08:20-0500 Body temperature 98 [degF] Giancarlo Bobder ASSISTANT ASSOCIATE PROFESSOR-C Work Phone: 2(307)977-867720 [place] [address] 05-19-2024 08:20-0500 Diastolic blood pressure 76 mm[Hg] Giancarlo Posadas ASSISTANT ASSOCIATE PROFESSOR-C Work Phone: 0(639)148-943220 [place] [address] 05-19-2024 08:20-0500 Heart rate 70 /min Giancarlo Posadas ASSISTANT ASSOCIATE PROFESSOR-C Work Phone: 0(794)755-263520 [place] [address] 05-19-2024 08:20-0500 Respiratory rate 16 /min Giancarlo Posadas ASSISTANT ASSOCIATE PROFESSOR-C Work Phone: 9(148)858-463620 [place] [address] 05-19-2024 08:20-0500 SaO2% (BldA) [Mass fraction] 97 % Giancarlo Posadas ASSISTANT ASSOCIATE PROFESSOR-C Work Phone: 2(011)421-562920 [place] [address] 05-19-2024 08:20-0500 Systolic blood pressure 122 mm[Hg] Giancarlo Bobder ASSISTANT ASSOCIATE PROFESSOR-C Work Phone: 1(083)710-136320 [place] [address] 05-19-2024 06:38-0500 Body mass index (BMI) [Ratio] 34.4 kg/m2 Giancarlo Bobder ASSISTANT ASSOCIATE PROFESSOR-C Work Phone: 8(598)689-572520 [place] [address] 05-19-2024 06:38-0500 Body weight 91 kg Giancarlo Bobder ASSISTANT ASSOCIATE PROFESSOR-C Work Phone: 1(579)655-941103 [address] 07-01-2023 15:38-0400 Body height 162.[address] Hermelinda Castillo Work Phone: [facility] 07-01-2023 15:37-0400 Body mass index (BMI) [Ratio] 34.8 kg/m2 Dr. Hermelinda Castillo Work Phone: [facility] 07-01-2023 15:37-0400 Body temperature 96.6 [degF] Dr. Hermelinda Castillo Work Phone: [facility] 07-01-2023 15:37-0400 Body weight 92.[address] Hermelinda Castillo Work Phone: [facility] 07-01-2023 15:37-0400 Diastolic blood pressure 88 mm[Hg] Dr. Hermelinda Castillo Work Phone: [facility] 07-01-2023 15:37-0400 Heart rate 72 /min Dr. Hermelinda Castillo Work Phone: [facility] 07-01-2023 15:37-0400 Respiratory rate 14 /min Dr. Hermelinda Castillo Work Phone: [facility] 07-01-2023 15:37-0400 SaO2% (BldA) [Mass fraction] 98 % Dr. Hermelinda Castillo Work Phone: [facility] 07-01-2023 15:37-0400 Systolic blood pressure 138 mm[Hg] Dr. Hermelinda Castillo Work Phone: [facility] 04-24-2023 08:32-0500 Diastolic blood pressure 73 mm[Hg] Dr. Hermelinda Castillo Work Phone: [facility] 04-24-2023 08:32-0500 Heart rate 60 /min Dr. Hermelinda Castillo Work Phone: [facility] 04-24-2023 08:32-0500 Respiratory rate 16 /min Dr. Hermelinda Castillo Work Phone: [facility] 04-24-2023 08:32-0500 SaO2% (BldA) [Mass fraction] 100 % Dr. Hermelinda Castillo Work Phone: [facility] 04-24-2023 08:32-0500 Systolic blood pressure 113 mm[Hg] Dr. Hermelinda Castillo Work Phone: [facility] 04-24-2023 08:21-0500 Body temperature 97 [degF] Dr. Hermelinda Castilol Work Phone: [facility] 04-24-2023 06:35-0500 Body height 162.[address] Hermelinda Castillo Work Phone: [facility] 04-24-2023 06:35-0500 Body mass index (BMI) [Ratio] 33.6 kg/m2 Dr. Hermelinda Castillo Work Phone: [facility] 04-24-2023 06:35-0500 Body weight 88.[address] Hermelinda Castillo Work Phone: [facility] 04-22-2023 13:15-0500 Diastolic blood pressure 80 mm[Hg] Dr. Hermelinda Castillo Work Phone: [facility] 04-22-2023 13:15-0500 Heart rate 69 /min Dr. Hermelinda Castillo Work Phone: [facility] 04-22-2023 13:15-0500 Respiratory rate 23 /min Dr. Hermelinda Castillo Work Phone: [facility] 04-22-2023 13:15-0500 Systolic blood pressure 119 mm[Hg] Dr. Hermelinda Castillo Work Phone: [facility] 04-22-2023 11:37-0500 SaO2% (BldA) [Mass fraction] 96 % Dr. Hermelinda Castillo Work Phone: [facility] 04-22-2023 09:19-0500 Body height 162.[address] Hermelinda Castillo Work Phone: [facility] 04-22-2023 09:19-0500 Body mass index (BMI) [Ratio] 34.3 kg/m2 Dr. Hermelinda Castillo Work Phone: [facility] 04-22-2023 09:19-0500 Body temperature 98.1 [degF] Dr. Hermelinda Castillo Work Phone: [facility] 04-22-2023 09:19-0500 Body weight 90.[address] Hermelinda Castillo Work Phone: [facility] 04-01-2023 15:42-0500 Body mass index (BMI) [Ratio] 34.8 kg/m2 Dr. Hermelinda Castillo Work Phone: [facility] 04-01-2023 15:42-0500 Body temperature 97.2 [degF] Dr. Hermelinda Castillo Work Phone: [facility] 04-01-2023 15:42-0500 Body weight 92.[address] Hermelinda Castillo Work Phone: [facility] 04-01-2023 15:42-0500 Diastolic blood pressure 84 mm[Hg] Dr. Hermelinda Castillo Work Phone: [facility] 04-01-2023 15:42-0500 Heart rate 70 /min Dr. Hermelinda Castillo Work Phone: [facility] 04-01-2023 15:42-0500 Respiratory rate 18 /min Dr. Hermelinda Castillo Work Phone: [facility] 04-01-2023 15:42-0500 SaO2% (BldA) [Mass fraction] 98 % Dr. Hermelinda Castillo Work Phone: [facility] 04-01-2023 15:42-0500 Systolic blood pressure 135 mm[Hg] Dr. Hermelinda Castillo Work Phone: [facility] 03-20-2023 15:27-0500 Body height 162.[address] Hermelinda Castillo Work Phone: [facility] 03-20-2023 15:27-0500 Body mass index (BMI) [Ratio] 34.9 kg/m2 Dr. Hermelinda Castillo Work Phone: [facility] 03-20-2023 15:27-0500 Body temperature 97.4 [degF] Dr. Hermelinda Castillo Work Phone: [facility] 03-20-2023 15:27-0500 Body weight 92.[address] Hermelinda Castillo Work Phone: [facility] 03-20-2023 15:27-0500 Diastolic blood pressure 80 mm[Hg] Dr. Hermelinda Castillo Work Phone: [facility] 03-20-2023 15:27-0500 Heart rate 68 /min Dr. Hermelinda Castillo Work Phone: [facility] 03-20-2023 15:27-0500 Respiratory rate 18 /min Dr. Hermelinda Castillo Work Phone: [facility] 03-20-2023 15:27-0500 SaO2% (BldA) [Mass fraction] 99 % Dr. Hermelinda Castillo Work Phone: [facility] 03-20-2023 15:27-0500 Systolic blood pressure 135 mm[Hg] Dr. Hermelinda Castillo Work Phone: [facility] 12-13-2022 13:04-0400 Body height 162.[address] Hermelinda Castillo Work Phone: [facility] 12-13-2022 13:04-0400 Body mass index (BMI) [Ratio] 35.2 kg/m2 Dr. Hermelinda Castillo Work Phone: [facility] 12-13-2022 13:04-0400 Body temperature 96 [degF] Dr. Hermelinda Castillo Work Phone: [facility] 12-13-2022 13:04-0400 Body weight 92.[address] Hermelinda Castillo Work Phone: [facility] 12-13-2022 13:04-0400 Diastolic blood pressure 84 mm[Hg] Dr. Hermelinda Castillo Work Phone: [facility] 12-13-2022 13:04-0400 Heart rate 72 /min Dr. Hermelinda Castillo Work Phone: [facility] 12-13-2022 13:04-0400 Respiratory rate 18 /min Dr. Hermelinda Castillo Work Phone: [facility] 12-13-2022 13:04-0400 SaO2% (BldA) [Mass fraction] 99 % Dr. Hermelinda Castillo Work Phone: [facility] 12-13-2022 13:04-0400 Systolic blood pressure 124 mm[Hg] Dr. Hermelinda Castillo Work Phone: [facility] 11-18-2022 08:32-0400 Body height 162.[address] Hermelinda Castillo Work Phone: [facility] 11-18-2022 08:32-0400 Body mass index (BMI) [Ratio] 35.2 kg/m2 Dr. Hermelinda Castillo Work Phone: [facility] 11-18-2022 08:32-0400 Body temperature 96.3 [degF] Dr. Hermelinda Castillo Work Phone: [facility] 11-18-2022 08:32-0400 Body weight 93.[address] Hermelinda Castillo Work Phone: [facility] 11-18-2022 08:32-0400 Diastolic blood pressure 86 mm[Hg] Dr. Hermelinda Castillo Work Phone: [facility] 11-18-2022 08:32-0400 Heart rate 73 /min Dr. Hermelinda Castillo Work Phone: [facility] 11-18-2022 08:32-0400 Respiratory rate 18 /min Dr. Hermelinda Castillo Work Phone: [facility] 11-18-2022 08:32-0400 SaO2% (BldA) [Mass fraction] 99 % Dr. Hermelinda Castillo Work Phone: [facility] 11-18-2022 08:32-0400 Systolic blood pressure 144 mm[Hg] Dr. Hermelinda Castillo Work Phone: [facility] 11-01-2022 11:42-0400 Body temperature 97.4 [degF] Dr. Hermelinda Castillo Work Phone: [facility] 11-01-2022 11:42-0400 Diastolic blood pressure 83 mm[Hg] Dr. Hermelinda Castillo Work Phone: [facility] 11-01-2022 11:42-0400 Heart rate 74 /min Dr. Hermelinda Castillo Work Phone: [facility] 11-01-2022 11:42-0400 Respiratory rate 16 /min Dr. Hermelinda Castillo Work Phone: [facility] 11-01-2022 11:42-0400 SaO2% (BldA) [Mass fraction] 97 % Dr. Hermelinda Castillo Work Phone: [facility] 11-01-2022 11:42-0400 Systolic blood pressure 127 mm[Hg] Dr. Hermelinda Castillo Work Phone: [facility] 10-31-2022 14:06-0400 Body height 162.[address] Hermelinda Castillo Work Phone: [facility] 10-31-2022 14:06-0400 Body weight 92.[address] Hermelinda Castillo Work Phone: [facility] 10-29-2022 14:55-0400 Body mass index (BMI) [Ratio] 35 kg/m2 Dr. Hermelinda Castillo Work Phone: [facility] 10-29-2022 12:13-0400 Body temperature 97 [degF] [facility] 10-29-2022 12:13-0400 Diastolic blood pressure 78 mm[Hg] [facility] 10-29-2022 12:13-0400 Heart rate 68 /min [facility] 10-29-2022 12:13-0400 Respiratory rate 16 /min [facility] 10-29-2022 12:13-0400 Systolic blood pressure 136 mm[Hg] [facility] 10-29-2022 07:12-0400 SaO2% (BldA) [Mass fraction] 99 % [facility] 10-29-2022 05:23-0400 Body height 162.56 cm [facility] 10-29-2022 05:23-0400 Body mass index (BMI) [Ratio] 35.5 kg/m2 [facility] 10-29-2022 05:23-0400 Body weight 93.9 kg [facility] 06-05-2022 15:03-0500 Body height 162.[address] Hermelinda Castillo Work Phone: [facility] 06-05-2022 15:03-0500 Body mass index (BMI) [Ratio] 36.7 kg/m2 Dr. Hermelinda Castillo Work Phone: [facility] 06-05-2022 15:03-0500 Body temperature 97.2 [degF] Dr. Hermelinda Castillo Work Phone: [facility] 06-05-2022 15:03-0500 Body weight 97.[address] Hermelinda Castillo Work Phone: [facility] 06-05-2022 15:03-0500 Diastolic blood pressure 82 mm[Hg] Dr. Hermelinda Castillo Work Phone: [facility] 06-05-2022 15:03-0500 Heart rate 81 /min Dr. Hermelinda Castillo Work Phone: [facility] 06-05-2022 15:03-0500 Respiratory rate 14 /min Dr. Hermelinda Castillo Work Phone: [facility] 06-05-2022 15:03-0500 SaO2% (BldA) [Mass fraction] 97 % Dr. Hermelinda Castillo Work Phone: [facility] 06-05-2022 15:03-0500 Systolic blood pressure 132 mm[Hg] Dr. Hermelinda Castillo Work Phone: [facility] 05-16-2022 10:38-0500 Body mass index (BMI) [Ratio] 36.7 kg/m2 Dr. Hermelinda Castillo Work Phone: [facility] 05-16-2022 10:38-0500 Body temperature 98.5 [degF] Dr. Hermelinda Castillo Work Phone: [facility] 05-16-2022 10:38-0500 Body weight 97.[address] Hermelinda Castillo Work Phone: [facility] 05-16-2022 10:38-0500 Diastolic blood pressure 70 mm[Hg] Dr. Hermelinda Castillo Work Phone: [facility] 05-16-2022 10:38-0500 Heart rate 69 /min Dr. Hermelinda Castillo Work Phone: [facility] 05-16-2022 10:38-0500 Respiratory rate 16 /min Dr. Hermelinda Castillo Work Phone: [facility] 05-16-2022 10:38-0500 SaO2% (BldA) [Mass fraction] 98 % Dr. Hermelinda Castillo Work Phone: [facility] 05-16-2022 10:38-0500 Systolic blood pressure 120 mm[Hg] Dr. Hermelinda Castillo Work Phone: [facility] 03-22-2022 11:15-0500 Body temperature 100.6 [degF] Dr. Hermelinda Castillo Work Phone: [facility] 03-22-2022 11:15-0500 Diastolic blood pressure 84 mm[Hg] Dr. Hermelinda Castillo Work Phone: [facility] 03-22-2022 11:15-0500 Heart rate 67 /min Dr. Hermelinda Castillo Work Phone: [facility] 03-22-2022 11:15-0500 Respiratory rate 16 /min Dr. Hermelinda Castillo Work Phone: [facility] 03-22-2022 11:15-0500 SaO2% (BldA) [Mass fraction] 94 % Dr. Hermelinda Castillo Work Phone: [facility] 03-22-2022 11:15-0500 Systolic blood pressure 132 mm[Hg] Dr. Hermelinda Castillo Work Phone: [facility] 03-22-2022 09:50-0500 Body height 162.[address] Hermelinda Castillo Work Phone: [facility] Work Phone: 03-22-2022 09:50-0500 Body mass index (BMI) [Ratio] 35.2 kg/m2 Dr. Hermelinda Castillo Work Phone: [facility] 03-22-2022 09:50-0500 Body weight [address] Hermelinda Castillo Work Phone: [facility] 03-13-2022 11:10-0500 Body height 162.6 cm Evangelina Saeed MD Work Phone: [facility] 03-13-2022 11:10-0500 Body weight 94.35 kg Evangelina Saeed MD Work Phone: [facility] 03-13-2022 11:10-0500 Diastolic blood pressure 85 mm[Hg] Evangelina Saeed MD Work Phone: [facility] 03-13-2022 11:10-0500 Heart rate 71 /min Evangelina Saeed MD Work Phone: [facility] 03-13-2022 11:10-0500 Systolic blood pressure 142 mm[Hg] Evangelina Saeed MD Work Phone: [facility] 02-27-2022 08:15-0500 Body mass index (BMI) [Ratio] 36 kg/m2 Dr. Hermelinda Castillo Work Phone: [facility] 02-27-2022 08:15-0500 Body temperature 98 [degF] Dr. Hermelinda Castillo Work Phone: [facility] 02-27-2022 08:15-0500 Body weight 95.[address] Hermelinda Castillo Work Phone: [facility] 02-27-2022 08:15-0500 Diastolic blood pressure 80 mm[Hg] Dr. Hermelinda Castillo Work Phone: [facility] 02-27-2022 08:15-0500 Heart rate 77 /min Dr. Hermelinda Castillo Work Phone: [facility] 02-27-2022 08:15-0500 Respiratory rate 16 /min Dr. Hermelinda Castillo Work Phone: [facility] 02-27-2022 08:15-0500 SaO2% (BldA) [Mass fraction] 100 % Dr. Hermelinda Castillo Work Phone: [facility] 02-27-2022 08:15-0500 Systolic blood pressure 118 mm[Hg] Dr. Hermelinda Castillo Work Phone: [facility] 02-07-2022 16:22-0400 Body height 162.[address] Hermelinda Castillo Work Phone: [facility] Work Phone: 02-07-2022 16:22-0400 Body mass index (BMI) [Ratio] 35.5 kg/m2 Dr. Hermelinda Castillo Work Phone: [facility] Work Phone: 02-07-2022 16:22-0400 Body temperature 96.9 [degF] Dr. Hermelinda Castillo Work Phone: [facility] Work Phone: 02-07-2022 16:22-0400 Body weight 93.[address] Hermelinda Castillo Work Phone: [facility] Work Phone: 02-07-2022 16:22-0400 Diastolic blood pressure 88 mm[Hg] Dr. Hermelinda Castillo Work Phone: [facility] Work Phone: 02-07-2022 16:22-0400 Heart rate 72 /min Dr. Hermelinda Castillo Work Phone: [facility] Work Phone: 02-07-2022 16:22-0400 Respiratory rate 16 /min Dr. Hermelinda Castillo Work Phone: [facility] Work Phone: 02-07-2022 16:22-0400 SaO2% (BldA) [Mass fraction] 99 % Dr. Hermelinda Castillo Work Phone: [facility] Work Phone: 02-07-2022 16:22-0400 Systolic blood pressure 132 mm[Hg] Dr. Hermelinda Castillo Work Phone: [facility] Work Phone: 11-20-2021 09:20-0400 Body height 162.[address] Hermelinda Castillo Work Phone: [facility] Work Phone: 11-20-2021 09:20-0400 Body mass index (BMI) [Ratio] 35.2 kg/m2 Dr. Hermelinda Castillo Work Phone: [facility] Work Phone: 11-20-2021 09:20-0400 Body temperature 98 [degF] Dr. Hermelinda Castillo Work Phone: [facility] Work Phone: 11-20-2021 09:20-0400 Body weight 92.[address] Hermelinda Castillo Work Phone: [facility] Work Phone: 11-20-2021 09:20-0400 Diastolic blood pressure 74 mm[Hg] Dr. Hermelinda Castillo Work Phone: [facility] Work Phone: 11-20-2021 09:20-0400 Heart rate 69 /min Dr. Hermelinda Castillo Work Phone: [facility] Work Phone: 11-20-2021 09:20-0400 Respiratory rate 14 /min Dr. Hermelinda Castillo Work Phone: [facility] Work Phone: 11-20-2021 09:20-0400 SaO2% (BldA) [Mass fraction] 98 % Dr. Hermelinda Castillo Work Phone: [facility] Work Phone: 11-20-2021 09:20-0400 Systolic blood pressure 126 mm[Hg] Dr. Hermelinda Castillo Work Phone: [facility] Work Phone: 08-23-2021 10:02-0400 Body mass index (BMI) [Ratio] 35.5 kg/m2 Dr. Hermelinda Castillo Work Phone: [facility] Work Phone: 08-23-2021 10:02-0400 Body weight 93.[address] Hermelinda Castillo Work Phone: [facility] Work Phone: 08-23-2021 10:02-0400 Diastolic blood pressure 86 mm[Hg] Dr. Hermelinda Castillo Work Phone: [facility] Work Phone: 08-23-2021 10:02-0400 Systolic blood pressure 124 mm[Hg] Dr. Hermelinda Castillo Work Phone: [facility] Work Phone: 08-10-2021 09:07-0400 Body mass index (BMI) [Ratio] 35.5 kg/m2 Dr. Hermelinda Castillo Work Phone: [facility] Work Phone: 08-10-2021 09:07-0400 Body temperature 98.1 [degF] Dr. Hermelinda Castillo Work Phone: [facility] Work Phone: 08-10-2021 09:07-0400 Body weight 93.[address] Hermelinda Castillo Work Phone: [facility] Work Phone: 08-10-2021 09:07-0400 Diastolic blood pressure 80 mm[Hg] Dr. Hermelinda Castillo Work Phone: [facility] Work Phone: 08-10-2021 09:07-0400 Heart rate 75 /min Dr. Hermelinda Castillo Work Phone: [facility] Work Phone: 08-10-2021 09:07-0400 Respiratory rate 14 /min Dr. Hermelinda Castillo Work Phone: [facility] Work Phone: 08-10-2021 09:07-0400 SaO2% (BldA) [Mass fraction] 98 % Dr. Hermelinda Castillo Work Phone: [facility] Work Phone: 08-10-2021 09:07-0400 Systolic blood pressure 114 mm[Hg] Dr. Hermelinda Castillo Work Phone: [facility] Work Phone: 12-30-2018 11:16-0400 Body Temperature 100 [degF] Nick [facility] [place] 12-30-2018 11:16-0400 BP Diastolic 104 mm[Hg] [facility] [place] 12-30-2018 11:16-0400 BP Systolic 149 mm[Hg] [email or web address] [facility] , [place] 12-30-2018 11:16-0400 Pulse (Heart Rate) 73 /min John Romero [facility], [place] 12-30-2018 11:16-0400 Pulse Oximetry 96 % UrvashistiQRdWibki [facility] , [place] 12-30-2018 11:16-0400 Respiratory Rate 16 /min UrvashistiQRdjiWibki [facility] [place] 12-28-2018 05:35-0400 BMI (Body Mass Index) 49.26 kg/m2 John Romero [facility], [place] 12-28-2018 05:35-0400 Body weight 130.18 kg John LandinstiQRdjiWibki [facility] , [place] 12-28-2018 05:35-0400 Height 162.6 cm John AlanizWibki [facility] , [place] 12-22-2018 07:40-0400 BMI (Body Mass Index) 49.26 kg/m2 John AlanizWibki [facility], [place] 12-22-2018 07:40-0400 Body Temperature 98.2 [degF] [facility] [place] 12-22-2018 07:40-0400 Body weight 130.18 kg John Romero [facility] , [place] 12-22-2018 07:40-0400 BP Diastolic 70 mm[Hg] John [employer] [facility] , [place] 12-22-2018 07:40-0400 BP Systolic 115 mm[Hg] Urvashigrafakis [facility] , [place] 12-22-2018 07:40-0400 Height 162.6 cm John Fox [facility] , [place] 12-22-2018 07:40-0400 Pulse (Heart Rate) 70 /min John Fox [facility] 12-22-2018 07:40-0400 Pulse Oximetry 97 % John Fox [facility] [place] 12-22-2018 07:40-0400 Respiratory Rate 16 /min John Fox [facility], [place] 08-30-2016 09:47-0400 BMI (Body Mass Index) 50.63 kg/m2 Jarret Reece MD [facility] Work Phone: 08-30-2016 09:47-0400 Body Temperature 98.6 [degF] Jarret Reece MD [facility] Work Phone: 08-30-2016 09:47-0400 BP Diastolic 82 mm[Hg] Jarret Reece MD [facility] Work Phone: 08-30-2016 09:47-0400 BP Systolic 126 mm[Hg] Jarret Reece MD [facility] Work Phone: 08-30-2016 09:47-0400 BSA (Body Surface Area) 2.34 m2 Jarret Reece MD [facility] Work Phone: 08-30-2016 09:47-0400 Height 163.83 cm Jarret [facility] Work Phone: 08-30-2016 09:47-0400 Pulse (Heart Rate) 62 /min Jarret [facility] Work Phone: 08-30-2016 09:47-0400 Pulse Oximetry 97 % Jarret Rodriguez [facility] Work Phone: 08-30-2016 09:47-0400 Respiratory Rate 16 /min Jarret Rodriguez [facility] Work Phone: 08-30-2016 09:47-0400 Weight 135.9 kg Jarret Reece MD [facility] Work Phone: 08-21-2016 13:12-0400 BMI (Body Mass Index) 50.12 kg/m2 [facility] Work Phone: 08-21-2016 13:12-0400 Body Temperature 98.3 [degF] Jarret Reece MD [facility] Work Phone: 08-21-2016 13:12-0400 BP Diastolic 84 mm[Hg] Jarret Reece MD [facility] Work Phone: 08-21-2016 13:12-0400 BP Systolic 123 mm[Hg] Jarret Reece MD [facility] Work Phone: 08-21-2016 13:12-0400 BSA (Body Surface Area) 2.33 m2 Jarret Reece MD [facility] Work Phone: 08-21-2016 13:12-0400 Height 163.83 cm Jarret Reece MD [facility] Work Phone: 08-21-2016 13:12-0400 Pulse (Heart Rate) 60 /min Jarret Rodriguez [facility] Work Phone: 08-21-2016 13:12-0400 Pulse Oximetry 97 % Jarret Reece MD [facility] Work Phone: 08-21-2016 13:12-0400 Respiratory Rate 16 /min Jarret Reece MD [facility] Work Phone: 08-21-2016 13:12-0400 Weight 134.54 kg Jarret Reece MD [facility] Work Phone: 07-03-2016 11:18-0400 BMI (Body Mass Index) 49.98 kg/m2 Aziza [facility] Work Phone: 07-03-2016 11:18-0400 Body Temperature 98.6 [degF] Aziza Simons [facility] Work Phone: 07-03-2016 11:18-0400 BP Diastolic 85 mm[Hg] Aziza Simons [facility] Work Phone: 07-03-2016 11:18-0400 BP Systolic 121 mm[Hg] Aziza Rodriguez [facility] Work Phone: 07-03-2016 11:18-0400 BSA (Body Surface Area) 2.33 m2 Aziza Rodriguez [facility] Work Phone: 07-03-2016 11:18-0400 Height 163.83 cm Aziza Rodriguez [facility] Work Phone: 07-03-2016 11:18-0400 Pulse (Heart Rate) 64 /min Aziza Rodriguez [facility] Work Phone: 07-03-2016 11:18-0400 Pulse Oximetry 98 % Aziza Rodriguez [facility] Work Phone: 07-03-2016 11:18-0400 Respiratory Rate 16 /min Aziza S[facility] Work Phone: 07-03-2016 11:18-0400 Weight 134.17 kg Aziza Rordiguez [facility] Work Phone: Encounters Encounter Date Encounter Type Care Provider Facility Start: 01-10-2025 End: 01-10-[address] Stephane Melgar MD -[facility] Work Phone: Start: 01-10-2025 End: 01-10-2025 ambulatory Giancarlo Posadas ASSISTANT ASSOCIATE PROFESSOR-C Work Phone: -[facility] Start: 01-06-[address] [facility] Facility :[facility] Start: 01-06-2025 Non-patient / Non-visit Dr. Maximiliano Murphy MD -[facility] Start: 01-06-2025 End: 01-06-2025 ambulatory Giancarlo Posadas ASSISTANT ASSOCIATE PROFESSOR-C Work Phone: -Cat Scan [facility] Start: 01-06-2025 End: 01-06-2025 Patient encounter procedure Adriana Irene ASSISTANT ASSOCIATE PROFESSOR-C -Cat Scan [facility] Work Phone: Start: 01-06-2025 End: 01-06-[address] [facility] Facility:[facility] Start: 01-03-[address] Stephane Melgar MD -[facility] Start: 01-03-2025 ambulatory Stephane Melgar Facility:[facility] Start: 12-23-2024 Patient encounter procedure Giancarlo Posadas ASSISTANT ASSOCIATE PROFESSOR-C Work Phone: [facility] Start: 12-10-2024 End: 12-10-2024 ambulatory Giancarlo Posadas ASSISTANT ASSOCIATE PROFESSOR-C Work Phone: -Laboratory Specimen Start: 12-10-2024 End: 12-10-2024 Patient encounter procedure Chana Bansal CNM -Laboratory Specimen Work Phone: Start: 12-10-2024 End: 12-10-2024 Patient encounter procedure Chana Bansal CNM -[facility] Work Phone: Start: 12-10-2024 End: 12-10-2024 ambulatory Giancarlo Posadas ASSISTANT ASSOCIATE PROFESSOR-C Work Phone: -[facility] Start: 12-10-2024 End: 12-10-2024 ambulatory Giancarlo Posadas [facility] Facility:[facility] Start: 12-08-2024 End: 12-08-2024 ambulatory Giancarlo Posadas ASSISTANT ASSOCIATE PROFESSOR-C Work Phone: -Laboratory Specimen Start: 12-08-2024 End: 12-08-2024 Patient encounter procedure Adriana Irene ASSISTANT ASSOCIATE PROFESSOR-C -Laboratory Specimen Work Phone: Start: 12-07-2024 End: 12-08-2024 ambulatory Giancarlo Posadas ASSISTANT ASSOCIATE PROFESSOR-C Work Phone: -Ultrasound [facility] Start: 12-07-2024 End: 12-07-2024 Patient encounter procedure Adriana Irene ASSISTANT ASSOCIATE PROFESSOR-C -Ultrasound [facility] Work Phone: Start: 12-07-2024 End: 12-07-2024 ambulatory Adriana Irene Facility:[facility] Start: 11-29-2024 End: 11-29-2024 ambulatory Giancarlo Posadas ASSISTANT ASSOCIATE PROFESSOR-C Work Phone: -Laboratory Start: 11-29-2024 End: 11-29-2024 Patient encounter procedure Marcelo Taylor ASSISTANT ASSOCIATE PROFESSOR-C -Laboratory Work Phone: Start: 11-29-2024 End: 11-29-[address] [facility] Facility:[facility] Start: 11-22-2024 Registered [facility] -Laboratory [facility] Start: 11-22-[address] [facility] Facility :[facility] Start: 11-08-2024 End: 11-08-2024 Admission to same day surgery center Dr. Primitivo Lockhart MD -[facility] Start: 11-08-2024 End: 11-08-2024 ambulatory Giancarlo Bobder ASSISTANT ASSOCIATE PROFESSOR-C Work Phone: -Surgical Day Care Start: 10-20-2024 End: 10-20-2024 ambulatory Giancarlo Posadas ASSISTANT ASSOCIATE PROFESSOR-C Work Phone: -Outpatient Breast Imaging Start: 10-20-2024 End: 10-20-2024 Patient encounter procedure Adriana Irene ASSISTANT ASSOCIATE PROFESSOR-C -Outpatient Breast Imaging Work Phone: Start: 10-20-2024 End: 10-20-2024 [facility] Start: 09-27-2024 End: 09-27-2024 ambulatory Giancarlo Bobder ASSISTANT ASSOCIATE PROFESSOR-C Work Phone: [facility] Work Phone: Start: 09-27-2024 End: 09-27-2024 Patient encounter procedure Conchita Burleson PA -Ultrasound [facility] Work Phone: Start: 09-27-2024 End: 09-27-[address] [facility] Facility:[facility] Start: 09-15-2024 End: 09-15-2024 ambulatory Giancarlo Bobder ASSISTANT ASSOCIATE PROFESSOR-C Work Phone: [facility] Work Phone: Start: 09-15-2024 End: 09-15-2024 Patient encounter procedure Adriana Irene ASSISTANT ASSOCIATE PROFESSOR-C -Laboratory Work Phone: Start: 09-15-2024 End: 09-15-[address] [facility] Facility:[facility] Start: 09-09-2024 End: 09-09-2024 Patient encounter procedure Conchita MUNIZ -[facility] Work Phone: Start: 09-09-2024 End: 09-09-2024 ambulatory Giancarlo Posadas VSC Facility:[facility] Start: 08-26-2024 End: 08-26-2024 ambulatory Giancarlo Posadas ASSISTANT ASSOCIATE PROFESSOR-C Work Phone: [facility] Work Phone: Start: 08-26-2024 End: 08-26-[address] Jose Suresh MD -Ultrasound, [facility] Work Phone: Start: 08-26-2024 End: 08-26-2024 ambulatory Jose Suresh Facility:[facility] Start: 08-12-2024 End: 08-12-2024 ambulatory Giancarlo Posadas ASSISTANT ASSOCIATE PROFESSOR-C Work Phone: [facility] Work Phone: Start: 08-12-2024 End: 08-12-2024 Patient encounter procedure Catherine Guerrerofield -Radiology, [place] Work Phone: Start: 08-12-2024 End: 08-12-2024 ambulatory [facility] Facility:[facility] Start: 07-26-2024 End: 07-26-2024 Admission to same day surgery center Dr. Primitivo Lockhart MD -Surgical Day Care Start: 07-26-2024 End: 07-26-2024 ambulatory Giancarlo Posadas ASSISTANT ASSOCIATE PROFESSOR-C Work Phone: [facility] Work Phone: Start: 07-06-2024 End: 07-06-[address] Stephane Melgar MD -[facility] Work Phone: Start: 07-06-2024 End: 07-06-2024 ambulatory Giancarlo Posadas [facility]SC Facility:[facility] Start: 06-09-2024 End: 06-09-2024 Patient encounter procedure Giancarlo Posadas ASSISTANT ASSOCIATE PROFESSOR-C -[facility] Start: 06-09-2024 End: 06-09-2024 ambulatory Giancarlo Posadas [facility] Facility:[facility] Start: 05-19-2024 ambulatory Giancarlo Posadas [facility] Facility :[facility] Start: 05-19-2024 Non-patient / Non-visit Ramez Villatoro DO [facility] Start: 05-19-2024 End: 05-19-2024 Admission to same day surgery center Ramez Villatoro DO -Endoscopy Work Phone: Start: 05-19-2024 End: 05-19-2024 ambulatory Giancarlo Posadas [facility] Facility:[facility] Start: 04-09-2024 End: 04-09-[address] Joaquin Boyce MD -[facility] Work Phone: Start: 04-09-2024 End: 04-09-2024 ambulatory Giancarlo Posadas [facility] Facility:[facility] Start: 03-25-2024 End: 03-25-2024 ambulatory Giancarlo Posadas [facility] Facility:[facility] Start: 03-22-2024 End: 03-22-2024 ambulatory Giancarlo Posadas [facility] Facility:[facility] Start: 03-17-2024 End: 03-17-2024 ambulatory Giancarlo Posadas [facility] Facility:[facility] Start: 03-15-2024 End: 03-15-2024 ambulatory Giancarlo Posadas [facility] Facility:[facility] Start: 02-23-2024 End: 02-23-2024 ambulatory Giancarlo Posadas [facility] Facility:[facility] Start: 02-19-2024 End: 02-19-2024 ambulatory Giancarlo Posdaas VSC Facility:[facility] Start: 08-05-2023 Non-patient / Non-visit ASSISTANT ASSOCIATE PROFESSOR-C Giancarlo Posadas ASSISTANT ASSOCIATE PROFESSOR [facility] Start: 08-05-2023 End: 08-05-2023 ambulatory ASSISTANT ASSOCIATE PROFESSOR-C Giancarlo Bobder ASSISTANT ASSOCIATE PROFESSOR [facility] Work Phone: Start: 08-05-2023 End: 08-05-2023 Patient encounter procedure ASSISTANT ASSOCIATE PROFESSOR-C Giancarlo Bobder ASSISTANT ASSOCIATE PROFESSOR [facility]-Cardiovascular Services Work Phone: Start: 07-18-2023 End: 07-18-2023 ambulatory ASSISTANT ASSOCIATE PROFESSOR-C Giancarlo Posadas ASSISTANT ASSOCIATE PROFESSOR Work Phone: [facility] Work Phone: Start: 07-18-2023 End: 07-18-2023 Patient encounter procedure ASSISTANT ASSOCIATE PROFESSOR-Suly Posadas ASSISTANT ASSOCIATE PROFESSOR Work Phone: [facility], [facility] Work Phone: Start: 07-07-2023 End: 07-07-[address] Hermelinda Castillo Work Phone: [facility] Work Phone: Start: 07-07-2023 End: 07-07-[address] Hermelinda Castillo Work Phone: [facility]-Laboratory Work Phone: Start: 07-01-2023 End: 07-01-[address] Hermelinda Castillo Work Phone: [facility] Work Phone: Start: 06-24-[address] Narda Castillo Work Phone: [facility] Start: 06-09-2023 End: 06-09-[address] Hermelinda Castillo Work Phone: [facility] Work Phone: Start: 06-09-2023 End: 06-09-[address] Hermelinda Castillo Work Phone: [facility]-Cat Scan, [facility] Work Phone: Start: 04-24-2023 Non-patient / Non-visit Dr. Hermelinda Castillo Work Phone: [facility] Start: 04-24-2023 End: 04-24-2023 Admission to same day surgery center Dr. Hermelinda Castillo Work Phone: [facility]-Endoscopy Work Phone: Start: 04-22-2023 End: 04-22-2023 Emergency department patient visit Dr. Hermelinda Castillo Work Phone: [facility]-Emergency Department Work Phone: Start: 04-11-2023 End: 04-11-[address] Hermelinda Castillo Work Phone: [facility] Gastroenterology Work Phone: Start: 04-03-2023 End: 04-03-[address] Hermelinda Castillo Work Phone: [facility]-Radiology, [facility] Work Phone: Start: 04-01-2023 End: 04-01-[address] Hermelinda Castillo Work Phone: [facility] Work Phone: Start: 03-20-2023 End: 03-20-[address] Hermel[facility] Castillo [facility] Work Phone: Start: 03-20-2023 End: 03-20-[address] Hermelinda Castillo Work Phone: [facility] Work Phone: Start: 03-17-2023 End: 03-17-[address] Hermelinda Castillo Work Phone: [facility] Work Phone: Start: 03-17-2023 End: 03-17-[address] Hermelinda Castillo Work Phone: [facility]-Radiology, [facility] Work Phone: Start: 03-07-2023 End: 03-07-[address] Hermelinda Castillo Work Phone: [facility]-Ultrasound, [facility] Work Phone: Start: 02-27-2023 End: 02-27-[address] Hermelinda Castillo Work Phone: [facility] Work Phone: Start: 02-27-2023 End: 02-27-[address] Hermelinda Castillo Work Phone: [facility]-Laboratory Work Phone: Start: 12-25-2022 End: 12-25-[address] Hermelinda Castillo Work Phone: [facility] Work Phone: Start: 12-25-2022 End: 12-25-[address] Hermelinda Castillo Work Phone: [facility] Work Phone: Start: 12-13-2022 End: 12-13-2022 Encounter for general adult medical examination without abnormal findings Dr. Hermelinda Castillo Work Phone: [facility] Start: 12-13-2022 End: 12-13-[address] Hermelinda Castillo Work Phone: [facility] Internal Medicine Work Phone: Start: 12-13-[address] Calra Castillo Work Phone: [facility]-Employee Health Start: 11-18-2022 End: 11-18-[address] Hermelinda Castillo Work Phone: [facility] Work Phone: Start: 11-18-2022 End: 11-18-[address] Hermelinda Castillo Work Phone: [facility] Internal Medicine Work Phone: Start: 11-12-2022 End: 11-12-[address] Hermelinda Castillo Work Phone: [facility] Work Phone: Start: 11-12-2022 End: 11-12-[address] Hermelinda Castillo Work Phone: [facility]-Laboratory, OP Pavilion Start: 11-01-2022 Non-patient / Non-visit Dr. Hermelinda Castillo Work Phone: [facility] Start: 11-01-2022 Non-patient / Non-visit Dr. Hermelinda Castillo Work Phone: [facility] Inpatient Physicians Work Phone: Start: 10-31-2022 Non-patient / Non-visit Dr. Hermelinda Castillo Work Phone: [facility] Start: 10-31-2022 Non-patient / Non-visit Dr. Hermelinda Castillo Work Phone: [facility] Inpatient Physicians Work Phone: Start: 10-30-2022 Non-patient / Non-visit Dr. Hermelinda Castillo Work Phone: [facility] Start: 10-30-2022 Non-patient / Non-visit Dr. Hermelinda Castillo Work Phone: [facility] Inpatient Physicians Work Phone: Start: 10-29-2022 Non-patient / Non-visit Dr. Hermelinda Castillo Work Phone: [facility] Start: 10-29-2022 Non-patient / Non-visit Dr. Hermelinda Castillo Work Phone: [facility] Inpatient Physicians Work Phone: Start: 10-29-2022 End: 11-01-2022 Evaluation and management of inpatient [facility]-Progressive Care Unit Work Phone: Start: 10-29-2022 observation encounter [facility] Work Phone: Start: 10-18-2022 End: 10-18-[address] Hermelinda Castillo Work Phone: [facility] Work Phone: Start: 10-18-2022 End: 10-18-[address] Hermelinda Castillo Work Phone: [facility]-Physical Therapy Work Phone: Start: 10-18-2022 Registered Recurring [facility]-Physical Therapy Work Phone: Start: 09-02-[address] Narda Castillo Work Phone: [facility]-Physical Therapy Start: 08-29-2022 End: 08-29-[address] Hermelinda Castillo Work Phone: [facility] Work Phone: Start: 08-29-2022 End: 08-29-[address] Hermelinda Castillo Work Phone: [facility] Start: 06-12-2022 End: 06-12-[address] Hermelinda Castillo Work Phone: [facility] Work Phone: Start: 06-12-2022 End: 06-12-[address] Hermelinda Castillo Work Phone: [facility] Start: 06-05-2022 End: 06-05-[address] Hermelinda Castillo Work Phone: [facility] Internal Medicine Start: 05-16-2022 End: 05-16-[address] Hermelinda Castillo Work Phone: [facility] Internal Medicine Start: 03-22-2022 Non-patient / Non-visit Dr. Hermelinda Castillo Work Phone: [facility] Start: 03-22-2022 End: 03-22-2022 Admission to same day surgery center Dr. Hermelinda Castillo Work Phone: [facility]-Endoscopy Start: 03-22-2022 End: 03-22-[address] Hermelinda Castillo Work Phone: [facility] Work Phone: Start: 03-13-2022 End: 03-14-2022 Orders [...] encounter procedure Dr. Hermelinda Castillo Work Phone: [facility] Start: 02-20-2022 ambulatory Corey Rainey MD Work Phone: Endocrinology Comment on above: Catherine Stair Start: 02-13-2022 End: 02-13-[address] Hermelinda Castillo Work Phone: [facility] Work Phone: Start: 02-13-2022 End: 02-13-[address] Hermelinda Castillo Work Phone: [facility]-Laboratory, OP Pavilion Start: 02-12-2022 ambulatory Corey Rainey MD Work Phone: Endocrinology Comment on above: Family Dr. [place] Start: 02-08-2022 End: 02-08-2022 ambulatory COREY RAINEY Facility:[facility] Start: 02-08-2022 End: 02-08-2022 ambulatory Corey Rainey MD Work Phone: Endocrinology Comment on above: Dysphagia, unspecifi ed type (Primary Dx); Uninodular goiter (nontoxic) Start: 02-08-2022 End: 02-08-2022 Telemedicine consultation with patient Corey Rainey MD Work Phone: [facility] Start: 02-07-2022 End: 02-07-[address] Hermelinda Castillo Work Phone: [facility] Internal Medicine Start: 12-27-2021 Telephone encounter Corey Grant Work Phone: Endocrinology Comment on above: Appointment (Called patient and left msg to call [phone] to schedule consultation with Dr. Kristofer rainey per [place] also let patient know can schedule appointment herself on mychart) Start: 12-26-2021 End: 12-26-[address] Hermelinda Castillo Work Phone: [facility] Work Phone: Start: 12-26-2021 End: 12-26-[address] Hermelinda Castillo Work Phone: [facility]-Laboratory, OP Pavilion Start: 12-26-2021 Non-patient / Non-visit Dr. Hermelinda Castillo Work Phone: [facility] Start: 11-30-2021 End: 11-30-[address] Hermelinda Castillo Work Phone: [facility] Start: 11-21-[address] Clara Castillo Work Phone: [facility]-Employee Health Start: 11-21-2021 End: 11-21-[address] Hermelinda Castillo Work Phone: [facility]-Laboratory, OP Pav[facility] Start: 11-20-2021 End: 11-20-[address] Hermelinda Castillo Work Phone: [facility] Start: 10-01-2021 End: 10-01-[address] Heremlinda Castillo Work Phone: [facility]-Ultrasound, [facility] Start: 08-23-2021 End: 08-23-[address] Hermelinda Castillo Work Phone: [facility] Start: 08-20-2021 End: 08-20-[address] Hermelinda Castillo Work Phone: [facility] Start: 08-10-2021 End: 08-10-[address] Hermelinda Castillo Work Phone: [facility] Start: 12-15-[address] Hermelinda Castillo Work Phone: [facility] Start: 03-07-2020 End: 03-07-2020 Subsequent hospital visit by physician John Romero Work Phone: [facility] Start: 04-27-2019 End: 04-27-2019 Subsequent hospital visit by physician Leyda Rosas CNP Work Phone: [facility] Start: 01-28-2019 End: 01-28-2019 Subsequent hospital visit by physician John Romero Work Phone: [facility] Start: 01-22-2019 End: 01-22-2019 Patient encounter procedure JOHN ROMERO [facility] Start: 01-07-2019 End: 01-07-2019 Subsequent hospital visit by physician John Romero Work Phone: [facility] Dept Start: 12-28-2018 End: 12-30-2018 Evaluation and management of inpatient John Romero Work Phone: [facility] H6 TELEMETRY Comment on above: Post-op pain (Primar y Dx) Start: 12-22-2018 End: 12-22-2018 Subsequent hospital visit by physician Leyda Almeida Work Phone: [facility] [address] Comment on above: Hypertension, unspec ified type; PETER on CPAP; Type 2 diabetes mellitus with complication, unspecified whether senior living insulin use (HCC); Gastroesophageal reflux disease, esophagitis presence not specified Start: 12-22-2018 End: 12-22-2018 Subsequent hospital visit by physician John Romero Work Phone: [facility] Pre-Admit Testing Comment on above: Arrived Start: 12-07-2018 End: 12-07-2018 Subsequent hospital visit by physician Xiao Danielle Work Phone: [facility] Dept Start: 12-03-2018 End: 12-03-2018 Subsequent hospital visit by physician Jonh Romero Work Phone: [facility] Comment on above: PETER on CPAP; Hypertension, unspecified type; Screening for diabetes mellitus; Prediabetes Start: 07-31-2018 End: 07-31-2018 Patient encounter procedure LUCIANO NAILS [facility] Start: 07-23-2018 End: 07-24-2018 Patient encounter procedure Yifan A Ulysses Facility:[facility] Start: 07-23-2018 Patient encounter procedure Facility:[id number] Start: 07-22-2018 End: 07-23-2018 Patient encounter procedure Yifan A Ulysses Facility:[facility] Start: 07-15-2018 End: 07-16-2018 Patient encounter procedure Timothy Guy Facility:[facility] Start: 01-28-2018 End: 01-29-2018 Patient encounter procedure Timothy Guy Facility:[facility] Start: 01-28-2018 Patient encounter procedure Facility:[id number] Start: 01-13-2018 End: 01-14-2018 Patient encounter procedure Timothy P Veneciaimelda Facility:[facility] Start: 01-13-2018 End: 01-14-2018 Patient encounter procedure Timothy uGy Facility:[facility] Start: 01-13-2018 Patient encounter procedure Facility:[id number] Start: 01-08-2018 End: 01-08-2018 Patient encounter procedure Timothy Guy Facility:[facility] Procedures Date Procedure Procedure Detail Performing Clinician Start: 01-06-2025 CT angiography of coronary arteries Giancarlo Posadas ASSISTANT ASSOCIATE PROFESSOR-C Work Phone: Start: 01-03-2025 Albumin/Globulin ratio Giancarlo Posadas ASSISTANT ASSOCIATE PROFESSOR-C Work Phone: Start: 01-03-2025 Estimated creatinine clearance Giancarlo Lott r ASSISTANT ASSOCIATE PROFESSOR-C Work Phone: Start: 01-03-2025 Immunoglobulin M measurement Giancarlo Posadas ASSISTANT ASSOCIATE PROFESSOR-C Work Phone: Start: 01-03-2025 Urine lambda light chain measurement Giancarlo Posadas ASSISTANT ASSOCIATE PROFESSOR-C Work Phone: Start: 12-10-2024 Urine culture Giancarlo Posadas ASSISTANT ASSOCIATE PROFESSOR-C Work Phone: Start: 12-08-2024 Urine culture Giancarlo Posadas ASSISTANT ASSOCIATE PROFESSOR-C Work Phone: Start: 12-07-2024 Complete ultrasound of kidneys and bladder Giancarlo Posadas ASSISTANT ASSOCIATE PROFESSOR-C Work Phone: Start: 11-29-2024 Urnls dip stick/tablet reagent auto microscopy Giancarlo Posadas ASSISTANT ASSOCIATE PROFESSOR-C Work Phone: Start: 11-22-2024 Urnls dip stick/tablet reagent auto microscopy Giancarlo Posadas ASSISTANT ASSOCIATE PROFESSOR-C Work Phone: Start: 11-22-2024 Serum inorganic phosphate measurement Giancarlo Posadas ASSISTANT ASSOCIATE PROFESSOR-C Work Phone: Start: 11-08-2024 Epidural anesthesia Giancarlo Posadas ASSISTANT ASSOCIATE PROFESSOR-C Work Phone: Start: 11-08-2024 X-ray of lumbar spine, two or three views Giancarlo Posadas ASSISTANT ASSOCIATE PROFESSOR-C Work Phone: Start: 11-08-2024 Injection of facet joint Giancarlo Posadas ASSISTANT ASSOCIATE PROFESSOR-C Work Phone: Start: 11-08-2024 End: 11-08-2024 Injection of spinal epidural space Giancarlo Posadas ASSISTANT ASSOCIATE PROFESSOR-C Work Phone: Start: 10-20-2024 Mammography Giancarlo Posadas ASSISTANT ASSOCIATE PROFESSOR-C Work Phone: Start: 10-20-2024 Ultrasonography of breast Giancarlo Posadas ASSISTANT ASSOCIATE PROFESSOR- C Work Phone: Start: 09-27-2024 Total iron binding capacity measurement Giancarlo Posadas ASSISTANT ASSOCIATE PROFESSOR-C Work Phone: Start: 09-27-2024 Ultrasound elastography of liver Giancarlo mccray ASSISTANT ASSOCIATE PROFESSOR-C Work Phone: Start: 09-15-2024 Follicle stimulating hormone measurement Giancarlo Posadas ASSISTANT ASSOCIATE PROFESSOR-C Work Phone: Comment on above: FEMALE:Follicular: 1.4 - 18.1 mIU/mLMidc ycle: 3.4 - 33.4 mIU/mLLuteal: 1.5 - 9.1 mIU/mLPost Menopause: 23.0 - 116.3 mIU/mLMALE: 1.4 - 18.1 mIU/mL Start: 09-15-2024 Luteinizing hormone measurement Giancarlo tinoco ASSISTANT ASSOCIATE PROFESSOR-C Work Phone: Comment on above: FEMALE:Follicular: 1.9-12.5 mIU/mLMidcyc le: 8.7-76.3 mIU/mLLuteal: 0.5-16.9 mIU/mLPost Menopause: 15.9-54.0 mIU/mLMALE:20-70 Years: 1.5-9.3 mIU/mL>70 Years: 3.1-34.6 mIU/mL Start: 09-15-2024 Serum progesterone measurement Giancarlo ortiz ASSISTANT ASSOCIATE PROFESSOR-C Work Phone: Comment on above: Follicular phase 0.1 - 0.9 Luteal phase 1.8 - 23.9 Ovulation phase 0.1 - 12.0 First trimester 11.0 - 44.3 Second trimester 25.4 - 83.3 Third trimester 58.7 - 214.0 Postmenopausal 0.0 - 0.1Performed at: - [facility] [id number] [place], [place] [id number] Director: Dipesh Nagy PhD, Phone: [phone] Start: 08-26-2024 US scan of thyroid Giancarlo Posadas ASSISTANT ASSOCIATE PROFESSOR-C Work Phone: Start: 08-12-2024 Plain x-ray of pelvis and lower extremity Giancarlo Posadas ASSISTANT ASSOCIATE PROFESSOR-C Work Phone: Start: 08-12-2024 X-ray of thoracic spine, three views Giancarlo Posadas ASSISTANT ASSOCIATE PROFESSOR-C Work Phone: Start: 07-26-2024 Local anesthetic sacral epidural block Giancarlo Posadas ASSISTANT ASSOCIATE PROFESSOR-C Work Phone: Start: 07-26-2024 Injection of spinal epidural space Giancarlo Posadas ASSISTANT ASSOCIATE PROFESSOR-C Work Phone: Start: 07-26-2024 Injection using fluoroscopic guidance Giancarlo Posadas ASSISTANT ASSOCIATE PROFESSOR-C Work Phone: Start: 12-23-2023 Measurement of renal function Giancarlo Posadas ASSISTANT ASSOCIATE PROFESSOR-C Work Phone: Comment on above: GFR Calc Start: 07-18-2023 Ultrasound elastography of liver ASSISTANT ASSOCIATE PROFESSOR-C Miah merlyn Posadas ASSISTANT ASSOCIATE PROFESSOR Work Phone: Start: 06-09-2023 Computed tomography of [...] Start: 06-12-[address] Hermelinda Castillo Work Phone: Start: 03-22-[address] Hermelinda [...] Romero Work Phone: Start: 12-30-2018 BASIC METABOLIC PANEL [...] Phone: Start: 12-29-2018 Assay of magnesium Alen Michael Work Phone: Start: 12-29-2018 BASIC METABOLIC PANEL [...] gross&microscopic exam John Romero Work Phone: Start: 09-09-2019 Gluc bld gluc mntr dev cleared fda [...] H/O: hysterectomy History of hysterectomy Dr. Hermelinda Castillo Work Phone: H/O: surgery S/P thyroid surgery [...] Castillo Work Phone: Comment on above: See 11.9.23 SALLY with M-Gurwinder, kappa ligh t chain+ Plan of Treatment Date Care Activity Detail Author Start: 07-04-2025 Immunoglobulin measurement [facility] Start: 07-04-2025 Serum immunofixation [facility] Start: 07-04-2025 [facility] Start: 12-10-2024 Urine culture Urine Culture [facility] Start: 12-10-2024 [facility] Start: 12-08-2024 Bacteria identified in Urine by Culture Urine Culture [facility] Start: 12-08-2024 [facility] Start: 11-08-2024 Njx anes&/strd w/img tfrml edrl lmbr/sac ea lv NJX AA&/STRD TFRM EPI L/S EA [facility] Start: 11-08-2024 Injection of facet joint [facility] Start: 11-08-2024 Injection of spinal epidural space [facility] Start: 11-08-2024 X-ray of lumbar spin e, two or three views Lumbar Spine 2 or 3 Views [facility] Start: 11-08-2024 Patient discharge [facility] Start: 07-26-2024 Anes dx/ther nerve block/injection prone pos ANESTH N BLOCK/INJ PRONE [facility] Start: 07-26-2024 Njx dx/ther sbst int rlmnr lmbr/sac w/img gdn NJX INTERLAMINAR LMBR/SAC [facility] Start: 07-26-2024 Patient discharge [facility] Start: 05-19-2024 Egd transoral biopsy single/multiple EGD BIOPSY SINGLE/MULTIPLE [facility] Start: 05-19-2024 Patient discharge [facility] Start: 04-09-2024 Patient referral [facility] Work Phone: Start: 04-24-2023 Colonoscopy flx dx w/collj spec when pfrmd DIAGNOSTIC COLONOSCOPY [facility] Start: 04-24-2023 Egd transoral biopsy single/multiple EGD BIOPSY SINGLE/MULTIPLE [facility] Start: 04-24-2023 Patient discharge [facility] Start: 04-22-2023 [facility] Start: 04-22-2023 End: 04-22-2023 [facility] Start: 12-13-2022 Patient referral [facility] Work Phone: Start: 11-03-2022 Blood chemistry [facility] Start: 11-02-2022 Blood chemistry [facility] Start: 11-01-2022 Patient discharge [facility] Start: 10-31-2022 Catheterization of vein [facility] Start: 10-29-2022 End: 10-30-2022 [facility] Start: 07-11-2023 Following clinical pathway protocol [facility] Start: 10-29-2022 Ambulation without limitation [facility] Start: 10-29-2022 Assessment of risk o f venous thromboembolism [facility] Start: 10-29-2022 Insertion of cathete r into peripheral vein [facility] Start: 10-29-2022 Measuring intake and output [facility] Start: 10-29-2022 Providing care accor ding to standard [facility] Start: 10-29-2022 Referral to gastroenterology service [facility] Start: 10-29-2022 Verification routine [facility] Start: 10-29-2022 Admission procedure [facility] Start: 10-29-2022 [facility] Start: 03-22-2022 Egd transoral biopsy single/multiple EGD BIOPSY SINGLE/MULTIPLE [facility] Start: 03-22-2022 Patient discharge [facility] Start: 12-20-2021 Influenza vaccination INFLUENZA (#1) [facility] Start: 08-10-2021 Patient referral [facility] Work Phone: Start: 05-23-2021 COVID-19 VACCINE (3 - Booster for Pfizer series) COVID-19 VACCINE (3 - Booster for Pfizer series) [facility] Start: 04-21-2021 DEPRESSION ASSESSMENT DEPRESSION ASS ESSMENT [facility] Start: 06-30-2020 End: 06-30-2020 Office Visit 06/30/2020 Office Visit Weight Management Xiao Danielle MD [address] [id number] [facility] Start: 12-31-2019 Creatinine monitoring Creatinine mon [facility] Start: 12-31-2019 Potassium monitoring Potassium monit [facility] Start: 12-30-2019 Creatinine monitoring Creatinine mon [facility] Start: 12-30-2019 Potassium monitoring Potassium monit [facility] [place] Start: 12-23-2019 Creatinine monitoring Creatinine mon [facility] Start: 12-23-2019 Potassium monitoring Potassium monit [facility] [place] Start: 12-21-2019 Influenza vaccination Flu vaccine (# 1) [place], [place] Start: 12-04-2019 A1C test (Diabetic o r Prediabetic) A1C test (Diabetic or Prediabetic) [place] Start: 12-04-2019 Creatinine monitoring Creatinine mon [place] Start: 12-04-2019 HbA1c (Bld) [Mass fraction] A1C test (Diabetic or Prediabetic) [place] Start: 12-04-2019 Potassium monitoring Potassium monit [place]ing [place] Start: 06-29-2019 End: 06-29-2019 Patient encounter procedure 06/29/2019 Office Visit Bariatrics Leyda Almeida, DICER MACHINE OPERATOR - NET SQL DEVELOPER [address] [place] [id number] Bariatric [facility] Start: 05-04-2019 Lipid panel Lipid screen [place], [place] Start: 05-04-2019 Lipid screen Lipid screen [place] Start: 01-07-2019 End: 01-07-2019 Office Visit 01/07/2019 Office Visit Bariatrics John Romero MD [address], [address] [place] [address] [phone] Bariatric [facility] Start: 01-04-2019 End: 01-04-2019 Office Visit 01/04/2019 Office Visit Bariatrics Leyda Almeida, DICER MACHINE OPERATOR - NET SQL DEVELOPER [address] [place] [phone] Bariatric [facility] Start: 12-28-2018 End: 12-28-2018 Appointment 12/28/2018 Appointment General Surgery John Romero MD [address], [address] [place] [address] [phone] [facility] General Surgery Start: 12-22-2018 End: 12-22-2018 Appointment 12/22/2018 Appointment Pre-Admission Testing John Romero MD [address], [address] [place] [address] [phone] [facility] Pre-Admit Testing Start: 12-20-2018 Influenza vaccination Flu vaccine (# 1) [facility], [place] Start: 12-07-2018 End: 12-07-2018 Office Visit 12/07/2018 Office Visit Weight Management Xiao Danielle MD [address] [place] [address] [phone] [facility] Start: 12-04-2018 End: 12-04-2018 Office Visit 12/04/2018 Office Visit Bariatrics [facility] [place] Start: 2017 Mammography MAMMOGRAM [facility] Start: 08-30-2016 End: 08-30-2016 Appointment Appointment [facility] Work Phone: Start: 08-30-2016 End: 08-31-2016 Follow Up Appt Other Follow Up Appt Other [facility] Work Phone: Start: 08-21-2016 End: 08-21-2016 Appointment Appointment [facility] Work Phone: Start: 08-21-2016 End: 08-28-2016 Follow up Appt 1 week Follow up Appt 1 week [facility] Work Phone: Start: 07-03-2016 End: 08-15-2016 Follow Up Appt Other Follow Up Appt Other [facility] Work Phone: Start: 07-03-2016 End: 07-04-2016 Mri upper extremity w/dye MRI Upper Extremity with Contrast [facility] Work Phone: Start: 07-03-2016 End: 07-04-2016 X-ray exam of wrist X-Ray, Wrist [facility] Work Phone: Start: 12-23-2014 End: 07-04-2016 Follow Up Appt Other Follow Up Appt Other [facility] Work Phone: Start: 12-12-2014 End: 07-04-2016 Bacterica wound culture *CUW - Culture, Wound (Aerobic) [facility] Work Phone: Start: 12-12-2014 End: 07-04-2016 Follow up Appt 1 week Follow up Appt 1 week [facility] Work Phone: Start: 12-12-2014 End: 07-04-2016 Mri upper extremity w/dye MRI Upper Extremity with Contrast [facility] Work Phone: Start: 2014 End: 07-04-2016 Follow Up Appt Other Follow Up Appt Other [facility] Work Phone: Start: 2014 End: 07-04-2016 Primary Care Physician Primary Care Physician [facility] Work Phone: Start: 08-29-2014 End: 11-15-2014 Follow Up Appt Other Follow Up Appt Other [facility] Work Phone: Start: 08-12-2013 HPV TESTING HPV TESTING [facility] Start: 08-12-2013 PAP TESTING PAP TESTING [facility] Start: 1996 DTaP/Tdap/Td vaccine (1 - Tdap) DTaP/Tdap/Td vaccine (1 - Tdap) [place], [place] Start: 1996 Hepatitis B Vaccine (1 of 3 - Risk 3-dose series) Hepatitis B Vaccine (1 of 3 - Risk 3-dose series) [place] Start: 1996 Urine microalbumin profile DTAP,TDAP,TD (1 - Tdap) [facility] Start: 11-24-1995 Diabetic microalbumi gavin test Diabetic microalbuminuria test [place] Start: 11-24-1995 HEPATITIS C SCREENING HEPATITIS C SC REENING [facility] Start: 11-24-1995 HIV SCREENING HIV SCREENING [facility] Start: 1992 HIV screen HIV screen [place], [place] Start: 1992 HIV screening HIV screen [place], [place] Start: 1989 Adult depression screening assessment DEPRESSION SCREENING [facility] Start: 1988 DTaP/Tdap/Td vaccine (1 - Tdap) DTaP/Tdap/Td vaccine (1 - Tdap) [facility] Work Phone: Start: 11-24-1987 [object Object] Diabetic foot exam [place] Start: 11-24-1987 Diabetic foot examination Diabetic f [place]ot exam [place] Start: 11-24-1987 Diabetic retinal exam Diabetic retin [place] exam [place] Start: 11-24-1983 Pneumococcal 0-64 ye ars Vaccine (1 of 1 - PPSV23) Pneumococcal 0-64 years Vaccine (1 of 1 - PPSV23) [place] Start: 05-26-1978 COVID-19 VACCINE (#1) COVID-19 VACCI NE (#1) [facility] Start: 1977 HEPATITIS B (1 of 3 - 3-dose series) HEPATITIS B (1 of 3 - 3-dose series) [facility] [id number]. tumor marker [Units/volume] in Serum or Plasma [facility] Angiotensin converti ng enzyme [Enzymatic activity/volume] in Serum or Plasma [facility] Basic Metabolic Pane l w/ Reflex to MG Basic Metabolic Panel w/ Reflex to MG Lab Routine Daily until discontinued starting 12/29/2018, 2 completed [place] Comment on above: Daily until disconti nued starting 12/29/2018, 2 completed CBC auto differential CBC auto d ifferential Lab Routine Daily until discontinued starting 12/29/2018, 1 completed [place] Comment on above: Daily until disconti nued starting 12/29/2018, 1 completed CBC W Auto Different ial panel - Blood [facility] CBC W Auto Different ial panel - Blood [facility] CBC W Auto Different ial panel - Blood [facility] CBC W Auto Different ial panel - Blood [facility] Ceruloplasmin [Mass/volume] in Serum or Plasma [facility] Colonoscopy [facility] Comprehensive metabo lic 1999 panel - Serum or Plasma [facility] Comprehensive metabo lic 1999 panel - Serum or Plasma [facility] Copper [Moles/volume ] in Serum or Plasma [facility] CPAP CPAP Respiratory Care Routine Every 4hr until discontinued starting 12/28/2018 [place] Comment on above: Every 4hr until disc ontinued starting 12/28/2018 Estrogen [Mass/volum e] in Serum or Plasma [facility] Ferritin [Mass/volum e] in Serum or Plasma [facility] Haptoglobin [Mass/vo lume] in Serum or Plasma [facility] Hepatitis A virus Ig M Ab [Presence] in Serum [facility] Hepatitis B core ant ibody measurement, IgM type [facility] Hepatitis B surface antigen measurement [facility] Hepatitis C antibody measurement [facility] HHN Treatment HHN Treatment Re spiratory Care Routine Every 4hr while awake until discontinued starting 12/28/2018 [facility] [place] Comment on above: Every 4hr while awak e until discontinued starting 12/28/2018 Immunoglobulin measurement [facility] Immunoglobulin measurement [facility] Incentive spirometry Incentive s pirometry Respiratory Care Routine Every 1hr while awake until discontinued starting 12/29/2018 [facility] [place] Comment on above: Every 1hr while awak e until discontinued starting 12/29/2018 Initiate Oxygen Ther apy Protocol Initiate Oxygen Therapy Protocol Respiratory Care Routine Daily until discontinued starting 12/29/2018 [place] Comment on above: Daily until disconti nued starting 12/29/2018 Iron [Mass/mass] in Unspecified specimen [facility] Iron and Iron bindin g capacity panel - Serum or Plasma [facility] Lactate dehydrogenas e measurement [facility] Lactate dehydrogenas e measurement [facility] Lactate dehydrogenas e measurement [facility] Liver stiffness by US.transient elastography [facility] Neutrophil cytoplasm ic Ab.classic [Units/volume] in Serum [facility] P-ANCA measurement [facility] Patient Education [facility] Work Phone: Patient referral [facility] Work Phone: POCT GLUCOSE [facility] Comment on above: Every 6hr until disc ontinued starting 12/28/2018 As Needed until disc ontinued starting 12/28/2018 Serum [facility]ofixation [facility] Center Serum immunofixation [facility] Smooth muscle Ab [Presence] in Serum [facility] Transferrin [Mass/vo lume] in Serum or Plasma [facility] Immunization Date Immunization Notes Care Provider Doreen wilson 02-05-2024 influenza, seasonal, injectable, preservative free Giancarlo LECHUGA Work Phone: [facility] 01-16-2023 influenza, injectable, quadrivalent, preservative free Dr. Hermelinda Castillo Work Phone: [facility] 02-11-2022 influenza, injectable, quadrivalent, preservative free Dr. Hermelinda Castillo Work Phone: [facility] 02-11-2022 influenza, seasonal, injectable Dr. Hermelinda Castillo Work Phone: [facility] 01-24-2021 influenza, injectable, quadrivalent, preservative free Dr. Hermelinda Castillo Work Phone: [facility] 01-24-2021 influenza, seasonal, injectable Dr. Hermelinda Castillo Work Phone: [facility] 01-26-2020 influenza, injectable, quadrivalent, preservative free Dr. Hermelinda Castillo Work Phone: [facility] 01-26-2020 influenza, seasonal, injectable Dr. Hermelinda Castillo Work Phone: [facility] 11-29-2019 hepatitis B vaccine, adult dosage Dr. Hermelinda Castillo Work Phone: [facility] 06-30-2019 hepatitis B vaccine, adult dosage Dr. Hermelinda Castillo Work Phone: [facility] 06-30-2019 measles, mumps and rubella virus vaccine Dr. Hermelinda Castillo Work Phone: [facility] 05-31-2019 hepatitis B vaccine, adult dosage Dr. Hermelinda Castillo Work Phone: [facility] 05-31-2019 measles, mumps and rubella virus vaccine Dr. Hermelinda Castillo Work Phone: [facility] 05-24-2019 influenza, injectable, quadrivalent, preservative free Dr. Hermelinda Castillo Work Phone: [facility] 05-24-2019 influenza, seasonal, injectable Dr. Hermelinda Castillo Work Phone: [facility] 05-24-2019 tetanus toxoid, reduced diphtheria toxoid, and acellular pertussis vaccine, adsorbed Dr. Hermelinda Castillo Work Phone: [facility] NEGATED: Highlighted row has not occurred!12-29-2018 influenza, injectable, quadrivalent, preservative free Formerly [facility] [place], [place] Payers Date Payer Category Payer Unknown [id number] 2023 Self-pay [id number] 2023 Unknown [id number] 2021 Unknown [id number] 2018 Unknown LIZETKATI[employer] [facility] MEDICAID xxxxxxxxxxx 2018-Present [phone] CLAIMS DEPARTMENT [address] [place] [address] xxxxxxxxxxx [id number] 2017 Unknown 2014 Medicaid [id number]. [id number]. [id number] 2013 Unknown [id number] 2013 Unknown [id number] 1977 Unknown [id number] 2..840.1.767737.3.579.2.717 1977 Unknown [id number] 2.840.1.846852.3.579.2.356 1977 Unknown [id number] 2..840.1.202268.3.579.2.356 1977 Unknown [id number] 2.16.840.1.443191.3.579.2.356 1977 Unknown [id number] 2..840.1.300647.3.579.2.651 1977 Unknown [id number] 2.16.840.1.902579.3.579.2.651 Unknown [id number] 2..840.1.208626.3.579.2.462 Unknown [id number] 2.840.1.489306.3.579.2.462 Unknown [id number] 2.840.1.292648.3.579.2.462 Unknown [id number] 2.840.1.822275.3.579.2.462 Unknown [id number] 2.840.1.634929.3.579.2.462 Unknown [id number] 2.840.1.380209.3.579.2.462 Unknown [id number] 2.840.1.871001.3.579.2.462 Unknown [id number] 2.840.1.089292.3.579.2.462 Unknown [id number] 2.840.1.812289.3.579.2.462 Unknown [id number] 2.840.1.611292.3.579.2.462 Unknown [id number] 2.840.1.648285.3.579.2.462 Unknown [id number] 2.840.1.021950.3.579.2.462 Unknown [id number] 2.840.1.813487.3.579.2.462 Unknown [id number] 2.840.1.862872.3.579.2.462 Unknown [id number] 2.840.1.249997.3.579.2.462 Unknown [id number] 2.840.1.658150.3.579.2.462 Unknown [id number] 2.16.840.1.892114.3.579.2.462 Unknown [id number] 2.16.840.1.094779.3.579.2.462 Unknown [id number] 2.16.840.1.393546.3.579.2.462 Unknown [id number] 2.16.840.1.020026.3.579.2.462 Unknown [id number] 2.16.840.1.267472.3.579.2.462 Unknown [id number] 2.16.840.1.419214.3.579.2.462 Unknown [id number] 2.16.840.1.314229.3.579.2.462 Unknown [id number] 2.16.840.1.622507.3.579.2.462 Unknown [id number] 2.16.840.1.241014.3.579.2.462 Unknown [id number] 2.16.840.1.305533.3.579.2.462 Unknown [id number] 2.16.840.1.439000.3.579.2.462 Unknown [id number] 2.16.840.1.398152.3.579.2.462 Unknown [id number] 2.16.840.1.338539.3.579.2.462 Social History Date Type Detail Facility Start: 12-03-2018 End: 12-10-2024 Tobacco smoking status CTIS Never smoker [facility] Start: 12-03-2018 End: 12-22-2018 Alcohol intake No [facility] Start: 1975 Sex Assigned At Not on file [place] Start: 01-28-2019 End: 03-13-2022 Tobacco use and exposure Never used [place], [place] Start: 01-28-2019 End: 03-13-2022 Alcohol intake Current non-drinker of alcohol (finding) [facility] Work Phone: Start: 11-20-2021 End: 04-22-2023 Tobacco smoking status NHIS Unknown if ever smoked [facility] Start: 1975 Sex Assigned At Female [facility] Start: 03-03-2022 End: 03-13-2022 Exposure to SARS-CoV-2 (event) Not sure [facility] Start: 07-26-2024 End: 08-17-2024 Sex Female (finding) [facility] Sexual Orientation Heterosexual (finding) [facility] NEGATED: Highlighted row [facility] NEGATED: Highlighted row Not [facility] Medical Equipment Procedure Code Equipment Code Equipment [...] with monitored anesthesia care Non-organic haemostatic agent ([id number] FDA Start: 10-31-2022 EGD, with monitored anesthesia [...] Result Facility 11-01-2022 Functional status [employer] [place] Work Phone: 11-01-2022 Functional status [employer] [place] Work Phone: Mental Status Date Assessment Result Facility 11-08-2024 Cognitive function Voice/Name [facility] Work Phone: 07-26-2024 Cognitive function Voice/Name [facility] Work Phone: 05-19-2024 Cognitive function Level Of Consciousness Drowsy [facility] Work Phone: 05-19-2024 Cognitive function Voice/Name [facility] Work Phone: 04-24-2023 Cognitive function Level Of Consciousness Sedated [facility] Work Phone: 04-24-2023 Cognitive function Voice/Name [facility] Work Phone: 04-22-2023 Cognitive function Level Of Cons ciousness Awake;Alert [facility] Work Phone: 11-01-2022 Cognitive function Voice/Name [facility] Work Phone: 03-22-2022 Cognitive function Voice/Name [facility] Work Phone: Clinical Notes 02-08-2022 to 01-10-2025 Note Date & Type Note Facility 01-10-2025 Progress note [facility] 01-07-2025 Radiology Diagnostic study note [facility] Imaging Services [address] [place], [place] [id number] Limited Chest CT Cardiac Only MR#: [id number] Acct: [id number] Name: CATHERINE BUI Rep #: [id number] : 1975 F 49 From: Deonte Alicea MD PCP: ALEXANDREA Armando Status: REG CLI Study:Limited Chest CT Cardiac Only Date of E xam: 01/06/25 Exam# [id number] Ordering Dr: Adriana Irene PROCEDURE: LIMITED CHEST CT CARDIAC ONLY 01/06/2025 REASON FOR EXAM: FAM HX ISCHEMIC HEART DISEASE TECHNIQUE: Procedure Code: [id number] Modality: CT Procedure: LIMITED CHEST CT CARDIAC ONLY CONTRAST: None One or more dose reduction techniques were used (e.g., Automated exposure control, adjustment of the mA and/or kV according to patient size, use of iterative reconstruction technique). RADIATION DOSE SUMMARY: CTDlvol: 12.19 mGy DLP: 170.66 mGycm COMPARISON: None FINDINGS: No coronary artery calcification. The heart is nonenlarged. Pericardium is unremarkable. The lungs are clear. 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 CT/Limited Chest CT Cardiac Only IMPRESSION: No coronary artery calcification is seen. Reading Location: [facility] CC: ALEXANDREA Irene; ALEXANDREA Posadas ~ Business Intelligence Etl Developer: Signed [facility] 01-06-2025 Radiology Diagnostic study note [facility] Imaging Services [address] [place] [address] 01/06/25 1534 MR#: [id number] Acct: [id number] Name: CATHERINE BUI Rep #:[id number] : 1975 49 From: Maximiliano Murphy MD PCP: ALEXANDREA Armando Status:REG CLI Y Location: CT Calcium Scoring Date of Study:: 01/06/25 Indications Indications: Family history Coronary Calcium Scoring: High-resolution Computed Tomographic imaging of the chest was performed on [01/06/2025], with particular attention paid to the coronary arteries. Images from the examination were analyzed for the presence and extent of coronary artery calcification , using coronary calcium quantification software. The patient tolerated the procedure well and there were no complications. The results of the coronary calcification analysis are provided below. Findings Coronary Artery Left Main (LM): 0 Left Anterior Descending (LAD): 0 Left Circumflex (LCX): 0 Right Coronary Artery (RCA): 0 Total Agatston Score: 0 Percentile Rankin Calcium Scoring Interpretation: Different methods to categorize the overall amount of coronary plaque. Overall amount CAC SIS Visual of coronary plaque P1 Mild -100 <2 1-2 vessels with mild amount of plaque P2 Moderate 101-300 3-4 1-2 vessels with moderate amount, 3 vessels with mild amount of plaque P3 Severe 301-999 5-7 3 vessels with moderate amount, 1 vessel with severe amount of plaque P4 Extensive >1000 >8 2-3 vessels with severe amount of plaque Conclusion: No atherosclerotic plaque noted. 01/06/25 1535 Date _ Maximiliano Saeedignalejandrina Signature (if applicable): Date CC: ALEXANDREA Irene; APRILC Giancarlo Posadas; Dr. Maximiliano Murphy MD ~ Signed [facility] Work Phone: 12-10-2024 Evaluation note Diagnosis Onset Date Resolution Annual physical exam acute 2024 7:47am Painful urination acute December 10, 2024 7:47am MGUS (monoclonal gammopathy of unknown significance) chronic January 10, 2025 1:18pm [facility] Work Phone: [phone] Radiology Diagnostic study note [facility] Imaging Services [address] [place] [address] Kidney and Bladder MR#: [id number] Acct: [id number] Name: CATHERINE BUI ANN Rep #: [id number] : 1975 F 49 From: Deonte Alicea MD PCP: ALEXANDREA Armando Status: REG CLI Study:Kidney and Bladder Date of Exam: 0 12/07/24 Exam# [id number] Ordering Dr: Adriana Irene PROCEDURE: KIDNEY AND BLADDER 12/07/2024 REASON FOR EXAM: HEMATURIA, UNSPECIFIED Two-week history of materia. TECHNIQUE: KIDNEY AND BLADDER FINDINGS: Kidneys: Normal renal sizes, parenchymal thicknesses, and echotextures. [place]: No evidence of hydronephrosis. Cysts or Masses: No cysts or large solid renal masses. Other: 6 mm x 8 mm x 5 mm nonobstructive calculus in the inferior pole of the right kidney. 5 mm x 8 mm x 6 mm non obstructive calculus in the inferior pole of the left kidney. RIGHT Kidney Size: 12.2 cm x 5.2 cm x 5.9 cm Volume: 194 mL Cortical Thickness (if discernible): 13 mm (>6mm is normal) LEFT Kidney Size: 13.5 cm x 5.6 cm x 6.8 cm Volume: 270 mL Cortical Thickness (if discernible): 17 mm (>6mm is normal) US/Kidney and Bladder IMPRESSION: Tiny nonobstructive bilateral intrarenal calculi. Reading Location: [id number] CC: ALEXANDREA Irene; ALEXANDREA Posadas ~ Business Intelligence Etl Developer: Signed [facility]07-21-2025 Consult note [facility] Medical Records Department [address] [place] [address] Anesthesia Postop Eval I 11/08/24 1017 MR#: [id number] Acct: [id number] Name: CATHERINE BUI Rep #:[id number] : 1975 48 From: Last KABA PCP: ALEXANDREA Armando Status:REG [facility] Y Race: C Location: [facility] Anesthesia: Postop Eval I Current Vital Signs Temperature: 36 F Pulse Rate: 67 Blood Pressure: 115/78 Respiratory Rate: 14 Pulse Ox: 97 Assessment Airway patent: Yes Spontaneous unlabored respirations: Yes nausea: No Vomiting: No Anesthesia Complication: No Fluid Hydration Crystalloid volume administer (ml): 300 Total IV fluid infused: 300 Progress Note Anesthesia document: Postop Eval 1 completed: Yes 11/08/24 1017 STEWARDESS SUPERVISOR> Date _ Last [place] STEWARDESS SUPERVISOR Cosigner Signature: Date CC: ~ Signed [facility]07-21-2025 Consult note [facility] Medical Records Department [address] [place] [address] Pre-Anesthesia Evaluation 11/08/24 0946 MR#: [id number] Acct: [id number] Name: CATHERINE BUI Rep #:[id number] : 1975 48 From: Veronica christopher CRNA PCP: ALEXANDREA Armando Status:REG [facility] Y Race: C Location: [facility] ASA Classification* ASA Classification ASA Classification: 2 [...] risk assessments. Anesthesia Type Anesthesia Type: MAC History Source History Obtained from:: Patient and Chart Anesthesia Focused Assessment* Temperature: 97.8 F Pulse Rate: 67 Blood Pressure: 116/83 Respiratory Rate: 16 Pulse Ox: 99 Oxygen Delivery Method: Room Air Airway Assessment Mouth opens: >3 cm Mallampati Score: I Teeth Condition: Intact Neck Range of motion (ROM): Full ROM Labs Anesthesia Preop lab: CBC WBC 9.4 K/mm3 (4.4-11.0) 09/27/24 08:25 09/27/24 RBC 4.67 M/mm3 (4.2-5.4) 09/27/24 08:25 09/27/24 Hgb 14.4 g/dL (12.0-15.0) 09/27/24 08:25 09/27/24 Hct 41.4 % (37-47) 09/27/24 08:25 09/27/24 Plt Count 290 K/mm3 (150-450) 09/27/24 08:25 09/27/24 CHEMISTRY Potassium 3.9 mmol/L (3.3-5.1) 09/15/24 06:14 09/15/24 Sodium 140 mmol/L (133-145) 09/15/24 06:14 09/15/24 Magnesium 2.1 mg/dL (1.6-2.6) 03/07/23 12:15 03/07/23 Phosphorus 3.6 mg/dL (2.5-4.9) 12/13/22 06:06 12/13/22 BUN 7 mg/dL (4-19) 09/15/24 06:14 09/15/24 Creatinine 0.51 mg/dL (0.70-1.20) L 09/15/24 06:14 Glucose 85 mg/dL (70-99) 09/15/24 06:14 09/15/24 POC Glucose 84 mg/dL (74-106) 07/26/24 09:19 07/26/24 TSH 2.070 uIU/mL (0.300-4.200) 09/15/24 06:14 08/20 12/13 COAG PT 13.3 SECONDS (11.7-14.9) 07/07/23 14:19 Pre-Assessment Diagnosis/Proposed Procedure Planned Operative Procedure(s): RIGHT LUMBAR TRANSFORMINAL EPIDURAL L4 L5 S1 Anesthesia History 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 When Was Last Pacemaker Check QUESTION #4 FULL TEXT: You/Your Family Experience fever (hyperthermia) with Anesthesia Last Oral Intake Last Oral intake: Last Oral Intake NPO since 21:00 11/08/24 09:35 Meds taken in AM with sips of Yes 11/08/24 09:35 water? Meds patient instructed to constance navarrete buspar 11/08/24 09:35 take am of surgery protonix PONV PONV - gauge 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: PONV - gauge 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 Female Yes 10/29/24 13:14 HX of Motion Sickness No 10/29/24 13:14 HX of N/V After Surgery Yes 10/29/24 13:14 Non-Smoker Yes 10/29/24 13:14 Duration of Surgery greater No 10/29/24 13:14 than 60 minutes Number of Risk Factors 3 10/29/24 13:14 PONV Score Moderate Risk 10/29/24 13:14 Height & Weight Height & Weight: Anesthesia: Height & Weight Height 5 ft 4 in 11/08/24 09:35 Weight: 90.2 kg 11/08/24 09:35 Body Mass Index (BMI) 34.1 11/08/24 09:35 Respiratory Assessment Respiratory Assessment - gauge 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: Respiratory Tract Infection Hx - gauge 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 Hx Respiratory Tract Infection No 10/29/24 13:14 STOP Sleep Apnea STOP Sleep Apnea - gauge 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: STOP Sleep Apnea - gauge 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 Hx Hypertension Yes: CONTROLLED WITH MED 10/29/24 13:14 Hx Sleep Apnea Yes 10/29/24 13:14 CPAP Yes 10/29/24 13:14 BIPAP No 10/29/24 13:14 Do you snore loudly (louder than talking or can be heard Do you often feel tired/ fatigued/ sleepy during daytime? Has anyone observed you stop breathing during sleep? STOP Results Positive 10/29/24 13:14 QUESTION #5 FULL TEXT : Do you snore loudly (louder than talking or can be heard through closeddoors)? 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 Specify any problems Hx of Preganancy in last 3 No 10/29/24 13:14 Months Nurse Filling Out Transfusion DSCHRIBER 10/29/24 13:14 & Questions: Date: 10/29/24 10/29/24 13:14 Time: 13:16 10/29/24 13:14 Patient unable to answer at this time (ie. confused, unrespo /Reproduction History /Reproductive History - gauge 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: /Reproductive Hx- gauge 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 Hx Now No 10/29/24 13:14 Gestational Age (in weeks): EDC: Hx Hx Para Hx Section SAB No 10/29/24 13:14 Active Medications Active Medications: Current Medications Generic Name Dose Route Start Last Admin Trade Name Freq PRN Reason Stop Dose Admin Lactated Ringer's 1,000 mls @ 15 mls/hr 11/08/24 09:30 11/08/24 09:39 IV 15 mls/hr .Q48H GRISELDA Administration PFSH Medical History (Updated 10/29/24 @ 13:19 by Gina Murry) Anxiety Back pain Blood disorder Syncope MGUS (monoclonal gammopathy of unknown significance) GI bleed Wears glasses Thyroid disease Low iron Migraine headache History of hiatal hernia History of IBS Non-smoker Vocal cord dysfunction Breast cancer screening Hemangioma Chronic left hip pain Right thyroid nodule [...] 04/18/23 Unknown History buspirone 5 mg tablet 10 mg PO TID 09/12/23 History ursodiol 250 mg tablet 250 mg PO BID #60 tabs 09/1105/18/24 Rx semaglutide 1 mg/dose (4 mg/3 mL) 1 mg subcut MOFR 02/1110/28/24 History subcutaneous pen injector pantoprazole 40 mg tablet,delayed 40 mg PO BID #120 TA BLETS 03/17/24 11/08/24 Rx release sucralfate 1 gram tablet 1 g PO TIDAC 30 days #90 tab s 03/17/24 05/18/24 Rx amlodipine 5 mg tablet 10 mg PO QHS 07/06/24 Unknow n History duloxetine 20 mg capsule,delayed 20 mg PO BID Fibromya lgia 09/09/24 11/08/24 History release (Cymbalta) vitamin E (dl, acetate) 450 mg 450 mg PO QDAY 09/09/24 Unknown History (1,000 unit) capsule cariprazine 1.5 mg capsule 1.5 mg PO DAILY 10/29/24 History (Vraylar) lorazepam 0.5 mg tablet (Ativan) 0.5 mg PO Q12H PRN sl eep 10/29/24 Unknown History Allergy/AdvReac Type Severity Reaction Status Date / Time NSAIDS (Non-Steroidal Allergy unknown Verified 11/08/24 09:32 Anti-Inflamma Penicillins Allergy Rash Verified 11/08/24 09:32 sulfamethoxazole (From Allergy rash Verified 11/08/24 09:32 Bactrim) trimethoprim (From Bactrim) Allergy rash Verified 11/08/24 09:32 Family History Aunt Cancer uterine cancer Brother Asthma Sister Autoimmune disorder Other Breast cancer Diabetes Heart disease Hypertension Myocardial infarction Parkinson disease Surgical History (Updated 10/29/24 @ 13:19 by Gina Murry) Hx of surgical procedure Hx of colonoscopy History of esophagogastroduodenoscopy (EGD) History of surgical removal of ganglion cyst History of hysterectomy Gastric bypass status for obesity H/O section S/P thyroid surgery Hx of cholecystectomy Social History Smoking Status: Never smoker Review of Systems (Anesthesia) ROS Narrative System reviewed and no additional complaints, except as documented. 11/08/24 0949 [email or web address] STEWARDESS SUPERVISOR> Date _ Veronica Wilhelm STEWARDESS SUPERVISOR Cosigner Signature: Date CC: ~ Signed [facility]07-02-2025 Radiology Diagnostic study note [facility] Imaging Services [address] [place], [place] [address] Breast Limited Unilateral MR#: [id number] Acct: [id number] Name: CATHERINE BUI ANN Rep #: [id number] : 1975 F 48 From: Sally Ramirez MD PCP: ALEXANDREA Armando Status: REG CLI Study:Breast Limited Unilateral Date of Exam: 10/20/24 Exam# [id number] Ordering Dr: Adriana Irene PROCEDURE: DIAG MAMM W/CAD, UNILAT; RT BRST UNILAT ILYA ADD-ON; BREAST LIMITED UNILATERAL REASON FOR EXAM: 48-year-old female presents with palpable concern in the right breast and right axilla. Family history of breast cancer in a paternal grandmother. TECHNIQUE: DIAG MAMM W/CAD, UNILAT; RT BRST UNILAT ILYA ADD-ON; BREAST LIMITED UNILATERAL COMPARISON: 03/25/2024, 05/23/2022, 02/12/2021 FINDINGS: MAMMOGRAM: The breasts are heterogeneously dense which may obscure small masses. The mammogram demonstrates that the patient has dense breasts. Supplemental screening with whole breast ultrasound or MRI may be considered for further evaluation. Right breast: There are triangle skin markers indicating the area of palpable concern in the upper-outer right breast, underlying the skin marker is a small mass. This mass has been stable on multiple priors dating back to 2020 and likelyrepresents an intramammary lymph node. Also, there is a triangle skin marker indicating the area of palpable concern in the right axilla, underlying the skin marker are no suspicious mammographic findings. There are some normal- appearing right axillarylymph nodes. Otherwise, there are no suspicious findings in the right breast. ULTRASOUND: Ultrasound was targeted to the right breast upper-outer quadrant. Ultrasound performed of the area of patient's palpable concern in the right breast at 10 o'clock 10cm from the nipple demonstrates a normal-appearing intramammary lymph node with normal cortical thickness measuring 2.0 x 1.2 x 0.6 cm. Also, there are 3 normal-appearing right axillary lymph nodes. Otherwise, there are no suspicious sonographic findings in the upper-outer quadrant of the right breast and in the right axilla. US/Breast Limited Unilateral IMPRESSION: 1. The patient's area of palpable concern in the right breast corresponds to a stable intramammary lymph node, which has been stable on multiple priors dating back to 2020. 2. The patient's area of palpable concern in the right axilla corresponds to normal right axillary lymph nodes. 3. There is no evidence of malignancy in the right breast. OVERALL FINAL ASSESSMENT BI-RADS 2: BENIGN RECOMMEND ANNUAL MAMMOGRAPHIC SCREENING. RECOMMENDATION: Routine annual follow-up in 1 Year The patient will be next due for a mammogram in March 2025. A letter with findings and recommendations will be mailed to the patient. Reading Location: [id number] CC: ALEXANDREA Posadas ~ Business Intelligence Etl Developer: Signed [facility]06-09-2025 Radiology Diagnostic study note [facility] Imaging Services [address] [place] [address] ABD Limited w/ Elastography MR#: [id number] Acct: [id number] Name: CATHERINE BUI ANN Rep #: [id number] : 1975 F 48 From: Deonte Alicea MD PCP: ALEXANDREA Armando Status: REG CLI Study:ABD Limited w/ Elastography Date of Exa m: 09/27/24 Exam# [id number] Ordering Dr: Conchita Burleson PROCEDURE: ABD LIMITED W/ ELASTOGRAPHY REASON FOR EXAM: FATTY LIVER COMPARISON: Prior study dated July 18, 2023. TECHNIQUE: Right upper quadrant abdominal ultrasound. Jayda ElastQ Imaging shear wave elastography for non-invasive assessment of liver tissue stiffness. Jayda EPIQ Elite. FINDINGS: LIVER: Size: Unremarkable Length: 16.8 cm Echotexture: Diffusely echogenic suggesting fatty infiltration Contour: Normal Lesions: None identified Elastography: EQI Med: 8.3 kPa EQI Med Nimesh: 1.64 m/s IQR/Med: 26.5 %* GALLBLADDER: Surgically absent. COMMON BILE DUCT: Dilated measuring up to 9 mm. . PANCREAS: Visualized portions are unremarkable. The distal body and tail are obscured by bowel gas. Visualized portions of the right kidney are unremarkable. 1.3 cm x 1.6 cm 1.2 cm cyst. No right upper quadrant ascites. US/ABD Limited w/ Elastography IMPRESSION: Zjdv-an-kxjaieqd degree of hepatic fibrosis. Fatty infiltration of the liver. Status post cholecystectomy. Reference Values: SRU <1.37 m/s (5.7kPa): No to mild fibrosis 1.37 m/s - 2.2 m/s: Moderate to severe fibrosis >2.2 m/s (15kPa): Significant fibrosis / cirrhosis METAVIR Score F2 or higher: 1.34 m/s (5.7kPa) F3 or higher: 1.55 m/s (7.3kPa) F4: 1.80 m/s (10kPa) * If the IQR/Med is >30%, the variance in the measurements is a large and the accuracy of the measurement may be in question. Reading Location: [place] [address] CC: ALEXANDREA Posadas; CRISTY Julio ~ Business Intelligence Etl Developer: Signed [facility]05-22-2025 Evaluation note* Diagnosis Onset Date Resolution Status Admit Date Constipation acute September 09 1:47pm GERD (gastroesophageal reflu x disease) acute September 09, 2024 1 :47pm GI bleed acute September 09, 2024 1:47pm Fatty liver chronic September 09 1:47pm [facility] Work Phone: 1(819) 501-434505-12-2025 Radiology Diagnostic study note [facility] Imaging Services [address] [address] Thyroid MR#: [id number] Acct: [id number] Name: CATHERINE BUI Rep #: [id number] : 1975 F 48 From: Deonte Alicea MD PCP: Giancarlo Posadas NP-C Status: REG CLI Study:Thyroid Date of Exam: 08/26/24 Exam# [id number] Ordering Dr: Brittney Suresh MD PROCEDURE: THYROID 08/26/2024 REASON FOR EXAM: FOLLOW UP Thyroid nodules. Prior resection of the left thyroid. TECHNIQUE: High-frequency thyroid ultrasound, including grayscale and color-flow images. REFERENCE LINKS: TI-RADS Chart: [email or web address]-[email or web address]/ti-rads TI-RADS Calculator Tool with Reference Images: [email or web address]/radiology-calculators/body-imaging/tirads-calculator/ COMPARISON: Prior study dated March 07, 2023. [...] no more than 2 nodules. Reading Location: [id number] CC: ALEXANDREA Posadas; Dr. Jose Suresh MD ~ Business Intelligence Etl Developer: Signed [facility]04-24-2025 Radiology Diagnostic study note [facility] Imaging Services [address] [place], [place] [id number] Thoracic Spine 3 Views MR#: [id number] Acct: [id number] Name: CATHERINE BUI ANN Rep #: [id number] : 1975 F 48 From: Edwige Kay DO PCP: ALEXANDREA Armando Status: REG CLI Study:Thoracic Spine 3 Views Date of Exam: 08/12/24 Exam# [id number] Ordering Dr: Catherine Messer PROCEDURE: Thoracic spine [...] MIKE CC: ALEXANDREA Posadas; Catherine Messer ~ Business Intelligence Etl Developer: Signed [facility]04-24-2025 Radiology Diagnostic study note [facility] Imaging Services [address] [place] [address] Hips B/L min 2 views w/ Pelvis MR#: [id number] Acct: [id number] Name: CATHERINE BUI ANN Rep #: [id number] : 1975 F 48 From: Edwige Kay DO PCP: ALEXANDREA Armando Status: REG CLI Study:Hips B/L min 2 views w/ Pelvis Date of Exam: 08/12/24 Exam# [id number] Ordering Dr: Catherine Messer PROCEDURE: Pelvis and [...] the hip joints. Reading Location: [place] CC: ASSISTANT ASSOCIATE PROFESSOR-C Giancarlo Posadas; Catherine Messer ~ Business Intelligence Etl Developer: Signed [facility]04-07-2025 Consult note [facility] Medical Records Department [address] [place] [address] Anesthesia Postop Eval II 07/26/24 1034 MR#: [id number] Acct: [id number] Name: CATHERINE BUI ANN Rep #:[id number] : 1975 48 From: Rony Dixon MD PCP: APRIL ArmandoC Status:REG SDC Y Race: C Location: [place] [address] Anesthesia Postop Eval I Sum Postop Eval Completion status Anesthesia document: Postop Eval 1 completed: Yes Anesthesia Postop Eval I Summary Anesthesia Postop Eval I Summary: Anesthesia Postop Eval I: Assessment Summary Airway patent Yes 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 Spontaneous unlabored Yes 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 respirations Mental status nausea No 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 Vomiting No 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 Anesthesia Postop Eval I: Fluid Summary Crystalloid volume administer 10 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 (ml) Colloids volume administered ( ml) Blood Product volume administered (ml) Total IV fluid infused 10 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 Anesthesia Postop Eval I: Summary Notes Anesthesia Complication No 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 Anesthesia Complication Comment: Post-operative progress note Anesthesia: Postop Eval II Evaluation Mental status: Awake Pain Level: 0 nausea: No Vomiting: No 07/26/24 1034 > Date _ Rony Dixon MD Cosigner Signature: Date CC: ~ Signed [facility]04-07-2025 Radiology Diagnostic study note [facility] Imaging Services [address] [place] [id number] Fluor Guidance for Spine Inj MR#: [id number] Acct: [id number] Name: CATHERINE BUI ANN Rep #: [id number] : 1975 F 48 From: Jesse Saucedo DO PCP: ALEXANDREA Armando Status: [facility] Study:Fluor Guidance for Spine Inj Date of Ex am: 07/26/24 Exam# [id number] Ordering Dr: Primitivo Lockhart MD PROCEDURE: FLUOR GUIDANCE FOR SPINE INJ 07/26/2024 REASON FOR EXAM: BLOCK,CAUDAL TECHNIQUE: 2 fluoroscopic images were submitted. Fluoroscopy time was 6.7 seconds. Peak skin radiation dose was 2.6 mGy. COMPARISON: None FINDINGS: See impression RAD/Fluor Guidance for Spine Inj IMPRESSION: Fluoroscopic guidance provided during sacral injection. See operative report for further details. Reading Location: [facility] CC: ASSISTANT ASSOCIATE PROFESSOR-C Giancarlo Posadas; Dr. Primitivo Lockhart MD ~ Business Intelligence Etl Developer: Signed [facility]04-07-2025 Consult note [facility] Medical Records Department [address] [place] [address] Anesthesia Postop Eval I 07/26/24 1010 MR#: [id number] Acct: [id number] Name: CATHERINE BUI ANN Rep #:[id number] : 1975 48 From: Ruth Varghese PCP: ALEXANDREA Armando Status:REG SDC Y Race: C Location: [place] [address] Anesthesia: Postop Eval I Current Vital Signs Temperature: 98.4 F Pulse Rate: 66 Blood Pressure: 110/74 Respiratory Rate: 18 Pulse Ox: 97 Assessment Airway patent: Yes Spontaneous unlabored respirations: Yes nausea: No Vomiting: No Anesthesia Complication: No Fluid Hydration Crystalloid volume administer (ml): 10 Total IV fluid infused: 10 Progress Note Anesthesia document: Postop Eval 1 completed: Yes 07/26/24 1011 a> Date _ Ruth Saeedigner Signature: Date CC: ~ Signed [facility]04-07-2025 Procedure note [facility] Medical Records Department [address] [address] Operative Report 07/26/24 1002 MR#: [id number] Acct: [id number] Name: CATHERINE BUI ANN Rep #:[id number] : 1975 48 From: Primitivo Lockhart MD PCP: ALEXANDREA Armando Status:REG SDC Location: [place] [address] Operative Report (Standard) Operative Information Date of Procedure: 07/26/24 Pre-Operative Diagnosis: Lumbosacral radiculopathy, lumbosacral spinal stenosis,lumbosacral degenerative disc disease Post-Operative Diagnosis: Lumbosacral radiculopathy, lumbosacral spinal stenosis, lumbosacral degenerative disc disease Surgery/Procedure Performed: Diagnostic/therapeutic caudal epidural steroid injection under fluoroscopic guidance life scientist: No Type of Anesthesia: Local MAC RN [...] procedure were explained. The patient understood and agreedto proceed. Informed consent was obtained. IV inserted per routine protocol. The patient was taken to the operating room and placed in the proneposition with a pillow positioned underneath the abdomen. The lower back and tailbone area was prepped and draped in a sterile fashion using iodine x3. Under fluoroscopy guidance on a lateral view, the caudal space was identified. The skin and subcutaneous tissue was anesthetized with approximately3 mL of 1% lidocaine using a 25-gauge regular needle. Under direct visualization with fluoroscopy, u sing a 22-gauge 3-1/2-inch spinal needle, the needle [...] was completed without any apparent difficulty or anycomplications. The patient appeared to tolerate it well. ASSESSMENT AND PLAN: This is a 48 year-old female with lumbosacral radiculopathy, lumbosacral degenerative disc disease,lumbosacral spinal stenosis status post diagnostic/therapeutic caudal epidural steroid injection under fluoroscopic guidance, patient will continue her current medications, patient will follow-up in approximately 2 weeks for reevaluation. Surgical Findings: 0 Complications Complications: No Admit VTE Documentation VTE Present on Admission: No 07/26/24 1004 Cosigner Signature (if applicable): CC: ALEXANDREA Posadas; Dr. Primitivo Lockhart MD~ Signed [facility]04-07-2025 Consult note [facility] Medical Records Department [address] [place] [address] Pre-Anesthesia Evaluation 07/26/24 0851 MR#: [id number] Acct: [id number] Name: CATHERINE BUI Rep #:[id number] : 1975 48 From: Rony Dixon MD PCP: ALEXANDREA Armando Status:REG [facility] Y Race: C Location: [place] [address] ASA Classification* ASA Classification ASA Classification: 2 [...] lab: CBC WBC 9.0 K/mm3 (4.4-11.0) 06/22/24 13:06/22/24 RBC 4.82 M/mm3 (4.2-5.4) 06/22/24 13:20 06/22/24 [...] UNDER FLUOROSCOPY Anesthesia History 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 - 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 07/26/24 0852 > Date _ Rony Jimenez Signature: Date CC: ~ Signed [facility]03-18-2025 Evaluation note* Diagnosis Onset Date Resolution Status Admit Date MGUS (monoclonal gammopathy of unknown significance) chronic June 1:59pm Constipation acute September 09 1:47pm GERD (gastroesophageal reflu x disease) acute September 09, 2024 1 :47pm GI bleed acute September 09, 2024 1:47pm Fatty liver chronic September 09 1:47pm [facility] Work Phone: 1(431) 814-591901-29-2025 Evaluation note* Diagnosis Onset Date Resolution Status Admit Date Anemia acute May 19, 2024 6:15am Dysphagia acute May 19, 2024 6:15am GI bleed acute May 19, 2024 6:15am History of gastric bypass acute May 19, 2024 6:15am MGUS (monoclonal gammopathy of unknown significance) chronic June 192024 1:59pm [facility] Work Phone: 1(858) 197-706501-29-2025 [facility] Medical Records Department [address] [place] [address] History Physical Exam 05/19/24 0744 MR#: [id number] Acct: [id number] Name: CATHERINE BUI ANN Rep #: [id number] : 1975 48 From: Ramez Friend DO PCP: ALEXANDREA Armando Status:[facility] Location: [place] [address] HPI - General General Date of Admission: [...] 33cm; tortuous esophagus. 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 *[facility] hospitalization 10.29.22-11.01.22 with syncope/fall and BRBPR [...] and retroflexion views. No specimens collected. OV 5..24 Pt reports that she is having a [...] History buspirone 5 mg (more content not included)...[facility] 04-09-2024 Evaluation note* Diagnosis Onset Date Resolution Status Admit Date Degenerative disc disease at L5-S1 level acute April 09 1:39pm Thoracic radiculopathy acute 2023 1:39pm Anemia acute May 19, 2024 6:15am Dysphagia acute May 19, 2024 6:15am GI bleed acute May 19, 2024 6:15am History of gastric bypass acute May 19, 2024 6:15am MGUS (monoclonal gammopathy of unknown significance) chronic June 1:59pm [facility] Work Phone: 1(772) 172-807101-02-2024 Discharge summary Author Cesar Lloyd [facility] April 22, 2023 1:16pm Note Date/Time April 22, 2023 9: 46am [facility] Medical Records Department [address] [place] [address] Emergency Department Summary 04/22/23 MR#: [id number] Acct: [id number] Name: CATHERINE BUI ANN Rep #:[id number] : 1975 47 From: Cesar Lloyd MD [...] recent long travel, hospitalization, or surgery. [facility] Medical History Blood disorder Breast cancer screening [...] 76.8 H Lymph % (Auto) 16.7 L Monona % (Auto) 4.7 Eos % (Auto) 0.4 [...] Signed: Daniel Wheat MD at 10:27 EST , Rhythm Strip Rhythm Strip: Sinus Rhythm [...] Giancarlo Posadas NP Referrals: Giancarlo Posadas NP, ASSISTANT ASSOCIATE PROFESSOR-C [Primary Care Provider] - As soon as possible Disposition Disposition: Home, Self Care What to do if you have Problems For any increased pain, shortness of breath, bleeding, nausea or vomiting, chestpain, or any unexpected problems, contact your Primary Care Provider. Call [facility] ([phone]) or report to the closest Emergency Room. Call 911 if necessary. 04/22/23 1316 <Electronically signed by Cesar Lloyd MD> Cosigner Signature (if applicable): CC: APRILC Giancarlo Posadas ~ Signed [facility] Work Phone: 1(180) 130-396509-05-2023 Discharge summary Author Jarret Ramirez [facility] December 24, 2022 10:40am Note Date/Time December 24, 2022 10:38am [facility] Physical Therapy [facility] [address] [place] [address]. [address] [place] [id number] / REHABILITATION SERVICES DISCHARGE SUMMARY MR#: [id number] Acct: [id number] Name: CATHERINE BUI Rep #: [id number] : 1975 47 From: Cert. SHRUTI Wise, OCS Referring Dr.: TL Mccracken Status: REG RCR [facility] Patient Information Patient Information: CATHERINE BUI [...] physician. Thank you! Jarret Ramirez PT, Cert MDT, OCS Balance/Gait/Functional tests Balance/Special Test Scores Lower Extremity Functional Score: 66 <Electronically signed by Elizabeth Toussaint PT. SHRUTI, OCS> 12/24/22 1040 CC: TL Mccracken; Dr. Hermelinda Castillo MD ~ JLA Signed [facility] Work Phone: 1(568) 311-830007-14-2023 Consult note Author Rosibel Castellon [facility] November 01, 2022 11:17am Note Date/Time November 01, 2022 11:1 7am [facility] Medical Records Department [address] [place] [address] Counseling Note - Pharmacy 11/01/22 1116 MR#: [id number] Acct: [id number] Name: CATHREINE BUI ANN Rep #:[id number] : 1975 46 From: Rosibel Castellon PCP: Dr. Hermelinda Castillo MD Status:A DM IN Y Location: [facility] MQU257 1 Pharmacy [facility] Service has performed discharge medication reconciliation [...] discrepancies were resolved. patient counselled by Neftali Clarke, YancyD Candidate Medications at Discharge Home Medications calcium [...] by Rosibel Castellon > Date _ Rosibel Saeedigner Signature (if applicable): Date CC: ~ Signed [facility] Work Phone: [phone]) 646-615907-14-2023 Discharge summary Author Ganesh Bell [facility] November 01, 2022 10:04am Note Date/Time November 01, 2022 10:0 0am [facility] Medical Records Department [address] [place] [address] Discharge Summary 11/01/22 0959 MR#: [id number] Acct: [id number] Name: CATHERINE BUI Rep #:[id number] : 1975 46 From: Ganesh Bell MD PCP: Dr. Hermelinda Castillo MD Status:A DM IN [facility] Prov[facility] Date of Admission: 10/29/22 Date of Discharge: 11/01/22 Primary Care Physician: Dr. Hermelinda Castillo MD Consultations 10/29/22 12:42 Consult: Gastroenterology Routine Consulting Provider: [facility] Reason for Consult: GI bleed EMERGENT [...] % (Auto) 64.7, Lymph % (Auto) 26.0, Monona % (Auto) 6.0, Eos % (Auto) 1.6, [...] Self Care Charges/Coding Visit Charges Inpatient E&M: 31801 Disch Hosp >30min 11/01/22 1004 <Electronically signed by Ganesh Bell MD> Cosigner Signature (if applicable): CC: Dr. Ganesh Bell MD; Dr. Hermelinda Castillo MD~ Signed [facility] Work Phone: 1([phone]) 137-448907-14-2023 Progress note Author Ganesh Bell [facility] November 01, 2022 9:42am Note Date/Time November 01, 2022 8:07 am [facility] Medical Records Department [address] [place] [address] Progress Note - Hospitalist 11/01/22 0803 MR#: [id number] Acct: [id number] Name: CATHERINE BUI ANN Rep #:[id number] : 1975 46 From: Ganesh Bell MD PCP: Dr. Hermelinda Castillo MD Status:A DM IN Location: [place] [address] Reason for Visit Reason for Visit: Diagnoses [...] 10/31/22 11/01/22 23:59 23:59 23:59 Intake Total 8.00 / 8.00 2200 / 2200 1100 / 1100 Balance 8.00 / 8.00 2200 / 2200 1100 / 1100 Lab [...] % (Auto) 64.7, Lymph % (Auto) 26.0, Monona % (Auto) 6.0, Eos % (Auto) 1.6, [...] 35 Minutes Charges/Coding Visit Charges Inpatient E&M: 63208 [facility] Hosp L2 11/01/22 0942 <Electronically signed by Ganesh Bell MD> Cosigner Signature (if applicable): CC: ~ Signed [facility] Work Phone: 1(565) 921-954007-13-2023 Discharge summary Author Henok Bassett [facility] October 31, 2022 3:17pm Note Date/Time October 29, 2022 6:04 am [facility] Medical Records Department [address] [place] [address] Emergency Department Summary 10/29/22 MR#: [id number] Acct: [id number] Name: CATHERINE BUI Rep #:[id number] : 1975 46 From: Henok Bassett MD PCP: Dr. Hermelinda Castillo MD Status:A DM IN [facility] <Dr. Henok Bassett MD - [...] Milvia-en-Y gastric bypass by Dr. Romero in [place] in 2019. [facility] <Dr. Henok Bassett MD - Last Filed: 10/29/22 06:53> [facility] Medical History Breast cancer screening Chronic constipation [...] Oxygen Delivery Method Room Air Room Air [facility] <Dr. Henok Bassett MD - Last Filed: 10/29/22 06:53> [facility] Narrative Medical decision making narrative: Patient [...] % (Auto) 58.1 Lymph % (Auto) 33.1 Monona % (Auto) 5.4 Eos % (Auto) 1.7 [...] ectopy. No acute ST elevation or depression. [place] interval,QRS duration and QTc are normal. <Dr. Shabbir Metzger, DO - Last Filed: 10/29/22 12:03> [facility] Lab Data Labs: Laboratory Results - last 24 hr 10/29/22 10/29/22 05:35 09:35 WBC 14.4 H RBC 3.75 L Hgb 11.4 L Hct 34.5 L MCV 92.0 MCH 30.4 MCHC 33.0 RDW Std Deviation 42.3 RDW Coeff of Cristin 12.4 Plt Count 371 MPV 10.3 Immature Gran % (Auto) 0.600 Neut % (Auto) 58.1 Lymph % (Auto) 33.1 Monona % (Auto) 5.4 Eos % (Auto) 1.7 [...] your Primary Care Provider. Call [facility] ([phone]) or report to the closest Emergency Room. Call 911 if necessary. 10/31/22 1517 <Electronically signed by Henok Bassett MD> Cosigner Signature (if applicable): 10/29/22 1203 <Electronically signed by Shabbir Metzger DO> CC: Dr. Hermelinda Castillo MD ~ Signed [facility] Work Phone: 1([phone]) [phone] [facility] 10-31-[address] [facility]07-13-2023 Progress note Author Ganesh Bell [facility] October 31, 2022 11:51am Note Date/Time October 31, 2022 8:11 am [facility] Medical Records Department [address] [facility] [place] [address] Progress Note - Hospitalist 10/31/22809 MR#: [id number] Acct: [id number] Name: CATHERINE BUI Rep #:[id number] : 1975 46 From: Ganesh Bell MD PCP: Dr. Hermelinda Castillo MD Status:A DM IN Location: [place] [address] Reason for Visit Reason for Visit: Diagnoses [...] 10/31/22 23:59 23:59 23:59 Intake Total 50 / 2097. / 2097. 1100 / 1100 Balance 50 2097. / 8.00 1100 / 1100 Lab / Micro Data [...] (Auto) 71.7 H, Lymph % (Auto) 21.0, Monona % (Auto) 5.3, Eos % (Auto) 0.7, [...] 50 Minutes Charges/Coding Visit Charges Inpatient E&M: 87052 [facility] Hosp 10/31/22 1151 <Electronically signed by Ganesh Bell MD> Cosigner Signature (if applicable): CC: ~ Signed [facility] Work Phone: 1(229) 829-133907-12-2023 Progress note Author Ramez Villatoro [facility] October 30, 2022 5:17pm Note Date/Time October 30, 2022 5:11 pm [facility] Medical Records Department [address] [place] [address] Progress Note - GI 10/30/22 1711 MR#: [id number] Acct: [id number] Name: CATHERINE BUI ANN Rep #:[id number] : 1975 46 From: Ramez Villatoro DO PCP: Dr. Hermelinda Castillo MD Status:A DM EMILY Location: [place] [address] Subjective Subjective Patient underwent an upper endoscopy [...] 23:59 23:59 23:59 Intake Total 50 / 1966.50 1902. / 1902. Balance 50 1966.50 / Lab / Micro Data 10/30/22 [...] (Auto) 71.4 H, Lymph % (Auto) 21.5, Monona % (Auto) 5.4, Eos % (Auto) 0.4, [...] (Auto) 71.7 H, Lymph % (Auto) 21.0, Monona % (Auto) 5.3, Eos % (Auto) 0.7, [...] upper endoscopy. Charges/Coding Visit Charges Inpatient E&M: 50835 Subs Hosp L3 10/30/224 <Electronically signed by Ramez Friend > Cosigner Signature (if applicable): CC: ~ Signed [facility] Work Phone: 1(844) 492-149007-12-2023 Progress note Author Ganesh Bell [facility] October 30, 2022 10:23am Note Date/Time October 30, 2022 8:27 am [facility] Medical Records Department [address] [place] [address] Progress Note - Hospitalist 10/30/22822 MR#: [id number] Acct: [id number] Name: CATHERINE BUI Rep #:[id number] : 1975 46 From: Ganesh Bell MD PCP: Dr. Hermelinda Castillo MD Status:A DM EMILY Location: [place] [address] Reason for Visit Reason for Visit: Diagnoses [...] 10/29/22 10/30/22 23:59 23:59 23:59 Intake Total / 1966. 1006.67 / 1006.67 Balance 1006.67 / 1006.67 Lab / Micro Data [...] (Auto) 71.4 H, Lymph % (Auto) 21.5, Monona % (Auto) 5.4, Eos % (Auto) 0.4, [...] 35 Minutes Charges/Coding Visit Charges Inpatient E&M: 11346 Subs Hosp L2 10/30/22 1023 <Electronically signed by Ganesh Bell MD> Cosigner Signature (if applicable): CC: ~ Signed [facility] Work Phone: 1(764) 160-116707-11-2023 Consult note Author Ramez Villatoro [facility] October 29, 2022 5:48pm Note Date/Time October 29, 2022 5:49 pm [facility] Medical Records Department [address] [place] [address] Consultation - GI 10/29/22 1745 MR#: [id number] Acct: [id number] Name: CATHERINE BUI ANN Rep #:[id number] : 1975 46 From: Ramez Villatoro DO PCP: Dr. Hermelinda Castillo MD Status:A DM EMILY Location: [place] [address] HPI Consult Data Date of Consult: 10/29/22 [...] aRoux-en-Y gastric bypass by Dr. Romero in [place] in 2019 [facility] Medical History Breast cancer screening Chronic constipation [...] Neut % (Auto) 58.1, Lymph % (Auto) 33.1,Monona % (Auto) 5.4, Eos % (Auto) 1.7, [...] of 3. Charges/Coding Visit Charges Inpatient E&M: 66412 Init Hosp L3 10/29/22 1748 <Electronically signed by Ramez Villatoro DO> Cosigner Signature (if applicable): CC: Dr. Hermelinda Castillo MD~ Signed [facility] Work Phone: 1(784) 194-926207-11-2023 History and physical note Author Giancarlo Boyle [facility] October 29, 2022 4:35pm Note Date/Time October 29, 2022 4:35 pm [facility] Medical Records Department [address] [facility] [place] [address] H&P Exam - Hospitalist 10/29/22 1628 MR#: [id number] Acct: [id number] Name: CATHERINE BUI Rep #:[id number] : 1975 46 From: Giancarlo Boyle DO PCP: Dr. Hermelinda Castillo MD Status:A DM EMILY Location: [facility]- 1 HPI - General General Date of Admission: 10/29/22 Date of Service: 10/29/22 Chief Complaint: Hematemesis, bright red rectal bleeding HPI Narrative CATHERINE BUI, is a 46 F who presents to the emergency room at [facility] with a chief complaint of hematemesis early [...] her medicationswill be held at this time. [facility] Medical History Breast cancer screening Chronic constipation [...] Neut % (Auto) 58.1, Lymph % (Auto) 33.1,Monona % (Auto) 5.4, Eos % (Auto) 1.7, [...] 55 minutes Charges/Coding Visit Charges Inpatient E&M: 96290 Init Hosp L2 10/29/22 1635 <Electronically signed by Giancarlo Boyle DO> Cosigner Signature (if applicable): CC: Dr. Hermelinda Castillo MD; Dr. Giancarlo Boyle DO~ Signed [facility] Work Phone: 1(242) 845-180907-11-[address] [facility] 10-29-[address] [facility]2022 NoteHNO ID: [id number] Author: Evangelina Saeed MD Service: ? Author Type: Physician Type: Progress Notes Filed: 03/13/2022 12:25 PM Note Text: Endocrinology Metabolism [place] [facility] Evangelina Saeed M.D. Section of Endocrine Surgery and Advanced Laparoscopic Surgery [address] [place] [address] ENDOCRINE SURGERY NEW CONSULTATION NAME: [facility] NO: [id number] : 1975 Surgeon: Dr. Evangelina Saeed REFERRING PROVIDER: Corey Rainey [id number] [place] [address] The patient was referred by the above [...] FLUID, FINE NEEDLE ASPIRATION, 10 OUTSIDE SLIDES, ([id number]), [place], [place], (01-08-21): Benign. Consistent with colloid nodule with cystic changes. B - SLIDE(S) - RIGHT THYROID NODULE FLUID, FINE NEEDLE ASPIRATION, 9 OUTSIDE SLIDES, ([id number]), [place], (05-14-2021): Non-diagnostic aspirate sample. Cyst Contents [...] which included preparing to see the patient, [id number] patient care, completing cl (more content not included)...[facility]2022 History of Present illness Narrative* Evangelina Saeed MD - 03/13/2022 12:09 PM EST Endocrinology Metabolism [place] [facility] Evangelina Saeed M.D. Section of Endocrine Surgery and Advanced Laparoscopic Surgery [address] [place] [address], [address]k [address] [place] [address] ENDOCRINE SURGERY NEW CONSULTATION NAME: Catherine Bui [facility] NO: [id number] : 1975 Surgeon: Dr. Evangelina Saeed REFERRING PROVIDER: Corey Rainey [address] [facility] [address] The patient was referred by the above [...] FLUID, FINE NEEDLE ASPIRATION, 10 OUTSIDE SLIDES, ([id number]), [place], [place], (01-08-21): Benign. Consistent with colloid nodule with cystic changes. B - SLIDE(S) - RIGHT THYROID NODULE FLUID, FINE NEEDLE ASPIRATION, 9 OUTSIDE SLIDES, ([id number]), [place], (05-14-2021): Non-diagnostic aspirate sample. Cyst Contents [...] which included preparing to see the patient, lmhw-[id number] patient care, completing clinical documentation, obtaining and/or reviewing separately obtained history, performing a medically appropriate examination, counseling and educating the pat ient/family/caregiver, communicating with other HCPs (not separately reported), independently interpreting results (not separately reported), communicating results to the patient/family/caregiver, and care coordination (not separately reported). Sincerely, Evangelina Saeed MD 03/13/2022 CC: Corey Rainey [id number] [facility] [place] [address] documented [facility] Instructions* Patient Instructions* Erica Calderon Ma - 03/13/2022 11:10 AM EST Thank you for choosing the [facility] Department of Endocrinology, Diabetes and Metabolism. Did you know that you need to call 48 hours in advance of your scheduled visit, if you are unable to make your appointment? The Endocrinology and Metabolism [place] thanks you for your commitment, because patients not showing to their appointment results in a lost opportunity for patients to receive [facility] care at the [facility]. To Cancel an appointment, please choose one of the following: - Call the Appointment Call Center at [phone] - From [employer], Go to Appointments - Cancel Appts If cancelling, consider your need to reschedule to prevent further delays in your care. To Schedule an appointment, please choose one of the following: - Call the Appointment Call Center at [phone] - From [employer], Go to Appointments - Request an Appt documented in this encounterScci [facility]11-18-2022 Miscellaneous Notes* Telephone Encounter - Corey aRiney MD - 03/08/2022 5:23 PM EST 01/2022: TSH: 0.62 Corey Rainey MD * Telephone Encounter - Nany aGray - 03/06/2022 9:07 AM EST Uploaded labs from [facility] received on 02/21/2022 scanned into chart for review TSH results Nany Garay Size Stamper II [facility] documented in this encounterScci Hospital [facility]11-15-2022 Miscellaneous Notes* Telephone Encounter - Yelena Jiang - 03/05/2022 1:59 PM EST 03/05/2022-INTAKE COMPLETED- US COMPLETED LOCALLY-TSH COMPLETED LOCALLY- REQUESTED SLIDES FROM [facility] FROM [place]. ENDOCRINE SURGERY PATIENT WORKSHEET Initial Call Date: March 05, 2022 Reason for Consult/ Referral: Thyroid Nodule PATIENT DEMOGRAPHICS Name: Catherine Bui CCF#: [id number] : 1975 AGE: [age] year old Contact Numbers: Home: (home) Work: There is no work phone number on file. PATIENT PHYSICIAN INFORMATION Referring Doctor: Address: Phone: Otolaryngology Nurse: Address: Phone: PCP: Luciano Nails MD [address] [place] [address] PAST TREATMENT Office notes: SEE [facility] Medications: NONE THAT APPLY Pre-Visit Testing STUDY/TEST DATE ORDERED/REQUESTED DATE RECEIVED/COMPLETED ENTIRE PANEL TSH COMPLETED LOCALLY-SCANNED INTO [facility] FREE T4 FREE T3 Imaging Reports: SEE [facility] CD of Images: SEE [facility] FNA: yes: 01/09,05/12 FNA Slides: Slides requested from outside facility (Date received: ) Has the patient ever had thyroid or parathyroid surgery before: Yes: Thyroid (Date: ? 2007) Operative Reports: SEE [facility] Pathology Reports: SEE EPIC documented in this encounterScci [facility]10-21-2022 NoteHNO ID: [id number] Author: Corey Rainey MD Service: ? Author [...] Luciano Nails MD, MD Luciano Nails MD [address] [facility] [address] [place] [id number] History of Present Illness Catherine Bui is [...] or chest? no Intake of iodine/kelp/seaweed: no Tibes: no Steroids: no Warfarin: no Amiodarone: no Past History, Medications, Allergies PAST MEDICAL HISTORY Diagnosis Date Adjustment disorder with depressed mood Migraine Nontoxic uninodular goiter LEFT PAST SURGICAL HISTORY Procedure Laterality Date DELIVERY ONLY 06-04-2001 , low cervical LAPAROSCOPIC CHOLEYCYSTECTOMY 2006 Cholecystectomy, lap LIGATE FALLOPIAN TUBE SEPTEMBER 2001 [...] TSH: 0.58 Cytology 01/20 (more content not included)...[facility]10-21-2022 History of Present illness Narrative* Corey Rainey [...] mail. PCP is Luciano Nails MD, MD Lucaino Nails MD [address] [place], [place] [id number] History of Present Illness Catherine Bui is a 46 year old female with PMH of Thyroid nodules s/p left lobectomy 1999 (benign), left vocal cord paralysis, right thyroid nodules, Obesity s/p Gastric bypass in 2018, Hx of GERD andMigraines, visit for evaluation [...] or chest? no Intake of iodine/kelp/seaweed: no Tibes: no Steroids: no Warfarin: no Amiodarone: no [...] Gastric bypass in 2018, Hx of GERD andMigraines, visit for evaluation [...] reported). 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 - gauge 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 Hx Hospitalization No 07/22/24 09:40 Any Problems [...] take am of surgery PONV PONV - gauge 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: PONV - gauge 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 Female Yes 07/22/24 09:40 HX of Motion [...] 07/06/24 14:24 Respiratory Assessment Respiratory Assessment - gauge 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: Respiratory Tract Infection Hx - gauge 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 Hx Respiratory Tract Infection No 07/22/24 09:40 STOP Sleep Apnea STOP Sleep Apnea - gauge 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: STOP Sleep Apnea - gauge 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 Hx Hypertension Yes: CONTROLLED WITH MED 07/22/24 [...] 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: Tobacco Use History - gauge 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 Tobacco Use Smoking Status Never smoker 07/22/24 09:40 Hx Tobacco Use No 07/22/24 09:40 Years Smoking Packs Smoked per Day Smoking Cessation Date was within the last 15 years Hx Smoking Cessation Date Hx Smoking Cessation Counseling Hematologic Medial History Hematologic Hx - gauge 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 07/26/24 0852 <Electronically signed by Rony Dixon MD > Date _ Rony Jimenez Signature: Date CC: ~ Signed [facility] Work Phone: Consult note Author Ruth Varghese [facility] Note Date/Time July 26, 2024 10:[address] [facility] [address] [place] [address] [place] [address] Anesthesia Postop Eval I 07/26/24 1010 MR#: [id number] Acct: [id number] Name: RAMYAQUANAMRIK Rep #:[id number] : 1975 48 From: Ruth Varghese PCP: ALEXANDREA Armando Status:REG [facility] Y Race: C Location: [place] [address] Anesthesia: Postop Eval I Current Vital Signs [...] signed by Ruth vigil> Date _ Ruth Jimenez Signature: Date CC: ~ Signed [facility] Work Phone: Consult note Author Rony Dixon [facility] Note Date/Time July 26, 2024 10:4 6am [facility] Medical Records Department [address] [place] [address] Anesthesia Postop Eval II 07/26/24 1034 MR#: [id number] Acct: [id number] Name: CATHERINE BUI Rep #:[id number] : 1975 48 From: Rony Dixon MD PCP: ALEXANDREA Armando Status:REG SDC Y Race: C Location: [place] [address]- Anesthesia Postop Eval I Sum Postop Eval Completion status Anesthesia document: Postop Eval 1 completed: Yes Anesthesia Postop Eval I Summary Anesthesia Postop Eval I Summary: Anesthesia Postop Eval I: Assessment Summary Airway patent Yes 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 Spontaneous unlabored Yes 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 respirations Mental status nausea No 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 Vomiting No 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 Anesthesia Postop Eval I: Fluid Summary Crystalloid volume administer 10 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 (ml) Colloids volume administered ( ml) Blood Product volume administered (ml) Total IV fluid infused 10 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 Anesthesia Postop Eval I: Summary Notes Anesthesia Complication No 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 Anesthesia Complication Comment: Post-operative progress note Anesthesia: Postop Eval II Evaluation Mental status: Awake Pain Level: 0 nausea: No Vomiting: No 07/26/24 1034 <Electronically signed by Rony Dixon MD > Date _ Rony Dixon MD Cosigner Signature: Date CC: ~ Signed [facility] Work Phone: Consult note Author Veronica Wilhelm [facility] Note Date/Time November 08, 2024 9:49 am [facility] Medical Records Department [address] [place] [address] Pre-Anesthesia Evaluation 11/08/24 0946 MR#: [id number] Acct: [id number] Name: CATHERINE BUI Rep #:[id number] : 1975 48 From: Veronica christopher CRNA PCP: ALEXANDREA Armando Status:REG SDC Y Race: C Location: [facility] ASA Classification* ASA Classification ASA Classification: 2 [...] risk assessments. Anesthesia Type Anesthesia Type: MAC History Source History Obtained from:: Patient and Chart Anesthesia Focused Assessment* Temperature: 97.8 F Pulse Rate: 67 Blood Pressure: 116/83 Respiratory Rate: 16 Pulse Ox: 99 Oxygen Delivery Method: Room Air Airway Assessment Mouth opens: >3 cm Mallampati Score: I Teeth Condition: Intact Neck Range of motion (ROM): Full ROM Labs Anesthesia Preop lab: CBC WBC 9.4 K/mm3 (4.4-11.0) 09/27/24 08:09/27/24 RBC 4.67 M/mm3 (4.2-5.4) 09/27/24 08:25 09/27/24 Hgb 14.4 g/dL (12.0-15.0) 09/27/24 08:25 09/27/24 Hct 41.4 % (37-47) 09/27/24 08:25 09/27/24 Plt Count 290 K/mm3 (150-450) 09/27/24 08:25 09/27/24 CHEMISTRY Potassium 3.9 mmol/L (3.3-5.1) 09/15/24 06:14 09/15/24 Sodium 140 mmol/L (133-145) 09/15/24 06:14 09/15/24 Magnesium 2.1 mg/dL (1.6-2.6) 03/07/23 12:15 03/07/23 Phosphorus 3.6 mg/dL (2.5-4.9) 12/13/22 06:06 12/13/22 BUN 7 mg/dL (4-19) 09/15/24 06:14 09/15/24 Creatinine 0.51 mg/dL (0.70-1.20) L 09/15/24 06:14 Glucose 85 mg/dL (70-99) 09/15/24 06:14 09/15/24 POC Glucose 84 mg/dL (74-106) 07/26/24 09:19 07/26/24 TSH 2.070 uIU/mL (0.300-4.200) 09/15/24 06:14 08/20 12/13 COAG PT 13.3 SECONDS (11.7-14.9) 07/07/23 14:19 Pre-Assessment Diagnosis/Proposed Procedure Planned Operative Procedure(s): RIGHT LUMBAR TRANSFORMINAL EPIDURAL L4 L5 S1 Anesthesia History 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 When Was Last Pacemaker Check QUESTION #4 FULL TEXT: You/Your Family Experience fever (hyperthermia) with Anesthesia Last Oral Intake Last Oral intake: Last Oral Intake NPO since 21:00 11/08/24 09:35 Meds taken in AM with sips of Yes 11/08/24 09:35 water? Meds patient instructed to constance navarrete buspar, 11/08/24 09:35 take am of surgery protonix PONV PONV - gauge 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: PONV - gauge 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 Female Yes 10/29/24 13:14 HX of Motion Sickness No 10/29/24 13:14 HX of N/V After Surgery Yes 10/29/24 13:14 Non-Smoker Yes 10/29/24 13:14 Duration of Surgery greater No 10/29/24 13:14 than 60 minutes Number of Risk Factors 3 10/29/24 13:14 PONV Score Moderate Risk 10/29/24 13:14 Height & Weight Height & Weight: Anesthesia: Height & Weight Height 5 ft 4 in 11/08/24 09:35 Weight: 90.2 kg 11/08/24 09:35 Body Mass Index (BMI) 34.1 11/08/24 09:35 Respiratory Assessment Respiratory Assessment - gauge 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: Respiratory Tract Infection Hx - gauge 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 Hx Respiratory Tract Infection No 10/29/24 13:14 STOP Sleep Apnea STOP Sleep Apnea - gauge 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: STOP Sleep Apnea - gauge 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 Hx Hypertension Yes: CONTROLLED WITH MED 10/29/24 13:14 Hx Sleep Apnea Yes 10/29/24 13:14 CPAP Yes 10/29/24 13:14 BIPAP No 10/29/24 13:14 Do you snore loudly (louder than talking or can be heard Do you often feel tired/ fatigued/ sleepy during daytime? Has anyone observed you stop breathing during sleep? STOP Results Positive 10/29/24 13:14 QUESTION #5 FULL TEXT : Do you snore loudly (louder than talking or can be heard through closed doors)? 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 Specify any problems Hx of Preganancy in last 3 No 10/29/24 13:14 Months Nurse Filling Out Transfusion DSCHRIBER 10/29/24 13:14 & Questions: Date: 10/29/24 10/29/24 13:14 Time: 13:16 10/29/24 13:14 Patient unable to answer at this time (ie. confused, unrespo /Reproduction History /Reproductive History - gauge 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: /Reproductive Hx- gauge 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 Hx Now No 10/29/24 13:14 Gestational Age (in weeks): EDC: Hx Hx Para Hx Section SAB No 10/29/24 13:14 Active Medications Active Medications: Current Medications Generic Name Dose Route Start Last Admin Trade Name Freq PRN Reason Stop Dose Admin Lactated Ringer's 1,000 mls @ 15 mls/hr 11/08/24 09:30 11/08/24 09:39 IV 15 mls/hr .Q48H GRISELDA Administration PFSH Medical History (Updated 10/29/24 @ 13:19 by Gina Murry) Anxiety Back pain Blood disorder Syncope MGUS (monoclonal gammopathy of unknown significance) GI bleed Wears glasses Thyroid disease Low iron Migraine headache History of hiatal hernia History of IBS Non-smoker Vocal cord dysfunction Breast cancer screening Hemangioma Chronic left hip pain Right thyroid nodule [...] 04/18/23 Unknown History buspirone 5 mg tablet 10 mg PO TID 09/12/23 History ursodiol 250 mg tablet 250 mg PO BID #60 tabs 09/1105/18/24 Rx semaglutide 1 mg/dose (4 mg/3 mL) 1 mg subcut MOFR 02/1110/28/24 History subcutaneous pen injector pantoprazole 40 mg tablet,delayed 40 mg PO BID #120 TA BLETS 03/17/24 11/08/24 Rx release sucralfate 1 gram tablet 1 g PO TIDAC 30 days #90 tab s 03/17/24 05/18/24 Rx amlodipine 5 mg tablet 10 mg PO QHS 07/06/24 Unknow n History duloxetine 20 mg capsule,delayed 20 mg PO BID Fibromya lgia 09/09/24 11/08/24 History release (Cymbalta) vitamin E (dl, acetate) 450 mg 450 mg PO QDAY 09/09/24 Unknown History (1,000 unit) capsule cariprazine 1.5 mg capsule 1.5 mg PO DAILY 10/29/24 History (Vraylar) lorazepam 0.5 mg tablet (Ativan) 0.5 mg PO Q12H PRN sl eep 10/29/24 Unknown History Allergy/AdvReac Type Severity Reaction Status Date / Time NSAIDS (Non-Steroidal Allergy unknown Verified 11/08/24 09:32 Anti-Inflamma Penicillins Allergy Rash Verified 11/08/24 09:32 sulfamethoxazole (From Allergy rash Verified 11/08/24 09:32 Bactrim) trimethoprim (From Bactrim) Allergy rash Verified 11/08/24 09:32 Family History Aunt Cancer uterine cancer Brother Asthma Sister Autoimmune disorder Other Breast cancer Diabetes Heart disease Hypertension Myocardial infarction Parkinson disease Surgical History (Updated 10/29/24 @ 13:19 by Gina Murry) Hx of surgical procedure Hx of colonoscopy History of esophagogastroduodenoscopy (EGD) History of surgical removal of ganglion cyst History of hysterectomy Gastric bypass status for obesity H/O section S/P thyroid surgery Hx of cholecystectomy Social History Smoking Status: Never smoker Review of Systems (Anesthesia) ROS Narrative System reviewed and no additional complaints, except as documented. 11/08/24 0949 <Electronically signed by Veronica maya CRNA> Date _ Veronica Wilhelm CRNA Cosigner Signature: Date CC: ~ Signed [facility] Work Phone: Consult note Author Last Barroso [facility] Note Date/Time November 08, 2024 10:5 1am [facility] Medical Records Department [address] [place] [address] Anesthesia Postop Eval I 11/08/24 1017 MR#: [id number] Acct: [id number] Name: CATHERINE BUI ANN Rep #:[id number] : 1975 48 From: Last KABA PCP: ALEXANDREA Armando Status:REG [facility] Y Race: C Location: [facility] Anesthesia: Postop Eval I Current Vital Signs Temperature: 36 F Pulse Rate: 67 Blood Pressure: 115/78 Respiratory Rate: 14 Pulse Ox: 97 Assessment Airway patent: Yes Spontaneous unlabored respirations: Yes nausea: No Vomiting: No Anesthesia Complication: No Fluid Hydration Crystalloid volume administer (ml): 300 Total IV fluid infused: 300 Progress Note Anesthesia document: Postop Eval 1 completed: Yes 11/08/24 1017 <Electronically signed by Last [place] CRNA> Date _ Last Saeedigner Signature: Date CC: ~ Signed [facility] Work Phone: Evaluation note* Diagnosis Onset Date Resolution Status Hypertension chronic Ganglion cyst noneactive Right otitis externa noneact vince De Quervain's tenosynovitis, left acute Ganglion cyst of volar aspect of wrist acute Dermatitis noneactive Ganglion cyst of volar aspect of wrist acute Gastric bypass status for obesity acute Chronic dental pain noneacti ve [facility] Work Phone: Evaluation note* Diagnosis Onset Date Resolution Status Ganglion cyst of volar aspect of wrist acute Gastric bypass status for obesity acute Chronic dental pain noneacti ve Cystic thyroid nodule acute S/P thyroid surgery acute Vocal cord paralysis, unilateral complete acute [facility] Work Phone: Evaluation note* Diagnosis Dysphagia, unspecified type- Primary Uninodular goiter (nontoxic) Nontoxic uninodular goiter [facility] Diagnosis Onset Date Resolution Status Ganglion cyst of volar aspect of wrist acute Gastric bypass status for obesity acute Chronic dental pain noneacti ve Cystic thyroid nodule acute S/P thyroid surgery acute Vocal cord paralysis, unilateral complete acute Pruritus noneactive Contact dermatitis noneactiv e [facility] Work Phone: Evaluation note* Diagnosis Uninodular goiter (nontoxic)- Primary Nontoxic uninodular goiter [facility] Diagnosis Uninodular goiter (nontoxic) Nontoxic uninodular goiter [facility] Diagnosis Onset Date Resolution Status Cystic thyroid nodule acute S/P thyroid surgery acute Vocal cord paralysis, unilateral complete acute Pruritus noneactive Contact dermatitis noneactiv e Cystic thyroid nodule acute Dysphagia acute Gastric bypass status for obesity acute Vocal cord paralysis, unilateral complete acute [facility] Work Phone: Evaluation note* Diagnosis Onset Date Resolution Status Cystic thyroid nodule acute Dysphagia acute Gastric bypass status for obesity acute Vocal cord paralysis, unilateral complete acute Acute maxillary sinusitis no neactive Mass of skin of left lower leg acute Hypertension chronic [facility] Work Phone: Evaluation note* Diagnosis Onset Date Resolution Status Acute maxillary sinusitis no neactive Mass of skin of left lower leg acute Hypertension chronic [facility] Work Phone: Evaluation note* Diagnosis Onset Date Resolution Status Anemia acute Bright red blood per rectum acute Chipped tooth acute Elevated blood sugar acute Hematemesis acute History of gastric bypass ac [place] Laceration of lower lip acut e Syncope acute [facility] Work Phone: Evaluation note* Diagnosis Onset Date Resolution Status Anemia acute Chipped tooth acute History of gastric bypass ac [place] Bright red blood per rectum resolved Elevated blood sugar resolve d Hematemesis resolved Laceration of lower lip reso lved Syncope resolved [facility] Work Phone: Evaluation note* Diagnosis Onset Date Resolution Status Anemia acute Chipped tooth acute History of gastric bypass ac [place] Bright red blood per rectum resolved Elevated blood sugar resolve d Hematemesis resolved Laceration of lower lip reso lved Syncope resolved Anemia acute GI bleed acute History of gastric bypass ac [place] Hematemesis resolved Syncope resolved [facility] Work Phone: Evaluation note* Diagnosis Onset Date Resolution Status Anemia acute Chipped tooth acute History of gastric bypass ac [place] Bright red blood per rectum resolved Elevated blood sugar resolve d Hematemesis resolved Laceration of lower lip reso lved Syncope resolved Anemia acute GI bleed acute History of gastric bypass ac [place] Hematemesis resolved Syncope resolved Colon cancer screening acute Preventative health care acu te [facility] Work Phone: Evaluation note* Diagnosis Onset Date Resolution Status Anemia acute GI bleed acute History of gastric bypass ac [place] Hematemesis resolved Syncope resolved Colon cancer screening acute Preventative health care acu te [facility] Work Phone: Evaluation note* Diagnosis Onset Date Resolution Status Colon cancer screening acute Preventative health care acu te Dysphagia acute Vocal cord paralysis, unilateral complete acute Cystic thyroid nodule chroni c [facility] Work Phone: Evaluation note* Diagnosis Onset Date Resolution Status Dysphagia acute Vocal cord paralysis, unilateral complete acute Cystic thyroid nodule chroni c Low back pain acute MGUS (monoclonal gammopathy of unknown significance) chronic Colon cancer screening acute GI bleed acute [facility] Work Phone: Evaluation note* Diagnosis Onset Date Resolution Status Dysphagia acute Vocal cord paralysis, unilateral complete acute Cystic thyroid nodule chroni c Low back pain acute MGUS (monoclonal gammopathy of unknown significance) chronic Colon cancer screening acute GI bleed acute MGUS (monoclonal gammopathy of unknown significance) [facility] Work Phone: Evaluation note* Diagnosis Onset Date Resolution Status Low back pain acute MGUS (monoclonal gammopathy of unknown significance) chronic Colon cancer screening acute GI bleed acute MGUS (monoclonal gammopathy of unknown significance) [facility] Work Phone: Evaluation note* Diagnosis Onset Date Resolution Status MGUS (monoclonal gammopathy of unknown significance) [facility] Work Phone: [facility] Work Phone: Progress note Author Stephane Melgar [facility] Note Date/Time January 10, 2025 2:12pm [facility] [address] [place] [id number] OFFICE VISIT Date of Service: 01/10/25 1335 MR#: [id number] Acct: [id number] Name: CATHERINE BUI Rep #: [id number] : 1975 From: Stephane Melgar MD Age/Sex: 49/F [place] [facility] [place]: Signed HPI Subjective Date of Service 01/10/25 Chief Complaint F/u for MGUS. History of Present Illness 49y.o.woman was found to have abnormal serum protein and referred for further evaluation. Skeletal survey on 04/03/2023 was negative. Was found to have IgG Lambda M-protein 0.4g/dl. She is on observation. Had blood work and comes for follow up. She feels well. [facility] Medical History Anxiety Back pain Blood disorder Syncope MGUS (monoclonal gammopathy of unknown significance) GI bleed Wears glasses Thyroid disease Low iron Migraine headache History of hiatal hernia History of IBS Non-smoker Vocal cord dysfunction Breast cancer screening Hemangioma Chronic left hip pain Right thyroid nodule GERD (gastroesophageal reflux disease) Essential hypertension DM 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 Surgical History Hx of surgical procedure Hx of colonoscopy History of esophagogastroduodenoscopy (EGD) History of surgical removal of ganglion cyst History of hysterectomy Gastric bypass status for obesity H/O section S/P thyroid surgery Hx of cholecystectomy Family History Aunt Cancer uterine cancer Brother Asthma Sister Autoimmune disorder Other Breast cancer Diabetes Heart disease Hypertension Myocardial infarction Parkinson disease Social History (Updated 12/10/24 @ 08:18 by Danielle Stone) adopted: No household members: spouse and children number of children: 2 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 current occupational exposures/hazards: No pets and animals: Yes history of recent travel: No sexually active: Yes Smoking Status: Never smoker second hand exposure: No alcohol intake: never well-balanced diet: about half the time caffeine: Yes eating out: 1-3 times/week during the past year weight has: decreased > 10 lbs seatbelt use: always do you feel safe at home: Yes ROS Constitutional Constitutional: Reports systems reviewed and no addt'l complaints, except as documented Eyes Eyes: Reports systems reviewed and no addt'l complaints, except as documented ENT HEENT: Reports systems reviewed and no addt'l complaints, except as documented Cardiovascular Cardiovascular: Reports systems reviewed and no addt'l complaints, except as documented Respiratory/Chest Respiratory/Chest: Reports systems reviewed and no addt'l complaints, except as documented Gastrointestinal Gastrointestinal: Reports systems reviewed and no addt'l complaints, except as documented Genitourinary Genitourinary: Reports systems reviewed and no addt'l complaints, except as documented Musculoskeletal Musculoskeletal: Reports systems reviewed and no addt'l complaints, except as documented and back pain Integumentary Integumentary: Reports systems reviewed and no addt'l complaints, except as documented Neurologic Neurologic: Reports systems reviewed and no addt'l complaints, except as documented Psychiatric Psychiatric: Reports systems reviewed and no addt'l complaints, except as documented Endocrine Endocrinology: Reports systems reviewed and no addt'l complaints, except as documented Hematologic/Lymphatic Hematologic/Lymphatic: Reports systems reviewed and no addt'l complaints, exceptas documented Allergic/Immunologic Allergic/Immunologic: Reports systems reviewed and no addt'l complaints, except as documented Intake Vital Signs 07/06/24 14:24 11/08/24 09:35 12/10/24 08:01 01/10/25 13:37 Height 5 ft 4 in 5 ft 4 in 5 ft 4 in 5 ft 4 in Weight: 92.675 kg BMI 35.0 BP 127/84 H Blood Pressure Location Lt brachial Position Sitting Respiration 16 Pulse 64 Pulse Source Monitor Temp 98.5 F Temperature Source Temporal Artery Pulse Oximetry (%) 98 Oxygen Delivery Method room air Intake Is patient in pain?: No Allergies NSAIDS (Non-Steroidal Anti-Inflamma Allergy (Verified 01/10/25 13:51) unknown Penicillins Allergy (Verified 01/10/25 13:51) Rash sulfamethoxazole (From Bactrim) Allergy (Verified 01/10/25 13:51) rash trimethoprim (From Bactrim) Allergy (Verified 01/10/25 13:51) rash Medications ?Medication ?Instructions ?Recorded ?Confirmed ?Type calcium carbonate (Calcium 600) 600 mg PO DAILY 01/10/25 History cholecalciferol (vitamin D3) 10 10 mcg PO DAILY 01/10/25 History mcg (400 unit) capsule cyanocobalamin (vitamin B-12) 50 50 mcg PO DAILY 09/2501/10/25 History mcg tablet (Vitamin B-12) magnesium 200 mg tablet 200 mg PO DAILY 09/25/20 History potassium 99 mg PO DAILY 12/15/2012/21 History sumatriptan succinate 50 mg tablet See Rx Instructions PO .COMPLEX 07/24/21 01/10/25 Rx (Imitrex) #14 tabs linaclotide 290 mcg capsule 290 mcg PO DAILY PRN PRN D iarrhea 09/05/22 01/10/25 Rx (Linzess) #90 caps cyclobenzaprine 10 mg tablet See Rx Instructions .Rout e 01/29/23 01/10/25 Rx .COMPLEX #60 tabs ferrous sulfate 325 mg (65 mg 325 mg PO DAILY 04/01/23 01/10/25 History iron) tablet fexofenadine 180 mg tablet 180 mg PO DAILY 04/18/23 History (Aller-Fex) hydroxyzine HCl 25 mg tablet 25 mg PO PRN PRN itching 04/18/23 01/10/25 History buspirone 5 mg tablet 10 mg PO TID 09/12/23 History ursodiol 250 mg tablet 250 mg PO BID #60 tabs 09/1101/10/25 Rx semaglutide 1 mg/dose (4 mg/3 mL) 1 mg subcut MOFR 02/1101/10/25 History subcutaneous pen injector pantoprazole 40 mg tablet,delayed 40 mg PO BID #120 TA BLETS 03/17/24 01/10/25 Rx release sucralfate 1 gram tablet 1 g PO TIDAC 30 days #90 tab s 03/17/24 01/10/25 Rx amlodipine 5 mg tablet 10 mg PO QHS 07/06/24 History duloxetine 20 mg capsule,delayed 20 mg PO BID Fibromya lgia 09/09/24 01/10/25 History release (Cymbalta) vitamin E (dl, acetate) 450 mg 450 mg PO QDAY 09/09/24 01/10/25 History (1,000 unit) capsule cariprazine 1.5 mg capsule 1.5 mg PO DAILY 10/29/24 History (Vraylar) lorazepam 0.5 mg tablet (Ativan) 0.5 mg PO Q12H PRN sl eep 10/29/24 01/10/25 History trazodone 50 mg tablet 75 mg PO QHS 01/10/25 History Exam Physical Exam Const alert, oriented x3 and no apparent distress HEENT normocephalic, external ears normal and external nose normal Eyes PERRL, EOMs intact bilaterally, conjunctivae normal and no scleral icterus Neck supple Lymph Lymphatic: no lymphadenopathy noted Resp normal respiratory effort and clear to auscultation bilaterally Cardio regular rate, regular rhythm, S1 normal heart sound and S2 normal heart sound GI normal to inspection, nondistended, normoactive bowel sounds Back/Spine no CVA tenderness and thoracic and lumbar spine normal to inspection Extremity no clubbing, cyanosis or edema Skin no rashes or lesions noted Neuro oriented x3, CN's II-XII intact bilaterally and moves all extremities Psych mental status grossly normal Coding Level of Care Code Off vis,est,level 4 Exam Problem Focused Diagnoses MGUS (monoclonal gammopathy of unknown significance) D47.2 Assessment and Plan Assessment and Plan (1) MGUS (monoclonal gammopathy of unknown significance): Status: Chronic Comment: M-spike 0.4 IgG Lambda light chain on 12/23/2023. Skeletal survey is normal on 04/03/2023. Comes for follow up. M-spike 0.4 on 01/03/2025. Clinically stable. Plan: To continue observation. Monitor M-spike. RTC 6 months. Plan Details Follow Up: 6 Months 01/10/25 1412 <Electronically signed by Stephane Bailey> Date _ Stephane Saeedign Signature: Date (if applicable) CC: ASSISTANT ASSOCIATE PROFESSOR-C Giancarlo Posadas ~ [facility] Work Phone: Reason for referral (narrative)No reason for referral information availableW[facility] Work Phone: Summary Purpose Family History No [...] FoundDocuments on File Type Date Recorded Patient Microwave Radio Technician Expl anation Advance Directives and Living Will Power of Truck Hop Latest Code Status on File Code Status [...] Documents on File Type Date Recorded Patient Microwave Radio Technician Expl anation ACP-Advance Directive ACP-Power of Truck Hop Advance Directive Response Recorded Date/ Time Advance Directives No September 25 3:20pm Living Will No April 03 11:48am Power of Truck Hop No April 03, 2021 11:48am Advance Directive Response Recorded Date/ Time Advance Directives No September 25 2:20pm Living Will No March 20 10:44am Power of Truck Hop No March 20, 2022 10:44am Advance Directive Response Recorded Date/ Time Advance Directives No September 25 3:20pm Living Will No March 20 11:44am Power of Truck Hop No March 20, 2022 11:44am Advance Directive Response Recorded Date/ Time Advance Directives No September 25 3:20pm Living Will No October 29, 2022 5:26am Power of Truck Hop No October 29 5:26am Advance Directive Response Recorded Date/ Time Advance Directives No September 25 3:20pm Living Will No October 29, 2022 12:47pm Power of Truck Hop No October 29 3 12:47pm Advance Directive Response Recorded Date/ Time Advance Directives No September 25 2:20pm Living Will No October 29, 2022 11:47am Power of Truck Hop No October 29 3 11:47am Advance Directive Response Recorded Date/ Time Advance Directives No September 25 2:20pm Living Will No April 22 4 9:59am Power of Truck Hop No April 22 024 9:59am Advance Directive Response Recorded Date/ Time Advance Directives No September 25 3:20pm Living Will No April 22 4 10:59am Power of Truck Hop No April 22 024 10:59am Advance Directive Response Recorded Date/ Time Living Will No May 18 12:20pm Do you have a Healthcare Power of Truck Hop? No May 18, 2024 12:20pm Living Will No July 22, 2024 9:40am Do you have a Healthcare Power of Truck Hop? No July 22, 2024 9:40am Advance Directives No September 25 3:20pm Advance Directive Response Recorded Date/ Time Living Will No July 22, 2024 9:40am Do you have a Healthcare Power of Truck Hop? No July 22, 2024 9:40am Advance Directives No September 25 3:20pm Advance Directive Response Recorded Date/ Time Do you have a Healthcare Power of Truck Hop? No October 29, 2024 1:14pm Living Will No July 22, 2024 9:40am Do you have a Healthcare Power of Truck Hop? No July 22, 2024 9:40am Advance Directives No September 25 3:20pm Advance Directive Response Recorded Date/ Time Do you have a Healthcare Power of Truck Hop? No October 29, 2024 1:14pm Advance Directives No September 25 3:20pm Advance Directive Response Recorded Date/ Time Do you have a Healthcare Power of Truck Hop? No October 29, 2024 1:14pm Living Will No April 22 10:59am Do you have a Healthcare Power of Truck Hop? No April 22, 2023 10:59am Advance Directives No September 25 3:20pm Discharge Instructions * Instructions* Sofy Berman RD, LD - 12/28/2018 [facility] - Surgery [facility] Physicians Surgery Patient Name: Catherine Bui Date: @TODAY@ DISCHARGE INSTRUCTIONS Thank you very much for allowing me to participate in your care, it is truly a privilege. Below please see discharge orders that will help you during your recovery. Please do not hesitate to call theoffice during the day at [phone] for any questions. After hours, the same number will allow you to reach the on-call surgeon. Please remove the Steri-Strips 5 days after surgery. You may be instructed by nursing staff to either leave them on until you see Dr. Zografakis or they will fall off on their [...] and get well soon! [facility] HEALTH SAFETY INSTRUCTOR DISCHARGE INSTRUCTIONS The following information was reviewed with the patient, the patient was given a hard copy of theseinstructions by the Bariatric outside b2b sales, and the instructions were signed by the [...] infected (swelling, redness, drainage, pain) please notify rig manager. 4. Take your temperature twice a [...] drainage in the grenade. The color will exchange operator time. Normal color changes include Red ? [place] ? [place]/Yellow ? [place] and will always be clear [...] directed by your surgeon and your nurse clinical case manager. Make an appointment with your [...] Please call the Bariatric Care Center at [phone] if you have any questions or concerns during business hours: Mon.-Fri. 8:00 a.m. - 4:30 p.m. The answering service may be called during non-business hours at [phone] 23. If you have a medical emergency, [...] office visits with your surgeon at the [facility] are located in the discharge folder. [facility] DIETITIAN DISCHARGE INSTRUCTIONS The following information was [...] diet(s), please contact the Bariatric Dietitians at [phone]. MYRA [address] RD, LD [facility] DISCHARGE INSTRUCTIONS The following information was reviewed [...] Everywhere. * Gastric Bypass: Laparoscopic Milvia-en-Y: Pre-op (Luxembourgish) documented in this encounter History of Present Illness * Katarina Cheek RN - 12/29/2018 2:42 PM EDT Bariatric outside b2b sales Note POD #1 - PM Patient s/p [...] RN - 12/29/2018 9:15 AM EDT Bariatric outside b2b sales Note - POD #1 - AM Patient [...] to LLQ lap incision * Luciano De Souza, [facility] - 12/29/2018 8:54 AM EDT Patient Evaluation [...] Castro MD - 12/29/2018 7:31 AM EDT [facility] - Surgery [facility] Patient Name: Catherine Bui Date: 12/29/2018 [facility]-General Surgery/Bariatric Progress Note Subjective: The patient is [...] day, Alen Rodriguez MD, 10 mL at 12/28/18 195 sodium chloride flush 0.9 % injection 10 [...] BID, Alen Rodriguez MD, 20 mg at 12/28/18 195 albuterol (PROVENTIL) nebulizer solution 2.5 mg, 2.5 [...] Romero MD - 12/29/2018 2:13 PM EDT [facility] - Surgery B[facility] Care Center Patient [...] service as well as the bariatric nurse clinical case manager. * Kandi Koroma RN - [...] Called sds and gave room number to medical unit secretary. To send family to room to [...] 2 diabetes mellitus with complication, unspecified whether long term care phlebotomist insulin use (HCC) Gastroesophageal reflux disease, esophagitis presence not specified Diagnosis PETER on CPAP Obstructive sleep apnea (adult) (pediatric) Hypertension, unspecified type Screening for diabetes mellitus Prediabetes Other abnormal glucose Hospital Course Note Physician Discharge Summary Patient ID: Catherine Bui [id number] y.o. 1975 Admit date: 12/28/2018 Discharge [...] not included)... Note OPERATIVE NOTE DATE OF [facility]: 12/28/2018 SURGEON: John Romero SENIOR NETWORK SYSTEMS ENGINEER: Alen Sapp MD PREOPERATIVE DIAGNOSIS: ? PETER [...] Procedure Findings Note OPERATIVE NOTE DATE OF [facility]O: 12/28/2018 SURGEON: John Romero SENIOR NETWORK SYSTEMS ENGINEER: Alen Sapp MD PREOPERATIVE DIAGNOSIS: ? PETER [...] BLEED GI BLEED GI BLEED E ORDER [facility] ER FOLLOW UP Reason for Visit [...] BLEED GI BLEED GI BLEED E ORDER [facility] ER FOLLOW UP EMPLOYEE HEALTH Preventative Reason for Visit Anemia Chipped tooth History [...] BLEED GI BLEED GI BLEED E ORDER [facility] ER FOLLOW UP EMPLOYEE HEALTH Preventative Reason for Visit Anemia Chipped tooth History of gastric bypass Bright red blood per rectum Elevated blood sugar Hematemesis Laceration of lower lip Syncope Anemia GI bleed History of gastric bypass Hematemesis Syncope Colon cancer screening Preventative health care Chief Complaint E ORDER [facility] ER FOLLOW UP EMPLOYEE HEALTH Preventative E ORDERS Reason for Visit Anemia GI bleed History of gastric bypass Hematemesis Syncope Colon cancer screening Preventative health care Chief Complaint EMPLOYEE HEALTH Preventative E ORDERS THYROID NODULE HEMATURIA REVIEW THYROID U/S FINE NEEDLE ASPIRATION OF R THYROID Reason for Visit [facility] care Dysphagia Vocal cord paralysis, [...] s ignificance) July 06, 2024 1:59pm Constipation September 09, 2024 1:47p m GERD (gastroesophageal reflux disease) M ay 2024 1:47pm GI bleed September 09, 2024 1:47p m Fatty liver September 09, 2024 1:47p m Chief Complaint Admit Date 6 MO, LABS PRIOR July 06, 2024 1:5 9pm Pain August 12, 2024 1:2 9pm NODULE August 26, 2024 10:07a m 6 M FU September 09, 2024 1:47p m LABS September 15, 2024 6:08a m FATTY LIVER September 27, 2024 7:19a m Chief Complaint Admit Date 6 MO, LABS PRIOR July 06, 2024 1:5 9pm Pain August 12, 2024 1:2 9pm NODULE August 26, 2024 10:07a m 6 M FU September 09, 2024 1:47p m LABS September 15, 2024 6:08a m FATTY LIVER September 27, 2024 7:19a m UNSPECIFIED LUMP IN RT BREAST October 20, 2024 8:52am Chief Complaint Admit Date Pain August 12, 2024 1:2 9pm NODULE August 26, 2024 10:07a m 6 M FU September 09, 2024 1:47p m LABS September 15, 2024 6:08a m FATTY LIVER September 27, 2024 7:19a m UNSPECIFIED LUMP IN RT BREAST October 20, 2024 8:52am Block, Transforaminal, RIGHT TRANSFORAMI NAL EPIDUR November 08, 2024 9:08am Reason for Visit Admit Date Constipation September 09, 2024 1:47p m GERD (gastroesophageal reflux disease) M ay 2024 1:47pm GI bleed September 09, 2024 1:47p m Fatty liver September 09, 2024 1:47p m Chief Complaint Admit Date Pain August 12, 2024 1:2 9pm NODULE August 26, 2024 10:07a m 6 M FU September 09, 2024 1:47p m LABS September 15, 2024 6:08a m FATTY LIVER September 27, 2024 7:19a m UNSPECIFIED LUMP IN RT BREAST October 20, 2024 8:52am Block, Transforaminal, RIGHT TRANSFORAMI NAL EPIDUR November 08, 2024 9:08am hematuria, unspecified December 07, 2024 12:00pm 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) *HOSPITAL EMPLOYEE November 202024 7:47am Chief Complaint Admit Date NODULE August 26, 2024 10:07a m 6 M FU September 09, 2024 1:47p m LABS September 15, 2024 6:08a m FATTY LIVER September 27, 2024 7:19a m UNSPECIFIED LUMP IN RT BREAST October 20, 2024 8:52am Block, Transforaminal, RIGHT TRANSFORAMI NAL EPIDUR November 08, 2024 9:08am hematuria, unspecified December 07, 2024 12:00pm 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) *HOSPITAL EMPLOYEE November 202024 7:47am Chief Complaint Admit Date FATTY LIVER September 27, 2024 7:19a m UNSPECIFIED LUMP IN RT BREAST October 20, 2024 8:52am Block, Transforaminal, RIGHT TRANSFORAMI NAL EPIDUR November 08, 2024 9:08am hematuria, unspecified December 07, 2024 12:00pm 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) *HOSPITAL EMPLOYEE November 202024 7:47am 6 MO, LABS PRIOR January 03, 2025 9:02am FAMILY HX ISCHEMIC HEART DISEASE [facility] 2024 1:45pm FAMILY HX ISCHEMIC HEART DISEASE [facility] 2024 3:34pm 6 MO, LABS PRIOR January 10, 2025 1:18pm Reason for Visit Admit Date Annual physical exam December 10, 2024 7 :47am Painful urination December 10, 2024 7: 47am MGUS (monoclonal gammopathy of unknown s ignificance) January 10, 2025 1:18pm Reason for Referral Specialty Diagnoses / Procedures Referred By Minoo whitehead Referred To Contact Diagnoses Uninodular goiter (nontoxic) Procedures CONSULT TO ENDOCRINE SURGERY OFFICE/OUTPATIENT [facility] 60-[place] [id number] [place] [address] Referral ID Status Reason Start Date Expiration Date Visits Requested Visits Authorized [id number] Authorized PCP Requested Referral 2 02/08/2023 1 1 Specialty Diagnoses / Procedures Referred By Minoo whitehead Referred To Contact Gastroenterology Diagnoses Dysphagia, unspecified type Procedures CONSULT TO GASTROENTEROLOGY OFFICE/OUTPATIENT [facility] 60-74 MINUTES [place] [id number] [place] [id number] Referral ID Status Reason Start Date Expiration Date Visits Requested Visits Authorized [id number] Authorized PCP Requested Referral 2 02/08/2023 1 1 Additional Source Comments INFORMATION SOURCE (unrecogn ized section and content) DATE CREATED AUTHOR 07/26/2018 [facility] DATE CREATED AUTHOR AUTHOR'S ORGANIZ ATION 07/27/2018 [facility] DATE CREATED AUTHOR AUTHOR'S ORGANIZ ATION 01/08/[address] [facility] DATE CREATED AUTHOR AUTHOR'S ORGANIZ ATION 01/25/2019 [facility] DATE CREATED AUTHOR AUTHOR'S ORGANIZ ATION 01/25/2019 Palomo Borges [facility] DATE CREATED AUTHOR AUTHOR'S ORGANIZ ATION 12/17/2019 [facility] DATE CREATED AUTHOR AUTHOR'S ORGANIZ ATION 03/17/2022 [facility] DATE CREATED AUTHOR AUTHOR'S ORGANIZ ATION 01/23/2025 [facility] Goals (unrecognized section and content) Goals may [...] or prosecute any alcohol or drug abuse patient.[facility] the event this information is protected by the Federal Confidentiality of Alcohol and Drug Abuse Patient Records regulations: The Federal rules restrict any use of the information to criminally investigate or prosecute any alcohol or drug abuse patient.[facility] the event this information is protected by the Federal Confidentiality of Alcohol and Drug Abuse Patient Records regulations: The Federal rules restrict any use of the information to criminally investigate or prosecute any alcohol or drug abuse patient.[facility] the event this information is protected by the Federal Confidentiality of Alcohol and Drug Abuse Patient Records regulations: The Federal rules restrict any use of the information to criminally investigate or prosecute any alcohol or drug abuse patient.[facility] the event this information is protected by the Federal Confidentiality of Alcohol and Drug Abuse Patient Records regulations: The Federal rules restrict any use of the information to criminally investigate or prosecute any alcohol or drug abuse patient.[facility] the event this information is protected by the Federal Confidentiality of Alcohol and Drug Abuse Patient Records regulations: The Federal rules restrict any use of the information to criminally investigate or prosecute any alcohol or drug abuse patient.[facility] the event this information is protected by the Federal Confidentiality of Alcohol and Drug Abuse Patient Records regulations: The Federal rules restrict any use of the information to criminally investigate or prosecute any alcohol or drug abuse patient.[facility] the event this information is protected by the Federal Confidentiality of Alcohol and Drug Abuse Patient Records regulations: The Federal rules restrict any use of the information to criminally investigate or prosecute any alcohol or drug abuse patient.[facility] Reason for Visit (unrecogniz ed section and content) Reason Comments Appointment Called patient and l eft msg to call [phone] to schedule consultation with Dr. Kristofer rainey per Dr. Saeed also let patient know can schedule appointment herself on mychart Reason Comments Thyroid Nodule Reason Comments Consult F[facility] SHEET Reason Comments Outside Labs Results Reason Comments Thyroid Problem Specialty Diagnoses / Procedures Referred By Minoo t Referred To Contact Diagnoses Uninodular goiter (nontoxic) Procedures CONSULT TO ENDOCRINE SURGERY OFFICE/OUTPATIENT [facility] 60-[place] [id number] [place] [address] Referral ID Status Reason Start Date Expiration Date V isits Requested Visits Authorized [id number] Closed PCP Requested Referral 02/08/2022 02/08/2023 1 1 Care Teams (unrecognized sec tion and content) Nursing Center Tutor Relationship Specialty Start Date End Date Luciano Nails MD PCP - General Family Practice 03/03/14 Nursing Center Tutor Relationship Specialty Start Date End Date Luciano Nails MD PCP - General Family Medicine 03/03/14 Nursing Center Tutor Relationship Specialty Start Date End Date Luciano Nails MD PCP - General Family Medicine 03/03/14 Nursing Center Tutor Relationship Specialty Start Date End Date Luciano Nails MD PCP - General Family Medicine 03/03/14 Nursing Center Tutor Relationship Specialty Start Date End Date Luciano Nails MD PCP - General Family Medicine 03/03/14 Nursing Center Tutor Relationship Specialty Start Date End Date Luciano Nails MD PCP - General Family Medicine 03/03/14 Nursing Center Tutor Relationship Specialty Start Date End Date Luciano Nails MD PCP - General Family Medicine 03/03/14 Team Status: Active Member Role Status Dates Dr. Luciano Nails MD Family Provider Active Dr. Hermelinda Castillo MD Primary Care Provider Active Team Status: Inactive Member Role Status Dates Dr. Hermelinda Castillo MD Primary Care Provider, Refer ring Provider Active Giancarlo Posadas ASSISTANT ASSOCIATE PROFESSOR, ASSISTANT ASSOCIATE PROFESSOR-C Attending Provider Active Team Status: Inactive Member [...] MD Primary Care Provider Active Giancarlo Posadas ASSISTANT ASSOCIATE PROFESSOR, ASSISTANT ASSOCIATE PROFESSOR-C Attending Provider Active Team Status: Inactive Member [...] Dr. Luciano Nails MD Family Provider Active [facility] Primary Care Provider A ctive Team Status: Inactive Member Role Status Dates Dr. Hermelinda Castillo MD Referring Provider Active Dr. Jose Suresh MD Attending Provider Active [facility] Primary Care Provider A ctive Team Status: Inactive Member Role Status Dates Dr. Jose Suresh MD Attending Provider, Referring P rovider Active Giancarlo Posadas VSC, ASSISTANT ASSOCIATE PROFESSOR-C Primary Care Provider Active Team Status: Inactive Member Role Status Dates Giancarlo Posadas VSC, ASSISTANT ASSOCIATE PROFESSOR-C Primary Care Provid er, Attending Provider, Referring Provider Active Team Status: Active Member Role Status Dates [facility] Primary Care Provider A ctive Dr. Jose Suresh MD Attending Provider, Referring P rovider Active Team Status: Active Member Role Status Dates Dr. Luciano Nails MD Family Provider Active Giancarlo Posadas ASSISTANT ASSOCIATE PROFESSOR, ASSISTANT ASSOCIATE PROFESSOR-C Primary Care Provider Active Team Status: Inactive Member Role Status Dates Dr. Stephane Melgar MD Attending Provider Active Giancarlo Posadas ASSISTANT ASSOCIATE PROFESSOR, ASSISTANT ASSOCIATE PROFESSOR-C Primary Care Provider, Referring P rovider Active Team Status: Inactive Member Role Status Dates [facility] Primary Care Provider, Referring Provider Active Dr. Ramez Villatoro DO Attending Provider Active Team Status: Inactive Member Role Status Dates [facility] Primary Care Provider A ctive Dr. Jose Suresh MD Attending Provider, Referring P rovider Active Team Status: Inactive Member Role Status Dates Giancarlo Posadas ASSISTANT ASSOCIATE PROFESSOR, ASSISTANT ASSOCIATE PROFESSOR-C Primary Care Provider Active Dr. Stephane Melgar MD Attending Provider, Referring Pro vider Active Team Status: Inactive Member Role Status Dates Giancarlo Posadas ASSISTANT ASSOCIATE PROFESSOR, ASSISTANT ASSOCIATE PROFESSOR-C Primary Care Provider Active Dr. Cesar Lloyd MD Emergency Provider Active Team Status: Active Member Role Status Dates Giancarlo Katharina ASSISTANT ASSOCIATE PROFESSOR, ASSISTANT ASSOCIATE PROFESSOR-C Primary Care Provider, Referring P rovider Active Dr. Ramez Villatoro DO Attending Provider, Other Prov ider Active Team Status: Inactive Member Role Status Dates Giancarlo Posadas ASSISTANT ASSOCIATE PROFESSOR, ASSISTANT ASSOCIATE PROFESSOR-C Primary Care Provider, Referring P rovider Active Dr. Ramez Villatoro DO Attending Provider Active Team Status: Inactive Member Role Status Dates Giancarlo Posadas ASSISTANT ASSOCIATE PROFESSOR, ASSISTANT ASSOCIATE PROFESSOR-C Primary Care Provider Active Dr. Cesar Lloyd MD Attending Provider, Emergency Provider Active Team Status: Inactive Member Role Status Dates Giancarlo Posadas ASSISTANT ASSOCIATE PROFESSOR, ASSISTANT ASSOCIATE PROFESSOR-C Primary Care Provider Active Dr. aRmez Villatoro DO Attending Provider, Referring Provider Active Team Status: Active Member Role Status Dates Dr. Luciano Nails MD Family Provider Active Team Status: Inactive Member Role Status Dates Dr. Stephane Melgar MD Attending Provider Active Team Status: Inactive Member Role Status Dates Dr. Ramez Villatoro DO Attending Provider, Referring Provider Active Team Status: Active Member Role Status Dates Giancarlo Posadas ASSISTANT ASSOCIATE PROFESSOR, ASSISTANT ASSOCIATE PROFESSOR-C Primary Care Provider Active Dr. Stephane Melgar MD Attending Provider, Referring Pro vider Active Team Status: Active Member Role Status Dates Dr. Luciano Nails MD Family Provider Active Giancarlo Posadas VSC, ASSISTANT ASSOCIATE PROFESSOR-C Primary Care Provider Active Team Status: Inactive Member Role Status Dates Dr. Ramez Villatoro DO Attending Provider, Referring Provider Active Giancarlo Posadas VSC, ASSISTANT ASSOCIATE PROFESSOR-C Primary Care Provider Active Team Status: Active Member Role Status Dates Giancarlo Posadas VSC, ASSISTANT ASSOCIATE PROFESSOR-C Primary Care Provid er, Referring Provider, Other Provider Active Dr. Maximiliano Murphy MD Attending Provider Active Team Status: Active Member Role Status Dates Giancarlo Posadas VSC, ASSISTANT ASSOCIATE PROFESSOR-C Primary Care Provider Active Team Status: Inactive Member Role Status Dates Giancarlo Posadas VSC, ASSISTANT ASSOCIATE PROFESSOR-C Primary Care Provider Active Start: April 09, 2024 End: April 09, 2024 Giancarlo Posadas VSC, ASSISTANT ASSOCIATE PROFESSOR-C Referring Provider Active S tart: April 09, 2024 End: April 09, 2024 Dr. Joaquin Boyce MD Attending Provider Active Start: April 09, 2024 End: April 09, 2024 Team Status: Inactive Member Role Status Dates Giancarlo Posadas VSC, ASSISTANT ASSOCIATE PROFESSOR-C Primary Care Provider Active Start: May 19, 2024 End: May 19, 2024 Giancarlo Bobder VSC, ASSISTANT ASSOCIATE PROFESSOR-C Referring Provider Active S tart: May 19, 2024 End: May 19, 2024 Dr. Ramez Villatoro DO Attending Provider Active Start: May 19, 2024 End: May 19, 2024 Team Status: Active Member Role Status Dates Giancarlo Bobder VSC, ASSISTANT ASSOCIATE PROFESSOR-C Primary Care Provider Active Start: May 19, 2024 Giancarlo Katharina VSC, ASSISTANT ASSOCIATE PROFESSOR-C Referring Provider Active S tart: May 19, 2024 Dr. Ramez Villatoro DO Attending Provider Active Start: May 19, 2024 Dr. Ramez Villatoro DO Other Provider Active St art: May 19, 2024 Team Status: Inactive Member Role Status Dates Giancarlo Posadas VSC, ASSISTANT ASSOCIATE PROFESSOR-C Primary Care Provider Active Start: June 09, 2024 End: June 09, 2024 Giancarlo Posadas VSC, ASSISTANT ASSOCIATE PROFESSOR-C Attending Provider Active S tart: June 09, 2024 End: June 09, 2024 Team Status: Inactive Member Role Status Dates Giancarlo Posadas VSC, ASSISTANT ASSOCIATE PROFESSOR-C Primary Care Provider Active Start: July 06, 2024 End: July 06, 2024 Giancarlo Posadas VSC, ASSISTANT ASSOCIATE PROFESSOR-C Referring Provider Active S tart: July 06, 2024 End: July 06, 2024 Dr. Stephane Melgar MD Attending Provider Active S tart: July 06, 2024 End: July 06, 2024 Team Status: Inactive Member Role Status Dates Giancarlo Posadas VSC, ASSISTANT ASSOCIATE PROFESSOR-C Primary Care Provider Active Start: July 26, 2024 End: July 26, 2024 Dr. Primitivo Lockhart MD Attending Provider Active Start: July 26, 2024 End: July 26, 2024 Dr. Primitivo Lockhart MD Referring Provider Active Start: July 26, 2024 End: July 26, 2024 Team Status: Inactive Member Role Status Dates Giancarlo ROSA, ASSISTANT ASSOCIATE PROFESSOR-C Primary Care Provider Active Start: August 12, 2024 End: August 12, 2024 NP. Catherine Messer Attending Provider Active Star t: August 12, 2024 End: August 12, 2024 NP. Catherine Messer Referring Provider Active Star t: August 12, 2024 End: August 12, 2024 Team Status: Inactive Member Role Status Dates Giancarlo ROSA, ASSISTANT ASSOCIATE PROFESSOR-C Primary Care Provider Active Start: August 26, 2024 End: August 26, 2024 Dr. Jose uSresh MD Attending Provider Active Start: August 26, 2024 End: August 26, 2024 Dr. Jose Suresh MD Referring Provider Active Start: August 26, 2024 End: August 26, 2024 Team Status: Inactive Member Role Status Dates Giancarlo ROSA, ASSISTANT ASSOCIATE PROFESSOR-C Primary Care Provider Active Start: September 09, 2024 End: September 09, 2024 Giancarlo ROSA, ASSISTANT ASSOCIATE PROFESSOR-C Referring Provider Active S tart: September 09, 2024 End: September 09, 2024 CRISTY Julio Attending Provider Active Start: September 09, 2024 End: September 09, 2024 Team Status: Inactive Member Role Status Dates Giancarlo ROSA, ASSISTANT ASSOCIATE PROFESSOR-C Primary Care Provider Active Start: September 15, 2024 End: September 15, 2024 Adriana Irene ASSISTANT ASSOCIATE PROFESSOR-C Attending Provider Active Start: September 15, 2024 End: September 15, 2024 Adriana Irene NP-C Referring Provider Active Start: September 15, 2024 End: September 15, 2024 Team Status: Inactive Member Role Status Dates Giancarlo ROSA, ASSISTANT ASSOCIATE PROFESSOR-C Primary Care Provider Active Start: September 27, 2024 End: September 27, 2024 CRISTY Julio Attending Provider Active Start: September 27, 2024 End: September 27, 2024 CRISTY Julio Referring Provider Active Start: September 27, 2024 End: September 27, 2024 Adriana Irene NP-C Other Provider Active Star t: September 27, 2024 End: September 27, 2024 Team Status: Active Member Role/Relationship Status Dates Giancarlo Posadas VSC, ASSISTANT ASSOCIATE PROFESSOR-C Primary Care Provider Active Team Status: Inactive Member Role/Relationship Status Dates Giancarlo Bobder VSC, ASSISTANT ASSOCIATE PROFESSOR-C Primary Care Provider Active Start: July 06, 2024 End: July 06, 2024 Giancarlo Bobder VSC, ASSISTANT ASSOCIATE PROFESSOR-C Referring Provider Active S tart: July 06, 2024 End: July 06, 2024 Dr. Stephane Melgar MD Attending Provider Active S tart: July 06, 2024 End: July 06, 2024 Team Status: Inactive Member Role/Relationship Status Dates Giancarlo Posadas VSC, ASSISTANT ASSOCIATE PROFESSOR-C Primary Care Provider Active Start: July 26, 2024 End: July 26, 2024 Dr. Primitivo Lockhart MD Attending Provider Active Start: July 26, 2024 End: July 26, 2024 Dr. Primitivo Lockhart MD Referring Provider Active Start: July 26, 2024 End: July 26, 2024 Team Status: Inactive Member Role/Relationship Status Dates Giancarlo Posadas VSC, ASSISTANT ASSOCIATE PROFESSOR-C Primary Care Provider Active Start: August 12, 2024 End: August 12, 2024 NP. Catherine Messer Attending Provider Active Star t: August 12, 2024 End: August 12, 2024 NP. Catherine Messer Referring Provider Active Star t: August 12, 2024 End: August 12, 2024 Team Status: Inactive Member Role/Relationship Status Dates Giancarlo Posadas VSC, ASSISTANT ASSOCIATE PROFESSOR-C Primary Care Provider Active Start: August 26, 2024 End: August 26, 2024 Dr. Jose Suresh MD Attending Provider Active Start: August 26, 2024 End: August 26, 2024 Dr. Jose Suresh MD Referring Provider Active Start: August 26, 2024 End: August 26, 2024 Team Status: Inactive Member Role/Relationship Status Dates Giancarlo Posadas VSC, ASSISTANT ASSOCIATE PROFESSOR-C Primary Care Provider Active Start: September 09, 2024 End: September 09, 2024 Giancarlo Bobder VSC, ASSISTANT ASSOCIATE PROFESSOR-C Referring Provider Active S tart: September 09, 2024 End: September 09, 2024 CRISTY Julio Attending Provider Active Start: September 09, 2024 End: September 09, 2024 Team Status: Inactive Member Role/Relationship Status Dates Giancarlo Posadas VSC, ASSISTANT ASSOCIATE PROFESSOR-C Primary Care Provider Active Start: September 15, 2024 End: September 15, 2024 Adriana Irene ASSISTANT ASSOCIATE PROFESSOR-C Attending Provider Active Start: September 15, 2024 End: September 15, 2024 Adriana Irene ASSISTANT ASSOCIATE PROFESSOR-C Referring Provider Active Start: September 15, 2024 End: September 15, 2024 Team Status: Inactive Member Role/Relationship Status Dates Giancarlo Posadas VSSuly, ASSISTANT ASSOCIATE PROFESSOR-C Primary Care Provider Active Start: September 27, 2024 End: September 27, 2024 CRISTY Julio Attending Provider Active Start: September 27, 2024 End: September 27, 2024 CRISTY Julio Referring Provider Active Start: September 27, 2024 End: September 27, 2024 Adriana Irene ASSISTANT ASSOCIATE PROFESSOR-C Other Provider Active Star t: September 27, 2024 End: September 27, 2024 Team Status: Inactive Member Role/Relationship Status Dates Giancarlo ROSA, ASSISTANT ASSOCIATE PROFESSOR-C Primary Care Provider Active Start: October 20, 2024 End: October 20, 2024 Adriana Irene ASSISTANT ASSOCIATE PROFESSOR-C Attending Provider Active Start: October 20, 2024 End: October 20, 2024 Adriana Irene ASSISTANT ASSOCIATE PROFESSOR-C Referring Provider Active Start: October 20, 2024 End: October 20, 2024 Team Status: Inactive Member Role/Relationship Status Dates Giancarlo ROSA, ASSISTANT ASSOCIATE PROFESSOR-C Primary Care Provider Active Start: July 26, 2024 End: July 26, 2024 Dr. Primitivo Lockhart MD Attending Provider Active Start: July 26, 2024 End: July 26, 2024 Dr. Primitivo Lockhart MD Referring Provider Active Start: July 26, 2024 End: July 26, 2024 Team Status: Inactive Member Role/Relationship Status Dates Giancarlo ROSA, ASSISTANT ASSOCIATE PROFESSOR-C Primary Care Provider Active Start: August 12, 2024 End: August 12, 2024 NP. Catherine Messer Attending Provider Active Star t: August 12, 2024 End: August 12, 2024 NP. Catherine Messer Referring Provider Active Star t: August 12, 2024 End: August 12, 2024 Team Status: Inactive Member Role/Relationship Status Dates Giancarlo Posadas VSSuly, ASSISTANT ASSOCIATE PROFESSOR-C Primary Care Provider Active Start: August 26, 2024 End: August 26, 2024 Dr. Jose Suresh MD Attending Provider Active Start: August 26, 2024 End: August 26, 2024 Dr. Jose Suresh MD Referring Provider Active Start: August 26, 2024 End: August 26, 2024 Team Status: Inactive Member Role/Relationship Status Dates Giancarlo Posadas VSC, ASSISTANT ASSOCIATE PROFESSOR-C Primary Care Provider Active Start: September 09, 2024 End: September 09, 2024 Giancarlo Katharina VSC, ASSISTANT ASSOCIATE PROFESSOR-C Referring Provider Active S tart: September 09, 2024 End: September 09, 2024 CRISTY Julio Attending Provider Active Start: September 09, 2024 End: September 09, 2024 Team Status: Inactive Member Role/Relationship Status Dates Giancarlo Posadas VSC, ASSISTANT ASSOCIATE PROFESSOR-C Primary Care Provider Active Start: September 15, 2024 End: September 15, 2024 Adriana Irene ASSISTANT ASSOCIATE PROFESSOR-C Attending Provider Active Start: September 15, 2024 End: September 15, 2024 Adriana Irene , ASSISTANT ASSOCIATE PROFESSOR-C Referring Provider Active Start: September 15, 2024 End: September 15, 2024 Team Status: Inactive Member Role/Relationship Status Dates Giancarlo Posadas VSC, ASSISTANT ASSOCIATE PROFESSOR-C Primary Care Provider Active Start: September 27, 2024 End: September 27, 2024 CRISTY Julio Attending Provider Active Start: September 27, 2024 End: September 27, 2024 CRISTY Julio Referring Provider Active Start: September 27, 2024 End: September 27, 2024 Adriana Irene , ASSISTANT ASSOCIATE PROFESSOR-C Other Provider Active Star t: September 27, 2024 End: September 27, 2024 Team Status: Inactive Member Role/Relationship Status Dates Giancarlo Posadas VSC, ASSISTANT ASSOCIATE PROFESSOR-C Primary Care Provider Active Start: October 20, 2024 End: October 20, 2024 Adriana Irene ASSISTANT ASSOCIATE PROFESSOR-C Attending Provider Active Start: October 20, 2024 End: October 20, 2024 Adriana Irene , ASSISTANT ASSOCIATE PROFESSOR-C Referring Provider Active Start: October 20, 2024 End: October 20, 2024 Team Status: Inactive Member Role/Relationship Status Dates Giancarlo Posadas VSC, ASSISTANT ASSOCIATE PROFESSOR-C Primary Care Provider Active Start: November 08, 2024 End: November 08, 2024 Dr. Primitivo Lockhart MD Attending Provider Active Start: November 08, 2024 End: November 08, 2024 Dr. Primitivo Lockhart MD Referring Provider Active Start: November 08, 2024 End: November 08, 2024 Team Status: Inactive Member Role/Relationship Status Dates Giancarlo ROSA, ASSISTANT ASSOCIATE PROFESSOR-C Primary Care Provider Active Start: August 12, 2024 End: August 12, 2024 NP. Catherine Messer Attending Provider Active Star t: August 12, 2024 End: August 12, 2024 NP. Catherine Messer Referring Provider Active Star t: August 12, 2024 End: August 12, 2024 Team Status: Inactive Member Role/Relationship Status Dates Giancarlo LIUC, ASSISTANT ASSOCIATE PROFESSOR-C Primary Care Provider Active Start: August 26, 2024 End: August 26, 2024 Dr. Jose Suresh MD Attending Provider Active Start: August 26, 2024 End: August 26, 2024 Dr. Jose Suresh MD Referring Provider Active Start: August 26, 2024 End: August 26, 2024 Team Status: Inactive Member Role/Relationship Status Dates Giancarlo Posadas VSC, ASSISTANT ASSOCIATE PROFESSOR-C Primary Care Provider Active Start: September 09, 2024 End: September 09, 2024 Giancarlo LIUC, ASSISTANT ASSOCIATE PROFESSOR-C Referring Provider Active S tart: September 09, 2024 End: September 09, 2024 CRISTY Julio Attending Provider Active Start: September 09, 2024 End: September 09, 2024 Team Status: Inactive Member Role/Relationship Status Dates Giancarlo Posadas VSC, ASSISTANT ASSOCIATE PROFESSOR-C Primary Care Provider Active Start: September 15, 2024 End: September 15, 2024 Adriana Irene ASSISTANT ASSOCIATE PROFESSOR-C Attending Provider Active Start: September 15, 2024 End: September 15, 2024 Adriana Irene ASSISTANT ASSOCIATE PROFESSOR-C Referring Provider Active Start: September 15, 2024 End: September 15, 2024 Team Status: Inactive Member Role/Relationship Status Dates Giancarlo Posadas VSC, ASSISTANT ASSOCIATE PROFESSOR-C Primary Care Provider Active Start: September 27, 2024 End: September 27, 2024 CRISTY Julio Attending Provider Active Start: September 27, 2024 End: September 27, 2024 CRISTY Julio Referring Provider Active Start: September 27, 2024 End: September 27, 2024 Adriana Irene NP-C Other Provider Active Star t: September 27, 2024 End: September 27, 2024 Team Status: Inactive Member Role/Relationship Status Dates Giancarlo Katharina VSC, ASSISTANT ASSOCIATE PROFESSOR-C Primary Care Provider Active Start: October 20, 2024 End: October 20, 2024 Adriana Montgomeryhof , ASSISTANT ASSOCIATE PROFESSOR-C Attending Provider Active Start: October 20, 2024 End: October 20, 2024 Adriana Montgomeryhoanay , ASSISTANT ASSOCIATE PROFESSOR-C Referring Provider Active Start: October 20, 2024 End: October 20, 2024 Team Status: Inactive Member Role/Relationship Status Dates Giancarlo Katharina VSC, ASSISTANT ASSOCIATE PROFESSOR-C Primary Care Provider Active Start: November 08, 2024 End: November 08, 2024 Dr. Primitivo Lockhart MD Attending Provider Active Start: November 08, 2024 End: November 08, 2024 Dr. Primitivo Lockhart MD Referring Provider Active Start: November 08, 2024 End: November 08, 2024 Team Status: Active Member Role/Relationship Status Dates Giancarlo Katharina VSC, ASSISTANT ASSOCIATE PROFESSOR-C Primary Care Provider Active Start: November 22, 2024 Health Risk Assessment Attending Provider Active Start: November 22, 2024 Health Risk Assessment Referring Provider Active Start: November 22, 2024 Team Status: Inactive Member Role/Relationship Status Dates Giancarlo Katharina VSC, ASSISTANT ASSOCIATE PROFESSOR-C Primary Care Provider Active Start: November 29, 2024 End: November 29, 2024 Marcelo Beam VSC, ASSISTANT ASSOCIATE PROFESSOR-C Attending Provider Active Start: November 29, 2024 End: November 29, 2024 Tayobudeanann Beam VSC, ASSISTANT ASSOCIATE PROFESSOR-C Referring Provider Active Start: November 29, 2024 End: November 29, 2024 Team Status: Active Member Role/Relationship Status Dates Giancarlo Katharina VSC, ASSISTANT ASSOCIATE PROFESSOR-C Primary Care Provider Active Start: December 07, 2024 Adriana Montgomeryhoanay , ASSISTANT ASSOCIATE PROFESSOR-C Attending Provider Active Start: December 07, 2024 Adriana Montgomeryhoanay , ASSISTANT ASSOCIATE PROFESSOR-C Referring Provider Active Start: December 07, 2024 Team Status: Active Member Role/Relationship Status Dates Giancarlo Katharina VSC, ASSISTANT ASSOCIATE PROFESSOR-C Primary Care Provider Active Start: December 08, 2024 Adriana Montgomeryhof , ASSISTANT ASSOCIATE PROFESSOR-C Attending Provider Active Start: December 08, 2024 Adriana Montgomeryhof , ASSISTANT ASSOCIATE PROFESSOR-C Referring Provider Active Start: December 08, 2024 Team Status: Inactive Member Role/Relationship Status Dates Giancarlo Katharina VSC, ASSISTANT ASSOCIATE PROFESSOR-C Primary Care Provider Active Start: December 10, 2024 End: December 10, 2024 Giancarlo ROSA, ASSISTANT ASSOCIATE PROFESSOR-C Referring Provider Active S tart: December 10, 2024 End: December 10, 2024 Chana Bansal CNM Attending Provider Active Start: December 10, 2024 End: December 10, 2024 Team Status: Inactive Member Role/Relationship Status Dates Giancarlo Posadas VSC, ASSISTANT ASSOCIATE PROFESSOR-C Primary Care Provider Active Start: August 26, 2024 End: August 26, 2024 Dr. Jose Suresh MD Attending Provider Active Start: August 26, 2024 End: August 26, 2024 Dr. Jose Suresh MD Referring Provider Active Start: August 26, 2024 End: August 26, 2024 Team Status: Inactive Member Role/Relationship Status Dates Giancarlo LIUC, ASSISTANT ASSOCIATE PROFESSOR-C Primary Care Provider Active Start: September 09, 2024 End: September 09, 2024 Giancarlo ROSA, ASSISTANT ASSOCIATE PROFESSOR-C Referring Provider Active S tart: September 09, 2024 End: September 09, 2024 CRISTY Julio Attending Provider Active Start: September 09, 2024 End: September 09, 2024 Team Status: Inactive Member Role/Relationship Status Dates Giancarlo LIUC, ASSISTANT ASSOCIATE PROFESSOR-C Primary Care Provider Active Start: September 15, 2024 End: September 15, 2024 Adriana Irene ASSISTANT ASSOCIATE PROFESSOR-C Attending Provider Active Start: September 15, 2024 End: September 15, 2024 Adriana Irene ASSISTANT ASSOCIATE PROFESSOR-C Referring Provider Active Start: September 15, 2024 End: September 15, 2024 Team Status: Inactive Member Role/Relationship Status Dates Giancarlo Posadas VSC, ASSISTANT ASSOCIATE PROFESSOR-C Primary Care Provider Active Start: September 27, 2024 End: September 27, 2024 CRISTY Julio Attending Provider Active Start: September 27, 2024 End: September 27, 2024 CRISTY Julio Referring Provider Active Start: September 27, 2024 End: September 27, 2024 Adriana Irene ASSISTANT ASSOCIATE PROFESSOR-C Other Provider Active Star t: September 27, 2024 End: September 27, 2024 Team Status: Inactive Member Role/Relationship Status Dates Giancarlo Posadas VSC, ASSISTANT ASSOCIATE PROFESSOR-C Primary Care Provider Active Start: October 20, 2024 End: October 20, 2024 Adrianaute Montgomeryhof , ASSISTANT ASSOCIATE PROFESSOR-C Attending Provider Active Start: October 20, 2024 End: October 20, 2024 Adrianaute Montgomeryhof , ASSISTANT ASSOCIATE PROFESSOR-C Referring Provider Active Start: October 20, 2024 End: October 20, 2024 Team Status: Inactive Member Role/Relationship Status Dates Giancarlo Posadas VSC, ASSISTANT ASSOCIATE PROFESSOR-C Primary Care Provider Active Start: November 08, 2024 End: November 08, 2024 Dr. Primitivo Lockhart MD Attending Provider Active Start: November 08, 2024 End: November 08, 2024 Dr. Primitivo Lockhart MD Referring Provider Active Start: November 08, 2024 End: November 08, 2024 Team Status: Active Member Role/Relationship Status Dates Giancarlo Posadas VSC, ASSISTANT ASSOCIATE PROFESSOR-C Primary Care Provider Active Start: November 22, 2024 Health Risk Assessment Attending Provider Active Start: November 22, 2024 Health Risk Assessment Referring Provider Active Start: November 22, 2024 Team Status: Inactive Member Role/Relationship Status Dates Giancarlo Posadas VSC, ASSISTANT ASSOCIATE PROFESSOR-C Primary Care Provider Active Start: November 29, 2024 End: November 29, 2024 Tayobudeannan Beam VSC, ASSISTANT ASSOCIATE PROFESSOR-C Attending Provider Active Start: November 29, 2024 End: November 29, 2024 Zebulun Beam VSC, ASSISTANT ASSOCIATE PROFESSOR-C Referring Provider Active Start: November 29, 2024 End: November 29, 2024 Team Status: Inactive Member Role/Relationship Status Dates Giancarlo Katharina VSC, ASSISTANT ASSOCIATE PROFESSOR-C Primary Care Provider Active Start: December 07, 2024 End: December 07, 2024 Adriana Montgomeryhof , ASSISTANT ASSOCIATE PROFESSOR-C Attending Provider Active Start: December 07, 2024 End: December 07, 2024 Adriana Tannhof , ASSISTANT ASSOCIATE PROFESSOR-C Referring Provider Active Start: December 07, 2024 End: December 07, 2024 Team Status: Active Member Role/Relationship Status Dates Giancarlo Posadas VSC, ASSISTANT ASSOCIATE PROFESSOR-C Primary Care Provider Active Start: December 08, 2024 Adriana Montgomeryhof , ASSISTANT ASSOCIATE PROFESSOR-C Attending Provider Active Start: December 08, 2024 Adriana Tannhof , ASSISTANT ASSOCIATE PROFESSOR-C Referring Provider Active Start: December 08, 2024 Team Status: Inactive Member Role/Relationship Status Dates Giancarlo Posadas VSC, ASSISTANT ASSOCIATE PROFESSOR-C Primary Care Provider Active Start: December 10, 2024 End: December 10, 2024 Giancarlo BobVincent, ASSISTANT ASSOCIATE PROFESSOR-C Referring Provider Active S tart: December 10, 2024 End: December 10, 2024 Chana Bansal CNM Attending Provider Active Start: December 10, 2024 End: December 10, 2024 Team Status: Active Member Role/Relationship Status Dates Giancarlo BobLemosC, ASSISTANT ASSOCIATE PROFESSOR-C Primary Care Provider Active Start: December 10, 2024 Chana Bansal CNM Attending Provider Active Start: December 10, 2024 Team Status: Inactive Member Role/Relationship Status Dates Giancarlo Katharina VSC, ASSISTANT ASSOCIATE PROFESSOR-C Primary Care Provider Active Start: December 08, 2024 End: December 08, 2024 Adriana Irene ASSISTANT ASSOCIATE PROFESSOR-C Attending Provider Active Start: December 08, 2024 End: December 08, 2024 Adriana Irene ASSISTANT ASSOCIATE PROFESSOR-C Referring Provider Active Start: December 08, 2024 End: December 08, 2024 Team Status: Inactive Member Role/Relationship Status Dates Giancarlo Katharina ROSA, ASSISTANT ASSOCIATE PROFESSOR-C Primary Care Provider Active Start: December 10, 2024 End: December 10, 2024 Chana Bansal CNM Attending Provider Active Start: December 10, 2024 End: December 10, 2024 Team Status: Active Member Role/Relationship Status Dates Giancarlo LIUC, ASSISTANT ASSOCIATE PROFESSOR-C Primary care physician Active Team Status: Inactive Member Role/Relationship Status Dates Giancarlo Katharina LIUC, ASSISTANT ASSOCIATE PROFESSOR-C Primary care physician Active Start: September 27, 2024 End: September 27, 2024 CRISTY Julio Attending physician Active Start: September 27, 2024 End: September 27, 2024 CRISTY Julio Referring Provider Active Start: September 27, 2024 End: September 27, 2024 Adriana Irene ASSISTANT ASSOCIATE PROFESSOR-C Nurse Practitioner Active Start: September 27, 2024 End: September 27, 2024 Team Status: Inactive Member Role/Relationship Status Dates Giancarlo LIUC, ASSISTANT ASSOCIATE PROFESSOR-C Primary care physician Active Start: October 20, 2024 End: October 20, 2024 Adriana Irene ASSISTANT ASSOCIATE PROFESSOR-C Attending physician Active Start: October 20, 2024 End: October 20, 2024 Adriana Irene ASSISTANT ASSOCIATE PROFESSOR-C Referring Provider Active Start: October 20, 2024 End: October 20, 2024 Team Status: Inactive Member Role/Relationship Status Dates Giancarlo LIUC, ASSISTANT ASSOCIATE PROFESSOR-C Primary care physician Active Start: November 08, 2024 End: November 08, 2024 Dr. Primitivo Lockhart MD Attending physician Active Start: November 08, 2024 End: November 08, 2024 Dr. Primitivo Lockhart MD Referring Provider Active Start: November 08, 2024 End: November 08, 2024 Team Status: Active Member Role/Relationship Status Dates Giancarlo Posadas VSC, ASSISTANT ASSOCIATE PROFESSOR-C Primary care physician Active Start: November 22, 2024 Health Risk Assessment Attending physician Active Start: November 22, 2024 Health Risk Assessment Referring Provider Active Start: November 22, 2024 Team Status: Inactive Member Role/Relationship Status Dates Giancarlo Posadas VSC, ASSISTANT ASSOCIATE PROFESSOR-C Primary care physician Active Start: November 29, 2024 End: November 29, 2024 Marcelo Beam VSC, ASSISTANT ASSOCIATE PROFESSOR-C Attending physician Active Start: November 29, 2024 End: November 29, 2024 Zebulun Beam VSC, ASSISTANT ASSOCIATE PROFESSOR-C Referring Provider Active Start: November 29, 2024 End: November 29, 2024 Team Status: Inactive Member Role/Relationship Status Dates Giancarlo Posadas VSC, ASSISTANT ASSOCIATE PROFESSOR-C Primary care physician Active Start: December 07, 2024 End: December 07, 2024 Adriana Irene ASSISTANT ASSOCIATE PROFESSOR-C Attending physician Active Start: December 07, 2024 End: December 07, 2024 Adriana Irene , ASSISTANT ASSOCIATE PROFESSOR-C Referring Provider Active Start: December 07, 2024 End: December 07, 2024 Team Status: Inactive Member Role/Relationship Status Dates Giancarlo Posadas VSC, ASSISTANT ASSOCIATE PROFESSOR-C Primary care physician Active Start: December 08, 2024 End: December 08, 2024 Adriana Irene ASSISTANT ASSOCIATE PROFESSOR-C Attending physician Active Start: December 08, 2024 End: December 08, 2024 Adriana Irene , ASSISTANT ASSOCIATE PROFESSOR-C Referring Provider Active Start: December 08, 2024 End: December 08, 2024 Team Status: Inactive Member Role/Relationship Status Dates Giancarlo Posadas VSC, ASSISTANT ASSOCIATE PROFESSOR-C Primary care physician Active Start: December 10, 2024 End: December 10, 2024 Giancarlo Posadas VSC, ASSISTANT ASSOCIATE PROFESSOR-C Referring Provider Active S tart: December 10, 2024 End: December 10, 2024 Chana Bansal CNM Attending physician Active Start: December 10, 2024 End: December 10, 2024 Team Status: Inactive Member Role/Relationship Status Dates Giancarlo ROSA, ASSISTANT ASSOCIATE PROFESSOR-C Primary care physician Active Start: December 10, 2024 End: December 10, 2024 Chana Bansal CNM Attending physician Active Start: December 10, 2024 End: December 10, 2024 Team Status: Active Member Role/Relationship Status Dates Giancarlo Posadas NP, ASSISTANT ASSOCIATE PROFESSOR-C Primary care physician Active Start: January 03, 2025 Dr. Stephane Melgar MD Attending physician Active Start: January 03, 2025 Dr. Stephane Melgar MD Referring Provider Active S tart: January 03, 2025 Team Status: Inactive Member Role/Relationship Status Dates Giancarlo Posadas VSC, ASSISTANT ASSOCIATE PROFESSOR-C Primary care physician Active Start: January 06, 2025 End: January 06, 2025 Adriana Irene , ASSISTANT ASSOCIATE PROFESSOR-C Attending physician Active Start: January 06, 2025 End: January 06, 2025 Adrianaute Montgomeryhof , ASSISTANT ASSOCIATE PROFESSOR-C Referring Provider Active Start: January 06, 2025 End: January 06, 2025 Team Status: Active Member Role/Relationship Status Dates Giancarlo Posadas VSC, ASSISTANT ASSOCIATE PROFESSOR-C Primary care physician Active Start: January 06, 2025 Adriana Irene , ASSISTANT ASSOCIATE PROFESSOR-C Referring Provider Active Start: January 06, 2025 Adriana Irene , ASSISTANT ASSOCIATE PROFESSOR-C Nurse Practitioner Active Start: January 06, 2025 Dr. Maximiliano Murphy MD Attending physician Active Start: January 06, 2025 Team Status: Inactive Member Role/Relationship Status Dates Giancarlo Posadas VSC, ASSISTANT ASSOCIATE PROFESSOR-C Primary care physician Active Start: January 10, 2025 End: January 10, 2025 Giancarlo Posadas VSC, ASSISTANT ASSOCIATE PROFESSOR-C Referring Provider Active S tart: January 10, 2025 End: January 10, 2025 Dr. Stephane Melgar MD Attending physician Active Start: January 10, 2025 End: January 10, 2025 FOR RECORDS PERTAINING TO PATIENTS WHO ARE [...] BE BASED ON THE PRIMARY CLINICAL RECORDS. [email or web address] [facility]. provides no warranty or guarantee of the accuracy or completeness of information in this document.
[2025-04-18] MEDS: Lactated Ringers 1,000 ML 15 ML IV (06:06)
--- NOTE | 2025-04-18 06:17 | PCM.HP.STD ---
HPI - General General Date of Admission: 04/18/25 Date of Service: 04/18/25 Chief Complaint: Dysphagia HPI Narrative ANGELA BUI, is a 49 F who presents [ Chief Complaint: Difficulty swallowing BGI established in 2022 with abd pain and nausea. Pt is s/p shayy-en-Y gastrojejunostomy. EGD 03.22.22 Shayy-en-Y gastrojejunostomy; non-bleeding gastric ulcer, mild gastritis; irregular Zline 33cm; tortuous esophagus. Metaplasia, H.Pylori neg. CT abd/pel 10.29.22 with contrast hepatic steatosis; s/p cholecystectomy and gastric bypass; distal gastric/duodenal wall thickening EGD 10.29.22 Shayy-en-Y gastrojejunostomy with ulceration, heater probe; two 3mm bleeding AVM, heater probe. No specimens. EGD and Colonoscopy 04.24.23 EGD - Z-line variable, 39 cm from the incisors. Biopsied. Shayy-en-Y gastrojejunostomy with gastrojejunal anastomosis characterized by erythema. Biopsied. Normal examined jejunum. Biopsied. Colon - Preparation of the colon was fair. Diverticulosis in the recto-sigmoid colon and in the sigmoid colon. Stool in the recto-sigmoid colon, in the sigmoid colon and in the ascending colon. The entire examined colon is normal on direct and retroflexion views. The examination was otherwise normal on direct and retroflexion views. No specimens collecte Liver elastography 07.18.23; 1. Liver stiffness measures 10.7 kPa compatible with F2-F3 (Mild to moderate liver fibrosis) Metavir score. Last OV 03.17.24; Pt having alternating constipation and diarrhea. Taking Linzess and miralax. Having epigastric pain that feels similar to previous ulcer. EGD 05.19.24; - No gross lesions in the entire esophagus. - Medium-sized hiatal hernia. - Shayy-en-Y gastrojejunostomy with gastrojejunal anastomosis characterized by erythema, friable mucosa and inflammation. - No specimens collected. OV 09.09.; Pt Feeling well today.She endorses some abd pain and continued constipation. She is taking Linzess 290 mcg daily which gives her a bm every day to every other day. She will have to take dulcolax on occasion to have a bm. She feels like bread makes her constipation worse. Since starting semaglutide she has noticed some worsening constipation. Recommend continuing Linzess and PPI. Liver elastography 09/27/2024 8.3 K PA OV 03/15/2025 patient having dysphagia over the past few weeks. She has difficulty swallowing with every meal. She is having to regurgitate her food on occasion. Denies any associated upper GI symptoms. Patient has alternating bowel movements with some days of constipation and some days of loose stools. She continues with Linzess 290 mcg daily. [facility] Medical History Anxiety Back pain Blood disorder Syncope MGUS (monoclonal gammopathy of unknown significance) GI bleed Wears glasses Thyroid disease Low iron Migraine headache History of hiatal hernia History of IBS Non-smoker Vocal cord dysfunction Breast cancer screening Hemangioma Chronic left hip pain Right thyroid nodule GERD (gastroesophageal reflux disease) Essential hypertension DM 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 Home Medications ?Medication ?Instructions ?Recorded ?Last Taken ?Type calcium carbonate (Calcium 600) 600 mg PO DAILY 09/25/20 04/17/25 History cholecalciferol (vitamin D3) 10 10 mcg PO DAILY 09/25/20 04/17/25 History mcg (400 unit) capsule cyanocobalamin (vitamin B-12) 50 50 mcg PO DAILY 09/25/20 04/17/25 History mcg tablet (Vitamin B-12) magnesium 200 mg tablet 200 mg PO DAILY 09/25/20 04/17/25 History potassium 99 mg PO DAILY 12/15/20 04/17/25 History sumatriptan succinate 50 mg tablet See Rx Instructions PO .COMPLEX 07/24/21 05/18/24 Rx (Imitrex) #14 tabs linaclotide 290 mcg capsule 290 mcg PO DAILY PRN PRN Diarrhea 09/05/22 05/18/24 Rx (Linzess) #90 caps cyclobenzaprine 10 mg tablet See Rx Instructions .Route 01/29/23 04/17/25 Rx .COMPLEX #60 tabs ferrous sulfate 325 mg (65 mg 325 mg PO DAILY 04/01/23 04/13/25 History iron) tablet fexofenadine 180 mg tablet 180 mg PO DAILY 04/18/23 04/17/25 History (Aller-Fex) hydroxyzine HCl 25 mg tablet 25 mg PO PRN PRN itching 04/18/23 Unknown History buspirone 5 mg tablet 10 mg PO TID 09/12/23 04/17/25 History ursodiol 250 mg tablet 250 mg PO BID #60 tabs 09/12/23 04/17/25 Rx semaglutide 1 mg/dose (4 mg/3 mL) 1 mg subcut MOFR 12/30/23 04/10/25 History subcutaneous pen injector amlodipine 5 mg tablet 10 mg PO QHS 07/06/24 04/17/25 History duloxetine 20 mg capsule,delayed 20 mg PO BID Fibromyalgia 09/09/24 04/17/25 History release (Cymbalta) vitamin E (dl, acetate) 450 mg 450 mg PO QDAY 09/09/24 04/17/25 History (1,000 unit) capsule cariprazine 1.5 mg capsule 1.5 mg PO DAILY 10/29/24 04/17/25 History (Vraylar) lorazepam 0.5 mg tablet (Ativan) 0.5 mg PO Q12H PRN sleep 10/29/24 Unknown History trazodone 50 mg tablet 75 mg PO QHS 01/10/25 04/17/25 History pantoprazole 40 mg tablet,delayed 40 mg PO BID #120 TABLETS 01/24/25 04/17/25 Rx release sucralfate 1 gram tablet 1 g PO TIDAC 30 days #90 tabs 03/22/25 04/17/25 Rx tenapanor 50 mg tablet (Ibsrela) 50 mg PO BID #60 tabs 04/05/25 04/17/25 Rx Allergy/AdvReac Type Severity Reaction Status Date / Time NSAIDS (Non-Steroidal Allergy unknown Verified 04/18/25 05:48 Anti-Inflamma Penicillins Allergy Rash Verified 04/18/25 05:48 sulfamethoxazole (From Allergy rash Verified 04/18/25 05:48 Bactrim) trimethoprim (From Bactrim) Allergy rash Verified 04/18/25 05:48 Family History Aunt Cancer uterine cancer Brother Asthma Sister Autoimmune disorder Other Breast cancer Diabetes Heart disease Hypertension Myocardial infarction Parkinson disease Surgical History History of esophagogastroduodenoscopy (EGD) Hx of surgical procedure Hx of colonoscopy History of esophagogastroduodenoscopy (EGD) History of surgical removal of ganglion cyst History of hysterectomy Gastric bypass status for obesity H/O section S/P thyroid surgery Hx of cholecystectomy Social History adopted: No household members: spouse and children number of children: 2 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 current occupational exposures/hazards: No pets and animals: Yes history of recent travel: No sexually active: Yes Smoking Status: Never smoker second hand exposure: No alcohol intake: never well-balanced diet: about half the time caffeine: Yes eating out: 1-3 times/week during the past year weight has: decreased > 10 lbs seatbelt use: always do you feel safe at home: Yes ROS Constitutional Constitutional: Denies fatigue, fever(s), poor appetite, weight gain or weight loss Gastrointestinal Gastrointestinal: Denies belching, bloating, change in bowel habits, change in stool character, chewing difficulty, coffee ground emesis, constipation, cramping, diarrhea, dyspepsia, dysphagia, early satiety, excessive flatus, fecal incontinence, heartburn, hematemesis, hematochezia, hemorrhoids, loose stools, melena, nausea, odynophagia, rectal bleeding, tenesmus, vomiting or weight changes Patient's Goals Of Care . What would you like to achieve or improve as a result of your hospital stay?: None Vital Signs Vital Signs Vital Signs: 04/18/25 05:54 04/18/25 05:54 Temperature 99.4 F H Temperature Source Temporal Pulse Rate 66 Respiratory Rate 16 Respiratory Pattern Normal Blood Pressure 108/78 Blood Pressure Mean 88 Blood Pressure Source Monitor Blood Pressure Position Semi-Fowlers Blood Pressure Location Left Arm Pulse Ox 100 Oxygen Delivery Method Room Air Weight Weight: 218 lb 4.122 oz Body Mass Index (BMI) 37.4 Physical Exam Const alert, oriented x3, no apparent distress and healthy appearing General Appearance: cooperative GI normal to inspection, nondistended, normoactive bowel sounds, soft to palpation, non-tender and non-distended Percussion: normal to percussion Rectal Exam: deferred Assessment & Plan Assessment/Plan (1) Dysphagia: PLAN: Assessment and Plan Assessment and Plan (1) Constipation: Status: Acute Plan: Angela is a 49-year-old female patient with past medical history of thyroid nodule, constipation, hypertension, gastric bypass, ganglion cyst, MGUS and dysphagia here today for follow-up. Patient having worsening dysphagia recently with difficulty swallowing during each meal. She has had to regurgitate her food on occasion. Last EGD in April 2024 demonstrated normal esophagus, hiatal hernia, anastomosis characterized by erythema friable mucosa and inflammation. Recommended repeat EGD due to worsening dysphagia. Patient continues to have alternating constipation and loose stool while being on Linzess 290 mcg daily. I recommended trialing Ibsrela 50 mg twice a day and have provided her samples. Will send in prescription if it is helpful. In regard to her fatty liver, she continues with ursodiol, vitamin E and semaglutide. Liver elastography from September 2024 indicating a liver stiffness of 8.3 K PA which was improved. I counseled on lifestyle changes including diet and exercise. Recommend repeat elastography in September 2025 for further monitoring. - EGD - Discontinue Linzess, trial Ibsrela - Continue ursodiol and vitamin E - repeat liver elastography in September 2025 - Follow-up Note: Portions of this note may have been selectively carried forward from previous documentation to ensure continuity and accuracy of the clinical record. All imported information has been reviewed and updated as necessary to reflect the current patient status, findings, and clinical decision-making for this encounter. [employer] speech recognition lift operator software was used to create portions of this document. Sound alike and misspelled words, as well as other lift operator errors may be contained in the documentation. (2) Fatty liver: Status: Chronic (3) Dysphagia: Status: Acute Comment: Patient is a 47-year-old with recurrent complaints of dysphagia and thyroid ultrasound shows new growth of nodules. See above for complete details ]
--- NOTE | 2025-04-18 06:27 | PCM.PRE.AN2 ---
ASA Classification* ASA Classification ASA Classification: 2 Assessment & Plan Anesthesia* Anesthesia Assessment Anesthesia Assessment: Discussed sedation and/or anesthesia options, risks, benefits, and alternatives with patient/parents/legal guardian/POA. Questions invited. The patient/parents/legal guardian/POA seems to understand and agrees to proceed with anesthesia plan. Reviewed the physical assessment, medical history, allergy history and patient home medications list prior to surgery/procedure/anesthetic and documented any changes. Performed airway and anesthesia risk assessments. Anesthesia Type Anesthesia Type: MAC History Source History Obtained from:: Patient and Chart Anesthesia Focused Assessment* Temperature: 99.4 F Pulse Rate: 66 Blood Pressure: 108/78 Respiratory Rate: 16 Pulse Ox: 100 Oxygen Delivery Method: Room Air Airway Assessment Mouth opens: >3 cm Mallampati Score: II Teeth Condition: Caps/Crowns and Missing Neck Range of motion (ROM): Full ROM Labs Anesthesia Preop lab: CBC WBC, (4.4-11.0) 9.0 K/mm3 01/03/25, :18 RBC, (4.2-5.4) 4.71 M/mm3 01/03/25, 09:18 Hgb, (12.0-15.0) 14.5 g/dL 01/03/25, :18 Hct, (37-47) 42.7 % 01/03/25, :18 Plt Count, (150-450) 338 K/mm3 01/03/25, 09:18 CHEMISTRY Potassium, (3.3-5.1) 4.1 mmol/L 01/03/25, :18 Sodium, (133-145) 139 mmol/L 01/03/25, 09:18 Magnesium, (1.6-2.6) 2.1 mg/dL 03/07/23, 12:15 Phosphorus, (2.7-4.5) 2.5 mg/dL L 11/22/24, 07:36 BUN, (4-19) 8 mg/dL 01/03/25, 09:18 Creatinine, (0.70-1.20) 0.64 mg/dL L 01/03/25, 09:18 Glucose, (70-99) 93 mg/dL 01/03/25, :18 POC Glucose, (74-106) 84 mg/dL 07/26/24, 09:19 TSH, (0.300-4.200) 2.070 uIU/mL 09/15/24, 06:14 COAG PT, (11.7-14.9) 13.3 SECONDS 07/07/23, 14:19 Pre-Assessment Diagnosis/Proposed Procedure Planned Operative Procedure(s): EGD Anesthesia History Anesthesia History - diversional therapist's assistant: Anesthesia History - diversional therapist's assistant Hx Hospitalization No 04/12/25 10:36 Any Problems With Anesthesia Yes: NAUSEA NO PROBLEM WITH 04/12/25 10:36 07/2024 Cholinesterase deficiency No 04/12/25 10:36 You/Your Family Experience No 04/12/25 10:36 fever (hyperthermia) with Relationship Recent Exposure to Contagious No 04/18/25 05:54 Disease Does patient have nerve No 04/12/25 10:36 stimulator Patient instructed to have device shut off --Does patient have Pacemaker No 04/18/25 05:54 or ICD? When Was Last Pacemaker Check QUESTION #4 FULL TEXT: You/Your Family Experience fever (hyperthermia) with Anesthesia Last Oral Intake Last Oral intake: Last Oral Intake NPO since 20:30 04/18/25 05:54 Meds taken in AM with sips of No 04/18/25 05:54 water? Meds patient instructed to take am of surgery PONV PONV - diversional therapist's assistant: PONV - diversional therapist's assistant Female Yes 04/12/25 10:31 HX of Motion Sickness Yes 04/12/25 10:31 HX of N/V After Surgery No 04/12/25 10:31 Non-Smoker Yes 04/12/25 10:31 Duration of Surgery greater No 04/12/25 10:31 than 60 minutes Number of Risk Factors 3 04/12/25 10:31 PONV Score Moderate Risk 04/12/25 10:31 Height & Weight Height & Weight: Anesthesia: Height & Weight Height 5 ft 4 in 04/18/25 05:54 Weight: 99 kg 04/18/25 05:54 Body Mass Index (BMI) 37.4 04/18/25 05:54 Respiratory Assessment Respiratory Assessment - diversional therapist's assistant: Respiratory Tract Infection Hx - diversional therapist's assistant Hx Respiratory Tract Infection No 04/12/25 10:36 STOP Sleep Apnea STOP Sleep Apnea - diversional therapist's assistant: STOP Sleep Apnea - diversional therapist's assistant Hx Hypertension Yes: CONTROLLED WITH MED 04/12/25 10:36 Hx Sleep Apnea Yes 04/12/25 10:36 CPAP Yes 04/12/25 10:36 BIPAP No 04/12/25 10:36 Do you snore loudly (louder than talking or can be heard Do you often feel tired/ fatigued/ sleepy during daytime? Has anyone observed you stop breathing during sleep? STOP Results Positive 04/12/25 10:31 QUESTION #5 FULL TEXT : Do you snore loudly (louder than talking or can be heard through closed doors)? 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 - diversional therapist's assistant: Tobacco Use History - diversional therapist's assistant Tobacco Use Smoking Status Never smoker 04/12/25 10:36 Hx Tobacco Use No 04/12/25 10:36 Years Smoking Packs Smoked per Day Smoking Cessation Date was within the last 15 years Hx Smoking Cessation Date Hx Smoking Cessation Counseling Hematologic Medial History Hematologic Hx - diversional therapist's assistant: Hematologic Medical Hx - combination man Hx of Blood Transfusion No 04/12/25 10:31 Hx of Transfusion in last 3 No 04/12/25 10:31 Months Date of Last Transfusion (if within last 3 months) Ever experience any problems No 04/12/25 10:31 with transfusion(s)? Specify any problems Hx of Preganancy in last 3 No 04/12/25 10:31 Months Nurse Filling Out Transfusion VCHRISTIN 04/12/25 10:31 & Questions: Date: 04/12/25 04/12/25 10:31 Time: 10:32 04/12/25 10:31 Patient unable to answer at this time (ie. confused, unrespo /Reproduction History /Reproductive History - diversional therapist's assistant: /Reproductive Hx- diversional therapist's assistant Hx Now No 04/12/25 10:31 Gestational Age (in weeks): EDC: Hx Hx Para Hx Section SAB No 04/12/25 10:36 Does the father of the baby or his family experience fever w Father of the baby Malignant Hypertension history comment Active Medications Active Medications: Current Medications Generic Name Dose Route Start Last Admin Trade Name Freq PRN Reason Stop Dose Admin Lactated Ringer's 1,000 mls @ 15 mls/hr 04/18/25 06:00 04/18/25 06:06 IV 15 mls/hr .Q48H GRISELDA Administration PFSH Medical History Anxiety Back pain Blood disorder Syncope MGUS (monoclonal gammopathy of unknown significance) GI bleed Wears glasses Thyroid disease Low iron Migraine headache History of hiatal hernia History of IBS Non-smoker Vocal cord dysfunction Breast cancer screening Hemangioma Chronic left hip pain Right thyroid nodule GERD (gastroesophageal reflux disease) Essential hypertension DM 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 Home Medications ?Medication ?Instructions ?Recorded ?Last Taken ?Type calcium carbonate (Calcium 600) 600 mg PO DAILY 09/25/20 04/17/25 History cholecalciferol (vitamin D3) 10 10 mcg PO DAILY 09/25/20 04/17/25 History mcg (400 unit) capsule cyanocobalamin (vitamin B-12) 50 50 mcg PO DAILY 09/25/20 04/17/25 History mcg tablet (Vitamin B-12) magnesium 200 mg tablet 200 mg PO DAILY 09/25/20 04/17/25 History potassium 99 mg PO DAILY 12/15/20 04/17/25 History sumatriptan succinate 50 mg tablet See Rx Instructions PO .COMPLEX 07/24/21 05/18/24 Rx (Imitrex) #14 tabs linaclotide 290 mcg capsule 290 mcg PO DAILY PRN PRN Diarrhea 09/05/22 05/18/24 Rx (Linzess) #90 caps cyclobenzaprine 10 mg tablet See Rx Instructions .Route 01/29/23 04/17/25 Rx .COMPLEX #60 tabs ferrous sulfate 325 mg (65 mg 325 mg PO DAILY 04/01/23 04/13/25 History iron) tablet fexofenadine 180 mg tablet 180 mg PO DAILY 04/18/23 04/17/25 History (Aller-Fex) hydroxyzine HCl 25 mg tablet 25 mg PO PRN PRN itching 04/18/23 Unknown History buspirone 5 mg tablet 10 mg PO TID 09/12/23 04/17/25 History ursodiol 250 mg tablet 250 mg PO BID #60 tabs 09/12/23 04/17/25 Rx semaglutide 1 mg/dose (4 mg/3 mL) 1 mg subcut MOFR 12/30/23 04/10/25 History subcutaneous pen injector amlodipine 5 mg tablet 10 mg PO QHS 07/06/24 04/17/25 History duloxetine 20 mg capsule,delayed 20 mg PO BID Fibromyalgia 09/09/24 04/17/25 History release (Cymbalta) vitamin E (dl, acetate) 450 mg 450 mg PO QDAY 09/09/24 04/17/25 History (1,000 unit) capsule cariprazine 1.5 mg capsule 1.5 mg PO DAILY 10/29/24 04/17/25 History (Vraylar) lorazepam 0.5 mg tablet (Ativan) 0.5 mg PO Q12H PRN sleep 10/29/24 Unknown History trazodone 50 mg tablet 75 mg PO QHS 01/10/25 04/17/25 History pantoprazole 40 mg tablet,delayed 40 mg PO BID #120 TABLETS 01/24/25 04/17/25 Rx release sucralfate 1 gram tablet 1 g PO TIDAC 30 days #90 tabs 03/22/25 04/17/25 Rx tenapanor 50 mg tablet (Ibsrela) 50 mg PO BID #60 tabs 04/05/25 04/17/25 Rx Allergy/AdvReac Type Severity Reaction Status Date / Time NSAIDS (Non-Steroidal Allergy unknown Verified 04/18/25 05:48 Anti-Inflamma Penicillins Allergy Rash Verified 04/18/25 05:48 sulfamethoxazole (From Allergy rash Verified 04/18/25 05:48 Bactrim) trimethoprim (From Bactrim) Allergy rash Verified 04/18/25 05:48 Family History Aunt Cancer uterine cancer Brother Asthma Sister Autoimmune disorder Other Breast cancer Diabetes Heart disease Hypertension Myocardial infarction Parkinson disease Surgical History History of esophagogastroduodenoscopy (EGD) Hx of surgical procedure Hx of colonoscopy History of esophagogastroduodenoscopy (EGD) History of surgical removal of ganglion cyst History of hysterectomy Gastric bypass status for obesity H/O section S/P thyroid surgery Hx of cholecystectomy Social History adopted: No household members: spouse and children number of children: 2 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
--- NOTE | 2025-04-18 06:30 | EGD_PTH ---
PATIENT: ANGELA BUI LOC: EN U#:[id number] AGE/SX: 49/F ROOM: RE04/18/[address]: Dr. Ramez Villatoro DO : 1975 BED: DIS: 04/18/2025 SPEC #: [id number] RECD: 04/18/25 08:22 STATUS: RAY ALY #: [id number] JABIER: 04/18/25 06:[address]: Ramez Villatoro DEPT: SURGICAL PATHOLOGY RECD BY: Chioma Gunderson ENTERED: 04/18/25 11:10 SP TYPE: EGD BIOPSY OT DR: Giancarlo Posadas, ALEXANDREA Tissues: Esophagus, NOS Procedures: Surgery Specimen Level IV HEADER OPERATION: EGD with Biopsy and Dilalation PRE-OP DIAGNOSIS: Dysphagia TISSUE SUBMITTED: Distal Esophagus Biopsy MICROSCOPIC DIAGNOSIS A. Esophagus, distal, biopsy: - Squamous mucosa with reactive changes, negative for eosinophils. - Scant columnar mucosa with reactive epithelial change, negative for goblet cell metaplasia. MICROSCOPIC DESCRIPTION Slides are reviewed. GROSS DESCRIPTION Received is one container labeled with the patient name and designated distal esophagus biopsy. The specimen consists of two irregular fragments of light quesada soft tissue that in aggregate measure 0.6 x 0.4 x 0.2 cm. The specimen is totally submitted in one cassette. CPT: 71964 CW:04/18/2025
--- NOTE | 2025-04-18 06:57 | OP.EGD_ITS ---
Patient Name: Catherine Jaramillo Procedure Date: 04/18/2025 6:16 AM Date of : 1975 Age: 49 Procedure: Upper GI endoscopy Indications: Dysphagia Providers: Ramez Villatoro DO Referring MD: Giancarlo Posadas enrico, Keycase Assembler-c Medicines: Monitored Anesthesia Care Patient Profile: This is a 49 year old female. Refer to note in patient chart for documentation of history and physical. Patient has symptoms of dysphagia with both liquids and solids. Complications: No immediate complications. Procedure: Pre-Anesthesia Assessment: - Prior to the procedure, a History and Physical was performed, and patient medications and allergies were reviewed. The patient is competent. The risks and benefits of the procedure and the sedation options and risks were discussed with the patient. All questions were answered and informed consent was obtained. Patient identification and proposed procedure were verified by the physician in the pre-procedure area. Mental Status Examination: alert and oriented. Airway Examination: normal oropharyngeal airway and neck mobility. Respiratory Examination: clear to auscultation. CV Examination: normal. Prophylactic Antibiotics: The patient does not require prophylactic antibiotics. Prior Anticoagulants: The patient has taken no anticoagulant or antiplatelet agents. ASA Grade Assessment: II - A patient with mild systemic disease. After reviewing the risks and benefits, the patient was deemed in satisfactory condition to undergo the procedure. The anesthesia plan was to use monitored anesthesia care (MAC). Immediately prior to administration of medications, the patient was re-assessed for adequacy to receive sedatives. The heart rate, respiratory rate, oxygen saturations, blood pressure, adequacy of pulmonary ventilation, and response to care were monitored throughout the procedure. The physical status of the patient was re-assessed after the procedure. After obtaining informed consent, the endoscope was passed under direct vision. Throughout the procedure, the patient's blood pressure, pulse, and oxygen saturations were monitored continuously. The Endoscope was introduced through the mouth, and advanced to the anastomosis site of gastric bypass. The upper GI endoscopy was accomplished without difficulty. The patient tolerated the procedure well. Scope In: 6:45:54 AM Scope Out: 6:51:15 AM Total Procedure Duration Time 0 hours 5 minutes 21 seconds Findings: Abnormal motility was noted in the esophagus. The cricopharyngeus was abnormal. There are extra peristaltic waves in the esophageal body. The distal esophagus/lower esophageal sphincter is spastic, but gives up passage to the endoscope. Biopsies were taken with a cold forceps for histology. Verification of patient identification for the specimen was done. Estimated blood loss was minimal. A guidewire was placed and the scope was withdrawn. Dilation was performed with a Savary dilator with no resistance at 57 Fr. The dilation site was examined and showed mild mucosal disruption. Evidence of a gastric bypass was found. A gastric pouch with a normal size was found. The staple line appeared intact. The gastrojejunal anastomosis was characterized by healthy appearing mucosa. This was traversed. The [id number] limb was characterized by healthy appearing mucosa. The examined jejunum was normal. Impression: - Abnormal esophageal motility. Biopsied. Dilated. - Gastric bypass with a normal-sized pouch and intact staple line. Gastrojejunal anastomosis characterized by healthy appearing mucosa. - Normal examined jejunum. Recommendation: - Discharge patient to home. - Resume previous diet. - Continue present medications. - Await pathology results. Procedure Code(s): --- Professional --- 86432, Esophagogastroduodenoscopy, flexible, transoral; with insertion of guide wire followed by passage of dilator(s) through esophagus over guide wire 18790, 59,51, Esophagogastroduodenoscopy, flexible, transoral; with biopsy, single or multiple CPT copyright 2021 [employer]. All rights reserved. The codes documented in this report are preliminary and upon cashier checker review may be revised to meet current compliance requirements. Ramez Villatoro DO 04/18/2025 6:55:53 AM This report has been signed electronically. Number of Addenda: 0 Note Initiated On: 04/18/2025 6:16 AM
--- NOTE | 2025-04-18 06:57 | OP.PROVAT_ITS ---
04/18/[address] [facility] Case Manager-c Re : Upper GI endoscopy procedure for Catherine Ariasr Katharina This procedure was performed on Friday, April 18, 2025. My impressions and recommendations are as follows: Impressions : - Abnormal esophageal motility. Biopsied. Dilated. - Gastric bypass with a normal-sized pouch and intact staple line. Gastrojejunal anastomosis characterized by healthy appearing mucosa. - Normal examined jejunum. Recommendations : - Discharge patient to home. - Resume previous diet. - Continue present medications. - Await pathology results. My findings are described in the full procedure note, which is enclosed. If I can be of further assistance, please feel free to contact me at . Sincerely, Ramez Villatoro, 04/18/2025 6:55:53 AM This report has been signed electronically.
--- NOTE | 2025-04-18 07:02 | PCM.POST.ANE ---
Anesthesia: Postop Eval I Current Vital Signs Temperature: 97.6 F Pulse Rate: 68 Blood Pressure: 104/63 Respiratory Rate: 16 Pulse Ox: 97 Oxygen Delivery Method: Room Air Assessment Airway patent: Yes Spontaneous unlabored respirations: Yes Mental status: Awake and Calm nausea: No Vomiting: No Anesthesia Complication: No Fluid Hydration Crystalloid volume administer (ml): 400 Total IV fluid infused: 400 Progress Note Anesthesia document: Postop Eval 1 completed: Yes
--- NOTE | 2025-04-18 12:11 | PCM.POSTANE2 ---
Anesthesia Postop Eval I Sum Postop Eval Completion status Anesthesia document: Postop Eval 1 completed: Yes Anesthesia Postop Eval I Summary Anesthesia Postop Eval I Summary: Anesthesia Postop Eval I: Assessment Summary Airway patent Yes 04/18/25 07:02 [email or web address] Spontaneous unlabored Yes 04/18/25 07:02 [email or web address] respirations Mental status Awake,Calm 04/18/25 07:02 [email or web address] nausea No 04/18/25 07:02 [email or web address] Vomiting No 04/18/25 07:02 [email or web address] Anesthesia Postop Eval I: Fluid Summary Crystalloid volume administer 400 04/18/25 07:02 [email or web address] (ml) Colloids volume administered ( ml) Blood Product volume administered (ml) Total IV fluid infused 400 04/18/25 07:02 [email or web address] Anesthesia Postop Eval I: Summary Notes Anesthesia Complication No 04/18/25 07:02 [email or web address] Anesthesia Complication Comment: Post-operative progress note Anesthesia: Postop Eval II Evaluation Mental status: Awake and Calm Pain Level: 1 nausea: No Vomiting: No Complications Anesthesia Complication: No
== END 2025-04-18 07:31 | disposition home or self-care (01) ==
LOC: EN 05:20 → AC 05:22
PROVIDERS: PCP Nurse Practitioner Family; Referring Provider Nurse Practitioner Family; Visit Provider Internal Medicine Gastroenterology
PROC: 0DJ08ZZ Inspection of Upper Intestinal Tract, Via Natural or Artificial Opening Endoscopic (ICD-10-PCS; CPT 43235; principal; 2025-04-18 06:25)
DX: K22.4 Dyskinesia of esophagus (principal); E11.9 Type 2 diabetes mellitus without complications; K57.30 Diverticulosis of large intestine without perforation or abscess without bleeding; I10 Essential (primary) hypertension; E04.2 Nontoxic multinodular goiter; K21.9 Gastro-esophageal reflux disease without esophagitis; Z98.84 Bariatric surgery status; Z90.49 Acquired absence of other specified parts of digestive tract; Z79.899 Other long term (current) drug therapy
CPT/HCPCS: 43248; 43239; 88305; C1769; J2405